=== PATIENT | female | born 1940 | race Caucasian/White ===

== ENCOUNTER → 2016-10-03 | Outpatient (CLI) | payer OTHER, MEDICARE ==
[~2016-10-03] MED LIST: CLX40 PO; COCO1CAP PO; CONJ0.453 PO; CYAN500T13 PO; LEVO100T PO; LPD600 PO; OMEG12006 PO; VITA400C15 PO
== END | disposition home or self-care (01) ==
LOC: C.LAB 12:56
PROVIDERS: ATTEND Internal Medicine
DX: E03.9 Hypothyroidism, unspecified (principal)

== ENCOUNTER → 2016-10-05 | Outpatient (CLI) | payer OTHER, MEDICARE ==
--- NOTE | 2016-10-05 12:37 | DIAGNOSTIC IMAGING REPORT ---
CHEST 2 VIEWS ROUTINE CLINICAL HISTORY: R05 [id number] Current [id number] dyspnea COMPARISON STUDY: 06/25/2015 FINDINGS: Mild chronic interstitial change throughout both hemithoraces. No focal infiltrate. Diaphragms smooth. IMPRESSION: Chronic change. No acute process. Electronically signed by: Dawson Dowell M.D. 10/05/2016 12:35 PM
== END | disposition home or self-care (01) ==
LOC: C.RADBC 12:16
PROVIDERS: ATTEND Internal Medicine
DX: F17.200 Nicotine dependence, unspecified, uncomplicated (principal); R05 Cough

== ENCOUNTER 2016-12-25 16:54 | Emergency (ER) | payer OTHER, MEDICARE ==
[~2016-12-25] VITALS: Ht 160 cm; Wt 66.1 kg
[2016-12-25 17:03] VITALS: BP 134/70; PULSE 75; TEMP 36.9; O2SAT 95; Ht 160 cm; Wt 66.1 kg
== END 2016-12-25 18:50 | disposition left against medical advice (07) ==
LOC: C.EDB 16:55
DX: R10.9 Unspecified abdominal pain (principal)

== ENCOUNTER → 2016-12-27 | Outpatient (CLI) | payer OTHER, MEDICARE ==
[~2016-12-27] MED LIST changes: +OPTIRAY 320 IV PRN
[2016-12-27 16:49] LABS: BASO % 0.8 %; BASO ABS # 0.06 K/uL (0-0.2); COMPLETE YES; EOS % 3.3 %; HEMATOCRIT 39.5 % (37-47); IG% 0.4 %; LYMPH % 28.4 %; LYMPH ABS # 2.25 K/uL (1.2-3.4); MEAN CORPUSCULAR HEMOGLOBIN 30.4 pg (25-34); MEAN CORPUSCULAR HGB CONC 34.2 g/dl (32-36); MEAN PLATELET VOLUME 9.2 fL (7.4-10.4); MONO % 9.2 %; NEUT % 57.9 %; PLATELET COUNT 295 K/uL (130-400); RED BLOOD COUNT 4.44 M/uL (4.2-5.4); WHITE BLOOD COUNT 7.91 K/uL (4.8-10.8)
[2016-12-27 17:08] LABS: BLOOD UREA NITROGEN 17 mg/dl (7-18); BUN/CREATININE RATIO 19.2 (10-20); CALCIUM 9.3 mg/dl (8.5-10.1); CARBON DIOXIDE 30 mmol/L (21-32); CHLORIDE 107 mmol/L (98-107); CREATININE 0.86 mg/dl (0.60-1.20); GLUCOSE 89 mg/dl (70-99); POTASSIUM 4.5 mmol/L (3.5-5.1); SODIUM 141 mmol/L (136-145)
--- NOTE | 2016-12-27 19:15 | DIAGNOSTIC IMAGING REPORT ---
ABDOMEN AND PELVIS CT WITH IV AND ORAL CONTRAST CT DOSE: HISTORY: Pain LAB FIRST, R10.9 Abdominal pain of multiple [id number] TECHNIQUE: Multiaxial CT images of the abdomen and pelvis were performed following the use of intravenous and oral contrast. COMPARISON STUDY: 10/24/2013 FINDINGS: Lung bases are clear. Liver spleen and pancreas are unremarkable. Stable enlargement of the left adrenal. Kidneys enhance uniformly. Small cortical cyst lower pole right kidney unchanged. Bowel pattern is nonobstructive. The appendix is normal. Chronic sigmoid diverticulosis. Increased fecal load within the descending and sigmoid colonic regions. Several small uterine fibroids. Bladder is midline. IMPRESSION: 1. Chronic sigmoid diverticulosis with no evidence for acute diverticulitis. 2. Increased fecal load within the sigmoid 3. Nonobstructive bowel pattern. 4. Stable left adrenal nodule. 5. Small gallstone Electronically signed by: Dawson Dowell M.D. 12/27/2016 7:14 PM Dictated Date/Time: 12/27/2016 7:10 PM
== END | disposition home or self-care (01) ==
LOC: C.CTS 16:07
PROVIDERS: ATTEND Physician Assistant
DX: K57.30 Diverticulosis of large intestine without perforation or abscess without bleeding (principal); E27.8 Other specified disorders of adrenal gland

== ENCOUNTER → 2017-04-17 | Outpatient (CLI) | payer OTHER, MEDICARE ==
[~2017-04-17] MED LIST changes: -OPTIRAY 320 IV PRN
[2017-04-17 09:39] LABS: BASO % 0.8 %; BASO ABS # 0.06 K/uL (0-0.2); COMPLETE YES; EOS % 3.6 %; HEMATOCRIT 42.8 % (37-47); IG% 0.3 %; LYMPH % 34.4 %; LYMPH ABS # 2.51 K/uL (1.2-3.4); MEAN CELL VOLUME 91.3 fL (80-100); MEAN CORPUSCULAR HEMOGLOBIN 29.6 pg (25-34); MEAN CORPUSCULAR HGB CONC 32.5 g/dl (32-36); MEAN PLATELET VOLUME 9.7 fL (7.4-10.4); MONO % 8.5 %; NEUT % 52.4 %; PLATELET COUNT 269 K/uL (130-400); RED BLOOD COUNT 4.69 M/uL (4.2-5.4); WHITE BLOOD COUNT 7.29 K/uL (4.8-10.8)
[2017-04-17 10:08] LABS: ALB/GLOB RATIO 0.9 (0.9-2); ALKALINE PHOSPHATASE 83 U/L (45-117); ALT/SGPT 15 U/L (12-78); AST/SGOT 15 U/L (15-37); BLOOD UREA NITROGEN 21 mg/dl (7-18); BUN/CREATININE RATIO 23.4 (10-20); CALCIUM 9.4 mg/dl (8.5-10.1); CARBON DIOXIDE 30 mmol/L (21-32); CHLORIDE 106 mmol/L (98-107); CHOLESTEROL 196 mg/dl (0-200); CHOLESTEROL/HDL RATIO 3.8; GLUCOSE 86 mg/dl (70-99); HDL CHOLESTEROL 52 mg/dl; POTASSIUM 4.3 mmol/L (3.5-5.1); SODIUM 139 mmol/L (136-145)
[2017-04-17 10:22] LABS: LDL CHOLESTEROL CALCULATED 125 mg/dl; TRIGLYCERIDES 94 mg/dl (0-150); VERY LOW DENSITY LIPOPROT CALC 19 mg/dl
--- NOTE | 2017-04-26 07:23 | CODING QUERY MEDICAL NECESSITY ---
CQSUPPORTING DIAGNOSIS NEEDED A supporting diagnosis is required for the test/procedure performed on this patient in order for us to be reimbursed by the patient's insurance. Please provide a supporting diagnosis for the following test/procedure listed below next to the test name along with your signature. *If there is no additional diagnosis for this patient that would support the following test/procedure please document that below next to the test/procedure. Test(s)/Procedure(s) that require a supporting diagnosis: DOS 04/17/17 VITAMIN D TEST THYROID TEST LIPID TEST Provider Signature: Date: Thank you Nida Amor Health Information Management Once completed, please kindly fax back to [phone] For questions please call [phone]
== END | disposition home or self-care (01) ==
LOC: C.LAB 07:46
PROVIDERS: ATTEND Internal Medicine
DX: K58.9 Irritable bowel syndrome, unspecified (principal); F17.200 Nicotine dependence, unspecified, uncomplicated; E78.1 Pure hyperglyceridemia; E03.9 Hypothyroidism, unspecified; Z13.21 Encounter for screening for nutritional disorder; D35.00 Benign neoplasm of unspecified adrenal gland

== ENCOUNTER → 2017-10-03 | Outpatient (CLI) | payer OTHER, MEDICARE ==
[~2017-10-03] MED LIST changes: +BENZ200C59 PO; +LEVO-366 PO; +MTR600X PO; +SYMIN160 INH; +TRAM-10 PO; +VITA400C28 PO
--- NOTE | 2017-10-03 11:47 | DIAGNOSTIC IMAGING REPORT ---
TWO VIEW CHEST CLINICAL HISTORY: Acute bronchospasm. Cough . FINDINGS: PA and lateral chest radiographs are compared to study dated 10/05/2016. The heart is top normal in size. There is atherosclerotic calcification of the thoracic aorta. Emphysema and chronic interstitial thickening are similar to previous. Patchy airspace consolidation is seen in the right midlung. No pleural effusion is identified. Scarring is noted in the lingula on the lateral projection. There is no pneumothorax. The skeletal structures are osteopenic. The bony thorax appears intact. Surgical clips are identified in the right neck. IMPRESSION: 1. There is patchy airspace consolidation in the right midlung, typical in appearance for pneumonia. Radiographic follow-up to resolution is recommended. 2. Emphysema. Electronically signed by: Jeffry Sotomayor M.D. 10/03/2017 11:46 AM Dictated Date/Time: 10/03/2017 11:41 AM
== END | disposition home or self-care (01) ==
LOC: C.RADBC 10:39
PROVIDERS: ATTEND Internal Medicine
DX: J98.01 Acute bronchospasm (principal); R91.8 Other nonspecific abnormal finding of lung field; J43.9 Emphysema, unspecified

== ENCOUNTER 2017-11-14 15:14 | Emergency (ER) | payer OTHER, MEDICARE ==
[~2017-11-14] VITALS: Ht 161.3 cm; Wt 60.2 kg
[~2017-11-14 15:14] MED LIST changes: -BENZ200C59 PO; -LEVO-366 PO; -MTR600X PO; -SYMIN160 INH; -TRAM-10 PO; -VITA400C28 PO
[2017-11-14 15:19] VITALS: TEMP 36.4; Ht 161.3 cm; Wt 60.2 kg
[2017-11-14] MEDS ORDERED: METHYLPREDNISOLONE 125 MG VIAL IV STA (15:33)
[2017-11-14] MEDS ORDERED: ALBUTEROL HFA 8 GM INHALER INH ONE (15:45)
--- NOTE | 2017-11-14 16:03 | DIAGNOSTIC IMAGING REPORT ---
CHEST ONE VIEW PORTABLE CLINICAL HISTORY: sob dyspnea COMPARISON STUDY: 10/03/2017 FINDINGS: Diffuse bilateral parenchymal fibrosis. Small parenchymal infiltrate medial aspect right base. Pulmonary apices are clear. IMPRESSION: 1. Emphysematous change with diffuse chronic parenchymal fibrotic fibrosis. 2. Small superimposed infiltrate medial right base. The above report was generated using voice recognition software. It may contain grammatical, syntax or spelling errors. Electronically signed by: Dawson Dowell M.D. 11/14/2017 4:02 PM Dictated Date/Time: 11/14/2017 4:01 PM
[2017-11-14 16:04] VITALS: O2SAT 92
[2017-11-14 16:11] LABS: BASO % 0.7 %; BASO ABS # 0.05 K/uL (0-0.2); EOS % 0.1 %; EOS ABS # 0.01 K/uL (0-0.5); HEMATOCRIT 40.7 % (37-47); HEMOGLOBIN 13.6 g/dL (12.0-16.0); LYMPH % 21.9 %; LYMPH ABS # 1.68 K/uL (1.2-3.4); MEAN CELL VOLUME 89.1 fL (80-100); MEAN CORPUSCULAR HEMOGLOBIN 29.8 pg (25-34); MEAN CORPUSCULAR HGB CONC 33.4 g/dl (32-36); MEAN PLATELET VOLUME 9.5 fL (7.4-10.4); MONO % 13.2 %; MONO ABS # 1.01 K/uL (0.11-0.59); NEUT % 64.1 %; NEUT ABS # 4.91 K/uL (1.4-6.5); PLATELET COUNT 177 K/uL (130-400); RED CELL DISTRIBUTION WIDTH CV 14.3 % (11.5-14.5); RED CELL DISTRIBUTION WIDTH SD 46.5 fL (36.4-46.3); WHITE BLOOD COUNT 7.66 K/uL (4.8-10.8)
[2017-11-14 16:26] LABS: ALBUMIN 3.5 gm/dl (3.4-5.0); ALT/SGPT 20 U/L (12-78); BLOOD UREA NITROGEN 15 mg/dl (7-18); CALCIUM 9.1 mg/dl (8.5-10.1); CARBON DIOXIDE 25 mmol/L (21-32); CREATININE 0.96 mg/dl (0.60-1.20); GLUCOSE 96 mg/dl (70-99); POTASSIUM 3.8 mmol/L (3.5-5.1); SODIUM 136 mmol/L (136-145)
[2017-11-14 16:28] LABS: PTT PATIENT 31.5 SECONDS (21.0-31.0)
[2017-11-14] MEDS ORDERED: VITA400C28 PO (16:28)
[2017-11-14 16:31] LABS: ALKALINE PHOSPHATASE 65 U/L (45-117); AST/SGOT 24 U/L (15-37); CKMB 1.3 ng/ml (0.5-3.6); TOTAL PROTEIN 8.1 gm/dl (6.4-8.2)
[2017-11-14] MEDS ORDERED: LEVOFLOXACIN 250 MG TAB PO STA (17:40)
[2017-11-14] MEDS ORDERED: LEVO-366 PO (17:44)
[2017-11-14 17:45] VITALS: BP 117/68; PULSE 83; O2SAT 90
--- NOTE | 2017-11-14 17:45 | EMERGENCY ROOM VISIT NOTE ---
History Report prepared by Rafita: Razia Eric Under the Supervision of: Dr. Dimitri Kamara D.O. First contact with patient: 15:27 Chief Complaint: ILLNESS Stated Complaint: TROUBLE BREATHING, VOMITING, SICK History of Present Illness The patient is a 77 year old female who presents to the Emergency Room with complaints of persistent illness starting several days ago. The patient reports body aches, fatigue, and cough. She had a breathing treatment at her PCP's office [employer] which made her vomit. She notes that her cough has been present since she had pneumonia 1 month ago. She was treated with doxycycline, but her cough persists. She is coughing up yellow sputum. Her temperature was 100 last night. She denies any leg pain or swelling. She does smoke. Source of History: patient Onset: several days ago Position: other (global) Quality: other (illness) Timing: other (persistent) Associated Symptoms: + cough, + fatigue Review of Systems See HPI for pertinent positives & negatives. A total of 10 systems reviewed and were otherwise negative. Past Medical & Surgical Medical Problems: (1) Pneumonia Family History No pertinent family history stated. Social History Smoking Status: Current Every Day Smoker Alcohol Use: none Marital Status: Occupation Status: retired Current/Historical Medications Scheduled Citalopram (Citalopram Hydrobromide), MG PO QAM Cyanocobalamin (Vitamin B12 500MCG), 1,000 MCG PO QAM Gemfibrozil (Gemfibrozil), 1 TAB PO BID Levothyroxine Sodium (Synthroid), 100 MCG PO QAM [place]-3 Fatty Acids ([place] 3), PO HS Vitamin E (Alph-E), 800 INTER.UNIT PO HS Allergies Coded Allergies: Clarithromycin (Verified Adverse Reaction, Mild, N/V, 11/14/17) Hydrocodone (Verified Adverse Reaction, Mild, N/V, 11/14/17) Venlafaxine (Verified Adverse Reaction, Mild, N/V, 11/14/17) Physical Exam Vital Signs Date Time Temp Pulse Resp B/P (MAP) Pulse Ox O2 Delivery O2 Flow Rate FiO2 11/14/17 16:44 75 16 122/63 95 Nasal Cannula 2.0 11/14/17 16:35 76 11/14/17 16:04 92 Nasal Cannula 2.0 11/14/17 15:54 88 Room Air 11/14/17 15:19 36.4 85 16 126/68 90 Room Air Physical Exam CONSTITUTIONAL/VITAL SIGNS: Reviewed / noted above. GENERAL: Non-toxic in appearance. INTEGUMENTARY: Warm, dry, and [place]. HEAD: Normocephalic. EYES: without scleral icterus or trauma. ENT/OROPHARYNX: clear and moist. LYMPHADENOPATHY/NECK: Is supple without lymphadenopathy or meningismus. RESPIRATORY: Diminished breath sounds bilaterally. Scattered wheezes. CARDIOVASCULAR: Regular rate and rhythm. GI/ABDOMEN: Soft and nontender. No organomegaly or pulsatile mass. No rebound or guarding. Normal bowel sounds. EXTREMITIES: Warm and well perfused. BACK: No CVA tenderness. NEUROLOGICAL: Intact without focal deficits. PSYCHIATRIC: normal affect. MUSCULOSKELETAL: Normally developed with good muscle tone. Medical Decision & Procedures ER Provider Diagnostic Interpretation: X ray results and stated below per my interpretation and radiology interpretation. CHEST ONE VIEW PORTABLE CLINICAL HISTORY: sob dyspnea COMPARISON STUDY: 10/03/2017 FINDINGS: Diffuse bilateral parenchymal fibrosis. Small parenchymal infiltrate medial aspect right base. Pulmonary apices are clear. IMPRESSION: 1. Emphysematous change with diffuse chronic parenchymal fibrotic fibrosis. 2. Small superimposed infiltrate medial right base. The above report was generated using voice recognition software. It may contain grammatical, syntax or spelling errors. Electronically signed by: Dawson Dowell M.D. 11/14/2017 4:02 PM Dictated Date/Time: 11/14/2017 4:01 PM Laboratory Results 11/14/17 15:56 Red Blood Count 4.57, Mean Corpuscular Volume 89.1, Mean Corpuscular Hemoglobin 29.8, Mean Corpuscular Hemoglobin Concent 33.4, Mean Platelet Volume 9.5, Neutrophils (%) (Auto) 64.1, Lymphocytes (%) (Auto) 21.9, Monocytes (%) (Auto) 13.2, Eosinophils (%) (Auto) 0.1, Basophils (%) (Auto) 0.7, Neutrophils # (Auto ) 4.91, Lymphocytes # (Auto) 1.68, Monocytes # (Auto) 1.01, Eosinophils # (Auto ) 0.01, Basophils # (Auto) 0.05 11/14/17 15:56 Test 11/14/17 15:56 White Blood Count 7.66 K/uL (4.8-10.8) Red Blood Count 4.57 M/uL (4.2-5.4) Hemoglobin 13.6 g/dL (12.0-16.0) Hematocrit 40.7 % (37-47) Mean Corpuscular Volume 89.1 fL (80-100) Mean Corpuscular Hemoglobin 29.8 pg (25-34) Mean Corpuscular Hemoglobin Concent 33.4 g/dl (32-36) Platelet Count 177 K/uL (130-400) Mean Platelet Volume 9.5 fL (7.4-10.4) Neutrophils (%) (Auto) 64.1 % Lymphocytes (%) (Auto) 21.9 % Monocytes (%) (Auto) 13.2 % Eosinophils (%) (Auto) 0.1 % Basophils (%) (Auto) 0.7 % Neutrophils # (Auto) 4.91 K/uL (1.4-6.5) Lymphocytes # (Auto) 1.68 K/uL (1.2-3.4) Monocytes # (Auto) 1.01 K/uL (0.11-0.59) Eosinophils # (Auto) 0.01 K/uL (0-0.5) Basophils # (Auto) 0.05 K/uL (0-0.2) RDW Standard Deviation 46.5 fL (36.4-46.3) RDW Coefficient of Variation 14.3 % (11.5-14.5) Immature Granulocyte % (Auto) 0.0 % Immature Granulocyte # (Auto) 0.00 K/uL (0.00-0.02) Prothrombin Time 10.7 SECONDS (9.0-12.0) Prothromb Time International Ratio 1.0 (0.9-1.1) Activated Partial Thromboplast Time 31.5 SECONDS (21.0-31.0) Partial Thromboplastin Ratio 1.2 Anion Gap 8.0 mmol/L (3-11) Est Creatinine Clear Calc Drug Dose 42.8 ml/min Estimated GFR () 67.1 Estimated GFR (Non- 57.9 BUN/Creatinine Ratio 15.8 (10-20) Calcium Level 9.1 mg/dl (8.5-10.1) Total Bilirubin 0.4 mg/dl (0.2-1) Aspartate Amino Transf (AST/SGOT) 24 U/L (15-37) Alanine Aminotransferase (ALT/SGPT) 20 U/L (12-78) Alkaline Phosphatase 65 U/L (45-117) Total Creatine Kinase 74 U/L (26-192) Creatine Kinase MB 1.3 ng/ml (0.5-3.6) Creatine Kinase MB Ratio 1.8 (0-3.0) Troponin I < 0.015 ng/ml (0-0.045) Total Protein 8.1 gm/dl (6.4-8.2) Albumin 3.5 gm/dl (3.4-5.0) Globulin 4.6 gm/dl (2.5-4.0) Albumin/Globulin Ratio 0.8 (0.9-2) Laboratory results as stated above per my review. Medications Administered Medications (Trade) Dose Ordered Sig/[place] Route Start Time Stop Time Status Last Admin Dose Admin Methylprednisolone Sodium Succinate (Solu-Medrol IV) 125 mg NOW STAT IV 11/14/17 15:33 11/14/17 15:36 DC 11/14/17 15:33 125 MG Albuterol (Ventolin Hfa Inhaler) 2 puffs NOW ONCE INH 11/14/17 15:45 11/14/17 15:46 DC 11/14/17 15:45 2 PUFFS ECG Per My Interpretation Indication: SOB/dyspnea Rate (beats per minute): 80 Rhythm: normal sinus Findings: no ectopy, other (no ST elevation, no ST depression) ED Course 1529: Previous medical records were reviewed. The patient was evaluated in room B7. A complete history and physical examination was performed. 1533: Solu-Medrol IV 125 mg IV. 1545: Albuterol 2 puffs INH. 1737: On reevaluation, the patient is resting comfortably. I discussed the results and findings with the patient. She verbalized agreement of the treatment plan. She was discharged home. Medical Decision the differential was considered includes acute myocardial infarction, acute coronary syndrome, myocarditis, pericarditis, pericardial effusions /tamponade, esophageal perforation, pulmonary embolism, pneumonia, pneumothorax, cardiomyopathy, congestive heart, anemia , COPD/asthma exacerbation. This is a 77-year-old female who presents to the ED with a chief complaint of a persistent cough, generalized soreness, tiredness and achiness. The patient states that her symptoms have become present over the past several days. She was treated for pneumonia back in mid October and had a chest x-ray at that time that revealed a right sided pneumonia. She had a fever earlier this week according to the patient's daughter. She did finish a course of doxycycline for her pneumonia. She reports a cough that is productive for yellow sputum that is essentially been present for month. Her physical exam revealed some diminished breath sounds bilaterally and scattered wheezes. She is a current smoker. She is in no respiratory distress. Oxygen saturations were 90% and the other vital signs were normal. The EKG reveals a normal sinus rhythm at a rate of 80. CBC is normal, complete metabolic panel was normal, troponin is negative, chest x-ray reveals a small infiltrate in the right base. The patient was told the results. She was given albuterol MDI with spacer here. She was given IV Solu-Medrol. She was given Levaquin p.o. She was discharged on Levaquin. She did not want prednisone. She is felt to be stable for discharge. Medication Reconcilliation Current Medication List: was personally reviewed by me Blood Pressure Screening Patient's blood pressure: Normal blood pressure Blood pressure disposition: Did not require urgent referral Impression Primary Impression: RLL pneumonia Scribe Attestation The scribe's documentation has been prepared under my direction and personally reviewed by me in its entirety. I confirm that the note above accurately reflects all work, treatment, procedures, and medical decision making performed by me. Departure Information Dispostion Home / Self-Care Prescriptions Levofloxacin (Levaquin) 500 Mg Tab 500 MG PO DAILY for 9 Days, #9 TAB Prov: Dimitri Kamara D.O. 11/14/17 Referrals Zion Bartholomew M.D. (PCP) Patient Instructions My [facility] Additional Instructions Levaquin as prescribed. Albuterol inhaler: 2 puffs every 2-4 hours as needed for shortness of breath or wheezing. Follow-up with your doctor for further care and evaluation in 3-5 days. Return to the emergency department for worsening or new symptoms or any concerns. You have been examined and treated today on an emergency basis only. This is not a substitute for, or an effort to provide, complete comprehensive medical care. It is impossible to recognize and treat all injuries or illnesses in a single emergency department visit. It is therefore important that you follow up closely with your doctor. Call as soon as possible for an appointment.
== END 2017-11-14 17:51 | disposition home or self-care (01) ==
LOC: C.EDB 15:15
DX: J18.9 Pneumonia, unspecified organism (principal); F17.210 Nicotine dependence, cigarettes, uncomplicated; Z79.899 Other long term (current) drug therapy; Z88.8 Allergy status to other drugs, medicaments and biological substances; Z88.1 Allergy status to other antibiotic agents; Z88.5 Allergy status to narcotic agent

== ENCOUNTER 2017-12-06 21:27 | Emergency (ER) | payer OTHER, MEDICARE ==
[~2017-12-06] VITALS: Ht 161.3 cm; Wt 60.0 kg
[~2017-12-06 21:27] MED LIST changes: -COCO1CAP PO; -CONJ0.453 PO; -VITA400C15 PO; +VITA400C28 PO
[2017-12-06 21:29] VITALS: Ht 161.3 cm; Wt 60.0 kg
--- NOTE | 2017-12-06 22:24 | DIAGNOSTIC IMAGING REPORT ---
HEAD WITHOUT CONTRAST (CT) CLINICAL HISTORY: 77 years-old Female with Fell, struck head, light headed, nausea. Acute head injury with nausea TECHNIQUE: Multiple axial CT images of the head were obtained without contrast. A dose lowering technique was utilized adhering to the principles of ALARA. CT DOSE: 871.00 mGy.cm COMPARISON: CT cervical spine of same day. FINDINGS: No acute intracranial hemorrhage, midline shift, intracranial mass, hydrocephalus, territorial ischemia or abnormal extra-axial collection. Moderate atrophy. Ill-defined areas of low-attenuation within the periventricular white matter suggest chronic microvascular ischemic changes. Cerebral vascular calcifications are seen at the level of the skull base. The calvarium is intact. The paranasal sinuses, mastoid air cells, and middle ear cavities are clear. IMPRESSION: No acute intracranial abnormality or calvarial fracture. The above report was generated using voice recognition software. It may contain grammatical, syntax or spelling errors. Electronically signed by: Thierno Brown M.D. 12/06/2017 10:23 PM Dictated Date/Time: 12/06/2017 10:21 PM
[2017-12-06] MEDS ORDERED: BENZ200C59 PO (22:39)
[2017-12-06] MEDS ORDERED: SYMIN160 INH (22:39)
--- NOTE | 2017-12-06 22:42 | DIAGNOSTIC IMAGING REPORT ---
L KNEE 3 VIEWS HISTORY: 77 years-old Female L knee pain acute left knee pain COMPARISON: None available TECHNIQUE: 3 views of the left knee FINDINGS: Bones appear mildly demineralized. At least moderate patellofemoral with mild medial and lateral compartment osteoarthritis. Moderate joint effusion with fat fluid level compatible with hemarthrosis. No acute fracture or subluxation is identified on these images. Mild soft tissue swelling about the knee. Peripheral vascular disease. IMPRESSION: 1. Moderate joint effusion with fat fluid level compatible with hemarthrosis. No acute fracture or dislocation is identified. These findings are compatible with a radiographically occult fracture. Further evaluation with cross-sectional imaging is advised. 2. 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 The above report was generated using voice recognition software. It may contain grammatical, syntax or spelling errors. Electronically signed by: Thierno Brown M.D. 12/06/2017 10:40 PM Dictated Date/Time: 12/06/2017 10:37 PM
--- NOTE | 2017-12-06 22:58 | DIAGNOSTIC IMAGING REPORT ---
CERVICAL SPINE W/O CLINICAL HISTORY: 77 years-old Female with Fell, struck head, light headed, nausea. Acute head injury with nausea COMPARISON: CT head of same day. TECHNIQUE: Multiple axial CT images of the cervical spine were obtained without contrast. A dose lowering technique was utilized adhering to the principles of ALARA. FINDINGS: No acute cervical spine fracture identified. The bones appear mildly demineralized. Moderate to severe intervertebral disc space narrowing with endplate spurring is noted at C5-C6 and C6-C7. 2 mm anterolisthesis C4 on C5 is likely degenerative in nature. Moderate multilevel facet arthropathy with moderate to severe facet arthrosis on the right at C3-C4 and C4-C5. No definite high-grade central canal narrowing. Evaluation of the central canal and neuroforamen is better assessed by MRI. Multilevel foraminal narrowing appears moderate bilaterally at C5-C6. No prevertebral soft tissue swelling. Soft tissues are unremarkable. Emphysematous changes of the lung apices. No pneumothorax. Posterior changes with surgical clips noted within the right neck. IMPRESSION: 1. No acute fracture or subluxation. 2. Multilevel discogenic degenerative changes and facet arthropathy as above. 2 mm anterolisthesis C4 on C5 is likely secondary to long-standing facet arthropathy. 3. Emphysema. The above report was generated using voice recognition software. It may contain grammatical, syntax or spelling errors. Electronically signed by: Thierno Brown M.D. 12/06/2017 10:56 PM Dictated Date/Time: 12/06/2017 10:52 PM
[2017-12-07] MEDS ORDERED: IBUPROFEN 600 MG TAB PO STA (00:08)
[2017-12-07 00:31] VITALS: TEMP 37.3
[2017-12-07] MEDS ORDERED: TRAMADOL HCL 50 MG HOME PACK PO STA (00:35)
[2017-12-07] MEDS ORDERED: TRAM-10 PO (00:41)
[2017-12-07] MEDS ORDERED: MTR600X PO (00:41)
--- NOTE | 2017-12-07 00:43 | EMERGENCY ROOM VISIT NOTE ---
History First contact with patient: 21:32 Chief Complaint: FALL Stated Complaint: FELL ON KNEE AFTER TRIPPING OVER A RUG History of Present Illness The patient is a 77 year old female who presents to the Emergency Room via private vehicle with complaints of "fell on knee after tripping over a rug". The patient states that earlier today, approximately 30 minutes prior to arrival she was at a grocery store, when there was a carpet that was rolled up and she turned, and fell striking her knee and then struck the back of her head. She denies loss of consciousness but notes nausea and lightheadedness. There are no changes in vision. She notes inability to bear weight on the left knee secondary to pain. She rates the pain as a 4/10 at rest, and 7/10 with moving. Review of Systems A complete 10-point Review of Systems was discussed with the patient, with pertinent positives and negatives listed in the History of Present Illness. All remaining Review of Systems questions can be considered negative unless otherwise specified. Past Medical/Surgical History Medical Problems: (1) Pneumonia Social History Smoking Status: Current Every Day Smoker Alcohol Use: none Marital Status: Occupation Status: retired Current/Historical Medications Scheduled Benzonatate (Tessalon Perles), 200 MG PO prn ud Budesonide/Formoterol Fumarate (Symbicort 160/4.5 Inhaler), 1 PUFF INH BID Citalopram (Citalopram Hydrobromide), MG PO QAM Cyanocobalamin (Vitamin B12 500MCG), 1,000 MCG PO QAM Gemfibrozil (Gemfibrozil), 1 TAB PO BID Ibuprofen (Ibuprofen), 1 TAB PO Q8 Levothyroxine Sodium (Synthroid), 100 MCG PO QAM Waco-3 Fatty Acids ([place] 3), PO HS Vitamin E (Alph-E), 800 INTER.UNIT PO HS Scheduled PRN Tramadol (Ultram), 1 TAB PO TID PRN for Pain Physical Exam Vital Signs Date Time Temp Pulse Resp B/P (MAP) Pulse Ox O2 Delivery O2 Flow Rate FiO2 12/07/17 00:57 68 20 136/74 99 12/07/17 00:31 37.3 102 20 129/79 99 Room Air 12/06/17 23:37 82 20 140/74 98 Room Air 12/06/17 21:29 36.6 82 18 138/68 95 Room Air Physical Exam VITAL SIGNS - Vital signs and nursing notes were reviewed. Stable. GENERAL -77-year-old female appearing her stated age who is in no acute distress. Communicates well with provider and answers questions appropriately. SKIN - Without rashes. No petechial rashes. There is a minimal amount of erythema overlying the left anterior patella. No breaks in the integument. HEAD - NC/AT. No donnelly signs or raccoon's eyes. EYES - PERRL with EOMI bilaterally. Sclera anicteric. EARS - No deformities of external structures noted on gross examination bilaterally. No blood from the ear canals. NOSE - Midline and without cyanosis. No epistaxis or purulent drainage noted. MOUTH/OROPHARYNX - Without perioral cyanosis. NECK - Neck with FROM. Supple to palpation. Minimal neck tenderness. LUNGS - Chest wall symmetric without accessory muscle use, intercostals retractions, or central cyanosis. Normal vesicular breath sounds CTA B/L. No wheezes, rales, or rhonchi appreciated. CARDIAC - RRR with S1/S2. No murmur, rubs, or gallops appreciated. EXTREMITIES - No clubbing or peripheral cyanosis. No pretibial edema present. Tenderness to palpation overlying left anterior knee joint. No laxity appreciated. No breaks in integument. Patient is neurovascularly intact in this region. NEUROVASCULAR: Alert and oriented. Cranial nerves grossly intact. Medical Decision & Procedures ER Provider Diagnostic Interpretation: HEAD WITHOUT CONTRAST (CT) CLINICAL HISTORY: 77 years-old Female with Fell, struck head, light headed, nausea. Acute head injury with nausea TECHNIQUE: Multiple axial CT images of the head were obtained without contrast. A dose lowering technique was utilized adhering to the principles of ALARA. CT DOSE: 871.00 mGy.cm COMPARISON: CT cervical spine of same day. FINDINGS: No acute intracranial hemorrhage, midline shift, intracranial mass, hydrocephalus, territorial ischemia or abnormal extra-axial collection. Moderate atrophy. Ill-defined areas of low-attenuation within the periventricular white matter suggest chronic microvascular ischemic changes. Cerebral vascular calcifications are seen at the level of the skull base. The calvarium is intact. The paranasal sinuses, mastoid air cells, and middle ear cavities are clear. IMPRESSION: No acute intracranial abnormality or calvarial fracture. The above report was generated using voice recognition software. It may contain grammatical, syntax or spelling errors. Electronically signed by: Thierno Brown M.D. 12/06/2017 10:23 PM Dictated Date/Time: 12/06/2017 10:21 PM CERVICAL SPINE W/O CLINICAL HISTORY: 77 years-old Female with Fell, struck head, light headed, nausea. Acute head injury with nausea COMPARISON: CT head of same day. TECHNIQUE: Multiple axial CT images of the cervical spine were obtained without contrast. A dose lowering technique was utilized adhering to the principles of ALARA. FINDINGS: No acute cervical spine fracture identified. The bones appear mildly demineralized. Moderate to severe intervertebral disc space narrowing with endplate spurring is noted at C5-C6 and C6-C7. 2 mm anterolisthesis C4 on C5 is likely degenerative in nature. Moderate multilevel facet arthropathy with moderate to severe facet arthrosis on the right at C3-C4 and C4-C5. No definite high-grade central canal narrowing. Evaluation of the central canal and neuroforamen is better assessed by MRI. Multilevel foraminal narrowing appears moderate bilaterally at C5-C6. No prevertebral soft tissue swelling. Soft tissues are unremarkable. Emphysematous changes of the lung apices. No pneumothorax. Posterior changes with surgical clips noted within the right neck. IMPRESSION: 1. No acute fracture or subluxation. 2. Multilevel discogenic degenerative changes and facet arthropathy as above. 2 mm anterolisthesis C4 on C5 is likely secondary to long-standing facet arthropathy. 3. Emphysema. The above report was generated using voice recognition software. It may contain grammatical, syntax or spelling errors. Electronically signed by: Thierno Brown M.D. 12/06/2017 10:56 PM Dictated Date/Time: 12/06/2017 10:[address] extremity left lower: Nondisplaced fracture in the left medial tibial plateau. Moderate left lipohemarthrosis. Prominent osteopenia. No dislocation. Degenerative changes most prominent in the patellofemoral compartment. Mild atherosclerotic changes of the vasculature. Nevaeh Roblero M.D. Medications Administered Medications (Trade) Dose Ordered Sig/[place] Route Start Time Stop Time Status Last Admin Dose Admin Ibuprofen (Motrin Tab) 600 mg NOW STAT PO 12/07/17 00:08 12/07/17 00:10 DC 12/07/17 00:08 600 MG Tramadol HCl (Ultram Home Pack) 1 homepack UD STAT PO 12/07/17 00:35 12/07/17 00:39 DC 12/07/17 00:[address] [facility] Medical Decision Patient was seen and evaluated as above. She presents to us today status post fall with head, neck and left knee pain. Because of the patient's mechanism of injury CT scan was obtained of the head and neck. These are negative for acute component. Knee x-ray reveals concern for occult fracture. CT was obtained. There is a nondisplaced medial tibial plateau fracture. She will be splinted in a knee immobilizer, and be nonweightbearing with crutches. She was given ibuprofen per her request here. She does request a prescription for ibuprofen. I did review her previous GFR in our system, and will provide her 600 mg every 8. I informed her that this is only to be taken as needed, and is to be taken with food. I informed her that this does carry the risk of potential gastric problems and kidney problems. I also provided her a prescription for tramadol. This was discussed with the patient and no red flags were identified in the [place] drug monitoring system. She is to follow with her established orthopedic surgeon, Dr. Adair. The patient was educated upon management, had questions answered prior to discharge, and was discharged home in good condition. Case was discussed with the attending physician I attest that I have personally reviewed the patient medication list. The patient's blood pressure was reviewed and was found to be Elevated likely secondary to situation In the evaluation and treatment of this patient, the following differential diagnoses were considered: Concussion, Contrecoup Injury, Brain Tumor, Depression, Encephalitis, Hypothyroidism, Meningitis, CVA, TIA, Migraine, Cluster Headache, Intracranial Abnormality, Intracranial Hemorrhage, Subdural Hematoma, Subarachnoid Hemorrhage, Hydrocephalus, Musculoskeletal Strain, Discitis, Cervical Spine Fracture, Cervical Spine Dislocation, Cervical Spine Subluxation, Cervical Spondylosis, Fibromyalgia, Osteoarthritis, Polymyalgia Rheumatica, Psychogenic Pain Disorder, Tumor of Soft Tissue or Spine, Patellar Fracture, Tibial Plateau Fracture, Distal Femur Fracture, ACL Injury, PCL Injury , Collateral Ligament Injury, Pes Anserine Bursitis, Maisonneuve Fracture. Impression Primary Impression: Fall Additional Impression: Left medial tibial plateau fracture Departure Information Dispostion Home / Self-Care Condition GOOD Prescriptions Tramadol (Ultram) 50 Mg Tab 1 TAB PO TID Y for Pain for 3 Days, #9 TAB for initial treatment Prov: Sathya Dobson PA-C 12/07/17 Ibuprofen (Ibuprofen) 600 Mg Tab 1 TAB PO Q8 for 5 Days, #15 TABS Prov: Sathya Dobson PA-C 12/07/17 Referrals Zion Bartholomew M.D. (PCP) Douglas Hollis M.D. Patient Instructions [facility] Additional Instructions You have been treated in the Emergency Department for Knee Pain. (tibial plateau fracture, medial) of left leg. You have been prescribed Tramadol to be used for pain control. This is a narcotic medication. You cannot drive or consume alcohol while on this medicine. This medicine should only be used for pain that cannot be controlled with [id number] pain medicines. Please do not take with Tylenol as it already contains this. Ibuprofen, 600 mg tablet every 8 hours. Do not take with other NSAIDs like ibuprofen, Motrin, naproxen, among others. Please take this with food. Please be careful as this can cause stomach issues, and can hurt the kidneys if taken for longer periods of time. If this is a recent injury (<24 hrs), ice can be applied to the area of pain for the first 3 days to help decrease pain and inflammation. Ice massages can be performed by freezing water in a paper cup, peeling back the cup to expose the ice and then massaging over the affected area. You have been provided the number for an Orthopaedic Surgeon. You should call this number as soon as possible to establish a follow-up visit from today's Emergency Department visit. Keep the knee brace in place until cleared by Orthopedics. Use the crutches you have been provided to keep ALL weight off of the knee until weight bearing is tolerable. Return to the Emergency Department if your current symptoms worsen despite treatment course outlined above. Problem Qualifiers
[2017-12-07 00:57] VITALS: BP 136/74; PULSE 68; O2SAT 99
--- NOTE | 2017-12-07 06:52 | DIAGNOSTIC IMAGING REPORT ---
L LOWER EXTREMITY WITHOUT CT DOSE: 231.08 mGy.cm HISTORY: Trauma L knee pain, occult fracture suspected TECHNIQUE: Multiaxial CT images of the left knee were performed and reformatted in the sagittal and coronal plane without the use of contrast. A dose lowering technique was utilized adhering to the principles of ALARA. COMPARISON: None. FINDINGS: Nondisplaced cortical fracture medial aspect medial tibial plateau. No evidence for depression. No significant distraction. Considerable degenerative change of all major joint compartments. Joint effusion with a fat fluid level. Severe degenerative change of the patellar articulating surface. Potential cortical fracture of the inferior patellar substance. Osteopenia. IMPRESSION: 1. Nondisplaced cortical fracture medial aspect medial tibial plateau. 2. Probable nondisplaced cortical hairline fracture inferior patella. 3. Significant degenerative change all major joint compartments. 4. Osteopenia. 5. Small joint effusion with fat fluid level. The above report was generated using voice recognition software. It may contain grammatical, syntax or spelling errors. Electronically signed by: Dawson Dowell M.D. 12/07/2017 6:51 AM Dictated Date/Time: 12/07/2017 6:48 AM
== END 2017-12-07 00:58 | disposition home or self-care (01) ==
LOC: C.EDB 21:28 → C.EDC 12-07 00:58
DX: S82.135A Nondisplaced fracture of medial condyle of left tibia, initial encounter for closed fracture (principal); W22.8XXA Striking against or struck by other objects, initial encounter; Z79.899 Other long term (current) drug therapy; F17.200 Nicotine dependence, unspecified, uncomplicated; Y92.512 Supermarket, store or market as the place of occurrence of the external cause

== ENCOUNTER → 2018-01-16 | Outpatient (CLI) | payer OTHER, MEDICARE ==
[~2018-01-16] MED LIST changes: +BENZ200C59 PO; +MTR600X PO; +SYMIN160 INH
--- NOTE | 2018-01-16 14:39 | DIAGNOSTIC IMAGING REPORT ---
CHEST 2 VIEWS ROUTINE HISTORY: 77 years-old Female R05 [id number] acute cough COMPARISON: Chest radiograph 11/14/2017 TECHNIQUE: PA and lateral views of the chest FINDINGS: Cardiomediastinal and hilar silhouettes are within normal limits. Atherosclerosis of the aorta. Lungs are hyperinflated with diaphragmatic flattening and increased lucency suggesting emphysema. Areas of chronic reticular opacities appear unchanged. No pneumothorax, pleural effusion, focal airspace consolidation or overt pulmonary edema. Unchanged 7 mm circumscribed lucent lesion of the proximal right humerus. Surgical clips project over the right neck. IMPRESSION: No acute process. The above report was generated using voice recognition software. It may contain grammatical, syntax or spelling errors. Electronically signed by: Thierno Brown M.D. 01/16/2018 2:37 PM Dictated Date/Time: 01/16/2018 2:36 PM
== END | disposition home or self-care (01) ==
LOC: C.RAD1850 14:19
PROVIDERS: ATTEND Physician Assistant
DX: R05 Cough (principal)

== ENCOUNTER 2019-06-30 12:09 | Inpatient (IN) ==
[2019-06-30] MEDS ORDERED: fentaNYL citrate 100 MCG/2 ML VIAL IV STA (12:57)
[2019-06-30] MEDS ORDERED: ACETAMINOPHEN 1,000 MG/100 ML VIAL IV STA (12:58)
[2019-06-30 13:54] LABS: Basophils # (auto) 0.04 K/uL (0-0.2); Basophils % (auto) 0.2 %; Eosinophils # (auto) 0.37 K/uL (0-0.5); Hematocrit (blood only) 39.1 % (37-47); Immature Granulocytes # (auto) 0.06 K/uL (0.00-0.02); Immature Granulocytes % (auto) 0.3 %; Lymphocytes # (auto) 1.19 K/uL (1.2-3.4); Lymphocytes % (auto) 6.3 %; Mean Corpuscular Hgb Conc 33.2 g/dL (32-36); Mean Corpuscular Volume 93.3 fL (80-100); Mean Platelet Volume 9.5 fL (7.4-10.4); Monocytes # (auto) 1.31 K/uL (0.11-0.59); Neutrophils # (auto) 15.84 K/uL (1.4-6.5); Neutrophils % (auto) 84.2 %; Platelet Count 212 K/uL (130-400); RDW Coefficient of Variation 13.5 % (11.5-14.5); RDW Standard Deviation 46.1 fL (36.4-46.3); Red Blood Count 4.19 M/uL (4.2-5.4); White Blood Count 18.81 K/uL (4.8-10.8)
[2019-06-30 14:02] LABS: Prothrombin Time 10.6 Seconds (9.0-12.0)
--- NOTE | 2019-06-30 14:06 | XRay Report ---
XR chest 1V portable HISTORY: Left hip pain. fall COMPARISON: Chest 11/14/2017. FINDINGS: No pneumothorax. No pleural effusions. No focal lung consolidations to suggest pneumonia. T he heart is stable in size. Mild diffuse interstitial thickening, unchanged. This is likely chronic. IMPRESSION: No significant change compared to the prior study. No acute process. Stable mild chronic interstitial thickening. Electronically signed by: Bao Alcala M.D. 06/30/2019 2:05 PM
[2019-06-30 14:09] LABS: BUN Creatinine Ratio 26.4 (10-20); Blood Urea Nitrogen 29 mg/dl (7-18); Calcium 10.2 mg/dl (8.5-10.1); Carbon Dioxide 29 mmol/L (21-32); Chloride 105 mmol/L (98-107); Creatinine Clr Calc Pharmacy 36.8 ml/min; Est GFR (African American) 56.5; Est GFR (Non-African American) 48.7; Glucose 111 mg/dl (70-99); Potassium 4.3 mmol/L (3.5-5.1); Sodium 138 mmol/L (136-145)
[2019-06-30 14:14] LABS: Troponin I < 0.015 ng/ml (0-0.045)
--- NOTE | 2019-06-30 14:20 | XRay Report ---
XR hip LT 2V w pelvis CLINICAL HISTORY: fall, pain, ?frx COMPARISON: CT of the abdomen and pelvis December 27, 2016. FINDINGS: The sacroiliac joints and symphysis pubis are intact. There is subtle cortical irregularit y and equivocal lucency projecting of the left femoral neck. IMPRESSION: Equivocal nondisplaced left femoral neck fracture. This is likely artifactual however a C T of the left hip is recommended. Electronically signed by: лАександр Garay M.D. 06/30/2019 2:18 PM
[2019-06-30] MEDS ORDERED: IOVERSOL 100ml IV PRN (14:37)
--- NOTE | 2019-06-30 14:42 | CT Scan Report ---
CT head/brain wo con CLINICAL HISTORY: Head pain status post trauma COMPARISON STUDY: 12/06/2017 TECHNIQUE: Axial CT of the brain is performed from the vertex to the skull base. IV contrast was not administered for this examination. A dose lowering technique was utilized adhering to the principles of ALARA. CT DOSE: 1472.53 mGy.cm FINDINGS: No intra or extra-axial mass lesions are visualized. There is no CT evidence of acute cortical infarc tion. There is no evidence of midline shift. There is no acute hemorrhage. No calvarial fractures ar e visualized. There are minor white matter hypodensities likely on a small vessel basis. There is no evidence of pathologic ventricular dilatation. The right maxilla sinus is somewhat hypoplastic. There is no evidence of acute sinusitis. IMPRESSION: No acute intracranial findings Electronically signed by: Patrick Shields M.D. 06/30/2019 2:41 PM
--- NOTE | 2019-06-30 14:55 | CT Scan Report ---
CT abd pelvis IV con only CLINICAL HISTORY: Left-sided pain status post trauma. COMPARISON STUDY: November 2016 TECHNIQUE: The patient was scanned in a dynamic helical fashion during intravenous administration of 94 cc of Optiray 320. A dose lowering technique was utilized adhering to the principles of ALARA. CT DOSE: FINDINGS: Lower chest: There is a new 9 mm right middle lobe pulmonary nodule abutting the diaphragmatic surfac e. Liver: The contrast-enhanced liver is normal in size, contour, and attenuation. There is no intrahepa tic biliary ductal dilatation. The hepatic veins and portal veins are patent. Gallbladder: Cholelithiasis Spleen: Normal in size and attenuation. Pancreas: Unremarkable. Adrenal glands: There is stable 22 mm left adrenal nodule Kidneys: There is a 16 mm lower pole right renal cyst. Additional subcentimeter hypodensities likely represent additional cysts Bowel: There is colonic diverticulosis. There is equivocal minimal diverticulitis at the descending s igmoid junction. The appendix appears normal. There are no transition zones indicate bowel obstructio n. Peritoneum: There is no intraperitoneal free air or abdominal ascites. Vasculature: The abdominal aorta is normal in course and caliber. Adenopathy: None. Pelvic viscera: There are calcified uterine fibroids. Skeletal structures: No destructive osseous lesions are seen. IMPRESSION: 1. Extensive colonic diverticulosis with suspected minimal diverticulitis at the descending sigmoid j unction 2. No evidence of bowel obstruction. No evidence of free air 3. Normal appendix 4. Cholelithiasis 5. New 9 mm right middle lobe pulmonary nodule. Further workup is indicated. Please refer to below summary of Fleischner criteria recommendations for follow-up of incidental CT n odules ([place] Ernst, Guidelines for management of small pulmonary nodules detected on CT scans: A sta tement from the Fleischner Society, Radiology 237: [phone].) SOLID NODULES Solitary nodule size: <6 mm * low risk patients: no follow-up needed * high risk patients: optional CT at 12 months Solitary nodule size: 6-8 mm * low risk patients: follow-up at 6-12 months, then consider further follow-up at 18-24 months * high risk patients: initial follow-up CT at 6-12 months and then at 18-24 months if no change Solitary nodule size: >8 mm * either low or high risk patients - consider follow-up CT at 3 months, and/or CT-PET, and/or biopsy Multiple nodules size: <6 mm * low risk patients: no routine follow-up * high risk patients: optional CT at 12 months Multiple nodules size: 6-8 mm * low risk patients: follow-up at 3-6 months, then consider further follow-up at 18-24 months * high risk patients: follow-up at 3-6 months, then at 18-24 months if no change Multiple nodules size: >8 mm * low risk patients: follow-up at 3-6 months, then consider further follow-up at 18-24 months * high risk patients: follow-up at 3-6 months, then at 18-24 months if no change Note: newly detected indeterminate nodule in persons 35 years of age or older. * low risk patients: minimal or absent history of smoking and/or other known risk factors * high risk patients: history of smoking or of other known risk factors (e.g. first degree relative with lung cancer, or exposure to asbestos, radon, uranium) * if a nodule up to 8 mm is partly solid or is ground glass further follow-up is required after 24 m onths to exclude possible slow growing adenocarcinoma (MARLO) SUBSOLID NODULES Solitary pure ground-glass nodule * nodule size <6 mm - no CT follow-up required * nodule size >=6 mm - follow-up CT at 6-12 months, then every 2 years until 5 years Solitary part-solid nodule * nodule size <6 mm - no CT follow-up required * nodule size >=6 mm - follow-up CT at 3-6 months. If unchanged, and solid component remains <6 mm, then annual follow-up for 5 years Multiple subsolid nodules * nodule size <6 mm - follow-up CT at 3-6 months, consider further follow-up at 2 and 4 years if sta ble * nodule size >=6 mm - follow-up CT at 3-6 months, subsequent management based on the most suspiciou s nodule(s) Electronically signed by: Patrick Shields M.D. 06/30/2019 2:53 PM
--- NOTE | 2019-06-30 15:03 | CT Scan Report ---
LEFT HIP CT CT DOSE: HISTORY: Left hip pain. fall, pain TECHNIQUE: Multiaxial CT images of the left hip were performed and reformatted in the sagittal and co marge plane without the use of contrast. A dose lowering technique was utilized adhering to the prin ciples of CHAVEZ. COMPARISON: Left hip 06/30/2019. FINDINGS: Nondisplaced left femoral neck fracture. Abnormal lucency within the femoral neck best seen on coronal image 48 of 99 which measures 2.9 x 2.8 cm. This results in abnormal thinning of the jesus ex. Therefore, these findings are suspicious for pathologic femoral neck fracture. There is also abno rmal lucency within the anterior iliac bone which may represent an additional lytic lesion. No disloc ation. Small left hip effusion. Colonic diverticulosis. IMPRESSION: 1. Nondisplaced left femoral neck fracture. 2. A 2.9 x 2.8 cm lytic lesion within the left femoral neck. There is also suggestion of an additiona l lytic lesion within the anterior left iliac bone. Therefore, this is concerning for a pathologic le ft femoral neck fracture. Electronically signed by: Bao Alcala M.D. 06/30/2019 3:02 PM
--- NOTE | 2019-06-30 15:09 | CT Scan Report ---
LUMBAR SPINE CT CT DOSE: HISTORY: Low back pain. fall TECHNIQUE: Multiaxial CT images of the lumbar spine were performed and reformatted in the sagittal an d coronal plane without the use of contrast. A dose lowering technique was utilized adhering to the principles of ALARA. COMPARISON: None. FINDINGS: The bones are osteopenic. No fracture or subluxation. Severe disc space narrowing at L5-S1. Mild disc space narrowing at L4-L5. Paraspinal soft tissues are unremarkable. The sacrum is intact. Paraspinal soft tissues are unremarkable. IMPRESSION: No fractures within the lumbar spine. Degenerative changes within the lower lumbar spine as described above. Electronically signed by: Bao Alcala M.D. 06/30/2019 3:08 PM
[2019-06-30] MEDS ORDERED: MoRPHine SULFATE 4 MG/ML 1 ML CARP\\VIAL IV STA (15:14)
[2019-06-30] MEDS ORDERED: AMPICILLIN/SULBACTAM SOD 3,000 MG in 0.9 % SODIUM CHLORIDE 100 ML IV STA (15:14)
--- NOTE | 2019-06-30 15:19 | Emergency Department Note ---
Entered by Clifford Hicks acting as a scribe for Buck Gudino M.D. History of Present Illness General Chief complaint: Fall Source: patient History of Present Illness Provider complaint: Hip pain Onset (ago): hour(s) (Just prior to arrival) Location: hip and left Pain Consistency: + constant Maximum Pain Intensity: 7 Current Pain Intensity: 7 Relieved By: + none Exacerbated By: + movement Associated symptoms: + nausea/vomiting (No vomiting); no headaches The patient is a 78 year old female who presents to the Emergency Room with complaints of constant left hip pain that started just prior to arrival following a fall she had. The patient states she was walking to her front door when she tripped and fell onto her left side. The patient rates the pain as a 7/10 and notes it is worse with movement of the left leg. The patient adds that she felt nauseous and had intermittent hot flashes after the fall before she received any pain medication. The patient denies hitting her head as well as being on any blood thinners. The patient states that she has been following up with her doctor as an outpatient for left hip pain. She just recently finished a course of steroids and had an x-ray done that showed degenerative changes. The patient was given Fentanyl en route and was put on oxygen which is not normal for her at baseline. Home Medications Home Medications Medication Instructions Recorded Confirmed Type biotin 10 mg tablet 10 mg PO QAM 04/11/19 06/30/19 History calcium carbonate 600 mg calcium 600 mg PO BID tab 04/11/19 06/30/19 History (1,500 mg) tablet citalopram 40 mg tablet 60 mg PO QAM #135 tab 04/11/19 06/30/19 History cyanocobalamin (vit B-12) 1,000 1,000 mcg PO QAM tab 04/11/19 06/30/19 History mcg tablet gemfibrozil 600 mg tablet 600 mg PO BID #180 tab 04/11/19 06/30/19 History levothyroxine 100 mcg tablet 100 mcg PO QAM #90 tab 04/11/19 06/30/19 History lorazepam 0.5 mg tablet 0.25 - 0.5 mg PO Q12H PRN #20 tab 04/11/19 06/30/19 History vitamin E 1,000 unit capsule 1,000 units PO QAM 04/11/19 06/30/19 History acetaminophen [Tylenol Extra 500 mg PO Q6H PRN 06/30/19 06/30/19 History Strength] aspirin 81 mg PO DAILY 06/30/19 06/30/19 History meloxicam 15 mg PO QAM 06/30/19 06/30/19 History omega-3 acid ethyl esters 1 cap PO QAM 06/30/19 06/30/19 History pantoprazole 40 mg PO QAM 06/30/19 06/30/19 History Allergies Allergy/AdvReac Type Severity Reaction Status Date / Time acetaminophen [From Vicodin] Allergy Verified 06/30/19 12:46 metronidazole [From Flagyl] Allergy Verified 06/30/19 12:46 clarithromycin AdvReac Mild N/V Verified 06/12/19 13:27 hydrocodone AdvReac Mild N/V Verified 06/12/19 13:27 venlafaxine AdvReac Mild N/V Verified 06/12/19 13:27 Past Med/Surg History Medical History Situational depression (Acute) Osteopenia (Acute) Irritable bowel syndrome (Acute) Hypothyroidism (Acute) History of pneumonia (Acute) Gastroesophageal reflux disease (Acute) Fatigue (Acute) Essential hypertriglyceridemia (Acute) Esophageal dyskinesia (Acute) Depression (Acute) Adrenal cortical adenoma (Acute) Abnormal electrocardiogram (Acute) Surgical History S/P section Social History Preferred Language: Serbian Communication Ability: Effective Visual Impairment: No Limitations Hearing Ability: Normal marital status: Current Living Situation: Spouse current occupational status: retired Feels Safe at Home: Yes Smoking Status: Current every day smoker packs per day: 0.5 ; Hx Alcohol Use: No Hx Substance Use: No caffeine: Yes Seatbelt Use: always Review of Systems See HPI for pertinent positives & negatives. and A total of 10 systems reviewed and were otherwise negative Physical Exam Vital Signs Vital Signs - 24 hr 06/30/19 12:10 06/30/19 13:11 06/30/19 14:57 Temperature 36.8 C Temperature Source Oral Sepsis Recent Fever Within 48 Hours No Sepsis New/Unexplained Change in Mental Status No Sepsis Action Taken by Nursing No Action Required Pulse Rate 70 Pulse Rate [Finger] 61 Pulse Rate [Left Apical] 64 Pulse Rhythm [Left Apical] Regular Pulse Strength [Left Apical] Normal Respiratory Rate 16 18 14 Respiratory Effort / Characteristics Non-Labored Non-Labored Spontaneous Respiratory Depth Normal Normal Respiratory Pattern Regular Blood Pressure 112/52 L Blood Pressure [Right Arm] 105/47 L 106/55 L Blood Pressure Mean 72 Blood Pressure Mean [Right Arm] 66 72 Blood Pressure Position [Right Arm] Lying Pulse Oximetry 87 L 94 97 Oxygen Delivery Method Room Air Nasal Cannula Room Air GENERAL: Awake, alert, laying on stretcher HENT: Normocephalic, atraumatic. EYES: Normal conjunctiva. Sclera non-icteric. PERRL. NECK: Supple. No nuchal rigidity. No midline tenderness. RESPIRATORY: Clear to auscultation. No wheezes. Normal respiratory effort. CARDIAC: Normal rate. Normal rhythm. Extremities warm and well perfused. GI: Soft, non-distended. Left inguinal tenderness to palpation. No rebound or guarding. No masses. RECTAL: Deferred. MUSCULOSKELETAL: Atraumatic. Chest examination reveals no tenderness. LOWER EXTREMITIES: Calves are equal size bilaterally and non-tender. No edema. Left hip pain on passive ROM. NVI LLE. NEURO: Normal sensorium. No sensory or motor deficits noted. No facial droop. No slurred speech. SKIN: Warm and dry. No rash or jaundice noted. Course 1251: Past medical records reviewed. The patient was evaluated in room C04, and a complete history and physical examination were performed. 1505: I reevaluated and updated the patient on all results obtained thus far. We also discussed the treatment plan and she fully understands and agrees with the plan. 1511: I spoke to Dr. Harpreet Garcia [facility] Hospitalist about the patient's case. She is going to accept the patient for further evaluation. 1525: I spoke to Dr. Roberto Garcia [facility] about the patient's case and work up done today in the ED. He is going to evaluate the patient while she is in the hospital. Consultations Consultation #1: I spoke to Dr. Harpreet Garcia [facility] Hospitalist about the patient's case. She is going to accept the patient for further evaluation. Time: 15:11 Consultation #2: I spoke to Dr. Roberto - Orthopedics about the patient's case and work up done today in the ED. He is going to evaluate the patient while she is in the hospital. Time: 15:23 Administered Medications Ioversol (Optiray 320 100ml) 94 ml IV ONCE PRN PRN Reason: Interaction Checking Stop: 07/04/19 14:36 Last Admin: 06/30/19 14:38 Dose: 94 ml Documented by: [id number] Discontinued Medications Fentanyl Citrate (Fentanyl Citrate) 25 mcg IV NOW STA Stop: 06/30/19 12:58 Last Admin: 06/30/19 13:12 Dose: 25 mcg Documented by: [id number] Acetaminophen (Ofirmev) 1,000 mg in 100 mls @ 400 mls/hr IV NOW STA Stop: 06/30/19 13:12 Last Infusion: 06/30/19 13:50 Dose: 0 mls/hr Documented by: [id number] Admin: 06/30/19 13:12 Dose: 400 mls/hr Documented by: [id number] Medical Decision Making Differential Diagnosis Differential diagnoses include major intracranial, cervical, spinal, thoracic, abdominal, pelvic and neurologic injury. Fracture, contusion, sprain, strain, laceration, abrasions included as well. Medical Records Attestation: I reviewed the patient's medical records. Home Medications Current Medication List: was personally reviewed by me Laboratory Data Attestation: I reviewed the patient's lab results. Result diagrams: 06/30/19 13:37 06/30/19 13:37 Lab Results 06/30/19 06/30/19 06/30/19 Range/Units 13:37 13:37 13:37 WBC 18.81 H (4.8-10.8) K/uL RBC 4.19 L (4.2-5.4) M/uL Hgb 13.0 (12.0-16.0) g/dL Hct 39.1 (37-47) % MCV 93.3 (80-100) fL MCH 31.0 (25-34) pg MCHC 33.2 (32-36) g/dL RDW Std Deviation 46.1 (36.4-46.3) fL RDW Coeff of Raymundo 13.5 (11.5-14.5) % Plt Count 212 (130-400) K/uL MPV 9.5 (7.4-10.4) fL Immature Gran % (Auto) 0.3 % Neut % (Auto) 84.2 % Lymph % (Auto) 6.3 % Cataño % (Auto) 7.0 % Eos % (Auto) 2.0 % Baso % (Auto) 0.2 % Immature Gran # (Auto) 0.06 H (0.00-0.02) K/uL Neut # (Auto) 15.84 H (1.4-6.5) K/uL Lymph # (Auto) 1.19 L (1.2-3.4) K/uL Cataño # (Auto) 1.31 H (0.11-0.59) K/uL Eos # (Auto) 0.37 (0-0.5) K/uL Baso # (Auto) 0.04 (0-0.2) K/uL PT 10.6 (9.0-12.0) Seconds INR 1.0 (0.9-1.1) Sodium 138 (136-145) mmol/L Potassium 4.3 (3.5-5.1) mmol/L Chloride 105 (98-107) mmol/L Carbon Dioxide 29 (21-32) mmol/L Anion Gap 5.0 (3-11) BUN 29 H (7-18) mg/dl Creatinine 1.10 (0.6-1.2) mg/dl Est Cr Clr Drug Dosing 36.8 ml/min Est GFR ( Amer) 56.5 Est GFR (Non-Af Amer) 48.7 BUN/Creatinine Ratio 26.4 H (10-20) Glucose 111 H (70-99) mg/dl Calcium 10.2 H (8.5-10.1) mg/dl Troponin I < 0.015 (0-0.045) ng/ml Imaging Data Radiologist's Impression: Radiology results as stated below per my review and the radiologist's interpretation: XR chest 1V portable HISTORY: Left hip pain. fall COMPARISON: Chest 11/14/2017. FINDINGS: No pneumothorax. No pleural effusions. No focal lung consolidations to suggest pneumonia. The heart is stable in size. Mild diffuse interstitial thickening, unchanged. This is likely chronic. IMPRESSION: No significant change compared to the prior study. No acute process. Stable mild chronic interstitial thickening. Electronically signed by: Bao Alcala M.D. 06/30/2019 2:05 PM XR hip LT 2V w pelvis CLINICAL HISTORY: fall, pain, ?frx COMPARISON: CT of the abdomen and pelvis December 27, 2016. FINDINGS: The sacroiliac joints and symphysis pubis are intact. There is subtle cortical irregularity and equivocal lucency projecting of the left femoral neck. IMPRESSION: Equivocal nondisplaced left femoral neck fracture. This is likely artifactual however a CT of the left hip is recommended. Electronically signed by: Александр Garay M.D. 06/30/2019 2:[address] head/brain wo con CLINICAL HISTORY: Head pain status post trauma COMPARISON STUDY: 12/06/2017 TECHNIQUE: Axial CT of the brain is performed from the vertex to the skull base. IV contrast was not administered for this examination. A dose lowering technique was utilized adhering to the principles of ALARA. CT DOSE: 1472.53 mGy.cm FINDINGS: No intra or extra-axial mass lesions are visualized. There is no CT evidence of acute cortical infarction. There is no evidence of midline shift. There is no acute hemorrhage. No calvarial fractures are visualized. There are minor white matter hypodensities likely on a small vessel basis. There is no evidence of pathologic ventricular dilatation. The right maxilla sinus is somewhat hypoplastic. There is no evidence of acute sinusitis. IMPRESSION: No acute intracranial findings Electronically signed by: Patrick Shields M.D. 06/30/2019 2:[address] abd pelvis IV con only CLINICAL HISTORY: Left-sided pain status post trauma. COMPARISON STUDY: November 2016 TECHNIQUE: The patient was scanned in a dynamic helical fashion during intravenous administration of 94 cc of Optiray 320. A dose lowering technique was utilized adhering to the principles of ALARA. CT DOSE: FINDINGS: Lower chest: There is a new 9 mm right middle lobe pulmonary nodule abutting the diaphragmatic surface. Liver: The contrast-enhanced liver is normal in size, contour, and attenuation. There is no intrahepatic biliary ductal dilatation. The hepatic veins and portal veins are patent. Gallbladder: Cholelithiasis Spleen: Normal in size and attenuation. Pancreas: Unremarkable. Adrenal glands: There is stable 22 mm left adrenal nodule Kidneys: There is a 16 mm lower pole right renal cyst. Additional subcentimeter hypodensities likely represent additional cysts Bowel: There is colonic diverticulosis. There is equivocal minimal diverticulitis at the descending sigmoid junction. The appendix appears normal. There are no transition zones indicate bowel obstruction. Peritoneum: There is no intraperitoneal free air or abdominal ascites. Vasculature: The abdominal aorta is normal in course and caliber. Adenopathy: None. Pelvic viscera: There are calcified uterine fibroids. Skeletal structures: No destructive osseous lesions are seen. IMPRESSION: 1. Extensive colonic diverticulosis with suspected minimal diverticulitis at the descending sigmoid junction 2. No evidence of bowel obstruction. No evidence of free air 3. Normal appendix 4. Cholelithiasis 5. New 9 mm right middle lobe pulmonary nodule. Further workup is indicated. Please refer to below summary of Fleischner criteria recommendations for follow- up of incidental CT nodules ([place] Ernst, Guidelines for management of small pulmonary nodules detected on CT scans: A statement from the Fleischner Society, Radiology 237: [phone].) SOLID NODULES Solitary nodule size: <6 mm * low risk patients: no follow-up needed * high risk patients: optional CT at 12 months Solitary nodule size: 6-8 mm * low risk patients: follow-up at 6-12 months, then consider further follow-up at 18-24 months * high risk patients: initial follow-up CT at 6-12 months and then at 18-24 months if no change Solitary nodule size: >8 mm * either low or high risk patients - consider follow-up CT at 3 months, and/or CT-PET, and/or biopsy Multiple nodules size: <6 mm * low risk patients: no routine follow-up * high risk patients: optional CT at 12 months Multiple nodules size: 6-8 mm * low risk patients: follow-up at 3-6 months, then consider further follow-up at 18-24 months * high risk patients: follow-up at 3-6 months, then at 18-24 months if no change Multiple nodules size: >8 mm * low risk patients: follow-up at 3-6 months, then consider further follow-up at 18-24 months * high risk patients: follow-up at 3-6 months, then at 18-24 months if no change Note: newly detected indeterminate nodule in persons 35 years of age or older. * low risk patients: minimal or absent history of smoking and/or other known risk factors * high risk patients: history of smoking or of other known risk factors (e.g. first degree relative with lung cancer, or exposure to asbestos, radon, uranium) * if a nodule up to 8 mm is partly solid or is ground glass further follow-up is required after 24 months to exclude possible slow growing adenocarcinoma (MARLO) SUBSOLID NODULES Solitary pure ground-glass nodule * nodule size <6 mm - no CT follow-up required * nodule size >=6 mm - follow-up CT at 6-12 months, then every 2 years until 5 years Solitary part-solid nodule * nodule size <6 mm - no CT follow-up required * nodule size >=6 mm - follow-up CT at 3-6 months. If unchanged, and solid component remains <6 mm, then annual follow-up for 5 years Multiple subsolid nodules * nodule size <6 mm - follow-up CT at 3-6 months, consider further follow-up at 2 and 4 years if stable * nodule size >=6 mm - follow-up CT at 3-6 months, subsequent management based on the most suspicious nodule(s) Electronically signed by: Patrick Shields M.D. 06/30/2019 2:[address] DOSE: HISTORY: Left hip pain. fall, pain TECHNIQUE: Multiaxial CT images of the left hip were performed and reformatted in the sagittal and coronal plane without the use of contrast. A dose lowering technique was utilized adhering to the principles of ALARA. COMPARISON: Left hip 06/30/2019. FINDINGS: Nondisplaced left femoral neck fracture. Abnormal lucency within the femoral neck best seen on coronal image 48 of 99 which measures 2.9 x 2.8 cm. This results in abnormal thinning of the cortex. Therefore, these findings are suspicious for pathologic femoral neck fracture. There is also abnormal lucency within the anterior iliac bone which may represent an additional lytic lesion. No dislocation. Small left hip effusion. Colonic diverticulosis. IMPRESSION: 1. Nondisplaced left femoral neck fracture. 2. A 2.9 x 2.8 cm lytic lesion within the left femoral neck. There is also suggestion of an additional lytic lesion within the anterior left iliac bone. Therefore, this is concerning for a pathologic left femoral neck fracture. Electronically signed by: Bao Alcala M.D. 06/30/2019 3:[address] DOSE: HISTORY: Low back pain. fall TECHNIQUE: Multiaxial CT images of the lumbar spine were performed and reformatted in the sagittal and coronal plane without the use of contrast. A dose lowering technique was utilized adhering to the principles of ALARA. COMPARISON: None. FINDINGS: The bones are osteopenic. No fracture or subluxation. Severe disc space narrowing at L5-S1. Mild disc space narrowing at L4-L5. Paraspinal soft tissues are unremarkable. The sacrum is intact. Paraspinal soft tissues are unremarkable. IMPRESSION: No fractures within the lumbar spine. Degenerative changes within the lower lumb ar spine as described above. Electronically signed by: Bao Alcala M.D. 06/30/2019 3:08 PM ECG Data Attestation: I personally reviewed and interpreted this ECG as follows: Indication: other (Trauma) Rate (beats per minute): 60 Rhythm: normal sinus Findings: no PVC, no ST depression and no ST elevation Blood Pressure Blood Pressure Findings: Low blood pressure Blood Pressure Disposition: further management by hospitalist Head Trauma GCS Score: 15 MDM Narrative Patient is a 78-year-old female history of COPD, hypothyroidism, GERD resenting today after a fall. Bumped into her left hip on the door frame and states she lost her balance. Fell to the ground. Denies any head or neck pain. Denies d ifficulty breathing. Slightly hypoxic after fentanyl; likely component of low sp02 2/2 tobacco use hx as well. A little bit shaky and nauseous after the fall. Exquisite tenderness R OM of the left hip. Neurovascular intact left lower extremity. No significant evidence of other trauma. Basic labs were obtained as well as CT of the head to exclude traumatic injury. EKG and left hip x-ray was obtained as well. Concern for left hip fracture. Given some more fentanyl and Tylenol here for pain control. CT abdomen pelvis and lumbar spine was complete as well as the hip. No obvious fracture of the left hip noted on x-ray. Laboratory studies do show significant leukocytosis of 18 of unclear origin. No significant anemia or signs of renal dysfunction. CT the head is unremarkable. CT the abdomen pelvis shows suspected minimal diverticulitis and new pulmonary nodule. Patient informed require follow-up regarding the nodule. Given leukocytosis and her pain here to give a dose of Unasyn. Patient also informed of left hip fracture and concern for pathological features and possible additional lytic lesions. Discussed with the orthopedic doctor on-call for her group. Given some morphine for further pain control. Will be admitted. Impression & Plan Closed fracture of neck of left femur, Diverticulitis, Fall, Pulmonary nodule Discharge Plan Visit Data Chief Complaint: Fall ED Provider: Buck Gudino Discharge Problem: Closed fracture of neck of left femur, Diverticulitis, Fall, Pulmonary nodule Patient Disposition: Being Evaluated by Hospitalist Forms Stand Alone Forms: My [facility] Prescriptions Prescriptions: No Action biotin 10 mg tablet 10 mg PO QAM RF: 0 calcium carbonate 600 mg calcium (1,500 mg) tablet 600 mg PO BID RF: 0 citalopram 40 mg tablet 60 mg PO QAM Qty: 135 RF: 0 gemfibrozil 600 mg tablet 600 mg PO BID Qty: 180 RF: 0 levothyroxine 100 mcg tablet 100 mcg PO QAM Qty: 90 RF: 0 lorazepam 0.5 mg tablet 0.25 - 0.5 mg PO Q12H PRN (Reason: Anxiety) Qty: 20 RF: 0 cyanocobalamin (vitamin B-12) 1,000 mcg tablet 1,000 mcg PO QAM RF: 0 vitamin E 1,000 unit capsule 1,000 units PO QAM RF: 0 aspirin 81 mg Tablet,Delayed Release (Dr/Ec) 81 mg PO DAILY RF: 0 acetaminophen [Tylenol Extra Strength] 500 mg Tablet 500 mg PO Q6H PRN (Reason: Pain) RF: 0 meloxicam 15 mg tablet 15 mg PO QAM RF: 0 pantoprazole 40 mg tablet,delayed release (DR/EC) 40 mg PO QAM RF: 0 omega-3 acid ethyl esters 1 gram capsule 1 cap PO QAM RF: 0 Referrals Referrals: Zion Bartholomew MD [Primary Care Provider] - Discharge Problem: Closed fracture of neck of left femur Qualifiers: Encounter type: initial encounter Qualified Code(s): S72.002A - Fracture of unspecified part of neck of left femur, initial encounter for closed fracture Fall Qualifiers: Encounter type: initial encounter Qualified Code(s): W19.XXXA - Unspecified fall, initial encounter The scribe's documentation has been prepared under my direction and personally reviewed by me in its entirety. I confirm that the note above accurately reflects all work, treatment, procedures, and medical decision making performed by me.
[2019-06-30 17:31] LABS: Thyroid Stimulating Hormone 1.59 uIu/ml (0.300-4.500)
[2019-06-30] MEDS ORDERED: POLYETHYLENE (MIRALAX) 17 GM PACK PO PRN (18:14)
[2019-06-30] MEDS ORDERED: ONDANSETRON INJ 2 MG/ML 2 ML VIAL IV PRN (18:14)
[2019-06-30] MEDS ORDERED: ACETAMINOPHEN 325 MG TAB PO PRN (18:14)
[2019-06-30] MEDS ORDERED: ZOLPIDEM TARTRATE 5 MG TAB PO PRN (18:14)
[2019-06-30] MEDS ORDERED: MAGNESIUM HYDROXIDE SUSP 30 ML UDC PO PRN (18:14)
[2019-06-30] MEDS ORDERED: ALUMINUM/MAGNESIUM SUSP 30 ML UDC PO PRN (18:14)
[2019-06-30] MEDS ORDERED: SODIUM CHLORIDE 0.9% 1000ML 1,000 ML IV SCH (18:14)
[2019-06-30] MEDS ORDERED: LORazepam 0.5 MG TAB PO PRN (18:14)
[2019-06-30] MEDS ORDERED: fentaNYL 25 MCG/HR TDSY TD ONE (18:36)
--- NOTE | 2019-06-30 18:50 | Orthopedic Consultation ---
Date of Consultation June 30, 2019 Assessment & Plan (1) Closed fracture of neck of left femur: It appears that she is developed a fracture of the femoral neck after several months of progressive left hip pain. There are some suggestions of lytic lesions in the proximal femur visible on available x-ray. She will likely require some surgical stabilization of his femoral neck fracture, but we must diagnose the lytic lesions in her proximal femur. She also is noted to have a pulmonary nodule in her chest CT today. Further work-up is required to determine diagnosis for the presumed lytic lesion in the proximal femur, prior to surgical stabilization of the femoral neck. Recommend: 1. full-length femur x-ray. 2. full body bone scan to evaluate for any other active bone lesions. 3. appropriate imaging and other work-up to define whether the lung or other source is a primary source of malignancy 4. If it is suspected be a primary bone lesion, then we should proceed with an MRI of the femur. 5. Until possible malignant diagnosis work-up is completed, she should be nonweightbearing to the left lower extremity. This should not preclude her from being out of bed with max assist. 6. She should be on appropriate DVT prophylaxis. Likely the best agent would be heparin sq they can be turned off when we decide that she can go to the operating room. Defer to the primary team for DVT prophylaxis 7. She need not be n.p.o. this evening from an orthopedic standpoint, it is unlikely the work-up will be completed in time for operating room time tomorrow. We can tentatively plan for hip surgery pending progress with the work-up. History of Present Illness Reason for Consultation: Left femoral neck fracture Attending Physician: Nav Mullins MD History of Present Illness 78-year-old female with medical history that includes COPD, depression, osteopenia and extensive smoking history admitted from the ED due to acute left hip pain and the diagnosis of diverticulitis. She sustained a fall today. She has had a history of several months of progressive left hip pain with weightbearing. She had a mechanical fall today resulting in a direct impact to the lateral aspect of her left hip. She had difficulty getting to her feet after this. She was brought to the emergency room. She reports this pain is been progressive for several months and is been treated by her primary care physician. She was recently on a prednisone course due to back and left hip pain. She had a presumed diagnosis of osteoarthritis. She reports the pain is now severe and preventing her ability to weight-bear. Eyes any numbness or tingling or gross deformity at the time of injury. We were consulted by the emergency room for the diagnosis of nondisplaced left femoral neck fracture. Allergies Allergy/AdvReac Type Severity Reaction Status Date / Time acetaminophen [From Vicodin] Allergy Verified 06/30/19 12:46 metronidazole [From Flagyl] Allergy Verified 06/30/19 12:46 clarithromycin AdvReac Mild N/V Verified 06/12/19 13:27 hydrocodone AdvReac Mild N/V Verified 06/12/19 13:27 venlafaxine AdvReac Mild N/V Verified 06/12/19 13:27 Home Medications Home Medications Medication Instructions Recorded Confirmed Type biotin 10 mg tablet 10 mg PO QAM 04/11/19 06/30/19 History calcium carbonate 600 mg calcium 600 mg PO BID tab 04/11/19 06/30/19 History (1,500 mg) tablet citalopram 40 mg tablet 60 mg PO QAM #135 tab 04/11/19 06/30/19 History cyanocobalamin (vit B-12) 1,000 1,000 mcg PO QAM tab 04/11/19 06/30/19 History mcg tablet gemfibrozil 600 mg tablet 600 mg PO BID #180 tab 04/11/19 06/30/19 History levothyroxine 100 mcg tablet 100 mcg PO QAM #90 tab 04/11/19 06/30/19 History lorazepam 0.5 mg tablet 0.25 - 0.5 mg PO Q12H PRN #20 tab 04/11/19 06/30/19 History vitamin E 1,000 unit capsule 1,000 units PO QAM 04/11/19 06/30/19 History acetaminophen [Tylenol Extra 500 mg PO Q6H PRN 06/30/19 06/30/19 History Strength] aspirin 81 mg PO DAILY 06/30/19 06/30/19 History meloxicam 15 mg PO QAM 06/30/19 06/30/19 History omega-3 acid ethyl esters 1 cap PO QAM 06/30/19 06/30/19 History pantoprazole 40 mg PO QAM 06/30/19 06/30/19 History Patient History Medical History Situational depression (Acute) Osteopenia (Acute) Irritable bowel syndrome (Acute) Hypothyroidism (Acute) History of pneumonia (Acute) Gastroesophageal reflux disease (Acute) Fatigue (Acute) Essential hypertriglyceridemia (Acute) Esophageal dyskinesia (Acute) Depression (Acute) Adrenal cortical adenoma (Acute) Abnormal electrocardiogram (Acute) Surgical History S/P section Social History Preferred Language: Malagasy Communication Ability: Effective Visual Impairment: No Limitations Hearing Ability: Normal 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: No Beliefs That Will Affect Care: None marital status: Current Living Situation: Spouse current occupational status: retired Other Information That Helps Us Care for You: No Feels Safe at Home: Yes Safety Concerns: Feels Safe At This Time Smoking Status: Current every day smoker Tobacco Type: cigarettes ; packs per day: 0.5 ; Cigarettes Per Day: 10 ; Do You Dip or Chew Tobacco: No ; Second Hand Exposure: No ; Tobacco Cessation Education Requested by Patient: No Hx Alcohol Use: No Hx Substance Use: No caffeine: Yes Seatbelt Use: always Review of Systems Review of Systems: All systems reviewed & are unremarkable except as noted in HPI & below Respiratory: no dyspnea and no pain on inspiration Cardiovascular: no chest pain Gastrointestinal: no nausea and no vomiting Musculoskeletal: no back pain and no neck pain Integumentary: no rash and no lesions Neurologic: no numbness and no paresthesia Physical Exam Physical Exam: Lying in hospital bed, in no acute distress but apparent discomfort from her left hip. She is pleasant and conversant despite this. She is accompanied by several family members that contribute to the history. Musculoskeletal: Pelvis: She is stable to AP compression. She is diffusely tender over the lateral aspect of her left flank pelvis and hip. Right lower extremity: She has full active range of motion of her ankle and knee. She has no pain with logroll. She is nontender about the greater trochanter and her hip area. Left lower extremity: She is guarding about her left hip. She cannot perform straight leg raise. Logrolling gently promote significant discomfort in the anterior hip. She is nontender palpation along her foot ankle tibia knee and distal femur. She is full active range of motion of her ankle. She is neurovascularly intact with 2+ DP and PT pulses and sensation intact light touch throughout. There is no skin disruption about the hip. Results & Data Vital Signs (Past 12 Hours) Vital Signs Temp Pulse Pulse Pulse Resp BP BP 06/30/19 18:13 36.7 C 62 16 144/76 H 06/30/19 17:31 60 20 110/57 L 06/30/19 17:30 60 18 06/30/19 17:15 67 18 06/30/19 17:01 61 18 06/30/19 17:00 62 14 126/59 L 06/30/19 16:45 58 L 18 06/30/19 16:31 60 17 06/30/19 16:30 57 L 20 114/59 L 06/30/19 14:57 64 14 106/55 L 06/30/19 13:11 61 18 105/47 L 06/30/19 12:10 36.8 C 70 16 112/52 L Pulse Ox 06/30/19 18:13 97 06/30/19 17:31 06/30/19 17:30 06/30/19 17:15 06/30/19 17:01 06/30/19 17:00 06/30/19 16:45 06/30/19 16:31 06/30/19 16:30 06/30/19 14:57 97 06/30/19 13:11 94 06/30/19 12:10 87 L Diagnostic Findings X-ray of the left hip: AP pelvis and lateral view of the left proximal femur demonstrate the suggestion of a cortical lucency in the compression side of the femoral neck. There is also some areas more distally in the base of the femoral neck. Is a better observed on the CT CT pelvis: The CT of the abdomen pelvis includes the proximal femurs for evaluation of the femoral neck. There is adequate cuts to demonstrate the suggestion of osteopenia and likely compression sided femoral neck fracture. Is also areas of lucency that are faint due to the osteopenia but concerning for lytic lesions. PG Care Time/CCT Total # of Minutes Spent Total Time Spent with Patient: Total time spent is greater than 50% in coordination of care (as documented) at patient's floor/unit and/or counseling patient: (1) Closed fracture of neck of left femur Encounter type: initial encounter Qualified Code(s): S72.002A - Fracture of unspecified part of neck of left femur, initial encounter for closed fracture
[2019-06-30] MEDS: MoRPHine SULFATE 2 MG/ML CARP IV PRN ×2 (19:21→22:32)
[2019-06-30] MEDS ORDERED: fentaNYL 25 MCG/HR TDSY TD SCH (20:30)
[2019-06-30] MEDS ORDERED: INFLUENZA ADMINISTRATION CHARGE ONE (20:45)
[2019-06-30] MEDS ORDERED: INFLUENZA VIRUS QUAD VACCINE 0.5 ML SYR IM ONE (20:45)
[2019-06-30] MEDS: GEMFIBROZIL 600 MG TAB PO SCH (20:58)
[2019-06-30] MEDS: CALCIUM 600MG + VIT D 400 IU TAB PO SCH (20:59)
--- NOTE | 2019-07-01 00:34 | History & Physical Report ---
Date of Service July 01, 2019 Assessment & Plan (1) Closed fracture of neck of left femur: Admit to medr on tele VS q4 hr appreciate Ortho recs Full length XR of the femur and skeletal survey are pending to determine if mre lytic lesions are there. DVT ppx Heparin 5000 units Q8 hr since surgery tentatively planned for . If it is suspected be a primary bone lesion, then we should proceed with an MRI of the femur. consult thoracic surgery further work up of the pulmonary nodule. Pain management Full code. Present on Admission?: Yes (2) Diverticulitis: elevated WBC to 18K. Possibly due to minimal diverticulosis seen on the CT abdomen and pelvis. Given Amp/Sulbac in the ER, continue cirrent treatment since pt allergic to Flagyl. UA still pending Present on Admission?: Yes (3) Pulmonary nodule: Consulted thoracic surgery Present on Admission?: Yes (4) Cigarette smoker: Pt advied to quit and offered nicotine patch.Pt has been smoking >50 years 1ppd. Present on Admission?: Yes (5) COPD (chronic obstructive pulmonary disease): not in acute exac, stable, continue home meds. Present on Admission?: Yes (6) Situational depression: (7) Hypothyroidism: Stable, cont levothyroxine 100 mcg daily. TSH normal. Present on Admission?: Yes History of Present Illness Chief Complaint: left hip fracture, pulmonary nodule Primary Care Provider: Zion Bartholomew MD Patient is a 78 y/o female with PMHx of nicotine dependance for more then 50 years, osteopenia, hypothyroidism, irritable bowel sy, COPD, GERD, essential hypertriglyceridemia, depression, adrenal cortical adenoma presents to the Emergency Room with complaints of constant left hip pain that started just prior to arrival following a fall she had. The patient states she was walking to her front door when she tripped and fell onto her left side. The patient rates the pain as a 7/10 and notes it is worse with movement of the left leg. The patient adds that she felt nauseous and had intermittent hot flashes after the fall before she received any pain medication. The patient denies hitting her head as well as being on any blood thinners. The patient states that she has been following up with her doctor as an outpatient for left hip pain. She just recently finished a course of steroids and had an x-ray done that showed degenerative changes. The patient was given Fentanyl IV in the ambulance and was put on oxygen which is not normal for her at baseline.Labs Reviewed:WBC: 18.81, Hgb 13, PT 10.6, Inr 1, TSH, 1.59, Cr 1.1, GFR 48.7, trop neg 0.015, ALT 12, APH 74, AST 12, Left hip Xrays:1. Nondisplaced left femoral neck fracture.2. A 2.9 x 2.8 cm lytic lesion within the left femoral neck. There is also suggestion of an additional lytic lesion within the anterior left iliac bone. Therefore, this is concerning for a pathologic left femoral neck fracture.Plan to admit to [facility] on tele pt for further work up of pulmonary nodule, left hip lytic lesion and hip fracture. Allergies Allergy/AdvReac Type Severity Reaction Status Date / Time acetaminophen [From Vicodin] Allergy Verified 06/30/19 12:46 metronidazole [From Flagyl] Allergy Verified 06/30/19 12:46 clarithromycin AdvReac Mild N/V Verified 06/12/19 13:27 hydrocodone AdvReac Mild N/V Verified 06/12/19 13:27 venlafaxine AdvReac Mild N/V Verified 06/12/19 13:27 Home Medications Home Medications Medication Instructions Recorded Confirmed Type biotin 10 mg tablet 10 mg PO QAM 04/11/19 06/30/19 History calcium carbonate 600 mg calcium 600 mg PO BID tab 04/11/19 06/30/19 History (1,500 mg) tablet citalopram 40 mg tablet 60 mg PO QAM #135 tab 04/11/19 06/30/19 History cyanocobalamin (vit B-12) 1,000 1,000 mcg PO QAM tab 04/11/19 06/30/19 History mcg tablet gemfibrozil 600 mg tablet 600 mg PO BID #180 tab 04/11/19 06/30/19 History levothyroxine 100 mcg tablet 100 mcg PO QAM #90 tab 04/11/19 06/30/19 History lorazepam 0.5 mg tablet 0.25 - 0.5 mg PO Q12H PRN #20 tab 04/11/19 06/30/19 History vitamin E 1,000 unit capsule 1,000 units PO QAM 04/11/19 06/30/19 History acetaminophen [Tylenol Extra 500 mg PO Q6H PRN 06/30/19 06/30/19 History Strength] aspirin 81 mg PO DAILY 06/30/19 06/30/19 History meloxicam 15 mg PO QAM 06/30/19 06/30/19 History omega-3 acid ethyl esters 1 cap PO QAM 06/30/19 06/30/19 History pantoprazole 40 mg PO QAM 06/30/19 06/30/19 History Past Med/Surg History Medical History Situational depression (Acute) Osteopenia (Acute) Irritable bowel syndrome (Acute) Hypothyroidism (Acute) History of pneumonia (Acute) Gastroesophageal reflux disease (Acute) Fatigue (Acute) Essential hypertriglyceridemia (Acute) Esophageal dyskinesia (Acute) Depression (Acute) Adrenal cortical adenoma (Acute) Abnormal electrocardiogram (Acute) Surgical History S/P section Social History Preferred Language: Bruneian Communication Ability: Effective Visual Impairment: No Limitations Hearing Ability: Normal Clinical Faculty Required: No Beliefs That Will Affect Care: None marital status: Current Living Situation: Spouse current occupational status: retired Other Information That Helps Us Care for You: No Feels Safe at Home: Yes Safety Concerns: Feels Safe At This Time Smoking Status: Current every day smoker Tobacco Type: cigarettes ; packs per day: 0.5 ; Cigarettes Per Day: 10 ; Do You Dip or Chew Tobacco: No ; Second Hand Exposure: No ; Tobacco Cessation Education Requested by Patient: No Hx Alcohol Use: No Hx Substance Use: No caffeine: Yes Seatbelt Use: always Review of Systems Review of Systems: All systems reviewed & are unremarkable except as noted in HPI & below Physical Exam Constitutional: WD/WN, vitals as above well developed and + ill appearing Eyes: PERRL, conjunctivae normal, anicteric sclerae ENMT: external ear and nose normal, oropharynx normal Neck: trachea midline, no thyromegaly Respiratory: + hyperresonance to percussion Auscultation: + wheezes Cardiovascular: RRR, no murmur, no edema Gastrointestinal (Abdomen): normal bowel sounds, soft, nontender, no hepatosplenomegaly Musculoskeletal: Extremities: + limited ROM of extremities (LLE nonweight bearing) Skin: no rashes, warm and dry Neurologic: patellar DTR's 2+ bilat, sensation intact Psychiatric: A+Ox3, euthymic affect Lymphatic: no cervical or axillary lymphadenopathy Results & Data Vital Signs (Past 12 Hours) Vital Signs Temp Pulse Pulse Pulse Resp BP BP 06/30/19 23:41 65 06/30/19 23:05 36.8 C 67 19 100/64 06/30/19 21:32 70 06/30/19 19:25 36.7 C 64 18 133/58 L 06/30/19 18:13 36.7 C 62 16 144/76 H 06/30/19 17:31 60 20 110/57 L 06/30/19 17:30 60 18 06/30/19 17:15 67 18 06/30/19 17:01 61 18 06/30/19 17:00 62 14 126/59 L 06/30/19 16:45 58 L 18 06/30/19 16:31 60 17 06/30/19 16:30 57 L 20 114/59 L 06/30/19 14:57 64 14 106/55 L 06/30/19 13:11 61 18 105/47 L Pulse Ox 06/30/19 23:41 06/30/19 23:05 93 06/30/19 21:32 06/30/19 19:25 95 06/30/19 18:13 97 06/30/19 17:31 06/30/19 17:30 06/30/19 17:15 06/30/19 17:01 06/30/19 17:00 06/30/19 16:45 06/30/19 16:31 06/30/19 16:30 06/30/19 14:57 97 06/30/19 13:11 94 Code Status & VTE Plan Code Status full code VTE Prophylaxis Plan VTE Prophylaxis will be ordered: No PG Care Time/CCT Total # of Minutes Spent Total Time Spent with Patient: Total time spent is greater than 50% in coordination of care (as documented) at patient's floor/unit and/or counseling patient: (1) Closed fracture of neck of left femur Encounter type: initial encounter Qualified Code(s): S72.002A - Fracture of unspecified part of neck of left femur, initial encounter for closed fracture
[2019-07-01] MEDS: CHECK FENTANYL PATCH PLACEMENT SCH ×3 (00:49→17:37)
[2019-07-01] MEDS: MoRPHine SULFATE 2 MG/ML CARP IV PRN ×3 (02:22→08:34)
[2019-07-01] MEDS: AMPICILLIN/SULBACTAM SOD 3,000 MG in 0.9 % SODIUM CHLORIDE 100 ML IV SCH ×4 (02:22→20:12)
[2019-07-01] MEDS: HEPARIN SOD 5,000 UNIT/0.5 ML VIAL SQ SCH ×4 (05:52→21:17)
[2019-07-01] MEDS: LEVOTHYROXINE SODIUM 100 MCG TABLET PO SCH (05:52)
[2019-07-01] MEDS: PANTOprazole 40 MG TAB PO SCH (07:42)
[2019-07-01] MEDS: ASPIRIN 81 MG ECTAB PO SCH (07:42)
[2019-07-01] MEDS: OMEGA-3 (PURIFIED FISH OIL) 1 GM CAP PO SCH (07:42)
[2019-07-01] MEDS: CYANOCOBALAMIN 500 MCG TABLET (VITAMIN B-12) PO SCH (07:42)
[2019-07-01] MEDS: TOCOPHERYL, DL-ALPHA 400 UNITS CAP PO SCH (07:42)
[2019-07-01] MEDS: TOCOPHERYL, DL-ALPHA 100 UNITS CAP PO SCH (07:42)
[2019-07-01] MEDS: GEMFIBROZIL 600 MG TAB PO SCH ×2 (07:43→20:17)
[2019-07-01] MEDS: CITALOPRAM 20 MG TAB PO SCH (07:43)
[2019-07-01] MEDS: CALCIUM 600MG + VIT D 400 IU TAB PO SCH ×2 (07:43→20:16)
[2019-07-01 08:22] LABS: Basophils # (auto) 0.01 K/uL (0-0.2); Basophils % (auto) 0.1 %; Eosinophils # (auto) 0.12 K/uL (0-0.5); Hematocrit (blood only) 36.2 % (37-47); Hemoglobin 11.7 g/dL (12.0-16.0); Immature Granulocytes # (auto) 0.03 K/uL (0.00-0.02); Immature Granulocytes % (auto) 0.2 %; Lymphocytes # (auto) 1.37 K/uL (1.2-3.4); Lymphocytes % (auto) 11.1 %; Mean Corpuscular Hemoglobin 30.3 pg (25-34); Mean Corpuscular Hgb Conc 32.3 g/dL (32-36); Mean Corpuscular Volume 93.8 fL (80-100); Mean Platelet Volume 9.8 fL (7.4-10.4); Monocytes # (auto) 0.93 K/uL (0.11-0.59); Monocytes % (auto) 7.5 %; Neutrophils # (auto) 9.89 K/uL (1.4-6.5); Neutrophils % (auto) 80.1 %; Platelet Count 213 K/uL (130-400); RDW Coefficient of Variation 13.6 % (11.5-14.5); RDW Standard Deviation 46.7 fL (36.4-46.3); Red Blood Count 3.86 M/uL (4.2-5.4); White Blood Count 12.35 K/uL (4.8-10.8)
[2019-07-01 08:56] LABS: BUN Creatinine Ratio 23.8 (10-20); Calcium 9.3 mg/dl (8.5-10.1); Creatinine Clr Calc Pharmacy 41.3 ml/min; Est GFR (African American) 64.9; Potassium 3.8 mmol/L (3.5-5.1)
[2019-07-01] MEDS ORDERED: NON-FORMULARY MEDICATION (Biotin 10 MG) PO SCH (09:00)
--- NOTE | 2019-07-01 09:15 | CT Scan Report ---
CT chest wo con CLINICAL HISTORY: lung nodule COMPARISON STUDY: CT scan of the abdomen and pelvis dated 06/30/2019 CT DOSE: 367.18 mGy.cm TECHNIQUE: CT of the thorax was performed from the thoracic inlet to the lung bases. Images are revi ewed in the axial, sagittal, and coronal planes. IV contrast was not administered for this examinatio n. A dose lowering technique was utilized adhering to the principles of ALARA. FINDINGS: Thyroid: Imaged portions of the thyroid gland are normal in appearance. Thoracic aorta: The thoracic aorta is normal in course and caliber, noting standard 3 vessel arch kaylan yanet. Heart: The heart is normal in size. There is minimal pericardial fluid. There are mild coronary arter y calcifications. Lungs and pleural spaces: There is pulmonary emphysema. There is a 21 mm right infrahilar mass/adenop athy. There is a right lower lobe atelectasis/consolidation. Left lower lobe atelectatic changes are also evident. There is an 8 mm subpleural left lower lobe pulmonary nodule as visualized image #164/[id number] 16. There is a 6 mm left lower lobe pulmonary nodule as visualized image #[id number]. There is an 8 mm r ight middle lobe nodule abutting the diaphragmatic surface as visualized image #[id number]. There is a 4 mm solid subpleural lingular nodule. Additional scattered pulmonary micronodules are visualized. The re are areas of lower lobe mucoid impaction. Mediastinum: There are enlarged mediastinal lymph nodes with an index subcarinal node measuring 17 mm Noy: Evaluation hilar structures is difficult even the noncontrast technique. As stated above, there is a suspected right infrahilar mass/adenopathy. Axilla: There is no evidence of pathologic axillary lymphadenopathy Upper abdomen: There is a small sliding hiatal hernia. There is a small amount of debris within the esophagus. There is a 2 cm left adrenal adenoma. Skeletal structures: There are no lytic or blastic osseous lesions. IMPRESSION: 1. Mediastinal lymphadenopathy including a 17 mm subcarinal lymph node 2. 21 mm right infrahilar mass/adenopathy 3. Right lower lobe atelectasis/consolidation. 4. Areas of lower lobe mucoid impaction 5. Scattered bilateral subcentimeter solid pulmonary nodules 6. Emphysema 7. Pulmonary consultation for consideration of bronchoscopic evaluation is recommended. Electronically signed by: Patrick Shields M.D. 07/01/2019 9:14 AM
--- NOTE | 2019-07-01 09:40 | Consultation Report ---
DATE OF CONSULTATION: 07/01/2019 SURGICAL CONSULTATION HISTORY OF PRESENT ILLNESS: Ms. Brown is a very pleasant 78-year-old female who I evaluated in the hospital today at the request of the hospitalist service. REASON FOR THE CONSULTATION: New nodule of the right middle lobe of her lung. The patient says that she was at home when she tripped over a dog johnson causing a fall where she landed on her left side. Prior to her fall, she did not have any syncope or blackout or lightheadedness. She also denies any chest pain or shortness of breath preceding her fall. She states she landed on her right side and to the best of her knowledge, she did not lose consciousness. She says that fortunately, her sister who is visiting found her and summoned EMS. The patient was brought to the Emergency Department where she had numerous imaging studies performed. A chest x-ray showed no evidence of pneumonia, pneumothorax or rib fractures. CT scan of the head showed no acute finding such as a skull fracture. A pelvic x-ray did show a left femoral neck fracture. She had a CT scan of her abdomen that showed some diverticulosis and some mild diverticulitis at the sigmoid colon. CT scan of her abdomen also demonstrated a 9 mm nodule of the right middle lobe of her lung. Because of her left femoral neck fracture, the patient also underwent a CT scan of her left hip that showed a left femoral neck fracture as noted on the x-ray, but a lytic lesion was noted in the left femoral neck along with a lytic lesion noted in the anterior left iliac spine concerning for pathologic fracture. She also had a lumbar spine CT scan that was negative for any fractures or subluxations. The patient did have labs where she had a white blood cell count that is noted to be 18.8, hemoglobin, hematocrit and platelet count are all noted to be within the normal range. Coagulation studies were noted to be within normal range and her chemistry profile showed sodium, potassium and creatinine were all normal. Her BUN was elevated at 29. Calcium was slightly elevated at 10.2. Cardiac enzymes were negative. ProBNP was in the normal range. The patient has been admitted to the hospital for the above fracture. I did question the patient on a litany of symptoms. She says that she recently completed a course of steroids as an outpatient secondary to ongoing left hip pain. She says that the course of prednisone was only a week or 2 at most. She denies any ongoing use of chronic steroids. She says prior to yesterday, she has not had any recent falls. She denies any head injuries or visual changes, no tinnitus, vertigo, sore throat, or neck pain is noted. She denies any fever, shakes, or chills. She denies any chest pain. She says that she is able to perform her activities of daily living without difficulty and she can negotiate steps and inclines without shortness of breath or chest pain. She says that she does not have chronic shortness of breath or cough. She denies any hemoptysis. The patient currently has some mild pain in the left lower quadrant of her abdomen that is worse with palpation. She denies any change in bowel habits, melena or hematochezia. She says that she denies any change in appetite or early satiety, but she does admit to a 20-pound weight loss over the past year, but she says this is because she is taking care of her who is ill and she just does not take the time to eat properly. She does have some chronic left hip pain for which she was taking steroids as noted above, but denies any myalgias. She has no history of DVT or PE. She does suffer from depression. At the time of my exam, she was resting comfortably in bed and was not having significant pain as long as she laid still. PAST MEDICAL HISTORY: 1. Osteopenia. 2. Hypothyroidism. 3. Irritable bowel syndrome. 4. COPD. 5. GERD. 6. Hypertriglyceridemia. 7. History of adrenal cortical adenoma. 8. Depression. PAST SURGICAL HISTORY: Includes . ALLERGIES: INCLUDE TYLENOL, FLAGYL, CLARITHROMYCIN, HYDROCODONE, AND EFFEXOR. OUTPATIENT MEDICATIONS: Include the followin. Tylenol 500 mg every 6 hours as needed. 2. Aspirin 81 mg daily. 3. Biotin 10 mg daily. 4. Calcium carbonate 600 mg twice daily. 5. Celexa 60 mg daily. 6. Vitamin B12 1000 mcg daily. 7. Gemfibrozil 600 mg twice daily. 8. Levothyroxine 100 mcg daily. 9. Lorazepam 0.25 to 5 mg every 12 hours as needed. 10. Mobic 15 mg daily. 11. Fish oil 1 capsule daily. 12. Protonix 40 mg daily. 13. Vitamin D 1000 units daily. 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 She denies any exposures to any chemicals, pesticides or asbestos. She does have a history of smoking 1 pack of cigarettes per day for 70 years and is a current smoker. FAMILY HISTORY: Negative for cancer. REVIEW OF SYSTEMS: As noted above. PHYSICAL EXAMINATION: VITAL SIGNS: Blood pressure is 101/62, pulse 67 and regular, respirations are 18 and unlabored. She is afebrile. Temperature 36.6, pulse ox is 90% on room air. GENERAL: She is alert. She is oriented x3, in no distress. HEENT: Head is atraumatic, normocephalic. Eyes: Pupils equal, round and reactive to light and accommodation. Extraocular motions are intact. Ears: Her auditory acuity is grossly intact. Nose: Nasal patency was intact. Sinuses are nontender. Mouth is moist without exudates. NECK: Supple. There is no tracheal shift or stridor. CARDIOVASCULAR: Regular rate and rhythm. No murmurs were noted. LUNGS: Revealed some decreased breath sounds at the bases but overall clear to auscultation without rales, rhonchi, wheezing or use of accessory muscles. ABDOMEN: Soft and nondistended. She did have minimal amount of pain with palpation in the left lower quadrant. EXTREMITIES: Revealed no cyanosis, clubbing, or edema. She had palpable DP and radial pulses bilaterally. She did have pain with palpation of her left hip. NEUROLOGIC: Revealed cranial nerves II-XII are grossly intact. She can move all 4 extremities and follow simple commands without noted focal deficits and she was alert and oriented x3. DIAGNOSTIC DATA: As noted above. IMPRESSION: A 78-year-old female with a left hip fracture and new right pulmonary nodule. PLAN: Orthopedics has seen the patient and their consultation is noted and they feel the patient may require surgical stabilization. They wished the patient to have a bone scan to see if she has any other lytic lesions. Due to her pulmonary nodule, we will get a formal CT scan of her chest to see if she has any additional pulmonary nodules or any pathologic mediastinal adenopathy. In addition, the patient is currently being treated for mild diverticulitis. She is on antibiotics in the form of Unasyn. The concern is due to the patient's lytic lesions noted on imaging that this could represent a malignancy and at this time, we are unclear what the primary source of her malignancy is. It is quite possible that if orthopedics does surgical stabilization, they will be able to biopsy those areas in question and obtain an appropriate diagnosis. We will again proceed by getting a CT scan of the chest and additional recommendations will be forthcoming once we obtain this study and also see how orthopedics plan to proceed. We will continue to follow along while she is in the hospital.
[2019-07-01] MEDS: HYDROmorphone INJ 0.5 MG/0.5 ML SYR IV PRN ×3 (09:52→20:10)
[2019-07-01] MEDS ORDERED: KETOROLAC TROMETHAMINE 15 MG/ML VIAL IV ONE (14:55)
[2019-07-01] MEDS ORDERED: HYDROmorphone INJ 1 MG/ML SYRINGE IV ONE (14:56)
--- NOTE | 2019-07-01 15:31 | Consultation Report ---
DATE OF CONSULTATION: 07/01/2019 Ms. Burgos was seen today. For full details of this consultation, please refer to Mr. Stephan Au's note. This is a 78-year-old female who had a small right middle lobe nodule has marked mediastinal adenopathy and has what appears to be pathologic fractures. This patient probably has widely metastatic disease. At this point, I am hopeful that the orthopedic surgeons can obtain a biopsy tomorrow when they perform their procedure. That would obviate the need for anything bronchoscopically however, she may need a therapeutic bronchoscopy to clear out her mucoid impactions that are noted in the lower lobe.
[2019-07-01] MEDS ORDERED: GADOBUTROL 65ML VIAL IV PRN (16:28)
--- NOTE | 2019-07-01 16:50 | Magnetic Resonance Report ---
MR femur LT wo/w con CLINICAL HISTORY: 78 years-old Female presenting with Tumor possible fracture on CT, left hip pain, f all yesterday. TECHNIQUE: Multisequence, multiplanar MR imaging of the left femur was performed before and after the administration of intravenous contrast. IV contrast: 6 mL of Gadavist. COMPARISON: CT from yesterday. FINDINGS: Localizer images: Distended urinary bladder. Well-defined T1 hypointense, mildly T2 hyperintense lesion within the subcapital and transcervical po rtion of the left femoral neck measuring 3.6 cm in diameter. It is at this site that there is a trans versely oriented fracture of the subcapital left femoral neck. There is impaction at the fracture sit e and mild varus angulation. The femoral neck remains congruent in the acetabulum. The underlying les ion demonstrates minimal enhancement on postcontrast imaging. Significant enhancement of surrounding edematous musculature of the quadriceps muscle complex and abductor muscle group. Joint effusion note d in the left hip. Additional lesion evident within the left ilium involving the superior acetabulum. This demonstrates slightly more avid enhancement on postcontrast imaging and surrounding T2 hyperint ensity of the overlying gluteus minimus and trace fluid along the cortex at the interface with the le ft iliacus muscle. There is a potential that the superior acetabular lesion and left femoral neck les ion may result from direct extension across the left hip joint. No additional lesion is evident in th e visualized portion of the left femur, right femur, or pelvis. Notably the pelvis is not completely included within the [id number]. IMPRESSION: Pathologic fracture of the left femoral neck with an underlying lesion. There is also a distinct lesi on of the left superior acetabulum. There is the possibility of direct extension of disease across th e left hip joint given the proximity of these 2 lesions, which can be seen in the setting of lymphoma . Other malignancies are less likely to result in direct extension across the joint. Correlate for kn own underlying malignancy or lymphoproliferative disease. The report will be called/faxed according to standard departmental protocol. Electronically signed by: Zion Harrington M.D. 07/01/2019 4:48 PM
--- NOTE | 2019-07-01 17:23 | XRay Report ---
XR femur LT 2V routine CLINICAL HISTORY: Left hip fracture. COMPARISON: Left hip radiographs June 30, 2019. FINDINGS: The left femoral neck fracture is better depicted on the AP radiograph was performed in th e concurrent skeletal survey. The left femoral neck lesion is better appreciated by MRI. No additiona l left femoral lesions are identified by radiography. IMPRESSION: 1. Pathologic left femoral neck fracture which is better depicted on the AP image located within the skeletal survey. 2. No additional left femoral lesions by radiography. Electronically signed by: Александр Garay M.D. 07/01/2019 5:22 PM
--- NOTE | 2019-07-01 17:37 | XRay Report ---
XR bone survey CLINICAL HISTORY: lytic bone lesion, hip fracture COMPARISON: CT of the head, abdomen and pelvis and lumbar spine June 30, 2019. Chest CT July 01, 2019. MRI of the left femur July 01, 2019. FINDINGS: No suspicious lytic calvarial lesions are noted. No suspicious lesions are identified with in the cervical spine. A disc space narrowing is noted at C5-C6 and C6-C7. No suspicious lesions with in the thoracic or lumbar spines are noted. A 9 mm lucent lesion with sclerotic margin within the rig ht humeral head is probably benign. This is unchanged from earlier exams. Mild interstitial thickenin g is noted. There is underlying emphysema. The suspicious right lower lobe lesion shown on chest CT p erformed earlier today is not well visualized on this exam due to technique. Note is again made of a left femoral neck fracture which is now slightly angulated. The known left femoral neck lesion is not well-visualized by radiography. The known left acetabular lesion shown on MRI is not well visualized on this examination. No right femoral lesions are noted. No pelvic lesion is identified. There is co ntrast within the bladder from recent contrast-enhanced CT. IMPRESSION: 1. Acute pathologic left femoral neck fracture which is now slightly angulated and distracted. Underl angy lesion within the left femoral neck not well visualized by radiography. Left acetabular lesion o n MRI not well visualized even technique. 2. No lytic lesions identified by radiography. 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 Electronically signed by: Александр Garay M.D. 07/01/2019 5:36 PM
--- NOTE | 2019-07-01 17:44 | Orthopedic Progress Note ---
Date of Service July 01, 2019 Assessment & Plan (1) Closed fracture of neck of left femur: After discussion with the primary care team, it appears that the best option appears to proceed with hip fracture surgery as soon as possible. This will help her mobilize. The primary diagnosis for this pathologic fracture remains unknown; however, CT surgery is involved in evaluating HSED. We can send tissue after hemiarthroplasty for diagnosis as well. It is unlikely that the primary bone lesion. We will have the MRI and radiographs reviewed with radiology. After discussion the risks and benefits of surgery, the patient is agreeable to proceed. Also discussed the surgery risk and benefits with her daughter Aydee. The risks we discussed include but not limited to infection, neurovascular injury, need for repeat or revision procedures, hip instability, leg length discrepancy, blood clots, and blood loss, and complications related to anesthesia. Melissa and Aydee both asked appropriate questions, demonstrated good understanding, and would like to proceed with surgery. Informed consent was documented tonight. Subjective Care was seen in her room today medially after returning from MRI and x-ray. She reports continued pain at the left hip. She is anxious and ready to undergo surgery for hip fracture. We had a long discussion today regarding a partial hip replacement for her femoral neck fracture through pathologic bone and she is interested proceeding with this. She is agreeable to be n.p.o. at night Physical Exam Physical Exam: She appears in no distress, she is pleasant, and conversant. Musculoskeletal: No changes to her bilateral lower extremity exam. She remains with hip pain located the anterior left hip. She is neurovascularly intact. There is no significant edema distally. Results & Data Vital Signs (Past 12 Hours) Vital Signs Temp Pulse Pulse Resp BP Pulse Ox 07/01/19 15:33 75 07/01/19 07:44 36.6 C 67 18 101/62 90 07/01/19 07:09 65 Radiographs reviewed and indeed there is a femoral neck fracture most evident on the compression side. There is lytic lesions. MRIs cursorily reviewed. There is a lesion throughout the femoral neck. PG Care Time/CCT Total # of Minutes Spent Total Time Spent with Patient: Total time spent is greater than 50% [facility] (as documented) at patient's floor/unit and/or counseling patient: (1) Closed fracture of neck of left femur Encounter type: initial encounter Qualified Code(s): S72.002A - Fracture of unspecified part of neck of left femur, initial encounter for closed fracture :
--- NOTE | 2019-07-01 21:56 | Hospitalist Progress Note ---
Date of Service July 01, 2019 Assessment & Plan (1) Closed fracture of neck of left femur: patient will need surgical correction, plan for cemented hemiarthroplasty tomorrow MRI femur 07/01 shows lesion in the left femoral neck with a pathological fracture as well as lesion in the left acetabulum, lesions could be connected given proximity pain management with Dilaudid IV, working well no significant heart history, no CAD, no arrhythmias, no valve disease Cr is stable no chronic lung disease has diverticulitis but no pain, blood cultures negative she would be medically optimized at this time (2) Diverticulitis: elevated WBC to 18K. extensive diverticulosis seen on the CT with minimal diverticulitis continue Zosyn, responding well, no pain, WBC down to 12k today, no fever blood cultures negative (3) Pulmonary nodule: 9mm nodule seen in right lung CT chest today with numerous subcentimeter nodules hilar, subcarinal adenopathy d/w Dr. Mcallister, no work up at this time, defer to getting tissue from hip on surgery tomorrow (4) Cigarette smoker: Pt advised to quit and offered nicotine patch.Pt has been smoking >50 years 1ppd. (5) COPD (chronic obstructive pulmonary disease): no wheezing, no distress on exam continue breathing treatments (6) Situational depression: (7) Hypothyroidism: Stable, cont levothyroxine 100 mcg daily. TSH normal. Subjective patient in pain today, left hip, morphine did not help, Dilaudid 0.5mg IV helped more, able to rest moving in bed aggravates the pain so patient trying to lay still she says that she has no abdominal pain, no fever or chills breathing is stable, no chest pain discussed the case with Dr. Mcallister, concern for pulmonary nodule reviewed CT of the chest done today, numerous sub centimeter nodules and lymphadenopathy but no definitive mass Dr. Mcallister recommends getting tissue sample from bone in hip during surgery discussed with Dr. Mejia, he recommended MRI of the femur to determine if it could be primary bone tumor reviewed results of the MRI, lytic lesion in acetabulum, possibly crossing joint, differential would be a lymphoma Dr. Mejia plans for cemented hemiarthroplasty tomorrow afternoon patient agrees with surgery updated patient's daughter on the phone reviewed labs, WBC down to 12k from 18k, Hb down slightly BMP with normal Cr and electrolytes Review of Systems Review of Systems: All systems reviewed & are unremarkable except as noted in HPI & below Constitutional: + fatigue and + weakness; no fever, no chills and no sweats Respiratory: no cough and no dyspnea Cardiovascular: no chest pain, no palpitations and no edema Gastrointestinal: + early satiety; no abdominal pain, no nausea, no vomiting, no constipation and no diarrhea/loose stools Musculoskeletal: + joint pain (left hip, severe) Physical Exam Constitutional: WD/WN, vitals as above + in distress (mild, due to pain) Eyes: PERRL, conjunctivae normal, anicteric sclerae ENMT: external ear and nose normal, oropharynx normal Neck: trachea midline, no thyromegaly Respiratory: normal respiratory effort, lungs clear to auscultation Cardiovascular: RRR, no murmur, no edema Gastrointestinal (Abdomen): normal bowel sounds, soft, nontender, no hepatosplenomegaly Musculoskeletal: Head/Neck/Chest: normocephalic and head atraumatic Extremities: + limited ROM of extremities (left hip due to pain) and + leg internally rotated (left, shortened); no cyanosis, no clubbing and no petechiae Skin: no rashes, warm and dry Neurologic: patellar DTR's 2+ bilat, sensation intact and PERRL, EOMI, accommodation nl, no face palsy, no dysarthria Psychiatric: A+Ox3, euthymic affect Lymphatic: no cervical or axillary lymphadenopathy Results & Data Vital Signs (Past 12 Hours) Vital Signs Temp Pulse Pulse Resp BP Pulse Ox 07/01/19 19:29 36.5 C 68 18 93/54 L 90 07/01/19 15:33 75 Laboratory Results Laboratory Results - last 24 hr 07/01/19 07/01/19 07/01/19 07:59 07:59 15:35 WBC 12.35 H RBC 3.86 L Hgb 11.7 L Hct 36.2 L MCV 93.8 MCH 30.3 MCHC 32.3 RDW Std Deviation 46.7 H RDW Coeff of Raymundo 13.6 Plt Count 213 MPV 9.8 Immature Gran % (Auto) 0.2 Neut % (Auto) 80.1 Lymph % (Auto) 11.1 [place] % (Auto) 7.5 Eos % (Auto) 1.0 Baso % (Auto) 0.1 Immature Gran # (Auto) 0.03 H Neut # (Auto) 9.89 H Lymph # (Auto) 1.37 [place] # (Auto) 0.93 H Eos # (Auto) 0.12 Baso # (Auto) 0.01 Sodium 139 Potassium 3.8 Chloride 105 Carbon Dioxide 28 Anion Gap 5.0 BUN 23 H Creatinine 0.98 Est Cr Clr Drug Dosing 41.3 Est GFR ( Amer) 64.9 Est GFR (Non-Af Amer) 56.0 BUN/Creatinine Ratio 23.8 H Glucose 102 H POC Glucose 118 H Calcium 9.[address] chest wo con IMPRESSION: 1. Mediastinal lymphadenopathy including a 17 mm subcarinal lymph node 2. 21 mm right infrahilar mass/adenopathy 3. Right lower lobe atelectasis/consolidation. 4. Areas of lower lobe mucoid impaction 5. Scattered bilateral subcentimeter solid pulmonary nodules 6. Emphysema 7. Pulmonary consultation for consideration of bronchoscopic evaluation is recommended. MRI Femur IMPRESSION: Pathologic fracture of the left femoral neck with an underlying lesion. There is also a distinct lesion of the left superior acetabulum. There is the possibility of direct extension of disease across the left hip joint given the proximity of these 2 lesions, which can be seen in the setting of lymphoma. Other malignancies are less likely to result in direct extension across the joint. Correlate for known underlying malignancy or lymphoproliferative disease. Medications Administered Current Inpatient Medications Acetaminophen (Tylenol) 650 mg PO Q4H PRN PRN Reason: Pain or Fever Stop: 07/30/19 18:13 Last Admin: 07/01/19 07:47 Dose: 650 mg Documented by: Al Hydrox/Mg Hydrox/Simethicone (Maalox) 15 ml PO Q4H PRN PRN Reason: Dyspepsia Stop: 07/30/19 18:13 Aspirin (Ecotrin Ectab) 81 mg PO DAILY [facility] Stop: 07/31/19 08:59 Last Admin: 07/01/19 07:42 Dose: 81 mg Documented by: Citalopram Hydrobromide (Celexa) 60 mg PO QAM [facility] Stop: 07/31/19 08:59 Last Admin: 07/01/19 07:43 Dose: 60 mg Documented by: Cyanocobalamin (Vitamin B-12) 1,000 mcg PO QAM [facility] Stop: 07/31/19 08:59 Last Admin: 07/01/19 07:42 Dose: 1,000 mcg Documented by: Fentanyl (Duragesic) 25 mcg TD Q3D@2030 [facility] Stop: 07/14/19 20:29 Last Admin: 06/30/19 20:33 Dose: Not Given Documented by: Fish Oil ([place]-3 (Purified Fish Oil)) 1 gm PO QAM [facility] Stop: 07/31/19 08:59 Last Admin: 07/01/19 07:42 Dose: 1 gm Documented by: Gadobutrol (Gadavist 65ml) 6 ml IV ONCE PRN PRN Reason: Interaction Checking Stop: 07/05/19 16:27 Last Admin: 07/01/19 16:28 Dose: 6 ml Documented by: Gemfibrozil (Lopid) 600 mg PO BID [facility] Stop: 07/30/19 20:59 Last Admin: 07/01/19 20:17 Dose: 600 mg Documented by: Heparin Sodium (Porcine) (Heparin Sodium (Porcine)) 5,000 units SQ Q8 [facility] Stop: 07/31/19 05:59 Last Admin: 07/01/19 21:17 Dose: 5,000 units Documented by: Hydromorphone HCl (Dilaudid) 0.5 mg IV Q4 PRN PRN Reason: Pain Stop: 07/15/19 09:34 Last Admin: 07/01/19 20:10 Dose: 0.5 mg Documented by: Ampicillin Sodium/Sulbactam Sodium 3,000 mg/ Sodium Chloride 108 mls @ 200 mls/hr IV Q6H [facility]; Protocol Stop: 07/11/19 01:59 Last Infusion: 07/01/19 20:56 Dose: Infused Documented by: Levothyroxine Sodium (Synthroid) 100 mcg PO DAILYBB [facility] Stop: 07/31/19 06:29 Last Admin: 07/01/19 05:52 Dose: 100 mcg Documented by: Lorazepam (Ativan) 0.25 - 0.5 mg PO Q12H PRN PRN Reason: Anxiety Stop: 07/30/19 18:13 Last Admin: 07/01/19 03:43 Dose: 0.5 mg Documented by: Magnesium Hydroxide (Milk Of Magnesia) 30 ml PO Q12H PRN PRN Reason: Constipation Stop: 07/30/19 18:13 Miscellaneous (Fentanyl Patch Check Placement) 1 ea N/A QS JOSE E Stop: 07/31/19 00:00 Last Admin: 07/01/19 17:37 Dose: 1 ea Documented by: Miscellaneous (Fentanyl Patch Remove & Waste) 1 ea N/A Q3D [facility] Stop: 08/02/19 20:28 Morphine Sulfate (Morphine Sulfate) 2 mg IV Q3H PRN PRN Reason: Pain Stop: 07/14/19 18:31 Last Admin: 07/01/19 08:34 Dose: 2 mg Documented by: Multivitamins/Minerals (Caltrate Plus) 1 tab PO BID [facility] Stop: 07/30/19 20:59 Last Admin: 07/01/19 20:16 Dose: 1 tab Documented by: Ondansetron HCl (Zofran) 4 mg IV Q6H PRN PRN Reason: Nausea Stop: 07/30/19 18:13 Pantoprazole Sodium (Protonix) 40 mg PO QAM [facility] Stop: 07/31/19 08:59 Last Admin: 07/01/19 07:42 Dose: 40 mg Documented by: Polyethylene Glycol (Miralax Powder Packet) 17 gm PO DAILY PRN PRN Reason: Constipation Stop: 07/30/19 18:13 Vitamin E (Vitamin E) 800 units PO QAM [facility] Stop: 07/31/19 08:59 Last Admin: 07/01/19 07:42 Dose: 800 units Documented by: Vitamin E (Vitamin E) 200 units PO QAM [facility] Stop: 07/31/19 08:59 Last Admin: 07/01/19 07:42 Dose: 200 units Documented by: Zolpidem Tartrate (Ambien) 5 mg PO HS PRN PRN Reason: Sleep Stop: 07/30/19 18:13 Last Admin: 06/30/19 20:58 Dose: 5 mg Documented by: PG Care Time/CCT Total # of Minutes Spent Total Time Spent with Patient: Total time spent is greater than 50% in coordination of care (as documented) at patient's floor/unit and/or counseling patient: (1) Closed fracture of neck of left femur Encounter type: initial encounter Qualified Code(s): S72.002A - Fracture of unspecified part of neck of left femur, initial encounter for closed fracture
[2019-07-02] MEDS: CHECK FENTANYL PATCH PLACEMENT SCH ×2 (01:07→08:14)
[2019-07-02] MEDS: AMPICILLIN/SULBACTAM SOD 3,000 MG in 0.9 % SODIUM CHLORIDE 100 ML IV SCH ×4 (01:07→21:08)
[2019-07-02] MEDS: MoRPHine SULFATE 2 MG/ML CARP IV PRN (01:08)
[2019-07-02] MEDS: LEVOTHYROXINE SODIUM 100 MCG TABLET PO SCH (05:49)
[2019-07-02 05:50] LABS: Basophils # (auto) 0.03 K/uL (0-0.2); Basophils % (auto) 0.3 %; Eosinophils # (auto) 0.18 K/uL (0-0.5); Eosinophils % (auto) 1.5 %; Hematocrit (blood only) 34.1 % (37-47); Hemoglobin 10.9 g/dL (12.0-16.0); Immature Granulocytes # (auto) 0.03 K/uL (0.00-0.02); Immature Granulocytes % (auto) 0.3 %; Lymphocytes # (auto) 1.11 K/uL (1.2-3.4); Lymphocytes % (auto) 9.3 %; Mean Corpuscular Hemoglobin 30.4 pg (25-34); Mean Corpuscular Volume 95.3 fL (80-100); Mean Platelet Volume 9.7 fL (7.4-10.4); Monocytes # (auto) 1.19 K/uL (0.11-0.59); Monocytes % (auto) 9.9 %; Neutrophils # (auto) 9.42 K/uL (1.4-6.5); Neutrophils % (auto) 78.7 %; Platelet Count 174 K/uL (130-400); RDW Coefficient of Variation 13.4 % (11.5-14.5); RDW Standard Deviation 47.1 fL (36.4-46.3); Red Blood Count 3.58 M/uL (4.2-5.4); White Blood Count 11.96 K/uL (4.8-10.8)
[2019-07-02 06:23] LABS: BUN Creatinine Ratio 31.1 (10-20); Calcium 9.1 mg/dl (8.5-10.1); Creatinine Clr Calc Pharmacy 41.7 ml/min; Est GFR (African American) 65.8; Est GFR (Non-African American) 56.7; Potassium 3.8 mmol/L (3.5-5.1)
[2019-07-02] MEDS: CYANOCOBALAMIN 500 MCG TABLET (VITAMIN B-12) PO SCH (07:31)
[2019-07-02] MEDS: TOCOPHERYL, DL-ALPHA 400 UNITS CAP PO SCH (07:31)
[2019-07-02] MEDS: CALCIUM 600MG + VIT D 400 IU TAB PO SCH (07:31)
[2019-07-02] MEDS: PANTOprazole 40 MG TAB PO SCH (07:31)
[2019-07-02] MEDS: ASPIRIN 81 MG ECTAB PO SCH ×2 (07:31→21:02)
[2019-07-02] MEDS: CITALOPRAM 20 MG TAB PO SCH (07:31)
[2019-07-02] MEDS: OMEGA-3 (PURIFIED FISH OIL) 1 GM CAP PO SCH (07:31)
[2019-07-02] MEDS: GEMFIBROZIL 600 MG TAB PO SCH ×2 (07:31→21:03)
[2019-07-02] MEDS: TOCOPHERYL, DL-ALPHA 100 UNITS CAP PO SCH (07:32)
[2019-07-02] MEDS: HYDROmorphone INJ 0.5 MG/0.5 ML SYR IV PRN (08:13)
--- NOTE | 2019-07-02 10:25 | Hospitalist Progress Note ---
Date of Service July 02, 2019 Assessment & Plan (1) Closed fracture of neck of left femur: patient will need surgical correction, plan for cemented hemiarthroplasty later today with Dr. Mejia MRI femur 07/01 shows lesion in the left femoral neck with a pathological fracture as well as lesion in the left acetabulum, lesions could be connected given proximity pain management with Dilaudid IV, working well no significant heart history, no CAD, no arrhythmias, no valve disease Cr is stable no chronic lung disease has diverticulitis but no pain, blood cultures negative she is medically optimized at this time (2) Diverticulitis: elevated WBC to 18K on admission. extensive diverticulosis seen on the CT with minimal diverticulitis continue Zosyn, responding well, no pain, WBC down to 11k today, no fever blood cultures negative (3) Pulmonary nodule: 9mm nodule seen in right lung CT chest 07/01 with numerous subcentimeter nodules hilar, subcarinal adenopathy d/w Dr. Mcallister, no work up at this time, defer to getting tissue from femur today (4) Cigarette smoker: Pt advised to quit and offered nicotine patch.Pt has been smoking >50 years 1ppd. (5) COPD (chronic obstructive pulmonary disease): no wheezing, no distress on exam continue breathing treatments (6) Situational depression: (7) Hypothyroidism: Stable, cont levothyroxine 100 mcg daily. TSH normal. Subjective patient feeling okay this AM still with left hip pain but no other issues no abdominal pain, no chest pain, no dyspnea, no cough, no fever/chills reviewed labs, WBC down to 11k, Hb 10.9, Cr is 0.97 and electrolytes stable plan for OR later today Review of Systems Review of Systems: All systems reviewed & are unremarkable except as noted in HPI & below Musculoskeletal: + joint pain (left hip, severe) Physical Exam Constitutional: WD/WN, vitals as above + in distress (mild, due to pain) Eyes: PERRL, conjunctivae normal, anicteric sclerae ENMT: external ear and nose normal, oropharynx normal Neck: trachea midline, no thyromegaly Respiratory: normal respiratory effort, lungs clear to auscultation Cardiovascular: RRR, no murmur, no edema Gastrointestinal (Abdomen): normal bowel sounds, soft, nontender, no hepatosplenomegaly Musculoskeletal: Head/Neck/Chest: normocephalic and head atraumatic Extremities: + limited ROM of extremities (left hip due to pain) and + leg internally rotated (left, shortened); no cyanosis, no clubbing and no petechiae Skin: no rashes, warm and dry Neurologic: patellar DTR's 2+ bilat, sensation intact and PERRL, EOMI, accommodation nl, no face palsy, no dysarthria Psychiatric: A+Ox3, euthymic affect Lymphatic: no cervical or axillary lymphadenopathy Results & Data Vital Signs (Past 12 Hours) Vital Signs Temp Pulse Pulse Pulse Resp BP Pulse Ox 07/02/19 07:44 36.8 C 84 18 102/62 95 07/02/19 04:50 37.1 C 73 20 103/63 92 07/01/19 23:16 36.9 C 67 16 103/65 90 07/01/19 23:00 67 Laboratory Results Laboratory Results - last 24 hr 07/01/19 07/02/19 07/02/19 15:35 05:33 05:33 WBC 11.96 H RBC 3.58 L Hgb 10.9 L Hct 34.1 L MCV 95.3 MCH 30.4 MCHC 32.0 RDW Std Deviation 47.1 H RDW Coeff of Raymundo 13.4 Plt Count 174 MPV 9.7 Immature Gran % (Auto) 0.3 Neut % (Auto) 78.7 Lymph % (Auto) 9.3 [place] % (Auto) 9.9 Eos % (Auto) 1.5 Baso % (Auto) 0.3 Immature Gran # (Auto) 0.03 H Neut # (Auto) 9.42 H Lymph # (Auto) 1.11 L [place] # (Auto) 1.19 H Eos # (Auto) 0.18 Baso # (Auto) 0.03 Sodium 140 Potassium 3.8 Chloride 105 Carbon Dioxide 29 Anion Gap 6.0 BUN 30 H Creatinine 0.97 Est Cr Clr Drug Dosing 41.7 Est GFR ( Amer) 65.8 Est GFR (Non-Af Amer) 56.7 BUN/Creatinine Ratio 31.1 H Glucose 92 POC Glucose 118 H Calcium 9.1 Medications Administered Current Inpatient Medications Acetaminophen (Tylenol) 650 mg PO Q4H PRN PRN Reason: Pain or Fever Stop: 07/30/19 18:13 Last Admin: 07/01/19 07:47 Dose: 650 mg Documented by: Al Hydrox/Mg Hydrox/Simethicone (Maalox) 15 ml PO Q4H PRN PRN Reason: Dyspepsia Stop: 07/30/19 18:13 Aspirin (Ecotrin Ectab) 81 mg PO DAILY [facility] Stop: 07/31/19 08:59 Last Admin: 07/02/19 07:31 Dose: Not Given Documented by: Citalopram Hydrobromide (Celexa) 60 mg PO QAM [facility] Stop: 07/31/19 08:59 Last Admin: 07/02/19 07:31 Dose: Not Given Documented by: Cyanocobalamin (Vitamin B-12) 1,000 mcg PO QAM [facility] Stop: 07/31/19 08:59 Last Admin: 07/02/19 07:31 Dose: Not Given Documented by: Fentanyl (Duragesic) 25 mcg TD Q3D@2030 [facility] Stop: 07/14/19 20:29 Last Admin: 06/30/19 20:33 Dose: Not Given Documented by: Fish Oil ([place]-3 (Purified Fish Oil)) 1 gm PO QAM [facility] Stop: 07/31/19 08:59 Last Admin: 07/02/19 07:31 Dose: Not Given Documented by: Gadobutrol (Gadavist 65ml) 6 ml IV ONCE PRN PRN Reason: Interaction Checking Stop: 07/05/19 16:27 Last Admin: 07/01/19 16:28 Dose: 6 ml Documented by: Gemfibrozil (Lopid) 600 mg PO BID [facility] Stop: 07/30/19 20:59 Last Admin: 07/02/19 07:31 Dose: Not Given Documented by: Hydromorphone HCl (Dilaudid) 0.5 mg IV Q4 PRN PRN Reason: Pain Stop: 07/15/19 09:34 Last Admin: 07/02/19 08:13 Dose: 0.5 mg Documented by: Ampicillin Sodium/Sulbactam Sodium 3,000 mg/ Sodium Chloride 108 mls @ 200 mls/hr IV Q6H [facility]; Protocol Stop: 07/11/19 01:59 Last Infusion: 07/02/19 08:47 Dose: Infused Documented by: Levothyroxine Sodium (Synthroid) 100 mcg PO DAILYBB [facility] Stop: 07/31/19 06:29 Last Admin: 07/02/19 05:49 Dose: Not Given Documented by: Lorazepam (Ativan) 0.25 - 0.5 mg PO Q12H PRN PRN Reason: Anxiety Stop: 07/30/19 18:13 Last Admin: 07/01/19 03:43 Dose: 0.5 mg Documented by: Magnesium Hydroxide (Milk Of Magnesia) 30 ml PO Q12H PRN PRN Reason: Constipation Stop: 07/30/19 18:13 Miscellaneous (Fentanyl Patch Check Placement) 1 ea N/A QS [facility] Stop: 07/31/19 00:00 Last Admin: 07/02/19 08:14 Dose: 1 ea Documented by: Miscellaneous (Fentanyl Patch Remove & Waste) 1 ea N/A Q3D [facility] Stop: 08/02/19 20:28 Morphine Sulfate (Morphine Sulfate) 2 mg IV Q3H PRN PRN Reason: Pain Stop: 07/14/19 18:31 Last Admin: 07/02/19 01:08 Dose: 2 mg Documented by: Multivitamins/Minerals (Caltrate Plus) 1 tab PO BID [facility] Stop: 07/30/19 20:59 Last Admin: 07/02/19 07:31 Dose: Not Given Documented by: Ondansetron HCl (Zofran) 4 mg IV Q6H PRN PRN Reason: Nausea Stop: 07/30/19 18:13 Pantoprazole Sodium (Protonix) 40 mg PO QAM [facility] Stop: 07/31/19 08:59 Last Admin: 07/02/19 07:31 Dose: Not Given Documented by: Polyethylene Glycol (Miralax Powder Packet) 17 gm PO DAILY PRN PRN Reason: Constipation Stop: 07/30/19 18:13 Vitamin E (Vitamin E) 800 units PO QAM [facility] Stop: 07/31/19 08:59 Last Admin: 07/02/19 07:31 Dose: Not Given Documented by: Vitamin E (Vitamin E) 200 units PO QAM [facility] Stop: 07/31/19 08:59 Last Admin: 07/02/19 07:32 Dose: Not Given Documented by: Zolpidem Tartrate (Ambien) 5 mg PO HS PRN PRN Reason: Sleep Stop: 07/30/19 18:13 Last Admin: 06/30/19 20:58 Dose: 5 mg Documented by: PG Care Time/CCT Total # of Minutes Spent Total Time Spent with Patient: Total time spent is greater than 50% in coordination of care (as documented) at patient's floor/unit and/or counseling patient: (1) Closed fracture of neck of left femur Encounter type: initial encounter Qualified Code(s): S72.002A - Fracture of unspecified part of neck of left femur, initial encounter for closed fracture
[2019-07-02] MEDS ORDERED: MIDAZOLAM HCL 1 MG/ML 2ML VIAL ONE (11:13)
[2019-07-02] MEDS ORDERED: fentaNYL citrate 100 MCG/2 ML VIAL ONE (11:13)
--- NOTE | 2019-07-02 12:14 | Anesthesiology Consultation ---
Date of Service July 02, 2019 Assessment & Plan (1) Encounter for pre-operative examination: Chart Review Chart Review: Acceptable Risk for Surgery History Surgery Operation Date: 07/02/19 12:30 Proposed Procedures p Left Hip Hemiarthroplasty - Dimitri Mejia Height/Weight Height: 5 ft 3.5 in Weight: 61.4 kg Allergies Allergy/AdvReac Type Severity Reaction Status Date / Time acetaminophen [From Vicodin] Allergy Verified 06/30/19 12:46 metronidazole [From Flagyl] Allergy Verified 06/30/19 12:46 clarithromycin AdvReac Mild N/V Verified 06/12/19 13:27 hydrocodone AdvReac Mild N/V Verified 06/12/19 13:27 venlafaxine AdvReac Mild N/V Verified 06/12/19 13:27 Medications Home Medications Medication Instructions Recorded Confirmed Last Taken biotin 10 mg tablet 10 mg PO QAM 04/11/19 06/30/19 06/30/19 calcium carbonate 600 mg calcium 600 mg PO BID tab 04/11/19 06/30/19 06/30/19 (1,500 mg) tablet citalopram 40 mg tablet 60 mg PO QAM #135 tab 04/11/19 06/30/19 06/30/19 cyanocobalamin (vit B-12) 1,000 1,000 mcg PO QAM tab 04/11/19 06/30/19 06/30/19 mcg tablet gemfibrozil 600 mg tablet 600 mg PO BID #180 tab 04/11/19 06/30/19 06/30/19 levothyroxine 100 mcg tablet 100 mcg PO QAM #90 tab 04/11/19 06/30/19 06/30/19 lorazepam 0.5 mg tablet 0.25 - 0.5 mg PO Q12H PRN #20 tab 04/11/19 06/30/19 Unknown vitamin E 1,000 unit capsule 1,000 units PO QAM 04/11/19 06/30/19 06/30/19 acetaminophen [Tylenol Extra 500 mg PO Q6H PRN 06/30/19 06/30/19 06/30/19 10:00 Strength] 1000mg aspirin 81 mg PO DAILY 06/30/19 06/30/19 06/30/19 meloxicam 15 mg PO QAM 06/30/19 06/30/19 06/30/19 omega-3 acid ethyl esters 1 cap PO QAM 06/30/19 06/30/19 06/30/19 pantoprazole 40 mg PO QAM 06/30/19 06/30/19 06/30/19 Active Medications Generic Name Dose Route Start Last Admin Trade Name Freq PRN Reason Stop Dose Admin Acetaminophen 650 mg 06/30/19 18:14 07/01/19 07:47 Tylenol PO 07/30/19 18:13 650 mg Q4H PRN Administration Pain or Fever Aspirin 81 mg 07/01/19 09:00 07/02/19 07:31 Ecotrin Ectab PO 07/31/19 08:59 Not Given DAILY [facility] Citalopram Hydrobromide 60 mg 07/01/19 09:00 07/02/19 07:31 Celexa PO 07/31/19 08:59 Not Given QAM [facility] Cyanocobalamin 1,000 mcg 07/01/19 09:00 07/02/19 07:31 Vitamin B-12 PO 07/31/19 08:59 Not Given QAM [facility] Fentanyl 25 mcg 06/30/19 20:30 06/30/19 20:33 Duragesic TD 07/14/19 20:29 Not Given Q3D@2030 [facility] Fish Oil 1 gm 07/01/19 09:00 07/02/19 07:31 [place]-3 (Purified Fish Oil) PO 07/31/19 08:59 Not Given QAM [facility] Gadobutrol 6 ml 07/01/19 16:28 07/01/19 16:28 Gadavist 65ml IV 07/05/19 16:27 6 ml ONCE PRN Administration Interaction Checking Gemfibrozil 600 mg 06/30/19 21:00 07/02/19 07:31 Lopid PO 07/30/19 20:59 Not Given BID [facility] Hydromorphone HCl 0.5 mg 07/01/19 09:35 07/02/19 08:13 Dilaudid IV 07/15/19 09:34 0.5 mg Q4 PRN Administration Pain Ampicillin Sodium/Sulbactam 108 mls @ 200 mls/hr 07/01/19 02:00 07/02/19 08:47 Sodium 3,000 mg/ Sodium IV 07/11/19 01:59 Infused Chloride Q6H JOSE E Infusion Protocol Levothyroxine Sodium 100 mcg 07/01/19 06:30 07/02/19 05:49 Synthroid PO 07/31/19 06:29 Not Given DAILYBB JOSE E Lorazepam 0.25 - 0.5 mg 06/30/19 18:14 07/01/19 03:43 Ativan PO 07/30/19 18:13 0.5 mg Q12H PRN Administration Anxiety Miscellaneous 1 ea 07/01/19 00:00 07/02/19 08:14 Fentanyl Patch Check Placement N/A 07/31/19 00:00 1 ea QS JOSE E Administration Morphine Sulfate 2 mg 06/30/19 18:32 07/02/19 01:08 Morphine Sulfate IV 07/14/19 18:31 2 mg Q3H PRN Administration Pain Multivitamins/Minerals 1 tab 06/30/19 21:00 07/02/19 07:31 Caltrate Plus PO 07/30/19 20:59 Not Given BID JOSE E Pantoprazole Sodium 40 mg 07/01/19 09:00 07/02/19 07:31 Protonix PO 07/31/19 08:59 Not Given QAM [facility] Vitamin E 800 units 07/01/19 09:00 07/02/19 07:31 Vitamin E PO 07/31/19 08:59 Not Given QAM [facility] Vitamin E 200 units 07/01/19 09:00 07/02/19 07:32 Vitamin E PO 07/31/19 08:59 Not Given QAM [facility] Zolpidem Tartrate 5 mg 06/30/19 18:14 06/30/19 20:58 Ambien PO 07/30/19 18:13 5 mg HS PRN Administration Sleep Past Medical History Medical History Situational depression (Acute) Osteopenia (Acute) Irritable bowel syndrome (Acute) Hypothyroidism (Acute) History of pneumonia (Acute) Gastroesophageal reflux disease (Acute) Fatigue (Acute) Essential hypertriglyceridemia (Acute) Esophageal dyskinesia (Acute) Depression (Acute) Adrenal cortical adenoma (Acute) Abnormal electrocardiogram (Acute) Past Surgical History Surgical History S/P section Social History Smoking Status: Current every day smoker tobacco type: cigarettes Smoking cigarettes per day: 10 Do You Dip or Chew Tobacco: No Hx Alcohol Use: No Hx Substance Use: No substance use type: does not use Physical Exam Vital Signs Last Vital Signs Temp 36.7 C 07/02/19 11:42 Pulse 75 07/02/19 11:42 Resp 18 07/02/19 11:42 BP 102/59 L 07/02/19 11:42 Pulse Ox 90 07/02/19 11:42 Testing Laboratory Results 07/02/19 05:33 07/02/19 05:33 PT 10.6 Seconds (9.0-12.0) 06/30/19 13:37 INR 1.0 (0.9-1.1) 06/30/19 13:37 Electrocardiogram Date: 06/30/19 Findings: + NSR @ (60) Chest X-Ray Date: 06/30/19 Findings: + NAD
[2019-07-02] MEDS ORDERED: PROPOFOL IV EMULSION 10 MG/ML 20 ML VIAL IV ONE ×2 (12:16→14:01)
[2019-07-02] MEDS ORDERED: CEFAZOLIN 1000MG 1,000 MG/7.5 ML SYR IV ONE (12:23)
[2019-07-02] MEDS ORDERED: CEFAZOLIN 1,000 MG/7.5 ML IV PUSH IV ONE (12:24)
[2019-07-02] MEDS ORDERED: HYDROmorphone INJ 1 MG/ML SYRINGE IV PRN (12:26)
[2019-07-02] MEDS ORDERED: PHENYLEPHRINE 100MCG/ML 5ML SYR IV PRN (12:26)
[2019-07-02] MEDS ORDERED: ATROPINE SULFATE 0.1 MG/ML 10ML SYR IV PRN (12:26)
[2019-07-02] MEDS ORDERED: ONDANSETRON INJ 2 MG/ML 2 ML VIAL IV PRN ×2 (12:26→15:59)
[2019-07-02] MEDS ORDERED: ePHEDrine sulfate 50 MG/ML AMP IV PRN (12:26)
--- NOTE | 2019-07-02 12:28 | History & Physical Bridge Note ---
Date of Service July 02, 2019 History & Physical Bridge Note I have examined the patient, reviewed the History & Physical and in the interval since the performance of the History & Physical I have noted the following changes of clinical significance: no changes noted. Discussed surgery once again with patient and her daughter, Aydee in the preop area. The MRI shows extensive involvement of the femoral neck and also the ilium and superior acetabulum. We reviewed options for teresa vs total hip arthroplasty, and I let them know that I've discussed the case with partners. The most optimal surgery right now is to treat the fracture with cemented hemiarthroplasty. We will send the femoral neck for tissue analysis, which may provide details on diagnosis. Informed consent reviewed and confirmed. Surgical site was identified by the patient and signed by me.
[2019-07-02] MEDS ORDERED: BACITRACIN INJ 50,000 UNIT VIAL ONE (12:29)
[2019-07-02] MEDS ORDERED: BUPIVACAINE/EPINEPHRINE 0.5% MPF 1:200,000 30 ML VIAL ONE (12:29)
[2019-07-02] MEDS ORDERED: LACTATED RINGER'S 1,000 ML IV SCH (13:00)
[2019-07-02] MEDS ORDERED: PHENYLEPHRINE HCL 10 MG/ML VIAL ONE (14:24)
[2019-07-02] MEDS ORDERED: LIDOCAINE HCL 2% 2 ML VIAL/AMP(20MG/ML) INFIL ONE (14:24)
--- NOTE | 2019-07-02 15:22 | Post Operative Brief Note ---
PG Immediate Post Op with CF Date of Surgery July 02, 2019 Pre & Post Diagnosis Operation Date: 07/02/19 12:30 Pre-Op Diagnosis: Non-Displaced Left Femoral Neck Fracture Post-Op Diagnosis: Non-Displaced Left Femoral Neck Fracture Procedure Operation Date: 07/02/19 12:30 Actual Procedures p Left Hip Hemiarthroplasty--Cemented(Left) - Dimitri Mejia Surgeon Dimitri Mejia Belt Loop Cutter prieto rodriguez Estimated Blood Loss 200 Findings See Below (Atypical femoral neck bonesent for fresh pathology) Specimens Specimen Description: A. Left Femoral Head--FRESH--sent to lab at 1356 Drains Montaño Catheter (A 16 Nigerien montaño catheter was inserted by Valarie Szymanski RN, without difficulty, clear yellow urine obtained, output to be monitored by Anesthesia.)
--- NOTE | 2019-07-02 15:38 | Operative Report ---
PG Post Operative Report Pre & Post Diagnosis Operation Date: 07/02/19 12:30 Pre-Op Diagnosis: Pathologic Left Femoral Neck Fracture Post-Op Diagnosis: Pathologic Left Femoral Neck Fracture Procedure Operation Date: 07/02/19 12:30 Actual Procedures p Left Hip Hemiarthroplasty--Cemented(Left) - Dimitri Mejia Surgeon Dimitri Mejia Precision Lens Grinder Apprentice prieto rodriguez Estimated Blood Loss 200 Findings See Below There was very poor bone quality in the femoral neck. During the femoral neck cut was crumbling of the surrounding femoral neck cortical bone. The femoral neck was taken out pieces, and the femoral head was extracted as one piece. It was clearly atypical bone as expected. Implants include a [employer] bipolar hip prosthesis equal to a stemLDfx cemented size 12 with an 11 distal centralizer. The bipolar shell was size 44 mm. The central head and neck was 28/+3.5 Fluids See anesthetic record Specimens Femoral neck and head pieces as well as synovium sent for tissue pathology Drains None Anesthesia Type Spinal MAC Complications none Disposition Accompanied Patient To Recovery: Yes Disposition: Recovery Room Indications Aydee is a 78-year-old female is had 3 months progressive left hip pain with ambulation who unfortunately sustained a fall at home resulting in admission to [facility] via the ED. Orthopedics was consulted due to hip pain and the suspicion of a nondisplaced femoral neck fracture. On further evaluation was noted that she had pathologic lesions which were lytic about the femoral neck. Subsequent work-up demonstrated lesions in both her femur and pelvis. Is also suspicious lesions within her thorax. We consulted with the primary team and noted this is unlikely to be a primary bone tumor. A MRI demonstrated involvement of the majority of the femoral neck as well as a lesion up into the superior acetabulum and ilium. We counseled the patient that s urgery that would best serve her would be a hemiarthroplasty to treat the femoral neck fracture. She will require further treatment for the bone lesion is evident on MRI which would be possible this hemiarthroplasty implant cemented in place. We discussed the risks and benefits of surgery in detail. We discussed risks include but are not limited to infection, neurovascular injury, leg length discrepancy, hip instability, need for repeat or revision surgeries, wound problems, blood clots, and complications related to anesthesia. She and her family members asked appropriate questions, demonstrated good understanding, and elected to proceed with surgical treatment of her femoral neck fracture with hemiarthroplasty. Description of Procedure On the day of surgery was agreed in the preoperative holding area with informed consent was reviewed and confirmed by the patient. The the operative extremity was identified by the patient and then signed by myself. She was then turned over anesthesia. Anesthesia performed a spinal anesthetic in the preoperative holding area. She was then taken to the operating room and placed upon the OR table where sedation was induced. She was then positioned for surgery in the lateral decubitus position of her left hip surgery. All bony prominences were well-padded. A Stulberg positioner was used to hold the pelvis firmly in the lateral decubitus position. The left lower extremity then prepped and draped in usual sterile fashion. Surgical timeout was called by the circulating nurse and verified by all present. Laterality was confirmed and equipment was available and functional. Surgery was initiated by creating a standard posterior approach to the hip with a sharp incision over the greater trochanter measuring at least 8 cm. Dissection was carried out using Bovie electrocautery for hemostasis. Skin rakes were used to assist with retracting the skin layers. The fascia was then identified and exposed using a Meyer. We marked the midpoint to plan for a accurate repair of the IT band. Then used a 10 blade to incise to the IT band and carried up into the muscular tissues of the gluteus debbie. We spread in line with the raphe and carried the opening of the fascia down distally to approximately the gluteal sling. The Charnley self-retaining retractor was then placed to hold open the fascial incision. We then internally rotated the hip and exposed the bursa which was taken down using the Bovie. We exposed the short external rotators and the piriformis tendon which was identified. We then tagged the piriformis and short external hip rotators with separate Ti-Cron sutures. We then used a Bovie to take down the piriformis and short external rotators with caution for the nearby sciatic nerve. We internally rotated the hip to expose the hip capsule we removed soft tissue by scraping with a lap sponge. Then performed a capsulotomy in a T-shaped fashion across the base of the neck and extending along the course of the neck. We tacked the corners with 0 Ethibond sutures. The femoral neck fracture was then exposed. The hematoma was evacuated. The neck cut was then plan using the template from [employer]. Bovie electrocautery was used to radha the planned neck cut approximately 1 fingerbreadth above the lesser trochanter. Sagittal saw was then used to complete this cut. The bone was noted to be abnormal. There was crumbling of the anterior femoral neck through the fracture and new osteotomy. We then used a rongeur to to remove excess bone on the lateral aspect of the femoral neck. Femoral neck bone was removed in pieces using a rondure. We then worked to remove the femoral head first using a corkscrew and next using the tenaculum. We did have to rotate this to put tension of the ligament teres and then resected using a Bovie. Evaluated the acetabulum. The cartilage was in good condition. There was hypertrophic synovium in the base of the acetabulum and inferior recess of the capsule which was excised using a rongeur and sent for pathology. We did remove some excess capsular tissue in the most inferior aspect to ensure we did not hav e tissue blocking our reduction. Adequate hemostasis was achieved. We then sized the acetabulum using the ball shaped sizers. We had a good suction fit and fill using a 44 template. We plan for the 44 which gave us more neck length options. The Charnley retractor was then removed. The femoral intertrochanteric area was then exposing the femoral retractors. The double foot retractor was placed under the femoral neck. Sharp Hohmann was placed behind the abductor sling. This exposed the entrance to the femoral canal well. We used a switchbox assembler to remove excess lateral femoral neck and access the intertrochanteric region. We then used a canal finder to access the canal. The lateralizing reamer was then placed into this canal and used to remove excess bone from the lateral aspect of the greater trochanter to ensure no induced varus. We then began our broach sequence. A size 8 broach was then used to initiate and find the canal. This was sunk easily. We then moved sequentially from a 9-10-11 to an 12 broach. This had adequate fill and fit. We used the size 13 broach to rasp the lateral aspect of our canal entrance. We then sunk the [address] for trialing. We put on a standard neck and 44 forehead. This appeared to be an adequate fit however there was not adequate stability through acceptable rotation.. For that reason we placed a +3.5 mm trial neck. This had adequate anabaptist of leg length and stability through 100 degrees of hip flexion and 45 degrees of internal rotation. I could externally rotate the foot in full extension approximately 30 degrees. There was excellent mid flexion stability. We then removed our trial implants and began our canal preparation. After thorough pulse lavage of the canal. We placed a tampon suction device to clear the canal. We then thoroughly irrigated the acetabulum. We then placed a moist sponge in the acetabulum to protect it from debris and cement. Then begin her cement preparation on the back table. To back to block of cement was prepared with suction. After 1-1/2 minutes of mixing it was ready for use. Then loaded the cement gun and begin a retrograde fill of the canal after removal of the tampon suction device. We filled the canal in its entirety until the gun was pushed back due to cement pressure once it filled the entire canal digital pressure was used to pressurize the cement in the canal. We then placed a small amount of cement near the centralizer on the stem. We then placed the stem down in the canal and use the positioner device to ensure appropriate rotation. We repositioned to air in slight anteversion if anything. We then ensure the implant was down to the collar set on the calcar. We then held firm pressure which was motionless until the cement cured. All extraneous cement debris was then scraped out with a curette and hemostat to ensure no loose debris. Once the cement had cured on the back table and the stem appeared to be well- seated and cured we began to thoroughly irrigate the surgical site with bacitracin impregnated pulse lavage. We then began our closing sequence. This involve repair of her capsule layers using side to side repair in f [id number] fashion of her longitudinal cut. We then tied the previous tagging sutures in the capsular corners together firmly. This repaired her back wall of the capsule well. A free needle passer tagging sutures from the piriformis and short external rotators back to the anatomic insertion by pushing through the bone and soft tissue with a free needle. The suture tails were then tied together to complete our repair. We irrigated once again thoroughly. We then positioned the hip in anatomic position and began closure of the IT band and fascial layer. For this we use #1 PDS suture in a running and interrupted fashion. Then thoroughly irrigated once again. We then closed the fatty layer using interrupted #1 Vicryl suture in the deep fascial layers followed by interrupted 3-0 Polysorb suture in the subcuticular layer. The final skin closure was performed with ney. The wound was then cleansed and dressed with sterile Xeroform, sterile gauze, and ABD. Foam tape was used to hold her dressing. The patient tolerated procedure well. She awoke from anesthesia without complication in the operating room. She was rolled supine and an abduction pillow was placed. She was transferred onto her hospital bed and then escorted to the PACU by anesthesia in stable condition. Disposition: She will be weightbearing as tolerated and begin physical therapy as soon as possible. We will use routine DVT prophylaxis consisting of aspirin or the preference of the primary team while inpatient, and and should continue with aspirin therapy or equivalent for DVT prophylaxis lasting at least 6 weeks. We will get postoperative x-ray in the PACU. Surgical findings and plan ahead will be reviewed with the family member I attest to the content of the Intraoperative Record and any orders documented therein. Any exceptions are noted below.
[2019-07-02] MEDS ORDERED: HYDROmorphone INJ 0.5 MG/0.5 ML SYR IV PRN (15:59)
[2019-07-02] MEDS ORDERED: NALOXONE HCL 0.4 MG/1 ML VIAL/CARP IV PRN (15:59)
[2019-07-02] MEDS ORDERED: bisacodyL 10 MG SUPP PR PRN (15:59)
[2019-07-02] MEDS ORDERED: METOCLOPRAMIDE HCL INJ 5 MG/ML 2 ML VIAL IV PRN (15:59)
[2019-07-02] MEDS ORDERED: MAGNESIUM HYDROXIDE SUSP 30 ML UDC PO PRN (15:59)
--- NOTE | 2019-07-02 16:05 | XRay Report ---
XR hip 1V LT w pelvis CLINICAL HISTORY: Postoperative examination. Fracture. COMPARISON: 06/30/2019 DISCUSSION: There are postsurgical changes of a bipolar left hip arthroplasty. There are overlying sk in ney. There is no dislocation. IMPRESSION: Postsurgical changes of a bipolar left hip arthroplasty. No complicating features identif ied Electronically signed by: Patrick Shields M.D. 07/02/2019 4:03 PM
[2019-07-02] MEDS: OXYCODONE HCL IR 5 MG TAB (IMMEDIATE RELEASE) PO PRN ×2 (17:27→21:11)
[2019-07-02] MEDS: SODIUM CHLORIDE 0.9% 1000ML 1,000 ML IV SCH (17:28)
--- NOTE | 2019-07-02 17:45 | Anesthesiology Progress Note ---
Date of Service July 02, 2019 Anesthesia Post Procedure Vital Signs Vital Signs: Temp Pulse Pulse Pulse Pulse Resp BP 07/02/19 17:28 36.9 C 93 H 18 101/62 07/02/19 16:29 36.5 C 88 18 106/60 07/02/19 15:45 101 H 20 117/56 L 07/02/19 15:35 35.4 C L 99 H 20 109/49 L 07/02/19 15:25 95 H 20 104/46 L 07/02/19 15:19 36.3 C L 98 H 13 113/60 07/02/19 12:26 37.2 C 79 20 109/51 L 07/02/19 11:42 36.7 C 75 18 102/59 L 07/02/19 07:44 36.8 C 84 18 102/62 07/02/19 04:50 37.1 C 73 20 103/63 07/01/19 23:16 36.9 C 67 16 103/65 07/01/19 23:00 67 07/01/19 19:29 36.5 C 68 18 93/54 L Pulse Ox 07/02/19 17:28 90 07/02/19 16:29 90 07/02/19 15:45 93 07/02/19 15:35 91 07/02/19 15:25 97 07/02/19 15:19 95 07/02/19 12:26 91 07/02/19 11:42 90 07/02/19 07:44 95 07/02/19 04:50 92 07/01/19 23:16 90 07/01/19 23:00 07/01/19 19:29 90 Pain Intensity Left Hip: Pain Intensity: 10 Transfer of Care Handoff Completed per policy Notes Mental Status: alert / awake / arousable Patient Amnestic to Procedure: Yes Nausea / Vomiting: adequately controlled Pain: adequately controlled Airway Patency, RR, SpO2: stable & adequate BP & HR: stable & adequate Hydration State: stable & adequate Neuraxial Anesthesia: was administered and sensory block is resolving Anesthetic Complications: no major complications apparent and Pt Satisfied with anesthetic care
--- NOTE | 2019-07-02 20:14 | Progress Note ---
DATE: 07/02/2019 The patient underwent a repair of her hip and bone was sent to pathology. It is abnormal bone according to the operative notes. Should this prove to be consistent with a nonsmall cell lung carcinoma or a small cell lung carcinoma, she will not need any further workup. She would be a stage IV and treated it as such. ERWIND
[2019-07-02] MEDS: SENNA 8.6 MG TAB PO SCH (21:02)
[2019-07-02] MEDS: DOCUSATE SODIUM 100 MG CAP PO SCH (21:02)
[2019-07-02] MEDS: CEFAZOLIN 2000MG 2,000 MG/15 ML SYR IV SCH (21:09)
[2019-07-02 22:31] LABS: Appearance Urine Clear (Clear); Bacteria Urine Automated Negative (Negative); Bilirubin Urine Negative (Negative); Blood Urine 2+ (Negative); Color Urine Yellow; Glucose Urine UA Negative (Negative); Ketones Urine Trace (Negative); Leukocyte Esterase Urine Negative (Negative); Nitrite Urine Negative (Negative); Protein Urine Negative (Negative); RBC Urine Automated 0-4 /hpf (0-4); Specific Gravity Urine 1.022 (1.000-1.030); Urobilinogen Urine Negative (Negative); pH Urine 5.5 (4.5-7.5)
[2019-07-03] MEDS: AMPICILLIN/SULBACTAM SOD 3,000 MG in 0.9 % SODIUM CHLORIDE 100 ML IV SCH ×3 (01:50→13:47)
[2019-07-03] MEDS: OXYCODONE HCL IR 5 MG TAB (IMMEDIATE RELEASE) PO PRN ×3 (03:23→21:06)
[2019-07-03] MEDS: SODIUM CHLORIDE 0.9% 1000ML 1,000 ML IV SCH (03:25)
[2019-07-03] MEDS: CEFAZOLIN 2000MG 2,000 MG/15 ML SYR IV SCH (03:53)
[2019-07-03] MEDS: LEVOTHYROXINE SODIUM 100 MCG TABLET PO SCH (05:55)
[2019-07-03 06:04] LABS: Basophils # (auto) 0.01 K/uL (0-0.2); Basophils % (auto) 0.1 %; Eosinophils # (auto) 0.17 K/uL (0-0.5); Eosinophils % (auto) 1.9 %; Hematocrit (blood only) 26.4 % (37-47); Hemoglobin 8.7 g/dL (12.0-16.0); Immature Granulocytes # (auto) 0.03 K/uL (0.00-0.02); Immature Granulocytes % (auto) 0.3 %; Lymphocytes # (auto) 1.07 K/uL (1.2-3.4); Lymphocytes % (auto) 11.8 %; Mean Corpuscular Hemoglobin 30.9 pg (25-34); Mean Corpuscular Volume 93.6 fL (80-100); Mean Platelet Volume 9.2 fL (7.4-10.4); Monocytes % (auto) 8.8 %; Neutrophils # (auto) 6.99 K/uL (1.4-6.5); Neutrophils % (auto) 77.1 %; Platelet Count 135 K/uL (130-400); RDW Coefficient of Variation 12.9 % (11.5-14.5); RDW Standard Deviation 44.3 fL (36.4-46.3); Red Blood Count 2.82 M/uL (4.2-5.4); White Blood Count 9.07 K/uL (4.8-10.8)
[2019-07-03 06:31] LABS: BUN Creatinine Ratio 22.9 (10-20); Creatinine Clr Calc Pharmacy 47.6 ml/min; Est GFR (African American) 77.1; Est GFR (Non-African American) 66.6; Potassium 3.7 mmol/L (3.5-5.1)
[2019-07-03] MEDS: CITALOPRAM 20 MG TAB PO SCH (07:52)
[2019-07-03] MEDS: DOCUSATE SODIUM 100 MG CAP PO SCH ×2 (07:53→21:03)
[2019-07-03] MEDS: GEMFIBROZIL 600 MG TAB PO SCH ×2 (07:53→21:03)
[2019-07-03] MEDS: PANTOprazole 40 MG TAB PO SCH (07:53)
[2019-07-03] MEDS: ASPIRIN 81 MG ECTAB PO SCH ×2 (07:54→21:03)
--- NOTE | 2019-07-03 08:58 | Progress Note ---
DATE: 07/03/2019 Ms. Burgos was seen today. She tolerated her hip surgery very well yesterday. She really does not have any complaints and is in good spirits. I have explained to her that we are waiting for the pathology to come back on this.
--- NOTE | 2019-07-03 09:00 | Anesthesiology Progress Note ---
Date of Service July 03, 2019 Anesthesia Post Procedure Vital Signs Vital Signs: Temp Pulse Pulse Pulse Pulse Resp BP 07/03/19 04:00 37.4 C 82 16 109/55 L 07/03/19 03:55 37.5 C 74 12 95/57 L 07/02/19 23:30 36.6 C 80 18 94/51 L 07/02/19 23:15 87 07/02/19 17:28 36.9 C 93 H 18 07/02/19 16:29 36.5 C 88 18 07/02/19 15:45 101 H 20 07/02/19 15:35 35.4 C L 99 H 20 07/02/19 15:25 95 H 20 07/02/19 15:19 36.3 C L 98 H 13 07/02/19 12:26 37.2 C 79 20 07/02/19 11:42 36.7 C 75 18 BP Pulse Ox 07/03/19 04:00 95 07/03/19 03:55 96 07/02/19 23:30 78/40 L 96 07/02/19 23:15 07/02/19 17:28 101/62 90 07/02/19 16:29 106/60 90 07/02/19 15:45 117/56 L 93 07/02/19 15:35 109/49 L 91 07/02/19 15:25 104/46 L 97 07/02/19 15:19 113/60 95 07/02/19 12:26 109/51 L 91 07/02/19 11:42 102/59 L 90 Pain Intensity Left Hip: Pain Intensity: 10 Notes Mental Status: alert / awake / arousable and participated in evaluation Patient Amnestic to Procedure: Yes Nausea / Vomiting: adequately controlled Pain: adequately controlled Airway Patency, RR, SpO2: stable & adequate BP & HR: stable & adequate Hydration State: stable & adequate Neuraxial Anesthesia: was administered and sensory block resolved Anesthetic Complications: no major complications apparent and Pt Satisfied with anesthetic care
--- NOTE | 2019-07-03 12:03 | Orthopedic Progress Note ---
Date of Service July 03, 2019 Assessment & Plan (1) Closed fracture of neck of left femur: Making uncomplicated progress to postop day 1. She is weightbearing as tolerated and can advance with PT/OT. She can be out of bed with assistance. DVT prophylaxis should continue at least 6 weeks. Prefer at least 81 mg of aspirin twice daily but defer to primary team for chemo prophylaxis choice. We should also be doing mechanical prophylaxis including TERRY hose and SCDs. 24 hours of antibiotics should be stopped today Pain control per primary team Plan for a 2-week follow-up visit in orthopedic clinic for repeat x-rays. We will continue to follow while inpatient period (2) Postoperative anemia: Expected drop postoperatively. We will evaluate for symptoms today when she is mobilizedShe started with a low hemoglobin and hematocrit. We will mon parrish Subjective Seen before 7:30 AM today. Patient reports that her pain is dramatically improved. She describes her discomfort now is "soreness". She feels well and encouraged to work with physical therapy today. She reports no issues overnight. Physical Exam Physical Exam: She is in no acute distress, lying comfortably supine with the head of the bed elevated. She is smiling and conversant. Left lower extremity: The hip dressing is clean dry and intact. She is motor intact to her ankle and digits. She is 2+ DP and PT pulses and sensation is intact throughout. Results & Data Vital Signs (Past 12 Hours) Vital Signs Laboratory Tests 07/03/19 05:52 Hgb 8.7 L Hct 26.4 L Temp Pulse Pulse Resp BP BP Pulse Ox 07/03/19 11:20 37.2 C 76 20 91/56 L 95 07/03/19 08:00 75 07/03/19 04:00 37.4 C 82 16 109/55 L 95 07/03/19 03:55 37.5 C 74 12 95/57 L 96 PG Care Time/CCT Total # of Minutes Spent Total Time Spent with Patient: Total time spent is greater than 50% in coordination of care (as documented) at patient's floor/unit and/or counseling patient: (1) Closed fracture of neck of left femur Encounter type: initial encounter Qualified Code(s): S72.002A - Fracture of unspecified part of neck of left femur, initial encounter for closed fracture
--- NOTE | 2019-07-03 14:10 | Hospitalist Progress Note ---
Date of Service July 03, 2019 Assessment & Plan (1) Closed fracture of neck of left femur: s/p cemented hemiarthroplasty of left hip on 07/02, no complications MRI femur 07/01 shows lesion in the left femoral neck with a pathological fracture as well as lesion in the left acetabulum, lesions could be connected given proximity suspicious for malignancy of femur, pelvis, possible lung involvement given adenopathy will await pathology results and involve oncology when appropriate pain management with Dilaudid IV, working well will use PO narcotics now that she is post op (2) Postoperative anemia: some expected blood loss Hb down to 8.7, BP stable will repeat tomorrow transfuse if < 7.5 or if she becomes hypotensive (3) Diverticulitis: elevated WBC to 18K on admission. extensive diverticulosis seen on the CT with minimal diverticulitis continue Zosyn, responding well, no pain, WBC down to normal today, no fever blood cultures negative change to Augmentin for 10 day course diet can be regular (4) Pulmonary nodule: 9mm nodule seen in right lung CT chest 07/01 with numerous subcentimeter nodules hilar, subcarinal adenopathy d/w Dr. Mcallister, no work up at this time, defer to getting tissue from femur if pathology shows lung primary then it would be stage IV, no role for thoracic surgery (5) Cigarette smoker: Pt advised to quit and offered nicotine patch.Pt has been smoking >50 years 1ppd. (6) COPD (chronic obstructive pulmonary disease): no wheezing, no distress on exam continue breathing treatments (7) Situational depression: (8) Hypothyroidism: Stable, cont levothyroxine 100 mcg daily. TSH normal. Subjective patient sitting up in chair today, actually smiling, says her pain is better she is motivated to get stronger, participating in therapy no pathology results at this time reviewed labs, Hb down to 8.7, WBC down to normal, Cr and electrolytes stable discussed with Dr. Mejia, appreciate his input appreciate note from Dr. Mcallister patient planning on going to [facility] d/w CM, can possibly go over the weekend Review of Systems Review of Systems: All systems reviewed & are unremarkable except as noted in HPI & below Musculoskeletal: + joint pain (left hip, better today) Physical Exam Constitutional: WD/WN, vitals as above Eyes: PERRL, conjunctivae normal, anicteric sclerae ENMT: external ear and nose normal, oropharynx normal Neck: trachea midline, no thyromegaly Respiratory: normal respiratory effort, lungs clear to auscultation Cardiovascular: RRR, no murmur, no edema Gastrointestinal (Abdomen): normal bowel sounds, soft, nontender, no hepa tosplenomegaly Musculoskeletal: Head/Neck/Chest: normocephalic and head atraumatic Extremities: + limited ROM of extremities (left hip due to pain); no cyanosis, no clubbing and no petechiae Skin: no rashes, warm and dry Neurologic: patellar DTR's 2+ bilat, sensation intact and PERRL, EOMI, accommodation nl, no face palsy, no dysarthria Psychiatric: A+Ox3, euthymic affect Lymphatic: no cervical or axillary lymphadenopathy Results & Data Vital Signs (Past 12 Hours) Vital Signs Temp Pulse Pulse Resp BP BP Pulse Ox 07/03/19 11:20 37.2 C 76 20 91/56 L 95 07/03/19 08:00 75 07/03/19 04:00 37.4 C 82 16 109/55 L 95 07/03/19 03:55 37.5 C 74 12 95/57 L 96 Laboratory Results Laboratory Results - last 24 hr 07/02/19 07/03/19 07/03/19 22:00 05:52 05:52 WBC 9.07 RBC 2.82 L Hgb 8.7 L Hct 26.4 L MCV 93.6 MCH 30.9 MCHC 33.0 RDW Std Deviation 44.3 RDW Coeff of Raymundo 12.9 Plt Count 135 MPV 9.2 Immature Gran % (Auto) 0.3 Neut % (Auto) 77.1 Lymph % (Auto) 11.8 [place] % (Auto) 8.8 Eos % (Auto) 1.9 Baso % (Auto) 0.1 Immature Gran # (Auto) 0.03 H Neut # (Auto) 6.99 H Lymph # (Auto) 1.07 L [place] # (Auto) 0.80 H Eos # (Auto) 0.17 Baso # (Auto) 0.01 Sodium 137 Potassium 3.7 Chloride 105 Carbon Dioxide 26 Anion Gap 6.0 BUN 20 H Creatinine 0.85 Est Cr Clr Drug Dosing 47.6 Est GFR ( Amer) 77.1 Est GFR (Non-Af Amer) 66.6 BUN/Creatinine Ratio 22.9 H Glucose 100 H Calcium 8.0 L Urine Color Yellow Urine Appearance Clear Urine pH 5.5 Ur Specific [place] 1.022 Urine Protein Negative Urine Glucose (UA) Negative Urine Ketones Trace H Urine Blood 2+ H Urine Nitrite Negative Urine Bilirubin Negative Urine Urobilinogen Negative Ur Leukocyte Esterase Negative Urine WBC (Auto) 1-5 Urine RBC (Auto) 0-4 U Hyaline Cast (Auto) 1-5 U Epithel Cells (Auto) 10-20 H Urine Bacteria (Auto) Negative Diagnostic Findings XR hip 1V LT w pelvis CLINICAL HISTORY: Postoperative examination. Fracture. COMPARISON: 06/30/2019 DISCUSSION: There are postsurgical changes of a bipolar left hip arthroplasty. There are overlying skin ney. There is no dislocation. IMPRESSION: Postsurgical changes of a bipolar left hip arthroplasty. No complicating features identified Medications Administered Current Inpatient Medications Aspirin (Ecotrin Ectab) 81 mg PO BID [facility] Stop: 08/01/19 20:59 Last Admin: 07/03/19 07:54 Dose: 81 mg Documented by: Bisacodyl (Dulcolax) 10 mg [place] DAILY PRN PRN Reason: Constipation Stop: 08/01/19 15:58 Citalopram Hydrobromide (Celexa) 60 mg PO QAM [facility] Stop: 07/31/19 08:59 Last Admin: 07/03/19 07:52 Dose: 60 mg Documented by: Docusate Sodium (Colace) 100 mg PO BID [facility] Stop: 08/01/19 20:59 Last Admin: 07/03/19 07:53 Dose: 100 mg Documented by: Gemfibrozil (Lopid) 600 mg PO BID [facility] Stop: 07/30/19 20:59 Last Admin: 07/03/19 07:53 Dose: 600 mg Documented by: Hydromorphone HCl (Dilaudid) 0.5 mg IV Q4H PRN PRN Reason: Pain Stop: 07/16/19 15:58 Ampicillin Sodium/Sulbactam Sodium 3,000 mg/ Sodium Chloride 108 mls @ 200 mls/hr IV Q6H [facility]; Protocol Stop: 07/11/19 01:59 Last Admin: 07/03/19 13:47 Dose: 200 mls/hr Documented by: Levothyroxine Sodium (Synthroid) 100 mcg PO DAILYBB [facility] Stop: 07/31/19 06:29 Last Admin: 07/03/19 05:55 Dose: 100 mcg Documented by: Magnesium Hydroxide (Milk Of Magnesia) 30 ml PO Q6H PRN PRN Reason: Constipation Stop: 08/01/19 15:58 Metoclopramide HCl (Reglan) 10 mg IV Q6H PRN PRN Reason: Nausea And Vomiting Stop: 08/01/19 15:58 Naloxone HCl (Narcan) 0.1 mg IV Q5M PRN PRN Reason: Oversedation/Resp Depression Stop: 08/01/19 15:58 Ondansetron HCl (Zofran) 4 mg IV Q6H PRN PRN Reason: Nausea And Vomiting Stop: 08/01/19 15:58 Oxycodone HCl (Roxicodone Immediate Rel) 5 - 10 mg PO Q4H PRN PRN Reason: Pain Stop: 07/16/19 15:58 Last Admin: 07/03/19 10:42 Dose: 10 mg Documented by: Pantoprazole Sodium (Protonix) 40 mg PO QAM [facility] Stop: 07/31/19 08:59 Last Admin: 07/03/19 07:53 Dose: 40 mg Documented by: Sennosides (Senokot) 17.2 mg PO HS [facility] Stop: 08/01/19 20:59 Last Admin: 07/02/19 21:02 Dose: 17.2 mg Documented by: PG Care Time/CCT Total # of Minutes Spent Total Time Spent with Patient: Total time spent is greater than 50% in coordination of care (as documented) at patient's floor/unit and/or counseling patient: (1) Closed fracture of neck of left femur Encounter type: initial encounter Qualified Code(s): S72.002A - Fracture of unspecified part of neck of left femur, initial encounter for closed fracture
[2019-07-03] MEDS: AMOXICILLIN/CLAVULANATE 875 MG TAB PO SCH (17:02)
[2019-07-03] MEDS: SENNA 8.6 MG TAB PO SCH (21:03)
[2019-07-03] MEDS: ACETAMINOPHEN 325 MG TAB PO PRN (23:46)
[2019-07-04] MEDS: OXYCODONE HCL IR 5 MG TAB (IMMEDIATE RELEASE) PO PRN ×3 (01:21→19:32)
[2019-07-04 06:09] LABS: Hematocrit (blood only) 27.1 % (37-47); Hemoglobin 8.7 g/dL (12.0-16.0); Mean Corpuscular Hemoglobin 29.8 pg (25-34); Mean Corpuscular Hgb Conc 32.1 g/dL (32-36); Mean Corpuscular Volume 92.8 fL (80-100); Mean Platelet Volume 9.1 fL (7.4-10.4); Platelet Count 145 K/uL (130-400); RDW Coefficient of Variation 12.8 % (11.5-14.5); RDW Standard Deviation 43.9 fL (36.4-46.3); Red Blood Count 2.92 M/uL (4.2-5.4); White Blood Count 9.17 K/uL (4.8-10.8)
[2019-07-04] MEDS: LEVOTHYROXINE SODIUM 100 MCG TABLET PO SCH (06:14)
[2019-07-04 06:46] LABS: BUN Creatinine Ratio 20.5 (10-20); Calcium 8.5 mg/dl (8.5-10.1); Creatinine Clr Calc Pharmacy 48.2 ml/min; Est GFR (African American) 78.2; Est GFR (Non-African American) 67.5; Potassium 3.8 mmol/L (3.5-5.1)
[2019-07-04] MEDS: GEMFIBROZIL 600 MG TAB PO SCH ×2 (07:34→20:39)
[2019-07-04] MEDS: AMOXICILLIN/CLAVULANATE 875 MG TAB PO SCH ×2 (07:34→17:26)
[2019-07-04] MEDS: DOCUSATE SODIUM 100 MG CAP PO SCH ×2 (07:34→20:39)
[2019-07-04] MEDS: PANTOprazole 40 MG TAB PO SCH (07:34)
[2019-07-04] MEDS: CITALOPRAM 20 MG TAB PO SCH (07:34)
[2019-07-04] MEDS: ASPIRIN 81 MG ECTAB PO SCH ×2 (07:34→20:37)
--- NOTE | 2019-07-04 09:34 | Hospitalist Progress Note ---
Date of Service July 04, 2019 Assessment & Plan (1) Closed fracture of neck of left femur: s/p cemented hemiarthroplasty of left hip on 07/02, no complications POD 2 MRI femur 07/01 shows lesion in the left femoral neck with a pathological fracture as well as lesion in the left acetabulum, lesions could be connected given proximity suspicious for malignancy of femur, pelvis, possible lung involvement given adenopathy will await pathology results and involve oncology when appropriate may not happen until after discharge pain management with oxycodone 5mg, working well continue PT/OT, plan for [facility] on discharge, likely medically stable tomorrow (2) Postoperative anemia: some expected blood loss Hb down to 8.7 yesterday, stable this morning at 8.7 will repeat tomorrow AM transfuse if < 7.5 or if she becomes hypotensive (3) Diverticulitis: elevated WBC to 18K on admission. extensive diverticulosis seen on the CT with minimal diverticulitis treated with Zosyn, responding well, no pain, WBC down to normal for two days, no fever blood cultures negative changed to Augmentin on 07/03 for 10 day course diet can be regular no abdominal pain today (4) Pulmonary nodule: 9mm nodule seen in right lung CT chest 07/01 with numerous subcentimeter nodules hilar, subcarinal adenopathy d/w Dr. Mcallister, no work up at this time, defer to getting tissue from femur if pathology shows lung primary then it would be stage IV, no role for thoracic surgery (5) Cigarette smoker: Pt advised to quit and offered nicotine patch.Pt has been smoking >50 years 1ppd. (6) COPD (chronic obstructive pulmonary disease): no wheezing, no distress on exam continue breathing treatments (7) Situational depression: (8) Hypothyroidism: Stable, cont levothyroxine 100 mcg daily. TSH normal. Subjective patient doing well, pain is controlled with oxycodone 5mg she was OOB in chair twice yesterday, took some steps with therapy she is motivated to get better reviewed labs, Hb stable at 8.7, WBC normal, Cr 0.8 and K is 3.8 checked pathology, no results yet this morning discussed going to rehab, feel like she will be ready tomorrow discussed importance of being OOB, taking deep breaths to titrate off of oxygen no chest pain, no cough, minimal dyspnea, no abdominal pain, no fever/chills, no nausea Review of Systems Review of Systems: All systems reviewed & are unremarkable except as noted in HPI & below Musculoskeletal: + joint pain (left hip, better) Physical Exam Constitutional: WD/WN, vitals as above Eyes: PERRL, conjunctivae normal, anicteric sclerae ENMT: external ear and nose normal, oropharynx normal Neck: trachea midline, no thyromegaly Respiratory: normal respiratory effort, lungs clear to auscultation Cardiovascular: RRR, no murmur, no edema Gastrointestinal (Abdomen): normal bowel sounds, soft, nontender, no hepatosplenomegaly Musculoskeletal: Head/Neck/Chest: normocephalic and head atraumatic Extremities: + limited ROM of extremities (left hip due to pain); no cyanosis, no clubbing and no petechiae Skin: no rashes, warm and dry Neurologic: patellar DTR's 2+ bilat, sensation intact and PERRL, EOMI, accommodation nl, no face palsy, no dysarthria Psychiatric: A+Ox3, euthymic affect Lymphatic: no cervical or axillary lymphadenopathy Results & Data Vital Signs (Past 12 Hours) Vital Signs Temp Pulse Pulse Pulse Resp BP BP 07/04/19 08:37 95/65 L 07/04/19 07:03 36.7 C 83 18 91/57 L 07/04/19 04:00 36.5 C 78 20 94/61 L 07/04/19 01:29 100 H 07/04/19 01:27 36.6 C 07/03/19 23:00 38 C H 98 H 18 101/58 L Pulse Ox 07/04/19 08:37 07/04/19 07:03 90 07/04/19 04:00 90 07/04/19 01:29 07/04/19 01:27 07/03/19 23:00 92 Laboratory Results Laboratory Results - last 24 hr 07/04/19 07/04/19 05:59 05:59 WBC 9.17 RBC 2.92 L Hgb 8.7 L Hct 27.1 L MCV 92.8 MCH 29.8 MCHC 32.1 RDW Std Deviation 43.9 RDW Coeff of Raym[place] 12.8 Plt Count 145 MPV 9.1 Sodium 136 Potassium 3.8 Chloride 104 Carbon Dioxide 27 Anion Gap 5.0 BUN 17 Creatinine 0.84 Est Cr Clr Drug Dosing 48.2 Est GFR ( Amer) 78.2 Est GFR (Non-Af Amer) 67.5 BUN/Creatinine Ratio 20.5 H Glucose 100 H Calcium 8.5 Medications Administered Current Inpatient Medications Acetaminophen (Tylenol) 650 mg PO Q4H PRN PRN Reason: Pain or Fever Stop: 08/02/19 23:38 Last Admin: 07/03/19 23:46 Dose: 650 mg Documented by: Amoxicillin/Clavulanate Potassium (Augmentin 875mg) 1 tab PO BIDM [facility] Stop: 07/13/19 16:59 Last Admin: 07/04/19 07:34 Dose: 1 tab Documented by: Aspirin (Ecotrin Ectab) 81 mg PO BID [facility] Stop: 08/01/19 20:59 Last Admin: 07/04/19 07:34 Dose: 81 mg Documented by: Bisacodyl (Dulcolax) 10 mg [place] DAILY PRN PRN Reason: Constipation Stop: 08/01/19 15:58 Citalopram Hydrobromide (Celexa) 60 mg PO QAM [facility] Stop: 07/31/19 08:59 Last Admin: 07/04/19 07:34 Dose: 60 mg Documented by: Docusate Sodium (Colace) 100 mg PO BID [facility] Stop: 08/01/19 20:59 Last Admin: 07/04/19 07:34 Dose: 100 mg Documented by: Gemfibrozil (Lopid) 600 mg PO BID [facility] Stop: 07/30/19 20:59 Last Admin: 07/04/19 07:34 Dose: 600 mg Documented by: Levothyroxine Sodium (Synthroid) 100 mcg PO DAILYBB [facility] Stop: 07/31/19 06:29 Last Admin: 07/04/19 06:14 Dose: 100 mcg Documented by: Magnesium Hydroxide (Milk Of Magnesia) 30 ml PO Q6H PRN PRN Reason: Constipation Stop: 08/01/19 15:58 Metoclopramide HCl (Reglan) 10 mg IV Q6H PRN PRN Reason: Nausea And Vomiting Stop: 08/01/19 15:58 Naloxone HCl (Narcan) 0.1 mg IV Q5M PRN PRN Reason: Oversedation/Resp Depression Stop: 08/01/19 15:58 Ondansetron HCl (Zofran) 4 mg IV Q6H PRN PRN Reason: Nausea And Vomiting Stop: 08/01/19 15:58 Oxycodone HCl (Roxicodone Immediate Rel) 5 - 10 mg PO Q4H PRN PRN Reason: Pain Stop: 07/16/19 15:58 Last Admin: 07/04/19 01:21 Dose: 10 mg Documented by: Pantoprazole Sodium (Protonix) 40 mg PO QAM [facility] Stop: 07/31/19 08:59 Last Admin: 07/04/19 07:34 Dose: 40 mg Documented by: Sennosides (Senokot) 17.2 mg PO HS [facility] Stop: 08/01/19 20:59 Last Admin: 07/03/19 21:03 Dose: 17.2 mg Documented by: PG Care Time/CCT Total # of Minutes Spent Total Time Spent with Patient: Total time spent is greater than 50% in coordination of care (as documented) at patient's floor/unit and/or counseling patient: (1) Closed fracture of neck of left femur Encounter type: initial encounter Qualified Code(s): S72.002A - Fracture of unspecified part of neck of left femur, initial encounter for closed fracture
--- NOTE | 2019-07-04 12:42 | Orthopedic Progress Note ---
Date of Service July 04, 2019 Assessment & Plan (1) Closed fracture of neck of left femur: Making uncomplicated progress to postop day 2. She is weightbearing as tolerated. Continue PT/OT. She can be out of bed with assistance. DVT prophylaxis should continue at least 6 weeks. Prefer at least 81 mg of aspirin twice daily but defer to primary team for chemo prophylaxis choice. Continue mechanical prophylaxis including TERRY hose and SCDs. Pain control per primary team Plan for a 2-week follow-up visit in orthopedic clinic for repeat x-rays and staple removal. We will continue to follow while inpatient period (2) Postoperative anemia: She is asymptomatic at this time. Defer to primary team management Subjective Aydee reports that she had an uncomplicated night. She also reports that she has been out of bed to the chair and walked "a few steps". She is encouraged by her progress. She agrees that she thinks that she might be able to transition to inpatient debilitation tomorrow. She has no other questions. We reviewed the plan to follow-up in clinic in 2 weeks for removal ney and repeat x- rays. Physical Exam Physical Exam: Lamination left lower extremity demonstrates intact dressing with. She has full active range of motion of her ankle and is neurovascularly intact. Results & Data Vital Signs (Past 12 Hours) Vital Signs Temp Pulse Pulse Pulse Resp BP BP 07/04/19 11:06 36.7 C 92 H 18 99/57 L 07/04/19 08:37 95/65 L 07/04/19 07:03 36.7 C 83 18 91/57 L 07/04/19 04:00 36.5 C 78 20 94/61 L 07/04/19 01:29 100 H 07/04/19 01:27 36.6 C Pulse Ox 07/04/19 11:06 90 07/04/19 08:37 07/04/19 07:03 90 07/04/19 04:00 90 07/04/19 01:29 07/04/19 01:27 PG Care Time/CCT Total # of Minutes Spent Total Time Spent with Patient: Total time spent is greater than 50% in coordination of care (as documented) at patient's floor/unit and/or counseling patient: (1) Closed fracture of neck of left femur Encounter type: initial encounter Qualified Code(s): S72.002A - Fracture of unspecified part of neck of left femur, initial encounter for closed fracture
[2019-07-04] MEDS: ACETAMINOPHEN 325 MG TAB PO PRN (17:26)
[2019-07-04] MEDS: SENNA 8.6 MG TAB PO SCH (20:37)
[2019-07-05] MEDS: LEVOTHYROXINE SODIUM 100 MCG TABLET PO SCH (06:03)
[2019-07-05] MEDS: OXYCODONE HCL IR 5 MG TAB (IMMEDIATE RELEASE) PO PRN ×2 (06:03→14:53)
[2019-07-05] MEDS: CITALOPRAM 20 MG TAB PO SCH (07:54)
[2019-07-05] MEDS: GEMFIBROZIL 600 MG TAB PO SCH (07:54)
[2019-07-05] MEDS: PANTOprazole 40 MG TAB PO SCH (07:54)
[2019-07-05] MEDS: DOCUSATE SODIUM 100 MG CAP PO SCH (07:55)
[2019-07-05] MEDS: ASPIRIN 81 MG ECTAB PO SCH (07:55)
[2019-07-05] MEDS: AMOXICILLIN/CLAVULANATE 875 MG TAB PO SCH (07:55)
[2019-07-05 09:45] LABS: Hematocrit (blood only) 26.6 % (37-47); Hemoglobin 8.5 g/dL (12.0-16.0); Mean Corpuscular Hemoglobin 29.6 pg (25-34); Mean Corpuscular Volume 92.7 fL (80-100); Mean Platelet Volume 9.3 fL (7.4-10.4); Platelet Count 185 K/uL (130-400); RDW Coefficient of Variation 12.9 % (11.5-14.5); Red Blood Count 2.87 M/uL (4.2-5.4); White Blood Count 7.43 K/uL (4.8-10.8)
[2019-07-05 10:03] LABS: BUN Creatinine Ratio 23.2 (10-20); Calcium 9.1 mg/dl (8.5-10.1); Creatinine Clr Calc Pharmacy 68.2 ml/min; Est GFR (Non-African American) 86.2
[2019-07-05 11:42] VITALS: TEMP 98.6; O2SAT 94
[2019-07-05 12:03] VITALS: BP 99/57; PULSE 78
--- NOTE | 2019-07-05 13:29 | Discharge Summary ---
Date of Service July 05, 2019 Admission HPI Per Admitting Provider Patient is a 78 y/o female with PMHx of nicotine dependance for more then 50 years, osteopenia, hypothyroidism, irritable bowel sy, COPD, GERD, essential hypertriglyceridemia, depression, adrenal cortical adenoma presents to the Emergency Room with complaints of constant left hip pain that started just prior to arrival following a fall she had. The patient states she was walking to her front door when she tripped and fell onto her left side. The patient rates the pain as a 7/10 and notes it is worse with movement of the left leg. The patient adds that she felt nauseous and had intermittent hot flashes after the fall before she received any pain medication. The patient denies hitting her head as well as being on any blood thinners. The patient states that she has been following up with her doctor as an outpatient for left hip pain. She just recently finished a course of steroids and had an x-ray done that showed degenerative changes. The patient was given Fentanyl IV in the ambulance and was put on oxygen which is not normal for her at baseline.Labs Reviewed:WBC: 18.81, Hgb 13, PT 10.6, Inr 1, TSH, 1.59, Cr 1.1, GFR 48.7, trop neg 0.015, ALT 12, APH 74, AST 12, Left hip Xrays:1. Nondisplaced left femoral neck fracture.2. A 2.9 x 2.8 cm lytic lesion within the left femoral neck. There is also suggestion of an additional lytic lesion within the anterior left iliac bone. Therefore, this is concerning for a pathologic left femoral neck fracture.[facility] tele pt for further work up of pulmonary nodule, left hip lytic lesion and hip fracture. Principal Diagnosis Pathological fracture of left femoral neck due to metastatic lung adenocarcinoma Discharge Exam Constitutional WD/WN, vitals as above Eyes PERRL, conjunctivae normal, anicteric sclerae ENMT external ear and nose normal, oropharynx normal Neck trachea midline, no thyromegaly Respiratory normal respiratory effort, lungs clear to auscultation Auscultation: + diminished lung sounds (bases) Cardiovascular RRR, no murmur, no edema Gastrointestinal (Abdomen) normal bowel sounds, soft, nontender, no hepatosplenomegaly Musculoskeletal Head/Neck/Chest: normocephalic and head atraumatic Extremities: + limited ROM of extremities (left hip due to pain); no cyanosis, no clubbing and no petechiae Skin no rashes, warm and dry Neurologic patellar DTR's 2+ bilat, sensation intact and PERRL, EOMI, accommodation nl, no face palsy, no dysarthria Psychiatric A+Ox3, euthymic affect Lymphatic no cervical or axillary lymphadenopathy Discharge Data Allergies Allergy/AdvReac Type Severity Reaction Status Date / Time clarithromycin AdvReac Mild N/V Verified 06/12/19 13:27 hydrocodone AdvReac Mild N/V Verified 06/12/19 13:27 venlafaxine AdvReac Mild N/V Verified 06/12/19 13:27 acetaminophen [From Vicodin] AdvReac Gastrointestinal Verified 07/03/19 23:41 Upset metronidazole [From Flagyl] AdvReac Gastrointestinal Verified 07/03/19 23:41 Upset Consultations 06/30/19 15:14 ED Decision to Admit Stat 06/30/19 18:14 Consult General Surgery Routine Consult Thoracic Surgery Routine 07/03/19 08:00 Consult Case Management - Discharge Planning Routine Procedures Performed Operation Date: 07/02/19 12:30 Actual Procedures p Left Hip Hemiarthroplasty--Cemented(Left) - Dimitri Mejia Ordered Studies 06/30/19 12:57 CT head/brain wo con Stat 06/30/19 14:11 CT abd pelvis IV con only Stat CT hip LT wo con Stat CT lumbar spine wo con Stat 07/01/19 08:11 CT chest wo con Urgent 07/01/19 14:53 MR femur LT wo/w con Urgent Hospital Course (1) Adenocarcinoma of lung, stage 4: pathology of the left femoral head and neck shows lung adenocarcinoma further testing on the specimen is pending discussed with Dr. Quintero, patient should be seen in the clinic, no need for inpatient consultation given the bone metastasis this would be stage 4 disease I discussed these results with patient and family (2) Closed fracture of neck of left femur: s/p cemented hemiarthroplasty of left hip on 07/02, no complications POD 3 MRI femur 07/01 shows lesion in the left femoral neck with a pathological fracture as well as lesion in the left acetabulum suspicious for malignancy of femur, pelvis, possible lung involvement given adenopathy PATHOLOGY: shows adenocarcinoma in the left femur, lung origin pain management with oxycodone 5mg, working well continue PT/OT, plan for [facility] on discharge today (3) Bone metastasis: primary is lung adenocarcinoma (4) Postoperative anemia: some expected blood loss Hb down to 8.5 today, was 8.7 for two days prior essentially stable for three days BP is always low normal (5) Diverticulitis: elevated WBC to 18K on admission. extensive diverticulosis seen on the CT with minimal diverticulitis treated with Unasyn, responding well, no pain, WBC down to normal for three days, no fever blood cultures negative changed to Augmentin on 07/03 for 10 day course diet can be regular no abdominal pain on day of discharge 7 more days of Augmentin (6) Pulmonary nodule: 9mm nodule seen in right lung CT chest 07/01 with numerous subcentimeter nodules hilar, subcarinal adenopathy these findings consistent with lung adenocarcinoma on bone biopsy (7) Cigarette smoker: Pt advised to quit and offered nicotine patch.Pt has been smoking >50 years 1ppd. (8) COPD (chronic obstructive pulmonary disease): no wheezing, no distress on exam continue breathing treatments due to intermediate smoking (9) Situational depression: (10) Hypothyroidism: Stable, cont levothyroxine 100 mcg daily. TSH normal. Total Time Total Time Spent Total Time Spent (In Minutes): 35 minutes Total Time Includes: Examination of the Patient, Discharge Planning, Medication Reconciliation, Communication With Other Providers and Other (family communication) Discharge Plan Discharge Items Patient Disposition: Transfer Inpatient Rehab Fac Reason For Visit: NON DISPLACED LEFT FEMORAL NECK FRACTURE Discharge Diagnosis: Left femoral neck fracture, s/p cemented left hemiarthroplasty Metastatic lung adenocarcinoma with mets to pelvis and hip Acute hypoxia, likely from COPD, smoking, atelectasis Condition on Discharge: Good Health Concerns: need to improve strength and mobility after hip fracture stay well nourished Goals: complete rehab to improve independence, return to baseline follow up with oncology for recommendations for treatment on metastatic lung ad enocarcinoma titrate off of oxygen Activity: Per Instructions section Lifting: None Bathing: Keep incision dry Exercise/Sports: Gradually increase as tolerated Driving/Machine Use: until after rehabilitation Weightbearing: Full weightbearing Non-emergency contact: Primary Care Provider, Surgeon and Oncologist Call non-emergency contact if: you have any medication questions, your symptoms worsen, your pain is not controlled and you have a fever Follow-up/Referrals: Zion Bartholomew MD [Primary Care Provider] - Diet: Regular Addtl Attending Provider Instructions: Medications: - AUGMENTIN: one tablet twice a day for 7 more days to complete treatment of mild diverticulitis, responded well to IV Unasyn at first, stable on Augmentin for two days - OXYCODONE: take as needed for left hip pain, improving since surgery - ASPIRIN: take 81mg TWICE a day for thirty days for DVT prophylaxis per ortho, can resume once a day dosing after 30 days - COLACE: continue stool softener for next 7 days Left hip fracture, pathological with evidence of lytic lesions in left femur neck/head and left acetabulum s/p cemented left hemiarthroplasty by Dr. Mejia, doing well, pain controlled, ambulating, needs rehab prior to going home should follow up with Dr. Dimitri Mejia in two weeks [phone] Metastatic lung adenocarcinoma pathology from left femoral head/neck shows adenocarcinoma of lung origin the patient had a CT chest that shows numerous pulmonary nodules and lymphadenopathy in hilar region evaluated by Dr. Mcallister, no role for thoracic surgery given disease is metastatic discussed case with Dr. Quintero, patient does not need to be seen in hospital, should schedule office appt in 7-10 days [facility] number is [phone] Diverticulitis: very minimal on CT on admission, no pain, no diarrhea, eating well treated with Unasyn initially, transitioned to Augmentin two days prior to admission complete 7 more days of Augmentin Hypoxia: likely combination of COPD, long smoking history, atelectasis after surgery promote patient being upright as much as possible, be up to chair most of the day use incentive spirometer should come off of oxygen in next week at rehab FOLLOW UP - physician at [facility] this week - Dr. Dimitri Mejia, [facility] ortho, in 2 weeks - Dr. Doug Quintero, [facility], in 7-10 days - PCP one week after discharge from rehab Pending Studies at Discharge: Yes Studies:: additional testing on pathology, but initial diagnosis is back Stand-Alone Forms: My [facility] Skilled Items Patient informed of condition?: Yes DNR: No Discharge Level of Care: Acute rehab Communicable Disease: No Discharge Prognosis: Stable Lines: None Urinary Catheter: No Medications and DC Order Prescriptions: New aspirin [Ecotrin Low Strength] 81 mg Tablet,Delayed Release (Dr/Ec) 81 mg PO BID 30 Days Qty: 60 RF: 0 docusate sodium 100 mg Capsule 100 mg PO BID 7 Days Qty: 14 RF: 0 amoxicillin-pot clavulanate 875-125 mg Tablet 1 tab PO BIDM 7 Days Qty: 14 RF: 0 oxycodone 5 mg Tablet 5 - 10 mg PO Q4H PRN (Reason: pain) 10 Days Qty: 20 RF: 0 Continued biotin 10 mg tablet 10 mg PO QAM RF: 0 calcium carbonate 600 mg calcium (1,500 mg) tablet 600 mg PO BID RF: 0 citalopram 40 mg tablet 60 mg PO QAM Qty: 135 RF: 0 gemfibrozil 600 mg tablet 600 mg PO BID Qty: 180 RF: 0 levothyroxine 100 mcg tablet 100 mcg PO QAM Qty: 90 RF: 0 lorazepam 0.5 mg tablet 0.25 - 0.5 mg PO Q12H PRN (Reason: Anxiety) Qty: 20 RF: 0 cyanocobalamin (vitamin B-12) 1,000 mcg tablet 1,000 mcg PO QAM RF: 0 vitamin E 1,000 unit capsule 1,000 units PO QAM RF: 0 acetaminophen [Tylenol Extra Strength] 500 mg Tablet 500 mg PO Q6H PRN (Reason: Pain) RF: 0 meloxicam 15 mg tablet 15 mg PO QAM RF: 0 pantoprazole 40 mg tablet,delayed release (DR/EC) 40 mg PO QAM RF: 0 omega-3 acid ethyl esters 1 gram capsule 1 cap PO QAM RF: 0 Discontinued aspirin 81 mg Tablet,Delayed Release (Dr/Ec) 81 mg PO DAILY RF: 0 Discharge Orders: Discharge Order (Routine); Ordered 07/05/19 Ordered By: Shawn Abad Admission Data Admit Date/Time: 06/30/19 17:16 Attending Provider: Shawn Abad Admit Provider: Nav Mullins Primary Care Provider: Zion Bartholomew [facility] ; Laureano Mcallister ; Nav Mullins ; Dimitri Mejia
== END 2019-07-05 15:20 | DRG 470 ==
LOC: ED 12:09 → 2N 17:16 → SUATTDRO 17:16 → 2N 17:45

== ENCOUNTER 2019-08-04 07:08 | Inpatient (IN) ==
[2019-08-04] MEDS ORDERED: SODIUM CHLORIDE 0.9% 1000ML 1,000 ML IV ONE (07:28)
[2019-08-04 07:46] LABS: Basophils # (auto) 0.03 K/uL (0-0.2); Basophils % (auto) 0.2 %; Eosinophils # (auto) 0.19 K/uL (0-0.5); Eosinophils % (auto) 1.3 %; Hematocrit (blood only) 30.4 % (37-47); Hemoglobin 9.9 g/dL (12.0-16.0); Immature Granulocytes # (auto) 0.09 K/uL (0.00-0.02); Immature Granulocytes % (auto) 0.6 %; Lymphocytes # (auto) 0.88 K/uL (1.2-3.4); Lymphocytes % (auto) 6.1 %; Mean Corpuscular Hemoglobin 28.8 pg (25-34); Mean Corpuscular Hgb Conc 32.6 g/dL (32-36); Mean Corpuscular Volume 88.4 fL (80-100); Mean Platelet Volume 8.5 fL (7.4-10.4); Monocytes # (auto) 1.12 K/uL (0.11-0.59); Monocytes % (auto) 7.7 %; Neutrophils # (auto) 12.18 K/uL (1.4-6.5); Neutrophils % (auto) 84.1 %; Platelet Count 430 K/uL (130-400); RDW Coefficient of Variation 14.6 % (11.5-14.5); RDW Standard Deviation 47.4 fL (36.4-46.3); Red Blood Count 3.44 M/uL (4.2-5.4); White Blood Count 14.49 K/uL (4.8-10.8)
[2019-08-04] MEDS ORDERED: HYDROmorphone INJ 0.5 MG/0.5 ML SYR IV STA (07:53)
[2019-08-04] MEDS ORDERED: ONDANSETRON INJ 2 MG/ML 2 ML VIAL IV STA (07:53)
[2019-08-04 08:07] LABS: Alanine Aminotransferase < 6 U/L (12-78); Albumin Level 2.7 gm/dl (3.4-5.0); Aspartate Aminotransferase 10 U/L (15-37); BUN Creatinine Ratio 14.8 (10-20); Blood Urea Nitrogen 13 mg/dl (7-18); Calcium 9.2 mg/dl (8.5-10.1); Carbon Dioxide 26 mmol/L (21-32); Chloride 108 mmol/L (98-107); Creatinine Clr Calc Pharmacy 46.9 ml/min; Est GFR (African American) 76.6; Est GFR (Non-African American) 66.1; Glucose 98 mg/dl (70-99); Lipase 55 U/L (73-393); Sodium 138 mmol/L (136-145)
[2019-08-04 08:10] LABS: Albumin Globulin Ratio 0.6 (0.9-2); Alkaline Phosphatase 76 U/L (45-117); Bilirubin,Total 0.2 mg/dl (0.2-1); Globulin 4.9 gm/dl (2.5-4.0); Total Protein 7.6 gm/dl (6.4-8.2)
--- NOTE | 2019-08-04 08:48 | Emergency Department Note ---
ED Visit Note I have seen and examined this patient with Abiodun Leach and generally agree with the treatment plan as discussed. .
[2019-08-04] MEDS ORDERED: IOVERSOL 100ml IV PRN (09:08)
[2019-08-04 09:28] LABS: INR 1.2 (0.9-1.1); Partial Thromboplastin Ratio 1.1; Partial Thromboplastin Time 29.6 Seconds (21.0-31.0); Prothrombin Time 12.1 Seconds (9.0-12.0)
--- NOTE | 2019-08-04 09:29 | XRay Report ---
XR chest 1V portable HISTORY: 79 years-old Female Chest Pain acute atypical chest pain COMPARISON: Chest CT 07/01/2019, chest radiograph 06/30/2019 TECHNIQUE: Portable AP view of the chest FINDINGS: Cardiomediastinal and hilar silhouettes are unchanged. Emphysema with chronic interstitial coarsening . Minimal bibasilar opacities suggest atelectasis. Calcified plaque of the thoracic aortic arch. Ther e is no pneumothorax, pleural effusion or overt pulmonary edema. Degenerative changes of the shoulder s and spine. Right shoulder rotator cuff calcific tendinosis. Surgical clips project over the right n ninoska. IMPRESSION: Emphysema without acute process. The above report was generated using voice recognition software. It may contain grammatical, syntax o r spelling errors. Electronically signed by: Thierno Brown M.D. 08/04/2019 9:28 AM
--- NOTE | 2019-08-04 09:34 | CT Scan Report ---
CT abd pelvis IV con only CLINICAL HISTORY: Abd pain - recent diverticulitis, lung CA w/ mets COMPARISON STUDY: 07/18/2019 TECHNIQUE: The patient was scanned in a dynamic helical fashion during intravenous administration of 94 cc of Optiray 320. A dose lowering technique was utilized adhering to the principles of ALARA. CT DOSE: 295.92 mGy.cm FINDINGS: Lower chest: There is a small pericardial effusion minimally larger than on the preceding study. Ther e are dependent airspace opacities, likely atelectatic. There is a 1 cm right lower lobe pulmonary no dule, 1 mm larger than on the preceding examination. Liver: The contrast-enhanced liver is normal in size, contour, and attenuation. There is no intrahepa tic biliary ductal dilatation. The hepatic veins and portal veins are patent. Gallbladder: Cholelithiasis. Mildly distended. No common bile duct dilatation. Spleen: Mildly enlarged measuring 12.7 cm Pancreas: Unremarkable. Adrenal glands: There are 2 left adrenal nodules the largest of which measures 18 mm. This remains un changed in size from the prior study Kidneys: There is a 17 mm right renal cyst. Additional tiny hypodensities likely represent additional cysts. There is no significant hydronephrosis. Bowel: There is sigmoid wall thickening and infiltration of the perisigmoid fat. The findings are ind icative of acute the findings represent either acute diverticulitis, or an infectious/inflammatory co litis. Peritoneum: There is no intraperitoneal free air or abdominal ascites. Vasculature: The abdominal aorta is normal in course and caliber. Adenopathy: None. Pelvic viscera: There are multiple uterine fibroids. There is a 33 mm adnexal cystic lesion. This was not present on the prior study, and is therefore of some concern. Skeletal structures: There are postsurgical changes of a total left hip arthroplasty. No destructive lesions are visualized. IMPRESSION: 1. Slight interval increase in the size of a small pericardial effusion 2. 1 mm increase in the size of a right middle lobe pulmonary nodule currently measuring 10 mm 3. Cholelithiasis and mild gallbladder distention 4. Rectosigmoid wall thickening with multiple diverticula and infiltration of peridiverticular fat. D iagnostic considerations include long segment diverticulitis versus infectious/inflammatory colitis. The findings have worsened when compared the preceding June 30 study 5. New 33 mm cystic right adnexal lesion 6. Stable 18 mm left adrenal nodule Electronically signed by: Patrick Shields M.D. 08/04/2019 9:32 AM
[2019-08-04] MEDS ORDERED: PIPERACILLIN/TAZOBACTAM 4.5 GM/120 ML BAG IV ONE (09:51)
[2019-08-04] MEDS ORDERED: PIPERACILL/TAZOBAC CONSULT ACTIVE PRN ×2 (09:51→12:43)
--- NOTE | 2019-08-04 10:10 | History & Physical Report ---
Date of Service August 04, 2019 Assessment & Plan (1) Sigmoid diverticulitis: Diagnosed with same issue during prior admission 1 month ago. Was in same location. Treated with IV unasyn, then transitioned to PO augmentin at discharge. Completed 10 days of IV/PO antibiotics then. Returns with nearly 1 week of LLQ abd pain, nausea, vomiting, inability to eat, etc. Given zosyn in ER; will continue such. NPO except ice chips. IVF. IV pain meds. Consider GI and/or gen surg consultations. To ensure no infectious colitis will send c.diff and stool culture. She is also c/o dysuria - will send u/a and urine cx. (2) Adenocarcinoma of lung, stage 4: Dx 1 month ago. Presented with pathological left hip fracture. s/p ORIF. Bone bx c/w adenocarcinoma of lung origin. CTs with right lung nodule which is likely primary site. Seen by Dr Quintero at [facility]. Was to begin chemotherapy TOMORROW. She is already s/p XRT x 5 (of 10) treatments to the left hip. Was to have port placed by Dr Parker today. I alerted Dr Hernández of pt's admission. hold off on XRT today; consider resuming next 48 hours depending on pt's status. (3) Pathological fracture of left hip: s/p ORIF about 1 month ago. Incision well-healed. Minimal pain at this time. See above re: discussion about XRT. (4) Cigarette nicotine dependence: She has been attempting to quit. Nicoderm 7mg patch in meantime. (5) Hypothyroidism: TSH 08/01/19 wnl. Cont synthroid. (6) Gastroesophageal reflux disease: IV H2 sammy in darlene of PPI. (7) Essential hypertriglyceridemia: Hold gemfibrozil for now. (8) Hypomagnesemia: 2 grams mag sulfate IV x 1. Repeat mag level am. (9) Anemia: Multifactorial - lung ca, blood loss from surgery for left hip, etc. Consider iron supplementation once able to take PO. CBC in am. H/H stable in comparison to 1 month ago. (10) Chronic kidney disease, stage 3a: Creatinine stable/at baseline. BMP am. (11) Severe protein-calorie malnutrition: Documented 6kg weight loss in 1 month. 2nd to stage 4 lung cancer. When allowed to eat again consider saw tailer consult, MVI, boost, etc. (12) Pericardial effusion: Concerning for malignant effusion. Consider echo to quantify size No signs of clinical tamponade although does have mild JVD on examination. (13) DVT prophylaxis: lovenox once daily daughter updated at bedside History of Present Illness Chief Complaint: abdominal pain Primary Care Provider: Zion Bartholomew MD 79yo female with recently diagnosed stage 4 lung adenocarcinoma with mets to the bones (had left hip pathological fracture) who presents with ongoing left- sided abdominal pain starting last week about Sunday/Sunday. She has been unable to eat as food consumption makes it worse. She has been able to tolerate small amounts of clears and soup only. Had fever of 100 degrees on Sunday. Had associated vomiting yesterday am and this am. Several times last week she was encouraged to go to the ER but she declined. The pain got much worse this weekend and was quite severe this morning. Has been using oxcodone prn pain with some relief. She has been having liquid stools about 3 times each day. No blood but has seen mucous. Records suggest she was treated for diverticulitis during her prior hospitalization and was sent home with oral antibiotics after that stay. Last normal bowel movement was about 5 days ago. With respect to lung cancer - has received 5 days of radiation to her left hip last week, was supposed to have port placement today, and chemo was to be initiated tomorrow. Has lost weight in the last month - about 5 pounds. Allergies Allergy/AdvReac Type Severity Reaction Status Date / Time clarithromycin AdvReac Mild N/V Verified 08/04/19 08:07 codeine AdvReac Mild UPSET Verified 08/04/19 08:07 STOMACH hydrocodone AdvReac Mild N/V Verified 08/04/19 08:07 metronidazole [From Flagyl] AdvReac Mild Gastrointestinal Verified 08/04/19 08:07 Upset venlafaxine AdvReac Mild N/V Verified 08/04/19 08:07 Home Medications Home Medications Medication Instructions Recorded Confirmed Type calcium carbonate 600 mg calcium 600 mg PO BID tab 04/11/19 08/04/19 History (1,500 mg) tablet citalopram 40 mg tablet 60 mg PO QAM #135 tab 04/11/19 08/04/19 History cyanocobalamin (vit B-12) 1,000 1,000 mcg PO QAM tab 04/11/19 08/04/19 History mcg tablet gemfibrozil 600 mg tablet 600 mg PO BID #180 tab 04/11/19 08/04/19 History levothyroxine 100 mcg tablet 100 mcg PO QAM #90 tab 04/11/19 08/04/19 History omega-3 acid ethyl esters 1 cap PO QAM 06/30/19 08/04/19 History pantoprazole 40 mg tablet,delayed 40 mg PO QAM #90 tab 07/17/19 08/04/19 Rx release oxycodone 5 mg tablet 5 mg PO Q8H PRN #90 tab 07/25/19 08/04/19 Rx acetaminophen [Acetaminophen Extra 1,000 mg PO Q8H PRN 07/30/19 08/04/19 History Strength] folic acid 1 mg PO QAM 08/04/19 08/04/19 History Past Med/Surg History Medical History Irritable bowel syndrome (Acute) Hypothyroidism (Acute) Gastroesophageal reflux disease (Acute) Depression (Acute) Adenocarcinoma, lung Arthritis History of bronchitis History of diverticulitis Hyperlipidemia Lung cancer NEW DX Osteoarthritis Surgical History History of cataract surgery RT/LEFT History of colonoscopy History of dilatation and curettage History of discectomy CERVICAL (GOOD ROM) History of repair of rotator cuff RT History of tooth extraction S/P hip replacement left. 07/02/2019. SAB with MAC. no issues. S/P section X 1 Family History Family/Other Family history of diabetes mellitus Brother Family hx of colon cancer Mother , age 66 Diabetes Cancer ovarian Coronary heart disease had acute MA which led to her Sister Cancer Family/Other Breast cancer Father , age 49 Suicide Alcoholism Social History Preferred Language: Swedish Communication Ability: Effective Visual Impairment: No Limitations Hearing Ability: Normal Post Graduate Internship Required: No Beliefs That Will Affect Care: None marital status: Current Living Situation: Alone current occupational status: retired current occupation: worked at [employer] Other Information That Helps Us Care for You: No other: 1 daughter Feels Safe at Home: Yes Safety Concerns: Feels Safe At This Time Smoking Status: Current every day smoker Tobacco Type: cigarettes ; Age Started Using Tobacco: 21 ; packs per day: 0.5 ; Cigarettes Per Day: 5 ; Do You Dip or Chew Tobacco: No ; Second Hand Exposure: No ; Hx Alcohol Use: No Hx Substance Use: No Childhood Exposure to Second-Hand Smoke: Yes (both parents) caffeine: Yes Dental Care, Regularly: No Seatbelt Use: always Review of Systems Constitutional: + fever, + chills, + fatigue, + anorexia and + weight loss Eyes: no worsening vision Ear, Nose, Mouth, Throat: + nasal congestion; no sore throat and no dysphagia Respiratory: no cough, no dyspnea and no dyspnea on exertion Cardiovascular: no chest pain Gastrointestinal: + abdominal pain, + nausea, + vomiting and + diarrhea/loose stools; no blood in stools Genitourinary: + dysuria; no difficulty urinating and no hematuria Musculoskeletal: + joint pain; no back pain Integumentary: no rash Neurologic: no localized weakness and no numbness Psychiatric: no depression Endocrine: no diabetes Hematologic / Lymphatic: no easy bleeding and no easy bruising Physical Exam Constitutional: + thin; no acute distress and no altered mental status Eyes: PERRL (lens implants b/l ) ENMT: Mouth: + dry oral mucous membranes; no oropharynx abnormality Neck: trachea midline, no thyromegaly Respiratory: normal respiratory effort; no respiratory distress Auscultati on: lungs clear to auscultation bilaterally; no crackles and no wheezes Cardiovascular: Rate/Rhythm: regular rate and regular rhythm Heart Sounds: normal S1 and normal S2; no murmur Vessels: + JVD, posterior tibial pulses present and dorsalis pedis pulses present Extremities: no edema Gastrointestinal (Abdomen): Inspection/Auscultation: normal bowel sounds; abdomen not distended Percussion/Palpation: + abdomen tender (LLQ) and abdomen soft; no hepatosplenomegaly no rebound or peritoneal signs; surgical scar in midline Musculoskeletal: Extremities: + clubbing (fingernails) left lateral hip -- incision/scar clean/dry; steri-strips in place Skin: no rashes, warm and dry + pallor; no lesions Neurologic: deep tendon reflexes 2+ bilaterally and moves all extremities; no focal motor deficits Psychiatric: A+Ox3, euthymic affect Lymphatic: no cervical lymphadenopathy Results & Data Vital Signs (Past 12 Hours) Vital Signs Temp Pulse Pulse Resp BP BP Pulse Ox 08/04/19 09:09 71 16 108/53 L 99 08/04/19 07:13 36.8 C 96 H 20 127/73 96 Laboratory Results Laboratory Results - last 24 hr 08/04/19 08/04/19 08/04/19 07:35 07:35 07:35 WBC 14.49 H RBC 3.44 L Hgb 9.9 L Hct 30.4 L MCV 88.4 MCH 28.8 MCHC 32.6 RDW Std Deviation 47.4 H RDW Coeff of Raymundo 14.6 H Plt Count 430 H MPV 8.5 Immature Gran % (Auto) 0.6 Neut % (Auto) 84.1 Lymph % (Auto) 6.1 Leon % (Auto) 7.7 Eos % (Auto) 1.3 Baso % (Auto) 0.2 Immature Gran # (Auto) 0.09 H Neut # (Auto) 12.18 H Lymph # (Auto) 0.88 L Leon # (Auto) 1.12 H Eos # (Auto) 0.19 Baso # (Auto) 0.03 PT INR APTT PTT Ratio Sodium 138 Potassium 4.0 Chloride 108 H Carbon Dioxide 26 Anion Gap 4.0 BUN 13 Creatinine 0.85 Est Cr Clr Drug Dosing 46.9 Est GFR ( Amer) 76.6 Est GFR (Non-Af Amer) 66.1 BUN/Creatinine Ratio 14.8 Glucose 98 Calcium 9.2 Magnesium Total Bilirubin 0.2 AST 10 L ALT < 6 L Alkaline Phosphatase 76 Troponin I < 0.015 C-Reactive Protein 9.20 H Total Protein 7.6 Albumin 2.7 L Globulin 4.9 H Albumin/Globulin Ratio 0.6 L Lipase 55 L 08/04/19 08/04/19 07:35 09:03 WBC RBC Hgb Hct MCV MCH MCHC RDW Std Deviation RDW Coeff of Raymundo Plt Count MPV Immature Gran % (Auto) Neut % (Auto) Lymph % (Auto) Leon % (Auto) Eos % (Auto) Baso % (Auto) Immature Gran # (Auto) Neut # (Auto) Lymph # (Auto) Leon # (Auto) Eos # (Auto) Baso # (Auto) PT 12.1 H INR 1.2 H APTT 29.6 PTT Ratio 1.1 Sodium Potassium Chloride Carbon Dioxide Anion Gap BUN Creatinine Est Cr Clr Drug Dosing Est GFR ( Amer) Est GFR (Non-Af Amer) BUN/Creatinine Ratio Glucose Calcium Magnesium 1.6 L Total Bilirubin AST ALT Alkaline Phosphatase Troponin I C-Reactive Protein Total Protein Albumin Globulin Albumin/Globulin Ratio Lipase Diagnostic Findings CT abd/pelvis: IMPRESSION: 1. Slight interval increase in the size of a small pericardial effusion 2. 1 mm increase in the size of a right middle lobe pulmonary nodule currently measuring 10 mm 3. Cholelithiasis and mild gallbladder distention 4. Rectosigmoid wall thickening with multiple diverticula and infiltration of pe ridiverticular fat. Diagnostic considerations include long segment diverticulitis versus infectious/inflammatory colitis. The findings have worsened when compared the preceding June 30 study 5. New 33 mm cystic right adnexal lesion 6. Stable 18 mm left adrenal nodule EKG - my reading - NSR, low voltage, NS ST changes I/AVl, V2 cxr - emphysema, no infiltrates Code Status & VTE Plan Code Status conditional code - chest compressions, shocks ok; NO intubation/mechanical ventilation this discussion was in presence of daughter VTE Prophylaxis Plan VTE Prophylaxis will be ordered: Yes PG Care Time/CCT Total # of Minutes Spent Total Time Spent with Patient: Total time spent is greater than 50% in coordination of care (as documented) at patient's floor/unit and/or counseling patient: (1) Adenocarcinoma of lung, stage 4 Laterality: unspecified laterality Qualified Code(s): C34.90 - Malignant neoplasm of unspecified part of unspecified bronchus or lung (2) Pathological fracture of left hip Pathology associated with fracture: neoplastic disease Encounter type: sequela Qualified Code(s): M84.552S - Pathological fracture in neoplastic disease, left femur, sequela (3) Cigarette nicotine dependence Substance use status: uncomplicated Qualified Code(s): F17.210 - Nicotine dependence, cigarettes, uncomplicated (4) Hypothyroidism Hypothyroidism type: acquired Qualified Code(s): E03.9 - Hypothyroidism, unspecified (5) Gastroesophageal reflux disease Esophagitis presence: esophagitis presence not specified Qualified Code(s): K21.9 - Gastro-esophageal reflux disease without esophagitis (6) Anemia Anemia type: other cause Other causes of anemia: other cause, not classified Qualified Code(s): D64.89 - Other specified anemias
--- NOTE | 2019-08-04 10:11 | Emergency Department Note ---
History of Present Illness General Chief complaint: GI Assessment Stated complaint: POSSIBLE INFECTION/DIVERTICULITIS Time Seen by Provider: 08/04/19 07:20 History of Present Illness Maximum Pain Intensity: 2 79-year-old female who presents to the emergency department for evaluation of le ft lower quadrant abdominal pain. The patient reports that she was admitted to the hospital 1 month ago for a left hip fracture. On that admission, she was also diagnosed with lung cancer with metastasis to the bones, as well as diverticulitis. The patient was treated with Augmentin antibiotics for her diverticulitis. She reports that her pain has persisted since her admission. The patient reports that she has had decreased appetite as well as nausea. The patient has not noticed any blood in her stools. The pain is worsened with movement. The patient currently rates her discomfort a 4 out of 10. The patient reports that she was scheduled for a port placement this morning at 7 AM, but anesthesiology thought that she should come to the emergency department for further evaluation. Home Medications Home Medications Medication Instructions Recorded Confirmed Type calcium carbonate 600 mg calcium 600 mg PO BID tab 04/11/19 08/04/19 History (1,500 mg) tablet citalopram 40 mg tablet 60 mg PO QAM #135 tab 04/11/19 08/04/19 History cyanocobalamin (vit B-12) 1,000 1,000 mcg PO QAM tab 04/11/19 08/04/19 History mcg tablet gemfibrozil 600 mg tablet 600 mg PO BID #180 tab 04/11/19 08/04/19 History levothyroxine 100 mcg tablet 100 mcg PO QAM #90 tab 04/11/19 08/04/19 History omega-3 acid ethyl esters 1 cap PO QAM 06/30/19 08/04/19 History pantoprazole 40 mg tablet,delayed 40 mg PO QAM #90 tab 07/17/19 08/04/19 Rx release oxycodone 5 mg tablet 5 mg PO Q8H PRN #90 tab 07/25/19 08/04/19 Rx acetaminophen [Acetaminophen Extra 1,000 mg PO Q8H PRN 07/30/19 08/04/19 History Strength] folic acid 1 mg PO QAM 08/04/19 08/04/19 History Allergies Allergy/AdvReac Type Severity Reaction Status Date / Time clarithromycin AdvReac Mild N/V Verified 08/04/19 08:07 codeine AdvReac Mild UPSET Verified 08/04/19 08:07 STOMACH hydrocodone AdvReac Mild N/V Verified 08/04/19 08:07 metronidazole [From Flagyl] AdvReac Mild Gastrointestinal Verified 08/04/19 08:07 Upset venlafaxine AdvReac Mild N/V Verified 08/04/19 08:07 Past Med/Surg History Medical History Irritable bowel syndrome (Acute) Hypothyroidism (Acute) Gastroesophageal reflux disease (Acute) Depression (Acute) Adenocarcinoma, lung Arthritis History of bronchitis History of diverticulitis Hyperlipidemia Lung cancer NEW DX Osteoarthritis Surgical History History of cataract surgery RT/LEFT History of colonoscopy History of dilatation and curettage History of discectomy CERVICAL (GOOD ROM) History of repair of rotator cuff RT History of tooth extraction S/P section X 1 S/P hip replacement left. 07/02/2019. SAB with MAC. no issues. Family History Family/Other Family history of diabetes mellitus Brother Family hx of colon cancer Mother , age 66 Diabetes Cancer ovarian Coronary heart disease had acute ME which led to her Sister Cancer Family/Other Breast cancer Father , age 49 Suicide Alcoholism Social History Preferred Language: Serbian Communication Ability: Effective Visual Impairment: No Limitations Hearing Ability: Normal Syrup Mixer Assistant Required: No Beliefs That Will Affect Care: None marital status: Current Living Situation: Alone current occupational status: retired current occupation: worked at [employer] Other Information That Helps Us Care for You: No other: 1 daughter Feels Safe at Home: Yes Safety Concerns: Feels Safe At This Time Smoking Status: Current every day smoker Tobacco Type: cigarettes ; Age Started Using Tobacco: 21 ; packs per day: 0.5 ; Cigarettes Per Day: 5 ; Do You Dip or Chew Tobacco: No ; Second Hand Exposure: No ; Hx Alcohol Use: No Hx Substance Use: No Childhood Exposure to Second-Hand Smoke: Yes (both parents) caffeine: Yes Dental Care, Regularly: No Seatbelt Use: always Review of Systems 10 system review was performed and was negative except for pertinent positives and negatives as indicated in history of present illness Physical Exam Vital Signs Vital Signs - 24 hr 08/04/19 07:13 08/04/19 08:33 08/04/19 09:09 Temperature 36.8 C Temperature Source Oral Sepsis Recent Fever Within 48 Hours No Sepsis Action Taken by Nursing No Action Required Pulse Rate 96 H Pulse Rate [Apical] 71 Pulse Rhythm Regular Pulse Rhythm [Apical] Regular Pulse Strength Normal Respiratory Rate 20 16 Respiratory Effort / Characteristics Non-Labored Spontaneous Non-Labored Spontaneous Respiratory Depth Normal Normal Respiratory Pattern Regular Regular Blood Pressure 127/73 Blood Pressure [Right Arm] 108/53 L Blood Pressure Mean 91 Blood Pressure Mean [Right Arm] 71 Pulse Oximetry 96 99 Oxygen Delivery Method Room Air Nasal Cannula Nasal Cannula Oxygen Flow Rate 2 2 CONSTITUTIONAL: Healthy and well nourished. Alert and oriented X 3. Patient appears in moderately severe discomfort. HEENT: Normocephalic, atraumatic. Pupils equal, round and reactive. No scleral icterus or conjunctival injection/pallor. NECK: Full active range of motion without discomfort. LYMPHATICS: No obvious adenopathy. RESPIRATORY: Clear to auscultation bilaterally with no wheezing, crackles, rhonchi or stridor. CARDIOVASCULAR: Regular rate and rhythm with no murmurs, rubs or gallops. GASTROINTESTINAL: Bowel sounds present in all quadrants. Patient has notable left lower quadrant tenderness to palpation with guarding. No rigidity or rebound tenderness. Negative CVA tenderness. MUSCULOSKELETAL: Pelvis is stable with rock. Left hip surgical incision has healed well without any surrounding erythema, edema or fluctuance. INTEGUMENTARY: No rash or other significant dermatologic conditions noted. HEMATOLOGIC: No ecchymosis or petechiae. PSYCHIATRIC: Positive affect. NEUROLOGIC: No focal neurologic deficits noted. Upper and lower extremities are sensory intact. Course Patient history and physical exam were performed. Nurse's notes were reviewed. Vital signs were reviewed and were normal. IV access was established, and labs were drawn. The patient was hydrated with a liter normal saline, and was initially administered Dilaudid 0.5 mg and Zofran 4 mg IVP. The patient did report significant relief of symptoms, but did have an episode of hypoxia with her O2 saturation dropping to the mid 70s. The patient was placed on O2 via nasal cannula at 4 L/min. Labs were reviewed to show a moderate leukocytosis. She also has thrombocytosis. Hemoglobin is 9.9. CMP did not show any significant abnormalities. CRP is elevated. Troponin and ECG were normal. A portable chest x-ray was also normal. CT of the abdomen and pelvis with IV contrast does show a worsening diverticulitis without obstruction, abscess formation or perforation. The patient was administered Zosyn 4.5 g IV infusion. On reevaluation, the patient was hemodynamically stable with oxygen saturation of 99% on oxygen via nasal cannula at 4 L/min. Findings were discussed with Dr. Srinivasan, ED attending physician, who also evaluated the patient and agrees with hospitalist consultation. The case was further discussed with Dr. Moon, [facility] group hospitalist. She does agree with admission. Please see the hospitalist service dictations for further treatment and final disposition. Administered Medications Potassium Chloride/Dextrose/Sod Cl (D5nss + 20meq Kcl) 20 meq in 1,000 mls @ 100 mls/hr IV .Q10H JOSE E Stop: 09/03/19 12:42 Last Admin: 08/04/19 13:09 Dose: 100 mls/hr Documented by: [id number] Folic Acid 1 mg/ Syringe 10 mls @ 5 mls/min IV QAM JOSE E Stop: 09/03/19 12:42 Last Admin: 08/04/19 13:08 Dose: 5 mls/min Documented by: [id number] Piperacillin Sod/Tazobactam (Sod 3.375 gm/ Dextrose) 115 mls @ 28.75 mls/hr IV Q8H JOSE E; Protocol Stop: 08/14/19 17:59 Last Admin: 08/04/19 18:19 Dose: 28.8 mls/hr Documented by: [id number] Ranitidine HCl 50 mg/ Dextrose 102 mls @ 200 mls/hr IV Q8H JOSE E Stop: 09/03/19 12:42 Last Infusion: 08/04/19 14:27 Dose: 0 mls/hr Documented by: [id number] Admin: 08/04/19 13:09 Dose: 200 mls/hr Documented by: [id number] Morphine Sulfate (Morphine Sulfate) 2 mg IV Q3H PRN PRN Reason: Pain Stop: 08/18/19 12:42 Last Admin: 08/04/19 14:16 Dose: 2 mg Documented by: [id number] Nicotine (Nicoderm Cq) 7 mg TD QAM JOSE E Stop: 09/03/19 13:29 Last Admin: 08/04/19 13:08 Dose: 7 mg Documented by: [id number] Discontinued Medications Hydromorphone HCl (Dilaudid) 0.5 mg IV NOW STA Stop: 08/04/19 07:54 Last Admin: 08/04/19 08:00 Dose: 0.5 mg Documented by: [id number] Sodium Chloride (Nss 1000ml) 1,000 mls @ 999 mls/hr IV .Q1H1M ONE Stop: 08/04/19 08:28 Last Infusion: 08/04/19 09:06 Dose: 0 mls/hr Documented by: [id number] Admin: 08/04/19 07:44 Dose: 999 mls/hr Documented by: [id number] Piperacillin Sod/Tazobactam Sod (Zosyn) 4.5 gm in 120 mls @ 240 mls/hr IV NOW ONE Stop: 08/04/19 10:20 Last Infusion: 08/04/19 12:00 Dose: 0 mls/hr Documented by: [id number] Admin: 08/04/19 11:16 Dose: 240 mls/hr Documented by: [id number] Magnesium Sulfate/Dextrose (Magnesium Sulfate / D5w) 1 gm in 100 mls @ 100 mls/hr IV Q1H JOSE E Stop: 08/04/19 13:44 Last Infusion: 08/04/19 14:38 Dose: 0 mls/hr Documented by: [id number] Admin: 08/04/19 13:08 Dose: 100 mls/hr Documented by: [id number] Infusion: 08/04/19 13:00 Dose: 100 mls/hr Documented by: [id number] Admin: 08/04/19 12:00 Dose: 100 mls/hr Documented by: [id number] Sodium Chloride (Nss 1000ml) 500 mls @ 999 mls/hr IV .Q31M ONE Stop: 08/04/19 17:52 Last Infusion: 08/04/19 18:23 Dose: 0 mls/hr Documented by: [id number] Admin: 08/04/19 17:39 Dose: 999 mls/hr Documented by: [id number] Ioversol (Optiray 320 100ml) 94 ml IV ONCE PRN PRN Reason: Interaction Checking Stop: 08/08/19 09:07 Last Admin: 08/04/19 09:08 Dose: 94 ml Documented by: [id number] Ondansetron HCl (Zofran) 4 mg IV NOW STA Stop: 08/04/19 07:54 Last Admin: 08/04/19 08:00 Dose: 4 mg Documented by: [id number] Medical Decision Making Medical Records Attestation: I reviewed the patient's medical records. Home Medications Current Medication List: was personally reviewed by me Laboratory Data Attestation: I reviewed the patient's lab results. Result diagrams: 08/04/19 07:35 08/04/19 07:35 Lab Results 08/04/19 08/04/19 08/04/19 Range/Units 07:35 07:35 07:35 WBC 14.49 H (4.8-10.8) K/uL RBC 3.44 L (4.2-5.4) M/uL Hgb 9.9 L (12.0-16.0) g/dL Hct 30.4 L (37-47) % MCV 88.4 (80-100) fL MCH 28.8 (25-34) pg MCHC 32.6 (32-36) g/dL RDW Std Deviation 47.4 H (36.4-46.3) fL RDW Coeff of Raymundo 14.6 H (11.5-14.5) % Plt Count 430 H (130-400) K/uL MPV 8.5 (7.4-10.4) fL Immature Gran % (Auto) 0.6 % Neut % (Auto) 84.1 % Lymph % (Auto) 6.1 % Dickenson % (Auto) 7.7 % Eos % (Auto) 1.3 % Baso % (Auto) 0.2 % Immature Gran # (Auto) 0.09 H (0.00-0.02) K/uL Neut # (Auto) 12.18 H (1.4-6.5) K/uL Lymph # (Auto) 0.88 L (1.2-3.4) K/uL Dickenson # (Auto) 1.12 H (0.11-0.59) K/uL Eos # (Auto) 0.19 (0-0.5) K/uL Baso # (Auto) 0.03 (0-0.2) K/uL PT (9.0-12.0) Seconds INR (0.9-1.1) APTT (21.0-31.0) Seconds PTT Ratio Sodium 138 (136-145) mmol/L Potassium 4.0 (3.5-5.1) mmol/L Chloride 108 H (98-107) mmol/L Carbon Dioxide 26 (21-32) mmol/L Anion Gap 4.0 (3-11) BUN 13 (7-18) mg/dl Creatinine 0.85 (0.6-1.2) mg/dl Est Cr Clr Drug Dosing 46.9 ml/min Est GFR ( Amer) 76.6 Est GFR (Non-Af Amer) 66.1 BUN/Creatinine Ratio 14.8 (10-20) Glucose 98 (70-99) mg/dl Calcium 9.2 (8.5-10.1) mg/dl Magnesium (1.8-2.4) mg/dl Total Bilirubin 0.2 (0.2-1) mg/dl AST 10 L (15-37) U/L ALT < 6 L (12-78) U/L Alkaline Phosphatase 76 (45-117) U/L Troponin I < 0.015 (0-0.045) ng/ml C-Reactive Protein 9.20 H (0-0.29) mg/dl Total Protein 7.6 (6.4-8.2) gm/dl Albumin 2.7 L (3.4-5.0) gm/dl Globulin 4.9 H (2.5-4.0) gm/dl Albumin/Globulin Ratio 0.6 L (0.9-2) Lipase 55 L (73-393) U/L 08/04/19 08/04/19 Range/Units 07:35 09:03 WBC (4.8-10.8) K/uL RBC (4.2-5.4) M/uL Hgb (12.0-16.0) g/dL Hct (37-47) % MCV (80-100) fL MCH (25-34) pg MCHC (32-36) g/dL RDW Std Deviation (36.4-46.3) fL RDW Coeff of Raymundo (11.5-14.5) % Plt Count (130-400) K/uL MPV (7.4-10.4) fL Immature Gran % (Auto) % Neut % (Auto) % Lymph % (Auto) % Dickenson % (Auto) % Eos % (Auto) % Baso % (Auto) % Immature Gran # (Auto) (0.00-0.02) K/uL Neut # (Auto) (1.4-6.5) K/uL Lymph # (Auto) (1.2-3.4) K/uL Dickenson # (Auto) (0.11-0.59) K/uL Eos # (Auto) (0-0.5) K/uL Baso # (Auto) (0-0.2) K/uL PT 12.1 H (9.0-12.0) Seconds INR 1.2 H (0.9-1.1) APTT 29.6 (21.0-31.0) Seconds PTT Ratio 1.1 Sodium (136-145) mmol/L Potassium (3.5-5.1) mmol/L Chloride (98-107) mmol/L Carbon Dioxide (21-32) mmol/L Anion Gap (3-11) BUN (7-18) mg/dl Creatinine (0.6-1.2) mg/dl Est Cr Clr Drug Dosing ml/min Est GFR ( Amer) Est GFR (Non-Af Amer) BUN/Creatinine Ratio (10-20) Glucose (70-99) mg/dl Calcium (8.5-10.1) mg/dl Magnesium 1.6 L (1.8-2.4) mg/dl Total Bilirubin (0.2-1) mg/dl AST (15-37) U/L ALT (12-78) U/L Alkaline Phosphatase (45-117) U/L Troponin I (0-0.045) ng/ml C-Reactive Protein (0-0.29) mg/dl Total Protein (6.4-8.2) gm/dl Albumin (3.4-5.0) gm/dl Globulin (2.5-4.0) gm/dl Albumin/Globulin Ratio (0.9-2) Lipase (73-393) U/L Imaging Data Attestation: I personally reviewed and interpreted this imaging study as follows: My Impression: My interpretation of a CT of the abdomen and pelvis with IV contrast shows evidence for worsening diverticulitis without perforation, abscess or other concerning findings. My interpretation of a portable chest x-ray did not show any consolidations, pneumothorax or other concerning findings. Radiologist reports were reviewed. Radiologist's Impression: CT abd pelvis IV con only CLINICAL HISTORY: Abd pain - recent diverticulitis, lung CA w/ mets COMPARISON STUDY: 07/18/2019 TECHNIQUE: The patient was scanned in a dynamic helical fashion during intravenous administration of 94 cc of Optiray 320. A dose lowering technique was utilized adhering to the principles of ALARA. CT DOSE: 295.92 mGy.cm FINDINGS: Lower chest: There is a small pericardial effusion minimally larger than on the preceding study. There are dependent airspace opacities, likely atelectatic. There is a 1 cm right lower lobe pulmonary nodule, 1 mm larger than on the preceding examination. Liver: The contrast-enhanced liver is normal in size, contour, and attenuation. There is no intrahepatic biliary ductal dilatation. The hepatic veins and portal veins are patent. Gallbladder: Cholelithiasis. Mildly distended. No common bile duct dilatation. Spleen: Mildly enlarged measuring 12.7 cm Pancreas: Unremarkable. Adrenal glands: There are 2 left adrenal nodules the largest of which measures 1 8 mm. This remains unchanged in size from the prior study Kidneys: There is a 17 mm right renal cyst. Additional tiny hypodensities likely represent additional cysts. There is no significant hydronephrosis. Bowel: There is sigmoid wall thickening and infiltration of the perisigmoid fat. The findings are indicative of acute the findings represent either acute diverticulitis, or an infectious/inflammatory colitis. Peritoneum: There is no intraperitoneal free air or abdominal ascites. Vasculature: The abdominal aorta is normal in course and caliber. Adenopathy: None. Pelvic viscera: There are multiple uterine fibroids. There is a 33 mm adnexal cystic lesion. This was not present on the prior study, and is therefore of some concern. Skeletal structures: There are postsurgical changes of a total left hip arthroplasty. No destructive lesions are visualized. IMPRESSION: 1. Slight interval increase in the size of a small pericardial effusion 2. 1 mm increase in the size of a right middle lobe pulmonary nodule currently measuring 10 mm 3. Cholelithiasis and mild gallbladder distention 4. Rectosigmoid wall thickening with multiple diverticula and infiltration of peridiverticular fat. Diagnostic considerations include long segment diverticulitis versus infectious/inflammatory colitis. The findings have worsened when compared the preceding June 30 study 5. New 33 mm cystic right adnexal lesion 6. Stable 18 mm left adrenal nodule XR chest 1V portable HISTORY: 79 years-old Female Chest Pain acute atypical chest pain COMPARISON: Chest CT 07/01/2019, chest radiograph 06/30/2019 TECHNIQUE: Portable AP view of the chest FINDINGS: Cardiomediastinal and hilar silhouettes are unchanged. Emphysema with chronic interstitial coarsening. Minimal bibasilar opacities suggest atelectasis. Calcified plaque of the thoracic aortic arch. There is no pneumothorax, pleural effusion or overt pulmonary edema. Degenerative changes of the shoulders and spine. Right shoulder rotator cuff calcific tendinosis. Surgical clips project over the right neck. IMPRESSION: Emphysema without acute process. ECG Data Attestation: I personally reviewed and interpreted this ECG as follows: Indication: abdominal pain Rate (beats per minute): 74 Rhythm: normal sinus Findings: + other (Low voltage QRS was no ST elevation, PVCs or other conduction abnormalities.) Comparison ECG Date: from (06/30/2019) Change: no significant change Blood Pressure Blood Pressure Findings: Low blood pressure Additional Comments: Initial blood pressure was normal, however the patient had become mildly hypertensive after IV analgesics. The patient was hydrated with normal saline. MDM Narrative Patient presents the emergency department with complaint of persistent and worsening left lower quadrant abdominal pain. The patient was admitted to our facility approximately 1 month ago for pathologic left hip fracture secondary to metastasis from a right lung cancer. He was also found to have diverticulitis on her admission. The patient was treated outpatient with Augmentin antibiotics. The patient does have an allergic reaction to metronidazole, however different choice of antibiotic was selected while in the emergency department. The patient may require infectious disease consult. Impression & Plan Diverticulitis, Hypoxia, Acute hypotension, Breast cancer metastasized to bone Discharge Plan Visit Data *Final* Discharge Date/Time: 08/04/19 12:06 Chief Complaint: GI Assessment Stated Complaint: POSSIBLE INFECTION/DIVERTICULITIS ED Provider: Dimitri Srinivasan ED Midlevel Provider: Abiodun Leach Discharge Problem: Diverticulitis, Hypoxia, Acute hypotension, Breast cancer metastasized to bone Patient Disposition: Admitted As Inpatient Discharge Instructions Interventions: ED Discharge Assessment Last Done: 08/04/19 12:06
[2019-08-04] MEDS: MAGNESIUM SULFATE / D5W 1 GM/100 ML BAG IV SCH ×2 (12:00→13:08)
[2019-08-04 12:16] LABS: Appearance Urine Clear (Clear); Bilirubin Urine Negative (Negative); Blood Urine Negative (Negative); Color Urine Yellow; Glucose Urine UA Negative (Negative); Ketones Urine Negative (Negative); Leukocyte Esterase Urine Negative (Negative); Nitrite Urine Negative (Negative); Protein Urine Negative (Negative); Specific Gravity Urine > 1.045 (1.000-1.030); Urobilinogen Urine Negative (Negative)
[2019-08-04] MEDS: NICOTINE 7 MG/24 HR TDSY TD SCH (13:08)
[2019-08-04] MEDS: FOLIC ACID 1 MG in SYRINGE 9.8 ML IV SCH (13:08)
[2019-08-04] MEDS: D5NSS + 20MEQ KCL 20 MEQ/1,000 ML BAG IV SCH (13:09)
[2019-08-04] MEDS: MoRPHine SULFATE 2 MG/ML CARP IV PRN (14:16)
[2019-08-04] MEDS ORDERED: SODIUM CHLORIDE 0.9% 1000ML 500 ML IV ONE (17:22)
[2019-08-04] MEDS: PIPERACILLIN/TAZOBACTAM 3.375 GM in DEXTROSE 5% 100 ML IV SCH (18:19)
[2019-08-04] MEDS: ENOXAPARIN INJ 40 MG/0.4 ML SYR SQ SCH (20:39)
[2019-08-05] MEDS: D5NSS + 20MEQ KCL 20 MEQ/1,000 ML BAG IV SCH ×3 (01:52→20:12)
[2019-08-05] MEDS: PIPERACILLIN/TAZOBACTAM 3.375 GM in DEXTROSE 5% 100 ML IV SCH ×3 (01:52→17:55)
[2019-08-05] MEDS: LEVOTHYROXINE SODIUM 100 MCG TABLET PO SCH (05:41)
[2019-08-05] MEDS: MoRPHine SULFATE 2 MG/ML CARP IV PRN ×2 (05:46→09:25)
[2019-08-05 07:14] LABS: Hemoglobin 8.3 g/dL (12.0-16.0); Mean Corpuscular Hemoglobin 28.7 pg (25-34); Mean Corpuscular Hgb Conc 31.9 g/dL (32-36); Mean Platelet Volume 8.2 fL (7.4-10.4); Platelet Count 309 K/uL (130-400); RDW Coefficient of Variation 14.7 % (11.5-14.5); RDW Standard Deviation 48.5 fL (36.4-46.3); Red Blood Count 2.89 M/uL (4.2-5.4); White Blood Count 10.76 K/uL (4.8-10.8)
[2019-08-05 07:48] LABS: BUN Creatinine Ratio 8.3 (10-20); Calcium 8.4 mg/dl (8.5-10.1); Creatinine Clr Calc Pharmacy 49.8 ml/min; Est GFR (African American) 82.4; Est GFR (Non-African American) 71.1; Magnesium 1.7 mg/dl (1.8-2.4); Potassium 3.8 mmol/L (3.5-5.1)
[2019-08-05] MEDS: FOLIC ACID 1 MG in SYRINGE 9.8 ML IV SCH (08:23)
[2019-08-05] MEDS: CITALOPRAM 40 MG TAB PO SCH (08:23)
[2019-08-05] MEDS: NICOTINE 7 MG/24 HR TDSY TD SCH (08:23)
--- NOTE | 2019-08-05 15:13 | Hospitalist Progress Note ---
Date of Service August 05, 2019 Assessment & Plan (1) Sigmoid diverticulitis: Continue sigmoid diverticulitis . Diagnosed with same issue during prior admission 1 month ago at the same location. Treated with IV unasyn, then transitioned to PO augmentin at discharge. Completed 10 days of IV/PO antibiotics then. Returns with nearly 1 week of LLQ abd pain, nausea, vomiting, inability to eat, etc. Continue Zosyn that was started in the ER. NPO except ice chips. IVF. IV pain meds. Consider GI and/or gen surg consultations. To ensure no infectious colitis will send c.diff and stool culture-pending results She is also c/o dysuria - will send u/a and urine cx. (2) Adenocarcinoma of lung, stage 4: Dx 1 month ago. Presented with pathological left hip fracture. s/p ORIF. Bone bx c/w adenocarcinoma of lung origin. CTs with right lung nodule which is likely primary site. Seen by Dr Quintero at [facility]. Was to begin chemotherapy TOMORROW. She is already s/p XRT x 5 (of 10) treatments to the left hip. Was to have port placed by Dr Parker today. I alerted Dr Hernández of pt's admission. hold off on XRT today; consider resuming next 48 hours depending on pt's status. (3) Pathological fracture of left hip: s/p ORIF about 1 month ago. Incision well-healed. Minimal pain at this time. See above re: discussion about XRT. (4) Cigarette nicotine dependence: She has been attempting to quit. Nicoderm 7mg patch in meantime. (5) Hypothyroidism: TSH 08/01/19 wnl. Cont synthroid. (6) Gastroesophageal reflux disease: IV H2 sammy in darlene of PPI. (7) Essential hypertriglyceridemia: Hold gemfibrozil for now. (8) Hypomagnesemia: Magnesium 1.7 after 2 g given in the ER. Will give another 1 g of Magnesium Present on Admission?: Yes (9) Anemia: Multifactorial - lung ca, blood loss from surgery for left hip, etc. Consider iron supplementation once able to take PO. CBC in am. H/H stable in comparison to 1 month ago. (10) Chronic kidney disease, stage 3a: Creatinine stable/at baseline. BMP am. (11) Severe protein-calorie malnutrition: Documented 6kg weight loss in 1 month. 2nd to stage 4 lung cancer. When allowed to eat again consider household chores consult, MVI, boost, etc. (12) Pericardial effusion: Concerning for malignant effusion. Consider echo to quantify size No signs of clinical tamponade although does have mild JVD on examination. (13) DVT prophylaxis: lovenox once daily daughter updated at bedside Results & Data Vital Signs (Past 12 Hours) Vital Signs Temp Pulse Resp BP Pulse Ox 08/05/19 11:42 36.8 C 67 13 103/62 95 08/05/19 07:38 37.2 C 72 12 101/59 L 95 08/05/19 04:00 37.0 C 74 18 122/69 93 PG Care Time/CCT Total # of Minutes Spent Total Time Spent with Patient: Total time spent is greater than 50% in coordination of care (as documented) at patient's floor/unit and/or counseling patient: (1) Adenocarcinoma of lung, stage 4 Laterality: unspecified laterality Qualified Code(s): C34.90 - Malignant neoplasm of unspecified part of unspecified bronchus or lung (2) Anemia Anemia type: other cause Other causes of anemia: other cause, not classified Qualified Code(s): D64.89 - Other specified anemias (3) Hypothyroidism Hypothyroidism type: acquired Qualified Code(s): E03.9 - Hypothyroidism, unspecified (4) Cigarette nicotine dependence Substance use status: uncomplicated Qualified Code(s): F17.210 - Nicotine dependence, cigarettes, uncomplicated (5) Pathological fracture of left hip Encounter type: sequela Pathology associated with fracture: neoplastic disease Qualified Code(s): M84.552S - Pathological fracture in neoplastic di sease, left femur, sequela (6) Gastroesophageal reflux disease Esophagitis presence: esophagitis presence not specified Qualified Code(s): K21.9 - Gastro-esophageal reflux disease without esophagitis
[2019-08-05] MEDS ORDERED: MAGNESIUM SULFATE / D5W 1 GM/100 ML BAG IV ONE (19:15)
[2019-08-05] MEDS: ENOXAPARIN INJ 40 MG/0.4 ML SYR SQ SCH (20:13)
[2019-08-06] MEDS: PIPERACILLIN/TAZOBACTAM 3.375 GM in DEXTROSE 5% 100 ML IV SCH ×3 (02:01→18:23)
[2019-08-06] MEDS: D5NSS + 20MEQ KCL 20 MEQ/1,000 ML BAG IV SCH ×2 (05:40→15:55)
[2019-08-06] MEDS: LEVOTHYROXINE SODIUM 100 MCG TABLET PO SCH (05:41)
[2019-08-06] MEDS: MoRPHine SULFATE 2 MG/ML CARP IV PRN (05:45)
[2019-08-06 06:37] LABS: Basophils # (auto) 0.02 K/uL (0-0.2); Basophils % (auto) 0.2 %; Eosinophils # (auto) 0.28 K/uL (0-0.5); Eosinophils % (auto) 3.1 %; Hematocrit (blood only) 26.4 % (37-47); Hemoglobin 8.4 g/dL (12.0-16.0); Immature Granulocytes # (auto) 0.05 K/uL (0.00-0.02); Immature Granulocytes % (auto) 0.6 %; Lymphocytes # (auto) 0.84 K/uL (1.2-3.4); Lymphocytes % (auto) 9.4 %; Mean Corpuscular Hemoglobin 28.6 pg (25-34); Mean Corpuscular Hgb Conc 31.8 g/dL (32-36); Mean Corpuscular Volume 89.8 fL (80-100); Mean Platelet Volume 8.7 fL (7.4-10.4); Monocytes # (auto) 0.97 K/uL (0.11-0.59); Monocytes % (auto) 10.9 %; Neutrophils # (auto) 6.78 K/uL (1.4-6.5); Neutrophils % (auto) 75.8 %; Platelet Count 293 K/uL (130-400); RDW Coefficient of Variation 14.7 % (11.5-14.5); RDW Standard Deviation 48.3 fL (36.4-46.3); Red Blood Count 2.94 M/uL (4.2-5.4); White Blood Count 8.94 K/uL (4.8-10.8)
[2019-08-06 07:17] LABS: Alanine Aminotransferase < 6 U/L (12-78); Albumin Level 2.2 gm/dl (3.4-5.0); Aspartate Aminotransferase 5 U/L (15-37); BUN Creatinine Ratio 5.8 (10-20); Blood Urea Nitrogen 4 mg/dl (7-18); Calcium 8.3 mg/dl (8.5-10.1); Carbon Dioxide 22 mmol/L (21-32); Chloride 111 mmol/L (98-107); Creatinine Clr Calc Pharmacy 57.7 ml/min; Est GFR (African American) 97.3; Glucose 117 mg/dl (70-99); Potassium 3.6 mmol/L (3.5-5.1); Sodium 139 mmol/L (136-145)
[2019-08-06 07:19] LABS: Albumin Globulin Ratio 0.5 (0.9-2); Alkaline Phosphatase 58 U/L (45-117); Bilirubin,Total 0.2 mg/dl (0.2-1); Globulin 4.2 gm/dl (2.5-4.0); Total Protein 6.4 gm/dl (6.4-8.2)
[2019-08-06] MEDS: CITALOPRAM 40 MG TAB PO SCH (08:30)
[2019-08-06] MEDS: NICOTINE 7 MG/24 HR TDSY TD SCH (08:30)
[2019-08-06] MEDS: FOLIC ACID 1 MG in SYRINGE 9.8 ML IV SCH (09:24)
[2019-08-06] MEDS: OXYCODONE/ACETAMINOPHEN 5mg/325mg TAB PO PRN ×2 (10:47→21:18)
[2019-08-06] MEDS: ONDANSETRON INJ 2 MG/ML 2 ML VIAL IV PRN (10:47)
--- NOTE | 2019-08-06 17:29 | Hospitalist Progress Note ---
Date of Service August 06, 2019 Assessment & Plan (1) Sigmoid diverticulitis: Continue IV fluid hydration for sigmoid diverticulitis. Diagnosed with same issue during prior admission 1 month ago at the same location. Treated with IV unasyn, then transitioned to PO augmentin at discharge. Completed 10 days of IV/PO antibiotics then. Returns with nearly 1 week of LLQ abd pain, nausea, vomiting, inability to eat, etc. Continue Zosyn that was started in the ER. Advance diet as tolerated. IVF. IV pain meds. Consider GI and/or gen surg consultations. Postpone radiation therapy. To ensure no infectious colitis will send c.diff and stool culture-pending results She is also c/o dysuria - will send u/a and urine cx. (2) Adenocarcinoma of lung, stage 4: Dx 1 month ago. Presented with pathological left hip fracture. s/p ORIF. Bone bx c/w adenocarcinoma of lung origin. CTs with right lung nodule which is likely primary site. Seen by Dr Quintero at [facility]. Was to begin chemotherapy TOMORROW. She is already s/p XRT x 5 (of 10) treatments to the left hip. Was to have port placed by Dr Parker today. This was postponed. We postpone radiation therapy for Sunday depending on patient's status (3) Pathological fracture of left hip: s/p ORIF about 1 month ago. Incision well-healed. Minimal pain at this time. See above re: discussion about XRT. (4) Cigarette nicotine dependence: She has been attempting to quit. Nicoderm 7mg patch in meantime. (5) Hypothyroidism: TSH 08/01/19 wnl. Cont synthroid. (6) Gastroesophageal reflux disease: IV H2 sammy in darlene of PPI. (7) Essential hypertriglyceridemia: Hold gemfibrozil for now. (8) Hypomagnesemia: Improved (9) Anemia: Multifactorial - lung ca, blood loss from surgery for left hip, etc. Consider iron supplementation once able to take PO. CBC in am. H/H stable in comparison to 1 month ago. (10) Chronic kidney disease, stage 3a: Creatinine stable/at baseline. BMP am. (11) Severe protein-calorie malnutrition: Documented 6kg weight loss in 1 month. 2nd to stage 4 lung cancer. When allowed to eat again consider hyperbaric technologist consult, MVI, boost, etc. (12) Pericardial effusion: Concerning for malignant effusion. Consider echo to quantify size No signs of clinical tamponade although does have mild JVD on examination. (13) DVT prophylaxis: lovenox once daily daughter updated at bedside Subjective Patient seen and examined at the bedside. No acute event overnight. She is afebrile. She says she feels hungry and she wanted to try popsicle. Patient denies fever, chills, chest pain, shortness of breath, abdominal pain, frequency, urgency. Discussed with Dr. Hernández radiation oncology and he agreed to postpone the treatment for Sunday. Review of Systems Review of Systems: All systems reviewed & are unremarkable except as noted in HPI & below Constitutional: + fever, + chills, + fatigue, + anorexia and + weight loss Ear, Nose, Mouth, Throat: + nasal congestion; no sore throat and no dysphagia Gastrointestinal: + abdominal pain, + nausea, + vomiting and + diarrhea/loose stools; no blood in stools Genitourinary: + dysuria; no difficulty urinating and no hematuria Musculoskeletal: + joint pain; no back pain Endocrine: no diabetes Physical Exam Constitutional: WD/WN, vitals as above well developed and + obese Eyes: PERRL, conjunctivae normal, anicteric sclerae ENMT: external ear and nose normal, oropharynx normal Neck: trachea midline, no thyromegaly Respiratory: normal respiratory effort, lungs clear to auscultation Cardiovascular: RRR, no murmur, no edema Gastrointestinal (Abdomen): Abdomen mildly distended, mildly tender on palpation no guarding. Musculoskeletal: no cyanosis or clubbing, extremities motor strength 5/5 Skin: no rashes, warm and dry Neurologic: patellar DTR's 2+ bilat, sensation intact Psychiatric: A+Ox3, euthymic affect Lymphatic: no cervical or axillary lymphadenopathy Results & Data Vital Signs (Past 12 Hours) Vital Signs Temp Pulse Resp BP Pulse Ox 08/06/19 15:00 36.8 C 81 18 102/57 L 93 08/06/19 08:00 36.9 C 65 18 113/68 95 08/06/19 06:00 75 20 134/66 95 PG Care Time/CCT Total # of Minutes Spent Total Time Spent with Patient: Total time spent is greater than 50% in coordination of care (as documented) at patient's floor/unit and/or counseling patient: (1) Adenocarcinoma of lung, stage 4 Laterality: unspecified laterality Qualified Code(s): C34.90 - Malignant neoplasm of unspecified part of unspecified bronchus or lung (2) Pathological fracture of left hip Pathology associated with fracture: neoplastic disease Encounter type: sequela Qualified Code(s): M84.552S - Pathological fracture in neoplastic disease, left femur, sequela (3) Cigarette nicotine dependence Substance use status: uncomplicated Qualified Code(s): F17.210 - Nicotine dependence, cigarettes, uncomplicated (4) Hypothyroidism Hypothyroidism type: acquired Qualified Code(s): E03.9 - Hypothyroidism, unspecified (5) Gastroesophageal reflux disease Esophagitis presence: esophagitis presence not specified Qualified Code(s): K21.9 - Gastro-esophageal reflux disease without esophagitis (6) Anemia Anemia type: other cause Other causes of anemia: other cause, not classified Qualified Code(s): D64.89 - Other specified anemias
[2019-08-06] MEDS: ENOXAPARIN INJ 40 MG/0.4 ML SYR SQ SCH (20:35)
[2019-08-07] MEDS: D5NSS + 20MEQ KCL 20 MEQ/1,000 ML BAG IV SCH ×2 (02:03→17:58)
[2019-08-07] MEDS: PIPERACILLIN/TAZOBACTAM 3.375 GM in DEXTROSE 5% 100 ML IV SCH ×3 (02:11→17:59)
[2019-08-07] MEDS: ONDANSETRON INJ 2 MG/ML 2 ML VIAL IV PRN (05:43)
[2019-08-07] MEDS: MoRPHine SULFATE 2 MG/ML CARP IV PRN (05:47)
[2019-08-07] MEDS: LEVOTHYROXINE SODIUM 100 MCG TABLET PO SCH (05:49)
[2019-08-07 06:01] LABS: Basophils # (auto) 0.02 K/uL (0-0.2); Basophils % (auto) 0.2 %; Eosinophils # (auto) 0.24 K/uL (0-0.5); Eosinophils % (auto) 2.2 %; Hematocrit (blood only) 25.6 % (37-47); Immature Granulocytes # (auto) 0.05 K/uL (0.00-0.02); Immature Granulocytes % (auto) 0.5 %; Lymphocytes # (auto) 0.96 K/uL (1.2-3.4); Lymphocytes % (auto) 8.8 %; Mean Corpuscular Hemoglobin 28.4 pg (25-34); Mean Corpuscular Hgb Conc 31.3 g/dL (32-36); Mean Corpuscular Volume 90.8 fL (80-100); Mean Platelet Volume 8.8 fL (7.4-10.4); Monocytes # (auto) 1.07 K/uL (0.11-0.59); Monocytes % (auto) 9.8 %; Neutrophils # (auto) 8.57 K/uL (1.4-6.5); Neutrophils % (auto) 78.5 %; Platelet Count 287 K/uL (130-400); RDW Coefficient of Variation 14.5 % (11.5-14.5); RDW Standard Deviation 48.9 fL (36.4-46.3); Red Blood Count 2.82 M/uL (4.2-5.4); White Blood Count 10.91 K/uL (4.8-10.8)
[2019-08-07 06:26] LABS: Alanine Aminotransferase < 6 U/L (12-78); Aspartate Aminotransferase 6 U/L (15-37); BUN Creatinine Ratio 5.9 (10-20); Blood Urea Nitrogen 4 mg/dl (7-18); Calcium 8.2 mg/dl (8.5-10.1); Carbon Dioxide 25 mmol/L (21-32); Chloride 111 mmol/L (98-107); Creatinine Clr Calc Pharmacy 58.6 ml/min; Est GFR (African American) 97.8; Est GFR (Non-African American) 84.4; Glucose 99 mg/dl (70-99); Sodium 139 mmol/L (136-145)
[2019-08-07 06:28] LABS: Albumin Globulin Ratio 0.5 (0.9-2); Alkaline Phosphatase 55 U/L (45-117); Bilirubin,Total 0.2 mg/dl (0.2-1); Globulin 4.2 gm/dl (2.5-4.0); Total Protein 6.2 gm/dl (6.4-8.2)
[2019-08-07] MEDS: NICOTINE 7 MG/24 HR TDSY TD SCH (07:47)
[2019-08-07] MEDS: CITALOPRAM 40 MG TAB PO SCH (07:47)
[2019-08-07] MEDS: OXYCODONE/ACETAMINOPHEN 5mg/325mg TAB PO PRN ×2 (07:50→16:19)
[2019-08-07] MEDS: FOLIC ACID 1 MG in SYRINGE 9.8 ML IV SCH (08:07)
[2019-08-07] MEDS ORDERED: SODIUM CHLORIDE 0.9% 1000ML 1,000 ML IV SCH (18:00)
--- NOTE | 2019-08-07 18:05 | Hospitalist Progress Note ---
Date of Service August 07, 2019 Assessment & Plan (1) Sigmoid diverticulitis: Continue IV fluid hydration for sigmoid diverticulitis. Continue supportive management. Continue Zosyn that was started in the ER. Advance diet as tolerated. Patient started to tolerate GI soft. Switch IV meds to p.o. Postpone radiation therapy. To ensure no infectious colitis will send c.diff and stool culture-pending results. Blood cultures negative in 48 hours. She is also c/o dysuria - will send u/a and urine cx-not collected yet. (2) Adenocarcinoma of lung, stage 4: Dx 1 month ago. Presented with pathological left hip fracture. s/p ORIF. Bone bx c/w adenocarcinoma of lung origin. CTs with right lung nodule which is likely primary site. Seen by Dr Quintero at [facility]. Was to begin chemotherapy TOMORROW. She is already s/p XRT x 5 (of 10) treatments to the left hip. Was to have port placed by Dr Parker today. This was postponed. We postpone radiation therapy for Sunday depending on patient's status (3) Pathological fracture of left hip: s/p ORIF about 1 month ago. Incision well-healed. Minimal pain at this time. See above re: discussion about XRT. (4) Cigarette nicotine dependence: She has been attempting to quit. Nicoderm 7mg patch in meantime. (5) Hypothyroidism: TSH 08/01/19 wnl. Cont synthroid. (6) Gastroesophageal reflux disease: IV H2 sammy in darlene of PPI. (7) Essential hypertriglyceridemia: Hold gemfibrozil for now. (8) Hypomagnesemia: Improved (9) Anemia: Multifactorial - lung ca, blood loss from surgery for left hip, etc. Consider iron supplementation once able to take PO. CBC in am. H/H stable in comparison to 1 month ago. (10) Chronic kidney disease, stage 3a: Creatinine stable/at baseline. BMP am. (11) Severe protein-calorie malnutrition: Documented 6kg weight loss in 1 month. 2nd to stage 4 lung cancer. When allowed to eat again consider escort service attendant consult, MVI, boost, etc. (12) Pericardial effusion: Concerning for malignant effusion. Consider echo to quantify size No signs of clinical tamponade although does have mild JVD on examination. (13) DVT prophylaxis: lovenox once daily daughter updated at bedside Subjective Patient seen and examined at the bedside. No acute event overnight. She is afebrile. Patient says she had beach with cream this morning and she tolerated well. Plan to advance diet as tolerated to GI soft. Patient continues to have vague left lower quadrant pain. Patient denies fever, chills, chest pain, shortness of breath, abdominal pain, frequency, urgency. Discussed with Dr. Hernández radiation oncology and he agreed to postpone the treatment for Sunday. Review of Systems Constitutional: + fever, + chills, + fatigue, + anorexia and + weight loss Ear, Nose, Mouth, Throat: + nasal congestion; no sore throat and no dysphagia Gastrointestinal: + abdominal pain, + nausea, + vomiting and + diarrhea/loose stools; no blood in stools Genitourinary: + dysuria; no difficulty urinating and no hematuria Musculoskeletal: + joint pain; no back pain Endocrine: no diabetes Physical Exam Constitutional: WD/WN, vitals as above well developed and + obese Eyes: PERRL, conjunctivae normal, anicteric sclerae ENMT: external ear and nose normal, oropharynx normal Neck: trachea midline, no thyromegaly Respiratory: normal respiratory effort, lungs clear to auscultation Cardiovascular: RRR, no murmur, no edema Musculoskeletal: no cyanosis or clubbing, extremities motor strength 5/5 Skin: no rashes, warm and dry Neurologic: patellar DTR's 2+ bilat, sensation intact Psychiatric: A+Ox3, euthymic affect Lymphatic: no cervical or axillary lymphadenopathy Results & Data Vital Signs (Past 12 Hours) Vital Signs Temp Pulse Pulse Resp BP Pulse Ox 08/07/19 15:23 37.6 C H 70 18 97/58 L 96 08/07/19 11:23 36.6 C 64 16 94/54 L 95 08/07/19 07:38 36.9 C 89 89 32 H 131/67 85 L PG Care Time/CCT Total # of Minutes Spent Total Time Spent with Patient: Total time spent is greater than 50% in coordination of care (as documented) at patient's floor/unit and/or counseling patient: (1) Adenocarcinoma of lung, stage 4 Laterality: unspecified laterality Qualified Code(s): C34.90 - Malignant neoplasm of unspecified part of unspecified bronchus or lung (2) Pathological fracture of left hip Pathology associated with fracture: neoplastic disease Encounter type: sequela Qualified Code(s): M84.552S - Pathological fracture in neoplastic disease, left femur, sequela (3) Cigarette nicotine dependence Substance use status: uncomplicated Qualified Code(s): F17.210 - Nicotine dependence, cigarettes, uncomplicated (4) Hypothyroidism Hypothyroidism type: acquired Qualified Code(s): E03.9 - Hypothyroidism, unspecified (5) Gastroesophageal reflux disease Esophagitis presence: esophagitis presence not specified Qualified Code(s): K21.9 - Gastro-esophageal reflux disease without esophagitis (6) Anemia Anemia type: other cause Other causes of anemia: other cause, not classified Qualified Code(s): D64.89 - Other specified anemias
[2019-08-07] MEDS: ENOXAPARIN INJ 40 MG/0.4 ML SYR SQ SCH (21:04)
[2019-08-08] MEDS: PIPERACILLIN/TAZOBACTAM 3.375 GM in DEXTROSE 5% 100 ML IV SCH ×3 (02:00→18:04)
[2019-08-08] MEDS: LEVOTHYROXINE SODIUM 100 MCG TABLET PO SCH (05:33)
[2019-08-08] MEDS: OXYCODONE/ACETAMINOPHEN 5mg/325mg TAB PO PRN (05:34)
[2019-08-08 07:08] LABS: Basophils # (auto) 0.02 K/uL (0-0.2); Basophils % (auto) 0.2 %; Eosinophils # (auto) 0.22 K/uL (0-0.5); Eosinophils % (auto) 2.4 %; Hemoglobin 7.9 g/dL (12.0-16.0); Immature Granulocytes % (auto) 0.3 %; Lymphocytes # (auto) 0.74 K/uL (1.2-3.4); Lymphocytes % (auto) 8.1 %; Mean Corpuscular Hemoglobin 28.3 pg (25-34); Mean Corpuscular Hgb Conc 31.6 g/dL (32-36); Mean Corpuscular Volume 89.6 fL (80-100); Mean Platelet Volume 8.5 fL (7.4-10.4); Monocytes % (auto) 9.9 %; Neutrophils # (auto) 7.19 K/uL (1.4-6.5); Neutrophils % (auto) 79.1 %; Platelet Count 246 K/uL (130-400); RDW Coefficient of Variation 14.5 % (11.5-14.5); RDW Standard Deviation 47.7 fL (36.4-46.3); Red Blood Count 2.79 M/uL (4.2-5.4)
[2019-08-08 07:09] LABS: Immature Granulocytes # (auto) 0.03 K/uL (0.00-0.02)
[2019-08-08 07:43] LABS: RBC Morphology Unremarkable
[2019-08-08 07:56] LABS: Alanine Aminotransferase < 6 U/L (12-78); Aspartate Aminotransferase 7 U/L (15-37); Blood Urea Nitrogen 6 mg/dl (7-18); Calcium 8.6 mg/dl (8.5-10.1); Carbon Dioxide 22 mmol/L (21-32); Chloride 110 mmol/L (98-107); Creatinine Clr Calc Pharmacy 57.7 ml/min; Est GFR (African American) 97.3; Glucose 97 mg/dl (70-99); Potassium 3.5 mmol/L (3.5-5.1); Sodium 138 mmol/L (136-145)
[2019-08-08 07:58] LABS: Albumin Globulin Ratio 0.5 (0.9-2); Alkaline Phosphatase 54 U/L (45-117); Bilirubin,Total 0.2 mg/dl (0.2-1); Globulin 4.1 gm/dl (2.5-4.0); Total Protein 6.1 gm/dl (6.4-8.2)
[2019-08-08] MEDS: CITALOPRAM 40 MG TAB PO SCH (08:46)
[2019-08-08] MEDS: FOLIC ACID 1 MG in SYRINGE 9.8 ML IV SCH (08:47)
[2019-08-08] MEDS: NICOTINE 7 MG/24 HR TDSY TD SCH (08:48)
[2019-08-08] MEDS: PANTOprazole 40 MG TAB PO SCH (08:48)
[2019-08-08] MEDS: LACTOBACILLUS ACIDOPHILUS (FLORANEX) TAB PO SCH ×3 (11:19→20:01)
[2019-08-08] MEDS: NYSTATIN SUSP 500,000 U/5 ML UDC PO SCH ×3 (14:00→20:03)
--- NOTE | 2019-08-08 16:45 | Hospitalist Progress Note ---
Date of Service August 08, 2019 Assessment & Plan (1) Sigmoid diverticulitis: Continue IV fluid hydration for sigmoid diverticulitis. Plan to do serial abdominal x-rays since patient developed low-grade fever to ensure there is no bowel perforation. Continue supportive management. Continue Zosyn that was started in the ER. Postpone radiation therapy. To ensure no infectious colitis will send c.diff and stool culture-pending results. Blood cultures negative in 48 hours. She is also c/o dysuria - will send u/a and urine cx-not collected yet. (2) Adenocarcinoma of lung, stage 4: Dx 1 month ago. Presented with pathological left hip fracture. s/p ORIF. Bone bx c/w adenocarcinoma of lung origin. CTs with right lung nodule which is likely primary site. Seen by Dr Quintero at [facility]. Was to begin chemotherapy TOMORROW. She is already s/p XRT x 5 (of 10) treatments to the left hip. Was to have port placed by Dr Parker today. This was postponed. We postpone radiation therapy for Sunday depending on patient's status (3) Pathological fracture of left hip: s/p ORIF about 1 month ago. Incision well-healed. Minimal pain at this time. See above re: discussion about XRT. (4) Cigarette nicotine dependence: She has been attempting to quit. Nicoderm 7mg patch in meantime. (5) Hypothyroidism: TSH 08/01/19 wnl. Cont synthroid. (6) Gastroesophageal reflux disease: IV H2 sammy in darlene of PPI. (7) Essential hypertriglyceridemia: Hold gemfibrozil for now. (8) Hypomagnesemia: Improved (9) Anemia: Multifactorial - lung ca, blood loss from surgery for left hip, etc. Consider iron supplementation once able to take PO. CBC in am. H/H stable in comparison to 1 month ago. (10) Chronic kidney disease, stage 3a: Creatinine stable/at baseline. BMP am. (11) Severe protein-calorie malnutrition: Documented 6kg weight loss in 1 month. 2nd to stage 4 lung cancer. When allowed to eat again consider mold stacker consult, MVI, boost, etc. (12) Pericardial effusion: Concerning for malignant effusion. Consider echo to quantify size No signs of clinical tamponade although does have mild JVD on examination. (13) DVT prophylaxis: lovenox once daily daughter updated at bedside Subjective Patient seen and examined at the bedside. No acute event overnight. Patient is febrile today of 100.2 Fahrenheit. Patient tolerates food GI soft better. She reports having pain but moves her bowel. Patient continues to have vague left lower quadrant pain. Patient denies fever, chills, chest pain, shortness of [place] ath, abdominal pain, frequency, urgency. Discussed with Dr. Hernández radiation oncology and he agreed to postpone the treatment for Sunday. Review of Systems Constitutional: + fever, + chills, + fatigue, + anorexia and + weight loss Ear, Nose, Mouth, Throat: + nasal congestion; no sore throat and no dysphagia Gastrointestinal: + abdominal pain, + nausea, + vomiting and + diarrhea/loose stools; no blood in stools Genitourinary: + dysuria; no difficulty urinating and no hematuria Musculoskeletal: + joint pain; no back pain Endocrine: no diabetes Physical Exam Constitutional: WD/WN, vitals as above well developed and + obese Eyes: PERRL, conjunctivae normal, anicteric sclerae ENMT: external ear and nose normal, oropharynx normal Neck: trachea midline, no thyromegaly Respiratory: normal respiratory effort, lungs clear to auscultation Cardiovascular: RRR, no murmur, no edema Musculoskeletal: no cyanosis or clubbing, extremities motor strength 5/5 Skin: no rashes, warm and dry Neurologic: patellar DTR's 2+ bilat, sensation intact Psychiatric: A+Ox3, euthymic affect Lymphatic: no cervical or axillary lymphadenopathy Results & Data Vital Signs (Past 12 Hours) Vital Signs Temp Pulse Resp BP Pulse Ox 08/08/19 15:28 37.9 C H 68 18 116/67 96 08/08/19 11:13 36.4 C L 101 H 18 196/62 H 95 08/08/19 07:14 37.3 C 65 18 102/58 L 91 08/08/19 05:36 36.9 C 83 20 125/61 90 PG Care Time/CCT Total # of Minutes Spent Total Time Spent with Patient: Total time spent is greater than 50% in coordination of care (as documented) at patient's floor/unit and/or counseling patient: (1) Adenocarcinoma of lung, stage 4 Laterality: unspecified laterality Qualified Code(s): C34.90 - Malignant neoplasm of unspecified part of unspecified bronchus or lung (2) Anemia Anemia type: other cause Other causes of anemia: other cause, not classified Qualified Code(s): D64.89 - Other specified anemias (3) Hypothyroidism Hypothyroidism type: acquired Qualified Code(s): E03.9 - Hypothyroidism, unspecified (4) Cigarette nicotine dependence Substance use status: uncomplicated Qualified Code(s): F17.210 - Nicotine dependence, cigarettes, uncomplicated (5) Pathological fracture of left hip Encounter type: sequela Pathology associated with fracture: neoplastic disease Qualified Code(s): M84.552S - Pathological fracture in neoplastic disease, left femur, sequela (6) Gastroesophageal reflux disease Esophagitis presence: esophagitis presence not specified Qualified Code(s): K21.9 - Gastro-esophageal reflux disease without esophagitis
[2019-08-08] MEDS: ACETAMINOPHEN 325 MG TAB PO PRN (16:59)
--- NOTE | 2019-08-08 16:59 | XRay Report ---
XR abdomen min 2V CLINICAL HISTORY: 79 years-old Female presenting with diverticulitis. TECHNIQUE: Upright and supine views of the abdomen were obtained. COMPARISON: CT from 08/04/2019. FINDINGS: Nonobstructive bowel gas pattern. No gross pneumoperitoneum. Allowing for bowel gas and stool, no calcifications to suggest nephrolithiasis. Atherosclerotic calci fications. Osteopenia may be present. Total left hip arthroplasty. Minimal basilar opacities. No pleural effusio n or pneumothorax. IMPRESSION: 1. No free intraperitoneal gas. No bowel obstruction. 2. The inflammatory changes in the pelvic large bowel are not well appreciated on the current exam. Electronically signed by: Zion Harrington M.D. 08/08/2019 4:58 PM
[2019-08-08] MEDS ORDERED: POTASSIUM CHLORIDE 20 MEQ TABCR PO STA (17:03)
[2019-08-08] MEDS: ENOXAPARIN INJ 40 MG/0.4 ML SYR SQ SCH (20:02)
[2019-08-09] MEDS: PIPERACILLIN/TAZOBACTAM 3.375 GM in DEXTROSE 5% 100 ML IV SCH ×3 (01:46→17:34)
[2019-08-09] MEDS: MoRPHine SULFATE 2 MG/ML CARP IV PRN ×2 (05:52→14:59)
[2019-08-09] MEDS: LEVOTHYROXINE SODIUM 100 MCG TABLET PO SCH (05:55)
[2019-08-09 05:57] LABS: Basophils # (auto) 0.02 K/uL (0-0.2); Basophils % (auto) 0.2 %; Eosinophils % (auto) 2.2 %; Hematocrit (blood only) 24.9 % (37-47); Hemoglobin 7.9 g/dL (12.0-16.0); Immature Granulocytes # (auto) 0.02 K/uL (0.00-0.02); Immature Granulocytes % (auto) 0.2 %; Lymphocytes # (auto) 0.74 K/uL (1.2-3.4); Lymphocytes % (auto) 8.2 %; Mean Corpuscular Hemoglobin 27.9 pg (25-34); Mean Corpuscular Hgb Conc 31.7 g/dL (32-36); Mean Platelet Volume 8.5 fL (7.4-10.4); Monocytes # (auto) 1.03 K/uL (0.11-0.59); Monocytes % (auto) 11.5 %; Neutrophils # (auto) 6.96 K/uL (1.4-6.5); Neutrophils % (auto) 77.7 %; Platelet Count 268 K/uL (130-400); RDW Coefficient of Variation 14.3 % (11.5-14.5); RDW Standard Deviation 46.2 fL (36.4-46.3); Red Blood Count 2.83 M/uL (4.2-5.4); White Blood Count 8.97 K/uL (4.8-10.8)
[2019-08-09 06:18] LABS: RBC Morphology Unremarkable
[2019-08-09 06:32] LABS: Alanine Aminotransferase < 6 U/L (12-78); Albumin Level 2.1 gm/dl (3.4-5.0); Aspartate Aminotransferase 5 U/L (15-37); BUN Creatinine Ratio 10.6 (10-20); Blood Urea Nitrogen 7 mg/dl (7-18); Calcium 8.7 mg/dl (8.5-10.1); Carbon Dioxide 26 mmol/L (21-32); Chloride 108 mmol/L (98-107); Creatinine Clr Calc Pharmacy 63.2 ml/min; Est GFR (African American) 100.3; Est GFR (Non-African American) 86.5; Glucose 97 mg/dl (70-99); Potassium 3.8 mmol/L (3.5-5.1); Sodium 138 mmol/L (136-145)
[2019-08-09 06:34] LABS: Albumin Globulin Ratio 0.5 (0.9-2); Alkaline Phosphatase 54 U/L (45-117); Bilirubin,Total 0.2 mg/dl (0.2-1); Globulin 4.4 gm/dl (2.5-4.0); Total Protein 6.5 gm/dl (6.4-8.2)
[2019-08-09] MEDS ORDERED: SODIUM CHLORIDE 0.9% 250 ML IV PRN (07:23)
[2019-08-09] MEDS: LACTOBACILLUS ACIDOPHILUS (FLORANEX) TAB PO SCH ×4 (08:18→21:12)
[2019-08-09] MEDS: FOLIC ACID 1 MG in SYRINGE 9.8 ML IV SCH (08:19)
[2019-08-09] MEDS: CITALOPRAM 40 MG TAB PO SCH (08:19)
[2019-08-09] MEDS: PANTOprazole 40 MG TAB PO SCH (08:21)
[2019-08-09] MEDS: NYSTATIN SUSP 500,000 U/5 ML UDC PO SCH ×4 (08:21→21:12)
[2019-08-09] MEDS: NICOTINE 7 MG/24 HR TDSY TD SCH (08:22)
[2019-08-09] MEDS ORDERED: LORazepam 1 MG TAB ONE (09:01)
--- NOTE | 2019-08-09 13:43 | Hospitalist Progress Note ---
Date of Service August 09, 2019 Assessment & Plan (1) Symptomatic anemia: Severe anemia likely due to low red blood cell production by bone marrow due to ongoing metastatic lung cancer and radiation therapy. H&H today 7.9/24.9. On August 04 H&H was 9.9/30.4. Patient noticed shortness of breath. Discussed blood product and risk of having blood transfusion and patient understand that in her particular situation benefit of having blood transfusion outweighs any possible risk of blood-borne infection. Patient signed a consent for blood transfusion. We are going to give her 1 unit of blood recheck her CBC and if still low we are going to give her another unit of blood. Keep H&H above 8. Patient will possibly need another blood transfusion. Continue with enoxaparin. Fecal occult blood pending. Present on Admission?: Yes (2) Sigmoid diverticulitis: Continue IV fluid hydration for sigmoid diverticulitis. Plan to do serial abdominal x-rays since patient developed low-grade fever to ensure there is no bowel perforation. Continue supportive management. Continue Zosyn that was started in the ER. Postpone radiation therapy. To ensure no infectious colitis will send c.diff and stool culture-pending results. Blood cultures negative in 48 hours. She is also c/o dysuria - will send u/a and urine cx-not collected yet. Present on Admission?: Yes (3) Adenocarcinoma of lung, stage 4: Dx 1 month ago. Presented with pathological left hip fracture. s/p ORIF. Bone bx c/w adenocarcinoma of lung origin. CTs with right lung nodule which is likely primary site. Seen by Dr Quintero at [facility]. Was to begin chemotherapy TOMORROW. She is already s/p XRT x 5 (of 10) treatments to the left hip. Was to have port placed by Dr Parker today. This was postponed. We postpone radiation therapy for Sunday depending on patient's status (4) Pathological fracture of left hip: s/p ORIF about 1 month ago. Incision well-healed. Minimal pain at this time. See above re: discussion about XRT. (5) Cigarette nicotine dependence: She has been attempting to quit. Nicoderm 7mg patch in meantime. (6) Hypothyroidism: TSH 08/01/19 wnl. Cont synthroid. (7) Gastroesophageal reflux disease: IV H2 sammy in darlene of PPI. (8) Essential hypertriglyceridemia: Hold gemfibrozil for now. (9) Hypomagnesemia: Improved (10) Anemia: Multifactorial - lung ca, blood loss from surgery for left hip, etc. Consider iron supplementation once able to take PO. CBC in am. H/H stable in comparison to 1 month ago. (11) Chronic kidney disease, stage 3a: Creatinine stable/at baseline. BMP am. (12) Severe protein-calorie malnutrition: Documented 6kg weight loss in 1 month. 2nd to stage 4 lung cancer. When allowed to eat again consider human resources training manager consult, MVI, boost, etc. (13) Pericardial effusion: Concerning for malignant effusion. Consider echo to quantify size No signs of clinical tamponade although does have mild JVD on examination. (14) DVT prophylaxis: Hold Lovenox for now since patient has severe anemia until fecal occult blood negative. daughter updated at bedside Subjective Patient seen and examined at the bedside. No acute event overnight. Patient is afebrile. KUB repeated last night and did not show free intraperitoneal gas. No bowel obstruction. Inflammatory changes in the pelvic large bowel are not well appreciated on on that exam. Patient tolerates food GI soft better. Patient was noted to be pale today. Her H&H is slowly decreasing and today 7.9 patient. Patient denies any melena or hematochezia. Appears to be related to her current metastatic cancer recent chemotherapy and poor production of red blood cells by the more marrow. Patient denies fever, chills, chest pain, shortness of breath, abdominal pain, frequency, urgency. For now further radiation therapy postponed by Dr. Hernández due to acute and ongoing patient illness. Review of Systems Review of Systems: All systems reviewed & are unremarkable except as noted in HPI & below Physical Exam Constitutional: WD/WN, vitals as above well developed and + obese Eyes: PERRL, conjunctivae normal, anicteric sclerae ENMT: external ear and nose normal, oropharynx normal Neck: trachea midline, no thyromegaly Respiratory: normal respiratory effort, lungs clear to auscultation Cardiovascular: RRR, no murmur, no edema Musculoskeletal: no cyanosis or clubbing, extremities motor strength 5/5 Skin: no rashes, warm and dry Neurologic: patellar DTR's 2+ bilat, sensation intact Psychiatric: A+Ox3, euthymic affect Lymphatic: no cervical or axillary lymphadenopathy Results & Data Vital Signs (Past 12 Hours) Vital Signs Temp Pulse Pulse Resp BP BP Pulse Ox 08/09/19 11:53 37.7 C H 66 20 126/65 95 08/09/19 10:30 37 C 66 20 123/65 95 08/09/19 10:00 37.3 C 68 20 114/61 95 08/09/19 09:30 37.2 C 70 20 104/56 L 93 08/09/19 09:15 37.2 C 64 18 118/62 93 08/09/19 09:02 37.0 C 64 18 117/67 93 08/09/19 07:27 36.9 C 63 18 121/65 93 08/09/19 03:41 37.1 C 72 18 124/66 94 PG Care Time/CCT Total # of Minutes Spent Total Time Spent with Patient: Total time spent is greater than 50% in coordinat ion of care (as documented) at patient's floor/unit and/or counseling patient: (1) Adenocarcinoma of lung, stage 4 Laterality: unspecified laterality Qualified Code(s): C34.90 - Malignant neoplasm of unspecified part of unspecified bronchus or lung (2) Anemia Anemia type: other cause Other causes of anemia: other cause, not classified Qualified Code(s): D64.89 - Other specified anemias (3) Hypothyroidism Hypothyroidism type: acquired Qualified Code(s): E03.9 - Hypothyroidism, unspecified (4) Cigarette nicotine dependence Substance use status: uncomplicated Qualified Code(s): F17.210 - Nicotine dependence, cigarettes, uncomplicated (5) Pathological fracture of left hip Encounter type: sequela Pathology associated with fracture: neoplastic disease Qualified Code(s): M84.552S - Pathological fracture in neoplastic disease, left femur, sequela (6) Gastroesophageal reflux disease Esophagitis presence: esophagitis presence not specified Qualified Code(s): K21.9 - Gastro-esophageal reflux disease without esophagitis
[2019-08-09 14:05] LABS: Basophils # (auto) 0.02 K/uL (0-0.2); Basophils % (auto) 0.2 %; Eosinophils # (auto) 0.17 K/uL (0-0.5); Eosinophils % (auto) 1.5 %; Hematocrit (blood only) 26.8 % (37-47); Hemoglobin 8.8 g/dL (12.0-16.0); Immature Granulocytes # (auto) 0.04 K/uL (0.00-0.02); Immature Granulocytes % (auto) 0.4 %; Lymphocytes # (auto) 0.67 K/uL (1.2-3.4); Lymphocytes % (auto) 5.9 %; Mean Corpuscular Hemoglobin 28.7 pg (25-34); Mean Corpuscular Volume 87.3 fL (80-100); Mean Platelet Volume 8.7 fL (7.4-10.4); Monocytes # (auto) 1.13 K/uL (0.11-0.59); Monocytes % (auto) 9.9 %; Neutrophils # (auto) 9.37 K/uL (1.4-6.5); Neutrophils % (auto) 82.1 %; Platelet Count 241 K/uL (130-400); RDW Coefficient of Variation 14.5 % (11.5-14.5); RDW Standard Deviation 46.4 fL (36.4-46.3); Red Blood Count 3.07 M/uL (4.2-5.4)
[2019-08-09 14:29] LABS: Mean Corpuscular Hgb Conc 32.8 g/dL (32-36)
[2019-08-09] MEDS: ONDANSETRON INJ 2 MG/ML 2 ML VIAL IV PRN (15:06)
[2019-08-09] MEDS: ACETAMINOPHEN 325 MG TAB PO PRN (19:32)
[2019-08-10] MEDS: PIPERACILLIN/TAZOBACTAM 3.375 GM in DEXTROSE 5% 100 ML IV SCH ×3 (01:50→18:26)
[2019-08-10] MEDS: LEVOTHYROXINE SODIUM 100 MCG TABLET PO SCH (05:55)
[2019-08-10 06:03] LABS: Basophils # (auto) 0.02 K/uL (0-0.2); Basophils % (auto) 0.2 %; Eosinophils # (auto) 0.17 K/uL (0-0.5); Eosinophils % (auto) 1.8 %; Hemoglobin 8.7 g/dL (12.0-16.0); Immature Granulocytes # (auto) 0.03 K/uL (0.00-0.02); Immature Granulocytes % (auto) 0.3 %; Lymphocytes # (auto) 0.92 K/uL (1.2-3.4); Lymphocytes % (auto) 9.8 %; Mean Corpuscular Hgb Conc 32.2 g/dL (32-36); Mean Corpuscular Volume 86.8 fL (80-100); Mean Platelet Volume 8.5 fL (7.4-10.4); Monocytes # (auto) 0.94 K/uL (0.11-0.59); Neutrophils # (auto) 7.35 K/uL (1.4-6.5); Neutrophils % (auto) 77.9 %; Platelet Count 267 K/uL (130-400); RDW Coefficient of Variation 14.5 % (11.5-14.5); RDW Standard Deviation 46.3 fL (36.4-46.3); Red Blood Count 3.11 M/uL (4.2-5.4); White Blood Count 9.43 K/uL (4.8-10.8)
[2019-08-10] MEDS: MoRPHine SULFATE 2 MG/ML CARP IV PRN ×2 (06:18→21:11)
[2019-08-10 06:29] LABS: BUN Creatinine Ratio 11.1 (10-20); Calcium 8.6 mg/dl (8.5-10.1); Creatinine Clr Calc Pharmacy 63.2 ml/min; Est GFR (African American) 100.3; Est GFR (Non-African American) 86.5; Potassium 3.4 mmol/L (3.5-5.1)
[2019-08-10 06:32] LABS: Albumin Globulin Ratio 0.5 (0.9-2); Bilirubin,Total 0.3 mg/dl (0.2-1); Globulin 4.4 gm/dl (2.5-4.0); Total Protein 6.4 gm/dl (6.4-8.2)
[2019-08-10] MEDS: LACTOBACILLUS ACIDOPHILUS (FLORANEX) TAB PO SCH ×4 (08:27→20:32)
[2019-08-10] MEDS: FOLIC ACID 1 MG in SYRINGE 9.8 ML IV SCH (08:27)
[2019-08-10] MEDS: CITALOPRAM 40 MG TAB PO SCH (08:27)
[2019-08-10] MEDS: NICOTINE 7 MG/24 HR TDSY TD SCH (08:28)
[2019-08-10] MEDS: NYSTATIN SUSP 500,000 U/5 ML UDC PO SCH ×4 (08:28→20:32)
[2019-08-10] MEDS: PANTOprazole 40 MG TAB PO SCH (08:28)
[2019-08-10] MEDS ORDERED: POTASSIUM CHLORIDE 20 MEQ TABCR PO STA (12:16)
[2019-08-10] MEDS: ACETAMINOPHEN 325 MG TAB PO PRN (15:58)
--- NOTE | 2019-08-10 19:43 | Hospitalist Progress Note ---
Date of Service August 10, 2019 Assessment & Plan (1) Symptomatic anemia: Severe anemia likely due to low red blood cell production by bone marrow due to ongoing metastatic lung cancer and radiation therapy. H&H improved after 1 unit of blood and now is close to patient baseline 8.04/26 . I offered another unit of blood to patient but she refused, stating that she feels better now. (2) Sigmoid diverticulitis: Slowly improving. Patient now tolerates GI soft. She complained of vague abdominal pain today which improved later on. Consider discharging patient in the morning if condition remains the same and stable. Continue supportive management. Continue Zosyn that was started in the ER. Postpone radiation therapy. To ensure no infectious colitis will send c.diff and stool culture-pending results. Blood cultures negative in 48 hours. Patient is a full code Disposition home, most likely tomorrow if patient is still doing well. (3) Adenocarcinoma of lung, stage 4: Dx 1 month ago. Presented with pathological left hip fracture. s/p ORIF. Bone bx c/w adenocarcinoma of lung origin. CTs with right lung nodule which is likely primary site. Seen by Dr Quintero at [facility]. Was to begin chemotherapy TOMORROW. She is already s/p XRT x 5 (of 10) treatments to the left hip. Was to have port placed by Dr Parker but needed to be postponed due to this hospitalization. We postpone radiation therapy depending on patient's status (4) Pathological fracture of left hip: s/p ORIF about 1 month ago. Incision well-healed. Minimal pain at this time. See above re: discussion about XRT. (5) Cigarette nicotine dependence: She has been attempting to quit. Nicoderm 7mg patch in meantime. (6) Hypothyroidism: TSH 08/01/19 wnl. Cont synthroid. (7) Gastroesophageal reflux disease: IV H2 sammy in darlene of PPI. (8) Essential hypertriglyceridemia: Hold gemfibrozil for now. (9) Hypomagnesemia: Resolved (10) Anemia: Multifactorial - lung ca, blood loss from surgery for left hip, etc. Consider iron supplementation once able to take PO. H/H stab (11) Chronic kidney disease, stage 3a: Creatinine stable/at baseline. Avoid nephrotoxic agents. Monitor CR/GFR (12) Severe protein-calorie malnutrition: Documented 6kg weight loss in 1 month. 2nd to stage 4 lung cancer. When allowed to eat again consider pediatric speech therapist consult, MVI, boost, etc. (13) Pericardial effusion: Concerning for malignant effusion. Consider echo to quantify size No signs of clinical tamponade although does have mild JVD on examination. (14) DVT prophylaxis: Lovenox 40 mg sc daily. Daughter updated at bedside. Subjective Patient seen and examined at the bedside. Patient is slowly improving. She continues to complain of low-grade abdominal pain. Overall she feels better since she received 1 unit of blood yesterday. No acute event overnight. Patient is afebrile. Patient denies any melena or hematochezia. Stool for fecal occult blood negative x2. Appears to be related to her current metastatic cancer recent chemotherapy and poor production of red blood cells by the more marrow. Patient denies fever, chills, chest pain, shortness of breath, abdominal pain, frequency, urgency. For now further radiation therapy postponed by Dr. Hernández due to acute and ongoing patient illness. Review of Systems Review of Systems: All systems reviewed & are unremarkable except as noted in HPI & below Physical Exam Constitutional: WD/WN, vitals as above well developed and + obese Eyes: PERRL, conjunctivae normal, anicteric sclerae ENMT: external ear and nose normal, oropharynx normal Neck: trachea midline, no thyromegaly Respiratory: normal respiratory effort, lungs clear to auscultation Cardiovascular: RRR, no murmur, no edema Musculoskeletal: no cyanosis or clubbing, extremities motor strength 5/5 Skin: no rashes, warm and dry Neurologic: patellar DTR's 2+ bilat, sensation intact Psychiatric: A+Ox3, euthymic affect Lymphatic: no cervical or axillary lymphadenopathy Results & Data Vital Signs (Past 12 Hours) Vital Signs Temp Pulse Resp BP Pulse Ox 08/10/19 19:21 36.8 C 62 19 112/67 94 08/10/19 18:26 37.0 C 08/10/19 15:41 38.1 C H 63 21 114/65 94 08/10/19 11:24 36.6 C 63 18 91/48 L 98 PG Care Time/CCT Total # of Minutes Spent Total Time Spent with Patient: Total time spent is greater than 50% in coordination of care (as documented) at patient's floor/unit and/or counseling patient: (1) Adenocarcinoma of lung, stage 4 Laterality: unspecified laterality Qualified Code(s): C34.90 - Malignant neoplasm of unspecified part of unspecified bronchus or lung (2) Pathological fracture of left hip Pathology associated with fracture: neoplastic disease Encounter type: sequela Qualified Code(s): M84.552S - Pathological fracture in neoplastic disease, left femur, sequela (3) Cigarette nicotine dependence Substance use status: uncomplicated Qualified Code(s): F17.210 - Nicotine dependence, cigarettes, uncomplicated (4) Hypothyroidism Hypothyroidism type: acquired Qualified Code(s): E03.9 - Hypothyroidism, unspecified (5) Gastroesophageal reflux disease Esophagitis presence: esophagitis presence not specified Qualified Code(s): K21.9 - Gastro-esophageal reflux disease without esophagitis (6) Anemia Anemia type: other cause Other causes of anemia: other cause, not classified Qualified Code(s): D64.89 - Other specified anemias
[2019-08-10] MEDS: ENOXAPARIN INJ 40 MG/0.4 ML SYR SQ SCH (20:54)
[2019-08-11] MEDS: PIPERACILLIN/TAZOBACTAM 3.375 GM in DEXTROSE 5% 100 ML IV SCH ×3 (01:35→17:55)
[2019-08-11 06:16] LABS: Basophils # (auto) 0.05 K/uL (0-0.2); Basophils % (auto) 0.7 %; Eosinophils # (auto) 0.21 K/uL (0-0.5); Eosinophils % (auto) 2.9 %; Hematocrit (blood only) 26.4 % (37-47); Hemoglobin 8.4 g/dL (12.0-16.0); Immature Granulocytes # (auto) 0.04 K/uL (0.00-0.02); Immature Granulocytes % (auto) 0.5 %; Mean Corpuscular Hgb Conc 31.8 g/dL (32-36); Mean Platelet Volume 8.5 fL (7.4-10.4); Monocytes # (auto) 0.85 K/uL (0.11-0.59); Monocytes % (auto) 11.7 %; Neutrophils # (auto) 5.33 K/uL (1.4-6.5); Neutrophils % (auto) 73.2 %; Platelet Count 258 K/uL (130-400); RDW Coefficient of Variation 14.5 % (11.5-14.5); RDW Standard Deviation 47.2 fL (36.4-46.3); White Blood Count 7.28 K/uL (4.8-10.8)
[2019-08-11] MEDS: LEVOTHYROXINE SODIUM 100 MCG TABLET PO SCH (06:16)
[2019-08-11 06:54] LABS: Alanine Aminotransferase < 6 U/L (12-78); Aspartate Aminotransferase 6 U/L (15-37); BUN Creatinine Ratio 12.8 (10-20); Blood Urea Nitrogen 8 mg/dl (7-18); Calcium 8.5 mg/dl (8.5-10.1); Carbon Dioxide 29 mmol/L (21-32); Chloride 105 mmol/L (98-107); Creatinine Clr Calc Pharmacy 59.4 ml/min; Est GFR (African American) 98.3; Est GFR (Non-African American) 84.8; Glucose 97 mg/dl (70-99); Potassium 3.6 mmol/L (3.5-5.1); Sodium 138 mmol/L (136-145)
[2019-08-11 06:56] LABS: Albumin Globulin Ratio 0.5 (0.9-2); Alkaline Phosphatase 56 U/L (45-117); Bilirubin,Total 0.2 mg/dl (0.2-1); Globulin 4.4 gm/dl (2.5-4.0); Total Protein 6.4 gm/dl (6.4-8.2)
[2019-08-11] MEDS: MoRPHine SULFATE 2 MG/ML CARP IV PRN ×2 (07:38→13:31)
[2019-08-11] MEDS: CITALOPRAM 40 MG TAB PO SCH (08:48)
[2019-08-11] MEDS: FOLIC ACID 1 MG in SYRINGE 9.8 ML IV SCH (08:48)
[2019-08-11] MEDS: LACTOBACILLUS ACIDOPHILUS (FLORANEX) TAB PO SCH ×4 (08:48→20:40)
[2019-08-11] MEDS: PANTOprazole 40 MG TAB PO SCH (08:49)
[2019-08-11] MEDS: NYSTATIN SUSP 500,000 U/5 ML UDC PO SCH ×4 (08:49→20:41)
[2019-08-11] MEDS: NICOTINE 7 MG/24 HR TDSY TD SCH (09:41)
[2019-08-11] MEDS ORDERED: OXYCODONE HCL IR 5 MG TAB (IMMEDIATE RELEASE) PO PRN (14:47)
--- NOTE | 2019-08-11 20:14 | Hospitalist Progress Note ---
Date of Service August 11, 2019 Assessment & Plan (1) Sigmoid diverticulitis: Worsening abdominal pain today after eating. Unable to take metronidazole and possible failure of augmentin outpatient treatment therefore not left with a good oral alternative. Will therefore continue on Zosyn while she remains here. Possible radiation induced colitis on top of prior infection given area affected, although I am unclear whether the doses she was getting and since it was non-pelvic whether this is a possibility. Will contact radiation/onc to postpone further treatment and seek further advice. Postpone radiation therapy. Stool and blood cultures negative (2) Symptomatic anemia: Symptomatic normocytic anemia due to low red blood cell production by bone marrow due to ongoing metastatic lung cancer and radiation therapy. Will continue to monitor CBC. Fecal occult blood negative. (3) Adenocarcinoma of lung, stage 4: Dx 1 month ago. Presented with pathological left hip fracture s/p ORIF. Bone bx c/w adenocarcinoma of lung origin. CTs with right lung nodule which is likely primary site. Under Dr Quintero She is already s/p XRT x 5 (of 10) treatments to the left hip. Was to have port placed by Dr Parker but needed to be postponed due to this hospitalization. (4) Pathological fracture of left hip: s/p ORIF about 1 month ago. Incision well-healed (5) Cigarette nicotine dependence: She has been attempting to quit. Continue Nicoderm 7mg patch (pt currently refusing) (6) Hypothyroidism: TSH 08/01/19 wnl. Cont synthroid. (7) Gastroesophageal reflux disease: Continue pantoprazole 40mg PO daily (8) Essential hypertriglyceridemia: Hold gemfibrozil (known side effect of dyspepsia) (9) Hypomagnesemia: Will repeat level in AM and replete as necessary. (10) Chronic kidney disease, stage 3a: Creatinine stable/at baseline. Avoid nephrotoxic agents. Monitor CR/GFR (11) Severe protein-calorie malnutrition: Documented 6kg weight loss in 1 month. 2nd to stage 4 lung cancer. Appreciate nutrition r/v on 08/07. (12) Pericardial effusion: Small - probably malignant effusion on echo (13) DVT prophylaxis: Lovenox 40 mg sc daily Subjective Patient felt she was slowly improving until eating a more substantial meal today and abdominal pain returned. She hasn't been out of bed much and feels this may make her feel better. She denies any nausea or vomiting. Passing lots of gas. BM today "in layers" but not watery. Review of Systems Review of Systems: All systems reviewed & are unremarkable except as noted in HPI & below Constitutional: + fatigue; no fever, no chills and no sweats Physical Exam Constitutional: well developed and + thin; no acute distress and no altered mental status Eyes: PERRL, conjunctivae normal, anicteric sclerae ENMT: external ear and nose normal, oropharynx normal Neck: trachea midline, no thyromegaly Respiratory: normal respiratory effort, lungs clear to auscultation Cardiovascular: RRR, no murmur, no edema Gastrointestinal (Abdomen): Inspection/Auscultation: normal bowel sounds; abdomen not distended Percussion/Palpation: + abdomen tender (Generalized, mostly lower abdominal) and abdomen soft; no guarding and abdomen not rigid Musculoskeletal: no cyanosis or clubbing, extremities motor strength 5/5 Extremities: + clubbing (fingernails) Skin: no rashes, warm and dry no lesions Neurologic: moves all extremities and awake; no focal motor deficits and not confused Psychiatric: A+Ox3, euthymic affect Results & Data Vital Signs (Past 12 Hours) Vital Signs Temp Pulse Resp BP Pulse Ox 08/11/19 19:19 98.8 F 70 18 121/71 91 08/11/19 15:00 99.1 F 68 20 106/59 L 92 08/11/19 11:25 98.4 F 66 18 111/55 L 91 PG Care Time/CCT Total # of Minutes Spent Total Time Spent with Patient: Total time spent is greater than 50% in coordination of care (as documented) at patient's floor/unit and/or counseling patient: (1) Adenocarcinoma of lung, stage 4 Laterality: unspecified laterality Qualified Code(s): C34.90 - Malignant neoplasm of unspecified part of unspecified bronchus or lung (2) Hypothyroidism Hypothyroidism type: acquired Qualified Code(s): E03.9 - Hypothyroidism, unspecified (3) Cigarette nicotine dependence Substance use status: uncomplicated Qualified Code(s): F17.210 - Nicotine d ependence, cigarettes, uncomplicated (4) Pathological fracture of left hip Encounter type: sequela Pathology associated with fracture: neoplastic disease Qualified Code(s): M84.552S - Pathological fracture in neoplastic dis ease, left femur, sequela (5) Gastroesophageal reflux disease Esophagitis presence: esophagitis presence not specified Qualified Code(s): K21.9 - Gastro-esophageal reflux disease without esophagitis
[2019-08-11] MEDS: ENOXAPARIN INJ 40 MG/0.4 ML SYR SQ SCH (20:41)
[2019-08-12] MEDS: PIPERACILLIN/TAZOBACTAM 3.375 GM in DEXTROSE 5% 100 ML IV SCH ×3 (01:36→18:09)
[2019-08-12] MEDS: LEVOTHYROXINE SODIUM 100 MCG TABLET PO SCH (05:55)
[2019-08-12 05:57] LABS: Hematocrit (blood only) 27.4 % (37-47); Hemoglobin 8.9 g/dL (12.0-16.0); Mean Corpuscular Hemoglobin 28.3 pg (25-34); Mean Corpuscular Hgb Conc 32.5 g/dL (32-36); Mean Platelet Volume 8.2 fL (7.4-10.4); Platelet Count 263 K/uL (130-400); RDW Coefficient of Variation 14.6 % (11.5-14.5); RDW Standard Deviation 46.5 fL (36.4-46.3); Red Blood Count 3.15 M/uL (4.2-5.4); White Blood Count 8.78 K/uL (4.8-10.8)
[2019-08-12 06:26] LABS: Alanine Aminotransferase < 6 U/L (12-78); Albumin Level 2.1 gm/dl (3.4-5.0); Aspartate Aminotransferase 7 U/L (15-37); BUN Creatinine Ratio 9.3 (10-20); Blood Urea Nitrogen 6 mg/dl (7-18); Calcium 8.9 mg/dl (8.5-10.1); Carbon Dioxide 29 mmol/L (21-32); Chloride 103 mmol/L (98-107); Creatinine Clr Calc Pharmacy 58.6 ml/min; Est GFR (African American) 97.8; Est GFR (Non-African American) 84.4; Glucose 102 mg/dl (70-99); Magnesium 1.5 mg/dl (1.8-2.4); Potassium 3.2 mmol/L (3.5-5.1); Sodium 138 mmol/L (136-145)
[2019-08-12 06:29] LABS: Albumin Globulin Ratio 0.5 (0.9-2); Alkaline Phosphatase 55 U/L (45-117); Bilirubin,Total 0.2 mg/dl (0.2-1); Globulin 4.5 gm/dl (2.5-4.0); Total Protein 6.6 gm/dl (6.4-8.2)
[2019-08-12] MEDS: NYSTATIN SUSP 500,000 U/5 ML UDC PO SCH ×4 (07:45→20:12)
[2019-08-12] MEDS: PANTOprazole 40 MG TAB PO SCH (07:47)
[2019-08-12] MEDS: CITALOPRAM 40 MG TAB PO SCH (07:48)
[2019-08-12] MEDS: NICOTINE 7 MG/24 HR TDSY TD SCH (07:48)
[2019-08-12] MEDS: LACTOBACILLUS ACIDOPHILUS (FLORANEX) TAB PO SCH ×4 (07:48→20:12)
[2019-08-12] MEDS: OXYCODONE HCL IR 5 MG TAB (IMMEDIATE RELEASE) PO PRN (08:40)
[2019-08-12] MEDS: MAGNESIUM OXIDE 400 MG TAB PO SCH ×2 (08:40→20:12)
[2019-08-12] MEDS: FOLIC ACID 1 MG in SYRINGE 9.8 ML IV SCH (10:00)
[2019-08-12] MEDS: MAGNESIUM SULFATE / D5W 1 GM/100 ML BAG IV SCH ×2 (10:00→11:03)
[2019-08-12] MEDS: POTASSIUM CHLORIDE / WTR 10 MEQ/100 ML PLCT IV SCH ×2 (10:00→11:04)
--- NOTE | 2019-08-12 11:24 | Hospitalist Progress Note ---
Date of Service August 12, 2019 Assessment & Plan (1) Sigmoid diverticulitis: Improving but very slowly. Discussed with Dr Hernández and radiation possible exacerbated underlying infection but thought not likely. Will consult gastroenterology to determine whether any further work-up is required and length of time recommended prior to restarting her radiation treatment. Failure of outpatient Augmentin and unable to take metronidazole therefore limited to IV antibiotics at this stage. Will continue on Zosyn while she remains inpatient, currently day 8. If felt she needs a 14 day course to complete she may be able to switch to ertapenem with a line placed to come back to the medical treatment unit. Stool and blood cultures negative (2) Symptomatic anemia: Now resolved. Symptomatic normocytic anemia due to low red blood cell production by bone marrow due to ongoing metastatic lung cancer and radiation therapy. Status post 1 unit packed red blood cell transfusion. Will continue to monitor CBC. Fecal occult blood negative. (3) Adenocarcinoma of lung, stage 4: Dx 1 month ago. Presented with pathological left hip fracture s/p ORIF. Bone bx c/w adenocarcinoma of lung origin. CTs with right lung nodule which is likely primary site. Under Dr Quintero She is already s/p XRT x 5 (of 10) treatments to the left hip. Was to have port placed by Dr Parker but needed to be postponed due to this hospitalization. (4) Pathological fracture of left hip: s/p ORIF about 1 month ago. Incision well-healed (5) Cigarette nicotine dependence: She has been attempting to quit. Continue Nicoderm 7mg patch (pt currently refusing) (6) Hypothyroidism: TSH 08/01/19 wnl. Cont synthroid. (7) Gastroesophageal reflux disease: Continue pantoprazole 40mg PO daily (8) Essential hypertriglyceridemia: Hold gemfibrozil (known side effect of dyspepsia) (9) Hypomagnesemia: Mg 1.5. Replete with IV and PO supplementation (10) Chronic kidney disease, stage 3a: Creatinine stable/at baseline. Avoid nephrotoxic agents. Monitor CR/GFR (11) Severe protein-calorie malnutrition: Documented 6kg weight loss in 1 month. 2nd to stage 4 lung cancer. Appreciate nutrition r/v on 08/07, will re-order Boost drinks (12) Pericardial effusion: Small - probably malignant effusion on echo (13) DVT prophylaxis: Continue Lovenox 40 mg sc daily Subjective Feels improved today compared to yesterday. Although she has really had very slow improvement in her symptoms. She is up and mobile at her baseline with physical therapy. Stool remains "in layers". She denies any nausea or vomiting. Abdominal pain still present but much improved from yesterday. Discussed over the phone with Dr Hernández regarding radiation treatment whether suspected to have a significant impact on inflammation or worsening of infection if given at the same time and since she only had 5 doses of radiation to the hip of no substantial doses given recommended potentially getting GI consult given recurrence and need for ongoing planned radiation in future. Review of Systems Review of Systems: All systems reviewed & are unremarkable except as noted in HPI & below Physical Exam Constitutional: well developed and + thin; no acute distress and no altered mental status Eyes: + anicteric sclerae; normal pupil size ENMT: external ear and nose normal, oropharynx normal Neck: normal visual inspection and trachea midline Respiratory: normal respiratory effort, lungs clear to auscultation Cardiovascular: RRR, no murmur, no edema Gastrointestinal (Abdomen): Inspection/Auscultation: normal bowel sounds; abdomen not distended Percussion/Palpation: + abdomen tender (Generalized, mostly lower abdominal, improved from previous days) and abdomen soft; no guarding and abdomen not rigid Musculoskeletal: no cyanosis or clubbing, extremities motor strength 5/5 Extremities: + clubbing (fingernails) Skin: no rashes, warm and dry Neurologic: moves all extremities and awake; no focal motor deficits and not confused Motor/Sensory: no sensory deficit Psychiatric: A+Ox3, euthymic affect Results & Data Vital Signs (Past 12 Hours) Vital Signs Temp Pulse Resp BP Pulse Ox 08/12/19 07:45 98.2 F 58 L 20 146/72 H 96 08/12/19 04:58 98.2 F 74 19 134/72 92 PG Care Time/CCT Total # of Minutes Spent Total Time Spent with Patient: Total time spent is greater than 50% in coordination of care (as documented) at patient's floor/unit and/or counseling patient: (1) Adenocarcinoma of lung, stage 4 Laterality: unspecified laterality Qualified Code(s): C34.90 - Malignant neoplasm of unspecified part of unspecified bronchus or lung (2) Hypothyroidism Hypothyroidism type: acquired Qualified Code(s): E03.9 - Hypothyroidism, unspecified (3) Cigarette nicotine dependence Substance use status: uncomplicated Qualified Code(s): F17.210 - Nicotine dependence, cigarettes, uncomplicated (4) Pathological fracture of left hip Encounter type: sequela Pathology associated with fracture: neoplastic disease Qualified Code(s): M84.552S - Pathological fracture in neoplastic disease, left femur, sequela (5) Gastroesophageal reflux disease Esophagitis presence: esophagitis presence not specified Qualified Code(s): K21.9 - Gastro-esophageal reflux disease without esophagitis
[2019-08-12] MEDS: ENOXAPARIN INJ 40 MG/0.4 ML SYR SQ SCH (20:12)
[2019-08-13] MEDS: PIPERACILLIN/TAZOBACTAM 3.375 GM in DEXTROSE 5% 100 ML IV SCH ×2 (01:53→09:02)
[2019-08-13] MEDS: ONDANSETRON INJ 2 MG/ML 2 ML VIAL IV PRN (05:01)
[2019-08-13 06:08] LABS: Hematocrit (blood only) 26.5 % (37-47); Hemoglobin 8.4 g/dL (12.0-16.0); Mean Corpuscular Hemoglobin 27.7 pg (25-34); Mean Corpuscular Hgb Conc 31.7 g/dL (32-36); Mean Corpuscular Volume 87.5 fL (80-100); Mean Platelet Volume 8.6 fL (7.4-10.4); Platelet Count 266 K/uL (130-400); RDW Coefficient of Variation 14.7 % (11.5-14.5); RDW Standard Deviation 46.8 fL (36.4-46.3); Red Blood Count 3.03 M/uL (4.2-5.4); White Blood Count 8.46 K/uL (4.8-10.8)
[2019-08-13] MEDS: LEVOTHYROXINE SODIUM 100 MCG TABLET PO SCH (06:11)
[2019-08-13 06:16] LABS: INR 1.2 (0.9-1.1); Prothrombin Time 12.1 Seconds (9.0-12.0)
[2019-08-13 06:24] LABS: Alanine Aminotransferase < 6 U/L (12-78); Albumin Level 2.1 gm/dl (3.4-5.0); Aspartate Aminotransferase 7 U/L (15-37); BUN Creatinine Ratio 11.6 (10-20); Blood Urea Nitrogen 8 mg/dl (7-18); Calcium 8.6 mg/dl (8.5-10.1); Carbon Dioxide 28 mmol/L (21-32); Chloride 104 mmol/L (98-107); Creatinine Clr Calc Pharmacy 61.3 ml/min; Est GFR (African American) 99.3; Est GFR (Non-African American) 85.6; Glucose 95 mg/dl (70-99); Potassium 3.4 mmol/L (3.5-5.1); Sodium 137 mmol/L (136-145)
[2019-08-13 06:27] LABS: Albumin Globulin Ratio 0.5 (0.9-2); Alkaline Phosphatase 58 U/L (45-117); Bilirubin,Total 0.2 mg/dl (0.2-1); Globulin 4.5 gm/dl (2.5-4.0); Phosphorus 3.3 mg/dl (2.5-4.9); Total Protein 6.6 gm/dl (6.4-8.2)
[2019-08-13] MEDS: MAGNESIUM OXIDE 400 MG TAB PO SCH ×2 (08:08→21:54)
[2019-08-13] MEDS: PANTOprazole 40 MG TAB PO SCH (08:08)
[2019-08-13] MEDS: CITALOPRAM 40 MG TAB PO SCH (08:08)
[2019-08-13] MEDS: NYSTATIN SUSP 500,000 U/5 ML UDC PO SCH ×4 (08:08→21:54)
[2019-08-13] MEDS: NICOTINE 7 MG/24 HR TDSY TD SCH (08:09)
[2019-08-13] MEDS: LACTOBACILLUS ACIDOPHILUS (FLORANEX) TAB PO SCH ×4 (08:09→21:53)
[2019-08-13] MEDS: FOLIC ACID 1 MG in SYRINGE 9.8 ML IV SCH (09:02)
--- NOTE | 2019-08-13 15:29 | Hospitalist Progress Note ---
Date of Service August 13, 2019 Assessment & Plan (1) Sigmoid diverticulitis: Improving but very slowly. Discussed with Dr Hernández and radiation possible exacerbated underlying infection but thought not likely. Will consult gastroenterology to determine whether any further work-up is required and length of time recommended prior to restarting her radiation treatment. Failure of outpatient Augmentin and unable to take metronidazole therefore limited to IV antibiotics at this stage. Will continue on Zosyn while she remains inpatient, currently day 8. If felt she needs a 14 day course to complete she may be able to switch to ertapenem with a line placed to come back to the medical treatment unit. Stool and blood cultures negative (2) Symptomatic anemia: Now resolved. Symptomatic normocytic anemia due to low red blood cell production by bone marrow due to ongoing metastatic lung cancer and radiation therapy. Status post 1 unit packed red blood cell transfusion. Will continue to monitor CBC. Fecal occult blood negative. (3) Adenocarcinoma of lung, stage 4: Dx 1 month ago. Presented with pathological left hip fracture s/p ORIF. Bone bx c/w adenocarcinoma of lung origin. CTs with right lung nodule which is likely primary site. Under Dr Quintero She is already s/p XRT x 5 (of 10) treatments to the left hip. Was to have port placed by Dr Parker but needed to be postponed due to this hospitalization. (4) Pathological fracture of left hip: s/p ORIF about 1 month ago. Incision well-healed (5) Cigarette nicotine dependence: She has been attempting to quit. Continue Nicoderm 7mg patch (pt currently refusing) (6) Hypothyroidism: TSH 08/01/19 wnl. Cont synthroid. (7) Gastroesophageal reflux disease: Continue pantoprazole 40mg PO daily (8) Essential hypertriglyceridemia: Hold gemfibrozil (known side effect of dyspepsia) (9) Hypomagnesemia: Mg 1.5. Replete with IV and PO supplementation (10) Chronic kidney disease, stage 3a: Creatinine stable/at baseline. Avoid nephrotoxic agents. Monitor CR/GFR (11) Severe protein-calorie malnutrition: Documented 6kg weight loss in 1 month. 2nd to stage 4 lung cancer. Appreciate nutrition r/v on 08/07, will re-order Boost drinks (12) Pericardial effusion: Small - probably malignant effusion on echo (13) DVT prophylaxis: Continue Lovenox 40 mg sc daily Results & Data Vital Signs (Past 12 Hours) Vital Signs Temp Pulse Resp BP Pulse Ox 08/13/19 15:17 97.9 F 63 18 95/55 L 94 08/13/19 10:59 98.2 F 63 18 106/61 93 08/13/19 07:31 98.1 F 61 18 107/57 L 91 08/13/19 03:56 98.2 F 64 18 128/66 93 PG Care Time/CCT Total # of Minutes Spent Total Time Spent with Patient: Total time spent is greater than 50% in coordination of care (as documented) at patient's floor/unit and/or counseling patient: (1) Adenocarcinoma of lung, stage 4 Laterality: unspecified laterality Qualified Code(s): C34.90 - Malignant neoplasm of unspecified part of unspecified bronchus or lung (2) Pathological fracture of left hip Pathology associated with fracture: neoplastic disease Encounter type: sequela Qualified Code(s): M84.552S - Pathological fracture in neoplastic disease, left femur, sequela (3) Cigarette nicotine dependence Substance use status: uncomplicated Qualified Code(s): F17.210 - Nicotine dependence, cigarettes, uncomplicated (4) Hypothyroidism Hypothyroidism type: acquired Qualified Code(s): E03.9 - Hypothyroidism, unspecified (5) Gastroesophageal reflux disease Esophagitis presence: esophagitis presence not specified Qualified Code(s): K21.9 - Gastro-esophageal reflux disease without esophagitis
--- NOTE | 2019-08-13 15:39 | Gastrointestinal Consultation ---
Date of Consultation August 13, 2019 Assessment & Plan (1) Sigmoid diverticulitis: Discussed plan of care with Dr. Kennedy and Dr. Madrid and plan is as follows: 1. Complete a 14 day course of IV antibiotics. 2. Continue low fiber diet. 3. Would wait at least 5 days after completion of antibiotic treatment prior to resuming radiation therapy. 4. Continue supportive care. Supervising Physician Co-Signing Physician Notes Agree with KAYY Ramirez Abd: Soft, NT, ND, +BS Continue current therapy Discussed plan with primary team History of Present Illness Reason for Consultation: Sigmoid diverticulitis Requesting Physician: Dr. Madrid Attending Physician: Jayy Madrid MD History of Present Illness Patient is a pleasant 79 year-old female with a history of acute diverticulitis x2 in the past recently diagnosed with acute sigmoid diverticulitis which was treated with oral Augmentin as an outpatient. Unfortunately, she reports that she did not clinically improve with this medication and states her pain worsened after receiving left hip radiation for her history of lung CA with bony mets. She has been admitted to the hospital for IV antibiotics. Per Dr. Madrid, she has completed 9 days of IV treatment and is currently on Zosyn. Patient has improved clinically and is in consideration for discharge with continuation of IV Ertapenem on an outpatient basis. GI has been consulted in regard to timing of resuming the radiation treatments by Dr. Hernández. Currently, she rates her abdominal pain as 0/10. No bloody, mucoid, loose or watery stools. Mild nausea earlier which she associates with a headache. No vomiting, fevers/chills or dietary intolerance. Allergies Allergy/AdvReac Type Severity Reaction Status Date / Time clarithromycin AdvReac Mild N/V Verified 08/04/19 08:07 codeine AdvReac Mild UPSET Verified 08/04/19 08:07 STOMACH hydrocodone AdvReac Mild N/V Verified 08/04/19 08:07 metronidazole [From Flagyl] AdvReac Mild Gastrointestinal Verified 08/04/19 08:07 Upset venlafaxine AdvReac Mild N/V Verified 08/04/19 08:07 Home Medications Home Medications Medication Instructions Recorded Confirmed Type calcium carbonate 600 mg calcium 600 mg PO BID tab 04/11/19 08/04/19 History (1,500 mg) tablet citalopram 40 mg tablet 60 mg PO QAM #135 tab 04/11/19 08/04/19 History cyanocobalamin (vitamin B-12) 1,000 mcg PO QAM tab 04/11/19 08/04/19 History 1,000 mcg tablet gemfibrozil 600 mg tablet 600 mg PO BID #180 tab 04/11/19 08/04/19 History levothyroxine 100 mcg tablet 100 mcg PO QAM #90 tab 04/11/19 08/04/19 History omega-3 acid ethyl esters 1 cap PO QAM 06/30/19 08/04/19 History pantoprazole 40 mg tablet,delayed 40 mg PO QAM #90 tab 07/17/19 08/04/19 Rx release oxycodone 5 mg tablet 5 mg PO Q8H PRN #90 tab 07/25/19 08/04/19 Rx acetaminophen [Acetaminophen Extra 1,000 mg PO Q8H PRN 07/30/19 08/04/19 History Strength] folic acid 1 mg PO QAM 08/04/19 08/04/19 History Patient History Medical History Adenocarcinoma, lung Arthritis Depression (Acute) Gastroesophageal reflux disease (Acute) History of bronchitis History of diverticulitis Hyperlipidemia Hypothyroidism (Acute) Irritable bowel syndrome (Acute) Lung cancer NEW DX Osteoarthritis Surgical History History of cataract surgery RT/LEFT History of colonoscopy History of dilatation and curettage History of discectomy CERVICAL (GOOD ROM) History of repair of rotator cuff RT History of tooth extraction S/P section X 1 S/P hip replacement left. 07/02/2019. SAB with MAC. no issues. Family History Family/Other Family history of diabetes mellitus Brother Family hx of colon cancer Mother , age 66 Diabetes Cancer ovarian Coronary heart disease had acute [place] which led to her Sister Cancer Family/Other Breast cancer Father , age 49 Suicide Alcoholism Social History Preferred Language: Bengali Communication Ability: Effective Visual Impairment: No Limitations Hearing Ability: Normal Short Order Fry Cook Required: No Beliefs That Will Affect Care: None marital status: Current Living Situation: Alone current occupational status: retired current occupation: worked at [employer]) other: 1 daughter Feels Safe at Home: Yes Smoking Status: Current every day smoker (MINIMUM 50 PACK YEAR HISTORY) Tobacco Type: cigarettes ; Age Started Using Tobacco: 21 ; packs per day: 0.5 ; Cigarettes Per Day: 5 ; Second Hand Exposure: No ; Hx Alcohol Use: No Hx Substance Use: No Childhood Exposure to Second-Hand Smoke: Yes (both parents) caffeine: Yes Dental Care, Regularly: No Seatbelt Use: always Review of Systems Constitutional: as per Subjective / HPI Eyes: no problem reported Ear, Nose, Mouth, Throat: no problem reported Respiratory: no cough and no dyspnea Cardiovascular: no chest pain and no palpitations Gastrointestinal: as per Subjective / HPI Genitourinary: no problem reported Musculoskeletal: + joint pain Integumentary: no problem reported Neurologic: no problem reported Psychiatric: no problem reported Physical Exam Constitutional: WD/WN, vitals as above Eyes: EOM intact bilaterally Neck: normal appearance Respiratory: normal respiratory effort, lungs clear to auscultation Cardiovascular: Rate/Rhythm: regular rate and regular rhythm Heart Sounds: no gallop and no murmur Gastrointestinal (Abdomen): normal bowel sounds, soft, nontender, no hepatosplenomegaly Inspection/Auscultation: abdomen not distended Musculoskeletal: Extremities: no cyanosis no lower extremity edema Skin: no rashes, warm and dry Neurologic: moves all extremities Psychiatric: A+Ox3, euthymic affect Results & Data Vital Signs (Past 12 Hours) Vital Signs Temp Pulse Resp BP Pulse Ox 08/13/19 15:17 36.6 C 63 18 95/55 L 94 08/13/19 10:59 36.8 C 63 18 106/61 93 08/13/19 07:31 36.7 C 61 18 107/57 L 91 08/13/19 03:56 36.8 C 64 18 128/66 93 Laboratory Results Abnormal lab results 08/13/19 08/13/19 08/13/19 Range/Units 05:37 05:37 05:37 RBC 3.03 L (4.2-5.4) M/uL Hgb 8.4 L (12.0-16.0) g/dL Hct 26.5 L (37-47) % MCHC 31.7 L (32-36) g/dL RDW Std Deviation 46.8 H (36.4-46.3) fL RDW Coeff of Raymundo 14.7 H (11.5-14.5) % PT 12.1 H (9.0-12.0) Seconds INR 1.2 H (0.9-1.1) Potassium 3.4 L (3.5-5.1) mmol/L AST 7 L (15-37) U/L ALT < 6 L (12-78) U/L Albumin 2.1 L (3.4-5.0) gm/dl Globulin 4.5 H (2.5-4.0) gm/dl Albumin/Globulin Ratio 0.5 L (0.9-2) PG Care Time/CCT Total # of Minutes Spent Total Time Spent with Patient: Total time spent is greater than 50% in coordination of care (as documented) at patient's floor/unit and/or counseling patient:
[2019-08-13] MEDS: LORazepam 1 MG TAB PO PRN (16:29)
[2019-08-13] MEDS ORDERED: ERTAPENEM SODIUM 1,000 MG in SODIUM CHLORIDE 0.9% 50 ML IV SCH (17:00)
[2019-08-13] MEDS: ENOXAPARIN INJ 40 MG/0.4 ML SYR SQ SCH (21:53)
[2019-08-14] MEDS: LEVOTHYROXINE SODIUM 100 MCG TABLET PO SCH (06:02)
[2019-08-14] MEDS: LACTOBACILLUS ACIDOPHILUS (FLORANEX) TAB PO SCH ×2 (08:16→12:36)
[2019-08-14] MEDS: CITALOPRAM 40 MG TAB PO SCH (08:17)
[2019-08-14] MEDS: FOLIC ACID 1 MG in SYRINGE 9.8 ML IV SCH (08:17)
[2019-08-14] MEDS: NICOTINE 7 MG/24 HR TDSY TD SCH (08:18)
[2019-08-14] MEDS: PANTOprazole 40 MG TAB PO SCH (08:18)
[2019-08-14] MEDS: MAGNESIUM OXIDE 400 MG TAB PO SCH (08:18)
[2019-08-14] MEDS: NYSTATIN SUSP 500,000 U/5 ML UDC PO SCH ×2 (08:18→12:36)
[2019-08-14] MEDS: LORazepam 1 MG TAB PO PRN (09:10)
[2019-08-14] MEDS: OXYCODONE HCL IR 5 MG TAB (IMMEDIATE RELEASE) PO PRN (09:10)
[2019-08-14] MEDS ORDERED: ERTAPENEM SODIUM 1,000 MG in SODIUM CHLORIDE 0.9% 50 ML IV SCH (17:00)
--- NOTE | 2019-08-14 17:02 | Discharge Summary ---
Date of Service August 14, 2019 Admission HPI Per Admitting Provider 79yo female with recently diagnosed stage 4 lung adenocarcinoma with mets to the bones (had left hip pathological fracture) who presents with ongoing left-sided abdominal pain starting last week about Sunday/Sunday. She has been unable to eat as food consumption makes it worse. She has been able to tolerate small amounts of clears and soup only. Had fever of 100 degrees on Sunday. Had associated vomiting yesterday am and this am. Several times last week she was encouraged to go to the ER but she declined. The pain got much worse this weekend and was quite severe this morning. Has been using oxcodone prn pain with some relief. She has been having liquid stools about 3 times each day. No blood but has seen mucous. Records suggest she was treated for diverticulitis during her prior hospitalization and was sent home with oral antibiotics after that stay. Last normal bowel movement was about 5 days ago. With respect to lung cancer - has received 5 days of radiation to her left hip last week, was supposed to have port placement today, and chemo was to be initiated tomorrow. Has lost weight in the last month - about 5 pounds. Discharge Data Allergies Allergy/AdvReac Type Severity Reaction Status Date / Time clarithromycin AdvReac Mild N/V Verified 08/04/19 08:07 codeine AdvReac Mild UPSET Verified 08/04/19 08:07 STOMACH hydrocodone AdvReac Mild N/V Verified 08/04/19 08:07 metronidazole [From Flagyl] AdvReac Mild Gastrointestinal Verified 08/04/19 08:07 Upset venlafaxine AdvReac Mild N/V Verified 08/04/19 08:07 Consultations 08/04/19 09:51 ED Decision to Admit Stat 08/12/19 17:28 Consult Gastroenterology Routine 08/14/19 16:43 Consult Health Information Management Routine Ordered Studies 08/04/19 07:28 CT abd pelvis IV con only Stat Hospital Course (1) Sigmoid diverticulitis: Improving but very slowly. Discussed with Dr Hernández and radiation possible exacerbated underlying infection but thought not likely. Will consult gastroenterology to determine whether any further work-up is required and length of time recommended prior to restarting her radiation treatment. Failure of outpatient Augmentin and unable to take metronidazole therefore limited to IV antibiotics at this stage. Will continue on Zosyn while she remains inpatient, currently day 8. If felt she needs a 14 day course to complete she may be able to switch to ertapenem with a line placed to come back to the medical treatment unit. Stool and blood cultures negative (2) Symptomatic anemia: Now resolved. Symptomatic normocytic anemia due to low red blood cell production by bone marrow due to ongoing metastatic lung cancer and radiation therapy. Status post 1 unit packed red blood cell transfusion. Will continue to monitor CBC. Fecal occult blood negative. (3) Adenocarcinoma of lung, stage 4: Dx 1 month ago. Presented with pathological left hip fracture s/p ORIF. Bone bx c/w adenocarcinoma of lung origin. CTs with right lung nodule which is likely primary site. Under Dr Quintero She is already s/p XRT x 5 (of 10) treatments to the left hip. Was to have port placed by Dr Parker but needed to be postponed due to this hospitalization. (4) Pathological fracture of left hip: s/p ORIF about 1 month ago. Incision well-healed (5) Cigarette nicotine dependence: She has been attempting to quit. Continue Nicoderm 7mg patch (pt currently refusing) (6) Hypothyroidism: TSH 08/01/19 wnl. Cont synthroid. (7) Gastroesophageal reflux disease: Continue pantoprazole 40mg PO daily (8) Essential hypertriglyceridemia: Hold gemfibrozil (known side effect of dyspepsia) (9) Hypomagnesemia: Mg 1.5. Replete with IV and PO supplementation (10) Chronic kidney disease, stage 3a: Creatinine stable/at baseline. Avoid nephrotoxic agents. Monitor CR/GFR (11) Severe protein-calorie malnutrition: Documented 6kg weight loss in 1 month. 2nd to stage 4 lung cancer. Appreciate nutrition r/v on 08/07, will re-order Boost drinks (12) Pericardial effusion: Small - probably malignant effusion on echo (13) DVT prophylaxis: Continue Lovenox 40 mg sc daily Discharge Plan Discharge Items Patient Disposition: Home - Self-Care Reason For Visit: SIGMOID DIVERTICULITIS Discharge Diagnosis: Recurrent sigmoid diverticultitis Condition on Discharge: Good Activity: Resume your previous activity Non-emergency contact: Primary Care Provider Call non-emergency contact if: you have any medication questions Follow-up/Referrals: Zion Bartholomew MD [Primary Care Provider] - 08/19/19 11:00 am (Please, follow up at Dr. Zion Bartholomew's office with his associate, Marivel Araiza PA-C, on SundayAugust 19 at 11:00 am. *If you need to change this appointment, call the office at [phone].) Alena Hernández MD [Physician] - 08/18/19 2:00 pm (Please, follow up with Dr. Alena Hernández for radiation treatments starting on SundayAugust 18 at 2:00 pm. *The office is located at the rear of this [facility] in [facility]. If you have any questions, call the office at [phone].) Doug Quintero [Physician] - 08/15/19 3:30 pm (Please, follow up with Dr. Doug Quintero TOMORROW, SundayAugust 15 at 3:30 pm - if possible. If you are unable to keep this appointment, due to short notice, call his office to reschedule at [phone]) Diet: Low Fiber Addtl Attending Provider Instructions: You were diagnosed with recurrent sigmoid diverticulitis. Recommend continuing total course of antibiotics for 14 days and you have been transitioned to Ertapenem to complete the full course at home. You were reviewed by gastroenterology and recommended waiting at least 5 days after completion of antibiotics prior to resuming further radiation. Please continue with the low fiber diet at home. Pending Studies at Discharge: No Stand-Alone Forms: My [facility] [employer], Smoking Cessation Medications and DC Order Prescriptions: New nystatin 100,000 unit/mL Suspension 10 ml PO QID 4 Days Qty: 160 RF: 0 ertapenem 1 gram recon soln 1 g IV DAILY 5 Days Qty: 5 RF: 0 nicotine 7 mg/24 hr Patch 24 Hour 7 mg transdermal QAM Qty: 1 RF: 0 Continued oxycodone 5 mg tablet 5 mg PO Q8H PRN (Reason: pain) Qty: 90 RF: 0 calcium carbonate 600 mg calcium (1,500 mg) tablet 600 mg PO BID RF: 0 citalopram 40 mg tablet 60 mg PO QAM Qty: 135 RF: 0 gemfibrozil 600 mg tablet 600 mg PO BID Qty: 180 RF: 0 levothyroxine 100 mcg tablet 100 mcg PO QAM Qty: 90 RF: 0 cyanocobalamin (vitamin B-12) 1,000 mcg tablet 1,000 mcg PO QAM RF: 0 pantoprazole 40 mg tablet,delayed release (DR/EC) 40 mg PO QAM Qty: 90 RF: 3 acetaminophen [Acetaminophen Extra Strength] 500 mg Tablet 1,000 mg PO Q8H PRN (Reason: Pain) RF: 0 folic acid 1 mg tablet 1 mg PO QAM RF: 0 omega-3 acid ethyl esters 1 gram capsule 1 cap PO QAM RF: 0 Discharge Orders: Discharge Order (Routine); Ordered 08/14/19 Ordered By: Jayy Ritter/Other Patient Handouts: Diverticulitis Dc Admission Data Admit Date/Time: 08/04/19 10:53 Attending Provider: Jayy Madrid Admit Provider: Jayy Ash Primary Care Provider: Zion Bartholomew Other Providers: Gabrielle Moon ; Jayy Ash ; [place] ; Balta Kennedy
== END 2019-08-14 17:20 | disposition home or self-care (01) | DRG 391 ==
LOC: ED 07:08 → SUATTDRO 10:53 → 4W 10:53

== ENCOUNTER 2019-09-20 11:44 | Inpatient (IN) ==
[2019-09-20] MEDS ORDERED: SODIUM CHLORIDE 0.9% 1000ML 1,000 ML IV ONE (12:01)
[2019-09-20] MEDS ORDERED: fentaNYL citrate 100 MCG/2 ML VIAL IV STA ×2 (12:01→14:25)
[2019-09-20] MEDS ORDERED: ONDANSETRON INJ 2 MG/ML 2 ML VIAL IV STA (12:01)
[2019-09-20 13:07] LABS: Hemoglobin 7.6 g/dL (12.0-16.0); Mean Corpuscular Hemoglobin 24.9 pg (25-34); Mean Corpuscular Hgb Conc 31.7 g/dL (32-36); Mean Corpuscular Volume 78.7 fL (80-100); Mean Platelet Volume 8.8 fL (7.4-10.4); Platelet Count 344 K/uL (130-400); RDW Coefficient of Variation 17.7 % (11.5-14.5); RDW Standard Deviation 50.4 fL (36.4-46.3); Red Blood Count 3.05 M/uL (4.2-5.4); White Blood Count 9.89 K/uL (4.8-10.8)
[2019-09-20 13:27] LABS: Alanine Aminotransferase < 6 U/L (12-78); Aspartate Aminotransferase 8 U/L (15-37); BUN Creatinine Ratio 20.9 (10-20); Bilirubin Direct < 0.1 mg/dl (0-0.2); Blood Urea Nitrogen 12 mg/dl (7-18); Calcium 7.9 mg/dl (8.5-10.1); Carbon Dioxide 27 mmol/L (21-32); Chloride 99 mmol/L (98-107); Creatinine Clr Calc Pharmacy 71.1 ml/min; Est GFR (African American) 104.2; Est GFR (Non-African American) 89.9; Glucose 81 mg/dl (70-99); Lipase 19 U/L (73-393); Potassium 2.6 mmol/L (3.5-5.1); Sodium 134 mmol/L (136-145)
[2019-09-20 13:30] LABS: Basophils # (auto) 0.02 K/uL (0-0.2); Basophils % (auto) 0.2 %; Eosinophils # (auto) 0.06 K/uL (0-0.5); Eosinophils % (auto) 0.6 %; Hypochromasia Present; Immature Granulocytes # (auto) 0.13 K/uL (0.00-0.02); Immature Granulocytes % (auto) 1.3 %; Lymphocytes # (auto) 1.04 K/uL (1.2-3.4); Lymphocytes % (auto) 10.5 %; Monocytes # (auto) 1.06 K/uL (0.11-0.59); Monocytes % (auto) 10.7 %; Neutrophils # (auto) 7.58 K/uL (1.4-6.5); Neutrophils % (auto) 76.7 %
[2019-09-20 13:32] LABS: Alkaline Phosphatase 69 U/L (45-117); Bilirubin,Total 0.4 mg/dl (0.2-1); Total Protein 5.9 gm/dl (6.4-8.2); Troponin I < 0.015 ng/ml (0-0.045)
[2019-09-20] MEDS ORDERED: HEPARIN 100 UNIT/ML 5ML FLUSH ONE (13:51)
[2019-09-20] MEDS ORDERED: IOVERSOL 100ml IV PRN (13:57)
--- NOTE | 2019-09-20 14:15 | CT Scan Report ---
CT abd pelvis IV con only CLINICAL HISTORY: 79 years-old Female presenting with diffuse abdominal pain, worse LLQ. TECHNIQUE: Multidetector CT of the abdomen and pelvis was performed after the administration of intra venous contrast. IV contrast: 93 mL of Optiray 320. One or more dose lowering techniques were used co nsistent with the principles of ALARA (as low as reasonably achievable), including automatic exposure control, mA or kV adjustment to individual patient size, and/or use of iterative reconstruction. COMPARISON: 08/30/2019. CT DOSE (mGy.cm): The estimated cumulative dose is 281.39 mGy.cm. FINDINGS: Resistance Brazer topogram: Orthopedic hardware. Lung bases: Normal heart size. Coronary artery calcification. Small to moderate pericardial effusion, stable from prior. Small right and trace left pleural effusions. Interlobular septal thickening and pulmonary vascular prominence at the lung bases suggesting congestive change. Liver: Normal morphology. Hypodensity along the fissure for the falciform ligament possibly perfusion al variation or focal fat. Patent hepatic vasculature. Biliary: No intrahepatic or extrahepatic biliary ductal dilatation. Gallbladder contains gallstones. The gallbladder is distended without evidence of tension. No gallbladder wall thickening or perichole cystic fluid or inflammatory change. Pancreas: Normal. Spleen: Normal. Adrenal glands: Thickening of the adrenal gland on the left as on prior exam. Suspected underlying no dule poorly demonstrated on this study. Right adrenal gland normal. Kidneys and ureters: Persistent mild pelvocaliectasis of the right kidney with distention of the righ t ureter to the level of the pelvic brim. At this site, the ureter is not well delineated and not ravi ssly dilated in the distal portion. Few cysts noted bilaterally. No left hydronephrosis. No nephrolit hiasis. Left ureter nondistended. Bladder: Incompletely evaluated secondary to underdistention. Pelvic organs: Degenerated fibroid may be present in the uterus. The right ovary is enlarged for the patient's postmenopausal status though unchanged since the most recent prior exam. Left ovary poorly delineated. Bowel: Interval development of severe wall thickening of the mid to lower rectum. There is also sever e wall thickening along the majority of the sigmoid colon, which has significantly progressed from pr ior. There is upstream fluid in the colon, which is not significantly distended. The appendix is not well delineated though may be mildly thick-walled (series 3 image 251). No bowel obstruction. Small s liding type hiatal hernia. Peritoneal cavity: No free fluid or intraperitoneal gas. Lymph nodes: No enlarged lymph nodes in the abdomen or pelvis. Vasculature: Atherosclerosis of the normal caliber abdominal aorta. IVC patent. Abdominal wall: Mild body wall edema. Musculoskeletal: Total left hip arthroplasty. Mild degenerative changes of the spine. IMPRESSION: 1. Interval development of severe wall thickening and inflammatory change of the mid to lower rectum and sigmoid colon. Given the rapidity of this occurrence, this is is evidence of an infectious or in flammatory colitis. An ischemic etiology is considered unlikely. 2. Up stream fluid in the large bowel suggests a diarrheal state. No bowel obstruction. 3. The appendix appears thick-walled, which may relate to the presence of the colitis. Correlate for right upper quadrant symptoms to exclude appendicitis, which is not favored. 4. Enlarged right ovary as on prior exam. Consider nonurgent outpatient follow-up pelvic ultrasound as this is unexpected for a postmenopausal female. 5. Persistent mild right pelvocaliectasis and distention of the right ureter to the level of the mid portion. No convincing evidence of an obstructing calculus or mass. Attention on follow-up. This may be secondary to the presence of an inflammatory process elsewhere in the pelvis versus a primary uret eral etiology. 6. Volume overload with congestive changes at the lung bases, persistent pericardial effusion, trace pleural effusions, and body wall edema. 7. Cholelithiasis. ACT 112: Negative or not required by law. Electronically signed by: Zion Harrington M.D. 09/20/2019 2:14 PM
[2019-09-20] MEDS ORDERED: POTASSIUM CHLORIDE / WTR 20 MEQ/100 ML PLCT IV ONE (14:26)
--- NOTE | 2019-09-20 15:26 | History & Physical Report ---
Date of Service September 20, 2019 Assessment & Plan (1) Diarrhea: Admit to [facility] on telemetry Vital signs every 4 hours Gentle IV fluid hydration with normal saline Transfuse 1 unit of PRBCs for symptomatic anemia Monitor CBC daily, CMP For now we will start ertapenem for possible infectious colitis, since patient responded well last admission when she had diverticulitis. Stool for C. difficile pending and other cultures. Will check for magnesium patient is usually low. If appropriate replenish. We will consult urology for distention of the right ureter of the midportion. Patient supposed to have IVP on Sunday as an outpatient, but now admitted. Will consult gastroenterology for severe's wall thickening and inflammatory changes of the mid to lower rectum and sigmoid colon possibly of infectious or inflammatory etiology-colitis. DVT prophylaxis SCDs and teds since patient already has decreased red blood cell count and hemoglobin of 7.4. Patient is a full code. Present on Admission?: Yes (2) Hypokalemia: Replenish potassium as needed to keep above 4. Present on Admission?: Yes (3) Colitis: Keep n.p.o. Continue normal saline with potassium. Replenish electrolytes. Consult gastroenterology. Present on Admission?: Yes (4) Acute dehydration: As discussed above. IV fluid hydration. Patient is n.p.o. due to colitis. Present on Admission?: Yes (5) Situational depression: Stable for now.: Continue home medicine citalopram 40 mg p.o. every morning. Monitor for anxiety. Present on Admission?: Yes (6) COPD (chronic obstructive pulmonary disease): DuoNebs every 4 hours as needed. Patient is right now on 2 L of oxygen for shortness of breath, which could be also related to her symptomatic anemia. Patient is not on oxygen at home Present on Admission?: Yes (7) Anemia: Anemia of chronic disease is likely due to metastatic lung cancer, for bone marrow production of red blood cells, continuous infection either GI or urinary, recent chemotherapy for length lung cancer and radiation therapy for the replaced left hip. Patient agreed and signed a consent for 1 PRBC. Continue monitoring H&H. Patient will most likely need PRBC transfusion from time to time which can be done also with her heme-onc . Looking at the future patient would most likely benefit from palliative consult but she does not appear ready for it nor her family. Present on Admission?: Yes (8) Adenocarcinoma of lung, stage 4: As discussed above. It is metastatic cancer to the bone. Patient is undergoing chemotherapy and appears to have side effects of recent chemotherapy. Present on Admission?: Yes (9) Bone metastasis: As discussed above. At this point consult hematology oncology if any concern. Present on Admission?: Yes (10) Cigarette smoker: Patient is not smoking anymore even though she smoked for years 1 to 2 packs/day. We offered her nicotine patch but she did not express wish to have the patch placed on. Present on Admission?: Yes (11) Hyperlipidemia: Patient has elevated triglycerides. She is on gemfibrozil 600 mg p.o. twi ce daily. She is also on folic acid 1 mg p.o. every morning. Present on Admission?: Yes (12) GERD (gastroesophageal reflux disease): Continue pantoprazole 40 mg p.o. every morning. Present on Admission?: Yes History of Present Illness Chief Complaint: Diarrhea and hypokalemia Primary Care Provider: Zion Bartholomew MD Patient is a 79 years old female with past medical history of of adenocarcinoma of the lung stage IV with bone metastases, pathological fracture of the left hip s/p replacement and radiation therapy. Mediport placement and status post chemotherapy 3 weeks ago, then status post diverticulitis for 9 days after she had left hip replacement and radiation, COPD, osteopenia who was brought to the emergency room by her daughters stating that patient is not feeling very well has persistent diarrhea, malaise and generalized weakness. She was also seen by urologist who recommended to have IVP done on Sunday because she had mild hydronephrosis on the CT scan done by the end of the August. His fever, chills, chest pain, dysuria and hematuria. Patient was treated as an outpatient with Macrobid. Labs are reviewed: WBCs 9.89, hemoglobin 7.6, hematocrit 24 platelets 344, sodium 134, potassium 2.6, chloride 99, BUN 12, creatinine 0.56, GFR 89.9, lactate 1.5, glucose 81, magnesium pending, troponin 0 0.015, lipase 19 Albumin 2. Urine was done September 17 and it was positive for leukocyte esterase and blood. Patient stool was negative C. difficile September 10. She tested one-time positive for C. difficile gene H but negative for toxin which was on August 30, 2019. No therapy was recommended with this that time for C. difficile. Patient's last urine culture grew E. coli and diphtheroids dating September 17, [address] was [address] abdomen and pelvis shows severe wall thickening and inflammatory changes of the mid to lower rectum and sigmoid colon. Given the rapidity of this all appearance this is evidence of infectious or inflammatory colitis. And ischemic etiologies considered unlikely. Upstream fluid in the large bowel suggest a diarrheal state. No bowel obstruction. The appendix appears thick-walled which may rule relate to the presence of the colitis. Correlate for the right upper quadrant symptoms to include appendicitis. Which is not favored. Enlarged right ovary as on prior exam. Consider nonemergent outpatient pelvic ultrasound. Persistent mild right pelvocalectasis and distention of the right ureter to the level of the midportion. No convincing evidence of an obstructing calculus or mass. Attention on follow-up. This may be secondary to the presence of an inflammatory process elsewhere in the pelvis versus a primary ureteral etiology. Decision is made to admit pt to [facility] on tele for evaluation and treatment of most likely infectious diarrhea, hypokalemia and severe anemia. Allergies Allergy/AdvReac Type Severity Reaction Status Date / Time nickel Allergy Intermediate Rash Verified 09/20/19 12:09 clarithromycin AdvReac Mild N/V Verified 09/20/19 12:09 codeine AdvReac Mild UPSET Verified 09/20/19 12:09 STOMACH hydrocodone AdvReac Mild N/V Verified 09/20/19 12:09 metronidazole [From Flagyl] AdvReac Mild Gastrointestinal Verified 09/20/19 12:09 Upset venlafaxine AdvReac Mild N/V Verified 09/20/19 12:09 Home Medications Home Medications Medication Instructions Recorded Confirmed Type citalopram 40 mg tablet 60 mg PO QAM #135 tab 04/11/19 09/20/19 History gemfibrozil 600 mg tablet 600 mg PO BID #180 tab 04/11/19 09/20/19 History acetaminophen [Acetaminophen Extra 1,000 mg PO Q8H PRN 07/30/19 09/20/19 History Strength] folic acid 1 mg PO QAM 08/04/19 09/20/19 History ondansetron HCl [Zofran] 4 mg PO TID PRN 08/30/19 09/20/19 History pantoprazole [Protonix] 40 mg PO QAM 08/30/19 09/20/19 History levothyroxine 100 mcg tablet 100 mcg PO QAM #90 tab 09/12/19 09/20/19 Rx oxycodone 5 mg tablet 5 mg PO Q6H PRN #40 tab 09/15/19 09/20/19 Rx nitrofurantoin 100 mg PO BID 5 Days #10 cap 09/19/19 09/20/19 Rx monohydrate/macrocrystals 100 mg capsule aspirin [Aspir-81] 81 mg PO QAM 09/20/19 09/20/19 History Past Med/Surg History Medical History Adenocarcinoma, lung Arthritis Depression (Acute) Gastroesophageal reflux disease (Acute) History of bronchitis History of diverticulitis (Resolved) Hyperlipidemia Hypothyroidism (Acute) Irritable bowel syndrome (Acute) Lung cancer NEW DX Metastatic bone cancer radiation treatments completed 08/25/19. Osteoarthritis Pneumonia hx Surgical History History of cataract surgery RT/LEFT History of colonoscopy History of dilatation and curettage History of discectomy CERVICAL (GOOD ROM) History of repair of rotator cuff RT History of tooth extraction S/P section X 1 S/P hip replacement left. 07/02/2019. SAB with MAC. no issues. Family History Family/Other Family history of diabetes mellitus Brother Family hx of colon cancer Mother , age 66 Diabetes Cancer ovarian Coronary heart disease had acute GA which led to her Sister Cancer Family/Other Breast cancer Father , age 49 Suicide Alcoholism Social History Preferred Language: Andorran Communication Ability: Effective Visual Impairment: No Limitations Hearing Ability: Normal Store Receiving Clerk Required: No Beliefs That Will Affect Care: None marital status: Current Living Situation: Alone current occupational status: retired current occupation: worked at [employer] Other Information That Helps Us Care for You: No other: 1 daughter Feels Safe at Home: Yes Safety Concerns: Feels Safe At This Time Smoking Status: Current every day smoker Tobacco Type: cigarettes ; Age Started Using Tobacco: 21 ; packs per day: 0.5 ; Cigarettes Per Day: 5 ; Second Hand Exposure: No ; Hx Alcohol Use: No Hx Substance Use: No Childhood Exposure to Second-Hand Smoke: Yes (both parents) caffeine: Yes Dental Care, Regularly: No Seatbelt Use: always Review of Systems Review of Systems: All systems reviewed & are unremarkable except as noted in HPI & below Physical Exam Constitutional: WD/WN, vitals as above well developed, + ill appearing and + cachectic ENMT: external ear and nose normal, oropharynx normal Neck: trachea midline, no thyromegaly Respiratory: Auscultation: + wheezes Cardiovascular: Heart Sounds: normal S1, normal S2 and + murmur Vessels: dorsalis pedis pulses present Gastrointestinal (Abdomen): Inspection/Auscultation: + abdomen distended and normal bowel sounds Percussion/Palpation: + abdomen tender, + guarding and abdomen soft Musculoskeletal: no cyanosis or clubbing, extremities motor strength 5/5 Skin: no rashes, warm and dry Neurologic: patellar DTR's 2+ bilat, sensation intact Psychiatric: A+Ox3, euthymic affect Lymphatic: no cervical or axillary lymphadenopathy Results & Data Vital Signs (Past 12 Hours) Vital Signs Temp Pulse Resp BP Pulse Ox 09/20/19 15:01 81 17 95 09/20/19 15:00 81 15 125/64 96 09/20/19 14:31 86 17 09/20/19 14:30 85 17 147/65 H 09/20/19 13:30 83 14 129/65 100 09/20/19 13:20 79 15 110/64 100 09/20/19 11:45 36.7 C 103 H 20 127/56 L 91 Code Status & VTE Plan Code Status Full code VTE Prophylaxis Plan VTE Prophylaxis will be ordered: Yes PG Care Time/CCT Total # of Minutes Spent Total Time Spent with Patient: Total time spent is greater than 50% in coordination of care (as documented) at patient's floor/unit and/or counseling patient: (1) Diarrhea Diarrhea type: unspecified type Qualified Code(s): R19.7 - Diarrhea, unspecified (2) Adenocarcinoma of lung, stage 4 Laterality: unspecified laterality Qualified Code(s): C34.90 - Malignant neoplasm of unspecified part of unspecified bronchus or lung
--- NOTE | 2019-09-20 15:54 | Emergency Department Note ---
Entered by Angelina Lau acting as a scribe for Mariusz Aburto MD ED Provider Note Name: DAVID RODRIGUEZ Age: 79 Arrives Via: Walk-In Informant: Patient CC: Diarrhea HPI: 79F arrives for evaluation of intermittent diarrhea that began yesterday. The patient reports experiencing nausea/vomiting all last night and notes that she was here last week for similar symptoms. The patient also reports experiencing sharp abdominal pains with loss of appetite and headaches. Notes associated abdominal distention. The patient denies any recent falls, fever/chills, hematochezia, shortness of breath, or chest pain. The patient notes that she takes oxycodone for pain and was hospitalized for diverticulitis about a month ago. No fevers, syncope. Movement makes worse. ROS: See above HPI for pertinent positives & negatives. A total of 10 systems reviewed and were otherwise negative. Past Medical History:See Below Past Surgical History:See Below Family History:See Below Social History:See Below Home Medications:See Below Allergies:Hydrocodone, Metronidazole, Venlafaxine Vitals:BP: 127/56 P: 103 R: 20 O2 Sat: 91 on RA Physical Exam: GENERAL: Patient is uncomfortable appearing and in minor distress. Dehydrated. EYES: No scleral icterus, unremarkable pupils. ENT: Mucous membranes dry, no nasal congestion. NECK: No masses appreciated, nomeningismus, trachea is midline. RESPIRATORY: No dyspnea. Mild wheezing bilaterally, no rhonchi. CARDIOVASCULAR: Mildly tachycardic rate and rhythm.No murmurs, rubs, gallops appreciated. GASTROINTESTINAL: Abdomen mildly distended with hyperactive bowel sounds, diffuse moderate tenderness to palpation worse over LLQ, no peritonitis.Bowel sounds positive.No masses appreciated. BACK: No midline tenderness, no CVA tenderness EXTREMITIES: Normal motion all extremities, no cyanosis, no edema. NEUROLOGIC: Alert and oriented, no acute motor or sensory deficits, no focal weakness, cranial nerves grossly intact. SKIN: No rash, no jaundice, no diaphoresis. Poor skin turgor. ED Course: Prior Medical Record, Triage/Nursing Notes, Medications, Allergies reviewed by Me Vital Signs: reviewed and patient is mildly tachycardic Labs:Reviewed and remarkable for no significant abnormalities Interventions: Saline lock, nSS bolus 1 L IV, Fentanyl 50mcg IV x 2, Zofran 4mg IV, Potassium 20meq IV Imaging: Radiology results as stated below per my review and the radiologist's interpretation: CT abd pelvis IV con only CLINICAL HISTORY: 79 years-old Female presenting with diffuse abdominal pain, worse LLQ. TECHNIQUE: Multidetector CT of the abdomen and pelvis was performed after the administration of intravenous contrast. IV contrast: 93 mL of Optiray 320. One or more dose lowering techniques were used consistent with the principles of ALARA (as low as reasonably achievable), including automatic exposure control, mA or kV adjustment to individual patient size, and/or use of iterative reconstruction. COMPARISON: 08/30/2019. CT DOSE (mGy.cm): The estimated cumulative dose is 281.39 mGy.cm. 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 Lung bases: Normal heart size. Coronary artery calcification. Small to moderate pericardial effusion, stable from prior. Small right and trace left pleural effusions. Interlobular septal thickening and pulmonary vascular prominence at the lung bases suggesting congestive change. Liver: Normal morphology. Hypodensity along the fissure for the falciform ligament possibly perfusional variation or focal fat. Patent hepatic vasculature. Biliary: No intrahepatic or extrahepatic biliary ductal dilatation. Gallbladder contains gallstones. The gallbladder is distended without evidence of tension. N o gallbladder wall thickening or pericholecystic fluid or inflammatory change. Pancreas: Normal. Spleen: Normal. Adrenal glands: Thickening of the adrenal gland on the left as on prior exam. Suspected underlying nodule poorly demonstrated on this study. Right adrenal gland normal. Kidneys and ureters: Persistent mild pelvocaliectasis of the right kidney with distention of the right ureter to the level of the pelvic brim. At this site, the ureter is not well delineated and not grossly dilated in the distal portion. Few cysts noted bilaterally. No left hydronephrosis. No nephrolithiasis. Left ureter nondistended. Bladder: Incompletely evaluated secondary to underdistention. Pelvic organs: Degenerated fibroid may be present in the uterus. The right ovary is enlarged for the patient's postmenopausal status though unchanged since the most recent prior exam. Left ovary poorly delineated. Bowel: Interval development of severe wall thickening of the mid to lower rectum. There is also severe wall thickening along the majority of the sigmoid colon, which has significantly progressed from prior. There is upstream fluid in the colon, which is not significantly distended. The appendix is not well delineated though may be mildly thick-walled (series 3 image 251). No bowel obstruction. Small sliding type hiatal hernia. Peritoneal cavity: No free fluid or intraperitoneal gas. Lymph nodes: No enlarged lymph nodes in the abdomen or pelvis. Vasculature: Atherosclerosis of the normal caliber abdominal aorta. IVC patent. Abdominal wall: Mild body wall edema. Musculoskeletal: Total left hip arthroplasty. Mild degenerative changes of the spine. IMPRESSION: 1. Interval development of severe wall thickening and inflammatory change of the mid to lower rectum and sigmoid colon. Given the rapidity of this occurrence, this is is evidence of an infectious or inflammatory colitis. An ischemic etiology is considered unlikely. 2. Up stream fluid in the large bowel suggests a diarrheal state. No bowel obstruction. 3. The appendix appears thick-walled, which may relate to the presence of the colitis. Correlate for right upper quadrant symptoms to exclude appendicitis, which is not favored. 4. Enlarged right ovary as on prior exam. Consider nonurgent outpatient follow- up pelvic ultrasound as this is unexpected for a postmenopausal female. 5. Persistent mild right pelvocaliectasis and distention of the right ureter to the level of the midportion. No convincing evidence of an obstructing calculus or mass. Attention on follow-up. This may be secondary to the presence of an inflammatory process elsewhere in the pelvis versus a primary ureteral etiology. 6. Volume overload with congestive changes at the lung bases, persistent pericardial effusion, trace pleural effusions, and body wall edema. 7. Cholelithiasis. ACT 112: Negative or not required by law. Electronically signed by: Zion Harrington M.D. 09/20/2019 2:14 PM Consults:1436: I spoke with Dr. Mullins- Rodri about the patient's case and she agrees with holding off on antibiotics until she can evaluate the patient further. Reassessments/Times: 1156: Past medical records reviewed. The patient was evaluated in room B02. A complete history and physical exam was performed. 1253: The patient was 72% on room air so I placed her on 3L of oxygen. This was directly after Fentanyl. 1352: Patient notes that abdominal pain is bearable and that she is about to have diarrhea. 1430: The patient had an episode of diarrhea. Nursing did not get a sample of it and the patient will get pain medication. 1450: I reevaluated the patient and she is feeling better. Blood pressure:Normal.No Referral necessary Disposition:Hospitalization Differentials: Differential diagnosis: Etiologies such as gastroenteritis, food borne illness, infections, appendicitis, diverticulitis, inflammatory bowel disease, obstruction, GI bleed, biliary pathology, cardiac process, intracranial process, as well as others were entertained. Medical Decision Makin yr old female with complex PMH including currently being treated lung cancer with chemo 3 weeks ago complicated with recent diverticulitis and on/off again diarrheal issues. Cdiff last week negative. N/v restarted last night. Dehydrated on arrival with improvement with IV fluids. Lactate OK. CT with severe colitis. No fevers nor wbc elevation. Feeling better with 2nd dose fentanyl. Abdo pain much improved. Awaiting repeat cdiff and stool culture. Reviewed with hospitalist who agrees with holding off abx for moment and she will evaluate patient. Impression: Colitis Dehydration Hypokalemia Diarrhea The scribe's documentation has been prepared under my direction and personally reviewed by me in its entirety. I confirm that the note above accurately refle cts all work, treatment, procedures, and medical decision making performed by me. Mariusz Aburto MD Impression & Plan Colitis, Diarrhea, Acute dehydration, Acute hypokalemia Past Med/Surg History Medical History Adenocarcinoma, lung Arthritis Depression (Acute) Gastroesophageal reflux disease (Acute) History of bronchitis History of diverticulitis (Resolved) Hyperlipidemia Hypothyroidism (Acute) Irritable bowel syndrome (Acute) Lung cancer NEW DX Metastatic bone cancer radiation treatments completed 08/25/19. Osteoarthritis Pneumonia hx Surgical History History of cataract surgery RT/LEFT History of colonoscopy History of dilatation and curettage History of discectomy CERVICAL (GOOD ROM) History of repair of rotator cuff RT History of tooth extraction S/P section X 1 S/P hip replacement left. 07/02/2019. SAB with MAC. no issues. Family History Family/Other Family history of diabetes mellitus Brother Family hx of colon cancer Mother , age 66 Diabetes Cancer ovarian Coronary heart disease had acute [place] which led to her Sister Cancer Family/Other Breast cancer Father , age 49 Suicide Alcoholism Social History Preferred Language: Faroese Communication Ability: Effective Visual Impairment: No Limitations Hearing Ability: Normal Roll Tube Setter Required: No Beliefs That Will Affect Care: None marital status: Current Living Situation: Alone current occupational status: retired current occupation: worked at [employer] ([place] Other Information That Helps Us Care for You: No other: 1 daughter Feels Safe at Home: Yes Safety Concerns: Feels Safe At This Time Smoking Status: Current every day smoker Tobacco Type: cigarettes ; Age Started Using Tobacco: 21 ; packs per day: 0.5 ; Cigarettes Per Day: 5 ; Second Hand Exposure: No ; Hx Alcohol Use: No Hx Substance Use: No Childhood Exposure to Second-Hand Smoke: Yes (both parents) caffeine: Yes Dental Care, Regularly: No Seatbelt Use: always Results & Data Vital Signs Vital Signs - 24 hr 09/20/19 11:45 09/20/19 13:20 09/20/19 13:30 Temperature 36.7 C Temperature Source Oral Pulse Rate 103 H 79 83 Pulse Rate [Right Finger] Pulse Rate from SpO2 Sensor 79 83 Pulse Rhythm Regular Pulse Strength Normal Respiratory Rate 20 15 14 Respiratory Effort / Characteristics Non-Labored Spontaneous Respiratory Depth Normal Respiratory Pattern Regular Blood Pressure 127/56 L 110/64 129/65 Blood Pressure [Right Arm] Blood Pressure Mean 79 79 94 Blood Pressure Mean [Right Arm] Blood Pressure Position Sitting Pulse Oximetry 91 100 100 Oxygen Delivery Method Room Air Oxygen Flow Rate Sepsis Recent Fever Within 48 Hours No Sepsis New/Unexplained Change in Mental Status No Sepsis Action Taken by Nursing No Action Required 09/20/19 14:30 09/20/19 14:31 09/20/19 15:00 Temperature Temperature Source Pulse Rate 85 86 81 Pulse Rate [Right Finger] Pulse Rate from SpO2 Sensor 81 Pulse Rhythm Pulse Strength Respiratory Rate 17 17 15 Respiratory Effort / Characteristics Respiratory Depth Respiratory Pattern Blood Pressure 147/65 H 125/64 Blood Pressure [Right Arm] Blood Pressure Mean 81 76 Blood Pressure Mean [Right Arm] Blood Pressure Position Pulse Oximetry 96 Oxygen Delivery Method Nasal Cannula Oxygen Flow Rate 2 Sepsis Recent Fever Within 48 Hours Sepsis New/Unexplained Change in Mental Status Sepsis Action Taken by Nursing 09/20/19 15:01 09/20/19 15:30 09/20/19 15:31 Temperature Temperature Source Pulse Rate 81 85 86 Pulse Rate [Right Finger] Pulse Rate from SpO2 Sensor 81 85 86 Pulse Rhythm Pulse Strength Respiratory Rate 17 17 17 Respiratory Effort / Characteristics Respiratory Depth Respiratory Pattern Blood Pressure 121/59 L Blood Pressure [Right Arm] Blood Pressure Mean 68 Blood Pressure Mean [Right Arm] Blood Pressure Position Pulse Oximetry 95 96 96 Oxygen Delivery Method Nasal Cannula Nasal Cannula Nasal Cannula Oxygen Flow Rate 2 2 2 Sepsis Recent Fever Within 48 Hours Sepsis New/Unexplained Change in Mental Status Sepsis Action Taken by Nursing 09/20/19 15:46 Temperature Temperature Source Pulse Rate Pulse Rate [Right Finger] 82 Pulse Rate from SpO2 Sensor Pulse Rhythm Pulse Strength Respiratory Rate 20 Respiratory Effort / Characteristics Non-Labored Respiratory Depth Normal Respiratory Pattern Blood Pressure Blood Pressure [Right Arm] 112/65 Blood Pressure Mean Blood Pressure Mean [Right Arm] 80 Blood Pressure Position Pulse Oximetry 96 Oxygen Delivery Method Room Air Oxygen Flow Rate Sepsis Recent Fever Within 48 Hours Sepsis New/Unexplained Change in Mental Status Sepsis Action Taken by Prison Medications Current Medication List: was personally reviewed by me Laboratory Data Attestation: I reviewed the patient's lab results. Result diagrams: 09/20/19 12:39 09/20/19 12:39 Lab Results 09/20/19 09/20/19 09/20/19 Range/Units 12:39 12:39 12:39 WBC 9.89 (4.8-10.8) K/uL RBC 3.05 L (4.2-5.4) M/uL Hgb 7.6 L (12.0-16.0) g/dL Hct 24.0 L (37-47) % MCV 78.7 L (80-100) fL MCH 24.9 L (25-34) pg MCHC 31.7 L (32-36) g/dL RDW Std Deviation 50.4 H (36.4-46.3) fL RDW Coeff of Raymundo 17.7 H (11.5-14.5) % Plt Count 344 (130-400) K/uL MPV 8.8 (7.4-10.4) fL Immature Gran % (Auto) 1.3 % Neut % (Auto) 76.7 % Lymph % (Auto) 10.5 % Wharton % (Auto) 10.7 % Eos % (Auto) 0.6 % Baso % (Auto) 0.2 % Immature Gran # (Auto) 0.13 H (0.00-0.02) K/uL Neut # (Auto) 7.58 H (1.4-6.5) K/uL Lymph # (Auto) 1.04 L (1.2-3.4) K/uL Wharton # (Auto) 1.06 H (0.11-0.59) K/uL Eos # (Auto) 0.06 (0-0.5) K/uL Baso # (Auto) 0.02 (0-0.2) K/uL Hypochromasia Present Sodium 134 L (136-145) mmol/L Potassium 2.6 L (3.5-5.1) mmol/L Chloride 99 (98-107) mmol/L Carbon Dioxide 27 (21-32) mmol/L Anion Gap 8.0 (3-11) BUN 12 (7-18) mg/dl Creatinine 0.56 L (0.6-1.2) mg/dl Est Cr Clr Drug Dosing 71.1 ml/min Est GFR ( Amer) 104.2 Est GFR (Non-Af Amer) 89.9 BUN/Creatinine Ratio 20.9 H (10-20) Glucose 81 (70-99) mg/dl Lactate 1.5 (0.4-2.0) mmol/L Calcium 7.9 L (8.5-10.1) mg/dl Total Bilirubin 0.4 (0.2-1) mg/dl Direct Bilirubin < 0.1 (0-0.2) mg/dl AST 8 L (15-37) U/L ALT < 6 L (12-78) U/L Alkaline Phosphatase 69 (45-117) U/L Troponin I < 0.015 (0-0.045) ng/ml Total Protein 5.9 L (6.4-8.2) gm/dl Albumin 2.0 L (3.4-5.0) gm/dl Lipase 19 L (73-393) U/L Administered Medications Potassium Chloride (K Jamie / Wtr) 20 meq in 100 mls @ 50 mls/hr IV ONE ONE Stop: 09/20/19 16:25 Last Admin: 09/20/19 15:11 Dose: 50 mls/hr Documented by: [id number] Ioversol (Optiray 320 100ml) 93 ml IV ONCE PRN PRN Reason: Interaction Checking Stop: 09/24/19 13:56 Last Admin: 09/20/19 13:57 Dose: 93 ml Documented by: [id number] Discontinued Medications Fentanyl Citrate (Fentanyl Citrate) 50 mcg IV NOW STA Stop: 09/20/19 12:02 Last Admin: 09/20/19 12:39 Dose: 50 mcg Documented by: [id number] Fentanyl Citrate (Fentanyl Citrate) 50 mcg IV NOW STA Stop: 09/20/19 14:26 Last Admin: 09/20/19 14:36 Dose: 50 mcg Documented by: [id number] Heparin Sodium (Porcine) (Heparin Sod 100 Unit/Ml Flush) Confirm Administered Dose 5 ml .ROUTE .STK-MED ONE Stop: 09/20/19 13:52 Last Admin: 09/20/19 13:55 Dose: 5 ml Documented by: [id number] Sodium Chloride (Nss 1000ml) 1,000 mls @ 999 mls/hr IV .Q1H1M ONE Stop: 09/20/19 13:01 Last Infusion: 09/20/19 13:40 Dose: 0 mls/hr Documented by: [id number] Admin: 09/20/19 12:34 Dose: 999 mls/hr Documented by: [id number] Ondansetron HCl (Zofran) 4 mg IV NOW STA Stop: 09/20/19 12:02 Last Admin: 09/20/19 12:38 Dose: 4 mg Documented by: [id number] Blood Pressure Blood Pressure Findings: Elevated blood pressure Blood Pressure Disposition: further management by hospitalist Discharge Plan Visit Data Chief Complaint: Dehydration Stated Complaint: DEHYDRATED ED Provider: Mariusz Aburto Discharge Problem: Colitis, Diarrhea, Acute dehydration, Acute hypokalemia Forms Stand Alone Forms: My [facility] [employer] Prescriptions Prescriptions: No Action levothyroxine [Synthroid] 100 mcg tablet 100 mcg PO QAM Qty: 90 RF: 3 oxycodone 5 mg tablet 5 mg PO Q6H PRN (Reason: pain) Qty: 40 RF: 0 nitrofurantoin monohyd/m-cryst [Macrobid] 100 mg capsule 100 mg PO BID 5 Days Qty: 10 RF: 0 citalopram [Celexa] 40 mg tablet 60 mg PO QAM Qty: 135 RF: 0 gemfibrozil [Lopid] 600 mg tablet 600 mg PO BID Qty: 180 RF: 0 acetaminophen [Acetaminophen Extra Strength] 500 mg Tablet 1,000 mg PO Q8H PRN (Reason: Pain) RF: 0 folic acid 1 mg tablet 1 mg PO QAM RF: 0 ondansetron HCl [Zofran] 4 mg tablet 4 mg PO TID PRN (Reason: nausea and vomiting) RF: 0 pantoprazole [Protonix] 40 mg tablet,delayed release (DR/EC) 40 mg PO QAM RF: 0 aspirin [Aspir-81] 81 mg Tablet,Delayed Release (Dr/Ec) 81 mg PO QAM RF: 0 Discharge Problem: Diarrhea Qualifiers: Diarrhea type: unspecified type Qualified Code(s): R19.7 - Diarrhea, unspecified The cristianibe's documentation has been prepared under my direction and personally reviewed by me in its entirety. I confirm that the note above accurately reflects all work, treatment, procedures, and medical decision making performed by me.
[2019-09-20 16:14] LABS: Appearance Urine Clear (Clear); Bacteria Urine Automated Negative (Negative); Bilirubin Urine Negative (Negative); Blood Urine Negative (Negative); Color Urine Dark Yellow; Epithelial Cell Urine Auto >30 /lpf (0-5); Glucose Urine UA Negative (Negative); Ketones Urine 1+ (Negative); Leukocyte Esterase Urine Trace (Negative); Nitrite Urine Negative (Negative); Protein Urine Negative (Negative); RBC Urine Automated 0-4 /hpf (0-4); Specific Gravity Urine > 1.045 (1.000-1.030); Urobilinogen Urine Negative (Negative); pH Urine 7.5 (4.5-7.5)
[2019-09-20] MEDS ORDERED: ALUMINUM/MAGNESIUM SUSP 30 ML UDC PO PRN (16:57)
[2019-09-20] MEDS ORDERED: ENOXAPARIN INJ 40 MG/0.4 ML SYR SQ SCH (16:57)
[2019-09-20] MEDS ORDERED: MAGNESIUM HYDROXIDE SUSP 30 ML UDC PO PRN (16:57)
[2019-09-20] MEDS ORDERED: ZOLPIDEM TARTRATE 5 MG TAB PO PRN (16:57)
[2019-09-20] MEDS ORDERED: POTASSIUM CHLORIDE 20 MEQ TABCR PO STA (16:57)
[2019-09-20] MEDS ORDERED: SODIUM CHLORIDE 0.9% 250 ML IV PRN (16:57)
[2019-09-20] MEDS: fentaNYL 25 MCG/HR TDSY TD SCH (17:21)
[2019-09-20] MEDS: ACETAMINOPHEN 325 MG TAB PO PRN (17:21)
[2019-09-20] MEDS ORDERED: OXYCODONE HCL IR 5 MG TAB (IMMEDIATE RELEASE) PO PRN (17:33)
[2019-09-20 17:39] LABS: Mean Corpuscular Hemoglobin 25.4 pg (25-34); Mean Corpuscular Volume 79.4 fL (80-100); Mean Platelet Volume 8.6 fL (7.4-10.4); Nucleated RBC # (auto) 0.02 K/uL (0-0); Nucleated RBC % (auto) 0.2 %; Platelet Count 329 K/uL (130-400); RDW Coefficient of Variation 17.8 % (11.5-14.5); RDW Standard Deviation 50.8 fL (36.4-46.3); Red Blood Count 3.15 M/uL (4.2-5.4); White Blood Count 10.08 K/uL (4.8-10.8)
[2019-09-20 18:00] LABS: Cdiff Antigen Negative; Cdiff Toxin A+B Negative Cdiff Toxin (Negative)
[2019-09-20] MEDS: OXYCODONE HCL IR 5 MG TAB (IMMEDIATE RELEASE) PO PRN (18:10)
[2019-09-20] MEDS: ERTAPENEM SODIUM 1,000 MG in SODIUM CHLORIDE 0.9% 50 ML IV SCH (18:11)
[2019-09-20] MEDS: NSS + 20MEQ KCL 20 MEQ/1,000 ML BAG IV SCH (18:11)
[2019-09-20] MEDS: PROMETHAZINE HCL 25 MG in SODIUM CHLORIDE 0.9% 50 ML IV PRN (18:11)
[2019-09-20 18:12] LABS: Alanine Aminotransferase < 6 U/L (12-78); Albumin Level 2.1 gm/dl (3.4-5.0); Aspartate Aminotransferase 8 U/L (15-37); BUN Creatinine Ratio 20.6 (10-20); Basophils # (auto) 0.01 K/uL (0-0.2); Basophils % (auto) 0.1 %; Blood Urea Nitrogen 11 mg/dl (7-18); Calcium 7.7 mg/dl (8.5-10.1); Carbon Dioxide 29 mmol/L (21-32); Chloride 101 mmol/L (98-107); Creatinine Clr Calc Pharmacy 78.1 ml/min; Eosinophils # (auto) 0.07 K/uL (0-0.5); Eosinophils % (auto) 0.7 %; Est GFR (African American) 107.5; Est GFR (Non-African American) 92.8; Glucose 85 mg/dl (70-99); Immature Granulocytes # (auto) 0.12 K/uL (0.00-0.02); Immature Granulocytes % (auto) 1.2 %; Lymphocytes # (auto) 1.13 K/uL (1.2-3.4); Lymphocytes % (auto) 11.2 %; Monocytes # (auto) 0.86 K/uL (0.11-0.59); Monocytes % (auto) 8.5 %; Neutrophils # (auto) 7.89 K/uL (1.4-6.5); Neutrophils % (auto) 78.3 %; Poikilocytosis Present; Potassium 2.9 mmol/L (3.5-5.1); Sodium 133 mmol/L (136-145)
[2019-09-20 18:15] LABS: Albumin Globulin Ratio 0.6 (0.9-2); Alkaline Phosphatase 68 U/L (45-117); Bilirubin,Total 0.3 mg/dl (0.2-1); Globulin 3.8 gm/dl (2.5-4.0); Total Protein 5.9 gm/dl (6.4-8.2)
[2019-09-20] MEDS: CHECK FENTANYL PATCH PLACEMENT SCH ×2 (18:17→23:59)
[2019-09-20] MEDS: CITALOPRAM 40 MG TAB PO SCH (18:17)
[2019-09-20] MEDS: NICOTINE 14 MG/24 HR PATCH TD SCH (18:18)
[2019-09-20] MEDS: PANTOprazole 40 MG TAB PO SCH (18:18)
[2019-09-20] MEDS: GEMFIBROZIL 600 MG TAB PO SCH (20:13)
[2019-09-21] MEDS: OXYCODONE HCL IR 5 MG TAB (IMMEDIATE RELEASE) PO PRN ×2 (02:17→09:49)
[2019-09-21] MEDS: PROMETHAZINE HCL 25 MG in SODIUM CHLORIDE 0.9% 50 ML IV PRN ×2 (02:22→13:50)
[2019-09-21] MEDS ORDERED: Nursing to Pharmacy Communication ONE (02:49)
[2019-09-21] MEDS ORDERED: MoRPHine SULFATE 2 MG/ML CARP ONE (05:37)
[2019-09-21] MEDS: LEVOTHYROXINE SODIUM 100 MCG TABLET PO SCH (05:39)
[2019-09-21 05:47] LABS: Hematocrit (blood only) 29.1 % (37-47); Mean Corpuscular Hemoglobin 25.4 pg (25-34); Mean Corpuscular Hgb Conc 30.9 g/dL (32-36); Mean Platelet Volume 8.7 fL (7.4-10.4); Platelet Count 371 K/uL (130-400); Red Blood Count 3.55 M/uL (4.2-5.4); White Blood Count 11.45 K/uL (4.8-10.8)
[2019-09-21 06:17] LABS: Basophils # (auto) 0.03 K/uL (0-0.2); Basophils % (auto) 0.3 %; Echinocytes 1+; Eosinophils # (auto) 0.15 K/uL (0-0.5); Eosinophils % (auto) 1.3 %; Immature Granulocytes % (auto) 1.7 %; Lymphocytes # (auto) 1.06 K/uL (1.2-3.4); Lymphocytes % (auto) 9.3 %; Monocytes % (auto) 8.7 %; Neutrophils # (auto) 9.01 K/uL (1.4-6.5); Neutrophils % (auto) 78.7 %
[2019-09-21 06:20] LABS: Alanine Aminotransferase < 6 U/L (12-78); Albumin Level 1.9 gm/dl (3.4-5.0); Aspartate Aminotransferase 8 U/L (15-37); BUN Creatinine Ratio 23.8 (10-20); Blood Urea Nitrogen 12 mg/dl (7-18); Calcium 8.2 mg/dl (8.5-10.1); Carbon Dioxide 26 mmol/L (21-32); Chloride 104 mmol/L (98-107); Creatinine Clr Calc Pharmacy 78.1 ml/min; Est GFR (African American) 107.5; Est GFR (Non-African American) 92.8; Glucose 79 mg/dl (70-99); Potassium 3.3 mmol/L (3.5-5.1); Sodium 138 mmol/L (136-145)
[2019-09-21 06:23] LABS: Albumin Globulin Ratio 0.5 (0.9-2); Alkaline Phosphatase 71 U/L (45-117); Bilirubin,Total 0.5 mg/dl (0.2-1); Globulin 3.9 gm/dl (2.5-4.0); Total Protein 5.8 gm/dl (6.4-8.2)
--- NOTE | 2019-09-21 09:15 | Hospitalist Progress Note ---
Date of Service September 21, 2019 Assessment & Plan (1) Diarrhea: Admit to [facility] on telemetry Vital signs every 4 hours. Patient BM have decrease in frequency. Will continue to monitor Gentle IV fluid hydration with normal saline Monitor CBC daily, CMP Will continue ertapenem for possible infectious colitis, since patient responded well last admission when she had diverticulitis. Stool for C. difficile pending and other cultures. Awaiting mag.. We will consult urology for distention of the right ureter of the midportion. Patient supposed to have IVP on Sunday as an outpatient, but now admitted. Awaiting input from gastroenterology for severe's wall thickening and inflammatory changes of the mid to lower rectum and sigmoid colon possibly of infectious or inflammatory etiology-colitis. DVT prophylaxis SCDs and teds since patient already has decreased red blood cell count and hemoglobin of 7.4. Patient is a full code. (2) Hypokalemia: Replenish potassium as needed to keep above 4. (3) Colitis: Keep n.p.o. Continue normal saline with potassium. Replenish electrolytes. Consult gastroenterology. (4) Acute dehydration: As discussed above. IV fluid hydration. will do a trial of clear liquid diet. (5) Situational depression: Stable for now.: Continue home medicine citalopram 40 mg p.o. every morning. Monitor for anxiety. (6) COPD (chronic obstructive pulmonary disease): DuoNebs every 4 hours as needed. Patient is right now on 2 L of oxygen for shortness of breath, which could be also related to her symptomatic anemia. Patient is not on oxygen at home (7) Anemia: Anemia of chronic disease is likely due to metastatic lung cancer, for bone marrow production of red blood cells, continuous infection either GI or urinary, recent chemotherapy for length lung cancer and radiation therapy for the replaced left hip. Patient agreed and signed a consent for 1 PRBC. Continue monitoring H&H. Hemoglobin improved to 9.0 will monitor in AM. (8) Adenocarcinoma of lung, stage 4: As discussed above. It is metastatic cancer to the bone. Patient is undergoing chemotherapy and appears to have side effects of recent chemotherapy. (9) Bone metastasis: As discussed above. At this point consult hematology oncology if any concern. (10) Cigarette smoker: Patient is not smoking anymore even though she smoked for years 1 to 2 packs/day. We offered her nicotine patch but she did not express wish to have the patch placed on. (11) Hyperlipidemia: Patient has elevated triglycerides. She is on gemfibrozil 600 mg p.o. twice daily. She is also on folic acid 1 mg p.o. every morning. (12) GERD (gastroesophageal reflux disease): Continue pantoprazole 40 mg p.o. every morning. Subjective Patient is 79 yo female reports feeling better. She states her pain has improved. She is also more hungry today. She would like to start a clear liquid diet. Patient denies any nausea, vomiting, diarrhea. Review of Systems Review of Systems: All systems reviewed & are unremarkable except as noted in HPI & below Physical Exam Physical Exam: Constitutional: WD/WN, vitals as above well developed, + ill appearing and + cachectic ENMT: external ear and nose normal, oropharynx normal Neck: trachea midline, no thyromegaly Respiratory: Auscultation: + wheezes Cardiovascular: Heart Sounds: normal S1, normal S2 and + murmur Vessels: dorsalis pedis pulses present Gastrointestinal (Abdomen): Inspection/Auscultation: + abdomen distended and normal bowel sounds Percussion/Palpation: soft, nontender Musculoskeletal: no cyanosis or clubbing, extremities motor strength 5/5 Skin: no rashes, warm and dry Neurologic: patellar DTR's 2+ bilat, sensation intact Psychiatric: A+Ox3, euthymic affect Lymphatic: no cervical or axillary lymphadenopathy Results & Data Vital Signs (Past 12 Hours) Vital Signs Temp Pulse Pulse Resp BP Pulse Ox 09/21/19 07:12 36.8 C 82 20 125/71 92 09/21/19 03:34 36.8 C 79 19 108/67 90 09/21/19 01:20 74 09/20/19 22:54 36.5 C 75 17 114/65 94 PG Care Time/CCT Total # of Minutes Spent Total Time Spent with Patient: Total time spent is greater than 50% in coordination of care (as documented) at patient's floor/unit and/or counseling patient: (1) Diarrhea Diarrhea type: unspecified type Qualified Code(s): R19.7 - Diarrhea, un specified (2) Adenocarcinoma of lung, stage 4 Laterality: unspecified laterality Qualified Code(s): C34.90 - Malignant neoplasm of unspecified part of unspecified bronchus or lung
[2019-09-21] MEDS: NSS + 20MEQ KCL 20 MEQ/1,000 ML BAG IV SCH (09:36)
[2019-09-21] MEDS: CHECK FENTANYL PATCH PLACEMENT SCH ×2 (09:36→17:02)
[2019-09-21] MEDS: GEMFIBROZIL 600 MG TAB PO SCH ×2 (09:37→20:59)
[2019-09-21] MEDS: ASPIRIN 81 MG ECTAB PO SCH (09:37)
[2019-09-21] MEDS: CITALOPRAM 40 MG TAB PO SCH (09:37)
[2019-09-21] MEDS: PANTOprazole 40 MG TAB PO SCH (09:37)
[2019-09-21] MEDS: NICOTINE 14 MG/24 HR PATCH TD SCH (09:38)
[2019-09-21] MEDS: FOLIC ACID 1 MG TAB PO SCH (09:38)
--- NOTE | 2019-09-21 10:12 | Gastrointestinal Consultation ---
Date of Consultation September 21, 2019 Assessment & Plan (1) Diarrhea: Diarrhea with left-sided evidence of inflammation on CT scan. Etiologies for diarrhea in this case would likely be infectious, certainly concerned of an infectious process either from a primary GI origin or systemically given the fact that she has a white count that is increasing as well as a left shift. Would recommend blood cultures as well as chest x-ray and urine culture if not performed. The C. difficile is difficult to interpret with the gene being positive, followed by a negative test, followed by again a positive, Toxin has been negative, although given the fact that she has metastatic lung adenocarcinoma and recent chemotherapy, may need to get infectious disease to comment on treatment or not. Other etiologies could be medication side effect from recent chemotherapy, ischemia would always be in the differential diagnosis, is likely not an acute onset of inflammatory diarrhea from something like inflammatory bowel disease. Diverticulitis is also common etiology. As well as with pain on the left side of her abdomen, it seems reasonable to continue antibiotics, currently on ertapenem. Would add p.o. vancomycin 125 mg 4 times daily as overlap until the C. difficile has been a bit clarified as well as giving her gene positivity in the setting of recent chemotherapy. Tolerating liquids fine. Continue symptomatic care, follow general stool cultures, replete electrolytes Dr. Kennedy will return tomorrow to assume care. History of Present Illness Attending Physician: Wily Leyva History of Present Illness Was asked to see this patient on behalf of Dr. Kennedy who we are covering for diarrhea and abnormal CT scan. 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 Post chemotherapy 3 weeks ago, then status post diverticulitis for 9 days after she had left hip replacement and radiation, COPD, osteopenia who was brought to the emergency room by her daughters stating that patient is not feeling very well has persistent diarrhea, malaise and generalized weakness, as well as continued abdominal pain. She states that ever since she started radiation therapy in July she has had loose stools that can occur to 3-5 times a day, does not contain her present with blood. She states the pain is the most important and/or reason that she did come to the ER as well as weakness. She feels better since presentation here, and is having less diarrhea. On presentation to the emergency room she was noted to have a CT scan that showed thickening and inflammatory changes of the rectum and sigmoid colon. As well as fluid in her bowel suggesting a diarrheal state. Patient stool was negative C. difficile September 10. She tested one-time positive for C. difficile gene H but negative for toxin which was on August 30, 2019, then tested negative for the C. difficile gene, and on this admission is positive for the gene but negative for the toxin. Upon presentation she was also hyponatremic, hypokalemic, and had low magnesium levels. She is also been following with urology, who recommended an IVP to be completed this week for hydronephrosis, and a recent UTI treated September 17 I believe this was treated as an outpatient with Macroramy. Labs are reviewed: WBCs 9.89, hemoglobin 7.6, hematocrit 24 platelets 344, sodium 134, potassium 2.6, chloride 99, BUN 12, creatinine 0.56, GFR 89.9, lactate 1.5, glucose 81, magnesium pending, troponin 0 0.015, lipase 19 Albumin 2. Urine was done September 17 and it was positive for leukocyte esterase and blood. Allergies Allergy/AdvReac Type Severity Reaction Status Date / Time nickel Allergy Intermediate Rash Verified 09/20/19 12:09 clarithromycin AdvReac Mild N/V Verified 09/20/19 12:09 codeine AdvReac Mild UPSET Verified 09/20/19 12:09 STOMACH hydrocodone AdvReac Mild N/V Verified 09/20/19 12:09 metronidazole [From Flagyl] AdvReac Mild Gastrointestinal Verified 09/20/19 12:09 Upset venlafaxine AdvReac Mild N/V Verified 09/20/19 12:09 Home Medications Home Medications Medication Instructions Recorded Confirmed Type citalopram 40 mg tablet 60 mg PO QAM #135 tab 04/11/19 09/20/19 History gemfibrozil 600 mg tablet 600 mg PO BID #180 tab 04/11/19 09/20/19 History acetaminophen [Acetaminophen Extra 1,000 mg PO Q8H PRN 07/30/19 09/20/19 History Strength] folic acid 1 mg PO QAM 08/04/19 09/20/19 History ondansetron HCl [Zofran] 4 mg PO TID PRN 08/30/19 09/20/19 History pantoprazole [Protonix] 40 mg PO QAM 08/30/19 09/20/19 History levothyroxine 100 mcg tablet 100 mcg PO QAM #90 tab 09/12/19 09/20/19 Rx oxycodone 5 mg tablet 5 mg PO Q6H PRN #40 tab 09/15/19 09/20/19 Rx nitrofurantoin 100 mg PO BID 5 Days #10 cap 09/19/19 09/20/19 Rx monohydrate/macrocrystals 100 mg capsule aspirin [Aspir-81] 81 mg PO QAM 09/20/19 09/20/19 History Patient History Medical History Adenocarcinoma, lung Arthritis Depression (Acute) Gastroesophageal reflux disease (Acute) History of bronchitis History of diverticulitis (Resolved) Hyperlipidemia Hypothyroidism (Acute) Irritable bowel syndrome (Acute) Lung cancer NEW DX Metastatic bone cancer radiation treatments completed 08/25/19. Osteoarthritis Pneumonia hx Surgical History History of cataract surgery RT/LEFT History of colonoscopy History of dilatation and curettage History of discectomy CERVICAL (GOOD ROM) History of repair of rotator cuff RT History of tooth extraction S/P section X 1 S/P hip replacement left. 07/02/2019. SAB with MAC. no issues. Family History Family/Other Family history of diabetes mellitus Brother Family hx of colon cancer Mother , age 66 Diabetes Cancer ovarian Coronary heart disease had acute [place] which led to her Sister Cancer Family/Other Breast cancer Father , age 49 Suicide Alcoholism Social History Preferred Language: Zambian Communication Ability: Effective Visual Impairment: No Limitations Hearing Ability: Normal Knot Cutter Required: No Beliefs That Will Affect Care: None marital status: Current Living Situation: Alone current occupational status: retired current occupation: worked at [employer] Other Information That Helps Us Care for You: No other: 1 daughter Feels Safe at Home: Yes Safety Concerns: Feels Safe At This Time Smoking Status: Current every day smoker Tobacco Type: cigarettes ; Age Started Using Tobacco: 21 ; packs per day: 0.5 ; Cigarettes Per Day: 5 ; Second Hand Exposure: No ; Hx Alcohol Use: No Hx Substance Use: No Childhood Exposure to Second-Hand Smoke: Yes (both parents) caffeine: Yes Dental Care, Regularly: No Seatbelt Use: always Review of Systems Review of Systems: All systems reviewed & are unremarkable except as noted in HPI & below Physical Exam Physical Exam: Normal active bowel sounds, soft, but mildly tender in left lower quadrant. No peripheral edema, appears chronically ill. Constitutional: WD/WN, vitals as above Cardiovascular: RRR, no murmur, no edema Results & Data Vital Signs (Past 12 Hours) Vital Signs Temp Pulse Pulse Resp BP Pulse Ox 09/21/19 07:12 36.8 C 82 20 125/71 92 09/21/19 03:34 36.8 C 79 19 108/67 90 09/21/19 01:20 74 09/20/19 22:54 36.5 C 75 17 114/65 94 (1) Diarrhea Diarrhea type: unspecified type Qualified Code(s): R19.7 - Diarrhea, unspecified
--- NOTE | 2019-09-21 10:30 | Urology Consultation ---
Date of Consultation September 21, 2019 Assessment & Plan (1) Hydronephrosis: Metastatic disease; acute rectal and colonic issues pertaining to treatment Stable, mild right hydronephrosis Lack of symptoms right now Plan for continued observation, no intervention History of Present Illness Attending Physician: Wily Leyva History of Present Illness 79-year-old female with an unfortunate medical history who was seen in our office earlier this week for her routine visit She subsequently was admitted with progressive lower abdominal and pelvic painlikely GI in origin Some improvement since admission Denies any dysuria or hematuria No CVA/flank pain Previously discussed mild right hydronephrosis with Dr. Street, they have elected to observe this CT upon arrival does not show any progression of that hydronephrosis Kidney function is stablecreatinine 0.5 Urine culture from the showing E. coli and diphtheroids Allergies Allergy/AdvReac Type Severity Reaction Status Date / Time nickel Allergy Intermediate Rash Verified 09/20/19 12:09 clarithromycin AdvReac Mild N/V Verified 09/20/19 12:09 codeine AdvReac Mild UPSET Verified 09/20/19 12:09 STOMACH hydrocodone AdvReac Mild N/V Verified 09/20/19 12:09 metronidazole [From Flagyl] AdvReac Mild Gastrointestinal Verified 09/20/19 12:09 Upset venlafaxine AdvReac Mild N/V Verified 09/20/19 12:09 Home Medications Home Medications Medication Instructions Recorded Confirmed Type citalopram 40 mg tablet 60 mg PO QAM #135 tab 04/11/19 09/20/19 History gemfibrozil 600 mg tablet 600 mg PO BID #180 tab 04/11/19 09/20/19 History acetaminophen [Acetaminophen Extra 1,000 mg PO Q8H PRN 07/30/19 09/20/19 History Strength] folic acid 1 mg PO QAM 08/04/19 09/20/19 History ondansetron HCl [Zofran] 4 mg PO TID PRN 08/30/19 09/20/19 History pantoprazole [Protonix] 40 mg PO QAM 08/30/19 09/20/19 History levothyroxine 100 mcg tablet 100 mcg PO QAM #90 tab 09/12/19 09/20/19 Rx oxycodone 5 mg tablet 5 mg PO Q6H PRN #40 tab 09/15/19 09/20/19 Rx nitrofurantoin 100 mg PO BID 5 Days #10 cap 09/19/19 09/20/19 Rx monohydrate/macrocrystals 100 mg capsule aspirin [Aspir-81] 81 mg PO QAM 09/20/19 09/20/19 History Patient History Medical History Adenocarcinoma, lung Arthritis Depression (Acute) Gastroesophageal reflux disease (Acute) History of bronchitis History of diverticulitis (Resolved) Hyperlipidemia Hypothyroidism (Acute) Irritable bowel syndrome (Acute) Lung cancer NEW DX Metastatic bone cancer radiation treatments completed 08/25/19. Osteoarthritis Pneumonia hx Surgical History History of cataract surgery RT/LEFT History of colonoscopy History of dilatation and curettage History of discectomy CERVICAL (GOOD ROM) History of repair of rotator cuff RT History of tooth extraction S/P section X 1 S/P hip replacement left. 07/02/2019. SAB with MAC. no issues. Family History Family/Other Family history of diabetes mellitus Brother Family hx of colon cancer Mother , age 66 Diabetes Cancer ovarian Coronary heart disease had acute [place] which led to her Sister Cancer Family/Other Breast cancer Father , age 49 Suicide Alcoholism Social History Preferred Language: Tajik Communication Ability: Effective Visual Impairment: No Limitations Hearing Ability: Normal Burnisher And Bumper Required: No Beliefs That Will Affect Care: None marital status: Current Living Situation: Alone current occupational status: retired current occupation: worked at [email or web address] Other Information That Helps Us Care for You: No other: 1 daughter Feels Safe at Home: Yes Safety Concerns: Feels Safe At This Time Smoking Status: Current every day smoker Tobacco Type: cigarettes ; Age Started Using Tobacco: 21 ; packs per day: 0.5 ; Cigarettes Per Day: 5 ; Second Hand Exposure: No ; Hx Alcohol Use: No Hx Substance Use: No Childhood Exposure to Second-Hand Smoke: Yes (both parents) caffeine: Yes Dental Care, Regularly: No Seatbelt Use: always Review of Systems Constitutional: no fever, no chills and no fatigue Eyes: no worsening vision Ear, Nose, Mouth, Throat: no facial pain and no pain with swallowing Respiratory: no cough and no dyspnea Cardiovascular: no chest pain and no palpitations Gastrointestinal: + abdominal pain and + constipation Genitourinary: no dysuria, no difficulty urinating, no urinary frequency and no hematuria Musculoskeletal: no back pain Integumentary: no rash and no urticaria Neurologic: no gait abnormality and no unsteadiness Psychiatric: no behavioral changes and no depression Endocrine: no fatigue Results & Data Vital Signs (Past 12 Hours) Vital Signs Temp Pulse Pulse Resp BP Pulse Ox 09/21/19 07:12 36.8 C 82 20 125/71 92 09/21/19 03:34 36.8 C 79 19 108/67 90 09/21/19 01:20 74 09/20/19 22:54 36.5 C 75 17 114/65 94 PG Care Time/CCT Total # of Minutes Spent Total Time Spent with Patient: Total time spent is greater than 50% in coordination of care (as documented) at patient's floor/unit and/or counseling patient: (1) Hydronephrosis Hydronephrosis type: unspecified Qualified Code(s): N13.30 - Unspecified hydronephrosis
[2019-09-21] MEDS: RASPBERRY SYRUP 5 ML UDP PO SCH ×2 (13:34→17:59)
[2019-09-21] MEDS: VANCOMYCIN HCL 125 MG/2.5ML SOLN PO SCH ×2 (13:34→17:58)
[2019-09-21] MEDS: MAGNESIUM OXIDE 400 MG TAB PO SCH ×2 (13:34→20:59)
[2019-09-21] MEDS: MoRPHine SULFATE 2 MG/ML CARP IV PRN (13:50)
--- NOTE | 2019-09-21 14:27 | Surgery Consultation ---
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 She had a bout of diverticulitis for 9 days after she had left hip replacement and radiation. She came into ED with not feeling very well has persistent diarrhea, malaise and generalized weakness, as well as continued abdominal pain. She states that ever since she started radiation therapy in July she has had loose stools that can occur to 3-5 times a day, does not contain her present with blood. A CT scan that showed thickening and inflammatory changes of the rectum and sigmoid colon and appears to have a contained perforation in the uterosacral region <6cm. She is also been following with urology, who recommended an IVP to be completed this week for hydronephrosis, and a recent UTI treated September 17 I believe this was treated as an outpatient with Macrobid. Allergies Allergy/AdvReac Type Severity Reaction Status Date / Time nickel Allergy Intermediate Rash Verified 09/20/19 12:09 clarithromycin AdvReac Mild N/V Verified 09/20/19 12:09 codeine AdvReac Mild UPSET Verified 09/20/19 12:09 STOMACH hydrocodone AdvReac Mild N/V Verified 09/20/19 12:09 metronidazole [From Flagyl] AdvReac Mild Gastrointestinal Verified 09/20/19 12:09 Upset venlafaxine AdvReac Mild N/V Verified 09/20/19 12:09 Home Medications Home Medications Medication Instructions Recorded Confirmed Type citalopram 40 mg tablet 60 mg PO QAM #135 tab 04/11/19 09/20/19 History gemfibrozil 600 mg tablet 600 mg PO BID #180 tab 04/11/19 09/20/19 History acetaminophen [Acetaminophen Extra 1,000 mg PO Q8H PRN 07/30/19 09/20/19 History Strength] folic acid 1 mg PO QAM 08/04/19 09/20/19 History ondansetron HCl [Zofran] 4 mg PO TID PRN 08/30/19 09/20/19 History pantoprazole [Protonix] 40 mg PO QAM 08/30/19 09/20/19 History levothyroxine 100 mcg tablet 100 mcg PO QAM #90 tab 09/12/19 09/20/19 Rx oxycodone 5 mg tablet 5 mg PO Q6H PRN #40 tab 09/15/19 09/20/19 Rx nitrofurantoin 100 mg PO BID 5 Days #10 cap 09/19/19 09/20/19 Rx monohydrate/macrocrystals 100 mg capsule aspirin [Aspir-81] 81 mg PO QAM 09/20/19 09/20/19 History Patient History Medical History Adenocarcinoma, lung Arthritis Depression (Acute) Gastroesophageal reflux disease (Acute) History of bronchitis History of diverticulitis (Resolved) Hyperlipidemia Hypothyroidism (Acute) Irritable bowel syndrome (Acute) Lung cancer NEW DX Metastatic bone cancer radiation treatments completed 08/25/19. Osteoarthritis Pneumonia hx Surgical History History of cataract surgery RT/LEFT History of colonoscopy History of dilatation and curettage History of discectomy CERVICAL (GOOD ROM) History of repair of rotator cuff RT History of tooth extraction S/P section X 1 S/P hip replacement left. 07/02/2019. SAB with MAC. no issues. 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 Beliefs That Will Affect Care: None marital status: Current Living Situation: Alone current occupational status: retired current occupation: worked at [employer] Other Information That Helps Us Care for You: No other: 1 daughter Feels Safe at Home: Yes Safety Concerns: Feels Safe At This Time Smoking Status: Current every day smoker Tobacco Type: cigarettes ; Age Started Using Tobacco: 21 ; packs per day: 0.5 ; Cigarettes Per Day: 5 ; Second Hand Exposure: No ; Hx Alcohol Use: No Hx Substance Use: No Childhood Exposure to Second-Hand Smoke: Yes (both parents) caffeine: Yes Dental Care, Regularly: No Seatbelt Use: always Review of Systems Constitutional: + body aches, + fatigue, + malaise and + weakness; no fever and no chills Respiratory: no cough, no chest congestion and no dyspnea Cardiovascular: no chest pain, no chest pain at rest and no chest pain with activity Gastrointestinal: + abdominal pain, + nausea, + change in bowel habits and + diarrhea/loose stools; no vomiting Genitourinary: no dysuria Musculoskeletal: no back pain, no neck pain and no joint pain Physical Exam Constitutional: + thin Neck: trachea midline Respiratory: normal respiratory effort, lungs clear to auscultation Cardiovascular: RRR, no murmur, no edema Gastrointestinal (Abdomen): Inspection/Auscultation: abdomen normal to inspection, + abdomen distended and normal bowel sounds Percussion/Palpation: + abdomen tender; no guarding and abdomen not rigid Musculoskeletal: Head/Neck/Chest: + head abnormal to inspection and normocephalic Skin: no rashes, warm and dry Psychiatric: Orientation: alert and oriented x 3 Results & Data Vital Signs (Past 12 Hours) Vital Signs Temp Pulse Pulse Resp BP Pulse Ox 09/21/19 11:18 37.3 C 80 20 116/65 92 09/21/19 08:00 77 09/21/19 07:12 36.8 C 82 20 125/71 92 09/21/19 03:34 36.8 C 79 19 108/67 90 Diagnostic Findings Addendum: A complex perirectal gas and fluid containing collection is extraluminal. This extends to the presacral space as well as the rectouterine space. This suggests a contained perforation. Findings discussed with Dr. Escalante at time of addendum. Electronically signed by: Александр Garay M.D. 09/21/2019 1:[address] abd pelvis IV con only CLINICAL HISTORY: 79 years-old Female presenting with diffuse abdominal pain, worse LLQ. TECHNIQUE: Multidetector CT of the abdomen and pelvis was performed after the administration of intravenous contrast. IV contrast: 93 mL of Optiray 320. One or more dose lowering techniques were used consistent with the principles of ALARA (as low as reasonably achievable), including automatic exposure control, mA or kV adjustment to individual patient size, and/or use of iterative reconstruction. COMPARISON: 08/30/2019. CT DOSE (mGy.cm): The estimated cumulative dose is 281.39 mGy.cm. FINDINGS: Direct Support Specialist topogram: Orthopedic hardware. Lung bases: Normal heart size. Coronary artery calcification. Small to moderate pericardial effusion, stable from prior. Small right and trace left pleural effusions. Interlobular septal thickening and pulmonary vascular prominence at the lung bases suggesting congestive change. Liver: Normal morphology. Hypodensity along the fissure for the falciform ligament possibly perfusional variation or focal fat. Patent hepatic vasculature. Biliary: No intrahepatic or extrahepatic biliary ductal dilatation. Gallbladder contains gallstones. The gallbladder is distended without evidence of tension. No gallbladder wall thickening or pericholecystic fluid or inflammatory change. Pancreas: Normal. Spleen: Normal. Adrenal glands: Thickening of the adrenal gland on the left as on prior exam. Suspected underlying nodule poorly demonstrated on this study. Right adrenal gland normal. Kidneys and ureters: Persistent mild pelvocaliectasis of the right kidney with distention of the right ureter to the level of the pelvic brim. At this site, the ureter is not well delineated and not grossly dilated in the distal portion. Few cysts noted bilaterally. No left hydronephrosis. No nephrolithiasis. Left ureter nondistended. Bladder: Incompletely evaluated secondary to underdistention. Pelvic organs: Degenerated fibroid may be present in the uterus. The right ovary is enlarged for the patient's postmenopausal status though unchanged since the most recent prior exam. Left ovary poorly delineated. Bowel: Interval development of severe wall thickening of the mid to lower rectum. There is also severe wall thickening along the majority of the sigmoid colon, which has significantly progressed from prior. There is upstream fluid in the colon, which is not significantly distended. The appendix is not well delineated though may be mildly thick-walled (series 3 image 251). No bowel obstruction. Small sliding type hiatal hernia. Peritoneal cavity: No free fluid or intraperitoneal gas. Lymph nodes: No enlarged lymph nodes in the abdomen or pelvis. Vasculature: Atherosclerosis of the normal caliber abdominal aorta. IVC patent. Abdominal wall: Mild body wall edema. Musculoskeletal: Total left hip arthroplasty. Mild degenerative changes of the spine. IMPRESSION: 1. Interval development of severe wall thickening and inflammatory change of th e mid to lower rectum and sigmoid colon. Given the rapidity of this occurrence, this is is evidence of an infectious or inflammatory colitis. An ischemic etiology is considered unlikely. 2. Up stream fluid in the large bowel suggests a diarrheal state. No bowel obstruction. 3. The appendix appears thick-walled, which may relate to the presence of the colitis. Correlate for right upper quadrant symptoms to exclude appendicitis, which is not favored. 4. Enlarged right ovary as on prior exam. Consider nonurgent outpatient follow- up pelvic ultrasound as this is unexpected for a postmenopausal female. 5. Persistent mild right pelvocaliectasis and distention of the right ureter to the level of the midportion. No convincing evidence of an obstructing calculus or mass. Attention on follow-up. This may be secondary to the presence of an inflammatory process elsewhere in the pelvis versus a primary ureteral etiology. 6. Volume overload with congestive changes at the lung bases, persistent pericardial effusion, trace pleural effusions, and body wall edema. 7. Cholelithiasis.
[2019-09-21] MEDS: ERTAPENEM SODIUM 1,000 MG in SODIUM CHLORIDE 0.9% 50 ML IV SCH (17:58)
[2019-09-22] MEDS: MoRPHine SULFATE 2 MG/ML CARP IV PRN (00:32)
[2019-09-22] MEDS: CHECK FENTANYL PATCH PLACEMENT SCH ×3 (00:49→16:30)
[2019-09-22] MEDS: RASPBERRY SYRUP 5 ML UDP PO SCH ×3 (00:49→12:49)
[2019-09-22] MEDS: VANCOMYCIN HCL 125 MG/2.5ML SOLN PO SCH ×3 (00:50→12:49)
[2019-09-22] MEDS: HEPARIN 100 UNIT/ML 5ML FLUSH FLUSH PRN ×3 (00:51→18:34)
[2019-09-22 06:05] LABS: Hematocrit (blood only) 28.5 % (37-47); Hemoglobin 8.9 g/dL (12.0-16.0); Mean Corpuscular Hemoglobin 25.7 pg (25-34); Mean Corpuscular Hgb Conc 31.2 g/dL (32-36); Mean Corpuscular Volume 82.4 fL (80-100); Mean Platelet Volume 8.6 fL (7.4-10.4); Platelet Count 432 K/uL (130-400); RDW Coefficient of Variation 17.4 % (11.5-14.5); RDW Standard Deviation 52.2 fL (36.4-46.3); Red Blood Count 3.46 M/uL (4.2-5.4); White Blood Count 11.49 K/uL (4.8-10.8)
[2019-09-22] MEDS: LEVOTHYROXINE SODIUM 100 MCG TABLET PO SCH (06:05)
[2019-09-22 06:25] LABS: Basophils # (auto) 0.03 K/uL (0-0.2); Basophils % (auto) 0.3 %; Echinocytes 1+; Eosinophils % (auto) 2.6 %; Immature Granulocytes # (auto) 0.72 K/uL (0.00-0.02); Immature Granulocytes % (auto) 6.3 %; Lymphocytes # (auto) 0.92 K/uL (1.2-3.4); Monocytes # (auto) 1.31 K/uL (0.11-0.59); Monocytes % (auto) 11.4 %; Neutrophils # (auto) 8.21 K/uL (1.4-6.5); Neutrophils % (auto) 71.4 %; Toxic Vacuolation Occasional
[2019-09-22 06:42] LABS: Albumin Level 1.9 gm/dl (3.4-5.0); BUN Creatinine Ratio 20.8 (10-20); Calcium 7.9 mg/dl (8.5-10.1); Creatinine Clr Calc Pharmacy 73.8 ml/min; Est GFR (African American) 105.5; Potassium 3.4 mmol/L (3.5-5.1)
[2019-09-22 06:45] LABS: Albumin Globulin Ratio 0.5 (0.9-2); Bilirubin,Total 0.3 mg/dl (0.2-1); Globulin 3.7 gm/dl (2.5-4.0); Total Protein 5.6 gm/dl (6.4-8.2)
[2019-09-22] MEDS: GEMFIBROZIL 600 MG TAB PO SCH (08:22)
[2019-09-22] MEDS: MAGNESIUM OXIDE 400 MG TAB PO SCH ×2 (08:22→20:45)
[2019-09-22] MEDS: OXYCODONE HCL IR 5 MG TAB (IMMEDIATE RELEASE) PO PRN ×2 (08:22→18:34)
[2019-09-22] MEDS: ASPIRIN 81 MG ECTAB PO SCH (08:22)
[2019-09-22] MEDS: CITALOPRAM 40 MG TAB PO SCH (08:22)
[2019-09-22] MEDS: PANTOprazole 40 MG TAB PO SCH (08:22)
[2019-09-22] MEDS: NICOTINE 14 MG/24 HR PATCH TD SCH (08:23)
[2019-09-22] MEDS: FOLIC ACID 1 MG TAB PO SCH (08:23)
--- NOTE | 2019-09-22 09:32 | Infectious Disease Consult ---
Date of Consultation September 22, 2019 Assessment & Plan (1) Diverticular disease of intestine with perforation and abscess: would continue Ertapnem, if toleratng po could change to augmentin, no blood cultures done. would give 21 days abx. c diff is negative, can stop vanco. If clinically worsening plan is for transfer. History of Present Illness Attending Physician: Jayy Madrid MD pt admitted with abd pain and diarrhea, was found to have diverticulitis and abscess on ct. on ertapenem. surgery and GI following, no plans for OR eating clears today, tolerating. stool culture negative. c diff gene +, toxin negative, however is on po vanco. wbc 11, creat 0.3, UA negative. afebrile since admission, feeling better overall. no abd pain currenlty, no n/v. still with loose stool but improving, no cp, sob, cough. Allergies Allergy/AdvReac Type Severity Reaction Status Date / Time nickel Allergy Intermediate Rash Verified 09/20/19 12:09 clarithromycin AdvReac Mild N/V Verified 09/20/19 12:09 codeine AdvReac Mild UPSET Verified 09/20/19 12:09 STOMACH hydrocodone AdvReac Mild N/V Verified 09/20/19 12:09 metronidazole [From Flagyl] AdvReac Mild Gastrointestinal Verified 09/20/19 12:09 Upset venlafaxine AdvReac Mild N/V Verified 09/20/19 12:09 Home Medications Home Medications Medication Instructions Recorded Confirmed Type citalopram 40 mg tablet 60 mg PO QAM #135 tab 04/11/19 09/20/19 History gemfibrozil 600 mg tablet 600 mg PO BID #180 tab 04/11/19 09/20/19 History acetaminophen [Acetaminophen Extra 1,000 mg PO Q8H PRN 07/30/19 09/20/19 History Strength] folic acid 1 mg PO QAM 08/04/19 09/20/19 History ondansetron HCl [Zofran] 4 mg PO TID PRN 08/30/19 09/20/19 History pantoprazole [Protonix] 40 mg PO QAM 08/30/19 09/20/19 History levothyroxine 100 mcg tablet 100 mcg PO QAM #90 tab 12/13/19 12/21/19 Rx oxycodone 5 mg tablet 5 mg PO Q6H PRN #40 tab 09/15/19 09/20/19 Rx nitrofurantoin 100 mg PO BID 5 Days #10 cap 09/19/19 09/20/19 Rx monohydrate/macrocrystals 100 mg capsule aspirin [Aspir-81] 81 mg PO QAM 09/20/19 09/20/19 History Patient History Medical History Adenocarcinoma, lung Arthritis Depression (Acute) Gastroesophageal reflux disease (Acute) History of bronchitis History of diverticulitis (Resolved) Hyperlipidemia Hypothyroidism (Acute) Irritable bowel syndrome (Acute) Lung cancer NEW DX Metastatic bone cancer radiation treatments completed 08/25/19. Osteoarthritis Pneumonia hx Surgical History History of cataract surgery RT/LEFT History of colonoscopy History of dilatation and curettage History of discectomy CERVICAL (GOOD ROM) History of repair of rotator cuff RT History of tooth extraction S/P section X 1 S/P hip replacement left. 07/02/2019. SAB with MAC. no issues. 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 Beliefs That Will Affect Care: None marital status: Current Living Situation: Alone current occupational status: retired current occupation: worked at [employer] Other Information That Helps Us Care for You: No other: 1 daughter Feels Safe at Home: Yes Safety Concerns: Feels Safe At This Time Smoking Status: Current every day smoker Tobacco Type: cigarettes ; Age Started Using Tobacco: 21 ; packs per day: 0.5 ; Cigarettes Per Day: 5 ; Second Hand Exposure: No ; Hx Alcohol Use: No Hx Substance Use: No Childhood Exposure to Second-Hand Smoke: Yes (both parents) caffeine: Yes Dental Care, Regularly: No Seatbelt Use: always Review of Systems Review of Systems: All systems reviewed & are unremarkable except as noted in HPI & below Physical Exam Constitutional: WD/WN, vitals as above Eyes: PERRL, conjunctivae normal, anicteric sclerae ENMT: external ear and nose normal, oropharynx normal Neck: normal visual inspection Respiratory: normal respiratory effort, lungs clear to auscultation Cardiovascular: RRR, no murmur, no edema Gastrointestinal (Abdomen): Inspection/Auscultation: abdomen normal to inspection and + abdomen distended Percussion/Palpation: abdomen soft; abdomen nontender, no guarding and abdomen not rigid Musculoskeletal: no cyanosis or clubbing, extremities motor strength 5/5 Skin: no rashes, warm and dry Psychiatric: A+Ox3, euthymic affect Results & Data Vital Signs (Past 12 Hours) Vital Signs Temp Pulse Pulse Resp BP BP Pulse Ox 09/22/19 06:43 36.5 C 83 18 143/75 H 95 09/22/19 04:15 93 09/22/19 04:09 36.6 C 83 18 113/66 89 L 09/21/19 22:39 36.7 C 84 19 128/73 90 09/21/19 22:22 81 Laboratory Results Microbiology 09/20/19 Unknown Stool Escherichia coli Shiga Toxins Test - Preliminary 09/20/19 Unknown Stool Stool Culture - Preliminary No Salmonella isolated to date, No Shigella isolated to date, No Campylobacter jejuni isolated to date. PG Care Time/CCT Total # of Minutes Spent Total Time Spent with Patient: Total time spent is greater than 50% in coordination of care (as documented) at patient's floor/unit and/or counseling patient:
--- NOTE | 2019-09-22 09:37 | Gastroenterology Progress Note ---
Date of Service September 22, 2019 Assessment & Plan (1) Diverticular disease of intestine with perforation and abscess: 1. Continue antibiotics per ID recommendations. 2. Continue clear liquid diet. 3. Continue supportive care. Supervising Physician Co-Signing Physician Notes I personally evaluated the patient and agree with the findings as documented by KAYY Ramirez Exam: abd: soft, nt, nd Subjective Patient reports improved abdominal pain. No fevers, or n/v. Patient has been seen by ID. Vancomycin has been discontinued but Ertapenem has been continued. Mild leukocytosis. General surgery is following patient as well. Review of Systems Constitutional: as per Subjective / HPI Respiratory: no problem reported Cardiovascular: no problem reported Gastrointestinal: as per Subjective / HPI Physical Exam Constitutional: WD/WN, vitals as above Gastrointestinal (Abdomen): Inspection/Auscultation: + abdomen distended and + hyperactive bowel sounds Percussion/Palpation: + abdomen tender and abdomen soft Psychiatric: A+Ox3, euthymic affect Results & Data Vital Signs (Past 12 Hours) Vital Signs Temp Pulse Pulse Resp BP BP Pulse Ox 09/22/19 06:43 36.5 C 83 18 143/75 H 95 09/22/19 04:15 93 09/22/19 04:09 36.6 C 83 18 113/66 89 L 09/21/19 22:39 36.7 C 84 19 128/73 90 09/21/19 22:22 81 Laboratory Results Abnormal lab results 09/22/19 09/22/19 Range/Units 05:55 05:55 WBC 11.49 H (4.8-10.8) K/uL RBC 3.46 L (4.2-5.4) M/uL Hgb 8.9 L (12.0-16.0) g/dL Hct 28.5 L (37-47) % MCHC 31.2 L (32-36) g/dL RDW Std Deviation 52.2 H (36.4-46.3) fL RDW Coeff of Raymundo 17.4 H (11.5-14.5) % Plt Count 432 H (130-400) K/uL Immature Gran # (Auto) 0.72 H (0.00-0.02) K/uL Neut # (Auto) 8.21 H (1.4-6.5) K/uL Lymph # (Auto) 0.92 L (1.2-3.4) K/uL Clark # (Auto) 1.31 H (0.11-0.59) K/uL Potassium 3.4 L (3.5-5.1) mmol/L Creatinine 0.54 L (0.6-1.2) mg/dl BUN/Creatinine Ratio 20.8 H (10-20) Calcium 7.9 L (8.5-10.1) mg/dl AST 10 L (15-37) U/L ALT 6 L (12-78) U/L Total Protein 5.6 L (6.4-8.2) gm/dl Albumin 1.9 L (3.4-5.0) gm/dl Albumin/Globulin Ratio 0.5 L (0.9-2) PG Care Time/CCT Total # of Minutes Spent Total Time Spent with Patient: Total time spent is greater than 50% in coordination of care (as documented) at patient's floor/unit and/or counseling patient:
--- NOTE | 2019-09-22 10:00 | Urology Progress Note ---
Date of Service September 22, 2019 Assessment & Plan (1) Hydronephrosis: 79yo F with Metastatic disease; acute rectal and colonic issues pertaining to treatment Stable, mild right hydronephrosis Continues to be asymptomatic from perspective. Cr stable, voiding spontaneously Please contact our service urgently if patient develops fever >101F, intractable pain or nausea, as this may necessitate urgent surgical intervention. Thank you for allowing us to participate in the acute care of Mrs. Burgos. Please reconsult us with additional questions, concerns or changes in patient status. We will arrange for outpatient followup. Subjective Pt sleeping in bed, easily arousable to verbal stimulation this AM. Denies any pain, n/v/f/c. VSS, afebrile. Voiding without difficulty denies dysuria, hematuria. Review of Systems Review of Systems: All systems reviewed & are unremarkable except as noted in HPI & below Physical Exam Constitutional: + thin and + frail appearing; no acute distress, not ill appearing and not in distress Eyes: no nystagmus ENMT: Ears: no hearing impairment Neck: trachea midline Respiratory: no respiratory distress and no cough Cardiovascular: Vessels: no JVD Chest (Breasts): Chest: normal inspection of chest Gastrointestinal (Abdomen): Inspection/Auscultation: abdomen not distended and no abdominal edema Percussion/Palpation: abdomen soft; abdomen nontender Musculoskeletal: Head/Neck/Chest: normocephalic and head atraumatic Skin: no rashes, warm and dry Neurologic: awake; not confused and not obtunded Psychiatric: Orientation: alert and oriented x 3 Eye Contact: good eye contact Affect: no depressed affect Lymphatic: no lymphadenopathy and no lymphedema Results & Data Vital Signs (Past 12 Hours) Vital Signs Temp Pulse Pulse Resp BP BP Pulse Ox 09/22/19 06:43 36.5 C 83 18 143/75 H 95 09/22/19 04:15 93 09/22/19 04:09 36.6 C 83 18 113/66 89 L 09/21/19 22:39 36.7 C 84 19 128/73 90 09/21/19 22:22 81 PG Care Time/CCT Total # of Minutes Spent Total Time Spent with Patient: Total time spent is greater than 50% in coordination of care (as documented) at patient's floor/unit and/or counseling patient: (1) Hydronephrosis Hydronephrosis type: unspecified Qualified Code(s): N13.30 - Unspecified hydronephrosis
[2019-09-22] MEDS: ERTAPENEM SODIUM 1,000 MG in SODIUM CHLORIDE 0.9% 50 ML IV SCH (17:54)
--- NOTE | 2019-09-22 18:50 | Surgery Progress Note ---
Date of Service September 22, 2019 Assessment & Plan (1) Diverticular disease of intestine with perforation and abscess: afebrile no abdominal pain, n/v abdomen benign, soft, nontender Plan: Continue IV abx and IVF advance diet as tolerated if worsens will need transfer for possible IR drainage Dr. hernandez has seen patient, agrees with above. Subjective feeling better today having no abdominal pain no nausea or vomiting tolerated clear liquids today without any pain, n/v Physical Exam Constitutional: WD/WN, vitals as above no acute distress Gastrointestinal (Abdomen): Inspection/Auscultation: abdomen normal to inspection; abdomen not distended Percussion/Palpation: abdomen soft; abdomen nontender, no guarding and abdomen not rigid Skin: no rashes, warm and dry Psychiatric: A+Ox3, euthymic affect Results & Data Vital Signs (Past 12 Hours) Vital Signs Temp Pulse Pulse Resp BP Pulse Ox 09/22/19 15:30 78 09/22/19 14:57 36.6 C 78 20 120/73 96 09/22/19 11:03 36.7 C 82 20 120/77 96 09/22/19 09:00 78 Laboratory Results 09/22/19 09/22/19 Range/Units 05:55 05:55 WBC 11.49 H (4.8-10.8) K/uL RBC 3.46 L (4.2-5.4) M/uL Hgb 8.9 L (12.0-16.0) g/dL Hct 28.5 L (37-47) % MCV 82.4 (80-100) fL MCH 25.7 (25-34) pg MCHC 31.2 L (32-36) g/dL RDW Std Deviation 52.2 H (36.4-46.3) fL RDW Coeff of Raymundo 17.4 H (11.5-14.5) % Plt Count 432 H (130-400) K/uL MPV 8.6 (7.4-10.4) fL Immature Gran % (Auto) 6.3 % Neut % (Auto) 71.4 % Lymph % (Auto) 8.0 % [place] % (Auto) 11.4 % Eos % (Auto) 2.6 % Baso % (Auto) 0.3 % Immature Gran # (Auto) 0.72 H (0.00-0.02) K/uL Neut # (Auto) 8.21 H (1.4-6.5) K/uL Lymph # (Auto) 0.92 L (1.2-3.4) K/uL [place] # (Auto) 1.31 H (0.11-0.59) K/uL Eos # (Auto) 0.30 (0-0.5) K/uL Baso # (Auto) 0.03 (0-0.2) K/uL Toxic Vacuolation Occasional Echinocytes 1+ Sodium 138 (136-145) mmol/L Potassium 3.4 L (3.5-5.1) mmol/L Chloride 105 (98-107) mmol/L Carbon Dioxide 27 (21-32) mmol/L Anion Gap 6.0 (3-11) BUN 11 (7-18) mg/dl Creatinine 0.54 L (0.6-1.2) mg/dl Est Cr Clr Drug Dosing 73.8 ml/min Est GFR ( Amer) 105.5 Est GFR (Non-Af Amer) 91.0 BUN/Creatinine Ratio 20.8 H (10-20) Glucose 81 (70-99) mg/dl Calcium 7.9 L (8.5-10.1) mg/dl Total Bilirubin 0.3 (0.2-1) mg/dl AST 10 L (15-37) U/L ALT 6 L (12-78) U/L Alkaline Phosphatase 75 (45-117) U/L Total Protein 5.6 L (6.4-8.2) gm/dl Albumin 1.9 L (3.4-5.0) gm/dl Globulin 3.7 (2.5-4.0) gm/dl Albumin/Globulin Ratio 0.5 L (0.9-2)
--- NOTE | 2019-09-22 19:41 | Hospitalist Progress Note ---
Date of Service September 22, 2019 Assessment & Plan (1) Diverticulitis of colon with perforation: Continue IV ertapenem. Given continuing reoccurrence, need for ongoing chemotherapy and quick reoccurrence after Augmentin given with first episode (on hip fracture admission) will continue to treat with ertapenem. 21 day course recommended by ID, applied for insurance authorization today (patient previously had this at home). She reports much quicker resolution of her symptoms this time around compared to her last admission however will advance diet slowly as on this occasion she also has a perforation. Will d/c morphine in anticipation of discharge. Diet advanced to full liquids. Appreciate GI and surgery recommendations - if all in agreement and patient tolerating full liquid diet will aim to discharge tomorrow. D/c treatment for c. diff as per ID recommendations. Although having ongoing watery stool she had this with her last admission in addition and resolved fully with ertapenem (up until chemotherapy given). Will update her oncologist prior to d/c to plan further chemotherapy as likely this would have to be delayed. (2) Diarrhea: as above. (3) Acute dehydration: Tolerating liquids. D/c IV fluids. No KIYA (4) Situational depression: Stable for now: Continue home medicine citalopram 40 mg p.o. every morning. Monitor for anxiety. (5) COPD (chronic obstructive pulmonary disease): Emphysema noted on CT chest in July. On no maintenance inhalers. No PFTs in [facility]. No wheezing on exam. (6) Anemia: Anemia of chronic disease, bone marrow suppression, post op left hip ORIF (07/2019). s/p 1 unit PRBCs 09/20 due to concern symptomatic from Hgb 7.6. Sta ble since. (7) Adenocarcinoma of lung, stage 4: As discussed above. It is metastatic cancer to the bone. Patient is undergoing chemotherapy and appears to have side effects of recent chemotherapy. (8) Bone metastasis: As discussed above. At this point consult hematology oncology if any concern. (9) Cigarette smoker: Patient is not smoking anymore even though she smoked for years 1 to 2 packs/day. We offered her nicotine patch but she did not express wish to have the patch placed on. (10) Hyperlipidemia: Last triglycerides in 2017 72, repeat in AM to make sure not very elevated. Will d/c gemfibrozil as unlikely having significant benefit and possible harm with muscle toxicity. (11) GERD (gastroesophageal reflux disease): Continue pantoprazole 40 mg p.o. every morning. (12) Severe protein-calorie malnutrition: MVI added as per nutrition recommendations. Pt previously intolerant to Boost supplementation. If tolerating full liquid diet today can advance to pureed, low fiber diet for breakfast. (13) Pericardial effusion: Stable from prior, suspected secondary to metastatic disease and IV fluids given while NPO. (14) DVT prophylaxis: Unclear why not on chemoprophylaxis from prior notes. High risk due to metastatic lung adenocarcinoma. Will add lovenox 40mg SQ daily. Continue SCDs. (15) Discharge planning issues: Lives with grandson at home. Previously sent home physical therapist away as she felt too weak. Recent pathological hip fracture. Does not wish to go for inpatient rehabilitation. Tried to reiterate physical therapy is required for her to get stronger which she demonstrated understanding. Will update PT/OT evals while here in anticipation of potential discharge tomorrow. Results & Data Vital Signs (Past 12 Hours) Vital Signs Temp Pulse Pulse Resp BP Pulse Ox 09/22/19 18:58 36.6 C 72 19 111/65 90 09/22/19 15:30 78 09/22/19 14:57 36.6 C 78 20 120/73 96 09/22/19 11:03 36.7 C 82 20 120/77 96 09/22/19 09:00 78 PG Care Time/CCT Total # of Minutes Spent Total Time Spent with Patient: Total time spent is greater than 50% in coordination of care (as documented) at patient's floor/unit and/or counseling patient: (1) Diarrhea Diarrhea type: unspecified type Qualified Code(s): R19.7 - Diarrhea, unspecified (2) COPD (chronic obstructive pulmonary disease) COPD type: unspecified COPD Qualified Code(s): J44.9 - Chronic obstructive pulmonary disease, unspecified (3) Anemia Anemia type: other cause Other causes of anemia: chronic disease, neoplastic Qualified Code(s): D63.0 - Anemia in neoplastic disease (4) Adenocarcinoma of lung, stage 4 Laterality: unspecified laterality Qualified Code(s): C34.90 - Malignant neoplasm of unspecified part of unspecified bronchus or lung (5) Hyperlipidemia Hyperlipidemia type: pure hypertriglyceridemia Qualified Code(s): E78.1 - Pure hyperglyceridemia (6) GERD (gastroesophageal reflux disease) Esophagitis presence: without esophagitis Qualified Code(s): K21.9 - Gastro- esophageal reflux disease without esophagitis (7) Diverticulitis of colon with perforation Diverticulitis bleeding: without bleeding Qualified Code(s): K57.20 - Diverticulitis of large intestine with perforation and abscess without bleeding
[2019-09-22] MEDS ORDERED: POTASSIUM CHLORIDE 20 MEQ/15 ML UDC PO STA (19:54)
[2019-09-22] MEDS: ENOXAPARIN INJ 40 MG/0.4 ML SYR SQ SCH (20:52)
[2019-09-22] MEDS: ACETAMINOPHEN 325 MG TAB PO PRN (22:15)
[2019-09-23] MEDS: CHECK FENTANYL PATCH PLACEMENT SCH ×4 (00:13→23:06)
[2019-09-23] MEDS: PROMETHAZINE HCL 25 MG in SODIUM CHLORIDE 0.9% 50 ML IV PRN (03:17)
[2019-09-23] MEDS: HEPARIN 100 UNIT/ML 5ML FLUSH FLUSH PRN (03:56)
[2019-09-23 06:07] LABS: Hematocrit (blood only) 28.7 % (37-47); Mean Corpuscular Hemoglobin 25.8 pg (25-34); Mean Corpuscular Hgb Conc 31.4 g/dL (32-36); Mean Corpuscular Volume 82.2 fL (80-100); Mean Platelet Volume 8.9 fL (7.4-10.4); Platelet Count 435 K/uL (130-400); RDW Coefficient of Variation 17.9 % (11.5-14.5); RDW Standard Deviation 53.3 fL (36.4-46.3); Red Blood Count 3.49 M/uL (4.2-5.4); White Blood Count 9.29 K/uL (4.8-10.8)
[2019-09-23] MEDS: LEVOTHYROXINE SODIUM 100 MCG TABLET PO SCH (06:11)
[2019-09-23 06:35] LABS: Basophils # (auto) 0.03 K/uL (0-0.2); Basophils % (auto) 0.3 %; Eosinophils # (auto) 0.26 K/uL (0-0.5); Eosinophils % (auto) 2.8 %; Immature Granulocytes # (auto) 0.65 K/uL (0.00-0.02); Lymphocytes # (auto) 0.75 K/uL (1.2-3.4); Lymphocytes % (auto) 8.1 %; Monocytes # (auto) 1.33 K/uL (0.11-0.59); Monocytes % (auto) 14.3 %; Neutrophils # (auto) 6.27 K/uL (1.4-6.5); Neutrophils % (auto) 67.5 %; RBC Morphology Unremarkable
[2019-09-23 06:45] LABS: Alanine Aminotransferase < 6 U/L (12-78); Aspartate Aminotransferase 12 U/L (15-37); BUN Creatinine Ratio 15.5 (10-20); Blood Urea Nitrogen 9 mg/dl (7-18); Calcium 7.9 mg/dl (8.5-10.1); Carbon Dioxide 27 mmol/L (21-32); Chloride 105 mmol/L (98-107); Creatinine Clr Calc Pharmacy 68.7 ml/min; Est GFR (Non-African American) 88.9; Glucose 82 mg/dl (70-99); Potassium 3.3 mmol/L (3.5-5.1); Sodium 138 mmol/L (136-145)
[2019-09-23 06:48] LABS: Albumin Globulin Ratio 0.6 (0.9-2); Alkaline Phosphatase 78 U/L (45-117); Bilirubin,Total 0.2 mg/dl (0.2-1); Globulin 3.6 gm/dl (2.5-4.0); Total Protein 5.6 gm/dl (6.4-8.2)
[2019-09-23] MEDS: CEROVITE ADV FORMULA TAB PO SCH (08:13)
[2019-09-23] MEDS: POTASSIUM CHLORIDE 20 MEQ/15 ML UDC PO SCH (08:13)
[2019-09-23] MEDS: MAGNESIUM OXIDE 400 MG TAB PO SCH ×2 (08:14→20:40)
[2019-09-23] MEDS: PANTOprazole 40 MG TAB PO SCH (08:14)
[2019-09-23] MEDS: CITALOPRAM 40 MG TAB PO SCH (08:14)
[2019-09-23] MEDS: ASPIRIN 81 MG ECTAB PO SCH (08:14)
[2019-09-23] MEDS: NICOTINE 14 MG/24 HR PATCH TD SCH (08:16)
[2019-09-23] MEDS: FOLIC ACID 1 MG TAB PO SCH (08:17)
--- NOTE | 2019-09-23 10:02 | Surgery Progress Note ---
Date of Service September 23, 2019 Assessment & Plan (1) Diverticular disease of intestine with perforation and abscess: afebrile LLQ abdominal pain today no n/v Plan: Continue conservative treatment with IV abx would continue clear liquids today given LLQ abdominal pain if worsens will need transfer for possible IR drainage Dr. Belcher has seen and examined pt, agrees with above. Subjective feeling better than when I came in having some abdominal pain today tolerating clear liquids loose stool this morning no n/v Physical Exam Constitutional: + thin; no acute distress Respiratory: no respiratory distress Gastrointestinal (Abdomen): Inspection/Auscultation: abdomen normal to inspection; abdomen not distended Percussion/Palpation: + abdomen tender (LLQ) and abdomen soft; no guarding and abdomen not rigid Skin: no rashes, warm and dry Psychiatric: Orientation: alert and oriented x 3 Results & Data Vital Signs (Past 12 Hours) Vital Signs Temp Pulse Pulse Resp BP Pulse Ox 09/23/19 07:37 36.3 C L 78 18 129/73 92 09/23/19 06:55 69 09/23/19 03:17 36.4 C L 66 16 131/71 94 09/23/19 01:27 77 09/22/19 22:11 36.6 C 74 20 121/69 96 Laboratory Results 09/23/19 09/23/19 Range/Units 05:30 05:30 WBC 9.29 (4.8-10.8) K/uL RBC 3.49 L (4.2-5.4) M/uL Hgb 9.0 L (12.0-16.0) g/dL Hct 28.7 L (37-47) % MCV 82.2 (80-100) fL MCH 25.8 (25-34) pg MCHC 31.4 L (32-36) g/dL RDW Std Deviation 53.3 H (36.4-46.3) fL RDW Coeff of Raymundo 17.9 H (11.5-14.5) % Plt Count 435 H (130-400) K/uL MPV 8.9 (7.4-10.4) fL Immature Gran % (Auto) 7.0 % Neut % (Auto) 67.5 % Lymph % (Auto) 8.1 % [place] % (Auto) 14.3 % Eos % (Auto) 2.8 % Baso % (Auto) 0.3 % Immature Gran # (Auto) 0.65 H (0.00-0.02) K/uL Neut # (Auto) 6.27 (1.4-6.5) K/uL Lymph # (Auto) 0.75 L (1.2-3.4) K/uL [place] # (Auto) 1.33 H (0.11-0.59) K/uL Eos # (Auto) 0.26 (0-0.5) K/uL Baso # (Auto) 0.03 (0-0.2) K/uL RBC Morphology Unremarkable Sodium 138 (136-145) mmol/L Potassium 3.3 L (3.5-5.1) mmol/L Chloride 105 (98-107) mmol/L Carbon Dioxide 27 (21-32) mmol/L Anion Gap 5.0 (3-11) BUN 9 (7-18) mg/dl Creatinine 0.58 L (0.6-1.2) mg/dl Est Cr Clr Drug Dosing 68.7 ml/min Est GFR ( Amer) 103.0 Est GFR (Non-Af Amer) 88.9 BUN/Creatinine Ratio 15.5 (10-20) Glucose 82 (70-99) mg/dl Calcium 7.9 L (8.5-10.1) mg/dl Total Bilirubin 0.2 (0.2-1) mg/dl AST 12 L (15-37) U/L ALT < 6 L (12-78) U/L Alkaline Phosphatase 78 (45-117) U/L Total Protein 5.6 L (6.4-8.2) gm/dl Albumin 2.0 L (3.4-5.0) gm/dl Globulin 3.6 (2.5-4.0) gm/dl Albumin/Globulin Ratio 0.6 L (0.9-2)
[2019-09-23] MEDS ORDERED: IOVERSOL 100ml IV PRN (13:52)
--- NOTE | 2019-09-23 14:09 | CT Scan Report ---
CT abd pelvis oral and IV con CLINICAL HISTORY: Abnormal CT scan. Follow-up examination. Extraluminal presacral fluid collection. COMPARISON STUDY: 09/20/2019 FINDINGS: The patient was scanned in a dynamic helical fashion during intravenous administration of 9 4 cc of Optiray 320. A dose modification protocol was utilized according to the principles of ALARA. The visualized portions of lung bases reveal a persistent pericardial effusion. There are small bilat eral pleural effusions. There are dependent lower lobe opacities, consistent with atelectasis. No space-occupying hepatic masses are visualized. The hepatic veins and portal veins appear patent. There is cholelithiasis. There is no gallbladder wall thickening. The spleen is mildly enlarged measuring 12.2 cm. No pancreatic masses are visualized. There is a stable 18 mm left adrenal gland nodule. There are no transition zones indicate bowel obstruction. There is persistent bowel wall thickening i nvolving the distal descending colon, sigmoid and rectum, consistent with a nonspecific colitis. Ther e is slight interval decrease in the size of the bilateral fluid and gas collections within the pelvi s. The findings are consistent with pelvic abscesses which appear smaller. There is no free pelvic fluid. There is no free intraperitoneal air. There is no evidence of abdominal aortic aneurysm. Atheromatous changes are present with aortic and i liac vessels. There is 16mm right renal cyst. There is persistent mild right-sided hydronephrosis. This remains unc hanged. There is a stable 31 mm right cystic lesion There is no evidence of pathologic adenopathy. IMPRESSION: 1. No evidence of bowel obstruction. 2. Persistent fluid-filled colonic wall loops. Correlate clinically in regards to a diarrheal state. 3. Persistent bowel wall thickening involving the distal descending colon, sigmoid, and rectum. The f indings are consistent with a colitis 4. Slight interval decrease in the size of the bilateral fluid and gas collections within the pelvis consistent with pelvic abscesses 5. Cholelithiasis 6. Persistent mild right-sided hydronephrosis 7. Mild splenomegaly 8. Persistent 31 mm right ovarian cystic lesion 9. Persistent pericardial effusion, bilateral pleural effusions, and basilar atelectasis. ACT 112: Negative or not required by law. Electronically signed by: Patrick Shields M.D. 09/23/2019 2:08 PM
[2019-09-23] MEDS ORDERED: Nursing to Pharmacy Communication ONE (16:42)
[2019-09-23] MEDS: fentaNYL 25 MCG/HR TDSY TD SCH (16:51)
[2019-09-23] MEDS: ERTAPENEM SODIUM 1,000 MG in SODIUM CHLORIDE 0.9% 50 ML IV SCH (16:53)
[2019-09-23] MEDS: OXYCODONE HCL IR 5 MG TAB (IMMEDIATE RELEASE) PO PRN (17:35)
[2019-09-23] MEDS: ENOXAPARIN INJ 40 MG/0.4 ML SYR SQ SCH (20:40)
--- NOTE | 2019-09-23 23:52 | Hospitalist Progress Note ---
Date of Service September 23, 2019 Assessment & Plan (1) Diverticulitis of colon with perforation: Continue IV ertapenem. Given continuing reoccurrence, need for ongoing chemotherapy and quick reoccurrence after Augmentin given with first episode (on hip fracture admission) will continue to treat with ertapenem. 21 day course recommended by ID, patient elected for expense to take this at home. Discussed with Dr Belcher due to concern abdominal pain getting worse however on my exam she appears to be improving. CT A/P ordered to see if collection resolving. Re- discussed with Dr Belcher in late afternoon and ok with discharge tomorrow if stays stable. Discussed with case management and I understand this won't be a problem setting up O/P antibiotics on as long as she gets her dose in hospital tomorrow prior to discharge. Will set up close oncology O/P follow up to determine ongoing chemotherapy treatment. (2) Diarrhea: as above. (3) Acute dehydration: Tolerating liquids, will advance to regular low fiber diet. D/c IV fluids. No KIYA (4) Situational depression: Stable for now: Continue home medicine citalopram 40 mg p.o. every mornin g. Monitor for anxiety. (5) COPD (chronic obstructive pulmonary disease): Emphysema noted on CT chest in July. On no maintenance inhalers. No PFTs in [facility]. No wheezing on exam. (6) Anemia: Anemia of chronic disease, bone marrow suppression, post op left hip ORIF (07/2019). s/p 1 unit PRBCs 09/20 due to concern symptomatic from Hgb 7.6. Stable since. (7) Adenocarcinoma of lung, stage 4: As discussed above. It is metastatic cancer to the bone. Patient is unde rgoing chemotherapy and appears to have side effects of recent chemotherapy. (8) Bone metastasis: Noted. (9) Cigarette smoker: Patient is not smoking anymore even though she smoked for years 1 to 2 packs/day. Declined nicotine patch (10) Hyperlipidemia: Last triglycerides in 2018 72, repeat in AM to make sure not very elevated. Will d/c gemfibrozil as unlikely having significant benefit and possible harm with muscle toxicity. (11) GERD (gastroesophageal reflux disease): Continue pantoprazole 40 mg p.o. every morning. (12) Severe protein-calorie malnutrition: MVI added as per nutrition recommendations. Pt previously intolerant to Boost supplementation. If tolerating full liquid diet today can advance to pureed, low fiber diet for breakfast. (13) Pericardial effusion: Stable from prior, suspected secondary to metastatic disease and IV fluids given while NPO. (14) DVT prophylaxis: Continue lovenox 40mg SQ daily (15) Discharge planning issues: OT - home when medically stable PT - home when medically stable Subjective Patient reports no abdominal pain, nausea, vomiting. Ongoing diarrhea. Distressed about not going home today as she feels she has been improving. Tolerating liquid diet without issues. Review of Systems Review of Systems: All systems reviewed & are unremarkable except as noted in HPI & below Physical Exam Constitutional: well developed, + thin and + frail appearing; no acute distress and not in distress Eyes: + anicteric sclerae; normal pupil size ENMT: external ear and nose normal, oropharynx normal Neck: normal visual inspection and trachea midline Respiratory: normal respiratory effort, lungs clear to auscultation no respiratory distress and no cough Auscultation: lungs clear to auscultation bilaterally; no wheezes Cardiovascular: RRR, no murmur, no edema Heart Sounds: normal S1 and normal S2 Vessels: no JVD Chest (Breasts): Chest: normal inspection of chest Gastrointestinal (Abdomen): Inspection/Auscultation: abdomen normal to inspection and normal bowel sounds; abdomen not distended Percussion/Palpation: abdomen soft; abdomen nontender, no guarding and abdomen not rigid Musculoskeletal: no cyanosis or clubbing, extremities motor strength 5/5 Head/Neck/Chest: normocephalic and head atraumatic Skin: no rashes, warm and dry Neurologic: moves all extremities and awake; not confused and not obtunded Psychiatric: A+Ox3, euthymic affect Orientation: alert and oriented x 3 Results & Data Vital Signs (Past 12 Hours) Vital Signs Temp Pulse Pulse Resp BP BP Pulse Ox 09/23/19 22:39 36.8 C 77 19 136/65 93 09/23/19 18:41 36.7 C 77 20 128/65 94 09/23/19 15:02 68 09/23/19 14:59 36.7 C 75 19 148/77 H 91 PG Care Time/CCT Total # of Minutes Spent Total Time Spent with Patient: Total time spent is greater than 50% in coordination of care (as documented) at patient's floor/unit and/or counseling patient: (1) Diverticulitis of colon with perforation Diverticulitis bleeding: without bleeding Qualified Code(s): K57.20 - Diverticulitis of large intestine with perforation and abscess without bleeding (2) Diarrhea Diarrhea type: unspecified type Qualified Code(s): R19.7 - Diarrhea, unspecified (3) COPD (chronic obstructive pulmonary disease) COPD type: unspecified COPD Qualified Code(s): J44.9 - Chronic obstructive pulmonary disease, unspecified (4) Anemia Anemia type: other cause Other causes of anemia: chronic disease, neoplastic Qualified Code(s): D63.0 - Anemia in neoplastic disease (5) Adenocarcinoma of lung, stage 4 Laterality: unspecified laterality Qualified Code(s): C34.90 - Malignant neoplasm of unspecified part of unspecified bronchus or lung (6) Hyperlipidemia Hyperlipidemia type: pure hypertriglyceridemia Qualified Code(s): E78.1 - Pure hyperglyceridemia (7) GERD (gastroesophageal reflux disease) Esophagitis presence: without esophagitis Qualified Code(s): K21.9 - Gastro- esophageal reflux disease without esophagitis
[2019-09-24] MEDS: LEVOTHYROXINE SODIUM 100 MCG TABLET PO SCH (05:23)
[2019-09-24 06:25] LABS: Albumin Level 2.1 gm/dl (3.4-5.0); BUN Creatinine Ratio 10.9 (10-20); Calcium 8.3 mg/dl (8.5-10.1); Creatinine Clr Calc Pharmacy 69.9 ml/min; Est GFR (African American) 103.6; Est GFR (Non-African American) 89.4; Potassium 3.2 mmol/L (3.5-5.1)
[2019-09-24] MEDS: OXYCODONE HCL IR 5 MG TAB (IMMEDIATE RELEASE) PO PRN (06:26)
[2019-09-24 06:27] LABS: Albumin Globulin Ratio 0.5 (0.9-2); Bilirubin,Total 0.3 mg/dl (0.2-1); Globulin 4.2 gm/dl (2.5-4.0); Total Protein 6.3 gm/dl (6.4-8.2)
[2019-09-24] MEDS ORDERED: LACTOBACILLUS ACIDOPHILUS (FLORANEX) TAB PO SCH (08:00)
[2019-09-24] MEDS: CITALOPRAM 40 MG TAB PO SCH (08:14)
[2019-09-24] MEDS: CEROVITE ADV FORMULA TAB PO SCH (08:15)
[2019-09-24] MEDS: CHECK FENTANYL PATCH PLACEMENT SCH (08:15)
[2019-09-24] MEDS: MAGNESIUM OXIDE 400 MG TAB PO SCH (08:15)
[2019-09-24] MEDS: ASPIRIN 81 MG ECTAB PO SCH (08:16)
[2019-09-24] MEDS: FOLIC ACID 1 MG TAB PO SCH (08:16)
[2019-09-24] MEDS: PANTOprazole 40 MG TAB PO SCH (08:16)
[2019-09-24] MEDS: NICOTINE 14 MG/24 HR PATCH TD SCH (08:17)
[2019-09-24] MEDS: POTASSIUM CHLORIDE 20 MEQ/15 ML UDC PO SCH (08:19)
[2019-09-24 08:22] LABS: Magnesium 1.3 mg/dl (1.8-2.4); Phosphorus 1.9 mg/dl (2.5-4.9)
[2019-09-24] MEDS ORDERED: POTASSIUM CHLORIDE 20 MEQ TABCR PO SCH (09:00)
[2019-09-24] MEDS: HEPARIN 100 UNIT/ML 5ML FLUSH FLUSH PRN (10:53)
[2019-09-24] MEDS ORDERED: MAGNESIUM SULFATE / D5W 1 GM/100 ML BAG IV SCH (11:00)
[2019-09-24] MEDS ORDERED: ERTAPENEM SODIUM 1,000 MG in SODIUM CHLORIDE 0.9% 50 ML IV SCH (12:00)
--- NOTE | 2019-09-24 12:21 | Discharge Summary ---
Date of Service September 24, 2019 Admission HPI Per Admitting Provider Patient is a 79 years old female with past medical history of of adenocarcinoma of the lung stage IV with bone metastases, pathological fracture of the left hip s/p replacement and radiation therapy. Mediport placement and status post chemotherapy 3 weeks ago, then status post diverticulitis for 9 days after she had left hip replacement and radiation, COPD, osteopenia who was brought to the emergency room by her daughters stating that patient is not feeling very well has persistent diarrhea, malaise and generalized weakness. She was also seen by urologist who recommended to have IVP done on Sunday because she had mild hydronephrosis on the CT scan done by the end of the August. His fever, chills, chest pain, dysuria and hematuria. Patient was treated as an outpatient with Macrobid. Labs are reviewed: WBCs 9.89, hemoglobin 7.6, hematocrit 24 platelets 344, sodium 134, potassium 2.6, chloride 99, BUN 12, creatinine 0.56, GFR 89.9, lactate 1.5, glucose 81, magnesium pending, troponin 0 0.015, lipase 19 Albumin 2. Urine was done September 17 and it was positive for leukocyte esterase and blood. Patient stool was negative C. difficile September 10. She tested one-time positive for C. difficile gene H but negative for toxin which was on August 30, 2019. No therapy was recommended with this that time for C. difficile. Patient's last urine culture grew E. coli and diphtheroids dating September 17, [address] and it was pansensitive. CT abdomen and pelvis shows severe wall thickening and inflammatory changes of the mid to lower rectum and sigmoid colon. Given the rapidity of this all appearance this is evidence of infectious or inflammatory colitis. And ischemic etiologies considered unlikely. Upstream fluid in the large bowel suggest a diarrheal state. No bowel obstruction. The appendix appears thick-walled which may rule relate to the presence of the colitis. Correlate for the right upper quadrant symptoms to include appendicitis. Which is not favored. Enlarged right ovary as on prior exam. Consider nonemergent outpatient pelvic ultrasound. Persistent mild right pelvocalectasis and distention of the right ureter to the level of the midportion. No convincing evidence of an obstructing calculus or mass. Attention on follow-up. This may be secondary to the presence of an inflammatory process elsewhere in the pelvis versus a primary ureteral etiology. Decision is made to admit pt to same day surgery center on tele for evaluation and treatment of most likely infectious diarrhea, hypokalemia and severe anemia. Discharge Data Allergies Allergy/AdvReac Type Severity Reaction Status Date / Time nickel Allergy Intermediate Rash Verified 09/20/19 12:09 clarithromycin AdvReac Mild N/V Verified 09/20/19 12:09 codeine AdvReac Mild UPSET Verified 09/20/19 12:09 STOMACH hydrocodone AdvReac Mild N/V Verified 09/20/19 12:09 metronidazole [From Flagyl] AdvReac Mild Gastrointestinal Verified 09/20/19 12:09 Upset venlafaxine AdvReac Mild N/V Verified 09/20/19 12:09 Consultations 09/20/19 14:32 ED Decision to Admit Stat 09/20/19 16:46 Consult Gastroenterology Routine Consult Urology Routine 09/21/19 12:59 Consult General Surgery Routine 09/22/19 08:38 Consult Infectious Diseases Routine Ordered Studies 09/20/19 12:01 CT abd pelvis IV con only Stat 09/23/19 10:36 CT abd pelvis oral and IV con Routine Hospital Course (1) Diverticulitis of colon with perforation: Continue IV ertapenem. Given continuing reoccurrence, need for ongoing chemotherapy and quick reoccurrence after Augmentin given with first episode (on hip fracture admission) will continue to treat with ertapenem. 21 day course recommended by ID, patient elected for expense to take this at home. Discussed with Dr Belcher due to concern abdominal pain getting worse however on my exam she appears to be improving. CT A/P ordered to see if collection resolving. Re- discussed with Dr Belcher in late afternoon and ok with discharge tomorrow if stays stable. Discussed with case management and I understand this won't be a problem setting up O/P antibiotics on as long as she gets her dose in hospital tomorrow prior to discharge. Will set up close oncology O/P follow up to determine ongoing chemotherapy treatment. (2) Diarrhea: as above. (3) Acute dehydration: Tolerating liquids, will advance to regular low fiber diet. D/c IV fluids. No KIYA (4) Situational depression: Stable for now: Continue home medicine citalopram 40 mg p.o. every morning. Monitor for anxiety. (5) COPD (chronic obstructive pulmonary disease): Emphysema noted on CT chest in July. On no maintenance inhalers. No PFTs in [facility]. No wheezing on exam. (6) Anemia: Anemia of chronic disease, bone marrow suppression, post op left hip ORIF (07/2019). s/p 1 unit PRBCs 09/20 due to concern symptomatic from Hgb 7.6. Stable since. (7) Adenocarcinoma of lung, stage 4: As discussed above. It is metastatic cancer to the bone. Patient is undergoing chemotherapy and appears to have side effects of recent chemotherapy. (8) Bone metastasis: Noted. (9) Cigarette smoker: Patient is not smoking anymore even though she smoked for years 1 to 2 packs/day. Declined nicotine patch (10) Hyperlipidemia: Last triglycerides in 2017 72, repeat in AM to make sure not very elevated. Will d/c gemfibrozil as unlikely having significant benefit and possible harm with muscle toxicity. (11) GERD (gastroesophageal reflux disease): Continue pantoprazole 40 mg p.o. every morning. (12) Severe protein-calorie malnutrition: MVI added as per nutrition recommendations. Pt previously intolerant to Boost supplementation. If tolerating full liquid diet today can advance to pureed, low fiber diet for breakfast. (13) Pericardial effusion: Stable from prior, suspected secondary to metastatic disease and IV fluids given while NPO. (14) DVT prophylaxis: Continue lovenox 40mg SQ daily (15) Discharge planning issues: OT - home when medically stable PT - home when medically stable Discharge Plan Discharge Items Patient Disposition: Home - Home Health Services Reason For Visit: DIARRHEA, METASTATIC LUNG CANCER Discharge Diagnosis: Recurrent Diverticulitis with contained perforation Activity: Resume your previous activity Non-emergency contact: Primary Care Provider Call non-emergency contact if: you have any medication questions and your symptoms worsen Follow-up/Referrals: Zion Bartholomew MD [Primary Care Provider] - 09/26/19 10:00 am (Please, follow up at Dr. Zion Bartholomew's office with his associate, Dr. Elliott, on SundaySeptember 26 at 10:00. *If you need to change this appointment, call the office at [phone].) Johnny Street MD [Physician] - 09/29/19 11:40 am (Please, follow up at [facility]rology Office with Dr. Street on SundaySeptember 29 at 11:40 am. *The office is located at [address] in [place]. If you need to change this appointment, call the office at [phone].) Doug Quintero [Physician] - (within 1 week of discharge) Diet: Regular Ambulatory Orders: Basic Metabolic Panel (Routine) Timeframe: 1 Week Location: Determined by Patient Ordered By: Jayy Madrid Magnesium (Routine) Timeframe: 1 Week Location: Determined by Patient Ordered By: Jayy Madrid Phosphorus (Routine) Timeframe: 1 Week Location: Determined by Patient Ordered By: Jayy Dailye Attending Provider Instructions: You were admitted to [facility] from to 24 September 2019 due to diarrhea, nausea, vomiting and abdominal pain. You were diagnosed with recurrent diverticulitis with a contained perforation/abscess. This was reviewed by surgery and recommended conservative management with antibiotics. Re-scan 3 days later showed this collection to have slightly decreased in size and given improvement in symptoms you are now medically stable for discharge to continue with IV antibiotics at home for full 21 day course. Due to your persistent diarrhea you had a mildly low phosphorus, magnesium and potassium. Please continue supplementations as prescribed (ok to pick up attendant and start prescription tomorrow). Repeat lab work with results to your primary care provider have been ordered for approximately 1 week to determine further dosing of this. Please follow up with Dr Quintero, call number above when office next open in the next 1-2 weeks to determine ongoing chemotherapy schedule. Other follow up appointments as above. Dr Jayy Pickard Pending Studies at Discharge: No Stand-Alone Forms: [facility], Smoking Cessation Medications and DC Order Prescriptions: New ertapenem 1 gram recon soln 1 gm IV DAILY 16 Days Qty: 16 RF: 0 potassium chloride [Klor-Con M20] 20 mEq Tablet,Er Particles/Crystals 40 meq PO BID 14 Days Qty: 56 RF: 0 Phospha 250 Neutral 250 mg Tablet 1 tab PO QID 14 Days Qty: 56 RF: 0 magnesium chloride [Mag 64] 64 mg Tablet,Delayed Release (Dr/Ec) 256 mg PO BID 30 Days Qty: 240 RF: 0 Certavite-Antioxidant 18-400 mg-mcg Tablet 1 tab PO QAM Qty: 30 RF: 0 Continued levothyroxine [Synthroid] 100 mcg tablet 100 mcg PO QAM Qty: 90 RF: 3 oxycodone 5 mg tablet 5 mg PO Q6H PRN (Reason: pain) Qty: 40 RF: 0 citalopram [Celexa] 40 mg tablet 60 mg PO QAM Qty: 135 RF: 0 acetaminophen [Acetaminophen Extra Strength] 500 mg Tablet 1,000 mg PO Q8H PRN (Reason: Pain) RF: 0 folic acid 1 mg tablet 1 mg PO QAM RF: 0 ondansetron HCl [Zofran] 4 mg tablet 4 mg PO TID PRN (Reason: nausea and vomiting) RF: 0 pantoprazole [Protonix] 40 mg tablet,delayed release (DR/EC) 40 mg PO QAM RF: 0 aspirin [Aspir-81] 81 mg Tablet,Delayed Release (Dr/Ec) 81 mg PO QAM RF: 0 Discontinued nitrofurantoin monohyd/m-cryst [Macrobid] 100 mg capsule 100 mg PO BID 5 Days Qty: 10 RF: 0 gemfibrozil [Lopid] 600 mg tablet 600 mg PO BID Qty: 180 RF: 0 Discharge Orders: Discharge Order (Routine); Ordered 09/24/19 Ordered By: Jayy Madrid Admission Data Admit Date/Time: 09/20/19 15:26 Attending Provider: Jayy Madrid Admit Provider: Nav Mullins Primary Care Provider: Zion Bartholomew Other Providers: Nav Mullins ; Balta Kennedy ; Trey Thomas ; Tim Solorzano ; Penny Eden ; [facility]
--- NOTE | 2019-09-24 12:36 | Surgery Progress Note ---
Date of Service doing better, no abdominal pain, tolerated diet, September 24, 2019 Assessment & Plan (1) Diverticular disease of intestine with perforation and abscess: afebrile LLQ abdominal pain today no n/v Plan: Continue conservative treatment with IV abx would continue clear liquids today given LLQ abdominal pain if worsens will need transfer for possible IR drainage Dr. Belcher has seen and examined pt, agrees with above. 09/24/2019 12:34PM doing fine, CT scan - abscess is smaller pt can be discharged with po antibiotic, F/U 2 weeks, Supervising Physician Co-Signing Physician Notes I personally evaluated the patient and agree with the findings as documented by KAYY Ramirez Exam: abd: soft, nt, nd Subjective Patient reports no abdominal pain, nausea, vomiting. Ongoing diarrhea. Distressed about not going home today as she feels she has been improving. Tolerating liquid diet without issues. Physical Exam Constitutional: WD/WN, vitals as above well developed and well nourished Neck: trachea midline, no thyromegaly Respiratory: normal respiratory effort, lungs clear to auscultation Cardiovascular: RRR, no murmur, no edema Gastrointestinal (Abdomen): soft, NT, ND Neurologic: awake Psychiatric: Orientation: alert and oriented x 3 Results & Data Vital Signs (Past 12 Hours) Vital Signs Temp Pulse Pulse Resp BP BP Pulse Ox 09/24/19 11:00 36.7 C 61 18 127/80 95 09/24/19 07:17 77 09/24/19 07:00 36.6 C 75 18 146/76 H 94 09/24/19 03:29 36.7 C 73 16 147/75 H 95 Laboratory Results Abnormal lab results 09/24/19 09/24/19 Range/Units 05:23 05:23 Sodium 134 L (136-145) mmol/L Potassium 3.2 L (3.5-5.1) mmol/L Anion Gap 1.0 L (3-11) BUN 6 L (7-18) mg/dl Creatinine 0.57 L (0.6-1.2) mg/dl Calcium 8.3 L (8.5-10.1) mg/dl Phosphorus 1.9 L (2.5-4.9) mg/dl Magnesium 1.3 L (1.8-2.4) mg/dl AST 14 L (15-37) U/L ALT 6 L (12-78) U/L Total Protein 6.3 L (6.4-8.2) gm/dl Albumin 2.1 L (3.4-5.0) gm/dl Globulin 4.2 H (2.5-4.0) gm/dl Albumin/Globulin Ratio 0.5 L (0.9-2)
[2019-09-24] MEDS ORDERED: POT PHOSPHATE MONOBASIC W/ SOD TAB PO SCH (13:00)
[2019-09-24] MEDS ORDERED: MAGNESIUM CHLORIDE 64MG DELAYED REL TAB PO SCH (21:00)
== END 2019-09-24 12:57 | disposition home health service (06) | DRG 391 ==
LOC: ED 11:44 → 2N 15:26 → SUATTDRO 15:26 → 2N 16:28

== ENCOUNTER 2020-02-20 13:07 | Inpatient (IN) ==
[2020-02-20] MEDS ORDERED: SODIUM CHLORIDE 0.9% 1000ML 1,000 ML IV ONE (13:22)
--- NOTE | 2020-02-20 13:33 | Emergency Department Note ---
History of Present Illness General Chief complaint: Abdominal Pain Stated complaint: ABD PAIN, VOMITING, FEVER Time Seen by Provider: 02/20/20 13:17 History of Present Illness Provider complaint: Abdominal pain Onset (ago): day(s) 1 Location: abdomen Maximum Pain Intensity: 7 Current Pain Intensity: 7 Quality: + stabbing and + sharp 79-year-old female presents emergency department with abdominal pain. Patient reports abdominal pain began yesterday. She states her colostomy bag has been burning excessively. She also reports pain with urination. She reports it is a burning pain. She reports a T-max of 100 yesterday. She reports vomiting once yesterday. No hematemesis or coffee-ground emesis. No blood in her ostomy bag. She does report mild discoloration and foul smell to her urine. Patient is currently on chemotherapy with Dr. Quintero. Home Medications Home Medications Medication Instructions Recorded Confirmed Type folic acid 1 mg PO DIRECTED 08/04/19 02/20/20 History ondansetron HCl [Zofran] 4 mg PO TID PRN 08/30/19 02/20/20 History pantoprazole [Protonix] 40 mg PO QAM 08/30/19 02/20/20 History levothyroxine 100 mcg tablet 100 mcg PO QAM #90 tab 09/12/19 02/20/20 Rx oxycodone 5 mg tablet 5 mg PO Q6H PRN #40 tab 09/15/19 02/20/20 Rx aspirin [Aspir-81] 81 mg PO QAM 09/20/19 02/20/20 History omega-3 fatty acids 1,000 mg 1,000 mg PO DAILY #30 cap 10/21/19 02/20/20 Rx capsule vitamin E (dl, acetate) 100 unit 100 units PO DAILY #30 cap 10/21/19 02/20/20 Rx capsule citalopram 40 mg tablet 40 mg PO QAM #90 tab 01/09/20 02/20/20 Rx lorazepam 0.5 mg tablet 0.5 mg PO DAILY PRN #30 tab 01/14/20 02/20/20 Rx Allergies Allergy/AdvReac Type Severity Reaction Status Date / Time nickel Allergy Intermediate Rash Verified 02/20/20 15:08 venlafaxine AdvReac Intermediate HTN Verified 02/20/20 15:08 clarithromycin AdvReac Mild N/V Verified 02/20/20 15:08 codeine AdvReac Mild UPSET Verified 02/20/20 15:08 STOMACH hydrocodone AdvReac Mild N/V Verified 02/20/20 15:08 metronidazole [From Flagyl] AdvReac Mild Gastrointestinal Verified 02/20/20 15:08 Upset Past Med/Surg History Medical History Adenocarcinoma, lung Adrenal cortical adenoma (Acute) Anxiety Arthritis Biceps tendonitis Cataract Depression (Acute) Esophageal dyskinesia Essential hypertriglyceridemia (Acute) Fatigue Gastritis Gastroesophageal reflux disease (Acute) History of bronchitis History of diverticulitis (Resolved) Hyperlipidemia Hypothyroidism (Acute) Intermittent hydrarthrosis of elbow Irritable bowel syndrome (Acute) Lung cancer NEW DX Metastatic bone cancer radiation treatments completed 08/25/19. Olecranon bursitis Osteoarthritis Osteopenia (Acute) Pneumonia hx Sialoadenitis Surgical History History of cataract surgery RT/LEFT History of colonoscopy Dr. Veronica 12/2011 History of dilatation and curettage History of discectomy CERVICAL (GOOD ROM) History of repair of rotator cuff RT History of tooth extraction S/P section X 1 S/P hip replacement left. 07/02/2019. SAB with MAC. no issues. Family History Family/Other Family history of diabetes mellitus Brother Family hx of colon cancer Mother , age 66 Diabetes Cancer ovarian Coronary heart disease had acute DC which led to her Sister Cancer Family/Other Breast cancer Father , age 49 Suicide Alcoholism Social History Preferred Language: Russian Communication Ability: Effective Visual Impairment: No Limitations Hearing Ability: Normal Middle Stitcher Required: No Beliefs That Will Affect Care: None marital status: Unknown Current Living Situation: Alone and Family current occupational status: retired current occupation: worked at [employer]) other: 1 daughter Feels Safe at Home: Yes Smoking Status: Current every day smoker Tobacco Type: cigarettes ; Age Started Using Tobacco: 21 ; packs per day: 0.5 ; Cigarettes Per Day: 10 ; Second Hand Exposure: No ; Hx Alcohol Use: No Hx Substance Use: No Childhood Exposure to Second-Hand Smoke: Yes (both parents) caffeine: Yes Dental Care, Regularly: No Seatbelt Use: always Review of Systems A total of 10 systems reviewed and were otherwise negative Physical Exam Vital Signs Vital Signs - 24 hr 02/20/20 13:10 02/20/20 14:18 02/20/20 14:38 Temperature 36.9 C Temperature Source Oral Pulse Rate 94 H 84 Pulse Rate [Right Finger] 79 Pulse Rate from SpO2 Sensor Pulse Rhythm [Right Finger] Regular Pulse Strength [Right Finger] Normal Respiratory Rate 16 16 13 Respiratory Effort / Characteristics Non-Labored Non-Labored Spontaneous Respiratory Depth Normal Normal Respiratory Pattern Regular Blood Pressure 106/59 L Blood Pressure [Right Arm] 105/58 L Blood Pressure Mean 74 Blood Pressure Mean [Right Arm] 73 Blood Pressure Position [Right Arm] Sitting Pulse Oximetry 99 97 Oxygen Delivery Method Room Air Sepsis Recent Fever Within 48 Hours No Sepsis New/Unexplained Change in Mental Status No Sepsis Action Taken by Nursing No Action Required 02/20/20 14:40 02/20/20 14:45 02/20/20 14:49 Temperature Temperature Source Pulse Rate 85 86 Pulse Rate [Right Finger] 82 Pulse Rate from SpO2 Sensor 86 Pulse Rhythm [Right Finger] Pulse Strength [Right Finger] Respiratory Rate 22 14 16 Respiratory Effort / Characteristics Non-Labored Spontaneous Respiratory Depth Normal Respiratory Pattern Regular Blood Pressure 119/55 L Blood Pressure [Right Arm] 119/55 L Blood Pressure Mean 71 Blood Pressure Mean [Right Arm] 76 Blood Pressure Position [Right Arm] Lying Pulse Oximetry 95 97 Oxygen Delivery Method Room Air Sepsis Recent Fever Within 48 Hours Sepsis New/Unexplained Change in Mental Status Sepsis Action Taken by Nursing 02/20/20 14:50 02/20/20 15:00 02/20/20 15:01 Temperature Temperature Source Pulse Rate 82 81 82 Pulse Rate [Right Finger] Pulse Rate from SpO2 Sensor 82 81 82 Pulse Rhythm [Right Finger] Pulse Strength [Right Finger] Respiratory Rate 12 10 L 10 L Respiratory Effort / Characteristics Respiratory Depth Respiratory Pattern Blood Pressure 126/61 Blood Pressure [Right Arm] Blood Pressure Mean 91 Blood Pressure Mean [Right Arm] Blood Pressure Position [Right Arm] Pulse Oximetry 97 97 96 Oxygen Delivery Method Sepsis Recent Fever Within 48 Hours Sepsis New/Unexplained Change in Mental Status Sepsis Action Taken by Nursing 02/20/20 15:10 02/20/20 15:20 02/20/20 15:30 Temperature Temperature Source Pulse Rate 85 84 84 Pulse Rate [Right Finger] Pulse Rate from SpO2 Sensor 85 83 85 Pulse Rhythm [Right Finger] Pulse Strength [Right Finger] Respiratory Rate 14 18 13 Respiratory Effort / Characteristics Respiratory Depth Respiratory Pattern Blood Pressure 117/62 Blood Pressure [Right Arm] Blood Pressure Mean 74 Blood Pressure Mean [Right Arm] Blood Pressure Position [Right Arm] Pulse Oximetry 98 92 95 Oxygen Delivery Method Sepsis Recent Fever Within 48 Hours Sepsis New/Unexplained Change in Mental Status Sepsis Action Taken by Nursing 02/20/20 15:31 Temperature Temperature Source Pulse Rate 85 Pulse Rate [Right Finger] Pulse Rate from SpO2 Sensor 86 Pulse Rhythm [Right Finger] Pulse Strength [Right Finger] Respiratory Rate 15 Respiratory Effort / Characteristics Respiratory Depth Respiratory Pattern Blood Pressure Blood Pressure [Right Arm] Blood Pressure Mean Blood Pressure Mean [Right Arm] Blood Pressure Position [Right Arm] Pulse Oximetry 96 Oxygen Delivery Method Sepsis Recent Fever Within 48 Hours Sepsis New/Unexplained Change in Mental Status Sepsis Action Taken by Nursing Physical Exam GENERAL: She is oriented to person, place, and time. She appears well-developed and well-nourished. She does not appear distressed. HENT: Exam performed. -Head: Normocephalic and atraumatic. -Right Ear: External ear normal. No mastoid tenderness. -Left Ear: External ear normal. No mastoid tenderness. -Mouth/Throat: The oropharynx is clear and moist. No trismus in the jaw. No dental abscesses or uvula swelling. No oropharyngeal exudate or tonsillar abscesses. EYES: Conjunctivae and EOM are normal. Pupils are equal, round, and reactive to light. Right eye exhibits no discharge. Left eye exhibits no discharge. No scleral icterus. NECK: Normal range of motion. Neck supple. No JVD present. No spinous process tenderness present. No carotid bruit present. No rigidity. No tracheal deviation and normal range of motion present. No Brudzinski's sign and no Kernig's sign noted. CV: Normal rate, regular rhythm, normal heart sounds and intact distal pulses. There is no peripheral edema. Palpable radial pulses bue. PULM/CHEST: Effort normal and breath sounds normal. No respiratory distress. No stridor. She has no wheezes. She has no rales. -Chest Wall: She exhibits no tenderness. ABD: Ostomy bag present. Diffuse pain on palpation of the abdomen. MUSC/SKEL: Normal range of motion. There is no peripheral edema, tenderness or deformity. LYMPH: No cervical adenopathy. NEURO: She is alert and oriented to person, place, and time. She has normal strength. No cranial nerve deficit or sensory deficit. Coordination and gait normal. GCS eye subscore is 4. GCS verbal subscore is 5. GCS motor subscore is 6. Cerebellar tests wnl. SKIN: Skin is warm and dry. She is not diaphoretic. PSYCH: She has a normal mood and affect. Behavior is normal. Judgment and thought content normal. Course Course 1320: The patient was evaluated in room B4. A complete history and physical exam was performed. 1520: Vital signs stable. On reassessment the patient is continuing to have pain. Increase analgesia given to the patient. Labs show leukocytosis 17.6. CT of the abdomen shows a small bowel obstruction located within the deep pelvis. There are multifocal abscesses as well as a new small abscess abutting the ascending colon. EMR reviewed. According to the note by Dr. Quintero on January 30, 2020 the patient did have a CT scan done which showed a large pelvic abscess at the time of the ruptured diverticulitis. According Dr. Quintero's note he was supposed to discuss these findings with her surgeon down at [facility]. There is no further report from Dr. Quintero in regards to this matter. The patient reports she was scheduled to have an appointment with colorectal surgery in [place] however got canceled given the current pandemic COVID-19. Patient does states she has an appointment at the end of next month. I did discuss the case with Dr. Cai, colorectal surgery at [facility]. I did read him the scans of the CT about the pelvic abscesses in the small bowel obstruction. He stated that the abscesses were small and would not need any surgical or interventional radiological drainage and that he would plan to treat them with IV antibiotics. Nolan ordered for the patient. He stated at this time there is no emergent need to transfer the patient to [facility] however if general surgery medicine are not comfortable managing the patient at this facility he would happily accept the patient to [place]. 1547: Vital signs stable. Discussed with Dr. Lin general surgery on-call agreed to be on consult for the patient. Discussed with Antonette BARON who stated to admit the patient to Dr. Moon service Administered Medications Magnesium Sulfate/Dextrose (Magnesium Sulfate / D5w) 1 gm in 100 mls @ 100 mls/hr IV Q1H JOSE E Stop: 02/20/20 16:46 Last Admin: 02/20/20 15:32 Dose: 100 mls/hr Documented by: [id number] Piperacillin Sod/Tazobactam Sod (Zosyn) 4.5 gm in 120 mls @ 30 mls/hr IV NOW ONE Stop: 02/20/20 19:20 Last Admin: 02/20/20 15:49 Dose: 30 mls/hr Documented by: [email or web address] (Optiray 320 100ml) 93 ml IV ONCE PRN PRN Reason: Interaction Checking Stop: 02/24/20 14:28 Last Admin: 02/20/20 14:29 Dose: 93 ml Documented by: [id number] Discontinued Medications Sodium Chloride (Nss 1000ml) 1,000 mls @ 999 mls/hr IV .Q1H1M ONE Stop: 02/20/20 14:22 Last Admin: 02/20/20 13:50 Dose: 999 mls/hr Documented by: [id number] Morphine Sulfate (Morphine Sulfate) 4 mg IV NOW STA Stop: 02/20/20 15:11 Last Admin: 02/20/20 15:25 Dose: 4 mg Documented by: [id number] Ondansetron HCl (Zofran) 4 mg IV NOW STA Stop: 02/20/20 15:11 Last Admin: 02/20/20 15:25 Dose: 4 mg Documented by: [id number] Medical Decision Making Laboratory Data Result diagrams: 02/20/20 13:44 02/20/20 13:44 Lab Results 02/20/20 02/20/20 02/20/20 Range/Units 13:44 13:44 13:44 WBC 17.60 H (4.8-10.8) K/uL RBC 3.37 L (4.2-5.4) M/uL Hgb 8.4 L (12.0-16.0) g/dL POC Hgb (12.0-16.0) g/dl Hct 27.6 L (37-47) % POC Hct (37-47) % MCV 81.9 (80-100) fL MCH 24.9 L (25-34) pg MCHC 30.4 L (32-36) g/dL RDW Std Deviation 62.7 H (36.4-46.3) fL RDW Coeff of Raymundo 21.1 H (11.5-14.5) % Plt Count 313 (130-400) K/uL MPV 8.7 (7.4-10.4) fL Immature Gran % (Auto) 0.3 % Neut % (Auto) 88.7 % Lymph % (Auto) 3.1 % [place] % (Auto) 7.5 % Eos % (Auto) 0.3 % Baso % (Auto) 0.1 % Immature Gran # (Auto) 0.06 H (0.00-0.02) K/uL Neut # (Auto) 15.60 H (1.4-6.5) K/uL Lymph # (Auto) 0.55 L (1.2-3.4) K/uL [place] # (Auto) 1.32 H (0.11-0.59) K/uL Eos # (Auto) 0.06 (0-0.5) K/uL Baso # (Auto) 0.01 (0-0.2) K/uL Anisocytosis Present PT 11.9 (9.0-12.0) Seconds INR 1.1 (0.9-1.1) APTT 29.4 (21.0-31.0) Seconds PTT Ratio 1.1 POC Sodium (135-144) mmol/L Sodium (136-145) mmol/L POC Potassium (3.3-5.0) mmol/L Potassium (3.5-5.1) mmol/L POC Chloride (101-112) mmol/L Chloride (98-107) mmol/L Carbon Dioxide (21-32) mmol/L POC Total CO2 (24-31) mmol/L Anion Gap (3-11) POC Anion Gap (16-25) mmol/L POC BUN (7-18) mg/dl BUN (7-18) mg/dl Creatinine (0.6-1.2) mg/dl POC Creatinine (0.6-1.3) mg/dl Est Cr Clr Drug Dosing Est GFR ( Amer) Est GFR (Non-Af Amer) BUN/Creatinine Ratio (10-20) Glucose (70-99) mg/dl POC Glucose (other) (70-99) mg/dl Lactate (0.4-2.0) mmol/L Calcium (8.5-10.1) mg/dl POC Ioniz Calcium Turner (1.12-1.32) mmol/l Magnesium (1.8-2.4) mg/dl Total Bilirubin (0.2-1) mg/dl AST (15-37) U/L ALT (12-78) U/L Alkaline Phosphatase (45-117) U/L Troponin I (0-0.045) ng/ml Total Protein (6.4-8.2) gm/dl Albumin (3.4-5.0) gm/dl Globulin (2.5-4.0) gm/dl Albumin/Globulin Ratio (0.9-2) Procalcitonin 0.11 (0-0.5) ng/ml Urine Color Urine Appearance (Clear) Urine pH (4.5-7.5) Ur Specific [place] (1.000-1.030) Urine Protein (Negative) Urine Glucose (UA) (Negative) Urine Ketones (Negative) Urine Blood (Negative) Urine Nitrite (Negative) Urine Bilirubin (Negative) Urine Urobilinogen (Negative) Ur Leukocyte Esterase (Negative) Influenza Type A (PCR) (Neg) Influenza Type B (PCR) (Neg) 02/20/20 02/20/20 02/20/20 Range/Units 13:44 13:44 13:46 WBC (4.8-10.8) K/uL RBC (4.2-5.4) M/uL Hgb (12.0-16.0) g/dL POC Hgb 8.8 L (12.0-16.0) g/dl Hct (37-47) % POC Hct 26 L (37-47) % MCV (80-100) fL MCH (25-34) pg MCHC (32-36) g/dL RDW Std Deviation (36.4-46.3) fL RDW Coeff of Raymundo (11.5-14.5) % Plt Count (130-400) K/uL MPV (7.4-10.4) fL Immature Gran % (Auto) % Neut % (Auto) % Lymph % (Auto) % [place] % (Auto) % Eos % (Auto) % Baso % (Auto) % Immature Gran # (Auto) (0.00-0.02) K/uL Neut # (Auto) (1.4-6.5) K/uL Lymph # (Auto) (1.2-3.4) K/uL [place] # (Auto) (0.11-0.59) K/uL Eos # (Auto) (0-0.5) K/uL Baso # (Auto) (0-0.2) K/uL Anisocytosis PT (9.0-12.0) Seconds INR (0.9-1.1) APTT (21.0-31.0) Seconds PTT Ratio POC Sodium 136 (135-144) mmol/L Sodium 138 (136-145) mmol/L POC Potassium 3.2 L (3.3-5.0) mmol/L Potassium 3.2 L (3.5-5.1) mmol/L POC Chloride 100 L (101-112) mmol/L Chloride 103 (98-107) mmol/L Carbon Dioxide 25 (21-32) mmol/L POC Total CO2 24 (24-31) mmol/L Anion Gap 10.0 (3-11) POC Anion Gap 16.0 (16-25) mmol/L POC BUN 12 (7-18) mg/dl BUN 13 (7-18) mg/dl Creatinine 0.53 L (0.6-1.2) mg/dl POC Creatinine 0.6 (0.6-1.3) mg/dl Est Cr Clr Drug Dosing Not Reportable Est GFR ( Amer) 106.1 Est GFR (Non-Af Amer) 91.6 BUN/Creatinine Ratio 23.7 H (10-20) Glucose 97 (70-99) mg/dl POC Glucose (other) 96 (70-99) mg/dl Lactate 0.9 (0.4-2.0) mmol/L Calcium 8.7 (8.5-10.1) mg/dl POC Ioniz Calcium Turner 1.20 (1.12-1.32) mmol/l Magnesium 1.5 L (1.8-2.4) mg/dl Total Bilirubin 0.3 (0.2-1) mg/dl AST 11 L (15-37) U/L ALT < 6 L (12-78) U/L Alkaline Phosphatase 72 (45-117) U/L Troponin I < 0.015 (0-0.045) ng/ml Total Protein 6.5 (6.4-8.2) gm/dl Albumin 2.1 L (3.4-5.0) gm/dl Globulin 4.4 H (2.5-4.0) gm/dl Albumin/Globulin Ratio 0.5 L (0.9-2) Procalcitonin (0-0.5) ng/ml Urine Color Urine Appearance (Clear) Urine pH (4.5-7.5) Ur Specific [place] (1.000-1.030) Urine Protein (Negative) Urine Glucose (UA) (Negative) Urine Ketones (Negative) Urine Blood (Negative) Urine Nitrite (Negative) Urine Bilirubin (Negative) Urine Urobilinogen (Negative) Ur Leukocyte Esterase (Negative) Influenza Type A (PCR) (Neg) Influenza Type B (PCR) (Neg) 02/20/20 02/20/20 Range/Units 13:49 14:45 WBC (4.8-10.8) K/uL RBC (4.2-5.4) M/uL Hgb (12.0-16.0) g/dL POC Hgb (12.0-16.0) g/dl Hct (37-47) % POC Hct (37-47) % MCV (80-100) fL MCH (25-34) pg MCHC (32-36) g/dL RDW Std Deviation (36.4-46.3) fL RDW Coeff of Raymundo (11.5-14.5) % Plt Count (130-400) K/uL MPV (7.4-10.4) fL Immature Gran % (Auto) % Neut % (Auto) % Lymph % (Auto) % [place] % (Auto) % Eos % (Auto) % Baso % (Auto) % Immature Gran # (Auto) (0.00-0.02) K/uL Neut # (Auto) (1.4-6.5) K/uL Lymph # (Auto) (1.2-3.4) K/uL [place] # (Auto) (0.11-0.59) K/uL Eos # (Auto) (0-0.5) K/uL Baso # (Auto) (0-0.2) K/uL Anisocytosis PT (9.0-12.0) Seconds INR (0.9-1.1) APTT (21.0-31.0) Seconds PTT Ratio POC Sodium (135-144) mmol/L Sodium (136-145) mmol/L POC Potassium (3.3-5.0) mmol/L Potassium (3.5-5.1) mmol/L POC Chloride (101-112) mmol/L Chloride (98-107) mmol/L Carbon Dioxide (21-32) mmol/L POC Total CO2 (24-31) mmol/L Anion Gap (3-11) POC Anion Gap (16-25) mmol/L POC BUN (7-18) mg/dl BUN (7-18) mg/dl Creatinine (0.6-1.2) mg/dl POC Creatinine (0.6-1.3) mg/dl Est Cr Clr Drug Dosing Est GFR ( Amer) Est GFR (Non-Af Amer) BUN/Creatinine Ratio (10-20) Glucose (70-99) mg/dl POC Glucose (other) (70-99) mg/dl Lactate (0.4-2.0) mmol/L Calcium (8.5-10.1) mg/dl POC Ioniz Calcium Turner (1.12-1.32) mmol/l Magnesium (1.8-2.4) mg/dl Total Bilirubin (0.2-1) mg/dl AST (15-37) U/L ALT (12-78) U/L Alkaline Phosphatase (45-117) U/L Troponin I (0-0.045) ng/ml Total Protein (6.4-8.2) gm/dl Albumin (3.4-5.0) gm/dl Globulin (2.5-4.0) gm/dl Albumin/Globulin Ratio (0.9-2) Procalcitonin (0-0.5) ng/ml Urine Color Dark Yellow Urine Appearance Clear (Clear) Urine pH 5.5 (4.5-7.5) Ur Specific [place] 1.018 (1.000-1.030) Urine Protein Negative (Negative) Urine Glucose (UA) Negative (Negative) Urine Ketones Negative (Negative) Urine Blood Negative (Negative) Urine Nitrite Negative (Negative) Urine Bilirubin Negative (Negative) Urine Urobilinogen Negative (Negative) Ur Leukocyte Esterase Negative (Negative) Influenza Type A (PCR) Neg for Influ A (Neg) Influenza Type B (PCR) Neg for Influ B (Neg) Imaging Data Radiologist's Impression: ABDOMEN AND PELVIS CT WITH IV CONTRAST CT DOSE: 241.22 mGy.cm HISTORY: Generalized abdominal pain fever dysuira TECHNIQUE: Multiaxial CT images of the abdomen and pelvis were performed following the use of intravenous contrast. A dose lowering technique was utilized adhering to the principles of ALARA. COMPARISON STUDY: Abdomen and pelvis CT 01/30/2020. FINDINGS: Mild interlobular septal thickening within the lung bases, unchanged. 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 Nondisplaced pathologic fracture within the left superior acetabulum is again no margaret. The left hip prosthesis remains unchanged. There is a small pericardial effusion, unchanged. No hepatic or splenic masses. The spleen remains enlarged. A 1.3 cm left adrenal gland nodule. Normal right adrenal gland. The pancreas is unremarkable. Bilateral renal hypodense lesions are again noted. There is mild to moderate bilateral hydroureteronephrosis to the level of the pelvis. This is new compared the prior study. No retroperitoneal lymphadenopathy. Interval development of a small amount of ascites. Postoperative changes consistent with a prior left lower quadrant colostomy. Colonic diverticulosis. Moderate stool within the transverse colon. A punctate gallstone. No gallbladder wall thickening. There is thickening of the gastric antrum, unchanged. Multiple mildly dilated fluid-filled loops of small bowel seen within the abdomen. The distal small bowel loops are decompressed. Probable transition point seen within the left deep pelvis. Therefore, this is consistent with interval with a small bowel obstruction. There is mild thickening of the sigmoid colon and distal descending colon. There are multiple small peripheral enhancing fluid collections seen surrounding the sigmoid: Within the left side of the pelvis. Some of these contain gas and are consistent with multifocal abscesses. Overall, these have slightly improved compared to the prior study. The bladder is decompressed. The uterus and bilateral adnexa are not well visualized due to metallic artifact from the left hip prosthesis in the multifocal abscesses. There is a 3.3 cm gas and fluid collection within the right side the abdomen best in image 203. This appears to abut the ascending colon and likely represen ts an additional abscess. Moderate body wall edema. IMPRESSION: 1. Interval almost small bowel obstruction with a transition point likely located within the left deep pelvis. 2. Multifocal abscesses within the pelvis have slightly improved. There appears to be a new small abscess abutting the ascending colon. These abscesses could be due to postoperative change, anastomotic leak, or acute diverticulitis. Clinical correlation recommended. 3. Interval development of moderate bilateral hydroureteronephrosis to the level of the deep pelvis. The obstruction is likely secondary to the multiple pelvic abscesses. 4. Thickening of the sigmoid colon and distal descending colon may be reactive to the abscesses. 5. Small amount of ascites has developed in the interval. 6. Small pericardial effusion, unchanged. 7. Splenomegaly, unchanged. 8. 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 No change in the nondisplaced pathologic fracture of the left emperatriz tabulum. 9. Additional findings as described above. ACT 112: Negative or not required by law. Electronically signed by: Bao Alcala M.D. 02/20/2020 2:52 PM Dictated: 02/20/20 1436 Transcribed: 02/20/20 1436 ECG Data Indication: + abdominal pain Rate (beats per minute): 84 Rhythm: + normal sinus ECG Intervals/blocks: + Normal QRS, + Normal MA and + Normal QT-c ECG ST segments: + Normal ST segments MDM Narrative 1320: The patient was evaluated in room B4. A complete history and physical exam was performed. 1520: Vital signs stable. On reassessment the patient is continuing to have pain. Increase analgesia given to the patient. Labs show leukocytosis 17.6. CT of the abdomen shows a small bowel obstruction located within the deep pelvis. There are multifocal abscesses as well as a new small abscess abutting the ascending colon. EMR reviewed. According to the note by Dr. Quintero on January 30, 2020 the patient did have a CT scan done which showed a large pelvic abscess at the time of the ruptured diverticulitis. According Dr. Quintero's note he was supposed to discuss these findings with her surgeon down at [facility]. There is no further report from Dr. Quintero in regards to this matter. The patient reports she was scheduled to have an appointment with colorectal surgery in [place] however got canceled given the current pandemic COVID-19. Patient does states she has an appointment at the end of next month. I did discuss the case with Dr. Cai, colorectal surgery at [facility]. I did read him the scans of the CT about the pelvic abscesses in the small bowel obstruction. He stated that the abscesses were small and would not need any surgical or interventional radiological drainage and that he would plan to treat them with IV antibiotics. Nolan ordered for the patient. He stated at this time there is no emergent need to transfer the patient to [facility] however if general surgery medicine are not comfortable managing the patient at this facility he would happily accept the patient to [place]. 1547: Vital signs stable. Discussed with Dr. Lin general surgery on-call agreed to be on consult for the patient. Discussed with Antonette BARON who stated to admit the patient to Dr. Moon service Impression & Plan SBO (small bowel obstruction), Adenocarcinoma of lung, stage 4, Pelvic abscess Discharge Plan Visit Data Chief Complaint: Abdominal Pain Stated Complaint: ABD PAIN, VOMITING, FEVER ED Provider: Bam Reagan Discharge Problem: SBO (small bowel obstruction), Adenocarcinoma of lung, stage 4, Pelvic abscess Patient Disposition: Admitted As Inpatient Forms Stand Alone Forms: [facility] Prescriptions Prescriptions: No Action levothyroxine [Synthroid] 100 mcg tablet 100 mcg PO QAM Qty: 90 RF: 3 oxycodone 5 mg tablet 5 mg PO Q6H PRN (Reason: pain) Qty: 40 RF: 0 omega-3 fatty acids 1,000 mg capsule 1,000 mg PO DAILY Qty: 30 RF: 2 vitamin E (dl, acetate) 100 unit capsule 100 units PO DAILY Qty: 30 RF: 2 citalopram [Celexa] 40 mg tablet 40 mg PO QAM Qty: 90 RF: 3 lorazepam 0.5 mg tablet 0.5 mg PO DAILY PRN (Reason: anxiety) Qty: 30 RF: 1 folic acid 1 mg tablet 1 mg PO DIRECTED RF: 0 ondansetron HCl [Zofran] 4 mg tablet 4 mg PO TID PRN (Reason: nausea and vomiting) RF: 0 pantoprazole [Protonix] 40 mg tablet,delayed release (DR/EC) 40 mg PO QAM RF: 0 aspirin [Aspir-81] 81 mg Tablet,Delayed Release (Dr/Ec) 81 mg PO QAM RF: 0 Referrals Referrals: Zion Bartholomew MD [Primary Care Provider] - Discharge Problem: Adenocarcinoma of lung, stage 4 Qualifiers: Laterality: unspecified laterality Qualified Code(s): C34.90 - Malignant neoplasm of unspecified part of unspecified bronchus or lung
--- NOTE | 2020-02-20 13:43 | XRay Report ---
XR chest 1V portable HISTORY: SEPSIS COMPARISON: Chest 09/01/2019. FINDINGS: Left subclavian Port-A-Cath terminates in the SVC. The heart is normal in size. No pleural effusions. No pneumothorax. The lungs are mildly hyperexpanded with apical predominant emphysematous changes. A few small linear densities at the lung bases favor subsegmental atelectasis or scarring. O therwise, lungs are clear. No new focal lung consolidations to suggest pneumonia. No evidence for pul monary edema. There are surgical clips within the right neck. IMPRESSION: No acute process. ACT 112: Negative or not required by law. Electronically signed by: Bao Alcala M.D. 02/20/2020 1:41 PM
[2020-02-20 13:58] LABS: iSTAT Creatinine 0.6 mg/dl (0.6-1.3); iSTAT Hemoglobin 8.8 g/dl (12.0-16.0); iSTAT Ionized Calcium 1.2 mmol/l (1.12-1.32); iSTAT Potassium 3.2 mmol/L (3.3-5.0)
[2020-02-20 14:02] LABS: Basophils # (auto) 0.01 K/uL (0-0.2); Basophils % (auto) 0.1 %; Eosinophils # (auto) 0.06 K/uL (0-0.5); Eosinophils % (auto) 0.3 %; Hematocrit (blood only) 27.6 % (37-47); Hemoglobin 8.4 g/dL (12.0-16.0); Immature Granulocytes # (auto) 0.06 K/uL (0.00-0.02); Immature Granulocytes % (auto) 0.3 %; Lymphocytes # (auto) 0.55 K/uL (1.2-3.4); Lymphocytes % (auto) 3.1 %; Mean Corpuscular Hemoglobin 24.9 pg (25-34); Mean Corpuscular Hgb Conc 30.4 g/dL (32-36); Mean Corpuscular Volume 81.9 fL (80-100); Mean Platelet Volume 8.7 fL (7.4-10.4); Monocytes # (auto) 1.32 K/uL (0.11-0.59); Monocytes % (auto) 7.5 %; Neutrophils % (auto) 88.7 %; Platelet Count 313 K/uL (130-400); RDW Coefficient of Variation 21.1 % (11.5-14.5); RDW Standard Deviation 62.7 fL (36.4-46.3); Red Blood Count 3.37 M/uL (4.2-5.4)
[2020-02-20 14:14] LABS: INR 1.1 (0.9-1.1); Partial Thromboplastin Ratio 1.1; Partial Thromboplastin Time 29.4 Seconds (21.0-31.0); Prothrombin Time 11.9 Seconds (9.0-12.0)
[2020-02-20 14:16] LABS: Alanine Aminotransferase < 6 U/L (12-78); Albumin Level 2.1 gm/dl (3.4-5.0); Aspartate Aminotransferase 11 U/L (15-37); BUN Creatinine Ratio 23.7 (10-20); Blood Urea Nitrogen 13 mg/dl (7-18); Calcium 8.7 mg/dl (8.5-10.1); Carbon Dioxide 25 mmol/L (21-32); Chloride 103 mmol/L (98-107); Est GFR (African American) 106.1; Est GFR (Non-African American) 91.6; Glucose 97 mg/dl (70-99); Magnesium 1.5 mg/dl (1.8-2.4); Potassium 3.2 mmol/L (3.5-5.1); Sodium 138 mmol/L (136-145)
[2020-02-20 14:21] LABS: Albumin Globulin Ratio 0.5 (0.9-2); Alkaline Phosphatase 72 U/L (45-117); Bilirubin,Total 0.3 mg/dl (0.2-1); Globulin 4.4 gm/dl (2.5-4.0); Total Protein 6.5 gm/dl (6.4-8.2); Troponin I < 0.015 ng/ml (0-0.045)
[2020-02-20] MEDS ORDERED: IOVERSOL 100ml IV PRN (14:29)
[2020-02-20 14:30] LABS: Anisocytosis Present
--- NOTE | 2020-02-20 14:53 | CT Scan Report ---
ABDOMEN AND PELVIS CT WITH IV CONTRAST CT DOSE: 241.22 mGy.cm HISTORY: Generalized abdominal pain fever dysuira TECHNIQUE: Multiaxial CT images of the abdomen and pelvis were performed following the use of intrave nous contrast. A dose lowering technique was utilized adhering to the principles of ALARA. COMPARISON STUDY: Abdomen and pelvis CT 01/30/2020. FINDINGS: Mild interlobular septal thickening within the lung bases, unchanged. 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 Nondisplaced pathologic fracture within t he left superior acetabulum is again noted. The left hip prosthesis remains unchanged. There is a sma ll pericardial effusion, unchanged. No hepatic or splenic masses. The spleen remains enlarged. A 1.3 cm left adrenal gland nodule. Normal right adrenal gland. The pancreas is unremarkable. Bilateral tami al hypodense lesions are again noted. There is mild to moderate bilateral hydroureteronephrosis to th e level of the pelvis. This is new compared the prior study. No retroperitoneal lymphadenopathy. Inte rval development of a small amount of ascites. Postoperative changes consistent with a prior left low er quadrant colostomy. Colonic diverticulosis. Moderate stool within the transverse colon. A punctate gallstone. No gallbladder wall thickening. There is thickening of the gastric antrum, unchanged. Mul tiple mildly dilated fluid-filled loops of small bowel seen within the abdomen. The distal small alex l loops are decompressed. Probable transition point seen within the left deep pelvis. Therefore, this is consistent with interval with a small bowel obstruction. There is mild thickening of the sigmoid colon and distal descending colon. There are multiple small peripheral enhancing fluid collections se en surrounding the sigmoid: Within the left side of the pelvis. Some of these contain gas and are con sistent with multifocal abscesses. Overall, these have slightly improved compared to the prior study. The bladder is decompressed. The uterus and bilateral adnexa are not well visualized due to metallic artifact from the left hip prosthesis in the multifocal abscesses. There is a 3.3 cm gas and fluid c ollection within the right side the abdomen best in image 203. This appears to abut the ascending col on and likely represents an additional abscess. Moderate body wall edema. IMPRESSION: 1. Interval almost small bowel obstruction with a transition point likely located within the left juan antonio p pelvis. 2. Multifocal abscesses within the pelvis have slightly improved. There appears to be a new small abs cess abutting the ascending colon. These abscesses could be due to postoperative change, anastomotic leak, or acute diverticulitis. Clinical correlation recommended. 3. Interval development of moderate bilateral hydroureteronephrosis to the level of the deep pelvis. The obstruction is likely secondary to the multiple pelvic abscesses. 4. Thickening of the sigmoid colon and distal descending colon may be reactive to the abscesses. 5. Small amount of ascites has developed in the interval. 6. Small pericardial effusion, unchanged. 7. Splenomegaly, unchanged. 8. 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 No zapien e in the nondisplaced pathologic fracture of the left acetabulum. 9. Additional findings as described above. ACT 112: Negative or not required by law. Electronically signed by: Bao Alcala M.D. 02/20/2020 2:52 PM
[2020-02-20 15:02] LABS: Influenza A virus by PCR Neg for Influ A (Neg); Influenza B virus by PCR Neg for Influ B (Neg)
[2020-02-20 15:10] LABS: Appearance Urine Clear (Clear); Bilirubin Urine Negative (Negative); Blood Urine Negative (Negative); Color Urine Dark Yellow; Glucose Urine UA Negative (Negative); Ketones Urine Negative (Negative); Leukocyte Esterase Urine Negative (Negative); Nitrite Urine Negative (Negative); Protein Urine Negative (Negative); Specific Gravity Urine 1.018 (1.000-1.030); Urobilinogen Urine Negative (Negative); pH Urine 5.5 (4.5-7.5)
[2020-02-20] MEDS ORDERED: MoRPHine SULFATE 4 MG/ML 1 ML CARP\\VIAL IV STA (15:10)
[2020-02-20] MEDS ORDERED: ONDANSETRON INJ 2 MG/ML 2 ML VIAL IV STA (15:10)
[2020-02-20] MEDS ORDERED: PIPERACILL/TAZOBAC CONSULT ACTIVE PRN ×2 (15:21→19:43)
[2020-02-20] MEDS ORDERED: PIPERACILLIN/TAZOBACTAM 4.5 GM/120 ML BAG IV ONE (15:21)
[2020-02-20] MEDS: MAGNESIUM SULFATE / D5W 1 GM/100 ML BAG IV SCH ×2 (15:32→17:29)
--- NOTE | 2020-02-20 17:36 | History & Physical Report ---
Date of Service February 20, 2020 Assessment & Plan (1) Abdominal pain: 79-year-old female was admitted on 20 Feb 2020 after c/o abdominal pain. Abdominal pain, small bowel obstruction, abdominal abscesses: Acutely worsening pain x 24 hours. Minimal p.o. intake x 48 hours. Non-bloody emesis this morning. Borderline febrile at home. - PSH SBO and pelvic abscess (related to diverticulitis) in Oct 2019 via [facility]. Underwent end sigmoid colosotomy and appendectomy. Of note, 08Apr abdomen wound grew resistant pseudomonas. - In ED, afebrile, not tachycardic or tachypneic, normotensive, normal room SpO2. WBC 17. LFTs normal. EKG NSR. TnI, lactate, influenza, and procal negative. Blood cultures sent. pCXR non-acute. Please see full CT a/p report. Notes SBO, multifocal abscesses, ascites. - In ED, gave NS IVF, morphine, Zofran, and Zosyn. Much improved pain and nausea. - Per ED note, the discussed case with colorectal surgery at [facility]. Please see their note for details. - Will start vancomycin and Zosyn on admission. Continue morphine and Zofran as needed for symptom control. Consult general surgery. Urinary pressure: Patient feels relatively acute pressure with urination but no pain. CT a/p noted moderate bilateral hydroureteronephrosis likely secondary to pelvic abscesses. UA was negative. - Will watch patient's urinary output. Bladder scan each shift and straight cath if PVR > 350. Hold off on urology consult for now. Anemia: Hx of transfusion after Oct 2019 surgery. Admit Hb 8.4, MCV 82. Recent comparisons around 10. - Ordered iron studies, B12 and folate levels. Hypokalemia, hypomagnesemia: Admit K 3.2, Mg 1.5. ED replaced mag. Will order KCl on admit and monitor both. RLL metastatic lung adenocarcinoma (dx Jun 2019): Mets to bone and previous left hip replacement. Hx chemo and radiation. Previously followed by Dr. Quintero of heme-onc. Pending appointment with Dr. Judd. Ongoing medical issues: - HTN, HLD: Patient says she is not on medication for this. Does take aspirin "for her heart", which will be held for now. - COPD: Life-long current smoker. Denies ever needing any respiratory inhalers. --- Was noted to have a SpO2 drop to 88% after getting morphine. Will monitor and provide supplemental NC oxygen prn goal > 92%. - Hypothyroidism: 08May TSH 3.8. Held home synthroid. - GERD: Converted home pantoprazole to IV. - Depression/anxiety: Held home celexa. Says her in December. We will keep as needed lorazepam. - PMH thrush: Says she is prone to thrush after antibiotics, but not at present. Monitor. Code status: DNR/DNI (confirmed with patient on admit). Diet: NPO. LR at 100 mL/ hr. DVT prophy: SCDs. Holding chemical prophy in case of acute surgery / intervention. PT/OT: Deferred on admission. Disbo: Admit to MedSurg. Patient lives at home. Presently grandson lives with her. (2) SBO (small bowel obstruction): (3) Pelvic abscess: (4) Hydroureteronephrosis: (5) Anemia: (6) Hypokalemia: (7) Hypomagnesemia: (8) Adenocarcinoma of lung, stage 4: (9) Hypertension: (10) Hyperlipidemia: (11) COPD (chronic obstructive pulmonary disease): (12) Hypothyroidism: (13) GERD (gastroesophageal reflux disease): (14) Depression: History of Present Illness Primary Care Provider: Zion Bartholomew MD 79-year-old female states that she has been having worsening abdominal pain over the past 24 hours. She has a notable history of complicated diverticulitis leading to a sigmoid colostomy back in October 2019. She also was treated for intra-abdominal abscesses at that time. 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 Most recently, along with her abdominal pain she had multiple episodes of non-bloody emesis this morning. Says her ostomy output has been normal. Decreased p.o. intake for past couple of days. Says her temperature at home was 99.9. Denies any chest pain, shortness of breath, or extremity pains. No other acute concerns raised. However, on review of systems, she says it feels like pressure when she has to urinate. Denies dysuria. - Past medical history includes metastatic lung adenocarcinoma, anxiety, arthritis, cataracts, depression, esophageal dyskinesia, fatigue, gastritis, triglyceridemia, GERD, diverticulitis, hyperlipidemia, hypothyroidism, IBS, oste oarthritis and osteopenia, sialoadenitis, thrush, COPD - Surgical history includes cataracts, D&C, cervical vasectomy, rotator cuff, C- section, left hip replacement - Social history includes current smoker since age 21. Denies alcohol use. Some THC use. Lives at home alone. Allergies Allergy/AdvReac Type Severity Reaction Status Date / Time nickel Allergy Intermediate Rash Verified 02/20/20 15:08 venlafaxine AdvReac Intermediate HTN Verified 02/20/20 15:08 clarithromycin AdvReac Mild N/V Verified 02/20/20 15:08 codeine AdvReac Mild UPSET Verified 02/20/20 15:08 STOMACH hydrocodone AdvReac Mild N/V Verified 02/20/20 15:08 metronidazole [From Flagyl] AdvReac Mild Gastrointestinal Verified 02/20/20 15:08 Upset Home Medications Home Medications Medication Instructions Recorded Confirmed Type folic acid 1 mg PO DIRECTED 08/04/19 02/20/20 History ondansetron HCl [Zofran] 4 mg PO TID PRN 08/30/19 02/20/20 History pantoprazole [Protonix] 40 mg PO QAM 08/30/19 02/20/20 History levothyroxine 100 mcg tablet 100 mcg PO QAM #90 tab 09/12/19 02/20/20 Rx oxycodone 5 mg tablet 5 mg PO Q6H PRN #40 tab 09/15/19 02/20/20 Rx aspirin [Aspir-81] 81 mg PO QAM 09/20/19 02/20/20 History omega-3 fatty acids 1,000 mg 1,000 mg PO DAILY #30 cap 10/21/19 02/20/20 Rx capsule vitamin E (dl, acetate) 100 unit 100 units PO DAILY #30 cap 10/21/19 02/20/20 Rx capsule citalopram 40 mg tablet 40 mg PO QAM #90 tab 01/09/20 02/20/20 Rx lorazepam 0.5 mg tablet 0.5 mg PO DAILY PRN #30 tab 01/14/20 02/20/20 Rx Past Med/Surg History Medical History Adenocarcinoma, lung Adrenal cortical adenoma (Acute) Anxiety Arthritis Biceps tendonitis Cataract Depression (Acute) Esophageal dyskinesia Essential hypertriglyceridemia (Acute) Fatigue Gastritis Gastroesophageal reflux disease (Acute) History of bronchitis History of diverticulitis (Resolved) Hyperlipidemia Hypothyroidism (Acute) Intermittent hydrarthrosis of elbow Irritable bowel syndrome (Acute) Lung cancer NEW DX Metastatic bone cancer radiation treatments completed 08/25/19. Olecranon bursitis Osteoarthritis Osteopenia (Acute) Pneumonia hx Sialoadenitis Surgical History History of cataract surgery RT/LEFT History of colonoscopy Dr. Veronica 12/2011 History of dilatation and curettage History of discectomy CERVICAL (GOOD ROM) History of repair of rotator cuff RT History of tooth extraction S/P section X 1 S/P hip replacement left. 07/02/2019. SAB with MAC. no issues. Family History Family/Other Family history of diabetes mellitus Brother Family hx of colon cancer Mother , age 66 Diabetes Cancer ovarian Coronary heart disease had acute MA which led to her Sister Cancer Family/Other Breast cancer Father , age 49 Suicide Alcoholism Social History Preferred Language: Tongan Communication Ability: Effective Visual Impairment: No Limitations Hearing Ability: Normal Sports Therapist Required: No Beliefs That Will Affect Care: None marital status: Unknown Current Living Situation: Family Current Living Situation Comment: lives with grandson current occupational status: retired current occupation: worked at [employer] Other Information That Helps Us Care for You: No other: 1 daughter Feels Safe at Home: Yes Safety Concerns: Feels Safe At This Time Smoking Status: Current every day smoker Tobacco Type: cigarettes ; Age Started Using Tobacco: 21 ; packs per day: 0.5 ; Cigarettes Per Day: 6 ; Second Hand Exposure: No ; Tobacco Cessation Education Requested by Patient: No Hx Alcohol Use: No Hx Substance Use: No Childhood Exposure to Second-Hand Smoke: Yes (both parents) caffeine: Yes Dental Care, Regularly: No Seatbelt Use: always Review of Systems Review of Systems: Constitutional: Positive borderline fever. Denies focal weakness. Eyes: Denies any visual loss or diplopia ENT: Denies any ear/nose/throat pain or difficulty speaking or swallowing Respiratory: Denies any dyspnea, cough, hemoptysis Cardiovascular: Denies any chest pain or feeling of edema Gastrointestinal: Positive abdominal pain, nausea, and vomiting. Denies diarrhea. Musculoskeletal: Denies any acute extremity pains, myalgias, or focal weakness Skin: Denies any known acute rashes or lesions Neuro: Denies any headache, acute focal weakness or numbness, or difficulties with speech or swallow. Physical Exam Physical Exam: GENERAL: Awake, alert, cachectic, appears attached fatigued, but does not appear in immediate distress. HENT: Normocephalic, atraumatic. Orophar EYES: Normal conjunctiva. Sclera non-icteric. NECK: Inspection normal. Supple and full ROM. No nuchal rigidity. CARDIAC: +S1S2 RRR, no murmurs. Left upper chest Mediport accessed. RESPIRATORY: Clear to auscultation. No wheezes or rales. Normal respiratory effort. GI: +BS, soft, non-distended. Positive generalized tenderness to palpation with mild guarding. Left-sided ostomy in place with stool in the bag. EXTREMITIES: No pedal edema or calf tenderness. Moving all extremities naturally and easily. NEURO: No gross neuro deficits. Normal, relatively upbeat mood. Results & Data Results & Data ([facility]) Vital Signs (Past 12 Hours) Vital Signs Temp Pulse Pulse Resp BP BP Pulse Ox 02/20/20 16:33 88 L 02/20/20 15:31 85 15 96 02/20/20 15:30 84 13 117/62 95 02/20/20 15:20 84 18 92 02/20/20 15:10 85 14 98 02/20/20 15:01 82 10 L 96 02/20/20 15:00 81 10 L 126/61 97 02/20/20 14:50 82 12 97 02/20/20 14:49 82 16 119/55 L 97 02/20/20 14:45 86 14 119/55 L 95 02/20/20 14:40 85 22 02/20/20 14:38 84 13 02/20/20 14:18 79 16 105/58 L 97 02/20/20 13:10 36.9 C 94 H 16 106/59 L 99 Laboratory Results 02/20/20 02/20/2002/19/20 Range/Units 14:45 13:49 13:46 WBC (4.8-10.8) K/uL RBC (4.2-5.4) M/uL Hgb (12.0-16.0) g/dL POC Hgb 8.8 L (12.0-16.0) g/dl Hct (37-47) % POC Hct 26 L (37-47) % MCV (80-100) fL MCH (25-34) pg MCHC (32-36) g/dL RDW Std Deviation (36.4-46.3) fL RDW Coeff of Raymunod (11.5-14.5) % Plt Count (130-400) K/uL MPV (7.4-10.4) fL Immature Gran % (Auto) % Neut % (Auto) % Lymph % (Auto) % Granite % (Auto) % Eos % (Auto) % Baso % (Auto) % Immature Gran # (Auto) (0.00-0.02) K/uL Neut # (Auto) (1.4-6.5) K/uL Lymph # (Auto) (1.2-3.4) K/uL Granite # (Auto) (0.11-0.59) K/uL Eos # (Auto) (0-0.5) K/uL Baso # (Auto) (0-0.2) K/uL Anisocytosis PT (9.0-12.0) Seconds INR (0.9-1.1) APTT (21.0-31.0) Seconds PTT Ratio POC Sodium 136 (135-144) mmol/L Sodium (136-145) mmol/L POC Potassium 3.2 L (3.3-5.0) mmol/L Potassium (3.5-5.1) mmol/L POC Chloride 100 L (101-112) mmol/L Chloride (98-107) mmol/L Carbon Dioxide (21-32) mmol/L POC Total CO2 24 (24-31) mmol/L Anion Gap (3-11) POC Anion Gap 16.0 (16-25) mmol/L POC BUN 12 (7-18) mg/dl BUN (7-18) mg/dl Creatinine (0.6-1.2) mg/dl POC Creatinine 0.6 (0.6-1.3) mg/dl Est Cr Clr Drug Dosing Est GFR ( Amer) Est GFR (Non-Af Amer) BUN/Creatinine Ratio (10-20) Glucose (70-99) mg/dl POC Glucose (other) 96 (70-99) mg/dl Lactate (0.4-2.0) mmol/L Calcium (8.5-10.1) mg/dl POC Ioniz Calcium Turner 1.20 (1.12-1.32) mmol/l Magnesium (1.8-2.4) mg/dl Total Bilirubin (0.2-1) mg/dl AST (15-37) U/L ALT (12-78) U/L Alkaline Phosphatase (45-117) U/L Troponin I (0-0.045) ng/ml Total Protein (6.4-8.2) gm/dl Albumin (3.4-5.0) gm/dl Globulin (2.5-4.0) gm/dl Albumin/Globulin Ratio (0.9-2) Procalcitonin (0-0.5) ng/ml Urine Color Dark Yellow Urine Appearance Clear (Clear) Urine pH 5.5 (4.5-7.5) Ur Specific [place] 1.018 (1.000-1.030) Urine Protein Negative (Negative) Urine Glucose (UA) Negative (Negative) Urine Ketones Negative (Negative) Urine Blood Negative (Negative) Urine Nitrite Negative (Negative) Urine Bilirubin Negative (Negative) Urine Urobilinogen Negative (Negative) Ur Leukocyte Esterase Negative (Negative) Influenza Type A (PCR) Neg for Influ A (Neg) Influenza Type B (PCR) Neg for Influ B (Neg) 02/20/20 02/20/20 02/20/20 Range/Units 13:44 13:44 13:44 WBC (4.8-10.8) K/uL RBC (4.2-5.4) M/uL Hgb (12.0-16.0) g/dL POC Hgb (12.0-16.0) g/dl Hct (37-47) % POC Hct (37-47) % MCV (80-100) fL MCH (25-34) pg MCHC (32-36) g/dL RDW Std Deviation (36.4-46.3) fL RDW Coeff of Raymundo (11.5-14.5) % Plt Count (130-400) K/uL MPV (7.4-10.4) fL Immature Gran % (Auto) % Neut % (Auto) % Lymph % (Auto) % Granite % (Auto) % Eos % (Auto) % Baso % (Auto) % Immature Gran # (Auto) (0.00-0.02) K/uL Neut # (Auto) (1.4-6.5) K/uL Lymph # (Auto) (1.2-3.4) K/uL Granite # (Auto) (0.11-0.59) K/uL Eos # (Auto) (0-0.5) K/uL Baso # (Auto) (0-0.2) K/uL Anisocytosis PT 11.9 (9.0-12.0) Seconds INR 1.1 (0.9-1.1) APTT 29.4 (21.0-31.0) Seconds PTT Ratio 1.1 POC Sodium (135-144) mmol/L Sodium 138 (136-145) mmol/L POC Potassium (3.3-5.0) mmol/L Potassium 3.2 L (3.5-5.1) mmol/L POC Chloride (101-112) mmol/L Chloride 103 (98-107) mmol/L Carbon Dioxide 25 (21-32) mmol/L POC Total CO2 (24-31) mmol/L Anion Gap 10.0 (3-11) POC Anion Gap (16-25) mmol/L POC BUN (7-18) mg/dl BUN 13 (7-18) mg/dl Creatinine 0.53 L (0.6-1.2) mg/dl POC Creatinine (0.6-1.3) mg/dl Est Cr Clr Drug Dosing Not Reportable Est GFR ( Amer) 106.1 Est GFR (Non-Af Amer) 91.6 BUN/Creatinine Ratio 23.7 H (10-20) Glucose 97 (70-99) mg/dl POC Glucose (other) (70-99) mg/dl Lactate 0.9 (0.4-2.0) mmol/L Calcium 8.7 (8.5-10.1) mg/dl POC Ioniz Calcium Turner (1.12-1.32) mmol/l Magnesium 1.5 L (1.8-2.4) mg/dl Total Bilirubin 0.3 (0.2-1) mg/dl AST 11 L (15-37) U/L ALT < 6 L (12-78) U/L Alkaline Phosphatase 72 (45-117) U/L Troponin I < 0.015 (0-0.045) ng/ml Total Protein 6.5 (6.4-8.2) gm/dl Albumin 2.1 L (3.4-5.0) gm/dl Globulin 4.4 H (2.5-4.0) gm/dl Albumin/Globulin Ratio 0.5 L (0.9-2) Procalcitonin (0-0.5) ng/ml Urine Color Urine Appearance (Clear) Urine pH (4.5-7.5) Ur Specific [place] (1.000-1.030) Urine Protein (Negative) Urine Glucose (UA) (Negative) Urine Ketones (Negative) Urine Blood (Negative) Urine Nitrite (Negative) Urine Bilirubin (Negative) Urine Urobilinogen (Negative) Ur Leukocyte Esterase (Negative) Influenza Type A (PCR) (Neg) Influenza Type B (PCR) (Neg) 02/20/20 02/20/20 Range/Units 13:44 13:44 WBC 17.60 H (4.8-10.8) K/uL RBC 3.37 L (4.2-5.4) M/uL Hgb 8.4 L (12.0-16.0) g/dL POC Hgb (12.0-16.0) g/dl Hct 27.6 L (37-47) % POC Hct (37-47) % MCV 81.9 (80-100) fL MCH 24.9 L (25-34) pg MCHC 30.4 L (32-36) g/dL RDW Std Deviation 62.7 H (36.4-46.3) fL RDW Coeff of Raymundo 21.1 H (11.5-14.5) % Plt Count 313 (130-400) K/uL MPV 8.7 (7.4-10.4) fL Immature Gran % (Auto) 0.3 % Neut % (Auto) 88.7 % Lymph % (Auto) 3.1 % Granite % (Auto) 7.5 % Eos % (Auto) 0.3 % Baso % (Auto) 0.1 % Immature Gran # (Auto) 0.06 H (0.00-0.02) K/uL Neut # (Auto) 15.60 H (1.4-6.5) K/uL Lymph # (Auto) 0.55 L (1.2-3.4) K/uL Granite # (Auto) 1.32 H (0.11-0.59) K/uL Eos # (Auto) 0.06 (0-0.5) K/uL Baso # (Auto) 0.01 (0-0.2) K/uL Anisocytosis Present PT (9.0-12.0) Seconds INR (0.9-1.1) APTT (21.0-31.0) Seconds PTT Ratio POC Sodium (135-144) mmol/L Sodium (136-145) mmol/L POC Potassium (3.3-5.0) mmol/L Potassium (3.5-5.1) mmol/L POC Chloride (101-112) mmol/L Chloride (98-107) mmol/L Carbon Dioxide (21-32) mmol/L POC Total CO2 (24-31) mmol/L Anion Gap (3-11) POC Anion Gap (16-25) mmol/L POC BUN (7-18) mg/dl BUN (7-18) mg/dl Creatinine (0.6-1.2) mg/dl POC Creatinine (0.6-1.3) mg/dl Est Cr Clr Drug Dosing Est GFR ( Amer) Est GFR (Non-Af Amer) BUN/Creatinine Ratio (10-20) Glucose (70-99) mg/dl POC Glucose (other) (70-99) mg/dl Lactate (0.4-2.0) mmol/L Calcium (8.5-10.1) mg/dl POC Ioniz Calcium Turner (1.12-1.32) mmol/l Magnesium (1.8-2.4) mg/dl Total Bilirubin (0.2-1) mg/dl AST (15-37) U/L ALT (12-78) U/L Alkaline Phosphatase (45-117) U/L Troponin I (0-0.045) ng/ml Total Protein (6.4-8.2) gm/dl Albumin (3.4-5.0) gm/dl Globulin (2.5-4.0) gm/dl Albumin/Globulin Ratio (0.9-2) Procalcitonin 0.11 (0-0.5) ng/ml Urine Color Urine Appearance (Clear) Urine pH (4.5-7.5) Ur Specific [place] (1.000-1.030) Urine Protein (Negative) Urine Glucose (UA) (Negative) Urine Ketones (Negative) Urine Blood (Negative) Urine Nitrite (Negative) Urine Bilirubin (Negative) Urine Urobilinogen (Negative) Ur Leukocyte Esterase (Negative) Influenza Type A (PCR) (Neg) Influenza Type B (PCR) (Neg) Medications Administered Piperacillin Sod/Tazobactam Sod (Zosyn) 4.5 gm in 120 mls @ 30 mls/hr IV NOW ONE Stop: 02/20/20 19:20 Last Admin: 02/20/20 15:49 Dose: 30 mls/hr Documented by: [id number] Ioversol (Optiray 320 100ml) 93 ml IV ONCE PRN PRN Reason: Interaction Checking Stop: 02/24/20 14:28 Last Admin: 02/20/20 14:29 Dose: 93 ml Documented by: [id number] Discontinued Medications Sodium Chloride (Nss 1000ml) 1,000 mls @ 999 mls/hr IV .Q1H1M ONE Stop: 02/20/20 14:22 Last Admin: 02/20/20 13:50 Dose: 999 mls/hr Documented by: [id number] Magnesium Sulfate/Dextrose (Magnesium Sulfate / D5w) 1 gm in 100 mls @ 100 mls/hr IV Q1H JOSE E Stop: 02/20/20 16:46 Last Admin: 02/20/20 17:29 Dose: 100 mls/hr Documented by: [id number] Infusion: 02/20/20 16:32 Dose: 100 mls/hr Documented by: [id number] Admin: 02/20/20 15:32 Dose: 100 mls/hr Documented by: [id number] Morphine Sulfate (Morphine Sulfate) 4 mg IV NOW STA Stop: 02/20/20 15:11 Last Admin: 02/20/20 15:25 Dose: 4 mg Documented by: [id number] Ondansetron HCl (Zofran) 4 mg IV NOW STA Stop: 02/20/20 15:11 Last Admin: 02/20/20 15:25 Dose: 4 mg Documented by: [id number] Code Status & VTE Plan Code Status Full code VTE Prophylaxis Plan VTE Prophylaxis will be ordered: Yes Supervising Physician Co-Signing Physician Notes I personally examined the patient and verified all thorpe points of history and exam, discussed case, and agree with decision making with Dr. Brody with the following additions/exceptions: Patient is a 79-year-old female with a history of stage IV adenocarcinoma the lung and recent complicated history of diverticulitis with perforation and multiple intra-abdominal abscesses status post sigmoidectomy and multiple hospitalizations. She presents with nausea vomiting x1 day, abdominal pain and decreased appetite with a low-grade fever. She was found to have a small bowel obstruction and multiple pelvic abscesses on imaging as well as bilateral hydronephrosis. She was not septic on arrival but did have an elevated white blood cell count of 17, with a negative lactate and negative procalcitonin. History and ROS reviewed as above Vitals reviewed Gen: AAOx3, NAD, thin HEENT: Anicteric sclerae, EOMI, oropharynx mildly dry CV: RRR no mgr nl S1S2 Pulm: Mild crackles at the bases, otherwise clear Abd: +BS soft diffuse mild tenderness more so in the lower quadrants without guarding or rebound tenderness, ostomy in place with stool and gas, ND no masses or hernias Ext: No edema, 2+ DP pulses Skin: No rashes, warm/dry Neuro: Full strength throughout Labs and imaging all personally reviewed by me 79-year-old female with stage IV lung adenocarcinoma and a recent history of intra-abdominal abscesses status post perforated bowel with colostomy here with recurrent abdominal pain, small bowel obstruction, and multiple pelvic abscesses, some are improved from previous but one is a new one. Given low-grade temperatures, worsening leukocytosis, will treat with IV antibiotics with Zosyn and vancomycin Surgical consult is appreciated Follow cultures -Continue IV fluids and replace electrolytes as needed, pain control as needed Apparently, the ER spoke with specialist at [facility] in [place] who said that her abscesses are too small for interventional radiology to aspirate Resident Activity Tracking Resident Involvement: Resident Care Provided Care Provided: Adult Hospital Medicine (1) Adenocarcinoma of lung, stage 4 Laterality: unspecified laterality Qualified Code(s): C34.90 - Malignant neoplasm of unspecified part of unspecified bronchus or lung (2) Anemia Anemia type: other cause Other causes of anemia: other cause, not classified Qualified Code(s): D64.89 - Other specified anemias (3) Hyperlipidemia Hyperlipidemia type: pure hypertriglyceridemia Qualified Code(s): E78.1 - Pure hyperglyceridemia (4) Hypothyroidism Hypothyroidism type: acquired Qualified Code(s): E03.9 - Hypothyroidism, unspecified (5) COPD (chronic obstructive pulmonary disease) COPD type: unspecified COPD Qualified Code(s): J44.9 - Chronic obstructive pulmonary disease, unspecified (6) GERD (gastroesophageal reflux disease) Esophagitis presence: without esophagitis Qualified Code(s): K21.9 - Gastro- esophageal reflux disease without esophagitis
[2020-02-20] MEDS ORDERED: LORazepam 0.25 MG/0.5 ML VIAL IV PRN (19:43)
[2020-02-20] MEDS ORDERED: PIPERACILLIN/TAZOBACTAM 3.375 GM in DEXTROSE 5% 100 ML IV SCH (19:43)
[2020-02-20] MEDS ORDERED: VANCOMYCIN CONSULT ACTIVE PRN (19:43)
[2020-02-20] MEDS ORDERED: VANCOMYCIN HCL 1,000 MG in SODIUM CHLORIDE 0.9% 500 ML IV ONE (19:43)
--- NOTE | 2020-02-20 19:49 | Electrocardiogram Report ---
Test Reason : Blood Pressure : / mmHG Vent. Rate : 084 BPM Atrial Rate : 084 BPM P-R Int : 128 ms QRS Dur : 084 ms QT Int : 386 ms P-R-T Axes : 078 034 074 degrees QTc Int : 456 ms Normal sinus rhythm Low voltage QRS Abnormal ECG Confirmed by Jono Huerta ([id number]) on 02/20/2020 7:49:04 PM Referred By: SELF Confirmed By:Omari Huerta
[2020-02-20] MEDS ORDERED: VANCOMYCIN HCL 1,000 MG in SODIUM CHLORIDE 0.9% 250 ML IV SCH (20:30)
[2020-02-20] MEDS: LACTATED RINGER'S 1,000 ML IV SCH (20:36)
[2020-02-20] MEDS: POTASSIUM CHLORIDE / WTR 10 MEQ/100 ML PLCT IV SCH ×4 (20:36→23:52)
--- NOTE | 2020-02-20 20:58 | Pharmacy Report ---
Pharmacy Abx Initial Consult - Date of Service February 20, 2020 - Pharmacy Dosing Scope Date of Consult: 02/20/20 Consultation requested by: Dr. Brody Pharmacy is consulted to initiate Vancomycin and Zosyn IV dosing therapy, order appropriate labs and adjust drug dose/frequency. - Subjective The patient is a 79 year old F admitted on 02/20/20 17:18. - Objective Height: 5 ft 3 in Weight: 47.6 kg Vital Signs (Past 12hrs): Vital Signs Temp Pulse Pulse Resp BP BP Pulse Ox 02/20/20 19:22 36.7 C 80 18 107/63 90 02/20/20 18:42 71 18 114/55 L 95 02/20/20 18:01 77 19 98 02/20/20 18:00 79 16 104/56 L 99 02/20/20 17:50 77 18 99 02/20/20 17:40 79 19 98 02/20/20 17:31 87 15 98 02/20/20 17:30 84 16 114/55 L 99 02/20/20 17:20 83 17 99 02/20/20 17:10 84 16 99 02/20/20 17:01 83 13 99 02/20/20 17:00 82 12 100/59 L 99 02/20/20 16:50 87 12 99 02/20/20 16:40 91 H 13 98 02/20/20 16:33 88 L 02/20/20 16:31 83 13 98 02/20/20 16:30 87 15 101/59 L 95 02/20/20 16:20 88 23 88 L 02/20/20 16:10 86 15 90 02/20/20 16:01 84 12 93 02/20/20 16:00 85 14 108/57 L 92 02/20/20 15:50 83 15 94 02/20/20 15:40 83 14 92 02/20/20 15:31 85 15 96 02/20/20 15:30 84 13 117/62 95 02/20/20 15:20 84 18 92 02/20/20 15:10 85 14 98 02/20/20 15:01 82 10 L 96 02/20/20 15:00 81 10 L 126/61 97 02/20/20 14:50 82 12 97 02/20/20 14:49 82 16 119/55 L 97 02/20/20 14:45 86 14 119/55 L 95 02/20/20 14:40 85 22 02/20/20 14:38 84 13 02/20/20 14:18 79 16 105/58 L 97 02/20/20 13:10 36.9 C 94 H 16 106/59 L 99 Lab Results (24hrs): Laboratory Tests (24 Hours) 02/20/20 02/20/20 02/20/20 13:44 13:44 13:44 WBC 17.60 H Neut # (Auto) 15.60 H Creatinine 0.53 L Est Cr Clr Drug Dosing Not Reportable Procalcitonin 0.11 Micro Results: 02/20/20 14:03 Aerobic Blood Culture - Pending Blood Anaerobic Blood Culture - Pending 02/20/20 13:44 Aerobic Blood Culture - Pending Blood Anaerobic Blood Culture - Pending - Risk Factors for Resistance * Hospitalization for 48 hours or more within the past 90 days * Immunocompromised (chronic steroid therapy, chemotherapy, immunomodulators) * History of infection with a multidrug-resistant organism: 08Apr abdomen wound grew resistant pseudomonas - Assessment & Plan Assessment * 79 year old F admitted to [facility] on 02/20/20 with abdominal pain * PMH includes complicated diverticulitis and right lower lobe metastatic lung adenocarcinoma * S/p sigmoid colostomy in October 2019. Of note, patient was also treated for intra-abdominal abscesses at that time * CT abdomen/pelvis from today shows new, small abscess of colon * Vancomycin and Zosyn started empirically * Blood cultures obtained and pending Plan Vancomycin IV * Estimated PK Parameters: Vd 0.7 L/kg, Momo 0.048 hr-1, t1/2 14.4 hr * Loading dose: 1000 mg (21 mg/kg) * Maintenance dose: 750 mg IV (16 mg/kg) every 18 hours * Goal trough level: 15 to 20 mcg/mL Piperacillin/tazobactam * 4.5 g bolus administered over 30 minutes, then 3.375 g IV extended infusion every 8 hours for CrCl greater than 20 mL/min Pharmacy will continue to follow and will adjust dose/frequency as necessary. Thank you.
[2020-02-20] MEDS: PIPERACILLIN/TAZOBACTAM 3.375 GM in DEXTROSE 5% 100 ML IV SCH (21:20)
[2020-02-20] MEDS: MoRPHine SULFATE 4 MG/ML 1 ML CARP\\VIAL IV PRN (22:38)
[2020-02-21] MEDS: ONDANSETRON INJ 2 MG/ML 2 ML VIAL IV PRN ×2 (01:14→21:09)
[2020-02-21] MEDS: PIPERACILLIN/TAZOBACTAM 3.375 GM in DEXTROSE 5% 100 ML IV SCH ×3 (04:23→19:54)
[2020-02-21] MEDS: LACTATED RINGER'S 1,000 ML IV SCH ×2 (06:46→15:51)
--- NOTE | 2020-02-21 07:49 | Billing Data ---
Date of Service February 20, 2020 Coding Level of Care Code 52282 Initial Inpt Care Lvl 3
[2020-02-21 08:20] LABS: Basophils # (auto) 0.02 K/uL (0-0.2); Basophils % (auto) 0.2 %; Eosinophils # (auto) 0.15 K/uL (0-0.5); Eosinophils % (auto) 1.5 %; Hematocrit (blood only) 23.1 % (37-47); Hemoglobin 7.1 g/dL (12.0-16.0); Immature Granulocytes # (auto) 0.04 K/uL (0.00-0.02); Immature Granulocytes % (auto) 0.4 %; Lymphocytes # (auto) 0.58 K/uL (1.2-3.4); Lymphocytes % (auto) 5.7 %; Mean Corpuscular Hemoglobin 25.4 pg (25-34); Mean Corpuscular Hgb Conc 30.7 g/dL (32-36); Mean Corpuscular Volume 82.8 fL (80-100); Mean Platelet Volume 8.5 fL (7.4-10.4); Monocytes # (auto) 1.05 K/uL (0.11-0.59); Monocytes % (auto) 10.3 %; Neutrophils # (auto) 8.33 K/uL (1.4-6.5); Neutrophils % (auto) 81.9 %; Platelet Count 285 K/uL (130-400); RDW Standard Deviation 62.8 fL (36.4-46.3); Red Blood Count 2.79 M/uL (4.2-5.4); White Blood Count 10.17 K/uL (4.8-10.8)
[2020-02-21 08:45] LABS: BUN Creatinine Ratio 24.7 (10-20); Creatinine Clr Calc Pharmacy 72.3 ml/min; Est GFR (African American) 108.9; Magnesium 1.8 mg/dl (1.8-2.4); Potassium 3.5 mmol/L (3.5-5.1)
[2020-02-21 08:49] LABS: Anisocytosis Present
[2020-02-21 08:51] LABS: Ferritin 453.3 ng/ml (8-388)
[2020-02-21 08:59] LABS: Folate (Folic Acid) 15.42 ng/ml (>5.38)
[2020-02-21] MEDS: MoRPHine SULFATE 4 MG/ML 1 ML CARP\\VIAL IV PRN ×2 (09:27→23:42)
--- NOTE | 2020-02-21 10:32 | Surgery Consultation ---
Date of Consultation February 21, 2020 Assessment & Plan (1) Small bowel obstruction: Likely secondary to adhesions, inflammation from intra-abdominal abscesses. Will trial nonoperative management with bowel rest, IVF resuscitation, NG decompression if worsens or continued vomiting. Present on Admission?: Yes (2) Abdominal pain: secondary to abscesses/ SBO. Present on Admission?: Yes (3) Lung cancer: Stage 4 with bone mets on chemotherapy Present on Admission?: Yes (4) Pelvic abscess: Multiple small abscesses not felt to be amenable to CT drainage. Continue IV antibiotics as they are small enough that they may resolve without requiring drainage. 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 She has been undergoing chemotherapy under the care of Dr. Quintero. This has been complicated/ delayed due to intra-abdominal abscesses/ infections which were being managed conservatively. She has been able to receive 3 rounds of chemo and appeared to be responding. In the last day or two, she has developed worsening abdominal pain - crampy, sharp/ intense, up to 10/10 intensity, comes in waves. Vomited last night. Ostomy is still functioning with loose, liquid stool. Came to ER and CT scan again showed abscesses, some newer, evidence of small bowel obstruction. This was discussed with Dr. Cai (colorectal surgery) in [place] by ER and he recommended trial of IV antibiotics. Still having pain this am, just took some pain meds. No further nausea. Allergies Allergy/AdvReac Type Severity Reaction Status Date / Time nickel Allergy Intermediate Rash Verified 02/20/20 15:08 venlafaxine AdvReac Intermediate HTN Verified 02/20/20 15:08 clarithromycin AdvReac Mild N/V Verified 02/20/20 15:08 codeine AdvReac Mild UPSET Verified 02/20/20 15:08 STOMACH hydrocodone AdvReac Mild N/V Verified 02/20/20 15:08 metronidazole [From Flagyl] AdvReac Mild Gastrointestinal Verified 02/20/20 15:08 Upset Home Medications Home Medications Medication Instructions Recorded Confirmed Type folic acid 1 mg PO DIRECTED 08/04/19 02/20/20 History ondansetron HCl [Zofran] 4 mg PO TID PRN 08/30/19 02/20/20 History pantoprazole [Protonix] 40 mg PO QAM 08/30/19 02/20/20 History levothyroxine 100 mcg tablet 100 mcg PO QAM #90 tab 09/12/19 02/20/20 Rx oxycodone 5 mg tablet 5 mg PO Q6H PRN #40 tab 09/15/19 02/20/20 Rx aspirin [Aspir-81] 81 mg PO QAM 09/20/19 02/20/20 History omega-3 fatty acids 1,000 mg 1,000 mg PO DAILY #30 cap 10/21/19 02/20/20 Rx capsule vitamin E (dl, acetate) 100 unit 100 units PO DAILY #30 cap 10/21/19 02/20/20 Rx capsule citalopram 40 mg tablet 40 mg PO QAM #90 tab 01/09/20 02/20/20 Rx lorazepam 0.5 mg tablet 0.5 mg PO DAILY PRN #30 tab 01/14/20 02/20/20 Rx Patient History Medical History Adenocarcinoma, lung Adrenal cortical adenoma (Acute) Anxiety Arthritis Biceps tendonitis Cataract Depression (Acute) Esophageal dyskinesia Essential hypertriglyceridemia (Acute) Fatigue Gastritis Gastroesophageal reflux disease (Acute) History of bronchitis History of diverticulitis (Resolved) Hyperlipidemia Hypothyroidism (Acute) Intermittent hydrarthrosis of elbow Irritable bowel syndrome (Acute) Lung cancer NEW DX Metastatic bone cancer radiation treatments completed 08/25/19. Olecranon bursitis Osteoarthritis Osteopenia (Acute) Pneumonia hx Sialoadenitis Surgical History History of cataract surgery RT/LEFT History of colonoscopy Dr. Veronica 12/2011 History of dilatation and curettage History of discectomy CERVICAL (GOOD ROM) History of repair of rotator cuff RT History of tooth extraction S/P section X 1 S/P hip replacement left. 07/02/2019. SAB with MAC. no issues. Family History Family/Other Family history of diabetes mellitus Brother Family hx of colon cancer Mother , age 66 Diabetes Cancer ovarian Coronary heart disease had acute VA which led to her Sister Cancer Family/Other Breast cancer Father , age 49 Suicide Alcoholism Social History Preferred Language: Salvadorean Communication Ability: Effective Visual Impairment: No Limitations Hearing Ability: Normal Manager [employer] Required: No Beliefs That Will Affect Care: None marital status: Unknown Current Living Situation: Family Current Living Situation Comment: lives with grandson current occupational status: retired current occupation: worked at [employer] Other Information That Helps Us Care for You: No other: 1 daughter Feels Safe at Home: Yes Safety Concerns: Feels Safe At This Time Smoking Status: Current every day smoker Tobacco Type: cigarettes ; Age Started Using Tobacco: 21 ; packs per day: 0.5 ; Cigarettes Per Day: 6 ; Second Hand Exposure: No ; Tobacco Cessation Education Requested by Patient: No Hx Alcohol Use: No Hx Substance Use: No Childhood Exposure to Second-Hand Smoke: Yes (both parents) caffeine: Yes Dental Care, Regularly: No Seatbelt Use: always Review of Systems Review of Systems: All systems reviewed & are unremarkable except as noted in HPI & below Physical Exam Constitutional: + thin; no acute distress Eyes: PERRL, conjunctivae normal, anicteric sclerae Respiratory: normal respiratory effort, lungs clear to auscultation Cardiovascular: RRR, no murmur, no edema Gastrointestinal (Abdomen): Inspection/Auscultation: abdomen normal to inspection; abdomen not distended and + abnormal bowel sounds Percussion/Palpation: + abdomen tender (very mild) and abdomen soft; no guarding ostomy functioning with liquid brown stool Neurologic: moves all extremities; no focal motor deficits Psychiatric: Orientation: alert and oriented x 3 Results & Data Vital Signs (Past 12 Hours) Vital Signs Temp Pulse Resp BP Pulse Ox Pulse Ox 02/21/20 07:51 36.7 C 88 18 92/53 L 90 02/20/20 23:30 93 02/20/20 22:52 36.6 C 71 18 104/60 93 Laboratory Results Abnormal lab results 02/20/20 02/20/20 02/20/20 Range/Units 13:44 13:44 13:46 WBC 17.60 H (4.8-10.8) K/uL RBC 3.37 L (4.2-5.4) M/uL Hgb 8.4 L (12.0-16.0) g/dL POC Hgb 8.8 L (12.0-16.0) g/dl Hct 27.6 L (37-47) % POC Hct 26 L (37-47) % MCH 24.9 L (25-34) pg MCHC 30.4 L (32-36) g/dL RDW Std Deviation 62.7 H (36.4-46.3) fL RDW Coeff of Raymundo 21.1 H (11.5-14.5) % Immature Gran # (Auto) 0.06 H (0.00-0.02) K/uL Neut # (Auto) 15.60 H (1.4-6.5) K/uL Lymph # (Auto) 0.55 L (1.2-3.4) K/uL [place] # (Auto) 1.32 H (0.11-0.59) K/uL POC Potassium 3.2 L (3.3-5.0) mmol/L Potassium 3.2 L (3.5-5.1) mmol/L POC Chloride 100 L (101-112) mmol/L Creatinine 0.53 L (0.6-1.2) mg/dl BUN/Creatinine Ratio 23.7 H (10-20) Calcium (8.5-10.1) mg/dl Magnesium 1.5 L (1.8-2.4) mg/dl Iron (35-150) mcg/dl TIBC (250-450) mcg/dl Transferrin (200-360) mg/dl Transferrin % Sat (15-50) % Ferritin (8-388) ng/ml AST 11 L (15-37) U/L ALT < 6 L (12-78) U/L Albumin 2.1 L (3.4-5.0) gm/dl Globulin 4.4 H (2.5-4.0) gm/dl Albumin/Globulin Ratio 0.5 L (0.9-2) Vitamin B12 (211-911) pg/ml 02/21/20 02/21/20 02/21/20 Range/Units 07:59 07:59 07:59 WBC (4.8-10.8) K/uL RBC 2.79 L (4.2-5.4) M/uL Hgb 7.1 L (12.0-16.0) g/dL POC Hgb (12.0-16.0) g/dl Hct 23.1 L (37-47) % POC Hct (37-47) % MCH (25-34) pg MCHC 30.7 L (32-36) g/dL RDW Std Deviation 62.8 H (36.4-46.3) fL RDW Coeff of Raymundo 21.0 H (11.5-14.5) % Immature Gran # (Auto) 0.04 H (0.00-0.02) K/uL Neut # (Auto) 8.33 H (1.4-6.5) K/uL Lymph # (Auto) 0.58 L (1.2-3.4) K/uL [place] # (Auto) 1.05 H (0.11-0.59) K/uL POC Potassium (3.3-5.0) mmol/L Potassium (3.5-5.1) mmol/L POC Chloride (101-112) mmol/L Creatinine 0.49 L (0.6-1.2) mg/dl BUN/Creatinine Ratio 24.7 H (10-20) Calcium 8.0 L (8.5-10.1) mg/dl Magnesium (1.8-2.4) mg/dl Iron 13 L (35-150) mcg/dl TIBC 132 L (250-450) mcg/dl Transferrin 103 L (200-360) mg/dl Transferrin % Sat 9 L (15-50) % Ferritin 453.3 H (8-388) ng/ml AST (15-37) U/L ALT (12-78) U/L Albumin (3.4-5.0) gm/dl Globulin (2.5-4.0) gm/dl Albumin/Globulin Ratio (0.9-2) Vitamin B12 1193 H (211-911) pg/ml Diagnostic Findings CT scan abd/ pelvis: FINDINGS: Mild interlobular septal thickening within the lung bases, unchanged. 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 Nondisplaced pathologic fracture within the left superior acetabulum is again noted. The left hip prosthesis remains unchanged. There is a small pericardial effusion, unchanged. No hepatic or splenic masses. The spleen remains enlarged. A 1.3 cm left adrenal gland nodule. Normal right adrenal gland. The pancreas is unremarkable. Bilateral renal hypodense lesions are again noted. There is mild to moderate bilateral hydroureteronephrosis to the level of the pelvis. This is new compared the prior study. No retroperitoneal lymphadenopathy. Interval development of a small amount of ascites. Postoperative changes consistent with a prior left lower quadrant colostomy. Colonic diverticulosis. Moderate stool within the transverse colon. A punctate gallstone. No gallbladder wall thickening. There is thickening of the gastric antrum, unchanged. Multiple mildly dilated fluid-filled loops of small bowel seen within the abdomen. The distal small bowel loops are decompressed. Probable transition point seen within the left deep pelvis. Therefore, this is consistent with interval with a small bowel obstruction. There is mild thickening of the sigmoid colon and distal descending colon. There are multiple small peripheral enhancing fluid collections seen surrounding the sigmoid: Within the left side of the pelvis. Some of these contain gas and are consistent with multifocal abscesses. Overall, these have slightly improved compared to the prior study. The bladder is decompressed. The uterus and bilateral adnexa are not well visualized due to metallic artifact from the left hip prosthesis in the multifocal abscesses. There is a 3.3 cm gas and fluid collection within the right side the abdomen best in image 203. This appears to abut the ascending colon and likely represents an additional abscess. Moderate body wall edema. IMPRESSION: 1. Interval almost small bowel obstruction with a transition point likely located within the left deep pelvis. 2. Multifocal abscesses within the pelvis have slightly improved. There appears to be a new small abscess abutting the ascending colon. These abscesses could be due to postoperative change, anastomotic leak, or acute diverticulitis. Clinical correlation recommended. 3. Interval development of moderate bilateral hydroureteronephrosis to the level of the deep pelvis. The obstruction is likely secondary to the multiple pelvic abscesses. 4. Thickening of the sigmoid colon and distal descending colon may be reactive to the abscesses. 5. Small amount of ascites has developed in the interval. 6. Small pericardial effusion, unchanged. 7. Splenomegaly, unchanged. 8. 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 No change in the nondisplaced pathologic fracture of the left acetabulum. 9. Additional findings as described above.
[2020-02-21] MEDS: PANTOprazole 40 MG in SYRINGE 0 ML IV SCH (10:58)
[2020-02-21] MEDS: FLUCONAZOLE 100 MG TAB PO SCH (12:07)
[2020-02-21] MEDS: VANCOMYCIN HCL 750 MG in SODIUM CHLORIDE 0.9% 250 ML IV SCH (13:31)
[2020-02-21 14:29] LABS: Hematocrit (blood only) 23.2 % (37-47)
--- NOTE | 2020-02-21 15:17 | Family Medicine Progress Note ---
Date of Service February 21, 2020 Assessment & Plan (1) Abdominal pain: 79-year-old female was admitted on 20 Feb 2020 after c/o abdominal pain. Abdominal pain, small bowel obstruction, abdominal abscesses: Notable history of prior SBO, diverticulitis, pelvic abscesses and s/p sigmoid colostomy in Oct 2019. 08Apr abdomen wound grew resistant pseudomonas. Most recently, patient had acutely worsening pain x 24 hours prior to admit. Blood cultures pending. CT a/p notes SBO, multifocal abscesses, ascites (though see full report). 22May started vancomycin and Zosyn. NPO. On morphine and Zofran for symptom control. - See general surgery note. Will start with non-operative management. Recommended NGT if worsens or continued vomiting. Multiple small abscesses not thought to be amenable to CT drainage. Continue antibiotics. Urinary pressure: Patient feels relatively acute pressure with urination but no pain. CT a/p noted moderate bilateral hydroureteronephrosis likely secondary to pelvic abscesses. UA was negative. - Discussed the case with on-call urology (Dr. Tamez). He stated given that she is still voiding and has a normal creatinine there is no role for any intervention at this time. - Watching patient's urinary output. Bladder scan each shift and straight cath if PVR > 350. Anemia: Hx of transfusion after Oct 2019 surgery. Admit Hb 8.4, MCV 82. Recent comparisons around 10. On recheck, Hb down to 7.1. Ordered type and screen, got written transfusion consent. Iron studies suggestive of iron deficiency vs anemia of chronic inflammation. Normal Vitamin B12 and folate levels. - Monitoring closely in case of need for transfusion. Afternoon recheck was Hb 7.0. Ordered iron sucrose 300 mg IV daily x 3 doses. Hypokalemia, hypomagnesemia: Admit K 3.2, Mg 1.5. Replaced both, improved. Monitoring. RLL metastatic lung adenocarcinoma (dx Jun 2019): Mets to bone and previous left hip replacement. PMH chemo and radiation. Previously followed by Dr. Quintero of heme-onc. Pending outpatient appointment with Dr. Judd. Ongoing medical issues: - HTN, HLD: Patient says she is not on medication for this. Does take aspirin "for her heart", which will be held for now. - COPD: Life-long current smoker. Denies ever needing any respiratory inhalers. --- Was noted to have a SpO2 drop to 88% after getting morphine. Will monitor and provide supplemental NC oxygen prn goal > 92%. - Hypothyroidism: 08May TSH 3.8. Held home synthroid. - GERD: Converted home pantoprazole to IV. - Depression/anxiety: Held home celexa. Says her in December. Will keep as needed lorazepam. - PMH thrush: Says she is prone to thrush after antibiotics, but not at present. Started on prophylactic diflucan daily, but will monitor. Code status: DNR/DNI (confirmed with patient on admit). Diet: NPO. LR at 100 mL/ hr. DVT prophy: SCDs. Heparin BID. PT/OT: Deferred on admission. Disbo: Admit to [facility]. Patient lives at home. Presently grandson lives with her. (2) SBO (small bowel obstruction): (3) Pelvic abscess: (4) Hydroureteronephrosis: (5) Anemia: (6) Hypokalemia: (7) Hypomagnesemia: (8) Adenocarcinoma of lung, stage 4: (9) Hypertension: (10) Hyperlipidemia: (11) COPD (chronic obstructive pulmonary disease): (12) Hypothyroidism: (13) GERD (gastroesophageal reflux disease): (14) Depression: Admission and Anticipated Discharge Date Admission Date: February 20, 2020 Supervising Physician Co-Signing Physician Notes I personally examined the patient and verified all thorpe points of history and exam, discussed case, and agree with decision making with Dr. Brody with the following additions/exceptions: Patient is a 79-year-old female with a history of stage IV adenocarcinoma the lung and recent complicated history of diverticulitis with perforation and multiple intra-abdominal abscesses status post sigmoidectomy and multiple hospitalizations. She presents with nausea vomiting x1 day, abdominal pain and decreased appetite with a low-grade fever. She was found to have a small bowel obstruction and multiple pelvic abscesses on imaging as well as bilateral hydronephrosis. She was not septic on arrival but did have an elevated white blood cell count of 17, with a negative lactate and negative procalcitonin. Today, patient reports her abdominal pain is somewhat improved, no further nausea today but did have 2 episodes of emesis overnight. She is continuing to put looser stool into the ostomy. Remains afebrile. Vitals reviewed Gen: AAOx3, NAD, thin HEENT: Anicteric sclerae CV: RRR no mgr nl S1S2 Pulm: Mild crackles at the bases, otherwise clear Abd: +BS soft diffuse mild tenderness more so in the lower quadrants without guarding or rebound tenderness and is improved from previous, ostomy in place with stool and gas, ND no masses or hernias Ext: No edema, 2+ DP pulses Skin: No rashes, warm/dry Neuro: Full strength throughout Today's labs reviewed 79-year-old female with stage IV lung adenocarcinoma and a recent history of intra-abdominal abscesses status post perforated bowel with colostomy after diverticulitis in 10/2019 here with recurrent abdominal pain, small bowel obstruction, and multiple pelvic abscesses, some are improved from previous but one is a new one. Also with bilateral hydronephrosis Slightly improved today, leukocytosis is resolved, now remains afebrile -Continue to treat with IV antibiotics with Zosyn and vancomycin Surgical consult is appreciated-continue conservative management, place NG tube if has persistent nausea/vomiting -Continue to follow cultures -Continue IV fluids and replace electrolytes as needed, pain control as needed Apparently, the ER spoke with specialist at [facility] in [place] who said that her abscesses are too small for interventional radiology to aspirate-recommended treating with IV antibiotics -Appreciate urology input regarding her bilateral hydronephrosis Subjective Spoke with patient earlier this morning. Overall she says that she feels okay. Says her pain is controlled. Did have two separate episodes of mild emesis overnight. Continues to have good stool ostomy output. No urinary concerns, CP, SOB. Overall, denies any acute concerns. We did discuss that her hemoglobin level dropped overnight. She provided verbal and written consent for transfusion if needed. Review of Systems Review of Systems: Per HPI as above. Physical Exam Physical Exam: GENERAL: Awake, alert, cachectic, resting comfortably, does not appear in acute distress. CARDIAC: +S1S2 RRR, no murmurs. Left upper chest Mediport accessed. RESPIRATORY: Clear to auscultation. No wheezes or rales. Normal respiratory effort. GI: +BS, soft, non-distended. Positive generalized tenderness to palpation with mild guarding (about unchanged from yesterdays exam). Left-sided ostomy in place with stool in the bag. EXTREMITIES: No pedal edema or calf tenderness. Moving all extremities naturally and easily. NEURO: No gross neuro deficits. Normal, relatively upbeat mood. Results & Data ([facility]) Vital Signs (Past 12 Hours) Vital Signs Temp Pulse Resp BP Pulse Ox 02/21/20 07:51 36.7 C 88 18 92/53 L 90 Laboratory Results 02/21/20 02/21/20 02/21/20 Range/Units 14:01 08:52 07:59 WBC (4.8-10.8) K/uL RBC (4.2-5.4) M/uL Hgb 7.0 L (12.0-16.0) g/dL Hct 23.2 L (37-47) % MCV (80-100) fL MCH (25-34) pg MCHC (32-36) g/dL RDW Std Deviation (36.4-46.3) fL RDW Coeff of Raymundo (11.5-14.5) % Plt Count (130-400) K/uL MPV (7.4-10.4) fL Immature Gran % (Auto) % Neut % (Auto) % Lymph % (Auto) % [place] % (Auto) % Eos % (Auto) % Baso % (Auto) % Immature Gran # (Auto) (0.00-0.02) K/uL Neut # (Auto) (1.4-6.5) K/uL Lymph # (Auto) (1.2-3.4) K/uL [place] # (Auto) (0.11-0.59) K/uL Eos # (Auto) (0-0.5) K/uL Baso # (Auto) (0-0.2) K/uL Anisocytosis Sodium (136-145) mmol/L Potassium (3.5-5.1) mmol/L Chloride (98-107) mmol/L Carbon Dioxide (21-32) mmol/L Anion Gap (3-11) BUN (7-18) mg/dl Creatinine (0.6-1.2) mg/dl Est Cr Clr Drug Dosing ml/min Est GFR ( Amer) Est GFR (Non-Af Amer) BUN/Creatinine Ratio (10-20) Glucose (70-99) mg/dl Calcium (8.5-10.1) mg/dl Magnesium (1.8-2.4) mg/dl Iron (35-150) mcg/dl TIBC (250-450) mcg/dl Transferrin (200-360) mg/dl Transferrin % Sat (15-50) % Ferritin (8-388) ng/ml Vitamin B12 1193 H (211-911) pg/ml Folate 15.42 (>5.38) ng/ml Blood Type O Positive Antibody Screen NEGATIVE 02/21/20 02/21/20 Range/Units 07:59 07:59 WBC 10.17 (4.8-10.8) K/uL RBC 2.79 L (4.2-5.4) M/uL Hgb 7.1 L (12.0-16.0) g/dL Hct 23.1 L (37-47) % MCV 82.8 (80-100) fL MCH 25.4 (25-34) pg MCHC 30.7 L (32-36) g/dL RDW Std Deviation 62.8 H (36.4-46.3) fL RDW Coeff of Raymundo 21.0 H (11.5-14.5) % Plt Count 285 (130-400) K/uL MPV 8.5 (7.4-10.4) fL Immature Gran % (Auto) 0.4 % Neut % (Auto) 81.9 % Lymph % (Auto) 5.7 % [place] % (Auto) 10.3 % Eos % (Auto) 1.5 % Baso % (Auto) 0.2 % Immature Gran # (Auto) 0.04 H (0.00-0.02) K/uL Neut # (Auto) 8.33 H (1.4-6.5) K/uL Lymph # (Auto) 0.58 L (1.2-3.4) K/uL [place] # (Auto) 1.05 H (0.11-0.59) K/uL Eos # (Auto) 0.15 (0-0.5) K/uL Baso # (Auto) 0.02 (0-0.2) K/uL Anisocytosis Present Sodium 138 (136-145) mmol/L Potassium 3.5 (3.5-5.1) mmol/L Chloride 105 (98-107) mmol/L Carbon Dioxide 25 (21-32) mmol/L Anion Gap 8.0 (3-11) BUN 12 (7-18) mg/dl Creatinine 0.49 L (0.6-1.2) mg/dl Est Cr Clr Drug Dosing 72.3 ml/min Est GFR ( Amer) 108.9 Est GFR (Non-Af Amer) 94.0 BUN/Creatinine Ratio 24.7 H (10-20) Glucose 90 (70-99) mg/dl Calcium 8.0 L (8.5-10.1) mg/dl Magnesium 1.8 (1.8-2.4) mg/dl Iron 13 L (35-150) mcg/dl TIBC 132 L (250-450) mcg/dl Transferrin 103 L (200-360) mg/dl Transferrin % Sat 9 L (15-50) % Ferritin 453.3 H (8-388) ng/ml Vitamin B12 (211-911) pg/ml Folate (>5.38) ng/ml Blood Type Antibody Screen Medications Administered Current Inpatient Medications Fluconazole (Diflucan) 100 mg PO QAM [facility] Stop: 02/23/20 11:29 Last Admin: 02/21/20 12:07 Dose: 100 mg Documented by: Heparin Sodium (Porcine) (Heparin Sod 100 Unit/Ml Flush) 5 ml FLUSH PRN PRN PRN Reason: Flush Stop: 03/22/20 01:44 Heparin Sodium (Porcine) (Heparin Sodium (Porcine)) 5,000 units SC Q12H [facility] Stop: 03/23/20 08:59 Lactated Ringer's (Lr) 1,000 mls @ 100 mls/hr IV .Q10H [facility] Stop: 03/21/20 19:42 Last Infusion: 02/21/20 06:46 Dose: 100 mls/hr Documented by: Lorazepam (Ativan) 0.25 mg in 0.5 mls @ 0.5 mls/min IV DAILY PRN PRN Reason: Anxiety Stop: 03/21/20 19:42 Pantoprazole Sodium 40 mg/ (Syringe) 10 mls @ 5 mls/min IV DAILY@1100 [facility] Stop: 03/22/20 10:59 Last Admin: 02/21/20 10:58 Dose: 5 mls/min Documented by: Piperacillin Sod/Tazobactam (Sod 3.375 gm/ Dextrose) 115 mls @ 28.75 mls/hr IV Q8H JOSE E; Protocol Stop: 03/01/20 19:59 Last Infusion: 02/21/20 14:28 Dose: Infused Documented by: Vancomycin HCl 750 mg/ Sodium (Chloride) 265 mls @ 125 mls/hr IV Q18H JOSE E; Protocol Stop: 03/02/20 13:59 Last Admin: 02/21/20 13:31 Dose: 125 mls/hr Documented by: Iron Sucrose 300 mg/ Sodium (Chloride) 265 mls @ 176.667 mls/hr IV DAILY JOSE E Stop: 02/23/20 10:29 Ioversol (Optiray 320 100ml) 93 ml IV ONCE PRN PRN Reason: Interaction Checking Stop: 02/24/20 14:28 Last Admin: 02/20/20 14:29 Dose: 93 ml Documented by: Miscellaneous Information (Consult) 1 ea N/A UD PRN PRN Reason: Consult Stop: 03/21/20 15:20 Miscellaneous Information (Consult) 1 ea N/A UD PRN PRN Reason: Consult Stop: 03/21/20 19:42 Morphine Sulfate (Morphine Sulfate) 4 mg IV Q4H PRN PRN Reason: Pain Stop: 03/05/20 19:42 Last Admin: 02/21/20 09:27 Dose: 4 mg Documented by: Ondansetron HCl (Zofran) 4 mg IV Q4H PRN PRN Reason: Nausea Stop: 03/21/20 19:42 Last Admin: 02/21/20 01:14 Dose: 4 mg Documented by: Resident Activity Tracking Resident Involvement: Resident Care Provided Care Provided: Adult Hospital Medicine (1) Adenocarcinoma of lung, stage 4 Laterality: unspecified laterality Qualified Code(s): C34.90 - Malignant neoplasm of unspecified part of unspecified bronchus or lung (2) Anemia Anemia type: other cause Other causes of anemia: other cause, not classified Qualified Code(s): D64.89 - Other specified anemias (3) Hyperlipidemia Hyperlipidemia type: pure hypertriglyceridemia Qualified Code(s): E78.1 - Pure hyperglyceridemia (4) Hypothyroidism Hypothyroidism type: acquired Qualified Code(s): E03.9 - Hypothyroidism, unspecified (5) COPD (chronic obstructive pulmonary disease) COPD type: unspecified COPD Qualified Code(s): J44.9 - Chronic obstructive pulmonary disease, unspecified (6) GERD (gastroesophageal reflux disease) Esophagitis presence: without esophagitis Qualified Code(s): K21.9 - Gastro-esophageal reflux disease without esophagitis
[2020-02-21] MEDS: IRON SUCROSE 300 MG in SODIUM CHLORIDE 0.9% 250 ML IV SCH (16:36)
--- NOTE | 2020-02-21 18:44 | Billing Data ---
Date of Service February 21, 2020 Coding Level of Care Code 76832 Initial Inpt Care Lvl 3
[2020-02-22] MEDS: LACTATED RINGER'S 1,000 ML IV SCH (01:55)
[2020-02-22] MEDS: PIPERACILLIN/TAZOBACTAM 3.375 GM in DEXTROSE 5% 100 ML IV SCH ×3 (03:30→19:42)
[2020-02-22 05:52] LABS: Hematocrit (blood only) 22.5 % (37-47); Hemoglobin 6.8 g/dL (12.0-16.0); Mean Corpuscular Hemoglobin 25.2 pg (25-34); Mean Corpuscular Hgb Conc 30.2 g/dL (32-36); Mean Corpuscular Volume 83.3 fL (80-100); Mean Platelet Volume 8.2 fL (7.4-10.4); Platelet Count 265 K/uL (130-400); RDW Coefficient of Variation 21.1 % (11.5-14.5); RDW Standard Deviation 63.1 fL (36.4-46.3)
[2020-02-22 05:59] LABS: Anisocytosis Present; Basophils # (auto) 0.02 K/uL (0-0.2); Basophils % (auto) 0.2 %; Eosinophils # (auto) 0.31 K/uL (0-0.5); Eosinophils % (auto) 3.4 %; Hypochromasia Present; Immature Granulocytes # (auto) 0.05 K/uL (0.00-0.02); Immature Granulocytes % (auto) 0.5 %; Lymphocytes # (auto) 0.72 K/uL (1.2-3.4); Lymphocytes % (auto) 7.9 %; Monocytes # (auto) 0.91 K/uL (0.11-0.59); Neutrophils # (auto) 7.09 K/uL (1.4-6.5); Ovalocytes 1+; Tear Drop Cells 1+
[2020-02-22 06:12] LABS: Calcium 7.6 mg/dl (8.5-10.1); Creatinine Clr Calc Pharmacy 75.3 ml/min; Est GFR (African American) 110.4; Est GFR (Non-African American) 95.3; Magnesium 1.6 mg/dl (1.8-2.4); Potassium 3.1 mmol/L (3.5-5.1)
[2020-02-22] MEDS ORDERED: SODIUM CHLORIDE 0.9% 250 ML IV PRN (06:13)
[2020-02-22] MEDS: VANCOMYCIN HCL 750 MG in SODIUM CHLORIDE 0.9% 250 ML IV SCH (07:07)
[2020-02-22] MEDS: D5W AND 1/2NSS + 20MEQ KCL 20 MEQ/1,000 ML BAG IV SCH ×2 (07:56→17:24)
[2020-02-22] MEDS: MAGNESIUM SULFATE / D5W 1 GM/100 ML BAG IV SCH ×2 (07:56→09:47)
[2020-02-22] MEDS: POTASSIUM CHLORIDE / WTR 10 MEQ/100 ML PLCT IV SCH ×4 (07:56→10:50)
[2020-02-22] MEDS: FLUCONAZOLE 100 MG TAB PO SCH (08:34)
[2020-02-22] MEDS: HEPARIN SOD 5,000 UNIT/0.5 ML VIAL SC SCH ×2 (08:34→21:44)
[2020-02-22] MEDS ORDERED: ENOXAPARIN INJ 40 MG/0.4 ML SYR SQ SCH (09:00)
[2020-02-22] MEDS: IRON SUCROSE 300 MG in SODIUM CHLORIDE 0.9% 250 ML IV SCH (09:15)
--- NOTE | 2020-02-22 10:07 | Surgery Progress Note ---
Date of Service February 22, 2020 Assessment & Plan (1) Small bowel obstruction: Likely secondary to adhesions, inflammation from intra-abdominal abscesses. Improving with nonoperative management. OK to start clears today. (2) Abdominal pain: secondary to abscesses/ SBO. Improved. 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 Continue IV antibiotics as they are small enough that they may resolve without requiring drainage. (5) Anemia: H/H continues to drift lower. No active sign of bleeding. Transfusion as per medicine team. Subjective Feels better today. No further waves of intense pain since yesterday morning. Ostomy continues to function. No nausea/ vomiting. Feeling hungry. Review of Systems Review of Systems: All systems reviewed & are unremarkable except as noted in HPI & below Physical Exam Constitutional: + thin; no acute distress Eyes: PERRL, conjunctivae normal, anicteric sclerae Respiratory: normal respiratory effort, lungs clear to auscultation Cardiovascular: RRR, no murmur, no edema Gastrointestinal (Abdomen): Inspection/Auscultation: abdomen normal to inspection and normal bowel sounds; abdomen not distended Percussion/Palpation: abdomen soft; abdomen nontender (very mild) and no guarding ostomy with liquid brown stool in bag Neurologic: moves all extremities; no focal motor deficits Psychiatric: Orientation: alert and oriented x 3 Results & Data Vital Signs (Past 12 Hours) Vital Signs Temp Pulse Resp BP Pulse Ox Pulse Ox 02/22/20 07:51 36.6 C 77 18 101/57 L 95 02/21/20 23:30 96 02/21/20 22:46 36.6 C 70 16 90/46 L 96 Laboratory Results 02/22/20 02/22/20 02/21/20 Range/Units 05:24 05:24 14:01 WBC 9.10 (4.8-10.8) K/uL RBC 2.70 L (4.2-5.4) M/uL Hgb 6.8 L* 7.0 L (12.0-16.0) g/dL Hct 22.5 L 23.2 L (37-47) % MCV 83.3 (80-100) fL MCH 25.2 (25-34) pg MCHC 30.2 L (32-36) g/dL RDW Std Deviation 63.1 H (36.4-46.3) fL RDW Coeff of Raymundo 21.1 H (11.5-14.5) % Plt Count 265 (130-400) K/uL MPV 8.2 (7.4-10.4) fL Immature Gran % (Auto) 0.5 % Neut % (Auto) 78.0 % Lymph % (Auto) 7.9 % [place] % (Auto) 10.0 % Eos % (Auto) 3.4 % Baso % (Auto) 0.2 % Immature Gran # (Auto) 0.05 H (0.00-0.02) K/uL Neut # (Auto) 7.09 H (1.4-6.5) K/uL Lymph # (Auto) 0.72 L (1.2-3.4) K/uL [place] # (Auto) 0.91 H (0.11-0.59) K/uL Eos # (Auto) 0.31 (0-0.5) K/uL Baso # (Auto) 0.02 (0-0.2) K/uL Hypochromasia Present Anisocytosis Present Tear Drop Cells 1+ Ovalocytes 1+ Sodium 140 (136-145) mmol/L Potassium 3.1 L (3.5-5.1) mmol/L Chloride 107 (98-107) mmol/L Carbon Dioxide 25 (21-32) mmol/L Anion Gap 8.0 (3-11) BUN 9 (7-18) mg/dl Creatinine 0.47 L (0.6-1.2) mg/dl Est Cr Clr Drug Dosing 75.3 ml/min Est GFR ( Amer) 110.4 Est GFR (Non-Af Amer) 95.3 BUN/Creatinine Ratio 19.0 (10-20) Glucose 70 (70-99) mg/dl Calcium 7.6 L (8.5-10.1) mg/dl Magnesium 1.6 L (1.8-2.4) mg/dl (1) Anemia Anemia type: other cause Other causes of anemia: chronic disease, neoplastic Qualified Code(s): D63.0 - Anemia in neoplastic disease
[2020-02-22] MEDS: PANTOprazole 40 MG in SYRINGE 0 ML IV SCH (10:50)
[2020-02-22 14:31] LABS: Hematocrit (blood only) 23.6 % (37-47); Hemoglobin 7.2 g/dL (12.0-16.0)
[2020-02-22] MEDS: FOLIC ACID 1 MG TAB PO SCH (15:54)
--- NOTE | 2020-02-22 18:16 | Family Medicine Progress Note ---
Date of Service February 22, 2020 Assessment & Plan (1) Abdominal pain: 79-year-old female was admitted on 20 Feb 2020 after c/o abdominal pain. Abdominal pain, small bowel obstruction, abdominal abscesses: Notable history of prior SBO, diverticulitis, pelvic abscesses and s/p sigmoid colostomy in Oct 2019. 08Apr abdomen wound grew resistant pseudomonas. For this admit, CT a/p notes SBO, multifocal abscesses, ascites (though see full report). 22May started vancomycin and Zosyn. Blood cultures NGTD. On morphine and Zofran for symptom control. - See general surgery notes. Planned non-operative management. Recommended NGT if worsens or continued vomiting. Multiple small abscesses not thought to be amenable to CT drainage. Continue antibiotics. Working to advance diet. Urinary pressure: Patient feels relatively acute pressure with urination but no pain. CT a/p noted moderate bilateral hydroureteronephrosis likely secondary to pelvic abscesses. UA was clear. Discussed case with urology who recommended watching Cr and voiding metrics. Bladder scan each shift and straight cath if PVR > 350 mL. Anemia: History of transfusion after Oct 2019 surgery. Admit Hb 8.4, MCV 82. Recent comparisons around Hb 10. On serial rechecks, stable around Hb 7.0. No present evidence of active bleeding. Iron studies suggestive of iron deficiency and/or anemia of chronic inflammation. Presently on iron sucrose 300 mg IV daily x 3 doses. Monitoring closely in case of need for transfusion. Hypokalemia, hypomagnesemia: K as low as 3.1. Mg as low as 1.5. Replaced both prn, monitoring. RLL metastatic lung adenocarcinoma (dx Jun 2019): Mets to bone and previous left hip replacement. Prior chemo and radiation. Previously followed by Dr. Quintero of heme-onc. Pending outpatient appointment with Dr. Judd. Ongoing medical issues: - HTN, HLD: Patient says she is not on medication for this. On home aspirin. - COPD: Life-long current smoker. Denies ever needing any respiratory inhalers. --- Was noted to have a SpO2 drop to 88% after getting morphine. Will monitor and provide supplemental NC oxygen prn goal > 92%. - Hypothyroidism: 08May TSH 3.8. On home synthroid. - GERD: On home pantoprazole. - Depression/anxiety: On home celexa. Says her in December. Will keep as needed lorazepam. - PMH thrush: Says she is prone to thrush after antibiotics, but not at present. Started on prophylactic diflucan daily and will monitor. Code status: DNR/DNI (confirmed with patient on admit). Diet: Advanced to clears. D5 1/2 NS + 20 KCl at 100 mL/hr until tolerating caloric diet. DVT prophy: SCDs. Heparin BID. PT/OT: Deferred on admission. [facility]bo: [facility] Patient lives at home. Presently grandson lives with her. (2) SBO (small bowel obstruction): (3) Pelvic abscess: (4) Hydroureteronephrosis: (5) Anemia: (6) Hypokalemia: (7) Hypomagnesemia: (8) Adenocarcinoma of lung, stage 4: (9) Hypertension: (10) Hyperlipidemia: (11) COPD (chronic obstructive pulmonary disease): (12) Hypothyroidism: (13) GERD (gastroesophageal reflux disease): (14) Depression: Admission and Anticipated Discharge Date Admission Date: February 20, 2020 Supervising Physician Co-Signing Physician Notes I personally examined the patient and verified all thorpe points of history and exam, discussed case, and agree with decision making with Dr. Brody with the following additions/exceptions: Patient is a 79-year-old female with a history of stage IV adenocarcinoma the lung and recent complicated history of diverticulitis with perforation and multiple intra-abdominal abscesses status post sigmoidectomy and multiple hospitalizations. She presents with nausea vomiting x1 day, abdominal pain and decreased appetite with a low-grade fever. She was found to have a small bowel obstruction and multiple pelvic abscesses on imaging as well as bilateral hydronephrosis. She was not septic on arrival but did have an elevated white blood cell count of 17, with a negative lactate and negative procalcitonin. Today, patient reports she feels much improved. She has only some minimal left lower quadrant abdominal pain and some irritation at the ostomy site, but no further nausea or vomiting. She is tolerated clear liquid diet today and is passing plenty of liquid stool into the ostomy bag. Denies any other concerns. Vitals reviewed Gen: AAOx3, NAD, thin HEENT: Anicteric sclerae CV: RRR no mgr nl S1S2 Pulm: Clear to auscultation bilaterally Abd: +BS soft, no tenderness to palpation, ostomy in place with stool and gas, ND no masses or hernias Ext: No edema Skin: No rashes, warm/dry Neuro: Full strength throughout Today's labs reviewed 79-year-old female with stage IV lung adenocarcinoma and a recent history of intra-abdominal abscesses status post perforated bowel with end colostomy after diverticulitis in 10/2019 here with recurrent abdominal pain, small bowel obstruction, and multiple pelvic abscesses, some are improved from previous but also with a new one. Also with bilateral hydronephrosis Much improved today, leukocytosis is resolved, continues to remain afebrile -Continue to treat with IV antibiotics with Zosyn and vancomycin for now-need to consider long-term IV antibiotics-we will discuss with general surgery about whether she should have long-term IV antibiotics and a once daily ertapenem would likely be feasible, versus oral antibiotics on discharge It is difficult as we do not have any cultures to follow Surgical consult is appreciated for the small bowel obstruction-continue conservative management, improving and no need for NG tube at this time -Continue to follow cultures in the blood-no growth to date -Continue IV fluids but can likely discontinue these in the morning if she is taking adequate p.o. -Continue to replace electrolytes as needed Apparently, the ER spoke with specialist at [facility] in [place] who said that her abscesses are too small for interventional radiology to aspirate-recommended treating with IV antibiotics -Appreciate urology input regarding her bilateral hydronephrosis-no treatment as long as creatinine remains stable and her post void residuals are minimal Continued stay, but is significantly improved and may be able to be discharged to home if IV antibiotics can be arranged hopeful for Sunday-she has a port in place which could be used for this purpose Subjective Spoke with patient earlier this morning. She continues to say that she feels okay, that her pain is controlled, and most recently she has not been nauseous or had any emesis. She continues to have good liquid stool ostomy output. Still no chest pain, shortness of breath, dizziness, urinary concerns, or other expressed focal concerns. Review of Systems Review of Systems: Per HPI as above. Physical Exam Physical Exam: GENERAL: Awake, alert, cachectic, resting comfortably, does not appear in acute distress. CARDIAC: +S1S2 RRR, no murmurs. Left upper chest Mediport accessed. RESPIRATORY: Clear to auscultation. No wheezes or rales. Normal respiratory effort. GI: +BS, soft, non-distended. Positive generalized tenderness to palpation with mild guarding (improved from yesterdays exam). Left-sided ostomy in place with liquid stool in the bag. EXTREMITIES: No pedal edema or calf tenderness. Moving all extremities naturally and easily. NEURO: No gross neuro deficits. Normal, relatively upbeat mood. Results & Data ([facility]) Vital Signs (Past 12 Hours) Vital Signs Temp Pulse Resp BP Pulse Ox 02/22/20 15:22 36.6 C 63 16 102/57 L 92 02/22/20 07:51 36.6 C 77 18 101/57 L 95 Laboratory Results 02/22/20 02/22/20 02/22/20 Range/Units 14:23 05:24 05:24 WBC 9.10 (4.8-10.8) K/uL RBC 2.70 L (4.2-5.4) M/uL Hgb 7.2 L 6.8 L* (12.0-16.0) g/dL Hct 23.6 L 22.5 L (37-47) % MCV 83.3 (80-100) fL MCH 25.2 (25-34) pg MCHC 30.2 L (32-36) g/dL RDW Std Deviation 63.1 H (36.4-46.3) fL RDW Coeff of Raymundo 21.1 H (11.5-14.5) % Plt Count 265 (130-400) K/uL MPV 8.2 (7.4-10.4) fL Immature Gran % (Auto) 0.5 % Neut % (Auto) 78.0 % Lymph % (Auto) 7.9 % [place] % (Auto) 10.0 % Eos % (Auto) 3.4 % Baso % (Auto) 0.2 % Immature Gran # (Auto) 0.05 H (0.00-0.02) K/uL Neut # (Auto) 7.09 H (1.4-6.5) K/uL Lymph # (Auto) 0.72 L (1.2-3.4) K/uL [place] # (Auto) 0.91 H (0.11-0.59) K/uL Eos # (Auto) 0.31 (0-0.5) K/uL Baso # (Auto) 0.02 (0-0.2) K/uL Hypochromasia Present Anisocytosis Present Tear Drop Cells 1+ Ovalocytes 1+ Sodium 140 (136-145) mmol/L Potassium 3.1 L (3.5-5.1) mmol/L Chloride 107 (98-107) mmol/L Carbon Dioxide 25 (21-32) mmol/L Anion Gap 8.0 (3-11) BUN 9 (7-18) mg/dl Creatinine 0.47 L (0.6-1.2) mg/dl Est Cr Clr Drug Dosing 75.3 ml/min Est GFR ( Amer) 110.4 Est GFR (Non-Af Amer) 95.3 BUN/Creatinine Ratio 19.0 (10-20) Glucose 70 (70-99) mg/dl Calcium 7.6 L (8.5-10.1) mg/dl Magnesium 1.6 L (1.8-2.4) mg/dl Medications Administered Current Inpatient Medications Aspirin (Ecotrin Ectab) 81 mg PO QAM [facility] Stop: 03/24/20 08:59 Citalopram Hydrobromide (Celexa) 40 mg PO QAM [facility] Stop: 03/24/20 08:59 Fluconazole (Diflucan) 100 mg PO QAM [facility] Stop: 02/23/20 11:29 Last Admin: 02/22/20 08:34 Dose: 100 mg Documented by: Folic Acid (Folvite) 1 mg PO DAILY [facility] Stop: 03/23/20 14:59 Last Admin: 02/22/20 15:54 Dose: 1 mg Documented by: Heparin Sodium (Porcine) (Heparin Sod 100 Unit/Ml Flush) 5 ml FLUSH PRN PRN PRN Reason: Flush Stop: 03/22/20 01:44 Heparin Sodium (Porcine) (Heparin Sodium (Porcine)) 5,000 units SC Q12H [facility] Stop: 03/23/20 08:59 Last Admin: 02/22/20 08:34 Dose: 5,000 units Documented by: Piperacillin Sod/Tazobactam (Sod 3.375 gm/ Dextrose) 115 mls @ 28.75 mls/hr IV Q8H [facility]; Protocol Stop: 03/01/20 19:59 Last Infusion: 02/22/20 15:49 Dose: Infused Documented by: Iron Sucrose 300 mg/ Sodium (Chloride) 265 mls @ 176.667 mls/hr IV DAILY [facility] Stop: 02/23/20 10:29 Last Infusion: 02/22/20 10:43 Dose: Infused Documented by: Potassium Chloride/Dextrose/Sod Cl (D5w And 1/2nss + 20meq Kcl) 20 meq in 1,000 mls @ 100 mls/hr IV .Q10H [facility] Stop: 03/23/20 07:59 Last Admin: 02/22/20 17:24 Dose: 100 mls/hr Documented by: Vancomycin HCl 750 mg/ Sodium (Chloride) 265 mls @ 125 mls/hr IV Q16H [facility]; Protocol Stop: 03/04/20 00:00 Ioversol (Optiray 320 100ml) 93 ml IV ONCE PRN PRN Reason: Interaction Checking Stop: 02/24/20 14:28 Last Admin: 02/20/20 14:29 Dose: 93 ml Documented by: Levothyroxine Sodium (Synthroid) 100 mcg PO DAILYBB [facility] Stop: 03/24/20 06:29 Lorazepam (Ativan) 0.5 mg PO DAILY PRN PRN Reason: anxiety Stop: 03/23/20 14:22 Miscellaneous Information (Consult) 1 ea N/A UD PRN PRN Reason: Consult Stop: 03/21/20 15:20 Miscellaneous Information (Consult) 1 ea N/A UD PRN PRN Reason: Consult Stop: 03/21/20 19:42 Morphine Sulfate (Morphine Sulfate) 4 mg IV Q4H PRN PRN Reason: Pain Stop: 03/05/20 19:42 Last Admin: 02/21/20 23:42 Dose: 4 mg Documented by: Ondansetron HCl (Zofran) 4 mg IV Q4H PRN PRN Reason: Nausea Stop: 03/21/20 19:42 Last Admin: 02/21/20 21:09 Dose: 4 mg Documented by: Pantoprazole Sodium (Protonix) 40 mg PO QAM [facility] Stop: 03/24/20 08:59 Resident Activity Tracking Resident Involvement: Resident Care Provided Care Provided: Adult Hospital Medicine (1) Adenocarcinoma of lung, stage 4 Laterality: unspecified laterality Qualified Code(s): C34.90 - Malignant neoplasm of unspecified part of unspecified bronchus or lung (2) Anemia Anemia type: other cause Other causes of anemia: other cause, not classified Qualified Code(s): D64.89 - Other specified anemias (3) Hyperlipidemia Hyperlipidemia type: pure hypertriglyceridemia Qualified Code(s): E78.1 - Pure hyperglyceridemia (4) Hypothyroidism Hypothyroidism type: acquired Qualified Code(s): E03.9 - Hypothyroidism, unspecified (5) COPD (chronic obstructive pulmonary disease) COPD type: unspecified COPD Qualified Code(s): J44.9 - Chronic obstructive pulmonary disease, unspecified (6) GERD (gastroesophageal reflux disease) Esophagitis presence: without esophagitis Qualified Code(s): K21.9 - Gastro- esophageal reflux disease without esophagitis
--- NOTE | 2020-02-22 18:51 | Billing Data ---
Date of Service February 22, 2020 Coding Level of Care Code 31382 Initial Inpt Care Lvl 3
[2020-02-22] MEDS: LORazepam 0.5 MG TAB PO PRN (21:44)
[2020-02-22] MEDS: ONDANSETRON INJ 2 MG/ML 2 ML VIAL IV PRN (21:44)
[2020-02-22] MEDS: MoRPHine SULFATE 4 MG/ML 1 ML CARP\\VIAL IV PRN (23:47)
[2020-02-23] MEDS ORDERED: VANCOMYCIN HCL 750 MG in SODIUM CHLORIDE 0.9% 250 ML IV SCH
[2020-02-23] MEDS: PIPERACILLIN/TAZOBACTAM 3.375 GM in DEXTROSE 5% 100 ML IV SCH ×3 (05:21→21:08)
[2020-02-23] MEDS: LEVOTHYROXINE SODIUM 100 MCG TABLET PO SCH (05:21)
[2020-02-23] MEDS: D5W AND 1/2NSS + 20MEQ KCL 20 MEQ/1,000 ML BAG IV SCH ×3 (05:21→23:51)
[2020-02-23 06:21] LABS: Hematocrit (blood only) 21.7 % (37-47); Hemoglobin 6.7 g/dL (12.0-16.0); Mean Corpuscular Hemoglobin 25.7 pg (25-34); Mean Corpuscular Hgb Conc 30.9 g/dL (32-36); Mean Corpuscular Volume 83.1 fL (80-100); Mean Platelet Volume 8.8 fL (7.4-10.4); Platelet Count 284 K/uL (130-400); RDW Coefficient of Variation 21.2 % (11.5-14.5); RDW Standard Deviation 62.9 fL (36.4-46.3); Red Blood Count 2.61 M/uL (4.2-5.4); White Blood Count 8.67 K/uL (4.8-10.8)
[2020-02-23 06:25] LABS: BUN Creatinine Ratio 9.4 (10-20); Calcium 7.6 mg/dl (8.5-10.1); Creatinine Clr Calc Pharmacy 65.6 ml/min; Est GFR (African American) 105.5; Magnesium 1.6 mg/dl (1.8-2.4); Potassium 3.4 mmol/L (3.5-5.1)
[2020-02-23] MEDS ORDERED: SODIUM CHLORIDE 0.9% 250 ML IV PRN (06:41)
--- NOTE | 2020-02-23 07:08 | Hospitalist Progress Note ---
Date of Service February 23, 2020 Assessment & Plan (1) Abdominal pain: 79-year-old female was admitted on 20 Feb 2020 after c/o abdominal pain. Abdominal pain, small bowel obstruction, abdominal abscesses: Notable history of prior SBO, diverticulitis, pelvic abscesses and s/p sigmoid colostomy in Oct 2019. 08Apr abdomen wound grew resistant pseudomonas. For this admit, CT a/p notes SBO, multifocal abscesses, ascites (though see full report). 22May started vancomycin and Zosyn. Blood cultures NGTD. On morphine and Zofran for symptom control. - See general surgery notes. Planned non-operative management. Recommended NGT if worsens or continued vomiting. Multiple small abscesses not thought to be amenable to CT drainage. Continue antibiotics. Working to advance diet. Urinary pressure: Patient feels relatively acute pressure with urination but no pain. CT a/p noted moderate bilateral hydroureteronephrosis likely secondary to pelvic abscesses. UA was clear. Discussed case with urology who recommended watching Cr and voiding metrics. Bladder scan each shift and straight cath if PVR > 350 mL. Anemia: History of transfusion after Oct 2019 surgery. Admit Hb 8.4, MCV 82. Recent comparisons around Hb 10. On serial rechecks, stable around Hb 7.0. No present evidence of active bleeding. Iron studies suggestive of iron deficiency and/or anemia of chronic inflammation. Presently on iron sucrose 300 mg IV daily x 3 doses. Monitoring closely in case of need for transfusion. Hypokalemia, hypomagnesemia: K as low as 3.1. Mg as low as 1.5. Replaced both prn, monitoring. RLL metastatic lung adenocarcinoma (dx Jun 2019): Mets to bone and previous left hip replacement. Prior chemo and radiation. Previously followed by Dr. Quintero of heme-onc. Pending outpatient appointment with Dr. Judd. Ongoing medical issues: - HTN, HLD: Patient says she is not on medication for this. On home aspirin. - COPD: Life-long current smoker. Denies ever needing any respiratory inhalers. --- Was noted to have a SpO2 drop to 88% after getting morphine. Will monitor and provide supplemental NC oxygen prn goal > 92%. - Hypothyroidism: 08May TSH 3.8. On home synthroid. - GERD: On home pantoprazole. - Depression/anxiety: On home celexa. Says her in December. Will keep as needed lorazepam. - PMH thrush: Says she is prone to thrush after antibiotics, but not at present. Started on prophylactic diflucan daily and will monitor. Code status: DNR/DNI (confirmed with patient on admit). Diet: Advanced to clears. D5 1/2 NS + 20 KCl at 100 mL/hr until tolerating caloric diet. DVT prophy: SCDs. Heparin BID. PT/OT: Deferred on admission. Disbo: Admit to [facility]. Patient lives at home. Presently grandson lives with her. (2) SBO (small bowel obstruction): (3) Pelvic abscess: (4) Hydroureteronephrosis: (5) Anemia: (6) Hypokalemia: (7) Hypomagnesemia: (8) Adenocarcinoma of lung, stage 4: (9) Hypertension: (10) Hyperlipidemia: (11) COPD (chronic obstructive pulmonary disease): (12) Hypothyroidism: (13) GERD (gastroesophageal reflux disease): (14) Depression: Admission and Anticipated Discharge Date Admission Date: February 20, 2020 Results & Data Results & Data ([facility]) Vital Signs (Past 12 Hours) Vital Signs Temp Pulse Resp BP Pulse Ox 02/22/20 23:33 36.7 C 69 14 94/56 L 95 (1) Anemia Anemia type: other cause Other causes of anemia: other cause, not classified Qualified Code(s): D64.89 - Other specified anemias (2) Adenocarcinoma of lung, stage 4 Laterality: unspecified laterality Qualified Code(s): C34.90 - Malignant neoplasm of unspecified part of unspecified bronchus or lung (3) Hyperlipidemia Hyperlipidemia type: pure hypertriglyceridemia Qualified Code(s): E78.1 - Pure hyperglyceridemia (4) COPD (chronic obstructive pulmonary disease) COPD type: unspecified COPD Qualified Code(s): J44.9 - Chronic obstructive pulmonary disease, unspecified (5) Hypothyroidism Hypothyroidism type: acquired Qualified Code(s): E03.9 - Hypothyroidism, unspecified (6) GERD (gastroesophageal reflux disease) Esophagitis presence: without esophagitis Qualified Code(s): K21.9 - Gastro- esophageal reflux disease without esophagitis
[2020-02-23] MEDS: MAGNESIUM SULFATE / D5W 1 GM/100 ML BAG IV SCH ×4 (08:13→14:47)
[2020-02-23] MEDS: FOLIC ACID 1 MG TAB PO SCH (10:00)
[2020-02-23] MEDS: FLUCONAZOLE 100 MG TAB PO SCH (10:01)
[2020-02-23] MEDS: IRON SUCROSE 300 MG in SODIUM CHLORIDE 0.9% 250 ML IV SCH (10:01)
[2020-02-23] MEDS: CITALOPRAM 40 MG TAB PO SCH (10:01)
[2020-02-23] MEDS: ASPIRIN 81 MG ECTAB PO SCH (10:01)
[2020-02-23] MEDS: PANTOprazole 40 MG TAB PO SCH (10:01)
[2020-02-23] MEDS: HEPARIN SOD 5,000 UNIT/0.5 ML VIAL SC SCH ×2 (10:02→21:19)
--- NOTE | 2020-02-23 13:05 | Hospitalist Progress Note ---
Date of Service February 23, 2020 Assessment & Plan (1) Abdominal pain: 79-year-old female was admitted on 20 Feb 2020 after c/o abdominal pain likely secondary to SBO and related abdominal abscesses. Abdominal pain, small bowel obstruction, abdominal abscesses: -Notable history of prior SBO, diverticulitis, pelvic abscesses and s/p sigmoid colostomy in Oct 2019. -08Apr abdomen wound grew resistant pseudomonas. -For this admit, CT a/p notes SBO, multifocal abscesses, ascites. -22May started vancomycin and Zosyn. Vancomycin discontinued 02/23/2020. -Blood cultures NGTD. -On morphine and Zofran for symptom control. -Appreciate Gen Surgery consult: -Planned non-operative management. -Recommended NGT if worsens or continued vomiting. -Multiple small abscesses not thought to be amenable to CT drainage. -Continue antibiotics. -Advance diet as tolerated Urinary pressure: -Patient feels relatively acute pressure with urination but no pain. -UA unremarkable -CT a/p noted moderate bilateral hydroureteronephrosis likely secondary to pelvic abscesses. -Discussed case with urology who recommended watching Cr and voiding metrics. Bladder scan each shift and straight cath if PVR > 350 mL. -Currently improving Anemia: -Admit Hb 8.4, MCV 82. -History of transfusion after Oct 2019 surgery. Recent comparisons around Hb 10. -Received 1U irradiated leukoreduced pRBCs transfusion on 02/23/2020 for Hgb of 6.7 -No present evidence of active bleeding. -Iron studies suggestive of iron deficiency and/or anemia of chronic inflammation. -Presently on iron sucrose 300 mg IV daily x 3 doses. Hypokalemia, hypomagnesemia: -replete as needed RLL metastatic lung adenocarcinoma (dx Jun 2019): -Mets to bone and previous left hip replacement. -Prior chemo and radiation. -Previously followed by Dr. Quintero of heme-onc. -Pending outpatient appointment with Dr. Judd. HTN, HLD: -Patient says she is not on medication for this. -On home aspirin. COPD: -Life-long current smoker. -Denies ever needing any respiratory inhalers. -Was noted to have a SpO2 drop to 88% after getting morphine. -Will monitor and provide supplemental NC oxygen prn goal > 92%. Hypothyroidism: -08May TSH 3.8. -On home synthroid. GERD: -On home pantoprazole. Depression/anxiety: -On home celexa. -Says her in December. -Will keep as needed lorazepam. PMH thrush: -Says she is prone to thrush after antibiotics, but not at present. -Started on prophylactic diflucan daily and will monitor. Code status: DNR/DNI (confirmed with patient on admit). Diet: Advanced to clears. D5 1/2 NS + 20 KCl at 100 mL/hr until tolerating caloric diet. DVT prophy: SCDs. Heparin BID. PT/OT: Deferred on admission. Dispo: Admit to [facility]. Patient lives at home. Presently grandson lives with her. (2) SBO (small bowel obstruction): (3) Pelvic abscess: (4) Hydroureteronephrosis: (5) Anemia: (6) Hypokalemia: (7) Hypomagnesemia: (8) Adenocarcinoma of lung, stage 4: (9) Hypertension: (10) Hyperlipidemia: (11) COPD (chronic obstructive pulmonary disease): (12) Hypothyroidism: (13) GERD (gastroesophageal reflux disease): (14) Depression: Admission and Anticipated Discharge Date Admission Date: February 20, 2020 Supervising Physician Co-Signing Physician Notes Patient seen and examined with Dr. Paul. I agree with her exam findings, re view of systems, assessment and plan. I have personally reviewed the lab work and imaging from today. patient feeling better overall since admission, had some nausea this evening discussed the CT findings from 01/29 when she had incidental finding of abscesses, did not take antibiotics at that time she did admit that she had some IV antibiotics via her port in the past, had them at home certainly no role for surgical drainage she is having ostomy output, oral intake improving slowly, less pain Exam: thin female, NAD lungs CTA bilaterally, normal effort heart regular S1/S2, no murmurs abdomen soft, mild TTP, ostomy intact with stool, non-distended no neurological deficits - Abdominal pain due to abscesses no role for drainage, continue IV Zosyn, stop Vanco today as unlikely a gram positive infection reviewed of the record shows that she had a CT on 01/29 that showed fluid collections, could this all be residual from surgery in October? would suspect she would have presented clinically earlier than this feels better on IV Zosyn, ask CM to look into home IV antibiotics, she has a port discuss with general surgery time frame of antibiotics treat nausea with Patricia Subjective Pt seen this AM. States that she had an episode of nausea overnight that quickly resolved. Has been having loose BMs. Suprapubic pressure when she voids is less. Has been able to eat. ROS as below. Review of Systems Constitutional: + fatigue; no fever and no chills Eyes: + problem reported (states she had some discharge overnight) Ear, Nose, Mouth, Throat: no nasal congestion and no sore throat Respiratory: no cough and no dyspnea Cardiovascular: no chest pain, no palpitations, no lightheadedness and no edema Gastrointestinal: + abdominal pain, + nausea (brief episode overnight) and + diarrhea/loose stools; no vomiting and no constipation Genitourinary: + pelvic pain Neurologic: no tingling, no numbness and no headache(s) Psychiatric: no confusion Physical Exam Physical Exam: General: Alert, oriented. No acute distress laying in bed, somber Skin: No noted rashes or bruises Psych: Appropriate mood and affect Neuro: No gross deficits HEENT: NC/AT Chest: Nontender to palpation. CV: RRR, Normal s1, s2. No murmurs appreciated Resp: Breath sounds clear bilaterally, no increased effort of breathing Abdomen: BS+. Soft, tender shannon in RUQ, No guarding. Ostomy bag noted with liquid stools. Extremities: SCDs on lower extremities bilaterally. Results & Data Results & Data ([facility]) Vital Signs (Past 12 Hours) Vital Signs Temp Pulse Pulse Resp BP BP Pulse Ox 02/23/20 12:08 36.6 C 65 16 105/62 94 02/23/20 11:54 36.6 C 65 16 105/62 94 02/23/20 10:55 36.7 C 64 18 104/59 L 96 02/23/20 09:55 37.0 C 71 18 101/59 L 96 02/23/20 09:25 37.0 C 69 16 95/56 L 94 02/23/20 09:10 37.0 C 69 16 92/54 L 93 02/23/20 08:52 36.9 C 68 18 94/57 L 92 02/23/20 07:15 36.7 C 75 16 99/60 L 94 Resident Activity Tracking Resident Involvement: Resident Care Provided Care Provided: Adult Hospital Medicine (1) Adenocarcinoma of lung, stage 4 Laterality: unspecified laterality Qualified Code(s): C34.90 - Malignant neoplasm of unspecified part of unspecified bronchus or lung (2) Anemia Anemia type: other cause Other causes of anemia: other cause, not classified Qualified Code(s): D64.89 - Other specified anemias (3) Hyperlipidemia Hyperlipidemia type: pure hypertriglyceridemia Qualified Code(s): E78.1 - Pure hyperglyceridemia (4) Hypothyroidism Hypothyroidism type: acquired Qualified Code(s): E03.9 - Hypothyroidism, unspecified (5) COPD (chronic obstructive pulmonary disease) COPD type: unspecified COPD Qualified Code(s): J44.9 - Chronic obstructive pulmonary disease, unspecified (6) GERD (gastroesophageal reflux disease) Esophagitis presence: without esophagitis Qualified Code(s): K21.9 - Gastro- esophageal reflux disease without esophagitis
--- NOTE | 2020-02-23 13:14 | Surgery Progress Note ---
Date of Service doing better, no abdominal pain, no nausea, no vomiting, passed BM, stool in bag, February 23, 2020 Assessment & Plan (1) Small bowel obstruction: Likely secondary to adhesions, inflammation from intra-abdominal abscesses. Improving with nonoperative management. OK to start clears today. 02/23/2020 1:13PM doing better, soft diet will F/U (2) Abdominal pain: secondary to abscesses/ SBO. Improved. 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 Continue IV antibiotics as they are small enough that they may resolve without requiring drainage. (5) Anemia: H/H continues to drift lower. No active sign of bleeding. Transfusion as per medicine team. Subjective Pt seen this AM. States that she had an episode of nausea overnight that quickly resolved. Has been having loose BMs. Suprapubic pressure when she voids is less. Has been able to eat. ROS as below. Physical Exam Constitutional: WD/WN, vitals as above well developed and well nourished Eyes: PERRL, conjunctivae normal, anicteric sclerae ENMT: external ear and nose normal, oropharynx normal Respiratory: normal respiratory effort, lungs clear to auscultation Cardiovascular: RRR, no murmur, no edema Gastrointestinal (Abdomen): normal bowel sounds, soft, nontender, no hepatosplenomegaly Percussion/Palpation: abdomen soft NT, ND, colostomy working, stool in bag, BS + Skin: no rashes, warm and dry Neurologic: awake Psychiatric: Orientation: alert and oriented x 3 Results & Data Vital Signs (Past 12 Hours) Vital Signs Temp Pulse Pulse Resp BP BP Pulse Ox 02/23/20 12:08 36.6 C 65 16 105/62 94 02/23/20 11:54 36.6 C 65 16 105/62 94 02/23/20 10:55 36.7 C 64 18 104/59 L 96 02/23/20 09:55 37.0 C 71 18 101/59 L 96 02/23/20 09:25 37.0 C 69 16 95/56 L 94 02/23/20 09:10 37.0 C 69 16 92/54 L 93 02/23/20 08:52 36.9 C 68 18 94/57 L 92 02/23/20 07:15 36.7 C 75 16 99/60 L 94 Laboratory Results Abnormal lab results 02/21/20 02/22/20 02/23/20 Range/Units 08:52 14:23 05:07 RBC 2.61 L (4.2-5.4) M/uL Hgb 7.2 L 6.7 L* (12.0-16.0) g/dL Hct 23.6 L 21.7 L (37-47) % MCHC 30.9 L (32-36) g/dL RDW Std Deviation 62.9 H (36.4-46.3) fL RDW Coeff of Raymundo 21.2 H (11.5-14.5) % Potassium (3.5-5.1) mmol/L BUN (7-18) mg/dl Creatinine (0.6-1.2) mg/dl BUN/Creatinine Ratio (10-20) Glucose (70-99) mg/dl Calcium (8.5-10.1) mg/dl Magnesium (1.8-2.4) mg/dl Crossmatch See Detail 02/23/20 Range/Units 05:07 RBC (4.2-5.4) M/uL Hgb (12.0-16.0) g/dL Hct (37-47) % MCHC (32-36) g/dL RDW Std Deviation (36.4-46.3) fL RDW Coeff of Raymundo (11.5-14.5) % Potassium 3.4 L (3.5-5.1) mmol/L BUN 5 L (7-18) mg/dl Creatinine 0.54 L (0.6-1.2) mg/dl BUN/Creatinine Ratio 9.4 L (10-20) Glucose 104 H (70-99) mg/dl Calcium 7.6 L (8.5-10.1) mg/dl Magnesium 1.6 L (1.8-2.4) mg/dl Crossmatch (1) Anemia Anemia type: other cause Other causes of anemia: chronic disease, neoplastic Qualified Code(s): D63.0 - Anemia in neoplastic disease
[2020-02-23] MEDS: MoRPHine SULFATE 4 MG/ML 1 ML CARP\\VIAL IV PRN ×2 (13:56→21:08)
[2020-02-23] MEDS: ONDANSETRON INJ 2 MG/ML 2 ML VIAL IV PRN (14:01)
[2020-02-23 14:15] LABS: Hematocrit (blood only) 28.7 % (37-47); Hemoglobin 9.3 g/dL (12.0-16.0)
[2020-02-23] MEDS ORDERED: VANCOMYCIN TROUGH ONE (15:30)
[2020-02-23] MEDS ORDERED: PIPERACILL/TAZOBAC CONSULT ACTIVE PRN (16:59)
[2020-02-23] MEDS ORDERED: ONDANSETRON INJ 2 MG/ML 2 ML VIAL IV ONE (18:24)
--- NOTE | 2020-02-23 22:06 | Billing Data ---
Date of Service February 23, 2020 Coding Level of Care Code 77487 Initial Inpt Care Lvl 2
[2020-02-24] MEDS: MoRPHine SULFATE 4 MG/ML 1 ML CARP\\VIAL IV PRN ×3 (01:13→19:47)
[2020-02-24] MEDS: PIPERACILLIN/TAZOBACTAM 3.375 GM in DEXTROSE 5% 100 ML IV SCH ×3 (04:13→19:45)
[2020-02-24] MEDS: LEVOTHYROXINE SODIUM 100 MCG TABLET PO SCH (05:33)
[2020-02-24 06:07] LABS: Basophils # (auto) 0.01 K/uL (0-0.2); Basophils % (auto) 0.1 %; Eosinophils # (auto) 0.26 K/uL (0-0.5); Eosinophils % (auto) 2.7 %; Hematocrit (blood only) 26.5 % (37-47); Hemoglobin 8.3 g/dL (12.0-16.0); Immature Granulocytes # (auto) 0.03 K/uL (0.00-0.02); Immature Granulocytes % (auto) 0.3 %; Lymphocytes # (auto) 0.52 K/uL (1.2-3.4); Lymphocytes % (auto) 5.4 %; Mean Corpuscular Hemoglobin 25.9 pg (25-34); Mean Corpuscular Hgb Conc 31.3 g/dL (32-36); Mean Corpuscular Volume 82.8 fL (80-100); Mean Platelet Volume 8.8 fL (7.4-10.4); Monocytes # (auto) 1.07 K/uL (0.11-0.59); Monocytes % (auto) 11.2 %; Neutrophils # (auto) 7.69 K/uL (1.4-6.5); Neutrophils % (auto) 80.3 %; Platelet Count 313 K/uL (130-400); RDW Standard Deviation 59.3 fL (36.4-46.3); White Blood Count 9.58 K/uL (4.8-10.8)
[2020-02-24 06:35] LABS: Echinocytes 1+; Tear Drop Cells 1+
[2020-02-24 06:41] LABS: BUN Creatinine Ratio 5.4 (10-20); Calcium 7.9 mg/dl (8.5-10.1); Creatinine Clr Calc Pharmacy 68.1 ml/min; Est GFR (African American) 106.8; Est GFR (Non-African American) 92.2; Potassium 3.3 mmol/L (3.5-5.1)
[2020-02-24] MEDS: ONDANSETRON INJ 2 MG/ML 2 ML VIAL IV PRN (07:32)
--- NOTE | 2020-02-24 08:02 | XRay Report ---
XR KUB/Abdomen 1 view CLINICAL HISTORY: Upper abdominal pain/mets pain COMPARISON STUDY: 09/29/2019 FINDINGS: Mild nonobstructive small bowel ileus. Left lower quadrant ostomy site. No secondary signs of free air. Mild bibasilar atelectatic change. Prior left hip arthroplasty. IMPRESSION: Bibasilar atelectatic change. 2. Mild nonobstructive ileus. 3. Postoperative changes as described. ACT 112: Negative or not required by law. The above report was generated using voice recognition software. It may contain grammatical, syntax or spelling errors. Electronically signed by: Dawson Dowell M.D. 02/24/2020 8:00 AM
[2020-02-24 08:40] LABS: Phosphorus 2.4 mg/dl (2.5-4.9)
[2020-02-24] MEDS: CITALOPRAM 40 MG TAB PO SCH (08:51)
[2020-02-24] MEDS: POTASSIUM CHLORIDE 40 MEQ in D5W AND 1/2NSS 1,000 ML/1,000 ML BAG IV SCH ×2 (08:51→17:51)
[2020-02-24] MEDS: FOLIC ACID 1 MG TAB PO SCH (08:51)
[2020-02-24] MEDS: ASPIRIN 81 MG ECTAB PO SCH (08:51)
[2020-02-24] MEDS: HEPARIN SOD 5,000 UNIT/0.5 ML VIAL SC SCH ×2 (08:52→21:33)
[2020-02-24] MEDS: PANTOprazole 40 MG TAB PO SCH (08:52)
[2020-02-24] MEDS: PROCHLORPERAZINE 5 MG in SYRINGE 4 ML IV PRN ×2 (10:36→17:48)
--- NOTE | 2020-02-24 12:46 | Hospitalist Progress Note ---
Date of Service February 24, 2020 Assessment & Plan (1) Abdominal pain: 79-year-old female was admitted on 20 Feb 2020 after c/o abdominal pain likely secondary to SBO and related abdominal abscesses. Abdominal pain, small bowel obstruction, abdominal abscesses: -Notable history of prior SBO, diverticulitis, pelvic abscesses and s/p sigmoid colostomy in Oct 2019. -08Apr abdomen wound grew resistant pseudomonas. -For this admit, CT a/p notes SBO, multifocal abscesses, ascites. -22May started vancomycin and Zosyn. Vancomycin discontinued 02/23/2020. -02/23 KUB overnight noted ileus -Blood cultures NGTD. -On morphine for pain control -Switched to compazine for nausea control. -Currently NPO -Appreciate Gen Surgery consult: -Planned non-operative management. -Recommended NGT if worsens or continued vomiting. -Multiple small abscesses not thought to be amenable to CT drainage. -Continue antibiotics. -Advance diet as tolerated -Appreciate nutrition and wound care consult Urinary pressure: -Patient feels relatively acute pressure with urination but no pain. -UA unremarkable -CT a/p noted moderate bilateral hydroureteronephrosis likely secondary to pelvic abscesses. -Discussed case with urology who recommended watching Cr and voiding metrics. Bladder scan each shift and straight cath if PVR > 350 mL. -Currently improving Anemia: -Admit Hb 8.4, MCV 82. -History of transfusion after Oct 2019 surgery. Recent comparisons around Hb 10. -Received 1U irradiated leukoreduced pRBCs transfusion on 02/23/2020 for Hgb of 6.7 -No present evidence of active bleeding. -Iron studies suggestive of iron deficiency and/or anemia of chronic inflammation. -Presently on iron sucrose 300 mg IV daily x 3 doses. Hypokalemia, hypomagnesemia, hypophosphatemia: -replete as needed RLL metastatic lung adenocarcinoma (dx Jun 2019): -Mets to bone and previous left hip replacement. -Prior chemo and radiation. -Previously followed by Dr. Quintero of heme-onc. -Pending outpatient appointment with Dr. Judd. HTN, HLD: -Patient says she is not on medication for this. -On home aspirin. COPD: -Life-long current smoker. -Denies ever needing any respiratory inhalers. -Was noted to have a SpO2 drop to 88% after getting morphine. -Will monitor and provide supplemental NC oxygen prn goal > 92%. Hypothyroidism: -08May TSH 3.8. -On home synthroid. GERD: -On home pantoprazole. Depression/anxiety: -On home celexa. -Says her in December. -Will keep as needed lorazepam. PMH thrush: -Says she is prone to thrush after antibiotics, but not at present. -Started on prophylactic diflucan daily and will monitor. Code status: DNR/DNI (confirmed with patient on admit). Diet: Advanced to clears. D5 1/2 NS + 20 KCl at 100 mL/hr until tolerating caloric diet. DVT prophy: SCDs. Heparin BID. PT/OT: Deferred on admission. Dispo: Admit to [facility]. Patient lives at home. Presently grandson lives with her. (2) SBO (small bowel obstruction): (3) Pelvic abscess: (4) Hydroureteronephrosis: (5) Anemia: (6) Hypokalemia: (7) Hypomagnesemia: (8) Adenocarcinoma of lung, stage 4: (9) Hypertension: (10) Hyperlipidemia: (11) COPD (chronic obstructive pulmonary disease): (12) Hypothyroidism: (13) GERD (gastroesophageal reflux disease): (14) Depression: Admission and Anticipated Discharge Date Admission Date: February 20, 2020 Supervising Physician Co-Signing Physician Notes I personally examined the patient and verified all thorpe points of history and exam, discussed case, and agree with decision making with Dr Paul. nausea when she first wakes up. otherwise doing a little better this afternoon than this morning. discussed concern on nutrition, discussed case w staff toxicologist as well. she notes that at last assessment she believes her oncologist thought her chemo was going well. vitals noted nad heent nc at mmm breathing unlabored no accessory muscles. abd soft but diffusely tender no rigidity - Abdominal pain due to abscesses no role for drainage, continue IV Zosyn, unfortuantely with nausea diet had to be regressed to NPO - may need to consider TPN if this doesn't improve in the next day or two ongoing supportive care and med management otherwise Subjective Pt seen this AM. Was nauseous overnight with abd pain. Still nauseous this AM, states that Zofran not helping. Also has 5/10 abdominal pain. Review of Systems Review of Systems: All systems reviewed & are unremarkable except as noted in HPI & below Physical Exam Physical Exam: General: Alert, oriented. laying in bed with emesis bag Skin: No noted rashes or bruises Psych: Appropriate mood and affect Neuro: No gross deficits HEENT: NC/AT Chest: Nontender to palpation. CV: RRR, Normal s1, s2. No murmurs appreciated Resp: Breath sounds clear bilaterally, no increased effort of breathing Abdomen: BS+. Soft, tender diffusely, No guarding. Extremities: SCDs on lower extremities bilaterally. Results & Data Results & Data ([facility]) Vital Signs (Past 12 Hours) Vital Signs Temp Pulse Resp BP Pulse Ox 02/24/20 06:57 36.7 C 89 16 118/68 92 Resident Activity Tracking Resident Involvement: Resident Care Provided Care Provided: Adult Hospital Medicine (1) Adenocarcinoma of lung, stage 4 Laterality: unspecified laterality Qualified Code(s): C34.90 - Malignant neoplasm of unspecified part of unspecified bronchus or lung (2) Anemia Anemia type: other cause Other causes of anemia: other cause, not classified Qualified Code(s): D64.89 - Other specified anemias (3) Hyperlipidemia Hyperlipidemia type: pure hypertriglyceridemia Qualified Code(s): E78.1 - Pure hyperglyceridemia (4) Hypothyroidism Hypothyroidism type: acquired Qualified Code(s): E03.9 - Hypothyroidism, unspecified (5) COPD (chronic obstructive pulmonary disease) COPD type: unspecified COPD Qualified Code(s): J44.9 - Chronic obstructive pulmonary disease, unspecified (6) GERD (gastroesophageal reflux disease) Esophagitis presence: without esophagitis Qualified Code(s): K21.9 - Gastro- esophageal reflux disease without esophagitis
--- NOTE | 2020-02-24 14:54 | Surgery Progress Note ---
Date of Service February 24, 2020 Assessment & Plan (1) Small bowel obstruction: Likely secondary to adhesions, inflammation from intra-abdominal abscesses. Ostomy is functioning and tolerated advancement of diet until last evening with nausea throughout the night. KUB today 02/24/20 showing nonobstructive ileus Plan: strict NPO Recommend NGT if persistent vomiting increase activity/ambulation if possible continue pain management as needed, try to limit narcotics to increase GI motility continue IV Abx for intra-abdominal abscesses Nutrition consulted per daughters request, will need to evaluate once able to take PO Wound care consulted for ostomy appliance/barrier change will follow (2) Abdominal pain: secondary to abscesses/ SBO/and now likely ileus plan as above (3) Lung cancer: Stage 4 with bone mets on chemotherapy (4) Pelvic abscess: Multiple small abscesses not felt to be amenable to CT drainage. Continue IV antibiotics as they are small enough that they may resolve without requiring drainage. (5) Anemia: H/H continues to drift lower. No active sign of bleeding. s/p 1 unit of PRBCs. H&H 8.12/24. today Dr. Conrad was present during my examination and agrees with above. Subjective patient sitting at edge of bed , vomiting with emesis bag about 100 cc of gr een/brown output abdominal pain controlled with medication ostomy still functioning but not as much as before feels better now after vomiting Physical Exam Constitutional: WD/WN, vitals as above no acute distress Respiratory: + abnormal respiratory effort Gastrointestinal (Abdomen): Inspection/Auscultation: + abdomen distended Percussion/Palpation: + abdomen tender (epigastrium/mid abdomen) and abdomen soft; no guarding and abdomen not rigid ostomy with small amount of dark stool output Skin: no rashes, warm and dry Psychiatric: Orientation: alert and oriented x 3 Results & Data Vital Signs (Past 12 Hours) Vital Signs Temp Pulse Resp BP Pulse Ox 02/24/20 06:57 36.7 C 89 16 118/68 92 Laboratory Results 02/24/20 02/24/20 02/24/20 Range/Units 05:08 05:08 05:08 WBC 9.58 (4.8-10.8) K/uL RBC 3.20 L (4.2-5.4) M/uL Hgb 8.3 L (12.0-16.0) g/dL Hct 26.5 L (37-47) % MCV 82.8 (80-100) fL MCH 25.9 (25-34) pg MCHC 31.3 L (32-36) g/dL RDW Std Deviation 59.3 H (36.4-46.3) fL RDW Coeff of Raymundo 20.0 H (11.5-14.5) % Plt Count 313 (130-400) K/uL MPV 8.8 (7.4-10.4) fL Immature Gran % (Auto) 0.3 % Neut % (Auto) 80.3 % Lymph % (Auto) 5.4 % [place] % (Auto) 11.2 % Eos % (Auto) 2.7 % Baso % (Auto) 0.1 % Immature Gran # (Auto) 0.03 H (0.00-0.02) K/uL Neut # (Auto) 7.69 H (1.4-6.5) K/uL Lymph # (Auto) 0.52 L (1.2-3.4) K/uL [place] # (Auto) 1.07 H (0.11-0.59) K/uL Eos # (Auto) 0.26 (0-0.5) K/uL Baso # (Auto) 0.01 (0-0.2) K/uL Tear Drop Cells 1+ Echinocytes 1+ Sodium 136 (136-145) mmol/L Potassium 3.3 L (3.5-5.1) mmol/L Chloride 107 (98-107) mmol/L Carbon Dioxide 26 (21-32) mmol/L Anion Gap 3.0 (3-11) BUN 3 L (7-18) mg/dl Creatinine 0.52 L (0.6-1.2) mg/dl Est Cr Clr Drug Dosing 68.1 ml/min Est GFR ( Amer) 106.8 Est GFR (Non-Af Amer) 92.2 BUN/Creatinine Ratio 5.4 L (10-20) Glucose 117 H (70-99) mg/dl Calcium 7.9 L (8.5-10.1) mg/dl Phosphorus 2.4 L (2.5-4.9) mg/dl Magnesium 2.0 (1.8-2.4) mg/dl Diagnostic Findings XR KUB/Abdomen 1 view CLINICAL HISTORY: Upper abdominal pain/mets pain COMPARISON STUDY: 09/29/2019 FINDINGS: Mild nonobstructive small bowel ileus. Left lower quadrant ostomy site. No secondary signs of free air. Mild bibasilar atelectatic change. Prior left hip arthroplasty. IMPRESSION: Bibasilar atelectatic change. 2. Mild nonobstructive ileus. 3. Postoperative changes as described. (1) Anemia Anemia type: other cause Other causes of anemia: chronic disease, neoplastic Qualified Code(s): D63.0 - Anemia in neoplastic disease
--- NOTE | 2020-02-24 18:29 | Billing Data ---
Date of Service February 24, 2020 Coding Level of Care Code 37042 Subseq Hosp Care Lvl 3
[2020-02-24] MEDS ORDERED: ONDANSETRON INJ 2 MG/ML 2 ML VIAL IV ONE (19:59)
[2020-02-25] MEDS: PIPERACILLIN/TAZOBACTAM 3.375 GM in DEXTROSE 5% 100 ML IV SCH ×3 (04:07→19:32)
[2020-02-25] MEDS: POTASSIUM CHLORIDE 40 MEQ in D5W AND 1/2NSS 1,000 ML/1,000 ML BAG IV SCH (04:07)
[2020-02-25] MEDS: LEVOTHYROXINE SODIUM 100 MCG TABLET PO SCH (04:22)
[2020-02-25 05:38] LABS: Basophils # (auto) 0.02 K/uL (0-0.2); Basophils % (auto) 0.2 %; Eosinophils # (auto) 0.26 K/uL (0-0.5); Eosinophils % (auto) 2.6 %; Hematocrit (blood only) 27.8 % (37-47); Hemoglobin 8.8 g/dL (12.0-16.0); Immature Granulocytes # (auto) 0.04 K/uL (0.00-0.02); Immature Granulocytes % (auto) 0.4 %; Lymphocytes # (auto) 0.62 K/uL (1.2-3.4); Lymphocytes % (auto) 6.3 %; Mean Corpuscular Hemoglobin 26.4 pg (25-34); Mean Corpuscular Hgb Conc 31.7 g/dL (32-36); Mean Corpuscular Volume 83.5 fL (80-100); Mean Platelet Volume 8.3 fL (7.4-10.4); Monocytes # (auto) 1.15 K/uL (0.11-0.59); Monocytes % (auto) 11.6 %; Neutrophils % (auto) 78.9 %; Platelet Count 294 K/uL (130-400); RDW Coefficient of Variation 20.4 % (11.5-14.5); RDW Standard Deviation 60.5 fL (36.4-46.3); Red Blood Count 3.33 M/uL (4.2-5.4); White Blood Count 9.89 K/uL (4.8-10.8)
[2020-02-25 06:07] LABS: BUN Creatinine Ratio 3.4 (10-20); Calcium 7.6 mg/dl (8.5-10.1); Creatinine Clr Calc Pharmacy 69.4 ml/min; Est GFR (African American) 107.5; Est GFR (Non-African American) 92.8; Magnesium 1.5 mg/dl (1.8-2.4); Phosphorus 1.6 mg/dl (2.5-4.9)
[2020-02-25 06:42] LABS: Anisocytosis Present; Echinocytes 1+; Hypochromasia Present; Tear Drop Cells 1+
[2020-02-25] MEDS: PANTOprazole 40 MG TAB PO SCH (08:13)
[2020-02-25] MEDS: CITALOPRAM 40 MG TAB PO SCH (08:13)
[2020-02-25] MEDS: FOLIC ACID 1 MG TAB PO SCH (08:13)
[2020-02-25] MEDS: ASPIRIN 81 MG ECTAB PO SCH (08:13)
[2020-02-25] MEDS ORDERED: POTASSIUM PHOS 3 MMOL/1 ML INFUSION IV STA (08:44)
[2020-02-25] MEDS ORDERED: POTASSIUM PHOSPHATE 21 MMOL in SODIUM CHLORIDE 0.9% 500 ML IV ONE (09:15)
[2020-02-25] MEDS: HEPARIN SOD 5,000 UNIT/0.5 ML VIAL SC SCH ×2 (09:56→21:59)
[2020-02-25] MEDS: MAGNESIUM SULFATE / D5W 1 GM/100 ML BAG IV SCH ×2 (09:58→12:10)
[2020-02-25] MEDS: LORazepam 0.5 MG TAB PO PRN (12:13)
--- NOTE | 2020-02-25 14:07 | Hospitalist Progress Note ---
Date of Service February 25, 2020 Assessment & Plan (1) Abdominal pain: 79-year-old female was admitted on 20 Feb 2020 after c/o abdominal pain likely secondary to SBO and related abdominal abscesses. Abdominal pain, small bowel obstruction, abdominal abscesses: -Notable history of prior SBO, diverticulitis, pelvic abscesses and s/p sigmoid colostomy in Oct 2019. -08Apr abdomen wound grew resistant pseudomonas. -For this admit, CT a/p notes SBO, multifocal abscesses, ascites. -22May started vancomycin and Zosyn. Vancomycin discontinued 02/23/2020. -02/23 KUB overnight noted ileus -Blood cultures NGTD. -On morphine for pain control -Switched to compazine for nausea control. -Advancing diet to clears once more 02/24 -Appreciate Gen Surgery consult: -Planned non-operative management. -Recommended NGT if worsens or continued vomiting. -Multiple small abscesses not thought to be amenable to CT drainage. -Continue antibiotics. -Advance diet as tolerated -Appreciate nutrition and wound care consult Urinary pressure: -Patient feels relatively acute pressure with urination but no pain. -UA unremarkable -CT a/p noted moderate bilateral hydroureteronephrosis likely secondary to pelvic abscesses. -Discussed case with urology who recommended watching Cr and voiding metrics. Bladder scan each shift and straight cath if PVR > 350 mL. -Currently improving Anemia: -Admit Hb 8.4, MCV 82. -History of transfusion after Oct 2019 surgery. Recent comparisons around Hb 10. -Received 1U irradiated leukoreduced pRBCs transfusion on 02/23/2020 for Hgb of 6.7 -No present evidence of active bleeding. -Iron studies suggestive of iron deficiency and/or anemia of chronic inflammation. -Presently on iron sucrose 300 mg IV daily x 3 doses. Hypokalemia, hypomagnesemia, hypophosphatemia: -replete as needed RLL metastatic lung adenocarcinoma (dx Jun 2019): -Mets to bone and previous left hip replacement. -Prior chemo and radiation. -Previously followed by Dr. Quintero of heme-onc. -Pending outpatient appointment with Dr. Judd. HTN, HLD: -Patient says she is not on medication for this. -On home aspirin. COPD: -Life-long current smoker. -Denies ever needing any respiratory inhalers. -Was noted to have a SpO2 drop to 88% after getting morphine. -Will monitor and provide supplemental NC oxygen prn goal > 92%. Hypothyroidism: -08May TSH 3.8. -On home synthroid. GERD: -On home pantoprazole. Depression/anxiety: -On home celexa. -Says her in December. -Will keep as needed lorazepam. PMH thrush: -Says she is prone to thrush after antibiotics, but not at present. -Started on prophylactic diflucan daily and will monitor. Code status: DNR/DNI (confirmed with patient on admit). Diet: Advanced to clears. DVT prophy: SCDs. Heparin BID. PT/OT: Ordered. Dispo: Admit to [facility]. Patient lives at home. Presently grandson lives with her. (2) SBO (small bowel obstruction): (3) Pelvic abscess: (4) Hydroureteronephrosis: (5) Anemia: (6) Hypokalemia: (7) Hypomagnesemia: (8) Adenocarcinoma of lung, stage 4: (9) Hypertension: (10) Hyperlipidemia: (11) COPD (chronic obstructive pulmonary disease): (12) Hypothyroidism: (13) GERD (gastroesophageal reflux disease): (14) Depression: Admission and Anticipated Discharge Date Admission Date: February 20, 2020 Supervising Physician Co-Signing Physician Notes I personally examined the patient and verified all thorpe points of history and exam, discussed case, and agree with decision making with Dr Paul. smiling! pain better and nausea better. ate broth. did well. vitals noted nad heent nc at mmm breathing unlabored no accessory muscles. abd soft but diffusely tender - somewhat less than yesterday and no guarding/rigidity - Abdominal pain due to abscesses no role for drainage, continue IV Zosyn, does appear to be back on track of improvement -- clear liquid diet for now, hopefully can continue to advance. likely to need fairly long course of abx. ongoing supportive care and med management otherwise/otherwise as above Subjective Pt seen this AM. Had some nausea overnight that required an additional dose of ZOfran with the compazine. However, this AM states she feels much better and is willing to try clears once more. Still having some mild abdominal pain. Review of Systems Review of Systems: All systems reviewed & are unremarkable except as noted in Subjective Physical Exam Physical Exam: General: Alert, oriented, laying in bed. Skin: No noted rashes or bruises Psych: Appropriate mood and affect Neuro: No gross deficits HEENT: NC/AT Chest: Nontender to palpation. CV: RRR, Normal s1, s2. No murmurs appreciated Resp: Breath sounds clear bilaterally, no increased effort of breathing Abdomen: Soft, tender diffusely, No guarding. Extremities: Trace edema lower extremities bilaterally. Results & Data Results & Data ([facility]) Vital Signs (Past 12 Hours) Vital Signs Temp Pulse Resp BP Pulse Ox 02/25/20 07:40 36.5 C 70 16 124/66 94 Resident Activity Tracking Resident Involvement: Resident Care Provided Care Provided: Adult Hospital Medicine (1) Adenocarcinoma of lung, stage 4 Laterality: unspecified laterality Qualified Code(s): C34.90 - Malignant neoplasm of unspecified part of unspecified bronchus or lung (2) Anemia Anemia type: other cause Other causes of anemia: other cause, not classified Qualified Code(s): D64.89 - Other specified anemias (3) Hyperlipidemia Hyperlipidemia type: pure hypertriglyceridemia Qualified Code(s): E78.1 - Pure hyperglyceridemia (4) Hypothyroidism Hypothyroidism type: acquired Qualified Code(s): E03.9 - Hypothyroidism, unspecified (5) COPD (chronic obstructive pulmonary disease) COPD type: unspecified COPD Qualified Code(s): J44.9 - Chronic obstructive pulmonary disease, unspecified (6) GERD (gastroesophageal reflux disease) Esophagitis presence: without esophagitis Qualified Code(s): K21.9 - Gastro- esophageal reflux disease without esophagitis
--- NOTE | 2020-02-25 14:16 | Surgery Progress Note ---
Date of Service February 25, 2020 Assessment & Plan (1) Small bowel obstruction: Likely secondary to adhesions, inflammation from intra-abdominal abscesses. Ostomy is functioning and tolerated advancement of diet until evening of 02/23/20 with nausea throughout the night, KUB 02/24/20 showing ileus 02/25/20: -feeling better today, less pain, less bloating, + ostomy output, no vomiting today so far Plan: okay for clear liquids, advised pt to take very slowly and stop if any nausea, pain or bloating. increase activity/ambulation if possible continue pain management as needed, try to limit narcotics to increase GI motility continue IV Abx for intra-abdominal abscesses Nutrition consulted per daughters request Wound care consulted for ostomy appliance/barrier change will follow (2) Abdominal pain: secondary to abscesses/ SBO/and now likely ileus improving today plan as above (3) Lung cancer: Stage 4 with bone mets on chemotherapy (4) Pelvic abscess: Multiple small abscesses not felt to be amenable to CT drainage. Continue IV antibiotics as they are small enough that they may resolve without requiring drainage. (5) Anemia: H/H continues to drift lower. No active sign of bleeding. s/p 1 unit of PRBCs. H&H stable at 8.8/27.8 Dr. Conrad has seen patient and agrees with above. Subjective feeling better today no nausea or vomiting today, had vomiting last night "a decent amount" not much abdominal pain today, feels less bloated ostomy is functioning Physical Exam Constitutional: WD/WN, vitals as above no acute distress Gastrointestinal (Abdomen): Percussion/Palpation: abdomen soft; abdomen nontender, no guarding and abdomen not rigid ostomy in left lower quadrant with liquid,soft dark stool present Skin: no rashes, warm and dry Psychiatric: Orientation: alert and oriented x 3 Results & Data Vital Signs (Past 12 Hours) Vital Signs Temp Pulse Resp BP Pulse Ox 02/25/20 07:40 36.5 C 70 16 124/66 94 Laboratory Results 02/25/20 02/25/20 02/25/20 Range/Units 05:27 05: 05: WBC 9.89 (4.8-10.8) K/uL RBC 3.33 L (4.2-5.4) M/uL Hgb 8.8 L (12.0-16.0) g/dL Hct 27.8 L (37-47) % MCV 83.5 (80-100) fL MCH 26.4 (25-34) pg MCHC 31.7 L (32-36) g/dL RDW Std Deviation 60.5 H (36.4-46.3) fL RDW Coeff of [place] 20.4 H (11.5-14.5) % Plt Count 294 (130-400) K/uL MPV 8.3 (7.4-10.4) fL Immature Gran % (Auto) 0.4 % Neut % (Auto) 78.9 % Lymph % (Auto) 6.3 % [place] % (Auto) 11.6 % Eos % (Auto) 2.6 % Baso % (Auto) 0.2 % Immature Gran # (Auto) 0.04 H (0.00-0.02) K/uL Neut # (Auto) 7.80 H (1.4-6.5) K/uL Lymph # (Auto) 0.62 L (1.2-3.4) K/uL [place] # (Auto) 1.15 H (0.11-0.59) K/uL Eos # (Auto) 0.26 (0-0.5) K/uL Baso # (Auto) 0.02 (0-0.2) K/uL Hypochromasia Present Anisocytosis Present Tear Drop Cells 1+ Echinocytes 1+ Sodium 138 (136-145) mmol/L Potassium 4.0 D (3.5-5.1) mmol/L Chloride 110 H (98-107) mmol/L Carbon Dioxide 26 (21-32) mmol/L Anion Gap 2.0 L (3-11) BUN 2 L (7-18) mg/dl Creatinine 0.51 L (0.6-1.2) mg/dl Est Cr Clr Drug Dosing 69.4 ml/min Est GFR ( Amer) 107.5 Est GFR (Non-Af Amer) 92.8 BUN/Creatinine Ratio 3.4 L (10-20) Glucose 105 H (70-99) mg/dl Calcium 7.6 L (8.5-10.1) mg/dl Ionized Calcium 1.21 (1.12-1.32) mmol/L Phosphorus 1.6 L (2.5-4.9) mg/dl Magnesium 1.5 L (1.8-2.4) mg/dl (1) Anemia Anemia type: other cause Other causes of anemia: chronic disease, neoplastic Qualified Code(s): D63.0 - Anemia in neoplastic disease
[2020-02-25] MEDS: HEPARIN 100 UNIT/ML 5ML FLUSH FLUSH PRN ×2 (17:23→23:32)
--- NOTE | 2020-02-25 18:49 | Billing Data ---
Date of Service February 25, 2020 Coding Level of Care Code 82963 Subseq Hosp Care Lvl 3
[2020-02-25] MEDS ORDERED: LORazepam 1 MG TAB PO STA (19:16)
[2020-02-25] MEDS ORDERED: LORazepam 1 MG TAB ONE (22:05)
[2020-02-25] MEDS: PROCHLORPERAZINE 5 MG in SYRINGE 4 ML IV PRN (22:58)
[2020-02-26] MEDS: LEVOTHYROXINE SODIUM 100 MCG TABLET PO SCH (03:57)
[2020-02-26] MEDS: PIPERACILLIN/TAZOBACTAM 3.375 GM in DEXTROSE 5% 100 ML IV SCH ×3 (03:57→19:31)
[2020-02-26 06:29] LABS: Basophils # (auto) 0.01 K/uL (0-0.2); Basophils % (auto) 0.1 %; Eosinophils # (auto) 0.11 K/uL (0-0.5); Eosinophils % (auto) 0.9 %; Hematocrit (blood only) 27.9 % (37-47); Hemoglobin 8.6 g/dL (12.0-16.0); Immature Granulocytes # (auto) 0.04 K/uL (0.00-0.02); Immature Granulocytes % (auto) 0.3 %; Lymphocytes # (auto) 0.63 K/uL (1.2-3.4); Mean Corpuscular Hemoglobin 25.7 pg (25-34); Mean Corpuscular Hgb Conc 30.8 g/dL (32-36); Mean Corpuscular Volume 83.5 fL (80-100); Mean Platelet Volume 8.5 fL (7.4-10.4); Monocytes # (auto) 1.16 K/uL (0.11-0.59); Monocytes % (auto) 9.3 %; Neutrophils # (auto) 10.57 K/uL (1.4-6.5); Neutrophils % (auto) 84.4 %; Platelet Count 326 K/uL (130-400); RDW Coefficient of Variation 20.8 % (11.5-14.5); RDW Standard Deviation 60.8 fL (36.4-46.3); Red Blood Count 3.34 M/uL (4.2-5.4); White Blood Count 12.52 K/uL (4.8-10.8)
[2020-02-26 07:03] LABS: BUN Creatinine Ratio 4.1 (10-20); Calcium 7.8 mg/dl (8.5-10.1); Creatinine Clr Calc Pharmacy 73.8 ml/min; Est GFR (African American) 109.7; Est GFR (Non-African American) 94.6; Magnesium 1.6 mg/dl (1.8-2.4); Phosphorus 1.8 mg/dl (2.5-4.9); Potassium 3.3 mmol/L (3.5-5.1)
[2020-02-26 07:22] LABS: Anisocytosis Present; Hypochromasia Present
[2020-02-26] MEDS: HEPARIN 100 UNIT/ML 5ML FLUSH FLUSH PRN ×3 (07:40→23:00)
[2020-02-26] MEDS ORDERED: POTASSIUM PHOS 3 MMOL/1 ML INFUSION IV STA (08:39)
[2020-02-26] MEDS: CITALOPRAM 40 MG TAB PO SCH (08:41)
[2020-02-26] MEDS: FOLIC ACID 1 MG TAB PO SCH (08:42)
[2020-02-26] MEDS: HEPARIN SOD 5,000 UNIT/0.5 ML VIAL SC SCH ×2 (08:42→21:21)
[2020-02-26] MEDS: PANTOprazole 40 MG TAB PO SCH (08:42)
[2020-02-26] MEDS: ASPIRIN 81 MG ECTAB PO SCH (08:42)
[2020-02-26] MEDS ORDERED: POTASSIUM PHOSPHATE 21 MMOL in SODIUM CHLORIDE 0.9% 500 ML IV ONE (09:00)
[2020-02-26] MEDS: MAGNESIUM SULFATE / D5W 1 GM/100 ML BAG IV SCH ×4 (10:07→16:40)
--- NOTE | 2020-02-26 11:05 | Surgery Progress Note ---
Date of Service February 26, 2020 Assessment & Plan (1) Small bowel obstruction: Likely secondary to adhesions, inflammation from intra-abdominal abscesses. Ostomy is functioning and tolerated advancement of diet until evening of 02/23/20 with nausea throughout the night, KUB 02/24/20 showing ileus 02/26/20 Still having intermittent nausea and emesis however colostomy functioning and abdomen is nondistended, soft Leukocytosis at 12.52K Plan: continue clear liquids, advised pt to take very slowly and stop if any nausea, pain or bloating. increase activity/ambulation if possible continue pain management as needed, try to limit narcotics to increase GI motility continue IV Abx for intra-abdominal abscesses May need to consider repeat CT scan of abd/pelvis if wbc increases again tomorrow. Repeat am labs. Nutrition consulted per daughters request Wound care consulted for ostomy appliance/barrier change will follow (2) Abdominal pain: secondary to abscesses/ SBO/and now likely ileus more so in lower mid abdomen/pelvis today plan as above (3) Lung cancer: Stage 4 with bone mets on chemotherapy (4) Pelvic abscess: Multiple small abscesses not felt to be amenable to CT drainage. Continue IV antibiotics as they are small enough that they may resolve without requiring drainage. Leukocytosis today May need to repeat CT scan of abd/pelvis if wbc increases tomorrow repeat am labs (5) Anemia: No active sign of bleeding. s/p 1 unit of PRBCs. H&H stable at 8.6/27.9 Dr. Conrad has seen patient and agrees with above. Subjective had nausea and emesis yesterday with clear liquids, happened 3 times no nausea or vomiting throughout night or today so far, has not had breakfast yet ostomy functioning not much pain did not sleep well last night , main concern is being tired Physical Exam Constitutional: WD/WN, vitals as above no acute distress Respiratory: normal respiratory effort Gastrointestinal (Abdomen): Inspection/Auscultation: abdomen normal to inspection and normal bowel sounds; abdomen not distended Percussion/Palpation: + abdomen tender (mid lower abdomen) and abdomen soft; no guarding and abdomen not rigid ostomy in LLQ with liquid dark stool Skin: no rashes, warm and dry Psychiatric: Orientation: alert and oriented x 3 Results & Data Vital Signs (Past 12 Hours) Vital Signs Temp Pulse Resp BP BP Pulse Ox 02/26/20 07:30 36.8 C 81 16 147/71 H 92 02/25/20 23:12 36.7 C 72 16 115/61 95 Laboratory Results 02/26/20 02/26/20 Range/Units 05:49 05:49 WBC 12.52 H (4.8-10.8) K/uL RBC 3.34 L (4.2-5.4) M/uL Hgb 8.6 L (12.0-16.0) g/dL Hct 27.9 L (37-47) % MCV 83.5 (80-100) fL MCH 25.7 (25-34) pg MCHC 30.8 L (32-36) g/dL RDW Std Deviation 60.8 H (36.4-46.3) fL RDW Coeff of Raym[place] 20.8 H (11.5-14.5) % Plt Count 326 (130-400) K/uL MPV 8.5 (7.4-10.4) fL Immature Gran % (Auto) 0.3 % Neut % (Auto) 84.4 % Lymph % (Auto) 5.0 % [place] % (Auto) 9.3 % Eos % (Auto) 0.9 % Baso % (Auto) 0.1 % Immature Gran # (Auto) 0.04 H (0.00-0.02) K/uL Neut # (Auto) 10.57 H (1.4-6.5) K/uL Lymph # (Auto) 0.63 L (1.2-3.4) K/uL [place] # (Auto) 1.16 H (0.11-0.59) K/uL Eos # (Auto) 0.11 (0-0.5) K/uL Baso # (Auto) 0.01 (0-0.2) K/uL Hypochromasia Present Anisocytosis Present Sodium 136 (136-145) mmol/L Potassium 3.3 L D (3.5-5.1) mmol/L Chloride 105 (98-107) mmol/L Carbon Dioxide 27 (21-32) mmol/L Anion Gap 4.0 (3-11) BUN 2 L (7-18) mg/dl Creatinine 0.48 L (0.6-1.2) mg/dl Est Cr Clr Drug Dosing 73.8 ml/min Est GFR ( Amer) 109.7 Est GFR (Non-Af Amer) 94.6 BUN/Creatinine Ratio 4.1 L (10-20) Glucose 86 (70-99) mg/dl Calcium 7.8 L (8.5-10.1) mg/dl Phosphorus 1.8 L (2.5-4.9) mg/dl Magnesium 1.6 L (1.8-2.4) mg/dl (1) Anemia Anemia type: other cause Other causes of anemia: chronic disease, neoplastic Qualified Code(s): D63.0 - Anemia in neoplastic disease
--- NOTE | 2020-02-26 15:17 | Hospitalist Progress Note ---
Date of Service February 26, 2020 Assessment & Plan (1) Abdominal pain: 79-year-old female was admitted on 20 Feb 2020 after c/o abdominal pain likely secondary to SBO and related abdominal abscesses. Abdominal pain, small bowel obstruction, abdominal abscesses: -Notable history of prior SBO, diverticulitis, pelvic abscesses and s/p sigmoid colostomy in Oct 2019. -08Apr abdomen wound grew resistant pseudomonas. -For this admit, CT a/p notes SBO, multifocal abscesses, ascites. -22May started vancomycin and Zosyn. Vancomycin discontinued 02/23/2020. -02/23 KUB overnight noted ileus -02/25- noted increase in WBC, will continue to monitor -Blood cultures NGTD. -On morphine for pain control -Switched to compazine for nausea control. -Advancing diet, tolerating well -Appreciate Gen Surgery consult: -Planned non-operative management. -Recommended NGT if worsens or continued vomiting. -Multiple small abscesses not thought to be amenable to CT drainage. -Continue antibiotics. -Advance diet as tolerated -Appreciate nutrition and wound care consult Urinary pressure: -Patient feels relatively acute pressure with urination but no pain. -UA unremarkable -CT a/p noted moderate bilateral hydroureteronephrosis likely secondary to pelvic abscesses. -Discussed case with urology who recommended watching Cr and voiding metrics. Bladder scan each shift and straight cath if PVR > 350 mL. -Currently improving Anemia: -Admit Hb 8.4, MCV 82. -History of transfusion after Oct 2019 surgery. Recent comparisons around Hb 10. -Received 1U irradiated leukoreduced pRBCs transfusion on 02/23/2020 for Hgb of 6.7 -No present evidence of active bleeding. -Iron studies suggestive of iron deficiency and/or anemia of chronic inflammation. -Presently on iron sucrose 300 mg IV daily x 3 doses. Hypokalemia, hypomagnesemia, hypophosphatemia: -replete as needed RLL metastatic lung adenocarcinoma (dx Jun 2019): -Mets to bone and previous left hip replacement. -Prior chemo and radiation. -Previously followed by Dr. Quintero of heme-onc. -Pending outpatient appointment with Dr. Judd. HTN, HLD: -Patient says she is not on medication for this. -On home aspirin. COPD: -Life-long current smoker. -Denies ever needing any respiratory inhalers. -Was noted to have a SpO2 drop to 88% after getting morphine. -Will monitor and provide supplemental NC oxygen prn goal > 92%. Hypothyroidism: -08May TSH 3.8. -On home synthroid. GERD: -On home pantoprazole. Depression/anxiety: -On home celexa. -Says her in December. -Will keep as needed lorazepam. PMH thrush: -Says she is prone to thrush after antibiotics, but not at present. -Started on prophylactic diflucan daily and will monitor. Code status: DNR/DNI (confirmed with patient on admit). Diet: Advancing DVT prophy: SCDs. Heparin BID. PT/OT: Ordered. Dispo: Admit to [facility]. Patient lives at home. Presently grandson lives with her. (2) SBO (small bowel obstruction): (3) Pelvic abscess: (4) Hydroureteronephrosis: (5) Anemia: (6) Hypokalemia: (7) Hypomagnesemia: (8) Adenocarcinoma of lung, stage 4: (9) Hypertension: (10) Hyperlipidemia: (11) COPD (chronic obstructive pulmonary disease): (12) Hypothyroidism: (13) GERD (gastroesophageal reflux disease): (14) Depression: Admission and Anticipated Discharge Date Admission Date: February 20, 2020 Supervising Physician Co-Signing Physician Notes I personally examined the patient and verified all thorpe points of history and exam, discussed case, and agree with decision making with Dr Paul. continues to do well w liquid diet - would like to try real food - like noodles or something. pain ipmroving vitals noted nad heent nc at mmm breathing unlabored no accessory muscles. abd soft and nearly nontender - Abdominal pain due to abscesses no role for drainage, continue IV Zosyn, does appear to be back on track of improvement -- advance diet. likely to need fairly long course of abx. ongoing supportive care and med management otherwise/otherwise as above Subjective Pt seen this AM. States her colostomy bag broke. Tolerated food overnight. Review of Systems Review of Systems: All systems reviewed & are unremarkable except as noted in Subjective Physical Exam Physical Exam: General: Alert, oriented, sitting on bed, thin Skin: No noted rashes or bruises Psych: Appropriate mood and affect Neuro: No gross deficits HEENT: NC/AT Chest: Nontender to palpation. CV: RRR, Normal s1, s2. No murmurs appreciated Resp: Breath sounds clear bilaterally, no increased effort of breathing Abdomen: Soft, tender diffusely, No guarding. Extremities: Trace edema lower extremities bilaterally. Results & Data Results & Data ([facility] [place]) Vital Signs (Past 12 Hours) Vital Signs Temp Pulse Resp BP Pulse Ox 02/26/20 07:30 36.8 C 81 16 147/71 H 92 Resident Activity Tracking Resident Involvement: Resident Care Provided Care Provided: Adult Hospital Medicine (1) Adenocarcinoma of lung, stage 4 Laterality: unspecified laterality Qualified Code(s): C34.90 - Malignant neoplasm of unspecified part of unspecified bronchus or lung (2) Anemia Anemia type: other cause Other causes of anemia: other cause, not classified Qualified Code(s): D64.89 - Other specified anemias (3) Hyperlipidemia Hyperlipidemia type: pure hypertriglyceridemia Qualified Code(s): E78.1 - Pure hyperglyceridemia (4) Hypothyroidism Hypothyroidism type: acquired Qualified Code(s): E03.9 - Hypothyroidism, unspecified (5) COPD (chronic obstructive pulmonary disease) COPD type: unspecified COPD Qualified Code(s): J44.9 - Chronic obstructive pulmonary disease, unspecified (6) GERD (gastroesophageal reflux disease) Esophagitis presence: without esophagitis Qualified Code(s): K21.9 - Gastro- esophageal reflux disease without esophagitis
--- NOTE | 2020-02-26 19:43 | Billing Data ---
Date of Service February 26, 2020 Coding Level of Care Code 35870 Subseq Hosp Care Lvl 3
[2020-02-26] MEDS: LORazepam 0.5 MG TAB PO PRN (23:16)
[2020-02-27] MEDS: PIPERACILLIN/TAZOBACTAM 3.375 GM in DEXTROSE 5% 100 ML IV SCH ×3 (04:39→20:05)
[2020-02-27] MEDS: LEVOTHYROXINE SODIUM 100 MCG TABLET PO SCH (04:40)
[2020-02-27 06:08] LABS: Basophils # (auto) 0.02 K/uL (0-0.2); Basophils % (auto) 0.2 %; Eosinophils # (auto) 0.11 K/uL (0-0.5); Eosinophils % (auto) 0.9 %; Hematocrit (blood only) 29.3 % (37-47); Hemoglobin 9.4 g/dL (12.0-16.0); Immature Granulocytes # (auto) 0.05 K/uL (0.00-0.02); Immature Granulocytes % (auto) 0.4 %; Lymphocytes # (auto) 0.86 K/uL (1.2-3.4); Lymphocytes % (auto) 7.1 %; Mean Corpuscular Hemoglobin 26.6 pg (25-34); Mean Corpuscular Hgb Conc 32.1 g/dL (32-36); Mean Corpuscular Volume 82.8 fL (80-100); Mean Platelet Volume 8.4 fL (7.4-10.4); Monocytes % (auto) 9.9 %; Neutrophils # (auto) 9.92 K/uL (1.4-6.5); Neutrophils % (auto) 81.5 %; Platelet Count 331 K/uL (130-400); RDW Standard Deviation 62.3 fL (36.4-46.3); Red Blood Count 3.54 M/uL (4.2-5.4); White Blood Count 12.16 K/uL (4.8-10.8)
[2020-02-27 06:30] LABS: Anisocytosis Present; Ovalocytes 1+; Tear Drop Cells 1+
[2020-02-27 06:43] LABS: BUN Creatinine Ratio 5.1 (10-20); Calcium 7.7 mg/dl (8.5-10.1); Creatinine Clr Calc Pharmacy 57.1 ml/min; Est GFR (African American) 100.8; Magnesium 1.9 mg/dl (1.8-2.4); Phosphorus 1.7 mg/dl (2.5-4.9); Potassium 3.2 mmol/L (3.5-5.1)
[2020-02-27] MEDS ORDERED: POTASSIUM PHOS 3 MMOL/1 ML INFUSION IV STA (07:54)
[2020-02-27] MEDS ORDERED: POTASSIUM PHOSPHATE 21 MMOL in SODIUM CHLORIDE 0.9% 500 ML IV ONE (08:00)
[2020-02-27] MEDS: POTASSIUM CHLORIDE 40 MEQ in D5W AND 1/2NSS 1,000 ML/1,000 ML BAG IV SCH ×2 (08:51→21:33)
[2020-02-27] MEDS: ASPIRIN 81 MG ECTAB PO SCH (08:58)
[2020-02-27] MEDS: FOLIC ACID 1 MG TAB PO SCH (08:58)
[2020-02-27] MEDS: CITALOPRAM 40 MG TAB PO SCH (08:58)
[2020-02-27] MEDS: HEPARIN SOD 5,000 UNIT/0.5 ML VIAL SC SCH ×2 (08:59→20:10)
[2020-02-27] MEDS: PANTOprazole 40 MG TAB PO SCH (08:59)
--- NOTE | 2020-02-27 12:20 | Hospitalist Progress Note ---
Date of Service February 27, 2020 Assessment & Plan (1) Abdominal pain: 79-year-old female was admitted on 20 Feb 2020 after c/o abdominal pain likely secondary to SBO and related abdominal abscesses. Abdominal pain, small bowel obstruction, abdominal abscesses: -Notable history of prior SBO, diverticulitis, pelvic abscesses and s/p sigmoid colostomy in Oct 2019. -08Apr abdomen wound grew resistant pseudomonas. -For this admit, CT a/p notes SBO, multifocal abscesses, ascites. -22May started vancomycin and Zosyn. Vancomycin discontinued 02/23/2020. -02/23 KUB overnight noted ileus -02/25- noted increase in WBC, will continue to monitor -Blood cultures NGTD. -On morphine for pain control -Switched to compazine for nausea control. -Advancing diet, tolerating well -Appreciate Gen Surgery consult: -Planned non-operative management. -Recommended NGT if worsens or continued vomiting. -Multiple small abscesses not thought to be amenable to CT drainage. -Continue antibiotics. -Advance diet as tolerated -Appreciate nutrition and wound care consult Urinary pressure: -Patient feels relatively acute pressure with urination but no pain. -UA unremarkable -CT a/p noted moderate bilateral hydroureteronephrosis likely secondary to pelvic abscesses. -Discussed case with urology who recommended watching Cr and voiding metrics. Bladder scan each shift and straight cath if PVR > 350 mL. -Currently improving Anemia: -Admit Hb 8.4, MCV 82. -History of transfusion after Oct 2019 surgery. Recent comparisons around Hb 10. -Received 1U irradiated leukoreduced pRBCs transfusion on 02/23/2020 for Hgb of 6.7 -No present evidence of active bleeding. -Iron studies suggestive of iron deficiency and/or anemia of chronic inflammation. -Presently on iron sucrose 300 mg IV daily x 3 doses. Hypokalemia, hypomagnesemia, hypophosphatemia: -replete as needed RLL metastatic lung adenocarcinoma (dx Jun 2019): -Mets to bone and previous left hip replacement. -Prior chemo and radiation. -Previously followed by Dr. Quintero of heme-onc. -Pending outpatient appointment with Dr. Judd. HTN, HLD: -Patient says she is not on medication for this. -On home aspirin. COPD: -Life-long current smoker. -Denies ever needing any respiratory inhalers. -Was noted to have a SpO2 drop to 88% after getting morphine. -Will monitor and provide supplemental NC oxygen prn goal > 92%. Hypothyroidism: -08May TSH 3.8. -On home synthroid. GERD: -On home pantoprazole. Depression/anxiety: -On home celexa. -Says her in December. -Will keep as needed lorazepam. PMH thrush: -Says she is prone to thrush after antibiotics, but not at present. -Started on prophylactic diflucan daily and will monitor. Code status: DNR/DNI (confirmed with patient on admit). Diet: Advancing DVT prophy: SCDs. Heparin BID. PT/OT: Ordered. Dispo: Admit to [facility]. Patient lives at home. Presently grandson lives with her. (2) SBO (small bowel obstruction): (3) Pelvic abscess: (4) Hydroureteronephrosis: (5) Anemia: (6) Hypokalemia: (7) Hypomagnesemia: (8) Adenocarcinoma of lung, stage 4: (9) Hypertension: (10) Hyperlipidemia: (11) COPD (chronic obstructive pulmonary disease): (12) Hypothyroidism: (13) GERD (gastroesophageal reflux disease): (14) Depression: Admission and Anticipated Discharge Date Admission Date: February 20, 2020 Subjective Pt Physical Exam Physical Exam: General: Alert, oriented, sitting on bed, thin Skin: No noted rashes or bruises Psych: Appropriate mood and affect Neuro: No gross deficits HEENT: NC/AT Chest: Nontender to palpation. CV: RRR, Normal s1, s2. No murmurs appreciated Resp: Breath sounds clear bilaterally, no increased effort of breathing Abdomen: Soft, tender diffusely, No guarding. Extremities: Trace edema lower extremities bilaterally. Results & Data Results & Data ([facility]) Vital Signs (Past 12 Hours) Vital Signs Temp Pulse Resp BP Pulse Ox 02/27/20 07:18 36.7 C 65 16 136/63 96 (1) Anemia Anemia type: other cause Other causes of anemia: other cause, not classified Qualified Code(s): D64.89 - Other specified anemias (2) Adenocarcinoma of lung, stage 4 Laterality: unspecified laterality Qualified Code(s): C34.90 - Malignant neoplasm of unspecified part of unspecified bronchus or lung (3) Hyperlipidemia Hyperlipidemia type: pure hypertriglyceridemia Qualified Code(s): E78.1 - Pure hyperglyceridemia (4) COPD (chronic obstructive pulmonary disease) COPD type: unspecified COPD Qualified Code(s): J44.9 - Chronic obstructive pulmonary disease, unspecified (5) Hypothyroidism Hypothyroidism type: acquired Qualified Code(s): E03.9 - Hypothyroidism, unspecified (6) GERD (gastroesophageal reflux disease) Esophagitis presence: without esophagitis Qualified Code(s): K21.9 - Gastro- esophageal reflux disease without esophagitis
--- NOTE | 2020-02-27 14:04 | Hospitalist Progress Note ---
Date of Service February 27, 2020 Assessment & Plan (1) Abdominal pain: related to SBO and abscesses - improving (2) SBO (small bowel obstruction): seems to have essentially resolved (3) Pelvic abscess: ongoing, concerning issue that this has been present for so long and/or recurred so many times -- continue zosyn for now, improving clinically. will want to coordinate with surgery - in regards to ?ongoing IV vs transition to PO such as cipro/flagyl. appears she will need a prolonged course and likely f/u imaging as outpt. (4) Hydroureteronephrosis: likely secondary to pelvic abscesses. creat stable though. follow (5) Anemia: overall has been stable. continue to follow periodically (6) Malnutrition: related to cancer, abscesses, overall frailty. encouraging that at least her intake is improving health information coder on consult (7) Hypokalemia: (8) Hypomagnesemia: (9) Adenocarcinoma of lung, stage 4: d/w dr sherwood - he will be seeing her in f/u (10) Hypertension: (11) Hyperlipidemia: (12) COPD (chronic obstructive pulmonary disease): no sob, breathing RA (13) Hypothyroidism: (14) GERD (gastroesophageal reflux disease): (15) Depression: (16) DVT prophylaxis: heparin SQ (17) Discharge planning issues: coordinate with surgery regarding abx and f/u. depending on comanagement thought processes and plan - ?possibly home in ~24-48 with very close f/u and multispecialty f/u appts (surgery, PCP, repeat CTs, oncology) Admission and Anticipated Discharge Date Admission Date: February 20, 2020 Subjective feeling better eating better - eating chicken and rice when i see her and while she hasn't eaten a lot, she's been able to eat and it seems to be sitting well Review of Systems Review of Systems: All systems reviewed & are unremarkable except as noted in HPI & below Physical Exam Physical Exam: gen aao pleasant nad heent nc at mmm breathing unlabored no accessory muscles good effort skin no rashes no pallor or icterus neuro no focal deficits Results & Data Results & Data ([facility]) Vital Signs (Past 12 Hours) Vital Signs Temp Pulse Resp BP Pulse Ox 02/27/20 07:18 98.1 F 65 16 136/63 96 PG Care Time/CCT Total # of Minutes Spent Total Time Spent with Patient: Total time spent is greater than 50% in coordination of care (as documented) at patient's floor/unit and/or counseling patient: Coding Level of Care Code 24174 Subseq Hosp Care Lvl 3 Diagnoses Abdominal pain R10.9 SBO (small bowel obstruction) K56.609 Pelvic abscess Hydroureteronephrosis N13.30 Anemia D64.89 Anemia type: other cause Other causes of anemia: other cause, not classified Malnutrition E46 Hypokalemia E87.6 Hypomagnesemia E83.42 Adenocarcinoma of lung, stage 4 C34.90 Laterality: unspecified laterality Hypertension I10 Hyperlipidemia E78.1 Hyperlipidemia type: pure hypertriglyceridemia COPD (chronic obstructive pulmonary disease) J44.9 COPD type: unspecified COPD Hypothyroidism E03.9 Hypothyroidism type: acquired GERD (gastroesophageal reflux disease) K21.9 Esophagitis presence: without esophagitis Depression F32.9 DVT prophylaxis Z29.9 Discharge planning issues Z02.9 (1) Anemia Anemia type: other cause Other causes of anemia: other cause, not classified Qualified Code(s): D64.89 - Other specified anemias (2) Adenocarcinoma of lung, stage 4 Laterality: unspecified laterality Qualified Code(s): C34.90 - Malignant neoplasm of unspecified part of unspecified bronchus or lung (3) Hyperlipidemia Hyperlipidemia type: pure hypertriglyceridemia Qualified Code(s): E78.1 - Pure hyperglyceridemia (4) COPD (chronic obstructive pulmonary disease) COPD type: unspecified COPD Qualified Code(s): J44.9 - Chronic obstructive pulmonary disease, unspecified (5) Hypothyroidism Hypothyroidism type: acquired Qualified Code(s): E03.9 - Hypothyroidism, unspecified (6) GERD (gastroesophageal reflux disease) Esophagitis presence: without esophagitis Qualified Code(s): K21.9 - Gastro- esophageal reflux disease without esophagitis
--- NOTE | 2020-02-27 14:54 | Surgery Progress Note ---
Date of Service February 27, 2020 Assessment & Plan (1) Small bowel obstruction: Likely secondary to adhesions, inflammation from intra-abdominal abscesses. Ostomy is functioning and tolerated advancement of diet until evening of 02/23/20 with nausea throughout the night, KUB 02/24/20 showing ileus 02/26/20 Still having intermittent nausea and emesis however colostomy functioning and abdomen is nondistended, soft Leukocytosis at 12.52K 02/27/20 Feeling good today, no further nausea or abdominal pain leukocytosis stable at 12.16K, afebrile colostomy functioning tolerated low fiber diet Plan: NO surgical issues at this time. Our services signing off. Recommend: Continue low fiber diet recommend boost/ensure supplementation BID in between meals now and at discharge to increase protein intake and nutritional status Will need f/u with colorectal surgeon Dr. Cai as well as her oncologist to determine length of ABX treatment (2) Abdominal pain: secondary to abscesses/ SBO pain resolved plan as above (3) Lung cancer: Stage 4 with bone mets on chemotherapy (4) Pelvic abscess: Multiple small abscesses not felt to be amenable to CT drainage. Continue IV antibiotics as they are small enough that they may resolve without requiring drainage. Leukocytosis stable Dr. Conrad has seen patient and agrees with above. Subjective feeling good today had regular food and ate most of her breakfast no further nausea no vomiting no abdominal pain today ostomy is functioning Physical Exam Constitutional: WD/WN, vitals as above no acute distress Respiratory: normal respiratory effort Gastrointestinal (Abdomen): Inspection/Auscultation: abdomen normal to inspection and normal bowel sounds; abdomen not distended Percussion/Palpation: abdomen soft; abdomen nontender, no guarding and abdomen not rigid LLQ ostomy with liquid dark stool present Skin: no rashes, warm and dry Results & Data Vital Signs (Past 12 Hours) Vital Signs Temp Pulse Resp BP Pulse Ox 02/27/20 07:18 36.7 C 65 16 136/63 96 Laboratory Results 02/27/20 02/27/20 Range/Units 05:09 05:09 WBC 12.16 H (4.8-10.8) K/uL RBC 3.54 L (4.2-5.4) M/uL Hgb 9.4 L (12.0-16.0) g/dL Hct 29.3 L (37-47) % MCV 82.8 (80-100) fL MCH 26.6 (25-34) pg MCHC 32.1 (32-36) g/dL RDW Std Deviation 62.3 H (36.4-46.3) fL RDW Coeff of Raymundo 21.0 H (11.5-14.5) % Plt Count 331 (130-400) K/uL MPV 8.4 (7.4-10.4) fL Immature Gran % (Auto) 0.4 % Neut % (Auto) 81.5 % Lymph % (Auto) 7.1 % Day % (Auto) 9.9 % Eos % (Auto) 0.9 % Baso % (Auto) 0.2 % Immature Gran # (Auto) 0.05 H (0.00-0.02) K/uL Neut # (Auto) 9.92 H (1.4-6.5) K/uL Lymph # (Auto) 0.86 L (1.2-3.4) K/uL Day # (Auto) 1.20 H (0.11-0.59) K/uL Eos # (Auto) 0.11 (0-0.5) K/uL Baso # (Auto) 0.02 (0-0.2) K/uL Anisocytosis Present Tear Drop Cells 1+ Ovalocytes 1+ Sodium 136 (136-145) mmol/L Potassium 3.2 L (3.5-5.1) mmol/L Chloride 104 (98-107) mmol/L Carbon Dioxide 27 (21-32) mmol/L Anion Gap 5.0 (3-11) BUN 3 L (7-18) mg/dl Creatinine 0.62 (0.6-1.2) mg/dl Est Cr Clr Drug Dosing 57.1 ml/min Est GFR ( Amer) 100.8 Est GFR (Non-Af Amer) 87.0 BUN/Creatinine Ratio 5.1 L (10-20) Glucose 81 (70-99) mg/dl Calcium 7.7 L (8.5-10.1) mg/dl Phosphorus 1.7 L (2.5-4.9) mg/dl Magnesium 1.9 (1.8-2.4) mg/dl
[2020-02-27] MEDS: MoRPHine SULFATE 4 MG/ML 1 ML CARP\\VIAL IV PRN (20:05)
[2020-02-27] MEDS: PROCHLORPERAZINE 5 MG in SYRINGE 4 ML IV PRN (20:16)
[2020-02-28] MEDS ORDERED: KETOROLAC TROMETHAMINE 15 MG/ML VIAL IV ONE (00:23)
[2020-02-28] MEDS ORDERED: ondansetron HCL 8 MG in DEXTROSE 5% 50 ML IV ONE (00:23)
[2020-02-28] MEDS ORDERED: ACETAMINOPHEN 65 ML IV PRN (00:30)
[2020-02-28] MEDS: PIPERACILLIN/TAZOBACTAM 3.375 GM in DEXTROSE 5% 100 ML IV SCH (04:12)
[2020-02-28] MEDS: LEVOTHYROXINE SODIUM 100 MCG TABLET PO SCH (05:26)
[2020-02-28 06:28] LABS: Basophils # (auto) 0.01 K/uL (0-0.2); Basophils % (auto) 0.1 %; Hematocrit (blood only) 28.1 % (37-47); Hemoglobin 8.8 g/dL (12.0-16.0); Immature Granulocytes # (auto) 0.03 K/uL (0.00-0.02); Immature Granulocytes % (auto) 0.3 %; Lymphocytes # (auto) 0.69 K/uL (1.2-3.4); Mean Corpuscular Hemoglobin 26.3 pg (25-34); Mean Corpuscular Hgb Conc 31.3 g/dL (32-36); Mean Corpuscular Volume 84.1 fL (80-100); Mean Platelet Volume 8.6 fL (7.4-10.4); Monocytes # (auto) 0.89 K/uL (0.11-0.59); Neutrophils % (auto) 82.6 %; Platelet Count 277 K/uL (130-400); RDW Coefficient of Variation 21.3 % (11.5-14.5); RDW Standard Deviation 65.6 fL (36.4-46.3); Red Blood Count 3.34 M/uL (4.2-5.4); White Blood Count 9.92 K/uL (4.8-10.8)
[2020-02-28 07:01] LABS: Alanine Aminotransferase < 6 U/L (12-78); Albumin Level 1.7 gm/dl (3.4-5.0); Aspartate Aminotransferase 12 U/L (15-37); BUN Creatinine Ratio 7.5 (10-20); Blood Urea Nitrogen 4 mg/dl (7-18); Calcium 7.6 mg/dl (8.5-10.1); Carbon Dioxide 26 mmol/L (21-32); Chloride 105 mmol/L (98-107); Creatinine Clr Calc Pharmacy 64.4 ml/min; Est GFR (African American) 104.9; Est GFR (Non-African American) 90.5; Glucose 113 mg/dl (70-99); Magnesium 1.6 mg/dl (1.8-2.4); Potassium 3.1 mmol/L (3.5-5.1); Sodium 137 mmol/L (136-145)
[2020-02-28 07:04] LABS: Albumin Globulin Ratio 0.4 (0.9-2); Alkaline Phosphatase 68 U/L (45-117); Bilirubin,Total 0.3 mg/dl (0.2-1); Phosphorus 1.9 mg/dl (2.5-4.9); Total Protein 5.7 gm/dl (6.4-8.2)
[2020-02-28 07:11] LABS: Anisocytosis Present
[2020-02-28] MEDS: PROCHLORPERAZINE 5 MG in SYRINGE 4 ML IV PRN ×2 (07:48→18:34)
[2020-02-28] MEDS: POTASSIUM CHLORIDE 40 MEQ in D5W AND 1/2NSS 1,000 ML/1,000 ML BAG IV SCH ×2 (09:08→20:28)
[2020-02-28] MEDS: CITALOPRAM 40 MG TAB PO SCH (09:48)
[2020-02-28] MEDS: FOLIC ACID 1 MG TAB PO SCH (09:48)
[2020-02-28] MEDS: PANTOprazole 40 MG TAB PO SCH (09:49)
[2020-02-28] MEDS: ASPIRIN 81 MG ECTAB PO SCH (09:49)
[2020-02-28] MEDS: HEPARIN SOD 5,000 UNIT/0.5 ML VIAL SC SCH ×2 (09:49→20:21)
--- NOTE | 2020-02-28 10:27 | Hospitalist Progress Note ---
Date of Service February 28, 2020 Assessment & Plan (1) Abdominal pain: 79-year-old female was admitted on 20 Feb 2020 after c/o abdominal pain likely secondary to SBO and related abdominal abscesses. Abdominal pain, small bowel obstruction, abdominal abscesses: -Notable history of prior SBO, diverticulitis, pelvic abscesses and s/p sigmoid colostomy in Oct 2019. -08Apr abdomen wound grew resistant pseudomonas. -For this admit, CT a/p notes SBO, multifocal abscesses, ascites. -22May started vancomycin and Zosyn. Vancomycin discontinued 02/23/2020. Zosyn discontinued 02/28/2020. Switched to PO cipro and Flagyl. Duration to be determined by oncologist and colorectal surgery. -02/23 KUB overnight noted ileus -02/25- noted increase in WBC, currently WNL -Blood cultures NGTD. -On morphine PRN for pain control, also has PRN tylenol and Toradol ordered -Switched to compazine for nausea control. -Advancing diet, tolerating well -Appreciate Gen Surgery consult: -Planned non-operative management. -Multiple small abscesses not thought to be amenable to CT drainage. -Continue antibiotics. -Advance diet as tolerated -SBO appears currently resolved -F/U with oncologist and colorectal surgeon to determine antibiotic course -Appreciate nutrition and wound care consult Urinary pressure: -Patient feels relatively acute pressure with urination but no pain. -UA unremarkable -CT a/p noted moderate bilateral hydroureteronephrosis likely secondary to pelvic abscesses. -Discussed case with urology who recommended watching Cr and voiding metrics. Bladder scan each shift and straight cath if PVR > 350 mL. -Currently improving Anemia: -Admit Hb 8.4, MCV 82. -History of transfusion after Oct 2019 surgery. Recent comparisons around Hb 10. -Received 1U irradiated leukoreduced pRBCs transfusion on 02/23/2020 for Hgb of 6.7 -No present evidence of active bleeding. -Iron studies suggestive of iron deficiency and/or anemia of chronic inflammation. -Presently on iron sucrose 300 mg IV daily x 3 doses. Hypokalemia, hypomagnesemia, hypophosphatemia: -replete as needed RLL metastatic lung adenocarcinoma (dx Jun 2019): -Mets to bone and previous left hip replacement. -Prior chemo and radiation. -Previously followed by Dr. Quintero of heme-onc. -Pending outpatient appointment with Dr. Judd. HTN, HLD: -Patient says she is not on medication for this. -On home aspirin. COPD: -Life-long current smoker. -Denies ever needing any respiratory inhalers. -Was noted to have a SpO2 drop to 88% after getting morphine. -Will monitor and provide supplemental NC oxygen prn goal > 92%. Hypothyroidism: -08May TSH 3.8. -On home synthroid. GERD: -On home pantoprazole. Depression/anxiety: -On home celexa. -Says her in December. -Will keep as needed lorazepam. PMH thrush: -Says she is prone to thrush after antibiotics, but not at present. -Started on prophylactic diflucan daily and will monitor. Code status: DNR/DNI (confirmed with patient on admit). Diet: Advancing DVT prophy: SCDs. Heparin BID. PT/OT: Ordered. Dispo: Admit to [facility]. Patient lives at home. Presently grandson lives with her. (2) SBO (small bowel obstruction): (3) Pelvic abscess: (4) Hydroureteronephrosis: (5) Anemia: (6) Hypokalemia: (7) Hypomagnesemia: (8) Adenocarcinoma of lung, stage 4: (9) Hypertension: (10) Hyperlipidemia: (11) COPD (chronic obstructive pulmonary disease): (12) Hypothyroidism: (13) GERD (gastroesophageal reflux disease): (14) Depression: Admission and Anticipated Discharge Date Admission Date: February 20, 2020 Supervising Physician Co-Signing Physician Notes I personally examined the patient and verified all thorpe points of history and exam, discussed case, and agree with decision making with Dr Paul. feeling well tolerating diet tolerating PO abx - feels like she is getting thrush - notes shes' struggled with that off and on most of the year w abx. mucousy discharge from rectum - but after discussion w surgery this is a fairly frequent occurrence distal to ostomies vitals noted nad heent nc at generally moist, sides of tongue somewhat bruised appearing (?biting) no overt plaques. breathing unlabored no accessory muscles. abd soft and nearly nontender - Abdominal pain due to abscesses no role for drainage, tolerating advanced diet, tolerating PO abx - concern on thrush - not visible, but given that it feels quite like what she's felt before, she's worried how it will get in the way of nutrition, and treatment fairly low risk - will treat empirically - severe protein calorie malnutrition - fortunately PO intake good now. would rec protein shakes at home as well. see above - anything that could adversely impact nutritional status is of huge concern. nutritional status relates back to cancer and essentially chronic (?recurrent vs chronic but functionally chronic) abdominal infection ongoing supportive care and med management otherwise/otherwise as above Subjective Pt seen this AM. States she had some pain overnight and feels like the Tordal and Tylenol helped. Does not want morphine anymore. Also notes that overnight she passed through rectum some thick, white, foul smelling discharge. Leonardo any nausea or vomiting, or abdominal pain. Agreed to try Flagyl once more. Review of Systems Review of Systems: All systems reviewed & are unremarkable except as noted in Subjective Physical Exam Physical Exam: General: Alert, oriented, laying in bed, thin Skin: No noted rashes or bruises Psych: Appropriate mood and affect Neuro: No gross deficits HEENT: NC/AT Chest: Nontender to palpation. CV: RRR, Normal s1, s2. No murmurs appreciated Resp: Breath sounds clear bilaterally, no increased effort of breathing Abdomen: Soft, tender in RUQ, No guarding. Colostomy bag present. Rectal Exam: No noted discharge, bruising or redness Extremities: Trace edema lower extremities bilaterally Results & Data Results & Data ([facility]) Vital Signs (Past 12 Hours) Vital Signs Temp Pulse Resp BP BP Pulse Ox 02/28/20 07:06 36.5 C 59 L 16 138/67 97 02/27/20 23:34 36.7 C 72 14 151/73 H 95 Resident Activity Tracking Resident Involvement: Resident Care Provided Care Provided: Adult Hospital Medicine (1) Adenocarcinoma of lung, stage 4 Laterality: unspecified laterality Qualified Code(s): C34.90 - Malignant neoplasm of unspecified part of unspecified bronchus or lung (2) Anemia Anemia type: other cause Other causes of anemia: other cause, not classified Qualified Code(s): D64.89 - Other specified anemias (3) Hyperlipidemia Hyperlipidemia type: pure hypertriglyceridemia Qualified Code(s): E78.1 - Pure hyperglyceridemia (4) Hypothyroidism Hypothyroidism type: acquired Qualified Code(s): E03.9 - Hypothyroidism, unspecified (5) COPD (chronic obstructive pulmonary disease) COPD type: unspecified COPD Qualified Code(s): J44.9 - Chronic obstructive pulmonary disease, unspecified (6) GERD (gastroesophageal reflux disease) Esophagitis presence: without esophagitis Qualified Code(s): K21.9 - Gastro- esophageal reflux disease without esophagitis
[2020-02-28] MEDS: CIPROFLOXACIN 250 MG TAB PO SCH ×2 (10:48→20:04)
[2020-02-28] MEDS ORDERED: POTASSIUM PHOS 3 MMOL/1 ML INFUSION IV STA (10:59)
[2020-02-28] MEDS ORDERED: POTASSIUM PHOSPHATE 21 MMOL in SODIUM CHLORIDE 0.9% 500 ML IV ONE (11:30)
[2020-02-28] MEDS: MAGNESIUM OXIDE 400 MG TAB PO SCH ×2 (12:49→20:06)
[2020-02-28] MEDS ORDERED: KETOROLAC TROMETHAMINE 15 MG/ML VIAL IV PRN (12:52)
[2020-02-28] MEDS: metroNIDAZOLE 500 MG TAB PO SCH ×2 (13:49→20:04)
[2020-02-28] MEDS ORDERED: NYSTATIN 30 ML, DEXAMETHASONE CONC 3.75 MG, DiphenhydrAMINE Syrup 300 MG, ORA-SWEET SYR... PO PRN (13:52)
--- NOTE | 2020-02-28 16:55 | Billing Data ---
Date of Service February 28, 2020 Coding Level of Care Code 47230 Subseq Hosp Care Lvl 3
[2020-02-28] MEDS ORDERED: FLUCONAZOLE 100 MG TAB PO ONE (17:40)
[2020-02-28] MEDS: NYSTATIN SUSP 500,000 U/5 ML UDC PO SCH ×3 (18:34→20:20)
[2020-02-28] MEDS: LORazepam 0.5 MG TAB PO PRN (23:33)
[2020-02-29] MEDS: LEVOTHYROXINE SODIUM 100 MCG TABLET PO SCH (05:52)
[2020-02-29 06:08] LABS: Basophils # (auto) 0.02 K/uL (0-0.2); Basophils % (auto) 0.2 %; Eosinophils # (auto) 0.18 K/uL (0-0.5); Eosinophils % (auto) 2.1 %; Hematocrit (blood only) 26.9 % (37-47); Hemoglobin 8.3 g/dL (12.0-16.0); Immature Granulocytes # (auto) 0.03 K/uL (0.00-0.02); Immature Granulocytes % (auto) 0.4 %; Lymphocytes # (auto) 0.77 K/uL (1.2-3.4); Mean Corpuscular Hemoglobin 26.2 pg (25-34); Mean Corpuscular Hgb Conc 30.9 g/dL (32-36); Mean Corpuscular Volume 84.9 fL (80-100); Mean Platelet Volume 8.4 fL (7.4-10.4); Monocytes # (auto) 0.88 K/uL (0.11-0.59); Monocytes % (auto) 10.3 %; Neutrophils # (auto) 6.64 K/uL (1.4-6.5); Platelet Count 233 K/uL (130-400); RDW Coefficient of Variation 21.4 % (11.5-14.5); RDW Standard Deviation 66.4 fL (36.4-46.3); Red Blood Count 3.17 M/uL (4.2-5.4); White Blood Count 8.52 K/uL (4.8-10.8)
[2020-02-29 06:37] LABS: Anisocytosis Present; Hypochromasia Present
[2020-02-29 06:40] LABS: Alanine Aminotransferase < 6 U/L (12-78); Albumin Level 1.7 gm/dl (3.4-5.0); Aspartate Aminotransferase 10 U/L (15-37); Blood Urea Nitrogen 4 mg/dl (7-18); Calcium 7.6 mg/dl (8.5-10.1); Carbon Dioxide 26 mmol/L (21-32); Chloride 109 mmol/L (98-107); Creatinine Clr Calc Pharmacy 70.8 ml/min; Est GFR (African American) 108.2; Est GFR (Non-African American) 93.4; Glucose 93 mg/dl (70-99); Magnesium 1.4 mg/dl (1.8-2.4); Potassium 3.4 mmol/L (3.5-5.1); Sodium 139 mmol/L (136-145)
[2020-02-29 07:05] LABS: Albumin Globulin Ratio 0.5 (0.9-2); Alkaline Phosphatase 63 U/L (45-117); Bilirubin,Total 0.3 mg/dl (0.2-1); Globulin 3.6 gm/dl (2.5-4.0); Phosphorus 1.5 mg/dl (2.5-4.9); Total Protein 5.3 gm/dl (6.4-8.2)
[2020-02-29] MEDS ORDERED: POTASSIUM PHOS 3 MMOL/1 ML INFUSION IV STA (07:28)
[2020-02-29] MEDS ORDERED: MAGNESIUM SULFATE / WTR 40 GM/1,000 ML BAG IV SCH (07:30)
--- NOTE | 2020-02-29 07:38 | Electrocardiogram Report ---
Test Reason : Blood Pressure : / mmHG Vent. Rate : 069 BPM Atrial Rate : 069 BPM P-R Int : 134 ms QRS Dur : 080 ms QT Int : 406 ms P-R-T Axes : 048 011 063 degrees QTc Int : 435 ms Normal sinus rhythm Low voltage QRS Septal infarct (cited on or before 28-FEB-2020) Abnormal ECG When compared with ECG of 20-FEB-2020 13:28, No significant change was found Confirmed by Johnny Alejandro ([id number]) on 02/29/2020 7:38:17 AM Referred By: REFERRED SELF Confirmed By:Johnny Alejandro
[2020-02-29] MEDS ORDERED: POTASSIUM PHOSPHATE 30 MMOL in SODIUM CHLORIDE 0.9% 500 ML IV ONE (08:00)
[2020-02-29] MEDS: MAGNESIUM SULFATE / D5W 1 GM/100 ML BAG IV SCH ×4 (08:03→11:09)
[2020-02-29] MEDS: MAGNESIUM OXIDE 400 MG TAB PO SCH (08:15)
[2020-02-29] MEDS: CITALOPRAM 40 MG TAB PO SCH (08:15)
[2020-02-29] MEDS: ASPIRIN 81 MG ECTAB PO SCH (08:15)
[2020-02-29] MEDS: metroNIDAZOLE 500 MG TAB PO SCH ×2 (08:15→14:04)
[2020-02-29] MEDS: CIPROFLOXACIN 250 MG TAB PO SCH (08:15)
[2020-02-29] MEDS: PANTOprazole 40 MG TAB PO SCH (08:15)
[2020-02-29] MEDS: FOLIC ACID 1 MG TAB PO SCH (08:15)
[2020-02-29] MEDS: HEPARIN SOD 5,000 UNIT/0.5 ML VIAL SC SCH (08:16)
[2020-02-29] MEDS ORDERED: FLUCONAZOLE 100 MG TAB PO SCH (09:00)
[2020-02-29] MEDS: NYSTATIN SUSP 500,000 U/5 ML UDC PO SCH ×2 (09:04→13:19)
[2020-02-29] MEDS: HEPARIN 100 UNIT/ML 5ML FLUSH FLUSH PRN (13:17)
--- NOTE | 2020-02-29 13:41 | Discharge Summary ---
Date of Service February 29, 2020 Admission HPI Per Admitting Provider 79-year-old female states that she has been having worsening abdominal pain over the past 24 hours. She has a notable history of complicated diverticulitis leading to a sigmoid colostomy back in October 2019. She also was treated for intra-abdominal abscesses at that time. 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 Most recently, along with her abdominal pain she had multiple episodes of non-bloody emesis this morning. Says her ostomy output has been normal. Decreased p.o. intake for past couple of days. Says her temperature at home was 99.9. Denies any chest pain, shortness of breath, or extremity pains. No other acute concerns raised. However, on review of systems, she says it feels like pressure when she has to urinate. Denies dysuria. - Past medical history includes metastatic lung adenocarcinoma, anxiety, arthritis, cataracts, depression, esophageal dyskinesia, fatigue, gastritis, triglyceridemia, GERD, diverticulitis, hyperlipidemia, hypothyroidism, IBS, osteoarthritis and osteopenia, sialoadenitis, thrush, COPD - Surgical history includes cataracts, D&C, cervical vasectomy, rotator cuff, C- section, left hip replacement - Social history includes current smoker since age 21. Denies alcohol use. Some THC use. Lives at home alone. Admission Exam Per Admitting Provider GENERAL: Awake, alert, cachectic, appears attached fatigued, but does not appear in immediate distress. HENT: Normocephalic, atraumatic. Orophar EYES: Normal conjunctiva. Sclera non-icteric. NECK: Inspection normal. Supple and full ROM. No nuchal rigidity. CARDIAC: +S1S2 RRR, no murmurs. Left upper chest Mediport accessed. RESPIRATORY: Clear to auscultation. No wheezes or rales. Normal respiratory effort. GI: +BS, soft, non-distended. Positive generalized tenderness to palpation with mild guarding. Left-sided ostomy in place with stool in the bag. EXTREMITIES: No pedal edema or calf tenderness. Moving all extremities naturally and easily. NEURO: No gross neuro deficits. Normal, relatively upbeat mood. Principal Diagnosis intraabdominal abscesses Discharge Exam General: Alert, oriented, laying in bed, thin Skin: No noted rashes or bruises Psych: Appropriate mood and affect Neuro: No gross deficits HEENT: NC/AT Chest: Nontender to palpation. CV: RRR, Normal s1, s2. No murmurs appreciated Resp: Breath sounds clear bilaterally, no increased effort of breathing Abdomen: Soft, tender in RUQ, No guarding. Colostomy bag present. Rectal Exam: No noted discharge, bruising or redness Extremities: Trace edema lower extremities bilaterally Discharge Data Allergies Allergy/AdvReac Type Severity Reaction Status Date / Time nickel Allergy Intermediate Rash Verified 02/20/20 15:08 venlafaxine AdvReac Intermediate HTN Verified 02/20/20 15:08 clarithromycin AdvReac Mild N/V Verified 02/20/20 15:08 codeine AdvReac Mild UPSET Verified 02/20/20 15:08 STOMACH hydrocodone AdvReac Mild N/V Verified 02/20/20 15:08 metronidazole [From Flagyl] AdvReac Mild Gastrointestinal Verified 02/20/20 15:08 Upset Consultations 02/20/20 15:32 ED Decision to Admit Stat 02/20/20 17:18 Consult General Surgery Routine Ordered Studies 02/20/20 13:44 CT abd pelvis IV con only Stat Hospital Course (1) Abdominal pain: 79-year-old female was admitted on 20 Feb 2020 after c/o abdominal pain secondary to SBO and related abdominal abscesses. Abdominal pain, small bowel obstruction, abdominal abscesses: -Notable history of prior SBO, diverticulitis, pelvic abscesses and s/p sigmoid colostomy in Oct 2019. -08Apr abdomen wound grew resistant pseudomonas. -For this admit, CT a/p notes SBO, multifocal abscesses, ascites. -22May started vancomycin and Zosyn. Vancomycin discontinued 02/23/2020. Zosyn discontinued 02/28/2020. Switched to PO cipro and Flagyl. Discharged with such for 14 days. Duration to be determined by oncologist and colorectal surgery. -02/23 KUB overnight noted ileus -02/25- noted increase in WBC, currently WNL -Blood cultures NGTD. -On morphine PRN for pain control, also has PRN tylenol and Toradol ordered. Discharged with oxycodone and toradol. -Switched to compazine for nausea control. Discharged with compazine. -Advancing diet, tolerating well -Appreciate Gen Surgery consult: -Planned non-operative management. -Multiple small abscesses not thought to be amenable to CT drainage. -Continue antibiotics. -Advance diet as tolerated -SBO appears currently resolved on discharge. -F/U with oncologist and colorectal surgeon to determine antibiotic course -Appreciate nutrition (1700 Calories daily) and wound care consult Urinary pressure: -Patient feels relatively acute pressure with urination but no pain. -UA unremarkable -CT a/p noted moderate bilateral hydroureteronephrosis likely secondary to pelvic abscesses. -Discussed case with urology who recommended watching Cr and voiding metrics. Bladder scan each shift and straight cath if PVR > 350 mL. -Improved on discharge. Anemia: -Admit Hb 8.4, MCV 82. -History of transfusion after Oct 2019 surgery. Recent comparisons around Hb 10. -Received 1U irradiated leukoreduced pRBCs transfusion on 02/23/2020 for Hgb of 6.7 -No present evidence of active bleeding. -Iron studies suggestive of iron deficiency and/or anemia of chronic inflammation. -Received iron sucrose 300 mg IV daily x 3 doses. Hypokalemia, hypomagnesemia, hypophosphatemia: -repleted as needed. Discharged with magnesium oxide, phosphate and KCl PO supplements. RLL metastatic lung adenocarcinoma (dx Jun 2019): -Mets to bone and previous left hip replacement. -Prior chemo and radiation. -Previously followed by Dr. Quintero of heme-onc. -Pending outpatient appointment with Dr. Judd. HTN, HLD: -Patient says she is not on medication for this. -On home aspirin. COPD: -Life-long current smoker. -Denies ever needing any respiratory inhalers. -Was noted to have a SpO2 drop to 88% after getting morphine. -stable on discharge Hypothyroidism: -08May TSH 3.8. -On home synthroid. GERD: -On home pantoprazole. Depression/anxiety: -On home celexa and lorazepam -Says her in December. PMH thrush: -Says she is prone to thrush after antibiotics, but not at present. -Started on prophylactic diflucan daily and will monitor. -discharged with 4 more days (2) SBO (small bowel obstruction): (3) Pelvic abscess: (4) Hydroureteronephrosis: (5) Anemia: (6) Hypokalemia: (7) Hypomagnesemia: (8) Adenocarcinoma of lung, stage 4: (9) Hypertension: (10) Hyperlipidemia: (11) COPD (chronic obstructive pulmonary disease): (12) Hypothyroidism: (13) GERD (gastroesophageal reflux disease): (14) Depression: Total Time Total Time Spent Total Time Spent (In Minutes): >30 Discharge Plan Discharge Items Patient Disposition: Home - Self-Care Reason For Visit: SMALL BOWEL OBSTRUCTION,ABDOMINAL ABSCESSES Discharge Diagnosis: Small bowel obstruction, abdominal abscesses Activity: Per Instructions section Non-emergency contact: Primary Care Provider, Surgeon and Oncologist Call non-emergency contact if: your symptoms worsen and you have a fever Follow-up/Referrals: Zion Bartholomew MD [Primary Care Provider] - Diet: Regular Addtl Attending Provider Instructions: Ms. Burgos, you are being discharged home. Please continue to take the antibiotics metronidazole three times a day and ciprofloxacin two times a day. You will likely need to be on them for a very long time (possibly indefinitely). You are being discharged with enough for 14 days but it is VERY IMPORTANT that you follow up with your colorectal surgeon and oncologist so you can be prescribed more. They also need to follow up with you as you will need a CT scan in a few days to determine progress. For pain control, continue taking the oxycodone and the toradol that seemed to help you while in the hospital. Again, follow up with your primary care provider for more prescriptions. Also, to help with nutrition, continue taking the magnesium oxide, potassium and phosphorus you are being discharged with. Continue to try to get as many calories in as discussed with Dr. Domínguez and nutrition, 1700 a day. Use the compazine you are being discharged with as needed for any nausea. Follow up with your primary care doctor, your oncologist and your surgeon as soon as possible after discharge. If your symptoms return, please do not hesitate to come to the emergency room. It was a pleasure taking care of you during your stay here! Pending Studies at Discharge: No Stand-Alone Forms: [employer], Smoking Cessation Medications and DC Order Prescriptions: New fluconazole 100 mg Tablet 100 mg PO QAM 14 Days Qty: 14 RF: 0 metronidazole 500 mg Tablet 500 mg PO TID 14 Days Qty: 42 RF: 0 ciprofloxacin HCl 250 mg Tablet 750 mg PO Q12 14 Days Qty: 84 RF: 0 magnesium oxide 400 mg (241.3 mg magnesium) Tablet 400 mg PO BID 14 Days Qty: 28 RF: 0 potassium chloride 20 mEq tablet extended release 20 meq PO BID 14 Days Qty: 28 RF: 0 Phosphorous 250 mg tablet 1 tab PO BID 14 Days Qty: 28 RF: 0 ketorolac 10 mg tablet 10 mg PO Q8H PRN (Reason: pain) 7 Days Qty: 21 RF: 0 prochlorperazine maleate [Compazine] 5 mg tablet 5 mg PO QID PRN (Reason: anxiety) 14 Days Qty: 56 RF: 0 Continued levothyroxine [Synthroid] 100 mcg tablet 100 mcg PO QAM Qty: 90 RF: 3 oxycodone 5 mg tablet 5 mg PO Q6H PRN (Reason: pain) Qty: 40 RF: 0 omega-3 fatty acids 1,000 mg capsule 1,000 mg PO DAILY Qty: 30 RF: 2 vitamin E (dl, acetate) 100 unit capsule 100 units PO DAILY Qty: 30 RF: 2 citalopram [Celexa] 40 mg tablet 40 mg PO QAM Qty: 90 RF: 3 lorazepam 0.5 mg tablet 0.5 mg PO DAILY PRN (Reason: anxiety) Qty: 30 RF: 1 folic acid 1 mg tablet 1 mg PO DIRECTED RF: 0 pantoprazole [Protonix] 40 mg tablet,delayed release (DR/EC) 40 mg PO QAM RF: 0 aspirin [Aspir-81] 81 mg Tablet,Delayed Release (Dr/Ec) 81 mg PO QAM RF: 0 Discontinued ondansetron HCl [Zofran] 4 mg tablet 4 mg PO TID PRN (Reason: nausea and vomiting) RF: 0 Discharge Orders: Discharge Order (Routine); Ordered 02/29/20 Ordered By: Elicia Paul Admission Data Admit Date/Time: 02/20/20 17:18 Attending Provider: Armani Domínguez Admit Provider: Thierno Brody Primary Care Provider: Zion Bartholomew Other Providers: Talita Lin ; Gabrielle Moon ; Shawn Abad Other Interventions: Discharge Summary Assessment (RN) Last Done: 02/29/20 13:20 Supervising Physician Co-Signing Physician Notes I personally examined the patient and verified all thorpe points of history and e xam, discussed case, and agree with decision making with Dr Paul. feels up to going home. standing in room eating applesauce when i come in! discussed open-ended course of abx and high probability of needing repeat CT to dictate total course, discussed nutrition in detail explaining calorie goals, critical importance of meeting said goals, and tools such as logging calories or apps that can help logging calories be easier to do. vitals noted nad heent nc at mmm braething unlabored no accessory muscles good effort skin no rashes no pallor or icterus neuro no focal deficits. thin and frail. - Abdominal pain due to abscesses no role for drainage, tolerating diet, tolerating PO abx -- stable for home - for now Rx'd for 2wks of abx, but explained to pt that with this having been a recurrent (?chronic and ongoing) problem, that truly course of abx will have to be open ended and would anticipate a repeat CT in ~10 days or so to determine improvement (unless clinical eval leaves no doubts or concerns obviating the need for f/u imaging, but this is unlikely) - concern on thrush - not visible, but given that it feels quite like what she's felt before, she's worried how it will get in the way of nutrition, and treatment fairly low risk - will treat empirically - severe protein calorie malnutrition - fortunately PO intake good now. see above -discussed critical importance of nutrition in her care, and that meeting daily calorie goals is of paramount concern (and that while meeting goals with "perfect foods" would be preferred, it is far more important to meet goals even with "bad for you foods" than to come up far short on goals only eating "good" foods. gave tips on meeting goals (protein shakes or making her own high calorie smoothies, ice cream, apps such as "lose it" that can help track calories very easily - emphasized that "lose it" being a weight loss gwen will chastize her for things that are calorie dense - but that those are actually in line with her goals) stable for home Resident Activity Tracking Resident Involvement: Resident Care Provided Care Provided: Adult Hospital Medicine
--- NOTE | 2020-02-29 13:51 | Billing Data ---
Date of Service February 29, 2020 Coding Level of Care Code D/C Day Management >30 mins
== END 2020-02-29 14:45 | disposition home or self-care (01) | DRG 388 ==
LOC: ED 13:07 → SUATTDRO 17:18 → 3N 17:18 → 3E 02-22 17:41

== ENCOUNTER 2020-03-06 16:04 | Inpatient (IN) ==
[2020-03-06] MEDS ORDERED: SODIUM CHLORIDE 0.9% 1000ML 1,000 ML IV ONE (16:54)
[2020-03-06] MEDS ORDERED: MoRPHine SULFATE 4 MG/ML 1 ML CARP\\VIAL IV STA (16:54)
--- NOTE | 2020-03-06 17:01 | Emergency Department Note ---
Impression & Plan Abdominal pain, Abdominal abscess, Vomiting, Hypomagnesemia, Acute hypokalemia ED Provider Note NAME: DAVID RODRIGUEZ AGE: 79 SEX: F : 1940 ARRIVES VIA: Walk-In INFORMANT: Patient ED PROVIDER(S): Armani Hough DO CHIEF COMPLAINT: Lower abdominal pain HPI: Patient is a 79-year-old female with a past medical history of metastatic cancer with a colostomy who presents to the ER for lower abdominal pain. She notes she started with nausea yesterday. She tried to eat this morning and vomited. Since then she has been having pain about a 4 out of 10 waxing and waning in intensity up to a 10 out of 10. She notes nearly no output of stool in her ostomy bag. She has vomited twice. Unable to keep anything down. No dysuria urgency or frequency. Previous appendectomy. Does have previous bowel obstructions. Denies any cough fevers shortness of breath or chest pain. Notes she still is receiving chemotherapy with her last dose this week about 2 days ago. ROS: See above HPI for pertinent positives & negatives. A total of 10 systems reviewed and were otherwise negative. PAST MEDICAL HISTORY:See Below PAST SURGICAL HISTORY:See Below FAMILY HISTORY:See Below SOCIAL HISTORY:See Below HOME MEDICATIONS:See Below ALLERGIES:See Below VITALS:See Below PHYSICAL EXAMINATION: GENERAL: Sitting up in bed, chronically ill-appearing, disheveled, cachectic EYE EXAM: normal conjunctiva. OROPHARYNX: tongue normal and mucous membranes are dry NECK: supple, no nuchal rigidity, no adenopathy, non-tender CHEST: Port in left mid chest LUNGS: Clear to auscultation. Normal chest wall mechanics HEART: no murmurs, S1 normal and S2 normal ABDOMEN: Old incisions midline infraumbilically with an ostomy in left lower quadrant with diffuse tenderness throughout lower abdomen BACK: Back is symmetrical on inspection and there is no deformity, no midline tenderness, no CVA tenderness. SKIN: no rashes and no bruising UPPER EXTREMITIES: upper extremities are grossly normal. LOWER EXTREMITIES: No pitting edema. NEURO EXAM: Normal sensorium, cranial nerves II-XII grossly intact, normal speech, no gross weakness of arms, no gross weakness of legs. MEDICAL DECISION MAKING: Patient is a 79-year-old female who presents the ER for weakness and lower abdominal pain associate with nausea vomiting. IV was established blood work was obtained. She is acutely tender in the lower belly. Labs show a mild leukocytosis 10.9 thousand. Mild anemia 9.4. BMP with a hypokalemia. This was repleted with IV potassium. Magnesium was low at 1.4. LFTs bilirubin was unremarkable. Lipase was normal. CT abdomen pelvis shows multiple presacral and pelvic abdominal abscesses in combination with large amount of constipation. Patient was updated in regards to his findings. She did continue to vomit in the ER. Given multiple doses Zofran fluids and she was given IV antibiotics. She was updated bedside. Discussed with hospitalist for further evaluation. Triage Nursing notes reviewed. Prior medical records reviewed Vital Signs: reviewed and remarkable for no significant abnormalities Differential diagnosis: Differential diagnoses includes but is not limited to gastritis, peptic ulcer disease, GERD, gallbladder disease, pancreatitis, small bowel obstruction, acute coronary syndrome, pericarditis, ischemic bowel, irritable bowel disease, irritable bowel syndrome, appendicitis, diverticulitis, malignancy, hernia, urinary tract infection, torsion, perforation, trauma, infectious. ER treatment provided: See below Diagnostics interpreted by me: ECG: none Cardiac Monitoring: An order was placed for continuous cardiac monitoring. The monitor shows a rate of 82 with sinus rhythm. Laboratory studies: As stated above and show below. Imaging studies: CT abdomen pelvis shows large amount of stool burden in combination with no high-grade obstruction and presacral and pelvic abscesses unchanged from previous. Consultation(s): Discussed with Dr. Hollis from the hospitalist ED COURSE: Procedures: none Critical Care: None Past Med/Surg History Social History Preferred Language: Guyanese Communication Ability: Effective Visual Impairment: No Limitations Hearing Ability: Normal Mid Teacher Required: No Beliefs That Will Affect Care: None marital status: Unknown Current Living Situation: Family Current Living Situation Comment: lives with grandson current occupational status: retired current occupation: worked at [employer]) other: 1 daughter Feels Safe at Home: Yes Safety Concerns: Feels Safe At This Time Smoking Status: Current every day smoker Tobacco Type: cigarettes ; Age Started Using Tobacco: 21 ; packs per day: 0.5 ; Cigarettes Per Day: 6 ; Second Hand Exposure: No ; Hx Alcohol Use: No Hx Substance Use: No Childhood Exposure to Second-Hand Smoke: Yes (both parents) caffeine: Yes Dental Care, Regularly: No Seatbelt Use: always Allergies Allergies Allergy/AdvReac Type Severity Reaction Status Date / Time nickel Allergy Intermediate Rash Verified 03/06/20 16:49 venlafaxine AdvReac Intermediate HTN Verified 03/06/20 16:49 clarithromycin AdvReac Mild N/V Verified 03/06/20 16:49 codeine AdvReac Mild UPSET Verified 03/06/20 16:49 STOMACH hydrocodone AdvReac Mild N/V Verified 03/06/20 16:49 metronidazole [From Flagyl] AdvReac Mild Gastrointestinal Verified 03/06/20 16:49 Upset Home Meds Home Medications Medication Instructions Recorded Confirmed folic acid 1 mg PO DIRECTED 08/04/19 03/06/20 pantoprazole [Protonix] 40 mg PO QAM 08/30/19 03/06/20 aspirin [Aspir-81] 81 mg PO QAM 09/20/19 03/06/20 torsemide 10 mg PO Q OTHER DAY PRN 03/06/20 03/06/20 Previous Rx's Medication Instructions Recorded levothyroxine 100 mcg tablet 100 mcg PO QAM #90 tab 09/12/19 omega-3 fatty acids 1,000 mg 1,000 mg PO DAILY #30 cap 10/21/19 capsule vitamin E (dl, acetate) 100 unit 100 units PO DAILY #30 cap 10/21/19 capsule citalopram 40 mg tablet 40 mg PO QAM #90 tab 01/09/20 lorazepam 0.5 mg tablet 0.5 mg PO DAILY PRN #30 tab 01/14/20 ciprofloxacin HCl 500 mg PO BID #28 tab 02/29/20 magnesium oxide 400 mg PO BID #20 tab 02/29/20 metronidazole [Flagyl] 500 mg PO TID #42 tab 02/29/20 oxycodone 5 mg PO Q6H PRN #14 tab 02/29/20 prochlorperazine maleate 5 mg PO TID PRN #20 tab 02/29/20 [Compazine] sod phos di, mono-K phos mono 1 tab PO DAILY #3 tab 02/29/20 [Phosphorous] fluconazole 100 mg tablet 100 mg PO Q3D #20 tab 03/02/20 Results & Data (ED) Vital Signs Vital Signs - 24 hr 03/06/20 16:08 03/06/20 16:50 03/06/20 16:55 Temperature 37.2 C Temperature Source Oral Pulse Rate 95 H 81 84 Pulse Rate [Apical] 79 Pulse Rate from SpO2 Sensor 80 84 Pulse Rhythm Regular Pulse Rhythm [Apical] Regular Pulse Strength [Apical] Normal Respiratory Rate 20 14 21 Respiratory Effort / Characteristics Non-Labored Spontaneous Respiratory Depth Normal Respiratory Pattern Regular Blood Pressure 130/60 128/69 Blood Pressure [Right Arm] 142/71 H Blood Pressure Mean 83 81 Blood Pressure Mean [Right Arm] 94 Blood Pressure Position Sitting Blood Pressure Position [Right Arm] Sitting Pulse Oximetry 94 95 97 Oxygen Delivery Method Room Air Sepsis Recent Fever Within 48 Hours No Sepsis New/Unexplained Change in Mental Status No Sepsis Action Taken by Nursing No Action Required 03/06/20 17:00 03/06/20 17:01 03/06/20 17:30 Temperature Temperature Source Pulse Rate 81 89 Pulse Rate [Apical] Pulse Rate from SpO2 Sensor 81 89 Pulse Rhythm Pulse Rhythm [Apical] Pulse Strength [Apical] Respiratory Rate 20 14 20 Respiratory Effort / Characteristics Respiratory Depth Respiratory Pattern Blood Pressure 142/71 H 163/75 H Blood Pressure [Right Arm] Blood Pressure Mean 101 99 Blood Pressure Mean [Right Arm] Blood Pressure Position Blood Pressure Position [Right Arm] Pulse Oximetry 98 94 Oxygen Delivery Method Sepsis Recent Fever Within 48 Hours Sepsis New/Unexplained Change in Mental Status Sepsis Action Taken by Nursing 03/06/20 17:31 03/06/20 17:51 03/06/20 18:00 Temperature Temperature Source Pulse Rate 88 79 81 Pulse Rate [Apical] Pulse Rate from SpO2 Sensor 88 79 81 Pulse Rhythm Pulse Rhythm [Apical] Pulse Strength [Apical] Respiratory Rate 15 17 Respiratory Effort / Characteristics Respiratory Depth Respiratory Pattern Blood Pressure 131/65 137/64 Blood Pressure [Right Arm] Blood Pressure Mean 73 88 Blood Pressure Mean [Right Arm] Blood Pressure Position Blood Pressure Position [Right Arm] Pulse Oximetry 92 97 94 Oxygen Delivery Method Sepsis Recent Fever Within 48 Hours Sepsis New/Unexplained Change in Mental Status Sepsis Action Taken by Nursing 03/06/20 18:01 03/06/20 18:30 03/06/20 18:31 Temperature Temperature Source Pulse Rate 82 86 83 Pulse Rate [Apical] Pulse Rate from SpO2 Sensor 82 86 83 Pulse Rhythm Pulse Rhythm [Apical] Pulse Strength [Apical] Respiratory Rate 14 17 Respiratory Effort / Characteristics Respiratory Depth Respiratory Pattern Blood Pressure 131/68 Blood Pressure [Right Arm] Blood Pressure Mean 89 Blood Pressure Mean [Right Arm] Blood Pressure Position Blood Pressure Position [Right Arm] Pulse Oximetry 92 91 91 Oxygen Delivery Method Sepsis Recent Fever Within 48 Hours Sepsis New/Unexplained Change in Mental Status Sepsis Action Taken by Nursing 03/06/20 18:51 03/06/20 19:00 03/06/20 19:01 Temperature Temperature Source Pulse Rate 83 82 Pulse Rate [Apical] 81 Pulse Rate from SpO2 Sensor 84 83 Pulse Rhythm Pulse Rhythm [Apical] Regular Pulse Strength [Apical] Normal Respiratory Rate 18 15 17 Respiratory Effort / Characteristics Non-Labored Spontaneous Respiratory Depth Normal Respiratory Pattern Regular Blood Pressure 129/66 Blood Pressure [Right Arm] 131/68 Blood Pressure Mean 83 Blood Pressure Mean [Right Arm] 89 Blood Pressure Position Blood Pressure Position [Right Arm] Lying Pulse Oximetry 94 93 92 Oxygen Delivery Method Room Air Sepsis Recent Fever Within 48 Hours Sepsis New/Unexplained Change in Mental Status Sepsis Action Taken by Nursing 03/06/20 19:30 03/06/20 19:31 03/06/20 19:45 Temperature Temperature Source Pulse Rate 87 85 89 Pulse Rate [Apical] Pulse Rate from SpO2 Sensor 87 89 89 Pulse Rhythm Pulse Rhythm [Apical] Pulse Strength [Apical] Respiratory Rate 14 15 16 Respiratory Effort / Characteristics Respiratory Depth Respiratory Pattern Blood Pressure 135/70 172/89 H Blood Pressure [Right Arm] Blood Pressure Mean 95 118 Blood Pressure Mean [Right Arm] Blood Pressure Position Blood Pressure Position [Right Arm] Pulse Oximetry 92 94 95 Oxygen Delivery Method Sepsis Recent Fever Within 48 Hours Sepsis New/Unexplained Change in Mental Status Sepsis Action Taken by Nursing 03/06/20 20:00 03/06/20 20:01 03/06/20 20:30 Temperature Temperature Source Pulse Rate 90 87 89 Pulse Rate [Apical] Pulse Rate from SpO2 Sensor 90 86 90 Pulse Rhythm Pulse Rhythm [Apical] Pulse Strength [Apical] Respiratory Rate 13 16 17 Respiratory Effort / Characteristics Respiratory Depth Respiratory Pattern Blood Pressure 151/84 H 153/84 H Blood Pressure [Right Arm] Blood Pressure Mean 99 98 Blood Pressure Mean [Right Arm] Blood Pressure Position Blood Pressure Position [Right Arm] Pulse Oximetry 93 93 93 Oxygen Delivery Method Sepsis Recent Fever Within 48 Hours Sepsis New/Unexplained Change in Mental Status Sepsis Action Taken by Nursing 03/06/20 20:31 Temperature Temperature Source Pulse Rate 89 Pulse Rate [Apical] Pulse Rate from SpO2 Sensor 89 Pulse Rhythm Pulse Rhythm [Apical] Pulse Strength [Apical] Respiratory Rate 18 Respiratory Effort / Characteristics Respiratory Depth Respiratory Pattern Blood Pressure Blood Pressure [Right Arm] Blood Pressure Mean Blood Pressure Mean [Right Arm] Blood Pressure Position Blood Pressure Position [Right Arm] Pulse Oximetry 93 Oxygen Delivery Method Sepsis Recent Fever Within 48 Hours Sepsis New/Unexplained Change in Mental Status Sepsis Action Taken by Nursing Laboratory Data Result diagrams: 03/06/20 16:50 03/06/20 16:50 Lab Results 03/06/20 03/06/20 Range/Units 16:50 16:50 WBC 10.88 H (4.8-10.8) K/uL RBC 3.59 L (4.2-5.4) M/uL Hgb 9.4 L (12.0-16.0) g/dL Hct 31.2 L (37-47) % MCV 86.9 (80-100) fL MCH 26.2 (25-34) pg MCHC 30.1 L (32-36) g/dL RDW Std Deviation 74.9 H (36.4-46.3) fL RDW Coeff of Raymundo 23.5 H (11.5-14.5) % Plt Count 255 (130-400) K/uL MPV 8.4 (7.4-10.4) fL Immature Gran % (Auto) 0.4 % Neut % (Auto) 89.0 % Lymph % (Auto) 5.3 % Boyd % (Auto) 4.2 % Eos % (Auto) 0.8 % Baso % (Auto) 0.3 % Immature Gran # (Auto) 0.04 H (0.00-0.02) K/uL Neut # (Auto) 9.68 H (1.4-6.5) K/uL Lymph # (Auto) 0.58 L (1.2-3.4) K/uL Boyd # (Auto) 0.46 (0.11-0.59) K/uL Eos # (Auto) 0.09 (0-0.5) K/uL Baso # (Auto) 0.03 (0-0.2) K/uL Anisocytosis Present Ovalocytes 1+ Sodium 135 L (136-145) mmol/L Potassium 3.0 L (3.5-5.1) mmol/L Chloride 102 (98-107) mmol/L Carbon Dioxide 28 (21-32) mmol/L Anion Gap 5.0 (3-11) BUN 14 (7-18) mg/dl Creatinine 0.54 L (0.6-1.2) mg/dl Est Cr Clr Drug Dosing Not Reportable Est GFR ( Amer) 105.5 Est GFR (Non-Af Amer) 91.0 BUN/Creatinine Ratio 25.2 H (10-20) Glucose 98 (70-99) mg/dl Calcium 8.7 (8.5-10.1) mg/dl Magnesium 1.4 L (1.8-2.4) mg/dl Total Bilirubin 0.3 (0.2-1) mg/dl AST 17 (15-37) U/L ALT 10 L (12-78) U/L Alkaline Phosphatase 62 (45-117) U/L Total Protein 6.7 (6.4-8.2) gm/dl Albumin 2.3 L (3.4-5.0) gm/dl Globulin 4.4 H (2.5-4.0) gm/dl Albumin/Globulin Ratio 0.5 L (0.9-2) Lipase 109 (73-393) U/L Administered Medications Ioversol (Optiray 320 100ml) 92 ml IV ONCE PRN PRN Reason: Interaction Checking Stop: 03/10/20 17:44 Last Admin: 03/06/20 17:46 Dose: 92 ml Documented by: [id number] Discontinued Medications Sodium Chloride (Nss 1000ml) 1,000 mls @ 999 mls/hr IV .Q1H1M ONE Stop: 03/06/20 17:54 Last Infusion: 03/06/20 19:32 Dose: 0 mls/hr Documented by: [id number] Admin: 03/06/20 17:22 Dose: 999 mls/hr Documented by: [id number] Potassium Chloride (K Jamie / Wtr) 10 meq in 100 mls @ 100 mls/hr IV ONE ONE Stop: 03/06/20 18:39 Last Infusion: 03/06/20 20:52 Dose: 0 mls/hr Documented by: [id number] Admin: 03/06/20 18:49 Dose: 100 mls/hr Documented by: [id number] Piperacillin Sod/Tazobactam Sod (Zosyn) 4.5 gm in 120 mls @ 240 mls/hr IV NOW ONE Stop: 03/06/20 19:57 Last Infusion: 03/06/20 21:22 Dose: 0 mls/hr Documented by: [id number] Admin: 03/06/20 20:30 Dose: 240 mls/hr Documented by: [id number] Promethazine HCl (Phenergan) 12.5 mg in 50.5 mls @ 202 mls/hr IV NOW STA Stop: 03/06/20 20:37 Last Admin: 03/06/20 21:11 Dose: 202 mls/hr Documented by: [id number] Morphine Sulfate (Morphine Sulfate) 4 mg IV NOW STA Stop: 03/06/20 16:55 Last Admin: 03/06/20 17:22 Dose: 4 mg Documented by: [id number] Morphine Sulfate (Morphine Sulfate) 2 mg IV NOW STA Stop: 03/06/20 20:23 Last Admin: 03/06/20 20:46 Dose: 2 mg Documented by: [id number] Ondansetron HCl (Zofran) Confirm Administered Dose 4 mg .ROUTE .[facility] ONE Stop: 03/06/20 17:29 Last Admin: 03/06/20 17:34 Dose: 4 mg Documented by: [id number] Ondansetron HCl (Zofran) 4 mg IV NOW STA Stop: 03/06/20 17:29 Last Admin: 03/06/20 17:34 Dose: Not Given Documented by: [id number] Ondansetron HCl (Zofran) 4 mg IV NOW STA Stop: 03/06/20 18:58 Last Admin: 03/06/20 19:20 Dose: 4 mg Documented by: [id number] Discharge Plan Visit Data Chief Complaint: Abdominal Pain Stated Complaint: ABD PAIN, VOMITING ED Provider: Armani Hough Discharge Problem: Abdominal pain, Abdominal abscess, Vomiting, Hypomagnesemia, Acute hypokalemia Discharge Instructions Interventions: ED Discharge Assessment Last Done: 03/06/20 20:58 Forms Stand Alone Forms: [employer] [place] Prescriptions Prescriptions: No Action levothyroxine [Synthroid] 100 mcg tablet 100 mcg PO QAM Qty: 90 RF: 3 omega-3 fatty acids 1,000 mg capsule 1,000 mg PO DAILY Qty: 30 RF: 2 vitamin E (dl, acetate) 100 unit capsule 100 units PO DAILY Qty: 30 RF: 2 citalopram [Celexa] 40 mg tablet 40 mg PO QAM Qty: 90 RF: 3 lorazepam 0.5 mg tablet 0.5 mg PO DAILY PRN (Reason: anxiety) Qty: 30 RF: 1 fluconazole 100 mg tablet 100 mg PO Q3D Qty: 20 RF: 0 folic acid 1 mg tablet 1 mg PO DIRECTED RF: 0 pantoprazole [Protonix] 40 mg tablet,delayed release (DR/EC) 40 mg PO QAM RF: 0 aspirin [Aspir-81] 81 mg Tablet,Delayed Release (Dr/Ec) 81 mg PO QAM RF: 0 ciprofloxacin HCl 500 mg tablet 500 mg PO BID Qty: 28 RF: 0 metronidazole [Flagyl] 500 mg tablet 500 mg PO TID Qty: 42 RF: 0 magnesium oxide 400 mg (241.3 mg magnesium) tablet 400 mg PO BID Qty: 20 RF: 0 Phosphorous 250 mg tablet 1 tab PO DAILY Qty: 3 RF: 0 prochlorperazine maleate [Compazine] 5 mg tablet 5 mg PO TID PRN (Reason: nausea and vomiting) Qty: 20 RF: 0 oxycodone 5 mg tablet 5 mg PO Q6H PRN (Reason: pain) Qty: 14 RF: 0 torsemide 10 mg tablet 10 mg PO Q OTHER DAY PRN (Reason: swelling) RF: 0 Referrals Referrals: Zion Bartholomew MD [Primary Care Provider] - Discharge Problem: Abdominal pain Qualifiers: Abdominal location: unspecified location Qualified Code(s): R10.9 - Unspecified abdominal pain Vomiting Qualifiers: Vomiting type: unspecified Vomiting Intractability: unspecified Nausea presence: with nausea Qualified Code(s): R11.2 - Nausea with vomiting, unspecified
[2020-03-06 17:17] LABS: Basophils # (auto) 0.03 K/uL (0-0.2); Basophils % (auto) 0.3 %; Eosinophils # (auto) 0.09 K/uL (0-0.5); Eosinophils % (auto) 0.8 %; Hematocrit (blood only) 31.2 % (37-47); Hemoglobin 9.4 g/dL (12.0-16.0); Immature Granulocytes # (auto) 0.04 K/uL (0.00-0.02); Immature Granulocytes % (auto) 0.4 %; Lymphocytes # (auto) 0.58 K/uL (1.2-3.4); Lymphocytes % (auto) 5.3 %; Mean Corpuscular Hemoglobin 26.2 pg (25-34); Mean Corpuscular Hgb Conc 30.1 g/dL (32-36); Mean Corpuscular Volume 86.9 fL (80-100); Mean Platelet Volume 8.4 fL (7.4-10.4); Monocytes # (auto) 0.46 K/uL (0.11-0.59); Monocytes % (auto) 4.2 %; Neutrophils # (auto) 9.68 K/uL (1.4-6.5); Platelet Count 255 K/uL (130-400); RDW Coefficient of Variation 23.5 % (11.5-14.5); RDW Standard Deviation 74.9 fL (36.4-46.3); Red Blood Count 3.59 M/uL (4.2-5.4); White Blood Count 10.88 K/uL (4.8-10.8)
[2020-03-06] MEDS ORDERED: ONDANSETRON INJ 2 MG/ML 2 ML VIAL IV STA ×2 (17:28→18:57)
[2020-03-06] MEDS ORDERED: ONDANSETRON INJ 2 MG/ML 2 ML VIAL ONE (17:28)
[2020-03-06 17:30] LABS: Alanine Aminotransferase 10 U/L (12-78); Albumin Level 2.3 gm/dl (3.4-5.0); Aspartate Aminotransferase 17 U/L (15-37); BUN Creatinine Ratio 25.2 (10-20); Blood Urea Nitrogen 14 mg/dl (7-18); Calcium 8.7 mg/dl (8.5-10.1); Carbon Dioxide 28 mmol/L (21-32); Chloride 102 mmol/L (98-107); Est GFR (African American) 105.5; Glucose 98 mg/dl (70-99); Lipase 109 U/L (73-393); Sodium 135 mmol/L (136-145)
[2020-03-06 17:33] LABS: Albumin Globulin Ratio 0.5 (0.9-2); Alkaline Phosphatase 62 U/L (45-117); Bilirubin,Total 0.3 mg/dl (0.2-1); Globulin 4.4 gm/dl (2.5-4.0); Total Protein 6.7 gm/dl (6.4-8.2)
[2020-03-06] MEDS ORDERED: POTASSIUM CHLORIDE / WTR 10 MEQ/100 ML PLCT IV ONE (17:40)
[2020-03-06] MEDS ORDERED: IOVERSOL 100ml IV PRN (17:45)
[2020-03-06 17:48] LABS: Anisocytosis Present; Ovalocytes 1+
[2020-03-06 17:59] LABS: Magnesium 1.4 mg/dl (1.8-2.4)
--- NOTE | 2020-03-06 18:23 | CT Scan Report ---
CT SCAN OF THE ABDOMEN AND PELVIS WITH IV CONTRAST CLINICAL HISTORY: Lower abdominal pain. Nausea and vomiting. Metastatic lung cancer. COMPARISON STUDY: Abdominal CT dated 02/20/2020. TECHNIQUE: Following the IV administration of 92 cc of Optiray 320, CT scan of the abdomen and pelvi s is performed from the lung bases to the proximal femora. Images are reviewed in the axial, sagittal , and coronal planes. IV contrast was administered without complication. A dose lowering technique wa s utilized adhering to the principles of ALARA. CT DOSE: 244.77 mGy.cm FINDINGS: Lung bases: The heart is mildly enlarged and there is a moderate pericardial effusion. The coronary a rteries are densely calcified. A small hiatal hernia is noted. There are trace pleural effusions. Sca rring/atelectasis is noted at the lung bases. There is no airspace consolidation typical for pneumoni a. Liver: The contrast-enhanced liver is normal in size, contour, and attenuation. There is no intrahepa tic biliary ductal dilatation. The hepatic veins and portal veins are patent. Gallbladder: Unremarkable. Spleen: Normal in size and attenuation. Pancreas: Unremarkable. Adrenal glands: A 2.1 cm left adrenal nodule is unchanged. The right adrenal gland is normal in appea abbey. Kidneys: The contrast enhanced kidneys demonstrate mild cortical atrophy. There is moderate left hydr oureteronephrosis. No hydronephrosis is seen on the right. The kidneys enhance symmetrically. A 1.8 c m cyst arises from the lower pole the right kidney. Additional scattered subcentimeter cortical hypod ensities also likely represent cysts but are too small for definitive characterization. Abdominal vasculature: The abdominal aorta is normal in course and caliber noting advanced atheroscle rotic calcification. Bowel: There is postoperative change from a left lower quadrant colostomy. Severe constipation is not ed in the right colon. There is wall thickening and hyperemia of the transverse and descending colon with surrounding inflammation. The small bowel loops are normal in caliber. The appendix is not iden tified and reported surgically absent. Question a 2.6 cm abnormal soft tissue lesion versus intralumi nal debris in the proximal duodenum seen on image #128. Peritoneum: No intraperitoneal free air is seen. Trace pelvic ascites is again noted. Extensive abnor mal soft tissue thickening is again seen throughout the presacral region. Multiloculated fluid collec tions are again seen in the right presacral region extending to the sacral promontory. This is likely unchanged as compared to 02/20/2020. Fluid collections are also seen within the left anterior and lat eral pelvis. A fluid collection the left ventral pelvis on image #280 measures approximate 4 x 2 cm. Lymphadenopathy: None. Pelvic viscera: Evaluation of the pelvis is degraded by streak artifact from a left hip arthroplasty. The bladder is grossly unremarkable but not well evaluated. The uterus and adnexa are not well asses sed due to significant streak artifact from a left hip arthroplasty. Calcified fibroids are noted. Skeletal structures: The skeletal structures are osteopenic. There is mild lumbosacral spondylosis. O steoblastic metastatic disease involving the left iliac wing is similar to previous. No definite lyti c or blastic lesion is seen. A left hip arthroplasty is in place. Nondisplaced left acetabular fractu re is again noted. IMPRESSION: 1. Again seen is postoperative change from a diverting left lower quadrant colostomy. 2. There is severe constipation and distention of the colon. There is wall thickening and mucosal hyp eremia of the colon with surrounding inflammation. The appearance is typical for colitis, likely ster coral colitis. 3. The small bowel loops are normal in caliber. No high-grade bowel obstruction is identified. 4. Extensive presacral abnormality with multiloculated presacral and pelvic collections/abscesses aga in noted. This is likely similar to the 02/20/2020 examination. 5. Moderate left-sided hydronephrosis persists. Right-sided hydronephrosis has resolved. 6. Nondisplaced left acetabular fracture is again noted. 7. Osseous metastatic disease is similar to previous. 8. Trace pleural effusions. 9. Additional findings as above. ACT 112: Negative or not required by law. Electronically signed by: Jeffry Sotomayor M.D. 03/06/2020 6:22 PM
[2020-03-06] MEDS ORDERED: PIPERACILL/TAZOBAC CONSULT ACTIVE PRN (19:28)
[2020-03-06] MEDS ORDERED: PIPERACILLIN/TAZOBACTAM 4.5 GM/120 ML BAG IV ONE (19:28)
--- NOTE | 2020-03-06 20:18 | History & Physical Report ---
Date of Service March 06, 2020 Assessment & Plan (1) Abdominal pain: 79yo C female with Stage IV adenocarcinoma of lung presenting with abdominal pain x 1 day associated with nausea/vomiting/decreased colostomy output. CT reveals severe constipation and distention of the colon as well as wall thickening and mucosal hyperemia of the colon with surrounding inflammation typical for stercoral colitis. Patient is afebrile, hemodynamically stable, significant abdominal pain. No obstruction noted on CT. Patient with normoactive bowel sounds. -Observation to medical floor -NPO except meds, chips/sips -IVF with NSS at 100mL/hr x 2 L -Electrolyte repletion with PO and IV potassium and IV magnesium -Check PO4 and replete as needed -Pain control with Tylenol, Oxycodone and Morphine as needed. Try to minimize narcotic use as it may be contributing to underlying constipation -Zofran PRN nausea -Colace PRN Present on Admission?: Yes (2) Pelvic abscess: Extensive presacral abnormality with multiloculated presacral and pelvic collections/abscesses again noted. Similar to 02/20/20 imaging. Patient is afebrile. Surgery has evaluated these abscesses before and found that they are not amenable to surgical intervention at this time. -Continue PO Cipro and Flagyl -Continue PO Fluconazole for thrush prevention -Check EKG Present on Admission?: Yes (3) History of colostomy: Minimal output in setting of presumed acute constipation. Stoma appears healthy -Routine care q shift -Monitor output Present on Admission?: Yes (4) GERD (gastroesophageal reflux disease): Chronic. Stable -Continue Protonix daily Present on Admission?: Yes (5) Hypertension: Blood pressure mildly elevated in setting of acute pain -Continue to monitor -Patient not on home medications for HTN Present on Admission?: Yes (6) Lung cancer: Patient on maintenance chemotherapy. Follows with Oncology -Routine followup on discharge Present on Admission?: Yes (7) Depression: Chronic. Well controlled -Ativan 0.5mg po daily PRN -Continue Celexa 40mg po daily Present on Admission?: Yes (8) Hypothyroidism: Chronic -Check TSH with AM labs -Continue Synthroid F/E/N - NSS at 100mL/hr x 2 liters with 20mEq KCl, KCl 40mEq PO x 1 dose, IV Mag sulfate x 2 grams, check PO4 and replete as needed, repeat labs in AM, NPO for now Ppx - Lovenox 40mg sq daily Code - Full per discussion with patient Dispo - Observation to medical floor Present on Admission?: Yes Admission and Anticipated Discharge Date Admission Date: 03/06/20 Anticipated date of discharge: 03/08/20 History of Present Illness Chief Complaint: abdominal pain Primary Care Provider: Zion Bartholomew MD Aydee Burgos is a 79yo C female metastatic adenocarcinoma of the lung s/p treatment with carboplatin/pemetrexed and pembrolizumab currently on maintenance therapy with pembrolizimab and pemetrexed. She follows with Dr. Brooks, last seen on 03/04/20. She presents today with severe lower abdominal pain which started yesterday. She states pain is constant and comes in waves with associated diaphoresis, nausea and vomiting/dry heaving. She has a colostomy in place and reports minimal output since yesterday. She denies fevers but has had some chills. Denies JAEGER/CP/SOB/palpitations. Denies dysuria/hematuria and states that she is able to void without difficulty. Poor appetite and PO intake of late as well as some weakness. Otherwise, no new complaints. She has diverticular disease complicated by microperforation with abscess formation and SBO in the past. She had a sigmoid colostomy placed in October 2019. She also has intra-abdominal abscesses which are not amenable to surgical intervention - she is on PO antibiotic now with Cipro/Flagyl. ER Course: Zofran 4mg IV x 2, KCL 10mEq, Morphine 4mg IV, NSS x 1L Allergies Allergy/AdvReac Type Severity Reaction Status Date / Time nickel Allergy Intermediate Rash Verified 03/06/20 16:49 venlafaxine AdvReac Intermediate HTN Verified 03/06/20 16:49 clarithromycin AdvReac Mild N/V Verified 03/06/20 16:49 codeine AdvReac Mild UPSET Verified 03/06/20 16:49 STOMACH hydrocodone AdvReac Mild N/V Verified 03/06/20 16:49 metronidazole [From Flagyl] AdvReac Mild Gastrointestinal Verified 03/06/20 16:49 Upset Home Medications Home Medications Medication Instructions Recorded Confirmed Type folic acid 1 mg PO DIRECTED 08/04/19 03/06/20 History pantoprazole [Protonix] 40 mg PO QAM 08/30/19 03/06/20 History levothyroxine 100 mcg tablet 100 mcg PO QAM #90 tab 09/12/19 03/06/20 Rx aspirin [Aspir-81] 81 mg PO QAM 09/20/19 03/06/20 History omega-3 fatty acids 1,000 mg 1,000 mg PO DAILY #30 cap 10/21/19 03/06/20 Rx capsule vitamin E (dl, acetate) 100 unit 100 units PO DAILY #30 cap 10/21/19 03/06/20 Rx capsule citalopram 40 mg tablet 40 mg PO QAM #90 tab 01/09/20 03/06/20 Rx lorazepam 0.5 mg tablet 0.5 mg PO DAILY PRN #30 tab 01/14/20 03/06/20 Rx ciprofloxacin HCl 500 mg PO BID #28 tab 02/29/20 03/06/20 Rx magnesium oxide 400 mg PO BID #20 tab 02/29/20 03/06/20 Rx metronidazole [Flagyl] 500 mg PO TID #42 tab 02/29/20 03/06/20 Rx oxycodone 5 mg PO Q6H PRN #14 tab 02/29/20 03/06/20 Rx prochlorperazine maleate 5 mg PO TID PRN #20 tab 02/29/20 03/06/20 Rx [Compazine] sod phos di, mono-K phos mono 1 tab PO DAILY #3 tab 02/29/20 03/06/20 Rx [Phosphorous] fluconazole 100 mg tablet 100 mg PO Q3D #20 tab 03/02/20 03/06/20 Rx torsemide 10 mg PO Q OTHER DAY PRN 03/06/20 03/06/20 History Past Med/Surg History Social History Preferred Language: Vietnamese Communication Ability: Effective Visual Impairment: No Limitations Hearing Ability: Normal Housecalls Nurse Required: No Beliefs That Will Affect Care: None marital status: Unknown Current Living Situation: Family Current Living Situation Comment: lives with grandson current occupational status: retired current occupation: worked at [employer] ([employer]) other: 1 daughter Feels Safe at Home: Yes Safety Concerns: Feels Safe At This Time Smoking Status: Current every day smoker Tobacco Type: cigarettes ; Age Started Using Tobacco: 21 ; packs per day: 0.5 ; Cigarettes Per Day: 6 ; Second Hand Exposure: No ; Hx Alcohol Use: No Hx Substance Use: No Childhood Exposure to Second-Hand Smoke: Yes (both parents) caffeine: Yes Dental Care, Regularly: No Seatbelt Use: always Review of Systems Review of Systems: All systems reviewed & are unremarkable except as noted in HPI & below Physical Exam Physical Exam: General: patient chronically ill in appearance, cachectic, NAD, AA&O, answers questions appropriately and follows commands Skin: dry and flaking, no rash/lesions HEENT: NC/AT, PERRL, EOMI, anicteric sclera, conjunctiva without injection, external ear normal to inspection and nontender, nares patent, dry mucus membranes, no oropharyngeal lesions, neck supple, trachea midline, no LAD, no thyromegaly, no JVD Heart: +S1/S2, regular, no m/r/g, port in place left chest wall, nontender to palpation Lungs: equal air entry bilaterally, no rales/rhonchi/wheezes Abd: +BS, soft, ND, tender in lower abdomen with voluntary guarding, no rebound/peritoneal signs, colostomy in place with healthy appearing stoma, minimal amount of non-bloody/non-mucoid stool in bag which patient states is from yesterday Ext: warm, 2+ pulses in UE/LE bilaterally, +clubbing of fingers, +2+ pitting edema of bilateral LE Neuro: nonfocal, patient AA&O x 4, speech intact, no facial droop, moving all extremities on command with equal strength 5/5 Results & Data Results & Data ([facility]) Vital Signs (Past 12 Hours) Vital Signs Temp Pulse Pulse Resp BP BP Pulse Ox 03/06/20 19:45 89 16 172/89 H 95 03/06/20 19:31 85 15 94 03/06/20 19:30 87 14 135/70 92 03/06/20 19:01 82 17 92 03/06/20 19:00 83 15 129/66 93 03/06/20 18:51 81 18 131/68 94 03/06/20 18:31 83 17 91 03/06/20 18:30 86 14 131/68 91 06/06/20 18:01 82 92 03/06/20 18:00 81 137/64 94 03/06/20 17:51 79 17 131/65 97 03/06/20 17:31 88 15 92 03/06/20 17:30 89 20 163/75 H 94 03/06/20 17:01 81 14 142/71 H 98 03/06/20 17:00 20 03/06/20 16:55 84 21 97 03/06/20 16:50 81 79 14 128/69 142/71 H 95 03/06/20 16:08 37.2 C 95 H 20 130/60 94 Laboratory Results Lab Results 03/06/20 03/06/20 Range/Units 16:50 16:50 WBC 10.88 H (4.8-10.8) K/uL RBC 3.59 L (4.2-5.4) M/uL Hgb 9.4 L (12.0-16.0) g/dL Hct 31.2 L (37-47) % MCV 86.9 (80-100) fL MCH 26.2 (25-34) pg MCHC 30.1 L (32-36) g/dL RDW Std Deviation 74.9 H (36.4-46.3) fL RDW Coeff of Raymundo 23.5 H (11.5-14.5) % Plt Count 255 (130-400) K/uL MPV 8.4 (7.4-10.4) fL Immature Gran % (Auto) 0.4 % Neut % (Auto) 89.0 % Lymph % (Auto) 5.3 % Porter % (Auto) 4.2 % Eos % (Auto) 0.8 % Baso % (Auto) 0.3 % Immature Gran # (Auto) 0.04 H (0.00-0.02) K/uL Neut # (Auto) 9.68 H (1.4-6.5) K/uL Lymph # (Auto) 0.58 L (1.2-3.4) K/uL Porter # (Auto) 0.46 (0.11-0.59) K/uL Eos # (Auto) 0.09 (0-0.5) K/uL Baso # (Auto) 0.03 (0-0.2) K/uL Anisocytosis Present Ovalocytes 1+ Sodium 135 L (136-145) mmol/L Potassium 3.0 L (3.5-5.1) mmol/L Chloride 102 (98-107) mmol/L Carbon Dioxide 28 (21-32) mmol/L Anion Gap 5.0 (3-11) BUN 14 (7-18) mg/dl Creatinine 0.54 L (0.6-1.2) mg/dl Est Cr Clr Drug Dosing Not Reportable Est GFR ( Amer) 105.5 Est GFR (Non-Af Amer) 91.0 BUN/Creatinine Ratio 25.2 H (10-20) Glucose 98 (70-99) mg/dl Calcium 8.7 (8.5-10.1) mg/dl Magnesium 1.4 L (1.8-2.4) mg/dl Total Bilirubin 0.3 (0.2-1) mg/dl AST 17 (15-37) U/L ALT 10 L (12-78) U/L Alkaline Phosphatase 62 (45-117) U/L Total Protein 6.7 (6.4-8.2) gm/dl Albumin 2.3 L (3.4-5.0) gm/dl Globulin 4.4 H (2.5-4.0) gm/dl Albumin/Globulin Ratio 0.5 L (0.9-2) Lipase 109 (73-393) U/L Diagnostic Findings CT SCAN OF THE ABDOMEN AND PELVIS WITH IV CONTRAST CLINICAL HISTORY: Lower abdominal pain. Nausea and vomiting. Metastatic lung cancer. COMPARISON STUDY: Abdominal CT dated 02/20/2020. TECHNIQUE: Following the IV administration of 92 cc of Optiray 320, CT scan of the abdomen and pelvis is performed from the lung bases to the proximal femora. Images are reviewed in the axial, sagittal, and coronal planes. IV contrast was administered without complication. A dose lowering technique was utilized adhering to the principles of ALARA. CT DOSE: 244.77 mGy.cm FINDINGS: Lung bases: The heart is mildly enlarged and there is a moderate pericardial effusion. The coronary arteries are densely calcified. A small hiatal hernia is noted. There are trace pleural effusions. Scarring/atelectasis is noted at the lung bases. There is no airspace consolidation typical for pneumonia. Liver: The contrast-enhanced liver is normal in size, contour, and attenuation. There is no intrahepatic biliary ductal dilatation. The hepatic veins and portal veins are patent. Gallbladder: Unremarkable. Spleen: Normal in size and attenuation. Pancreas: Unremarkable. Adrenal glands: A 2.1 cm left adrenal nodule is unchanged. The right adrenal gland is normal in appearance. Kidneys: The contrast enhanced kidneys demonstrate mild cortical atrophy. There is moderate left hydroureteronephrosis. No hydronephrosis is seen on the right. The kidneys enhance symmetrically. A 1.8 cm cyst arises from the lower pole the right kidney. Additional scattered subcentimeter cortical hypodensities also likely represent cysts but are too small for definitive characterization. Abdominal vasculature: The abdominal aorta is normal in course and caliber noting advanced atherosclerotic calcification. Bowel: There is postoperative change from a left lower quadrant colostomy. Severe constipation is noted in the right colon. There is wall thickening and hyperemia of the transverse and descending colon with surrounding inflammation. The small bowel loops are normal in caliber. The appendix is not identified and reported surgically absent. Question a 2.6 cm abnormal soft tissue lesion versus intraluminal debris in the proximal duodenum seen on image #128. Peritoneum: No intraperitoneal free air is seen. Trace pelvic ascites is again noted. Extensive abnormal soft tissue thickening is again seen throughout the presacral region. Multiloculated fluid collections are again seen in the right presacral region extending to the sacral promontory. This is likely unchanged as compared to 02/20/2020. Fluid collections are also seen within the left anterior and lateral pelvis. A fluid collection the left ventral pelvis on image #280 measures approximate 4 x 2 cm. Lymphadenopathy: None. Pelvic viscera: Evaluation of the pelvis is degraded by streak artifact from a left hip arthroplasty. The bladder is grossly unremarkable but not well evaluated. The uterus and adnexa are not well assessed due to significant streak artifact from a left hip arthroplasty. Calcified fibroids are noted. Skeletal structures: The skeletal structures are osteopenic. There is mild lumbosacral spondylosis. 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 No definite lytic or blastic lesion is seen. A left hip arthroplasty is in place. Nondisplaced left acetabular fracture is again noted. IMPRESSION: 1. Again seen is postoperative change from a diverting left lower quadrant colostomy. 2. There is severe constipation and distention of the colon. There is wall thickening and mucosal hyperemia of the colon with surrounding inflammation. The appearance is typical for colitis, likely stercoral colitis. 3. The small bowel loops are normal in caliber. No high-grade bowel obstruction is identified. 4. Extensive presacral abnormality with multiloculated presacral and pelvic collections/abscesses again noted. This is likely similar to the 02/20/2020 examination. 5. Moderate left-sided hydronephrosis persists. Right-sided hydronephrosis has resolved. 6. Nondisplaced left acetabular fracture is again noted. 7. Osseous metastatic disease is similar to previous. 8. Trace pleural effusions. 9. Additional findings as above. ACT 112: Negative or not required by law. Electronically signed by: Jeffry Sotomayor M.D. 03/06/2020 6:22 PM Dictated: 03/06/20 1750 Transcribed: 03/06/20 1805 Code Status & VTE Plan Code Status FULL VTE Prophylaxis Plan VTE Prophylaxis will be ordered: Yes PG Care Time/CCT Total # of Minutes Spent Total Time Spent with Patient: Total time spent is greater than 50% in coordination of care (as documented) at patient's floor/unit and/or counseling patient: Coding Level of Care Code 58608 OBS Care - Level 3 Diagnoses Abdominal pain R10.30 Abdominal location: lower abdomen, unspecified Pelvic abscess History of colostomy GERD (gastroesophageal reflux disease) K21.9 Esophagitis presence: without esophagitis Hypertension I10 Hypertension type: essential hypertension Lung cancer C34.01 Laterality: right Lung location: hilum of lung Depression F32.9 Depression Type: major depressive disorder Major depression recurrence: unspecified whether recurrent Active/Remission status: remission status unspecified Hypothyroidism E03.9 Hypothyroidism type: acquired (1) Abdominal pain Abdominal location: lower abdomen, unspecified Qualified Code(s): R10.30 - Lower abdominal pain, unspecified (2) GERD (gastroesophageal reflux disease) Esophagitis presence: without esophagitis Qualified Code(s): K21.9 - Gastro- esophageal reflux disease without esophagitis (3) Hypertension Hypertension type: essential hypertension Qualified Code(s): I10 - Essential (primary) hypertension (4) Lung cancer Laterality: right Lung location: hilum of lung Qualified Code(s): C34.01 - Malignant neoplasm of right main bronchus (5) Hypothyroidism Hypothyroidism type: acquired Qualified Code(s): E03.9 - Hypothyroidism, unspecified (6) Depression Depression Type: major depressive disorder Major depression recurrence: unspecified whether recurrent Active/Remission status: remission status unsp ecified Qualified Code(s): F32.9 - Major depressive disorder, single episode, unspecified
[2020-03-06] MEDS ORDERED: MoRPHine SULFATE 2 MG/ML CARP IV STA (20:22)
[2020-03-06] MEDS ORDERED: PROMETHAZINE 12.5 MG/50.5 ML BAG IV STA (20:23)
[2020-03-06] MEDS ORDERED: POTASSIUM CHLORIDE 20 MEQ TABCR PO STA (22:25)
[2020-03-06] MEDS ORDERED: DOCUSATE SODIUM 100 MG CAP PO PRN (22:25)
[2020-03-06] MEDS ORDERED: ENOXAPARIN INJ 40 MG/0.4 ML SYR SQ SCH (23:00)
[2020-03-06] MEDS: MAGNESIUM SULFATE / D5W 1 GM/100 ML BAG IV SCH (23:39)
[2020-03-06] MEDS: NSS + 20MEQ KCL 20 MEQ/1,000 ML BAG IV SCH (23:39)
[2020-03-06] MEDS: MAGNESIUM OXIDE 400 MG TAB PO SCH (23:40)
[2020-03-06] MEDS: CIPROFLOXACIN 500 MG TAB PO SCH (23:40)
[2020-03-06] MEDS: metroNIDAZOLE 500 MG TAB PO SCH (23:40)
[2020-03-06] MEDS: ONDANSETRON INJ 2 MG/ML 2 ML VIAL IV PRN (23:51)
[2020-03-06] MEDS: MoRPHine SULFATE 2 MG/ML CARP IV PRN (23:51)
[2020-03-07] MEDS ORDERED: PROMETHAZINE HCL 12.5 MG in SODIUM CHLORIDE 0.9% 50 ML IV ONE (01:30)
[2020-03-07] MEDS ORDERED: LORazepam 0.5 MG/1 ML VIAL IV ONE (01:30)
[2020-03-07] MEDS: MAGNESIUM SULFATE / D5W 1 GM/100 ML BAG IV SCH (01:32)
[2020-03-07] MEDS: LEVOTHYROXINE SODIUM 100 MCG TABLET PO SCH (05:17)
[2020-03-07 06:19] LABS: Appearance Urine Clear (Clear); Bilirubin Urine Negative (Negative); Blood Urine Negative (Negative); Color Urine Dark Yellow; Glucose Urine UA Negative (Negative); Ketones Urine Negative (Negative); Leukocyte Esterase Urine Negative (Negative); Nitrite Urine Negative (Negative); Protein Urine Negative (Negative); Specific Gravity Urine > 1.045 (1.000-1.030); Urobilinogen Urine Negative (Negative)
[2020-03-07 06:33] LABS: INR 1.1 (0.9-1.1); Prothrombin Time 11.8 Seconds (9.0-12.0)
[2020-03-07 06:37] LABS: Basophils # (auto) 0.02 K/uL (0-0.2); Basophils % (auto) 0.1 %; Hematocrit (blood only) 32.5 % (37-47); Hemoglobin 10.1 g/dL (12.0-16.0); Immature Granulocytes # (auto) 0.07 K/uL (0.00-0.02); Immature Granulocytes % (auto) 0.4 %; Lymphocytes # (auto) 0.27 K/uL (1.2-3.4); Lymphocytes % (auto) 1.7 %; Mean Corpuscular Hemoglobin 27.5 pg (25-34); Mean Corpuscular Hgb Conc 31.1 g/dL (32-36); Mean Corpuscular Volume 88.6 fL (80-100); Mean Platelet Volume 8.6 fL (7.4-10.4); Monocytes # (auto) 0.08 K/uL (0.11-0.59); Monocytes % (auto) 0.5 %; Neutrophils # (auto) 15.74 K/uL (1.4-6.5); Neutrophils % (auto) 97.3 %; Platelet Count 276 K/uL (130-400); RDW Coefficient of Variation 23.4 % (11.5-14.5); RDW Standard Deviation 76.1 fL (36.4-46.3); Red Blood Count 3.67 M/uL (4.2-5.4); White Blood Count 16.18 K/uL (4.8-10.8)
[2020-03-07 06:54] LABS: BUN Creatinine Ratio 27.8 (10-20); Creatinine Clr Calc Pharmacy 71.8 ml/min; Est GFR (African American) 110.4; Est GFR (Non-African American) 95.3; Potassium 3.1 mmol/L (3.5-5.1)
[2020-03-07 07:05] LABS: Phosphorus 2.8 mg/dl (2.5-4.9); Thyroid Stimulating Hormone 3.51 uIu/ml (0.300-4.500)
[2020-03-07] MEDS: ONDANSETRON INJ 2 MG/ML 2 ML VIAL IV PRN (07:32)
[2020-03-07 08:12] LABS: Anisocytosis Present; Echinocytes 1+
[2020-03-07] MEDS: POT PHOSPHATE MONOBASIC W/ SOD TAB PO SCH ×2 (08:23→08:33)
[2020-03-07] MEDS: PANTOprazole 40 MG TAB PO SCH ×2 (08:23→08:33)
[2020-03-07] MEDS: ASPIRIN 81 MG ECTAB PO SCH ×2 (08:24→08:33)
[2020-03-07] MEDS: TOCOPHERYL, DL-ALPHA 100 UNITS CAP PO SCH ×2 (08:24→08:33)
[2020-03-07] MEDS: metroNIDAZOLE 500 MG TAB PO SCH ×4 (08:24→20:53)
[2020-03-07] MEDS: CIPROFLOXACIN 500 MG TAB PO SCH ×3 (08:24→20:53)
[2020-03-07] MEDS: CITALOPRAM 40 MG TAB PO SCH ×2 (08:24→08:33)
[2020-03-07] MEDS: MAGNESIUM OXIDE 400 MG TAB PO SCH ×3 (08:24→20:53)
[2020-03-07] MEDS: NSS + 20MEQ KCL 20 MEQ/1,000 ML BAG IV SCH (09:47)
[2020-03-07] MEDS: MoRPHine SULFATE 2 MG/ML CARP IV PRN ×3 (09:49→23:43)
[2020-03-07] MEDS: POLYETHYLENE (MIRALAX) 17 GM PACK PO SCH (11:24)
[2020-03-07] MEDS: PROCHLORPERAZINE 5 MG in SYRINGE 4 ML IV PRN ×2 (13:01→20:47)
--- NOTE | 2020-03-07 13:23 | Hospitalist Progress Note ---
Date of Service March 07, 2020 Assessment & Plan (1) Abdominal pain: 79-year-old female with stage IV metastatic bronchogenic carcinoma and pelvic abscesses presenting with abdominal pain and constipation in the setting of a LLQ colostomy. Abdominal pain, severe constipation, colitis: -Notable history of prior SBO, diverticulitis, pelvic abscesses and s/p sigmoid colostomy in Oct 2019. -On january 07 2020, her abdomen wound grew resistant pseudomonas. -For this admit, CT abdomen/pelvis 03/07/2020 notes severe right sided constipation, colitis, persistent multifocal pelvic abscesses, ascites. -It also notes no high-grade bowel obstruction, there is persistent moderate left-sided hydronephrosis, a nondisplaced left acetabular fracture (stable) and unchanged osseous metastatic disease -continue PRN IV toradol 15mg q6h for pain as pt wanted to avoid opioids last visit and stated this helped her pain -also has PRN morphine 2mg q4h PRN, and PO oxycodone 5mg q6h ordered for pain control -continue compazine 5mg q6h for nausea control. Pt states zofran does NOT help her nausea. -started on miralax 17g daily scheduled for her severe constipation. Continue with the PRN Colace ordered. -will continue to monitor output into the colostomy bag -continue NPO status -continue NSS ordered -consider repeat nutrition consult this visit Pelvic Abscesses -seen on abdomen/pelvis CT as above -Per general surgery, not amenable to surgical drainage -continue medical management with PO cipro 500mg BID and PO Flagyl 500mg TID -will likely be on abx indefinitely, deferred last admission to colorectal surgeon and oncologist for duration of therapy. -continue with prophylactic fluconazole q3d for oral thrush pt states she gets with abx -qtc currently 459, continue to monitor with periodic EKGs as fluconazole with celexa (see below) can prolong the qtc Anemia: -stable Hypokalemia, hypomagnesemia, hypophosphatemia: -replete as needed RLL metastatic lung adenocarcinoma (dx Jun 2019): -Mets to bone and previous left hip replacement. -Prior chemo and radiation. -Previously followed by Dr. Quintero of heme-onc. -Recent outpatient oncology visit noted in chart- bronchogenic carcinoma responding to therapy. HTN, HLD: -Patient says she is not on medication for this. -On home aspirin. COPD: -Life-long current smoker. -Denies ever needing any respiratory inhalers. Hypothyroidism: -continue home synthroid. GERD: -On home pantoprazole. Depression/anxiety: -On home celexa. -Says her in December. -Will keep as needed lorazepam. Code status: Full code Diet: currently NPO DVT prophy: Lovenox SQ Dispo: Home once constipation resolves. Patient lives at home. Presently grandson lives with her. Admission and Anticipated Discharge Date Admission Date: March 06, 2020 Anticipated date of discharge: 03/08/20 Supervising Physician Co-Signing Physician Notes Resident Physician Supervision Note: I independently interviewed and examined the patient and verified the thorpe history and physical, reviewed labs and image studies, discussed the case with the resident Dr. Paul and agree with the findings and care plan. Subjective Pt seen this AM. States she is having abdominal pain and nausea. Has not had any bowel movements, colostomy bag. Review of Systems Review of Systems: All systems reviewed & are unremarkable except as noted in Subjective Physical Exam Physical Exam: General: Alert, oriented. No acute distress Skin: No noted rashes or bruises Psych: Appropriate mood and affect Neuro: No gross deficits HEENT: NC/AT Chest: Nontender to palpation. CV: RRR, Normal s1, s2. No murmurs appreciated Resp: Breath sounds clear bilaterally Abdomen: BS+. Soft, tender especially in right quadrants. colostomy bag present Extremities: No edema in lower extremities bilaterally. Results & Data Results & Data ([facility]) Vital Signs (Past 12 Hours) Vital Signs Temp Pulse Resp BP Pulse Ox 03/07/20 07:26 36.3 C L 84 18 154/73 H 93 03/07/20 03:28 126/73 Resident Activity Tracking Resident Involvement: Resident Care Provided Care Provided: Adult Hospital Medicine (1) Abdominal pain Abdominal location: unspecified location Qualified Code(s): R10.9 - Unspecified abdominal pain
[2020-03-07] MEDS: KETOROLAC TROMETHAMINE 15 MG/ML VIAL IV PRN (15:23)
[2020-03-07] MEDS: ENOXAPARIN INJ 30 MG/0.3 ML SYR SQ SCH (20:53)
[2020-03-07] MEDS: HEPARIN 100 UNIT/ML 5ML FLUSH IV PRN ×2 (21:09→23:46)
[2020-03-07] MEDS: POTASSIUM CHLORIDE 10 MEQ in SODIUM CHLORIDE 0.9% 1000ML 1,000 ML IV SCH ×2 (22:10→22:39)
[2020-03-08] MEDS: OXYCODONE HCL IR 5 MG TAB (IMMEDIATE RELEASE) PO PRN (03:01)
[2020-03-08] MEDS: PROCHLORPERAZINE 5 MG in SYRINGE 4 ML IV PRN ×2 (03:15→12:15)
[2020-03-08] MEDS: LEVOTHYROXINE SODIUM 100 MCG TABLET PO SCH (05:36)
[2020-03-08] MEDS: KETOROLAC TROMETHAMINE 15 MG/ML VIAL IV PRN ×2 (05:36→13:18)
--- NOTE | 2020-03-08 05:39 | Electrocardiogram Report ---
Test Reason : Blood Pressure : / mmHG Vent. Rate : 086 BPM Atrial Rate : 086 BPM P-R Int : 138 ms QRS Dur : 084 ms QT Int : 384 ms P-R-T Axes : 081 017 073 degrees QTc Int : 459 ms Normal sinus rhythm Low voltage QRS Cannot rule out Anterior infarct (cited on or before 28-FEB-2020) Nonspecific T wave abnormality Abnormal ECG When compared with ECG of 28-FEB-2020 10:36, Questionable change in initial forces of Anterior leads Confirmed by Jarrod Sheldon ([id number]) on 03/08/2020 5:38:40 AM Referred By: REFERRED SELF Confirmed By:Jarrod Sheldon
[2020-03-08 05:59] LABS: Basophils # (auto) 0.01 K/uL (0-0.2); Basophils % (auto) 0.1 %; Hematocrit (blood only) 31.4 % (37-47); Hemoglobin 9.8 g/dL (12.0-16.0); Immature Granulocytes # (auto) 0.05 K/uL (0.00-0.02); Immature Granulocytes % (auto) 0.3 %; Lymphocytes # (auto) 0.37 K/uL (1.2-3.4); Lymphocytes % (auto) 1.9 %; Mean Corpuscular Hemoglobin 27.4 pg (25-34); Mean Corpuscular Hgb Conc 31.2 g/dL (32-36); Mean Corpuscular Volume 87.7 fL (80-100); Mean Platelet Volume 8.6 fL (7.4-10.4); Monocytes # (auto) 0.13 K/uL (0.11-0.59); Monocytes % (auto) 0.7 %; Neutrophils # (auto) 18.76 K/uL (1.4-6.5); Platelet Count 292 K/uL (130-400); RDW Coefficient of Variation 23.5 % (11.5-14.5); RDW Standard Deviation 74.9 fL (36.4-46.3); Red Blood Count 3.58 M/uL (4.2-5.4); White Blood Count 19.32 K/uL (4.8-10.8)
[2020-03-08] MEDS ORDERED: PROMETHAZINE HCL 12.5 MG in SODIUM CHLORIDE 0.9% 50 ML IV STA (06:25)
[2020-03-08 06:31] LABS: Anisocytosis Present
[2020-03-08 06:58] LABS: Albumin Globulin Ratio 0.5 (0.9-2); BUN Creatinine Ratio 43.1 (10-20); Bilirubin,Total 0.3 mg/dl (0.2-1); Calcium 8.2 mg/dl (8.5-10.1); Creatinine Clr Calc Pharmacy 67.5 ml/min; Est GFR (African American) 108.2; Est GFR (Non-African American) 93.4; Phosphorus 2.3 mg/dl (2.5-4.9); Potassium 3.6 mmol/L (3.5-5.1)
[2020-03-08] MEDS ORDERED: POTASSIUM PHOS 3 MMOL/1 ML INFUSION IV STA (07:16)
[2020-03-08] MEDS ORDERED: POTASSIUM PHOSPHATE 15 MMOL in SODIUM CHLORIDE 0.9% 250 ML IV ONE (07:45)
[2020-03-08] MEDS: POTASSIUM CHLORIDE 10 MEQ in SODIUM CHLORIDE 0.9% 1000ML 1,000 ML IV SCH ×2 (07:54→17:53)
--- NOTE | 2020-03-08 07:57 | Hospitalist Progress Note ---
Date of Service March 08, 2020 Assessment & Plan (1) Abdominal pain: 79-year-old female with stage IV metastatic bronchogenic carcinoma and pelvic abscesses presenting with abdominal pain and constipation in the setting of a LLQ colostomy. Abdominal pain, severe constipation, colitis: -Notable history of prior SBO, diverticulitis, pelvic abscesses and s/p sigmoid colostomy in Oct 2019. -On january 07 2020, her abdomen wound grew resistant pseudomonas. - On admission 03/07/20: notes severe right sided constipation, colitis, persistent multifocal pelvic abscesses, ascites, high-grade bowel obstruction, there is persistent moderate left-sided hydronephrosis, a nondisplaced left acetabular fracture (stable) and unchanged osseous metastatic disease -started on miralax 17g daily scheduled for her severe constipation. Continue with the PRN Colace ordered. - surgery consult after concern for blocked ostomy: improved fecal flow after manual dilation of ostomy with pinky finger, may need daily dilation going forward. Pain and Nausea control -continue PRN IV toradol 15mg q6h for pain as pt wanted to avoid opioids last visit and stated this helped her pain -also has PRN morphine 2mg q4h PRN, and PO oxycodone 5mg q6h ordered for pain control -continue compazine 5mg q6h for nausea control. Pt states zofran does NOT help her nausea. Pelvic Abscesses -seen on abdomen/pelvis CT as above -Per general surgery, not amenable to surgical drainage -continue medical management with PO cipro 500mg BID and PO Flagyl 500mg TID -will likely be on abx indefinitely, deferred last admission to colorectal surgeon and oncologist for duration of therapy. -continue with prophylactic fluconazole q3d for oral thrush pt states she gets with abx -qtc currently 459, continue to monitor with periodic EKGs as fluconazole with celexa (see below) can prolong the qtc Anemia: -stable Hypokalemia, hypomagnesemia, hypophosphatemia: -replete as needed RLL metastatic lung adenocarcinoma (dx Jun 2019): -Mets to bone and previous left hip replacement. -Prior chemo and radiation. -Previously followed by Dr. Quintero of [facility]-onc. -Recent outpatient oncology visit noted in chart- bronchogenic carcinoma responding to therapy. - continuing chemo therapy going forward; changed code status from DNR/DNI to full code HTN, HLD: -Patient says she is not on medication for this. -On home aspirin. COPD: -Life-long current smoker. -Denies ever needing any respiratory inhalers. Hypothyroidism: -continue home synthroid. GERD: -On home pantoprazole. Depression/anxiety: -On home celexa. -Says her in December. -Will keep as needed lorazepam. Code status: Full code Diet: currently NPO DVT prophy: Lovenox SQ Dispo: Home once constipation resolves. Patient lives at home. Presently grandson lives with her. Admission and Anticipated Discharge Date Admission Date: March 06, 2020 Anticipated date of discharge: 03/08/20 Supervising Physician Co-Signing Physician Notes I personally examined the patient and verified all thorpe points of history and exam, discussed case, and agree with decision making with Dr Graham. was doing better w eating and drinking prior to getting worse mid week. came in w SBO sx. surgery did digital dilation - felt immediate improvement. vitals noted nad heent nc at mmm breathing unlabored no accessory muscles good effort skin no rashes no pallor or icterus bowel obstruction - stomal stenosis - improved s/p digital dilation. further management per surgery. advance diet, follow. otherwise as above Subjective Feeling tired and unwell this AM. Pain comes and goes suddenly, consistently nauseous. Review of Systems Constitutional: + weakness; no increased appetite Respiratory: no cough and no pain on inspiration Cardiovascular: no chest pain and no palpitations Gastrointestinal: + abdominal pain, + nausea and + cramping Physical Exam Constitutional: + acute distress and + thin; + not appropriately hydrated Respiratory: normal respiratory effort, lungs clear to auscultation Cardiovascular: RRR, no murmur, no edema Gastrointestinal (Abdomen): soft, tender to palpation in epigastric, right lower quadrant, left lower quadrant, colostomy bag in place and functioning, no erythema surrounding ostomy Results & Data Results & Data ([facility]) Vital Signs (Past 12 Hours) Vital Signs Temp Pulse Resp BP Pulse Ox 03/08/20 00:24 36.9 C 82 14 124/67 92 Laboratory Results WBC 19.32 K/uL (4.8-10.8) H 03/08/20 05:37 RBC 3.58 M/uL (4.2-5.4) L 03/08/20 05:37 Hgb 9.8 g/dL (12.0-16.0) L 03/08/20 05:37 Hct 31.4 % (37-47) L 03/08/20 05:37 MCV 87.7 fL (80-100) 03/08/20 05:37 MCH 27.4 pg (25-34) 03/08/20 05:37 MCHC 31.2 g/dL (32-36) L 03/08/20 05:37 RDW Std Deviation 74.9 fL (36.4-46.3) H 03/08/20 05:37 RDW Coeff of Raymundo 23.5 % (11.5-14.5) H 03/08/20 05:37 Plt Count 292 K/uL (130-400) 03/08/20 05:37 MPV 8.6 fL (7.4-10.4) 03/08/20 05:37 Immature Gran % (Auto) 0.3 % 03/08/20 05:37 Neut % (Auto) 97.0 % 03/08/20 05:37 Lymph % (Auto) 1.9 % 03/08/20 05:37 Stokes % (Auto) 0.7 % 03/08/20 05:37 Eos % (Auto) 0.0 % 03/08/20 05:37 Baso % (Auto) 0.1 % 03/08/20 05:37 Immature Gran # (Auto) 0.05 K/uL (0.00-0.02) H 03/08/20 05:37 Neut # (Auto) 18.76 K/uL (1.4-6.5) H 03/08/20 05:37 Lymph # (Auto) 0.37 K/uL (1.2-3.4) L 03/08/20 05:37 Stokes # (Auto) 0.13 K/uL (0.11-0.59) 03/08/20 05:37 Eos # (Auto) 0.00 K/uL (0-0.5) 03/08/20 05:37 Baso # (Auto) 0.01 K/uL (0-0.2) 03/08/20 05:37 Anisocytosis Present 03/08/20 05:37 Ovalocytes 1+ 03/06/20 16:50 Echinocytes 1+ 03/07/20 06:12 PT 11.8 Seconds (9.0-12.0) 03/07/20 06:12 INR 1.1 (0.9-1.1) 03/07/20 06:12 Sodium 140 mmol/L (136-145) 03/08/20 05:37 Potassium 3.6 mmol/L (3.5-5.1) D 03/08/20 05:37 Chloride 109 mmol/L (98-107) H 03/08/20 05:37 Carbon Dioxide 27 mmol/L (21-32) 03/08/20 05:37 Anion Gap 4.0 (3-11) 03/08/20 05:37 BUN 21 mg/dl (7-18) H D 03/08/20 05:37 Creatinine 0.50 mg/dl (0.6-1.2) L 03/08/20 05:37 Est Cr Clr Drug Dosing 67.5 ml/min 03/08/20 05:37 Est GFR ( Amer) 108.2 03/08/20 05:37 Est GFR (Non-Af Amer) 93.4 03/08/20 05:37 BUN/Creatinine Ratio 43.1 (10-20) H 03/08/20 05:37 Glucose 114 mg/dl (70-99) H 03/08/20 05:37 Calcium 8.2 mg/dl (8.5-10.1) L 03/08/20 05:37 Phosphorus 2.3 mg/dl (2.5-4.9) L 03/08/20 05:37 Magnesium 2.0 mg/dl (1.8-2.4) 03/08/20 05:37 Total Bilirubin 0.3 mg/dl (0.2-1) 03/08/20 05:37 AST 16 U/L (15-37) 03/08/20 05:37 ALT 10 U/L (12-78) L 03/08/20 05:37 Alkaline Phosphatase 61 U/L (45-117) 03/08/20 05:37 Total Protein 6.0 gm/dl (6.4-8.2) L 03/08/20 05:37 Albumin 2.0 gm/dl (3.4-5.0) L 03/08/20 05:37 Globulin 4.0 gm/dl (2.5-4.0) 03/08/20 05:37 Albumin/Globulin Ratio 0.5 (0.9-2) L 03/08/20 05:37 Lipase 109 U/L (73-393) 03/06/20 16:50 TSH 3.510 uIu/ml (0.300-4.500) 03/07/20 06:12 Urine Color Dark Yellow 03/07/20 05:15 Urine Appearance Clear (Clear) 03/07/20 05:15 Urine pH 5.0 (4.5-7.5) 03/07/20 05:15 Ur Specific [place] > 1.045 (1.000-1.030) H 03/07/20 05:15 Urine Protein Negative (Negative) 03/07/20 05:15 Urine Glucose (UA) Negative (Negative) 03/07/20 05:15 Urine Ketones Negative (Negative) 03/07/20 05:15 Urine Blood Negative (Negative) 03/07/20 05:15 Urine Nitrite Negative (Negative) 03/07/20 05:15 Urine Bilirubin Negative (Negative) 03/07/20 05:15 Urine Urobilinogen Negative (Negative) 03/07/20 05:15 Ur Leukocyte Esterase Negative (Negative) 03/07/20 05:15 Resident Activity Tracking Resident Involvement: Resident Care Provided Care Provided: Adult Hospital Medicine (1) Abdominal pain Abdominal location: unspecified location Qualified Code(s): R10.9 - Unspecified abdominal pain
[2020-03-08] MEDS: CIPROFLOXACIN 500 MG TAB PO SCH ×2 (09:07→21:28)
[2020-03-08] MEDS: FLUCONAZOLE 100 MG TAB PO SCH ×2 (09:07→22:09)
[2020-03-08] MEDS: CITALOPRAM 40 MG TAB PO SCH (09:07)
[2020-03-08] MEDS: POT PHOSPHATE MONOBASIC W/ SOD TAB PO SCH (09:08)
[2020-03-08] MEDS: MAGNESIUM OXIDE 400 MG TAB PO SCH ×2 (09:08→21:28)
[2020-03-08] MEDS: ASPIRIN 81 MG ECTAB PO SCH (09:08)
[2020-03-08] MEDS: POLYETHYLENE (MIRALAX) 17 GM PACK PO SCH (09:08)
[2020-03-08] MEDS: TOCOPHERYL, DL-ALPHA 100 UNITS CAP PO SCH (09:08)
[2020-03-08] MEDS: PANTOprazole 40 MG TAB PO SCH (09:08)
[2020-03-08] MEDS: metroNIDAZOLE 500 MG TAB PO SCH ×3 (09:08→21:28)
[2020-03-08] MEDS: MoRPHine SULFATE 2 MG/ML CARP IV PRN (10:23)
--- NOTE | 2020-03-08 14:43 | Surgery Consultation ---
Date of Consultation March 08, 2020 Assessment & Plan (1) Stenosis of stoma: 79 year-old female with metastatic lung cancer with recent perforated diverticulitis with LLQ ostomy formation in October of 2019 with intra-abdominal pelvic abscesses on exterminator termite antibiotics presented to ED with abdominal pain and decreased to no ostomy output for [address] scan showing severe fecal retention of the right colon with associated colitis, likely sterocoral colitis as well as stable intra-abdominal abscesses. Wound care nurse noticed significant stenosis of the stoma likely causing fecal retention and colitis. Leukocytosis of 19k today (16K) yesterday. Plan: Digital dilatation of stoma successful today at bedside with pinky finger. Unable to dilate more than that however given patients pain. Immediate liquid stool output in large quantity and improvement of patients pain. Will need new colostomy appliance and bag, wound care nurse to change again May have increase output of colostomy due to dilatation. Will likely require serial bedside digital dilatation, can give pain medication prior Continue current medical management Encourage ambulation Can have liquids, take slowly (2) Abdominal pain: likely secondary to fecal retention, colitis improving now after digital dilatation of stoma and large amount of liquid stool output plan as above (3) Pelvic abscess: stable per CT scan. Continue custodial antibiotics repeat am labs to check wbc given increase to 19 K today afebrile since admission. Plan as above Dr. Ye arias seen and examined patient, performed stoma dilatation, please see addendum for further recommendations/plan. Supervising Physician Co-Signing Physician Notes I interviewed and examined this patient I agree with the above note. She has a history of metastatic lung cancer. She then developed perforated diverticulitis and underwent a Patricio procedure back in October. She has had decreased output over the last few days. CT is reviewed. I manually dilated the ostomy digitally with my fifth digit that was the only one that would fit. After dilatation there was expression of a significant amount of soft and liquid stool. Her abdominal pain resolved after that. The small amount of distention resolved as well. Will return tomorrow for additional dilatation. History of Present Illness Reason for Consultation: Stenosis of LLQ stoma Requesting Physician: Armani Domínguez DO Attending Physician: Armani Domínguez DO History of Present Illness Aydee is a 79 year-old female with metastatic lung cancer who was recently admitted at [facility] for SBO and intra-abdominal pelvic abscess who presented to emergency department with abdominal pain and no ostomy output for 2 days. States she thought there was no significant opening at the stoma sight. Has been on custodial antibiotics for the intra-abdominal pelvic abscesses unamenable to drainage due to small size. Her ostomy was created in October 2019 at [facility] for perforated diverticulitis. Wound care saw patient today for ostomy care and noticed significant stenosis of the stoma. CT scan of abdomen and pelvis showing colitis of the transverse and descending colon with significant stool burden in the right colon likely sterocoral colitis. Pelvic abscesses stable. No small bowel obstruction. Allergies Allergy/AdvReac Type Severity Reaction Status Date / Time nickel Allergy Intermediate Rash Verified 03/06/20 16:49 venlafaxine AdvReac Intermediate HTN Verified 03/06/20 16:49 clarithromycin AdvReac Mild N/V Verified 03/06/20 16:49 codeine AdvReac Mild UPSET Verified 03/06/20 16:49 STOMACH hydrocodone AdvReac Mild N/V Verified 03/06/20 16:49 metronidazole [From Flagyl] AdvReac Mild Gastrointestinal Verified 03/06/20 16:49 Upset Home Medications Home Medications Medication Instructions Recorded Confirmed Type folic acid 1 mg PO DIRECTED 08/04/19 03/06/20 History pantoprazole [Protonix] 40 mg PO QAM 08/30/19 03/06/20 History levothyroxine 100 mcg tablet 100 mcg PO QAM #90 tab 09/12/19 03/06/20 Rx aspirin [Aspir-81] 81 mg PO QAM 09/20/19 03/06/20 History omega-3 fatty acids 1,000 mg 1,000 mg PO DAILY #30 cap 10/21/19 03/06/20 Rx capsule vitamin E (dl, acetate) 100 unit 100 units PO DAILY #30 cap 10/21/19 03/06/20 Rx capsule citalopram 40 mg tablet 40 mg PO QAM #90 tab 01/09/20 03/06/20 Rx lorazepam 0.5 mg tablet 0.5 mg PO DAILY PRN #30 tab 01/14/20 03/06/20 Rx ciprofloxacin HCl 500 mg PO BID #28 tab 02/29/20 03/06/20 Rx magnesium oxide 400 mg PO BID #20 tab 02/29/20 03/06/20 Rx metronidazole [Flagyl] 500 mg PO TID #42 tab 02/29/20 03/06/20 Rx oxycodone 5 mg PO Q6H PRN #14 tab 02/29/20 03/06/20 Rx prochlorperazine maleate 5 mg PO TID PRN #20 tab 02/29/20 03/06/20 Rx [Compazine] sod phos di, mono-K phos mono 1 tab PO DAILY #3 tab 02/29/20 03/06/20 Rx [Phosphorous] fluconazole 100 mg tablet 100 mg PO Q3D #20 tab 03/02/20 03/06/20 Rx torsemide 10 mg PO Q OTHER DAY PRN 03/06/20 03/06/20 History Patient History Social History Preferred Language: Eritrean Communication Ability: Effective Visual Impairment: No Limitations Hearing Ability: Normal [employer] Required: No Beliefs That Will Affect Care: None marital status: Unknown Current Living Situation: Family Current Living Situation Comment: lives with grandson current occupational status: retired current occupation: worked at [employer]) other: 1 daughter Feels Safe at Home: Yes Safety Concerns: Feels Safe At This Time Smoking Status: Current every day smoker Tobacco Type: cigarettes ; Age Started Using Tobacco: 21 ; packs per day: 0.5 ; Cigarettes Per Day: 6 ; Second Hand Exposure: No ; Hx Alcohol Use: No Hx Substance Use: No Childhood Exposure to Second-Hand Smoke: Yes (both parents) caffeine: Yes Dental Care, Regularly: No Seatbelt Use: always Review of Systems Review of Systems: All systems reviewed & are unremarkable except as noted in HPI & below Physical Exam Constitutional: WD/WN, vitals as above no acute distress Respiratory: normal respiratory effort; no respiratory distress Gastrointestinal (Abdomen): Inspection/Auscultation: + abdomen distended (mild) Percussion/Palpation: + abdomen tender and abdomen soft; no guarding and abdomen not rigid LLQ osotomy with minimal liquid output. Bag removed, stenosis of the stoma present. Digital dilatation with pinky finger was only provided given stenosis and immediate return of liquid stool , large amount. Skin: no rashes, warm and dry Psychiatric: A+Ox3, euthymic affect Results & Data Vital Signs (Past 12 Hours) Vital Signs Temp Pulse Resp BP Pulse Ox 03/08/20 08:41 36.7 C 86 18 130/73 92 Laboratory Results 03/08/20 03/08/20 Range/Units 05:37 05:37 WBC 19.32 H (4.8-10.8) K/uL RBC 3.58 L (4.2-5.4) M/uL Hgb 9.8 L (12.0-16.0) g/dL Hct 31.4 L (37-47) % MCV 87.7 (80-100) fL MCH 27.4 (25-34) pg MCHC 31.2 L (32-36) g/dL RDW Std Deviation 74.9 H (36.4-46.3) fL RDW Coeff of Raymundo 23.5 H (11.5-14.5) % Plt Count 292 (130-400) K/uL MPV 8.6 (7.4-10.4) fL Immature Gran % (Auto) 0.3 % Neut % (Auto) 97.0 % Lymph % (Auto) 1.9 % Trigg % (Auto) 0.7 % Eos % (Auto) 0.0 % Baso % (Auto) 0.1 % Immature Gran # (Auto) 0.05 H (0.00-0.02) K/uL Neut # (Auto) 18.76 H (1.4-6.5) K/uL Lymph # (Auto) 0.37 L (1.2-3.4) K/uL Trigg # (Auto) 0.13 (0.11-0.59) K/uL Eos # (Auto) 0.00 (0-0.5) K/uL Baso # (Auto) 0.01 (0-0.2) K/uL Anisocytosis Present Sodium 140 (136-145) mmol/L Potassium 3.6 D (3.5-5.1) mmol/L Chloride 109 H (98-107) mmol/L Carbon Dioxide 27 (21-32) mmol/L Anion Gap 4.0 (3-11) BUN 21 H D (7-18) mg/dl Creatinine 0.50 L (0.6-1.2) mg/dl Est Cr Clr Drug Dosing 67.5 ml/min Est GFR ( Amer) 108.2 Est GFR (Non-Af Amer) 93.4 BUN/Creatinine Ratio 43.1 H (10-20) Glucose 114 H (70-99) mg/dl Calcium 8.2 L (8.5-10.1) mg/dl Phosphorus 2.3 L (2.5-4.9) mg/dl Magnesium 2.0 (1.8-2.4) mg/dl Total Bilirubin 0.3 (0.2-1) mg/dl AST 16 (15-37) U/L ALT 10 L (12-78) U/L Alkaline Phosphatase 61 (45-117) U/L Total Protein 6.0 L (6.4-8.2) gm/dl Albumin 2.0 L (3.4-5.0) gm/dl Globulin 4.0 (2.5-4.0) gm/dl Albumin/Globulin Ratio 0.5 L (0.9-2) Diagnostic Findings CT SCAN OF THE ABDOMEN AND PELVIS WITH IV CONTRAST CLINICAL HISTORY: Lower abdominal pain. Nausea and vomiting. Metastatic lung cancer. COMPARISON STUDY: Abdominal CT dated 02/20/2020. TECHNIQUE: Following the IV administration of 92 cc of Optiray 320, CT scan of the abdomen and pelvis is performed from the lung bases to the proximal femora. Images are reviewed in the axial, sagittal, and coronal planes. IV contrast was administered without complication. A dose lowering technique was utilized adhering to the principles of ALARA. CT DOSE: 244.77 mGy.cm FINDINGS: Lung bases: The heart is mildly enlarged and there is a moderate pericardial effusion. The coronary arteries are densely calcified. A small hiatal hernia is noted. There are trace pleural effusions. Scarring/atelectasis is noted at the lung bases. There is no airspace consolidation typical for pneumonia. Liver: The contrast-enhanced liver is normal in size, contour, and attenuation. There is no intrahepatic biliary ductal dilatation. The hepatic veins and portal veins are patent. Gallbladder: Unremarkable. Spleen: Normal in size and attenuation. Pancreas: Unremarkable. Adrenal glands: A 2.1 cm left adrenal nodule is unchanged. The right adrenal gland is normal in appearance. Kidneys: The contrast enhanced kidneys demonstrate mild cortical atrophy. There is moderate left hydroureteronephrosis. No hydronephrosis is seen on the right. The kidneys enhance symmetrically. A 1.8 cm cyst arises from the lower pole the right kidney. Additional scattered subcentimeter cortical hypodensities also likely represent cysts but are too small for definitive characterization. Abdominal vasculature: The abdominal aorta is normal in course and caliber noting advanced atherosclerotic calcification. Bowel: There is postoperative change from a left lower quadrant colostomy. Severe constipation is noted in the right colon. There is wall thickening and hyperemia of the transverse and descending colon with surrounding inflammation. The small bowel loops are normal in caliber. The appendix is not identified and reported surgically absent. Question a 2.6 cm abnormal soft tissue lesion versus intraluminal debris in the proximal duodenum seen on image #128. Peritoneum: No intraperitoneal free air is seen. Trace pelvic ascites is again noted. Extensive abnormal soft tissue thickening is again seen throughout the presacral region. Multiloculated fluid collections are again seen in the right presacral region extending to the sacral promontory. This is likely unchanged as compared to 02/20/2020. Fluid collections are also seen within the left anterior and lateral pelvis. A fluid collection the left ventral pelvis on image #280 measures approximate 4 x 2 cm. Lymphadenopathy: None. Pelvic viscera: Evaluation of the pelvis is degraded by streak artifact from a left hip arthroplasty. The bladder is grossly unremarkable but not well evaluated. The uterus and adnexa are not well assessed due to significant streak artifact from a left hip arthroplasty. Calcified fibroids are noted. Skeletal structures: The skeletal structures are osteopenic. There is mild lumbosacral spondylosis. 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 No definite lytic or blastic lesion is seen. A left hip arthroplasty is in place. Nondisplaced left acetabular fracture is again noted. IMPRESSION: 1. Again seen is postoperative change from a diverting left lower quadrant colostomy. 2. There is severe constipation and distention of the colon. There is wall thickening and mucosal hyperemia of the colon with surrounding inflammation. The appearance is typical for colitis, likely stercoral colitis. 3. The small bowel loops are normal in caliber. No high-grade bowel obstruction is identified. 4. Extensive presacral abnormality with multiloculated presacral and pelvic collections/abscesses again noted. This is likely similar to the 02/20/2020 examination. 5. Moderate left-sided hydronephrosis persists. Right-sided hydronephrosis has resolved. 6. Nondisplaced left acetabular fracture is again noted. 7. Osseous metastatic disease is similar to previous. 8. Trace pleural effusions. 9. Additional findings as above. (1) Abdominal pain Abdominal location: unspecified location Qualified Code(s): R10.9 - Unspecified abdominal pain
--- NOTE | 2020-03-08 17:22 | Billing Data ---
Date of Service March 08, 2020 Coding Level of Care Code 50496 Subseq Hosp Care Lvl 3
[2020-03-08] MEDS: LORazepam 0.5 MG TAB PO PRN (21:28)
[2020-03-08] MEDS: ENOXAPARIN INJ 30 MG/0.3 ML SYR SQ SCH (21:28)
[2020-03-09] MEDS: POTASSIUM CHLORIDE 10 MEQ in SODIUM CHLORIDE 0.9% 1000ML 1,000 ML IV SCH ×2 (03:54→13:51)
[2020-03-09 05:52] LABS: Hemoglobin 7.8 g/dL (12.0-16.0); Mean Corpuscular Hemoglobin 27.9 pg (25-34); Mean Corpuscular Hgb Conc 31.2 g/dL (32-36); Mean Corpuscular Volume 89.3 fL (80-100); Mean Platelet Volume 8.2 fL (7.4-10.4); Platelet Count 191 K/uL (130-400); RDW Coefficient of Variation 23.3 % (11.5-14.5); RDW Standard Deviation 75.6 fL (36.4-46.3); White Blood Count 5.13 K/uL (4.8-10.8)
[2020-03-09 06:10] LABS: Anisocytosis Present; Basophils # (auto) 0.01 K/uL (0-0.2); Basophils % (auto) 0.2 %; Eosinophils # (auto) 0.03 K/uL (0-0.5); Eosinophils % (auto) 0.6 %; Hypochromasia Present; Immature Granulocytes # (auto) 0.01 K/uL (0.00-0.02); Immature Granulocytes % (auto) 0.2 %; Lymphocytes # (auto) 0.29 K/uL (1.2-3.4); Lymphocytes % (auto) 5.7 %; Monocytes # (auto) 0.09 K/uL (0.11-0.59); Monocytes % (auto) 1.8 %; Neutrophils % (auto) 91.5 %
[2020-03-09 06:24] LABS: Albumin Level 1.6 gm/dl (3.4-5.0); BUN Creatinine Ratio 47.4 (10-20); Calcium 7.6 mg/dl (8.5-10.1); Creatinine Clr Calc Pharmacy 91.2 ml/min; Est GFR (African American) 119.5; Est GFR (Non-African American) 103.1; Magnesium 1.6 mg/dl (1.8-2.4); Potassium 3.1 mmol/L (3.5-5.1)
[2020-03-09] MEDS: LEVOTHYROXINE SODIUM 100 MCG TABLET PO SCH (06:29)
[2020-03-09 06:33] LABS: Albumin Globulin Ratio 0.5 (0.9-2); Bilirubin,Total 0.3 mg/dl (0.2-1); Globulin 3.3 gm/dl (2.5-4.0); Phosphorus 1.7 mg/dl (2.5-4.9); Total Protein 4.9 gm/dl (6.4-8.2)
[2020-03-09] MEDS ORDERED: POTASSIUM PHOS 3 MMOL/1 ML INFUSION IV STA (07:31)
[2020-03-09] MEDS ORDERED: POTASSIUM PHOSPHATE 21 MMOL in SODIUM CHLORIDE 0.9% 500 ML IV ONE (07:45)
[2020-03-09] MEDS: ACETAMINOPHEN 325 MG TAB PO PRN (08:20)
[2020-03-09] MEDS: PROCHLORPERAZINE 5 MG in SYRINGE 4 ML IV PRN (08:24)
[2020-03-09] MEDS: MAGNESIUM SULFATE / D5W 1 GM/100 ML BAG IV SCH ×2 (08:31→10:29)
[2020-03-09] MEDS: ASPIRIN 81 MG ECTAB PO SCH (09:01)
[2020-03-09] MEDS: metroNIDAZOLE 500 MG TAB PO SCH ×3 (09:01→21:37)
[2020-03-09] MEDS: MAGNESIUM OXIDE 400 MG TAB PO SCH ×2 (09:01→21:37)
[2020-03-09] MEDS: CIPROFLOXACIN 500 MG TAB PO SCH ×2 (09:02→21:37)
[2020-03-09] MEDS: PANTOprazole 40 MG TAB PO SCH (09:02)
[2020-03-09] MEDS: CITALOPRAM 40 MG TAB PO SCH (09:02)
[2020-03-09] MEDS: TOCOPHERYL, DL-ALPHA 100 UNITS CAP PO SCH (09:03)
[2020-03-09] MEDS: POLYETHYLENE (MIRALAX) 17 GM PACK PO SCH (09:03)
[2020-03-09] MEDS: POT PHOSPHATE MONOBASIC W/ SOD TAB PO SCH (09:03)
--- NOTE | 2020-03-09 10:29 | Surgery Progress Note ---
Date of Service March 09, 2020 Assessment & Plan (1) Stenosis of stoma: colostomy now functioning s/p dilatation of stoma yesterday leukocytosis resolved abdominal pain significantly improved able to tolerate soft diet this am Plan: Will monitor ostomy output throughout today will hold off on dilatation of stoma today, may require repeat dilatation tomorrow continue medical management (2) Abdominal pain: secondary to above resolving, minimal today (3) Pelvic abscess: history of intra-abdominal pelvic abscesses stable per CT continue long-term abx Dr. Belcher has seen and examined pt, agrees with above. Subjective feeling better today some abdominal soreness ostomy working well, filling up quickly tolerated soft diet this morning, tray completely empty at bedside Physical Exam Constitutional: WD/WN, vitals as above no acute distress Respiratory: normal respiratory effort Gastrointestinal (Abdomen): Inspection/Auscultation: + abdominal surgical scar (midline laparotomy scar); abdomen not distended Percussion/Palpation: + abdomen tender (mild RLQ) and abdomen soft; no guarding and abdomen not rigid LLQ colostomy with liquid brown stool present Skin: no rashes, warm and dry Psychiatric: Orientation: alert and oriented x 3 Results & Data Vital Signs (Past 12 Hours) Vital Signs Temp Pulse Resp BP Pulse Ox 03/09/20 08:14 37.1 C 87 18 111/61 95 03/08/20 23:00 37.1 C 89 18 115/62 92 Laboratory Results 03/09/20 03/09/20 Range/Units 05:24 05:24 WBC 5.13 D (4.8-10.8) K/uL RBC 2.80 L (4.2-5.4) M/uL Hgb 7.8 L (12.0-16.0) g/dL Hct 25.0 L (37-47) % MCV 89.3 (80-100) fL MCH 27.9 (25-34) pg MCHC 31.2 L (32-36) g/dL RDW Std Deviation 75.6 H (36.4-46.3) fL RDW Coeff of Raymundo 23.3 H (11.5-14.5) % Plt Count 191 (130-400) K/uL MPV 8.2 (7.4-10.4) fL Immature Gran % (Auto) 0.2 % Neut % (Auto) 91.5 % Lymph % (Auto) 5.7 % [place] % (Auto) 1.8 % Eos % (Auto) 0.6 % Baso % (Auto) 0.2 % Immature Gran # (Auto) 0.01 (0.00-0.02) K/uL Neut # (Auto) 4.70 (1.4-6.5) K/uL Lymph # (Auto) 0.29 L (1.2-3.4) K/uL [place] # (Auto) 0.09 L (0.11-0.59) K/uL Eos # (Auto) 0.03 (0-0.5) K/uL Baso # (Auto) 0.01 (0-0.2) K/uL Hypochromasia Present Anisocytosis Present Sodium 140 (136-145) mmol/L Potassium 3.1 L (3.5-5.1) mmol/L Chloride 111 H (98-107) mmol/L Carbon Dioxide 27 (21-32) mmol/L Anion Gap 3.0 (3-11) BUN 17 (7-18) mg/dl Creatinine 0.37 L (0.6-1.2) mg/dl Est Cr Clr Drug Dosing 91.2 ml/min Est GFR ( Amer) 119.5 Est GFR (Non-Af Amer) 103.1 BUN/Creatinine Ratio 47.4 H (10-20) Glucose 84 (70-99) mg/dl Calcium 7.6 L (8.5-10.1) mg/dl Phosphorus 1.7 L (2.5-4.9) mg/dl Magnesium 1.6 L (1.8-2.4) mg/dl Total Bilirubin 0.3 (0.2-1) mg/dl AST 11 L (15-37) U/L ALT 8 L (12-78) U/L Alkaline Phosphatase 40 L (45-117) U/L Total Protein 4.9 L D (6.4-8.2) gm/dl Albumin 1.6 L (3.4-5.0) gm/dl Globulin 3.3 (2.5-4.0) gm/dl Albumin/Globulin Ratio 0.5 L (0.9-2) (1) Abdominal pain Abdominal location: unspecified location Qualified Code(s): R10.9 - Unspecified abdominal pain
--- NOTE | 2020-03-09 11:17 | Hospitalist Progress Note ---
Date of Service March 09, 2020 Assessment & Plan (1) Abdominal pain: 79-year-old female with stage IV metastatic bronchogenic carcinoma and pelvic abscesses presenting with abdominal pain and constipation in the setting of a LLQ colostomy. 1) Colitis and Pelvic Abscesses -Notable history of prior SBO, diverticulitis, pelvic abscesses and s/p sigmoid colostomy in Oct 2019. - On admission CT 03/07/20: notes severe right sided constipation, colitis, persistent multifocal pelvic abscesses, ascites, high-grade bowel obstruction, there is persistent moderate left-sided hydronephrosis, a nondisplaced left acetabular fracture (stable) and unchanged osseous metastatic disease - ciprofloxacin and metronidazole for treatment of abscesses; no drainage per surgery. - prophylactic fluconazole Q3D for oral thrush with other abx onboard 2) Constipation -started on miralax 17g daily scheduled for her severe constipation. Continue with the PRN Colace ordered. - surgery consult after concern for blocked ostomy: improved fecal flow after manual dilation of ostomy with pinky finger, may need daily dilation going forward. 3) Pain and Nausea control -continue PRN IV toradol 15mg q6h for pain as pt wanted to avoid opioids last visit and stated this helped her pain -also has PRN morphine 2mg q4h PRN, and PO oxycodone 5mg q6h ordered for pain control -continue compazine 5mg q6h for nausea control. Pt states zofran does NOT help her nausea. 4) Anemia: - Hg dropped from baseline 9.8 to 7.8, to 7.3 5) Hypokalemia, hypomagnesemia, hypophosphatemia likely 2/2 malnutrition -replete as needed 6) RLL metastatic lung adenocarcinoma (dx Jun 2019): -Mets to bone and previous left hip replacement. -Prior chemo and radiation. -Previously followed by Dr. Quintero of [facility]-onc. -Recent outpatient oncology visit noted in chart- bronchogenic carcinoma responding to therapy. - continuing chemo therapy going forward; changed code status from DNR/DNI to full code 7) HTN, HLD: -On home aspirin. 8) COPD: -Life-long current smoker. -Denies ever needing any respiratory inhalers. 9) Hypothyroidism: -continue home synthroid. 10) GERD: -On home pantoprazole. 11) Depression/anxiety: -On home celexa. -Says her in December. -Will keep as needed lorazepam. Code status: Full code Diet: currently NPO DVT prophy: Lovenox SQ Dispo: Home possibly 03/10 if constipation and abd pain improved Admission and Anticipated Discharge Date Admission Date: March 08, 2020 Anticipated date of discharge: 03/08/20 Supervising Physician Co-Signing Physician Notes I personally examined the patient and verified all thorpe points of history and exam, discussed case, and agree with decision making with Dr Graham. dw dr graham, surgery input appreciated. went to see pt twice - but was asleep both times vitals noted nad heent nc at mmm breathing unlabored no accessory muscles good effort spontaneously at rest skin no rashes no pallor or icterus bowel obstruction - stomal stenosis - improved s/p digital dilation. has not needed further dilation today, follow intake anemia - likely multifactorial. continue to follow. does have heme (+) stool but multiple factors could cause this. no signs of active hemorrhage. otherwise as above Subjective Feeling much better this morning. Was able to get up and walk around the room and to bathroom. Abdominal pain improved, now 01/08 instead of 8. Review of Systems Constitutional: no fever, no chills, no body aches and no fatigue Respiratory: no cough and no dyspnea Cardiovascular: no chest pain, no dyspnea and no edema Gastrointestinal: + abdominal pain; no nausea and no vomiting Genitourinary: no dysuria Physical Exam Constitutional: + well hydrated and + thin; no acute distress Respiratory: normal respiratory effort, lungs clear to auscultation Cardiovascular: RRR, no murmur, no edema Gastrointestinal (Abdomen): Rectal Exam: + heme positive stool soft, mildly tender to palpation, colostomy bag in place with melanotic "coffee ground appearing" stool in bag, no erythema around colostomy site Results & Data Results & Data ([facility]) Vital Signs (Past 12 Hours) Vital Signs Temp Pulse Resp BP Pulse Ox 03/09/20 08:14 37.1 C 87 18 111/61 95 Laboratory Results WBC 4.02 K/uL (4.8-10.8) L 03/09/20 12:53 RBC 2.61 M/uL (4.2-5.4) L 03/09/20 12:53 Hgb 7.3 g/dL (12.0-16.0) L 03/09/20 12:53 Hct 23.0 % (37-47) L 03/09/20 12:53 MCV 88.1 fL (80-100) 03/09/20 12:53 MCH 28.0 pg (25-34) 03/09/20 12:53 MCHC 31.7 g/dL (32-36) L 03/09/20 12:53 RDW Std Deviation 75.2 fL (36.4-46.3) H 03/09/20 12:53 RDW Coeff of Raymundo 23.5 % (11.5-14.5) H 03/09/20 12:53 Plt Count 143 K/uL (130-400) 03/09/20 12:53 MPV 7.7 fL (7.4-10.4) 03/09/20 12:53 Immature Gran % (Auto) 0.2 % 03/09/20 12:53 Neut % (Auto) 86.9 % 03/09/20 12:53 Lymph % (Auto) 9.5 % 03/09/20 12:53 [place] % (Auto) 2.5 % 03/09/20 12:53 Eos % (Auto) 0.7 % 03/09/20 12:53 Baso % (Auto) 0.2 % 03/09/20 12:53 Immature Gran # (Auto) 0.01 K/uL (0.00-0.02) 03/09/20 12:53 Neut # (Auto) 3.49 K/uL (1.4-6.5) 03/09/20 12:53 Lymph # (Auto) 0.38 K/uL (1.2-3.4) L 03/09/20 12:53 [place] # (Auto) 0.10 K/uL (0.11-0.59) L 03/09/20 12:53 Eos # (Auto) 0.03 K/uL (0-0.5) 03/09/20 12:53 Baso # (Auto) 0.01 K/uL (0-0.2) 03/09/20 12:53 Hypochromasia Present 03/09/20 12:53 Anisocytosis Present 03/09/20 12:53 Ovalocytes 1+ 06/06/20 16:50 Echinocytes 1+ 03/07/20 06:12 PT 11.8 Seconds (9.0-12.0) 03/07/20 06:12 INR 1.1 (0.9-1.1) 03/07/20 06:12 Sodium 140 mmol/L (136-145) 03/09/20 05:24 Potassium 3.1 mmol/L (3.5-5.1) L 03/09/20 05:24 Chloride 111 mmol/L (98-107) H 03/09/20 05:24 Carbon Dioxide 27 mmol/L (21-32) 03/09/20 05:24 Anion Gap 3.0 (3-11) 03/09/20 05:24 BUN 17 mg/dl (7-18) 03/09/20 05:24 Creatinine 0.37 mg/dl (0.6-1.2) L 03/09/20 05:24 Est Cr Clr Drug Dosing 91.2 ml/min 03/09/20 05:24 Est GFR ( Amer) 119.5 03/09/20 05:24 Est GFR (Non-Af Amer) 103.1 03/09/20 05:24 BUN/Creatinine Ratio 47.4 (10-20) H 03/09/20 05:24 Glucose 84 mg/dl (70-99) 03/09/20 05:24 Calcium 7.6 mg/dl (8.5-10.1) L 03/09/20 05:24 Phosphorus 3.1 mg/dl (2.5-4.9) D 03/09/20 12:53 Magnesium 1.6 mg/dl (1.8-2.4) L 03/09/20 05:24 Total Bilirubin 0.3 mg/dl (0.2-1) 03/09/20 05:24 AST 11 U/L (15-37) L 03/09/20 05:24 ALT 8 U/L (12-78) L 03/09/20 05:24 Alkaline Phosphatase 40 U/L (45-117) L 03/09/20 05:24 Total Protein 4.9 gm/dl (6.4-8.2) L D 03/09/20 05:24 Albumin 1.6 gm/dl (3.4-5.0) L 03/09/20 05:24 Globulin 3.3 gm/dl (2.5-4.0) 03/09/20 05:24 Albumin/Globulin Ratio 0.5 (0.9-2) L 03/09/20 05:24 Lipase 109 U/L (73-393) 03/06/20 16:50 TSH 3.510 uIu/ml (0.300-4.500) 03/07/20 06:12 Urine Color Dark Yellow 03/07/20 05:15 Urine Appearance Clear (Clear) 03/07/20 05:15 Urine pH 5.0 (4.5-7.5) 03/07/20 05:15 Ur Specific [place] > 1.045 (1.000-1.030) H 03/07/20 05:15 Urine Protein Negative (Negative) 03/07/20 05:15 Urine Glucose (UA) Negative (Negative) 03/07/20 05:15 Urine Ketones Negative (Negative) 03/07/20 05:15 Urine Blood Negative (Negative) 03/07/20 05:15 Urine Nitrite Negative (Negative) 03/07/20 05:15 Urine Bilirubin Negative (Negative) 03/07/20 05:15 Urine Urobilinogen Negative (Negative) 03/07/20 05:15 Ur Leukocyte Esterase Negative (Negative) 03/07/20 05:15 Stool Occult Bld Scrn Positive (Negative) A 03/09/20 10:24 Resident Activity Tracking Resident Involvement: Resident Care Provided Care Provided: Adult [place] [facility] (1) Abdominal pain Abdominal location: unspecified location Qualified Code(s): R10.9 - Unspecified abdominal pain
[2020-03-09 13:03] LABS: Basophils # (auto) 0.01 K/uL (0-0.2); Basophils % (auto) 0.2 %; Eosinophils # (auto) 0.03 K/uL (0-0.5); Eosinophils % (auto) 0.7 %; Hemoglobin 7.3 g/dL (12.0-16.0); Immature Granulocytes # (auto) 0.01 K/uL (0.00-0.02); Immature Granulocytes % (auto) 0.2 %; Lymphocytes # (auto) 0.38 K/uL (1.2-3.4); Lymphocytes % (auto) 9.5 %; Mean Corpuscular Hgb Conc 31.7 g/dL (32-36); Mean Corpuscular Volume 88.1 fL (80-100); Mean Platelet Volume 7.7 fL (7.4-10.4); Monocytes % (auto) 2.5 %; Neutrophils # (auto) 3.49 K/uL (1.4-6.5); Neutrophils % (auto) 86.9 %; Platelet Count 143 K/uL (130-400); RDW Coefficient of Variation 23.5 % (11.5-14.5); RDW Standard Deviation 75.2 fL (36.4-46.3); Red Blood Count 2.61 M/uL (4.2-5.4); White Blood Count 4.02 K/uL (4.8-10.8)
[2020-03-09 13:35] LABS: Anisocytosis Present; Hypochromasia Present
[2020-03-09] MEDS ORDERED: IRON SUCROSE 200 MG in 0.9 % SODIUM CHLORIDE 100 ML IV ONE (14:13)
[2020-03-09] MEDS: HEPARIN 100 UNIT/ML 5ML FLUSH IV PRN ×2 (17:53→18:27)
[2020-03-09] MEDS: PROMETHAZINE HCL 12.5 MG in SODIUM CHLORIDE 0.9% 50 ML IV PRN (18:05)
--- NOTE | 2020-03-09 18:11 | Billing Data ---
Date of Service March 09, 2020 Coding Level of Care Code 60870 Subseq Hosp Care Lvl 2
[2020-03-09] MEDS: MoRPHine SULFATE 2 MG/ML CARP IV PRN (21:31)
[2020-03-09] MEDS: ENOXAPARIN INJ 30 MG/0.3 ML SYR SQ SCH (21:37)
[2020-03-09] MEDS: OXYCODONE HCL IR 5 MG TAB (IMMEDIATE RELEASE) PO PRN (23:32)
[2020-03-10 06:15] LABS: Hematocrit (blood only) 24.5 % (37-47); Hemoglobin 7.6 g/dL (12.0-16.0); Mean Corpuscular Hemoglobin 27.3 pg (25-34); Mean Corpuscular Volume 88.1 fL (80-100); Mean Platelet Volume 8.6 fL (7.4-10.4); Platelet Count 151 K/uL (130-400); RDW Coefficient of Variation 22.9 % (11.5-14.5); RDW Standard Deviation 73.2 fL (36.4-46.3); Red Blood Count 2.78 M/uL (4.2-5.4); White Blood Count 2.61 K/uL (4.8-10.8)
[2020-03-10] MEDS: LEVOTHYROXINE SODIUM 100 MCG TABLET PO SCH (06:30)
[2020-03-10 06:40] LABS: Anisocytosis Present; Eosinophils # (auto) 0.02 K/uL (0-0.5); Eosinophils % (auto) 0.8 %; Immature Granulocytes # (auto) 0.11 K/uL (0.00-0.02); Immature Granulocytes % (auto) 4.2 %; Lymphocytes # (auto) 0.23 K/uL (1.2-3.4); Lymphocytes % (auto) 8.8 %; Monocytes # (auto) 0.07 K/uL (0.11-0.59); Monocytes % (auto) 2.7 %; Neutrophils # (auto) 2.18 K/uL (1.4-6.5); Neutrophils % (auto) 83.5 %
[2020-03-10 06:57] LABS: Albumin Globulin Ratio 0.5 (0.9-2); Albumin Level 1.7 gm/dl (3.4-5.0); Bilirubin,Total 0.6 mg/dl (0.2-1); Calcium 7.2 mg/dl (8.5-10.1); Creatinine Clr Calc Pharmacy 93.7 ml/min; Est GFR (African American) 120.6; Globulin 3.5 gm/dl (2.5-4.0); Magnesium 1.5 mg/dl (1.8-2.4); Phosphorus 1.7 mg/dl (2.5-4.9); Potassium 2.8 mmol/L (3.5-5.1); Total Protein 5.2 gm/dl (6.4-8.2)
[2020-03-10] MEDS: ACETAMINOPHEN 325 MG TAB PO PRN (07:51)
[2020-03-10] MEDS: PROMETHAZINE HCL 12.5 MG in SODIUM CHLORIDE 0.9% 50 ML IV PRN ×2 (08:05→16:01)
[2020-03-10] MEDS: CITALOPRAM 40 MG TAB PO SCH (08:09)
[2020-03-10] MEDS: metroNIDAZOLE 500 MG TAB PO SCH ×3 (08:10→21:47)
[2020-03-10] MEDS: ASPIRIN 81 MG ECTAB PO SCH (08:10)
[2020-03-10] MEDS: POLYETHYLENE (MIRALAX) 17 GM PACK PO SCH (08:10)
[2020-03-10] MEDS: TOCOPHERYL, DL-ALPHA 100 UNITS CAP PO SCH (08:11)
[2020-03-10] MEDS: POT PHOSPHATE MONOBASIC W/ SOD TAB PO SCH (08:11)
[2020-03-10] MEDS: PANTOprazole 40 MG TAB PO SCH (08:11)
[2020-03-10] MEDS: CIPROFLOXACIN 500 MG TAB PO SCH ×2 (08:12→21:48)
[2020-03-10] MEDS: MAGNESIUM OXIDE 400 MG TAB PO SCH ×2 (08:12→20:47)
[2020-03-10] MEDS ORDERED: POTASSIUM PHOS 3 MMOL/1 ML INFUSION IV STA (08:26)
[2020-03-10] MEDS: HEPARIN 100 UNIT/ML 5ML FLUSH IV PRN ×4 (08:30→18:43)
[2020-03-10] MEDS ORDERED: POTASSIUM PHOSPHATE 21 MMOL in SODIUM CHLORIDE 0.9% 500 ML IV ONE (09:00)
[2020-03-10] MEDS ORDERED: ERGOCALCIFEROL 50,000 UNITS CAP PO SCH (09:30)
--- NOTE | 2020-03-10 09:35 | Hospitalist Progress Note ---
Date of Service March 10, 2020 Assessment & Plan (1) Abdominal pain: 79-year-old female with stage IV metastatic bronchogenic carcinoma and pelvic abscesses presenting with abdominal pain and constipation in the setting of a LLQ colostomy. 1) Vital sign changes - mildly tachycardic with 1 temp of 38C overnight. CXR showed pulmonary edema, low concern for pneumonia. likely atelectasis causing fever in context of no resp symptoms. - differential includes pseudomonas pneumonia, MRSA pneumonia 1) Colitis and Pelvic Abscesses-Notable history of prior SBO, diverticulitis, pelvic abscesses and s/p sigmoid colostomy in Oct 2019. - On admission CT 03/07/20: notes severe right sided constipation, colitis, persistent multifocal pelvic abscesses, ascites, high-grade bowel obstruction, there is persistent moderate left-sided hydronephrosis, a nondisplaced left acetabular fracture (stable) and unchanged osseous metastatic disease - ciprofloxacin and metronidazole for treatment of abscesses; no drainage per surgery. - prophylactic fluconazole Q3D for oral thrush with other abx onboard 2) Constipation -started on miralax 17g daily scheduled for her severe constipation. Continue with the PRN Colace ordered. - surgery consult after concern for blocked ostomy: improved fecal flow after manual dilation of ostomy with pinky finger, may need daily dilation going forward. 3) Pain and Nausea control -continue PRN IV toradol 15mg q6h for pain as pt wanted to avoid opioids last visit and stated this helped her pain -also has PRN morphine 2mg q4h PRN, and PO oxycodone 5mg q6h ordered for pain control -continue compazine 5mg q6h for nausea control. Pt states zofran does NOT help her nausea. 4) Anemia: - Hg dropped from baseline 9.8 to 7.8, to 7.3 5) Hypokalemia, hypomagnesemia, hypophosphatemia likely 2/2 malnutrition -replete as needed 6) RLL metastatic lung adenocarcinoma (dx Jun 2019): -Mets to bone and previous left hip replacement. -Prior chemo and radiation. -Previously [facility] by [facility]o [facility]. -Recent outpatient oncology visit noted in chart- bronchogenic carcinoma respon ding to therapy. - continuing chemo therapy going forward; changed code status from DNR/DNI to full code 7) HTN, HLD: -On home aspirin. 8) COPD: -Life-long current smoker. -Denies ever needing any respiratory inhalers. 9) Hypothyroidism: -continue home synthroid. 10) GERD: -On home pantoprazole. 11) Depression/anxiety: -On home celexa. -Says her in December. -Will keep as needed lorazepam. Code status: Full code Diet: currently NPO DVT prophy: Lovenox SQ Dispo: Home possibly 03/10 if constipation and abd pain improved Admission and Anticipated Discharge Date Admission Date: March 08, 2020 Anticipated date of discharge: 03/08/20 Supervising Physician Co-Signing Physician Notes I personally examined the patient and verified all thorpe points of history and exam, discussed case, and agree with decision making with Dr Graham. fever overnight but she didn't feel it. no sob. belly getting better. no new sx. vitals noted nad heent nc at mmm breathing unlabored no accessory muscles good effort quiet bibasilar but no r/r/w skin no rashes no pallor or icterus abd soft mild diffuse tenderness bowel obstruction - stomal stenosis - improved s/p digital dilation. appreciate surgery input severe protein calorie malntutrition - once able to take PO better will continue to encourage anemia - likely multifactorial. no signs of bleed fever - most c/w atelectasis otherwise as above Subjective feeling tired this morning. otherwise negative ROS. Review of Systems Constitutional: no fever, no chills, no body aches and no fatigue Respiratory: no cough and no dyspnea Cardiovascular: no chest pain, no dyspnea and no edema Gastrointestinal: no abdominal pain, no nausea, no vomiting, no constipation and no diarrhea/loose stools Genitourinary: no dysuria Physical Exam Constitutional: cooperative; no acute distress and not ill appearing Neck: normal visual inspection Respiratory: normal respiratory effort and able to speak in complete sentences; no respiratory distress, no labored breathing, no retractions, no co ugh and no audible wheezes Auscultation: lungs clear to auscultation bilaterally; no crackles, no rales, no rhonchi and no wheezes Cardiovascular: Rate/Rhythm: regular rate and regular rhythm Heart Sounds: normal S1 and normal S2; no gallop, no murmur and no cardiac rub Vessels: posterior tibial pulses present Extremities: no pedal edema and no edema Gastrointestinal (Abdomen): Inspection/Auscultation: abdomen normal to inspection and normal bowel sounds; abdomen not distended Percussion/Palpation: abdomen soft; abdomen nontender, no guarding, abdomen not rigid and no abdominal mass Results & Data Results & Data ([facility]) Vital Signs (Past 12 Hours) Vital Signs Temp Pulse Pulse Resp BP BP Pulse Ox 03/10/20 08:29 37.5 C 03/10/20 07:40 38 C H 105 H 20 117/61 93 03/09/20 23:40 88 03/09/20 23:21 36.9 C 118 H 18 143/67 H 92 Laboratory Results WBC 2.61 K/uL (4.8-10.8) L 03/10/20 05:40 RBC 2.78 M/uL (4.2-5.4) L 03/10/20 05:40 Hgb 7.6 g/dL (12.0-16.0) L 03/10/20 05:40 Hct 24.5 % (37-47) L 03/10/20 05:40 MCV 88.1 fL (80-100) 03/10/20 05:40 MCH 27.3 pg (25-34) 03/10/20 05:40 MCHC 31.0 g/dL (32-36) L 03/10/20 05:40 RDW Std Deviation 73.2 fL (36.4-46.3) H 03/10/20 05:40 RDW Coeff of Raymundo 22.9 % (11.5-14.5) H 03/10/20 05:40 Plt Count 151 K/uL (130-400) 03/10/20 05:40 MPV 8.6 fL (7.4-10.4) 03/10/20 05:40 Immature Gran % (Auto) 4.2 % 03/10/20 05:40 Neut % (Auto) 83.5 % 03/10/20 05:40 Lymph % (Auto) 8.8 % 03/10/20 05:40 [place] % (Auto) 2.7 % 03/10/20 05:40 Eos % (Auto) 0.8 % 03/10/20 05:40 Baso % (Auto) 0.0 % 03/10/20 05:40 Immature Gran # (Auto) 0.11 K/uL (0.00-0.02) H 03/10/20 05:40 Neut # (Auto) 2.18 K/uL (1.4-6.5) 03/10/20 05:40 Lymph # (Auto) 0.23 K/uL (1.2-3.4) L 03/10/20 05:40 [place] # (Auto) 0.07 K/uL (0.11-0.59) L 03/10/20 05:40 Eos # (Auto) 0.02 K/uL (0-0.5) 03/10/20 05:40 Baso # (Auto) 0.00 K/uL (0-0.2) 03/10/20 05:40 Hypochromasia Present 03/09/20 12:53 Anisocytosis Present 03/10/20 05:40 Ovalocytes 1+ 03/06/20 16:50 Echinocytes 1+ 03/07/20 06:12 PT 11.8 Seconds (9.0-12.0) 03/07/20 06:12 INR 1.1 (0.9-1.1) 03/07/20 06:12 Sodium 136 mmol/L (136-145) 03/10/20 05:40 Potassium 2.8 mmol/L (3.5-5.1) L 03/10/20 05:40 Chloride 104 mmol/L (98-107) 03/10/20 05:40 Carbon Dioxide 26 mmol/L (21-32) 03/10/20 05:40 Anion Gap 6.0 (3-11) 03/10/20 05:40 BUN 8 mg/dl (7-18) D 03/10/20 05:40 Creatinine 0.36 mg/dl (0.6-1.2) L 03/10/20 05:40 Est Cr Clr Drug Dosing 93.7 ml/min 03/10/20 05:40 Est GFR ( Amer) 120.6 03/10/20 05:40 Est GFR (Non-Af Amer) 104.0 03/10/20 05:40 BUN/Creatinine Ratio 23.0 (10-20) H 03/10/20 05:40 Glucose 81 mg/dl (70-99) 03/10/20 05:40 Calcium 7.2 mg/dl (8.5-10.1) L 03/10/20 05:40 Phosphorus 1.7 mg/dl (2.5-4.9) L D 03/10/20 05:40 Magnesium 1.5 mg/dl (1.8-2.4) L 03/10/20 05:40 Total Bilirubin 0.6 mg/dl (0.2-1) 03/10/20 05:40 AST 16 U/L (15-37) 03/10/20 05:40 ALT 8 U/L (12-78) L 03/10/20 05:40 Alkaline Phosphatase 39 U/L (45-117) L 03/10/20 05:40 Total Protein 5.2 gm/dl (6.4-8.2) L 03/10/20 05:40 Albumin 1.7 gm/dl (3.4-5.0) L 03/10/20 05:40 Globulin 3.5 gm/dl (2.5-4.0) 03/10/20 05:40 Albumin/Globulin Ratio 0.5 (0.9-2) L 03/10/20 05:40 Lipase 109 U/L (73-393) 03/06/20 16:50 TSH 3.510 uIu/ml (0.300-4.500) 03/07/20 06:12 Urine Color Dark Yellow 03/07/20 05:15 Urine Appearance Clear (Clear) 03/07/20 05:15 Urine pH 5.0 (4.5-7.5) 03/07/20 05:15 Ur Specific [place] > 1.045 (1.000-1.030) H 03/07/20 05:15 Urine Protein Negative (Negative) 03/07/20 05:15 Urine Glucose (UA) Negative (Negative) 03/07/20 05:15 Urine Ketones Negative (Negative) 03/07/20 05:15 Urine Blood Negative (Negative) 03/07/20 05:15 Urine Nitrite Negative (Negative) 03/07/20 05:15 Urine Bilirubin Negative (Negative) 03/07/20 05:15 Urine Urobilinogen Negative (Negative) 03/07/20 05:15 Ur Leukocyte Esterase Negative (Negative) 03/07/20 05:15 Stool Occult Bld Scrn Positive (Negative) A 03/09/20 10:24 Resident Activity Tracking Resident Involvement: Resident Care Provided Care Provided: Adult Hospital Medicine (1) Abdominal pain Abdominal location: unspecified location Qualified Code(s): R10.9 - Unspecified abdominal pain
[2020-03-10] MEDS: MoRPHine SULFATE 2 MG/ML CARP IV PRN (09:38)
[2020-03-10] MEDS: MAGNESIUM SULFATE / D5W 1 GM/100 ML BAG IV SCH ×2 (10:17→12:19)
--- NOTE | 2020-03-10 10:45 | Surgery Progress Note ---
Date of Service March 10, 2020 Assessment & Plan (1) Stenosis of stoma: colostomy functioning s/p dilatation on 03/08/20 however the stoma is clearly stenosis at skin level and fascia level. Unable to dilate at bedside due to patient discomfort. leukocytosis resolved abdominal pain resolved able to tolerate soft diet this am Plan: Dr. Belcher to reach out to her colorectal surgeon Dr. Pena at [facility] to determine options of stoma dilatation. Continue ostomy care continue medical management (2) Abdominal pain: secondary to above resolved (3) Pelvic abscess: history of intra-abdominal pelvic abscesses stable per CT continue termination clerk abx Dr. Belcher has seen and examined pt, agrees with above. Supervising Physician Co-Signing Physician Notes I interviewed and examined this patient I agree with the above note. We did dilatation again today. I discussed her case with colorectal surgery in [place]. The options are to try to keep this open with daily dilatation versus surgical revision. The patient has not decided which of though she would like to pursue. She is going to think about it we will further discuss it tomorrow. Subjective feeling better no abdominal pain colostomy continues to function per wound nurse who removed ostomy appliance prior to our exam there was mostly liquid in the ostomy bag with flecks of stool. Physical Exam Constitutional: WD/WN, vitals as above no acute distress Respiratory: normal respiratory effort Gastrointestinal (Abdomen): Inspection/Auscultation: abdomen normal to inspection; abdomen not distended Percussion/Palpation: abdomen soft; abdomen nontender, no guarding and abdomen not rigid LLQ ostomy with narrowing present at skin. Unable to completely dilatate due to patient discomfort and stenosis. Pinky finger used to try to dilate. Skin: no rashes, warm and dry Psychiatric: Orientation: alert and oriented x 3 Results & Data Vital Signs (Past 12 Hours) Vital Signs Temp Pulse Pulse Resp BP BP Pulse Ox 03/10/20 08:29 37.5 C 03/10/20 07:40 38 C H 105 H 20 117/61 93 03/09/20 23:40 88 03/09/20 23:21 36.9 C 118 H 18 143/67 H 92 (1) Abdominal pain Abdominal location: unspecified location Qualified Code(s): R10.9 - Unspecified abdominal pain
--- NOTE | 2020-03-10 11:18 | XRay Report ---
XR chest 2V PA/lateral CLINICAL HISTORY: fever, crackles on exam COMPARISON STUDY: Chest CT January 30, 2020. Chest radiograph February 20, 2020. FINDINGS: Left subclavian [id number] is in place. There has been interval development of small lef t and trace right pleural effusions. Left lower lobe airspace opacity is noted. There is no pneumotho rax. Right neck surgical clips are incidentally noted. There is pulmonary vascular congestion. IMPRESSION: 1. Interval development of small left and trace right pleural effusions. Left lower lobe airspace [place]a [place] which may reflect atelectasis or pneumonia. Radiographic follow up is recommended. 2. Pulmonary vascular congestion without overt pulmonary edema. ACT 112: Negative or not required by law. Electronically signed by: Александр Garay M.D. 03/10/2020 11:17 AM
[2020-03-10] MEDS: PROCHLORPERAZINE 5 MG in SYRINGE 4 ML IV PRN (18:42)
--- NOTE | 2020-03-10 20:12 | Billing Data ---
Date of Service March 10, 2020 Coding Level of Care Code 02398 Subseq Hosp Care Lvl 3
[2020-03-10] MEDS: OXYCODONE HCL IR 5 MG TAB (IMMEDIATE RELEASE) PO PRN (20:45)
[2020-03-10] MEDS: ENOXAPARIN INJ 30 MG/0.3 ML SYR SQ SCH (20:47)
[2020-03-10] MEDS: LORazepam 0.5 MG TAB PO PRN (22:19)
[2020-03-11] MEDS: LEVOTHYROXINE SODIUM 100 MCG TABLET PO SCH (05:34)
--- NOTE | 2020-03-11 07:48 | Hospitalist Progress Note ---
Date of Service March 11, 2020 Assessment & Plan (1) Abdominal pain: 79-year-old female with stage IV metastatic bronchogenic carcinoma and pelvic abscesses presenting with abdominal pain and constipation in the setting of a LLQ colostomy. 1) Vital sign changes - mildly tachycardic with 1 temp of 38C overnight. CXR showed pulmonary edema, low concern for pneumonia. likely atelectasis causing fever in context of no resp symptoms. - differential includes pseudomonas pneumonia, MRSA pneumonia 1) Colitis and Pelvic Abscesses-Notable history of prior SBO, diverticulitis, pelvic abscesses and s/p sigmoid colostomy in Oct 2019. - On admission CT 03/07/20: notes severe right sided constipation, colitis, persistent multifocal pelvic abscesses, ascites, high-grade bowel obstruction, there is persistent moderate left-sided hydronephrosis, a nondisplaced left acetabular fracture (stable) and unchanged osseous metastatic disease - ciprofloxacin and metronidazole for treatment of abscesses; no drainage per surgery. - prophylactic fluconazole Q3D for oral thrush with other abx onboard 2) Constipation -started on miralax 17g daily scheduled for her severe constipation. Continue with the PRN Colace ordered. - surgery consult after concern for blocked ostomy: improved fecal flow after manual dilation of ostomy with pinky finger, may need daily dilation going forward. 3) Pain and Nausea control -continue PRN IV toradol 15mg q6h for pain as pt wanted to avoid opioids last visit and stated this helped her pain -also has PRN morphine 2mg q4h PRN, and PO oxycodone 5mg q6h ordered for pain control -continue compazine 5mg q6h for nausea control. Pt states zofran does NOT help her nausea. 4) Anemia: - Hg dropped from baseline 9.8 to 7.8, to 7.3 5) Hypokalemia, hypomagnesemia, hypophosphatemia likely 2/2 malnutrition -replete as needed 6) RLL metastatic lung adenocarcinoma (dx Jun 2019): -Mets to bone and previous left hip replacement. -Prior chemo and radiation. -Previously followed by Dr. Quintero of [facility]. -Recent outpatient oncology visit noted in chart- bronchogenic carcinoma respon ding to therapy. - continuing chemo therapy going forward; changed code status from DNR/DNI to full code 7) HTN, HLD: -On home aspirin. 8) COPD: -Life-long current smoker. -Denies ever needing any respiratory inhalers. 9) Hypothyroidism: -continue home synthroid. 10) GERD: -On home pantoprazole. 11) Depression/anxiety: -On home celexa. -Says her in December. -Will keep as needed lorazepam. Code status: Full code Diet: currently NPO DVT prophy: Lovenox SQ Dispo: Home possibly 03/10 if constipation and abd pain improved Admission and Anticipated Discharge Date Admission Date: March 08, 2020 Anticipated date of discharge: 03/08/20 Results & Data Results & Data ([facility]) Vital Signs (Past 12 Hours) Vital Signs Temp Pulse Resp BP Pulse Ox 03/11/20 07:18 37.2 C 104 H 18 125/70 92 03/10/20 23:17 37.2 C 105 H 17 114/62 91 (1) Abdominal pain Abdominal location: unspecified location Qualified Code(s): R10.9 - Unspecified abdominal pain
[2020-03-11 08:59] LABS: Albumin Level 1.5 gm/dl (3.4-5.0); Calcium 7.7 mg/dl (8.5-10.1); Creatinine Clr Calc Pharmacy 120.5 ml/min; Est GFR (African American) 130.9; Magnesium 1.7 mg/dl (1.8-2.4); Potassium 2.7 mmol/L (3.5-5.1)
[2020-03-11] MEDS: PANTOprazole 40 MG TAB PO SCH (08:59)
[2020-03-11] MEDS: POLYETHYLENE (MIRALAX) 17 GM PACK PO SCH (08:59)
[2020-03-11] MEDS: CITALOPRAM 40 MG TAB PO SCH (08:59)
[2020-03-11] MEDS: metroNIDAZOLE 500 MG TAB PO SCH ×2 (08:59→13:22)
[2020-03-11] MEDS: FLUCONAZOLE 100 MG TAB PO SCH (09:00)
[2020-03-11] MEDS: CIPROFLOXACIN 500 MG TAB PO SCH (09:00)
[2020-03-11] MEDS: TOCOPHERYL, DL-ALPHA 100 UNITS CAP PO SCH (09:00)
[2020-03-11] MEDS: ASPIRIN 81 MG ECTAB PO SCH (09:00)
[2020-03-11] MEDS: POT PHOSPHATE MONOBASIC W/ SOD TAB PO SCH (09:01)
[2020-03-11 09:02] LABS: Albumin Globulin Ratio 0.4 (0.9-2); Bilirubin,Total 0.6 mg/dl (0.2-1); Globulin 3.6 gm/dl (2.5-4.0); Phosphorus 1.8 mg/dl (2.5-4.9); Total Protein 5.1 gm/dl (6.4-8.2)
[2020-03-11] MEDS: MAGNESIUM OXIDE 400 MG TAB PO SCH (09:05)
[2020-03-11] MEDS ORDERED: POTASSIUM PHOS 3 MMOL/1 ML INFUSION IV STA (11:07)
--- NOTE | 2020-03-11 11:07 | Discharge Summary ---
Date of Service March 11, 2020 Admission HPI Per Admitting Provider Aydee Burgos is a 79yo C female metastatic adenocarcinoma of the lung s/p treatment with carboplatin/pemetrexed and pembrolizumab currently on maintenance therapy with pembrolizimab and pemetrexed. She follows with Dr. Brooks, last seen on 03/04/20. She presents today with severe lower abdominal pain which started yesterday. She states pain is constant and comes in waves with associated diaphoresis, nausea and vomiting/dry heaving. She has a colostomy in place and reports minimal output since yesterday. She denies fevers but has had some chills. Denies JAEGER/CP/SOB/palpitations. Denies dysuria/hematuria and states that she is able to void without difficulty. Poor appetite and PO intake of late as well as some weakness. Otherwise, no new complaints. She has diverticular disease complicated by microperforation with abscess formation and SBO in the past. She had a sigmoid colostomy placed in October 2019. She also has intra-abdominal abscesses which are not amenable to surgical intervention - she is on PO antibiotic now with Cipro/Flagyl. ER Course: Zofran 4mg IV x 2, KCL 10mEq, Morphine 4mg IV, NSS x 1L Admission Exam Per Admitting Provider General: patient chronically ill in appearance, cachectic, NAD, AA&O, answers questions appropriately and follows commands Skin: dry and flaking, no rash/lesions HEENT: NC/AT, PERRL, EOMI, anicteric sclera, conjunctiva without injection, external ear normal to inspection and nontender, nares patent, dry mucus membranes, no oropharyngeal lesions, neck supple, trachea midline, no LAD, no thyromegaly, no JVD Heart: +S1/S2, regular, no m/r/g, port in place left chest wall, nontender to palpation Lungs: equal air entry bilaterally, no rales/rhonchi/wheezes Abd: +BS, soft, ND, tender in lower abdomen with voluntary guarding, no rebound/peritoneal signs, colostomy in place with healthy appearing stoma, minimal amount of non-bloody/non-mucoid stool in bag which patient states is from yesterday Ext: warm, 2+ pulses in UE/LE bilaterally, +clubbing of fingers, +2+ pitting edema of bilateral LE Neuro: nonfocal, patient AA&O x 4, speech intact, no facial droop, moving all extremities on command with equal strength 5/5 Principal Diagnosis stenosis of stoma, abdominal pain Discharge Exam Constitutional + well hydrated and + thin; + not well developed, + not well nourished, no acute distress and no altered mental status Neck trachea midline, no thyromegaly Respiratory normal respiratory effort, lungs clear to auscultation no labored breathing Auscultation: lungs clear to auscultation bilaterally; no crackles, no rhonchi and no wheezes Cardiovascular RRR, no murmur, no edema Heart Sounds: normal S1 and normal S2; no gallop, no murmur and no cardiac rub Extremities: no calf tenderness and no edema Gastrointestinal (Abdomen) Inspection/Auscultation: abdomen normal to inspection and normal bowel sounds; abdomen not distended Percussion/Palpation: + abdomen tender and abdomen soft; no guarding and abdomen not rigid Colostomy present in LLQ, without overlying erythema or irritation Skin no rashes, warm and dry + turgor decreased Discharge Data Allergies Allergy/AdvReac Type Severity Reaction Status Date / Time nickel Allergy Intermediate Rash Verified 03/06/20 16:49 venlafaxine AdvReac Intermediate HTN Verified 03/06/20 16:49 clarithromycin AdvReac Mild N/V Verified 03/06/20 16:49 codeine AdvReac Mild UPSET Verified 03/06/20 16:49 STOMACH hydrocodone AdvReac Mild N/V Verified 03/06/20 16:49 metronidazole [From Flagyl] AdvReac Mild Gastrointestinal Verified 03/06/20 16: 49 Upset Consultations 03/06/20 18:58 ED Decision to Admit Stat 03/06/20 19:28 ED Decision to Admit Stat 03/08/20 13:22 Consult General Surgery Routine Ordered Studies 03/06/20 16:54 CT abd pelvis IV con only Stat Hospital Course (1) Abdominal pain: 79-year-old female with stage IV metastatic bronchogenic carcinoma and pelvic abscesses presenting with abdominal pain and constipation in the setting of a LLQ colostomy. 1) Abdominal pain and colostomy - pain and bowel movements greatly improved after manual dilation of stoma by general surgery. Given option of continuing manual dilation or surgical revision, patient opted for surgical revision, which will need to be done by Dr. Pena's team in [facility]. 2) Pelvic Abscesses - continued on ciprofloxacin and metronidazole for abscess treatment throughout hospital stay. IR unable to percutaneously drain. Given previous failed treatments outpatient, agreed to continue antibiotics for 2 more weeks before discussing taper or stopping with PCP on followup. 3) Malnutrition - she required repletion of potassium, magnesium, and phosphorous on a daily basis while in the hospital most likely secondary to malnutrition and low reserve. She would likely benefit from diet supplementation with a liquid Boost or other vitamin supplementation until she can build up a caloric and energy reserve. All other medical problems managed per home regimens. Total Time Total Time Spent Total Time Spent (In Minutes): <30 Discharge Plan Discharge Items Patient Disposition: Home - Self-Care Reason For Visit: ABDOMINAL PAIN Discharge Diagnosis: Pelvic Abscess, Stenosis of Stoma, Malnutrition Activity: Resume your previous activity Non-emergency contact: Primary Care Provider and Surgeon Call non-emergency contact if: you have any medication questions, your symptoms worsen and your temperature is above 101 Follow-up/Referrals: Zion Bartholomew MD [Primary Care Provider] - 03/16/20 3:30 pm (Please, follow up with Dr. Bartholomew on SundayMarch 16 at 3:30 pm. *If you need to change this appointment, call the office at [phone].) Diet: Regular Addtl Attending Provider Instructions: You were evaluated in the hospital for worsening abdominal pain and decreased colostomy output that was found to be secondary to inflammation and stenosis/"blockage" of the ostomy. This improved after being on a liquid diet and a manual dilation of the ostomy to release the pressure in your colon and abdomen. General surgery spoke to your Colorectal Surgeon Dr. Pena with [facility], and they are able to surgically expand the stoma so this problem does not continue in the future. You should expect a call from their office in the next few days, if you do not receive a call, call them within the next week. On your last admission, you were placed on ciprofloxacin and metronidazole to treat the pelvic abscesses. Given their repeated growth and issues controlling them with shorter courses of antibiotic treatments, we will continue these for another 2 weeks. Maintain close follow up with your primary care provider. After the 2 weeks of antibiotics are over, you and your PCP can decide how and if tapering the antibiotics is an option for you. If you have decreased ostomy output, experience recurrent fevers > 38C/100.4F, worsening abdominal pain, call your PCP or surgeon and seek care. Pending Studies at Discharge: No Stand-Alone Forms: [facility], Smoking Cessation Medications and DC Order Prescriptions: Continued levothyroxine [Synthroid] 100 mcg tablet 100 mcg PO QAM Qty: 90 RF: 3 omega-3 fatty acids 1,000 mg capsule 1,000 mg PO DAILY Qty: 30 RF: 2 vitamin E (dl, acetate) 100 unit capsule 100 units PO DAILY Qty: 30 RF: 2 citalopram [Celexa] 40 mg tablet 40 mg PO QAM Qty: 90 RF: 3 folic acid 1 mg tablet 1 mg PO DIRECTED RF: 0 pantoprazole [Protonix] 40 mg tablet,delayed release (DR/EC) 40 mg PO QAM RF: 0 aspirin [Aspir-81] 81 mg Tablet,Delayed Release (Dr/Ec) 81 mg PO QAM RF: 0 magnesium oxide 400 mg (241.3 mg magnesium) tablet 400 mg PO BID Qty: 20 RF: 0 Phosphorous 250 mg tablet 1 tab PO DAILY Qty: 3 RF: 0 prochlorperazine maleate [Compazine] 5 mg tablet 5 mg PO TID PRN (Reason: nausea and vomiting) Qty: 20 RF: 0 torsemide 10 mg tablet 10 mg PO Q OTHER DAY PRN (Reason: swelling) RF: 0 fluconazole 100 mg tablet 100 mg PO Q3D 30 Days Qty: 20 RF: 0 metronidazole [Flagyl] 500 mg tablet 500 mg PO TID 14 Days Qty: 42 RF: 0 ciprofloxacin HCl 500 mg tablet 500 mg PO BID 14 Days Qty: 28 RF: 0 Discontinued lorazepam 0.5 mg tablet 0.5 mg PO DAILY PRN (Reason: anxiety) Qty: 30 RF: 1 oxycodone 5 mg tablet 5 mg PO Q6H PRN (Reason: pain) Qty: 14 RF: 0 Discharge Orders: Discharge Order (Routine); Ordered 03/11/20 Ordered By: Maria Antonia Ritter/Other Patient Handouts: Ostomy Emptying Pouch Admission Data Admit Date/Time: 03/08/20 13:48 Attending Provider: Armani Domínguez Admit Provider: Emily Hollis Primary Care Provider: Zion Bartholomew Other Providers: Emily Hollis ; Maria Antonia Graham ; Dawson Belcher Other Interventions: Discharge Summary Assessment (RN) Last Done: 03/11/20 13:59 DC Date/Time DO NOT enter until pt leaves facility: 03/11/20 16:12 Supervising Physician Co-Signing Physician Notes I personally examined the patient and verified all thorpe points of history and exam, discussed case, and agree with decision making with Dr Graham. feeling well overall and would very much like to go home. surgery input appreciated - she will be following up at [facility] for ostomy stenosis vitals noted nad heent nc at mmm breathing unlabored no accessory muscles good effort skin no rashes no pallor or icterus abd soft mild diffuse tenderness bowel obstruction - stomal stenosis - improved s/p digital dilation. appreciate surgery input - stable for home but outpt f/u surgery [facility] to more permanently remedy problem severe protein calorie malntutrition - continue to encourage PO intake - see last discharge note anemia - likely multifactorial. no signs of bleed. outpt f/u fever - most c/w atelectasis, stable for home pelvic abscesses - ongoing plan from last discharge - prolonged abx, serial surgical eval, serial CT if needed. otherwise as above Resident Activity Tracking Resident Involvement: Resident Care Provided Care Provided: Adult Hospital Medicine
[2020-03-11] MEDS: PROMETHAZINE HCL 12.5 MG in SODIUM CHLORIDE 0.9% 50 ML IV PRN (11:17)
--- NOTE | 2020-03-11 11:26 | Surgery Progress Note ---
Date of Service March 11, 2020 Assessment & Plan (1) Stenosis of stoma: colostomy functioning s/p dilatation on 03/08/20 however the stoma is clearly stenosed at skin level and fascia level. Unable to dilate completely at bedside due to patient discomfort. leukocytosis resolved abdominal pain resolved able to tolerate regular diet this am Plan: Okay from surgical standpoint for discharge will need to follow-up with Dr. Pena with [facility] for possible revision of ostomy given stenosis. Dr. Pena contacted by Dr. Belcher yesterday, their office will contact patient for follow-up. Would advise good bowel regimen to avoid constipation on discharge as she presented with stercoral colitis (2) Abdominal pain: secondary to above resolved (3) Pelvic abscess: history of intra-abdominal pelvic abscesses stable per CT continue intermediate card tender abx Dr. Belcher has seen and examined pt, agrees with above. Supervising Physician Co-Signing Physician Notes I interviewed and examined this patient and agree with the above note. The colostomy continues to function although the opening is still fairly tight. She is interested in being evaluated for revision. I contacted Dr. Pena in [place] and their office will contact the patient to make an appointment for that evaluation. She is tolerating a diet and can be discharged today from our standpoint. Subjective feeling good some lower abdominal tenderness no vomiting tolerated regular diet ostomy working ready to go home Physical Exam Constitutional: WD/WN, vitals as above no acute distress Skin: no rashes, warm and dry Psychiatric: A+Ox3, euthymic affect Results & Data Vital Signs (Past 12 Hours) Vital Signs Temp Pulse Resp BP Pulse Ox 03/11/20 07:18 37.2 C 104 H 18 125/70 92 Laboratory Results 03/11/20 Range/Units 08:18 Sodium 133 L (136-145) mmol/L Potassium 2.7 L (3.5-5.1) mmol/L Chloride 101 (98-107) mmol/L Carbon Dioxide 25 (21-32) mmol/L Anion Gap 7.0 (3-11) BUN 8 (7-18) mg/dl Creatinine 0.28 L (0.6-1.2) mg/dl Est Cr Clr Drug Dosing 120.5 ml/min Est GFR ( Amer) 130.9 Est GFR (Non-Af Amer) 113.0 BUN/Creatinine Ratio 29.0 H (10-20) Glucose 75 (70-99) mg/dl Calcium 7.7 L (8.5-10.1) mg/dl Phosphorus 1.8 L (2.5-4.9) mg/dl Magnesium 1.7 L (1.8-2.4) mg/dl Total Bilirubin 0.6 (0.2-1) mg/dl AST 15 (15-37) U/L ALT 7 L (12-78) U/L Alkaline Phosphatase 37 L (45-117) U/L Total Protein 5.1 L (6.4-8.2) gm/dl Albumin 1.5 L (3.4-5.0) gm/dl Globulin 3.6 (2.5-4.0) gm/dl Albumin/Globulin Ratio 0.4 L (0.9-2) (1) Abdominal pain Abdominal location: unspecified location Qualified Code(s): R10.9 - Unspecified abdominal pain
[2020-03-11] MEDS: MAGNESIUM SULFATE / D5W 1 GM/100 ML BAG IV SCH ×2 (11:45→13:48)
[2020-03-11] MEDS ORDERED: POTASSIUM PHOSPHATE 24 MMOL in SODIUM CHLORIDE 0.9% 500 ML IV ONE (12:00)
[2020-03-11] MEDS: OXYCODONE HCL IR 5 MG TAB (IMMEDIATE RELEASE) PO PRN (13:53)
[2020-03-11] MEDS: HEPARIN 100 UNIT/ML 5ML FLUSH IV PRN ×2 (15:25→16:02)
--- NOTE | 2020-03-11 19:43 | Billing Data ---
Date of Service March 11, 2020 Coding Level of Care Code D/C Day Management <30 mins
== END 2020-03-11 16:12 | disposition home or self-care (01) | DRG 393 ==
LOC: ED 16:04 → 3N 16:04 → SUATTDRO 20:08 → 3N 20:58

== ENCOUNTER 2020-03-12 18:15 | Inpatient (IN) ==
[2020-03-12] MEDS ORDERED: SODIUM CHLORIDE 0.9% 1000ML 1,000 ML IV ONE (19:19)
--- NOTE | 2020-03-12 19:37 | XRay Report ---
XR chest 1V portable HISTORY: 79 years-old Female SEPSIS acute sepsis COMPARISON: Chest radiograph 03/10/2020 TECHNIQUE: Portable AP view of the chest FINDINGS: Cardiac silhouette is unchanged in size. Calcified plaque of the thoracic aortic arch. Mild pulmonary vascular congestion is suggested. Left subclavian [id number]-t-[id number] catheter. No pneumothorax. Small lef t and trace right pleural effusions with mild bibasilar densities suggestive of atelectasis. Degenera tive changes of the shoulders and spine. Left shoulder rotator cuff calcific tendinosis. IMPRESSION: 1. Mild pulmonary vascular congestion. 2. Small left and trace right pleural effusions redemonstrated with minimal bibasilar densities sugge stive of atelectasis. ACT 112: Negative or not required by law. The above report was generated using voice recognition software. It may contain grammatical, syntax o r spelling errors. Electronically signed by: Thierno Brown M.D. 03/12/2020 7:35 PM
[2020-03-12 20:04] LABS: Partial Thromboplastin Ratio 1.2; Partial Thromboplastin Time 33.9 Seconds (21.0-31.0); Prothrombin Time 10.9 Seconds (9.0-12.0)
[2020-03-12 20:14] LABS: Alanine Aminotransferase 6 U/L (12-78); Albumin Level 1.6 gm/dl (3.4-5.0); BUN Creatinine Ratio 25.8 (10-20); Blood Urea Nitrogen 11 mg/dl (7-18); Calcium 7.7 mg/dl (8.5-10.1); Carbon Dioxide 29 mmol/L (21-32); Chloride 100 mmol/L (98-107); Est GFR (African American) 113.7; Est GFR (Non-African American) 98.1; Glucose 99 mg/dl (70-99); Magnesium 1.5 mg/dl (1.8-2.4); Potassium 2.7 mmol/L (3.5-5.1); Sodium 134 mmol/L (136-145)
[2020-03-12 20:21] LABS: Albumin Globulin Ratio 0.4 (0.9-2); Alkaline Phosphatase 40 U/L (45-117); Aspartate Aminotransferase 16 U/L (15-37); Bilirubin,Total 0.4 mg/dl (0.2-1); Globulin 3.8 gm/dl (2.5-4.0); Total Protein 5.4 gm/dl (6.4-8.2); Troponin I < 0.015 ng/ml (0-0.045)
[2020-03-12 20:26] LABS: Mean Corpuscular Hgb Conc 32.3 g/dL (32-36)
[2020-03-12] MEDS ORDERED: OPTIRAY 320 125ml IV PRN (20:45)
[2020-03-12 20:53] LABS: Hematocrit (blood only) 22.3 % (37-47); Hemoglobin 7.2 g/dL (12.0-16.0); Mean Corpuscular Hemoglobin 28.3 pg (25-34); Mean Corpuscular Volume 87.8 fL (80-100); RDW Coefficient of Variation 21.9 % (11.5-14.5); RDW Standard Deviation 69.7 fL (36.4-46.3); Red Blood Count 2.54 M/uL (4.2-5.4); White Blood Count 0.58 K/uL (4.8-10.8)
[2020-03-12 20:56] LABS: Mean Platelet Volume 8.4 fL (7.4-10.4); Platelet Count 53 K/uL (130-400)
[2020-03-12 20:57] LABS: ALC (manual) 0.21 K/uL (1.2-3.4); ANC (manual) 0.27 K/uL (1.4-6.5); Anisocytosis Present; Eosinophils # (manual) 0.05 K/uL (0-0.5); Lymphocytes # (manual) 0.21 K/uL (1.2-3.4); Monocytes # (manual) 0.05 K/uL (0.11-0.59); Neutrophils # (manual) 0.27 K/uL (1.4-6.5); Platelet Estimate Decreased (Normal)
[2020-03-12] MEDS: MAGNESIUM SULFATE / D5W 1 GM/100 ML BAG IV SCH ×2 (21:00→22:13)
--- NOTE | 2020-03-12 21:05 | CT Scan Report ---
CT head/brain wo con CLINICAL HISTORY: 79 years-old Female with ams. Acutely altered mental status TECHNIQUE: Multiple axial CT images of the head were obtained without contrast. A dose lowering tech nique was utilized adhering to the principles of ALARA. CT DOSE: 638.56 mGycm COMPARISON: Head CT 06/30/2019 FINDINGS: No acute intracranial hemorrhage, midline shift, intracranial mass, hydrocephalus, territorial ischem ia or abnormal extra-axial collection. Mild age-related involutional changes. Patchy white matter hyp odensities suggest chronic microvascular ischemic disease. The calvarium is intact. Prior bilateral lens replacement. The paranasal sinuses, mastoid air cells, and middle ear cavities are clear. IMPRESSION: No acute intracranial abnormality or calvarial fracture. ACT 112: Negative or not required by law. The above report was generated using voice recognition software. It may contain grammatical, syntax o r spelling errors. Electronically signed by: Thierno Brown M.D. 03/12/2020 9:04 PM
[2020-03-12 21:09] LABS: Appearance Urine Turbid (Clear); Bacteria Urine Automated 1+ (Negative); Bilirubin Urine Negative (Negative); Blood Urine 2+ (Negative); Color Urine Dark Yellow; Glucose Urine UA Negative (Negative); Ketones Urine Negative (Negative); Leukocyte Esterase Urine 3+ (Negative); Nitrite Urine Negative (Negative); Protein Urine 1+ (Negative); Specific Gravity Urine 1.019 (1.000-1.030); Urobilinogen Urine Negative (Negative); WBC Urine Automated >30 /hpf (0-5); pH Urine 5.5 (4.5-7.5)
[2020-03-12 21:20] LABS: RBC Urine Automated >30 /hpf (0-4)
--- NOTE | 2020-03-12 21:20 | CT Scan Report ---
CT angio chest PE protocol CT DOSE: 959.52 mGycm HISTORY: 79 years-old Female with cp back pain cancer patient. Acute chest and back pain in a patie nt with history of lung cancer. TECHNIQUE: Multiple CTA images of the chest were obtained after the intravenous administration of 120 ml Optiray 320. Coronal and sagittal MIPS were obtained from the axial data set and were submitted for review. All measurements were obtained according to NASCET criteria. A dose lowering technique w as utilized adhering to the principles of ALARA. COMPARISON: CT abdomen and pelvis of same day, chest CT 01/30/2020 FINDINGS: CTA: The heart is mildly enlarged. Pericardial effusion measuring up to 10 mm anteriorly as increased in s ize, previously measuring 3.5 mm. Coronary artery calcifications. No thoracic aortic aneurysm or diss ection. Severe mixed plaque of the thoracic aortic arch results in approximately 50% luminal narrowin g of the proximal left subclavian artery. The pulmonary arterial tree is opacified to level the subse gmental branches and demonstrates no filling defects to suggest pulmonary thromboembolic disease. CT CHEST: Unremarkable thyroid. No new adenopathy. 9 mm subcarinal lymph node previously measured 8 mm. Trace r ight and small left pleural effusions as well as mild generalized body wall edema are new from compar mari. Moderate emphysema. No pneumothorax. Bronchial wall thickening suggestive of bronchitis versus reactive airway disease. Spiculated masslike opacity of the right perihilar distribution is redemonst rated, previously measured at approximately 2.2 x 1.3 cm, now measuring 2.3 x 1.3 cm, generally uncha nged. Dependent consolidation of the left lower lobe suggest compressive atelectasis. Unchanged 5 mm solid nodule the basal left lower lobe, image 105 series 4. Unchanged 4 mm solid nodule of the inferi or segment lingula. Subpleural nodule of the right middle lobe is also unchanged. Linear scarlike opa city of the right lung base on image 121 is unchanged. No new or enlarging nodules are identified. Ce ntral airways appear patent. Small volume of abdominal ascites. Small hiatal hernia. Scattered sclerotic skeletal lesions are rede monstrated, specifically involving the left glenoid, and posterior left seventh rib. No acute patholo gic fracture identified. IMPRESSION: 1. Fluid overload manifested by new trace right and small left pleural effusions with generalized bod y wall edema, small volume of abdominal ascites and moderate pericardial effusion. 2. Stable metastatic disease within the chest as detailed above. 3. No evidence of pulmonary thromboembolic disease. 4. Additional findings as above. ACT 112: Negative or not required by law. The above report was generated using voice recognition software. It may contain grammatical, syntax o r spelling errors. Electronically signed by: Thierno Brown M.D. 03/12/2020 9:19 PM
--- NOTE | 2020-03-12 21:29 | Emergency Department Note ---
History of Present Illness General Chief complaint: Back Injury/Pain Stated complaint: INFECTION IN COLOSTOMY BAG Time Seen by Provider: 03/12/20 19:09 History of Present Illness Provider complaint: Abdominal and back pain Onset (ago): day(s) 2 Location: back and abdomen Severity: severe Maximum Pain Intensity: 9 Current Pain Intensity: 9 Quality: + sharp 79-year-old female with stage IV lung cancer presents with abdominal and back pain. She states her pain is 10 out of 10. No radiation. No nausea or vomiting. Home Medications Home Medications Medication Instructions Recorded Confirmed Type folic acid 1 mg PO DAILY 08/04/19 03/12/20 History pantoprazole [Protonix] 40 mg PO QAM 08/30/19 03/12/20 History levothyroxine 100 mcg tablet 100 mcg PO QAM #90 tab 09/12/19 03/12/20 Rx aspirin [Aspir-81] 81 mg PO QAM 09/20/19 03/12/20 History citalopram 40 mg tablet 40 mg PO QAM #90 tab 01/09/20 03/12/20 Rx magnesium oxide 400 mg PO BID #20 tab 02/29/20 03/12/20 Rx torsemide 10 mg PO Q2D PRN 03/06/20 03/12/20 History ciprofloxacin HCl 500 mg PO BID 14 Days #28 tab 03/11/20 03/12/20 Rx fluconazole 100 mg PO Q3D 30 Days #20 tab 03/11/20 03/12/20 Rx oxycodone 5 mg PO Q6H PRN 03/12/20 03/12/20 History potassium chloride 10 meq PO QAM 03/12/20 03/12/20 History prochlorperazine maleate 5 mg PO TID PRN 03/12/20 03/12/20 History [Compazine] sod phos di, mono-K phos mono 1 tab PO DAILY 03/12/20 03/12/20 History [Virt-Phos 250 Neutral] Allergies Allergy/AdvReac Type Severity Reaction Status Date / Time nickel Allergy Intermediate Rash Verified 03/12/20 21:12 venlafaxine AdvReac Intermediate Hypertensio Verified 03/12/20 21:12 n,Headache clarithromycin AdvReac Mild Nausea/Vomi Verified 03/12/20 21:12 ting codeine AdvReac Mild UPSET Verified 03/12/20 21:12 STOMACH hydrocodone AdvReac Mild Nausea/Vomi Verified 03/12/20 21:12 ting metronidazole [From Flagyl] AdvReac Mild Gastrointestinal Verified 03/12/20 21:12 Upset Past Med/Surg History Medical History Adenocarcinoma, lung Adrenal cortical adenoma (Acute) Anxiety Arthritis Biceps tendonitis Cataract Depression (Acute) Esophageal dyskinesia Essential hypertriglyceridemia (Acute) Fatigue Gastritis Gastroesophageal reflux disease (Acute) History of bronchitis History of diverticulitis (Resolved) Hyperlipidemia Hypothyroidism (Acute) Intermittent hydrarthrosis of elbow Irritable bowel syndrome (Acute) Lung cancer NEW DX Metastatic bone cancer radiation treatments completed 08/25/19. Olecranon bursitis Osteoarthritis Osteopenia (Acute) Pneumonia hx Sialoadenitis Surgical History History of cataract surgery RT/LEFT History of colonoscopy Dr. Veronica 12/2011 History of dilatation and curettage History of discectomy CERVICAL (GOOD ROM) History of repair of rotator cuff RT History of tooth extraction S/P section X 1 S/P hip replacement left. 07/02/2019. SAB with MAC. no issues. Family History Family/Other Family history of diabetes mellitus Brother Family hx of colon cancer Mother , age 66 Diabetes Cancer ovarian Coronary heart disease had acute AK which led to her Sister Cancer Family/Other Breast cancer Father , age 49 Suicide Alcoholism Social History Preferred Language: Georgian Communication Ability: Effective Visual Impairment: No Limitations Hearing Ability: Normal Highway Traffic Control Technician Required: No Beliefs That Will Affect Care: None marital status: Unknown Current Living Situation: Family Current Living Situation Comment: lives with grandson current occupational status: retired current occupation: worked at [employer] ([employer]) other: 1 daughter Feels Safe at Home: Yes Smoking Status: Former smoker Tobacco Type: cigarettes ; Age Started Using Tobacco: 21 ; packs per day: 0.5 ; Cigarettes Per Day: 6 ; Second Hand Exposure: No ; Hx Alcohol Use: No Hx Substance Use: No Childhood Exposure to Second-Hand Smoke: Yes (both parents) caffeine: Yes Dental Care, Regularly: No Seatbelt Use: always Review of Systems Other (Patient appears very tired and is not answering all questions.) Physical Exam Vital Signs Vital Signs - 24 hr 03/12/20 18:21 03/12/20 19:48 03/12/20 19:55 Temperature 37.1 C Temperature Source Oral Pulse Rate 111 H Pulse Rate [Apical] 95 H Pulse Rhythm Regular Pulse Strength Normal Respiratory Rate 20 14 Respiratory Effort / Characteristics Non-Labored Non-Labored Respiratory Depth Normal Normal Respiratory Pattern Regular Blood Pressure 104/67 Blood Pressure [Right Arm] 106/49 L Blood Pressure Mean 79 Blood Pressure Mean [Right Arm] 68 Blood Pressure Position Sitting Blood Pressure Position [Right Arm] Pulse Oximetry 94 95 95 Oxygen Delivery Method Room Air Room Air Room Air Sepsis Recent Fever Within 48 Hours No Sepsis Action Taken by Nursing No Action Required 03/12/20 21:01 Temperature Temperature Source Pulse Rate Pulse Rate [Apical] 93 H Pulse Rhythm Pulse Strength Respiratory Rate 16 Respiratory Effort / Characteristics Non-Labored Respiratory Depth Normal Respiratory Pattern Blood Pressure Blood Pressure [Right Arm] 107/53 L Blood Pressure Mean Blood Pressure Mean [Right Arm] 71 Blood Pressure Position Blood Pressure Position [Right Arm] Lying Pulse Oximetry 97 Oxygen Delivery Method Room Air Sepsis Recent Fever Within 48 Hours Sepsis Action Taken by Nursing Physical Exam GENERAL: Patient appears extremely tired not answering all questions however she is alert and oriented x3 and will answer if talk to loudly. NECK: Supple CV: Normal rate, regular rhythm, normal heart sounds and intact distal pulses. There is no peripheral edema. Palpable radial pulses bue. PULM/CHEST: Effort normal and breath sounds normal. No respiratory distress. No stridor. She has no wheezes. She has no rales. -Chest Wall: She exhibits no tenderness. ABD: The abdomen is soft. Ostomy bag present. NEURO: She is alert and appears lethargic. Motor and sensation grossly intact. Course Course 191: The patient was evaluated in room C10. A complete history and physical exam was performed. Cardiac monitoring: An order was placed for continuous cardiac monitoring. The monitor shows a rate of 90 with sinus rhythm I was informed by the nursing staff that the patient's daughter is adventure education teacher here name Aydee and she would like me to call her. I called her using the hospital phone by daily extension 0. Only told me that the patient has been feeling weak since being discharged from the hospital. She still reports that she is not been eating and appeared more confused. She denies that the patient took an increase in her pain medication. She states that the patient has a long history of intra-abdominal abscesses and recently had a dilatation of her colostomy done by Dr. Belcher, she is waiting to be evaluated at [facility] for reversal of her colostomy. 2148: Vital signs stable. Labs show severely low potassium and magnesium levels. This is thought to be why the patient is feeling so weak. White blood cell count is low at 0.58, this is thought to be due to the patient's chemotherapy. Hemoglobin is 7.2. Patient is not febrile. Her imaging shows no acute process except for fluid overloaded. Patient will be admitted to the hospitalist service. [facility] hospitalist Dr. Collado notified. 2207: Vital signs stable. Urinalysis does appear possibly infected. Given the patient neutropenia, she will be treated with cefepime [address] Collado is aware and agrees. Administered Medications Magnesium Sulfate/Dextrose (Magnesium Sulfate / D5w) 1 gm in 100 mls @ 100 mls/hr IV Q1H JOSE E Stop: 03/12/20 22:21 Last Admin: 03/12/20 21:00 Dose: 100 mls/hr Documented by: [id number] Ioversol (Optiray 320 125ml) 120 ml IV ONCE PRN PRN Reason: Interaction Checking Stop: 03/16/20 20:44 Last Admin: 03/12/20 20:46 Dose: 120 ml Documented by: [id number] Discontinued Medications Sodium Chloride (Nss 1000ml) 1,000 mls @ 999 mls/hr IV .Q1H1M ONE Stop: 03/12/20 20:19 Last Infusion: 03/12/20 20:50 Dose: 0 mls/hr Documented by: [id number] Admin: 03/12/20 19:48 Dose: 999 mls/hr Documented by: [id number] Medical Decision Making Laboratory Data Result diagrams: 03/12/20 19:37 03/12/20 19:37 Lab Results 03/12/20 03/12/20 03/12/20 Range/Units 19:37 19:37 19:37 WBC 0.58 L* (4.8-10.8) K/uL RBC 2.54 L (4.2-5.4) M/uL Hgb 7.2 L (12.0-16.0) g/dL Hct 22.3 L (37-47) % MCV 87.8 (80-100) fL MCH 28.3 (25-34) pg MCHC 32.3 (32-36) g/dL RDW Std Deviation 69.7 H (36.4-46.3) fL RDW Coeff of Raymundo 21.9 H (11.5-14.5) % Plt Count 53 L (130-400) K/uL MPV 8.4 (7.4-10.4) fL Neutrophils % (Manual) 47.0 % Band Neutrophils % 0.0 % Lymphocytes % (Manual) 36.0 % Prolymphocyte % 0.0 % Reactive Lymphs % (Man) 0.0 % Monocytes % (Manual) 8.0 % Eosinophils % (Manual) 9.0 % Plasma Cell % (Manual) 0.0 % Neutrophils # (Manual) 0.27 L (1.4-6.5) K/uL Total Absolute Neuts 0.27 L* (1.4-6.5) K/uL Lymphocytes # (Manual) 0.21 L (1.2-3.4) K/uL Total Abs Lymphocytes 0.21 L (1.2-3.4) K/uL Monocytes # (Manual) 0.05 L (0.11-0.59) K/uL Eosinophils # (Manual) 0.05 (0-0.5) K/uL Large Granular Lymphs 0.0 % Platelet Estimate Decreased L (Normal) Anisocytosis Present PT 10.9 (9.0-12.0) Seconds INR 1.0 (0.9-1.1) APTT 33.9 H (21.0-31.0) Seconds PTT Ratio 1.2 Sodium (136-145) mmol/L Potassium (3.5-5.1) mmol/L Chloride (98-107) mmol/L Carbon Dioxide (21-32) mmol/L Anion Gap (3-11) BUN (7-18) mg/dl Creatinine (0.6-1.2) mg/dl Est Cr Clr Drug Dosing Est GFR ( Amer) Est GFR (Non-Af Amer) BUN/Creatinine Ratio (10-20) Glucose (70-99) mg/dl Lactate (0.4-2.0) mmol/L Calcium (8.5-10.1) mg/dl Magnesium (1.8-2.4) mg/dl Total Bilirubin (0.2-1) mg/dl AST (15-37) U/L ALT (12-78) U/L Alkaline Phosphatase (45-117) U/L Troponin I (0-0.045) ng/ml Total Protein (6.4-8.2) gm/dl Albumin (3.4-5.0) gm/dl Globulin (2.5-4.0) gm/dl Albumin/Globulin Ratio (0.9-2) Procalcitonin 0.54 H (0-0.5) ng/ml Urine Color Urine Appearance (Clear) Urine pH (4.5-7.5) Ur Specific [place] (1.000-1.030) Urine Protein (Negative) Urine Glucose (UA) (Negative) Urine Ketones (Negative) Urine Blood (Negative) Urine Nitrite (Negative) Urine Bilirubin (Negative) Urine Urobilinogen (Negative) Ur Leukocyte Esterase (Negative) Urine WBC (Auto) (0-5) /hpf Urine RBC (Auto) (0-4) /hpf U Hyaline Cast (Auto) (0-5) /lpf U Epithel Cells (Auto) (0-5) /lpf Urine Bacteria (Auto) (Negative) Urine Yeast (None Prsent) 03/12/20 03/12/20 03/12/20 Range/Units 19:37 19:37 20:35 WBC (4.8-10.8) K/uL RBC (4.2-5.4) M/uL Hgb (12.0-16.0) g/dL Hct (37-47) % MCV (80-100) fL MCH (25-34) pg MCHC (32-36) g/dL RDW Std Deviation (36.4-46.3) fL RDW Coeff of Raymundo (11.5-14.5) % Plt Count (130-400) K/uL MPV (7.4-10.4) fL Neutrophils % (Manual) % Band Neutrophils % % Lymphocytes % (Manual) % Prolymphocyte % % Reactive Lymphs % (Man) % Monocytes % (Manual) % Eosinophils % (Manual) % Plasma Cell % (Manual) % Neutrophils # (Manual) (1.4-6.5) K/uL Total Absolute Neuts (1.4-6.5) K/uL Lymphocytes # (Manual) (1.2-3.4) K/uL Total Abs Lymphocytes (1.2-3.4) K/uL Monocytes # (Manual) (0.11-0.59) K/uL Eosinophils # (Manual) (0-0.5) K/uL Large Granular Lymphs % Platelet Estimate (Normal) Anisocytosis PT (9.0-12.0) Seconds INR (0.9-1.1) APTT (21.0-31.0) Seconds PTT Ratio Sodium 134 L (136-145) mmol/L Potassium 2.7 L (3.5-5.1) mmol/L Chloride 100 (98-107) mmol/L Carbon Dioxide 29 (21-32) mmol/L Anion Gap 5.0 (3-11) BUN 11 (7-18) mg/dl Creatinine 0.43 L (0.6-1.2) mg/dl Est Cr Clr Drug Dosing Not Reportable Est GFR ( Amer) 113.7 Est GFR (Non-Af Amer) 98.1 BUN/Creatinine Ratio 25.8 H (10-20) Glucose 99 (70-99) mg/dl Lactate 0.8 (0.4-2.0) mmol/L Calcium 7.7 L (8.5-10.1) mg/dl Magnesium 1.5 L (1.8-2.4) mg/dl Total Bilirubin 0.4 (0.2-1) mg/dl AST 16 (15-37) U/L ALT 6 L (12-78) U/L Alkaline Phosphatase 40 L (45-117) U/L Troponin I < 0.015 (0-0.045) ng/ml Total Protein 5.4 L (6.4-8.2) gm/dl Albumin 1.6 L (3.4-5.0) gm/dl Globulin 3.8 (2.5-4.0) gm/dl Albumin/Globulin Ratio 0.4 L (0.9-2) Procalcitonin (0-0.5) ng/ml Urine Color Dark Yellow Urine Appearance Turbid A (Clear) Urine pH 5.5 (4.5-7.5) Ur Specific [place] 1.019 (1.000-1.030) Urine Protein 1+ H (Negative) Urine Glucose (UA) Negative (Negative) Urine Ketones Negative (Negative) Urine Blood 2+ H (Negative) Urine Nitrite Negative (Negative) Urine Bilirubin Negative (Negative) Urine Urobilinogen Negative (Negative) Ur Leukocyte Esterase 3+ H (Negative) Urine WBC (Auto) >30 H (0-5) /hpf Urine RBC (Auto) >30 H (0-4) /hpf U Hyaline Cast (Auto) 1-5 (0-5) /lpf U Epithel Cells (Auto) 10-20 H (0-5) /lpf Urine Bacteria (Auto) 1+ H (Negative) Urine Yeast Present A (None Prsent) Imaging Data Radiologist's Impression: CT head/brain wo con CLINICAL HISTORY: 79 years-old Female with ams. Acutely altered mental status TECHNIQUE: Multiple axial CT images of the head were obtained without contrast. A dose lowering technique was utilized adhering to the principles of ALARA. CT DOSE: 638.56 mGycm COMPARISON: Head CT 06/30/2019 FINDINGS: No acute intracranial hemorrhage, midline shift, intracranial mass, hydrocephalus, territorial ischemia or abnormal extra-axial collection. Mild age-related involutional changes. Patchy white matter hypodensities suggest chronic microvascular ischemic disease. The calvarium is intact. Prior bilateral lens replacement. The paranasal sinuses, mastoid air cells, and middle ear cavities are clear. IMPRESSION: No acute intracranial abnormality or calvarial fracture. ACT 112: Negative or not required by law. The above report was generated using voice recognition software. It may contain grammatical, syntax or spelling errors. Electronically signed by: Thierno Brown M.D. 03/12/2020 9:04 PM Dictated: 03/12/202100 Transcribed: 03/12/202100 CT angio chest PE protocol CT DOSE: 959.52 mGycm HISTORY: 79 years-old Female with cp back pain cancer patient. Acute chest and back pain in a patient with history of lung cancer. TECHNIQUE: Multiple CTA images of the chest were obtained after the intravenous administration of 120 ml Optiray 320. Coronal and sagittal MIPS were obtained from the axial data set and were submitted for review. All measurements were obtained according to NASCET criteria. A dose lowering technique was utilized adhering to the principles of ALARA. COMPARISON: CT abdomen and pelvis of same day, chest CT 01/30/2020 FINDINGS: CTA: The heart is mildly enlarged. Pericardial effusion measuring up to 10 mm anteriorly as increased in size, previously measuring 3.5 mm. Coronary artery calcifications. No thoracic aortic aneurysm or dissection. Severe mixed plaque of the thoracic aortic arch results in approximately 50% luminal narrowing of the proximal left subclavian artery. The pulmonary arterial tree is opacified to level the subsegmental branches and demonstrates no filling defects to suggest pulmonary thromboembolic disease. CT CHEST: Unremarkable thyroid. No new adenopathy. 9 mm subcarinal lymph node previously measured 8 mm. Trace right and small left pleural effusions as well as mild generalized body wall edema are new from comparison. Moderate emphysema. No pneumothorax. Bronchial wall thickening suggestive of bronchitis versus reactive airway disease. Spiculated masslike opacity of the right perihilar distribution is redemonstrated, previously measured at approximately 2.2 x 1.3 cm, now measuring 2.3 x 1.3 cm, generally unchanged. Dependent consolidation of the left lower lobe suggest compressive atelectasis. Unchanged 5 mm solid nodule the basal left lower lobe, image 105 series 4. Unchanged 4 mm solid nodule of the inferior segment lingula. Subpleural nodule of the right middle lobe is also unchanged. Linear scarlike opacity of the right lung base on image 121 is unchanged. No new or enlarging nodules are identified. Central airways appear patent. Small volume of abdominal ascites. Small hiatal hernia. Scattered sclerotic skeletal lesions are redemonstrated, specifically involving the left glenoid, and posterior left seventh rib. No acute pathologic fracture identified. IMPRESSION: 1. Fluid overload manifested by new trace right and small left pleural effusions with generalized body wall edema, small volume of abdominal ascites and moderate pericardial effusion. 2. Stable metastatic disease within the chest as detailed above. 3. No evidence of pulmonary thromboembolic disease. 4. Additional findings as above. ACT 112: Negative or not required by law. The above report was generated using voice recognition software. It may contain grammatical, syntax or spelling errors. Electronically signed by: Thierno Brown M.D. 03/12/2020 9:19 PM Dictated: 03/12/202106 Transcribed: 03/12/202106 ABDOMEN AND PELVIS CT WITH IV CONTRAST HISTORY: Acute right lower quadrant abdominal pain. History of lung cancer and diverting left lower quadrant colostomy. abd pain TECHNIQUE: Multiaxial CT images of the abdomen and pelvis were performed following the IV administration of 120 cc of Optiray 320, A dose lowering technique was utilized adhering to the principles of ALARA. COMPARISON STUDY: CT abdomen and pelvis 03/06/2020 FINDINGS: Small left and trace right pleural effusions with dependent left basilar consolidation suggestive of compressive atelectasis. No pneumatosis or pneumoperitoneum identified. Moderate pericardial effusion. Spleen is prominent in size. Unremarkable pancreas. Unchanged 2.1 cm left adrenal gland lesion. Mild wall thickening of the gallbladder. No hepatic mass lesions identified. Patency of the hepatic and portal veins. There are a few scattered hypodensities of the kidneys redemonstrated, largest of which measures 1.8 cm on the right. Most of these are too small to characterize however suggestive of probable cysts. Mild nonspecific urothelial thickening of the proximal ureters. Pelvic structures including the urinary bladder suboptimally visualized secondary to streak artifact from left hip arthroplasty. Multiple uterine lesion suggestive of fibroids. Extensive calcified plaque the abdominal aorta. Multiple presacral and pelvic multiloculated fluid collections and inflammatory stranding are redemonstrated measuring up to approximately 4.4 cm, unchanged from comparison. Multiple air and fluid-filled loops of large and small bowel are noted. Bowel gas pattern is nonobstructive. There is diffuse colonic wall thickening which has progressively worsened from comparison. Left lower quadrant diverting colostomy. Small volume of abdominal pelvic ascites with mesenteric and diffuse body wall edema. Sclerosis of the left acetabulum with nondisplaced acetabular fracture redemonstrated. Scattered sclerotic metastasis appear unchanged. No new pathologic fracture identified. IMPRESSION: 1. Fluid overload manifested by small left and trace right pleural effusions, moderate pericardial effusion with body wall edema and small volume of abdominal pelvic ascites. 2. Moderate wall thickening throughout the colon is compatible with a nonspecific pancolitis. Air-fluid levels throughout nondilated large and small bowel suggests enteritis/diarrheal illness. 3. Nonobstructive bowel gas pattern. No pneumatosis. 4. Left lower quadrant diverting colostomy. 5. Chronic inflammation with multiloculated fluid collections of the pelvis compatible with abscesses appear unchanged dating back to 02/20/2020. 6. 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 7. Additional findings as above. ACT 112: Negative or not required by law. The above report was generated using voice recognition software. It may contain grammatical, syntax or spelling errors. Electronically signed by: Thierno Brown M.D. 03/12/2020 9:35 PM Dictated: 03/12/202125 Transcribed: 03/12/202125 XR chest 1V portable HISTORY: 79 years-old Female SEPSIS acute sepsis COMPARISON: Chest radiograph 03/10/2020 TECHNIQUE: Portable AP view of the chest FINDINGS: Cardiac silhouette is unchanged in size. Calcified plaque of the thoracic aortic arch. Mild pulmonary vascular congestion is suggested. Left subclavian [id number] catheter. No pneumothorax. Small left and trace right pleural effusions with mild bibasilar densities suggestive of atelectasis. Degenerative changes of the shoulders and spine. Left shoulder rotator cuff calcific tendinosis. IMPRESSION: 1. Mild pulmonary vascular congestion. 2. Small left and trace right pleural effusions redemonstrated with minimal bibasilar densities suggestive of atelectasis. ACT 112: Negative or not required by law. The above report was generated using voice recognition software. It may contain grammatical, syntax or spelling errors. Electronically signed by: Thierno Brown M.D. 03/12/2020 7:35 PM Dictated: 03/12/201933 Transcribed: 03/12/201933 ECG Data Rate (beats per minute): 95 Rhythm: + normal sinus ECG Intervals/blocks: + Normal QRS (Low voltage), + Normal AK and + Normal QT-c ECG ST segments: + Normal ST segments MDM Narrative 1914: The patient was evaluated in room C10. A complete history and physical exam was performed. Cardiac monitoring: An order was placed for continuous cardiac monitoring. The monitor shows a rate of 90 with sinus rhythm I was informed by the nursing staff that the patient's daughter is adventure education teacher here name Aydee and she would like me to call her. I called her using the hospital phone by daily extension 0. Only told me that the patient has been feeling weak since being discharged from the hospital. She still reports that s he is not been eating and appeared more confused. She denies that the patient took an increase in her pain medication. She states that the patient has a long history of intra-abdominal abscesses and recently had a dilatation of her colostomy done by Dr. Belcher, she is waiting to be evaluated at [facility] for reversal of her colostomy. 2148: Vital signs stable. Labs show severely low potassium and magnesium levels. This is thought to be why the patient is feeling so weak. White blood cell count is low at 0.58, this is thought to be due to the patient's chemotherapy. Hemoglobin is 7.2. Patient is not febrile. Her imaging shows no acute process except for fluid overloaded. Patient will be admitted to the hospitalist service. [facility] hospitalist Dr. Collado notified. 2207: Vital signs stable. Urinalysis does appear possibly infected. Given the patient neutropenia, she will be treated with cefepime [address] Collado is aware and agrees. Impression & Plan Acute hypokalemia, Hypomagnesemia, Pericardial effusion, Lung cancer, Acute UTI Discharge Plan Visit Data Chief Complaint: Back Injury/Pain Stated Complaint: INFECTION IN COLOSTOMY BAG ED Provider: Bam Reagan Discharge Problem: Acute hypokalemia, Hypomagnesemia, Pericardial effusion, Lung cancer, Acute UTI Patient Disposition: Admitted As Inpatient Forms Stand Alone Forms: [facility] [employer] Prescriptions Prescriptions: No Action levothyroxine [Synthroid] 100 mcg tablet 100 mcg PO QAM Qty: 90 RF: 3 citalopram [Celexa] 40 mg tablet 40 mg PO QAM Qty: 90 RF: 3 folic acid 1 mg tablet 1 mg PO DAILY RF: 0 pantoprazole [Protonix] 40 mg tablet,delayed release (DR/EC) 40 mg PO QAM RF: 0 aspirin [Aspir-81] 81 mg Tablet,Delayed Release (Dr/Ec) 81 mg PO QAM RF: 0 magnesium oxide 400 mg (241.3 mg magnesium) tablet 400 mg PO BID Qty: 20 RF: 0 torsemide 10 mg tablet 10 mg PO Q2D PRN (Reason: Swelling) RF: 0 fluconazole 100 mg tablet 100 mg PO Q3D 30 Days Qty: 20 RF: 0 ciprofloxacin HCl 500 mg tablet 500 mg PO BID 14 Days Qty: 28 RF: 0 potassium chloride 10 mEq tablet extended release 10 meq PO QAM RF: 0 oxycodone 5 mg tablet 5 mg PO Q6H PRN (Reason: Pain) RF: 0 prochlorperazine maleate [Compazine] 5 mg tablet 5 mg PO TID PRN (Reason: Nausea And Vomiting) RF: 0 Virt-Phos 250 Neutral 250 mg tablet 1 tab PO DAILY RF: 0 Referrals Referrals: Zion Bartholomew MD [Primary Care Provider] -
--- NOTE | 2020-03-12 21:36 | CT Scan Report ---
ABDOMEN AND PELVIS CT WITH IV CONTRAST HISTORY: Acute right lower quadrant abdominal pain. History of lung cancer and diverting left lower q uadrant colostomy. abd pain TECHNIQUE: Multiaxial CT images of the abdomen and pelvis were performed following the IV administrat ion of 120 cc of Optiray 320, A dose lowering technique was utilized adhering to the principles of A NIKOLAI. COMPARISON STUDY: CT abdomen and pelvis 03/06/2020 FINDINGS: Small left and trace right pleural effusions with dependent left basilar consolidation sugg estive of compressive atelectasis. No pneumatosis or pneumoperitoneum identified. Moderate pericardia l effusion. Spleen is prominent in size. Unremarkable pancreas. Unchanged 2.1 cm left adrenal gland l esion. Mild wall thickening of the gallbladder. No hepatic mass lesions identified. Patency of the he patic and portal veins. There are a few scattered hypodensities of the kidneys redemonstrated, largest of which measures 1.8 cm on the right. Most of these are too small to characterize however suggestive of probable cysts. Mi ld nonspecific urothelial thickening of the proximal ureters. Pelvic structures including the urinary bladder suboptimally visualized secondary to streak artifact from left hip arthroplasty. Multiple ut erine lesion suggestive of fibroids. Extensive calcified plaque the abdominal aorta. Multiple presacr al and pelvic multiloculated fluid collections and inflammatory stranding are redemonstrated measurin g up to approximately 4.4 cm, unchanged from comparison. Multiple air and fluid-filled loops of large and small bowel are noted. Bowel gas pattern is nonobstr uctive. There is diffuse colonic wall thickening which has progressively worsened from comparison. Le ft lower quadrant diverting colostomy. Small volume of abdominal pelvic ascites with mesenteric and d iffuse body wall edema. Sclerosis of the left acetabulum with nondisplaced acetabular fracture redemo nstrated. Scattered sclerotic metastasis appear unchanged. No new pathologic fracture identified. IMPRESSION: 1. Fluid overload manifested by small left and trace right pleural effusions, moderate pericardial ef fusion with body wall edema and small volume of abdominal pelvic ascites. 2. Moderate wall thickening throughout the colon is compatible with a nonspecific pancolitis. Air-flu id levels throughout nondilated large and small bowel suggests enteritis/diarrheal illness. 3. Nonobstructive bowel gas pattern. No pneumatosis. 4. Left lower quadrant diverting colostomy. 5. Chronic inflammation with multiloculated fluid collections of the pelvis compatible with abscesses appear unchanged dating back to 02/20/2020. 6. 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 7. Additional findings as above. ACT 112: Negative or not required by law. The above report was generated using voice recognition software. It may contain grammatical, syntax o r spelling errors. Electronically signed by: Thierno Brown M.D. 03/12/2020 9:35 PM
[2020-03-12] MEDS ORDERED: CEFEPIME 2,000 MG/20 ML VIAL IV STA (22:08)
[2020-03-12] MEDS: POTASSIUM CHLORIDE / WTR 10 MEQ/100 ML PLCT IV SCH (23:08)
--- NOTE | 2020-03-12 23:28 | History & Physical Report ---
Date of Service March 12, 2020 Assessment & Plan (1) Neutropenia: Neutropenia/pancytopenia- Placed on neutropenic precautions. Neupogen 300 mcg subcu x1 tonight Follow serial laboratories. Platelets have decreased from 151 down to 53. Assess for DIC. Sources of infection include pelvic abscesses and acute UTI Placed on vancomycin IV and Zosyn IV Present on Admission?: Yes (2) Pancytopenia: See above Present on Admission?: Yes (3) Acute UTI: Follow urine culture and sensitivity. Antibiotics as above Present on Admission?: Yes (4) Hypomagnesemia: Replace with IV magnesium sulfate. Repeat laboratories in a.m. Present on Admission?: Yes (5) Acute hypokalemia: Replacing with IV potassium and IV fluids. Repeat laboratories in a.m. Present on Admission?: Yes (6) Pelvic abscess: Antibiotics as noted above Present on Admission?: Yes (7) History of colostomy: Patient reports her colostomy is functioning significantly better since dilatation during last admission.. Present on Admission?: Yes (8) Anasarca: Secondary to hypoalbuminemia of 1.6. For now, trial of IV albumin. Present on Admission?: Yes History of Present Illness Chief Complaint: The patient presents to the emergency department with complaints of epigastric area pain into her back. Primary Care Provider: Zion Bartholomew MD The patient is a 79-year-old female with a past medical history including small bowel obstruction, pelvic abscesses, osteopenia, hypertriglyceridemia, adrenal cortical adenoma, esophageal dyskinesia, colostomy, wound dehiscence, ascites, diverticulitis of colon with perforation, GERD, hyperlipidemia, hypertension, anemia, presence of Port-A-Cath, lung cancer, COPD, continued cigarette smoking, severe protein calorie malnutrition, pericardial effusion, breast cancer metastasized to bone, hypothyroidism, GERD and depression. The patient most recently was admitted to [facility] from 02/19-02/28, and then 03/06-03/11. During her most recent admission, she had problems with stoma functioning that was alleviated by dilatation by surgery, and she continues to report that the ostomy is functioning at this time. Her main complaint is a newer type of pain in the epigastric toward back area, that seem somewhat positional. She reports that she has not been able to eat since she was discharged from hospital 1 day ago. In the ED, laboratory work-up revealed a potassium of 2.7, magnesium 1.5, platelets decreased from 151-53, hemoglobin 7.2, and WBC decreased to 0.58 with an ANC of 270. CTA of chest showed anasarca, ascites, a moderate pericardial effusion and stable metastatic disease. CT of abdomen pelvis showed a left lower quadrant colostomy with persistence of pelvic abscesses and unchanged left acetabular fracture. Allergies Allergy/AdvReac Type Severity Reaction Status Date / Time nickel Allergy Intermediate Rash Verified 03/12/20 21:12 venlafaxine AdvReac Intermediate Hypertensio Verified 03/12/20 21:12 n,Headache clarithromycin AdvReac Mild Nausea/Vomi Verified 03/12/20 21:12 ting codeine AdvReac Mild UPSET Verified 03/12/20 21:12 STOMACH hydrocodone AdvReac Mild Nausea/Vomi Verified 03/12/20 21:12 ting metronidazole [From Flagyl] AdvReac Mild Gastrointestinal Verified 03/12/20 21: 12 Upset Home Medications Home Medications Medication Instructions Recorded Confirmed Type folic acid 1 mg PO DAILY 08/04/19 03/12/20 History pantoprazole [Protonix] 40 mg PO QAM 08/30/19 03/12/20 History levothyroxine 100 mcg tablet 100 mcg PO QAM #90 tab 09/12/19 03/12/20 Rx aspirin [Aspir-81] 81 mg PO QAM 09/20/19 03/12/20 History citalopram 40 mg tablet 40 mg PO QAM #90 tab 01/09/20 03/12/20 Rx magnesium oxide 400 mg PO BID #20 tab 02/29/20 03/12/20 Rx torsemide 10 mg PO Q2D PRN 03/06/20 03/12/20 History ciprofloxacin HCl 500 mg PO BID 14 Days #28 tab 03/11/20 03/12/20 Rx fluconazole 100 mg PO Q3D 30 Days #20 tab 03/11/20 03/12/20 Rx oxycodone 5 mg PO Q6H PRN 03/12/20 03/12/20 History potassium chloride 10 meq PO QAM 03/12/20 03/12/20 History prochlorperazine maleate 5 mg PO TID PRN 03/12/20 03/12/20 History [Compazine] sod phos di, mono-K phos mono 1 tab PO DAILY 03/12/20 03/12/20 History [Virt-Phos 250 Neutral] Past Med/Surg History Medical History Adenocarcinoma, lung Adrenal cortical adenoma (Acute) Anxiety Arthritis Biceps tendonitis Cataract Depression (Acute) Esophageal dyskinesia Essential hypertriglyceridemia (Acute) Fatigue Gastritis Gastroesophageal reflux disease (Acute) History of bronchitis History of diverticulitis (Resolved) Hyperlipidemia Hypothyroidism (Acute) Intermittent hydrarthrosis of elbow Irritable bowel syndrome (Acute) Lung cancer NEW DX Metastatic bone cancer radiation treatments completed 08/25/19. Olecranon bursitis Osteoarthritis Osteopenia (Acute) Pneumonia hx Sialoadenitis Surgical History History of cataract surgery RT/LEFT History of colonoscopy Dr. Veronica 12/2011 History of dilatation and curettage History of discectomy CERVICAL (GOOD ROM) History of repair of rotator cuff RT History of tooth extraction S/P section X 1 S/P hip replacement left. 07/02/2019. SAB with MAC. no issues. Family History Family/Other Family history of diabetes mellitus Brother Family hx of colon cancer Mother , age 66 Diabetes Cancer ovarian Coronary heart disease had acute ME which led to her Sister Cancer Family/Other Breast cancer Father , age 49 Suicide Alcoholism Social History Preferred Language: Singaporean Communication Ability: Effective Visual Impairment: No Limitations Hearing Ability: Normal Hospital Pharmacy Director Required: No Beliefs That Will Affect Care: None marital status: Unknown Current Living Situation: Family Current Living Situation Comment: Lives with grandson current occupational status: retired current occupation: worked at [employer] other: 1 daughter Feels Safe at Home: Yes Smoking Status: Current every day smoker Tobacco Type: cigarettes ; Age Started Using Tobacco: 21 ; packs per day: 0.5 ; Cigarettes Per Day: 6 ; Second Hand Exposure: No ; Hx Alcohol Use: No Hx Substance Use: No Childhood Exposure to Second-Hand Smoke: Yes (both parents) caffeine: Yes Dental Care, Regularly: No Seatbelt Use: always Review of Systems Review of Systems: The patient denies palpitations, cough, sore throat, fevers, chills, sweats, vomiting, diarrhea , constipation, blood in urine or stool, dysuria, urinary frequency or urgency, headache, memory loss, loss of consciousness, rash, abnormal bruising or bleeding, focal weakness, numbness or tingling in arms or legs. The review of systems is otherwise negative other than for that already noted above, and at least 10 systems have been reviewed. Physical Exam Physical Exam: The patient is awake, alert and oriented 3, looks emaciated, normocephalic and atraumatic, lying in bed and in no acute distress. HEENT--PERRL, EOMI, mucous membranes and oropharynx dry. Neck--supple. No JVD. No bruits. Thyroid normal, trachea midline, no adenopathy. Heart--normal S1 and S2. No murmurs, rubs or gallops. Lungs--clear bilaterally, no respiratory distress, no accessory muscle use. Abdomen--normal bowel sounds and soft. Nontender. Nondistended. Extremities--no cyanosis or clubbing. Anasarca noted Dermatologic--normal skin turgor, normal color, no abnormal lymph nodes, no rash. Neurologic--cranial nerves II through XII grossly intact. Rheumatologic--normal range of motion. Psychiatric--normal affect. Results & Data Results & Data ([facility]) Vital Signs (Past 12 Hours) Vital Signs Temp Pulse Pulse Resp BP BP Pulse Ox 03/12/20 22:52 93 H 16 106/54 L 95 03/12/20 21:01 93 H 16 107/53 L 97 03/12/20 19:55 95 H 14 106/49 L 95 03/12/20 19:48 95 03/12/20 18:21 98.8 F 111 H 20 104/67 94 Laboratory Results Laboratory Results WBC 0.58 K/uL (4.8-10.8) L* 03/12/20 19:37 RBC 2.54 M/uL (4.2-5.4) L 03/12/20 19:37 Hgb 7.2 g/dL (12.0-16.0) L 03/12/20 19:37 Hct 22.3 % (37-47) L 03/12/20 19:37 MCV 87.8 fL (80-100) 03/12/20 19:37 MCH 28.3 pg (25-34) 03/12/20 19:37 MCHC 32.3 g/dL (32-36) 03/12/20 19:37 RDW Std Deviation 69.7 fL (36.4-46.3) H 03/12/20 19:37 RDW Coeff of Raymundo 21.9 % (11.5-14.5) H 03/12/20 19:37 Plt Count 53 K/uL (130-400) L 03/12/20 19:37 MPV 8.4 fL (7.4-10.4) 03/12/20 19:37 Neutrophils % (Manual) 47.0 % 03/12/20 19:37 Band Neutrophils % 0.0 % 03/12/20 19:37 Lymphocytes % (Manual) 36.0 % 03/12/20 19:37 Prolymphocyte % 0.0 % 03/12/20 19:37 Reactive Lymphs % (Man) 0.0 % 03/12/20 19:37 Monocytes % (Manual) 8.0 % 03/12/20 19:37 Eosinophils % (Manual) 9.0 % 03/12/20 19:37 Plasma Cell % (Manual) 0.0 % 03/12/20 19:37 Neutrophils # (Manual) 0.27 K/uL (1.4-6.5) L 03/12/20 19:37 Total Absolute Neuts 0.27 K/uL (1.4-6.5) L* 03/12/20 19:37 Lymphocytes # (Manual) 0.21 K/uL (1.2-3.4) L 03/12/20 19:37 Total Abs Lymphocytes 0.21 K/uL (1.2-3.4) L 03/12/20 19:37 Monocytes # (Manual) 0.05 K/uL (0.11-0.59) L 03/12/20 19:37 Eosinophils # (Manual) 0.05 K/uL (0-0.5) 03/12/20 19:37 Large Granular Lymphs 0.0 % 03/12/20 19:37 Platelet Estimate Decreased (Normal) L 03/12/20 19:37 Anisocytosis Present 03/12/20 19:37 PT 10.9 Seconds (9.0-12.0) 03/12/20 19:37 INR 1.0 (0.9-1.1) 03/12/20 19:37 APTT 33.9 Seconds (21.0-31.0) H 03/12/20 19:37 PTT Ratio 1.2 03/12/20 19:37 Fibrinogen 422 mg/dl (184-400) H 03/12/20 23:53 D-Dimer 79539 ug/L FEU (0-500) H* 03/12/20 23:53 Sodium 134 mmol/L (136-145) L 03/12/20 19:37 Potassium 2.7 mmol/L (3.5-5.1) L 03/12/20 19:37 Chloride 100 mmol/L (98-107) 03/12/20 19:37 Carbon Dioxide 29 mmol/L (21-32) 03/12/20 19:37 Anion Gap 5.0 (3-11) 03/12/20 19:37 BUN 11 mg/dl (7-18) 03/12/20 19:37 Creatinine 0.43 mg/dl (0.6-1.2) L 03/12/20 19:37 Est Cr Clr Drug Dosing Not Reportable 03/12/20 19:37 Est GFR ( Amer) 113.7 03/12/20 19:37 Est GFR (Non-Af Amer) 98.1 03/12/20 19:37 BUN/Creatinine Ratio 25.8 (10-20) H 03/12/20 19:37 Glucose 99 mg/dl (70-99) 03/12/20 19:37 Lactate 0.8 mmol/L (0.4-2.0) 03/12/20 19:37 Calcium 7.7 mg/dl (8.5-10.1) L 03/12/20 19:37 Magnesium 1.5 mg/dl (1.8-2.4) L 03/12/20 19:37 Total Bilirubin 0.4 mg/dl (0.2-1) 03/12/20 19:37 AST 16 U/L (15-37) 03/12/20 19:37 ALT 6 U/L (12-78) L 03/12/20 19:37 Alkaline Phosphatase 40 U/L (45-117) L 03/12/20 19:37 Troponin I < 0.015 ng/ml (0-0.045) 03/12/20 19:37 Total Protein 5.4 gm/dl (6.4-8.2) L 03/12/20 19:37 Albumin 1.6 gm/dl (3.4-5.0) L 03/12/20 19:37 Globulin 3.8 gm/dl (2.5-4.0) 03/12/20 19:37 Albumin/Globulin Ratio 0.4 (0.9-2) L 03/12/20 19:37 Procalcitonin 0.54 ng/ml (0-0.5) H 03/12/20 19:37 Urine Color Dark Yellow 03/12/20 20:35 Urine Appearance Turbid (Clear) A 03/12/20 20:35 Urine pH 5.5 (4.5-7.5) 03/12/20 20:35 Ur Specific [place] 1.019 (1.000-1.030) 03/12/20 20:35 Urine Protein 1+ (Negative) H 03/12/20 20:35 Urine Glucose (UA) Negative (Negative) 03/12/20 20:35 Urine Ketones Negative (Negative) 03/12/20 20:35 Urine Blood 2+ (Negative) H 03/12/20 20:35 Urine Nitrite Negative (Negative) 03/12/20 20:35 Urine Bilirubin Negative (Negative) 03/12/20 20:35 Urine Urobilinogen Negative (Negative) 03/12/20 20:35 Ur Leukocyte Esterase 3+ (Negative) H 03/12/20 20:35 Urine WBC (Auto) >30 /hpf (0-5) H 03/12/20 20:35 Urine RBC (Auto) >30 /hpf (0-4) H 03/12/20 20:35 U Hyaline Cast (Auto) 1-5 /lpf (0-5) 03/12/20 20:35 U Epithel Cells (Auto) 10-20 /lpf (0-5) H 03/12/20 20:35 Urine Bacteria (Auto) 1+ (Negative) H 03/12/20 20:35 Urine Yeast Present (None Prsent) A 03/12/20 20:35 Blood Type O Positive 03/12/20 23:42 Antibody Screen NEGATIVE 03/12/20 23:42 Diagnostic Findings [facility], [place] [phone] XRay Report Patient: DAVID RODRIGUEZ Date: 03/12/20 MR#: [id number]: [address] Acct ID:[id number]: Date: [address] [place] [address] Zip: [place] [address] Age: 79Location: ED Sex: F Room/Bed: Att Phy:Diagnosis: INFECTION IN COLOSTOMY BAG Sari Phy: Zion Bartholomew MDService Date: 03/12/20 Fam Phy:Interpreting Phy: Chandler Brown Admit Phy: Ordering Phy: Bam Reagan MD cc: ~ XR chest 1V portable HISTORY: 79 years-old Female SEPSIS acute sepsis COMPARISON: Chest radiograph 03/10/2020 TECHNIQUE: Portable AP view of the chest FINDINGS: Cardiac silhouette is unchanged in size. Calcified plaque of the thoracic aortic arch. Mild pulmonary vascular congestion is suggested. Left subclavian Lovljc-o-Hkxj catheter. No pneumothorax. Small left and trace right pleural effusions with mild bibasilar densities suggestive of atelectasis. Degenerative changes of the shoulders and spine. Left shoulder rotator cuff calcific tendinosis. IMPRESSION: 1. Mild pulmonary vascular congestion. 2. Small left and trace right pleural effusions redemonstrated with minimal bibasilar densities suggestive of atelectasis. ACT 112: Negative or not required by law. The above report was generated using voice recognition software. It may contain grammatical, syntax or spelling errors. Electronically signed by: Thierno Brown M.D. 03/12/2020 7:35 PM Dictated: 03/12/201933 Transcribed: 03/12/201933 [facility], [place] [phone] CT Scan Report Patient: DAVID RODRIGUEZ Date: 03/12/20 MR#: [id number]: [address] Acct ID:[id number]: Date: 1940[facility] [address] Age: 79Location: ED Sex: F Room/Bed: Att Phy:Diagnosis: INFECTION IN COLOSTOMY BAG Sari Phy: Zion Bartholomew MDService Date: 03/12/20 Fam Phy:Interpreting Phy: Chandler Brown Admit Phy: Ordering Phy: Bam Reagan MD cc: ~ ABDOMEN AND PELVIS CT WITH IV CONTRAST HISTORY: Acute right lower quadrant abdominal pain. History of lung cancer and diverting left lower quadrant colostomy. abd pain TECHNIQUE: Multiaxial CT images of the abdomen and pelvis were performed following the IV administration of 120 cc of Optiray 320, A dose lowering technique was utilized adhering to the principles of ALARA. COMPARISON STUDY: CT abdomen and pelvis 03/06/2020 FINDINGS: Small left and trace right pleural effusions with dependent left basilar consolidation suggestive of compressive atelectasis. No pneumatosis or pneumoperitoneum identified. Moderate pericardial effusion. Spleen is prominent in size. Unremarkable pancreas. Unchanged 2.1 cm left adrenal gland lesion. Mild wall thickening of the gallbladder. No hepatic mass lesions identified. Patency of the hepatic and portal veins. There are a few scattered hypodensities of the kidneys redemonstrated, largest of which measures 1.8 cm on the right. Most of these are too small to characterize however suggestive of probable cysts. Mild nonspecific urothelial thickening of the proximal ureters. Pelvic structures including the urinary bladder suboptimally visualized secondary to streak artifact from left hip arthroplasty. Multiple uterine lesion suggestive of fibroids. Extensive calcified plaque the abdominal aorta. Multiple presacral and pelvic multiloculated fluid collections and inflammatory stranding are redemonstrated measuring up to approximately 4.4 cm, unchanged from comparison. Multiple air and fluid-filled loops of large and small bowel are noted. Bowel gas pattern is nonobstructive. There is diffuse colonic wall thickening which has progressively worsened from comparison. Left lower quadrant diverting colostomy. Small volume of abdominal pelvic ascites with mesenteric and diffuse body wall edema. Sclerosis of the left acetabulum with nondisplaced acetabular fracture redemonstrated. Scattered sclerotic metastasis appear unchanged. No new pathologic fracture identified. IMPRESSION: 1. Fluid overload manifested by small left and trace right pleural effusions, moderate pericardial effusion with body wall edema and small volume of abdominal pelvic ascites. 2. Moderate wall thickening throughout the colon is compatible with a nonspecific pancolitis. Air-fluid levels throughout nondilated large and small bowel suggests enteritis/diarrheal illness. 3. Nonobstructive bowel gas pattern. No pneumatosis. 4. Left lower quadrant diverting colostomy. 5. Chronic inflammation with multiloculated fluid collections of the pelvis compatible with abscesses appear unchanged dating back to 02/20/2020. 6. 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 7. Additional findings as above. ACT 112: Negative or not required by law. The above report was generated using voice recognition software. It may contain grammatical, syntax or spelling errors. Electronically signed by: Thierno Brown M.D. 03/12/2020 9:35 PM Dictated: 03/12/202125 Transcribed: 03/12/202125 [place], [place] [phone] CT Scan Report Patient: DAVID RODRIGUEZ EAdmit Date: 03/12/20 MR#: [id number]: [address] Acct ID:[id number]: Date: [address] [place] [address] Zip: [place] [address] Age: 79Location: ED Sex: F Room/Bed: Att Phy:Diagnosis: INFECTION IN COLOSTOMY BAG Sari Phy: Zion Bartholomew MDService Date: 03/12/20 Fam Phy:Interpreting Phy: Chandler Brown Admit Phy: Ordering Phy: Bam Reagan MD cc: ~ CT angio chest PE protocol CT DOSE: 959.52 mGycm HISTORY: 79 years-old Female with cp back pain cancer patient. Acute chest and back pain in a patient with history of lung cancer. TECHNIQUE: Multiple CTA images of the chest were obtained after the intravenous administration of 120 ml Optiray 320. Coronal and sagittal MIPS were obtained from the axial data set and were submitted for review. All measurements were obtained according to NASCET criteria. A dose lowering technique was utilized adhering to the principles of ALARA. COMPARISON: CT abdomen and pelvis of same day, chest CT 01/30/2020 FINDINGS: CTA: The heart is mildly enlarged. Pericardial effusion measuring up to 10 mm anteriorly as increased in size, previously measuring 3.5 mm. Coronary artery calcifications. No thoracic aortic aneurysm or dissection. Severe mixed plaque of the thoracic aortic arch results in approximately 50% luminal narrowing of the proximal left subclavian artery. The pulmonary arterial tree is opacified to level the subsegmental branches and demonstrates no filling defects to suggest pulmonary thromboembolic disease. CT CHEST: Unremarkable thyroid. No new adenopathy. 9 mm subcarinal lymph node previously measured 8 mm. Trace right and small left pleural effusions as well as mild generalized body wall edema are new from comparison. Moderate emphysema. No pneumothorax. Bronchial wall thickening suggestive of bronchitis versus reactive airway disease. Spiculated masslike opacity of the right perihilar distribution is redemonstrated, previously measured at approximately 2.2 x 1.3 cm, now measuring 2.3 x 1.3 cm, generally unchanged. Dependent consolidation of the left lower lobe suggest compressive atelectasis. Unchanged 5 mm solid nodule the basal left lower lobe, image 105 series 4. Unchanged 4 mm solid nodule of the inferior segment lingula. Subpleural nodule of the right middle lobe is also unchanged. Linear scarlike opacity of the right lung base on image 121 is unchanged. No new or enlarging nodules are identified. Central airways appear patent. Small volume of abdominal ascites. Small hiatal hernia. Scattered sclerotic skeletal lesions are redemonstrated, specifically involving the left glenoid, and posterior left seventh rib. No acute pathologic fracture identified. IMPRESSION: 1. Fluid overload manifested by new trace right and small left pleural effusions with generalized body wall edema, small volume of abdominal ascites and moderate pericardial effusion. 2. Stable metastatic disease within the chest as detailed above. 3. No evidence of pulmonary thromboembolic disease. 4. Additional findings as above. ACT 112: Negative or not required by law. The above report was generated using voice recognition software. It may contain grammatical, syntax or spelling errors. Electronically signed by: Thierno Brown M.D. 03/12/2020 9:19 PM Dictated: 03/12/202106 Transcribed: 03/12/202106 [place], [place] [phone] CT Scan Report Patient: DAVID RODRIGUEZ EAdmit Date: 03/12/20 MR#: [id number]: [address] Acct ID:[id number]: Date: 1940[facility] Zip: [place] [address] Age: 79Location: ED Sex: F Room/Bed: Att Phy:Diagnosis: INFECTION IN COLOSTOMY BAG Sari Phy: Zion Bartholomew MDService Date: 03/12/20 Shubham Phy:Interpreting Phy: Chandler Brown Admit Phy: Ordering Phy: Bam Reagan MD cc: ~ CT head/brain wo con CLINICAL HISTORY: 79 years-old Female with ams. Acutely altered mental status TECHNIQUE: Multiple axial CT images of the head were obtained without contrast. A dose lowering technique was utilized adhering to the principles of ALARA. CT DOSE: 638.56 mGycm COMPARISON: Head CT 06/30/2019 FINDINGS: No acute intracranial hemorrhage, midline shift, intracranial mass, hydrocephalus, territorial ischemia or abnormal extra-axial collection. Mild age-related involutional changes. Patchy white matter hypodensities suggest chronic microvascular ischemic disease. The calvarium is intact. Prior bilateral lens replacement. The paranasal sinuses, mastoid air cells, and middle ear cavities are clear. IMPRESSION: No acute intracranial abnormality or calvarial fracture. ACT 112: Negative or not required by law. The above report was generated using voice recognition software. It may contain grammatical, syntax or spelling errors. Electronically signed by: Thierno Brown M.D. 03/12/2020 9:04 PM Dictated: 03/12/202100 Transcribed: 03/12/202100 Code Status & VTE Plan Code Status Full code VTE Prophylaxis Plan VTE Prophylaxis will be ordered: Yes PG Care Time/CCT Total # of Minutes Spent Total Time Spent with Patient: Total time spent is greater than 50% in coordination of care (as documented) at patient's floor/unit and/or counseling patient: Coding Level of Care Code 32763 Initial Inpt Care Lvl 3 Diagnoses Neutropenia D70.9 Pancytopenia D61.818 Acute UTI N39.0 Hypomagnesemia E83.42 Acute hypokalemia E87.6 Pelvic abscess History of colostomy Anasarca R60.1
[2020-03-12] MEDS ORDERED: VANCOMYCIN CONSULT ACTIVE PRN (23:29)
[2020-03-12] MEDS ORDERED: PIPERACILL/TAZOBAC CONSULT ACTIVE PRN (23:31)
[2020-03-13] MEDS ORDERED: ALUMINUM/MAGNESIUM SUSP 30 ML UDC PO PRN (00:28)
[2020-03-13] MEDS ORDERED: ACETAMINOPHEN 325 MG TAB PO PRN (00:28)
[2020-03-13] MEDS ORDERED: MAGNESIUM HYDROXIDE SUSP 30 ML UDC PO PRN (00:28)
[2020-03-13] MEDS ORDERED: PROCHLORPERAZINE MALEATE 5 MG TAB PO PRN (00:28)
[2020-03-13] MEDS ORDERED: OXYCODONE HCL IR 5 MG TAB (IMMEDIATE RELEASE) PO PRN (00:33)
[2020-03-13] MEDS: POTASSIUM CHLORIDE / WTR 10 MEQ/100 ML PLCT IV SCH (00:38)
[2020-03-13 00:52] LABS: Fibrinogen 422 mg/dl (184-400)
[2020-03-13 00:58] LABS: D Dimer 13680 ug/L FEU (0-500)
[2020-03-13] MEDS ORDERED: VANCOMYCIN HCL 1,000 MG in SODIUM CHLORIDE 0.9% 250 ML IV SCH (01:00)
[2020-03-13] MEDS ORDERED: FILGRASTIM 300 MCG/ML VIAL SQ ONE (01:00)
[2020-03-13] MEDS ORDERED: PIPERACILLIN/TAZOBACTAM 3.375 GM in DEXTROSE 5% 100 ML IV SCH (01:00)
[2020-03-13] MEDS: NSS + 20MEQ KCL 20 MEQ/1,000 ML BAG IV SCH ×3 (01:19→20:46)
[2020-03-13] MEDS ORDERED: LORazepam 0.5 MG TAB PO STA (02:15)
[2020-03-13] MEDS: ALBUMIN 25% 50 ML IV SCH ×3 (03:25→14:10)
[2020-03-13] MEDS: PIPERACILLIN/TAZOBACTAM 3.375 GM in DEXTROSE 5% 100 ML IV SCH ×3 (05:47→21:24)
[2020-03-13] MEDS: LEVOTHYROXINE SODIUM 100 MCG TABLET PO SCH (06:23)
--- NOTE | 2020-03-13 07:01 | Electrocardiogram Report ---
Test Reason : Blood Pressure : / mmHG Vent. Rate : 095 BPM Atrial Rate : 095 BPM P-R Int : 126 ms QRS Dur : 084 ms QT Int : 378 ms P-R-T Axes : 079 043 089 degrees QTc Int : 475 ms Normal sinus rhythm Low voltage QRS Septal infarct (cited on or before 28-FEB-2020) T wave abnormality, consider anterior ischemia Abnormal ECG When compared with ECG of 06-MAR-2020 22:40, T wave inversion more evident in Anterior leads Confirmed by Jarrod Sheldon ([id number]) on 03/13/2020 7:00:32 AM Referred By: REFERRED SELF Confirmed By:Jarrod Sheldon
[2020-03-13] MEDS: CITALOPRAM 40 MG TAB PO SCH (09:15)
[2020-03-13] MEDS: POT PHOSPHATE MONOBASIC W/ SOD TAB PO SCH (09:15)
[2020-03-13] MEDS: POTASSIUM CHLORIDE 10 MEQ TABCR PO SCH (09:15)
[2020-03-13] MEDS: MAGNESIUM OXIDE 400 MG TAB PO SCH ×2 (09:15→21:22)
[2020-03-13] MEDS: ASPIRIN 81 MG ECTAB PO SCH (09:15)
[2020-03-13] MEDS: PANTOprazole 40 MG TAB PO SCH (09:15)
[2020-03-13] MEDS: FOLIC ACID 1 MG TAB PO SCH (09:16)
[2020-03-13 10:29] LABS: BUN Creatinine Ratio 21.7 (10-20); Calcium 7.1 mg/dl (8.5-10.1); Est GFR (African American) 121.7; Hematocrit (blood only) 18.3 % (37-47); Hemoglobin 5.7 g/dL (12.0-16.0); Mean Corpuscular Hemoglobin 27.5 pg (25-34); Mean Corpuscular Hgb Conc 31.1 g/dL (32-36); Mean Corpuscular Volume 88.4 fL (80-100); Mean Platelet Volume 8.6 fL (7.4-10.4); Platelet Count 38 K/uL (130-400); Potassium 2.8 mmol/L (3.5-5.1); RDW Coefficient of Variation 21.4 % (11.5-14.5); RDW Standard Deviation 68.8 fL (36.4-46.3); Red Blood Count 2.07 M/uL (4.2-5.4); White Blood Count 1.16 K/uL (4.8-10.8)
[2020-03-13 10:54] LABS: Eosinophils # (auto) 0.04 K/uL (0-0.5); Eosinophils % (auto) 3.4 %; Immature Granulocytes # (auto) 0.06 K/uL (0.00-0.02); Immature Granulocytes % (auto) 5.2 %; Lymphocytes # (auto) 0.15 K/uL (1.2-3.4); Lymphocytes % (auto) 12.9 %; Monocytes # (auto) 0.07 K/uL (0.11-0.59); Neutrophils # (auto) 0.84 K/uL (1.4-6.5); Neutrophils % (auto) 72.5 %
[2020-03-13 10:55] LABS: Macrocytosis Present; Platelet Estimate Decreased (Normal); Tear Drop Cells 1+
[2020-03-13] MEDS ORDERED: SODIUM CHLORIDE 0.9% 250 ML IV PRN (10:57)
--- NOTE | 2020-03-13 15:50 | Pharmacy Report ---
Pharmacy Abx Initial Consult - Date of Service March 13, 2020 - Pharmacy Dosing Scope Date of Consult: 03/13/20 Consultation requested by: Dr. Jennings Pharmacy is consulted to initiate Vancomycin and Zosyn IV dosing therapy, order appropriate labs and adjust drug dose/frequency. - Subjective The patient is a 79 year old F admitted on 03/12/20 23:07. - Objective Height: 5 ft 3 in Weight: 48.94 kg Vital Signs (Past 12hrs): Vital Signs Temp Pulse Pulse Resp BP BP Pulse Ox 03/13/20 15:10 36.9 C 87 16 110/57 L 03/13/20 14:39 36.7 C 92 H 18 104/52 L 94 03/13/20 13:30 36.6 C 85 16 113/64 97 03/13/20 13:28 36.8 C 87 18 113/56 L 92 03/13/20 12:30 36.6 C 85 18 100/52 L 97 03/13/20 12:00 36.9 C 86 20 104/56 L 93 03/13/20 11:43 36.9 C 86 16 92/51 L 93 03/13/20 11:26 36.8 C 87 17 95/62 L 95 03/13/20 11:25 36.8 C 87 18 91/44 L 95 03/13/20 08:17 36.7 C 92 H 17 105/57 L 94 03/13/20 03:42 36.9 C 86 18 104/57 L 94 Lab Results (24hrs): Laboratory Tests (24 Hours) 03/13/20 03/13/20 03/12/20 10:02 10:02 19:37 WBC 1.16 L Neut # (Auto) 0.84 L* Creatinine 0.35 L 0.43 L Est Cr Clr Drug Dosing 104.0 Not Reportable Procalcitonin 03/12/20 03/12/20 19:37 19:37 WBC 0.58 L* Neut # (Auto) Creatinine Est Cr Clr Drug Dosing Procalcitonin 0.54 H Micro Results: 03/12/20 19:52 Aerobic Blood Culture - Pending Blood Anaerobic Blood Culture - Pending 03/12/20 19:37 Aerobic Blood Culture - Pending Blood Anaerobic Blood Culture - Pending - Risk Factors for Resistance * Hospitalization for 48 hours or more within the past 90 days * Antimicrobial use within the last 90 days: Cipro - Assessment & Plan Assessment 79 year old F presenting to ED with epigastric pain and into her back. Patient was admitted from 02/19-02/28 and 03/06-03/11 and has not been able to eat since her discharge [address] of abdomen shows pelvic abscesses. Patient also has pancytopenia and placed on neutropenic precautions. UA positive. Urine culture growing GNB. Blood culturesx2 pending. Plan Vancomycin and Zosyn for Empiric treatment (pelvic abscess and UTI) Vancomycin IV * Estimated PK Parameters: Vd 0.7 L/kg, Momo 0.054 hr-1, t1/2 13 hr * Loading dose: 1000 mg (22.5 mg/kg) * Maintenance dose: 750 mg IV (15mg/kg) every 12 hours * Trough level will be ordered if Vancomycin continues beyond 48 hours Piperacillin/tazobactam * 3.375 g bolus administered over 30 minutes, then 3.375 g IV extended infusion every 8 hours for CrCl greater than 20 mL/min. Pharmacy will continue to follow and will adjust dose/frequency as necessary. Thank you.
[2020-03-13] MEDS: VANCOMYCIN HCL 750 MG in SODIUM CHLORIDE 0.9% 250 ML IV SCH (18:19)
[2020-03-13] MEDS: ONDANSETRON INJ 2 MG/ML 2 ML VIAL IV PRN (18:19)
--- NOTE | 2020-03-13 18:24 | Hospitalist Progress Note ---
Date of Service March 13, 2020 Assessment & Plan (1) Pancolitis: symptomatically this fits best with the culprit for her current symptom complex. did improve on zosyn - continue for now. GI input regarding ?etiology and assist in management (2) Acute UTI: questionable - will follow and revisit ?sx. for now empiric abx will cover. this may be the culprit for neutropenic fever, but symptomatically enteritis seems more likely. (3) Neutropenia: neutropenic fever -very concerning for her overall prognosis, given that she's been ill repeatedly and now with neutropenic fever -ddx seems to be the pancolitis picture on CT (which would fit with her sx last night) or UTI (which - will need to revisit sx - but seems less clear-cut to be the cause without overt urinary sx) -fortunately does feel better and WBC did come up - continue empiric vanc and zosyn (aware of slightly increased renal risk with this compared to vanc and cefepime, but she is quite ill and enteritis is certainly high on the ddx - w ould prefer to keep the anaerobic coverage from the zosyn; kidney function is good) -follow closely (4) Pancytopenia: See above - worrisome that she's not only neutropenic but pancytopenic (and hasn't had chemo in quite a while given run of acute illnesses) -WBC did improve; but Hgb and plt dropped further -transfuse for low Hgb, did have heme positive stools earlier in the week but no overt GI bleeding (5) Hypomagnesemia: related to malnutrition (6) Acute hypokalemia: continue to replace (7) Pelvic abscess: contniue antibiotics open-ended (8) History of colostomy: fortunately functioning (9) Anasarca: related to severe protein calorie malnutrition hopefully can get back to PO intake (10) Malnutrition: severe protein calorie - see above (11) DVT prophylaxis: anemia, thrombocytopenia preclude pharmacology proph; mechanical of dubious benefit and possible harm (skin breakdown, falls) -activity as best as possible Admission and Anticipated Discharge Date Admission Date: March 12, 2020 Subjective actually feels much better than she did last night. fever, abdominal pain, inability to eat. fortunately ostomy was still working/no dropoff in throughput. does not complain of urinary sx. no cp no sob no cough no dyspnea later noted to be resting comfortably Review of Systems Review of Systems: All systems reviewed & are unremarkable except as noted in HPI & below Physical Exam Physical Exam: gen aaox3 pleasant, fatigued, nad. heent nc at mmm lungs quiet but cta b/l no rrw good effort no accessory muscles good effort abdomen soft nd surprsingly minimally tender at worst - far better than actually even earlier this week, no guarding no rebound no rigidity. ext no cyanosis. skin overall stable ashen appearance no icterus. no focal neuro deficits. Results & Data Results & Data ([facility]) Vital Signs (Past 12 Hours) Vital Signs Temp Pulse Pulse Resp BP BP Pulse Ox 03/13/20 17:41 98.6 F 86 16 124/58 L 100 03/13/20 16:41 97.7 F 90 16 118/58 L 94 03/13/20 15:55 87 03/13/20 15:41 98.8 F 87 16 110/57 L 93 03/13/20 15:40 98.8 F 87 16 110/57 L 93 03/13/20 15:10 98.4 F 87 16 110/57 L 03/13/20 14:56 98.4 F 87 16 110/57 L 94 03/13/20 14:39 98.1 F 92 H 18 104/52 L 94 03/13/20 13:30 97.9 F 85 16 113/64 97 03/13/20 13:28 98.2 F 87 18 113/56 L 92 03/13/20 12:30 97.9 F 85 18 100/52 L 97 03/13/20 12:00 98.4 F 86 20 104/56 L 93 03/13/20 11:43 98.4 F 86 16 92/51 L 93 03/13/20 11:26 98.2 F 87 17 95/62 L 95 03/13/20 11:25 98.2 F 87 18 91/44 L 95 03/13/20 08:17 98.1 F 92 H 17 105/57 L 94 PG Care Time/CCT Total # of Minutes Spent Total Time Spent with Patient: Total time spent is greater than 50% in coordination of care (as documented) at patient's floor/unit and/or counseling patient: Coding Level of Care Code 02758 Subseq Hosp Care Lvl 3 Diagnoses Pancolitis K51.00 Acute UTI N39.0 Neutropenia D70.9 Pancytopenia D61.818 Hypomagnesemia E83.42 Acute hypokalemia E87.6 Pelvic abscess History of colostomy Anasarca R60.1 Malnutrition E46 DVT prophylaxis Z29.9
[2020-03-14] MEDS ORDERED: Nursing to Pharmacy Communication SCH ×2 (01:30→22:00)
[2020-03-14] MEDS ORDERED: HEPARIN 100 UNIT/ML 5ML FLUSH FLUSH PRN (01:44)
[2020-03-14] MEDS: PIPERACILLIN/TAZOBACTAM 3.375 GM in DEXTROSE 5% 100 ML IV SCH ×3 (05:54→21:45)
[2020-03-14] MEDS: VANCOMYCIN HCL 750 MG in SODIUM CHLORIDE 0.9% 250 ML IV SCH (05:57)
[2020-03-14 06:02] LABS: Hematocrit (blood only) 23.5 % (37-47); Hemoglobin 7.6 g/dL (12.0-16.0); Mean Corpuscular Hemoglobin 28.9 pg (25-34); Mean Corpuscular Hgb Conc 32.3 g/dL (32-36); Mean Corpuscular Volume 89.4 fL (80-100); RDW Coefficient of Variation 19.3 % (11.5-14.5); RDW Standard Deviation 63.2 fL (36.4-46.3); Red Blood Count 2.63 M/uL (4.2-5.4); White Blood Count 3.22 K/uL (4.8-10.8)
[2020-03-14] MEDS: LEVOTHYROXINE SODIUM 100 MCG TABLET PO SCH (06:07)
[2020-03-14 06:14] LABS: Mean Platelet Volume 9.5 fL (7.4-10.4); Platelet Count 30 K/uL (130-400)
[2020-03-14 06:35] LABS: Eosinophils # (auto) 0.05 K/uL (0-0.5); Eosinophils % (auto) 1.6 %; Immature Granulocytes # (auto) 0.05 K/uL (0.00-0.02); Immature Granulocytes % (auto) 1.6 %; Lymphocytes # (auto) 0.28 K/uL (1.2-3.4); Lymphocytes % (auto) 8.7 %; Monocytes # (auto) 0.08 K/uL (0.11-0.59); Monocytes % (auto) 2.5 %; Neutrophils # (auto) 2.76 K/uL (1.4-6.5); Neutrophils % (auto) 85.6 %; Ovalocytes 1+; Tear Drop Cells 1+
[2020-03-14 06:42] LABS: Albumin Level 1.6 gm/dl (3.4-5.0); BUN Creatinine Ratio 21.3 (10-20); Calcium 7.4 mg/dl (8.5-10.1); Est GFR (African American) 122.8; Magnesium 1.5 mg/dl (1.8-2.4); Potassium 2.7 mmol/L (3.5-5.1)
[2020-03-14 06:44] LABS: Albumin Globulin Ratio 0.5 (0.9-2); Bilirubin,Total 0.7 mg/dl (0.2-1); Globulin 3.4 gm/dl (2.5-4.0); Phosphorus 2.1 mg/dl (2.5-4.9)
[2020-03-14] MEDS ORDERED: POTASSIUM PHOS 3 MMOL/1 ML INFUSION IV STA (07:28)
[2020-03-14] MEDS ORDERED: POTASSIUM PHOSPHATE 15 MMOL in SODIUM CHLORIDE 0.9% 250 ML IV ONE (07:45)
[2020-03-14] MEDS: ASPIRIN 81 MG ECTAB PO SCH (07:56)
[2020-03-14] MEDS: POTASSIUM CHLORIDE 10 MEQ TABCR PO SCH (07:56)
[2020-03-14] MEDS: FOLIC ACID 1 MG TAB PO SCH (07:57)
[2020-03-14] MEDS: PANTOprazole 40 MG TAB PO SCH (07:57)
[2020-03-14] MEDS: POT PHOSPHATE MONOBASIC W/ SOD TAB PO SCH (07:57)
[2020-03-14] MEDS: MAGNESIUM OXIDE 400 MG TAB PO SCH ×4 (07:57→21:52)
[2020-03-14] MEDS: CITALOPRAM 40 MG TAB PO SCH (07:57)
[2020-03-14] MEDS: MAGNESIUM SULFATE / D5W 1 GM/100 ML BAG IV SCH ×2 (08:10→10:15)
[2020-03-14] MEDS ORDERED: POTASSIUM CHLORIDE 20 MEQ TABCR PO ONE (08:15)
--- NOTE | 2020-03-14 09:19 | History & Physical Report ---
Date of Service March 14, 2020 History of Present Illness Chief Complaint: Abnormal ct - neutropenic colitis Primary Care Provider: Zion Bartholomew MD 79 yo fm with stage iv lung cancer, copd, chf sigmoid ostomy, admitted thru the ER on 03/12/20 with abdominal pain. Imaging showing colitis in the colon, found to be neutropenic. Given neupogen yesterday. Diarrhea still present- mostly non bloody. No other complaints. Allergies Allergy/AdvReac Type Severity Reaction Status Date / Time nickel Allergy Intermediate Rash Verified 03/12/20 21:12 venlafaxine AdvReac Intermediate Hypertensio Verified 03/12/20 21:12 n,Headache clarithromycin AdvReac Mild Nausea/Vomi Verified 03/12/20 21:12 ting codeine AdvReac Mild UPSET Verified 03/12/20 21:12 STOMACH hydrocodone AdvReac Mild Nausea/Vomi Verified 03/12/20 21:12 ting metronidazole [From Flagyl] AdvReac Mild Gastrointestinal Verified 03/12/20 21:12 Upset Home Medications Home Medications Medication Instructions Recorded Confirmed Type folic acid 1 mg PO DAILY 08/04/19 03/12/20 History pantoprazole [Protonix] 40 mg PO QAM 08/30/19 03/12/20 History levothyroxine 100 mcg tablet 100 mcg PO QAM #90 tab 09/12/19 03/12/20 Rx aspirin [Aspir-81] 81 mg PO QAM 09/20/19 03/12/20 History citalopram 40 mg tablet 40 mg PO QAM #90 tab 01/09/20 03/12/20 Rx magnesium oxide 400 mg PO BID #20 tab 02/29/20 03/12/20 Rx torsemide 10 mg PO Q2D PRN 03/06/20 03/12/20 History ciprofloxacin HCl 500 mg PO BID 14 Days #28 tab 03/11/20 03/12/20 Rx fluconazole 100 mg PO Q3D 30 Days #20 tab 03/11/20 03/12/20 Rx oxycodone 5 mg PO Q6H PRN 03/12/20 03/12/20 History potassium chloride 10 meq PO QAM 03/12/20 03/12/20 History prochlorperazine maleate 5 mg PO TID PRN 03/12/20 03/12/20 History [Compazine] sod phos di, mono-K phos mono 1 tab PO DAILY 03/12/20 03/12/20 History [Virt-Phos 250 Neutral] Past Med/Surg History Medical History (Updated 03/13/20 @ 18:22 by Armani Domínguez DO) Adenocarcinoma, lung Adrenal cortical adenoma (Acute) Anasarca Anxiety Arthritis Biceps tendonitis Cataract Depression (Acute) Esophageal dyskinesia Essential hypertriglyceridemia (Acute) Fatigue Gastritis Gastroesophageal reflux disease (Acute) History of bronchitis History of diverticulitis (Resolved) Hyperlipidemia Hypothyroidism (Acute) Intermittent hydrarthrosis of elbow Irritable bowel syndrome (Acute) Lung cancer NEW DX Metastatic bone cancer radiation treatments completed 08/25/19. Olecranon bursitis Osteoarthritis Osteopenia (Acute) Pneumonia hx Sialoadenitis Surgical History History of cataract surgery RT/LEFT History of colonoscopy Dr. Veronica 12/2011 History of dilatation and curettage History of discectomy CERVICAL (GOOD ROM) History of repair of rotator cuff RT History of tooth extraction S/P section X 1 S/P hip replacement left. 07/02/2019. SAB with MAC. no issues. Family History Family/Other Family history of diabetes mellitus Brother Family hx of colon cancer Mother , age 66 Diabetes Cancer ovarian Coronary heart disease had acute [place] which led to her Sister Cancer Family/Other Breast cancer Father , age 49 Suicide Alcoholism Social History Preferred Language: Tunisian Communication Ability: Effective Visual Impairment: No Limitations Hearing Ability: Normal Pocket Assembler Required: No Beliefs That Will Affect Care: None marital status: / Current Living Situation: Family Current Living Situation Comment: Lives with grandson current occupational status: retired current occupation: worked at [employer] ([employer]) other: 1 daughter Feels Safe at Home: Yes Smoking Status: Current every day smoker Tobacco Type: cigarettes ; Age Started Using Tobacco: 21 ; packs per day: 0.5 ; Cigarettes Per Day: 6 ; Second Hand Exposure: No ; Hx Alcohol Use: No Hx Substance Use: No Childhood Exposure to Second-Hand Smoke: Yes (both parents) caffeine: Yes Dental Care, Regularly: No Seatbelt Use: always Review of Systems All systems reviewed & are unremarkable except as noted in HPI & below Physical Exam Physical Exam: Thin female in nad Eyes: PERRL, conjunctivae normal, anicteric sclerae Respiratory: no respiratory distress, no labored breathing and no retractions Gastrointestinal (Abdomen): normal bowel sounds, soft, nontender, no hepatosplenomegaly Neurologic: PERRL, EOMI, accommodation nl, no face palsy, no dysarthria Results & Data Vital Signs (Past 12 Hours) Vital Signs Temp Pulse Pulse Resp BP Pulse Ox Pulse Ox 03/14/20 07:29 36.7 C 78 18 117/61 96 03/14/20 03:47 36.7 C 85 18 116/60 92 03/14/20 00:28 96 03/13/20 23:15 36.6 C 84 18 107/61 96 03/13/20 22:26 80 wbc count has improved, platelet 30, hgb 7.6, hct 23.5 stable bun /cr low k lf'ts normal Ucx 03/12 + e coli Code Status & VTE Plan VTE Prophylaxis Plan VTE Prophylaxis will be ordered: Yes Supervising Physician Co-Signing Physician Notes Neutropenic colitis- does not appear to be right sided, this can occur with neutropenia. Neutropenic precautions, treat as infectious colitis for now with abx. would check stool studies if not done already.
[2020-03-14] MEDS: POTASSIUM CHLORIDE 20 MEQ TABCR PO SCH ×2 (12:35→21:46)
[2020-03-14] MEDS: NSS + 20MEQ KCL 20 MEQ/1,000 ML BAG IV SCH (13:44)
--- NOTE | 2020-03-14 18:05 | Hospitalist Progress Note ---
Date of Service March 14, 2020 Assessment & Plan (1) Pancolitis: symptomatically this fits best with the culprit for her current symptom complex. did improve on zosyn - continue for now. GI input regarding neutropenic enteritis appreciated. (2) Acute UTI: questionable - but after further review did have some vague urinary sx. zosyn covering. (3) Neutropenia: neutropenic fever -very concerning for her overall prognosis, given that she's been ill repeatedly and now with neutropenic fever -ddx seems to be the pancolitis picture on CT (which would fit with her sx last night) or UTI (which - will need to revisit sx - but seems less clear-cut to be the cause without overt urinary sx) -fortunately clinically improving and WBC improving. continue zosyn (since either enteritis, gram negative UTI, or both, are culprit and no clinical suspicion of a MRSA infection - can stop vanco) -follow closely (4) Pancytopenia: See above - worrisome that she's not only neutropenic but pancytopenic (and hasn't had chemo in quite a while given run of acute illnesses) -WBC did improve, anemia improved after 2 units PRBC, plt worse. -continue to follow - hopefully will rebound as infectious stress lets up (5) Hypomagnesemia: related to malnutrition replace (6) Acute hypokalemia: continue to replace related to malnutrition (7) Pelvic abscess: contniue antibiotics open-ended (difficulty will be that she developed this enteritis while on cipro/flagyl - so once she's doing well enough, may need to transition to ?augmentin) (8) History of colostomy: fortunately functioning has had stenosis - required manual dilation last week - was for f/u in [place] for surgical revision - so if bowel obstruction occurs would first assume ostomy stenosis and consult surgery, if doesn't occur, then outpt f/u (9) Anasarca: related to severe protein calorie malnutrition encourage PO intake (10) Malnutrition: severe protein calorie - see above, consider appetite stimulant, but concerning thing has been that she's been ill so much / so often that her [id number] courses of illness precludes eating and utilizes metabolic resources - so not sure increasing appetite would really remedy the problem. d/w pt my high level of concern in regards to this (11) DVT prophylaxis: anemia, thrombocytopenia preclude pharmacology proph; mechanical of dubious benefit and possible harm (skin breakdown, falls) -activity as best as possible (12) Discharge planning issues: came from home, anticipate that once she is medically stable enough she will go home have tried to gently broach into overall severity of illness at times to try to determine her goals of care. thus far she seems to be favoring an aggressive approach, although thus far it's not clear that she entirely grasps the severity of her illness. due to all she has been through, i have been approaching this gently rather than bluntly, but would want to continue to gently try to make her aware of her severity so that if she's continuing to choose aggressive treatment she has a full awareness of context, and if context would have her change her approach then we would be able to give her the opportunity to do so. Admission and Anticipated Discharge Date Admission Date: March 12, 2020 Subjective feeling better. belly pain better. did have some urinary sx but somewhat vague and better. GI input appreciated. Review of Systems Review of Systems: All systems reviewed & are unremarkable except as noted in HPI & below Physical Exam Physical Exam: gen aao pleasant but thin and frail nad heent nc at mmm breathing unlabored no accessory use good effort skin no rashes no pallor or icterus Results & Data Results & Data ([facility]) Vital Signs (Past 12 Hours) Vital Signs Temp Pulse Pulse Resp BP Pulse Ox 03/14/20 16:00 73 03/14/20 15:54 98.1 F 74 18 109/63 95 03/14/20 12:25 97.5 F L 73 20 112/58 L 95 03/14/20 11:24 81 03/14/20 07:29 98.1 F 78 18 117/61 96 PG Care Time/CCT Total # of Minutes Spent Total Time Spent with Patient: Total time spent is greater than 50% in coordination of care (as documented) at patient's floor/unit and/or counseling patient: Coding Level of Care Code 31910 Subseq Hosp Care Lvl 3 Diagnoses Pancolitis K51.00 Acute UTI N39.0 Neutropenia D70.9 Pancytopenia D61.818 Hypomagnesemia E83.42 Acute hypokalemia E87.6 Pelvic abscess History of colostomy Anasarca R60.1 Malnutrition E46 DVT prophylaxis Z29.9 Discharge planning issues Z02.9
[2020-03-14] MEDS ORDERED: MELATONIN 3 MG TAB PO PRN (20:42)
[2020-03-15] MEDS: NSS + 20MEQ KCL 20 MEQ/1,000 ML BAG IV SCH ×2 (02:10→14:49)
[2020-03-15] MEDS: ONDANSETRON INJ 2 MG/ML 2 ML VIAL IV PRN (03:23)
[2020-03-15] MEDS: PIPERACILLIN/TAZOBACTAM 3.375 GM in DEXTROSE 5% 100 ML IV SCH ×3 (06:04→21:09)
[2020-03-15] MEDS: LEVOTHYROXINE SODIUM 100 MCG TABLET PO SCH (06:12)
[2020-03-15 06:51] LABS: Hematocrit (blood only) 23.9 % (37-47); Mean Corpuscular Hemoglobin 29.3 pg (25-34); Mean Corpuscular Hgb Conc 33.5 g/dL (32-36); Mean Corpuscular Volume 87.5 fL (80-100); Mean Platelet Volume 10.3 fL (7.4-10.4); Platelet Count 25 K/uL (130-400); RDW Coefficient of Variation 19.3 % (11.5-14.5); RDW Standard Deviation 62.1 fL (36.4-46.3); Red Blood Count 2.73 M/uL (4.2-5.4); White Blood Count 4.84 K/uL (4.8-10.8)
[2020-03-15 06:52] LABS: Dohle Bodies 1+; Eosinophils # (auto) 0.07 K/uL (0-0.5); Eosinophils % (auto) 1.4 %; Immature Granulocytes # (auto) 0.04 K/uL (0.00-0.02); Immature Granulocytes % (auto) 0.8 %; Lymphocytes # (auto) 0.32 K/uL (1.2-3.4); Lymphocytes % (auto) 6.6 %; Monocytes # (auto) 0.33 K/uL (0.11-0.59); Monocytes % (auto) 6.8 %; Neutrophils # (auto) 4.08 K/uL (1.4-6.5); Neutrophils % (auto) 84.4 %; Platelet Estimate SIGNIFIC DECREASED (Normal)
[2020-03-15 06:55] LABS: Alanine Aminotransferase < 6 U/L (12-78); Albumin Globulin Ratio 0.4 (0.9-2); Albumin Level 1.6 gm/dl (3.4-5.0); Aspartate Aminotransferase 14 U/L (15-37); BUN Creatinine Ratio 16.5 (10-20); Blood Urea Nitrogen 5 mg/dl (7-18); Calcium 7.7 mg/dl (8.5-10.1); Carbon Dioxide 25 mmol/L (21-32); Chloride 108 mmol/L (98-107); Creatinine Clr Calc Pharmacy 130.5 ml/min; Est GFR (African American) 129.4; Est GFR (Non-African American) 111.7; Globulin 3.6 gm/dl (2.5-4.0); Glucose 90 mg/dl (70-99); Magnesium 1.6 mg/dl (1.8-2.4); Phosphorus 2.4 mg/dl (2.5-4.9); Potassium 2.8 mmol/L (3.5-5.1); Sodium 137 mmol/L (136-145); Total Protein 5.2 gm/dl (6.4-8.2)
[2020-03-15 06:57] LABS: Alkaline Phosphatase 59 U/L (45-117); Bilirubin,Total 0.3 mg/dl (0.2-1)
[2020-03-15] MEDS: FOLIC ACID 1 MG TAB PO SCH (08:00)
[2020-03-15] MEDS: ASPIRIN 81 MG ECTAB PO SCH (08:00)
[2020-03-15] MEDS: CITALOPRAM 40 MG TAB PO SCH (08:00)
[2020-03-15] MEDS: PANTOprazole 40 MG TAB PO SCH (08:00)
[2020-03-15] MEDS: MAGNESIUM OXIDE 400 MG TAB PO SCH ×2 (08:00→21:11)
[2020-03-15] MEDS: POT PHOSPHATE MONOBASIC W/ SOD TAB PO SCH (08:00)
[2020-03-15] MEDS: POTASSIUM CHLORIDE PWD 20 MEQ PACK PO SCH ×2 (08:00→21:10)
[2020-03-15] MEDS ORDERED: POTASSIUM PHOS 3 MMOL/1 ML INFUSION IV STA (08:48)
[2020-03-15] MEDS ORDERED: POTASSIUM PHOSPHATE 24 MMOL in SODIUM CHLORIDE 0.9% 500 ML IV ONE (09:00)
[2020-03-15] MEDS: MAGNESIUM SULFATE / D5W 1 GM/100 ML BAG IV SCH ×3 (09:28→13:27)
--- NOTE | 2020-03-15 10:21 | Hospitalist Progress Note ---
Date of Service March 15, 2020 Assessment & Plan (1) Pancolitis: 79-year-old female with stage IV metastatic bronchogenic carcinoma and pelvic abscesses admitted for neutropenic fever after recent discharge from hospital on 03/10. (1) Pancolitis: - symptomatically this fits best with the culprit for her current symptom complex. - did improve on zosyn - continue for now. - GI input regarding neutropenic enteritis appreciated. - CT abd/pelv showing "Moderate wall thickening throughout the colon is compatible with a nonspecific pancolitis. Air-fluid levels throughout nondilated large and small bowel suggests enteritis/diarrheal illness." (2) Acute UTI: - Urine culture growing E coli sensitive to ceftriaxone. Pt has questionable UTI sx; covered with Zosyn. Of note, E Coli resistant to Ciprofloxacin, levofloxacin, amp/sulbactam (3) Neutropenia: - neutropenic fever - concerning for her overall prognosis, given that she's been ill repeatedly and now with neutropenic fever - ddx seems to be the pancolitis picture on CT (which would fit with her sx last night) or UTI - fortunately clinically improving and WBC improving. continue zosyn (since either enteritis, gram negative UTI, or both, are culprit and no clinical suspicion of a MRSA infection - stopped vanco) - follow closely (4) Pancytopenia: - See above - worrisome that she's not only neutropenic but pancytopenic (and hasn't had chemo in quite a while given run of acute illnesses) - received one dose of Neupogen on admission - WBC did improve, anemia improved after 2 units PRBC, plt worse. - Heme/Onc input regarding management and likely etiology (chemo vs. recent infectious stress vs. worsening pathology) and additional supportive care measures with regard to Neupogen appreciated - continue to follow - hopefully will rebound as infectious stress lets up (5) Hypomagnesemia: related to malnutrition; repleted as needed (6) Acute hypokalemia: secondary to malnutrition; continue to replace as needed (7) Pelvic abscess: - previously managed on cipro and flagyl. - given neutropenic fever while on these; concern for resistance and may need to switch to other antibiotic (see above for resistance patterns of UTI. Prev. grew pseudomonas in culture of pelvic abscess) - she has repeatedly done well on IV Zosyn but appears to decompensate/become symptomatic on oral regimens. - transition to PO vs. continue outpatient IV Zosyn with port site? (8) History of colostomy: - functioning well. required manual dilation last week for stenosis; was for f/u in [place] for surgical revision - so if bowel obstruction occurs would first assume ostomy stenosis and consult surgery, if doesn't occur, then outpt f/u (9) Anasarca: - related to severe protein calorie malnutrition. encourage PO intake (10) Malnutrition: - severe protein calorie - see above, consider appetite stimulant, but concerning thing has been that she's been ill so much / so often that her [id number] courses of illness precludes eating and utilizes metabolic resources - so not sure increasing appetite would really remedy the problem. 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 Graham. Agree with history, exam findings, assessment and plan of care as outlined by Dr. Graham. In brief, Ms. Burgos is a 79 year old female with history of stage IV lung cancer and pelvic abscess admitted for neutropenic fever, found to have pancolitis and acute UTI. Today, she reports she is feeling better. Feels that her appetite has increased a little bit, although it is still low. VS, labs and nursing notes reviewed. She is a chronically ill appearing female. Lungs with good breath sounds, no wheezes or rales. Abdomen soft non-tender. 1. neutropenic pancolitis. s/p Neupogen in the ED on admission. Continue with zosyn. C. ciff negative. Stool cultures so far are negative. Ostomy output + occult blood. Appreciate GI input. 2. Acute UTI. E. coli. Continue with zosyn. 3. Neutropenia and pancytopenia. s/p Neupogen at admission. neutropenic precautions. Pancytopenia secondary to acute illness vs medication side effect from cipro and flagyl? Appreciate heme-onc input. 4. pelvic abscess. grew out pseudomonas from last admission. Stopped cipro and flagyl as zosyn will cover this for now. 5. Electrolyte disturbance. Monitor and replete. Likely due to poor PO intake (see below). 6. severe protein calorie malnutrition. increased appetite now that she is on zosyn. Can consider appetite stimulate. Appreciate co director input as well. Dispo: pending clinical improvement. Subjective Feeling better this morning. States that she felt ill the day after discharge, felt feverish and generally weak. Denies any constipation with colostomy, diarrhea, chills, shortness of breath, chest pain, chest pressure, vomiting, abdominal pain. Some nausea last night; did not improve with zofran. Review of Systems Constitutional: no fever, no chills, no body aches and no fatigue Respiratory: no cough and no dyspnea Cardiovascular: no chest pain, no dyspnea and no edema Gastrointestinal: + nausea; no abdominal pain, no vomiting, no constipation and no diarrhea/loose stools Genitourinary: no dysuria and no urinary frequency Physical Exam Constitutional: + ill appearing, + thin and cooperative; no acute distress Neck: normal visual inspection Respiratory: normal respiratory effort and able to speak in complete sentences; no respiratory distress, no labored breathing, no retractions, no cough and no audible wheezes Auscultation: lungs clear to auscultation bilaterally; no crackles, no rales, no rhonchi and no wheezes Cardiovascular: Rate/Rhythm: regular rate and regular rhythm Heart Sounds: normal S1 and normal S2; no gallop, no murmur and no cardiac rub Vessels: posterior tibial pulses present Extremities: no pedal edema and no edema Gastrointestinal (Abdomen): Inspection/Auscultation: abdomen normal to inspection and normal bowel sounds; abdomen not distended Percussion/Palpation: abdomen soft; abdomen nontender, no guarding, abdomen not rigid and no abdominal mass colostomy patent in LLQ, no overlying erythema or irritation Results & Data Results & Data ([facility]) Vital Signs (Past 12 Hours) Vital Signs Temp Pulse Pulse Resp BP Pulse Ox 03/15/20 07:28 36.6 C 74 18 119/59 L 93 03/14/20 23:29 76 03/14/20 22:27 36.8 C 78 18 110/61 92 Laboratory Results WBC 4.84 K/uL (4.8-10.8) 03/15/20 05:03 RBC 2.73 M/uL (4.2-5.4) L 03/15/20 05:03 Hgb 8.0 g/dL (12.0-16.0) L 03/15/20 05:03 Hct 23.9 % (37-47) L 03/15/20 05:03 MCV 87.5 fL (80-100) 03/15/20 05:03 MCH 29.3 pg (25-34) 03/15/20 05:03 MCHC 33.5 g/dL (32-36) 03/15/20 05:03 RDW Std Deviation 62.1 fL (36.4-46.3) H 03/15/20 05:03 RDW Coeff of Raymundo 19.3 % (11.5-14.5) H 03/15/20 05:03 Plt Count 25 K/uL (130-400) L* 03/15/20 05:03 MPV 10.3 fL (7.4-10.4) 03/15/20 05:03 Immature Gran % (Auto) 0.8 % 03/15/20 05:03 Neut % (Auto) 84.4 % 03/15/20 05:03 Lymph % (Auto) 6.6 % 03/15/20 05:03 [place] % (Auto) 6.8 % 03/15/20 05:03 Eos % (Auto) 1.4 % 03/15/20 05:03 Baso % (Auto) 0.0 % 03/15/20 05:03 Immature Gran # (Auto) 0.04 K/uL (0.00-0.02) H 03/15/20 05:03 Neut # (Auto) 4.08 K/uL (1.4-6.5) 03/15/20 05:03 Lymph # (Auto) 0.32 K/uL (1.2-3.4) L 03/15/20 05:03 [place] # (Auto) 0.33 K/uL (0.11-0.59) 03/15/20 05:03 Eos # (Auto) 0.07 K/uL (0-0.5) 03/15/20 05:03 Baso # (Auto) 0.00 K/uL (0-0.2) 03/15/20 05:03 Neutrophils % (Manual) 47.0 % 03/12/20 19:37 Band Neutrophils % 0.0 % 03/12/20 19:37 Lymphocytes % (Manual) 36.0 % 03/12/20 19:37 Prolymphocyte % 0.0 % 03/12/20 19:37 Reactive Lymphs % (Man) 0.0 % 03/12/20 19:37 Monocytes % (Manual) 8.0 % 03/12/20 19:37 Eosinophils % (Manual) 9.0 % 03/12/20 19:37 Plasma Cell % (Manual) 0.0 % 03/12/20 19:37 Neutrophils # (Manual) 0.27 K/uL (1.4-6.5) L 03/12/20 19:37 Total Absolute Neuts 0.27 K/uL (1.4-6.5) L* 03/12/20 19:37 Lymphocytes # (Manual) 0.21 K/uL (1.2-3.4) L 03/12/20 19:37 Total Abs Lymphocytes 0.21 K/uL (1.2-3.4) L 03/12/20 19:37 Monocytes # (Manual) 0.05 K/uL (0.11-0.59) L 03/12/20 19:37 Eosinophils # (Manual) 0.05 K/uL (0-0.5) 03/12/20 19:37 Large Granular Lymphs 0.0 % 03/12/20 19:37 Dohle Bodies 1+ 03/15/20 05:03 Platelet Estimate SIGNIFIC DECREASED (Normal) 03/15/20 05:03 Anisocytosis Present 03/12/20 19:37 Macrocytosis Present 03/13/20 10:02 Tear Drop Cells 1+ 03/14/20 05:00 Ovalocytes 1+ 03/14/20 05:00 PT 10.9 Seconds (9.0-12.0) 03/12/20 19:37 INR 1.0 (0.9-1.1) 03/12/20 19:37 APTT 33.9 Seconds (21.0-31.0) H 03/12/20 19:37 PTT Ratio 1.2 03/12/20 19:37 Fibrinogen 422 mg/dl (184-400) H 03/12/20 23:53 D-Dimer 13945 ug/L FEU (0-500) H* 03/12/20 23:53 Sodium 137 mmol/L (136-145) 03/15/20 05:03 Potassium 2.8 mmol/L (3.5-5.1) L 03/15/20 05:03 Chloride 108 mmol/L (98-107) H 03/15/20 05:03 Carbon Dioxide 25 mmol/L (21-32) 03/15/20 05:03 Anion Gap 4.0 (3-11) 03/15/20 05:03 BUN 5 mg/dl (7-18) L 03/15/20 05:03 Creatinine 0.29 mg/dl (0.6-1.2) L 03/15/20 05:03 Est Cr Clr Drug Dosing 130.5 ml/min 03/15/20 05:03 Est GFR ( Amer) 129.4 03/15/20 05:03 Est GFR (Non-Af Amer) 111.7 03/15/20 05:03 BUN/Creatinine Ratio 16.5 (10-20) 03/15/20 05:03 Glucose 90 mg/dl (70-99) 03/15/20 05:03 Lactate 0.8 mmol/L (0.4-2.0) 03/12/20 19:37 Calcium 7.7 mg/dl (8.5-10.1) L 03/15/20 05:03 Phosphorus 2.4 mg/dl (2.5-4.9) L 03/15/20 05:03 Magnesium 1.6 mg/dl (1.8-2.4) L 03/15/20 05:03 Total Bilirubin 0.3 mg/dl (0.2-1) 03/15/20 05:03 AST 14 U/L (15-37) L 03/15/20 05:03 ALT < 6 U/L (12-78) L 03/15/20 05:03 Alkaline Phosphatase 59 U/L (45-117) 03/15/20 05:03 Troponin I < 0.015 ng/ml (0-0.045) 03/12/20 19:37 Total Protein 5.2 gm/dl (6.4-8.2) L 03/15/20 05:03 Albumin 1.6 gm/dl (3.4-5.0) L 03/15/20 05:03 Globulin 3.6 gm/dl (2.5-4.0) 03/15/20 05:03 Albumin/Globulin Ratio 0.4 (0.9-2) L 03/15/20 05:03 Procalcitonin 0.54 ng/ml (0-0.5) H 03/12/20 19:37 Urine Color Dark Yellow 03/12/20 20:35 Urine Appearance Turbid (Clear) A 03/12/20 20:35 Urine pH 5.5 (4.5-7.5) 03/12/20 20:35 Ur Specific [place] 1.019 (1.000-1.030) 03/12/20 20:35 Urine Protein 1+ (Negative) H 03/12/20 20:35 Urine Glucose (UA) Negative (Negative) 03/12/20 20:35 Urine Ketones Negative (Negative) 03/12/20 20:35 Urine Blood 2+ (Negative) H 03/12/20 20:35 Urine Nitrite Negative (Negative) 03/12/20 20:35 Urine Bilirubin Negative (Negative) 03/12/20 20:35 Urine Urobilinogen Negative (Negative) 03/12/20 20:35 Ur Leukocyte Esterase 3+ (Negative) H 03/12/20 20:35 Urine WBC (Auto) >30 /hpf (0-5) H 03/12/20 20:35 Urine RBC (Auto) >30 /hpf (0-4) H 03/12/20 20:35 U Hyaline Cast (Auto) 1-5 /lpf (0-5) 03/12/20 20:35 U Epithel Cells (Auto) 10-20 /lpf (0-5) H 03/12/20 20:35 Urine Bacteria (Auto) 1+ (Negative) H 03/12/20 20:35 Urine Yeast Present (None Prsent) A 03/12/20 20:35 Stool Occult Bld Scrn Positive (Negative) A 03/15/20 Unknown Stl C. diff Tox B Gene Negative Cdiff Gene (Neg) 03/15/20 Unknown Blood Type O Positive 03/12/20 23:42 Antibody Screen NEGATIVE 03/12/20 23:42 Crossmatch See Detail 03/12/20 23:42 Resident Activity Tracking Resident Involvement: Resident Care Provided Care Provided: Adult Hospital Medicine (1) Adenocarcinoma of lung, stage 4 Laterality: unspecified laterality Qualified Code(s): C34.90 - Malignant neoplasm of unspecified part of unspecified bronchus or lung (2) Pathological fracture of left hip Encounter type: sequela Pathology associated with fracture: neoplastic disease Qualified Code(s): M84.552S - Pathological fracture in neoplastic disease, left femur, sequela
--- NOTE | 2020-03-15 10:32 | Gastroenterology Progress Note ---
Date of Service March 15, 2020 Assessment & Plan (1) Pancolitis: Concern for neutropenic colits. CT concerning for a pancolitis. -Obtain C diff & stool culture prior to any further recommendations. -Supportive care per primary team. Thank you for allowing us to participate in the care of this patient. If you should have any questions or concerns, do not hesitate to contact us at [phone] or [phone]. Admission and Anticipated Discharge Date Admission Date: March 12, 2020 Supervising Physician Co-Signing Physician Notes Agree with ANA LILIA Davis as above Abd: Soft, NT, ND, Ostomy draining brown semi-solid stool Stool studies ordered She is feeling better today Continue supportive care No plans for endoscopic workup Subjective Patient is a 79 yo female with neutropenic colitis. She was seen in on-call coverage yesterday by Dr. Olmos of [facility] who recommended stool studies. These have not yet been obtained. Aydee reports she is feeling better than yesterday. She reports 5 loose stools in the past 24 hours but believes that she is improving overall noting that the stool is becoming more formed. She reports one episode of abdominal cramping prior to having a bowel movement last night. She denies blood in the stool. She offers no new complaints. Her WBC count is 4,840 today. K is 2.8. H/H 8/23.9. Review of Systems Constitutional: no fever and no chills Respiratory: no cough Cardiovascular: no chest pain Gastrointestinal: + abdominal pain (improved) and + diarrhea/loose stools; no blood in stools Physical Exam Constitutional: WD/WN, vitals as above Respiratory: normal respiratory effort, lungs clear to auscultation Cardiovascular: RRR, no murmur, no edema Gastrointestinal (Abdomen): normal bowel sounds, soft, nontender, no hepatosplenomegaly Skin: no rashes, warm and dry Psychiatric: A+Ox3, euthymic affect Results & Data Results & Data ([facility]) Vital Signs (Past 12 Hours) Vital Signs Temp Pulse Pulse Resp BP Pulse Ox 03/15/20 07:28 36.6 C 74 18 119/59 L 93 03/14/20 23:29 76 PG Care Time/CCT Total # of Minutes Spent Total Time Spent with Patient: Total time spent is greater than 50% in coordination of care (as documented) at patient's floor/unit and/or counseling patient: Coding Level of Care Code 52087 Subseq Hosp Care Lvl 2 Diagnoses Pancolitis K51.00
--- NOTE | 2020-03-15 18:45 | Consultation Report ---
DATE OF CONSULTATION: 03/15/2020 REASON FOR CONSULTATION: Pancytopenia. CHIEF COMPLAINT: Abdominal pain and fever. HISTORY OF PRESENT ILLNESS: This patient has required chemotherapy with pembrolizumab, carboplatin and pemetrexed for a metastatic adenocarcinoma of the lung. Cycle #3 of this chemotherapy was administered on 03/04. At that time her CBC included a hemoglobin of 9.6, a white blood cell count of 14,510, and a platelet count of 238,000. She required hospitalization on 03/14 because of a temperature elevation and cytopenias. The CT scan of the abdomen showed evidence of colitis. Antibiotic therapy was started. Stool guaiacs were positive. Her admission CBC included a hemoglobin of 5.7, a white blood cell count of 1160, and a platelet count of 38,000. Today, the hemoglobin is 8.0, the white blood cell count is 4840, the absolute neutrophil count is 4080, and the platelet count is 25,000. No evidence of a consumption coagulopathy has been identified. She has recently received radiotherapy to the hip. PAST MEDICAL HISTORY: She has a history of bronchitis, an adrenal cortical adenoma, esophageal dyskinesia, gastritis, hyperlipidemia, hypothyroidism, and osteoarthritis. She has required cataract surgery and hip replacement surgery. She has had back pain that has been treated with a discectomy, and she has required surgical repair of a rotator cuff tear. SOCIAL HISTORY: She is a cigarette smoker. She denies the use of alcohol and illicit drugs. She does not have HIV risk factors. FAMILY HISTORY: Her mother of ovarian cancer. She knows of no additional unusual family history of neoplastic diseases or hematologic derangements. REVIEW OF SYSTEMS: GENERAL: Weight loss and decreased activity in association with chemotherapy. EYES: No visual impairment. No unusual eye redness. EAR, NOSE AND THROAT: No epistaxis, no gum bleeding, no sore throat. CHEST: Persistent productive cough, dyspnea on strenuous exertion. CARDIOVASCULAR: No anginal chest pain, no palpitations, no syncope. GASTROINTESTINAL: Intermittent abdominal pain with diarrhea. No dyspepsia. SKIN: No rash, no unusual bruising. NEUROLOGICAL: Gait intact. No focal areas of weakness or abnormal sensation. LYMPHATIC/HEMATOLOGIC: No lymphadenopathy. No petechiae. MUSCULOSKELETAL: No joint effusion, no muscle tenderness. PSYCHIATRIC: Oriented in 3 spheres. Memory intact. PHYSICAL EXAMINATION: GENERAL: Well-developed, thin female in no acute distress, looking her stated age. EYES: No conjunctivitis. No scleral icterus. NOSE: No mucosal inflammation, no unusual discharge. MOUTH: Mucous membranes moist. No gingival ulceration. NECK: Neck veins not distended. Thyroid not palpably enlarged. CHEST: Resonant to percussion. Expiration slightly prolonged on auscultation, scattered rhonchi. No rales. HEART: Rhythm regular. No murmur, gallop or friction rub. ABDOMEN: Diffuse abdominal tenderness. No palpable masses. No palpable organomegaly. MUSCULOSKELETAL: Muscle mass symmetrical. No joint effusion. NEUROLOGIC: Cranial nerves intact. Deep tendon reflexes symmetrical. PSYCHIATRIC: Oriented in 3 spheres. Memory intact. Affect appropriate. IMPRESSION: Cytopenias secondary to treatment effect and colitis. FORMULATION: The patient's cytopenias are almost certainly a consequence of her colitis and her recent treatment for her cancer. Her granulocyte count has recovered. Her platelets are somewhat lower than they were on admission. Platelet transfusion will be needed if her platelet count falls to less than 10,000 or if there is further evidence of bleeding with a platelet count of less than 50,000. Her stools have been guaiac positive in the recent past, so it can be assumed that gastrointestinal blood loss has contributed to her anemia. It can be anticipated that her blood counts will improve as the interval between her chemotherapy and blood sampling becomes longer and as her infection is brought under control. Further red blood cell administration may be required. MTDD
[2020-03-15] MEDS: LORazepam 0.5 MG TAB PO PRN (21:12)
[2020-03-16] MEDS: NSS + 20MEQ KCL 20 MEQ/1,000 ML BAG IV SCH ×2 (02:20→14:42)
[2020-03-16] MEDS: LEVOTHYROXINE SODIUM 100 MCG TABLET PO SCH (05:03)
[2020-03-16] MEDS: PIPERACILLIN/TAZOBACTAM 3.375 GM in DEXTROSE 5% 100 ML IV SCH ×3 (05:06→21:24)
[2020-03-16 06:38] LABS: Hematocrit (blood only) 23.9 % (37-47); Hemoglobin 7.9 g/dL (12.0-16.0); Mean Corpuscular Hemoglobin 29.6 pg (25-34); Mean Corpuscular Hgb Conc 33.1 g/dL (32-36); Mean Corpuscular Volume 89.5 fL (80-100); Mean Platelet Volume 10.4 fL (7.4-10.4); Platelet Count 32 K/uL (130-400); RDW Coefficient of Variation 18.8 % (11.5-14.5); RDW Standard Deviation 62.1 fL (36.4-46.3); Red Blood Count 2.67 M/uL (4.2-5.4); White Blood Count 3.97 K/uL (4.8-10.8)
[2020-03-16 07:13] LABS: Albumin Globulin Ratio 0.4 (0.9-2); Albumin Level 1.5 gm/dl (3.4-5.0); BUN Creatinine Ratio 6.3 (10-20); Bilirubin,Total 0.3 mg/dl (0.2-1); Calcium 7.5 mg/dl (8.5-10.1); Creatinine Clr Calc Pharmacy 124.5 ml/min; Est GFR (Non-African American) 110.4; Globulin 3.6 gm/dl (2.5-4.0); Magnesium 1.7 mg/dl (1.8-2.4); Phosphorus 2.3 mg/dl (2.5-4.9); Potassium 3.3 mmol/L (3.5-5.1); Total Protein 5.1 gm/dl (6.4-8.2)
[2020-03-16 07:21] LABS: Anisocytosis Present; Echinocytes 1+; Eosinophils # (auto) 0.15 K/uL (0-0.5); Eosinophils % (auto) 3.8 %; Immature Granulocytes # (auto) 0.03 K/uL (0.00-0.02); Immature Granulocytes % (auto) 0.8 %; Lymphocytes # (auto) 0.39 K/uL (1.2-3.4); Lymphocytes % (auto) 9.8 %; Monocytes # (auto) 0.38 K/uL (0.11-0.59); Monocytes % (auto) 9.6 %; Neutrophils # (auto) 3.02 K/uL (1.4-6.5)
[2020-03-16] MEDS ORDERED: POTASSIUM PHOS 3 MMOL/1 ML INFUSION IV STA (07:42)
[2020-03-16] MEDS ORDERED: POTASSIUM PHOSPHATE 21 MMOL in SODIUM CHLORIDE 0.9% 500 ML IV ONE (08:00)
[2020-03-16] MEDS: MAGNESIUM SULFATE / D5W 1 GM/100 ML BAG IV SCH ×2 (08:36→10:44)
[2020-03-16] MEDS: PANTOprazole 40 MG TAB PO SCH (08:36)
[2020-03-16] MEDS: MAGNESIUM OXIDE 400 MG TAB PO SCH ×2 (08:36→21:24)
[2020-03-16] MEDS: ASPIRIN 81 MG ECTAB PO SCH (08:36)
[2020-03-16] MEDS: POTASSIUM CHLORIDE PWD 20 MEQ PACK PO SCH ×2 (08:36→21:23)
[2020-03-16] MEDS: POT PHOSPHATE MONOBASIC W/ SOD TAB PO SCH (08:36)
[2020-03-16] MEDS: CITALOPRAM 40 MG TAB PO SCH (08:36)
[2020-03-16] MEDS: FOLIC ACID 1 MG TAB PO SCH (08:37)
[2020-03-16] MEDS: FILGRASTIM 300 MCG/ML VIAL SQ SCH (09:24)
--- NOTE | 2020-03-16 13:03 | Hospitalist Consultation ---
Date of Consultation March 16, 2020 Assessment & Plan (1) Pancolitis: 79-year-old female with stage IV metastatic bronchogenic carcinoma and pelvic abscesses admitted for neutropenic fever after recent discharge from hospital on 03/10. (1) Pancolitis infectious vs. inflammatory? - symptomatically this fits best with the culprit for her current symptom complex. - did improve on zosyn - continue for now. - GI input regarding neutropenic enteritis appreciated. - CT abd/pelv showing "Moderate wall thickening throughout the colon is compatible with a nonspecific pancolitis. Air-fluid levels throughout nondilated large and small bowel suggests enteritis/diarrheal illness." - Unsure if true infectious etiology in setting of no fevers during hospital stay, unreliable WBC count, - HIstorically patient has done very well on IV antibiotics and rapidly declined when flipped to PO. Given that she has port access, she has the option of continuing Zosyn treatment at home and slowly transitioning to PO with close follow up by PCP and home nursing. (2) Neutropenia: - neutropenic fever - concerning for her overall prognosis, given that she's been ill repeatedly and now with neutropenic fever - ddx seems to be the pancolitis picture on CT (which would fit with her sx last night) or UTI - fortunately clinically improving. continue zosyn - Evaluated by Heme/Onc: started on 300 mcg Neupogen daily (3) Pancytopenia: - See above - worrisome that she's not only neutropenic but pancytopenic (and hasn't had chemo in quite a while given run of acute illnesses) - received one dose of Neupogen on admission - WBC did improve, anemia improved after 2 units PRBC, plt worse. - see above re: Heme/onc (4) Acute UTI: - Urine culture growing E coli sensitive to ceftriaxone. Pt has questionable UTI sx; covered with Zosyn. Of note, E Coli resistant to Ciprofloxacin, levofloxacin, amp/sulbactam (5) Hypomagnesemia: related to malnutrition; repleted as needed (6) Acute hypokalemia: secondary to malnutrition; continue to replace as needed (7) Pelvic abscess: - previously managed on cipro and flagyl. - given neutropenic fever while on these; concern for resistance and may need to switch to other antibiotic (see above for resistance patterns of UTI. Prev. grew pseudomonas in culture of pelvic abscess) - she has repeatedly done well on IV Zosyn but appears to decompensate/become symptomatic on oral regimens. - transition to PO vs. continue outpatient IV Zosyn with port site? (8) History of colostomy: - functioning well. required manual dilation last week for stenosis; was for f/u in [place] for surgical revision - so if bowel obstruction occurs would first a ssume ostomy stenosis and consult surgery, if doesn't occur, then outpt f/u (9) Anasarca: - related to severe protein calorie malnutrition. encourage PO intake (10) Malnutrition: - severe protein calorie - see above, consider appetite stimulant, but concerning thing has been that she's been ill so much / so often that her [id number] courses of illness precludes eating and utilizes metabolic resources - so not sure increasing appetite would really remedy the problem. 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 Graham. Agree with history, exam findings, assessment and plan of care as outlined by Dr. Graham. In brief, Ms. Burgos is a 79 year old female with history of stage IV lung cancer and pelvic abscess admitted for neutropenic fever, found to have pancol itis and acute UTI. Today, she reports she is feeling better. Energy level is increasing. She is trying to eat more. Does have Boost at the bedside, but doesn't like the way it tastes--very chalky. VS, labs and nursing notes reviewed. She is a chronically ill appearing female. Color is better today. Lungs with good breath sounds, no wheezes or rales. Abdomen soft non-tender. 1. neutropenic pancolitis. s/p Neupogen in the ED on admission. Continue with zosyn. C. ciff negative. Stool cultures so far are negative. Ostomy output + occult blood. Appreciate GI input. 2. Acute UTI. E. coli. Continue with zosyn. 3. Neutropenia and pancytopenia. Pancytopenia secondary to acute illness vs medication side effect from cipro and flagyl? s/p Neupogen at admission, consulted with heme today. Will continue with daily neupogen 300mcg. neutropenic precautions. Appreciate heme-onc recommendations. 4. pelvic abscess. grew out pseudomonas from last admission. Stopped cipro and flagyl as zosyn will cover this for now. 5. Electrolyte disturbance. Monitor and replete. Likely due to poor PO intake (see below). 6. severe protein calorie malnutrition. Appetite is still low, but improving a bit. Discussed supplement options for home. Appreciate expander input as well. Dispo: Discussed sending home with IV abx as she has a port that is functioning well and has done home iV abx in the past. Would be treating both colitis, urinary tract infection and pelvic abscess with zosyn. Thinking at a minimum, may need a total of 10 days of abx to cover colitis. History of Present Illness Attending Physician: Irma House DO Allergies Allergy/AdvReac Type Severity Reaction Status Date / Time nickel Allergy Intermediate Rash Verified 03/12/20 21:12 venlafaxine AdvReac Intermediate Hypertensio Verified 03/12/20 21:12 n,Headache clarithromycin AdvReac Mild Nausea/Vomi Verified 03/12/20 21:12 ting codeine AdvReac Mild UPSET Verified 03/12/20 21:12 STOMACH hydrocodone AdvReac Mild Nausea/Vomi Verified 03/12/20 21:12 ting metronidazole [From Flagyl] AdvReac Mild Gastrointestinal Verified 03/12/20 21:12 Upset Home Medications Home Medications Medication Instructions Recorded Confirmed Type folic acid 1 mg PO DAILY 08/04/19 03/12/20 History pantoprazole [Protonix] 40 mg PO QAM 08/30/19 03/12/20 History levothyroxine 100 mcg tablet 100 mcg PO QAM #90 tab 09/12/19 03/12/20 Rx aspirin [Aspir-81] 81 mg PO QAM 09/20/19 03/12/20 History citalopram 40 mg tablet 40 mg PO QAM #90 tab 01/09/20 03/12/20 Rx magnesium oxide 400 mg PO BID #20 tab 02/29/20 03/12/20 Rx torsemide 10 mg PO Q2D PRN 03/06/20 03/12/20 History ciprofloxacin HCl 500 mg PO BID 14 Days #28 tab 03/11/20 03/12/20 Rx fluconazole 100 mg PO Q3D 30 Days #20 tab 03/11/20 03/12/20 Rx oxycodone 5 mg PO Q6H PRN 03/12/20 03/12/20 History potassium chloride 10 meq PO QAM 03/12/20 03/12/20 History prochlorperazine maleate 5 mg PO TID PRN 03/12/20 03/12/20 History [Compazine] sod phos di, mono-K phos mono 1 tab PO DAILY 03/12/20 03/12/20 History [Virt-Phos 250 Neutral] Patient History Medical History (Updated 03/14/20 @ 18:03 by Armani Domínguez DO) Adenocarcinoma, lung Adrenal cortical adenoma (Acute) Anasarca Anxiety Arthritis Biceps tendonitis Cataract Depression (Acute) Esophageal dyskinesia Essential hypertriglyceridemia (Acute) Fatigue Gastritis Gastroesophageal reflux disease (Acute) History of bronchitis History of diverticulitis (Resolved) Hyperlipidemia Hypothyroidism (Acute) Intermittent hydrarthrosis of elbow Irritable bowel syndrome (Acute) Lung cancer NEW DX Metastatic bone cancer radiation treatments completed 08/25/19. Olecranon bursitis Osteoarthritis Osteopenia (Acute) Pneumonia hx Sialoadenitis Surgical History History of cataract surgery RT/LEFT History of colonoscopy Dr. Veronica 12/2011 History of dilatation and curettage History of discectomy CERVICAL (GOOD ROM) History of repair of rotator cuff RT History of tooth extraction S/P section X 1 S/P hip replacement left. 07/02/2019. SAB with MAC. no issues. Family History Family/Other Family history of diabetes mellitus Brother Family hx of colon cancer Mother , age 66 Diabetes Cancer ovarian Coronary heart disease had acute OR which led to her Sister Cancer Family/Other Breast cancer Father , age 49 Suicide Alcoholism Social History Preferred Language: [place] Communication Ability: Effective Visual Impairment: No Limitations Hearing Ability: Normal Electronic Masking System Operator Required: No Beliefs That Will Affect Care: None marital status: / Current Living Situation: Family Current Living Situation Comment: Lives with grandson current occupational status: retired current occupation: worked at [employer] other: 1 daughter Feels Safe at Home: Yes Smoking Status: Current every day smoker Tobacco Type: cigarettes ; Age Started Using Tobacco: 21 ; packs per day: 0.5 ; Cigarettes Per Day: 6 ; Second Hand Exposure: No ; Hx Alcohol Use: No Hx Substance Use: No Childhood Exposure to Second-Hand Smoke: Yes (both parents) caffeine: Yes Dental Care, Regularly: No Seatbelt Use: always Review of Systems Constitutional: no fever, no chills, no body aches and no fatigue Respiratory: no cough and no dyspnea Cardiovascular: no chest pain, no dyspnea and no edema Gastrointestinal: no abdominal pain, no nausea, no vomiting, no constipation and no diarrhea/loose stools Genitourinary: no dysuria Physical Exam Constitutional: cooperative; no acute distress and not ill appearing Neck: normal visual inspection Respiratory: normal respiratory effort and able to speak in complete sentences; no respiratory distress, no labored breathing, no retractions, no cough and no audible wheezes Auscultation: lungs clear to auscultation bilaterally; no crackles, no rales, no rhonchi and no wheezes Cardiovascular: Rate/Rhythm: regular rate and regular rhythm Heart Sounds: normal S1 and normal S2; no gallop, no murmur and no cardiac rub Vessels: posterior tibial pulses present Extremities: no pedal edema and no edema Gastrointestinal (Abdomen): Inspection/Auscultation: abdomen normal to inspection and normal bowel sounds; abdomen not distended Percussion/Palpation: abdomen soft; abdomen nontender, no guarding, abdomen not rigid and no abdominal mass Colostomy intact without overlying erythema or irritation Results & Data Results & Data ([facility]) Vital Signs (Past 12 Hours) Vital Signs Temp Pulse Resp BP Pulse Ox 03/16/20 11:25 36.7 C 76 18 127/70 94 03/16/20 07:23 36.8 C 74 18 120/64 96 03/16/20 05:00 37.3 C 78 17 130/68 93 Laboratory Results WBC 3.97 K/uL (4.8-10.8) L 03/16/20 06:18 RBC 2.67 M/uL (4.2-5.4) L 03/16/20 06:18 Hgb 7.9 g/dL (12.0-16.0) L 03/16/20 06:18 Hct 23.9 % (37-47) L 03/16/20 06:18 MCV 89.5 fL (80-100) 03/16/20 06:18 MCH 29.6 pg (25-34) 03/16/20 06:18 MCHC 33.1 g/dL (32-36) 03/16/20 06:18 RDW Std Deviation 62.1 fL (36.4-46.3) H 03/16/20 06:18 RDW Coeff of Raymundo 18.8 % (11.5-14.5) H 03/16/20 06:18 Plt Count 32 K/uL (130-400) L 03/16/20 06:18 MPV 10.4 fL (7.4-10.4) 03/16/20 06:18 Immature Gran % (Auto) 0.8 % 03/16/20 06:18 Neut % (Auto) 76.0 % 03/16/20 06:18 Lymph % (Auto) 9.8 % 03/16/20 06:18 Camp % (Auto) 9.6 % 03/16/20 06:18 Eos % (Auto) 3.8 % 03/16/20 06:18 Baso % (Auto) 0.0 % 03/16/20 06:18 Immature Gran # (Auto) 0.03 K/uL (0.00-0.02) H 03/16/20 06:18 Neut # (Auto) 3.02 K/uL (1.4-6.5) 03/16/20 06:18 Lymph # (Auto) 0.39 K/uL (1.2-3.4) L 03/16/20 06:18 Camp # (Auto) 0.38 K/uL (0.11-0.59) 03/16/20 06:18 Eos # (Auto) 0.15 K/uL (0-0.5) 03/16/20 06:18 Baso # (Auto) 0.00 K/uL (0-0.2) 03/16/20 06:18 Neutrophils % (Manual) 47.0 % 03/12/20 19:37 Band Neutrophils % 0.0 % 03/12/20 19:37 Lymphocytes % (Manual) 36.0 % 03/12/20 19:37 Prolymphocyte % 0.0 % 03/12/20 19:37 Reactive Lymphs % (Man) 0.0 % 03/12/20 19:37 Monocytes % (Manual) 8.0 % 03/12/20 19:37 Eosinophils % (Manual) 9.0 % 03/12/20 19:37 Plasma Cell % (Manual) 0.0 % 03/12/20 19:37 Neutrophils # (Manual) 0.27 K/uL (1.4-6.5) L 03/12/20 19:37 Total Absolute Neuts 0.27 K/uL (1.4-6.5) L* 03/12/20 19:37 Lymphocytes # (Manual) 0.21 K/uL (1.2-3.4) L 03/12/20 19:37 Total Abs Lymphocytes 0.21 K/uL (1.2-3.4) L 03/12/20 19:37 Monocytes # (Manual) 0.05 K/uL (0.11-0.59) L 03/12/20 19:37 Eosinophils # (Manual) 0.05 K/uL (0-0.5) 03/12/20 19:37 Large Granular Lymphs 0.0 % 03/12/20 19:37 Dohle Bodies 1+ 03/15/20 05:03 Platelet Estimate SIGNIFIC DECREASED (Normal) 03/15/20 05:03 Anisocytosis Present 03/16/20 06:18 Macrocytosis Present 03/13/20 10:02 Tear Drop Cells 1+ 03/14/20 05:00 Ovalocytes 1+ 06/14/20 05:00 Echinocytes 1+ 03/16/20 06:18 PT 10.9 Seconds (9.0-12.0) 03/12/20 19:37 INR 1.0 (0.9-1.1) 03/12/20 19:37 APTT 33.9 Seconds (21.0-31.0) H 03/12/20 19:37 PTT Ratio 1.2 03/12/20 19:37 Fibrinogen 422 mg/dl (184-400) H 03/12/20 23:53 D-Dimer 16427 ug/L FEU (0-500) H* 03/12/20 23:53 Sodium 138 mmol/L (136-145) 03/16/20 06:18 Potassium 3.3 mmol/L (3.5-5.1) L D 03/16/20 06:18 Chloride 107 mmol/L (98-107) 03/16/20 06:18 Carbon Dioxide 26 mmol/L (21-32) 03/16/20 06:18 Anion Gap 5.0 (3-11) 03/16/20 06:18 BUN 2 mg/dl (7-18) L 03/16/20 06:18 Creatinine 0.30 mg/dl (0.6-1.2) L 03/16/20 06:18 Est Cr Clr Drug Dosing 124.5 ml/min 03/16/20 06:18 Est GFR ( Amer) 128.0 03/16/20 06:18 Est GFR (Non-Af Amer) 110.4 03/16/20 06:18 BUN/Creatinine Ratio 6.3 (10-20) L 03/16/20 06:18 Glucose 83 mg/dl (70-99) 03/16/20 06:18 Lactate 0.8 mmol/L (0.4-2.0) 03/12/20 19:37 Calcium 7.5 mg/dl (8.5-10.1) L 03/16/20 06:18 Phosphorus 2.3 mg/dl (2.5-4.9) L 03/16/20 06:18 Magnesium 1.7 mg/dl (1.8-2.4) L 03/16/20 06:18 Total Bilirubin 0.3 mg/dl (0.2-1) 03/16/20 06:18 AST 14 U/L (15-37) L 03/16/20 06:18 ALT 6 U/L (12-78) L 03/16/20 06:18 Alkaline Phosphatase 61 U/L (45-117) 03/16/20 06:18 Troponin I < 0.015 ng/ml (0-0.045) 03/12/20 19:37 Total Protein 5.1 gm/dl (6.4-8.2) L 03/16/20 06:18 Albumin 1.5 gm/dl (3.4-5.0) L 03/16/20 06:18 Globulin 3.6 gm/dl (2.5-4.0) 03/16/20 06:18 Albumin/Globulin Ratio 0.4 (0.9-2) L 03/16/20 06:18 Procalcitonin 0.54 ng/ml (0-0.5) H 03/12/20 19:37 Urine Color Dark Yellow 03/12/20 20:35 Urine Appearance Turbid (Clear) A 03/12/20 20:35 Urine pH 5.5 (4.5-7.5) 03/12/20 20:35 Ur Specific [place] 1.019 (1.000-1.030) 03/12/20 20:35 Urine Protein 1+ (Negative) H 03/12/20 20:35 Urine Glucose (UA) Negative (Negative) 03/12/20 20:35 Urine Ketones Negative (Negative) 03/12/20 20:35 Urine Blood 2+ (Negative) H 03/12/20 20:35 Urine Nitrite Negative (Negative) 03/12/20 20:35 Urine Bilirubin Negative (Negative) 03/12/20 20:35 Urine Urobilinogen Negative (Negative) 03/12/20 20:35 Ur Leukocyte Esterase 3+ (Negative) H 03/12/20 20:35 Urine WBC (Auto) >30 /hpf (0-5) H 03/12/20 20:35 Urine RBC (Auto) >30 /hpf (0-4) H 03/12/20 20:35 U Hyaline Cast (Auto) 1-5 /lpf (0-5) 03/12/20 20:35 U Epithel Cells (Auto) 10-20 /lpf (0-5) H 03/12/20 20:35 Urine Bacteria (Auto) 1+ (Negative) H 03/12/20 20:35 Urine Yeast Present (None Prsent) A 03/12/20 20:35 Stool Occult Bld Scrn Positive (Negative) A 03/15/20 Unknown Stl C. diff Tox B Gene Negative Cdiff Gene (Neg) 03/15/20 Unknown Blood Type O Positive 03/12/20 23:42 Antibody Screen NEGATIVE 03/12/20 23:42 Crossmatch See Detail 03/12/20 23:42 Resident Activity Tracking Resident Involvement: Resident Care Provided Care Provided: Adult Hospital Medicine (1) Adenocarcinoma of lung, stage 4 Laterality: unspecified laterality Qualified Code(s): C34.90 - Malignant neoplasm of unspecified part of unspecified bronchus or lung (2) Pathological fracture of left hip Encounter type: sequela Pathology associated with fracture: neoplastic disease Qualified Code(s): M84.552S - Pathological fracture in neoplastic disease, left femur, sequela
[2020-03-16] MEDS: LORazepam 0.5 MG TAB PO PRN (21:24)
[2020-03-17] MEDS: NSS + 20MEQ KCL 20 MEQ/1,000 ML BAG IV SCH ×2 (02:39→15:59)
[2020-03-17] MEDS: PIPERACILLIN/TAZOBACTAM 3.375 GM in DEXTROSE 5% 100 ML IV SCH ×3 (05:14→18:42)
[2020-03-17] MEDS: LEVOTHYROXINE SODIUM 100 MCG TABLET PO SCH (05:15)
[2020-03-17 06:22] LABS: Alanine Aminotransferase < 6 U/L (12-78); Albumin Level 1.6 gm/dl (3.4-5.0); Aspartate Aminotransferase 14 U/L (15-37); Blood Urea Nitrogen 2 mg/dl (7-18); Calcium 7.6 mg/dl (8.5-10.1); Carbon Dioxide 27 mmol/L (21-32); Chloride 107 mmol/L (98-107); Creatinine Clr Calc Pharmacy 121.8 ml/min; Est GFR (African American) 125.3; Est GFR (Non-African American) 108.1; Glucose 82 mg/dl (70-99); Hematocrit (blood only) 24.3 % (37-47); Hemoglobin 7.9 g/dL (12.0-16.0); Magnesium 1.6 mg/dl (1.8-2.4); Mean Corpuscular Hemoglobin 28.5 pg (25-34); Mean Corpuscular Hgb Conc 32.5 g/dL (32-36); Mean Corpuscular Volume 87.7 fL (80-100); Platelet Count 42 K/uL (130-400); Potassium 3.4 mmol/L (3.5-5.1); Red Blood Count 2.77 M/uL (4.2-5.4); Sodium 137 mmol/L (136-145); White Blood Count 6.21 K/uL (4.8-10.8)
[2020-03-17 06:24] LABS: Albumin Globulin Ratio 0.5 (0.9-2); Alkaline Phosphatase 68 U/L (45-117); Anisocytosis Present; Bilirubin,Total 0.2 mg/dl (0.2-1); Echinocytes 1+; Eosinophils # (auto) 0.24 K/uL (0-0.5); Eosinophils % (auto) 3.9 %; Globulin 3.4 gm/dl (2.5-4.0); Immature Granulocytes # (auto) 0.39 K/uL (0.00-0.02); Immature Granulocytes % (auto) 6.3 %; Lymphocytes % (auto) 8.1 %; Monocytes # (auto) 0.57 K/uL (0.11-0.59); Monocytes % (auto) 9.2 %; Neutrophils # (auto) 4.51 K/uL (1.4-6.5); Neutrophils % (auto) 72.5 %; Phosphorus 2.1 mg/dl (2.5-4.9); Spherocytes 1+
[2020-03-17] MEDS ORDERED: POTASSIUM PHOS 3 MMOL/1 ML INFUSION IV STA (07:18)
[2020-03-17] MEDS: PANTOprazole 40 MG TAB PO SCH (07:52)
[2020-03-17] MEDS: POTASSIUM CHLORIDE PWD 20 MEQ PACK PO SCH (07:52)
[2020-03-17] MEDS: FILGRASTIM 300 MCG/ML VIAL SQ SCH (07:52)
[2020-03-17] MEDS: FOLIC ACID 1 MG TAB PO SCH (07:53)
[2020-03-17] MEDS: MAGNESIUM OXIDE 400 MG TAB PO SCH (07:53)
[2020-03-17] MEDS: CITALOPRAM 40 MG TAB PO SCH (07:53)
[2020-03-17] MEDS: ASPIRIN 81 MG ECTAB PO SCH (07:53)
[2020-03-17] MEDS: POT PHOSPHATE MONOBASIC W/ SOD TAB PO SCH (07:53)
[2020-03-17] MEDS ORDERED: POTASSIUM PHOSPHATE 21 MMOL in SODIUM CHLORIDE 0.9% 500 ML IV ONE (08:00)
[2020-03-17] MEDS: MAGNESIUM SULFATE / D5W 1 GM/100 ML BAG IV SCH ×2 (08:09→10:11)
--- NOTE | 2020-03-17 09:54 | Discharge Summary ---
Date of Service March 17, 2020 Admission HPI Per Admitting Provider 79 yo fm with stage iv lung cancer, copd, chf sigmoid ostomy, admitted thru the ER on 03/12/20 with abdominal pain. Imaging showing colitis in the colon, found to be neutropenic. Given neupogen yesterday. Diarrhea still present- mostly non bloody. No other complaints. Admission Exam Per Admitting Provider Physical Exam: Thin female in nad Eyes: PERRL, conjunctivae normal, anicteric sclerae Respiratory: no respiratory distress, no labored breathing and no retractions Gastrointestinal (Abdomen): normal bowel sounds, soft, nontender, no hepatosplenomegaly Neurologic: PERRL, EOMI, accommodation nl, no face palsy, no dysarthria Principal Diagnosis Neutropenic Fever, Pancolitis Discharge Exam Constitutional: cooperative; no acute distress and not ill appearing Neck: normal visual inspection Respiratory: normal respiratory effort and able to speak in complete sentences; no respiratory distress, no labored breathing, no retractions, no cough and no audible wheezes Auscultation: lungs clear to auscultation bilaterally; no crackles, no rales, no rhonchi and no wheezes Cardiovascular: Rate/Rhythm: regular rate and regular rhythm Heart Sounds: normal S1 and normal S2; no gallop, no murmur and no cardiac rub Vessels: posterior tibial pulses present Extremities: no pedal edema and no edema Gastrointestinal (Abdomen): Inspection/Auscultation: abdomen normal to inspection and normal bowel sounds; abdomen not distended Percussion/Palpation: abdomen soft; abdomen nontender, no guarding, abdomen not rigid and no abdominal mass Colostomy intact without overlying erythema or irritation Discharge Data Allergies Allergy/AdvReac Type Severity Reaction Status Date / Time nickel Allergy Intermediate Rash Verified 03/12/20 21:12 venlafaxine AdvReac Intermediate Hypertensio Verified 03/12/20 21:12 n,Headache clarithromycin AdvReac Mild Nausea/Vomi Verified 03/12/20 21:12 ting codeine AdvReac Mild UPSET Verified 03/12/20 21:12 STOMACH hydrocodone AdvReac Mild Nausea/Vomi Verified 03/12/20 21:12 ting metronidazole [From Flagyl] AdvReac Mild Gastrointestinal Verified 03/12/20 21:12 Upset Consultations 03/12/20 21:39 ED Decision to Admit Stat 03/13/20 00:28 Consult Case Management - Discharge Planning Routine 03/13/20 10:57 Consult Gastroenterology Routine 03/15/20 13:46 Consult Oncology Routine Ordered Studies 03/12/20 19:21 CT abd pelvis IV con only Stat CT angio chest PE protocol Stat CT head/brain wo con Stat Hospital Course (1) Pancolitis: 79-year-old female with stage IV metastatic bronchogenic carcinoma and pelvic abscesses admitted for neutropenic fever after recent discharge from hospital on 03/10, found to have pancolitis. (1) Pancolitis infectious vs. inflammatory: CT abd/pelv showing "Moderate wall thickening throughout the colon is compatible with a nonspecific pancolitis. Air-fluid levels throughout nondilated large and small bowel suggests enteritis/diarrheal illness." Unsure if true infectious etiology in setting of no fevers during hospital stay, unreliable WBC count, however did improve on zosyn symptomatically. HIstorically patient has done very well on IV antibiotics and rapidly declined when flipped to PO. Given that she has port access, she has the option of continuing Zosyn treatment at home and slowly transitioning to PO with close follow up by PCP and home nursing. Of note, urine culture grew E. Coli sensitive to ceftriaxone but resistant to ciprofloxacin, levofloxacin, ampicillin/sulbactam. Unsure if patient's abdominal infection would also follow same resistance pattern, in which case very few antibiotics are available for coverage of gram negative, anaerobic and pseudomonal coverage. Keflex plus clindamycin would be an option for short term coverage without pseudomonas inclusion. Discharged home after receiving 5 days of Zosyn, to get 5 more days of continuous IV Zosyn infusion at home with home health nursing. (2) Neutropenia: received 3 days of Neupogen 300 mcg in the hospital to raise ANC. ANC on discharge >4,000. Evaluated by Heme/Onc service in hospital. (3) Malnutrition: severe protein calorie. consider appetite stimulant, but concerning thing has been that she's been ill so much / so often that her [id number] courses of illness precludes eating and utilizes metabolic resources - so not sure increasing appetite would really remedy the problem. Required daily replenishing of her potassium, magnesium and phospate. Discussed with her adding a protein shake and multivitamin to diet to increase protein and vitamin intake. All other medical conditions managed per home regimen. 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: (11) History of colostomy: (12) Port-A-Cath in place: (13) Adenocarcinoma of lung, stage 4: (14) Pathological fracture of left hip: (15) Chronic kidney disease, stage 3a: (16) Severe protein-calorie malnutrition: Total Time Total Time Spent Total Time Spent (In Minutes): Discharge Plan Discharge Items Patient Disposition: Home - Self-Care Reason For Visit: NEUTROPENIA, WEAKNESS Discharge Diagnosis: neutropenic fever, pancolitis Activity: Resume your previous activity Non-emergency contact: Primary Care Provider and Oncologist Call non-emergency contact if: you have any medication questions, your symptoms worsen and your temperature is above 101 Follow-up/Referrals: Zion Bartholomew MD [Primary Care Provider] - Diet: Regular Addtl Attending Provider Instructions: You were evaluated in the hospital for having a fever while neutropenic (having low white blood cell counts). A CT scan of your abdomen showed diffuse inflammation of your bowel wall, likely secondary to infection. You improved with initiation of IV antibiotics, and were also evaluated by the Hematology/Oncology team while in the hospital. Given the severity of your cancer and low blood counts, you were started on a new injection medication to help support your white blood cell counts. We also discussed going home on IV antibiotics given that you have previously declined when switched to an oral medication regimen. While nursing will be able to come by to help administer the medication, you will also need to access your port on your own to administer the medication. You will need to discuss with your PCP your options of switching to oral antibiotics that are in a different class than you were previously on. As we discussed, your electrolytes and general strength are lower and weaker due to your poor dietary intake and poor health reserve. Consider using a protein powder supplement in addition to multivitamin supplements to keep your levels up and give you more energy. Ensure is a brand alternative to Boost and may taste better. Most grocery stores and supplement stores carry a variety of these powders that you can mix with milk or ice cream to make into a shake. New Medications: - Zosyn 3.375gm continuous infusion once per day Pending Studies at Discharge: No Stand-Alone Forms: [facility] [id number], Smoking Cessation Medications and DC Order Prescriptions: New multivitamin Capsule 1 cap PO DAILY Qty: 30 RF: 0 Continued levothyroxine [Synthroid] 100 mcg tablet 100 mcg PO QAM Qty: 90 RF: 3 citalopram [Celexa] 40 mg tablet 40 mg PO QAM Qty: 90 RF: 3 folic acid 1 mg tablet 1 mg PO DAILY RF: 0 pantoprazole [Protonix] 40 mg tablet,delayed release (DR/EC) 40 mg PO QAM RF: 0 aspirin [Aspir-81] 81 mg Tablet,Delayed Release (Dr/Ec) 81 mg PO QAM RF: 0 magnesium oxide 400 mg (241.3 mg magnesium) tablet 400 mg PO BID Qty: 20 RF: 0 torsemide 10 mg tablet 10 mg PO Q2D PRN (Reason: Swelling) RF: 0 fluconazole 100 mg tablet 100 mg PO Q3D 30 Days Qty: 20 RF: 0 potassium chloride 10 mEq tablet extended release 10 meq PO QAM RF: 0 oxycodone 5 mg tablet 5 mg PO Q6H PRN (Reason: Pain) RF: 0 prochlorperazine maleate [Compazine] 5 mg tablet 5 mg PO TID PRN (Reason: Nausea And Vomiting) RF: 0 Virt-Phos 250 Neutral 250 mg tablet 1 tab PO DAILY RF: 0 Discontinued ciprofloxacin HCl 500 mg tablet 500 mg PO BID 14 Days Qty: 28 RF: 0 Discharge Orders: Discharge Order (Routine); Ordered 03/17/20 Ordered By: Maria Antonia Graham Admission Data Admit Date/Time: 03/12/20 23:07 Attending Provider: Irma House Admit Provider: Fernando Jennings Primary Care Provider: Zion Bartholomew Other Providers: Jaya Chapa ; Balta Kennedy ; Maria Antonia Graham ; Shawn Tinajero ; E[facility] Other Interventions: Discharge Summary Assessment (RN) Last Done: 03/17/20 16:01 Supervising Physician Co-Signing Physician Notes Patient seen and examined with PGY-1 Dr. Graham. Agree with history, exam findings, assessment and plan of care as outlined by Dr. Graham. In brief, Ms. Burgos is a 79 year old female with history of stage IV lung cancer and pelvic abscess admitted for neutropenic fever, found to have pancolitis and acute UTI. Today, she reports she is feeling better. Energy level is increasing. Eager to be discharge home to do antibiotics at home. Has had home nursing and IV antibiotics in the past. VS, labs and nursing notes reviewed. She is a chronically ill appearing female. Color is good today. Lungs with good breath sounds, no wheezes or rales. Abdomen soft non-tender. 1. neutropenic pancolitis. s/p Neupogen in the ED on admission. Continue with zosyn. C. ciff negative. Stool cultures so far are negative. Ostomy output + occult blood. Appreciate GI input. 2. Acute UTI. E. coli. Continue with zosyn. 3. Neutropenia and pancytopenia. Pancytopenia secondary to acute illness vs medication side effect from cipro and flagyl? s/p Neupogen at admission. Stop neupogen as ANC >800. Appreciate heme-onc recommendations. 4. pelvic abscess. grew out pseudomonas from last admission. Stopped cipro and flagyl as zosyn will cover this for now. 5. Electrolyte disturbance. Monitor and replete. Likely due to poor PO intake (see below). Appreciate nutrition recommendations. Will start multivitamin on discharge. 6. severe protein calorie malnutrition. Appetite is still low, but improving a bit. Discussed supplement options for home. Appreciate nutrition input as well. Dispo: Discharge home early this evening after last dose of zosyn. I personally spent 45 minutes discharge planning for this patient. Resident Activity Tracking Resident Involvement: Resident Care Provided Care Provided: Adult Hospital Medicine
== END 2020-03-17 19:17 | disposition home or self-care (01) | DRG 385 ==
LOC: ED 18:15 → SUATTDRO 23:07 → 2W 23:07

== ENCOUNTER 2020-03-30 09:13 | Inpatient (IN) ==
[2020-03-30] MEDS ORDERED: KETOROLAC TROMETHAMINE 15 MG/ML VIAL IV STA (09:40)
[2020-03-30] MEDS ORDERED: MoRPHine SULFATE 4 MG/ML 1 ML CARP\\VIAL IV PRN ×2 (09:40→13:41)
[2020-03-30] MEDS ORDERED: SODIUM CHLORIDE 0.9% 500 ML IV SCH (09:45)
--- NOTE | 2020-03-30 10:03 | Emergency Department Note ---
ED Visit Note This patient was seen in concert with Dr. Vasquez. We discussed and agreed upon the history, physical, assessment and plan. . Resident Activity Tracking Resident Involvement: Resident Care Provided Care Provided: Adult ED
--- NOTE | 2020-03-30 10:06 | Emergency Department Note ---
Impression & Plan Diffuse abdominal pain, SBO (small bowel obstruction), Vomiting, Hypomagnesemia ED Provider Note NAME: DAVID RODRIGUEZ AGE: 79 SEX: F : 1940 ARRIVES VIA: Walk-In INFORMANT: [Patient] ED PROVIDER(S): [Jeffry Vasquez MD] CHIEF COMPLAINT: Abdominal pain HISTORY OF PRESENT ILLNESS: The patient is a 79-year-old female presents with constant abdominal pain that began last night. She has had about 12 hours or so of symptoms. Patient states the pain is now a 10/10. She believes the pain is related to the fact that her ostomy is producing less stool. She is concerned about obstruction. The patient states that this morning, she began having nausea and she is now vomiting. Her abdominal pain is located in the area of her ostomy. No pain radiation. There has been no cough or congestion or fever. No chest pain or shortness of breath. She has had issues similar to this in the past for which she required a dilation of her ostomy site. REVIEW OF SYSTEMS: See HPI for pertinent positives and negatives. A total of ten systems were reviewed and were otherwise negative. PMHx/PSHx: See Below SOCIAL HISTORY: See Below. PHYSICAL EXAM: GENERAL: Patient is in moderate distress, actively vomiting. HEENT: No acute trauma, normocephalic atraumatic, mucous membranes moist, no nasal congestion, no scleral icterus. NECK: No stridor, no adenopathy, no meningismus, trachea is midline. LUNGS: Clear to auscultation bilaterally but diminished bilaterally, no wheeze, no rhonchi, breath sounds equal. HEART: Without murmurs gallops or rubs, mildly tachycardic, regular rhythm. ABDOMEN: Soft, diffusely moderately tender, bowel sounds positive, no hernias, ostomy with a small amount of stool noted in the bag. EXTREMITIES: No cyanosis, she does have mild bilateral pedal edema, edema is slightly worse than the left, there is bilateral chronic skin change, full range of motion of all the joints without pain or difficulty, no signs for acute trauma. NEUROLOGIC: Oriented x 3, no acute motor or sensory deficits, no focal weakness. SKIN: No rash, no jaundice, no diaphoresis. DIFFERENTIAL DIAGNOSIS: Appendicitis, ovarian cyst, ovarian torsion, infections, diverticulitis, UTI, obstruction, mesenteric ischemia, aortic pathology, inflammatory bowel disease, renal colic, PUD, pancreatitis, biliary pathology, hernia, volvulus, constipation, as well as other pathologies. EMERGENCY DEPARTMENT COURSE/PROCEDURES: ECG: Indication was abdominal pain. The EKG shows a normal sinus rhythm with a rate of 82. The QTc is 467. There is no ST elevation, no PVCs. Continuous Cardiac Monitoring: An order was placed for continuous cardiac monitoring. The monitor shows a rate of 66 with normal sinus rhythm. MEDICAL DECISION MAKING: There is a moderate leukocytosis at 17,000, this could be consistent with infection or potentially just her vomiting. She is anemic but her hemoglobin value is better today than it was with her last testing. She has a normal platelet count. Magnesium was low at 1.5. No kidney failure. No worrisome liver enzyme elevation. No evidence for pancreatitis. EKG shows a sinus rhythm, no acute ischemia. Abdominal and pelvis CT does show a small bowel obstruction. No evidence for free air or abscess. The patient was vomiting when I was in the room. She had her access port cannulated. She received IV saline, IV Phenergan and IV Zofran. She received IV magnesium for her lower magnesium value. She received IV Toradol for pain. She eventually had an NG tube placed to low intermittent suction. With the above treatment, the patient is feeling improved. She seems more comfortable. I did speak with general surgery. The patient is to be admitted medically as there is no acute surgical intervention required at this time. I spoke to the patient, I talked with case management. The on-call hospitalist has been consulted. Past Med/Surg History Medical History Adenocarcinoma, lung Adrenal cortical adenoma (Acute) Anasarca Anxiety Arthritis Biceps tendonitis Cataract Depression (Acute) Esophageal dyskinesia Essential hypertriglyceridemia (Acute) Fatigue Gastritis Gastroesophageal reflux disease (Acute) History of bronchitis History of diverticulitis (Resolved) Hyperlipidemia Hypothyroidism (Acute) Intermittent hydrarthrosis of elbow Irritable bowel syndrome (Acute) Lung cancer NEW DX Metastatic bone cancer radiation treatments completed 08/25/19. Olecranon bursitis Osteoarthritis Osteopenia (Acute) Pneumonia hx Sialoadenitis Surgical History History of cataract surgery RT/LEFT History of colonoscopy Dr. Veronica 12/2011 History of dilatation and curettage History of discectomy CERVICAL (GOOD ROM) History of repair of rotator cuff RT History of tooth extraction S/P section X 1 S/P hip replacement left. 07/02/2019. SAB with MAC. no issues. Family History Family/Other Family history of diabetes mellitus Brother Family hx of colon cancer Mother , age 66 Diabetes Cancer ovarian Coronary heart disease had acute DE which led to her Sister Cancer Family/Other Breast cancer Father , age 49 Suicide Alcoholism Social History Preferred Language: Bhutanese Communication Ability: Effective Visual Impairment: No Limitations Hearing Ability: Normal Staff Research Scientist Required: No Beliefs That Will Affect Care: None marital status: / Current Living Situation: Family Current Living Situation Comment: Lives with grandson current occupational status: retired current occupation: worked at [employer] ([employer]) Other Information That Helps Us Care for You: No other: 1 daughter Feels Safe at Home: Yes Safety Concerns: Afraid for Self Smoking Status: Current every day smoker Tobacco Type: cigarettes ; Age Started Using Tobacco: 21 ; packs per day: 0.5 ; Cigarettes Per Day: 6 ; Second Hand Exposure: No ; Hx Alcohol Use: No Hx Substance Use: No Childhood Exposure to Second-Hand Smoke: Yes (both parents) caffeine: Yes Dental Care, Regularly: No Seatbelt Use: always Allergies Allergies Allergy/AdvReac Type Severity Reaction Status Date / Time nickel Allergy Intermediate Rash Verified 03/30/20 09:45 venlafaxine AdvReac Intermediate Hypertensio Verified 03/30/20 09:45 n,Headache clarithromycin AdvReac Mild Nausea/Vomi Verified 03/30/20 09:45 ting codeine AdvReac Mild UPSET Verified 03/30/20 09:45 STOMACH hydrocodone AdvReac Mild Nausea/Vomi Verified 03/30/20 09:45 ting metronidazole [From Flagyl] AdvReac Mild Gastrointestinal Verified 03/30/20 09:45 Upset Home Meds Home Medications Medication Instructions Recorded Confirmed folic acid 1 mg PO QAM 08/04/19 03/30/20 pantoprazole [Protonix] 40 mg PO QAM 08/30/19 03/30/20 aspirin [Aspir-81] 81 mg PO QAM 09/20/19 03/30/20 torsemide 10 mg PO Q2D PRN 03/06/20 03/30/20 oxycodone 5 mg PO Q6H PRN 03/12/20 03/30/20 prochlorperazine maleate 5 mg PO TID PRN 03/12/20 03/30/20 [Compazine] multivitamin 1 cap PO QAM 03/30/20 03/30/20 potassium chloride 10 meq PO BID 03/30/20 03/30/20 Previous Rx's Medication Instructions Recorded levothyroxine 100 mcg tablet 100 mcg PO QAM #90 tab 09/12/19 citalopram 40 mg tablet 40 mg PO QAM #90 tab 01/09/20 magnesium oxide 400 mg PO BID #20 tab 02/29/20 fluconazole 100 mg PO Q3D 30 Days #20 tab 03/11/20 Results & Data (ED) Vital Signs Vital Signs - 24 hr 03/30/20 09:17 03/30/20 10:00 03/30/20 10:07 Temperature 36.4 C L Temperature Source Oral Pulse Rate 103 H 126 H Pulse Rate from SpO2 Sensor 83 Pulse Rhythm Regular Pulse Strength Normal Respiratory Rate 20 13 20 Respiratory Effort / Characteristics Non-Labored Spontaneous Respiratory Depth Normal Respiratory Pattern Regular Blood Pressure 121/75 153/73 H Blood Pressure Mean 90 109 Blood Pressure Position Sitting Pulse Oximetry 98 94 95 Oxygen Delivery Method Room Air Room Air Sepsis Recent Fever Within 48 Hours No Sepsis Action Taken by Nursing No Action Required 03/30/20 10:08 03/30/20 10:30 03/30/20 10:31 Temperature Temperature Source Pulse Rate 80 73 74 Pulse Rate from SpO2 Sensor 79 73 74 Pulse Rhythm Pulse Strength Respiratory Rate 20 18 19 Respiratory Effort / Characteristics Respiratory Depth Respiratory Pattern Blood Pressure 148/67 H Blood Pressure Mean 106 Blood Pressure Position Pulse Oximetry 95 95 95 Oxygen Delivery Method Sepsis Recent Fever Within 48 Hours Sepsis Action Taken by Nursing 03/30/20 11:00 03/30/20 11:02 03/30/20 11:03 Temperature Temperature Source Pulse Rate 74 75 73 Pulse Rate from SpO2 Sensor Pulse Rhythm Pulse Strength Respiratory Rate 20 24 19 Respiratory Effort / Characteristics Respiratory Depth Respiratory Pattern Blood Pressure 123/54 L Blood Pressure Mean 79 Blood Pressure Position Pulse Oximetry 96 Oxygen Delivery Method Room Air Sepsis Recent Fever Within 48 Hours Sepsis Action Taken by Nursing 03/30/20 11:30 03/30/20 11:31 Temperature Temperature Source Pulse Rate 74 74 Pulse Rate from SpO2 Sensor Pulse Rhythm Pulse Strength Respiratory Rate 17 17 Respiratory Effort / Characteristics Respiratory Depth Respiratory Pattern Blood Pressure 111/56 L Blood Pressure Mean 71 Blood Pressure Position Pulse Oximetry Oxygen Delivery Method Sepsis Recent Fever Within 48 Hours Sepsis Action Taken by Long-Term Medications Current Medication List: was personally reviewed by me Laboratory Data Attestation: I reviewed the patient's lab results. Result diagrams: 03/30/20 10:05 03/30/20 10:05 Lab Results 03/30/20 03/30/20 Range/Units 10:05 10:05 WBC 17.39 H (4.8-10.8) K/uL RBC 3.50 L (4.2-5.4) M/uL Hgb 10.4 L (12.0-16.0) g/dL Hct 32.7 L (37-47) % MCV 93.4 (80-100) fL MCH 29.7 (25-34) pg MCHC 31.8 L (32-36) g/dL RDW Std Deviation 72.0 H (36.4-46.3) fL RDW Coeff of Raymundo 21.5 H (11.5-14.5) % Plt Count 347 (130-400) K/uL MPV 8.6 (7.4-10.4) fL Immature Gran % (Auto) 0.7 % Neut % (Auto) 89.5 % Lymph % (Auto) 2.4 % [place] % (Auto) 6.9 % Eos % (Auto) 0.3 % Baso % (Auto) 0.2 % Neut # (Auto) 15.56 H (1.4-6.5) K/uL Lymph # (Auto) 0.42 L (1.2-3.4) K/uL [place] # (Auto) 1.20 H (0.11-0.59) K/uL Eos # (Auto) 0.05 (0-0.5) K/uL Baso # (Auto) 0.04 (0-0.2) K/uL Immature Gran # (Auto) 0.12 H (0.00-0.02) K/uL Anisocytosis Present Spherocytes 1+ Schistocytes 1+ Sodium 137 (136-145) mmol/L Potassium 3.5 (3.5-5.1) mmol/L Chloride 104 (98-107) mmol/L Carbon Dioxide 27 (21-32) mmol/L Anion Gap 6.0 (3-11) BUN 13 (7-18) mg/dl Creatinine 0.51 L (0.6-1.2) mg/dl Est Cr Clr Drug Dosing 68.5 ml/min Est GFR ( Amer) 107.5 Est GFR (Non-Af Amer) 92.8 BUN/Creatinine Ratio 24.9 H (10-20) Glucose 88 (70-99) mg/dl Calcium 9.0 (8.5-10.1) mg/dl Magnesium 1.5 L (1.8-2.4) mg/dl Total Bilirubin 0.2 (0.2-1) mg/dl AST 12 L (15-37) U/L ALT 7 L (12-78) U/L Alkaline Phosphatase 86 (45-117) U/L Total Protein 6.7 (6.4-8.2) gm/dl Albumin 2.1 L (3.4-5.0) gm/dl Globulin 4.6 H (2.5-4.0) gm/dl Albumin/Globulin Ratio 0.5 L (0.9-2) Lipase 74 (73-393) U/L Administered Medications Enoxaparin Sodium (Lovenox) 40 mg SQ DAILY@1400 JOSE E Stop: 04/29/20 14:29 Last Admin: 03/30/20 14:29 Dose: 40 mg Documented by: [id number] Potassium Chloride/Sodium Chloride (Normal Saline W/20 Meq Kcl) 20 meq in 1,000 mls @ 100 mls/hr IV .Q10H JOSE E Stop: 04/29/20 14:29 Last Admin: 03/30/20 14:26 Dose: 100 mls/hr Documented by: [id number] Discontinued Medications Sodium Chloride (Nss) 500 mls @ 999 mls/hr IV .Q31M JOSE E Stop: 03/30/20 10:15 Last Infusion: 03/30/20 10:49 Dose: 0 mls/hr Documented by: [id number] Admin: 03/30/20 10:11 Dose: 999 mls/hr Documented by: [id number] Promethazine HCl 6.25 mg/ (Sodium Chloride) 50.25 mls @ 201 mls/hr IV NOW STA Stop: 03/30/20 10:29 Last Admin: 03/30/20 11:03 Dose: Not Given Documented by: [id number] Magnesium Sulfate/Dextrose (Magnesium Sulfate / D5w) 1 gm in 100 mls @ 100 mls/hr IV Q1H JOSE E Stop: 03/30/20 12:41 Last Infusion: 03/30/20 13:53 Dose: 0 mls/hr Documented by: [id number] Admin: 03/30/20 12:05 Dose: 100 mls/hr Documented by: [id number] Infusion: 03/30/20 12:03 Dose: 0 mls/hr Documented by: [id number] Admin: 03/30/20 11:03 Dose: 100 mls/hr Documented by: [id number] Piperacillin Sod/Tazobactam (Sod 3.375 gm/ Dextrose) 115 mls @ 230 mls/hr IV ONE ONE; Protocol Stop: 03/30/20 14:59 Last Infusion: 03/30/20 14:59 Dose: 0 mls/hr Documented by: [id number] Admin: 03/30/20 14:26 Dose: 230 mls/hr Documented by: [id number] Ioversol (Optiray 320 100ml) 94 ml IV ONCE PRN PRN Reason: Interaction Checking Stop: 04/03/20 10:48 Last Admin: 03/30/20 10:50 Dose: 94 ml Documented by: [id number] Ketorolac Tromethamine (Toradol) 15 mg IV NOW STA Stop: 03/30/20 09:41 Last Admin: 03/30/20 10:11 Dose: 15 mg Documented by: [id number] Morphine Sulfate (Morphine Sulfate) 4 mg IV Q15M PRN PRN Reason: Pain Stop: 04/13/20 09:39 Last Admin: 03/30/20 10:11 Dose: 4 mg Documented by: [id number] Ondansetron HCl (Zofran) 4 mg IV NOW STA Stop: 03/30/20 10:16 Last Admin: 03/30/20 11:10 Dose: 4 mg Documented by: [id number] Promethazine HCl (Phenergan) Confirm Administered Dose 6.25 mg IV .STK-MED ONE Stop: 03/30/20 10:58 Last Admin: 03/30/20 11:03 Dose: 6.25 mg Documented by: [id number] Imaging Data Radiologist's Impression: XR KUB/Abdomen 1 view CLINICAL HISTORY: ngt placement tube position COMPARISON STUDY: 02/24/2020 FINDINGS: Contrast within the urinary tracts. Mild nonobstructive ileus. Nasogastric tube placed in the gastric fundus. IMPRESSION: Nasogastric tube placed in the gastric fundus. CT OF THE ABDOMEN AND PELVIS WITH CONTRAST CLINICAL HISTORY: Possible obstruction. Metastatic lung cancer. COMPARISON STUDY: CT of the abdomen and pelvis March 12, 2020. TECHNIQUE: Following IV administration of 94 mL of Optiray-320, axial images of the abdomen and pelvis were obtained from the lung bases to the proximal femurs. Images were reviewed in the axial, sagittal, and coronal planes. IV contrast was administered without complication. Automated exposure control was utilized for the study. A dose lowering technique was utilized adhering to the principles of ALARA. Oral contrast was administered. CT DOSE: 250.56 mGy.cm FINDINGS: Imaged portions of the lower chest demonstrate a small left pleural effusion. No pneumatosis, free air or portal venous gas is present. A small amount of ascites within the abdomen and pelvis is noted. No suspicious hepatic lesions are present. A 1.9 cm left adrenal nodule is unchanged from earlier exams. This is benign. The spleen, right adrenal gland and pancreas are unremarkable. There is no biliary or pancreatic ductal dilatation. There are gallstones within the gallbladder without evidence for acute cholecystitis. Apparent wall thickening of the distal stomach is probably due to underdistention. Mild left hydronephrosis is noted. There is mild right collecting system dilatation. Interval development of mild dilatation of the proximal small bowel is noted with transition point within the central abdomen on axial image 191 of 401. Wall thickening of multiple small bowel loops is again noted. This was shown on prior CT of March 12, 2020. Evaluation of the pelvis is compromised by streak artifact from a left hip arthroplasty. A diverting left lower quadrant colostomy is noted. Multiple gas and fluid containing pelvic collections are again noted. These were shown on prior exams. These favor abscesses. These include a 3.5 cm left anterior pelvic fluid collection and a 4.5 x 3.3 cm central pelvic fluid collection. A right presacral fluid collection measures 3.2 cm. Diffuse infiltration within the pelvis is noted. There is mesenteric edema. Pathologic fracture of the left acetabulum is again noted. This is unchanged. No additional metastasis within the left pubic bone is noted. The skeletal metastases are unchanged in appearance. Colonic diverticulosis is noted. Sigmoid wall thickening is noted. This was shown on prior examination. IMPRESSION: 1. Interval development of mild dilatation of the proximal small bowel without transition point within the central abdomen. Decompressed distal small bowel. This is consistent with a small bowel obstruction. Small amount of ascites. Me senteric infiltration. 2. Persistent wall thickening of multiple small bowel loops as shown on prior examination. This represents a nonspecific enteritis. 3. Interval development of mild left hydronephrosis and mild right collecting system dilatation. 4. Multiple fluid and gas containing pelvic fluid collections which were shown on prior exams. These favor abscesses. Persistent sigmoid colon wall thickening. 5. No significant change in several skeletal metastases since CT of March 12, 2020. Blood Pressure Blood Pressure Findings: Elevated blood pressure Blood Pressure Disposition: further management by hospitalist Discharge Plan Visit Data *Final* Discharge Date/Time: 03/30/20 13:19 Chief Complaint: Nausea Stated Complaint: NAUSEA,PAIN,COLOSTOMY ISSUES ED Provider: Jeffry Vsaquez ED Midlevel Provider: Elicia Paul Discharge Problem: Diffuse abdominal pain, SBO (small bowel obstruction), Vomiting, Hypomagnesemia Patient Disposition: Admitted As Inpatient Condition: Fair Discharge Instructions Interventions: ED Discharge Assessment Last Done: 03/30/20 13:19 Discharge Problem: Vomiting Qualifiers: Vomiting type: unspecified Vomiting Intractability: non-intractable Nausea presence: with nausea Qualified Code(s): R11.2 - Nausea with vomiting, unspecified
[2020-03-30] MEDS ORDERED: PROMETHAZINE HCL 6.25 MG in SODIUM CHLORIDE 0.9% 50 ML IV STA (10:15)
[2020-03-30] MEDS ORDERED: ONDANSETRON INJ 2 MG/ML 2 ML VIAL IV STA (10:15)
[2020-03-30 10:17] LABS: Basophils # (auto) 0.04 K/uL (0-0.2); Basophils % (auto) 0.2 %; Eosinophils # (auto) 0.05 K/uL (0-0.5); Eosinophils % (auto) 0.3 %; Hematocrit (blood only) 32.7 % (37-47); Hemoglobin 10.4 g/dL (12.0-16.0); Immature Granulocytes # (auto) 0.12 K/uL (0.00-0.02); Immature Granulocytes % (auto) 0.7 %; Lymphocytes # (auto) 0.42 K/uL (1.2-3.4); Lymphocytes % (auto) 2.4 %; Mean Corpuscular Hemoglobin 29.7 pg (25-34); Mean Corpuscular Hgb Conc 31.8 g/dL (32-36); Mean Corpuscular Volume 93.4 fL (80-100); Mean Platelet Volume 8.6 fL (7.4-10.4); Monocytes % (auto) 6.9 %; Neutrophils # (auto) 15.56 K/uL (1.4-6.5); Neutrophils % (auto) 89.5 %; Platelet Count 347 K/uL (130-400); RDW Coefficient of Variation 21.5 % (11.5-14.5); White Blood Count 17.39 K/uL (4.8-10.8)
[2020-03-30 10:34] LABS: Albumin Level 2.1 gm/dl (3.4-5.0); BUN Creatinine Ratio 24.9 (10-20); Creatinine Clr Calc Pharmacy 68.5 ml/min; Est GFR (African American) 107.5; Est GFR (Non-African American) 92.8; Magnesium 1.5 mg/dl (1.8-2.4); Potassium 3.5 mmol/L (3.5-5.1)
[2020-03-30 10:37] LABS: Albumin Globulin Ratio 0.5 (0.9-2); Bilirubin,Total 0.2 mg/dl (0.2-1); Globulin 4.6 gm/dl (2.5-4.0); Total Protein 6.7 gm/dl (6.4-8.2)
[2020-03-30 10:41] LABS: Anisocytosis Present; Schistocytes 1+; Spherocytes 1+
[2020-03-30] MEDS ORDERED: IOVERSOL 100ml IV PRN (10:49)
[2020-03-30] MEDS ORDERED: PROMETHAZINE 6.25 MG/50.25 ML NSS IV ONE (10:57)
[2020-03-30] MEDS: MAGNESIUM SULFATE / D5W 1 GM/100 ML BAG IV SCH ×3 (11:03→12:06)
--- NOTE | 2020-03-30 11:18 | CT Scan Report ---
CT OF THE ABDOMEN AND PELVIS WITH CONTRAST CLINICAL HISTORY: Possible obstruction. Metastatic lung cancer. COMPARISON STUDY: CT of the abdomen and pelvis March 12, 2020. TECHNIQUE: Following IV administration of 94 mL of Optiray-320, axial images of the abdomen and pelvi s were obtained from the lung bases to the proximal femurs. Images were reviewed in the axial, sagitt al, and coronal planes. IV contrast was administered without complication. Automated exposure contro l was utilized for the study. A dose lowering technique was utilized adhering to the principles of A NIKOLAI. Oral contrast was administered. CT DOSE: 250.56 mGy.cm FINDINGS: Imaged portions of the lower chest demonstrate a small left pleural effusion. No pneumatosi s, free air or portal venous gas is present. A small amount of ascites within the abdomen and pelvis is noted. No suspicious hepatic lesions are present. A 1.9 cm left adrenal nodule is unchanged from e arlier exams. This is benign. The spleen, right adrenal gland and pancreas are unremarkable. There is no biliary or pancreatic ductal dilatation. There are gallstones within the gallbladder without evid ence for acute cholecystitis. Apparent wall thickening of the distal stomach is probably due to under distention. Mild left hydronephrosis is noted. There is mild right collecting system dilatation. Inte rval development of mild dilatation of the proximal small bowel is noted with transition point within the central abdomen on axial image 191 of 401. Wall thickening of multiple small bowel loops is agai n noted. This was shown on prior CT of March 12, 2020. Evaluation of the pelvis is compromised by stre ak artifact from a left hip arthroplasty. A diverting left lower quadrant colostomy is noted. Multipl e gas and fluid containing pelvic collections are again noted. These were shown on prior exams. These favor abscesses. These include a 3.5 cm left anterior pelvic fluid collection and a 4.5 x 3.3 cm rigoberto tral pelvic fluid collection. A right presacral fluid collection measures 3.2 cm. Diffuse infiltratio n within the pelvis is noted. There is mesenteric edema. Pathologic fracture of the left acetabulum i s again noted. This is unchanged. No additional metastasis within the left pubic bone is noted. The s keletal metastases are unchanged in appearance. Colonic diverticulosis is noted. Sigmoid wall thicken ing is noted. This was shown on prior examination. IMPRESSION: 1. Interval development of mild dilatation of the proximal small bowel without transition point withi n the central abdomen. Decompressed distal small bowel. This is consistent with a small bowel obstruc tion. Small amount of ascites. Mesenteric infiltration. 2. Persistent wall thickening of multiple small bowel loops as shown on prior examination. This repre sents a nonspecific enteritis. 3. Interval development of mild left hydronephrosis and mild right collecting system dilatation. 4. Multiple fluid and gas containing pelvic fluid collections which were shown on prior exams. These favor abscesses. Persistent sigmoid colon wall thickening. 5. No significant change in several skeletal metastases since CT of March 12, 2020. ACT 112: Negative or not required by law. Electronically signed by: Александр Garay M.D. 03/30/2020 11:17 AM
--- NOTE | 2020-03-30 11:43 | History & Physical Report ---
Date of Service March 30, 2020 Assessment & Plan (1) SBO (small bowel obstruction): Patient's presence of small bowel obstruction seen on CT scan with a previous history of metastatic lung cancer and intra-abdominal abscesses with recent discharge from a colitis felt to possibly be diverticulitis. Patient was discharged on 17 March with 5 additional days of intravenous Zosyn therapy. Patient presents with vomiting and imaging signs consistent with a small bowel obstruction NG tube was placed and surgical consultation is undertaken. In the past however given the complexity of her previous abdominal issues if surgery would be to are required she would likely need transfer to a tertiary center. However the patient states she would not be interested in transfer to a tertiary center at any cost however she still wishes to be a full code while here in our facility despite her metastatic cancer. (2) Adenocarcinoma of lung, stage 4: Stage IV cancer of the lung with metastasis continuing to undergo chemotherapeutic treatment via Dr. Judd at the [facility] center most recently having a neutropenic issue earlier in March requiring Neupogen administration. Reportedly for next round of chemotherapy March 31. Patient says that she thinks her cancer treatment is going okay and she still wishes to be a full code (3) Hypomagnesemia: Her hypomagnesemia will be repleted in the ER (4) Hydroureteronephrosis: Patient is evidence of hydronephrosis seen on imaging but no worse than previous (5) Hypertension: Typically only takes torsemide for hypertension and also peripheral edema however this is on hold (6) Anemia: Patient has anemia of chronic disease associated with cancer chemotherapy her hemoglobin is 10 she is in the range that needs any consideration of transfusion (7) COPD (chronic obstructive pulmonary disease): Patient is COPD listed as room past medical history currently not on any active inhalers (8) Chronic kidney disease, stage 3a: Care must be taken with her n.p.o. status to hydrate appropriately (9) DVT prophylaxis: DVT prevention will be Lovenox History of Present Illness Primary Care Provider: Zion Bartholomew MD 79-F discharged from our facility March 17 after about of colitis and neutropenia secondary to chemotherapy for stage IV lung cancer. During that course the patient was given antibiotics and treated conservatively. He was found to have intra-abdominal abscesses which were not accessible by CT drainage and surgical management was geared toward more conservative care given her metastatic disease. The patient presents with constant abdominal pain just to the right of her colostomy that began last night. Patient states the pain is now a 10/10 and crampy. She believes the pain is related to the fact that her ostomy is producing less stool. She previously had her colostomy dialated is concerned about obstruction. The patient states that this morning, she began having nausea and she is now vomiting. CT scan of her abdomen suggests small bowel obstruction, she has persistent intra abdominal abscesses and evidence of metastatic disease There has been no cough or congestion or fever. No chest pain or shortness of breath. Allergies Allergy/AdvReac Type Severity Reaction Status Date / Time nickel Allergy Intermediate Rash Verified 03/30/20 09:45 venlafaxine AdvReac Intermediate Hypertensio Verified 03/30/20 09:45 n,Headache clarithromycin AdvReac Mild Nausea/Vomi Verified 03/30/20 09:45 ting codeine AdvReac Mild UPSET Verified 03/30/20 09:45 STOMACH hydrocodone AdvReac Mild Nausea/Vomi Verified 03/30/20 09:45 ting metronidazole [From Flagyl] AdvReac Mild Gastrointestinal Verified 03/30/20 09:45 Upset Home Medications Home Medications Medication Instructions Recorded Confirmed Type folic acid 1 mg PO QAM 08/04/19 03/30/20 History pantoprazole [Protonix] 40 mg PO QAM 08/30/19 03/30/20 History levothyroxine 100 mcg tablet 100 mcg PO QAM #90 tab 09/12/19 03/30/20 Rx aspirin [Aspir-81] 81 mg PO QAM 09/20/19 03/30/20 History citalopram 40 mg tablet 40 mg PO QAM #90 tab 01/09/20 03/30/20 Rx magnesium oxide 400 mg PO BID #20 tab 02/29/20 03/30/20 Rx torsemide 10 mg PO Q2D PRN 03/06/20 03/30/20 History fluconazole 100 mg PO Q3D 30 Days #20 tab 03/11/20 03/30/20 Rx oxycodone 5 mg PO Q6H PRN 03/12/20 03/30/20 History prochlorperazine maleate 5 mg PO TID PRN 03/12/20 03/30/20 History [Compazine] multivitamin 1 cap PO QAM 03/30/20 03/30/20 History potassium chloride 10 meq PO BID 03/30/20 03/30/20 History Past Med/Surg History Social History Preferred Language: Finnish Communication Ability: Effective Visual Impairment: No Limitations Hearing Ability: Normal 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 Required: No Beliefs That Will Affect Care: None marital status: / Current Living Situation: Family Current Living Situation Comment: Lives with grandson current occupational status: retired current occupation: worked at [employer] ([place]) other: 1 daughter Feels Safe at Home: Yes Smoking Status: Never smoker Tobacco Type: cigarettes ; Age Started Using Tobacco: 21 ; packs per day: 0.5 ; Cigarettes Per Day: 6 ; Second Hand Exposure: No ; Hx Alcohol Use: No Hx Substance Use: No Childhood Exposure to Second-Hand Smoke: Yes (both parents) caffeine: Yes Dental Care, Regularly: No Seatbelt Use: always Review of Systems Review of Systems: Moderate distress and fatigue no headache, blurry or double vision no speech or swallowing issues no chest pain, pressure or palpitations no shortness of breath, cough or wheezes Central to right-sided abdominal pain, with associated nausea and vomiting, she is still having colostomy output no dysuria, hematuria or frequency no focal joint pain or swelling no back pain, CVA tenderness or radicular pain no bruising, bleeding or rashes no focal signs of weakness or numbness or altered sensation no complaints or anxiety or depression. Physical Exam Physical Exam: The patient appeared chronically ill and very thin almost cachectic Vital signs as documented. Head exam is normocephalic atraumatic no scleral icterus Neck is without JVD, thyromegaly, or carotid bruits. Lungs are diminished at the bases no focal loss of breath sounds Cardiac exam, Rhythm is regular.. No murmurs, rubs or gallops. Abdominal exam reveals hypoactive bowel sounds, soft tenderness just to the midline medial to the left-sided ostomy Extremities are 1+ edematous and both show signs of chronic venous stasis, pedal pulses are normal. Neurologic exam is alert and oriented, no focal loss of strength or sensation Psychologically is with concerned with depression Results & Data Results & Data ([facility]) Vital Signs (Past 12 Hours) CT abd/pelvis 03/30 IMPRESSION: 1. Interval development of mild dilatation of the proximal small bowel without transition point within the central abdomen. Decompressed distal small bowel. This is consistent with a small bowel obstruction. Small amount of ascites. Mesenteric infiltration. 2. Persistent wall thickening of multiple small bowel loops as shown on prior examination. This represents a nonspecific enteritis. 3. Interval development of mild left hydronephrosis and mild right collecting system dilatation. 4. Multiple fluid and gas containing pelvic fluid collections which were shown on prior exams. These favor abscesses. Persistent sigmoid colon wall thickening. 5. No significant change in several skeletal metastases since CT of March 12, 2020. Vital Signs Temp Pulse Resp BP Pulse Ox 03/30/20 11:02 75 24 123/54 L 96 03/30/20 11:00 74 20 03/30/20 10:31 74 19 95 03/30/20 10:30 73 18 148/67 H 95 03/30/20 10:08 80 20 95 03/30/20 10:07 126 H 20 95 03/30/20 10:00 13 153/73 H 94 03/30/20 09:17 97.5 F L 103 H 20 121/75 98 PG Care Time/CCT Total # of Minutes Spent Total Time Spent with Patient: Total time spent is greater than 50% in coordination of care (as documented) at patient's floor/unit and/or counseling patient: Coding Level of Care Code 81309 Initial Inpt Care Lvl 3 Diagnoses SBO (small bowel obstruction) K56.609 Adenocarcinoma of lung, stage 4 C34.90 Laterality: unspecified laterality Hypomagnesemia E83.42 Hydroureteronephrosis N13.30 Hypertension I10 Hypertension type: essential hypertension Anemia D63.0 Anemia type: other cause Other causes of anemia: chronic disease, neoplastic COPD (chronic obstructive pulmonary disease) J44.9 COPD type: unspecified COPD Chronic kidney disease, stage 3a N18.3 DVT prophylaxis Z29.9 (1) Adenocarcinoma of lung, stage 4 Laterality: unspecified laterality Qualified Code(s): C34.90 - Malignant neoplasm of unspecified part of unspecified bronchus or lung (2) Anemia Anemia type: other cause Other causes of anemia: chronic disease, neoplastic Qualified Code(s): D63.0 - Anemia in neoplastic disease (3) COPD (chronic obstructive pulmonary disease) COPD type: unspecified COPD Qualified Code(s): J44.9 - Chronic obstructive pulmonary disease, unspecified (4) Hypertension Hypertension type: essential hypertension Qualified Code(s): I10 - Essential (primary) hypertension
--- NOTE | 2020-03-30 11:49 | Electrocardiogram Report ---
Test Reason : Blood Pressure : / mmHG Vent. Rate : 082 BPM Atrial Rate : 082 BPM P-R Int : 130 ms QRS Dur : 082 ms QT Int : 400 ms P-R-T Axes : 074 038 074 degrees QTc Int : 467 ms Normal sinus rhythm Low voltage QRS Borderline ECG When compared with ECG of 12-MAR-2020 20:03, Nonspecific T wave abnormality, improved in Anterior leads Criteria for Septal infarct no longer present Confirmed by Pj Ruiz ([id number]) on 03/30/2020 11:48:51 AM Referred By: REFERRED SELF Confirmed By:Pj Ruiz
--- NOTE | 2020-03-30 12:04 | Surgery Consultation ---
Date of Consultation March 30, 2020 Assessment & Plan (1) SBO (small bowel obstruction): This is a 79yF with a PMH of metastatic lung cancer and sigmoid colectomy and end ostomy performed in October at [facility] for diverticulitis who presents to the [facility] ED on 03/30/20 with complaints of abdominal pain, nausea/vomiting. Workup in the ED revealed findings concerning for small bowel obstruction. CT also showed her chronic pelvic abscesses. WBC 17 today. Patient currently has some stool in ostomy, however there has been concern for stenosis of her stoma. She is anxious about having stoma digitized at this time able secondary to discomfort. Her colorectal surgeon's office has not yet reached out to her regarding an appointment for follow-up since her most recent discharge. Patient was asked if she would consider transfer of care should she require surgery or revision of her ostomy, however at this time she is currently refusing. At this time we will recommend a trial of conservative measures. Appreciate medicine admit and management of patient. - NGT was placed, currently no output. KUB is ordered to evaluate placement - Would consider resuming abx for chronic pelvic abscesses and elevated WBC to 17 - Will discuss with [facility] surgery considering resumption of patient care - May need to revisit possible transfer with patient pending her progress - Please call with any questions/concerns History of Present Illness History of Present Illness This is a 79yF with a PMH of metastatic lung cancer and sigmoid colectomy and end ostomy performed in October 2019 at [facility] for diverticulitis who presents to the [facility] ED on 03/30/20 with complaints of abdominal pain, nausea/vomiting. Patient reports the pain started yesterday night, was sharp in character, rating the pain a 10/10. Pain mostly located in mid abdomen and around ostomy site. She subsequently developed nausea/vomiting and came to the ED for further evaluation. In the ED patient underwent a CT a/p that revealed findings consistent with a small bowel obstruction, along with chronic pelvic abscesses. WBC 17, patient afebrile. She did vomit in the ED, brown in appearance. Patient reports her last meal was yesterday evening consisting of steak, green beans, and noodles. She states her ostomy is working, but is slower than normal. She reports that this episode feels somewhat different than her most recent episode of SBO. Which of note-- the patient was admitted earlier this month and required digital dilation of her stoma, due to concern for stoma stenosis causing her symptoms[facility] and recommended patient follow up with her colorectal surgeon upon discharge, however patient reports that the colorectal surgeon's office has not attempted to contact her to set up an appointment. She denies digitally dilating her stoma at home. Since arrival patient reports some improvement in her symptoms. Allergies Allergy/AdvReac Type Severity Reaction Status Date / Time nickel Allergy Intermediate Rash Verified 03/30/20 09:45 venlafaxine AdvReac Intermediate Hypertensio Verified 03/30/20 09:45 n,Headache clarithromycin AdvReac Mild Nausea/Vomi Verified 03/30/20 09:45 ting codeine AdvReac Mild UPSET Verified 03/30/20 09:45 STOMACH hydrocodone AdvReac Mild Nausea/Vomi Verified 03/30/20 09:45 ting metronidazole [From Flagyl] AdvReac Mild Gastrointestinal Verified 03/30/20 09:45 Upset Home Medications Home Medications Medication Instructions Recorded Confirmed Type folic acid 1 mg PO QAM 08/04/19 03/30/20 History pantoprazole [Protonix] 40 mg PO QAM 08/30/19 03/30/20 History levothyroxine 100 mcg tablet 100 mcg PO QAM #90 tab 09/12/19 03/30/20 Rx aspirin [Aspir-81] 81 mg PO QAM 09/20/19 03/30/20 History citalopram 40 mg tablet 40 mg PO QAM #90 tab 01/09/20 03/30/20 Rx magnesium oxide 400 mg PO BID #20 tab 02/29/20 03/30/20 Rx torsemide 10 mg PO Q2D PRN 03/06/20 03/30/20 History fluconazole 100 mg PO Q3D 30 Days #20 tab 03/11/20 03/30/20 Rx oxycodone 5 mg PO Q6H PRN 03/12/20 03/30/20 History prochlorperazine maleate 5 mg PO TID PRN 03/12/20 03/30/20 History [Compazine] multivitamin 1 cap PO QAM 03/30/20 03/30/20 History potassium chloride 10 meq PO BID 03/30/20 03/30/20 History Patient History Medical History Adenocarcinoma, lung Adrenal cortical adenoma (Acute) Anasarca Anxiety Arthritis Biceps tendonitis Cataract Depression (Acute) Esophageal dyskinesia Essential hypertriglyceridemia (Acute) Fatigue Gastritis Gastroesophageal reflux disease (Acute) History of bronchitis History of diverticulitis (Resolved) Hyperlipidemia Hypothyroidism (Acute) Intermittent hydrarthrosis of elbow Irritable bowel syndrome (Acute) Lung cancer NEW DX Metastatic bone cancer radiation treatments completed 08/25/19. Olecranon bursitis Osteoarthritis Osteopenia (Acute) Pneumonia hx Sialoadenitis Surgical History History of cataract surgery RT/LEFT History of colonoscopy Dr. Veronica 12/2011 History of dilatation and curettage History of discectomy CERVICAL (GOOD ROM) History of repair of rotator cuff RT History of tooth extraction S/P section X 1 S/P hip replacement left. 07/02/2019. SAB with MAC. no issues. Family History Family/Other Family history of diabetes mellitus Brother Family hx of colon cancer Mother , age 66 Diabetes Cancer ovarian Coronary heart disease had acute [place] which led to her Sister Cancer Family/Other Breast cancer Father , age 49 Suicide Alcoholism Social History Preferred Language: Korean Communication Ability: Effective Visual Impairment: No Limitations Hearing Ability: Normal [employer] Clerk Required: No Beliefs That Will Affect Care: None marital status: / Current Living Situation: Family Current Living Situation Comment: Lives with grandson current occupational status: retired current occupation: worked at [employer] ([employer] [place]) other: 1 daughter Feels Safe at Home: Yes Smoking Status: Never smoker Tobacco Type: cigarettes ; Age Started Using Tobacco: 21 ; packs per day: 0.5 ; Cigarettes Per Day: 6 ; Second Hand Exposure: No ; Hx Alcohol Use: No Hx Substance Use: No Childhood Exposure to Second-Hand Smoke: Yes (both parents) caffeine: Yes Dental Care, Regularly: No Seatbelt Use: always Review of Systems Constitutional: no fever and no chills Respiratory: no dyspnea Cardiovascular: no chest pain Gastrointestinal: + abdominal pain (mid abdomen and macarena-stoma), + bloating, + nausea and + vomiting Physical Exam Physical Exam: awake/alert Respiratory: no respiratory distress Gastrointestinal (Abdomen): Inspection/Auscultation: + abdomen distended (moderate) and + abdominal surgical scar (abdominal scar healing well ) Percussion/Palpation: + abdomen tender (ttp in central abdomen and macarena-ostomy) and abdomen soft + ostomy in left sided abdomen with + brown thick stool Results & Data Vital Signs (Past 12 Hours) Vital Signs Temp Pulse Resp BP Pulse Ox 03/30/20 11:02 75 24 123/54 L 96 03/30/20 11:00 74 20 03/30/20 10:31 74 19 95 03/30/20 10:30 73 18 148/67 H 95 03/30/20 10:08 80 20 95 03/30/20 10:07 126 H 20 95 03/30/20 10:00 13 153/73 H 94 03/30/20 09:17 36.4 C L 103 H 20 121/[address] OF THE ABDOMEN AND PELVIS WITH CONTRAST CLINICAL HISTORY: Possible obstruction. Metastatic lung cancer. COMPARISON STUDY: CT of the abdomen and pelvis March 12, 2020. TECHNIQUE: Following IV administration of 94 mL of Optiray-320, axial images of the abdomen and pelvis were obtained from the lung bases to the proximal femurs. Images were reviewed in the axial, sagittal, and coronal planes. IV contrast was administered without complication. Automated exposure control was utilized for the study. A dose lowering technique was utilized adhering to the principles of ALARA. Oral contrast was administered. CT DOSE: 250.56 mGy.cm FINDINGS: Imaged portions of the lower chest demonstrate a small left pleural effusion. No pneumatosis, free air or portal venous gas is present. A small amount of ascites within the abdomen and pelvis is noted. No suspicious hepatic lesions are present. A 1.9 cm left adrenal nodule is unchanged from earlier exams. This is benign. The spleen, right adrenal gland and pancreas are unremarkable. There is no biliary or pancreatic ductal dilatation. There are gallstones within the gallbladder without evidence for acute cholecystitis. Apparent wall thickening of the distal stomach is probably due to underdistention. Mild left hydronephrosis is noted. There is mild right collecting system dilatation. Interval development of mild dilatation of the proximal small bowel is noted with transition point within the central abdomen on axial image 191 of 401. Wall thickening of multiple small bowel loops is again noted. This was shown on prior CT of March 12, 2020. Evaluation of the pelvis is compromised by streak artifact from a left hip arthroplasty. A diverting left lower quadrant colostomy is noted. Multiple gas and fluid containing pelvic collections are again noted. These were shown on prior exams. These favor abscesses. These include a 3.5 cm left anterior pelvic fluid collection and a 4.5 x 3.3 cm central pelvic fluid collection. A right presacral fluid collection measures 3.2 cm. Diffuse infiltration within the pelvis is noted. There is mesenteric edema. Pathologic fracture of the left acetabulum is again noted. This is unchanged. No additional metastasis within the left pubic bone is noted. The skeletal metastases are unchanged in appearance. Colonic diverticulosis is noted. Sigmoid wall thickening is noted. This was shown on prior examination. IMPRESSION: 1. Interval development of mild dilatation of the proximal small bowel without transition point within the central abdomen. Decompressed distal small bowel. This is consistent with a small bowel obstruction. Small amount of ascites. Mesenteric infiltration. 2. Persistent wall thickening of multiple small bowel loops as shown on prior examination. This represents a nonspecific enteritis. 3. Interval development of mild left hydronephrosis and mild right collecting system dilatation. 4. Multiple fluid and gas containing pelvic fluid collections which were shown on prior exams. These favor abscesses. Persistent sigmoid colon wall thickening. 5. No significant change in several skeletal metastases since CT of March 12, 2020. ACT 112: Negative or not required by law. Electronically signed by: Александр Garay M.D. 03/30/2020 11:17 AM PG Care Time/CCT Total # of Minutes Spent Total Time Spent with Patient: Total time spent is greater than 50% in coordination of care (as documented) at patient's floor/unit and/or counseling patient: Coding Level of Care Code 56806 Initial Inpt Care Lvl 1 Diagnoses SBO (small bowel obstruction) K56.609
--- NOTE | 2020-03-30 12:53 | XRay Report ---
XR KUB/Abdomen 1 view CLINICAL HISTORY: ngt placement tube position COMPARISON STUDY: 02/24/2020 FINDINGS: Contrast within the urinary tracts. Mild nonobstructive ileus. Nasogastric tube placed in t he gastric fundus. IMPRESSION: Nasogastric tube placed in the gastric fundus. ACT 112: Negative or not required by law. The above report was generated using voice recognition software. It may contain grammatical, syntax or spelling errors. Electronically signed by: Dawson Dowell M.D. 03/30/2020 12:52 PM
[2020-03-30] MEDS ORDERED: PIPERACILL/TAZOBAC CONSULT ACTIVE PRN (13:41)
[2020-03-30] MEDS ORDERED: LORazepam 0.5 MG/1 ML VIAL IV PRN (13:41)
[2020-03-30] MEDS ORDERED: PROMETHAZINE HCL 12.5 MG in SODIUM CHLORIDE 0.9% 50 ML IV PRN (13:41)
[2020-03-30] MEDS: NSS + 20MEQ KCL 20 MEQ/1,000 ML BAG IV SCH (14:26)
[2020-03-30] MEDS ORDERED: ENOXAPARIN INJ 40 MG/0.4 ML SYR SQ SCH (14:30)
[2020-03-30] MEDS ORDERED: PIPERACILLIN/TAZOBACTAM 3.375 GM in DEXTROSE 5% 100 ML IV ONE (14:30)
[2020-03-30] MEDS: MoRPHine SULFATE 2 MG/ML CARP IV PRN ×2 (16:25→20:59)
[2020-03-30 17:23] LABS: Appearance Urine Clear (Clear); Bilirubin Urine Negative (Negative); Blood Urine Negative (Negative); Color Urine Yellow; Glucose Urine UA Negative (Negative); Ketones Urine Negative (Negative); Leukocyte Esterase Urine Negative (Negative); Nitrite Urine Negative (Negative); Protein Urine Negative (Negative); Specific Gravity Urine > 1.045 (1.000-1.030); Urobilinogen Urine Negative (Negative)
[2020-03-30] MEDS: PIPERACILLIN/TAZOBACTAM 3.375 GM in DEXTROSE 5% 100 ML IV SCH (19:46)
[2020-03-30] MEDS: ONDANSETRON INJ 2 MG/ML 2 ML VIAL IV PRN (21:55)
[2020-03-31] MEDS: NSS + 20MEQ KCL 20 MEQ/1,000 ML BAG IV SCH ×2 (00:38→10:59)
[2020-03-31] MEDS ORDERED: HEPARIN 100 UNIT/ML 5ML FLUSH FLUSH PRN (00:42)
[2020-03-31] MEDS: PIPERACILLIN/TAZOBACTAM 3.375 GM in DEXTROSE 5% 100 ML IV SCH (03:46)
[2020-03-31] MEDS: MoRPHine SULFATE 2 MG/ML CARP IV PRN ×3 (04:07→12:24)
[2020-03-31 07:01] LABS: BUN Creatinine Ratio 27.8 (10-20); Calcium 8.5 mg/dl (8.5-10.1); Creatinine Clr Calc Pharmacy 64.7 ml/min; Est GFR (African American) 105.5; Magnesium 1.8 mg/dl (1.8-2.4); Potassium 3.8 mmol/L (3.5-5.1)
--- NOTE | 2020-03-31 07:50 | Surgery Progress Note ---
Date of Service March 31, 2020 Assessment & Plan (1) Diffuse abdominal pain: Although there is output from the ostomy the orifice is narrow. This will probably need surgical intervention. I contacted Dr. Yasmeen Pena from the colorectal surgeons in [place] and she will accept the patient. Subjective She continues to have pain Small amount in colostomy bag NGT had 90 cc out overnight Physical Exam Gastrointestinal (Abdomen): Inspection/Auscultation: + abdomen distended Percussion/Palpation: + abdomen tender; no abdominal mass Ostomy orifice small and would not admit the tip of my finger Results & Data Vital Signs (Past 12 Hours) Vital Signs Temp Pulse Resp BP Pulse Ox 03/30/20 23:13 94 03/30/20 23:11 36.9 C 78 20 122/64 82 L Laboratory Results 03/31/20 03/30/20 03/30/20 Range/Units 05:19 16:34 16:30 WBC (4.8-10.8) K/uL RBC (4.2-5.4) M/uL Hgb (12.0-16.0) g/dL Hct (37-47) % MCV (80-100) fL MCH (25-34) pg MCHC (32-36) g/dL RDW Std Deviation (36.4-46.3) fL RDW Coeff of Raymundo (11.5-14.5) % Plt Count (130-400) K/uL MPV (7.4-10.4) fL Immature Gran % (Auto) % Neut % (Auto) % Lymph % (Auto) % Dubois % (Auto) % Eos % (Auto) % Baso % (Auto) % Neut # (Auto) (1.4-6.5) K/uL Lymph # (Auto) (1.2-3.4) K/uL Dubois # (Auto) (0.11-0.59) K/uL Eos # (Auto) (0-0.5) K/uL Baso # (Auto) (0-0.2) K/uL Immature Gran # (Auto) (0.00-0.02) K/uL Anisocytosis Spherocytes Schistocytes Sodium 139 (136-145) mmol/L Potassium 3.8 (3.5-5.1) mmol/L Chloride 108 H (98-107) mmol/L Carbon Dioxide 26 (21-32) mmol/L Anion Gap 5.0 (3-11) BUN 15 (7-18) mg/dl Creatinine 0.54 L (0.6-1.2) mg/dl Est Cr Clr Drug Dosing 64.7 ml/min Est GFR ( Amer) 105.5 Est GFR (Non-Af Amer) 91.0 BUN/Creatinine Ratio 27.8 H (10-20) Glucose 105 H (70-99) mg/dl POC Glucose 95 (70-99) mg/dl Calcium 8.5 (8.5-10.1) mg/dl Magnesium 1.8 (1.8-2.4) mg/dl Total Bilirubin (0.2-1) mg/dl AST (15-37) U/L ALT (12-78) U/L Alkaline Phosphatase (45-117) U/L Total Protein (6.4-8.2) gm/dl Albumin (3.4-5.0) gm/dl Globulin (2.5-4.0) gm/dl Albumin/Globulin Ratio (0.9-2) Lipase (73-393) U/L Urine Color Yellow Urine Appearance Clear (Clear) Urine pH 5.0 (4.5-7.5) Ur Specific [place] > 1.045 H (1.000-1.030) Urine Protein Negative (Negative) Urine Glucose (UA) Negative (Negative) Urine Ketones Negative (Negative) Urine Blood Negative (Negative) Urine Nitrite Negative (Negative) Urine Bilirubin Negative (Negative) Urine Urobilinogen Negative (Negative) Ur Leukocyte Esterase Negative (Negative) 03/30/20 03/30/20 Range/Units 10:05 10:05 WBC 17.39 H (4.8-10.8) K/uL RBC 3.50 L (4.2-5.4) M/uL Hgb 10.4 L (12.0-16.0) g/dL Hct 32.7 L (37-47) % MCV 93.4 (80-100) fL MCH 29.7 (25-34) pg MCHC 31.8 L (32-36) g/dL RDW Std Deviation 72.0 H (36.4-46.3) fL RDW Coeff of Raymundo 21.5 H (11.5-14.5) % Plt Count 347 (130-400) K/uL MPV 8.6 (7.4-10.4) fL Immature Gran % (Auto) 0.7 % Neut % (Auto) 89.5 % Lymph % (Auto) 2.4 % Dubois % (Auto) 6.9 % Eos % (Auto) 0.3 % Baso % (Auto) 0.2 % Neut # (Auto) 15.56 H (1.4-6.5) K/uL Lymph # (Auto) 0.42 L (1.2-3.4) K/uL Dubois # (Auto) 1.20 H (0.11-0.59) K/uL Eos # (Auto) 0.05 (0-0.5) K/uL Baso # (Auto) 0.04 (0-0.2) K/uL Immature Gran # (Auto) 0.12 H (0.00-0.02) K/uL Anisocytosis Present Spherocytes 1+ Schistocytes 1+ Sodium 137 (136-145) mmol/L Potassium 3.5 (3.5-5.1) mmol/L Chloride 104 (98-107) mmol/L Carbon Dioxide 27 (21-32) mmol/L Anion Gap 6.0 (3-11) BUN 13 (7-18) mg/dl Creatinine 0.51 L (0.6-1.2) mg/dl Est Cr Clr Drug Dosing 68.5 ml/min Est GFR ( Amer) 107.5 Est GFR (Non-Af Amer) 92.8 BUN/Creatinine Ratio 24.9 H (10-20) Glucose 88 (70-99) mg/dl POC Glucose (70-99) mg/dl Calcium 9.0 (8.5-10.1) mg/dl Magnesium 1.5 L (1.8-2.4) mg/dl Total Bilirubin 0.2 (0.2-1) mg/dl AST 12 L (15-37) U/L ALT 7 L (12-78) U/L Alkaline Phosphatase 86 (45-117) U/L Total Protein 6.7 (6.4-8.2) gm/dl Albumin 2.1 L (3.4-5.0) gm/dl Globulin 4.6 H (2.5-4.0) gm/dl Albumin/Globulin Ratio 0.5 L (0.9-2) Lipase 74 (73-393) U/L Urine Color Urine Appearance (Clear) Urine pH (4.5-7.5) Ur Specific [place] (1.000-1.030) Urine Protein (Negative) Urine Glucose (UA) (Negative) Urine Ketones (Negative) Urine Blood (Negative) Urine Nitrite (Negative) Urine Bilirubin (Negative) Urine Urobilinogen (Negative) Ur Leukocyte Esterase (Negative)
[2020-03-31] MEDS: ONDANSETRON INJ 2 MG/ML 2 ML VIAL IV PRN (07:59)
--- NOTE | 2020-03-31 09:06 | Discharge Summary ---
Date of Service March 31, 2020 Admission HPI Per Admitting Provider 79-F discharged from our facility March 17 after about of colitis and neutropenia secondary to chemotherapy for stage IV lung cancer. During that course the patient was given antibiotics and treated conservatively. He was found to have intra-abdominal abscesses which were not accessible by CT drainage and surgical management was geared toward more conservative care given her metastatic disease. The patient presents with constant abdominal pain just to the right of her colostomy that began last night. Patient states the pain is now a 10/10 and crampy. She believes the pain is related to the fact that her ostomy is producing less stool. She previously had her colostomy dialated is concerned about obstruction. The patient states that this morning, she began having nausea and she is now vomiting. CT scan of her abdomen suggests small bowel obstruction, she has persistent intra abdominal abscesses and evidence of metastatic disease There has been no cough or congestion or fever. No chest pain or shortness of breath. Principal Diagnosis Small Bowel Obstruction Discharge Exam Constitutional + ill appearing and + thin Eyes PERRL, conjunctivae normal, anicteric sclerae Neck normal visual inspection Respiratory normal respiratory effort, lungs clear to auscultation Cardiovascular Rate/Rhythm: regular rate and regular rhythm Heart Sounds: normal S1 and normal S2; no gallop, no murmur and no cardiac rub Extremities: no pedal edema Gastrointestinal (Abdomen) Inspection/Auscultation: abdomen not distended Percussion/Palpation: + abdomen tender (to light touch over whole abdomen) and + guarding ostomy site over LLQ minimal output, narrow appearing orifice Skin + turgor decreased Psychiatric A+Ox3, euthymic affect Discharge Data Allergies Allergy/AdvReac Type Severity Reaction Status Date / Time nickel Allergy Intermediate Rash Verified 03/30/20 09:45 venlafaxine AdvReac Intermediate Hypertensio Verified 03/30/20 09:45 n,Headache clarithromycin AdvReac Mild Nausea/Vomi Verified 03/30/20 09:45 ting codeine AdvReac Mild UPSET Verified 03/30/20 09:45 STOMACH hydrocodone AdvReac Mild Nausea/Vomi Verified 03/30/20 09:45 ting metronidazole [From Flagyl] AdvReac Mild Gastrointestinal Verified 03/30/20 09:45 Upset Consultations 03/30/20 11:34 ED Decision to Admit Stat 03/30/20 13:41 Consult General Surgery Stat 07/01/20 07:51 Consult Oncology Routine 03/31/20 09:00 Burn CD for patient Routine Ordered Studies 03/30/20 10:16 CT abd pelvis IV con only Stat Hospital Course (1) SBO (small bowel obstruction): 79-year-old female with stage IV metastatic bronchogenic carcinoma and pelvic abscesses admitted for neutropenic fever after recent discharge from hospital on 03/10, found to have pancolitis - presented with pain just right to her ostomy site with CT done in ER showing SBO Small Bowel Obstruction: Moderate to severe protein calorie malnutrition - CT abdomen/pelvis demonstrated: Interval development of mild dilatation of the proximal small bowel without transition point within the central abdomen. De compressed distal small bowel. This is consistent with a small bowel obstruction. Multiple fluid and gas containing pelvic fluid collections which were shown on prior exams. These favor abscesses. Persistent sigmoid colon wall thickening. - with history of previous bowel resection in October 2019 at [facility] called; accepted by Dr. Garza of colorectal surge ry to be place in Med/Surg - ACLS transportation arranged - will maintain IV fluids NSS w/ 20meq of KCl at 100mls/hr - NG tube in place, suction not available on transportation - IV Zofran as needed during transportation - NPO (2) Diffuse abdominal pain: Total Time Total Time Spent Total Time Spent (In Minutes): 30 Discharge Plan Discharge Items Patient Disposition: Transfer Acute Care Hospital Reason For Visit: SMALL BOWEL OBSTRUCTION Discharge Diagnosis: Small bowel obstruction Condition on Discharge: Fair Activity: Per Instructions section Non-emergency contact: Primary Care Provider, Surgeon, Senior Java Developer and Oncologist Call non-emergency contact if: you have any medication questions, your symptoms worsen and you have a fever Follow-up/Referrals: Zion Bartholomew MD [Primary Care Provider] - Diet: Nothing by Mouth Addtl Attending Provider Instructions: You were seen and admitted for concern of increased abdominal pain in the setting of previously having had abdominal surgery. During this time, it was noted that you have a small bowel obstruction and that your ostomy site was narrowed. After discussing this with our surgeon, it was deemed that it would be better for your care if you were transferred to [facility] where you previously had your surgery for your continued care. Pending Studies at Discharge: No Stand-Alone Forms: [facility] Skilled Items Patient informed of condition?: Yes DNR: No Discharge Level of Care: Other Communicable Disease: No Discharge Prognosis: Stable Lines: Peripheral IV Urinary Catheter: No Medications and DC Order Prescriptions: Continued levothyroxine [Synthroid] 100 mcg tablet 100 mcg PO QAM Qty: 90 RF: 3 citalopram [Celexa] 40 mg tablet 40 mg PO QAM Qty: 90 RF: 3 folic acid 1 mg tablet 1 mg PO QAM RF: 0 pantoprazole [Protonix] 40 mg tablet,delayed release (DR/EC) 40 mg PO QAM RF: 0 potassium chloride 20 mEq packet 10 meq PO BID RF: 0 multivitamin Capsule 1 cap PO QAM RF: 0 aspirin [Aspir-81] 81 mg Tablet,Delayed Release (Dr/Ec) 81 mg PO QAM RF: 0 magnesium oxide 400 mg (241.3 mg magnesium) tablet 400 mg PO BID Qty: 20 RF: 0 torsemide 10 mg tablet 10 mg PO Q2D PRN (Reason: Swelling) RF: 0 fluconazole 100 mg tablet 100 mg PO Q3D 30 Days Qty: 20 RF: 0 oxycodone 5 mg tablet 5 mg PO Q6H PRN (Reason: Pain) RF: 0 prochlorperazine maleate [Compazine] 5 mg tablet 5 mg PO TID PRN (Reason: Nausea And Vomiting) RF: 0 Discharge Orders: Discharge Order (Routine); Ordered 03/31/20 Ordered By: Hudson Herzog Admission Data Admit Date/Time: 03/30/20 12:00 Attending Provider: Laly Chinchilla Admit Provider: Pollo Moeller Primary Care Provider: Zion Bartholomew Other Providers: Pollo Moeller ; Bryson Lew Other Interventions: Discharge Summary Assessment (RN) Last Done: 03/31/20 11:55 DC Date/Time DO NOT enter until pt leaves facility: 03/31/20 13:02 Supervising Physician Co-Signing Physician Notes Resident Physician Supervision Note: I independently interviewed and examined the patient and verified the thorpe history and physical, reviewed labs and image studies, discussed the case with the resident Dr. Herzog and agree with the findings and care plan. Resident Activity Tracking Resident Involvement: Resident Care Provided Care Provided: Adult Hospital Medicine
== END 2020-03-31 13:02 | disposition short-term general hospital (02) | DRG 388 ==
LOC: ED 09:13 → SUATTDRO 12:00 → 3W 12:00

== ENCOUNTER 2020-08-09 11:54 | Inpatient (IN) ==
--- NOTE | 2020-08-09 12:39 | Emergency Department Note ---
History of Present Illness General Chief complaint: Cough Stated complaint: COUGH Time Seen by Provider: 08/09/20 12:18 Source: patient and family History of Present Illness This patient comes in with cough and illness since . She has a history of COPD as well as lung cancer that has metastasized. She is followed by the heme-onc clinic. Her last chemo was about 2 weeks ago. She did receive IV fluids last week for GI symptoms which have improved. She has an ostomy has normal output. She is had no fever. When she coughs has been yellow she says this feels like her typical bronchitis. She is a smoker. No chest pain or shortness of breath no lower extremity pain or swelling. No focal numbness or weakness. No change in taste or smell. No known exposure to coronavirus. She lives with her grandson. Home Medications Home Medications Medication Instructions Recorded Confirmed Type folic acid 1 mg PO QAM 08/04/19 08/09/20 History pantoprazole [Protonix] 40 mg PO QAM 08/30/19 08/09/20 History levothyroxine 100 mcg tablet 100 mcg PO QAM #90 tab 09/12/19 08/09/20 Rx citalopram 40 mg tablet 40 mg PO QAM #90 tab 01/09/20 08/09/20 Rx magnesium oxide 400 mg PO BID #20 tab 02/29/20 08/09/20 Rx prochlorperazine maleate 5 mg PO TID PRN 03/12/20 08/09/20 History [Compazine] multivitamin 1 cap PO QAM 03/30/20 08/09/20 History potassium chloride 10 meq PO BID 03/30/20 08/09/20 History lorazepam 0.5 mg tablet 0.5 mg PO Q12H PRN #60 tab 07/05/20 08/09/20 Rx oxycodone 5 mg tablet 5 mg PO Q6H PRN #120 tab 08/05/20 08/09/20 Rx amoxicillin-pot clavulanate 1 tab PO BID #20 tab 08/09/20 Rx [Augmentin] aspirin [Aspirin Low-Strength] 81 mg PO DAILY 08/09/20 08/09/20 History benzonatate [Tessalon Perles] 100 mg PO TID PRN #20 cap 08/09/20 Rx fluconazole [Diflucan] 200 mg PO Q72H PRN #5 tab 08/09/20 Rx Allergies Allergy/AdvReac Type Severity Reaction Status Date / Time nickel Allergy Intermediate Rash Verified 08/09/20 14:19 venlafaxine AdvReac Intermediate Hypertensio Verified 08/09/20 14:19 n,Headache clarithromycin AdvReac Mild Nausea/Vomi Verified 08/09/20 14:19 ting codeine AdvReac Mild UPSET Verified 08/09/20 14:19 STOMACH hydrocodone AdvReac Mild Nausea/Vomi Verified 08/09/20 14:19 ting metronidazole [From Flagyl] AdvReac Mild Gastrointestinal Verified 08/09/20 14:19 Upset Past Med/Surg History Medical History (Updated 08/09/20 @ 19:15 by Nikunj Mayer MD) Adenocarcinoma, lung Adrenal cortical adenoma Anasarca Anxiety Arthritis Biceps tendonitis Cataract Depression Esophageal dyskinesia Essential hypertriglyceridemia Fatigue Gastritis Gastroesophageal reflux disease History of bronchitis History of diverticulitis Hyperlipidemia Hypothyroidism Intermittent hydrarthrosis of elbow Irritable bowel syndrome Lung cancer NEW DX Metastatic bone cancer radiation treatments completed 08/25/19. Olecranon bursitis Osteoarthritis Osteopenia Pneumonia hx Sialoadenitis Surgical History History of cataract surgery RT/LEFT History of colonoscopy Dr. Veronica 12/2011 History of dilatation and curettage History of discectomy CERVICAL (GOOD ROM) History of repair of rotator cuff RT History of tooth extraction S/P section X 1 S/P hip replacement left. 07/02/2019. SAB with MAC. no issues. Family History Family/Other Family history of diabetes mellitus Brother Family hx of colon cancer Mother , age 66 Diabetes Cancer ovarian Coronary heart disease had acute [place] which led to her Sister Cancer Family/Other Breast cancer Father , age 49 Suicide Alcoholism Social History Smoking Status: Current every day smoker Tobacco Type: Cigarettes Age Started Using Tobacco: 21; packs per day: 0.5; Second Hand Exposure: No; Hx Alcohol Use: No Hx Substance Use: No Preferred Language: Amharic Communication Ability: Effective Visual Impairment: No Limitations Hearing Ability: Normal Matcher Operator Required: No Beliefs That Will Affect Care: None marital status: / Current Living Situation: Family Current Living Situation Comment: Lives with grandson current occupational status: retired current occupation: worked at [employer] ([employer]) other: 1 daughter Feels Safe at Home: Yes Childhood Exposure to Second-Hand Smoke: Yes (both parents) caffeine: Yes Dental Care, Regularly: No Seatbelt Use: always Assistive Devices: None Review of Systems A total of 10 systems reviewed and were otherwise negative Physical Exam Vital Signs Vital Signs - 24 hr 08/09/20 11:56 08/09/20 12:33 08/09/20 13:00 Temperature 36.8 C Temperature Source Oral Pulse Rate 85 75 Pulse Rate from SpO2 Sensor 75 Pulse Rhythm Regular Pulse Strength Normal Respiratory Rate 20 20 Respiratory Effort / Characteristics Non-Labored Spontaneous Respiratory Depth Normal Respiratory Pattern Regular Blood Pressure 121/66 100/53 L Blood Pressure Mean 84 59 Pulse Oximetry 96 97 Oxygen Delivery Method Room Air Room Air Sepsis Recent Fever Within 48 Hours No Sepsis New/Unexplained Change in Mental Status N/A Sepsis Action Taken by Nursing No Action Required 08/09/20 13:06 08/09/20 13:30 08/09/20 14:00 Temperature Temperature Source Pulse Rate 78 71 70 Pulse Rate from SpO2 Sensor 78 70 69 Pulse Rhythm Pulse Strength Respiratory Rate 21 22 25 H Respiratory Effort / Characteristics Respiratory Depth Respiratory Pattern Blood Pressure 108/53 L 107/56 L Blood Pressure Mean 76 74 Pulse Oximetry 96 96 Oxygen Delivery Method Sepsis Recent Fever Within 48 Hours Sepsis New/Unexplained Change in Mental Status Sepsis Action Taken by Nursing 08/09/20 14:30 08/09/20 15:00 08/09/20 15:30 Temperature Temperature Source Pulse Rate 72 71 73 Pulse Rate from SpO2 Sensor 73 71 73 Pulse Rhythm Pulse Strength Respiratory Rate 19 16 25 H Respiratory Effort / Characteristics Respiratory Depth Respiratory Pattern Blood Pressure 104/54 L 115/55 L 107/49 L Blood Pressure Mean 62 64 61 Pulse Oximetry 98 97 96 Oxygen Delivery Method Sepsis Recent Fever Within 48 Hours Sepsis New/Unexplained Change in Mental Status Sepsis Action Taken by Nursing 08/09/20 16:09 08/09/20 16:30 08/09/20 17:00 Temperature Temperature Source Pulse Rate 81 74 Pulse Rate from SpO2 Sensor 75 Pulse Rhythm Pulse Strength Respiratory Rate 21 20 27 H Respiratory Effort / Characteristics Respiratory Depth Respiratory Pattern Blood Pressure 91/49 L Blood Pressure Mean 55 Pulse Oximetry 95 Oxygen Delivery Method Sepsis Recent Fever Within 48 Hours Sepsis New/Unexplained Change in Mental Status Sepsis Action Taken by Nursing 08/09/20 17:30 08/09/20 18:00 08/09/20 18:30 Temperature Temperature Source Pulse Rate 77 80 74 Pulse Rate from SpO2 Sensor 77 79 75 Pulse Rhythm Pulse Strength Respiratory Rate 25 H 22 23 Respiratory Effort / Characteristics Respiratory Depth Respiratory Pattern Blood Pressure 103/50 L 100/55 L 94/48 L Blood Pressure Mean 65 63 64 Pulse Oximetry 93 95 94 Oxygen Delivery Method Sepsis Recent Fever Within 48 Hours Sepsis New/Unexplained Change in Mental Status Sepsis Action Taken by Nursing 08/09/20 19:00 Temperature Temperature Source Pulse Rate 75 Pulse Rate from SpO2 Sensor 75 Pulse Rhythm Pulse Strength Respiratory Rate 20 Respiratory Effort / Characteristics Respiratory Depth Respiratory Pattern Blood Pressure 105/51 L Blood Pressure Mean 60 Pulse Oximetry Oxygen Delivery Method Sepsis Recent Fever Within 48 Hours Sepsis New/Unexplained Change in Mental Status Sepsis Action Taken by Nursing General: Well developed well nourished older female who appears wearing a mask and in no acute distress, breathing comfortably on room air. Normal speech. Occasional dry cough. HEENT: Normal cephalic atraumatic. Pupils are equal round and reactive to light. Extraocular movements are intact. Oropharynx is pink with moist mucous membranes. No swelling of the mouth lips or tongue. Neck: Supple with a midline trachea. No meningeal signs or stiffness, no JVD or bruits. No Stridor. Chest: Clear to auscultation bilaterally. No wheezes or rhonchi. No increased work of breathing. Heart: Regular rate and rhythm without murmurs or gallops. Abdomen: Soft nontender, nondistended without rebound guarding or rigidity. She has an ostomy bag in the left abdomen. It is full of liquid stool without blood. There is a small opening which is a fistula medial to this that has no current drainage or redness or tenderness. Extremities: No cyanosis clubbing or edema. No calf tenderness or assymetry Spine/Back. Non tender to palpation. No CVA tenderness Skin: Good turgor without rashes. Neurologic exam: Cranial nerves two through 12 are intact. Motor and sensation are intact and symmetrical throughout. Course Administered Medications Discontinued Medications Amoxicillin/Clavulanate Potassium (Amoxicillin/Clavulanate 875 Mg Tab) 1 tab PO NOW ONE Stop: 08/09/20 14:32 Last Admin: 08/09/20 15:21 Dose: Not Given Documented by: [id number] Magnesium Sulfate/Dextrose (Magnesium Sulfate / D5w) 1 gm in 100 mls @ 100 mls/hr IV NOW STA Stop: 08/09/20 14:58 Last Infusion: 08/09/20 15:42 Dose: 0 mls/hr Documented by: [id number] Admin: 08/09/20 14:42 Dose: 100 mls/hr Documented by: [id number] Ceftazidime 1,000 mg/ Dextrose 50 mls @ 100 mls/hr IV ONE STA Stop: 08/09/20 15:44 Last Infusion: 08/09/20 17:22 Dose: 0 mls/hr Documented by: [id number] Admin: 08/09/20 16:52 Dose: 100 mls/hr Documented by: [id number] Medical Decision Making Differential Diagnosis Bronchitis, pneumonia, Covid, cancer related complication, COPD, sepsis, dehydration, cardiac disease, PE, electrolyte or metabolic abnormality Medical Records Attestation: I reviewed the patient's medical records. Home Medications Current Medication List: was personally reviewed by me Laboratory Data Attestation: I reviewed the patient's lab results. Result diagrams: 08/09/20 12:55 08/09/20 12:55 Lab Results 08/09/20 08/09/20 08/09/20 Range/Units 12:55 12:55 12:55 WBC 13.07 H (4.8-10.8) K/uL RBC 3.06 L (4.2-5.4) M/uL Hgb 8.6 L (12.0-16.0) g/dL Hct 27.3 L (37-47) % MCV 89.2 (80-100) fL MCH 28.1 (25-34) pg MCHC 31.5 L (32-36) g/dL RDW Std Deviation 53.2 H (36.4-46.3) fL RDW Coeff of Raymundo 16.4 H (11.5-14.5) % Plt Count 190 (130-400) K/uL MPV 9.4 (7.4-10.4) fL Immature Gran % (Auto) 0.9 % Neut % (Auto) 84.7 % Lymph % (Auto) 6.1 % [place] % (Auto) 6.5 % Eos % (Auto) 1.7 % Baso % (Auto) 0.1 % Neut # (Auto) 11.07 H (1.4-6.5) K/uL Lymph # (Auto) 0.80 L (1.2-3.4) K/uL [place] # (Auto) 0.85 H (0.11-0.59) K/uL Eos # (Auto) 0.22 (0-0.5) K/uL Baso # (Auto) 0.01 (0-0.2) K/uL Immature Gran # (Auto) 0.12 H (0.00-0.02) K/uL PT 11.4 (9.0-12.0) Seconds INR 1.1 (0.9-1.1) APTT 32.5 H (21.0-31.0) Seconds PTT Ratio 1.2 Sodium 138 (136-145) mmol/L Potassium 3.6 (3.5-5.1) mmol/L Chloride 106 (98-107) mmol/L Carbon Dioxide 28 (21-32) mmol/L Anion Gap 4.0 (3-11) BUN 11 (7-18) mg/dl Creatinine 0.61 (0.6-1.2) mg/dl Est Cr Clr Drug Dosing 53.9 ml/min Est GFR ( Amer) 100.6 Est GFR (Non-Af Amer) 86.8 BUN/Creatinine Ratio 18.5 (10-20) Glucose 79 (70-99) mg/dl Lactate (0.4-2.0) mmol/L Calcium 8.2 L (8.5-10.1) mg/dl Magnesium 1.4 L (1.8-2.4) mg/dl Total Bilirubin 0.2 (0.2-1) mg/dl AST 12 L (15-37) U/L ALT < 6 L (12-78) U/L Alkaline Phosphatase 109 (45-117) U/L Total Protein 6.5 (6.4-8.2) gm/dl Albumin 2.0 L (3.4-5.0) gm/dl Globulin 4.5 H (2.5-4.0) gm/dl Albumin/Globulin Ratio 0.4 L (0.9-2) Procalcitonin (0-0.5) ng/ml COVID-19 Eval Order COVID-19 PCR (Negative) 08/09/20 08/09/20 08/09/20 Range/Units 12:55 13:00 13:00 WBC (4.8-10.8) K/uL RBC (4.2-5.4) M/uL Hgb (12.0-16.0) g/dL Hct (37-47) % MCV (80-100) fL MCH (25-34) pg MCHC (32-36) g/dL RDW Std Deviation (36.4-46.3) fL RDW Coeff of Raymundo (11.5-14.5) % Plt Count (130-400) K/uL MPV (7.4-10.4) fL Immature Gran % (Auto) % Neut % (Auto) % Lymph % (Auto) % [place] % (Auto) % Eos % (Auto) % Baso % (Auto) % Neut # (Auto) (1.4-6.5) K/uL Lymph # (Auto) (1.2-3.4) K/uL [place] # (Auto) (0.11-0.59) K/uL Eos # (Auto) (0-0.5) K/uL Baso # (Auto) (0-0.2) K/uL Immature Gran # (Auto) (0.00-0.02) K/uL PT (9.0-12.0) Seconds INR (0.9-1.1) APTT (21.0-31.0) Seconds PTT Ratio Sodium (136-145) mmol/L Potassium (3.5-5.1) mmol/L Chloride (98-107) mmol/L Carbon Dioxide (21-32) mmol/L Anion Gap (3-11) BUN (7-18) mg/dl Creatinine (0.6-1.2) mg/dl Est Cr Clr Drug Dosing ml/min Est GFR ( Amer) Est GFR (Non-Af Amer) BUN/Creatinine Ratio (10-20) Glucose (70-99) mg/dl Lactate (0.4-2.0) mmol/L Calcium (8.5-10.1) mg/dl Magnesium (1.8-2.4) mg/dl Total Bilirubin (0.2-1) mg/dl AST (15-37) U/L ALT (12-78) U/L Alkaline Phosphatase (45-117) U/L Total Protein (6.4-8.2) gm/dl Albumin (3.4-5.0) gm/dl Globulin (2.5-4.0) gm/dl Albumin/Globulin Ratio (0.9-2) Procalcitonin 0.24 (0-0.5) ng/ml COVID-19 Eval Order Covid19 Done at [facility] COVID-19 PCR NEGATIVE (Negative) 08/09/20 Range/Units 13:50 WBC (4.8-10.8) K/uL RBC (4.2-5.4) M/uL Hgb (12.0-16.0) g/dL Hct (37-47) % MCV (80-100) fL MCH (25-34) pg MCHC (32-36) g/dL RDW Std Deviation (36.4-46.3) fL RDW Coeff of Raymundo (11.5-14.5) % Plt Count (130-400) K/uL MPV (7.4-10.4) fL Immature Gran % (Auto) % Neut % (Auto) % Lymph % (Auto) % [place] % (Auto) % Eos % (Auto) % Baso % (Auto) % Neut # (Auto) (1.4-6.5) K/uL Lymph # (Auto) (1.2-3.4) K/uL [place] # (Auto) (0.11-0.59) K/uL Eos # (Auto) (0-0.5) K/uL Baso # (Auto) (0-0.2) K/uL Immature Gran # (Auto) (0.00-0.02) K/uL PT (9.0-12.0) Seconds INR (0.9-1.1) APTT (21.0-31.0) Seconds PTT Ratio Sodium (136-145) mmol/L Potassium (3.5-5.1) mmol/L Chloride (98-107) mmol/L Carbon Dioxide (21-32) mmol/L Anion Gap (3-11) BUN (7-18) mg/dl Creatinine (0.6-1.2) mg/dl Est Cr Clr Drug Dosing ml/min Est GFR ( Amer) Est GFR (Non-Af Amer) BUN/Creatinine Ratio (10-20) Glucose (70-99) mg/dl Lactate 0.9 (0.4-2.0) mmol/L Calcium (8.5-10.1) mg/dl Magnesium (1.8-2.4) mg/dl Total Bilirubin (0.2-1) mg/dl AST (15-37) U/L ALT (12-78) U/L Alkaline Phosphatase (45-117) U/L Total Protein (6.4-8.2) gm/dl Albumin (3.4-5.0) gm/dl Globulin (2.5-4.0) gm/dl Albumin/Globulin Ratio (0.9-2) Procalcitonin (0-0.5) ng/ml COVID-19 Eval Order COVID-19 PCR (Negative) Imaging Data Attestation: I personally reviewed and interpreted this imaging study as follows: My Impression: Chest x-raythere is some increased haziness in the left base possibly pneumonia versus scarring. No pneumothorax Radiologist's Impression: SINGLE VIEW CHEST CLINICAL HISTORY: Sepsis. FINDINGS: An AP, portable, upright chest radiograph is compared to chest x-ray and chest CT dated 03/12/2020. A left subclavian central venous infusion port is unchanged in position. The heart is top normal in size noting atherosclerotic calcification of the thoracic aorta. The pulmonary vasculature is noncongested. Advanced emphysema and chronic interstitial thickening is similar to previous. There are patchy airspace opacities at the left lung base. No pneumothorax is seen. The skeletal structures are osteopenic. The bony thorax is grossly intact. Surgical clips are seen in the right lower neck. IMPRESSION: 1. Advanced emphysema. 2. There are airspace opacities at the left lung base. This could represent scarring/atelectasis versus a mild infectious/inflammatory pneumonitis. Clinical correlation will be required. ECG Data Attestation: I personally reviewed and interpreted this ECG as follows: Indication: + SOB/dyspnea Rate (beats per minute): 75 Rhythm: + normal sinus ECG Intervals/blocks: + Normal QRS, + Normal QT and + Normal WA ECG Rudy: + Normal ECG ST segments: + Normal ST segments ECG Findings: no PACs and no PVCs Comparison ECG Date: from (03/30/30) Change: no significant change MDM Narrative This patient comes in as described above she has had a cough for several days. She feels tired and has a very complicated medical history. She does not believe she is exposed to coronavirus although it certainly on the differential. IV access was established a full sepsis work-up was obtained obtained. She was placed on respiratory isolation Covid testing was performed as well. EKG was obtained. She is on a port which was accessed. EKG was unremarkable. Chest x- ray shows some haziness in the left base which could be scarring versus infiltrate. Given her cough, I will put her on antibiotics. Her lactic acid is not elevated. Her white count is mildly elevated but she tends to be elevated and she is on Neupogen. Hemoglobin is also low in the 8 range but not transfusion range at this point. She has had no blood loss noted. Her Covid testing was negative. Her magnesium was also low here and she was given 1 g of IV magnesium to treat this. The patient wanted to go home however her oncology PA called me and said she was concerned that her most recent wound culture from her nonhealing wound next to her stoma grew out Pseudomonas and she was having increasingly hard time treating with p.o. antibiotics. I discussed this with our pharmacist as well and the only antibiotic we could come up with that would cover both this and possible pneumonia with Fortaz which is IV given everything she has going on I do think it is better to admit her initially she is reluctant to be admitted but she did ultimately agree to as did her daughter and she was admitted for IV antibiotics and further treatment and evaluation. Continuous cardiac monitoring: An order was placed in the EMR for continuous cardiac monitoring Impression & Plan Pneumonia, Hypomagnesemia, Lung cancer, Cough, COVID-19 virus antibody negative, Wound infection Discharge Plan Visit Data Chief Complaint: Cough Stated Complaint: COUGH ED Provider: Nikunj Mayer Discharge Problem: Pneumonia, Hypomagnesemia, Lung cancer, Cough, COVID-19 virus antibody negative, Wound infection Discharge Instructions Activity Restrictions/Additional Instructions: Rest. Drink plenty of fluids. Use Augmentin 875 mg twice a day for 10 days May use Tessalon pearles if needed for cough May also use the Diflucan if needed for thrush Return to the ER if: Shortness of breath, worsening symptoms, fever or chills, any new problems or concerns Forms Stand Alone Forms: Ellen Turner [employer] Prescriptions Prescriptions: New amoxicillin-pot clavulanate [Augmentin] 875-125 mg tablet 1 tab PO BID Qty: 20 RF: 0 benzonatate [Tessalon Perles] 100 mg capsule 100 mg PO TID PRN (Reason: cough) Qty: 20 RF: 0 fluconazole [Diflucan] 200 mg tablet 200 mg PO Q72H PRN (Reason: thrush) Qty: 5 RF: 0 No Action levothyroxine [Synthroid] 100 mcg tablet 100 mcg PO QAM Qty: 90 RF: 3 citalopram [Celexa] 40 mg tablet 40 mg PO QAM Qty: 90 RF: 3 lorazepam 0.5 mg tablet 0.5 mg PO Q12H PRN (Reason: anxiety) Qty: 60 RF: 0 oxycodone 5 mg tablet 5 mg PO Q6H PRN (Reason: Pain) Qty: 120 RF: 0 folic acid 1 mg tablet 1 mg PO QAM RF: 0 pantoprazole [Protonix] 40 mg tablet,delayed release (DR/EC) 40 mg PO QAM RF: 0 potassium chloride 20 mEq packet 10 meq PO BID RF: 0 multivitamin Capsule 1 cap PO QAM RF: 0 aspirin [Aspirin Low-Strength] 81 mg Tablet,Delayed Release (Dr/Ec) 81 mg PO DAILY RF: 0 magnesium oxide 400 mg (241.3 mg magnesium) tablet 400 mg PO BID Qty: 20 RF: 0 prochlorperazine maleate [Compazine] 5 mg tablet 5 mg PO TID PRN (Reason: Nausea And Vomiting) RF: 0 Referrals Referrals: Zion Bartholomew MD [Primary Care Provider] - Discharge Problem: Pneumonia Qualifiers: Pneumonia type: due to unspecified organism Laterality: left Lung location: lower lobe of lung Qualified Code(s): J18.9 - Pneumonia, unspecified organism Lung cancer Qualifiers: Laterality: unspecified laterality Lung location: unspecified part of lung Qualified Code(s): C34.90 - Malignant neoplasm of unspecified part of unspecified bronchus or lung
--- NOTE | 2020-08-09 13:19 | XRay Report ---
SINGLE VIEW CHEST CLINICAL HISTORY: Sepsis. FINDINGS: An AP, portable, upright chest radiograph is compared to chest x-ray and chest CT dated 03/01. A left subclavian central venous infusion port is unchanged in position. The heart is top nor mal in size noting atherosclerotic calcification of the thoracic aorta. The pulmonary vasculature is noncongested. Advanced emphysema and chronic interstitial thickening is similar to previous. There ar e patchy airspace opacities at the left lung base. No pneumothorax is seen. The skeletal structures a re osteopenic. The bony thorax is grossly intact. Surgical clips are seen in the right lower neck. IMPRESSION: 1. Advanced emphysema. 2. There are airspace opacities at the left lung base. This could represent scarring/atelectasis vers us a mild infectious/inflammatory pneumonitis. Clinical correlation will be required. ACT 112: Negative or not required by law. Electronically signed by: Jeffry Sotomayor M.D. 08/09/2020 1:17 PM
[2020-08-09 13:26] LABS: Basophils # (auto) 0.01 K/uL (0-0.2); Basophils % (auto) 0.1 %; Eosinophils # (auto) 0.22 K/uL (0-0.5); Eosinophils % (auto) 1.7 %; Hematocrit (blood only) 27.3 % (37-47); Hemoglobin 8.6 g/dL (12.0-16.0); Immature Granulocytes # (auto) 0.12 K/uL (0.00-0.02); Immature Granulocytes % (auto) 0.9 %; Lymphocytes % (auto) 6.1 %; Mean Corpuscular Hemoglobin 28.1 pg (25-34); Mean Corpuscular Hgb Conc 31.5 g/dL (32-36); Mean Corpuscular Volume 89.2 fL (80-100); Mean Platelet Volume 9.4 fL (7.4-10.4); Monocytes # (auto) 0.85 K/uL (0.11-0.59); Monocytes % (auto) 6.5 %; Neutrophils # (auto) 11.07 K/uL (1.4-6.5); Neutrophils % (auto) 84.7 %; Platelet Count 190 K/uL (130-400); RDW Coefficient of Variation 16.4 % (11.5-14.5); RDW Standard Deviation 53.2 fL (36.4-46.3); Red Blood Count 3.06 M/uL (4.2-5.4); White Blood Count 13.07 K/uL (4.8-10.8)
[2020-08-09 13:39] LABS: INR 1.1 (0.9-1.1); Partial Thromboplastin Ratio 1.2; Partial Thromboplastin Time 32.5 Seconds (21.0-31.0); Prothrombin Time 11.4 Seconds (9.0-12.0)
[2020-08-09 13:52] LABS: Alanine Aminotransferase < 6 U/L (12-78); Aspartate Aminotransferase 12 U/L (15-37); BUN Creatinine Ratio 18.5 (10-20); Blood Urea Nitrogen 11 mg/dl (7-18); Calcium 8.2 mg/dl (8.5-10.1); Carbon Dioxide 28 mmol/L (21-32); Chloride 106 mmol/L (98-107); Creatinine Clr Calc Pharmacy 53.9 ml/min; Est GFR (African American) 100.6; Est GFR (Non-African American) 86.8; Glucose 79 mg/dl (70-99); Magnesium 1.4 mg/dl (1.8-2.4); Potassium 3.6 mmol/L (3.5-5.1); Sodium 138 mmol/L (136-145)
[2020-08-09 13:55] LABS: Albumin Globulin Ratio 0.4 (0.9-2); Alkaline Phosphatase 109 U/L (45-117); Bilirubin,Total 0.2 mg/dl (0.2-1); Globulin 4.5 gm/dl (2.5-4.0); Total Protein 6.5 gm/dl (6.4-8.2)
[2020-08-09] MEDS ORDERED: MAGNESIUM SULFATE / D5W 1 GM/100 ML BAG IV STA (13:59)
[2020-08-09] MEDS ORDERED: AMOXICILLIN/CLAVULANATE 875 MG TAB PO ONE (14:31)
--- NOTE | 2020-08-09 14:36 | Electrocardiogram Report ---
Test Reason : Blood Pressure : / mmHG Vent. Rate : 075 BPM Atrial Rate : 075 BPM P-R Int : 122 ms QRS Dur : 084 ms QT Int : 402 ms P-R-T Axes : 071 011 079 degrees QTc Int : 448 ms Normal sinus rhythm Low voltage QRS Borderline ECG When compared with ECG of 30-MAR-2020 09:47, No significant change was found Confirmed by Johnny Alejandro ([id number]) on 08/09/2020 2:36:15 PM Referred By: REFERRED SELF Confirmed By:Johnny Alejandro
--- NOTE | 2020-08-09 17:46 | History & Physical Report ---
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 Managed outpatient by wound care clinic. Immunosuppressed on chemotherapy. Most recently on ciprofloxacin. Discussed with ER provider and PA at [facility] and requested inaptient admission to treat this in addition to cough as now only sensitive to IV antibiotics. Follow up blood cultures Consult wound care nurse (4) Hypomagnesemia: Mg level 1.4. Mg sulphate 1g IV given in ER. Will repeat with am labs. (5) Anemia: Appears to be out of proportion to platelet and WBC therefore difficult to explain with chemotherapy alone. Will get transferrin saturation levels with AM labs. (6) Cigarette nicotine dependence: Declines nicotine replacement products (7) Adenocarcinoma of lung, stage 4: Metastatic lung cancer. Ongoing chemotherapy (pembrolizumab/Pemetrexed maintenance therapy for this. Last taken 2 weeks prior. (8) Hypothyroidism: TSH WNL in Jul. Continue levothyroxine 100mcg PO daily (9) DVT prophylaxis: Lovenox 30mg SQ daily Admission and Anticipated Discharge Date Admission Date: 08/09/2020 History of Present Illness Chief Complaint: Cough, abdominal wall drainage. Primary Care Provider: Zion Bartholomew MD Aydee Burgos is a 80 year old female with metastatic lung cancer, intra- abdominal abscesses and small bowel obstruction requiring colostomy who presents to the ER with cough. She reports this has been going on for the last two days and progressively getting worse. No sore throat, sinus pain, GERD/heartburn, or post nasal drip. Productive cough with yellow sputum. No hemoptysis. She was unable to get much sleep last night because of the severity of her coughing and has associated generalized fatigue. No chest pain outside of coughing. She continues to smoke 5 cigarettes/day but reports she does not usually have a cough and this is unusual for her. Denies any significant shortness of breath. No change in taste or smell or COVID-19 exposure. She has emphysematous appearing lungs on imaging although no formal diagnosis of COPD with pulmonary function testing and does not have recurrent COPD exacerbations and does not take any regular or rescue inhalers usually. She does report some mild wheezing. In the ER she was tested for SARS-COV-2 which was subsequently negative. CXR mildly concerning for PNA. Initial plan given no hypoxia or neutropenia was for discharge from the ER however [facility] she has also been having ongoing fistula drainage from an abdominal wound which is being managed by the wound care clinic. Prior cultures have grown pseudomonas sensitive to ciprofloxacin and she was been on a prolonged course of this. However her most recent culture from 08/04 grew group B strep and pseudomonas with resistance to cipro therefore advised for inpatient admission to treat both this and pneumonia. Allergies Allergy/AdvReac Type Severity Reaction Status Date / Time nickel Allergy Intermediate Rash Verified 08/09/20 14:19 venlafaxine AdvReac Intermediate Hypertensio Verified 08/09/20 14:19 n,Headache clarithromycin AdvReac Mild Nausea/Vomi Verified 08/09/20 14:19 ting codeine AdvReac Mild UPSET Verified 08/09/20 14:19 STOMACH hydrocodone AdvReac Mild Nausea/Vomi Verified 08/09/20 14:19 ting metronidazole [From Flagyl] AdvReac Mild Gastrointestinal Verified 08/09/20 14:19 Upset Home Medications Home Medications Medication Instructions Recorded Confirmed Type folic acid 1 mg PO QAM 08/04/19 08/09/20 History pantoprazole [Protonix] 40 mg PO QAM 08/30/19 08/09/20 History levothyroxine 100 mcg tablet 100 mcg PO QAM #90 tab 09/12/19 08/09/20 Rx citalopram 40 mg tablet 40 mg PO QAM #90 tab 01/09/20 08/09/20 Rx magnesium oxide 400 mg PO BID #20 tab 02/29/20 08/09/20 Rx prochlorperazine maleate 5 mg PO TID PRN 03/12/20 08/09/20 History [Compazine] multivitamin 1 cap PO QAM 03/30/20 08/09/20 History potassium chloride 10 meq PO BID 03/30/20 08/09/20 History lorazepam 0.5 mg tablet 0.5 mg PO Q12H PRN #60 tab 07/05/20 08/09/20 Rx oxycodone 5 mg tablet 5 mg PO Q6H PRN #120 tab 08/05/20 08/09/20 Rx amoxicillin-pot clavulanate 1 tab PO BID #20 tab 08/09/20 Rx [Augmentin] aspirin [Aspirin Low-Strength] 81 mg PO DAILY 08/09/20 08/09/20 History benzonatate [Tessalon Perles] 100 mg PO TID PRN #20 cap 08/09/20 Rx fluconazole [Diflucan] 200 mg PO Q72H PRN #5 tab 08/09/20 Rx Past Med/Surg History Medical History (Updated 08/10/20 @ 07:10 by Jayy Madrid MD) Adenocarcinoma, lung Adrenal cortical adenoma Anasarca Anxiety Arthritis Biceps tendonitis Cataract Depression Esophageal dyskinesia Essential hypertriglyceridemia Fatigue Gastritis Gastroesophageal reflux disease History of bronchitis History of diverticulitis Hyperlipidemia Hypothyroidism Intermittent hydrarthrosis of elbow Irritable bowel syndrome Lung cancer NEW DX Metastatic bone cancer radiation treatments completed 08/25/19. Olecranon bursitis Osteoarthritis Osteopenia Pneumonia hx Sialoadenitis Surgical History History of cataract surgery RT/LEFT History of colonoscopy Dr. Veronica 12/2011 History of dilatation and curettage History of discectomy CERVICAL (GOOD ROM) History of repair of rotator cuff RT History of tooth extraction S/P section X 1 S/P hip replacement left. 07/02/2019. SAB with MAC. no issues. Family History Family/Other Family history of diabetes mellitus Brother Family hx of colon cancer Mother , age 66 Diabetes Cancer ovarian Coronary heart disease had acute AL which led to her Sister Cancer Family/Other Breast cancer Father , age 49 Suicide Alcoholism Social History Smoking Status: Current some day smoker Tobacco Type: Cigarettes Age Started Using Tobacco: 21; packs per day: 0.5; Cigarettes Per Day: 5; Second Hand Exposure: No; Hx Alcohol Use: No Hx Substance Use: Yes Last Used Substance: Hours (ago) Last Used Substance Other:: 9 am 08/09/20 Preferred Language: [place] Island[place] Communication Ability: Effective Visual Impairment: No Limitations Hearing Ability: Normal 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 [employer] Packing Required: No Beliefs That Will Affect Care: None marital status: / Current Living Situation: Alone and Family Current Living Situation Comment: lives with grandson current occupational status: retired current occupation: worked at [employer]) Other Information That Helps Us Care for You: No other: 1 daughter Feels Safe at Home: Yes Safety Concerns: Feels Safe At This Time Childhood Exposure to Second-Hand Smoke: Yes (both parents) caffeine: Yes Dental Care, Regularly: No Seatbelt Use: always Assistive Devices: None Assistive Devices Comment: readers Review of Systems Review of Systems: All systems reviewed & are unremarkable except as noted in HPI & below Physical Exam Constitutional: well developed and + frail appearing; + not well nourished and no acute distress Eyes: + anicteric sclerae; normal pupil size Neck: trachea midline, no thyromegaly Respiratory: + uses accessory muscles, + cough and able to speak in complete sentences; no respiratory distress, no labored breathing and no retractions Auscultation: + crackles (Left lateral base), + rhonchi (b/l anteriorly upper airway sounds) and + wheezes (mild expiratory anteriorly initially but cleared on sitting up) Cardiovascular: Rate/Rhythm: regular rate and regular rhythm Heart Sounds: no murmur Extremities: normal capillary refill; no calf tenderness and no pedal edema Gastrointestinal (Abdomen): Inspection/Auscultation: normal bowel sounds; abdomen not distended Percussion/Palpation: abdomen soft; abdomen nontender, no guarding and abdomen not rigid anterior abdominal draining fistula without surrounding cellulitis - patient refused probe. Appears wet in skin fold formed to the right of colostomy bag Colostomy bag with well formed stool Musculoskeletal: no cyanosis or clubbing, extremities motor strength 5/5 Skin: no rashes, warm and dry (no areas of cellulitis, fistula draining pus as above) Neurologic: moves all extremities and awake; not confused Psychiatric: A+Ox3, euthymic affect Results & Data Results & Data ([facility]) Vital Signs (Past 12 Hours) Vital Signs Temp Pulse Resp BP Pulse Ox 08/09/20 17:30 77 25 H 103/50 L 93 08/09/20 17:00 74 27 H 91/49 L 95 08/09/20 16:30 81 20 08/09/20 16:09 21 08/09/20 15:30 73 25 H 107/49 L 96 08/09/20 15:00 71 16 115/55 L 97 08/09/20 14:30 72 19 104/54 L 98 08/09/20 14:00 70 25 H 107/56 L 96 08/09/20 13:30 71 22 108/53 L 96 08/09/20 13:06 78 21 08/09/20 13:00 75 20 100/53 L 97 08/09/20 11:56 36.8 C 85 20 121/66 96 ECG Indication: other Rate (beats per minute): 75 Rhythm: normal sinus Findings: no acute ischemic change Comparison ECG Date: from (March 30, 2020) Change: no significant change Code Status & VTE Plan Code Status DNR/DNI as discussed with the patient and her POA (daughter) VTE Prophylaxis Plan VTE Prophylaxis will be ordered: Yes PG Care Time/CCT Total # of Minutes Spent Total Time Spent with Patient: Total time spent is greater than 50% in coordination of care (as documented) at patient's floor/unit and/or counseling patient: Coding Level of Care Code 09697 Initial Inpt Care Lvl 3 Diagnoses Pneumonia J18.9 Laterality: left Lung location: lower lobe of lung Pneumonia type: due to unspecified organism Cough R05 Wound infection T14.8XXA; L08.9 Hypomagnesemia E83.42 Anemia D64.9 Cigarette nicotine dependence F17.210 Substance use status: uncomplicated Adenocarcinoma of lung, stage 4 C34.90 Laterality: unspecified laterality Hypothyroidism E03.9 Hypothyroidism type: acquired DVT prophylaxis Z29.9 (1) Adenocarcinoma of lung, stage 4 Laterality: unspecified laterality Qualified Code(s): C34.90 - Malignant neoplasm of unspecified part of unspecified bronchus or lung (2) Hypothyroidism Hypothyroidism type: acquired Qualified Code(s): E03.9 - Hypothyroidism, unspecified (3) Cigarette nicotine dependence Substance use status: uncomplicated Qualified Code(s): F17.210 - Nicotine dependence, cigarettes, uncomplicated (4) Pneumonia Laterality: left Lung location: lower lobe of lung Pneumonia type: due to unspecified organism Qualified Code(s): J18.9 - Pneumonia, unspecified organism
[2020-08-09 19:20] LABS: Appearance Urine Cloudy (Clear); Bacteria Urine Automated 4+ (Negative); Bilirubin Urine Negative (Negative); Blood Urine Negative (Negative); Cast Urine Automated 0 /lpf (0-5); Color Urine Yellow; Glucose Urine UA Negative (Negative); Ketones Urine Negative (Negative); Leukocyte Esterase Urine 2+ (Negative); Nitrite Urine Positive (Negative); Protein Urine Trace (Negative); RBC Urine Automated 0-4 /hpf (0-4); Specific Gravity Urine 1.018 (1.000-1.030); Urobilinogen Urine Negative (Negative); WBC Urine Automated >30 /hpf (0-5); pH Urine 5.5 (4.5-7.5)
[2020-08-09] MEDS ORDERED: PROCHLORPERAZINE MALEATE 5 MG TAB PO PRN (19:50)
[2020-08-09] MEDS ORDERED: ALBUT/IPRATROP 3MG/0.5MG NEB 3 ML VIAL NEB SCH (19:50)
[2020-08-09] MEDS ORDERED: ALUMINUM/MAGNESIUM SUSP 30 ML UDC PO PRN (19:50)
[2020-08-09] MEDS ORDERED: ACETAMINOPHEN 325 MG TAB PO PRN (19:50)
[2020-08-09] MEDS ORDERED: oxyCODONE HCL IR 5 MG TAB (IMMEDIATE RELEASE) PO PRN (19:58)
[2020-08-09] MEDS ORDERED: AZITHROMYCIN 500 MG in DEXTROSE 5% 250 ML IV ONE (20:00)
[2020-08-09] MEDS ORDERED: PNEUMOCOCCAL POLYSACCHARIDES 25 MCG/0.5 ML VIAL/SYR IM ONE (20:03)
[2020-08-09] MEDS ORDERED: PNEUMOCOCCAL ADMINISTRATION CHARGE ONE (20:03)
[2020-08-09] MEDS: ONDANSETRON INJ 2 MG/ML 2 ML VIAL IV PRN (20:29)
[2020-08-09] MEDS ORDERED: Nursing to Pharmacy Communication SCH ×2 (20:30→22:15)
[2020-08-09] MEDS ORDERED: HYDROcodone/HOMATROPINE SYRUP 5MG/1.5MG 5ML UDP PO PRN (20:38)
[2020-08-09] MEDS: ALBUTEROL HFA 8 GM INHALER INH SCH (20:59)
[2020-08-09] MEDS: IPRATROPIUM BROMIDE HFA INHALER INH SCH (21:00)
[2020-08-09] MEDS: ENOXAPARIN INJ 30 MG/0.3 ML SYR SQ SCH (21:45)
[2020-08-09] MEDS: POTASSIUM CHLORIDE 10 MEQ TABCR PO SCH (21:46)
[2020-08-09] MEDS: guaiFENesin 600 MG TABCR PO SCH (21:46)
[2020-08-09] MEDS: LORazepam 0.5 MG TAB PO PRN (21:46)
[2020-08-09] MEDS: MAGNESIUM OXIDE 400 MG TAB PO SCH (21:47)
[2020-08-09] MEDS ORDERED: COUGH DROP (SUGAR FREE) LOZ 24 LOZ/1 BOX BUCCAL PRN (22:10)
[2020-08-10] MEDS: LEVOTHYROXINE SODIUM 100 MCG TABLET PO SCH (06:14)
[2020-08-10] MEDS ORDERED: ALBUTEROL HFA 8 GM INHALER INH SCH (07:00)
[2020-08-10] MEDS ORDERED: IPRATROPIUM BROMIDE HFA INHALER INH SCH (07:00)
[2020-08-10 08:51] LABS: Eosinophils # (auto) 0.31 K/uL (0-0.5); Eosinophils % (auto) 2.8 %; Hematocrit (blood only) 28.1 % (37-47); Hemoglobin 8.8 g/dL (12.0-16.0); Immature Granulocytes # (auto) 0.12 K/uL (0.00-0.02); Immature Granulocytes % (auto) 1.1 %; Lymphocytes # (auto) 0.67 K/uL (1.2-3.4); Mean Corpuscular Hemoglobin 27.9 pg (25-34); Mean Corpuscular Hgb Conc 31.3 g/dL (32-36); Mean Corpuscular Volume 89.2 fL (80-100); Monocytes # (auto) 0.65 K/uL (0.11-0.59); Monocytes % (auto) 5.8 %; Neutrophils # (auto) 9.38 K/uL (1.4-6.5); Neutrophils % (auto) 84.3 %; Platelet Count 202 K/uL (130-400); RDW Coefficient of Variation 16.5 % (11.5-14.5); RDW Standard Deviation 52.7 fL (36.4-46.3); Red Blood Count 3.15 M/uL (4.2-5.4); White Blood Count 11.13 K/uL (4.8-10.8)
[2020-08-10] MEDS: guaiFENesin 600 MG TABCR PO SCH ×2 (09:10→20:57)
[2020-08-10] MEDS: PANTOprazole 40 MG TAB PO SCH (09:10)
[2020-08-10] MEDS: POTASSIUM CHLORIDE 10 MEQ TABCR PO SCH ×2 (09:11→20:57)
[2020-08-10] MEDS: FOLIC ACID 1 MG TAB PO SCH (09:11)
[2020-08-10] MEDS: MAGNESIUM OXIDE 400 MG TAB PO SCH ×2 (09:11→20:57)
[2020-08-10] MEDS: MULTIVITAMIN TAB PO SCH (09:11)
[2020-08-10] MEDS: ASPIRIN 81 MG ECTAB PO SCH (09:12)
[2020-08-10] MEDS: CITALOPRAM 40 MG TAB PO SCH (09:12)
[2020-08-10 09:24] LABS: Albumin Level 1.9 gm/dl (3.4-5.0); BUN Creatinine Ratio 18.2 (10-20); Blood Urea Nitrogen 11 mg/dl (7-18); Calcium 8.3 mg/dl (8.5-10.1); Carbon Dioxide 28 mmol/L (21-32); Chloride 106 mmol/L (98-107); Creatinine Clr Calc Pharmacy 54.2 ml/min; Est GFR (African American) 101.2; Est GFR (Non-African American) 87.3; Glucose 83 mg/dl (70-99); Magnesium 1.6 mg/dl (1.8-2.4); Potassium 3.7 mmol/L (3.5-5.1); Sodium 138 mmol/L (136-145)
[2020-08-10 09:28] LABS: Alanine Aminotransferase < 6 U/L (12-78); Albumin Globulin Ratio 0.4 (0.9-2); Alkaline Phosphatase 99 U/L (45-117); Aspartate Aminotransferase 13 U/L (15-37); Bilirubin,Total 0.1 mg/dl (0.2-1); Globulin 4.3 gm/dl (2.5-4.0); Iron 15 mcg/dl (35-150); Total Protein 6.2 gm/dl (6.4-8.2); Transferrin 101 mg/dl (200-360); Transferrin Percent Saturation 11 % (15-50)
[2020-08-10] MEDS: IPRATROPIUM BROMIDE HFA INHALER INH SCH ×3 (11:04→17:30)
[2020-08-10] MEDS: ALBUTEROL HFA 8 GM INHALER INH SCH ×3 (11:04→17:30)
--- NOTE | 2020-08-10 13:36 | Hospitalist Progress Note ---
Date of Service August 10, 2020 Assessment & Plan (1) Pneumonia: - Immunosuppressed on chemotherapy - recent cough x1 week, CXR showing left lung base opacity - CBC 11.13 with neutrophilic dominance and L shift - MRSA nare and COVID negative - continue Ceftazidime 2g q8h - follow sputum culture - trend CBC in the AM (2) Acute UTI: - cloudy urine, increased frequency, flank pain x1 week - UA cloudy and positive for nitrite, 2+ LE, >30WBC, 4+ bacteria; UCx positive for GNB - continue abx as above - follow urine culture (3) Wound infection: - 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 Managed outpatient by wound care clinic. - Immunosuppressed on chemotherapy - continue abx as above - Follow up blood cultures - Consult wound care nurse (4) Cough: - with h/o COPD - continue Azithromycin 500 mg IV Q24H in addition to Ceftazidime for atypical coverage and anti-inflammatory properties - Incentive spirometry - Duonebs PRN (5) Hypomagnesemia: - Mg 1.4.; Mg sulphate 1g IV given in ER --> Mg 1.6 - continue Magnesium 400 mg PO BID (6) Anemia: - normocytic - baseline Hgb ~8-10 - suspect 2/2 chronic disease - trend CBC (7) Cigarette nicotine dependence: - Declines nicotine replacement products (8) Adenocarcinoma of lung, stage 4: - Metastatic lung cancer. - Ongoing chemotherapy (pembrolizumab/Pemetrexed maintenance therapy for this. - Last taken 2 weeks prior. (9) Hypothyroidism: - TSH WNL in Jul. - Continue levothyroxine 100mcg PO daily FEN/GI: regular DVT Prophylaxis: Lovenox Code Status: DNR/DNI Disposition: med/surg Admission and Anticipated Discharge Date Admission Date: August 09, 2020 Supervising Physician Co-Signing Physician Notes I personally examined the patient and verified all thorpe points of history and exam, discussed case, and agree with decision making with Dr Epps. feeling better overall. coughing w looser mucous. belly feels Ok. urinary sx improving. vitals noted nad heent nc at mmm breathing unlabored no accessory muscles good effort but diffuse wheeze/rhonchi throughout skin no rashes no pallor or icterus abd w multiple drain bags no tracking erythema no crepitis no tendnerness neuro no focal deficits CAP, abdominal wall pseudmonal colonization, UTI - fortaz. zithromax to assist in recovery of COPD exac portion of breathing - incited by pneumonia. seems to be improving. otherwise as above Subjective NAEO. Central cath flushing well, abdominal fistula draining yellow-like fluid with bandages changed earlier this AM. Reports that she had increasing cough for one week as well as cloudy urine, increased urinary frequency, flank pain for one week. Denies pain around her fistula. Denies fever/chills, chest pain/palpi tations, shortness of breath, N/V. Review of Systems Review of Systems: pertinent positives and negatives mentioned in HPI Physical Exam Constitutional: + thin and + cachectic; no acute distress Respiratory: normal respiratory effort and + cough; no labored breathing Auscultation: + diminished lung sounds (in left lower base) course breath sounds bilaterally Cardiovascular: RRR, no murmur, no edema Gastrointestinal (Abdomen): Inspection/Auscultation: abdomen not distended Percussion/Palpation: + abdomen tender (minimally tender at site of fistula) fistula with overlying dressing c/d/i with no tracking, colostomy bag intact Results & Data Results & Data ([facility]) Vital Signs (Past 12 Hours) Vital Signs Temp Pulse Resp BP Pulse Ox 08/10/20 11:06 76 18 94 08/10/20 07:32 36.8 C 77 18 112/64 94 Resident Activity Tracking Resident Involvement: Resident Care Provided Care Provided: Adult Hospital Medicine (1) Adenocarcinoma of lung, stage 4 Laterality: unspecified laterality Qualified Code(s): C34.90 - Malignant neoplasm of unspecified part of unspecified bronchus or lung (2) Hypothyroidism Hypothyroidism type: acquired Qualified Code(s): E03.9 - Hypothyroidism, unspecified (3) Cigarette nicotine dependence Substance use status: uncomplicated Qualified Code(s): F17.210 - Nicotine dependence, cigarettes, uncomplicated (4) Pneumonia Laterality: left Lung location: lower lobe of lung Pneumonia type: due to unspecified organism Qualified Code(s): J18.9 - Pneumonia, unspecified organism
[2020-08-10] MEDS ORDERED: IPRATROPIUM BROMIDE HFA INHALER INH PRN (16:47)
[2020-08-10] MEDS ORDERED: ALBUTEROL HFA 8 GM INHALER INH PRN (16:47)
[2020-08-10] MEDS ORDERED: AZITHROMYCIN 500 MG in DEXTROSE 5% 250 ML IV SCH (20:00)
--- NOTE | 2020-08-10 20:20 | Billing Data ---
Date of Service August 10, 2020 Coding Level of Care Code 79702 Subseq Hosp Care Lvl 3
[2020-08-10] MEDS: ONDANSETRON INJ 2 MG/ML 2 ML VIAL IV PRN (20:55)
[2020-08-10] MEDS: ENOXAPARIN INJ 30 MG/0.3 ML SYR SQ SCH (20:58)
[2020-08-10] MEDS: LORazepam 0.5 MG TAB PO PRN (21:02)
[2020-08-11] MEDS: LEVOTHYROXINE SODIUM 100 MCG TABLET PO SCH (05:57)
[2020-08-11 06:51] LABS: Basophils # (auto) 0.01 K/uL (0-0.2); Basophils % (auto) 0.1 %; Eosinophils # (auto) 0.33 K/uL (0-0.5); Eosinophils % (auto) 2.8 %; Hemoglobin 8.7 g/dL (12.0-16.0); Immature Granulocytes # (auto) 0.09 K/uL (0.00-0.02); Immature Granulocytes % (auto) 0.8 %; Lymphocytes # (auto) 0.85 K/uL (1.2-3.4); Lymphocytes % (auto) 7.1 %; Mean Corpuscular Hemoglobin 27.9 pg (25-34); Mean Corpuscular Hgb Conc 31.1 g/dL (32-36); Mean Corpuscular Volume 89.7 fL (80-100); Mean Platelet Volume 9.4 fL (7.4-10.4); Monocytes # (auto) 0.97 K/uL (0.11-0.59); Monocytes % (auto) 8.1 %; Neutrophils # (auto) 9.67 K/uL (1.4-6.5); Neutrophils % (auto) 81.1 %; Platelet Count 255 K/uL (130-400); RDW Coefficient of Variation 16.4 % (11.5-14.5); RDW Standard Deviation 52.7 fL (36.4-46.3); Red Blood Count 3.12 M/uL (4.2-5.4); White Blood Count 11.92 K/uL (4.8-10.8)
[2020-08-11 07:12] LABS: BUN Creatinine Ratio 17.7 (10-20); Calcium 8.4 mg/dl (8.5-10.1); Creatinine Clr Calc Pharmacy 48.5 ml/min; Est GFR (African American) 97.6; Est GFR (Non-African American) 84.2; Magnesium 1.7 mg/dl (1.8-2.4); Potassium 3.7 mmol/L (3.5-5.1)
[2020-08-11] MEDS: MAGNESIUM OXIDE 400 MG TAB PO SCH ×2 (07:36→20:26)
[2020-08-11] MEDS: ASPIRIN 81 MG ECTAB PO SCH (07:36)
[2020-08-11] MEDS: guaiFENesin 600 MG TABCR PO SCH ×2 (07:37→20:26)
[2020-08-11] MEDS: CITALOPRAM 40 MG TAB PO SCH (07:37)
[2020-08-11] MEDS: PANTOprazole 40 MG TAB PO SCH (07:37)
[2020-08-11] MEDS: MULTIVITAMIN TAB PO SCH (07:37)
[2020-08-11] MEDS: FOLIC ACID 1 MG TAB PO SCH (07:38)
[2020-08-11] MEDS: POTASSIUM CHLORIDE 10 MEQ TABCR PO SCH ×2 (07:38→20:26)
[2020-08-11] MEDS: AZITHROMYCIN 250 MG TAB PO SCH (13:11)
--- NOTE | 2020-08-11 16:06 | Hospitalist Progress Note ---
Date of Service August 11, 2020 Assessment & Plan (1) Acute UTI: - cloudy urine, increased frequency, flank pain x1 week - UA cloudy and positive for nitrite, 2+ LE, >30WBC, 4+ bacteria; UCx positive for E. 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 Managed outpatient by wound care clinic. - Immunosuppressed on chemotherapy - no tracking/surrounding erythema/tenderness, do not suspect active infection - continue abx as above, can transition to PO coverage without Pseudomonas coverage tomorrow - monitor clinically for evidence of cellulitis (4) Cough: - with h/o COPD - continue Azithromycin in addition to Ceftazidime for atypical coverage and anti-inflammatory properties - Incentive spirometry - Duonebs PRN (5) Hypomagnesemia: - Mg 1.4.; Mg sulphate 1g IV given in ER --> Mg 1.6 - continue Magnesium 400 mg PO BID (6) Anemia: - normocytic - baseline Hgb ~8-10 - suspect 2/2 chronic disease - trend CBC (7) Cigarette nicotine dependence: - Declines nicotine replacement products (8) Adenocarcinoma of lung, stage 4: - Metastatic lung cancer. - Ongoing chemotherapy (pembrolizumab/Pemetrexed maintenance therapy for this. - Last taken 2 weeks prior. (9) Hypothyroidism: - TSH WNL in Jul. - Continue levothyroxine 100mcg PO daily FEN/GI: regular DVT Prophylaxis: Lovenox Code Status: DNR/DNI Disposition: med/surg, tentative discharge tomorrow if medically stable Admission and Anticipated Discharge Date Admission Date: August 09, 2020 Supervising Physician Co-Signing Physician Notes I personally examined the patient and verified all thorpe points of history and exam, discussed case, and agree with decision making with Dr Epps. continues to feel better breathing improving urinary sx improving vitals noted nad heent nc at mmm breathing unlabored no accessory muscles good effort skin no rashes no pallor or icterus neuro no focal deficits CAP, abdominal wall pseudmonal colonization, UTI - fortaz. continue zithromax to assist in recovery of COPD exac portion of breathing - incited by pneumonia. seems to be improving. otherwise as above. hopefully home tomorrow Subjective NAEO. Central cath flushing well, abdominal fistula draining yellow-like fluid with bandages changed earlier this AM. Reports feeling improved overall this morning with - more looseness in mucus with cough and less dysuria. Denies pain around her fistula. Denies fever/chills, chest pain/palpitations, shortness of breath, N/V. Review of Systems Review of Systems: pertinent positives and negatives mentioned in HPI Physical Exam Constitutional: + thin and + cachectic; no acute distress Respiratory: normal respiratory effort and + cough; no labored breathing Auscultation: + diminished lung sounds (in left lower base) course breath sounds throughout Cardiovascular: RRR, no murmur, no edema Gastrointestinal (Abdomen): Inspection/Auscultation: abdomen not distended Percussion/Palpation: + abdomen tender (minimally tender at site of fistula) fistula with overlying dressing c/d/i with no tracking/crepitus/surrounding erythema, colostomy bag intact Results & Data Results & Data ([facility]) Vital Signs (Past 12 Hours) Vital Signs Temp Pulse Resp BP Pulse Ox 08/11/20 07:03 36.9 C 71 16 110/58 L 93 Resident Activity Tracking Resident Involvement: Resident Care Provided Care Provided: Adult Hospital Medicine (1) Adenocarcinoma of lung, stage 4 Laterality: unspecified laterality Qualified Code(s): C34.90 - Malignant neoplasm of unspecified part of unspecified bronchus or lung (2) Hypothyroidism Hypothyroidism type: acquired Qualified Code(s): E03.9 - Hypothyroidism, unspecified (3) Cigarette nicotine dependence Substance use status: uncomplicated Qualified Code(s): F17.210 - Nicotine dependence, cigarettes, uncomplicated (4) Pneumonia Laterality: left Lung location: lower lobe of lung Pneumonia type: due to unspecified organism Qualified Code(s): J18.9 - Pneumonia, unspecified organism
[2020-08-11] MEDS: ONDANSETRON INJ 2 MG/ML 2 ML VIAL IV PRN (17:11)
--- NOTE | 2020-08-11 20:02 | Billing Data ---
Date of Service August 11, 2020 Coding Level of Care Code 28830 Subseq Hosp Care Lvl 2
[2020-08-11] MEDS: ENOXAPARIN INJ 30 MG/0.3 ML SYR SQ SCH (20:27)
[2020-08-11] MEDS: LORazepam 0.5 MG TAB PO PRN (20:29)
[2020-08-12 06:31] LABS: Basophils # (auto) 0.02 K/uL (0-0.2); Basophils % (auto) 0.1 %; Eosinophils # (auto) 0.45 K/uL (0-0.5); Eosinophils % (auto) 3.2 %; Hematocrit (blood only) 29.3 % (37-47); Immature Granulocytes # (auto) 0.13 K/uL (0.00-0.02); Immature Granulocytes % (auto) 0.9 %; Lymphocytes # (auto) 0.91 K/uL (1.2-3.4); Lymphocytes % (auto) 6.4 %; Mean Corpuscular Hemoglobin 27.7 pg (25-34); Mean Corpuscular Hgb Conc 30.7 g/dL (32-36); Mean Corpuscular Volume 90.2 fL (80-100); Mean Platelet Volume 8.9 fL (7.4-10.4); Monocytes # (auto) 0.94 K/uL (0.11-0.59); Monocytes % (auto) 6.6 %; Neutrophils # (auto) 11.75 K/uL (1.4-6.5); Neutrophils % (auto) 82.8 %; Platelet Count 279 K/uL (130-400); RDW Coefficient of Variation 16.6 % (11.5-14.5); RDW Standard Deviation 53.6 fL (36.4-46.3); Red Blood Count 3.25 M/uL (4.2-5.4)
[2020-08-12] MEDS: LEVOTHYROXINE SODIUM 100 MCG TABLET PO SCH (06:43)
[2020-08-12 07:02] LABS: BUN Creatinine Ratio 19.9 (10-20); Calcium 8.4 mg/dl (8.5-10.1); Creatinine Clr Calc Pharmacy 47.1 ml/min; Est GFR (African American) 96.6; Est GFR (Non-African American) 83.4; Magnesium 1.7 mg/dl (1.8-2.4)
[2020-08-12] MEDS: MULTIVITAMIN TAB PO SCH (09:50)
[2020-08-12] MEDS: FOLIC ACID 1 MG TAB PO SCH (09:50)
[2020-08-12] MEDS: AZITHROMYCIN 250 MG TAB PO SCH (09:50)
[2020-08-12] MEDS: ASPIRIN 81 MG ECTAB PO SCH (09:50)
[2020-08-12] MEDS: CITALOPRAM 40 MG TAB PO SCH (09:50)
[2020-08-12] MEDS: MAGNESIUM OXIDE 400 MG TAB PO SCH (09:50)
[2020-08-12] MEDS: PANTOprazole 40 MG TAB PO SCH (09:51)
[2020-08-12] MEDS: guaiFENesin 600 MG TABCR PO SCH (09:51)
[2020-08-12] MEDS: POTASSIUM CHLORIDE 10 MEQ TABCR PO SCH (09:51)
--- NOTE | 2020-08-12 12:47 | Discharge Summary ---
Date of Service August 12, 2020 Admission HPI Per Admitting Provider Aydee Burgos is a 80 year old female with metastatic lung cancer, intra- abdominal abscesses and small bowel obstruction requiring colostomy who presents to the ER with cough. She reports this has been going on for the last two days and progressively getting worse. No sore throat, sinus pain, GERD/heartburn, or post nasal drip. Productive cough with yellow sputum. No hemoptysis. She was unable to get much sleep last night because of the severity of her coughing and has associated generalized fatigue. No chest pain outside of coughing. She continues to smoke 5 cigarettes/day but reports she does not usually have a cough and this is unusual for her. Denies any significant shortness of breath. No change in taste or smell or COVID-19 exposure. She has emphysematous appearing lungs on imaging although no formal diagnosis of COPD with pulmonary function testing and does not have recurrent COPD exacerbations and does not take any regular or rescue inhalers usually. She does report some mild wheezing. In the ER she was tested for SARS-COV-2 which was subsequently negative. CXR mildly concerning for PNA. Initial plan given no hypoxia or neutropenia was for discharge from the ER however on discussion with [facility] she has also been having ongoing fistula drainage from an abdominal wound which is being managed by the wound care clinic. Prior cultures have grown pseudomonas sensitive to ciprofloxacin and she was been on a prolonged course of this. However her most recent culture from 08/04 grew group B strep and pseudomonas with resistance to cipro therefore advised for inpatient admission to treat both this and pneumonia. Admission Exam Per Admitting Provider Constitutional: well developed and + frail appearing; + not well nourished and no acute distress Eyes: + anicteric sclerae; normal pupil size Neck: trachea midline, no thyromegaly Respiratory: + uses accessory muscles, + cough and able to speak in complete sentences; no respiratory distress, no labored breathing and no retractions Auscultation: + crackles (Left lateral base), + rhonchi (b/l anteriorly upper airway sounds) and + wheezes (mild expiratory anteriorly initially but cleared on sitting up) Cardiovascular: Rate/Rhythm: regular rate and regular rhythm Heart Sounds: no murmur Extremities: normal capillary refill; no calf tenderness and no pedal edema Gastrointestinal (Abdomen): Inspection/Auscultation: normal bowel sounds; abdomen not distended Percussion/Palpation: abdomen soft; abdomen nontender, no guarding and abdomen not rigid anterior abdominal draining fistula without surrounding cellulitis - patient refused probe. Appears wet in skin fold formed to the right of colostomy bag Colostomy bag with well formed stool Musculoskeletal: no cyanosis or clubbing, extremities motor strength 5/5 Skin: no rashes, warm and dry (no areas of cellulitis, fistula draining pus as above) Neurologic: moves all extremities and awake; not confused Psychiatric: A+Ox3, euthymic affect Principal Diagnosis Urinary Tract Infection Pneumonia Discharge Exam Constitutional + thin and + cachectic; no acute distress Respiratory normal respiratory effort and + cough (mild productive); no labored breathing Auscultation: + crackles (expiratory crackles left lung base) Cardiovascular RRR, no murmur, no edema Gastrointestinal (Abdomen) Inspection/Auscultation: abdomen not distended Percussion/Palpation: + abdomen tender (minimally tender at site of fistula) Discharge Data Allergies Allergy/AdvReac Type Severity Reaction Status Date / Time nickel Allergy Intermediate Rash Verified 08/09/20 14:19 venlafaxine AdvReac Intermediate Hypertensio Verified 08/09/20 14:19 n,Headache clarithromycin AdvReac Mild Nausea/Vomi Verified 08/09/20 14:19 ting codeine AdvReac Mild UPSET Verified 08/09/20 14:19 STOMACH hydrocodone AdvReac Mild Nausea/Vomi Verified 08/09/20 14:19 ting metronidazole [From Flagyl] AdvReac Mild Gastrointestinal Verified 08/09/20 14:19 Upset Consultations 08/09/20 15:17 ED Decision to Admit Stat Hospital Course (1) Acute UTI: - cloudy urine, increased frequency, flank pain x1 week - UA cloudy and positive for nitrite, 2+ LE, >30WBC, 4+ bacteria; UCx positive for E. coli - resistant to cipro/levo but sensitive to 3rd and 4th generation cephalosporins - blood cx negative after 48 hours - WBC initially down to 11.92 (08/11), then up to 14.2 (08/12) - patient otherwise appears improved and has recent h/o Neupogen with chemotherapy; do not suspect this correlates with persistent active infection - transition Ceftazidime IV to Cefdinir 300mg PO BID x7 days on discharge (total of 10 days) - recommend close PCP follow up to monitor clinical status and CBC (2) Pneumonia: - Immunosuppressed on chemotherapy - recent cough x1 week, CXR showing left lung base opacity - CBC 11.13 with neutrophilic dominance and L shift - MRSA nare and COVID negative - transition to PO Cefdinir as above - continue Azithromycin 250mg PO x3 days after discharge (3) Wound infection: - 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 Managed outpatient by wound care clinic. - Immunosuppressed on chemotherapy - no tracking/surrounding erythema/tenderness, do not suspect active infection - continue abx as above - continue home health - wound care - after discharge (4) Cough: - with h/o COPD - continue Azithromycin for atypical coverage and anti-inflammatory properties, as mentioned above (5) Hypomagnesemia: - Mg 1.4.; Mg sulphate 1g IV given in ER --> Mg 1.6 - continue Magnesium 400 mg PO BID (6) Anemia: - normocytic - baseline Hgb ~8-10 - suspect 2/2 chronic disease - trend CBC (7) Cigarette nicotine dependence: - Declines nicotine replacement products (8) Adenocarcinoma of lung, stage 4: - Metastatic lung cancer. - Ongoing chemotherapy (pembrolizumab/Pemetrexed maintenance therapy for this. - Last taken 2 weeks prior. (9) Hypothyroidism: - TSH WNL in Jul. - Continue levothyroxine 100mcg PO daily Total Time Total Time Spent Total Time Spent (In Minutes): <30 minutes Total Time Includes: Examination of the Patient, Discharge Planning and Medication Reconciliation Discharge Plan Discharge Items Patient Disposition: Home - Home Health Services Reason For Visit: ACUTE BRONCHITIS/PNEUMONIA, PSEUDOMONAS INFECTION Discharge Diagnosis: Urinary Tract Infection Pneumonia Activity: Per Instructions section Non-emergency contact: Primary Care Provider and Oncologist Call non-emergency contact if: you have any medication questions, your symptoms worsen and you have a fever Follow-up/Referrals: Zion Bartholomew MD [Primary Care Provider] - 08/19/20 3:30 pm Diet: Regular Addtl Attending Provider Instructions: You were admitted to [facility] on 08/09/2020 for urinary symptoms. Given your symptoms, elevated white blood cell count (infectious marker) on labs, and chest X-ray findings your were diagnosed with Pneumonia. You were also found to have a urinary tract infection based on your symptoms and urine culture. You were started on an IV antibiotic called Ceftazidime that covered for both sources of infection, as well as your possible fistula infection. You were also started on Azithromycin for your cough and pneumonia. You did well on these medications; your productive cough became looser, your lung exam was improved, and your urinary symptoms improved. You will be discharged in improved, stable condition on 08/12/2020. You should continue taking Azithromycin once daily for 3 more days. Your IV antibiotic will be changed to an oral antibiotic called Cefdinir; you should to take this twice daily for 7 days. You should continue to take all of your other home medications as prescribed and you should follow up closely with your PCP and oncologist for further blood tests and to check in on your symptoms. Pending Studies at Discharge: No Stand-Alone Forms: My [facility] Quick Hang, Smoking Cessation Medications and DC Order Prescriptions: New benzonatate [Tessalon Perles] 100 mg capsule 100 mg PO TID PRN (Reason: cough) Qty: 20 RF: 0 fluconazole [Diflucan] 200 mg tablet 200 mg PO Q72H PRN (Reason: thrush) Qty: 5 RF: 0 azithromycin 250 mg tablet 250 mg PO DAILY 3 Days Qty: 3 RF: 0 cefdinir 300 mg capsule 300 mg PO BID 7 Days Qty: 14 RF: 0 Continued levothyroxine [Synthroid] 100 mcg tablet 100 mcg PO QAM Qty: 90 RF: 3 citalopram [Celexa] 40 mg tablet 40 mg PO QAM Qty: 90 RF: 3 lorazepam 0.5 mg tablet 0.5 mg PO Q12H PRN (Reason: anxiety) Qty: 60 RF: 0 oxycodone 5 mg tablet 5 mg PO Q6H PRN (Reason: Pain) Qty: 120 RF: 0 folic acid 1 mg tablet 1 mg PO QAM RF: 0 pantoprazole [Protonix] 40 mg tablet,delayed release (DR/EC) 40 mg PO QAM RF: 0 potassium chloride 20 mEq packet 10 meq PO BID RF: 0 multivitamin Capsule 1 cap PO QAM RF: 0 aspirin 81 mg Tablet,Delayed Release (Dr/Ec) 81 mg PO DAILY RF: 0 magnesium oxide 400 mg (241.3 mg magnesium) tablet 400 mg PO BID Qty: 20 RF: 0 prochlorperazine maleate [Compazine] 5 mg tablet 5 mg PO TID PRN (Reason: Nausea And Vomiting) RF: 0 Discharge Orders: Discharge Order (Routine); Ordered 08/12/20 Ordered By: Mariusz Epps Admission Data Admit Date/Time: 08/09/20 18:25 Attending Provider: Armani Domínguez Admit Provider: Jayy Madrid Primary Care Provider: Zion Bartholomew Other Providers: Jayy Madrid ; [place] Other Interventions: Discharge Summary Assessment (RN) Last Done: 08/12/20 11:44 Supervising Physician Co-Signing Physician Notes I personally examined the patient and verified all thorpe points of history and exam, discussed case, and agree with decision making with Dr Epps. feels good and wants to go home vitals noted nad heent nc at mmm breathing unlabored no accessory muscles good effort skin no rashes no pallor or icterus neuro no focal deficits CAP, abdominal wall pseudmonal colonization, UTI - fortaz inpt. since no cellulitis of abdominal wall and risk from quinolone outweighs benefit of what may just be colonization - local wound care for abdomen, cefdinir for urine, cefdinir/zithromax for lungs Resident Activity Tracking Resident Involvement: Resident Care Provided Care Provided: Adult Hospital Medicine
--- NOTE | 2020-08-12 19:53 | Billing Data ---
Date of Service August 12, 2020 Coding Level of Care Code D/C Day Management <30 mins
== END 2020-08-12 13:45 | disposition home health service (06) | DRG 194 ==
LOC: ED 11:54 → 3W 18:25 → SUATTDRO 18:25 → 3W 19:39

== ENCOUNTER 2020-11-14 02:51 | Observation (INO) ==
[2020-11-14] MEDS ORDERED: SODIUM CHLORIDE 0.9% 1000ML 500 ML IV ONE (02:59)
[2020-11-14] MEDS ORDERED: fentaNYL citrate 100 MCG/2 ML VIAL IV STA (02:59)
[2020-11-14] MEDS ORDERED: ONDANSETRON INJ 2 MG/ML 2 ML VIAL IV STA (02:59)
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
[2020-11-14 03:44] LABS: Hematocrit (blood only) 41.2 % (37-47); Hemoglobin 13.5 g/dL (12.0-16.0); Mean Corpuscular Hemoglobin 30.1 pg (25-34); Mean Corpuscular Hgb Conc 32.8 g/dL (32-36); Mean Platelet Volume 8.7 fL (7.4-10.4); Platelet Count 375 K/uL (130-400); RDW Coefficient of Variation 18.3 % (11.5-14.5); RDW Standard Deviation 61.2 fL (36.4-46.3); Red Blood Count 4.48 M/uL (4.2-5.4)
[2020-11-14] MEDS ORDERED: HYDROmorphone INJ 1 MG/ML SYRINGE IV STA (03:53)
[2020-11-14 03:55] LABS: Prothrombin Time 9.7 Seconds (9.0-12.0)
[2020-11-14 03:59] LABS: Alanine Aminotransferase 13 U/L (12-78); Aspartate Aminotransferase 10 U/L (15-37); BUN Creatinine Ratio 23.9 (10-20); Bilirubin Direct < 0.1 mg/dl (0-0.2); Blood Urea Nitrogen 21 mg/dl (7-18); Carbon Dioxide 31 mmol/L (21-32); Chloride 99 mmol/L (98-107); Creatinine Clr Calc Pharmacy 42.3 ml/min; Est GFR (Non-African American) 63.8; Glucose 143 mg/dl (70-99); Lipase 100 U/L (73-393); Magnesium 1.8 mg/dl (1.8-2.4); Potassium 3.8 mmol/L (3.5-5.1); Sodium 136 mmol/L (136-145)
[2020-11-14] MEDS ORDERED: VANCOMYCIN HCL 1,000 MG in SODIUM CHLORIDE 0.9% 500 ML IV ONE (04:00)
[2020-11-14] MEDS ORDERED: PIPERACILLIN/TAZOBACTAM 4.5 GM/120 ML BAG IV ONE (04:00)
[2020-11-14] MEDS ORDERED: VANCOMYCIN CONSULT ACTIVE PRN (04:00)
[2020-11-14] MEDS ORDERED: PIPERACILL/TAZOBAC CONSULT ACTIVE PRN ×2 (04:00→06:11)
[2020-11-14 04:01] LABS: Basophils # (auto) 0.02 K/uL (0-0.2); Basophils % (auto) 0.1 %; Eosinophils # (auto) 0.04 K/uL (0-0.5); Eosinophils % (auto) 0.1 %; Immature Granulocytes # (auto) 0.17 K/uL (0.00-0.02); Immature Granulocytes % (auto) 0.6 %; Lymphocytes # (auto) 1.85 K/uL (1.2-3.4); Lymphocytes % (auto) 6.2 %; Monocytes # (auto) 0.46 K/uL (0.11-0.59); Monocytes % (auto) 1.5 %; Neutrophils # (auto) 27.26 K/uL (1.4-6.5); Neutrophils % (auto) 91.5 %
[2020-11-14 04:04] LABS: Alkaline Phosphatase 117 U/L (45-117); Bilirubin,Total 0.2 mg/dl (0.2-1); Total Protein 7.8 gm/dl (6.4-8.2); Troponin I < 0.015 ng/ml (0-0.045)
[2020-11-14] MEDS ORDERED: SODIUM CHLORIDE 0.9% 1000ML 1,000 ML IV ONE (04:11)
--- NOTE | 2020-11-14 04:36 | Surgery Consultation ---
Date of Consultation November 14, 2020 Assessment & Plan (1) SBO (small bowel obstruction): Due to the patient's small bowel obstruction she will be admitted to the hospital. We will proceed in the following manner. An NG tube is been placed which we will continue to low continuous suction for gastric decompression Broad-spectrum antibiotics the form of Zosyn will be initiated We will hydrate her with IV fluids Due to the draining fistula we will attempt to place an ostomy bag to better control the drainage The patient was seen and examined in the emergency room with Dr. Liam Whalen who did not feel urgent surgical intervention was warranted. We will follow along with the above measures with additional recommendations to follow based on her clinical course as it unfolds Supervising Physician Co-Signing Physician Notes As per Stephan Au physician certified registered dental assistant Patient is alert coherent oropharyngeal area moist NG tube in place The abdomen tight with multiple scars colostomy bag full of stool in the lower midline incision there is stool coming from the incision that according to the patient has been there for a long time indicating a fistulous track and stating that she had a hard time trying to control this X-rays consistent with bowel obstruction Patient has a hostile abdomen inoperable recommended NG placement as she has nonoperative management palliative care consult This was discussed with the ER physician and medical service History of Present Illness Reason for Consultation: Small bowel obstruction History of Present Illness This is a 80-year-old female with a very complicated medical history. She has a history of stage IV lung cancer. She also has a history of small bowel obstruction in the past along with colostomy and colostomy revision as well as drainage of pelvic abscesses. Patient noted she was in her usual state of health yesterday morning but then later in the morning and throughout the day she had abdominal pain that persisted. In addition she noted nausea and vomiting. She notes that she does have a left lower quadrant colostomy which has been having a normal amount of output. She denies any fever shakes or chills. As her pain persisted throughout the day and became somewhat worse she presented to the emergency department. Patient's previous records were reviewed and she was seen at [facility] in August 2019 at which time she was noted have a pelvic abscess requiring transfer to [facility]. She ultimately underwent an abdominal washout in October 2019 for that problem. She is also seen at [facility] for small bowel obstruction in January 2020 that the patient reports was treated successfully without operative intervention. 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 She is also noted to have small bowel obstruction. Labs were performed her white blood cell count was noted to be 29.8. Her hemoglobin and hematocrit were normal. Her platelet count was noted to be normal. Electrolytes revealed her sodium, potassium, and magnesium were all within normal range. Lactic acid level was checked which was not elevated and her creatinine was noted to be within normal range. A Covid test has been performed and is pending. Allergies Allergy/AdvReac Type Severity Reaction Status Date / Time nickel Allergy Intermediate Rash Verified 11/14/20 03:26 venlafaxine AdvReac Intermediate Hypertensio Verified 11/14/20 03:26 n,Headache clarithromycin AdvReac Mild Nausea/Vomi Verified 11/14/20 03:26 ting codeine AdvReac Mild UPSET Verified 11/14/20 03:26 STOMACH hydrocodone AdvReac Mild Nausea/Vomi Verified 11/14/20 03:26 ting metronidazole [From Flagyl] AdvReac Mild Gastrointestinal Verified 11/14/20 03:26 Upset Home Medications Medication Instructions Recorded Confirmed Type folic acid 1 mg PO QAM 08/04/19 11/14/20 History citalopram 40 mg tablet 40 mg PO QAM #90 tab 01/09/20 11/14/20 Rx magnesium oxide 400 mg PO BID #20 tab 02/29/20 11/14/20 Rx prochlorperazine maleate 5 mg PO TID PRN 03/12/20 11/14/20 History [Compazine] oxycodone 5 mg tablet 5 mg PO Q6H PRN #120 tab 08/05/20 11/14/20 Rx aspirin 81 mg PO DAILY 08/09/20 11/14/20 History fluconazole [Diflucan] 200 mg PO Q72H PRN #5 tab 08/09/20 11/14/20 Rx benzonatate 100 mg capsule 100 mg PO TID PRN #60 cap 09/01/20 11/14/20 Rx levothyroxine 100 mcg tablet 100 mcg PO QAM #90 tab 09/03/20 11/14/20 Rx lorazepam 0.5 mg tablet 0.5 mg PO Q12H PRN #60 tab 10/11/20 11/14/20 Rx pantoprazole 40 mg tablet,delayed 40 mg PO QAM #90 tab 11/05/20 11/14/20 Rx release cefepime 2 gram/50 mL in dextrose 2 g IV Q12H 10 Days #20 ea 11/10/20 11/14/20 Rx 5 % intravenous piggyback Patient History Medical History Adenocarcinoma, lung Adrenal cortical adenoma Anasarca Anxiety Arthritis Biceps tendonitis Cataract COVID-19 virus antibody negative Depression Esophageal dyskinesia Essential hypertriglyceridemia Fatigue Gastritis Gastroesophageal reflux disease History of bronchitis History of diverticulitis Hyperlipidemia Hypothyroidism Intermittent hydrarthrosis of elbow Irritable bowel syndrome Lung cancer NEW DX Metastatic bone cancer radiation treatments completed 08/25/19. Olecranon bursitis Osteoarthritis Osteopenia Pneumonia hx Sialoadenitis Surgical History History of cataract surgery RT/LEFT History of colonoscopy Dr. Veronica 12/2011 History of dilatation and curettage History of discectomy CERVICAL (GOOD ROM) History of repair of rotator cuff RT History of tooth extraction S/P section X 1 S/P hip replacement left. 07/02/2019. SAB with MAC. no issues. Family History Family/Other Family history of diabetes mellitus Brother Family hx of colon cancer Mother , age 66 Diabetes Cancer ovarian Coronary heart disease had acute [place] which led to her Sister Cancer Family/Other Breast cancer Father , age 49 Suicide Alcoholism Social History Smoking Status: Current every day smoker Tobacco Type: Cigarettes Age Started Using Tobacco: 21; packs per day: 0.5; Cigarettes Per Day: 5; Second Hand Exposure: No; Hx Alcohol Use: No Hx Substance Use: Yes Last Used Substance: Hours (ago) Last Used Substance Other:: 9 am 08/09/20 Preferred Language: Macedonian Communication Ability: Effective Visual Impairment: No Limitations Hearing Ability: Normal Media Executive Required: No Beliefs That Will Affect Care: None marital status: / Current Living Situation: Alone and Family Current Living Situation Comment: lives with grandson current occupational status: retired current occupation: worked at [employer] ([employer]) other: 1 daughter Feels Safe at Home: Yes Childhood Exposure to Second-Hand Smoke: Yes (both parents) caffeine: Yes Dental Care, Regularly: No Seatbelt Use: always Assistive Devices: None and Walker Review of Systems Constitutional: no fever and no chills Eyes: no diplopia Ear, Nose, Mouth, Throat: no ear pain Respiratory: no cough and no dyspnea Cardiovascular: no chest pain Gastrointestinal: + abdominal pain, + nausea and + vomiting Genitourinary: no dysuria Musculoskeletal: no back pain Integumentary: no rash Neurologic: no localized weakness Physical Exam Constitutional: + thin; no acute distress Eyes: no conjunctival abnormality ENMT: Ears: no hearing impairment Neck: trachea midline Respiratory: normal respiratory effort; no respiratory distress and no labored breathing Cardiovascular: Rate/Rhythm: regular rate and regular rhythm Gastrointestinal (Abdomen): Patient's abdomen does not appear overly distended. She has a colostomy noted in the left lower quadrant. Adjacent to the right of the colostomy is a fistula draining feculent material. The abdomen is tender to palpation in a generalized fashion. Musculoskeletal: No calf tenderness Skin: no rashes, warm and dry Neurologic: moves all extremities Psychiatric: A+Ox3, euthymic affect Results & Data ([facility]) Vital Signs (Past 12 Hours) Vital Signs Temp Pulse Resp BP Pulse Ox 11/14/20 02:55 36.3 C L 73 24 171/76 H 96 PG Care Time/CCT Total # of Minutes Spent Total Time Spent with Patient: Total time spent is greater than 50% in coordination of care (as documented) at patient's floor/unit and/or counseling patient: Coding Level of Care Code 90689 Inpt Consult Level 5 Diagnoses SBO (small bowel obstruction) K56.609
--- NOTE | 2020-11-14 04:53 | History & Physical Report ---
Date of Service November 14, 2020 Assessment & Plan (1) SBO (small bowel obstruction): Patient with history of SBO, has LLQ colostomy in place with peristomal hernia. NGT placed in ER with symptom improvement. Patient seen by General Surgery in ER -Admit to medical with telemetry -Appreciate General Surgery input -Keep NPO -NGT to LIWS -IVF and electrolyte repletion -Zofran PRN nausea -Morphine PRN pain Present on Admission?: Yes (2) Lung cancer: Stage IV adenocarcinoma. Patient follows with Oncology -Outpatient care as scheduled Present on Admission?: Yes (3) Fistula: Longstanding cutaneous fistula with copious purulent drainage. Patient with history of Pseudomonas in the past -Zosyn 4.5gm IV q 8 hours -Ostomy/Wound consultation - ?placing bag over draining fistula for management of drainage Present on Admission?: Yes (4) Hypomagnesemia: Stable -Continue PO Magnesium supplementation Present on Admission?: Yes (5) GERD (gastroesophageal reflux disease): Chronic. Stable -Continue Protonix 40mg po daily Present on Admission?: Yes (6) Chronic kidney disease, stage 3a: Chronic. Stable -Continue to monitor -Avoid nephrotoxic agents Present on Admission?: Yes (7) Hypothyroidism: Chronic -Continue Synthroid Present on Admission?: Yes (8) Depression: Chronic. -Continue Celexa -Ativan PRN F/E/N - LR x 2 liters, monitor electroltyes, NPO for now Ppx - Lovenox Code - Full Dispo - Admit to medical Present on Admission?: Yes History of Present Illness Chief Complaint: nausea and vomiting Primary Care Provider: Zion Bartholomew MD Aydee Burgos is a 80yo female with metastatic adenocarcinoma of the lung, prior SBO s/p colostomy placement, pelvic abscesses and longstanding cutaneous fistula. She presents today with one day of nausea with multiple episodes of non-bloody/non-bilious vomiting, abdominal pain and distention that started acutely yesterday. She states colostomy output has been fine - no diarrhea. She has had chills but denies fevers, chest pain, cough, SOB. No additional complaints at this time. ER Course: Vancomycin, Zosyn, NSS, Dilaudid, Fentanyl Allergies Allergy/AdvReac Type Severity Reaction Status Date / Time nickel Allergy Intermediate Rash Verified 11/14/20 03:26 venlafaxine AdvReac Intermediate Hypertensio Verified 11/14/20 03:26 n,Headache clarithromycin AdvReac Mild Nausea/Vomi Verified 11/14/20 03:26 ting codeine AdvReac Mild UPSET Verified 11/14/20 03:26 STOMACH hydrocodone AdvReac Mild Nausea/Vomi Verified 11/14/20 03:26 ting metronidazole [From Flagyl] AdvReac Mild Gastrointestinal Verified 11/14/20 03:26 Upset Home Medications Medication Instructions Recorded Confirmed Type folic acid 1 mg PO QAM 08/04/19 11/14/20 History citalopram 40 mg tablet 40 mg PO QAM #90 tab 01/09/20 11/14/20 Rx magnesium oxide 400 mg PO BID #20 tab 02/29/20 11/14/20 Rx prochlorperazine maleate 5 mg PO TID PRN 03/12/20 11/14/20 History [Compazine] oxycodone 5 mg tablet 5 mg PO Q6H PRN #120 tab 08/05/20 11/14/20 Rx aspirin 81 mg PO DAILY 08/09/20 11/14/20 History fluconazole [Diflucan] 200 mg PO Q72H PRN #5 tab 08/09/20 11/14/20 Rx benzonatate 100 mg capsule 100 mg PO TID PRN #60 cap 09/01/20 11/14/20 Rx levothyroxine 100 mcg tablet 100 mcg PO QAM #90 tab 09/03/20 11/14/20 Rx lorazepam 0.5 mg tablet 0.5 mg PO Q12H PRN #60 tab 10/11/20 11/14/20 Rx pantoprazole 40 mg tablet,delayed 40 mg PO QAM #90 tab 11/05/20 11/14/20 Rx release cefepime 2 gram/50 mL in dextrose 2 g IV Q12H 10 Days #20 ea 11/10/20 11/14/20 Rx 5 % intravenous piggyback Past Med/Surg History Medical History Adenocarcinoma, lung Adrenal cortical adenoma Anasarca Anxiety Arthritis Biceps tendonitis Cataract COVID-19 virus antibody negative Depression Esophageal dyskinesia Essential hypertriglyceridemia Fatigue Gastritis Gastroesophageal reflux disease History of bronchitis History of diverticulitis Hyperlipidemia Hypothyroidism Intermittent hydrarthrosis of elbow Irritable bowel syndrome Lung cancer NEW DX Metastatic bone cancer radiation treatments completed 08/25/19. Olecranon bursitis Osteoarthritis Osteopenia Pneumonia hx Sialoadenitis Surgical History History of cataract surgery RT/LEFT History of colonoscopy Dr. Veronica 12/2011 History of dilatation and curettage History of discectomy CERVICAL (GOOD ROM) History of repair of rotator cuff RT History of tooth extraction S/P section X 1 S/P hip replacement left. 07/02/2019. SAB with MAC. no issues. Family History Family/Other Family history of diabetes mellitus Brother Family hx of colon cancer Mother , age 66 Diabetes Cancer ovarian Coronary heart disease had acute [place] which led to her Sister Cancer Family/Other Breast cancer Father , age 49 Suicide Alcoholism Social History Smoking Status: Current every day smoker Tobacco Type: Cigarettes Age Started Using Tobacco: 21; packs per day: 0.5; Cigarettes Per Day: 5; Second Hand Exposure: No; Hx Alcohol Use: No Hx Substance Use: Yes Last Used Substance: Hours (ago) Last Used Substance Other:: 9 am 08/09/20 Preferred Language: Danish Communication Ability: Effective Visual Impairment: No Limitations Hearing Ability: Normal Registered Nurse Step Down Required: No Beliefs That Will Affect Care: None marital status: / Current Living Situation: Alone and Family Current Living Situation Comment: lives with grandson current occupational status: retired current occupation: worked at [employer] other: 1 daughter Feels Safe at Home: Yes Childhood Exposure to Second-Hand Smoke: Yes (both parents) caffeine: Yes Dental Care, Regularly: No Seatbelt Use: always Assistive Devices: None and Walker Review of Systems Review of Systems: All systems reviewed & are unremarkable except as noted in HPI & below Physical Exam Physical Exam: General: cachectic, frail, chronically ill in appearance Skin: warm, dry, no rashes or lesions HEENT: NC/AT, PERRL, EOMI, anicteric sclera, conjunctiva without injection, external ear normal to inspection and nontender, nares patent, dry mucus membranes, dentition intact, no oropharyngeal lesions, neck supple, trachea midline, no LAD, no thyromegaly, no JVD Heart: +S1/S2, regular, no m/r/g, left chest port in place, nontender Lungs: equal air entry bilaterally, no rales/rhonchi/wheezes Abd: diminished bowel sounds, soft, diffusely tender with voluntary guarding, colostomy in LLQ with stool present, parastomal hernia noted on imaging, cutaneous fistula in RLQ with copious purulent drainage Ext: warm, 2+ pulses in UE/LE bilaterally, no clubbing/cyanosis or edema Neuro: nonfocal, patient AA&O x 4, speech intact, no facial droop, moving all extremities on command with equal strength 5/5 Results & Data Results & Data ([facility]) Vital Signs (Past 12 Hours) Vital Signs Temp Pulse Resp BP Pulse Ox 11/14/20 02:55 36.3 C L 73 24 171/76 H 96 Laboratory Results Lab Results 11/14/20 11/14/20 11/14/20 Range/Units 03:16 03:16 03:16 WBC 29.80 H (4.8-10.8) K/uL RBC 4.48 (4.2-5.4) M/uL Hgb 13.5 (12.0-16.0) g/dL Hct 41.2 (37-47) % MCV 92.0 (80-100) fL MCH 30.1 (25-34) pg MCHC 32.8 (32-36) g/dL RDW Std Deviation 61.2 H (36.4-46.3) fL RDW Coeff of Raymundo 18.3 H (11.5-14.5) % Plt Count 375 (130-400) K/uL MPV 8.7 (7.4-10.4) fL Immature Gran % (Auto) 0.6 % Neut % (Auto) 91.5 % Lymph % (Auto) 6.2 % Roane % (Auto) 1.5 % Eos % (Auto) 0.1 % Baso % (Auto) 0.1 % Neut # (Auto) 27.26 H (1.4-6.5) K/uL Lymph # (Auto) 1.85 (1.2-3.4) K/uL Roane # (Auto) 0.46 (0.11-0.59) K/uL Eos # (Auto) 0.04 (0-0.5) K/uL Baso # (Auto) 0.02 (0-0.2) K/uL Immature Gran # (Auto) 0.17 H (0.00-0.02) K/uL PT 9.7 (9.0-12.0) Seconds INR 1.0 (0.9-1.1) Sodium 136 (136-145) mmol/L Potassium 3.8 (3.5-5.1) mmol/L Chloride 99 (98-107) mmol/L Carbon Dioxide 31 (21-32) mmol/L Anion Gap 6.0 (3-11) BUN 21 H (7-18) mg/dl Creatinine 0.87 (0.6-1.2) mg/dl Est Cr Clr Drug Dosing 42.3 ml/min Est GFR ( Amer) 74.0 Est GFR (Non-Af Amer) 63.8 BUN/Creatinine Ratio 23.9 H (10-20) Glucose 143 H (70-99) mg/dl Lactate (0.4-2.0) mmol/L Calcium 9.0 (8.5-10.1) mg/dl Magnesium 1.8 (1.8-2.4) mg/dl Total Bilirubin 0.2 (0.2-1) mg/dl Direct Bilirubin < 0.1 (0-0.2) mg/dl AST 10 L (15-37) U/L ALT 13 (12-78) U/L Alkaline Phosphatase 117 (45-117) U/L Troponin I < 0.015 (0-0.045) ng/ml Total Protein 7.8 (6.4-8.2) gm/dl Albumin 3.0 L (3.4-5.0) gm/dl Lipase 100 (73-393) U/L COVID-19 Eval Order 11/14/20 11/14/20 Range/Units 04:10 04:17 WBC (4.8-10.8) K/uL RBC (4.2-5.4) M/uL Hgb (12.0-16.0) g/dL Hct (37-47) % MCV (80-100) fL MCH (25-34) pg MCHC (32-36) g/dL RDW Std Deviation (36.4-46.3) fL RDW Coeff of Raymundo (11.5-14.5) % Plt Count (130-400) K/uL MPV (7.4-10.4) fL Immature Gran % (Auto) % Neut % (Auto) % Lymph % (Auto) % Roane % (Auto) % Eos % (Auto) % Baso % (Auto) % Neut # (Auto) (1.4-6.5) K/uL Lymph # (Auto) (1.2-3.4) K/uL Roane # (Auto) (0.11-0.59) K/uL Eos # (Auto) (0-0.5) K/uL Baso # (Auto) (0-0.2) K/uL Immature Gran # (Auto) (0.00-0.02) K/uL PT (9.0-12.0) Seconds INR (0.9-1.1) Sodium (136-145) mmol/L Potassium (3.5-5.1) mmol/L Chloride (98-107) mmol/L Carbon Dioxide (21-32) mmol/L Anion Gap (3-11) BUN (7-18) mg/dl Creatinine (0.6-1.2) mg/dl Est Cr Clr Drug Dosing ml/min Est GFR ( Amer) Est GFR (Non-Af Amer) BUN/Creatinine Ratio (10-20) Glucose (70-99) mg/dl Lactate 1.8 (0.4-2.0) mmol/L Calcium (8.5-10.1) mg/dl Magnesium (1.8-2.4) mg/dl Total Bilirubin (0.2-1) mg/dl Direct Bilirubin (0-0.2) mg/dl AST (15-37) U/L ALT (12-78) U/L Alkaline Phosphatase (45-117) U/L Troponin I (0-0.045) ng/ml Total Protein (6.4-8.2) gm/dl Albumin (3.4-5.0) gm/dl Lipase (73-393) U/L COVID-19 Eval [facility] Abdomen: Diffusely dilated and fluid-filled small bowel with multiple air fluid levels and decompressed distal small bowel. Findings consistent with SBO. LLQ colostomy. 8 cm peristomal hernia containing mesenteric fat, flid and fecalized loop of small bowel which could be the source of small bowel obstruct ion. Colonic diverticulosis. Code Status & VTE Plan VTE Prophylaxis Plan VTE Prophylaxis will be ordered: Yes PG Care Time/CCT Total # of Minutes Spent Total Time Spent with Patient: Total time spent is greater than 50% in coordination of care (as documented) at patient's floor/unit and/or counseling patient: Coding Level of Care Code 67401 Initial Inpt Care Lvl 3 Diagnoses SBO (small bowel obstruction) K56.609 Lung cancer C34.90 Laterality: unspecified laterality Lung location: unspecified part of lung Fistula L98.8 Hypomagnesemia E83.42 GERD (gastroesophageal reflux disease) K21.9 Esophagitis presence: without esophagitis Chronic kidney disease, stage 3a N18.3 Hypothyroidism E03.9 Hypothyroidism type: acquired Depression F32.9 Depression Type: major depressive disorder Major depression recurrence: unspecified whether recurrent Active/Remission status: remission status unspecified (1) Lung cancer Laterality: unspecified laterality Lung location: unspecified part of lung Qualified Code(s): C34.90 - Malignant neoplasm of unspecified part of unspecified bronchus or lung (2) GERD (gastroesophageal reflux disease) Esophagitis presence: without esophagitis Qualified Code(s): K21.9 - Gastro- esophageal reflux disease without esophagitis (3) Hypothyroidism Hypothyroidism type: acquired Qualified Code(s): E03.9 - Hypothyroidism, unspecified (4) Depression Depression Type: major depressive disorder Major depression recurrence: unspecified whether recurrent Active/Remission status: remission status unspecified Qualified Code(s): F32.9 - Major depressive disorder, single episode, unspecified
[2020-11-14] MEDS ORDERED: oxyCODONE HCL IR 5 MG TAB (IMMEDIATE RELEASE) PO PRN (06:11)
[2020-11-14] MEDS ORDERED: ONDANSETRON INJ 2 MG/ML 2 ML VIAL IV PRN (06:11)
[2020-11-14] MEDS ORDERED: LORazepam 0.5 MG TAB PO PRN (06:11)
[2020-11-14] MEDS ORDERED: PROCHLORPERAZINE MALEATE 5 MG TAB PO PRN (06:11)
[2020-11-14] MEDS ORDERED: BENZONATATE 100 MG CAPSULE PO PRN (06:11)
[2020-11-14] MEDS: SODIUM CHLORIDE 0.9% 1000ML 1,000 ML IV SCH ×2 (06:44→17:13)
[2020-11-14] MEDS: LEVOTHYROXINE SODIUM 100 MCG TABLET PO SCH (06:45)
--- NOTE | 2020-11-14 07:01 | CT Scan Report ---
CT SCAN OF THE ABDOMEN AND PELVIS WITHOUT CONTRAST CLINICAL HISTORY: Diffuse abdominal pain and vomiting. History of small bowel obstruction. Non-small cell lung carcinoma. COMPARISON STUDY: CT scan dated 03/30/2020 TECHNIQUE: CT scan of the abdomen and pelvis was performed from the lung bases to the proximal femurs . Images are reviewed in the axial, sagittal, and coronal planes. IV contrast was not administered fo r this examination. A dose lowering technique was utilized adhering to the principles of ALARA. CT DOSE: 264.21 mGy.cm FINDINGS: Lower chest: There are coronary artery calcifications. There is a trace pericardial effusion. There i s minor dependent atelectasis. Underlying pulmonary emphysema is suspected. Liver: The unenhanced liver is normal in size, contour, and attenuation. There is no intrahepatic nas iary ductal dilatation. Gallbladder: Unremarkable. Spleen: Normal in size and attenuation. Pancreas: Unremarkable. Adrenal glands: There is a stable 17 mm left adrenal gland nodule Kidneys: There is a 16mm right renal cyst. There is mild left-sided hydronephrosis and hydroureter. Bowel: There is a left lower quadrant colostomy with a parastomal hernia. There is a high-grade small bowel obstruction possibly due to the hernia. Peritoneum: There is no intraperitoneal free air or abdominal ascites. Vasculature: The abdominal aorta is normal in course and caliber. Adenopathy: There is no upper abdominal adenopathy. There is abnormal soft tissue within the region o f the pelvic sidewalls. This could represent adenopathy although it is not well delineated. Pelvic viscera: Evaluation the pelvis is limited given the lack of intravenous and oral contrast and artifact from a total left hip arthroplasty. There is presacral soft tissue thickening. There is incr eased soft tissue within the left pelvic sidewall. There are matted bowel loops within the pelvis. A pelvic mass/adenopathy must be considered. There are calcified uterine fibroids. Skeletal structures: There are nonspecific areas of skeletal sclerosis within the pelvis. IMPRESSION: 1. High-grade small bowel obstruction, possibly secondary to the interval development of a left lower quadrant parastomal colostomy hernia 2. Stable 17 mm left adrenal nodule 3. Left-sided hydronephrosis and hydroureter 4. Limited evaluation the pelvis given the lack of oral and intravenous contrast. There is increased pelvic soft tissue with presacral thickening. There is increased soft tissue within the left pelvic s idewall. Adenopathy/neoplasm must be considered. ACT 112: Negative or not required by law. Electronically signed by: Patrick Shields M.D. 11/14/2020 7:00 AM
--- NOTE | 2020-11-14 07:32 | XRay Report ---
XR chest 1V portable CLINICAL HISTORY: chest pain/vomiting COMPARISON STUDY: 10/14/2020 FINDINGS: The patient is hyperinflated. The chest has an emphysematous configuration. The heart is no rmal in size. There is no failure. There is no focal pulmonary consolidation. There are no pleural ef fusions. There is no free intraperitoneal air. There is a left-sided A-Port catheter.[ IMPRESSION: Emphysema. No acute findings. ACT 112: Negative or not required by law. Electronically signed by: Patrick Shields M.D. 11/14/2020 7:30 AM
[2020-11-14] MEDS: ENOXAPARIN INJ 30 MG/0.3 ML SYR SQ SCH (10:16)
[2020-11-14] MEDS: MAGNESIUM OXIDE 400 MG TAB PO SCH ×2 (10:17→20:52)
[2020-11-14] MEDS: CITALOPRAM 40 MG TAB PO SCH (10:17)
[2020-11-14] MEDS: PANTOprazole 40 MG TAB PO SCH (10:17)
[2020-11-14] MEDS: ASPIRIN 81 MG ECTAB PO SCH (10:17)
[2020-11-14] MEDS: FOLIC ACID 1 MG TAB PO SCH (10:17)
[2020-11-14] MEDS: PIPERACILLIN/TAZOBACTAM 3.375 GM in DEXTROSE 5% 100 ML IV SCH ×2 (10:18→17:14)
--- NOTE | 2020-11-14 11:58 | Hospitalist Progress Note ---
Date of Service November 14, 2020 Assessment & Plan (1) Small bowel obstruction: Aydee is a very pleasant 80-year-old female with a notable past medical history of metastatic adenocarcinoma of the lung, prior small bowel obstruction status post colostomy placement, and chronic pelvic abscesses seen on CT (s/p abdominal washout 10/2019), and longstanding cutaneous fistulas who presented to [facility] on November 13 for evaluation of one day of abdominal pain, nausea, and vomiting, subsequently found to have evidence of a small bowel obstruction on her CT-Abd/Pelvis. She is currently undergoing NG decompression and is being followed by surgery. No urgent surgical intervention required at this time. Patient is hemodynamically stable. Small Bowel Obstruction Current small bowel obstruction likely secondary to the large left lower quadra nt parastomal colostomy hernia appreciated on examination and CT-Abd/Pelvis s/p sigmoid colectomy and end ostomy placement in 10/2019 at [facility] SBO in January 2020 treated here with good resolution, not requiring surgical intervention General surgery consulted, appreciate insight and recommendations: Remain n.p.o. Continue NG tube with low intermittent suction Continue IV fluids and electrolyte repletion as needed No need for urgent surgical intervention at this time Continue Zofran as needed for nausea Continue morphine as needed for pain Cutaneous fistula - with previous cultures demonstrating Pseudomonas growth and MSSA in 08/2020-10/2020 Patient has a longstanding history of this cutaneous fistula with purulent drainage General surgery following: attempt to place bag over fistula to control drainage Continue Zosyn IV Ostomy and wound care consultation placed for further management while here Blood cultures pending Metastatic adenocarcinoma of the lung Patient follows with oncology in the outpatient setting (Dr. Sweeney) Continue outpatient follow-up following discharge GERD Chronic, stable Continue Protonix while here CKD stage III Continue to monitor while here, avoid nephrotoxic agents Chronic hypothyroidism Continue levothyroxine Major depressive disorder Social support while here Continue home Celexa Dispo: MedSurg with telemetry FEN/GI: Maintain n.p.o. IVF as needed. PPx: Lovenox Code: Full code (2) Hypomagnesemia: (3) Lung cancer: (4) Fistula: (5) Hydroureteronephrosis: (6) Adenocarcinoma of lung, stage 4: (7) Bone metastasis: (8) Depression: (9) Gastroesophageal reflux disease: Admission and Anticipated Discharge Date Admission Date: November 14, 2020 Supervising Physician Co-Signing Physician Notes Resident Physician Supervision Note: I independently interviewed and examined the patient and verified the thorpe history and physical, reviewed labs and image studies, discussed the case with the resident Dr. Solis and agree with the findings and care plan. Subjective No acute events overnight. Patient seen at the bedside this morning, who reports feeling "much improved" compared to earlier in the morning. She says that her pain is nearly nonexistent at this time. She denies any nausea. Denies any shortness of breath or chest pain. Just prior to my arrival, she did have her colostomy bag emptied, which was nearly full. She did endorse passing gas last night, but none throughout this morning. She denies pain elsewhere. No other concerns this morning. Her admitting history and consultations were reviewed with her. No additions or changes at this time. Review of Systems Review of Systems: As per HPI. Physical Exam Constitutional: Frail-appearing 80-year-old female who is sitting at the edge of her hospital bed, intermittently standing up throughout our conversation. She is fully alert and oriented. She smiles intermittently throughout her conversation. No acute distress. Respiratory: Good respiratory effort with symmetric expansion of the chest. Lungs are clear to auscultation bilaterally without crackles or wheezes. Cardiovascular: Normal rate and regular rhythm. S1 and S2 are present without murmurs rubs or gallops. No peripheral edema in the lower extremities bilaterally. Gastrointestinal (Abdomen): Hypoactive bowel sounds appreciated this morning. On visual examination of the abdomen, there is a large parastomal hernia on the left side of her abdomen. The colostomy bag is in place and draining normal- appearing bowel contents. The hernia is mildly tender to palpation, without rebound or guarding. Her right sided quadrants are mildly distended to palpation and are firm. There is some tenderness to palpation, no guarding here either. No suprapubic tenderness. Fistula with recently replaced dressing, that is clean, dry, and intact. The fistula was not visualized during this examination Results & Data Results & Data ([facility]) Vital Signs (Past 12 Hours) Vital Signs Temp Pulse Pulse Resp BP BP Pulse Ox 11/14/20 11:14 36.7 C 80 18 106/61 92 11/14/20 08:00 87 11/14/20 07:26 36.6 C 79 18 113/64 98 11/14/20 06:25 36.6 C 94 H 18 122/68 97 11/14/20 05:40 87 18 120/56 L 100 11/14/20 05:00 81 20 128/61 100 11/14/20 04:30 97 H 20 141/76 H 94 11/14/20 04:00 73 20 184/83 H 98 11/14/20 03:38 72 14 184/82 H 97 11/14/20 02:55 36.3 C L 73 24 171/76 H 96 Resident Activity Tracking Resident Involvement: Resident Care Provided Care Provided: [facility] Medicine (1) Adenocarcinoma of lung, stage 4 Laterality: unspecified laterality Qualified Code(s): C34.90 - Malignant neoplasm of unspecified part of unspecified bronchus or lung (2) Depression Active/Remission status: remission status unspecified Depression Type: major depressive disorder Major depression recurrence: unspecified whether recurrent Qualified Code(s): F32.9 - Major depressive disorder, single episode, unspecified (3) Lung cancer Laterality: unspecified laterality Lung location: unspecified part of lung Qualified Code(s): C34.90 - Malignant neoplasm of unspecified part of unspeci fied bronchus or lung (4) Gastroesophageal reflux disease Esophagitis presence: esophagitis presence not specified Qualified Code(s): K21.9 - Gastro-esophageal reflux disease without esophagitis
[2020-11-14 15:52] LABS: Appearance Urine Clear (Clear); Bilirubin Urine Negative (Negative); Blood Urine Negative (Negative); Color Urine Yellow; Glucose Urine UA Negative (Negative); Ketones Urine Negative (Negative); Leukocyte Esterase Urine Negative (Negative); Nitrite Urine Negative (Negative); Protein Urine Negative (Negative); Urobilinogen Urine Negative (Negative)
[2020-11-14] MEDS: MoRPHine SULFATE 2 MG/ML CARP IV PRN (21:03)
[2020-11-15] MEDS: PIPERACILLIN/TAZOBACTAM 3.375 GM in DEXTROSE 5% 100 ML IV SCH ×3 (01:48→18:03)
--- NOTE | 2020-11-15 05:33 | Electrocardiogram Report ---
Test Reason : Blood Pressure : / mmHG Vent. Rate : 060 BPM Atrial Rate : 060 BPM P-R Int : 122 ms QRS Dur : 084 ms QT Int : 430 ms P-R-T Axes : 073 -48 071 degrees QTc Int : 430 ms Sinus rhythm with Premature atrial complexes Left anterior fascicular block Abnormal ECG When compared with ECG of 14-OCT-2020 15:21, Left anterior fascicular block is now Present Criteria for Septal infarct are no longer Present Confirmed by Jarrod Sheldon ([id number]) on 11/15/2020 5:33:36 AM Referred By: REFERRED SELF Confirmed By:Jarrod Sheldon
[2020-11-15] MEDS: HEPARIN 100 UNIT/ML 5ML FLUSH FLUSH PRN ×2 (05:39→22:46)
[2020-11-15] MEDS: LEVOTHYROXINE SODIUM 100 MCG TABLET PO SCH (05:40)
[2020-11-15 06:30] LABS: BUN Creatinine Ratio 19.4 (10-20); C Reactive Protein 9.89 mg/dl (0-0.29); Calcium 8.5 mg/dl (8.5-10.1); Creatinine Clr Calc Pharmacy 59.4 ml/min; Est GFR (African American) 99.6; Est GFR (Non-African American) 85.9; Potassium 3.3 mmol/L (3.5-5.1)
[2020-11-15 06:41] LABS: Basophils # (auto) 0.02 K/uL (0-0.2); Basophils % (auto) 0.2 %; Eosinophils # (auto) 0.29 K/uL (0-0.5); Eosinophils % (auto) 2.3 %; Hematocrit (blood only) 34.4 % (37-47); Hemoglobin 10.9 g/dL (12.0-16.0); Immature Granulocytes # (auto) 0.05 K/uL (0.00-0.02); Immature Granulocytes % (auto) 0.4 %; Lymphocytes # (auto) 0.76 K/uL (1.2-3.4); Mean Corpuscular Hemoglobin 29.5 pg (25-34); Mean Corpuscular Hgb Conc 31.7 g/dL (32-36); Monocytes # (auto) 0.79 K/uL (0.11-0.59); Monocytes % (auto) 6.3 %; Neutrophils # (auto) 10.69 K/uL (1.4-6.5); Neutrophils % (auto) 84.8 %; Platelet Count 247 K/uL (130-400); RDW Coefficient of Variation 18.6 % (11.5-14.5); RDW Standard Deviation 63.2 fL (36.4-46.3)
--- NOTE | 2020-11-15 08:16 | Hospitalist Progress Note ---
Date of Service November 15, 2020 Assessment & Plan (1) Small bowel obstruction: Aydee is a very pleasant 80-year-old female with a notable past medical history of metastatic adenocarcinoma of the lung, prior small bowel obstruction status post colostomy placement, and chronic pelvic abscesses seen on CT (s/p abdominal washout 10/2019), and longstanding cutaneous fistulas who presented to [facility] on November 13 for evaluation of one day of abdominal pain, nausea, and vomiting, subsequently found to have evidence of a small bowel obstruction on her CT-Abd/Pelvis. She is currently undergoing NG decompression and is being followed by surgery. No urgent surgical intervention required at this time. Patient is hemodynamically stable. #Small Bowel Obstruction Pt is s/p sigmoid colectomy and end ostomy placement in 10/2019 at [facility]. SBO in 2019 treated here with good resolution, not requiring surgical intervention. 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 KUB on 11/15 redemonstrated small bowel obstruction, ostomy has good output, patient reports feeling improvement. General surgery consulted, appreciate insight and recommendations: D/C NG Advance diet to low fiber No need for urgent surgical intervention at this time Continue IV fluids and electrolyte repletion as needed -Continue Zosyn Continue Zofran as needed for nausea Continue morphine as needed for pain #Cutaneous fistula - with previous cultures demonstrating Pseudomonas growth and MSSA in 08/2020-10/2020 Patient has a longstanding history of this cutaneous fistula with purulent drainage General surgery following: attempt to place bag over fistula to control drainage Continue Zosyn IV Ostomy and wound care consultation placed for further management while here Blood cultures NGTD #Metastatic adenocarcinoma of the lung Patient follows with oncology in the outpatient setting (Dr. Sweeney) Continue outpatient follow-up following discharge #GERD Chronic, stable Continue Protonix while here #CKD stage III Continue to monitor while here, avoid nephrotoxic agents #Chronic hypothyroidism Continue levothyroxine #Major depressive disorder Social support while here Continue home Celexa FENa:Low Fiber Diet Code Status:Full code DVT PPX:Lovenox PT/OT:Not indicated at present Dispo:MedSurg with telemetry Abiodun Hollis MD PGY 2, FCM This chart was completed utilizing AOBi[employer] recognition software. Grammatical errors, random word insertions, pronoun errors, and in complete sentences are an occasional consequence of the system. Any questions or concerns about the content, text, or information contained within the body of this dictation should be addressed directly to the physician for clarification Admission and Anticipated Discharge Date Admission Date: November 14, 2020 Supervising Physician Co-Signing Physician Notes I personally examined the patient and verified all thorpe points of history and exam, discussed case, and agree with decision making with Dr Hollis. Main complaint now is mid/low back pain. Fairly intense worse with movement. Otherwise her bowels are working better she feels hungry. Would like to eat. Vitals noted, in general she is awake and alert pleasant no distress. HEENT normocephalic atraumatic mucous membranes moist. Abdomen is soft may be mildly distended mildly tender around parastomal hernia, but it is soft no guarding no rigidity. Left sided lumbar paraspinals and lower thoracic paraspinals are high in tone, tender, decreased range of motiondirect myofascialsoft tissue texture improved some, pain did not seem to change much, patient tolerated well. Small bowel obstructionseems to be hernia related, but is improving. Advance diet. Given septic appearance on presentation, agree with antibiotics in her situation. Fortunately no overt perforation however. Continue current care oth erwise. Back painappears to be very biomechanical. OMT attempted as above although did not seem to have a whole lot of improvementwe will continue to follow. Given that it appears musculoskeletal in nature, topical diclofenaclater at patient request for muscle relaxant Valium ordered. Otherwise as above Subjective Patient lying in bed this morning in no acute distress. Reports doing well overnight, no acute events. Patient reports she is feeling much better this morning, requesting her NG tube be removed, reporting large volume of output via her ostomy. Patient reports feeling hungry, voiding on her own, slept overnight. All questions were answered, acute concerns related to DC of NG tube. Physical Exam Physical Exam: General: Lying in bed with NG tube in place HEENT: Normocephalic atraumatic Neck: Normal to visual inspection Cardiac: Regular rate and rhythm I did not appreciate significant murmurs rubs or gallops, normal S1, normal S2, negative pedal edema, negative calf tenderness Respiratory: Clear to auscultation bilaterally with symmetrical chest expansion I did not appreciate any significant wheezes, rales, rhonchi, no increased work of breathing GI: Soft, nontender, nondistended, ostomy clean dry and intact, output present MSK: Moves all extremities Neuro: Alert and oriented x4 Psych: Calm and cooperative with the interview Results & Data Results & Data ([facility]) Vital Signs (Past 12 Hours) Vital Signs Temp Pulse Pulse Resp BP Pulse Ox 11/15/20 08:14 37.0 C 72 18 155/70 H 92 11/15/20 07:20 69 11/14/20 23:32 37.0 C 77 20 118/67 92 11/14/20 23:00 71 Laboratory Results 11/15/20 11/15/20 11/14/20 Range/Units 05:34 05:34 15:35 WBC 12.60 H (4.8-10.8) K/uL RBC 3.70 L (4.2-5.4) M/uL Hgb 10.9 L (12.0-16.0) g/dL Hct 34.4 L (37-47) % MCV 93.0 (80-100) fL MCH 29.5 (25-34) pg MCHC 31.7 L (32-36) g/dL RDW Std Deviation 63.2 H (36.4-46.3) fL RDW Coeff of Raymundo 18.6 H (11.5-14.5) % Plt Count 247 (130-400) K/uL MPV 9.0 (7.4-10.4) fL Immature Gran % (Auto) 0.4 % Neut % (Auto) 84.8 % Lymph % (Auto) 6.0 % Mora % (Auto) 6.3 % Eos % (Auto) 2.3 % Baso % (Auto) 0.2 % Neut # (Auto) 10.69 H (1.4-6.5) K/uL Lymph # (Auto) 0.76 L (1.2-3.4) K/uL Mora # (Auto) 0.79 H (0.11-0.59) K/uL Eos # (Auto) 0.29 (0-0.5) K/uL Baso # (Auto) 0.02 (0-0.2) K/uL Immature Gran # (Auto) 0.05 H (0.00-0.02) K/uL Sodium 139 (136-145) mmol/L Potassium 3.3 L (3.5-5.1) mmol/L Chloride 104 (98-107) mmol/L Carbon Dioxide 30 (21-32) mmol/L Anion Gap 4.0 (3-11) BUN 12 (7-18) mg/dl Creatinine 0.63 (0.6-1.2) mg/dl Est Cr Clr Drug Dosing 59.4 ml/min Est GFR ( Amer) 99.6 Est GFR (Non-Af Amer) 85.9 BUN/Creatinine Ratio 19.4 (10-20) Glucose 75 (70-99) mg/dl Calcium 8.5 (8.5-10.1) mg/dl C-Reactive Protein 9.89 H (0-0.29) mg/dl Urine Color Yellow Urine Appearance Clear (Clear) Urine pH 6.0 (4.5-7.5) Ur Specific Shelby 1.010 (1.000-1.030) Urine Protein Negative (Negative) Urine Glucose (UA) Negative (Negative) Urine Ketones Negative (Negative) Urine Blood Negative (Negative) Urine Nitrite Negative (Negative) Urine Bilirubin Negative (Negative) Urine Urobilinogen Negative (Negative) Ur Leukocyte Esterase Negative (Negative) Medications Administered Current Inpatient Medications Aspirin (Aspirin 81 Mg Ectab) 81 mg PO DAILY [facility] Stop: 12/14/20 08:59 Last Admin: 11/15/20 09:22 Dose: Not Given Documented by: Benzonatate (Benzonatate 100 Mg Capsule) 100 mg PO TID PRN PRN Reason: cough Stop: 12/14/20 06:10 Citalopram Hydrobromide (Citalopram 40 Mg Tab) 40 mg PO QAM [facility] Stop: 12/14/20 08:59 Last Admin: 11/15/20 12:07 Dose: 40 mg Documented by: Diclofenac Sodium (Diclofenac Sod 1% Gel 100 Gm Tube) 2 gm EXT QID [facility] Stop: 12/15/20 12:59 Last Admin: 11/15/20 14:36 Dose: 2 gm Documented by: Enoxaparin Sodium (Enoxaparin Inj 30 Mg/0.3 Ml Syr) 30 mg SQ Q24H [facility] Stop: 12/14/20 07:59 Last Admin: 11/15/20 09:20 Dose: 30 mg Documented by: Fluconazole (Fluconazole 200 Mg/5 Ml Udp) 200 mg PO [facility]; Protocol Stop: 11/25/20 10:44 Last Admin: 11/15/20 12:00 Dose: 200 mg Documented by: Folic Acid (Folic Acid 1 Mg Tab) [facility] Stop: 12/14/20 08:59 Last Admin: 11/15/20 12:07 Dose: 1 mg Documented by: Heparin Sodium (Porcine) (Heparin 100 Unit/Ml 5ml Flush) 5 ml FLUSH PRN PRN PRN Reason: Flush Stop: 12/15/20 01:23 Last Admin: 11/15/20 05:39 Dose: 5 ml Documented by: Piperacillin Sod/Tazobactam (Sod 3.375 gm/ Dextrose) 115 mls @ 28.75 mls/hr IV Q8H [facility]; Protocol Stop: 11/24/20 09:59 Last Infusion: 11/15/20 14:36 Dose: Infused Documented by: Levothyroxine Sodium (Levothyroxine Sodium 100 Mcg Tablet) [facility] Stop: 12/14/20 06:44 Last Admin: 11/15/20 05:40 Dose: 100 mcg Documented by: Lorazepam (Lorazepam 0.5 Mg Tab) 0.5 mg PO Q12H PRN PRN Reason: anxiety Stop: 12/14/20 06:10 Magnesium Oxide (Magnesium Oxide 400 Mg Tab) 400 mg PO BID [facility] Stop: 12/14/20 08:59 Last Admin: 11/15/20 12:07 Dose: 400 mg Documented by: Miscellaneous Information (Piperacill/Tazobac Consult Active) 1 ea N/A UD PRN PRN Reason: Consult Stop: 12/14/20 06:10 Morphine Sulfate (Morphine Sulfate 2 Mg/Ml Carp) 1 mg IV Q2H PRN PRN Reason: Pain Stop: 11/28/20 06:10 Last Admin: 11/14/20 21:03 Dose: 1 mg Documented by: Ondansetron HCl (Ondansetron Inj 2 Mg/Ml 2 Ml Vial) 4 mg IV Q6H PRN PRN Reason: Nausea Stop: 12/14/20 06:10 Oxycodone HCl (Oxycodone Hcl Ir 5 Mg Tab (Immediate Release)) 5 mg PO Q6H PRN PRN Reason: Pain Stop: 11/28/20 06:34 Last Admin: 11/15/20 12:05 Dose: 5 mg Documented by: Pantoprazole Sodium (Pantoprazole 40 Mg Tab) 40 mg PO QAM [facility] Stop: 12/14/20 08:59 Last Admin: 11/15/20 12:06 Dose: 40 mg Documented by: Prochlorperazine (Prochlorperazine Maleate 5 Mg Tab) 5 mg PO TID PRN PRN Reason: Nausea And Vomiting Stop: 12/14/20 06:10 Resident Activity Tracking Resident Involvement: Resident Care Provided Care Provided: Adult Hospital Medicine
[2020-11-15] MEDS: ENOXAPARIN INJ 30 MG/0.3 ML SYR SQ SCH (09:20)
[2020-11-15] MEDS: POTASSIUM CHLORIDE / WTR 10 MEQ/100 ML PLCT IV SCH ×3 (09:20→13:09)
[2020-11-15] MEDS: CITALOPRAM 40 MG TAB PO SCH ×2 (09:22→12:07)
[2020-11-15] MEDS: PANTOprazole 40 MG TAB PO SCH ×2 (09:22→12:06)
[2020-11-15] MEDS: ASPIRIN 81 MG ECTAB PO SCH (09:22)
[2020-11-15] MEDS: FOLIC ACID 1 MG TAB PO SCH ×2 (09:22→12:07)
[2020-11-15] MEDS: MAGNESIUM OXIDE 400 MG TAB PO SCH ×3 (09:22→20:22)
--- NOTE | 2020-11-15 10:48 | Surgery Progress Note ---
Date of Service November 15, 2020 Assessment & Plan (1) Small bowel obstruction: improved NG output minimal and removed at her request will check KUB before resuming diet Admission and Anticipated Discharge Date Admission Date: November 14, 2020 Subjective feels much better, increasing colostomy output, less fistula drainage Physical Exam Gastrointestinal (Abdomen): Inspection/Auscultation: abdomen not distended Percussion/Palpation: abdomen soft; abdomen nontender NG 100 cc overnight Results & Data ([facility]) Vital Signs (Past 12 Hours) Vital Signs Temp Pulse Pulse Resp BP Pulse Ox 11/15/20 08:14 37.0 C 72 18 155/70 H 92 11/15/20 07:20 69 11/14/20 23:32 37.0 C 77 20 118/67 92 11/14/20 23:00 71 PG Care Time/CCT Total # of Minutes Spent Total Time Spent with Patient: Total time spent is greater than 50% in coordination of care (as documented) at patient's floor/unit and/or counseling patient: Coding Level of Care Code 01522 Subseq Hosp Care Lvl 1 Diagnoses Small bowel obstruction K56.609
--- NOTE | 2020-11-15 11:55 | XRay Report ---
KUB HISTORY: Follow-up. Small bowel obstruction. COMPARISON: KUB 03/30/2020. Abdomen and pelvis CT 11/14/2020. FINDINGS: Left lower quadrant ostomy is again noted. Dilated gas and fluid-filled loops of small alex l are again noted consistent with the patient's history of a small bowel obstruction. There is a left hip hemiarthroplasty. No renal calculi. No ureteral calculi. No pneumoperitoneum or pneumatosis. IMPRESSION: Dilated gas and fluid-filled loops of small bowel are similar to the prior CT and are consistent with a small bowel obstruction. ACT 112: Negative or not required by law. Electronically signed by: Bao Alcala M.D. 11/15/2020 11:53 AM
[2020-11-15] MEDS: FLUCONAZOLE 200 MG/5 ML UDP PO SCH (12:00)
[2020-11-15] MEDS: oxyCODONE HCL IR 5 MG TAB (IMMEDIATE RELEASE) PO PRN ×2 (12:05→20:57)
[2020-11-15] MEDS: DICLOFENAC SOD 1% GEL 100 GM TUBE EXT SCH ×3 (14:36→20:22)
[2020-11-15] MEDS ORDERED: diazePAM 5 MG TABLET PO ONE (17:56)
--- NOTE | 2020-11-15 18:26 | Billing Data ---
Date of Service November 15, 2020 Coding Level of Care Code 95967 Subseq Hosp Care Lvl 3
[2020-11-15] MEDS: MoRPHine SULFATE 2 MG/ML CARP IV PRN (20:18)
[2020-11-16] MEDS: PIPERACILLIN/TAZOBACTAM 3.375 GM in DEXTROSE 5% 100 ML IV SCH ×3 (02:29→18:03)
[2020-11-16] MEDS: LEVOTHYROXINE SODIUM 100 MCG TABLET PO SCH (05:25)
[2020-11-16 05:54] LABS: Basophils # (auto) 0.01 K/uL (0-0.2); Basophils % (auto) 0.1 %; Eosinophils # (auto) 0.27 K/uL (0-0.5); Eosinophils % (auto) 2.3 %; Hematocrit (blood only) 35.2 % (37-47); Hemoglobin 11.4 g/dL (12.0-16.0); Immature Granulocytes # (auto) 0.05 K/uL (0.00-0.02); Immature Granulocytes % (auto) 0.4 %; Lymphocytes # (auto) 0.92 K/uL (1.2-3.4); Lymphocytes % (auto) 7.9 %; Mean Corpuscular Hemoglobin 29.5 pg (25-34); Mean Corpuscular Hgb Conc 32.4 g/dL (32-36); Mean Corpuscular Volume 91.2 fL (80-100); Mean Platelet Volume 8.5 fL (7.4-10.4); Monocytes # (auto) 0.88 K/uL (0.11-0.59); Monocytes % (auto) 7.6 %; Neutrophils # (auto) 9.52 K/uL (1.4-6.5); Neutrophils % (auto) 81.7 %; Platelet Count 225 K/uL (130-400); RDW Standard Deviation 59.9 fL (36.4-46.3); Red Blood Count 3.86 M/uL (4.2-5.4); White Blood Count 11.65 K/uL (4.8-10.8)
[2020-11-16 06:21] LABS: BUN Creatinine Ratio 16.4 (10-20); Calcium 8.5 mg/dl (8.5-10.1); Creatinine Clr Calc Pharmacy 45.5 ml/min; Est GFR (African American) 81.8; Est GFR (Non-African American) 70.6; Potassium 3.5 mmol/L (3.5-5.1)
--- NOTE | 2020-11-16 07:55 | Surgery Progress Note ---
Date of Service November 16, 2020 Assessment & Plan (1) Small bowel obstruction: Patient has not put out anything from ostomy since yesterday evening Diet was backed down to NPO with sips If ostomy starts functioning okay to advance to liquids as tolerates Encourage ongoing ambulation NGT replace if develops nausea/vomiting No plans for surgical intervention from our standpoint at this time Admission and Anticipated Discharge Date Admission Date: November 14, 2020 Subjective Patient states she is not doing as well this AM as she was the day prior. Says her ostomy is not putting out since yesterday evening and she believes the stoma is not protruding as much as it had been. She was tolerating a diet yesterday without issues. She states she feels some mild nausea this AM, but that she still feels hungry. Physical Exam Physical Exam: awake/alert Respiratory: normal respiratory effort Gastrointestinal (Abdomen): Inspection/Auscultation: abdomen not distended Percussion/Palpation: + abdomen tender (some ttp around ostomy site) and abdomen soft ostomy pink and viable; no stool in bag some liquid output noted in fistula bag Results & Data ([facility]) Vital Signs (Past 12 Hours) Vital Signs Temp Pulse Pulse Pulse Resp BP Pulse Ox 11/16/20 07:46 36.6 C 63 18 123/69 93 11/16/20 07:21 65 11/16/20 04:04 37.5 C 74 20 114/65 92 11/16/20 03:46 72 11/15/20 23:02 37.7 C H 78 18 116/70 92 11/15/20 23:00 80 Pulse Ox 11/16/20 07:46 11/16/20 07:21 11/16/20 04:04 11/16/20 03:46 90 11/15/20 23:02 11/15/20 23:00 PG Care Time/CCT Total # of Minutes Spent Total Time Spent with Patient: Total time spent is greater than 50% in coordination of care (as documented) at patient's floor/unit and/or counseling patient: Coding Level of Care Code 16889 Subseq Hosp Care Lvl 1 Diagnoses Small bowel obstruction K56.609
--- NOTE | 2020-11-16 08:31 | Hospitalist Progress Note ---
Date of Service November 16, 2020 Assessment & Plan (1) Small bowel obstruction: Aydee is a very pleasant 80-year-old female with a notable past medical history of metastatic adenocarcinoma of the lung, prior small bowel obstruction status post colostomy placement, and chronic pelvic abscesses seen on CT (s/p abdominal washout 10/2019), and longstanding cutaneous fistulas who presented to [facility] on November 13 for evaluation of one day of abdominal pain, nausea, and vomiting, subsequently found to have evidence of a small bowel obstruction on her CT-Abd/Pelvis. She is currently undergoing NG decompression and is being followed by surgery. No urgent surgical intervention required at this time. Patient is hemodynamically stable. #Small Bowel Obstruction Pt is s/p sigmoid colectomy and end ostomy placement in 10/2019 [place] [facility]. SBO in 2019 treated here with good resolution, not requiring surgical intervention. 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 KUB on 11/15 redemonstrated small bowel obstruction, ostomy has good output, patient reports feeling improvement. General surgery consulted, appreciate insight and recommendations: No output overnight Diet backed off to n.p.o. No need for urgent surgical intervention at this time Replace NG tube if nausea and vomiting develop -Continue Zosyn Continue Zofran as needed for nausea Continue morphine as needed for pain #Cutaneous fistula - with previous cultures demonstrating Pseudomonas growth and MSSA in 08/2020-10/2020 Patient has a longstanding history of this cutaneous fistula with purulent drainage General surgery following: attempt to place bag over fistula to control drainage Continue Zosyn IV Ostomy and wound care consultation placed for further management while here Blood cultures NGTD #Metastatic adenocarcinoma of the lung Patient follows with oncology in the outpatient setting (Dr. Sweeney) Continue outpatient follow-up following discharge #GERD Chronic, stable Continue Protonix while here #CKD stage III Continue to monitor while here, avoid nephrotoxic agents #Chronic hypothyroidism Continue levothyroxine #Major depressive disorder Social support while here Continue home Celexa FENa:Low Fiber Diet Code Status:Full code DVT PPX:Lovenox PT/OT:Not indicated at present Dispo:MedSurg with telemetry Abiodun Hollis MD PGY 2, FCM This chart was completed utilizing dragon dictation voice recognition software. Grammatical errors, random word insertions, pronoun errors, and in complete sentences are an occasional consequence of the system. Any questions or concerns about the content, text, or information contained within the body of this dictation should be addressed directly to the physician for clarification Admission and Anticipated Discharge Date Admission Date: November 14, 2020 Supervising Physician Co-Signing Physician Notes I personally examined the patient and verified all thorpe points of history and exam, discussed case, and agree with decision making with Dr Hollis. worried about stoma - appears smaller to her and not as protruding as before. little to no output. however, far less tender and she does feel hungry. Vitals noted, in general she is awake and alert pleasant no distress. HEENT normocephalic atraumatic mucous membranes moist. Abdomen soft nd minimal tenderness around stoma. no guarding no rebound. Small bowel obstructionseems to be hernia related. today somewhat mixed picture - low output and stoma appears smaller to her - but also more benign exam and feels hungry. will cautiously re-advance diet and follow. Given septic appearance on presentation, agree with antibiotics in her situation. Fortunately no overt perforation however. Continue current care otherwise. Back painappears to be very biomechanical. OMT, voltaren gel, valium yesterday - no complaints of this today. Otherwise as above Subjective Patient resting in bed this morning comfortably no acute distress. Patient reports overnight very significant concern about the size of her stoma in relation to her ability to have a bowel movement. Given the complicated nature of the patient's background, she was made n.p.o. overnight. Unfortunately patient did not have significant output overnight, surgery evaluated her this morning recommending de-escalation of diet, advance as tolerated. Otherwise patient reports voiding, tolerating her diet with the exception of foot, and sleeping overnight all questions were answered, acute concerns related to her stoma. Physical Exam Physical Exam: General: Lying in bed with NG tube in place HEENT: Normocephalic atraumatic Neck: Normal to visual inspection Cardiac: Regular rate and rhythm I did not appreciate significant murmurs rubs or gallops, normal S1, normal S2, negative pedal edema, negative calf tenderness Respiratory: Clear to auscultation bilaterally with symmetrical chest expansion I did not appreciate any significant wheezes, rales, rhonchi, no increased work of breathing GI: Soft, nontender, nondistended, ostomy clean dry and intact, no signs of pus or infection MSK: Moves all extremities Neuro: Alert and oriented x4 Psych: Calm and cooperative with the interview Results & Data Results & Data ([facility]) Vital Signs (Past 12 Hours) Vital Signs Temp Pulse Pulse Pulse Resp BP Pulse Ox 11/16/20 07:46 36.6 C 63 18 123/69 93 11/16/20 07:21 65 11/16/20 04:04 37.5 C 74 20 114/65 92 11/16/20 03:46 72 11/15/20 23:02 37.7 C H 78 18 116/70 92 11/15/20 23:00 80 Pulse Ox 11/16/20 07:46 11/16/20 07:21 11/16/20 04:04 11/16/20 03:46 90 11/15/20 23:02 11/15/20 23:00 Laboratory Results 11/16/20 11/16/20 Range/Units 05:37 05:37 WBC 11.65 H (4.8-10.8) K/uL RBC 3.86 L (4.2-5.4) M/uL Hgb 11.4 L (12.0-16.0) g/dL Hct 35.2 L (37-47) % MCV 91.2 (80-100) fL MCH 29.5 (25-34) pg MCHC 32.4 (32-36) g/dL RDW Std Deviation 59.9 H (36.4-46.3) fL RDW Coeff of Raymundo 18.0 H (11.5-14.5) % Plt Count 225 (130-400) K/uL MPV 8.5 (7.4-10.4) fL Immature Gran % (Auto) 0.4 % Neut % (Auto) 81.7 % Lymph % (Auto) 7.9 % Maverick % (Auto) 7.6 % Eos % (Auto) 2.3 % Baso % (Auto) 0.1 % Neut # (Auto) 9.52 H (1.4-6.5) K/uL Lymph # (Auto) 0.92 L (1.2-3.4) K/uL Maverick # (Auto) 0.88 H (0.11-0.59) K/uL Eos # (Auto) 0.27 (0-0.5) K/uL Baso # (Auto) 0.01 (0-0.2) K/uL Immature Gran # (Auto) 0.05 H (0.00-0.02) K/uL Sodium 138 (136-145) mmol/L Potassium 3.5 (3.5-5.1) mmol/L Chloride 102 (98-107) mmol/L Carbon Dioxide 31 (21-32) mmol/L Anion Gap 5.0 (3-11) BUN 13 (7-18) mg/dl Creatinine 0.80 (0.6-1.2) mg/dl Est Cr Clr Drug Dosing 45.5 ml/min Est GFR ( Amer) 81.8 Est GFR (Non-Af Amer) 70.6 BUN/Creatinine Ratio 16.4 (10-20) Glucose 93 (70-99) mg/dl Calcium 8.5 (8.5-10.1) mg/dl Medications Administered Current Inpatient Medications Aspirin (Aspirin 81 Mg Ectab) 81 mg PO DAILY [facility] Stop: 12/14/20 08:59 Last Admin: 11/15/20 09:22 Dose: Not Given Documented by: Benzonatate (Benzonatate 100 Mg Capsule) 100 mg PO TID PRN PRN Reason: cough Stop: 12/14/20 06:10 Citalopram Hydrobromide (Citalopram 40 Mg Tab) 40 mg PO [facility] Stop: 12/14/20 08:59 Last Admin: 11/15/20 12:07 Dose: 40 mg Documented by: Diazepam (Diazepam 5 Mg Tablet) 5 mg PO BID PRN PRN Reason: back spasms Stop: 12/15/20 17:55 Diclofenac Sodium (Diclofenac Sod 1% Gel 100 Gm Tube) 2 gm EXT QID [facility] Stop: 12/15/20 12:59 Last Admin: 11/15/20 20:22 Dose: Not Given Documented by: Enoxaparin Sodium (Enoxaparin Inj 30 Mg/0.3 Ml Syr) 30 mg SQ Q24H [facility] Stop: 12/14/20 07:59 Last Admin: 11/15/20 09:20 Dose: 30 mg Documented by: Fluconazole (Fluconazole 200 Mg/5 Ml Udp) 200 mg PO [facility]; Protocol Stop: 11/25/20 10:44 Last Admin: 11/15/20 12:00 Dose: 200 mg Documented by: Folic Acid (Folic Acid 1 Mg Tab) 1 mg PO QAM [facility] Stop: 12/14/20 08:59 Last Admin: 11/15/20 12:07 Dose: 1 mg Documented by: Heparin Sodium (Porcine) (Heparin 100 Unit/Ml 5ml Flush) 5 ml FLUSH PRN PRN PRN Reason: Flush Stop: 12/15/20 01:23 Last Admin: 11/15/20 22:46 Dose: 5 ml Documented by: Piperacillin Sod/Tazobactam (Sod 3.375 gm/ Dextrose) 115 mls @ 28.75 mls/hr IV Q8H [facility]; Protocol Stop: 11/24/20 09:59 Last Admin: 11/16/20 02:29 Dose: 28.8 mls/hr Documented by: Levothyroxine Sodium (Levothyroxine Sodium 100 Mcg Tablet) 100 mcg PO DAILYBB [facility] Stop: 12/14/20 06:44 Last Admin: 11/16/20 05:25 Dose: 100 mcg Documented by: Lorazepam (Lorazepam 0.5 Mg Tab) 0.5 mg PO Q12H PRN PRN Reason: anxiety Stop: 12/14/20 06:10 Magnesium Oxide (Magnesium Oxide 400 Mg Tab) 400 mg PO BID [facility] Stop: 12/14/20 08:59 Last Admin: 11/15/20 20:22 Dose: 400 mg Documented by: Miscellaneous Information (Piperacill/Tazobac Consult Active) 1 ea N/A UD PRN PRN Reason: Consult Stop: 12/14/20 06:10 Morphine Sulfate (Morphine Sulfate 2 Mg/Ml Carp) 1 mg IV Q2H PRN PRN Reason: Pain Stop: 11/28/20 06:10 Last Admin: 11/15/20 20:18 Dose: 1 mg Documented by: Ondansetron HCl (Ondansetron Inj 2 Mg/Ml 2 Ml Vial) 4 mg IV Q6H PRN PRN Reason: Nausea Stop: 12/14/20 06:10 Oxycodone HCl (Oxycodone Hcl Ir 5 Mg Tab (Immediate Release)) 5 mg PO Q6H PRN PRN Reason: Pain Stop: 11/28/20 06:34 Last Admin: 11/15/20 20:57 Dose: 5 mg Documented by: Pantoprazole Sodium (Pantoprazole 40 Mg Tab) [facility] [place]: 12/14/20 08:59 Last Admin: 11/15/20 12:06 Dose: 40 mg Documented by: Prochlorperazine (Prochlorperazine Maleate 5 Mg Tab) 5 mg PO TID PRN PRN Reason: Nausea And Vomiting Stop: 12/14/20 06:10 Resident Activity Tracking Resident Involvement: Resident Care Provided Care Provided: Adult Hospital Medicine
[2020-11-16] MEDS: PANTOprazole 40 MG TAB PO SCH (10:14)
[2020-11-16] MEDS: ASPIRIN 81 MG ECTAB PO SCH (10:15)
[2020-11-16] MEDS: MAGNESIUM OXIDE 400 MG TAB PO SCH ×2 (10:16→21:01)
[2020-11-16] MEDS: CITALOPRAM 40 MG TAB PO SCH (10:16)
[2020-11-16] MEDS: DICLOFENAC SOD 1% GEL 100 GM TUBE EXT SCH ×4 (10:16→21:01)
[2020-11-16] MEDS: FOLIC ACID 1 MG TAB PO SCH (10:16)
[2020-11-16] MEDS: ENOXAPARIN INJ 30 MG/0.3 ML SYR SQ SCH ×2 (10:17→10:23)
[2020-11-16] MEDS: oxyCODONE HCL IR 5 MG TAB (IMMEDIATE RELEASE) PO PRN ×2 (10:22→16:27)
--- NOTE | 2020-11-16 12:54 | Billing Data ---
Date of Service November 16, 2020 Coding Level of Care Code 05773 Initial Inpt Care Lvl 3
[2020-11-16] MEDS: diazePAM 5 MG TABLET PO PRN (21:01)
[2020-11-16] MEDS: HEPARIN 100 UNIT/ML 5ML FLUSH FLUSH PRN (21:42)
[2020-11-17] MEDS: PIPERACILLIN/TAZOBACTAM 3.375 GM in DEXTROSE 5% 100 ML IV SCH ×2 (02:00→09:34)
[2020-11-17] MEDS: oxyCODONE HCL IR 5 MG TAB (IMMEDIATE RELEASE) PO PRN (02:52)
[2020-11-17] MEDS: HEPARIN 100 UNIT/ML 5ML FLUSH FLUSH PRN ×2 (05:03→13:46)
[2020-11-17] MEDS: diazePAM 5 MG TABLET PO PRN ×2 (05:29→13:52)
[2020-11-17] MEDS: LEVOTHYROXINE SODIUM 100 MCG TABLET PO SCH (05:34)
[2020-11-17 05:52] LABS: Basophils # (auto) 0.02 K/uL (0-0.2); Basophils % (auto) 0.2 %; Eosinophils # (auto) 0.32 K/uL (0-0.5); Eosinophils % (auto) 2.7 %; Hematocrit (blood only) 35.1 % (37-47); Hemoglobin 11.3 g/dL (12.0-16.0); Immature Granulocytes # (auto) 0.03 K/uL (0.00-0.02); Immature Granulocytes % (auto) 0.3 %; Lymphocytes # (auto) 0.91 K/uL (1.2-3.4); Lymphocytes % (auto) 7.6 %; Mean Corpuscular Hemoglobin 29.6 pg (25-34); Mean Corpuscular Hgb Conc 32.2 g/dL (32-36); Mean Corpuscular Volume 91.9 fL (80-100); Mean Platelet Volume 8.6 fL (7.4-10.4); Monocytes # (auto) 0.95 K/uL (0.11-0.59); Neutrophils # (auto) 9.69 K/uL (1.4-6.5); Neutrophils % (auto) 81.2 %; Platelet Count 225 K/uL (130-400); RDW Standard Deviation 60.5 fL (36.4-46.3); Red Blood Count 3.82 M/uL (4.2-5.4); White Blood Count 11.92 K/uL (4.8-10.8)
[2020-11-17 06:23] LABS: BUN Creatinine Ratio 16.6 (10-20); Calcium 8.6 mg/dl (8.5-10.1); Creatinine Clr Calc Pharmacy 43.4 ml/min; Est GFR (African American) 77.2; Est GFR (Non-African American) 66.6; Potassium 3.4 mmol/L (3.5-5.1)
--- NOTE | 2020-11-17 06:56 | Surgery Progress Note ---
Date of Service November 17, 2020 Assessment & Plan (1) Small bowel obstruction: At this point the patient is on a diet I have no intentions of operating on this patient now or in the future since the patient has a hostile abdomen Apparently she was told that there was a surgeon in [place] that wanted to operate on her and fix the fistula etc. at this point if she wants to consider that further she should be transferred there or be evaluated there as an outpatient If she tolerates a diet and pain free colostomy is working he can be discharged Present on Admission?: Yes Admission and Anticipated Discharge Date Admission Date: November 14, 2020 Subjective Feels fine no nausea colostomy bag is working main discomfort she has is her back Physical Exam Physical Exam: Resting comfortable in bed The abdomen softer still has drainage from suprapubic a fistulous track colostomy bag with some contents Results & Data ([facility]) Vital Signs (Past 12 Hours) Vital Signs Temp Pulse Pulse Resp BP BP Pulse Ox 11/17/20 03:00 36.9 C 88 20 123/66 93 11/17/20 02:14 81 11/16/20 23:00 36.7 C 81 20 119/67 91 11/16/20 20:21 36.6 C 72 18 115/70 92 PG Care Time/CCT Total # of Minutes Spent Total Time Spent with Patient: Total time spent is greater than 50% in coordination of care (as documented) at patient's floor/unit and/or counseling patient: Coding Level of Care Code 08145 Subseq Hosp Care Lvl 3 Diagnoses Small bowel obstruction K56.609
[2020-11-17] MEDS: MAGNESIUM OXIDE 400 MG TAB PO SCH (08:51)
[2020-11-17] MEDS: PANTOprazole 40 MG TAB PO SCH (08:51)
[2020-11-17] MEDS: ASPIRIN 81 MG ECTAB PO SCH (08:51)
[2020-11-17] MEDS: FLUCONAZOLE 200 MG/5 ML UDP PO SCH (08:51)
[2020-11-17] MEDS: CITALOPRAM 40 MG TAB PO SCH (08:51)
[2020-11-17] MEDS: DICLOFENAC SOD 1% GEL 100 GM TUBE EXT SCH ×2 (08:51→13:44)
[2020-11-17] MEDS: ENOXAPARIN INJ 30 MG/0.3 ML SYR SQ SCH ×2 (08:52→09:00)
[2020-11-17] MEDS: FOLIC ACID 1 MG TAB PO SCH (08:52)
[2020-11-17] MEDS: POTASSIUM CHLORIDE CRTAB 20 MEQ TABCR PO SCH ×3 (09:34→13:43)
--- NOTE | 2020-11-17 10:15 | Discharge Summary ---
Date of Service November 17, 2020 Admission HPI Per Admitting Provider Aydee Burgos is a 80yo female with metastatic adenocarcinoma of the lung, prior SBO s/p colostomy placement, pelvic abscesses and longstanding cutaneous fistula. She presents today with one day of nausea with multiple episodes of non-bloody/non-bilious vomiting, abdominal pain and distention that started acutely yesterday. She states colostomy output has been fine - no diarrhea. She has had chills but denies fevers, chest pain, cough, SOB. No additional complaints at this time. ER Course: Vancomycin, Zosyn, NSS, Dilaudid, Fentanyl Admission Exam Per Admitting Provider General: cachectic, frail, chronically ill in appearance Skin: warm, dry, no rashes or lesions HEENT: NC/AT, PERRL, EOMI, anicteric sclera, conjunctiva without injection, external ear normal to inspection and nontender, nares patent, dry mucus membranes, dentition intact, no oropharyngeal lesions, neck supple, trachea midline, no LAD, no thyromegaly, no JVD Heart: +S1/S2, regular, no m/r/g, left chest port in place, nontender Lungs: equal air entry bilaterally, no rales/rhonchi/wheezes Abd: diminished bowel sounds, soft, diffusely tender with voluntary guarding, colostomy in LLQ with stool present, parastomal hernia noted on imaging, cutaneous fistula in RLQ with copious purulent drainage Ext: warm, 2+ pulses in UE/LE bilaterally, no clubbing/cyanosis or edema Neuro: nonfocal, patient AA&O x 4, speech intact, no facial droop, moving all extremities on command with equal strength 5/5 Principal Diagnosis Small bowel obstruction complicated in the setting of a parastomal colostomy complicated by cutaneous fistula previous cultures demonstrating Pseudomonas and MSSA, metastatic adenocarcinoma of the lung, CKD stage III Discharge Exam General: Lying in bed with NG tube in place HEENT: Normocephalic atraumatic Neck: Normal to visual inspection Cardiac: Regular rate and rhythm I did not appreciate significant murmurs rubs or gallops, normal S1, normal S2, negative pedal edema, negative calf tenderness Respiratory: Clear to auscultation bilaterally with symmetrical chest expansion I did not appreciate any significant wheezes, rales, rhonchi, no increased work of breathing GI: Soft, nontender, nondistended, ostomy clean dry and intact, no signs of pus or infection MSK: Moves all extremities Neuro: Alert and oriented x4 Psych: Calm and cooperative with the interview Discharge Data Allergies Allergy/AdvReac Type Severity Reaction Status Date / Time nickel Allergy Intermediate Rash Verified 11/14/20 03:26 venlafaxine AdvReac Intermediate Hypertensio Verified 11/14/20 03:26 n,Headache clarithromycin AdvReac Mild Nausea/Vomi Verified 11/14/20 03:26 ting codeine AdvReac Mild UPSET Verified 11/14/20 03:26 STOMACH hydrocodone AdvReac Mild Nausea/Vomi Verified 11/14/20 03:26 ting metronidazole [From Flagyl] AdvReac Mild Gastrointestinal Verified 11/14/20 03:26 Upset Consultations 11/14/20 06:11 Consult General Surgery Routine Ordered Studies 11/14/20 02:59 CT abd pelvis wo con Urgent Hospital Course (1) Small bowel obstruction: Aydee is a very pleasant 80-year-old female with a notable past medical history of metastatic adenocarcinoma of the lung, prior small bowel obstruction status post colostomy placement, and chronic pelvic abscesses seen on CT (s/p abdominal washout 10/2019), and longstanding cutaneous fistulas who presented to [facility] on November 13 for evaluation of one day of abdominal pain, nausea, and vomiting, subsequently found to have evidence of a small bowel obstruction on her CT-Abd/Pelvis. She is currently undergoing NG decompression and is being followed by surgery. No urgent surgical intervention required at this time. Patient is hemodynamically stable. #Small Bowel Obstruction Pt is s/p sigmoid colectomy and end ostomy placement in 10/2019 at [facility] [place] [facility]. SBO in January 2020 treated here with good resolution, not requiring surgical intervention. 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 KUB on 11/15 redemonstrated small bowel obstruction, ostomy has good output, patient reports feeling improvement. General surgery was consulted recommending medical management. 11/16 experience decreased ostomy output and increasing pain, was monitored with supportive care overnight and improved by 11/17. On 11/17 she reported she was pain-free, tolerating her diet, her ostomy output and free from the symptoms from which she presented Advance diet slowly as tolerated, focus on low fiber soft foods -To consider follow-up with outpatient surgeons at [place] #Cutaneous fistula - with previous cultures demonstrating Pseudomonas growth and MSSA in 08/2020-10/2020 Patient has a longstanding history of this cutaneous fistula with purulent drainage recently prescribed cefepime. Ostomy and wound care provided care during her hospitalization Blood cultures NGTD -Continue/complete previously prescribed cefepime regimen on discharge #Metastatic adenocarcinoma of the lung Patient follows with oncology in the outpatient setting (Dr. Sweeney) Continue outpatient follow-up following discharge #GERD Chronic, stable Continued Protonix #CKD stage III Daily BMPs were excessive #Chronic hypothyroidism Continued levothyroxine #Major depressive disorder Social support while here Continued home Celexa #DVT prophylaxis Given patient's current active cancer, multiple medical comorbidities outpatient provider to consider risk versus benefit of chronic anticoagulation to prophylax against thromboembolism. FENa:Low Fiber Diet advance as tolerated Code Status:Full code DVT PPX:Lovenox DC'd on discharge PT/OT:Not indicated at present Dispo:home Abiodun Hollis MD PGY 2, FCM This chart was completed utilizing be2 voice recognition software. Grammatical errors, random word insertions, pronoun errors, and in complete sentences are an occasional consequence of the system. Any questions or concerns about the content, text, or information contained within the body of this dictation should be addressed directly to the physician for clarification Total Time Total Time Spent Total Time Spent (In Minutes): <30 Discharge Plan Discharge Items Patient Disposition: Home - Self-Care Reason For Visit: SBO, NAUSEA/VOMITING Discharge Diagnosis: Small bowel obstruction complicated in the setting of a parastomal colostomy complicated by cutaneous fistula previous cultures demonstrating Pseudomonas and MSSA, metastatic adenocarcinoma of the lung, CKD stage III Activity: Resume your previous activity Non-emergency contact: Primary Care Provider and Oncologist Call non-emergency contact if: you have any medication questions and your temperature is above 101.5 Follow-up/Referrals: Zion Bartholomew MD [Primary Care Provider] - 11/23/20 3:45 pm Diet: Low Fiber Addtl Attending Provider Instructions: Care instructions: You were admitted to [facility] for treatment of small bowel obstruction. Patient presented with recent history of lower abdominal pain and poor ostomy output subsequently diagnosed with a small bowel obstruction. This consulted recommending with NG tube decompression and IV antibiotics. The patient improved overnight and NG decompression was discontinued. The following evening the patient experienced another episode of poor ostomy output, she was monitored for a day, with improvement in her symptoms. On the day of discharge she reported being pain-free from an abdominal standpoint, having adequate ostomy output, tolerating her diet, and no longer experiencing the symptoms for which she presented. -Please continue previously prescribed cefepime regimen on discharge -Please use caution while advancing her diet, as starting a soft low fiber foods and slowly advancing as tolerated. A discharge summary will be sent to your primary care physician to ensure continuity of care. Please bring this discharge summary with you to your next office appointment so that your provider can review it at that time. Follow-up appointments: - Keep all your follow-up appointments as already scheduled. If you cannot make an appointment, notify your provider. - Please call to request a follow-up appointment with your primary care physician within one week of discharge. Please let us know if you are unable to obtain an appointment Follow-up labs: - Please go to a lab nearest you and obtain the requested lab work. Please have this completed at least 3 hours before your doctor's appointment (or the day before your appointment if possible). Medications: - Your medication list has been reviewed and reconciled upon discharge to ensure accuracy and continuity of care. - You are provided with a list of all your current medications at this time. Please review this list closely and make note of any changes. - Please take all of your medications exactly as prescribed. - Tell your primary care provider if you cannot afford your medications. - Call your primary care provider if you are having any side effects or any other problems. - Call your primary care provider before taking any over the counter medications or supplements, including herbals and vitamins, because some of these may interact with your current medications and/or make your symptoms worse. Symptoms: Please call your primary care provider for symptoms including, but not limited to: fevers (temperatures greater than 100.4), chills, intractable nausea or vomiting, diarrhea, rash, shortness of breath, bleeding, pain, or if you experience any worsening of the symptoms that brought you to the hospital. For EMERGENCY and VERY SERIOUS health-related issues, such as chest pain, shortness of breath, or sudden onset of the symptoms that brought you to the hospital, you may need to call 911 or go directly to the Emergency Room It has been our privilege to take care of you during your hospital stay. And Above All Else Feel Better! Best Wishes, Abiodun Hollis MD PGY2 Resident, Family & Community Medicine [facility] FCM Residency at [facility] - [address], [address] MC: [address], [place] [address] Pending Studies at Discharge: No Stand-Alone Forms: My [facility], Smoking Cessation Medications and DC Order Prescriptions: Continued citalopram [Celexa] 40 mg tablet 40 mg PO QAM Qty: 90 RF: 3 oxycodone 5 mg tablet 5 mg PO Q6H PRN (Reason: Pain) Qty: 120 RF: 0 levothyroxine [Synthroid] 100 mcg tablet 100 mcg PO QAM Qty: 90 RF: 3 lorazepam 0.5 mg tablet 0.5 mg PO Q12H PRN (Reason: anxiety) Qty: 60 RF: 0 pantoprazole [Protonix] 40 mg tablet,delayed release (DR/EC) 40 mg PO QAM Qty: 90 RF: 3 cefepime in dextrose 5 % 2 gram/50 mL piggyback 2 g IV Q12H 10 Days Qty: 20 RF: 0 benzonatate [Tessalon Perles] 100 mg capsule 100 mg PO TID PRN (Reason: cough) Qty: 60 RF: 0 folic acid 1 mg tablet 1 mg PO QAM RF: 0 aspirin 81 mg Tablet,Delayed Release (Dr/Ec) 81 mg PO DAILY RF: 0 fluconazole [Diflucan] 200 mg tablet 200 mg PO Q72H PRN (Reason: thrush) Qty: 5 RF: 0 magnesium oxide 400 mg (241.3 mg magnesium) tablet 400 mg PO BID Qty: 20 RF: 0 prochlorperazine maleate [Compazine] 5 mg tablet 5 mg PO TID PRN (Reason: Nausea And Vomiting) RF: 0 Discharge Orders: Discharge Order (Routine); Ordered 11/17/20 Ordered By: Abiodun Hollis Admission Data Admit Date/Time: 11/14/20 04:52 Attending Provider: Armani Domínguez Admit Provider: Emily Hollis Primary Care Provider: Zion Bartholomew Other Providers: Justin Patel ; Emily Hollis ; Laly Chinchilla ; [place] Other Interventions: Discharge Summary Assessment (RN) Last Done: 11/17/20 11:39 Supervising Physician Co-Signing Physician Notes I personally examined the patient and verified all thorpe points of history and exam, discussed case, and agree with decision making with Dr Hollis. Feeling better eating okay and ostomy having throughput. No significant abdominal pain. Vitals noted, in general she is awake and alert pleasant no distress. HEENT normocephalic atraumatic mucous membranes moist. Abdomen soft not really any significant tenderness around stoma. no guarding no rebound. Small bowel obstructionseems to be hernia related. Definitely improved. Safe to go home. We discussed the risks and benefits of surgical evaluation at [facility] versus ongoing watchful waiting and management of her bowel obstructions conservatively when they occur. Back painappears to have been biomechanical. Seems to have improvedno complaints of this for several days. Otherwise as above, stable for home Resident Activity Tracking Resident Involvement: Resident Care Provided Care Provided: Adult Hospital Medicine
--- NOTE | 2020-11-17 12:51 | Billing Data ---
Date of Service November 17, 2020 Coding Level of Care Code D/C Day Management <30 mins
== END 2020-11-17 14:01 | disposition home or self-care (01) ==
LOC: ED 02:51 → 2N 04:52 → SUATTDRO 04:52 → INTOOBSV 04:52 → 2N 05:57

== ENCOUNTER 2020-12-24 13:21 | Observation (INO) ==
[2020-12-24] MEDS ORDERED: ONDANSETRON INJ 2 MG/ML 2 ML VIAL ONE (14:49)
[2020-12-24 14:59] LABS: Basophils # (auto) 0.03 K/uL (0-0.2); Basophils % (auto) 0.2 %; Eosinophils # (auto) 0.16 K/uL (0-0.5); Eosinophils % (auto) 1.2 %; Hematocrit (blood only) 32.6 % (37-47); Hemoglobin 10.2 g/dL (12.0-16.0); Immature Granulocytes % (auto) 1.5 %; Lymphocytes # (auto) 0.76 K/uL (1.2-3.4); Lymphocytes % (auto) 5.7 %; Mean Corpuscular Hgb Conc 31.3 g/dL (32-36); Mean Corpuscular Volume 95.9 fL (80-100); Mean Platelet Volume 8.5 fL (7.4-10.4); Monocytes # (auto) 1.23 K/uL (0.11-0.59); Monocytes % (auto) 9.2 %; Neutrophils # (auto) 10.98 K/uL (1.4-6.5); Neutrophils % (auto) 82.2 %; Platelet Count 175 K/uL (130-400); RDW Coefficient of Variation 18.7 % (11.5-14.5); RDW Standard Deviation 65.2 fL (36.4-46.3); White Blood Count 13.36 K/uL (4.8-10.8)
[2020-12-24 15:18] LABS: Albumin Level 1.8 gm/dl (3.4-5.0); BUN Creatinine Ratio 33.6 (10-20); Calcium 6.4 mg/dl (8.5-10.1); Creatinine Clr Calc Pharmacy 93.5 ml/min; Est GFR (African American) 114.7; Potassium 2.7 mmol/L (3.5-5.1)
[2020-12-24 15:21] LABS: Albumin Globulin Ratio 0.7 (0.9-2); Bilirubin,Total 0.3 mg/dl (0.2-1); Globulin 2.7 gm/dl (2.5-4.0); Total Protein 4.5 gm/dl (6.4-8.2)
[2020-12-24] MEDS ORDERED: MoRPHine SULFATE 4 MG/ML 1 ML CARP\\VIAL IV STA (15:52)
--- NOTE | 2020-12-24 15:52 | Emergency Department Note ---
History of Present Illness General Chief complaint: Dehydration Stated complaint: DEHYDRATED/LOWER LEFT SIDE PAIN Time Seen by Provider: 12/24/20 15:35 Source: patient History of Present Illness Provider complaint: Left lower abdominal pain Onset (ago): year(s) Location: abdomen and left Radiation: non-radiation Pain Consistency: + intermittent Maximum Pain Intensity: 8 Quality: + other (Unable to describe) Relieved By: + none Associated symptoms: + headaches, + nausea/vomiting (Nausea no vomiting) and + shortness of breath (Chronic shortness of breath from COPD/lung cancer); no chest pain, no cough and no fever/chills This is a 80-year-old female with metastatic lung cancer presenting with left lower quadrant abdominal pain. Patient states that she has had pain in that area for over a year and a half. The patient had metastases to her pelvic bone and underwent radiation treatment. She had suffered a radiation injury to her colon and had to have partial colectomy with colostomy. 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 She has had pain in that area for a year and a half but she states the pain is worse over the past 2 days. She denies any associated diarrhea or bloody output from her colostomy. She states the colostomy output is about the same as it usually is. She has some nausea without vomiting. She cannot describe the type of pain. She states it is not cramping or aching or sharp. She also states that she felt short of breath this morning but she has chronic shortness of breath and is on as needed oxygen. She does have a history of COPD and lung cancer. She also states that feels uncomfortable when she urinates. She denies any cough or cold symptoms or chest pain. Home Medications Medication Instructions Recorded Confirmed Type folic acid 1 mg PO QAM 08/04/19 12/24/20 History citalopram 40 mg tablet 40 mg PO QAM #90 tab 01/09/20 12/24/20 Rx magnesium oxide 400 mg PO BID #20 tab 02/29/20 12/24/20 Rx prochlorperazine maleate 5 mg PO TID PRN 03/12/20 12/24/20 History [Compazine] aspirin 81 mg PO DAILY 08/09/20 12/24/20 History fluconazole [Diflucan] 200 mg PO Q72H PRN #5 tab 08/09/20 12/24/20 Rx benzonatate 100 mg capsule 100 mg PO TID PRN #60 cap 09/01/20 12/24/20 Rx levothyroxine 100 mcg tablet 100 mcg PO QAM #90 tab 09/03/20 12/24/20 Rx pantoprazole 40 mg tablet,delayed 40 mg PO QAM #90 tab 11/05/20 12/24/20 Rx release lorazepam 0.5 mg tablet 0.5 mg PO Q12H PRN #60 tab 11/25/20 12/24/20 Rx oxycodone 5 mg tablet 5 mg PO Q6H PRN #120 tab 11/25/20 12/24/20 Rx diazepam 5 mg tablet See Rx Instructions PO .COMPLEX 11/26/20 12/24/20 Rx PRN #20 tab cefepime 2 gram/50 mL in dextrose 2 g IV Q12H 10 Days #20 ea 12/20/20 12/24/20 Rx 5 % intravenous piggyback prednisone 10 mg PO DAILY 12/24/20 12/24/20 History Allergies Allergy/AdvReac Type Severity Reaction Status Date / Time nickel Allergy Intermediate Rash Verified 12/24/20 15:29 venlafaxine AdvReac Intermediate Hypertensio Verified 12/24/20 15:29 n,Headache clarithromycin AdvReac Mild Nausea/Vomi Verified 12/24/20 15:29 ting codeine AdvReac Mild UPSET Verified 12/24/20 15:29 STOMACH hydrocodone AdvReac Mild Nausea/Vomi Verified 12/24/20 15:29 ting metronidazole [From Flagyl] AdvReac Mild Gastrointestinal Verified 12/24/20 15: 29 Upset Past Med/Surg History Medical History (Updated 12/24/20 @ 21:37 by Pollo Ely MD) Adenocarcinoma, lung Adrenal cortical adenoma Anasarca Anxiety Arthritis Biceps tendonitis Cataract COVID-19 virus antibody negative Depression Esophageal dyskinesia Essential hypertriglyceridemia Fatigue Gastritis Gastroesophageal reflux disease History of bronchitis History of diverticulitis Hyperlipidemia Hypomagnesemia Hypothyroidism Intermittent hydrarthrosis of elbow Irritable bowel syndrome Lung cancer NEW DX Metastatic bone cancer radiation treatments completed 08/25/19. Olecranon bursitis Osteoarthritis Osteopenia Pneumonia hx SBO (small bowel obstruction) Sialoadenitis Small bowel obstruction Surgical History History of cataract surgery RT/LEFT History of colonoscopy Dr. Veronica 12/2011 History of dilatation and curettage History of discectomy CERVICAL (GOOD ROM) History of repair of rotator cuff RT History of tooth extraction S/P section X 1 S/P hip replacement left. 07/02/2019. SAB with MAC. no issues. Family History Family/Other Family history of diabetes mellitus Brother Family hx of colon cancer Mother , age 66 Diabetes Cancer ovarian Coronary heart disease had acute NM which led to her Sister Cancer Family/Other Breast cancer Father , age 49 Suicide Alcoholism Social History Smoking Status: Current every day smoker Tobacco Type: Cigarettes Age Started Using Tobacco: 21; packs per day: 0.5; Cigarettes Per Day: 5; Second Hand Exposure: No; Hx Alcohol Use: No Hx Substance Use: No Preferred Language: Persian Communication Ability: Effective Visual Impairment: No Limitations Hearing Ability: Normal 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 and A total of 10 systems reviewed and were otherwise negative Physical Exam Vital Signs Vital Signs - 24 hr 12/24/20 13:36 12/24/20 14:52 12/24/20 15:14 Temperature 36.2 C L Temperature Source Skin Pulse Rate 96 H 83 Pulse Rate [Left Finger] 88 Pulse Rate from SpO2 Sensor 83 Respiratory Rate 18 22 15 Respiratory Effort / Characteristics Non-Labored Spontaneous Respiratory Depth Normal Blood Pressure 109/68 Blood Pressure [Left Arm] 99/58 L Blood Pressure Mean 81 Blood Pressure Mean [Left Arm] 71 Blood Pressure Position Sitting Blood Pressure Position [Left Arm] Sitting Pulse Oximetry 92 98 91 Oxygen Delivery Method Room Air Room Air Oxygen Flow Rate Sepsis Recent Fever Within 48 Hours No Sepsis New/Unexplained Change in Mental Status N/A Sepsis Action Taken by Nursing No Action Required 12/24/20 15:30 12/24/20 16:00 12/24/20 16:17 Temperature Temperature Source Pulse Rate 79 81 79 Pulse Rate [Left Finger] Pulse Rate from SpO2 Sensor 81 81 79 Respiratory Rate 15 18 21 Respiratory Effort / Characteristics Respiratory Depth Blood Pressure 134/72 Blood Pressure [Left Arm] Blood Pressure Mean 92 Blood Pressure Mean [Left Arm] Blood Pressure Position Blood Pressure Position [Left Arm] Pulse Oximetry 92 92 93 Oxygen Delivery Method Oxygen Flow Rate Sepsis Recent Fever Within 48 Hours Sepsis New/Unexplained Change in Mental Status Sepsis Action Taken by Nursing 12/24/20 16:30 12/24/20 16:31 12/24/20 16:39 Temperature Temperature Source Pulse Rate 78 79 Pulse Rate [Left Finger] Pulse Rate from SpO2 Sensor 78 77 Respiratory Rate 17 14 Respiratory Effort / Characteristics Respiratory Depth Blood Pressure 102/62 Blood Pressure [Left Arm] Blood Pressure Mean 75 Blood Pressure Mean [Left Arm] Blood Pressure Position Blood Pressure Position [Left Arm] Pulse Oximetry 94 Oxygen Delivery Method Oxygen Flow Rate Sepsis Recent Fever Within 48 Hours Sepsis New/Unexplained Change in Mental Status Sepsis Action Taken by Nursing 12/24/20 17:00 12/24/20 17:01 12/24/20 17:30 Temperature Temperature Source Pulse Rate 71 69 75 Pulse Rate [Left Finger] Pulse Rate from SpO2 Sensor 71 70 75 Respiratory Rate 17 16 20 Respiratory Effort / Characteristics Respiratory Depth Blood Pressure 123/56 L 107/56 L Blood Pressure [Left Arm] Blood Pressure Mean 78 73 Blood Pressure Mean [Left Arm] Blood Pressure Position Blood Pressure Position [Left Arm] Pulse Oximetry 95 94 92 Oxygen Delivery Method Oxygen Flow Rate Sepsis Recent Fever Within 48 Hours Sepsis New/Unexplained Change in Mental Status Sepsis Action Taken by Nursing 12/24/20 17:34 12/24/20 18:00 12/24/20 18:18 Temperature Temperature Source Pulse Rate 84 76 Pulse Rate [Left Finger] Pulse Rate from SpO2 Sensor 82 Respiratory Rate 24 19 Respiratory Effort / Characteristics Respiratory Depth Blood Pressure 107/56 L 115/56 L Blood Pressure [Left Arm] Blood Pressure Mean 73 75 Blood Pressure Mean [Left Arm] Blood Pressure Position Blood Pressure Position [Left Arm] Pulse Oximetry Oxygen Delivery Method Oxygen Flow Rate Sepsis Recent Fever Within 48 Hours Sepsis New/Unexplained Change in Mental Status Sepsis Action Taken by Nursing 12/24/20 18:19 12/24/20 18:30 12/24/20 18:31 Temperature Temperature Source Pulse Rate 73 74 76 Pulse Rate [Left Finger] Pulse Rate from SpO2 Sensor 75 75 76 Respiratory Rate 20 20 20 Respiratory Effort / Characteristics Respiratory Depth Blood Pressure 112/58 L 111/53 L Blood Pressure [Left Arm] Blood Pressure Mean 76 72 Blood Pressure Mean [Left Arm] Blood Pressure Position Blood Pressure Position [Left Arm] Pulse Oximetry 94 90 90 Oxygen Delivery Method Oxygen Flow Rate Sepsis Recent Fever Within 48 Hours Sepsis New/Unexplained Change in Mental Status Sepsis Action Taken by Nursing 12/24/20 19:00 12/24/20 20:30 12/24/20 21:00 Temperature Temperature Source Pulse Rate 78 73 71 Pulse Rate [Left Finger] Pulse Rate from SpO2 Sensor Respiratory Rate 20 16 20 Respiratory Effort / Characteristics Respiratory Depth Blood Pressure 107/58 L 112/50 L 106/63 Blood Pressure [Left Arm] Blood Pressure Mean 74 70 77 Blood Pressure Mean [Left Arm] Blood Pressure Position Blood Pressure Position [Left Arm] Pulse Oximetry 91 92 97 Oxygen Delivery Method Room Air Nasal Cannula Oxygen Flow Rate 2 Sepsis Recent Fever Within 48 Hours Sepsis New/Unexplained Change in Mental Status Sepsis Action Taken by Nursing Constitutional: Vital signs reviewed. Eyes: Pupils are equal round reactive to light. Conjunctiva are noninjected. ENT: Pharynx is clear without erythema or exudate. Mucous membranes are dry. Neck supple without meningeal signs. Respiratory: Clear to auscultation bilaterally. Breath sounds are equal nas aterally. Cardiovascular: Regular rate and rhythm. No rubs or gallops. GI: Soft, nondistended with left mid abdominal tenderness. Colostomy with loose brown output without blood. Fistula in the infraumbilical region. No purulent drainage or surrounding erythema. No foul smell. Bowel sounds are present. Musculoskeletal: No peripheral edema. No lower extremity tenderness. Chronic venous stasis discoloration to both legs. Integumentary: No cyanosis. or jaundice. Neurological: The patient is awake and alert. No focal deficits. Psychiatric: Normal affect. Not anxious appearing. Course Administered Medications Sodium Chloride (Nss) 500 mls @ 125 mls/hr IV .Q4H JOSE E Stop: 01/23/21 15:59 Last Admin: 12/24/20 20:51 Dose: 125 mls/hr Documented by: [id number] Infusion: 12/24/20 20:43 Dose: 0 mls/hr Documented by: [id number] Admin: 12/24/20 16:43 Dose: 125 mls/hr Documented by: [id number] Discontinued Medications Potassium Chloride (K Jamie / Wtr) 10 meq in 100 mls @ 100 mls/hr IV Q1H JOSE E Stop: 12/24/20 17:59 Last Infusion: 12/24/20 20:18 Dose: 0 mls/hr Documented by: [id number] Admin: 12/24/20 19:18 Dose: 100 mls/hr Documented by: [id number] Infusion: 12/24/20 17:46 Dose: 0 mls/hr Documented by: [id number] Admin: 12/24/20 16:43 Dose: 100 mls/hr Documented by: [id number] Magnesium Sulfate/Dextrose (Magnesium Sulfate / D5w) 1 gm in 100 mls @ 100 mls/hr IV Q1H JOSE E Stop: 12/24/20 21:23 Last Admin: 12/24/20 20:52 Dose: 100 mls/hr Documented by: [id number] Infusion: 12/24/20 20:51 Dose: 0 mls/hr Documented by: [id number] Admin: 12/24/20 19:50 Dose: 100 mls/hr Documented by: [id number] Cefepime HCl (Maxipime) 2,000 mg in 20 mls @ 5 mls/min IV NOW STA; Protocol Stop: 12/24/20 19:26 Last Admin: 12/24/20 19:50 Dose: 5 mls/min Documented by: [id number] Ioversol (Ioversol 100ml) 93 ml IV ONCE ONE Stop: 12/24/20 18:11 Last Admin: 12/24/20 18:11 Dose: 93 ml Documented by: [id number] Morphine Sulfate (Morphine Sulfate 4 Mg/Ml 1 Ml Carp\Vial) 4 mg IV NOW STA Stop: 12/24/20 15:53 Last Admin: 12/24/20 16:43 Dose: 4 mg Documented by: [id number] Ondansetron HCl (Ondansetron Inj 2 Mg/Ml 2 Ml Vial) Confirm Administered Dose 4 mg .ROUTE .STK-MED ONE Stop: 12/24/20 14:50 Last Admin: 12/24/20 14:54 Dose: 4 mg Documented by: [id number] Critical Care Time Critical Care Time: Yes Total Critical Care Time: 40 I have personally spent approximately 40 minutes of critical care time in the direct management of this patient. This includes bedside care, interpretation of diagnostic studies, and testing, discussion with consultants, patient, and family members, and other required patient management activities. These minutes are in excess of all separately billable procedures. Medical Decision Making Differential Diagnosis Colitis, diverticulitis, adhesions, partial bowel obstruction, UTI, fistula Medical Records Attestation: I reviewed the patient's medical records. I did perform a limited focused review of portions of the patient's old chart on the electronic medical record. The patient was seen by her primary care provider several days ago and arrangements are being made for treatment of her fistula with outpatient antibiotics IV. Home Medications Current Medication List: was personally reviewed by me Laboratory Data Attestation: I reviewed the patient's lab results. Result diagrams: 12/24/20 14:46 12/24/20 14:46 Lab Results 12/24/20 12/24/20 12/24/20 Range/Units 14:46 14:46 17:44 WBC 13.36 H (4.8-10.8) K/uL RBC 3.40 L (4.2-5.4) M/uL Hgb 10.2 L (12.0-16.0) g/dL Hct 32.6 L (37-47) % MCV 95.9 (80-100) fL MCH 30.0 (25-34) pg MCHC 31.3 L (32-36) g/dL RDW Std Deviation 65.2 H (36.4-46.3) fL RDW Coeff of Raymundo 18.7 H (11.5-14.5) % Plt Count 175 (130-400) K/uL MPV 8.5 (7.4-10.4) fL Immature Gran % (Auto) 1.5 % Neut % (Auto) 82.2 % Lymph % (Auto) 5.7 % [place] % (Auto) 9.2 % Eos % (Auto) 1.2 % Baso % (Auto) 0.2 % Neut # (Auto) 10.98 H (1.4-6.5) K/uL Lymph # (Auto) 0.76 L (1.2-3.4) K/uL [place] # (Auto) 1.23 H (0.11-0.59) K/uL Eos # (Auto) 0.16 (0-0.5) K/uL Baso # (Auto) 0.03 (0-0.2) K/uL Immature Gran # (Auto) 0.20 H (0.00-0.02) K/uL Sodium 142 (136-145) mmol/L Potassium 2.7 L (3.5-5.1) mmol/L Chloride 114 H (98-107) mmol/L Carbon Dioxide 23 (21-32) mmol/L Anion Gap 4.0 (3-11) BUN 14 (7-18) mg/dl Creatinine 0.41 L (0.6-1.2) mg/dl Est Cr Clr Drug Dosing 93.5 ml/min Est GFR ( Amer) 114.7 Est GFR (Non-Af Amer) 99.0 BUN/Creatinine Ratio 33.6 H (10-20) Glucose 71 (70-99) mg/dl Calcium 6.4 L (8.5-10.1) mg/dl Magnesium 1.1 L (1.8-2.4) mg/dl Total Bilirubin 0.3 (0.2-1) mg/dl AST 7 L (15-37) U/L ALT 9 L (12-78) U/L Alkaline Phosphatase 68 (45-117) U/L Troponin I 0.086 H* (0-0.045) ng/ml Total Protein 4.5 L (6.4-8.2) gm/dl Albumin 1.8 L (3.4-5.0) gm/dl Globulin 2.7 (2.5-4.0) gm/dl Albumin/Globulin Ratio 0.7 L (0.9-2) Urine Color Yellow Urine Appearance Clear (Clear) Urine pH 5.5 (4.5-7.5) Ur Specific [place] 1.008 (1.000-1.030) Urine Protein Negative (Negative) Urine Glucose (UA) Negative (Negative) Urine Ketones Negative (Negative) Urine Blood Trace H (Negative) Urine Nitrite Negative (Negative) Urine Bilirubin Negative (Negative) Urine Urobilinogen Negative (Negative) Ur Leukocyte Esterase Negative (Negative) Urine WBC (Auto) 1-5 (0-5) /hpf Urine RBC (Auto) 0-4 (0-4) /hpf U Hyaline Cast (Auto) 1-5 (0-5) /lpf U Epithel Cells (Auto) 10-20 H (0-5) /lpf Urine Bacteria (Auto) Negative (Negative) COVID-19 Eval Order SARS-CoV-2 (PCR) (Negative) Influenza Type A (PCR) (Neg) Influenza Type B (PCR) (Neg) RSV (RT-PCR) (Neg) 12/24/20 12/24/20 Range/Units 20:12 20:12 WBC (4.8-10.8) K/uL RBC (4.2-5.4) M/uL Hgb (12.0-16.0) g/dL Hct (37-47) % MCV (80-100) fL MCH (25-34) pg MCHC (32-36) g/dL RDW Std Deviation (36.4-46.3) fL RDW Coeff of Raymundo (11.5-14.5) % Plt Count (130-400) K/uL MPV (7.4-10.4) fL Immature Gran % (Auto) % Neut % (Auto) % Lymph % (Auto) % [place] % (Auto) % Eos % (Auto) % Baso % (Auto) % Neut # (Auto) (1.4-6.5) K/uL Lymph # (Auto) (1.2-3.4) K/uL [place] # (Auto) (0.11-0.59) K/uL Eos # (Auto) (0-0.5) K/uL Baso # (Auto) (0-0.2) K/uL Immature Gran # (Auto) (0.00-0.02) K/uL Sodium (136-145) mmol/L Potassium (3.5-5.1) mmol/L Chloride (98-107) mmol/L Carbon Dioxide (21-32) mmol/L Anion Gap (3-11) BUN (7-18) mg/dl Creatinine (0.6-1.2) mg/dl Est Cr Clr Drug Dosing ml/min Est GFR ( Amer) Est GFR (Non-Af Amer) BUN/Creatinine Ratio (10-20) Glucose (70-99) mg/dl Calcium (8.5-10.1) mg/dl Magnesium (1.8-2.4) mg/dl Total Bilirubin (0.2-1) mg/dl AST (15-37) U/L ALT (12-78) U/L Alkaline Phosphatase (45-117) U/L Troponin I (0-0.045) ng/ml Total Protein (6.4-8.2) gm/dl Albumin (3.4-5.0) gm/dl Globulin (2.5-4.0) gm/dl Albumin/Globulin Ratio (0.9-2) Urine Color Urine Appearance (Clear) Urine pH (4.5-7.5) Ur Specific [place] (1.000-1.030) Urine Protein (Negative) Urine Glucose (UA) (Negative) Urine Ketones (Negative) Urine Blood (Negative) Urine Nitrite (Negative) Urine Bilirubin (Negative) Urine Urobilinogen (Negative) Ur Leukocyte Esterase (Negative) Urine WBC (Auto) (0-5) /hpf Urine RBC (Auto) (0-4) /hpf U Hyaline Cast (Auto) (0-5) /lpf U Epithel Cells (Auto) (0-5) /lpf Urine Bacteria (Auto) (Negative) COVID-19 Eval Order CovFluRsv at [facility] SARS-CoV-2 (PCR) NEGATIVE (Negative) Influenza Type A (PCR) Negative (Neg) Influenza Type B (PCR) Negative (Neg) RSV (RT-PCR) Negative (Neg) Imaging Data Radiologist's Impression: ABDOMEN AND PELVIS CT WITH IV AND ORAL CONTRAST CT DOSE: 425.92 mGycm HISTORY: Acute left lower quadrant abdominal pain LLQ pain h/o fistula/ractal mass/cyst TECHNIQUE: Multiaxial CT images of the abdomen and pelvis were performed following the IV administration of 93 cc of Optiray 320 and oral contrast. A dose lowering technique was utilized adhering to the principles of ALARA. COMPARISON STUDY: CT abdomen and pelvis 11/14/2020 and 03/30/2020, PET CT 07/28/2020 FINDINGS: Trace pericardial effusion. Coronary artery calcifications. No new pulmonary nodules identified. There is no pneumatosis or pneumoperitoneum identified. Spleen measures the upper limits of normal at 12.5 cm. Unremarkable pancreas and right adrenal gland. Unchanged 1.7 cm left adrenal gland nodule. Unremarkable gallbladder and liver. Patency of the hepatic and portal veins. Numerous cysts of the bilateral kidneys measure up to 1.9 cm on the right. Mild right and moderate left hydroureteronephrosis has progressed from comparison. The distal ureters are suboptimally visualized. No obstructing ureteral calculi identified. Mild bladder wall thickening. Suboptimal evaluation of the pelvis s econdary to artifact from the left hip total joint arthroplasty. Fibroid uterus is suggested. Calcified plaque the abdominal aorta. Left lower quadrant colostomy with parastomal hernia redemonstrated. Enteric fat and nonobstructed loops of small bowel. No bowel obstruction. There is chronic presacral soft tissue thickening and heterogeneous enhancement with chronic air and fluid-filled collections. There is a peripherally enhancing air and fluid- filled tract extending from the left hemipelvis towards the umbilicus measuring up to 1.8 cm transversely. There is additional peripherally enhancing fluid- filled tract within the right hemipelvis on image 269. Unremarkable soft tissues. Skeletal metastasis includes an sclerotic lesion of the left pubic bone on image 317 which demonstrates mildly increased sclerosis. IMPRESSION: 1. Left lower quadrant colostomy with moderate sized parastomal hernia containing mesenteric fat and nonobstructed small bowel. 2. No bowel obstruction or pneumoperitoneum. 3. Chronic presacral soft tissue thickening with chronic pelvic fluid collection suggestive of abscesses with right and left lower quadrant sinus tracts versus fistulas as above, largest of which extends towards the umbilicus compatible with a cutaneous fistula versus sinus tract. 4. Progressive bilateral hydroureteronephrosis, left greater than right is likely secondary to the aforementioned soft tissue thickening of the pelvis. 5. Skeletal metastasis redemonstrated. ACT 112: Negative or not required by law. The above report was generated using voice recognition software. It may contain grammatical, syntax or spelling errors. Electronically signed by: Thierno Brown M.D. 12/24/2020 6:58 PM Dictated: 12/24/201829 Transcribed: 12/24/201829 XR chest 1V portable HISTORY: 80 years-old Female sob acute shortness of breath COMPARISON: Chest radiograph 11/14/2020 TECHNIQUE: Portable AP view of the chest FINDINGS: Cardiomediastinal and hilar silhouettes are unchanged. Calcified plaque the thoracic aorta. Left subclavian Karajz-m-Fgwa catheter is unchanged. Emphysema with chronic interstitial coarsening. Right hemidiaphragmatic elevation with mild right lung base opacities. Surgical clips project over the neck. Degenerative changes of the shoulders and spine. IMPRESSION: 1. Mild right lung base opacities suggest atelectasis. Pneumonitis could appear similarly. 2. Emphysema with chronic interstitial coarsening. ACT 112: Negative or not required by law. The above report was generated using voice recognition software. It may contain grammatical, syntax or spelling errors. Electronically signed by: Thierno Brown M.D. 12/24/2020 9:29 PM Dictated: 12/24/202127 Transcribed: 12/24/202127 ECG Data Attestation: I personally reviewed and interpreted this ECG as follows: Indication: + SOB/dyspnea Rate (beats per minute): 73 Rhythm: + normal sinus ECG Concepcion: + Left axis deviation ECG ST segments: no ST elevation ECG Findings: no PVCs MDM Narrative I did evaluate the patient as noted above. The patient is presenting with chronic left lower abdominal pain which has been worsening over the past 2 weeks. She is tender on examination. She does have a fistula and she is on cefepime currently for this. She complains of some shortness of breath but this is chronic. IV access was established. I did place an order for continuous cardiac monitoring. The monitor showed normal sinus rhythm at a rate of 75 bpm. I did order and personally review the patient's 12-lead EKG as described above. She has no acute ischemic changes on twelve-lead EKG. I did order and personally reviewed the images of the patient's chest x-ray as described above. She appears to have some atelectasis and changes consistent with emphysema. I did order a urine analysis. She does not have an infection. I did order and review the patient's blood work as noted in the electronic medical record. Her white blood cell count is elevated at 13,000. She has hemoglobin of 10.2. Platelet count is within normal limits. Electrolytes demonstrate hypomagnesemia and hypokalemia. Her kidney function is preserved. Creatinine is 0.41. Troponin is slightly elevated 0.086. The patient denies having any chest discomfort. She does have chronic shortness of breath from COPD and lung ca ncer. I did order a CT of the abdomen and pelvis. I did review the images myself as well as the radiology report as described above. She has what appears to be chronic findings on her CT scan. She has chronic abscesses and fistula. She did have a CT of the chest as well as the abdomen and pelvis on December 10 at [facility]. CT of the chest shows pulmonary emphysema. CT of the abdomen showed a large multiloculated cystic and solid structure inseparable from the rectum measuring 9.1 x 12 cm not changed from prior exam. I did discuss the test results with the patient. She was treated with IV KCl as well as IV magnesium. She was also given IV morphine and Zofran for pain. She was given cefepime 2 g IV. I did discuss the case with the hospitalist and case packer. Covid screening is negative. Impression & Plan Intra-abdominal abscess, Hypomagnesemia, Anemia, Acute hypokalemia, Elevated troponin I level, Hypocalcemia, Lung cancer metastatic to bone, Abdominal wall fistula Discharge Plan Visit Data Chief Complaint: Dehydration Stated Complaint: DEHYDRATED/LOWER LEFT SIDE PAIN ED Provider: Pollo Ely Discharge Problem: Intra-abdominal abscess, Hypomagnesemia, Anemia, Acute hypokalemia, Elevated troponin I level, Hypocalcemia, Lung cancer metastatic to bone, Abdominal wall fistula Patient Disposition: Being Evaluated by Hospitalist Forms Stand Alone Forms: [facility] PayRange Prescriptions Prescriptions: No Action citalopram [Celexa] 40 mg tablet 40 mg PO QAM Qty: 90 RF: 3 levothyroxine [Synthroid] 100 mcg tablet 100 mcg PO QAM Qty: 90 RF: 3 pantoprazole [Protonix] 40 mg tablet,delayed release (DR/EC) 40 mg PO QAM Qty: 90 RF: 3 lorazepam 0.5 mg tablet 0.5 mg PO Q12H PRN (Reason: anxiety) Qty: 60 RF: 0 Hold Instructions: valium at night oxycodone 5 mg tablet 5 mg PO Q6H PRN (Reason: Pain) Qty: 120 RF: 0 benzonatate [Tessalon Perles] 100 mg capsule 100 mg PO TID PRN (Reason: cough) Qty: 60 RF: 0 cefepime in dextrose 5 % 2 gram/50 mL piggyback 2 g IV Q12H 10 Days Qty: 20 RF: 0 diazepam [Valium] 5 mg tablet See Rx Instructions PO .COMPLEX PRN (Reason: anxiety) Qty: 20 RF: 0 folic acid 1 mg tablet 1 mg PO QAM RF: 0 aspirin 81 mg Tablet,Delayed Release (Dr/Ec) 81 mg PO DAILY RF: 0 fluconazole [Diflucan] 200 mg tablet 200 mg PO Q72H PRN (Reason: thrush) Qty: 5 RF: 0 magnesium oxide 400 mg (241.3 mg magnesium) tablet 400 mg PO BID Qty: 20 RF: 0 prochlorperazine maleate [Compazine] 5 mg tablet 5 mg PO TID PRN (Reason: Nausea And Vomiting) RF: 0 prednisone 20 mg tablet 10 mg PO DAILY RF: 0 Referrals Referrals: Zion Bartholomew MD [Primary Care Provider] -
[2020-12-24 15:59] LABS: Magnesium 1.1 mg/dl (1.8-2.4)
[2020-12-24 16:16] LABS: Troponin I 0.086 ng/ml (0-0.045)
[2020-12-24] MEDS: SODIUM CHLORIDE 0.9% 500 ML IV SCH ×2 (16:43→20:51)
[2020-12-24] MEDS: POTASSIUM CHLORIDE / WTR 10 MEQ/100 ML PLCT IV SCH ×2 (16:43→19:18)
[2020-12-24 17:57] LABS: Appearance Urine Clear (Clear); Bacteria Urine Automated Negative (Negative); Bilirubin Urine Negative (Negative); Blood Urine Trace (Negative); Color Urine Yellow; Glucose Urine UA Negative (Negative); Ketones Urine Negative (Negative); Leukocyte Esterase Urine Negative (Negative); Nitrite Urine Negative (Negative); Protein Urine Negative (Negative); RBC Urine Automated 0-4 /hpf (0-4); Specific Gravity Urine 1.008 (1.000-1.030); Urobilinogen Urine Negative (Negative); pH Urine 5.5 (4.5-7.5)
[2020-12-24] MEDS ORDERED: OPTIRAY 320 100ml IV ONE (18:10)
--- NOTE | 2020-12-24 19:00 | CT Scan Report ---
ABDOMEN AND PELVIS CT WITH IV AND ORAL CONTRAST CT DOSE: 425.92 mGycm HISTORY: Acute left lower quadrant abdominal pain LLQ pain h/o fistula/ractal mass/cyst TECHNIQUE: Multiaxial CT images of the abdomen and pelvis were performed following the IV administrat ion of 93 cc of Optiray 320 and oral contrast. A dose lowering technique was utilized adhering to e principles of ALARA. COMPARISON STUDY: CT abdomen and pelvis 11/14/2020 and 03/30/2020, PET CT 07/28/2020 FINDINGS: Trace pericardial effusion. Coronary artery calcifications. No new pulmonary nodules identi fied. There is no pneumatosis or pneumoperitoneum identified. Spleen measures the upper limits of nor mal at 12.5 cm. Unremarkable pancreas and right adrenal gland. Unchanged 1.7 cm left adrenal gland no dule. Unremarkable gallbladder and liver. Patency of the hepatic and portal veins. Numerous cysts of the bilateral kidneys measure up to 1.9 cm on the right. Mild right and moderate le ft hydroureteronephrosis has progressed from comparison. The distal ureters are suboptimally visualiz ed. No obstructing ureteral calculi identified. Mild bladder wall thickening. Suboptimal evaluation o f the pelvis secondary to artifact from the left hip total joint arthroplasty. Fibroid uterus is sugg ested. Calcified plaque the abdominal aorta. Left lower quadrant colostomy with parastomal hernia redemonstrated. Enteric fat and nonobstructed lo ops of small bowel. No bowel obstruction. There is chronic presacral soft tissue thickening and heter ogeneous enhancement with chronic air and fluid-filled collections. There is a peripherally enhancing air and fluid-filled tract extending from the left hemipelvis towards the umbilicus measuring up to 1.8 cm transversely. There is additional peripherally enhancing fluid-filled tract within the right h emipelvis on image 269. Unremarkable soft tissues. Skeletal metastasis includes an sclerotic lesion o f the left pubic bone on image 317 which demonstrates mildly increased sclerosis. IMPRESSION: 1. Left lower quadrant colostomy with moderate sized parastomal hernia containing mesenteric fat and nonobstructed small bowel. 2. No bowel obstruction or pneumoperitoneum. 3. Chronic presacral soft tissue thickening with chronic pelvic fluid collection suggestive of absces ses with right and left lower quadrant sinus tracts versus fistulas as above, largest of which extend s towards the umbilicus compatible with a cutaneous fistula versus sinus tract. 4. Progressive bilateral hydroureteronephrosis, left greater than right is likely secondary to the af orementioned soft tissue thickening of the pelvis. 5. Skeletal metastasis redemonstrated. ACT 112: Negative or not required by law. The above report was generated using voice recognition software. It may contain grammatical, syntax o r spelling errors. Electronically signed by: Thierno Brown M.D. 12/24/2020 6:58 PM
[2020-12-24] MEDS ORDERED: CEFEPIME 2,000 MG/20 ML VIAL IV STA (19:23)
[2020-12-24] MEDS: MAGNESIUM SULFATE / D5W 1 GM/100 ML BAG IV SCH ×3 (19:50→23:47)
[2020-12-24 21:08] LABS: Influenza A virus by PCR Negative (Neg); Influenza B virus by PCR Negative (Neg); RSV by PCR Negative (Neg); SARS CoV2 RNA(COVID-19) InHosp NEGATIVE (Negative)
--- NOTE | 2020-12-24 21:31 | XRay Report ---
XR chest 1V portable HISTORY: 80 years-old Female sob acute shortness of breath COMPARISON: Chest radiograph 11/14/2020 TECHNIQUE: Portable AP view of the chest FINDINGS: Cardiomediastinal and hilar silhouettes are unchanged. Calcified plaque the thoracic aorta. Left subc lavian Byipga-d-Unwf catheter is unchanged. Emphysema with chronic interstitial coarsening. Right hem idiaphragmatic elevation with mild right lung base opacities. Surgical clips project over the neck. D egenerative changes of the shoulders and spine. IMPRESSION: 1. Mild right lung base opacities suggest atelectasis. Pneumonitis could appear similarly. 2. Emphysema with chronic interstitial coarsening. ACT 112: Negative or not required by law. The above report was generated using voice recognition software. It may contain grammatical, syntax o r spelling errors. Electronically signed by: Thierno Brown M.D. 12/24/2020 9:29 PM
--- NOTE | 2020-12-24 21:50 | History & Physical Report ---
Date of Service December 24, 2020 Assessment & Plan (1) Intra-abdominal abscess: Intra-abdominal abscess/abdominal wall fistula/enterocutaneous fistula- Has grown Pseudomonas previously, which appeared to respond to more than one occasion to cefepime IV. Placed on daptomycin IV, cefepime IV and synergy gentamicin IV. Follow wound culture and sensitivity Present on Admission?: Yes (2) Enterocutaneous fistula: See above Present on Admission?: Yes (3) Abdominal wall fistula: See above Present on Admission?: Yes (4) Elevated troponin I level: The patient will be admitted to telemetry for serial cardiac enzymes, serial EKG's, cardiac rhythm monitoring and a 2-D echocardiogram with Dopplers. Likely type II UT, supply demand mismatch Present on Admission?: Yes (5) Acute hypokalemia: Potassium 2.7 upon admission, will be replaced with K riders and IV fluids. Recheck laboratories in a.m. Present on Admission?: Yes (6) Hypomagnesemia: Replace both orally and IV Recheck in a.m. Present on Admission?: Yes (7) GERD (gastroesophageal reflux disease): Continue pantoprazole Present on Admission?: Yes (8) Thrush: Fluconazole p.o. every 3 days per her protocol Present on Admission?: Yes (9) Adrenal cortical adenoma: Adrenocortical adenoma/chronic prednisone use- Hold oral prednisone Placed on intermediate stress dose hydrocortisone 50 mg IV every 8 hours, monitoring thrush and abdominal wall fistula. Present on Admission?: Yes (10) Chronic use of steroids: History of Present Illness Chief Complaint: The patient presents to the emergency department with complaint of worsening left lower quadrant pain, associated at the site of her ileostomy and chronically draining enterocutaneous fistula known to grow Pseudomonas, for which she was recently restarted on cefepime 2 g IV every 12 hours in the outpatient setting Primary Care Provider: Zion Bartholomew MD The patient is a 80-year-old female with a past medical history including intra- abdominal abscess, chronic draining enterocutaneous abdominal wall fistula, 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 Patient was presents with symptoms as noted above, with decreased oral intake over the past 24 to 48 hours Allergies Allergy/AdvReac Type Severity Reaction Status Date / Time nickel Allergy Intermediate Rash Verified 12/24/20 15:29 venlafaxine AdvReac Intermediate Hypertensio Verified 12/24/20 15:29 n,Headache clarithromycin AdvReac Mild Nausea/Vomi Verified 12/24/20 15:29 ting codeine AdvReac Mild UPSET Verified 12/24/20 15:29 STOMACH hydrocodone AdvReac Mild Nausea/Vomi Verified 12/24/20 15:29 ting metronidazole [From Flagyl] AdvReac Mild Gastrointestinal Verified 12/24/20 15:29 Upset Home Medications Medication Instructions Recorded Confirmed Type folic acid 1 mg PO QAM 08/04/19 12/24/20 History citalopram 40 mg tablet 40 mg PO QAM #90 tab 01/09/20 12/24/20 Rx magnesium oxide 400 mg PO BID #20 tab 02/29/20 12/24/20 Rx prochlorperazine maleate 5 mg PO TID PRN 03/12/20 12/24/20 History [Compazine] aspirin 81 mg PO DAILY 08/09/20 12/24/20 History fluconazole [Diflucan] 200 mg PO Q72H PRN #5 tab 08/09/20 12/24/20 Rx benzonatate 100 mg capsule 100 mg PO TID PRN #60 cap 09/01/20 12/24/20 Rx levothyroxine 100 mcg tablet 100 mcg PO QAM #90 tab 09/03/20 12/24/20 Rx pantoprazole 40 mg tablet,delayed 40 mg PO QAM #90 tab 11/05/20 12/24/20 Rx release lorazepam 0.5 mg tablet 0.5 mg PO Q12H PRN #60 tab 11/25/20 12/24/20 Rx oxycodone 5 mg tablet 5 mg PO Q6H PRN #120 tab 11/25/20 12/24/20 Rx diazepam 5 mg tablet See Rx Instructions PO .COMPLEX 11/26/20 12/24/20 Rx PRN #20 tab cefepime 2 gram/50 mL in dextrose 2 g IV Q12H 10 Days #20 ea 12/20/20 12/24/20 Rx 5 % intravenous piggyback prednisone 10 mg PO DAILY 12/24/20 12/24/20 History Past Med/Surg History Medical History (Updated 12/25/20 @ 05:00 by Fernando Jennings MD) Adenocarcinoma, lung Adrenal cortical adenoma Anasarca Anxiety Arthritis Biceps tendonitis Cataract COVID-19 virus antibody negative Depression Esophageal dyskinesia Essential hypertriglyceridemia Fatigue Gastritis Gastroesophageal reflux disease History of bronchitis History of diverticulitis Hyperlipidemia Hypomagnesemia Hypothyroidism Intermittent hydrarthrosis of elbow Irritable bowel syndrome Lung cancer NEW DX Metastatic bone cancer radiation treatments completed 08/25/19. Olecranon bursitis Osteoarthritis Osteopenia Pneumonia hx SBO (small bowel obstruction) Sialoadenitis Small bowel obstruction Surgical History History of cataract surgery RT/LEFT History of colonoscopy Dr. Veronica 12/2011 History of dilatation and curettage History of discectomy CERVICAL (GOOD ROM) History of repair of rotator cuff RT History of tooth extraction S/P section X 1 S/P hip replacement left. 07/02/2019. SAB with MAC. no issues. Family History Family/Other Family history of diabetes mellitus Brother Family hx of colon cancer Mother , age 66 Diabetes Cancer ovarian Coronary heart disease had acute UT which led to her Sister Cancer Family/Other Breast cancer Father , age 49 Suicide Alcoholism Social History Smoking Status: Current every day smoker Tobacco Type: Cigarettes Age Started Using Tobacco: 21; packs per day: 0.5; Cigarettes Per Day: 2; Second Hand Exposure: No; Hx Alcohol Use: Yes Alcohol type: wine Hx Substance Use: Yes Last Used Substance: Hours (ago) Last Used Substance Other:: 12/23/20 Substance Use Type Other:: medicinal Preferred Language: Faroese Communication Ability: Effective Visual Impairment: No Limitations Hearing Ability: Normal [employer] Required: No Beliefs That Will Affect Care: None marital status: / Current Living Situation: Family Current Living Situation Comment: grandson lives with her current occupational status: retired current occupation: worked at [employer] Other Information That Helps Us Care for You: No other: 1 daughter Feels Safe at Home: Yes Safety Concerns: Feels Safe At This Time Childhood Exposure to Second-Hand Smoke: Yes (both parents) caffeine: Yes Dental Care, Regularly: No Seatbelt Use: always Assistive Devices: Oxygen - at Night Assistive Devices Comment: oxygen PRN for SOB Review of Systems Review of Systems: The patient denies chest pain, palpitations, shortness of breath, dyspnea on exertion, cough, sore throat, fevers, chills, sweats, vomiting, blood in urine or stool, dysuria, urinary frequency or urgency, lightheadedness, dizziness, headache, memory loss, loss of consciousness, rash, abnormal bruising or bleeding, focal weakness, numbness or tingling in arms or legs, generalized arthralgias or myalgias, neck pain, or night sweats. The review of systems is otherwise negative other than for that already noted above, and at least 10 systems have been reviewed. Physical Exam Physical Exam: The patient is awake, alert and oriented 3, looks emaciated, normocephalic and atraumatic, lying in bed and in no acute distress. HEENT--PERRL, EOMI, mucous membranes and oropharynx dry. Neck--supple. No JVD. No bruits. Thyroid normal, trachea midline, no adenopathy. Heart--normal S1 and S2. No murmurs, rubs or gallops. Lungs--clear bilaterally, no respiratory distress, no accessory muscle use. Abdomen--normal bowel sounds and soft. Nontender. Nondistended Extremities--no cyanosis or clubbing. No edema. Dermatologic--skin is dry Neurologic--cranial nerves II through XII grossly intact. Rheumatologic--limited exam Psychiatric--normal affect. Results & Data Results & Data ([facility]) Vital Signs (Past 12 Hours) Vital Signs Temp Pulse Pulse Resp BP BP Pulse Ox 12/24/20 21:00 71 20 106/63 97 12/24/20 20:30 73 16 112/50 L 92 12/24/20 19:00 78 20 107/58 L 91 12/24/20 18:31 76 20 90 12/24/20 18:30 74 20 111/53 L 90 12/24/20 18:19 73 20 112/58 L 94 12/24/20 18:18 76 19 12/24/20 18:00 84 24 115/56 L 12/24/20 17:34 107/56 L 03/26/21 17:30 75 20 107/56 L 92 12/24/20 17:01 69 16 94 12/24/20 17:00 71 17 123/56 L 95 12/24/20 16:39 79 14 94 12/24/20 16:31 102/62 12/24/20 16:30 78 17 12/24/20 16:17 79 21 134/72 93 12/24/20 16:00 81 18 92 12/24/20 15:30 79 15 92 12/24/20 15:14 83 15 91 12/24/20 14:52 88 22 99/58 L 98 12/24/20 13:36 97.2 F L 96 H 18 109/68 92 Laboratory Results Laboratory Results WBC 13.36 K/uL (4.8-10.8) H 12/24/20 14:46 RBC 3.40 M/uL (4.2-5.4) L 12/24/20 14:46 Hgb 10.2 g/dL (12.0-16.0) L 12/24/20 14:46 Hct 32.6 % (37-47) L 12/24/20 14:46 MCV 95.9 fL (80-100) 12/24/20 14:46 MCH 30.0 pg (25-34) 12/24/20 14:46 MCHC 31.3 g/dL (32-36) L 12/24/20 14:46 RDW Std Deviation 65.2 fL (36.4-46.3) H 12/24/20 14:46 RDW Coeff of Raymundo 18.7 % (11.5-14.5) H 12/24/20 14:46 Plt Count 175 K/uL (130-400) 12/24/20 14:46 MPV 8.5 fL (7.4-10.4) 12/24/20 14:46 Immature Gran % (Auto) 1.5 % 12/24/20 14:46 Neut % (Auto) 82.2 % 12/24/20 14:46 Lymph % (Auto) 5.7 % 12/24/20 14:46 Hale % (Auto) 9.2 % 12/24/20 14:46 Eos % (Auto) 1.2 % 12/24/20 14:46 Baso % (Auto) 0.2 % 12/24/20 14:46 Neut # (Auto) 10.98 K/uL (1.4-6.5) H 12/24/20 14:46 Lymph # (Auto) 0.76 K/uL (1.2-3.4) L 12/24/20 14:46 Hale # (Auto) 1.23 K/uL (0.11-0.59) H 12/24/20 14:46 Eos # (Auto) 0.16 K/uL (0-0.5) 12/24/20 14:46 Baso # (Auto) 0.03 K/uL (0-0.2) 12/24/20 14:46 Immature Gran # (Auto) 0.20 K/uL (0.00-0.02) H 12/24/20 14:46 Sodium 142 mmol/L (136-145) 12/24/20 14:46 Potassium 2.7 mmol/L (3.5-5.1) L 12/24/20 14:46 Chloride 114 mmol/L (98-107) H 12/24/20 14:46 Carbon Dioxide 23 mmol/L (21-32) 12/24/20 14:46 Anion Gap 4.0 (3-11) 12/24/20 14:46 BUN 14 mg/dl (7-18) 12/24/20 14:46 Creatinine 0.41 mg/dl (0.6-1.2) L 12/24/20 14:46 Est Cr Clr Drug Dosing 93.5 ml/min 12/24/20 14:46 Est GFR ( Amer) 114.7 12/24/20 14:46 Est GFR (Non-Af Amer) 99.0 12/24/20 14:46 BUN/Creatinine Ratio 33.6 (10-20) H 12/24/20 14:46 Glucose 71 mg/dl (70-99) 12/24/20 14:46 Calcium 6.4 mg/dl (8.5-10.1) L 12/24/20 14:46 Magnesium 1.1 mg/dl (1.8-2.4) L 12/24/20 14:46 Total Bilirubin 0.3 mg/dl (0.2-1) 12/24/20 14:46 AST 7 U/L (15-37) L 12/24/20 14:46 ALT 9 U/L (12-78) L 12/24/20 14:46 Alkaline Phosphatase 68 U/L (45-117) 12/24/20 14:46 Troponin I 0.086 ng/ml (0-0.045) H* 12/24/20 14:46 Total Protein 4.5 gm/dl (6.4-8.2) L 12/24/20 14:46 Albumin 1.8 gm/dl (3.4-5.0) L 12/24/20 14:46 Globulin 2.7 gm/dl (2.5-4.0) 12/24/20 14:46 Albumin/Globulin Ratio 0.7 (0.9-2) L 12/24/20 14:46 Urine Color Yellow 12/24/20 17:44 Urine Appearance Clear (Clear) 12/24/20 17:44 Urine pH 5.5 (4.5-7.5) 12/24/20 17:44 Ur Specific Felton 1.008 (1.000-1.030) 12/24/20 17:44 Urine Protein Negative (Negative) 12/24/20 17:44 Urine Glucose (UA) Negative (Negative) 12/24/20 17:44 Urine Ketones Negative (Negative) 12/24/20 17:44 Urine Blood Trace (Negative) H 12/24/20 17:44 Urine Nitrite Negative (Negative) 12/24/20 17:44 Urine Bilirubin Negative (Negative) 12/24/20 17:44 Urine Urobilinogen Negative (Negative) 12/24/20 17:44 Ur Leukocyte Esterase Negative (Negative) 12/24/20 17:44 Urine WBC (Auto) 1-5 /hpf (0-5) 12/24/20 17:44 Urine RBC (Auto) 0-4 /hpf (0-4) 12/24/20 17:44 U Hyaline Cast (Auto) 1-5 /lpf (0-5) 12/24/20 17:44 U Epithel Cells (Auto) 10-20 /lpf (0-5) H 12/24/20 17:44 Urine Bacteria (Auto) Negative (Negative) 12/24/20 17:44 COVID-19 Eval Order [facility]Rsv at [facility] 12/24/20 20:12 SARS-CoV-2 (PCR) NEGATIVE (Negative) 12/24/20 20:12 Influenza Type A (PCR) Negative (Neg) 12/24/20 20:12 Influenza Type B (PCR) Negative (Neg) 12/24/20 20:12 RSV (RT-PCR) Negative (Neg) 12/24/20 20:12 Diagnostic Findings [facility], [phone] XRay Report Patient: DAVID RODRIGUEZ Date: 12/24/20MR#: [id number]: [address] ID:[id number]: Date: 1940[facility] [place] [id number]: 80Location: EDSex: FRoom/Bed:Att Phy:Diagnosis: DEHYDRATED/LOWER LEFT SIDE PAINPri Phy: Zion Bartholomew MDService Date: 12/24/20Fam Phy:Interpreting Phy: Chandler BrownAdmit Phy: Ordering Phy: Pollo Ely MD cc: ~ XR chest 1V portable HISTORY: 80 years-old Female sob acute shortness of breath COMPARISON: Chest radiograph 11/14/2020 TECHNIQUE: Portable AP view of the chest FINDINGS: Cardiomediastinal and hilar silhouettes are unchanged. Calcified plaque the thoracic aorta. Left subclavian Gaezbh-f-Uvhg catheter is unchanged. Emphysema with chronic interstitial coarsening. Right hemidiaphragmatic elevation with mild right lung base opacities. Surgical clips project over the neck. Degenerative changes of the shoulders and spine. IMPRESSION: 1. Mild right lung base opacities suggest atelectasis. Pneumonitis could appear similarly. 2. Emphysema with chronic interstitial coarsening. ACT 112: Negative or not required by law. The above report was generated using voice recognition software. It may contain grammatical, syntax or spelling errors. Electronically signed by: Thierno Brown M.D. 12/24/2020 9:29 PM Dictated: 12/24/202127Transcribed: 12/24/202127 [facility], [phone] CT Scan Report Patient: DAVID RODRIGUEZ Date: 12/24/20MR#: [id number]: [address] [facility] ID:[id number]: Date: 1940[facility] Zip: [place] [id number]: 80Location: EDSex: FRoom/Bed:Att Phy:Diagnosis: DEHYDRATED/LOWER LEFT SIDE PAINPri Phy: Williamsyeda Zion MDService Date: 12/24/20Fam Phy:Interpreting Phy: Chandler BrownAdmmonica Phy: Ordering Phy: Pollo Ely MD cc: ~ ABDOMEN AND PELVIS CT WITH IV AND ORAL CONTRAST CT DOSE: 425.92 mGycm HISTORY: Acute left lower quadrant abdominal pain LLQ pain h/o fistula/ractal mass/cyst TECHNIQUE: Multiaxial CT images of the abdomen and pelvis were performed following the IV administration of 93 cc of Optiray 320 and oral contrast. A dose lowering technique was utilized adhering to the principles of ALARA. COMPARISON STUDY: CT abdomen and pelvis 11/14/2020 and 03/30/2020, PET CT 07/28/2020 FINDINGS: Trace pericardial effusion. Coronary artery calcifications. No new pulmonary nodules identified. There is no pneumatosis or pneumoperitoneum identified. Spleen measures the upper limits of normal at 12.5 cm. Unremarkable pancreas and right adrenal gland. Unchanged 1.7 cm left adrenal gland nodule. Unremarkable gallbladder and liver. Patency of the hepatic and portal veins. Numerous cysts of the bilateral kidneys measure up to 1.9 cm on the right. Mild right and moderate left hydroureteronephrosis has progressed from comparison. The distal ureters are suboptimally visualized. No obstructing ureteral calculi identified. Mild bladder wall thickening. Suboptimal evaluation of the pelvis secondary to artifact from the left hip total joint arthroplasty. Fibroid uterus is suggested. Calcified plaque the abdominal aorta. Left lower quadrant colostomy with parastomal hernia redemonstrated. Enteric fat and nonobstructed loops of small bowel. No bowel obstruction. There is chronic presacral soft tissue thickening and heterogeneous enhancement with chronic air and fluid-filled collections. There is a peripherally enhancing air and fluid- filled tract extending from the left hemipelvis towards the umbilicus measuring up to 1.8 cm transversely. There is additional peripherally enhancing fluid- filled tract within the right hemipelvis on image 269. Unremarkable soft tissues. Skeletal metastasis includes an sclerotic lesion of the left pubic bone on image 317 which demonstrates mildly increased sclerosis. IMPRESSION: 1. Left lower quadrant colostomy with moderate sized parastomal hernia containing mesenteric fat and nonobstructed small bowel. 2. No bowel obstruction or pneumoperitoneum. 3. Chronic presacral soft tissue thickening with chronic pelvic fluid collection suggestive of abscesses with right and left lower quadrant sinus tracts versus fistulas as above, largest of which extends towards the umbilicus compatible with a cutaneous fistula versus sinus tract. 4. Progressive bilateral hydroureteronephrosis, left greater than right is likely secondary to the aforementioned soft tissue thickening of the pelvis. 5. Skeletal metastasis redemonstrated. ACT 112: Negative or not required by law. The above report was generated using voice recognition software. It may contain grammatical, syntax or spelling errors. Electronically signed by: Thierno Brown M.D. 12/24/2020 6:58 PM Dictated: 12/24/201829Transcribed: 12/24/201829 Code Status & VTE Plan Code Status Full code VTE Prophylaxis Plan VTE Prophylaxis will be ordered: Yes PG Care Time/CCT Total # of Minutes Spent Total Time Spent with Patient: Total time spent is greater than 50% in coordination of care (as documented) at patient's floor/unit and/or counseling patient: Coding Level of Care Code 14953 Initial Inpt Care Lvl 3 Diagnoses Intra-abdominal abscess K65.1 Enterocutaneous fistula K63.2 Abdominal wall fistula K63.2 Elevated troponin I level R77.8 Acute hypokalemia E87.6 Hypomagnesemia E83.42 GERD (gastroesophageal reflux disease) K21.9 Esophagitis presence: without esophagitis Thrush B37.0 Adrenal cortical adenoma D35.00 Chronic use of steroids (1) GERD (gastroesophageal reflux disease) Esophagitis presence: without esophagitis Qualified Code(s): K21.9 - Gastro- esophageal reflux disease without esophagitis
[2020-12-24] MEDS ORDERED: ACETAMINOPHEN 325 MG TAB PO PRN (23:18)
[2020-12-24] MEDS ORDERED: DEXTROSE IV SCH (23:18)
[2020-12-24] MEDS ORDERED: BENZONATATE 100 MG CAPSULE PO PRN (23:18)
[2020-12-24] MEDS ORDERED: HYDROCORTISONE SOD SUCCINATE 100 MG/2 ML VIAL IV SCH (23:18)
[2020-12-24] MEDS ORDERED: GENTAMICIN CONSULT ACTIVE PRN (23:18)
[2020-12-24] MEDS ORDERED: diazePAM 5 MG TABLET PO PRN (23:18)
[2020-12-24] MEDS ORDERED: CEFEPIME IV SCH (23:18)
[2020-12-24] MEDS ORDERED: PROCHLORPERAZINE MALEATE 5 MG TAB PO PRN (23:18)
[2020-12-24] MEDS ORDERED: FLUCONAZOLE 100 MG TAB PO PRN (23:18)
[2020-12-24] MEDS: MAGNESIUM OXIDE 400 MG TAB PO SCH (23:47)
[2020-12-24] MEDS: D5NSS + 20MEQ KCL 20 MEQ/1,000 ML BAG IV SCH (23:47)
[2020-12-24] MEDS: LORazepam 0.5 MG TAB PO PRN (23:58)
[2020-12-25] MEDS ORDERED: DEXTROSE 5% IV ONE (00:30)
[2020-12-25] MEDS ORDERED: GENTAMICIN SULFATE IV ONE (00:30)
[2020-12-25] MEDS: DAPTOmycin 225 MG in SYRINGE 0 ML IV SCH ×2 (01:38→23:35)
[2020-12-25] MEDS: HYDROCORTISONE SOD 50 MG in SYRINGE 0 ML IV SCH ×4 (01:39→23:35)
[2020-12-25] MEDS: MAGNESIUM SULFATE / D5W 1 GM/100 ML BAG IV SCH (01:51)
[2020-12-25 06:10] LABS: Basophils # (auto) 0.02 K/uL (0-0.2); Basophils % (auto) 0.2 %; Eosinophils # (auto) 0.14 K/uL (0-0.5); Eosinophils % (auto) 1.2 %; Hematocrit (blood only) 36.1 % (37-47); Hemoglobin 11.7 g/dL (12.0-16.0); Immature Granulocytes # (auto) 0.12 K/uL (0.00-0.02); Lymphocytes # (auto) 0.35 K/uL (1.2-3.4); Mean Corpuscular Hemoglobin 30.4 pg (25-34); Mean Corpuscular Hgb Conc 32.4 g/dL (32-36); Mean Corpuscular Volume 93.8 fL (80-100); Mean Platelet Volume 8.6 fL (7.4-10.4); Monocytes # (auto) 0.46 K/uL (0.11-0.59); Monocytes % (auto) 3.9 %; Neutrophils % (auto) 90.7 %; Platelet Count 209 K/uL (130-400); RDW Coefficient of Variation 18.1 % (11.5-14.5); RDW Standard Deviation 61.9 fL (36.4-46.3); Red Blood Count 3.85 M/uL (4.2-5.4); White Blood Count 11.79 K/uL (4.8-10.8)
[2020-12-25] MEDS: LEVOTHYROXINE SODIUM 100 MCG TABLET PO SCH (06:20)
[2020-12-25] MEDS: ENOXAPARIN INJ 30 MG/0.3 ML SYR SQ SCH (06:20)
[2020-12-25 06:41] LABS: Albumin Level 2.3 gm/dl (3.4-5.0); BUN Creatinine Ratio 19.8 (10-20); Calcium 8.2 mg/dl (8.5-10.1); Creatinine Clr Calc Pharmacy 55.6 ml/min; Est GFR (African American) 96.6; Est GFR (Non-African American) 83.4
[2020-12-25 06:45] LABS: Albumin Globulin Ratio 0.6 (0.9-2); Bilirubin,Total 0.3 mg/dl (0.2-1); Globulin 3.9 gm/dl (2.5-4.0); Total Protein 6.2 gm/dl (6.4-8.2); Troponin I 0.022 ng/ml (0-0.045)
[2020-12-25] MEDS ORDERED: HEPARIN 100 UNIT/ML 5ML FLUSH FLUSH PRN (06:47)
[2020-12-25] MEDS ORDERED: CEFEPIME 2,000 MG in SYRINGE 0 ML IV SCH (08:00)
[2020-12-25] MEDS: MAGNESIUM OXIDE 400 MG TAB PO SCH ×2 (08:33→19:42)
[2020-12-25] MEDS: FOLIC ACID 1 MG TAB PO SCH (08:33)
[2020-12-25] MEDS: CITALOPRAM 40 MG TAB PO SCH (08:33)
[2020-12-25] MEDS: ASPIRIN 81 MG ECTAB PO SCH (08:33)
[2020-12-25] MEDS: PANTOprazole 40 MG TAB PO SCH (08:33)
[2020-12-25] MEDS: D5NSS + 20MEQ KCL 20 MEQ/1,000 ML BAG IV SCH ×2 (10:26→19:41)
[2020-12-25] MEDS ORDERED: MEROPENEM CONSULT ACITVE PRN (10:33)
[2020-12-25] MEDS: MEROPENEM 500 MG in SYRINGE 0 ML IV SCH ×3 (12:40→21:31)
--- NOTE | 2020-12-25 13:15 | Electrocardiogram Report ---
Test Reason : Blood Pressure : / mmHG Vent. Rate : 073 BPM Atrial Rate : 073 BPM P-R Int : 118 ms QRS Dur : 084 ms QT Int : 398 ms P-R-T Axes : 068 -64 072 degrees QTc Int : 438 ms Poor data quality, interpretation may be adversely affected Normal sinus rhythm Left axis deviation Possible Inferior infarct (cited on or before 14-NOV-2020) Abnormal ECG When compared with ECG of 14-NOV-2020 02:58, Premature atrial complexes are no longer Present Confirmed by Chirag Carranza ([id number]) on 12/25/2020 1:15:07 PM Referred By: REFERRED SELF Confirmed By:Chirag Carranza
[2020-12-25] MEDS: ONDANSETRON INJ 2 MG/ML 2 ML VIAL IV PRN (18:10)
[2020-12-25] MEDS: oxyCODONE HCL IR 5 MG TAB (IMMEDIATE RELEASE) PO PRN (18:10)
--- NOTE | 2020-12-25 18:16 | Hospitalist Progress Note ---
Date of Service December 25, 2020 Assessment & Plan (1) Intra-abdominal abscess: Intra-abdominal abscess/abdominal wall fistula/enterocutaneous fistula- Has grown Pseudomonas previously, which appeared to respond to more than one occasion to cefepime IV. After discussion with pharmacy change antibiotics to meropenem and daptomycin. 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 Likely type II TN, supply demand mismatch No new concerns on review reduction and troponin I to 0.18 (5) Acute hypokalemia: Potassium 2.7 upon admission, will be replaced with K riders and IV fluids. Recheck laboratories in a.m. Recheck was normal of 4.0 (6) Hypomagnesemia: Replace both orally and IV Recheck in a.m. (7) GERD (gastroesophageal reflux disease): Continue pantoprazole (8) Thrush: Fluconazole p.o. 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 (10) Chronic use of steroids: Admission and Anticipated Discharge Date Admission Date: December 24, 2020 Subjective Patient is in good spirits Slept through the evening. No new abdominal pain nausea vomiting No fevers chills No chest pain dyspnea or palpitations Review of Systems Review of Systems: All systems reviewed & are unremarkable except as noted in Subjective Physical Exam Physical Exam: Constitutional: WD/WN, vitals as above Psychiatric: AA Ox3, euthymic affect Eyes: PERRL, conjunctivae normal, anicteric sclerae Respiratory: Effort normal, CTA B/L CV: RRR, no murmur, no edema Abdomen: normal bowel sounds, soft, nontender, Neurologic:grossly intact Results & Data Results & Data ([facility]) Vital Signs (Past 12 Hours) Vital Signs Temp Pulse Resp BP Pulse Ox 12/25/20 15:00 36.5 C 70 16 106/60 96 12/25/20 07:28 36.7 C 70 16 108/63 96 Laboratory Results Laboratory Results - last 24 hr 12/24/20 12/24/20 12/25/20 20:12 20:12 05:45 WBC 11.79 H RBC 3.85 L Hgb 11.7 L Hct 36.1 L MCV 93.8 MCH 30.4 MCHC 32.4 RDW Std Deviation 61.9 H RDW Coeff of Raymundo 18.1 H Plt Count 209 MPV 8.6 Immature Gran % (Auto) 1.0 Neut % (Auto) 90.7 Lymph % (Auto) 3.0 [place] % (Auto) 3.9 Eos % (Auto) 1.2 Baso % (Auto) 0.2 Neut # (Auto) 10.70 H Lymph # (Auto) 0.35 L [place] # (Auto) 0.46 Eos # (Auto) 0.14 Baso # (Auto) 0.02 Immature Gran # (Auto) 0.12 H Sodium Potassium Chloride Carbon Dioxide Anion Gap BUN Creatinine Est Cr Clr Drug Dosing Est GFR ( Amer) Est GFR (Non-Af Amer) BUN/Creatinine Ratio Glucose Calcium Total Bilirubin AST ALT Alkaline Phosphatase Troponin I Total Protein Albumin Globulin Albumin/Globulin Ratio COVID-19 Eval Order CovFluRsv at [facility] SARS-CoV-2 (PCR) NEGATIVE Influenza Type A (PCR) Negative Influenza Type B (PCR) Negative RSV (RT-PCR) Negative 12/25/20 12/25/20 05:45 12:51 WBC RBC Hgb Hct MCV MCH MCHC RDW Std Deviation RDW Coeff of Raymundo Plt Count MPV Immature Gran % (Auto) Neut % (Auto) Lymph % (Auto) [place] % (Auto) Eos % (Auto) Baso % (Auto) Neut # (Auto) Lymph # (Auto) [place] # (Auto) Eos # (Auto) Baso # (Auto) Immature Gran # (Auto) Sodium 136 Potassium 4.0 D Chloride 104 Carbon Dioxide 30 Anion Gap 2.0 L BUN 14 Creatinine 0.69 Est Cr Clr Drug Dosing 55.6 Est GFR ( Amer) 96.6 Est GFR (Non-Af Amer) 83.4 BUN/Creatinine Ratio 19.8 Glucose 147 H Calcium 8.2 L D Total Bilirubin 0.3 AST 7 L ALT 11 L Alkaline Phosphatase 95 Troponin I 0.022 0.018 Total Protein 6.2 L D Albumin 2.3 L Globulin 3.9 Albumin/Globulin Ratio 0.6 L COVID-19 Eval Order SARS-CoV-2 (PCR) Influenza Type A (PCR) Influenza Type B (PCR) RSV (RT-PCR) PG Care Time/CCT Total # of Minutes Spent Total Time Spent with Patient: Total time spent is greater than 50% in coordination of care (as documented) at patient's floor/unit and/or counseling patient: Coding Level of Care Code 26970 Subseq Hosp Care Lvl 2 Diagnoses Intra-abdominal abscess K65.1 Enterocutaneous fistula K63.2 Abdominal wall fistula K63.2 Elevated troponin I level R77.8 Acute hypokalemia E87.6 Hypomagnesemia E83.42 GERD (gastroesophageal reflux disease) K21.9 Esophagitis presence: without esophagitis Thrush B37.0 Adrenal cortical adenoma D35.00 Chronic use of steroids (1) GERD (gastroesophageal reflux disease) Esophagitis presence: without esophagitis Qualified Code(s): K21.9 - Gastro- esophageal reflux disease without esophagitis
[2020-12-25] MEDS: LORazepam 0.5 MG TAB PO PRN (21:39)
[2020-12-26] MEDS: D5NSS + 20MEQ KCL 20 MEQ/1,000 ML BAG IV SCH ×2 (04:17→15:27)
[2020-12-26] MEDS: MEROPENEM 500 MG in SYRINGE 0 ML IV SCH ×4 (04:17→21:41)
[2020-12-26] MEDS: LEVOTHYROXINE SODIUM 100 MCG TABLET PO SCH (05:12)
[2020-12-26] MEDS: ENOXAPARIN INJ 30 MG/0.3 ML SYR SQ SCH (05:12)
[2020-12-26 05:36] LABS: Basophils # (auto) 0.01 K/uL (0-0.2); Basophils % (auto) 0.1 %; Eosinophils # (auto) 0.01 K/uL (0-0.5); Eosinophils % (auto) 0.1 %; Hematocrit (blood only) 32.7 % (37-47); Hemoglobin 10.6 g/dL (12.0-16.0); Immature Granulocytes # (auto) 0.06 K/uL (0.00-0.02); Immature Granulocytes % (auto) 0.7 %; Lymphocytes # (auto) 0.42 K/uL (1.2-3.4); Lymphocytes % (auto) 4.7 %; Mean Corpuscular Hemoglobin 30.4 pg (25-34); Mean Corpuscular Hgb Conc 32.4 g/dL (32-36); Mean Corpuscular Volume 93.7 fL (80-100); Monocytes % (auto) 6.7 %; Neutrophils # (auto) 7.81 K/uL (1.4-6.5); Neutrophils % (auto) 87.7 %; Platelet Count 174 K/uL (130-400); RDW Coefficient of Variation 17.5 % (11.5-14.5); RDW Standard Deviation 60.5 fL (36.4-46.3); Red Blood Count 3.49 M/uL (4.2-5.4); White Blood Count 8.91 K/uL (4.8-10.8)
[2020-12-26 06:06] LABS: Albumin Level 2.1 gm/dl (3.4-5.0); BUN Creatinine Ratio 23.7 (10-20); Blood Urea Nitrogen 16 mg/dl (7-18); Calcium 7.9 mg/dl (8.5-10.1); Carbon Dioxide 29 mmol/L (21-32); Chloride 109 mmol/L (98-107); Creatinine Clr Calc Pharmacy 56.4 ml/min; Est GFR (African American) 97.1; Est GFR (Non-African American) 83.8; Glucose 168 mg/dl (70-99); Sodium 139 mmol/L (136-145)
[2020-12-26 06:11] LABS: Alanine Aminotransferase 11 U/L (12-78); Albumin Globulin Ratio 0.6 (0.9-2); Alkaline Phosphatase 89 U/L (45-117); Aspartate Aminotransferase 7 U/L (15-37); Bilirubin,Total 0.2 mg/dl (0.2-1); Globulin 3.7 gm/dl (2.5-4.0); Total Protein 5.8 gm/dl (6.4-8.2); Troponin I < 0.015 ng/ml (0-0.045)
[2020-12-26] MEDS: HYDROCORTISONE SOD 50 MG in SYRINGE 0 ML IV SCH ×2 (08:59→15:28)
[2020-12-26] MEDS: CITALOPRAM 40 MG TAB PO SCH (08:59)
[2020-12-26] MEDS: FOLIC ACID 1 MG TAB PO SCH (08:59)
[2020-12-26] MEDS: ASPIRIN 81 MG ECTAB PO SCH (08:59)
[2020-12-26] MEDS: PANTOprazole 40 MG TAB PO SCH (08:59)
[2020-12-26] MEDS: MAGNESIUM OXIDE 400 MG TAB PO SCH ×2 (08:59→20:28)
[2020-12-26] MEDS: HYDROmorphone INJ 0.5 MG/0.5 ML SYR IV PRN ×3 (11:54→21:40)
--- NOTE | 2020-12-26 19:57 | Hospitalist Progress Note ---
Date of Service December 26, 2020 Assessment & Plan (1) Intra-abdominal abscess: Intra-abdominal abscess/abdominal wall fistula/enterocutaneous fistula- Has grown Pseudomonas previously, which appeared to respond to more than one occasion to cefepime IV. She notes she was on cefepime up to admissionand notes that she is feeling better on meropenem. Continue this, work for setting this up for home. Does not want transfer for surgery, tried to work this into a little bit of a goals of care type discussion, but she seem to prefer to stay very surface level that she does not want transfer for surgical evaluation but still does want a follow- up with surgery as an outpatient. 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 (7) GERD (gastroesophageal reflux disease): Continue pantoprazole (8) Thrush: Fluconazole p.o. every 3 days per her protocol (9) Adrenal cortical adenoma: Trop stress dose steroids back to regular p.o. prednisone (10) Chronic use of steroids: (11) DVT prophylaxis: SCDs (12) Discharge planning issues: Really wants to go home, but seems to need ongoing pseudomonal coverage, and failed cefepime as an outpatient, case management setting up meropenem for home, hopefully home tomorrow. Admission and Anticipated Discharge Date Admission Date: December 24, 2020 Subjective feeling better still w pain and discharge but really wants to go home. doesn't want transfer for surgery, does have outpt surgery follow up soon, but again on directed questioning does not want me to pursue transfer for surgery considerations Review of Systems Review of Systems: All systems reviewed & are unremarkable except as noted in HPI & below Physical Exam Physical Exam: General awake alert pleasant no distress. HEENT normocephalic atraumatic mucous membranes moist. Breathing unlabored no accessory muscle use good effort. Abdomen soft fistula with singleton exudative drainage that is blood- tinged, no guarding no rebound no rigidity, ostomy with good stool output Results & Data Results & Data ([facility]) Vital Signs (Past 12 Hours) Vital Signs Temp Pulse Resp BP Pulse Ox 12/26/20 16:14 98.1 F 57 L 16 139/67 96 PG Care Time/CCT Total # of Minutes Spent Total Time Spent with Patient: Total time spent is greater than 50% in coordination of care (as documented) at patient's floor/unit and/or counseling patient: Coding Level of Care Code 11702 Subseq Hosp Care Lvl 3 Diagnoses Intra-abdominal abscess K65.1 Enterocutaneous fistula K63.2 Abdominal wall fistula K63.2 Elevated troponin I level R77.8 Acute hypokalemia E87.6 Hypomagnesemia E83.42 GERD (gastroesophageal reflux disease) K21.9 Esophagitis presence: without esophagitis Thrush B37.0 Adrenal cortical adenoma D35.00 Chronic use of steroids DVT prophylaxis Z29.9 Discharge planning issues Z02.9 (1) GERD (gastroesophageal reflux disease) Esophagitis presence: without esophagitis Qualified Code(s): K21.9 - Gastro- esophageal reflux disease without esophagitis
[2020-12-26] MEDS: DAPTOmycin 225 MG in SYRINGE 0 ML IV SCH (23:23)
[2020-12-27] MEDS: D5NSS + 20MEQ KCL 20 MEQ/1,000 ML BAG IV SCH ×2 (00:19→10:41)
[2020-12-27] MEDS: oxyCODONE HCL IR 5 MG TAB (IMMEDIATE RELEASE) PO PRN ×2 (02:27→08:17)
[2020-12-27] MEDS: MEROPENEM 500 MG in SYRINGE 0 ML IV SCH ×3 (04:21→15:16)
[2020-12-27] MEDS: LEVOTHYROXINE SODIUM 100 MCG TABLET PO SCH (05:07)
[2020-12-27] MEDS: ENOXAPARIN INJ 30 MG/0.3 ML SYR SQ SCH (05:07)
[2020-12-27] MEDS: ONDANSETRON INJ 2 MG/ML 2 ML VIAL IV PRN (05:09)
[2020-12-27 06:11] LABS: Basophils # (auto) 0.02 K/uL (0-0.2); Basophils % (auto) 0.2 %; Eosinophils % (auto) 1.1 %; Hematocrit (blood only) 32.6 % (37-47); Hemoglobin 10.4 g/dL (12.0-16.0); Immature Granulocytes # (auto) 0.08 K/uL (0.00-0.02); Immature Granulocytes % (auto) 0.8 %; Lymphocytes # (auto) 1.06 K/uL (1.2-3.4); Lymphocytes % (auto) 11.3 %; Mean Corpuscular Hemoglobin 30.4 pg (25-34); Mean Corpuscular Hgb Conc 31.9 g/dL (32-36); Mean Corpuscular Volume 95.3 fL (80-100); Mean Platelet Volume 8.9 fL (7.4-10.4); Monocytes # (auto) 1.04 K/uL (0.11-0.59); Neutrophils # (auto) 7.12 K/uL (1.4-6.5); Neutrophils % (auto) 75.6 %; Platelet Count 189 K/uL (130-400); RDW Coefficient of Variation 17.7 % (11.5-14.5); RDW Standard Deviation 61.3 fL (36.4-46.3); Red Blood Count 3.42 M/uL (4.2-5.4); White Blood Count 9.42 K/uL (4.8-10.8)
[2020-12-27 06:44] LABS: Albumin Level 2.2 gm/dl (3.4-5.0); BUN Creatinine Ratio 16.3 (10-20); Calcium 8.6 mg/dl (8.5-10.1); Creatinine Clr Calc Pharmacy 68.5 ml/min; Est GFR (African American) 103.5; Est GFR (Non-African American) 89.3; Potassium 3.4 mmol/L (3.5-5.1)
[2020-12-27 06:47] LABS: Albumin Globulin Ratio 0.6 (0.9-2); Bilirubin,Total 0.1 mg/dl (0.2-1); Globulin 3.4 gm/dl (2.5-4.0); Total Protein 5.6 gm/dl (6.4-8.2)
[2020-12-27] MEDS: FOLIC ACID 1 MG TAB PO SCH (08:17)
[2020-12-27] MEDS: CITALOPRAM 40 MG TAB PO SCH (08:17)
[2020-12-27] MEDS: MAGNESIUM OXIDE 400 MG TAB PO SCH (08:17)
[2020-12-27] MEDS: ASPIRIN 81 MG ECTAB PO SCH (08:17)
[2020-12-27] MEDS: PANTOprazole 40 MG TAB PO SCH (08:17)
[2020-12-27] MEDS ORDERED: predniSONE 10 MG TABLET PO SCH (09:00)
[2020-12-27] MEDS ORDERED: POTASSIUM CHLORIDE CRTAB 20 MEQ TABCR PO ONE (09:30)
--- NOTE | 2020-12-27 21:03 | Discharge Summary ---
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 Patient was presents with symptoms as noted above, with decreased oral intake over the past 24 to 48 hours Principal Diagnosis Abdominal infection Discharge Exam General she is awake and alert pleasant no distress. HEENT normocephalic atraumatic mucous membranes moist. Breathing unlabored no accessory muscle use good effort. Skin shows no rashes no pallor or icterus. Neuro shows no focal deficits. Abdomen soft nondistended nontender no masses organomegaly. Discharge Data Allergies Allergy/AdvReac Type Severity Reaction Status Date / Time nickel Allergy Intermediate Rash Verified 12/24/20 15:29 venlafaxine AdvReac Intermediate Hypertensio Verified 12/24/20 15:29 n,Headache clarithromycin AdvReac Mild Nausea/Vomi Verified 12/24/20 15:29 ting codeine AdvReac Mild UPSET Verified 12/24/20 15:29 STOMACH hydrocodone AdvReac Mild Nausea/Vomi Verified 12/24/20 15:29 ting metronidazole [From Flagyl] AdvReac Mild Gastrointestinal Verified 12/24/20 15:29 Upset Consultations 12/24/20 19:23 ED Decision to Admit Stat Ordered Studies 12/24/20 15:56 CT abd pelvis oral and IV con Stat Hospital Course (1) Intra-abdominal abscess: Intra-abdominal abscess/abdominal wall fistula/enterocutaneous fistula- Has grown Pseudomonas previously, which appeared to respond to more than one occasion to cefepime IV. She notes she was on cefepime up to admissionand notes that she is feeling better on meropenem. Continue this, and to finish out a course of meropenem at home. Does not want transfer for surgery, tried to work this into a little bit of a goals of care type discussion, but she seem to prefer to stay very surface level that she does not want transfer for surgical evaluation but still does want a follow-up with surgery as an outpatient. 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 (7) GERD (gastroesophageal reflux disease): Continue pantoprazole (8) Thrush: Fluconazole p.o. every 3 days per her protocol (9) Adrenal cortical adenoma: Trop stress dose steroids back to regular p.o. prednisone (10) Chronic use of steroids: (11) DVT prophylaxis: SCDs (12) Discharge planning issues: Meropenem set up for home. Discharge, outpatient follow-up with PCP and surgery. Total Time Total Time Spent Total Time Spent (In Minutes): <30 Discharge Plan Discharge Items Patient Disposition: Home - Home Health Services Reason For Visit: REURRENT FISTULA INFECTION Discharge Diagnosis: abdominal infection Activity: Resume your previous activity Non-emergency contact: Primary Care Provider and Surgeon Call non-emergency contact if: you have any medication questions and your symptoms worsen Follow-up/Referrals: Zion Bartholomew MD [Primary Care Provider] - 01/04/21 11:00 am Diet: Regular Addtl Attending Provider Instructions: abdominal infection -for now, we'll continue to "splint" the situation with antibiotics. since you were on the cefepime when things worsened, but started to get better after a switch to meropenem, we'll finish out a course of treatment wtih the meropenem this time. because we want to be able to keep options open for you, i wouldn't write off cefepime forever as a "won't work anymore' as much as calling it a "didn't work this time" - the reason for that is our weapons against pseudomonas are fairly limited, so we want to be able to treat you with as many options as possible, rather than running into a narrower and narrower choice of options because of "closed doors" -as we've been discussing, this unfortunately is not a problem that looks like we'll be able to "fix" it - as much as just splint it. the surgeons in [place] would be there to weigh in on how much a surgical approach might help vs cause more harm, and if they really feel like they could get you a lot of benefit, then it would be reasonable to proceed. that said, if they don't think they could help much, or if it sounds more "iffy," it is important to remember that you have done amazingly well with this cancer journey for a really long time, and it's totally OK to just continue to "put out fires" as they come up (especially if something like a course of antibiotics helps) even if it doesn't have the ability to truly "fix" the situation please disregard the odd way the meropenem comes up on your computer med list - the actual prescription was sent yesterday and things are arranged, i just wanted to make it clear on your med list for follow up visits that we treated this with meropenem and you were off the cefepime; adding a course of IV medications to the med list is sometimes tricky to make it "look right"( Pending Studies at Discharge: No Stand-Alone Forms: My [facility] Medications and DC Order Prescriptions: New meropenem 500 mg Recon Soln 500 mg Not Applicable UD PRN (Reason: infection) Qty: 1 RF: 0 Continued citalopram [Celexa] 40 mg tablet 40 mg PO QAM Qty: 90 RF: 3 levothyroxine [Synthroid] 100 mcg tablet 100 mcg PO QAM Qty: 90 RF: 3 pantoprazole [Protonix] 40 mg tablet,delayed release (DR/EC) 40 mg PO QAM Qty: 90 RF: 3 lorazepam 0.5 mg tablet 0.5 mg PO Q12H PRN (Reason: anxiety) Qty: 60 RF: 0 Hold Instructions: valium at night oxycodone 5 mg tablet 5 mg PO Q6H PRN (Reason: Pain) Qty: 120 RF: 0 benzonatate [Tessalon Perles] 100 mg capsule 100 mg PO TID PRN (Reason: cough) Qty: 60 RF: 0 diazepam [Valium] 5 mg tablet See Rx Instructions PO .COMPLEX PRN (Reason: anxiety) Qty: 20 RF: 0 folic acid 1 mg tablet 1 mg PO QAM RF: 0 aspirin 81 mg Tablet,Delayed Release (Dr/Ec) 81 mg PO DAILY RF: 0 fluconazole [Diflucan] 200 mg tablet 200 mg PO Q72H PRN (Reason: thrush) Qty: 5 RF: 0 magnesium oxide 400 mg (241.3 mg magnesium) tablet 400 mg PO BID Qty: 20 RF: 0 prochlorperazine maleate [Compazine] 5 mg tablet 5 mg PO TID PRN (Reason: Nausea And Vomiting) RF: 0 prednisone 20 mg tablet 10 mg PO DAILY RF: 0 Discontinued cefepime in dextrose 5 % 2 gram/50 mL piggyback 2 g IV Q12H 10 Days Qty: 20 RF: 0 Discharge Orders: Discharge Order (Routine); Ordered 12/27/20 Ordered By: Armani Ritter/Other Patient Handouts: Meropenem injection Admission Data Admit Date/Time: 12/24/20 21:48 Attending Provider: Armani Domínguez Admit Provider: Fernando Jennings Primary Care Provider: Zion Bartholomew Other Providers: Fernando Jennings ; [facility] ; Nikunj Muller ; Kerry Ferrer Other Interventions: Discharge Summary Assessment (RN) Last Done: 12/27/20 13:42 Coding Level of Care Code D/C Day Management <30 mins Diagnoses Intra-abdominal abscess K65.1 Enterocutaneous fistula K63.2 Abdominal wall fistula K63.2 Elevated troponin I level R77.8 Acute hypokalemia E87.6 Hypomagnesemia E83.42 GERD (gastroesophageal reflux disease) K21.9 Esophagitis presence: without esophagitis Thrush B37.0 Adrenal cortical adenoma D35.00 Chronic use of steroids DVT prophylaxis Z29.9 Discharge planning issues Z02.9
== END 2020-12-27 16:03 | disposition home health service (06) | DRG 372 ==
LOC: ED 13:21 → 3N 21:48 → INTOOBSV 21:48 → SUATTDRO 21:48 → 3N 22:53

== ENCOUNTER 2021-02-04 14:57 | Inpatient (IN) ==
[2021-02-04 15:48] LABS: Basophils # (auto) 0.05 K/uL (0-0.2); Basophils % (auto) 0.4 %; Eosinophils # (auto) 0.14 K/uL (0-0.5); Eosinophils % (auto) 1.1 %; Hematocrit (blood only) 24.7 % (37-47); Hemoglobin 7.7 g/dL (12.0-16.0); Immature Granulocytes # (auto) 0.09 K/uL (0.00-0.02); Immature Granulocytes % (auto) 0.7 %; Lymphocytes # (auto) 0.81 K/uL (1.2-3.4); Lymphocytes % (auto) 6.3 %; Mean Corpuscular Hemoglobin 30.2 pg (25-34); Mean Corpuscular Hgb Conc 31.2 g/dL (32-36); Mean Corpuscular Volume 96.9 fL (80-100); Mean Platelet Volume 9.2 fL (7.4-10.4); Monocytes # (auto) 1.66 K/uL (0.11-0.59); Monocytes % (auto) 12.9 %; Neutrophils # (auto) 10.16 K/uL (1.4-6.5); Neutrophils % (auto) 78.6 %; Platelet Count 335 K/uL (130-400); RDW Coefficient of Variation 14.9 % (11.5-14.5); RDW Standard Deviation 52.4 fL (36.4-46.3); Red Blood Count 2.55 M/uL (4.2-5.4); White Blood Count 12.91 K/uL (4.8-10.8)
[2021-02-04 16:01] LABS: Albumin Globulin Ratio 0.3 (0.9-2); Albumin Level 1.4 gm/dl (3.4-5.0); BUN Creatinine Ratio 14.6 (10-20); Bilirubin,Total 0.2 mg/dl (0.2-1); Calcium 8.3 mg/dl (8.5-10.1); Creatinine Clr Calc Pharmacy 34.6 ml/min; Est GFR (African American) 55.1; Est GFR (Non-African American) 47.5; Potassium 3.1 mmol/L (3.5-5.1); Total Protein 5.4 gm/dl (6.4-8.2)
[2021-02-04] MEDS ORDERED: SODIUM CHLORIDE 0.9% 1000ML 500 ML IV ONE (16:12)
[2021-02-04] MEDS ORDERED: POTASSIUM CHLORIDE / WTR 10 MEQ/100 ML PLCT IV ONE (16:21)
--- NOTE | 2021-02-04 16:26 | Emergency Department Note ---
Impression & Plan Hypotension, Hypomagnesemia, Hypokalemia, Altered mental status, Elevated troponin, Abdominal abscess, Compression fracture, DVT (deep venous thrombosis) ED Provider Note NAME: DAVID RODRIGUEZ AGE: 80 SEX: F : 1940 ARRIVES VIA: Ambulance INFORMANT: [Patient] ED PROVIDER(S): [Jeffry Vasquez MD] CHIEF COMPLAINT: Lethargy HISTORY OF PRESENT ILLNESS: The patient is a 80-year-old female who presents with a declining mental state. She has had increasing lethargy for the last 8 days since being discharged from [facility] in [place]. At [facility], she underwent abdominal surgery. She has a GREGG drain in place. She has ney in place. The patient is currently on IV meropenem and IV vancomycin at home. The patient's become weaker and weaker to the point where she can no longer make it to the bathroom. Her left leg has begun to swell and is now weeping. She is always tired. She is complaining of severe mid back pain from what the daughter believes are compression fractures. She has known compression fractures and there is concerned that there could be some mets to the spine. 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 The patient has not had a fever. There has been no vomiting although she has no appetite. Her colostomy is draining as it should. There is some seepage from the lower portion of her abdominal wound but it has been clear. No urinary complaints. No known Covid exposures. The patient apparently does have a lower potassium and, she is going to require IV potassium replacement as she cannot tolerate the oral intake. Her doctors office sent the patient here for care. REVIEW OF SYSTEMS: See HPI for pertinent positives and negatives. A total of ten systems were reviewed and were otherwise negative. PMHx/PSHx: See Below SOCIAL HISTORY: See Below. PHYSICAL EXAM: GENERAL: Patient is in no acute distress. HEENT: No acute trauma, normocephalic atraumatic, mucous membranes moist, no nasal congestion, no scleral icterus. NECK: No stridor, no adenopathy, no meningismus, trachea is midline. LUNGS: Scattered wheezing, diminished breath sounds, no respiratory distress, no crackles. HEART: Without murmurs gallops or rubs, regular rate and rhythm. ABDOMEN: Soft, mildly diffusely tender. There is a midline abdominal incision with ney in place. There is some clear drainage from the lower portion of the wound. A GREGG drain is in position. There is a left-sided colostomy with stool in the bag. EXTREMITIES: No cyanosis. The left leg is edematous. There is some seepage of fluid from the lower portion of the leg. There is some warmth to this leg when compared to the right. Some slight erythema to the left leg around the bandage was noted. NEUROLOGIC: Somnolent, no acute motor or sensory deficits, no focal weakness. SKIN: No rash, no jaundice, no diaphoresis. DIFFERENTIAL DIAGNOSIS: Infection, dehydration, metabolic abnormality, hypo/hyperglycemia, medication reaction, DVT, liver or renal failure, electrolyte disturbance, anemia, hypoxia, cardiac sources, intracerebral event, toxicologic issues, stroke, TIA, as well as other pathologies. EMERGENCY DEPARTMENT COURSE/PROCEDURES: ECG: Indication was weakness. The ECG shows a normal sinus rhythm with low voltage. The rate is 82. There is no PVC, the QTc is 544. There is some T wave inversion anteriorly. Compared to an ECG from 24 December 2020, significant changes have occurred. Continuous Cardiac Monitoring: An order was placed for continuous cardiac monitoring. The monitor shows a rate of 86 with normal sinus rhythm. Critical Care Note: I have personally spent 67 minutes of critical care time in the direct management of this patient. This includes bedside care, interpret ation of diagnostic studies, and testing, discussion with consultants, patient, and family members, and other required patient management activities. This 67 minutes is in excess of all separately billable procedures. MEDICAL DECISION MAKING: There is a mild leukocytosis, the patient has a history of the same findings. There is a low hemoglobin. The patient has been anemic before and, just underwent abdominal surgery. There is a normal platelet count. No coag ulopathy. Potassium is low at 3.1. Magnesium is low at 1.2. No kidney failure. Troponin was elevated at 1.29, consistent with cardiac strain/injury. ECG showed a sinus rhythm with some T wave changes in the anterior leads. These EKG findings were new. No worrisome liver enzyme elevation. Urinalysis did not show obvious infection, ketones were seen. Ammonia level was not elevated. Lactic acid level was not elevated. Covid and influenza testing was negative. Brain CT showed no acute bleed or mass-effect. Chest CT and abdominal CT scans were performed. There was no pneumonia. The patient did have multiple intra- abdominal abscesses consistent with her known history. There is no bowel obstruction. CT scans of the thoracic and lumbar spine were performed, compression fractures were seen, no mention of metastatic lesions. Chest x-ray showed some basilar atelectasis, there was no pneumothorax or CHF. Left leg ultrasound does show a nonocclusive DVT. On exam, the patient was quite somnolent. She did not have any real abdominal discomfort. She was somewhat hypotensive. She was not febrile. The patient received IV Tylenol for pain. She was given IV magnesium, two doses were given IV. She was given IV potassium and IV saline. The patient does not want transfer back to [facility] in [place]. As per her daughter, the patient does not want aggressive measures. The daughter is fairly certain that there is no future abdominal surgery planned. They do not want to do anymore surgical work. Patient is in need of a hospital stay. She requires hydration, electrolyte correction and pain control. Further cardiac work-up is indicated. She will likely need anticoagulation given the DVT findings. I spoke to case management, I did talk to the on-call hospitalist. The patient will be hospitalized at this facility. Past Med/Surg History Medical History (Updated 02/04/21 @ 21:30 by Jeffry Vasquez MD) Adenocarcinoma, lung Adrenal cortical adenoma Anasarca Anxiety Arthritis Biceps tendonitis Cataract COVID-19 virus antibody negative Depression Esophageal dyskinesia Essential hypertriglyceridemia Fatigue Gastritis Gastroesophageal reflux disease History of bronchitis History of diverticulitis Hyperlipidemia Hypomagnesemia Hypothyroidism Intermittent hydrarthrosis of elbow Irritable bowel syndrome Lung cancer NEW DX Metastatic bone cancer radiation treatments completed 08/25/19. Olecranon bursitis Osteoarthritis Osteopenia Pneumonia hx SBO (small bowel obstruction) Sialoadenitis Small bowel obstruction Surgical History History of cataract surgery RT/LEFT History of colonoscopy Dr. Veronica 12/2011 History of dilatation and curettage History of discectomy CERVICAL (GOOD ROM) History of repair of rotator cuff RT History of tooth extraction S/P section X 1 S/P hip replacement left. 07/02/2019. SAB with MAC. no issues. Family History Family/Other Family history of diabetes mellitus Brother Family hx of colon cancer Mother , age 66 Diabetes Cancer ovarian Coronary heart disease had acute LA which led to her Sister Cancer Family/Other Breast cancer Father , age 49 Suicide Alcoholism Social History Smoking Status: Former smoker Tobacco Type: Cigarettes Age Started Using Tobacco: 21; packs per day: 0.5; Cigarettes Per Day: 10; Second Hand Exposure: No; Hx Alcohol Use: Yes Alcohol type: wine Hx Substance Use: Yes Last Used Substance: Hours (ago) Last Used Substance Other:: 12/23/20 Substance Use Type Other:: medicinal Preferred Language: Armenian Communication Ability: Effective Visual Impairment: No Limitations Hearing Ability: Normal Rose Grader Required: No Beliefs That Will Affect Care: None marital status: / Current Living Situation: Family Current Living Situation Comment: grandson lives with her current occupational status: retired current occupation: worked at [employer]) other: 1 daughter Feels Safe at Home: Yes Childhood Exposure to Second-Hand Smoke: Yes (both parents) caffeine: Yes Dental Care, Regularly: No Seatbelt Use: always Assistive Devices: Glasses Allergies Allergies Allergy/AdvReac Type Severity Reaction Status Date / Time nickel Allergy Intermediate Rash Verified 02/04/21 16:11 venlafaxine AdvReac Intermediate Hypertensio Verified 02/04/21 16:11 n,Headache clarithromycin AdvReac Mild Nausea/Vomi Verified 02/04/21 16:11 ting codeine AdvReac Mild UPSET Verified 02/04/21 16:11 STOMACH hydrocodone AdvReac Mild Nausea/Vomi Verified 02/04/21 16:11 ting metronidazole [From Flagyl] AdvReac Mild Gastrointestinal Verified 02/04/21 16:11 Upset Home Meds Home Medications Medication Instructions Recorded Confirmed folic acid 1 mg PO QAM 08/04/19 02/04/21 prochlorperazine maleate 5 mg PO TID PRN 03/12/20 02/04/21 [Compazine] aspirin 81 mg PO DAILY 08/09/20 02/04/21 prednisone 10 mg PO DAILY 12/24/20 02/04/21 oxycodone 5 mg PO DIRECTED PRN 02/04/21 02/04/21 vancomycin 0 mg IV DIRECTED 02/04/21 02/04/21 Previous Rx's Medication Instructions Recorded citalopram 40 mg tablet 40 mg PO QAM #90 tab 01/09/20 magnesium oxide 400 mg PO BID #20 tab 02/29/20 benzonatate 100 mg capsule 100 mg PO TID PRN #60 cap 09/01/20 levothyroxine 100 mcg tablet 100 mcg PO QAM #90 tab 09/03/20 pantoprazole 40 mg tablet,delayed 40 mg PO QAM #90 tab 11/05/20 release lorazepam 0.5 mg tablet 0.5 mg PO Q12H PRN #60 tab 11/25/20 fluconazole 200 mg tablet 200 mg PO Q72H PRN #5 tab 12/29/20 ondansetron HCl 8 mg tablet 8 mg PO Q12H #60 tab 12/29/20 potassium chloride 10 mEq 20 meq PO BID #180 tab 12/29/20 tablet,extended release diazepam 5 mg tablet See Rx Instructions PO .COMPLEX 01/31/21 PRN #30 tab calcitonin (salmon) 200 1 spray INTRANASAL (ALT) DAILY 02/04/21 unit/actuation nasal spray #3.7 ml hydromorphone 2 mg tablet 2 mg PO Q6H #28 tab 02/04/21 torsemide 10 mg tablet 10 mg PO .QOD PRN #20 tab 02/04/21 Results & Data (ED) Vital Signs Vital Signs - 24 hr 02/04/21 15:06 02/04/21 15:10 02/04/21 16:11 Temperature 36.6 C Temperature Source Oral Pulse Rate 80 86 81 Pulse Rate from SpO2 Sensor 80 81 Pulse Rhythm Regular Pulse Strength Normal Respiratory Rate 18 20 18 Respiratory Effort / Characteristics Non-Labored Spontaneous Respiratory Depth Normal Respiratory Pattern Regular Blood Pressure 103/57 L 103/57 L 105/53 L Blood Pressure Mean 72 72 70 Blood Pressure Position Sitting Pulse Oximetry 97 97 99 Oxygen Delivery Method Room Air Oxygen Flow Rate Sepsis Recent Fever Within 48 Hours No Sepsis New/Unexplained Change in Mental Status No Sepsis Action Taken by Nursing No Action Required 02/04/21 16:30 02/04/21 17:31 02/04/21 18:30 Temperature Temperature Source Pulse Rate 81 82 82 Pulse Rate from SpO2 Sensor 80 82 82 Pulse Rhythm Pulse Strength Respiratory Rate 17 20 17 Respiratory Effort / Characteristics Respiratory Depth Respiratory Pattern Blood Pressure 92/56 L 97/52 L 86/50 L Blood Pressure Mean 68 67 62 Blood Pressure Position Pulse Oximetry 100 100 98 Oxygen Delivery Method Oxygen Flow Rate Sepsis Recent Fever Within 48 Hours Sepsis New/Unexplained Change in Mental Status Sepsis Action Taken by Nursing 02/04/21 18:31 02/04/21 19:00 02/04/21 19:30 Temperature Temperature Source Pulse Rate 69 77 76 Pulse Rate from SpO2 Sensor 80 77 76 Pulse Rhythm Pulse Strength Respiratory Rate 16 20 15 Respiratory Effort / Characteristics Respiratory Depth Respiratory Pattern Blood Pressure 103/55 L 90/51 L Blood Pressure Mean 71 64 Blood Pressure Position Pulse Oximetry 97 97 99 Oxygen Delivery Method Nasal Cannula Nasal Cannula Oxygen Flow Rate 3 3 Sepsis Recent Fever Within 48 Hours Sepsis New/Unexplained Change in Mental Status Sepsis Action Taken by Nursing 02/04/21 20:00 02/04/21 20:30 02/04/21 20:31 Temperature Temperature Source Pulse Rate 75 73 73 Pulse Rate from SpO2 Sensor 76 73 73 Pulse Rhythm Pulse Strength Respiratory Rate 18 15 4 L Respiratory Effort / Characteristics Respiratory Depth Respiratory Pattern Blood Pressure 97/56 L 91/55 L Blood Pressure Mean 69 67 Blood Pressure Position Pulse Oximetry 99 100 100 Oxygen Delivery Method Nasal Cannula Nasal Cannula Oxygen Flow Rate 3 3 Sepsis Recent Fever Within 48 Hours Sepsis New/Unexplained Change in Mental Status Sepsis Action Taken by Nursing 02/04/21 20:40 02/04/21 20:50 Temperature Temperature Source Pulse Rate 74 73 Pulse Rate from SpO2 Sensor 74 73 Pulse Rhythm Pulse Strength Respiratory Rate 19 14 Respiratory Effort / Characteristics Respiratory Depth Respiratory Pattern Blood Pressure Blood Pressure Mean Blood Pressure Position Pulse Oximetry 100 100 Oxygen Delivery Method Oxygen Flow Rate Sepsis Recent Fever Within 48 Hours Sepsis New/Unexplained Change in Mental Status Sepsis Action Taken by Longterm Medications Current Medication List: was personally reviewed by me Laboratory Data Attestation: I reviewed the patient's lab results. Result diagrams: 02/04/21 15:05 02/04/21 15:05 Lab Results 02/04/21 02/04/21 02/04/21 Range/Units 15:05 15:05 15:05 WBC 12.91 H (4.8-10.8) K/uL RBC 2.55 L (4.2-5.4) M/uL Hgb 7.7 L (12.0-16.0) g/dL Hct 24.7 L (37-47) % MCV 96.9 (80-100) fL MCH 30.2 (25-34) pg MCHC 31.2 L (32-36) g/dL RDW Std Deviation 52.4 H (36.4-46.3) fL RDW Coeff of Raymundo 14.9 H (11.5-14.5) % Plt Count 335 (130-400) K/uL MPV 9.2 (7.4-10.4) fL Immature Gran % (Auto) 0.7 % Neut % (Auto) 78.6 % Lymph % (Auto) 6.3 % [place] % (Auto) 12.9 % Eos % (Auto) 1.1 % Baso % (Auto) 0.4 % Neut # (Auto) 10.16 H (1.4-6.5) K/uL Lymph # (Auto) 0.81 L (1.2-3.4) K/uL [place] # (Auto) 1.66 H (0.11-0.59) K/uL Eos # (Auto) 0.14 (0-0.5) K/uL Baso # (Auto) 0.05 (0-0.2) K/uL Immature Gran # (Auto) 0.09 H (0.00-0.02) K/uL Polychromasia 1+ PT (9.0-12.0) Seconds INR (0.9-1.1) APTT (21.0-31.0) Seconds PTT Ratio Sodium 136 (136-145) mmol/L Potassium 3.1 L (3.5-5.1) mmol/L Chloride 96 L (98-107) mmol/L Carbon Dioxide 35 H (21-32) mmol/L Anion Gap 5.0 (3-11) BUN 16 D (7-18) mg/dl Creatinine 1.11 D (0.6-1.2) mg/dl Est Cr Clr Drug Dosing 34.6 ml/min Est GFR ( Amer) 55.1 Est GFR (Non-Af Amer) 47.5 BUN/Creatinine Ratio 14.6 (10-20) Glucose 96 (70-99) mg/dl Lactate (0.4-2.0) mmol/L Calcium 8.3 L (8.5-10.1) mg/dl Magnesium 1.2 L (1.8-2.4) mg/dl Total Bilirubin 0.2 (0.2-1) mg/dl AST 32 (15-37) U/L ALT 7 L (12-78) U/L Alkaline Phosphatase 91 (45-117) U/L Ammonia (11-32) umol/L Troponin I 1.290 H* (0-0.045) ng/ml Total Protein 5.4 L (6.4-8.2) gm/dl Albumin 1.4 L (3.4-5.0) gm/dl Globulin 4.0 (2.5-4.0) gm/dl Albumin/Globulin Ratio 0.3 L (0.9-2) Urine Color Urine Appearance (Clear) Urine pH (4.5-7.5) Ur Specific [place] (1.000-1.030) Urine Protein (Negative) Urine Glucose (UA) (Negative) Urine Ketones (Negative) Urine Blood (Negative) Urine Nitrite (Negative) Urine Bilirubin (Negative) Urine Urobilinogen (Negative) Ur Leukocyte Esterase (Negative) COVID-19 Eval Order SARS-CoV-2 (PCR) (Negative) Influenza Type A (PCR) (Neg) Influenza Type B (PCR) (Neg) RSV (RT-PCR) (Neg) 02/04/21 02/04/21 02/04/21 Range/Units 17:02 17:02 17:02 WBC (4.8-10.8) K/uL RBC (4.2-5.4) M/uL Hgb (12.0-16.0) g/dL Hct (37-47) % MCV (80-100) fL MCH (25-34) pg MCHC (32-36) g/dL RDW Std Deviation (36.4-46.3) fL RDW Coeff of Raymundo (11.5-14.5) % Plt Count (130-400) K/uL MPV (7.4-10.4) fL Immature Gran % (Auto) % Neut % (Auto) % Lymph % (Auto) % [place] % (Auto) % Eos % (Auto) % Baso % (Auto) % Neut # (Auto) (1.4-6.5) K/uL Lymph # (Auto) (1.2-3.4) K/uL [place] # (Auto) (0.11-0.59) K/uL Eos # (Auto) (0-0.5) K/uL Baso # (Auto) (0-0.2) K/uL Immature Gran # (Auto) (0.00-0.02) K/uL Polychromasia PT 10.4 (9.0-12.0) Seconds INR 1.0 (0.9-1.1) APTT 27.9 (21.0-31.0) Seconds PTT Ratio 1.1 Sodium (136-145) mmol/L Potassium (3.5-5.1) mmol/L Chloride (98-107) mmol/L Carbon Dioxide (21-32) mmol/L Anion Gap (3-11) BUN (7-18) mg/dl Creatinine (0.6-1.2) mg/dl Est Cr Clr Drug Dosing ml/min Est GFR ( Amer) Est GFR (Non-Af Amer) BUN/Creatinine Ratio (10-20) Glucose (70-99) mg/dl Lactate 1.1 (0.4-2.0) mmol/L Calcium (8.5-10.1) mg/dl Magnesium (1.8-2.4) mg/dl Total Bilirubin (0.2-1) mg/dl AST (15-37) U/L ALT (12-78) U/L Alkaline Phosphatase (45-117) U/L Ammonia 18.4 (11-32) umol/L Troponin I (0-0.045) ng/ml Total Protein (6.4-8.2) gm/dl Albumin (3.4-5.0) gm/dl Globulin (2.5-4.0) gm/dl Albumin/Globulin Ratio (0.9-2) Urine Color Urine Appearance (Clear) Urine pH (4.5-7.5) Ur Specific [place] (1.000-1.030) Urine Protein (Negative) Urine Glucose (UA) (Negative) Urine Ketones (Negative) Urine Blood (Negative) Urine Nitrite (Negative) Urine Bilirubin (Negative) Urine Urobilinogen (Negative) Ur Leukocyte Esterase (Negative) COVID-19 Eval Order SARS-CoV-2 (PCR) (Negative) Influenza Type A (PCR) (Neg) Influenza Type B (PCR) (Neg) RSV (RT-PCR) (Neg) 02/04/21 02/04/21 02/04/21 Range/Units 17:07 17:07 20:27 WBC (4.8-10.8) K/uL RBC (4.2-5.4) M/uL Hgb (12.0-16.0) g/dL Hct (37-47) % MCV (80-100) fL MCH (25-34) pg MCHC (32-36) g/dL RDW Std Deviation (36.4-46.3) fL RDW Coeff of Raymundo (11.5-14.5) % Plt Count (130-400) K/uL MPV (7.4-10.4) fL Immature Gran % (Auto) % Neut % (Auto) % Lymph % (Auto) % [place] % (Auto) % Eos % (Auto) % Baso % (Auto) % Neut # (Auto) (1.4-6.5) K/uL Lymph # (Auto) (1.2-3.4) K/uL [place] # (Auto) (0.11-0.59) K/uL Eos # (Auto) (0-0.5) K/uL Baso # (Auto) (0-0.2) K/uL Immature Gran # (Auto) (0.00-0.02) K/uL Polychromasia PT (9.0-12.0) Seconds INR (0.9-1.1) APTT (21.0-31.0) Seconds PTT Ratio Sodium (136-145) mmol/L Potassium (3.5-5.1) mmol/L Chloride (98-107) mmol/L Carbon Dioxide (21-32) mmol/L Anion Gap (3-11) BUN (7-18) mg/dl Creatinine (0.6-1.2) mg/dl Est Cr Clr Drug Dosing ml/min Est GFR ( Amer) Est GFR (Non-Af Amer) BUN/Creatinine Ratio (10-20) Glucose (70-99) mg/dl Lactate (0.4-2.0) mmol/L Calcium (8.5-10.1) mg/dl Magnesium (1.8-2.4) mg/dl Total Bilirubin (0.2-1) mg/dl AST (15-37) U/L ALT (12-78) U/L Alkaline Phosphatase (45-117) U/L Ammonia (11-32) umol/L Troponin I (0-0.045) ng/ml Total Protein (6.4-8.2) gm/dl Albumin (3.4-5.0) gm/dl Globulin (2.5-4.0) gm/dl Albumin/Globulin Ratio (0.9-2) Urine Color Dark Yellow Urine Appearance Turbid A (Clear) Urine pH 5.5 (4.5-7.5) Ur Specific [place] 1.036 H (1.000-1.030) Urine Protein 2+ H (Negative) Urine Glucose (UA) Negative (Negative) Urine Ketones 1+ H (Negative) Urine Blood Negative (Negative) Urine Nitrite Negative (Negative) Urine Bilirubin 1+ H (Negative) Urine Urobilinogen Negative (Negative) Ur Leukocyte Esterase Trace H (Negative) COVID-19 Eval Order [facility]sv at [facility] SARS-CoV-2 (PCR) NEGATIVE (Negative) Influenza Type A (PCR) Negative (Neg) Influenza Type B (PCR) Negative (Neg) RSV (RT-PCR) Negative (Neg) Administered Medications Discontinued Medications Sodium Chloride (Nss 1000ml) 500 mls @ 999 mls/hr IV .Q31M ONE Stop: 02/04/21 16:42 Last Infusion: 02/04/21 19:37 Dose: 0 mls/hr Documented by: [id number] Admin: 02/04/21 18:35 Dose: 999 mls/hr Documented by: [id number] Potassium Chloride (K Jamie / Wtr) 10 meq in 100 mls @ 100 mls/hr IV ONE ONE Stop: 02/04/21 17:20 Last Infusion: 02/04/21 19:36 Dose: 100 mls/hr Documented by: [id number] Admin: 02/04/21 18:35 Dose: 100 mls/hr Documented by: [id number] Magnesium Sulfate/Dextrose (Magnesium Sulfate / D5w) 1 gm in 100 mls @ 100 mls/hr IV NOW STA Stop: 02/04/21 18:50 Last Infusion: 02/04/21 19:36 Dose: 100 mls/hr Documented by: [id number] Admin: 02/04/21 18:35 Dose: 100 mls/hr Documented by: [id number] Magnesium Sulfate/Dextrose (Magnesium Sulfate / D5w) 1 gm in 100 mls @ 100 mls/hr IV NOW STA Stop: 02/04/21 18:51 Last Infusion: 02/04/21 20:45 Dose: 0 mls/hr Documented by: [id number] Admin: 02/04/21 19:35 Dose: 100 mls/hr Documented by: [id number] Acetaminophen (Ofirmev) 1,000 mg in 100 mls @ 400 mls/hr IV NOW STA Stop: 02/04/21 18:51 Last Infusion: 02/04/21 19:39 Dose: 0 mls/hr Documented by: [id number] Admin: 02/04/21 19:13 Dose: 400 mls/hr Documented by: [id number] Ioversol (Optiray 300 100ml) 89 ml IV ONCE ONE Stop: 02/04/21 17:51 Last Admin: 02/04/21 17:50 Dose: 89 ml Documented by: [id number] Imaging Data Radiologist's Impression: Chest X-Ray 02/04/21 16:12 SINGLE VIEW CHEST CLINICAL HISTORY: Dyspnea. FINDINGS: An AP, portable, upright chest radiograph is compared to chest x-ray d ated 02/04/2021 and correlated with chest CT dated 03/12/2020. The examination is degraded by portable technique and patient rotation. A left subclavian central venous infusion port is unchanged in position. The heart is top normal in size noting atherosclerotic calcification of the thoracic aorta. The pulmonary vasculature is noncongested. Advanced emphysema and chronic interstitial thickening are similar to previous. There is a small left pleural effusion with left basilar consolidation. Scarring/atelectasis is noted at the right lung base. No pneumothorax is seen. The skeletal structures are osteopenic. The bony thorax is grossly intact. Surgical clips are seen in the right lower neck. IMPRESSION: 1. Cardiomegaly and advanced emphysema. 2. There is airspace consolidation at the left lung base with a small left pleural effusion. Correlate clinically for evidence of pneumonia/aspiration pneumonitis. Radiographic follow-up to resolution is recommended. ACT 112: Negative or not required by law. Electronically signed by: Jeffry Sotomayor M.D. 02/04/2021 4:44 PM Abdomen/Pelvis CT 02/04/21 16:17 CT SCAN OF THE CHEST, ABDOMEN, AND PELVIS WITH IV CONTRAST; CT SCAN OF THE THORACIC SPINE WITHOUT IV CONTRAST; CT SCAN OF THE LUMBAR SPINE WITHOUT IV CONTRAST CLINICAL HISTORY: Lethargy. Lung cancer. Thoracic and lumbar back pain. COMPARISON STUDY: Chest CT dated 03/12/2020. Abdominal CT dated 01/15/2021. PET/CT dated 07/28/2020. TECHNIQUE: Following the IV administration of 89 of Optiray 300, CT scan of the chest, abdomen, and pelvis was performed from the thoracic inlet to the proximal femora. Images are reviewed in the axial, sagittal, and coronal planes. IV c ontrast was administered without complication. Additionally, unenhanced CT scan of the thoracic spine is performed from the lower cervical spine to the upper lumbar spine and unenhanced CT scan of lumbar spine is performed from the lower thoracic spine to the sacrum. The thoracic and lumbar spinal CT scans are reviewed in the axial, sagittal, and coronal planes. IV contrast was not administered specifically for the spinal CTs. A dose lowering technique was utilized adhering to the principles of ALARA. The examination is degraded by motion artifact, as well as by streak artifact from the arms which could not be elevated above the chest or abdomen. CT DOSE: 1200.32 mGy.cm FINDINGS: CHEST: Thyroid: Imaged portions of the thyroid gland are normal in size and attenuation. Thoracic aorta: There is atherosclerotic calcification of the thoracic aorta, which is normal in caliber and demonstrates standard 3-vessel arch anatomy. No dissection is seen. There is at least moderate stenosis of the proximal left subclavian artery. Pulmonary vasculature: The pulmonary trunk is normal in caliber. There are no filling defects identified in the central pulmonary vessels to indicate pulmonary embolus. Note that this examination was not protocoled for evaluation of the pulmonary arteries. Heart: A left subclavian central venous infusion port is in place. The heart is normal in size noting trace pericardial effusion. The coronary arteries are densely calcified. Lungs and pleural spaces: Emphysematous change is noted. The trachea and central airways are clear. There are trace pleural effusions with bibasilar scarring/atelectasis. There is no airspace consolidation typical for pneumonia or pneumothorax. Is only minimal residual right perihilar nodularity at the site of the previously treated mass lesion. This measures up to 1.4 cm as seen on image #179. No new pulmonary lesion is identified. Mediastinum: There is no mediastinal lymphadenopathy. Noy: Clear. Axillae: There is no axillary lymphadenopathy. Bony thorax: The skeletal structures are osteopenic. See below for dedicated assessment of the thoracic spine. No lytic or blastic lesions are identified. THORACIC SPINE: There is a superior endplate compression deformity of T10 with [id number] loss of height. This is new from recent prior examinations. There are minimal superior endplate compression deformities in the mid to upper thoracic region. The transverse and spinous processes are intact. The disc spaces are preserved. There is no evidence of large disc herniation or high-grade central canal stenosis by CT. The paraspinous soft tissues are normal in appearance. Soft tissues: There is body wall edema. ABDOMEN AND PELVIS: Liver: The contrast-enhanced liver is normal in size, contour, and attenuation. There is no intrahepatic biliary ductal dilatation. The hepatic veins and portal veins are patent. Gallbladder: Unremarkable. Spleen: Normal in size and attenuation. There are calcified splenic granulomas. Pancreas: Mildly atrophic and grossly unremarkable. Adrenal glands: A 2 cm left adrenal nodule is unchanged from prior studies. The right adrenal gland is normal in appearance. Kidneys: The contrast enhanced kidneys demonstrate mild cortical atrophy. There is mild left-sided hydroureteronephrosis. No hydronephrosis is seen on the right. The kidneys enhance symmetrically. Small renal cysts measure up to 2 cm. Additional subcentimeter cortical hypodensities also likely represent cysts but are too small for definitive characterization. Abdominal vasculature: The abdominal aorta is normal in course and caliber noting advanced atherosclerotic calcification. Bowel: There is postoperative change of distal colonic resection with left lower quadrant colostomy. No bowel obstruction is seen. A rectal stump is noted in the pelvis. The appendix is not identified and reported surgically absent. Peritoneum: No intraperitoneal free air is identified. Midline skin clips are noted. There is a 4.7 x 6.2 x 1.8 cm fluid collection identified within the subcutaneous fat surrounding the ostomy, best seen on axial image #225. A surgical drain is present in the left pelvis from a ventral pelvic approach. There are multiple loculated fluid collections identified throughout the pelvis. The largest is located along the left pelvic sidewall seen on image #314. This measures 4.4 x 3.9 x 3.0 cm. A collection in the right presacral region measures 3.5 x 6.7 x 2.5 cm as seen on image #295. A serpiginous collection the right ventral pelvis on image #302 measures approximately 4 x 1 cm. Lymphadenopathy: None. Pelvic viscera: Evaluation of the pelvis is degraded by streak artifact from a left hip arthroplasty. The bladder wall is circumferentially thickened is pericystic inflammation. There are calcified uterine fibroids. Skeletal structures: The skeletal structures are osteopenic. See below for dedicated assessment of the lumbar spine. No lytic or blastic lesions are seen. A left hip arthroplasty is in place. The bony pelvis and proximal femora appear intact. LUMBAR SPINE: There are compression deformities of L1, L2, L3, and L4. There is mild/moderate loss of height at L1 with mild loss of height at L2 and L3. Minimal loss of height is seen at L4. The L1 compression deformity is new from 01/15/2021 and likely acute to subacute. Interval superior endplate compression deformity of L4 is also new from previous. The L2 and L3 compression deformities are unchanged. The transverse and spinous processes are intact. There is no evidence of spondylolysis. There is moderate to advanced disc space narrowing at L5 5 to S1. The remaining disc spaces appear maintained. There is no evidence of large disc herniation or high-grade stenosis by CT. There is fatty atrophy of the paraspinous musculature. IMPRESSION: 1. Emphysema. 2. There are trace pleural effusions with bibasilar scarring/atelectasis. No airspace consolidation is seen typical for pneumonia. 3. There is only minimal residual nodularity/scarring in the right perihilar region at the site of the previously characterized mass lesion. 4. There is postoperative change of distal colon resection with left lower quadrant colostomy. 5. There is no bowel obstruction. 6. There is a loculated fluid collection within the subcutaneous fat around the ostomy site. This could represent seroma versus abscess and clinical correlation will be required. 7. A surgical drain is present in the left pelvis. 8. There are numerous loculated fluid collections in the pelvis as detailed above typical for abscesses. 9. There are compression deformities of T10, L1, and L4 as detailed above. These are new from recent prior studies and likely acute to subacute. Correlate for point tenderness. 10. Additional thoracolumbar compression deformities are chronic. 11. An indeterminant left adrenal nodule is similar to prior studies. 12. The bladder wall appears thickened and there is pericystic inflammation. Correlate clinically and with urinalysis for evidence of cystitis. 13. There is body wall edema. 14. Mild left hydronephrosis is likely related to the inflammatory process in the left pelvis. 15. Additional findings as above. ACT 112: Negative or not required by law. Electronically signed by: Jeffry Sotomayor M.D. 02/04/2021 7:[address] 02/04/21 16:17 CT SCAN OF THE CHEST, ABDOMEN, AND PELVIS WITH IV CONTRAST; CT SCAN OF THE THORACIC SPINE WITHOUT IV CONTRAST; CT SCAN OF THE LUMBAR SPINE WITHOUT IV CONTRAST CLINICAL HISTORY: Lethargy. Lung cancer. Thoracic and lumbar back pain. COMPARISON STUDY: Chest CT dated 03/12/2020. Abdominal CT dated 01/15/2021. PET/CT dated 07/28/2020. TECHNIQUE: Following the IV administration of 89 of Optiray 300, CT scan of the chest, abdomen, and pelvis was performed from the thoracic inlet to the proximal femora. Images are reviewed in the axial, sagittal, and coronal planes. IV co ntrast was administered without complication. Additionally, unenhanced CT scan of the thoracic spine is performed from the lower cervical spine to the upper lumbar spine and unenhanced CT scan of lumbar spine is performed from the lower thoracic spine to the sacrum. The thoracic and lumbar spinal CT scans are reviewed in the axial, sagittal, and coronal planes. IV contrast was not administered specifically for the spinal CTs. A dose lowering technique was utilized adhering to the principles of ALARA. The examination is degraded by motion artifact, as well as by streak artifact from the arms which could not be elevated above the chest or abdomen. CT DOSE: 1200.32 mGy.cm FINDINGS: CHEST: Thyroid: Imaged portions of the thyroid gland are normal in size and attenuation. Thoracic aorta: There is atherosclerotic calcification of the thoracic aorta, which is normal in caliber and demonstrates standard 3-vessel arch anatomy. No dissection is seen. There is at least moderate stenosis of the proximal left subclavian artery. Pulmonary vasculature: The pulmonary trunk is normal in caliber. There are no filling defects identified in the central pulmonary vessels to indicate pulmonary embolus. Note that this examination was not protocoled for evaluation of the pulmonary arteries. Heart: A left subclavian central venous infusion port is in place. The heart is normal in size noting trace pericardial effusion. The coronary arteries are densely calcified. Lungs and pleural spaces: Emphysematous change is noted. The trachea and central airways are clear. There are trace pleural effusions with bibasilar scarring/atelectasis. There is no airspace consolidation typical for pneumonia o r pneumothorax. Is only minimal residual right perihilar nodularity at the site of the previously treated mass lesion. This measures up to 1.4 cm as seen on image #179. No new pulmonary lesion is identified. Mediastinum: There is no mediastinal lymphadenopathy. Noy: Clear. Axillae: There is no axillary lymphadenopathy. Bony thorax: The skeletal structures are osteopenic. See below for dedicated assessment of the thoracic spine. No lytic or blastic lesions are identified. THORACIC SPINE: There is a superior endplate compression deformity of T10 with [id number] loss of height. This is new from recent prior examinations. There are minimal superior endplate compression deformities in the mid to upper thoracic region. The transverse and spinous processes are intact. The disc spaces are preserved. There is no evidence of large disc herniation or high- grade central canal stenosis by CT. The paraspinous soft tissues are normal in appearance. Soft tissues: There is body wall edema. ABDOMEN AND PELVIS: Liver: The contrast-enhanced liver is normal in size, contour, and attenuation. There is no intrahepatic biliary ductal dilatation. The hepatic veins and portal veins are patent. Gallbladder: Unremarkable. Spleen: Normal in size and attenuation. There are calcified splenic granulomas. Pancreas: Mildly atrophic and grossly unremarkable. Adrenal glands: A 2 cm left adrenal nodule is unchanged from prior studies. The right adrenal gland is normal in appearance. Kidneys: The contrast enhanced kidneys demonstrate mild cortical atrophy. There is mild left-sided hydroureteronephrosis. No hydronephrosis is seen on the right. The kidneys enhance symmetrically. Small renal cysts measure up to 2 cm. Additional subcentimeter cortical hypodensities also likely represent cysts but are too small for definitive characterization. Abdominal vasculature: The abdominal aorta is normal in course and caliber noting advanced atherosclerotic calcification. Bowel: There is postoperative change of distal colonic resection with left lower quadrant colostomy. No bowel obstruction is seen. A rectal stump is noted in the pelvis. The appendix is not identified and reported surgically absent. Peritoneum: No intraperitoneal free air is identified. Midline skin clips are noted. There is a 4.7 x 6.2 x 1.8 cm fluid collection identified within the subcutaneous fat surrounding the ostomy, best seen on axial image #225. A surgical drain is present in the left pelvis from a ventral pelvic approach. There are multiple loculated fluid collections identified throughout the pelvis. The largest is located along the left pelvic sidewall seen on image #314. This measures 4.4 x 3.9 x 3.0 cm. A collection in the right presacral region measures 3.5 x 6.7 x 2.5 cm as seen on image #295. A serpiginous collection the right ventral pelvis on image #302 measures approximately 4 x 1 cm. Lymphadenopathy: None. Pelvic viscera: Evaluation of the pelvis is degraded by streak artifact from a left hip arthroplasty. The bladder wall is circumferentially thickened is pericystic inflammation. There are calcified uterine fibroids. Skeletal structures: The skeletal structures are osteopenic. See below for dedicated assessment of the lumbar spine. No lytic or blastic lesions are seen. A left hip arthroplasty is in place. The bony pelvis and proximal femora appear intact. LUMBAR SPINE: There are compression deformities of L1, L2, L3, and L4. There is mild/moderate loss of height at L1 with mild loss of height at L2 and L3. Minimal loss of height is seen at L4. The L1 compression deformity is new from 01/15/2021 and likely acute to subacute. Interval superior endplate compression deformity of L4 is also new from previous. The L2 and L3 compression deformities are unchanged. The transverse and spinous processes are intact. There is no evidence of spondylolysis. There is moderate to advanced disc space narrowing at L5 5 to S1. The remaining disc spaces appear maintained. There is no evidence of large disc herniation or high-grade stenosis by CT. There is fatty atrophy of the paraspinous musculature. IMPRESSION: 1. Emphysema. 2. There are trace pleural effusions with bibasilar scarring/atelectasis. No airspace consolidation is seen typical for pneumonia. 3. There is only minimal residual nodularity/scarring in the right perihilar region at the site of the previously characterized mass lesion. 4. There is postoperative change of distal colon resection with left lower quadrant colostomy. 5. There is no bowel obstruction. 6. There is a loculated fluid collection within the subcutaneous fat around the ostomy site. This could represent seroma versus abscess and clinical correlation will be required. 7. A surgical drain is present in the left pelvis. 8. There are numerous loculated fluid collections in the pelvis as detailed above typical for abscesses. 9. There are compression deformities of T10, L1, and L4 as detailed above. These are new from recent prior studies and likely acute to subacute. Correlate for point tenderness. 10. Additional thoracolumbar compression deformities are chronic. 11. An indeterminant left adrenal nodule is similar to prior studies. 12. The bladder wall appears thickened and there is pericystic inflammation. Correlate clinically and with urinalysis for evidence of cystitis. 13. There is body wall edema. 14. Mild left hydronephrosis is likely related to the inflammatory process in the left pelvis. 15. Additional findings as above. ACT 112: Negative or not required by law. Electronically signed by: Jeffry Sotomayor M.D. 02/04/2021 7:[address] 02/04/21 16:17 CT SCAN OF THE CHEST, ABDOMEN, AND PELVIS WITH IV CONTRAST; CT SCAN OF THE THORACIC SPINE WITHOUT IV CONTRAST; CT SCAN OF THE LUMBAR SPINE WITHOUT IV CONTRAST CLINICAL HISTORY: Lethargy. Lung cancer. Thoracic and lumbar back pain. COMPARISON STUDY: Chest CT dated 03/12/2020. Abdominal CT dated 01/15/2021. PET/CT dated 07/28/2020. TECHNIQUE: Following the IV administration of 89 of Optiray 300, CT scan of the chest, abdomen, and pelvis was performed from the thoracic inlet to the proximal femora. Images are reviewed in the axial, sagittal, and coronal planes. IV c ontrast was administered without complication. Additionally, unenhanced CT scan of the thoracic spine is performed from the lower cervical spine to the upper lumbar spine and unenhanced CT scan of lumbar spine is performed from the lower thoracic spine to the sacrum. The thoracic and lumbar spinal CT scans are reviewed in the axial, sagittal, and coronal planes. IV contrast was not administered specifically for the spinal CTs. A dose lowering technique was utilized adhering to the principles of ALARA. The examination is degraded by motion artifact, as well as by streak artifact from the arms which could not be elevated above the chest or abdomen. CT DOSE: 1200.32 mGy.cm FINDINGS: CHEST: Thyroid: Imaged portions of the thyroid gland are normal in size and attenuation. Thoracic aorta: There is atherosclerotic calcification of the thoracic aorta, which is normal in caliber and demonstrates standard 3-vessel arch anatomy. No dissection is seen. There is at least moderate stenosis of the proximal left subclavian artery. Pulmonary vasculature: The pulmonary trunk is normal in caliber. There are no filling defects identified in the central pulmonary vessels to indicate pulmonary embolus. Note that this examination was not protocoled for evaluation of the pulmonary arteries. Heart: A left subclavian central venous infusion port is in place. The heart is normal in size noting trace pericardial effusion. The coronary arteries are densely calcified. Lungs and pleural spaces: Emphysematous change is noted. The trachea and central airways are clear. There are trace pleural effusions with bibasilar scarring/atelectasis. There is no airspace consolidation typical for pneumonia or pneumothorax. Is only minimal residual right perihilar nodularity at the site of the previously treated mass lesion. This measures up to 1.4 cm as seen on image #179. No new pulmonary lesion is identified. Mediastinum: There is no mediastinal lymphadenopathy. Noy: Clear. Axillae: There is no axillary lymphadenopathy. Bony thorax: The skeletal structures are osteopenic. See below for dedicated assessment of the thoracic spine. No lytic or blastic lesions are identified. THORACIC SPINE: There is a superior endplate compression deformity of T10 with [id number] loss of height. This is new from recent prior examinations. There are minimal superior endplate compression deformities in the mid to upper thoracic region. The transverse and spinous processes are intact. The disc spaces are preserved. There is no evidence of large disc herniation or high-grade central canal stenosis by CT. The paraspinous soft tissues are normal in appearance. Soft tissues: There is body wall edema. ABDOMEN AND PELVIS: Liver: The contrast-enhanced liver is normal in size, contour, and attenuation. There is no intrahepatic biliary ductal dilatation. The hepatic veins and portal veins are patent. Gallbladder: Unremarkable. Spleen: Normal in size and attenuation. There are calcified splenic granulomas. Pancreas: Mildly atrophic and grossly unremarkable. Adrenal glands: A 2 cm left adrenal nodule is unchanged from prior studies. The right adrenal gland is normal in appearance. Kidneys: The contrast enhanced kidneys demonstrate mild cortical atrophy. There is mild left-sided hydroureteronephrosis. No hydronephrosis is seen on the right. The kidneys enhance symmetrically. Small renal cysts measure up to 2 cm. Additional subcentimeter cortical hypodensities also likely represent cysts but are too small for definitive characterization. Abdominal vasculature: The abdominal aorta is normal in course and caliber noting advanced atherosclerotic calcification. Bowel: There is postoperative change of distal colonic resection with left lower quadrant colostomy. No bowel obstruction is seen. A rectal stump is noted in the pelvis. The appendix is not identified and reported surgically absent. Peritoneum: No intraperitoneal free air is identified. Midline skin clips are noted. There is a 4.7 x 6.2 x 1.8 cm fluid collection identified within the subcutaneous fat surrounding the ostomy, best seen on axial image #225. A surgical drain is present in the left pelvis from a ventral pelvic approach. There are multiple loculated fluid collections identified throughout the pelvis. The largest is located along the left pelvic sidewall seen on image #314. This measures 4.4 x 3.9 x 3.0 cm. A collection in the right presacral region measures 3.5 x 6.7 x 2.5 cm as seen on image #295. A serpiginous collection the right ventral pelvis on image #302 measures approximately 4 x 1 cm. Lymphadenopathy: None. Pelvic viscera: Evaluation of the pelvis is degraded by streak artifact from a left hip arthroplasty. The bladder wall is circumferentially thickened is pericystic inflammation. There are calcified uterine fibroids. Skeletal structures: The skeletal structures are osteopenic. See below for dedicated assessment of the lumbar spine. No lytic or blastic lesions are seen. A left hip arthroplasty is in place. The bony pelvis and proximal femora appear intact. LUMBAR SPINE: There are compression deformities of L1, L2, L3, and L4. There is mild/moderate loss of height at L1 with mild loss of height at L2 and L3. Minimal loss of height is seen at L4. The L1 compression deformity is new from 01/15/2021 and likely acute to subacute. Interval superior endplate compression deformity of L4 is also new from previous. The L2 and L3 compression deformities are unchanged. The transverse and spinous processes are intact. There is no evidence of spondylolysis. There is moderate to advanced disc space narrowing at L5 5 to S1. The remaining disc spaces appear maintained. There is no evidence of large disc herniation or high-grade stenosis by CT. There is fatty atrophy of the paraspinous musculature. IMPRESSION: 1. Emphysema. 2. There are trace pleural effusions with bibasilar scarring/atelectasis. No airspace consolidation is seen typical for pneumonia. 3. There is only minimal residual nodularity/scarring in the right perihilar region at the site of the previously characterized mass lesion. 4. There is postoperative change of distal colon resection with left lower quadrant colostomy. 5. There is no bowel obstruction. 6. There is a loculated fluid collection within the subcutaneous fat around the ostomy site. This could represent seroma versus abscess and clinical correlation will be required. 7. A surgical drain is present in the left pelvis. 8. There are numerous loculated fluid collections in the pelvis as detailed above typical for abscesses. 9. There are compression deformities of T10, L1, and L4 as detailed above. These are new from recent prior studies and likely acute to subacute. Correlate for point tenderness. 10. Additional thoracolumbar compression deformities are chronic. 11. An indeterminant left adrenal nodule is similar to prior studies. 12. The bladder wall appears thickened and there is pericystic inflammation. Correlate clinically and with urinalysis for evidence of cystitis. 13. There is body wall edema. 14. Mild left hydronephrosis is likely related to the inflammatory process in the left pelvis. 15. Additional findings as above. ACT 112: Negative or not required by law. Electronically signed by: Jeffry Sotomayor M.D. 02/04/2021 7:[address] 02/04/21 16:27 CT SCAN OF THE CHEST, ABDOMEN, AND PELVIS WITH IV CONTRAST; CT SCAN OF THE THORACIC SPINE WITHOUT IV CONTRAST; CT SCAN OF THE LUMBAR SPINE WITHOUT IV CONT RAST CLINICAL HISTORY: Lethargy. Lung cancer. Thoracic and lumbar back pain. COMPARISON STUDY: Chest CT dated 03/12/2020. Abdominal CT dated 01/15/2021. PET/CT dated 07/28/2020. TECHNIQUE: Following the IV administration of 89 of Optiray 300, CT scan of the chest, abdomen, and pelvis was performed from the thoracic inlet to the proximal femora. Images are reviewed in the axial, sagittal, and coronal planes. IV contrast was administered without complication. Additionally, unenhanced CT scan of the thoracic spine is performed from the lower cervical spine to the upper lumbar spine and unenhanced CT scan of lumbar spine is performed from the lower thoracic spine to the sacrum. The thoracic and lumbar spinal CT scans are reviewed in the axial, sagittal, and coronal planes. IV contrast was not administered specifically for the spinal CTs. A dose lowering technique was utilized adhering to the principles of ALARA. The examination is degraded by motion artifact, as well as by streak artifact from the arms which could not be elevated above the chest or abdomen. CT DOSE: 1200.32 mGy.cm FINDINGS: CHEST: Thyroid: Imaged portions of the thyroid gland are normal in size and attenuation. Thoracic aorta: There is atherosclerotic calcification of the thoracic aorta, which is normal in caliber and demonstrates standard 3-vessel arch anatomy. No dissection is seen. There is at least moderate stenosis of the proximal left subclavian artery. Pulmonary vasculature: The pulmonary trunk is normal in caliber. There are no filling defects identified in the central pulmonary vessels to indicate pulmonary embolus. Note that this examination was not protocoled for evaluation of the pulmonary arteries. Heart: A left subclavian central venous infusion port is in place. The heart is normal in size noting trace pericardial effusion. The coronary arteries are densely calcified. Lungs and pleural spaces: Emphysematous change is noted. The trachea and central airways are clear. There are trace pleural effusions with bibasilar scarring/atelectasis. There is no airspace consolidation typical for pneumonia or pneumothorax. Is only minimal residual right perihilar nodularity at the site of the previously treated mass lesion. This measures up to 1.4 cm as seen on image #179. No new pulmonary lesion is identified. Mediastinum: There is no mediastinal lymphadenopathy. Noy: Clear. Axillae: There is no axillary lymphadenopathy. Bony thorax: The skeletal structures are osteopenic. See below for dedicated assessment of the thoracic spine. No lytic or blastic lesions are identified. THORACIC SPINE: There is a superior endplate compression deformity of T10 with [id number] loss of height. This is new from recent prior examinations. There are minimal superior endplate compression deformities in the mid to upper thoracic region. The transverse and spinous processes are intact. The disc spaces are preserved. There is no evidence of large disc herniation or high- grade central canal stenosis by CT. The paraspinous soft tissues are normal in appearance. Soft tissues: There is body wall edema. ABDOMEN AND PELVIS: Liver: The contrast-enhanced liver is normal in size, contour, and attenuation. There is no intrahepatic biliary ductal dilatation. The hepatic veins and portal veins are patent. Gallbladder: Unremarkable. Spleen: Normal in size and attenuation. There are calcified splenic granulomas. Pancreas: Mildly atrophic and grossly unremarkable. Adrenal glands: A 2 cm left adrenal nodule is unchanged from prior studies. The right adrenal gland is normal in appearance. Kidneys: The contrast enhanced kidneys demonstrate mild cortical atrophy. There is mild left-sided hydroureteronephrosis. No hydronephrosis is seen on the right. The kidneys enhance symmetrically. Small renal cysts measure up to 2 cm. Additional subcentimeter cortical hypodensities also likely represent cysts but are too small for definitive characterization. Abdominal vasculature: The abdominal aorta is normal in course and caliber noting advanced atherosclerotic calcification. Bowel: There is postoperative change of distal colonic resection with left lower quadrant colostomy. No bowel obstruction is seen. A rectal stump is noted in the pelvis. The appendix is not identified and reported surgically absent. Peritoneum: No intraperitoneal free air is identified. Midline skin clips are noted. There is a 4.7 x 6.2 x 1.8 cm fluid collection identified within the subcutaneous fat surrounding the ostomy, best seen on axial image #225. A surgical drain is present in the left pelvis from a ventral pelvic approach. There are multiple loculated fluid collections identified throughout the pelvis. The largest is located along the left pelvic sidewall seen on image #314. This measures 4.4 x 3.9 x 3.0 cm. A collection in the right presacral region measures 3.5 x 6.7 x 2.5 cm as seen on image #295. A serpiginous collection the right ventral pelvis on image #302 measures approximately 4 x 1 cm. Lymphadenopathy: None. Pelvic viscera: Evaluation of the pelvis is degraded by streak artifact from a left hip arthroplasty. The bladder wall is circumferentially thickened is pericystic inflammation. There are calcified uterine fibroids. Skeletal structures: The skeletal structures are osteopenic. See below for dedi cated assessment of the lumbar spine. No lytic or blastic lesions are seen. A left hip arthroplasty is in place. The bony pelvis and proximal femora appear intact. LUMBAR SPINE: There are compression deformities of L1, L2, L3, and L4. There is mild/moderate loss of height at L1 with mild loss of height at L2 and L3. Minimal loss of height is seen at L4. The L1 compression deformity is new from 01/15/2021 and likely acute to subacute. Interval superior endplate compression deformity of L4 is also new from previous. The L2 and L3 compression deformities are unchanged. The transverse and spinous processes are intact. There is no evidence of spondylolysis. There is moderate to advanced disc space narrowing at L5 5 to S1. The remaining disc spaces appear maintained. There is no evidence of large disc herniation or high-grade stenosis by CT. There is fatty atrophy of the paraspinous musculature. IMPRESSION: 1. Emphysema. 2. There are trace pleural effusions with bibasilar scarring/atelectasis. No airspace consolidation is seen typical for pneumonia. 3. There is only minimal residual nodularity/scarring in the right perihilar region at the site of the previously characterized mass lesion. 4. There is postoperative change of distal colon resection with left lower quadrant colostomy. 5. There is no bowel obstruction. 6. There is a loculated fluid collection within the subcutaneous fat around the ostomy site. This could represent seroma versus abscess and clinical correlation will be required. 7. A surgical drain is present in the left pelvis. 8. There are numerous loculated fluid collections in the pelvis as detailed above typical for abscesses. 9. There are compression deformities of T10, L1, and L4 as detailed above. These are new from recent prior studies and likely acute to subacute. Correlate for point tenderness. 10. Additional thoracolumbar compression deformities are chronic. 11. An indeterminant left adrenal nodule is similar to prior studies. 12. The bladder wall appears thickened and there is pericystic inflammation. Correlate clinically and with urinalysis for evidence of cystitis. 13. There is body wall edema. 14. Mild left hydronephrosis is likely related to the inflammatory process in the left pelvis. 15. Additional findings as above. ACT 112: Negative or not required by law. Electronically signed by: Jeffry Sotomayor M.D. 02/04/2021 7:18 PM Venous Doppler Study 02/04/21 16:30 ULTRASOUND LEFT LOWER EXTREMITY VENOUS CLINICAL HISTORY: Left leg swelling. COMPARISON STUDY: Bilateral lower extremity venous ultrasound dated 03/02/2020. TECHNIQUE: Real-time, grayscale, and color Doppler sonography of the deep veins of the left lower extremity was performed from the inguinal crease to the calf. Compression and augmentation were utilized. FINDINGS: There is nonocclusive thrombus identified within 1 of paired left popliteal veins. The common femoral and superficial femoral veins are patent and normally compressible. The greater saphenous vein and the profunda femoris vein at the junction with the common femoral vein are clear. The visualized calf veins are patent. Soft tissue edema is noted in the calf. IMPRESSION: There is nonocclusive deep venous thrombosis identified within 1 of paired left popliteal veins ACT 112: Negative or not required by law. Electronically signed by: Jeffry Sotomayor M.D. 02/04/2021 6:[address] 02/04/21 16:36 CT SCAN OF THE BRAIN WITHOUT IV CONTRAST CLINICAL HISTORY: Lethargy. COMPARISON STUDY: CT of the brain dated 03/12/2020. TECHNIQUE: Unenhanced axial CT scan of the brain is performed from the vertex to the skull base. A dose lowering technique was utilized adhering to the principles of ALARA. FINDINGS: Brain parenchyma: There are age-related involutional changes noting mild subcortical and periventricular microangiopathic change. There is no hemorrhage, mass effect, or evidence of acute territorial ischemia by CT criteria. Orozco- white matter differentiation is preserved. No extra-axial fluid collection is seen. Ventricles, sulci, cisterns: Prominent secondary to involutional change. Intracranial vasculature: There is atherosclerotic calcification of the cavernous carotid and vertebral arteries. Calvarium: Unremarkable. Sinuses and mastoids: The visualized paranasal sinuses are clear. The mastoid air cells are well pneumatized. Orbits: The bony orbits are grossly intact. There are bilateral ocular lens implants. IMPRESSION: There is no hemorrhage, mass effect, or evidence of acute territorial ischemia by CT criteria. ACT 112: Negative or not required by law. Electronically signed by: Jeffry Sotomayor M.D. 02/04/2021 6:26 PM Discharge Plan Visit Data Chief Complaint: Lethargic Stated Complaint: LETHARGIC ED Provider: Jeffry Vasquez Discharge Problem: Hypotension, Hypomagnesemia, Hypokalemia, Altered mental status, Elevated troponin, Abdominal abscess, Compression fracture, DVT (deep venous thrombosis) Patient Disposition: Admitted As Inpatient Condition: Serious Forms Stand Alone Forms: [employer] Prescriptions Prescriptions: No Action citalopram [Celexa] 40 mg tablet 40 mg PO QAM Qty: 90 RF: 3 levothyroxine [Synthroid] 100 mcg tablet 100 mcg PO QAM Qty: 90 RF: 3 pantoprazole [Protonix] 40 mg tablet,delayed release (DR/EC) 40 mg PO QAM Qty: 90 RF: 3 lorazepam 0.5 mg tablet 0.5 mg PO Q12H PRN (Reason: anxiety) Qty: 60 RF: 0 Hold Instructions: valium at night fluconazole [Diflucan] 200 mg tablet 200 mg PO Q72H PRN (Reason: thrush) Qty: 5 RF: 0 ondansetron HCl 8 mg tablet 8 mg PO Q12H Qty: 60 RF: 1 potassium chloride 10 mEq tablet extended release 20 meq PO BID Qty: 180 RF: 2 diazepam [Valium] 5 mg tablet See Rx Instructions PO .COMPLEX PRN (Reason: anxiety) Qty: 30 RF: 0 hydromorphone [Dilaudid] 2 mg tablet 2 mg PO Q6H Qty: 28 RF: 0 benzonatate [Tessalon Perles] 100 mg capsule 100 mg PO TID PRN (Reason: cough) Qty: 60 RF: 0 torsemide 10 mg tablet 10 mg PO .QOD PRN (Reason: swelling) Qty: 20 RF: 0 calcitonin (salmon) 200 unit/actuation spray,non-aerosol 1 spray intranasal (ALT) DAILY Qty: 3.7 RF: 2 folic acid 1 mg tablet 1 mg PO QAM RF: 0 aspirin 81 mg Tablet,Delayed Release (Dr/Ec) 81 mg PO DAILY RF: 0 magnesium oxide 400 mg (241.3 mg magnesium) tablet 400 mg PO BID Qty: 20 RF: 0 prochlorperazine maleate [Compazine] 5 mg tablet 5 mg PO TID PRN (Reason: Nausea And Vomiting) RF: 0 prednisone 20 mg tablet 10 mg PO DAILY RF: 0 oxycodone 5 mg tablet 5 mg PO DIRECTED PRN (Reason: Pain) RF: 0 vancomycin 250 mg Recon Soln 0 mg IV DIRECTED RF: 0 Referrals Referrals: Zion Bartholomew MD [Primary Care Provider] - Discharge Problem: Hypotension Qualifiers: Hypotension type: unspecified hypotension type Qualified Code(s): I95.9 - Hypotension, unspecified Altered mental status Qualifiers: Altered mental status type: somnolence Qualified Code(s): R40.0 - Somnolence DVT (deep venous thrombosis) Qualifiers: DVT location: lower extremity Affected thrombotic vein of extremity: unspecified vein of extremity Chronicity: acute Laterality: left Qualified Code(s): I82.402 - Acute embolism and thrombosis of unspecified deep veins of left lower extremity
[2021-02-04 16:32] LABS: Polychromasia 1+
--- NOTE | 2021-02-04 16:46 | XRay Report ---
SINGLE VIEW CHEST CLINICAL HISTORY: Dyspnea. FINDINGS: An AP, portable, upright chest radiograph is compared to chest x-ray dated 02/04/2021 and cor related with chest CT dated 03/12/2020. The examination is degraded by portable technique and patient rotation. A left subclavian central venous infusion port is unchanged in position. The heart is top normal in size noting atherosclerotic calcification of the thoracic aorta. The pulmonary vasculature is noncongested. Advanced emphysema and chronic interstitial thickening are similar to previous. Ther e is a small left pleural effusion with left basilar consolidation. Scarring/atelectasis is noted at the right lung base. No pneumothorax is seen. The skeletal structures are osteopenic. The bony thorax is grossly intact. Surgical clips are seen in the right lower neck. IMPRESSION: 1. Cardiomegaly and advanced emphysema. 2. There is airspace consolidation at the left lung base with a small left pleural effusion. Correlat e clinically for evidence of pneumonia/aspiration pneumonitis. Radiographic follow-up to resolution i s recommended. ACT 112: Negative or not required by law. Electronically signed by: Jeffry Sotomayor M.D. 02/04/2021 4:44 PM
[2021-02-04 17:33] LABS: Magnesium 1.2 mg/dl (1.8-2.4); Troponin I 1.29 ng/ml (0-0.045)
[2021-02-04 17:42] LABS: Partial Thromboplastin Ratio 1.1; Partial Thromboplastin Time 27.9 Seconds (21.0-31.0); Prothrombin Time 10.4 Seconds (9.0-12.0)
[2021-02-04] MEDS ORDERED: OPTIRAY 300 100mL IV ONE (17:50)
[2021-02-04] MEDS ORDERED: MAGNESIUM SULFATE / D5W 1 GM/100 ML BAG IV STA ×2 (17:51→17:52)
[2021-02-04 18:08] LABS: Influenza A virus by PCR Negative (Neg); Influenza B virus by PCR Negative (Neg); RSV by PCR Negative (Neg); SARS CoV2 RNA(COVID-19) InHosp NEGATIVE (Negative)
--- NOTE | 2021-02-04 18:27 | CT Scan Report ---
CT SCAN OF THE BRAIN WITHOUT IV CONTRAST CLINICAL HISTORY: Lethargy. COMPARISON STUDY: CT of the brain dated 03/12/2020. TECHNIQUE: Unenhanced axial CT scan of the brain is performed from the vertex to the skull base. A do se lowering technique was utilized adhering to the principles of ALARA. FINDINGS: Brain parenchyma: There are age-related involutional changes noting mild subcortical and periventric ular microangiopathic change. There is no hemorrhage, mass effect, or evidence of acute territorial i schemia by CT criteria. Orozco-white matter differentiation is preserved. No extra-axial fluid collecti on is seen. Ventricles, sulci, cisterns: Prominent secondary to involutional change. Intracranial vasculature: There is atherosclerotic calcification of the cavernous carotid and vertebr al arteries. Calvarium: Unremarkable. Sinuses and mastoids: The visualized paranasal sinuses are clear. The mastoid air cells are well pneu matized. Orbits: The bony orbits are grossly intact. There are bilateral ocular lens implants. IMPRESSION: There is no hemorrhage, mass effect, or evidence of acute territorial ischemia by CT haven pan. ACT 112: Negative or not required by law. Electronically signed by: Jeffry Sotomayor M.D. 02/04/2021 6:26 PM
--- NOTE | 2021-02-04 18:29 | Ultrasound Report ---
ULTRASOUND LEFT LOWER EXTREMITY VENOUS CLINICAL HISTORY: Left leg swelling. COMPARISON STUDY: Bilateral lower extremity venous ultrasound dated 03/02/2020. TECHNIQUE: Real-time, grayscale, and color Doppler sonography of the deep veins of the left lower ext remity was performed from the inguinal crease to the calf. Compression and augmentation were utilized . FINDINGS: There is nonocclusive thrombus identified within 1 of paired left popliteal veins. The comm on femoral and superficial femoral veins are patent and normally compressible. The greater saphenous vein and the profunda femoris vein at the junction with the common femoral vein are clear. The visual ized calf veins are patent. Soft tissue edema is noted in the calf. IMPRESSION: There is nonocclusive deep venous thrombosis identified within 1 of paired left popliteal veins ACT 112: Negative or not required by law. Electronically signed by: Jeffry Sotomayor M.D. 02/04/2021 6:28 PM
[2021-02-04] MEDS ORDERED: ACETAMINOPHEN 1,000 MG/100 ML VIAL IV STA (18:37)
--- NOTE | 2021-02-04 19:19 | CT Scan Report ---
CT SCAN OF THE CHEST, ABDOMEN, AND PELVIS WITH IV CONTRAST; CT SCAN OF THE THORACIC SPINE WITHOUT IV CONTRAST; CT SCAN OF THE LUMBAR SPINE WITHOUT IV CONTRAST CLINICAL HISTORY: Lethargy. Lung cancer. Thoracic and lumbar back pain. COMPARISON STUDY: Chest CT dated 03/12/2020. Abdominal CT dated 01/15/2021. PET/CT dated 07/28/2020. TECHNIQUE: Following the IV administration of 89 of Optiray 300, CT scan of the chest, abdomen, and p george was performed from the thoracic inlet to the proximal femora. Images are reviewed in the axial, sagittal, and coronal planes. IV contrast was administered without complication. Additionally, unen hanced CT scan of the thoracic spine is performed from the lower cervical spine to the upper lumbar s pine and unenhanced CT scan of lumbar spine is performed from the lower thoracic spine to the sacrum. The thoracic and lumbar spinal CT scans are reviewed in the axial, sagittal, and coronal planes. IV contrast was not administered specifically for the spinal CTs. A dose lowering technique was utilized adhering to the principles of ALARA. The examination is degraded by motion artifact, as well as by s treak artifact from the arms which could not be elevated above the chest or abdomen. CT DOSE: 1200.32 mGy.cm FINDINGS: CHEST: Thyroid: Imaged portions of the thyroid gland are normal in size and attenuation. Thoracic aorta: There is atherosclerotic calcification of the thoracic aorta, which is normal in [place] and demonstrates standard 3-vessel arch anatomy. No dissection is seen. There is at least moderat e stenosis of the proximal left subclavian artery. Pulmonary vasculature: The pulmonary trunk is normal in caliber. There are no filling defects identif ied in the central pulmonary vessels to indicate pulmonary embolus. Note that this examination was no t protocoled for evaluation of the pulmonary arteries. Heart: A left subclavian central venous infusion port is in place. The heart is normal in size noting trace pericardial effusion. The coronary arteries are densely calcified. Lungs and pleural spaces: Emphysematous change is noted. The trachea and central airways are clear. T here are trace pleural effusions with bibasilar scarring/atelectasis. There is no airspace consolidat ion typical for pneumonia or pneumothorax. Is only minimal residual right perihilar nodularity at the site of the previously treated mass lesion. This measures up to 1.4 cm as seen on image #179. No new pulmonary lesion is identified. Mediastinum: There is no mediastinal lymphadenopathy. Noy: Clear. Axillae: There is no axillary lymphadenopathy. Bony thorax: The skeletal structures are osteopenic. See below for dedicated assessment of the thorac ic spine. No lytic or blastic lesions are identified. THORACIC SPINE: There is a superior endplate compression deformity of T10 with [id number] loss of height. This is new from recent prior examinations. There are minimal superior endplate compressio n deformities in the mid to upper thoracic region. The transverse and spinous processes are intact. T he disc spaces are preserved. There is no evidence of large disc herniation or high-grade central can al stenosis by CT. The paraspinous soft tissues are normal in appearance. Soft tissues: There is body wall edema. ABDOMEN AND PELVIS: Liver: The contrast-enhanced liver is normal in size, contour, and attenuation. There is no intrahepa tic biliary ductal dilatation. The hepatic veins and portal veins are patent. Gallbladder: Unremarkable. Spleen: Normal in size and attenuation. There are calcified splenic granulomas. Pancreas: Mildly atrophic and grossly unremarkable. Adrenal glands: A 2 cm left adrenal nodule is unchanged from prior studies. The right adrenal gland i s normal in appearance. Kidneys: The contrast enhanced kidneys demonstrate mild cortical atrophy. There is mild left-sided hy droureteronephrosis. No hydronephrosis is seen on the right. The kidneys enhance symmetrically. Small renal cysts measure up to 2 cm. Additional subcentimeter cortical hypodensities also likely represen t cysts but are too small for definitive characterization. Abdominal vasculature: The abdominal aorta is normal in course and caliber noting advanced atheroscle rotic calcification. Bowel: There is postoperative change of distal colonic resection with left lower quadrant colostomy. No bowel obstruction is seen. A rectal stump is noted in the pelvis. The appendix is not identified and reported surgically absent. Peritoneum: No intraperitoneal free air is identified. Midline skin clips are noted. There is a 4.7 x 6.2 x 1.8 cm fluid collection identified within the subcutaneous fat surrounding the ostomy, best se en on axial image #225. A surgical drain is present in the left pelvis from a ventral pelvic approach . There are multiple loculated fluid collections identified throughout the pelvis. The largest is loc ated along the left pelvic sidewall seen on image #314. This measures 4.4 x 3.9 x 3.0 cm. A collectio n in the right presacral region measures 3.5 x 6.7 x 2.5 cm as seen on image #295. A serpiginous almaz ection the right ventral pelvis on image #302 measures approximately 4 x 1 cm. Lymphadenopathy: None. Pelvic viscera: Evaluation of the pelvis is degraded by streak artifact from a left hip arthroplasty. The bladder wall is circumferentially thickened is pericystic inflammation. There are calcified uter ine fibroids. Skeletal structures: The skeletal structures are osteopenic. See below for dedicated assessment of th e lumbar spine. No lytic or blastic lesions are seen. A left hip arthroplasty is in place. The bony p george and proximal femora appear intact. LUMBAR SPINE: There are compression deformities of L1, L2, L3, and L4. There is mild/moderate loss of height at L1 with mild loss of height at L2 and L3. Minimal loss of height is seen at L4. The L1 com pression deformity is new from 01/15/2021 and likely acute to subacute. Interval superior endplate com pression deformity of L4 is also new from previous. The L2 and L3 compression deformities are unchang ed. The transverse and spinous processes are intact. There is no evidence of spondylolysis. There is moderate to advanced disc space narrowing at L5 5 to S1. The remaining disc spaces appear maintained. There is no evidence of large disc herniation or high-grade stenosis by CT. There is fatty atrophy o f the paraspinous musculature. IMPRESSION: 1. Emphysema. 2. There are trace pleural effusions with bibasilar scarring/atelectasis. No airspace consolidation i s seen typical for pneumonia. 3. There is only minimal residual nodularity/scarring in the right perihilar region at the site of th e previously characterized mass lesion. 4. There is postoperative change of distal colon resection with left lower quadrant colostomy. 5. There is no bowel obstruction. 6. There is a loculated fluid collection within the subcutaneous fat around the ostomy site. This cou ld represent seroma versus abscess and clinical correlation will be required. 7. A surgical drain is present in the left pelvis. 8. There are numerous loculated fluid collections in the pelvis as detailed above typical for abscess es. 9. There are compression deformities of T10, L1, and L4 as detailed above. These are new from recent prior studies and likely acute to subacute. Correlate for point tenderness. 10. Additional thoracolumbar compression deformities are chronic. 11. An indeterminant left adrenal nodule is similar to prior studies. 12. The bladder wall appears thickened and there is pericystic inflammation. Correlate clinically and with urinalysis for evidence of cystitis. 13. There is body wall edema. 14. Mild left hydronephrosis is likely related to the inflammatory process in the left pelvis. 15. Additional findings as above. ACT 112: Negative or not required by law. Electronically signed by: Jeffry Sotomayor M.D. 02/04/2021 7:18 PM
[2021-02-04 20:58] LABS: Appearance Urine Turbid (Clear); Bacteria Urine Automated Negative (Negative); Blood Urine Negative (Negative); Color Urine Dark Yellow; Epithelial Cell Urine Auto >30 /lpf (0-5); Glucose Urine UA Negative (Negative); Ketones Urine 1+ (Negative); Leukocyte Esterase Urine Trace (Negative); Nitrite Urine Negative (Negative); Protein Urine 2+ (Negative); RBC Urine Automated 0-4 /hpf (0-4); Specific Gravity Urine 1.036 (1.000-1.030); Urobilinogen Urine Negative (Negative); WBC Urine Automated >30 /hpf (0-5); pH Urine 5.5 (4.5-7.5)
[2021-02-04 21:02] LABS: Bilirubin Urine 1+ (Negative)
[2021-02-04 21:36] LABS: Amorphous Sediment Urine Present (None Prsent)
[2021-02-04] MEDS ORDERED: Heparin IV Adult Wt-Based Low-Dose *NO* Bolus Protocol IV STA (22:20)
[2021-02-04] MEDS ORDERED: HEPARIN 25000 UNIT/500 ML D5W IV ONE (22:36)
[2021-02-04] MEDS ORDERED: HYDROmorphone INJ 1 MG/ML SYRINGE IV PRN (23:33)
[2021-02-04] MEDS ORDERED: ONDANSETRON INJ 2 MG/ML 2 ML VIAL IV PRN (23:33)
[2021-02-04] MEDS ORDERED: MEROPENEM CONSULT ACITVE PRN (23:33)
[2021-02-04] MEDS ORDERED: SODIUM CHLORIDE 0.9% 250 ML IV PRN (23:33)
[2021-02-04] MEDS: HEPARIN SODIUM/DEXTROSE 25,000 UNITS/500 ML BAG IV SCH (23:49)
[2021-02-05 00:07] LABS: Base Excess VBG 5.7 mEq/L; Oxygen Saturation VBG 70.9 %; pH VBG 7.34 (7.36-7.41)
[2021-02-05 00:25] LABS: Phosphorus 3.4 mg/dl (2.5-4.9); Thyroid Stimulating Hormone 5.68 uIu/ml (0.300-4.500); Troponin I 0.745 ng/ml (0-0.045)
[2021-02-05 00:43] LABS: T4 Free Thyroxine 1.4 ng/dl (0.8-1.6)
[2021-02-05] MEDS ORDERED: VANCOMYCIN CONSULT ACTIVE PRN (01:08)
--- NOTE | 2021-02-05 02:25 | History & Physical Report ---
Date of Service February 04, 2021 Assessment & Plan (1) Altered mental status: Somnolence. ?Medication effects from opiates -Frequent orientation -Follow cultures -Correction of metabolic derangements as below Present on Admission?: Yes (2) Hypomagnesemia: Mg=1.2 -Repletion with Magnesium x 4 gm -Repeat level in AM Present on Admission?: Yes (3) Hypokalemia: K=3.1 -Repletion with K-riders -Repeat chemistry in AM Present on Admission?: Yes (4) Elevated troponin: Patient denies chest pain -Telemetry monitoring -Trend troponin -Check 2D echo in AM -Continue ASA Present on Admission?: Yes (5) Abdominal abscess: S/p surgical drainage at [facility] -Request records -Continue Meropenem and Vancomycin as recommended -Follow cultures -Wound/Ostomy consultation appreciated -Per daughter there will be no further surgeries in the future Present on Admission?: Yes (6) Compression fracture: Patient with significant back pain secondary to compression fractures -Palliative care consultation appreciated -Consider Ortho consultation - daughter mentioned possible kyphoplasty -Dilaudid as needed for pain control Present on Admission?: Yes (7) DVT (deep venous thrombosis): LLE popliteal DVT. Provoked - recent surgery - patient at high risk due to underlying malignancy -Heparin gtt - low dose, no bolus -Discussed with [facility] Surgery international specialist prior to initiation -Monitor GREGG output for bleeding Present on Admission?: Yes (8) Chronic use of steroids: Patient on Prednisone -Solumedrol 10mg daily IV -Low threshold for stress dosing should patient become hypotensive Present on Admission?: Yes (9) Anemia: Hgb=7.7 which is lower than prior values. Possibly contributing to patient's fatigue -Transfuse 1u PRBCs -Monitor CBC Present on Admission?: Yes (10) Lung cancer metastatic to bone: Patient is to see oncology this coming week to discuss next steps in care. No immediate concerns -Monitor -Consider repeat PET-CT to assess extent of bony metastases Present on Admission?: Yes (11) GERD (gastroesophageal reflux disease): Chronic -Continue Pepcid Present on Admission?: Yes (12) COPD (chronic obstructive pulmonary disease): Chronic. Patient with wheezing -Albuterol as needed (13) Depression: Chronic -Continue Celexa 40mg po daily F/E/N - Heplock, Electrolyte repletion as above, NPO for now, ADAT as mental status improves, Folic Acid IV, try to reduce pill burden given patient's level of somnolence Ppx - Heparin gtt as above for DVT Code - DNR/DNI per discussion with daughter Dispo - Admit to medical/tele POC - Fabian Bajwa = [phone] Present on Admission?: Yes Admission and Anticipated Discharge Date Admission Date: February 04, 2021 History of Present Illness Chief Complaint: Back pain Primary Care Provider: Zion Bartholomew MD Aydee Burgos is a 80yo female with multiple medical problems - 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 She has longstanding issues with pelvic abscesses requiring drainage, enterocutaneous fistula, bowel obstructions and colitis as well as chronic abdominal wound infection with Pseudomonas. She underwent sigmoid colostomy and appendectomy in October 2019 with revision in March 2020. Most recently she has been having issues with back pain secondary to vertebral compression fractures. Patient was recently hospitalized at [facility] for recurrent intra-abdominal abscesses. She had a partial proctectomy, adhesiolysis, drainage of intra-abdominal abscesses, small bowel resection and repair of parastomal hernia performed on 01/21/[address] Pena. The surgery went well with no complications. She was discharged to home with services and receives IV antibiotics- Vancomycin and Meropenem. Patient began having worsening back pain after the surgery. She has seen her PCP for this issue as well on 02/04/21 - had an x-ray that showed mild degenerative changes and osteopenia. She had several CTs which suggested compression deformity at L2, L3 as well as T12. Her pain from this issue has become debilitating. She has not been able to ambulate or get out of bed. She has been taking Valium for this issue but has been sleepy - unable to take her medications or PO. Her Valium has since been changed to Oxycodone then to PO Dilaudid. Daughter is concerned that she has not been taking her medications, eating or drinking for several days. Today her daughter states that osmel was more tired than she has ever been - she was unable to take her medications which prompted them to come to the ER. Allergies Allergy/AdvReac Type Severity Reaction Status Date / Time nickel Allergy Intermediate Rash Verified 02/04/21 16:11 venlafaxine AdvReac Intermediate Hypertensio Verified 02/04/21 16:11 n,Headache clarithromycin AdvReac Mild Nausea/Vomi Verified 02/04/21 16:11 ting codeine AdvReac Mild UPSET Verified 02/04/21 16:11 STOMACH hydrocodone AdvReac Mild Nausea/Vomi Verified 02/04/21 16:11 ting metronidazole [From Flagyl] AdvReac Mild Gastrointestinal Verified 02/04/21 16:11 Upset Home Medications Medication Instructions Recorded Confirmed Type folic acid 1 mg PO QAM 08/04/19 02/04/21 History citalopram 40 mg tablet 40 mg PO QAM #90 tab 01/09/20 02/04/21 Rx magnesium oxide 400 mg PO BID #20 tab 02/29/20 02/04/21 Rx prochlorperazine maleate 5 mg PO TID PRN 03/12/20 02/04/21 History [Compazine] aspirin 81 mg PO DAILY 08/09/20 02/04/21 History benzonatate 100 mg capsule 100 mg PO TID PRN #60 cap 09/01/20 02/04/21 Rx levothyroxine 100 mcg tablet 100 mcg PO QAM #90 tab 09/03/20 02/04/21 Rx pantoprazole 40 mg tablet,delayed 40 mg PO QAM #90 tab 11/05/20 02/04/21 Rx release lorazepam 0.5 mg tablet 0.5 mg PO Q12H PRN #60 tab 11/25/20 02/04/21 Rx prednisone 10 mg PO DAILY 12/24/20 02/04/21 History fluconazole 200 mg tablet 200 mg PO Q72H PRN #5 tab 12/29/20 02/04/21 Rx ondansetron HCl 8 mg tablet 8 mg PO Q12H #60 tab 12/29/20 02/04/21 Rx potassium chloride 10 mEq 20 meq PO BID #180 tab 12/29/20 02/04/21 Rx tablet,extended release diazepam 5 mg tablet See Rx Instructions PO .COMPLEX 01/31/21 02/04/21 Rx PRN #30 tab calcitonin (salmon) 200 1 spray INTRANASAL (ALT) DAILY 02/04/21 02/04/21 Rx unit/actuation nasal spray #3.7 ml hydromorphone 2 mg tablet 2 mg PO Q6H #28 tab 02/04/21 02/04/21 Rx oxycodone 5 mg PO DIRECTED PRN 02/04/21 02/04/21 History torsemide 10 mg tablet 10 mg PO .QOD PRN #20 tab 02/04/21 02/04/21 Rx vancomycin 0 mg IV DIRECTED 02/04/21 02/04/21 History Past Med/Surg History Medical History Adenocarcinoma, lung Adrenal cortical adenoma Anasarca Anxiety Arthritis Biceps tendonitis Cataract COVID-19 virus antibody negative Depression Esophageal dyskinesia Essential hypertriglyceridemia Fatigue Gastritis Gastroesophageal reflux disease History of bronchitis History of diverticulitis Hyperlipidemia Hypomagnesemia Hypothyroidism Intermittent hydrarthrosis of elbow Irritable bowel syndrome Lung cancer NEW DX Metastatic bone cancer radiation treatments completed 08/25/19. Olecranon bursitis Osteoarthritis Osteopenia Pneumonia hx SBO (small bowel obstruction) Sialoadenitis Small bowel obstruction Surgical History History of cataract surgery RT/LEFT History of colonoscopy Dr. Veronica 12/2011 History of dilatation and curettage History of discectomy CERVICAL (GOOD ROM) History of repair of rotator cuff RT History of tooth extraction S/P section X 1 S/P hip replacement left. 07/02/2019. SAB with MAC. no issues. Family History Family/Other Family history of diabetes mellitus Brother Family hx of colon cancer Mother , age 66 Diabetes Cancer ovarian Coronary heart disease had acute HI which led to her Sister Cancer Family/Other Breast cancer Father , age 49 Suicide Alcoholism Social History Smoking Status: Current every day smoker Tobacco Type: Cigarettes Age Started Using Tobacco: 21; packs per day: 0.5; Cigarettes Per Day: 10; Second Hand Exposure: No; Do You Dip or Chew Tobacco: No; Tobacco Cessation Education Requested by Patient: No Hx Alcohol Use: Yes Alcohol type: wine Hx Substance Use: Yes Last Used Substance: Unknown Last Used Substance Other:: 12/23/20 Substance Use Type Other:: medical Preferred Language: Slovak Communication Ability: Effective Visual Impairment: No Limitations Hearing Ability: Normal Manager Nursing Home Required: No Beliefs That Will Affect Care: None marital status: / Current Living Situation: Family Current Living Situation Comment: lives with grandson current occupational status: retired current occupation: worked at [employer] ([employer]) other: 1 daughter Feels Safe at Home: Yes Safety Concerns: Feels Safe At This Time Childhood Exposure to Second-Hand Smoke: Yes (both parents) caffeine: Yes Dental Care, Regularly: No Seatbelt Use: always Assistive Devices: Oxygen - Continuous Review of Systems Review of Systems: Unobtainable due to cognitive status Physical Exam Physical Exam: General: ill appearing female patient resting comfortably, NAD, oriented to self and hospital HEENT: NC/AT, PERRL, anicteric sclera, conjunctiva without injection, external ear normal to inspection and nontender, nares patent, dry mucus membranes, dentition intact, no oropharyngeal lesions, neck supple, trachea midline, no LAD, no thyromegaly, no JVD Heart: +S1/S2, regular, no m/r/g Lungs: equal air entry bilaterally, scattered wheezes throughout Abd: +BS diminished, dressings and binder in place - ney assessed - small area of dehiscence with drainage at caudal end of surgical wound, GREGG drain in place with small amount of purulent drainage, ostomy in place with green output Ext: warm, 2+ pulses in UE/LE bilaterally, no clubbing/cyanosis, +pitting LE edema Neuro: nonfocal, patient somnolent, speech intact, no facial droop, moving all extremities on command with equal strength 5/5 Results & Data Results & Data ([facility]) Vital Signs (Past 12 Hours) Vital Signs Temp Pulse Pulse Resp BP BP Pulse Ox 02/05/21 02:14 35.1 C L 62 18 100/57 L 02/05/21 02:02 34.7 C L 62 16 106/67 02/05/21 00:28 37.4 C 65 20 103/59 L 100 02/04/21 22:30 69 16 94/49 L 100 02/04/21 22:00 71 14 95/46 L 100 02/04/21 21:30 72 12 99/56 L 100 02/04/21 21:05 70 14 90/51 L 99 05/07/21 20:50 73 14 100 02/04/21 20:40 74 19 100 02/04/21 20:31 73 4 L 100 02/04/21 20:30 73 15 91/55 L 100 02/04/21 20:00 75 18 97/56 L 99 02/04/21 19:30 76 15 90/51 L 99 02/04/21 19:00 77 20 103/55 L 97 02/04/21 18:31 69 16 97 02/04/21 18:30 82 17 86/50 L 98 02/04/21 17:31 82 20 97/52 L 100 02/04/21 16:30 81 17 92/56 L 100 02/04/21 16:11 81 18 105/53 L 99 02/04/21 15:10 36.6 C 86 20 103/57 L 97 02/04/21 15:06 80 18 103/57 L 97 Laboratory Results Lab Results 02/04/21 02/04/21 02/04/21 Range/Units 15:05 15:05 15:05 WBC 12.91 H (4.8-10.8) K/uL RBC 2.55 L (4.2-5.4) M/uL Hgb 7.7 L (12.0-16.0) g/dL Hct 24.7 L (37-47) % MCV 96.9 (80-100) fL MCH 30.2 (25-34) pg MCHC 31.2 L (32-36) g/dL RDW Std Deviation 52.4 H (36.4-46.3) fL RDW Coeff of Raymundo 14.9 H (11.5-14.5) % Plt Count 335 (130-400) K/uL MPV 9.2 (7.4-10.4) fL Immature Gran % (Auto) 0.7 % Neut % (Auto) 78.6 % Lymph % (Auto) 6.3 % [place] % (Auto) 12.9 % Eos % (Auto) 1.1 % Baso % (Auto) 0.4 % Neut # (Auto) 10.16 H (1.4-6.5) K/uL Lymph # (Auto) 0.81 L (1.2-3.4) K/uL [place] # (Auto) 1.66 H (0.11-0.59) K/uL Eos # (Auto) 0.14 (0-0.5) K/uL Baso # (Auto) 0.05 (0-0.2) K/uL Immature Gran # (Auto) 0.09 H (0.00-0.02) K/uL Polychromasia 1+ PT (9.0-12.0) Seconds INR (0.9-1.1) APTT (21.0-31.0) Seconds PTT Ratio VBG pH (7.36-7.41) VBG pCO2 (38-50) mmHg VBG pO2 mmHg VBG HCO3 mmol/L VBG O2 Saturation % VBG Base Excess mEq/L Barometric Pressure mm/Hg Sodium 136 (136-145) mmol/L Potassium 3.1 L (3.5-5.1) mmol/L Chloride 96 L (98-107) mmol/L Carbon Dioxide 35 H (21-32) mmol/L Anion Gap 5.0 (3-11) BUN 16 D (7-18) mg/dl Creatinine 1.11 D (0.6-1.2) mg/dl Est Cr Clr Drug Dosing 34.6 ml/min Est GFR ( Amer) 55.1 Est GFR (Non-Af Amer) 47.5 BUN/Creatinine Ratio 14.6 (10-20) Glucose 96 (70-99) mg/dl POC Glucose (70-99) mg/dl Lactate (0.4-2.0) mmol/L Calcium 8.3 L (8.5-10.1) mg/dl Phosphorus (2.5-4.9) mg/dl Magnesium 1.2 L (1.8-2.4) mg/dl Total Bilirubin 0.2 (0.2-1) mg/dl AST 32 (15-37) U/L ALT 7 L (12-78) U/L Alkaline Phosphatase 91 (45-117) U/L Ammonia (11-32) umol/L Troponin I 1.290 H* (0-0.045) ng/ml Total Protein 5.4 L (6.4-8.2) gm/dl Albumin 1.4 L (3.4-5.0) gm/dl Globulin 4.0 (2.5-4.0) gm/dl Albumin/Globulin Ratio 0.3 L (0.9-2) TSH (0.300-4.500) uIu/ml Free T4 (0.8-1.6) ng/dl Urine Color Urine Appearance (Clear) Urine pH (4.5-7.5) Ur Specific Encampment (1.000-1.030) Urine Protein (Negative) Urine Glucose (UA) (Negative) Urine Ketones (Negative) Urine Blood (Negative) Urine Nitrite (Negative) Urine Bilirubin (Negative) Urine Urobilinogen (Negative) Ur Leukocyte Esterase (Negative) Urine WBC (Auto) (0-5) /hpf Urine RBC (Auto) (0-4) /hpf U Hyaline Cast (Auto) (0-5) /lpf U Epithel Cells (Auto) (0-5) /lpf Urine Bacteria (Auto) (Negative) Amorphous Sediment (None Prsent) Granular Casts (0) /lpf WBC Casts (0) /lpf Urine Yeast COVID-19 Eval Order SARS-CoV-2 (PCR) (Negative) Influenza Type A (PCR) (Neg) Influenza Type B (PCR) (Neg) RSV (RT-PCR) (Neg) Blood Type Antibody Screen Crossmatch 02/04/21 02/04/21 02/04/21 Range/Units 17:02 17:02 17:02 WBC (4.8-10.8) K/uL RBC (4.2-5.4) M/uL Hgb (12.0-16.0) g/dL Hct (37-47) % MCV (80-100) fL MCH (25-34) pg MCHC (32-36) g/dL RDW Std Deviation (36.4-46.3) fL RDW Coeff of Raymundo (11.5-14.5) % Plt Count (130-400) K/uL MPV (7.4-10.4) fL Immature Gran % (Auto) % Neut % (Auto) % Lymph % (Auto) % [place] % (Auto) % Eos % (Auto) % Baso % (Auto) % Neut # (Auto) (1.4-6.5) K/uL Lymph # (Auto) (1.2-3.4) K/uL [place] # (Auto) (0.11-0.59) K/uL Eos # (Auto) (0-0.5) K/uL Baso # (Auto) (0-0.2) K/uL Immature Gran # (Auto) (0.00-0.02) K/uL Polychromasia PT 10.4 (9.0-12.0) Seconds INR 1.0 (0.9-1.1) APTT 27.9 (21.0-31.0) Seconds PTT Ratio 1.1 VBG pH (7.36-7.41) VBG pCO2 (38-50) mmHg VBG pO2 mmHg VBG HCO3 mmol/L VBG O2 Saturation % VBG Base Excess mEq/L Barometric Pressure mm/Hg Sodium (136-145) mmol/L Potassium (3.5-5.1) mmol/L Chloride (98-107) mmol/L Carbon Dioxide (21-32) mmol/L Anion Gap (3-11) BUN (7-18) mg/dl Creatinine (0.6-1.2) mg/dl Est Cr Clr Drug Dosing ml/min Est GFR ( Amer) Est GFR (Non-Af Amer) BUN/Creatinine Ratio (10-20) Glucose (70-99) mg/dl POC Glucose (70-99) mg/dl Lactate 1.1 (0.4-2.0) mmol/L Calcium (8.5-10.1) mg/dl Phosphorus (2.5-4.9) mg/dl Magnesium (1.8-2.4) mg/dl Total Bilirubin (0.2-1) mg/dl AST (15-37) U/L ALT (12-78) U/L Alkaline Phosphatase (45-117) U/L Ammonia 18.4 (11-32) umol/L Troponin I (0-0.045) ng/ml Total Protein (6.4-8.2) gm/dl Albumin (3.4-5.0) gm/dl Globulin (2.5-4.0) gm/dl Albumin/Globulin Ratio (0.9-2) TSH (0.300-4.500) uIu/ml Free T4 (0.8-1.6) ng/dl Urine Color Urine Appearance (Clear) Urine pH (4.5-7.5) Ur Specific Encampment (1.000-1.030) Urine Protein (Negative) Urine Glucose (UA) (Negative) Urine Ketones (Negative) Urine Blood (Negative) Urine Nitrite (Negative) Urine Bilirubin (Negative) Urine Urobilinogen (Negative) Ur Leukocyte Esterase (Negative) Urine WBC (Auto) (0-5) /hpf Urine RBC (Auto) (0-4) /hpf U Hyaline Cast (Auto) (0-5) /lpf U Epithel Cells (Auto) (0-5) /lpf Urine Bacteria (Auto) (Negative) Amorphous Sediment (None Prsent) Granular Casts (0) /lpf WBC Casts (0) /lpf Urine Yeast COVID-19 Eval Order SARS-CoV-2 (PCR) (Negative) Influenza Type A (PCR) (Neg) Influenza Type B (PCR) (Neg) RSV (RT-PCR) (Neg) Blood Type Antibody Screen Crossmatch 02/04/21 02/04/21 02/04/21 Range/Units 17:07 17:07 20:27 WBC (4.8-10.8) K/uL RBC (4.2-5.4) M/uL Hgb (12.0-16.0) g/dL Hct (37-47) % MCV (80-100) fL MCH (25-34) pg MCHC (32-36) g/dL RDW Std Deviation (36.4-46.3) fL RDW Coeff of Raymundo (11.5-14.5) % Plt Count (130-400) K/uL MPV (7.4-10.4) fL Immature Gran % (Auto) % Neut % (Auto) % Lymph % (Auto) % [place] % (Auto) % Eos % (Auto) % Baso % (Auto) % Neut # (Auto) (1.4-6.5) K/uL Lymph # (Auto) (1.2-3.4) K/uL [place] # (Auto) (0.11-0.59) K/uL Eos # (Auto) (0-0.5) K/uL Baso # (Auto) (0-0.2) K/uL Immature Gran # (Auto) (0.00-0.02) K/uL Polychromasia PT (9.0-12.0) Seconds INR (0.9-1.1) APTT (21.0-31.0) Seconds PTT Ratio VBG pH (7.36-7.41) VBG pCO2 (38-50) mmHg VBG pO2 mmHg VBG HCO3 mmol/L VBG O2 Saturation % VBG Base Excess mEq/L Barometric Pressure mm/Hg Sodium (136-145) mmol/L Potassium (3.5-5.1) mmol/L Chloride (98-107) mmol/L Carbon Dioxide (21-32) mmol/L Anion Gap (3-11) BUN (7-18) mg/dl Creatinine (0.6-1.2) mg/dl Est Cr Clr Drug Dosing ml/min Est GFR ( Amer) Est GFR (Non-Af Amer) BUN/Creatinine Ratio (10-20) Glucose (70-99) mg/dl POC Glucose (70-99) mg/dl Lactate (0.4-2.0) mmol/L Calcium (8.5-10.1) mg/dl Phosphorus (2.5-4.9) mg/dl Magnesium (1.8-2.4) mg/dl Total Bilirubin (0.2-1) mg/dl AST (15-37) U/L ALT (12-78) U/L Alkaline Phosphatase (45-117) U/L Ammonia (11-32) umol/L Troponin I (0-0.045) ng/ml Total Protein (6.4-8.2) gm/dl Albumin (3.4-5.0) gm/dl Globulin (2.5-4.0) gm/dl Albumin/Globulin Ratio (0.9-2) TSH (0.300-4.500) uIu/ml Free T4 (0.8-1.6) ng/dl Urine Color Dark Yellow Urine Appearance Turbid A (Clear) Urine pH 5.5 (4.5-7.5) Ur Specific Encampment 1.036 H (1.000-1.030) Urine Protein 2+ H (Negative) Urine Glucose (UA) Negative (Negative) Urine Ketones 1+ H (Negative) Urine Blood Negative (Negative) Urine Nitrite Negative (Negative) Urine Bilirubin 1+ H (Negative) Urine Urobilinogen Negative (Negative) Ur Leukocyte Esterase Trace H (Negative) Urine WBC (Auto) >30 H (0-5) /hpf Urine RBC (Auto) 0-4 (0-4) /hpf U Hyaline Cast (Auto) 10-30 H (0-5) /lpf U Epithel Cells (Auto) >30 H (0-5) /lpf Urine Bacteria (Auto) Negative (Negative) Amorphous Sediment Present A (None Prsent) Granular Casts 10-20 H (0) /lpf WBC Casts 1-5 H (0) /lpf Urine Yeast Not Reportable COVID-19 Eval Order CovFluRsv at [facility] SARS-CoV-2 (PCR) NEGATIVE (Negative) Influenza Type A (PCR) Negative (Neg) Influenza Type B (PCR) Negative (Neg) RSV (RT-PCR) Negative (Neg) Blood Type Antibody Screen Crossmatch 02/04/21 02/04/21 02/04/21 Range/Units 23:44 23:44 23:44 WBC (4.8-10.8) K/uL RBC (4.2-5.4) M/uL Hgb (12.0-16.0) g/dL Hct (37-47) % MCV (80-100) fL MCH (25-34) pg MCHC (32-36) g/dL RDW Std Deviation (36.4-46.3) fL RDW Coeff of Raymundo (11.5-14.5) % Plt Count (130-400) K/uL MPV (7.4-10.4) fL Immature Gran % (Auto) % Neut % (Auto) % Lymph % (Auto) % [place] % (Auto) % Eos % (Auto) % Baso % (Auto) % Neut # (Auto) (1.4-6.5) K/uL Lymph # (Auto) (1.2-3.4) K/uL [place] # (Auto) (0.11-0.59) K/uL Eos # (Auto) (0-0.5) K/uL Baso # (Auto) (0-0.2) K/uL Immature Gran # (Auto) (0.00-0.02) K/uL Polychromasia PT (9.0-12.0) Seconds INR (0.9-1.1) APTT (21.0-31.0) Seconds PTT Ratio VBG pH 7.34 L (7.36-7.41) VBG pCO2 61 H (38-50) mmHg VBG pO2 40 mmHg VBG HCO3 32 mmol/L VBG O2 Saturation 70.9 % VBG Base Excess 5.7 mEq/L Barometric Pressure 729.2 mm/Hg Sodium (136-145) mmol/L Potassium (3.5-5.1) mmol/L Chloride (98-107) mmol/L Carbon Dioxide (21-32) mmol/L Anion Gap (3-11) BUN (7-18) mg/dl Creatinine (0.6-1.2) mg/dl Est Cr Clr Drug Dosing ml/min Est GFR ( Amer) Est GFR (Non-Af Amer) BUN/Creatinine Ratio (10-20) Glucose (70-99) mg/dl POC Glucose (70-99) mg/dl Lactate (0.4-2.0) mmol/L Calcium (8.5-10.1) mg/dl Phosphorus 3.4 (2.5-4.9) mg/dl Magnesium (1.8-2.4) mg/dl Total Bilirubin (0.2-1) mg/dl AST (15-37) U/L ALT (12-78) U/L Alkaline Phosphatase (45-117) U/L Ammonia (11-32) umol/L Troponin I 0.745 H* (0-0.045) ng/ml Total Protein (6.4-8.2) gm/dl Albumin (3.4-5.0) gm/dl Globulin (2.5-4.0) gm/dl Albumin/Globulin Ratio (0.9-2) TSH 5.680 H (0.300-4.500) uIu/ml Free T4 1.40 (0.8-1.6) ng/dl Urine Color Urine Appearance (Clear) Urine pH (4.5-7.5) Ur Specific Encampment (1.000-1.030) Urine Protein (Negative) Urine Glucose (UA) (Negative) Urine Ketones (Negative) Urine Blood (Negative) Urine Nitrite (Negative) Urine Bilirubin (Negative) Urine Urobilinogen (Negative) Ur Leukocyte Esterase (Negative) Urine WBC (Auto) (0-5) /hpf Urine RBC (Auto) (0-4) /hpf U Hyaline Cast (Auto) (0-5) /lpf U Epithel Cells (Auto) (0-5) /lpf Urine Bacteria (Auto) (Negative) Amorphous Sediment (None Prsent) Granular Casts (0) /lpf WBC Casts (0) /lpf Urine Yeast COVID-19 Eval Order SARS-CoV-2 (PCR) (Negative) Influenza Type A (PCR) (Neg) Influenza Type B (PCR) (Neg) RSV (RT-PCR) (Neg) Blood Type O Positive Antibody Screen NEGATIVE Crossmatch See Detail 02/05/21 Range/Units 01:23 WBC (4.8-10.8) K/uL RBC (4.2-5.4) M/uL Hgb (12.0-16.0) g/dL Hct (37-47) % MCV (80-100) fL MCH (25-34) pg MCHC (32-36) g/dL RDW Std Deviation (36.4-46.3) fL RDW Coeff of Raymundo (11.5-14.5) % Plt Count (130-400) K/uL MPV (7.4-10.4) fL Immature Gran % (Auto) % Neut % (Auto) % Lymph % (Auto) % [place] % (Auto) % Eos % (Auto) % Baso % (Auto) % Neut # (Auto) (1.4-6.5) K/uL Lymph # (Auto) (1.2-3.4) K/uL [place] # (Auto) (0.11-0.59) K/uL Eos # (Auto) (0-0.5) K/uL Baso # (Auto) (0-0.2) K/uL Immature Gran # (Auto) (0.00-0.02) K/uL Polychromasia PT (9.0-12.0) Seconds INR (0.9-1.1) APTT (21.0-31.0) Seconds PTT Ratio VBG pH (7.36-7.41) VBG pCO2 (38-50) mmHg VBG pO2 mmHg VBG HCO3 mmol/L VBG O2 Saturation % VBG Base Excess mEq/L Barometric Pressure mm/Hg Sodium (136-145) mmol/L Potassium (3.5-5.1) mmol/L Chloride (98-107) mmol/L Carbon Dioxide (21-32) mmol/L Anion Gap (3-11) BUN (7-18) mg/dl Creatinine (0.6-1.2) mg/dl Est Cr Clr Drug Dosing ml/min Est GFR ( Amer) Est GFR (Non-Af Amer) BUN/Creatinine Ratio (10-20) Glucose (70-99) mg/dl POC Glucose 100 H (70-99) mg/dl Lactate (0.4-2.0) mmol/L Calcium (8.5-10.1) mg/dl Phosphorus (2.5-4.9) mg/dl Magnesium (1.8-2.4) mg/dl Total Bilirubin (0.2-1) mg/dl AST (15-37) U/L ALT (12-78) U/L Alkaline Phosphatase (45-117) U/L Ammonia (11-32) umol/L Troponin I (0-0.045) ng/ml Total Protein (6.4-8.2) gm/dl Albumin (3.4-5.0) gm/dl Globulin (2.5-4.0) gm/dl Albumin/Globulin Ratio (0.9-2) TSH (0.300-4.500) uIu/ml Free T4 (0.8-1.6) ng/dl Urine Color Urine Appearance (Clear) Urine pH (4.5-7.5) Ur Specific [place]camp[place] (1.000-1.030) Urine Protein (Negative) Urine Glucose (UA) (Negative) Urine Ketones (Negative) Urine Blood (Negative) Urine Nitrite (Negative) Urine Bilirubin (Negative) Urine Urobilinogen (Negative) Ur Leukocyte Esterase (Negative) Urine WBC (Auto) (0-5) /hpf Urine RBC (Auto) (0-4) /hpf U Hyaline Cast (Auto) (0-5) /lpf U Epithel Cells (Auto) (0-5) /lpf Urine Bacteria (Auto) (Negative) Amorphous Sediment (None Prsent) Granular Casts (0) /lpf WBC Casts (0) /lpf Urine Yeast COVID-19 Eval Order SARS-CoV-2 (PCR) (Negative) Influenza Type A (PCR) (Neg) Influenza Type B (PCR) (Neg) RSV (RT-PCR) (Neg) Blood Type Antibody Screen Crossmatch Diagnostic Findings SINGLE VIEW CHEST CLINICAL HISTORY: Dyspnea. FINDINGS: An AP, portable, upright chest radiograph is compared to chest x-ray dated 02/04/2021 and correlated with chest CT dated 03/12/2020. The examination is degraded by portable technique and patient rotation. A left subclavian central venous infusion port is unchanged in position. The heart is top normal in size noting atherosclerotic calcification of the thoracic aorta. The pulmonary vasculature is noncongested. Advanced emphysema and chronic interstitial thickening are similar to previous. There is a small left pleural effusion with left basilar consolidation. Scarring/atelectasis is noted at the right lung base. No pneumothorax is seen. The skeletal structures are osteopenic. The bony thorax is grossly intact. Surgical clips are seen in the right lower neck. IMPRESSION: 1. Cardiomegaly and advanced emphysema. 2. There is airspace consolidation at the left lung base with a small left pleural effusion. Correlate clinically for evidence of pneumonia/aspiration pneumonitis. Radiographic follow-up to resolution is recommended. ACT 112: Negative or not required by law. T SCAN OF THE CHEST, ABDOMEN, AND PELVIS WITH IV CONTRAST; CT SCAN OF THE THORACIC SPINE WITHOUT IV CONTRAST; CT SCAN OF THE LUMBAR SPINE WITHOUT IV CONTRAST CLINICAL HISTORY: Lethargy. Lung cancer. Thoracic and lumbar back pain. COMPARISON STUDY: Chest CT dated 03/12/2020. Abdominal CT dated 01/15/2021. PET/CT dated 07/28/2020. TECHNIQUE: Following the IV administration of 89 of Optiray 300, CT scan of the chest, abdomen, and pelvis was performed from the thoracic inlet to the proximal femora. Images are reviewed in the axial, sagittal, and coronal planes. IV contrast was administered without complication. Additionally, unenhanced CT scan of the thoracic spine is performed from the lower cervical spine to the upper lumbar spine and unenhanced CT scan of lumbar spine is performed from the lower thoracic spine to the sacrum. The thoracic and lumbar spinal CT scans are reviewed in the axial, sagittal, and coronal planes. IV contrast was not administered specifically for the spinal CTs. A dose lowering technique was utilized adhering to the principles of ALARA. The examination is degraded by motion artifact, as well as by streak artifact from the arms which could not be elevated above the chest or abdomen. CT DOSE: 1200.32 mGy.cm FINDINGS: CHEST: Thyroid: Imaged portions of the thyroid gland are normal in size and attenuation. Thoracic aorta: There is atherosclerotic calcification of the thoracic aorta, which is normal in caliber and demonstrates standard 3-vessel arch anatomy. No dissection is seen. There is at least moderate stenosis of the proximal left subclavian artery. Pulmonary vasculature: The pulmonary trunk is normal in caliber. There are no filling defects identified in the central pulmonary vessels to indicate pulmonary embolus. Note that this examination was not protocoled for evaluation of the pulmonary arteries. Heart: A left subclavian central venous infusion port is in place. The heart is normal in size noting trace pericardial effusion. The coronary arteries are densely calcified. Lungs and pleural spaces: Emphysematous change is noted. The trachea and central airways are clear. There are trace pleural effusions with bibasilar scarring/atelectasis. There is no airspace consolidation typical for pneumonia or pneumothorax. Is only minimal residual right perihilar nodularity at the site of the previously treated mass lesion. This measures up to 1.4 cm as seen on image #179. No new pulmonary lesion is identified. Mediastinum: There is no mediastinal lymphadenopathy. Noy: Clear. Axillae: There is no axillary lymphadenopathy. Bony thorax: The skeletal structures are osteopenic. See below for dedicated assessment of the thoracic spine. No lytic or blastic lesions are identified. THORACIC SPINE: There is a superior endplate compression deformity of T10 with [id number] loss of height. This is new from recent prior examinations. There are minimal superior endplate compression deformities in the mid to upper thoracic region. The transverse and spinous processes are intact. The disc spaces are preserved. There is no evidence of large disc herniation or high- grade central canal stenosis by CT. The paraspinous soft tissues are normal in appearance. Soft tissues: There is body wall edema. ABDOMEN AND PELVIS: Liver: The contrast-enhanced liver is normal in size, contour, and attenuation. There is no intrahepatic biliary ductal dilatation. The hepatic veins and portal veins are patent. Gallbladder: Unremarkable. Spleen: Normal in size and attenuation. There are calcified splenic granulomas. Pancreas: Mildly atrophic and grossly unremarkable. Adrenal glands: A 2 cm left adrenal nodule is unchanged from prior studies. The right adrenal gland is normal in appearance. Kidneys: The contrast enhanced kidneys demonstrate mild cortical atrophy. There is mild left-sided hydroureteronephrosis. No hydronephrosis is seen on the right. The kidneys enhance symmetrically. Small renal cysts measure up to 2 cm. Additional subcentimeter cortical hypodensities also likely represent cysts but are too small for definitive characterization. Abdominal vasculature: The abdominal aorta is normal in course and caliber noting advanced atherosclerotic calcification. Bowel: There is postoperative change of distal colonic resection with left lower quadrant colostomy. No bowel obstruction is seen. A rectal stump is noted in the pelvis. The appendix is not identified and reported surgically absent. Peritoneum: No intraperitoneal free air is identified. Midline skin clips are noted. There is a 4.7 x 6.2 x 1.8 cm fluid collection identified within the subcutaneous fat surrounding the ostomy, best seen on axial image #225. A surgical drain is present in the left pelvis from a ventral pelvic approach. There are multiple loculated fluid collections identified throughout the pelvis. The largest is located along the left pelvic sidewall seen on image #314. This measures 4.4 x 3.9 x 3.0 cm. A collection in the right presacral region measures 3.5 x 6.7 x 2.5 cm as seen on image #295. A serpiginous collection the right ventral pelvis on image #302 measures approximately 4 x 1 cm. Lymphadenopathy: None. Pelvic viscera: Evaluation of the pelvis is degraded by streak artifact from a left hip arthroplasty. The bladder wall is circumferentially thickened is pericystic inflammation. There are calcified uterine fibroids. Skeletal structures: The skeletal structures are osteopenic. See below for dedicated assessment of the lumbar spine. No lytic or blastic lesions are seen. A left hip arthroplasty is in place. The bony pelvis and proximal femora appear intact. LUMBAR SPINE: There are compression deformities of L1, L2, L3, and L4. There is mild/moderate loss of height at L1 with mild loss of height at L2 and L3. Minimal loss of height is seen at L4. The L1 compression deformity is new from 01/15/2021 and likely acute to subacute. Interval superior endplate compression deformity of L4 is also new from previous. The L2 and L3 compression deformities are unchanged. The transverse and spinous processes are intact. There is no evidence of spondylolysis. There is moderate to advanced disc space narrowing at L5 5 to S1. The remaining disc spaces appear maintained. There is no evidence of large disc herniation or high-grade stenosis by CT. There is fatty atrophy of the paraspinous musculature. IMPRESSION: 1. Emphysema. 2. There are trace pleural effusions with bibasilar scarring/atelectasis. No airspace consolidation is seen typical for pneumonia. 3. There is only minimal residual nodularity/scarring in the right perihilar region at the site of the previously characterized mass lesion. 4. There is postoperative change of distal colon resection with left lower quadrant colostomy. 5. There is no bowel obstruction. 6. There is a loculated fluid collection within the subcutaneous fat around the ostomy site. This could represent seroma versus abscess and clinical correlation will be required. 7. A surgical drain is present in the left pelvis. 8. There are numerous loculated fluid collections in the pelvis as detailed above typical for abscesses. 9. There are compression deformities of T10, L1, and L4 as detailed above. These are new from recent prior studies and likely acute to subacute. Correlate for point tenderness. 10. Additional thoracolumbar compression deformities are chronic. 11. An indeterminant left adrenal nodule is similar to prior studies. 12. The bladder wall appears thickened and there is pericystic inflammation. Correlate clinically and with urinalysis for evidence of cystitis. 13. There is body wall edema. 14. Mild left hydronephrosis is likely related to the inflammatory process in the left pelvis. 15. Additional findings as above. ACT 112: Negative or not required by law. Electronically signed by: Jeffry Sotomayor M.D. 02/04/2021 7:18 PM Dictated: 02/04/[id number]: 02/04/211914 == LTRASOUND LEFT LOWER EXTREMITY VENOUS CLINICAL HISTORY: Left leg swelling. COMPARISON STUDY: Bilateral lower extremity venous ultrasound dated 03/02/2020. TECHNIQUE: Real-time, grayscale, and color Doppler sonography of the deep veins of the left lower extremity was performed from the inguinal crease to the calf. Compression and augmentation were utilized. FINDINGS: There is nonocclusive thrombus identified within 1 of paired left popliteal veins. The common femoral and superficial femoral veins are patent and normally compressible. The greater saphenous vein and the profunda femoris vein at the junction with the common femoral vein are clear. The visualized calf veins are patent. Soft tissue edema is noted in the calf. IMPRESSION: There is nonocclusive deep venous thrombosis identified within 1 of paired left popliteal veins ACT 112: Negative or not required by law. Electronically signed by: Jeffry Sotomayor M.D. 02/04/2021 6:28 PM Dictated: 02/04/211825Transcribed: 02/04/211825 T SCAN OF THE BRAIN WITHOUT IV CONTRAST CLINICAL HISTORY: Lethargy. COMPARISON STUDY: CT of the brain dated 03/12/2020. TECHNIQUE: Unenhanced axial CT scan of the brain is performed from the vertex to the skull base. A dose lowering technique was utilized adhering to the principles of ALARA. FINDINGS: Brain parenchyma: There are age-related involutional changes noting mild subcortical and periventricular microangiopathic change. There is no hemorrhage, mass effect, or evidence of acute territorial ischemia by CT criteria. Orozco- white matter differentiation is preserved. No extra-axial fluid collection is seen. Ventricles, sulci, cisterns: Prominent secondary to involutional change. Intracranial vasculature: There is atherosclerotic calcification of the cavernous carotid and vertebral arteries. Calvarium: Unremarkable. Sinuses and mastoids: The visualized paranasal sinuses are clear. The mastoid air cells are well pneumatized. Orbits: The bony orbits are grossly intact. There are bilateral ocular lens implants. IMPRESSION: There is no hemorrhage, mass effect, or evidence of acute territorial ischemia by CT criteria. ACT 112: Negative or not required by law. Electronically signed by: Jeffry Sotomayor M.D. 02/04/2021 6:26 PM Dictated: 02/04/211823Transcribed: 02/04/211823 Code Status & VTE Plan VTE Prophylaxis Plan VTE Prophylaxis will be ordered: Yes PG Care Time/CCT Total # of Minutes Spent Total Time Spent with Patient: Total time spent is greater than 50% in coordination of care (as documented) at patient's floor/unit and/or counseling patient: Coding Level of Care Code 03961 Initial Inpt Care Lvl 3 Diagnoses Altered mental status R40.0 Altered mental status type: somnolence Hypomagnesemia E83.42 Hypokalemia E87.6 Elevated troponin R77.8 Abdominal abscess Compression fracture DVT (deep venous thrombosis) I82.402 Affected thrombotic vein of extremity: unspecified vein of extremity Chronicity: acute DVT location: lower extremity Laterality: left Chronic use of steroids Anemia D64.9 Anemia type: unspecified type Lung cancer metastatic to bone C34.90; C79.51 GERD (gastroesophageal reflux disease) K21.9 Esophagitis presence: without esophagitis COPD (chronic obstructive pulmonary disease) J44.9 COPD type: unspecified COPD Depression F32.9 Depression Type: major depressive disorder Major depression recurrence: unspecified whether recurrent Active/Remission status: remission status unspecified (1) Altered mental status Altered mental status type: somnolence Qualified Code(s): R40.0 - Somnolence (2) DVT (deep venous thrombosis) Affected thrombotic vein of extremity: unspecified vein of extremity Chronicity: acute DVT location: lower extremity Laterality: left Qualified Code(s): I82.402 - Acute embolism and thrombosis of unspecified deep veins of left lower extremity (3) Anemia Anemia type: unspecified type Qualified Code(s): D64.9 - Anemia, unspecified (4) GERD (gastroesophageal reflux disease) Esophagitis presence: without esophagitis Qualified Code(s): K21.9 - Gastro- esophageal reflux disease without esophagitis (5) COPD (chronic obstructive pulmonary disease) COPD type: unspecified COPD Qualified Code(s): J44.9 - Chronic obstructive pulmonary disease, unspecified (6) Depression Depression Type: major depressive disorder Major depression recurrence: unspecified whether recurrent Active/Remission status: remission status unspecified Qualified Code(s): F32.9 - Major depressive disorder, single episode, unspecified
[2021-02-05] MEDS ORDERED: ALBUTEROL 0.083% NEBU SOLN 3 ML VIAL INH PRN (03:00)
[2021-02-05] MEDS: POTASSIUM CHLORIDE / WTR 10 MEQ/100 ML PLCT IV SCH ×4 (03:45→06:57)
[2021-02-05] MEDS: MAGNESIUM SULFATE / D5W 1 GM/100 ML BAG IV SCH ×4 (05:50→12:33)
[2021-02-05] MEDS: LEVOTHYROXINE SODIUM 100 MCG TABLET PO SCH ×2 (06:03→06:08)
[2021-02-05] MEDS: MEROPENEM 500 MG in SYRINGE 0 ML IV SCH ×3 (06:04→23:06)
[2021-02-05 07:49] LABS: Partial Thromboplastin Ratio 1.5; Partial Thromboplastin Time 38.6 Seconds (21.0-31.0)
[2021-02-05 08:13] LABS: Creatinine Clr Calc Pharmacy 45.7 ml/min; Est GFR (African American) 77.2; Est GFR (Non-African American) 66.6; Magnesium 2.1 mg/dl (1.8-2.4)
[2021-02-05 08:18] LABS: Troponin I 0.431 ng/ml (0-0.045)
[2021-02-05] MEDS: FAMOTIDINE 20 MG in SYRINGE 3 ML IV SCH (08:39)
[2021-02-05] MEDS: methylPREDNISolone 10 MG in SYRINGE 0 ML IV SCH (08:39)
[2021-02-05] MEDS: FOLIC ACID 1 MG in SYRINGE 9.8 ML IV SCH (08:39)
--- NOTE | 2021-02-05 09:50 | Electrocardiogram Report ---
Test Reason : Blood Pressure : / mmHG Vent. Rate : 082 BPM Atrial Rate : 082 BPM P-R Int : 122 ms QRS Dur : 088 ms QT Int : 466 ms P-R-T Axes : 067 000 -14 degrees QTc Int : 544 ms Poor data quality, interpretation may be adversely affected Normal sinus rhythm Low voltage QRS Septal infarct , age undetermined T wave abnormality, consider anterior ischemia Abnormal ECG When compared with ECG of 24-DEC-2020 16:17, Significant changes have occurred Confirmed by Chirag Carranza ([id number]) on 02/05/2021 9:50:14 AM Referred By: Zion Bartholomew Confirmed By:Chirag Carranza
[2021-02-05] MEDS ORDERED: VANCOMYCIN HCL 750 MG in SODIUM CHLORIDE 0.9% 250 ML IV ONE (10:30)
--- NOTE | 2021-02-05 10:41 | Pharmacy Report ---
Pharmacy Abx Initial Consult - Date of Service February 05, 2021 - Pharmacy Dosing Scope Date of Consult: 02/05/21 Consultation requested by: Dr. Emily Hollis Pharmacy is consulted to initiate VANCOMYCIN/MEROPENEM IV dosing therapy, order appropriate labs and adjust drug dose/frequency. - Subjective The patient is a 80 year old F admitted on 02/04/21 22:10. - Objective Height: 5 ft 3 in Weight: 58.6 kg Vital Signs (Past 12hrs): Vital Signs Temp Pulse Pulse Resp BP BP Pulse Ox 02/05/21 07:22 36.3 C L 74 16 130/74 100 02/05/21 06:19 70 02/05/21 05:23 70 02/05/21 04:30 36.2 C L 66 18 129/80 100 02/05/21 03:30 36.2 C L 63 18 96/60 L 100 02/05/21 03:00 36.0 C L 63 18 107/56 L 100 02/05/21 02:30 35.8 C L 61 18 101/60 100 02/05/21 02:15 35.1 C L 62 18 100/57 L 100 02/05/21 02:14 35.1 C L 62 18 100/57 L 02/05/21 02:02 34.7 C L 62 16 106/67 02/05/21 02:00 34 C L 62 16 106/67 100 02/05/21 00:28 37.4 C 65 20 103/59 L 100 02/04/21 22:30 69 16 94/49 L 100 Lab Results (24hrs): Laboratory Tests (24 Hours) 02/05/21 02/05/21 02/04/21 07:11 07:11 15:05 WBC Neut # (Auto) Creatinine 0.84 1.11 D Est Cr Clr Drug Dosing 45.7 34.6 Random Vancomycin 19.1 02/04/21 15:05 WBC 12.91 H Neut # (Auto) 10.16 H Creatinine Est Cr Clr Drug Dosing Random Vancomycin Micro Results: 02/04/21 20:27 Urine Culture - Pending Urine,Clean Catch 02/04/21 17:02 Aerobic Blood Culture - Pending Blood Anaerobic Blood Culture - Pending 02/04/21 17:02 Aerobic Blood Culture - Pending Blood Anaerobic Blood Culture - Pending - Assessment & Plan Assessment 80 year old F admitted with progressive weakness/lethargy. Currently receiving outpatient treatment for abdominal abscess. Plan Continue Vancomycin and Meropenem for treatment of abdominal abscess. Vancomycin IV * Patient has been receiving Vancomycin through [facility] in [place]. * [facility] as [facility]'s daughter, Aydee. * Patient has been receiving Vancomycin 750mg IV q12h, last dose was 02/04 0900. * Per Leah, she has been on this dose since 02/01/21 and the most recent trough level on 02/03 was 15.4 mcg/mL. * Trough level drawn this am = 19.1 mcg/mL (~22 hours since last dose). * Will give Vancomycin 750mg (~13mg/kg) IV x 1 dose now. Random level ordered for tonight (02/05) at 2100. * If this level is THERAPEUTIC, consider resuming home Vancomycin dose of 750mg IV q12h and cancel random level ordered for 5/9 am. * IF this level is SUPRATHERAPEUTIC, continue with random level ordered for 59 am and dose accordingly at that time. Meropenem IV * Home dose of Meropenem 500mg IV q8h is appropriate to continue. Pharmacy will continue to follow and will adjust dose/frequency as necessary. Thank you.
[2021-02-05] MEDS: CALCITONIN SALMON NA 200 IU/AC 3.7 ML BTL SCH (13:00)
[2021-02-05] MEDS: CITALOPRAM 40 MG TAB PO SCH (13:00)
[2021-02-05] MEDS: ASPIRIN 81 MG ECTAB PO SCH (13:00)
[2021-02-05] MEDS: oxyCODONE HCL IR 5 MG TAB (IMMEDIATE RELEASE) PO PRN (14:39)
--- NOTE | 2021-02-05 15:18 | XCELERA ---
[id number]\[id number]
[2021-02-05 15:21] LABS: Partial Thromboplastin Ratio 1.4; Partial Thromboplastin Time 37.9 Seconds (21.0-31.0)
[2021-02-05] MEDS: FLUCONAZOLE 100 MG TAB PO SCH (15:56)
[2021-02-05] MEDS ORDERED: HEPARIN SOD (PORCINE) 1000 UNIT/ML IV ONE (16:00)
[2021-02-05] MEDS ORDERED: NYSTATIN SUSP 500,000 U/5 ML UDC PO SCH (17:00)
[2021-02-05 18:29] LABS: Hematocrit (blood only) 28.1 % (37-47); Mean Corpuscular Hemoglobin 30.3 pg (25-34); Mean Corpuscular Volume 94.6 fL (80-100); Mean Platelet Volume 8.9 fL (7.4-10.4); Platelet Count 304 K/uL (130-400); RDW Coefficient of Variation 15.1 % (11.5-14.5); RDW Standard Deviation 52.2 fL (36.4-46.3); Red Blood Count 2.97 M/uL (4.2-5.4); White Blood Count 12.41 K/uL (4.8-10.8)
--- NOTE | 2021-02-05 22:31 | Hospitalist Progress Note ---
Date of Service February 05, 2021 Assessment & Plan (1) Altered mental status: Somnolence. May be multi factorial: Medication effects from opiates -Frequent orientation -Follow cultures -Correction of metabolic derangements as below (2) Hypomagnesemia: Mg=1.2 -Repletion with Magnesium x 4 gm -Improved (3) Hypokalemia: K=3.1 -Repletion with K-riders -Repeat chemistry in AM (4) Elevated troponin: Patient denies chest pain -Telemetry monitoring -trop trending down. -echo shows no wall motion abnormalities -Continue ASA (5) Abdominal abscess: S/p surgical drainage at [facility] -Request records -Continue Meropenem and Vancomycin as recommended -Follow cultures -Wound/Ostomy consultation appreciated -Per daughter there will be no further surgeries in the future (6) Compression fracture: Patient with significant back pain secondary to compression fractures -Palliative care consultation appreciated -Consider Ortho consultation - daughter mentioned possible kyphoplasty -Dilaudid as needed for pain control (7) DVT (deep venous thrombosis): LLE popliteal DVT. Provoked - recent surgery - patient at high risk due to underlying malignancy -Heparin gtt - low dose, no bolus -Discussed with [facility] Surgery telephone interviewer prior to initiation -Monitor GREGG output for bleeding (8) Chronic use of steroids: Patient on Prednisone -Solumedrol 10mg daily IV -Low threshold for stress dosing should patient become hypotensive (9) Anemia: Hgb=7.7 which is lower than prior values. Possibly contributing to patient's fatigue -Transfuse 1u PRBCs -cbc has improved will monitor (10) Lung cancer metastatic to bone: Patient is to see oncology this coming week to discuss next steps in care. No immediate concerns -Monitor -Consider repeat PET-CT to assess extent of bony metastases (11) GERD (gastroesophageal reflux disease): Chronic -Continue Pepcid (12) COPD (chronic obstructive pulmonary disease): Chronic. Patient with wheezing -Albuterol as needed (13) Depression: Chronic -Continue Celexa 40mg po daily F/E/N - Heplock, Electrolyte repletion as above, NPO for now, ADAT as mental status improves, Folic Acid IV, try to reduce pill burden given patient's level of somnolence Ppx - Heparin gtt as above for DVT Code - DNR/DNI per discussion with daughter Dispo - Admit to medical/tele POC - Daughter Aydee = [phone] Admission and Anticipated Discharge Date Admission Date: February 04, 2021 Subjective Patient has no new cymptoms. Review of Systems Review of Systems: All systems reviewed & are unremarkable except as noted in HPI & below Physical Exam Physical Exam: General: ifemale patient resting comfortably, NAD, oriented to self and hospital HEENT: NC/AT, PERRL, anicteric sclera, conjunctiva without injection, external ear normal to inspection and nontender, nares patent, dry mucus membranes, dentition intact, no oropharyngeal lesions, neck supple, trachea midline, no LAD, no thyromegaly, no JVD Heart: +S1/S2, regular, no m/r/g Lungs: equal air entry bilaterally, scattered wheezes throughout Abd: +BS diminished, dressings and binder in place - ney assessed - small area of dehiscence with drainage at caudal end of surgical wound, GREGG drain in place with small amount of purulent drainage, ostomy in place Ext: warm, 2+ pulses in UE/LE bilaterally, no clubbing/cyanosis, +pitting LE edema Neuro: nonfocal, patient somnolent, speech intact, no facial droop, moving all extremities on command with equal strength 5/5 Results & Data Results & Data ([facility]) Vital Signs (Past 12 Hours) Vital Signs Temp Pulse Pulse Resp BP Pulse Ox 02/05/21 19:34 37 C 84 16 157/71 H 98 02/05/21 15:31 76 02/05/21 15:26 36.9 C 81 18 144/71 H 98 02/05/21 11:28 36.6 C 76 16 128/76 100 PG Care Time/CCT Total # of Minutes Spent Total Time Spent with Patient: Total time spent is greater than 50% in coordination of care (as documented) at patient's floor/unit and/or counseling patient: Coding Level of Care Code 63037 Subseq Hosp Care Lvl 3 Diagnoses Altered mental status R40.0 Altered mental status type: somnolence Hypomagnesemia E83.42 Hypokalemia E87.6 Elevated troponin R77.8 Abdominal abscess Compression fracture DVT (deep venous thrombosis) I82.402 Affected thrombotic vein of extremity: unspecified vein of extremity Chronicity: acute DVT location: lower extremity Laterality: left Chronic use of steroids Anemia D64.9 Anemia type: unspecified type Lung cancer metastatic to bone C34.90; C79.51 GERD (gastroesophageal reflux disease) K21.9 Esophagitis presence: without esophagitis COPD (chronic obstructive pulmonary disease) J44.9 COPD type: unspecified COPD Depression F32.9 Active/Remission status: remission status unspecified Depression Type: major depressive disorder Major depression recurrence: unspecified whether recurrent (1) DVT (deep venous thrombosis) Affected thrombotic vein of extremity: unspecified vein of extremity Chronicity: acute DVT location: lower extremity Laterality: left Qualified Code(s): I82.402 - Acute embolism and thrombosis of unspecified deep veins of left lower extremity (2) Anemia Anemia type: unspecified type Qualified Code(s): D64.9 - Anemia, unspecified (3) Depression Active/Remission status: remission status unspecified Depression Type: major depressive disorder Major depression recurrence: unspecified whether recurrent Qualified Code(s): F32.9 - Major depressive disorder, single episode, unspecified (4) Altered mental status Altered mental status type: somnolence Qualified Code(s): R40.0 - Somnolence (5) COPD (chronic obstructive pulmonary disease) COPD type: unspecified COPD Qualified Code(s): J44.9 - Chronic obstructive pulmonary disease, unspecified (6) GERD (gastroesophageal reflux disease) Esophagitis presence: without esophagitis Qualified Code(s): K21.9 - Gastro- esophageal reflux disease without esophagitis
[2021-02-05 22:50] LABS: Partial Thromboplastin Ratio 1.7
[2021-02-06] MEDS: HEPARIN SODIUM/DEXTROSE 25,000 UNITS/500 ML BAG IV SCH (05:52)
[2021-02-06] MEDS: MEROPENEM 500 MG in SYRINGE 0 ML IV SCH ×3 (05:54→21:00)
[2021-02-06 06:08] LABS: Partial Thromboplastin Ratio 1.7; Partial Thromboplastin Time 44.5 Seconds (21.0-31.0)
[2021-02-06 06:23] LABS: Creatinine Clr Calc Pharmacy 49.8 ml/min; Est GFR (African American) 85.7
--- NOTE | 2021-02-06 08:07 | Orthopedic Consultation ---
Date of Consultation February 06, 2021 Assessment & Plan (1) Back spasm: At this point the patient has multiple medical issues. There are multiple compression fractures. For further evaluation I would recommend her undergo MRIs of both the thoracic and lumbar spine if medically stable. This would help determine the acuity and healing process of the fractures that she has dealt determine if she is a candidate for a kyphoplasty and biopsy. Again there is significant concern that some of these fractures may be due to metastatic disease as she has a history of lung cancer and breast cancer have previously metastasized to bone. When she is medically able to undergo the studies we will review those and make further recommendations. History of Present Illness Attending Physician: Wily Leyva History of Present Illness Patient is a 80-year-old female who was admitted through the emergency room on 02/04/2021. She has a history segment for lung cancer as well as a recent abdominal surgery for an abscess. She was lethargic and confused and brought to the emergency room and admitted to the medical service. On CT scan it was noted that she had multiple compression fractures with a new T10, L1, and L4 fracture compared to previous studies. Due to her pain we are consulted to determine whether or not she is a surgical candidate for possible kyphoplasty. She was seen this morning bedside in room 282. She had some difficulties answering questions but did state that she had pain in her back itself. She did not complain of any leg symptoms. She denied any numbness or tingling. Allergies Allergy/AdvReac Type Severity Reaction Status Date / Time nickel Allergy Intermediate Rash Verified 02/04/21 16:11 venlafaxine AdvReac Intermediate Hypertensio Verified 02/04/21 16:11 n,Headache clarithromycin AdvReac Mild Nausea/Vomi Verified 02/04/21 16:11 ting codeine AdvReac Mild UPSET Verified 02/04/21 16:11 STOMACH hydrocodone AdvReac Mild Nausea/Vomi Verified 02/04/21 16:11 ting metronidazole [From Flagyl] AdvReac Mild Gastrointestinal Verified 02/04/21 16:11 Upset Home Medications Medication Instructions Recorded Confirmed Type folic acid 1 mg PO QAM 08/04/19 02/04/21 History citalopram 40 mg tablet 40 mg PO QAM #90 tab 01/09/20 02/04/21 Rx magnesium oxide 400 mg PO BID #20 tab 02/29/20 02/04/21 Rx prochlorperazine maleate 5 mg PO TID PRN 03/12/20 02/04/21 History [Compazine] aspirin 81 mg PO DAILY 08/09/20 02/04/21 History benzonatate 100 mg capsule 100 mg PO TID PRN #60 cap 09/01/20 02/04/21 Rx levothyroxine 100 mcg tablet 100 mcg PO QAM #90 tab 09/03/20 02/04/21 Rx pantoprazole 40 mg tablet,delayed 40 mg PO QAM #90 tab 11/05/20 02/04/21 Rx release lorazepam 0.5 mg tablet 0.5 mg PO Q12H PRN #60 tab 11/25/20 02/04/21 Rx prednisone 10 mg PO DAILY 12/24/20 02/04/21 History fluconazole 200 mg tablet 200 mg PO Q72H PRN #5 tab 12/29/20 02/04/21 Rx ondansetron HCl 8 mg tablet 8 mg PO Q12H #60 tab 12/29/20 02/04/21 Rx potassium chloride 10 mEq 20 meq PO BID #180 tab 12/29/20 02/04/21 Rx tablet,extended release diazepam 5 mg tablet See Rx Instructions PO .COMPLEX 01/31/21 02/04/21 Rx PRN #30 tab calcitonin (salmon) 200 1 spray INTRANASAL (ALT) DAILY 02/04/21 02/04/21 Rx unit/actuation nasal spray #3.7 ml hydromorphone 2 mg tablet 2 mg PO Q6H #28 tab 02/04/21 02/04/21 Rx oxycodone 5 mg PO DIRECTED PRN 02/04/21 02/04/21 History torsemide 10 mg tablet 10 mg PO .QOD PRN #20 tab 02/04/21 02/04/21 Rx vancomycin 0 mg IV DIRECTED 02/04/21 02/04/21 History Patient History Medical History Adenocarcinoma, lung Adrenal cortical adenoma Anasarca Anxiety Arthritis Biceps tendonitis Cataract COVID-19 virus antibody negative Depression Esophageal dyskinesia Essential hypertriglyceridemia Fatigue Gastritis Gastroesophageal reflux disease History of bronchitis History of diverticulitis Hyperlipidemia Hypomagnesemia Hypothyroidism Intermittent hydrarthrosis of elbow Irritable bowel syndrome Lung cancer NEW DX Metastatic bone cancer radiation treatments completed 08/25/19. Olecranon bursitis Osteoarthritis Osteopenia Pneumonia hx SBO (small bowel obstruction) Sialoadenitis Small bowel obstruction Surgical History History of cataract surgery RT/LEFT History of colonoscopy Dr. Veronica 12/2011 History of dilatation and curettage History of discectomy CERVICAL (GOOD ROM) History of repair of rotator cuff RT History of tooth extraction S/P section X 1 S/P hip replacement left. 07/02/2019. SAB with MAC. no issues. Status post Patricio procedure Surgery, elective Revision of Meeks for stricture Surgery, elective 01/19/21 Partial proctectomy, takedown of enterocutaneous fistula, partial small bowel resection, repair of parastomal hernia Family History Family/Other Family history of diabetes mellitus Brother Family hx of colon cancer Mother , age 66 Diabetes Cancer ovarian Coronary heart disease had acute VT which led to her Sister Cancer Family/Other Breast cancer Father , age 49 Suicide Alcoholism Social History Smoking Status: Current every day smoker Tobacco Type: Cigarettes Age Started Using Tobacco: 21; packs per day: 0.5; Cigarettes Per Day: 10; Second Hand Exposure: No; Hx Alcohol Use: Yes Alcohol type: wine Hx Substance Use: Yes Last Used Substance: Unknown Last Used Substance Other:: 12/23/20 Substance Use Type Other:: medical Preferred Language: Gu[place] Communication Ability: Effective Visual Impairment: No Limitations Hearing Ability: Normal 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 She knows that she is in the hospital but cannot tell me which 1. She follows commands. She is able to lift her heels off the bed. Dorsiflexion plantarflexion have full strength. She was able to logroll to the side and is nontender to palpation but logrolling did cause tenderness. Sensation was intact to light touch. Her calves were supple nontender. Results & Data ([facility]) Vital Signs (Past 12 Hours) Vital Signs Temp Pulse Pulse Resp BP BP Pulse Ox 02/06/21 07:24 73 02/06/21 07:08 36.4 C L 76 18 168/80 H 99 02/06/21 03:53 36.4 C L 74 18 146/79 H 99 02/06/21 03:28 64 02/05/21 23:00 36.4 C L 69 18 139/[address] scan of the thoracic spine was reviewed. There is a T10 compression fracture with both superior and inferior endplate deformities. No retropulsed fragments are noted. CT scan of lumbar spine is available by report. This revealed new L1 and L4 compression fractures per the report there were old L2 and L3 fractures that were noted on previous study. There is no mention of any retropulsed fragments. There was disc base narrowing and degenerative disc disease at L5-S1.
[2021-02-06] MEDS: ASPIRIN 81 MG ECTAB PO SCH (08:36)
[2021-02-06] MEDS: CITALOPRAM 40 MG TAB PO SCH (08:36)
[2021-02-06] MEDS: CALCITONIN SALMON NA 200 IU/AC 3.7 ML BTL SCH (08:37)
[2021-02-06] MEDS: FAMOTIDINE 20 MG in SYRINGE 3 ML IV SCH (08:37)
[2021-02-06] MEDS: FOLIC ACID 1 MG in SYRINGE 9.8 ML IV SCH (08:37)
[2021-02-06] MEDS: methylPREDNISolone 10 MG in SYRINGE 0 ML IV SCH (08:37)
--- NOTE | 2021-02-06 10:33 | Pharmacy Report ---
Pharmacy Abx Dose Short Note - Date of Service February 06, 2021 - Assessment & Plan Assessment 80 year old F receiving IV Vancomycin and Meropenem for treatment of abdominal abscess Day # 2 of inpatient antimicrobial therapy. * Patient was on Vancomycin 750mg IV q12 and Meropenem 1g IV q8 prior to admission; unclear first date of therapy and unclear duration. Please see Pharmacy note 02/05/21 for more details * Last Vancomycin dose of 750mg IV was given yesterday 02/05 @ 1030 Plan Vancomycin * Random level yesterday on 02/05 @ 2055 was supratherapeutic at 21.5 mg/dL. Repeat random level today 02/06 @ 0542 of 20.1 mg/dL was still slightly supratherapeutic. Very surprised that Vancomycin level did decline more in 9 hours; based on these 2 random levels, calculated Ke = 0.0075/hr, which would suggest a half-life of 92.4 hours, which certainly does not make any sense... Renal function also appears to be improving vs. at time of admission. Unclear why Vancomycin needs appear drastically different vs. home regimen of q12 dosing. Anticipate that Vancomycin should be <20 mg/dL by 1100, so will give another dose at that time. * Give Vancomycin 750mg IV x 1 today 02/06 @ 1100 * Goal trough level for abdominal abscess : 15 to 20 mcg/mL * Trough level ordered for: 02/07/21 @ 1030 to assess whether q24 dosing is appropriate Pharmacy will continue to follow and will adjust dose/frequency as necessary. Thank you.
[2021-02-06] MEDS ORDERED: VANCOMYCIN HCL 750 MG in SODIUM CHLORIDE 0.9% 250 ML IV ONE (11:00)
[2021-02-06] MEDS: oxyCODONE HCL IR 5 MG TAB (IMMEDIATE RELEASE) PO PRN (12:08)
[2021-02-06 12:33] LABS: Basophils # (auto) 0.01 K/uL (0-0.2); Basophils % (auto) 0.1 %; Eosinophils # (auto) 0.02 K/uL (0-0.5); Eosinophils % (auto) 0.2 %; Hematocrit (blood only) 29.3 % (37-47); Hemoglobin 9.3 g/dL (12.0-16.0); Immature Granulocytes # (auto) 0.04 K/uL (0.00-0.02); Immature Granulocytes % (auto) 0.3 %; Lymphocytes # (auto) 0.38 K/uL (1.2-3.4); Lymphocytes % (auto) 3.1 %; Mean Corpuscular Hemoglobin 30.4 pg (25-34); Mean Corpuscular Hgb Conc 31.7 g/dL (32-36); Mean Corpuscular Volume 95.8 fL (80-100); Mean Platelet Volume 8.8 fL (7.4-10.4); Monocytes # (auto) 0.29 K/uL (0.11-0.59); Monocytes % (auto) 2.4 %; Neutrophils # (auto) 11.59 K/uL (1.4-6.5); Neutrophils % (auto) 93.9 %; Platelet Count 292 K/uL (130-400); RDW Coefficient of Variation 14.8 % (11.5-14.5); RDW Standard Deviation 51.1 fL (36.4-46.3); Red Blood Count 3.06 M/uL (4.2-5.4); White Blood Count 12.33 K/uL (4.8-10.8)
[2021-02-06 12:55] LABS: BUN Creatinine Ratio 19.1 (10-20); Calcium 7.8 mg/dl (8.5-10.1); Creatinine Clr Calc Pharmacy 56.4 ml/min; Est GFR (African American) 97.1; Est GFR (Non-African American) 83.8; Magnesium 2.3 mg/dl (1.8-2.4); Potassium 3.9 mmol/L (3.5-5.1)
[2021-02-06 13:08] LABS: Partial Thromboplastin Ratio 1.6; Partial Thromboplastin Time 43.3 Seconds (21.0-31.0)
[2021-02-06 20:26] LABS: Partial Thromboplastin Ratio 1.5; Partial Thromboplastin Time 38.5 Seconds (21.0-31.0)
--- NOTE | 2021-02-06 21:57 | Hospitalist Progress Note ---
Date of Service February 06, 2021 Assessment & Plan (1) Altered mental status: This appears to have resolved. May be multi factorial: Medication effects from opiates -Frequent orientation -Follow cultures -Correction of metabolic derangements as below (2) Hypomagnesemia: Mg=1.2 -Repletion with Magnesium x 4 gm -Improved -will repeat levels in AM. (3) Hypokalemia: K=3.8 -Repletion with K-riders (4) Elevated troponin: Likely demand ischemia. Patient denies chest pain -Telemetry monitoring -trop trending down. -echo shows no wall motion abnormalities -Continue ASA (5) Abdominal abscess: S/p surgical drainage at [facility] -Request records -Continue Meropenem and Vancomycin as recommended -Follow cultures -Wound/Ostomy consultation appreciated -Per daughter there will be no further surgeries in the future (6) Compression fracture: Patient with significant back pain secondary to compression fractures -Palliative care consultation appreciated -Consider Ortho consultation - daughter mentioned possible kyphoplasty -Dilaudid as needed for pain control (7) DVT (deep venous thrombosis): LLE popliteal DVT. 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 Possibly contributing to patient's fatigue -Transfuse 1u PRBCs -cbc has improved will monitor (10) Lung cancer metastatic to bone: Patient is to see oncology this coming week to discuss next steps in care. No immediate concerns -Monitor -Consider repeat PET-CT to assess extent of bony metastases (11) GERD (gastroesophageal reflux disease): Chronic -Continue Pepcid (12) COPD (chronic obstructive pulmonary disease): Chronic. Patient with wheezing -Albuterol as needed (13) Depression: Chronic -Continue Celexa 40mg po daily F/E/N - Heplock, Electrolyte repletion as above, NPO for now, ADAT as mental status improves, Folic Acid IV, try to reduce pill burden given patient's level of somnolence Ppx - Heparin gtt as above for DVT Code - DNR/DNI per discussion with daughter Dispo - Admit to medical/tele POC - Daughter Aydee = [phone] Admission and Anticipated Discharge Date Admission Date: February 04, 2021 Subjective Patient reports her only complain is her back pain. Review of Systems Review of Systems: All systems reviewed & are unremarkable except as noted in HPI & below Physical Exam Physical Exam: General: ifemale patient resting comfortably, NAD, oriented to self and hospital HEENT: NC/AT, PERRL, anicteric sclera, conjunctiva without injection, external ear normal to inspection and nontender, nares patent, dry mucus membranes, dentition intact, no oropharyngeal lesions, neck supple, trachea midline, no LAD, no thyromegaly, no JVD Heart: +S1/S2, regular, no m/r/g Lungs: equal air entry bilaterally, scattered wheezes throughout Abd: +BS diminished, dressings and binder in place - ney assessed - small area of dehiscence with drainage at caudal end of surgical wound, GREGG drain in place with small amount of purulent drainage, ostomy in place Ext: warm, 2+ pulses in UE/LE bilaterally, no clubbing/cyanosis, +pitting LE edema Neuro: nonfocal, patient somnolent, speech intact, no facial droop, moving all extremities on command with equal strength 5/5 Results & Data Results & Data ([facility]) Vital Signs (Past 12 Hours) Vital Signs Temp Pulse Pulse Resp BP BP Pulse Ox 02/06/21 18:39 36.5 C 71 16 162/78 H 99 02/06/21 15:40 36.5 C 69 16 161/75 H 100 02/06/21 14:44 69 02/06/21 11:09 36.6 C 75 16 167/77 H 99 PG Care Time/CCT Total # of Minutes Spent Total Time Spent with Patient: Total time spent is greater than 50% in coordination of care (as documented) at patient's floor/unit and/or counseling patient: Coding Level of Care Code 81317 Subseq Hosp Care Lvl 3 Diagnoses Altered mental status R40.0 Altered mental status type: somnolence Hypomagnesemia E83.42 Hypokalemia E87.6 Elevated troponin R77.8 Abdominal abscess Compression fracture DVT (deep venous thrombosis) I82.402 Affected thrombotic vein of extremity: unspecified vein of extremity Chronicity: acute DVT location: lower extremity Laterality: left Chronic use of steroids Anemia D64.9 Anemia type: unspecified type Lung cancer metastatic to bone C34.90; C79.51 GERD (gastroesophageal reflux disease) K21.9 Esophagitis presence: without esophagitis COPD (chronic obstructive pulmonary disease) J44.9 COPD type: unspecified COPD Depression F32.9 Active/Remission status: remission status unspecified Depression Type: major depressive disorder Major depression recurrence: unspecified whether recurrent (1) DVT (deep venous thrombosis) Affected thrombotic vein of extremity: unspecified vein of extremity Chronicity: acute DVT location: lower extremity Laterality: left Qualified Code(s): I82.402 - Acute embolism and thrombosis of unspecified deep veins of left lower extremity (2) Anemia Anemia type: unspecified type Qualified Code(s): D64.9 - Anemia, unspecified (3) Depression Active/Remission status: remission status unspecified Depression Type: major depressive disorder Major depression recurrence: unspecified whether recurrent Qualified Code(s): F32.9 - Major depressive disorder, single episode, unspecified (4) Altered mental status Altered mental status type: somnolence Qualified Code(s): R40.0 - Somnolence (5) COPD (chronic obstructive pulmonary disease) COPD type: unspecified COPD Qualified Code(s): J44.9 - Chronic obstructive pulmonary disease, unspecified (6) GERD (gastroesophageal reflux disease) Esophagitis presence: without esophagitis Qualified Code(s): K21.9 - Gastro- esophageal reflux disease without esophagitis
[2021-02-07 03:05] LABS: Eosinophils # (auto) 0.02 K/uL (0-0.5); Eosinophils % (auto) 0.2 %; Hematocrit (blood only) 26.4 % (37-47); Hemoglobin 8.5 g/dL (12.0-16.0); Immature Granulocytes # (auto) 0.06 K/uL (0.00-0.02); Immature Granulocytes % (auto) 0.6 %; Lymphocytes # (auto) 0.53 K/uL (1.2-3.4); Lymphocytes % (auto) 5.6 %; Mean Corpuscular Hgb Conc 32.2 g/dL (32-36); Mean Corpuscular Volume 93.3 fL (80-100); Mean Platelet Volume 8.6 fL (7.4-10.4); Monocytes # (auto) 0.86 K/uL (0.11-0.59); Monocytes % (auto) 9.1 %; Neutrophils # (auto) 7.97 K/uL (1.4-6.5); Neutrophils % (auto) 84.5 %; Platelet Count 262 K/uL (130-400); RDW Coefficient of Variation 14.6 % (11.5-14.5); RDW Standard Deviation 49.8 fL (36.4-46.3); Red Blood Count 2.83 M/uL (4.2-5.4); White Blood Count 9.44 K/uL (4.8-10.8)
[2021-02-07 03:22] LABS: BUN Creatinine Ratio 19.8 (10-20); Calcium 7.7 mg/dl (8.5-10.1); Creatinine Clr Calc Pharmacy 54.8 ml/min; Est GFR (African American) 96.2; Potassium 3.8 mmol/L (3.5-5.1)
[2021-02-07 03:25] LABS: Partial Thromboplastin Ratio 2.3
[2021-02-07 03:27] LABS: Partial Thromboplastin Time 59.3 Seconds (21.0-31.0)
[2021-02-07 03:49] LABS: Phosphorus 2.8 mg/dl (2.5-4.9)
[2021-02-07] MEDS: HEPARIN SODIUM/DEXTROSE 25,000 UNITS/500 ML BAG IV SCH (04:23)
[2021-02-07] MEDS: MEROPENEM 500 MG in SYRINGE 0 ML IV SCH ×3 (05:13→17:26)
[2021-02-07] MEDS: LEVOTHYROXINE SODIUM 100 MCG TABLET PO SCH (05:13)
[2021-02-07] MEDS: methylPREDNISolone 10 MG in SYRINGE 0 ML IV SCH (07:58)
[2021-02-07] MEDS: ASPIRIN 81 MG ECTAB PO SCH (07:58)
[2021-02-07] MEDS: FOLIC ACID 1 MG in SYRINGE 9.8 ML IV SCH (07:59)
[2021-02-07] MEDS: FAMOTIDINE 20 MG in SYRINGE 3 ML IV SCH (08:03)
[2021-02-07] MEDS: CALCITONIN SALMON NA 200 IU/AC 3.7 ML BTL SCH (08:03)
[2021-02-07] MEDS: CITALOPRAM 40 MG TAB PO SCH (08:05)
--- NOTE | 2021-02-07 11:51 | Surgery Consultation ---
Date of Consultation February 07, 2021 Assessment & Plan (1) Abdominal abscess: This patient has intra-abdominal fluid collections. A drain is in place. There is purulent material in the drain so it is draining. Her abdominal exam is benign. She has no fever. Her colostomy is functioning. I do not feel that there is any need for surgical intervention at this time. The patient has expressed in the past desire for further surgery considering her metastatic lung carcinoma. Would continue with IV antibiotics. Would leave drain in place. History of Present Illness Reason for Consultation: Status post exploratory laparotomy with partial proctectomy and partial small bowel resection with repair of parastomal hernia Requesting Physician: Wily Leyva Attending Physician: Wily Leyva History of Present Illness I have been asked by Dr. Leyva to see this 80-year-old female who is known to me from previous visits. On 01/19 she underwent an exploratory laparotomy with partial proctectomy for a leak of her rectal stump as well as takedown of a small bowel fistula with partial small bowel resection and repair of a parastomal hernia. She had a drain placed into the pelvis during the procedure. On she underwent a CT scan that showed some collections in the pelvis and left side of the abdomen. There were felt to be draining via the GREGG. She also was noted to have compression fractures. She was discharged to home. She is having pain from her compression fractures that has been difficult to control at home. This required admission. She presently is complaining of no abdominal pain. She is able to eat. There is no redness or drainage from the incision. No ney were removed today. The colostomy is functioning well. She has been afebrile for at least the last 48 hours. There has not been any erythema of her incision. Her mentation is good. She underwent a CT scan of the abdomen here that demonstrated similar findings in similar collections. Allergies Allergy/AdvReac Type Severity Reaction Status Date / Time nickel Allergy Intermediate Rash Verified 02/04/21 16:11 venlafaxine AdvReac Intermediate Hypertensio Verified 02/04/21 16:11 n,Headache clarithromycin AdvReac Mild Nausea/Vomi Verified 02/04/21 16:11 ting codeine AdvReac Mild UPSET Verified 02/04/21 16:11 STOMACH hydrocodone AdvReac Mild Nausea/Vomi Verified 02/04/21 16:11 ting metronidazole [From Flagyl] AdvReac Mild Gastrointestinal Verified 02/04/21 16:11 Upset Home Medications Medication Instructions Recorded Confirmed Type folic acid 1 mg PO QAM 08/04/19 02/04/21 History citalopram 40 mg tablet 40 mg PO QAM #90 tab 01/09/20 02/04/21 Rx magnesium oxide 400 mg PO BID #20 tab 02/29/20 02/04/21 Rx prochlorperazine maleate 5 mg PO TID PRN 03/12/20 02/04/21 History [Compazine] aspirin 81 mg PO DAILY 08/09/20 02/04/21 History benzonatate 100 mg capsule 100 mg PO TID PRN #60 cap 09/01/20 02/04/21 Rx levothyroxine 100 mcg tablet 100 mcg PO QAM #90 tab 09/03/20 02/04/21 Rx pantoprazole 40 mg tablet,delayed 40 mg PO QAM #90 tab 11/05/20 02/04/21 Rx release lorazepam 0.5 mg tablet 0.5 mg PO Q12H PRN #60 tab 11/25/20 02/04/21 Rx prednisone 10 mg PO DAILY 12/24/20 02/04/21 History fluconazole 200 mg tablet 200 mg PO Q72H PRN #5 tab 12/29/20 02/04/21 Rx ondansetron HCl 8 mg tablet 8 mg PO Q12H #60 tab 12/29/20 02/04/21 Rx potassium chloride 10 mEq 20 meq PO BID #180 tab 12/29/20 02/04/21 Rx tablet,extended release diazepam 5 mg tablet See Rx Instructions PO .COMPLEX 01/31/21 02/04/21 Rx PRN #30 tab calcitonin (salmon) 200 1 spray INTRANASAL (ALT) DAILY 02/04/21 02/04/21 Rx unit/actuation nasal spray #3.7 ml hydromorphone 2 mg tablet 2 mg PO Q6H #28 tab 02/04/21 02/04/21 Rx oxycodone 5 mg PO DIRECTED PRN 02/04/21 02/04/21 History torsemide 10 mg tablet 10 mg PO .QOD PRN #20 tab 02/04/21 02/04/21 Rx vancomycin 0 mg IV DIRECTED 02/04/21 02/04/21 History Patient History Medical History Adenocarcinoma, lung Adrenal cortical adenoma Anasarca Anxiety Arthritis Biceps tendonitis Cataract COVID-19 virus antibody negative Depression Esophageal dyskinesia Essential hypertriglyceridemia Fatigue Gastritis Gastroesophageal reflux disease History of bronchitis History of diverticulitis Hyperlipidemia Hypomagnesemia Hypothyroidism Intermittent hydrarthrosis of elbow Irritable bowel syndrome Lung cancer NEW DX Metastatic bone cancer radiation treatments completed 08/25/19. Olecranon bursitis Osteoarthritis Osteopenia Pneumonia hx SBO (small bowel obstruction) Sialoadenitis Small bowel obstruction Surgical History (Updated 02/07/21 @ 12:00 by Dawson Belcher MD) History of cataract surgery RT/LEFT History of colonoscopy Dr. Veronica 12/2011 History of dilatation and curettage History of discectomy CERVICAL (GOOD ROM) History of repair of rotator cuff RT History of tooth extraction S/P section X 1 S/P hip replacement left. 07/02/2019. SAB with MAC. no issues. Status post Patricio procedure Surgery, elective Revision of Meeks for stricture Surgery, elective 01/19/21 Partial proctectomy, takedown of enterocutaneous fistula, partial small bowel resection, repair of parastomal hernia Family History Family/Other Family history of diabetes mellitus Brother Family hx of colon cancer Mother , age 66 Diabetes Cancer ovarian Coronary heart disease had acute OR which led to her Sister Cancer Family/Other Breast cancer Father , age 49 Suicide Alcoholism Social History Smoking Status: Current every day smoker Tobacco Type: Cigarettes Age Started Using Tobacco: 21; packs per day: 0.5; Cigarettes Per Day: 10; Second Hand Exposure: No; Do You Dip or Chew Tobacco: No; Tobacco Cessation Education Requested by Patient: No Hx Alcohol Use: Yes Alcohol type: wine Hx Substance Use: Yes Last Used Substance: Unknown Last Used Substance Other:: 12/23/20 Substance Use Type Other:: medical Preferred Language: Slovak Communication Ability: Effective Visual Impairment: No Limitations Hearing Ability: Normal Is Project Manager Required: No Beliefs That Will Affect Care: None marital status: / Current Living Situation: Family Current Living Situation Comment: lives with grandson current occupational status: retired current occupation: worked at [employer] other: 1 daughter Feels Safe at Home: Yes Safety Concerns: Feels Safe At This Time Childhood Exposure to Second-Hand Smoke: Yes (both parents) caffeine: Yes Dental Care, Regularly: No Seatbelt Use: always Assistive Devices: Glasses and Oxygen - Continuous Physical Exam Constitutional: + acute distress Respiratory: normal respiratory effort, lungs clear to auscultation Cardiovascular: Rate/Rhythm: regular rate and regular rhythm Gastrointestinal (Abdomen): Inspection/Auscultation: + abdominal surgical incision (Well-healed, intact, no erythema) and + hypoactive bowel sounds; abdomen not distended Percussion/Palpation: + abdomen tender (Minimal upper abdominal) and abdomen soft Colostomy in place, appears healthy, draining soft stool. Drain in place with purulent material present. GREGG has less than 20 cc of output per day Results & Data ([facility]) Vital Signs (Past 12 Hours) Vital Signs Temp Pulse Pulse Resp BP Pulse Ox 02/07/21 11:02 36.4 C L 74 16 172/77 H 98 02/07/21 07:15 36.4 C L 55 L 16 171/77 H 100 02/07/21 07:04 70 02/07/21 03:32 36.5 C 70 18 169/80 H 98 Laboratory Results 02/07/21 02/07/21 02/07/21 Range/Units 10:36 02:51 02:51 WBC 9.44 (4.8-10.8) K/uL RBC 2.83 L (4.2-5.4) M/uL Hgb 8.5 L (12.0-16.0) g/dL Hct 26.4 L (37-47) % MCV 93.3 (80-100) fL MCH 30.0 (25-34) pg MCHC 32.2 (32-36) g/dL RDW Std Deviation 49.8 H (36.4-46.3) fL RDW Coeff of Raymundo 14.6 H (11.5-14.5) % Plt Count 262 (130-400) K/uL MPV 8.6 (7.4-10.4) fL Immature Gran % (Auto) 0.6 % Neut % (Auto) 84.5 % Lymph % (Auto) 5.6 % [place] % (Auto) 9.1 % Eos % (Auto) 0.2 % Baso % (Auto) 0.0 % Neut # (Auto) 7.97 H (1.4-6.5) K/uL Lymph # (Auto) 0.53 L (1.2-3.4) K/uL [place] # (Auto) 0.86 H (0.11-0.59) K/uL Eos # (Auto) 0.02 (0-0.5) K/uL Baso # (Auto) 0.00 (0-0.2) K/uL Immature Gran # (Auto) 0.06 H (0.00-0.02) K/uL APTT (21.0-31.0) Seconds PTT Ratio Sodium (136-145) mmol/L Potassium (3.5-5.1) mmol/L Chloride (98-107) mmol/L Carbon Dioxide (21-32) mmol/L Anion Gap (3-11) BUN (7-18) mg/dl Creatinine (0.6-1.2) mg/dl Est Cr Clr Drug Dosing ml/min Est GFR ( Amer) Est GFR (Non-Af Amer) BUN/Creatinine Ratio (10-20) Glucose (70-99) mg/dl Calcium (8.5-10.1) mg/dl Phosphorus (2.5-4.9) mg/dl Magnesium (1.8-2.4) mg/dl Procalcitonin 0.09 (0-0.5) ng/ml Vancomycin Trough 16.7 (See Comment) mcg/ml 02/07/21 02/07/21 02/06/21 Range/Units 02:51 02:51 19:28 WBC (4.8-10.8) K/uL RBC (4.2-5.4) M/uL Hgb (12.0-16.0) g/dL Hct (37-47) % MCV (80-100) fL MCH (25-34) pg MCHC (32-36) g/dL RDW Std Deviation (36.4-46.3) fL RDW Coeff of Raymundo (11.5-14.5) % Plt Count (130-400) K/uL MPV (7.4-10.4) fL Immature Gran % (Auto) % Neut % (Auto) % Lymph % (Auto) % [place] % (Auto) % Eos % (Auto) % Baso % (Auto) % Neut # (Auto) (1.4-6.5) K/uL Lymph # (Auto) (1.2-3.4) K/uL [place] # (Auto) (0.11-0.59) K/uL Eos # (Auto) (0-0.5) K/uL Baso # (Auto) (0-0.2) K/uL Immature Gran # (Auto) (0.00-0.02) K/uL APTT 59.3 H* 38.5 H (21.0-31.0) Seconds PTT Ratio 2.3 1.5 Sodium 139 (136-145) mmol/L Potassium 3.8 (3.5-5.1) mmol/L Chloride 102 (98-107) mmol/L Carbon Dioxide 34 H (21-32) mmol/L Anion Gap 3.0 (3-11) BUN 14 (7-18) mg/dl Creatinine 0.70 (0.6-1.2) mg/dl Est Cr Clr Drug Dosing 54.8 ml/min Est GFR ( Amer) 96.2 Est GFR (Non-Af Amer) 83.0 BUN/Creatinine Ratio 19.8 (10-20) Glucose 115 H (70-99) mg/dl Calcium 7.7 L (8.5-10.1) mg/dl Phosphorus 2.8 (2.5-4.9) mg/dl Magnesium 2.0 (1.8-2.4) mg/dl Procalcitonin (0-0.5) ng/ml Vancomycin Trough (See Comment) mcg/ml 02/06/21 02/06/21 02/06/21 Range/Units 12:21 12:21 12:21 WBC 12.33 H (4.8-10.8) K/uL RBC 3.06 L (4.2-5.4) M/uL Hgb 9.3 L (12.0-16.0) g/dL Hct 29.3 L (37-47) % MCV 95.8 (80-100) fL MCH 30.4 (25-34) pg MCHC 31.7 L (32-36) g/dL RDW Std Deviation 51.1 H (36.4-46.3) fL RDW Coeff of Raymundo 14.8 H (11.5-14.5) % Plt Count 292 (130-400) K/uL MPV 8.8 (7.4-10.4) fL Immature Gran % (Auto) 0.3 % Neut % (Auto) 93.9 % Lymph % (Auto) 3.1 % [place] % (Auto) 2.4 % Eos % (Auto) 0.2 % Baso % (Auto) 0.1 % Neut # (Auto) 11.59 H (1.4-6.5) K/uL Lymph # (Auto) 0.38 L (1.2-3.4) K/uL [place] # (Auto) 0.29 (0.11-0.59) K/uL Eos # (Auto) 0.02 (0-0.5) K/uL Baso # (Auto) 0.01 (0-0.2) K/uL Immature Gran # (Auto) 0.04 H (0.00-0.02) K/uL APTT 43.3 H (21.0-31.0) Seconds PTT Ratio 1.6 Sodium 138 (136-145) mmol/L Potassium 3.9 D (3.5-5.1) mmol/L Chloride 102 (98-107) mmol/L Carbon Dioxide 33 H (21-32) mmol/L Anion Gap 3.0 (3-11) BUN 13 (7-18) mg/dl Creatinine 0.68 (0.6-1.2) mg/dl Est Cr Clr Drug Dosing 56.4 ml/min Est GFR ( Amer) 97.1 Est GFR (Non-Af Amer) 83.8 BUN/Creatinine Ratio 19.1 (10-20) Glucose 117 H (70-99) mg/dl Calcium 7.8 L (8.5-10.1) mg/dl Phosphorus (2.5-4.9) mg/dl Magnesium 2.3 (1.8-2.4) mg/dl Procalcitonin (0-0.5) ng/ml Vancomycin Trough (See Comment) mcg/ml Diagnostic Findings CT SCAN OF THE CHEST, ABDOMEN, AND PELVIS WITH IV CONTRAST; CT SCAN OF THE THORACIC SPINE WITHOUT IV CONTRAST; CT SCAN OF THE LUMBAR SPINE WITHOUT IV CONTRAST CLINICAL HISTORY: Lethargy. Lung cancer. Thoracic and lumbar back pain. COMPARISON STUDY: Chest CT dated 03/12/2020. Abdominal CT dated 01/15/2021. PET/CT dated 07/28/2020. TECHNIQUE: Following the IV administration of 89 of Optiray 300, CT scan of the chest, abdomen, and pelvis was performed from the thoracic inlet to the proximal femora. Images are reviewed in the axial, sagittal, and coronal planes. IV contrast was administered without complication. Additionally, unenhanced CT scan of the thoracic spine is performed from the lower cervical spine to the upper lumbar spine and unenhanced CT scan of lumbar spine is performed from the lower thoracic spine to the sacrum. The thoracic and lumbar spinal CT scans are reviewed in the axial, sagittal, and coronal planes. IV contrast was not administered specifically for the spinal CTs. A dose lowering technique was utilized adhering to the principles of ALARA. The examination is degraded by motion artifact, as well as by streak artifact from the arms which could not be elevated above the chest or abdomen. CT DOSE: 1200.32 mGy.cm FINDINGS: CHEST: Thyroid: Imaged portions of the thyroid gland are normal in size and attenuation. Thoracic aorta: There is atherosclerotic calcification of the thoracic aorta, which is normal in caliber and demonstrates standard 3-vessel arch anatomy. No dissection is seen. There is at least moderate stenosis of the proximal left subclavian artery. Pulmonary vasculature: The pulmonary trunk is normal in caliber. There are no filling defects identified in the central pulmonary vessels to indicate pulmonary embolus. Note that this examination was not protocoled for evaluation of the pulmonary arteries. Heart: A left subclavian central venous infusion port is in place. The heart is normal in size noting trace pericardial effusion. The coronary arteries are densely calcified. Lungs and pleural spaces: Emphysematous change is noted. The trachea and central airways are clear. There are trace pleural effusions with bibasilar scarring/atelectasis. There is no airspace consolidation typical for pneumonia or pneumothorax. Is only minimal residual right perihilar nodularity at the site of the previously treated mass lesion. This measures up to 1.4 cm as seen on image #179. No new pulmonary lesion is identified. Mediastinum: There is no mediastinal lymphadenopathy. [place]: Clear. Axillae: There is no axillary lymphadenopathy. Bony thorax: The skeletal structures are osteopenic. See below for dedicated assessment of the thoracic spine. No lytic or blastic lesions are identified. THORACIC SPINE: There is a superior endplate compression deformity of T10 with [id number] loss of height. This is new from recent prior examinations. There are minimal superior endplate compression deformities in the mid to upper thoracic region. The transverse and spinous processes are intact. The disc spaces are preserved. There is no evidence of large disc herniation or high- grade central canal stenosis by CT. The paraspinous soft tissues are normal in appearance. Soft tissues: There is body wall edema. ABDOMEN AND PELVIS: Liver: The contrast-enhanced liver is normal in size, contour, and attenuation. There is no intrahepatic biliary ductal dilatation. The hepatic veins and portal veins are patent. Gallbladder: Unremarkable. Spleen: Normal in size and attenuation. There are calcified splenic granulomas. Pancreas: Mildly atrophic and grossly unremarkable. Adrenal glands: A 2 cm left adrenal nodule is unchanged from prior studies. The right adrenal gland is normal in appearance. Kidneys: The contrast enhanced kidneys demonstrate mild cortical atrophy. There is mild left-sided hydroureteronephrosis. No hydronephrosis is seen on the right. The kidneys enhance symmetrically. Small renal cysts measure up to 2 cm. Additional subcentimeter cortical hypodensities also likely represent cysts but are too small for definitive characterization. Abdominal vasculature: The abdominal aorta is normal in course and caliber not ing advanced atherosclerotic calcification. Bowel: There is postoperative change of distal colonic resection with left lower quadrant colostomy. No bowel obstruction is seen. A rectal stump is noted in the pelvis. The appendix is not identified and reported surgically absent. Peritoneum: No intraperitoneal free air is identified. Midline skin clips are noted. There is a 4.7 x 6.2 x 1.8 cm fluid collection identified within the subcutaneous fat surrounding the ostomy, best seen on axial image #225. A surgical drain is present in the left pelvis from a ventral pelvic approach. There are multiple loculated fluid collections identified throughout the pelvis. The largest is located along the left pelvic sidewall seen on image #314. This measures 4.4 x 3.9 x 3.0 cm. A collection in the right presacral region measures 3.5 x 6.7 x 2.5 cm as seen on image #295. A serpiginous collection the right ventral pelvis on image #302 measures approximately 4 x 1 cm. Lymphadenopathy: None. Pelvic viscera: Evaluation of the pelvis is degraded by streak artifact from a left hip arthroplasty. The bladder wall is circumferentially thickened is pericystic inflammation. There are calcified uterine fibroids. Skeletal structures: The skeletal structures are osteopenic. See below for dedicated assessment of the lumbar spine. No lytic or blastic lesions are seen. A left hip arthroplasty is in place. The bony pelvis and proximal femora appear intact. LUMBAR SPINE: There are compression deformities of L1, L2, L3, and L4. There is mild/moderate loss of height at L1 with mild loss of height at L2 and L3. Minimal loss of height is seen at L4. The L1 compression deformity is new from 01/15/2021 and likely acute to subacute. Interval superior endplate compression deformity of L4 is also new from previous. The L2 and L3 compression deformities are unchanged. The transverse and spinous processes are intact. There is no evidence of spondylolysis. There is moderate to advanced disc space narrowing at L5 5 to S1. The remaining disc spaces appear maintained. There is no evidence of large disc herniation or high-grade stenosis by CT. There is fatty atrophy of the paraspinous musculature. IMPRESSION: 1. Emphysema. 2. There are trace pleural effusions with bibasilar scarring/atelectasis. No airspace consolidation is seen typical for pneumonia. 3. There is only minimal residual nodularity/scarring in the right perihilar region at the site of the previously characterized mass lesion. 4. There is postoperative change of distal colon resection with left lower quadrant colostomy. 5. There is no bowel obstruction. 6. There is a loculated fluid collection within the subcutaneous fat around the ostomy site. This could represent seroma versus abscess and clinical correlation will be required. 7. A surgical drain is present in the left pelvis. 8. There are numerous loculated fluid collections in the pelvis as detailed above typical for abscesses. 9. There are compression deformities of T10, L1, and L4 as detailed above. These are new from recent prior studies and likely acute to subacute. Correlate for point tenderness. 10. Additional thoracolumbar compression deformities are chronic. 11. An indeterminant left adrenal nodule is similar to prior studies. 12. The bladder wall appears thickened and there is pericystic inflammation. Correlate clinically and with urinalysis for evidence of cystitis. 13. There is body wall edema. 14. Mild left hydronephrosis is likely related to the inflammatory process in the left pelvis. 15. Additional findings as above.
[2021-02-07] MEDS ORDERED: VANCOMYCIN HCL 750 MG in SODIUM CHLORIDE 0.9% 250 ML IV SCH (13:00)
--- NOTE | 2021-02-07 13:01 | Palliative Care Consultation ---
Date of Consultation February 07, 2021 Assessment & Plan (1) Palliative care encounter: (2) Compression fracture: with severe pain. Would add lidocaine patch. Continue oxycodone as needed which she reports is effective for her, but would increase frequency to every four hours as needed. If oxycodone is ineffective, she has IV hydromorphone order, given lethargy and bioequivalent dose, would decrease to 0.5mg as needed. She is also on methylprednisolone and calcitonin which should help to relieve bony pain. I talked with Aydee about how she is coping with her multiple illnesses. She tells me that she tries not to think about it and just keeps pushing forward. I asked her what gives her the strength to do that and she was unsure. She tells me that her dog, Bogdan, brings her arnel and that being able to be at home, get around and be outside would be important indicators of quality in her life. She tells me that she doesn't think about healthcare decisions or the future. She does say that her daughter, Aydee Patrick, is her surrogate decision maker. She has not talked to Aydee about her wishes but feels that she would know what to do. I also spoke to Aydee on the phone. She understands that there is a balance between managing pain and avoiding sedation to the point that Aydee is able to move around and try to get stronger. She has considered the fact that it would be better at some point for the focus of care to be on comfort and pain management rather than disease management but has been wanting Aydee to tell her when that is. Both are agreeable to palliative care following to continue discussion about goals and comfort. (3) Abdominal abscess: (4) Lung cancer metastatic to bone: History of Present Illness Reason for Consultation: goals of care Requesting Physician: Dr. Hollis Attending Physician: Wily Leyva History of Present Illness 80 yo lady with adenocarcinoma of the lung originally diagnosed in June of 2019. She has bone metastases and presented in 2019 with a pathologic hip fracture. She is know to have vertebral fractures at T12, L2 and L3. She has been having severe (12/10) pain in her low back. She is receiving chemotherapy with permetrexed and pembrolizumab and is followed by [facility]. Her last treatment was two weeks ago. She also has a complicated history with chronic abdominal wound and abscess. She had a colostomy in October of 2019 with a revision in March of that year due to small bowel obstruction. She was just discharged from [facility] after surgery on 01/21/21 for lysis of adhesions, abscess drainage, small bowel resection and partial proctectomy. She was admitted to [facility] with lethargy thought to be related to opioid pain medications and is also noted to have a DVT. Per her daughter, her mobility has been extremely limited at home mostly due to pain with movement from vertebral fractures. She was taking oxycodone at home. She tells me that she has pain in her abdomen at this time, having had staple removal earlier this morning. She also has pain in her back that is pretty much constant. It is worse with movement and with medication and rest goes down to 2/10 at best. Allergies Allergy/AdvReac Type Severity Reaction Status Date / Time nickel Allergy Intermediate Rash Verified 02/04/21 16:11 venlafaxine AdvReac Intermediate Hypertensio Verified 02/04/21 16:11 n,Headache clarithromycin AdvReac Mild Nausea/Vomi Verified 02/04/21 16:11 ting codeine AdvReac Mild UPSET Verified 02/04/21 16:11 STOMACH hydrocodone AdvReac Mild Nausea/Vomi Verified 02/04/21 16:11 ting metronidazole [From Flagyl] AdvReac Mild Gastrointestinal Verified 02/04/21 16:11 Upset Home Medications Medication Instructions Recorded Confirmed Type folic acid 1 mg PO QAM 08/04/19 02/04/21 History citalopram 40 mg tablet 40 mg PO QAM #90 tab 01/09/20 02/04/21 Rx magnesium oxide 400 mg PO BID #20 tab 02/29/20 02/04/21 Rx prochlorperazine maleate 5 mg PO TID PRN 03/12/20 02/04/21 History [Compazine] aspirin 81 mg PO DAILY 08/09/20 02/04/21 History benzonatate 100 mg capsule 100 mg PO TID PRN #60 cap 09/01/20 02/04/21 Rx levothyroxine 100 mcg tablet 100 mcg PO QAM #90 tab 09/03/20 02/04/21 Rx pantoprazole 40 mg tablet,delayed 40 mg PO QAM #90 tab 11/05/20 02/04/21 Rx release lorazepam 0.5 mg tablet 0.5 mg PO Q12H PRN #60 tab 11/25/20 02/04/21 Rx prednisone 10 mg PO DAILY 12/24/20 02/04/21 History fluconazole 200 mg tablet 200 mg PO Q72H PRN #5 tab 12/29/20 02/04/21 Rx ondansetron HCl 8 mg tablet 8 mg PO Q12H #60 tab 12/29/20 02/04/21 Rx potassium chloride 10 mEq 20 meq PO BID #180 tab 12/29/20 02/04/21 Rx tablet,extended release diazepam 5 mg tablet See Rx Instructions PO .COMPLEX 01/31/21 02/04/21 Rx PRN #30 tab calcitonin (salmon) 200 1 spray INTRANASAL (ALT) DAILY 02/04/21 02/04/21 Rx unit/actuation nasal spray #3.7 ml hydromorphone 2 mg tablet 2 mg PO Q6H #28 tab 02/04/21 02/04/21 Rx oxycodone 5 mg PO DIRECTED PRN 02/04/21 02/04/21 History torsemide 10 mg tablet 10 mg PO .QOD PRN #20 tab 02/04/21 02/04/21 Rx vancomycin 0 mg IV DIRECTED 02/04/21 02/04/21 History Patient History Medical History Adenocarcinoma, lung Adrenal cortical adenoma Anasarca Anxiety Arthritis Biceps tendonitis Cataract COVID-19 virus antibody negative Depression Esophageal dyskinesia Essential hypertriglyceridemia Fatigue Gastritis Gastroesophageal reflux disease History of bronchitis History of diverticulitis Hyperlipidemia Hypomagnesemia Hypothyroidism Intermittent hydrarthrosis of elbow Irritable bowel syndrome Lung cancer NEW DX Metastatic bone cancer radiation treatments completed 08/25/19. Olecranon bursitis Osteoarthritis Osteopenia Pneumonia hx SBO (small bowel obstruction) Sialoadenitis Small bowel obstruction Surgical History History of cataract surgery RT/LEFT History of colonoscopy Dr. Veronica 12/2011 History of dilatation and curettage History of discectomy CERVICAL (GOOD ROM) History of repair of rotator cuff RT History of tooth extraction S/P section X 1 S/P hip replacement left. 07/02/2019. SAB with MAC. no issues. Status post Patricio procedure Surgery, elective Revision of Meeks for stricture Surgery, elective 01/19/21 Partial proctectomy, takedown of enterocutaneous fistula, partial small bowel resection, repair of parastomal hernia Family History Family/Other Family history of diabetes mellitus Brother Family hx of colon cancer Mother , age 66 Diabetes Cancer ovarian Coronary heart disease had acute AL which led to her Sister Cancer Family/Other Breast cancer Father , age 49 Suicide Alcoholism Social History Smoking Status: Current every day smoker Tobacco Type: Cigarettes Age Started Using Tobacco: 21; packs per day: 0.5; Cigarettes Per Day: 10; Second Hand Exposure: No; Hx Alcohol Use: Yes Alcohol type: wine Hx Substance Use: Yes Last Used Substance: Unknown Last Used Substance Other:: 12/23/20 Substance Use Type Other:: medical Preferred Language: Indonesian Communication Ability: Effective Visual Impairment: No Limitations Hearing Ability: Normal Licensing Registration Examiner Required: No Beliefs That Will Affect Care: None marital status: / Current Living Situation: Family Current Living Situation Comment: lives with grandson current occupational status: retired current occupation: worked at [employer]) other: 1 daughter Feels Safe at Home: Yes Childhood Exposure to Second-Hand Smoke: Yes (both parents) caffeine: Yes Dental Care, Regularly: No Seatbelt Use: always Assistive Devices: Glasses and Oxygen - Continuous Review of Systems Review of Systems: [place] Symptom Assessment Scale Pain 3/3 Dyspnea 0/3 Anxiety 1/3 Fatigue 2/3 Nausea 0/3 Anorexia 0/3 Drowsiness 1/3 Palliative Performance Score 30% Physical Exam Constitutional: + lethargic (but arousable) ENMT: Mouth: oral mucous membranes not dry Respiratory: normal respiratory effort; no labored breathing On O2 Gastrointestinal (Abdomen): midline incision with dressing intact, drain with serous fluid, colostomy with soft brown stool Musculoskeletal: Extremities: extremities normal to inspection Skin: no rashes, warm and dry Neurologic: not confused Results & Data ([facility]) Vital Signs (Past 12 Hours) Vital Signs Temp Pulse Pulse Resp BP Pulse Ox 02/07/21 11:02 97.5 F L 74 16 172/77 H 98 02/07/21 07:15 97.5 F L 55 L 16 171/77 H 100 02/07/21 07:04 70 02/07/21 03:32 97.7 F 70 18 169/80 H 98 PG Care Time/CCT Total # of Minutes Spent Total Time Spent with Patient: Total time spent is greater than 50% in coordination of care (as documented) at patient's floor/unit and/or counseling patient: total time spent 75 minutes with more than 50% of time spent on symptom management, surrogate decision maker, goals of care. Coding Level of Care Code 87251 Inpt Consult Level 4 Diagnoses Palliative care encounter Z51.5 Compression fracture Abdominal abscess Lung cancer metastatic to bone C34.90; C79.51
[2021-02-07] MEDS ORDERED: HYDROmorphone INJ 0.5 MG/0.5 ML SYR IV PRN (13:17)
[2021-02-07] MEDS: LIDOCAINE 5% 1 PATCH TD SCH (14:05)
--- NOTE | 2021-02-07 14:25 | Pharmacy Report ---
Pharmacy Abx Dose Short Note - Date of Service February 07, 2021 - Assessment & Plan Assessment 80 year old F receiving IV Vancomycin and Meropenem for treatment of abdominal abscess Day # 3 of inpatient antimicrobial therapy. * Patient was on Vancomycin 750mg IV q12 and Meropenem 1g IV q8 prior to admission; unclear first date of therapy and unclear duration. Please see Pharmacy note 02/05/21 for more details * Vancomycin level assessed today indicating that q24h dosing is appropriate. Will trial a daily regimen with close monitoring. Plan Vancomycin * "Trough" level of 16.7 mcg/mL is therapeutic * Scheduled vanc 750mg q24h * Goal trough level: ~15mcg/mL pending c/s * Will order a trough at steady state on this regimen Pharmacy will continue to follow and will adjust dose/frequency as necessary. Thank you.
[2021-02-07] MEDS: oxyCODONE HCL IR 5 MG TAB (IMMEDIATE RELEASE) PO PRN (20:20)
--- NOTE | 2021-02-07 22:11 | Hospitalist Progress Note ---
Date of Service February 07, 2021 Assessment & Plan (1) Abdominal abscess: S/p surgical drainage at [facility] -Requested records -Continue Meropenem and Vancomycin as recommended -Follow cultures -Wound/Ostomy consultation appreciated -Per daughter, patient is following up with Dr. Pena as an outpatient. -Had discussion with Dr. Pena regarding her multiple lesions. -Given patient is afebrile and asymptomatic, we may continue antibiotics and treat conservatively. In regards to macarena-ostomy lesion which may be an abscess, she recommended discussing with radiology if lesion could be suctioned. -Patient would need close followup with surgery as an outpatient. -Removed ney but will leave drain. (2) Altered mental status: This appears to have resolved. May be multi factorial: Medication effects from opiates -Frequent orientation -Follow cultures -Correction of metabolic derangements as below (3) Hypomagnesemia: Mg=1.2 -Resolved (4) Hypokalemia: K=3.8 (5) Elevated troponin: Likely demand ischemia. Patient denies chest pain -Telemetry monitoring -trop trending down. -echo shows no wall motion abnormalities -Continue ASA (6) Compression fracture: Patient with significant back pain secondary to compression fractures -Palliative care consultation appreciated -Consider Ortho consultation - daughter mentioned possible kyphoplasty -Dilaudid as needed for pain control -Pain continues to be an issue, patient is not agreeable to having an MRI as she is unable to lay flat for MRI to be completed. appreciate input from palliative care for pain control. (7) DVT (deep venous thrombosis): LLE popliteal DVT. Provoked - recent surgery - patient at high risk due to underlying malignancy -Heparin gtt - low dose, no bolus -Discussed with [facility] Surgery dictaphone typist prior to initiation -Monitor GREGG output for bleeding (8) Chronic use of steroids: Patient on Prednisone -Solumedrol 10mg daily IV -Low threshold for stress dosing should patient become hypotensive (9) Anemia: Hgb=7.7 which is lower than prior values. Possibly contributing to patient's fatigue -Transfuse 1u PRBCs -cbc has improved will monitor (10) Lung cancer metastatic to bone: Patient is to see oncology this coming week to discuss next steps in care. No immediate concerns -Monitor -Consider repeat PET-CT to assess extent of bony metastases (11) GERD (gastroesophageal reflux disease): Chronic -Continue Pepcid (12) COPD (chronic obstructive pulmonary disease): Chronic. Patient with wheezing -Albuterol as needed (13) Depression: Chronic -Continue Celexa 40mg po daily F/E/N - Heplock, Electrolyte repletion as above, NPO for now, ADAT as mental status improves, Folic Acid IV, try to reduce pill burden given patient's level of somnolence Ppx - Heparin gtt as above for DVT Code - DNR/DNI per discussion with daughter Dispo - Admit to medical/tele POC - Daughter Aydee = [phone] Admission and Anticipated Discharge Date Admission Date: February 04, 2021 Subjective Patient reports no new complaints at this time. Review of Systems Review of Systems: All systems reviewed & are unremarkable except as noted in HPI & below Physical Exam Physical Exam: General: ifemale patient resting comfortably, NAD, oriented to self and hospital HEENT: NC/AT, PERRL, anicteric sclera, conjunctiva without injection, external ear normal to inspection and nontender, nares patent, dry mucus membranes, dentition intact, no oropharyngeal lesions, neck supple, trachea midline, no LAD, no thyromegaly, no JVD Heart: +S1/S2, regular, no m/r/g Lungs: equal air entry bilaterally, scattered wheezes throughout Abd: +BS diminished, dressings and binder in place - ney assessed - small area of dehiscence with drainage at caudal end of surgical wound, GREGG drain in place with small amount of purulent drainage, ostomy in place Ext: warm, 2+ pulses in UE/LE bilaterally, no clubbing/cyanosis, +pitting LE edema Neuro: nonfocal, patient somnolent, speech intact, no facial droop, moving all extremities on command with equal strength 5/5 Results & Data Results & Data ([facility]) Vital Signs (Past 12 Hours) Vital Signs Temp Pulse Resp BP BP Pulse Ox 02/07/21 19:38 36.9 C 68 18 170/81 H 100 02/07/21 15:36 37.1 C 66 18 153/67 H 95 02/07/21 11:02 36.4 C L 74 16 172/77 H 98 PG Care Time/CCT Total # of Minutes Spent Total Time Spent with Patient: Total time spent is greater than 50% in coordination of care (as documented) at patient's floor/unit and/or counseling patient: Prolonged Care Time Prolonged Care Time: Yes Total Prolonged Care Time: 65 9:50 to 10:55 Coding Level of Care Code 49432 Subseq Hosp Care Lvl 3 (25 - SIGNIFICANT, SEPARATELY IDENTIFIABLE ) Diagnoses Abdominal abscess Altered mental status R40.0 Altered mental status type: somnolence Hypomagnesemia E83.42 Hypokalemia E87.6 Elevated troponin R77.8 Compression fracture DVT (deep venous thrombosis) I82.402 Affected thrombotic vein of extremity: unspecified vein of extremity Chronicity: acute DVT location: lower extremity Laterality: left Chronic use of steroids Anemia D64.9 Anemia type: unspecified type Lung cancer metastatic to bone C34.90; C79.51 GERD (gastroesophageal reflux disease) K21.9 Esophagitis presence: without esophagitis COPD (chronic obstructive pulmonary disease) J44.9 COPD type: unspecified COPD Depression F32.9 Active/Remission status: remission status unspecified Depression Type: major depressive disorder Major depression recurrence: unspecified whether recurrent Additional Codes Prolonged Care Time - Prolonged Care Time: Yes ([id number]) Time Spent (min) 65 Comment discussion with multiple subspecialists, family and patient. (1) DVT (deep venous thrombosis) Affected thrombotic vein of extremity: unspecified vein of extremity Chronicity: acute DVT location: lower extremity Laterality: left Qualified Code(s): I82.402 - Acute embolism and thrombosis of unspecified deep veins of left lower extremity (2) Anemia Anemia type: unspecified type Qualified Code(s): D64.9 - Anemia, unspecified (3) Depression Active/Remission status: remission status unspecified Depression Type: major depressive disorder Major depression recurrence: unspecified whether recurrent Qualified Code(s): F32.9 - Major depressive disorder, single episode, unspecified (4) Altered mental status Altered mental status type: somnolence Qualified Code(s): R40.0 - Somnolence (5) COPD (chronic obstructive pulmonary disease) COPD type: unspecified COPD Qualified Code(s): J44.9 - Chronic obstructive pulmonary disease, unspecified (6) GERD (gastroesophageal reflux disease) Esophagitis presence: without esophagitis Qualified Code(s): K21.9 - Gastro- esophageal reflux disease without esophagitis
[2021-02-08] MEDS: MEROPENEM 500 MG in SYRINGE 0 ML IV SCH ×2 (00:09→05:53)
[2021-02-08] MEDS: HEPARIN SODIUM/DEXTROSE 25,000 UNITS/500 ML BAG IV SCH (05:53)
[2021-02-08] MEDS: LEVOTHYROXINE SODIUM 100 MCG TABLET PO SCH (05:54)
[2021-02-08] MEDS: oxyCODONE HCL IR 5 MG TAB (IMMEDIATE RELEASE) PO PRN ×2 (06:20→16:31)
[2021-02-08 07:01] LABS: Creatinine Clr Calc Pharmacy 55.6 ml/min; Est GFR (African American) 96.6; Est GFR (Non-African American) 83.4
[2021-02-08 07:15] LABS: Partial Thromboplastin Time 51.3 Seconds (21.0-31.0)
[2021-02-08] MEDS: FOLIC ACID 1 MG in SYRINGE 9.8 ML IV SCH (08:43)
[2021-02-08] MEDS: FAMOTIDINE 20 MG in SYRINGE 3 ML IV SCH (08:43)
[2021-02-08] MEDS: methylPREDNISolone 10 MG in SYRINGE 0 ML IV SCH (08:44)
[2021-02-08] MEDS: CALCITONIN SALMON NA 200 IU/AC 3.7 ML BTL SCH (08:45)
[2021-02-08 09:33] LABS: Basophils # (auto) 0.02 K/uL (0-0.2); Basophils % (auto) 0.2 %; Eosinophils # (auto) 0.04 K/uL (0-0.5); Eosinophils % (auto) 0.4 %; Hematocrit (blood only) 29.9 % (37-47); Hemoglobin 9.4 g/dL (12.0-16.0); Immature Granulocytes # (auto) 0.06 K/uL (0.00-0.02); Immature Granulocytes % (auto) 0.6 %; Lymphocytes # (auto) 0.58 K/uL (1.2-3.4); Lymphocytes % (auto) 6.1 %; Mean Corpuscular Hemoglobin 30.2 pg (25-34); Mean Corpuscular Hgb Conc 31.4 g/dL (32-36); Mean Corpuscular Volume 96.1 fL (80-100); Mean Platelet Volume 9.1 fL (7.4-10.4); Monocytes % (auto) 13.7 %; Neutrophils # (auto) 7.52 K/uL (1.4-6.5); Platelet Count 369 K/uL (130-400); RDW Coefficient of Variation 14.7 % (11.5-14.5); RDW Standard Deviation 50.6 fL (36.4-46.3); Red Blood Count 3.11 M/uL (4.2-5.4); White Blood Count 9.52 K/uL (4.8-10.8)
[2021-02-08] MEDS: ASPIRIN 81 MG ECTAB PO SCH (10:24)
[2021-02-08] MEDS: FLUCONAZOLE 100 MG TAB PO SCH (10:25)
[2021-02-08] MEDS: CITALOPRAM 40 MG TAB PO SCH (10:25)
[2021-02-08] MEDS: LIDOCAINE 5% 1 PATCH TD SCH (10:25)
[2021-02-08] MEDS ORDERED: GLYCOPYRROLATE 0.2 MG/ML VIAL IV PRN (11:04)
[2021-02-08] MEDS ORDERED: LORazepam 0.5 MG/1 ML VIAL IV PRN (11:07)
--- NOTE | 2021-02-08 11:08 | Surgery Progress Note ---
Date of Service February 08, 2021 Assessment & Plan (1) Abdominal abscess: Drain remains in place without evidence of peritonitis Would not recommend surgical intervention at this time and in fact records indicate that the patient is not interested in having surgical intervention. Continue vancomycin. Leave drain in place Admission and Anticipated Discharge Date Admission Date: February 04, 2021 Subjective Sleeping upon my arrival but easily aroused No complaints of abdominal pain No nausea or vomiting Anuel-Hooper drain had 10 cc out yesterday, fluid still appears purulent Physical Exam Gastrointestinal (Abdomen): Inspection/Auscultation: + abdominal surgical inc ision (Well-healed without erythema), + abdominal surgical drain present and + hypoactive bowel sounds Percussion/Palpation: + abdomen tender (Diffuse mild tenderness) and abdomen soft Results & Data ([facility]) Vital Signs (Past 12 Hours) Vital Signs Temp Pulse Pulse Resp BP Pulse Ox 02/08/21 08:00 36.7 C 74 20 168/79 H 100 02/08/21 07:08 71 02/08/21 04:18 36.6 C 72 18 172/79 H 100 02/07/21 23:13 36.5 C 64 18 171/79 H 99 Laboratory Results 02/08/21 02/08/21 02/08/21 Range/Units 05:26 05:26 05:26 WBC 9.52 (4.8-10.8) K/uL RBC 3.11 L (4.2-5.4) M/uL Hgb 9.4 L (12.0-16.0) g/dL Hct 29.9 L (37-47) % MCV 96.1 (80-100) fL MCH 30.2 (25-34) pg MCHC 31.4 L (32-36) g/dL RDW Std Deviation 50.6 H (36.4-46.3) fL RDW Coeff of Raymundo 14.7 H (11.5-14.5) % Plt Count 369 (130-400) K/uL MPV 9.1 (7.4-10.4) fL Immature Gran % (Auto) 0.6 % Neut % (Auto) 79.0 % Lymph % (Auto) 6.1 % [place] % (Auto) 13.7 % Eos % (Auto) 0.4 % Baso % (Auto) 0.2 % Neut # (Auto) 7.52 H (1.4-6.5) K/uL Lymph # (Auto) 0.58 L (1.2-3.4) K/uL [place]anan # (Auto) 1.30 H (0.11-0.59) K/uL Eos # (Auto) 0.04 (0-0.5) K/uL Baso # (Auto) 0.02 (0-0.2) K/uL Immature Gran # (Auto) 0.06 H (0.00-0.02) K/uL APTT 51.3 H* (21.0-31.0) Seconds PTT Ratio 2.0 Sodium 140 (136-145) mmol/L Potassium 3.0 L D (3.5-5.1) mmol/L Chloride 99 (98-107) mmol/L Carbon Dioxide 37 H (21-32) mmol/L Creatinine (0.6-1.2) mg/dl Est Cr Clr Drug Dosing ml/min Est GFR ( Amer) Est GFR (Non-Af Amer) Vancomycin Trough (See Comment) mcg/ml Crossmatch 02/08/21 02/07/21 02/04/21 Range/Units 05:26 10:36 23:44 WBC (4.8-10.8) K/uL RBC (4.2-5.4) M/uL Hgb (12.0-16.0) g/dL Hct (37-47) % MCV (80-100) fL MCH (25-34) pg MCHC (32-36) g/dL RDW Std Deviation (36.4-46.3) fL RDW Coeff of Raymundo (11.5-14.5) % Plt Count (130-400) K/uL MPV (7.4-10.4) fL Immature Gran % (Auto) % Neut % (Auto) % Lymph % (Auto) % [place] % (Auto) % Eos % (Auto) % Baso % (Auto) % Neut # (Auto) (1.4-6.5) K/uL Lymph # (Auto) (1.2-3.4) K/uL [place] # (Auto) (0.11-0.59) K/uL Eos # (Auto) (0-0.5) K/uL Baso # (Auto) (0-0.2) K/uL Immature Gran # (Auto) (0.00-0.02) K/uL APTT (21.0-31.0) Seconds PTT Ratio Sodium (136-145) mmol/L Potassium (3.5-5.1) mmol/L Chloride (98-107) mmol/L Carbon Dioxide (21-32) mmol/L Creatinine 0.69 (0.6-1.2) mg/dl Est Cr Clr Drug Dosing 55.6 ml/min Est GFR ( Amer) 96.6 Est GFR (Non-Af Amer) 83.4 Vancomycin Trough 16.7 (See Comment) mcg/ml Crossmatch See Detail
--- NOTE | 2021-02-08 11:21 | Palliative Care Progress Note ---
Date of Service February 08, 2021 Assessment & Plan (1) Palliative care encounter: I talked with Aydee about my discussion with Aydee yesterday and her concern about making sure that she's doing what Aydee wants. We talked about how she is feeling today and her being tired. She tells me that she's tired of everything that she's been through. She has been saying that she would not want any further surgeries. We talked about shift of focus to comfort and allowing her to peacefully. She indicates that is what she would want. I called Aydee and discussed with her. She has been thinking that this was the best approach but wanted to make sure that it was what Aydee wanted. After our conversation this morning, she supports shift of focus to comfort measures. We discussed stopping antibiotics, testing and other medications that are not contributing to her comfort. She is agreeable to this. She will be coming in today to see Aydee. Dr. Leyva and Surgery notified. (2) Compression fracture: Continue lidocaine patch, she may refuse. Continue current opioids. She appears comfortable at rest. (3) Lung cancer metastatic to bone: (4) Abdominal abscess: (5) DVT (deep venous thrombosis): Admission and Anticipated Discharge Date Admission Date: February 04, 2021 Subjective More lethargic today. Had oxycodone at 0620 this morning. Refused lidocaine patch and breakfast. Says she doesn't need pain medications at this time. Tells me that she's tired. Review of Systems Review of Systems: [place] Symptom Assessment Scale Pain 1/3 Dyspnea 0/3 Nausea 0/3 Fatigue 3/3 Anxiety 0/3 Drowsiness 2/3 Palliative Performance Score 20% Physical Exam Constitutional: + lethargic; no acute distress ENMT: Mouth: + dry oral mucous membranes Respiratory: normal respiratory effort; no labored breathing Gastrointestinal (Abdomen): Midline dressing intact, colostomy, drain intact Musculoskeletal: Extremities: extremities normal to inspection Results & Data ([facility]) Vital Signs (Past 12 Hours) Vital Signs Temp Pulse Pulse Resp BP Pulse Ox 02/08/21 08:00 98.1 F 74 20 168/79 H 100 02/08/21 07:08 71 02/08/21 04:18 97.9 F 72 18 172/79 H 100 02/07/21 23:13 97.7 F 64 18 171/79 H 99 PG Care Time/CCT Total # of Minutes Spent Total Time Spent with Patient: Total time spent is greater than 50% in coordination of care (as documented) at patient's floor/unit and/or counseling patient: total time spent 45 minutes with more than 50% of time spent on goals of care, symptom management, family communication and support Coding Level of Care Code 62984 Subseq Hosp Care Lvl 3 Diagnoses Palliative care encounter Z51.5 Compression fracture Lung cancer metastatic to bone C34.90; C79.51 Abdominal abscess DVT (deep venous thrombosis) I82.402 Affected thrombotic vein of extremity: unspecified vein of extremity Chronicity: acute DVT location: lower extremity Laterality: left (1) DVT (deep venous thrombosis) Affected thrombotic vein of extremity: unspecified vein of extremity Chronicity: acute DVT location: lower extremity Laterality: left Qualified Code(s): I82.402 - Acute embolism and thrombosis of unspecified deep veins of left lower extremity
--- NOTE | 2021-02-08 22:58 | Hospitalist Progress Note ---
Date of Service February 08, 2021 Assessment & Plan (1) Comfort measures only status: Patient elected to be [employer] Daughter is agreeable will stop antibiotics and DVT treatment Plan below was prior to switching to [employer] (2) Abdominal abscess: S/p surgical drainage at [facility] -Requested records -Continue Meropenem and Vancomycin as recommended -Follow cultures -Wound/Ostomy consultation appreciated -Per daughter, patient is following up with Dr. Pena as an outpatient. -Had discussion with Dr. Pena regarding her multiple lesions. -Given patient is afebrile and asymptomatic, we may continue antibiotics and treat conservatively. In regards to macarena-ostomy lesion which may be an abscess, she recommended discussing with radiology if lesion could be suctioned. -Patient would need close followup with surgery as an outpatient. -Removed ney but will leave drain. (3) Altered mental status: This appears to have resolved. May be multi factorial: Medication effects from opiates -Frequent orientation -Follow cultures -Correction of metabolic derangements as below (4) Hypomagnesemia: Mg=1.2 -Resolved (5) Hypokalemia: K=3.8 (6) Elevated troponin: Likely demand ischemia. Patient denies chest pain -Telemetry monitoring -trop trending down. -echo shows no wall motion abnormalities -Continue ASA (7) Compression fracture: Patient with significant back pain secondary to compression fractures -Palliative care consultation appreciated -Consider Ortho consultation - daughter mentioned possible kyphoplasty -Dilaudid as needed for pain control -Pain continues to be an issue, patient is not agreeable to having an MRI as she is unable to lay flat for MRI to be completed. appreciate input from palliative care for pain control. (8) DVT (deep venous thrombosis): LLE popliteal DVT. Provoked - recent surgery - patient at high risk due to underlying malignancy -Heparin gtt - low dose, no bolus -Discussed with [facility] Surgery technology applications teacher prior to initiation -Monitor GREGG output for bleeding (9) Chronic use of steroids: Patient on Prednisone -Solumedrol 10mg daily IV -Low threshold for stress dosing should patient become hypotensive (10) Anemia: Hgb=7.7 which is lower than prior values. Possibly contributing to patient's fatigue -Transfuse 1u PRBCs -cbc has improved will monitor (11) Lung cancer metastatic to bone: Patient is to see oncology this coming week to discuss next steps in care. No immediate concerns -Monitor -Consider repeat PET-CT to assess extent of bony metastases (12) GERD (gastroesophageal reflux disease): Chronic -Continue Pepcid (13) COPD (chronic obstructive pulmonary disease): Chronic. Patient with wheezing -Albuterol as needed (14) Depression: Chronic -Continue Celexa 40mg po daily POC - Daughter Aydee = [phone] Admission and Anticipated Discharge Date Admission Date: February 04, 2021 Subjective Patient is more lethargic, no complaints. Review of Systems Review of Systems: All systems reviewed & are unremarkable except as noted in HPI & below Physical Exam Physical Exam: General: female patient resting comfortably, NAD, oriented to self and hospital HEENT: NC/AT, PERRL, anicteric sclera, conjunctiva without injection, external ear normal to inspection and nontender, nares patent, dry mucus membranes, dentition intact, no oropharyngeal lesions, neck supple, trachea midline, no LAD, no thyromegaly, no JVD Heart: +S1/S2, regular, no m/r/g Lungs: equal air entry bilaterally, scattered wheezes throughout Abd: +BS diminished, dressings and binder in place - ney assessed - small area of dehiscence with drainage at caudal end of surgical wound, GREGG drain in place with small amount of purulent drainage, ostomy in place Ext: warm, 2+ pulses in UE/LE bilaterally, no clubbing/cyanosis, +pitting LE edema Neuro: nonfocal, patient somnolent, Results & Data Results & Data ([facility]) Vital Signs (Past 12 Hours) Vital Signs Temp Pulse Resp BP Pulse Ox 02/08/21 16:23 66 02/08/21 11:20 36.6 C 76 20 147/74 H 99 PG Care Time/CCT Total # of Minutes Spent Total Time Spent with Patient: Total time spent is greater than 50% in coordination of care (as documented) at patient's floor/unit and/or counseling patient: Coding Level of Care Code 81388 Subseq Hosp Care Lvl 2 Diagnoses Comfort measures only status Z51.5 Abdominal abscess Altered mental status R40.0 Altered mental status type: somnolence Hypomagnesemia E83.42 Hypokalemia E87.6 Elevated troponin R77.8 Compression fracture DVT (deep venous thrombosis) I82.402 Affected thrombotic vein of extremity: unspecified vein of extremity Chronicity: acute DVT location: lower extremity Laterality: left Chronic use of steroids Anemia D64.9 Anemia type: unspecified type Lung cancer metastatic to bone C34.90; C79.51 GERD (gastroesophageal reflux disease) K21.9 Esophagitis presence: without esophagitis COPD (chronic obstructive pulmonary disease) J44.9 COPD type: unspecified COPD Depression F32.9 Active/Remission status: remission status unspecified Depression Type: major depressive disorder Major depression recurrence: unspecified whether recurrent Time Spent (min) 25 (1) DVT (deep venous thrombosis) Affected thrombotic vein of extremity: unspecified vein of extremity Chronicity: acute DVT location: lower extremity Laterality: left Qualified Code(s): I82.402 - Acute embolism and thrombosis of unspecified deep veins of left lower extremity (2) Anemia Anemia type: unspecified type Qualified Code(s): D64.9 - Anemia, unspecified (3) Depression Active/Remission status: remission status unspecified Depression Type: major depressive disorder Major depression recurrence: unspecified whether recurrent Qualified Code(s): F32.9 - Major depressive disorder, single episode, unspecified (4) Altered mental status Altered mental status type: somnolence Qualified Code(s): R40.0 - Somnolence (5) COPD (chronic obstructive pulmonary disease) COPD type: unspecified COPD Qualified Code(s): J44.9 - Chronic obstructive pulmonary disease, unspecified (6) GERD (gastroesophageal reflux disease) Esophagitis presence: without esophagitis Qualified Code(s): K21.9 - Gastro- esophageal reflux disease without esophagitis
[2021-02-09] MEDS: methylPREDNISolone 10 MG in SYRINGE 0 ML IV SCH (10:55)
[2021-02-09] MEDS: LIDOCAINE 5% 1 PATCH TD SCH (10:55)
--- NOTE | 2021-02-09 12:54 | Discharge Summary ---
Date of Service February 09, 2021 Admission HPI Per Admitting Provider Aydee Burgos is a 80yo female with multiple medical problems - 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 She has longstanding issues with pelvic abscesses requiring drainage, enterocutaneous fistula, bowel obstructions and colitis as well as chronic abdominal wound infection with Pseudomonas. She underwent sigmoid colostomy and appendectomy in October 2019 with revision in March 2020. Most recently she has been having issues with back pain secondary to vertebral compression fractures. Patient was recently hospitalized at [facility] for recurrent intra-abdominal abscesses. She had a partial proctectomy, adhesiolysis, drainage of intra-abdominal abscesses, small bowel resection and repair of parastomal hernia performed on 01/21/[address] Pena. The surgery went well with no complications. She was discharged to home with services and receives IV antibiotics- Vancomycin and Meropenem. Patient began having worsening back pain after the surgery. She has seen her PCP for this issue as well on 02/04/21 - had an x-ray that showed mild degenerative changes and osteopenia. She had several CTs which suggested compression deformity at L2, L3 as well as T12. Her pain from this issue has become debilitating. She has not been able to ambulate or get out of bed. She has been taking Valium for this issue but has been sleepy - unable to take her medications or PO. Her Valium has since been changed to Oxycodone then to PO Dilaudid. Daughter is concerned that she has not been taking her medications, eating or drinking for several days. Today her daughter states that patisarayn was more tired than she has ever been - she was unable to take her medications which prompted them to come to the ER. Principal Diagnosis Metastatic lung cancer, intra-abdominal abscess, vertebral compression fractures, DVT Discharge Exam Constitutional WD/WN, vitals as above Eyes + anicteric sclerae Neck trachea midline, no thyromegaly Respiratory normal respiratory effort Auscultation: + crackles (bibasilar) Cardiovascular Rate/Rhythm: regular rate and regular rhythm Extremities: + edema (2+ pitting edema right leg) Chest (Breasts) Chest: normal inspection of chest Gastrointestinal (Abdomen) normal bowel sounds, soft, nontender, no hepatosplenomegaly Musculoskeletal Extremities: no cyanosis and no clubbing Skin no rashes, warm and dry Neurologic moves all extremities and awake; no focal motor deficits Psychiatric Orientation: alert, oriented to person and cooperative Affect: + flat affect Genitourinary Ledesma with clear yellow urine Discharge Data Allergies Allergy/AdvReac Type Severity Reaction Status Date / Time nickel Allergy Intermediate Rash Verified 02/04/21 16:11 venlafaxine AdvReac Intermediate Hypertensio Verified 02/04/21 16:11 n,Headache clarithromycin AdvReac Mild Nausea/Vomi Verified 02/04/21 16:11 ting codeine AdvReac Mild UPSET Verified 02/04/21 16:11 STOMACH hydrocodone AdvReac Mild Nausea/Vomi Verified 02/04/21 16:11 ting metronidazole [From Flagyl] AdvReac Mild Gastrointestinal Verified 02/04/21 16:11 Upset Consultations 02/04/21 20:15 ED Decision to Admit Stat 02/04/21 23:33 Consult Palliative Care Routine 02/05/21 15:20 Consult Orthopedic Surgery Routine 02/07/21 08:22 Consult Infectious Diseases Routine 02/07/21 08:32 Consult General Surgery Routine Ordered Studies 02/04/21 16:17 CT abd pelvis IV con only Stat CT lumbar spine w con Stat CT thoracic spine w con Stat 02/04/21 16:27 CT chest diagnostic w con Stat 02/04/21 16:30 US venous doppler LE LT Stat 02/04/21 16:36 CT head/brain wo con Stat Chest X-Ray 02/04/21 16:12 SINGLE VIEW CHEST CLINICAL HISTORY: Dyspnea. FINDINGS: An AP, portable, upright chest radiograph is compared to chest x-ray dated 02/04/2021 and correlated with chest CT dated 03/12/2020. The examination is degraded by portable technique and patient rotation. A left subclavian central venous infusion port is unchanged in position. The heart is top normal in size noting atherosclerotic calcification of the thoracic aorta. The pulmonary vasculature is noncongested. Advanced emphysema and chronic interstitial thickening are similar to previous. There is a small left pleural effusion with left basilar consolidation. Scarring/atelectasis is noted at the right lung base. No pneumothorax is seen. The skeletal structures are osteopenic. The bony thorax is grossly intact. Surgical clips are seen in the right lower neck. IMPRESSION: 1. Cardiomegaly and advanced emphysema. 2. There is airspace consolidation at the left lung base with a small left pleural effusion. Correlate clinically for evidence of pneumonia/aspiration pneumonitis. Radiographic follow-up to resolution is recommended. ACT 112: Negative or not required by law. Electronically signed by: Jeffry Sotomayor M.D. 02/04/2021 4:44 PM Abdomen/Pelvis CT 02/04/21 16:17 CT SCAN OF THE CHEST, ABDOMEN, AND PELVIS WITH IV CONTRAST; CT SCAN OF THE THORACIC SPINE WITHOUT IV CONTRAST; CT SCAN OF THE LUMBAR SPINE WITHOUT IV CONTRAST CLINICAL HISTORY: Lethargy. Lung cancer. Thoracic and lumbar back pain. COMPARISON STUDY: Chest CT dated 03/12/2020. Abdominal CT dated 01/15/2021. PET/CT dated 07/28/2020. TECHNIQUE: Following the IV administration of 89 of Optiray 300, CT scan of the chest, abdomen, and pelvis was performed from the thoracic inlet to the proximal femora. Images are reviewed in the axial, sagittal, and coronal planes. IV contrast was administered without complication. Additionally, unenhanced CT scan of the thoracic spine is performed from the lower cervical spine to the upper lumbar spine and unenhanced CT scan of lumbar spine is performed from the lower thoracic spine to the sacrum. The thoracic and lumbar spinal CT scans are reviewed in the axial, sagittal, and coronal planes. IV contrast was not administered specifically for the spinal CTs. A dose lowering technique was utilized adhering to the principles of ALARA. The examination is degraded by motion artifact, as well as by streak artifact from the arms which could not be elevated above the chest or abdomen. CT DOSE: 1200.32 mGy.cm FINDINGS: CHEST: Thyroid: Imaged portions of the thyroid gland are normal in size and attenuation. Thoracic aorta: There is atherosclerotic calcification of the thoracic aorta, which is normal in caliber and demonstrates standard 3-vessel arch anatomy. No dissection is seen. There is at least moderate stenosis of the proximal left subclavian artery. Pulmonary vasculature: The pulmonary trunk is normal in caliber. There are no filling defects identified in the central pulmonary vessels to indicate pulmonary embolus. Note that this examination was not protocoled for evaluation of the pulmonary arteries. Heart: A left subclavian central venous infusion port is in place. The heart is normal in size noting trace pericardial effusion. The coronary arteries are densely calcified. Lungs and pleural spaces: Emphysematous change is noted. The trachea and central airways are clear. There are trace pleural effusions with bibasilar sc arring/atelectasis. There is no airspace consolidation typical for pneumonia or pneumothorax. Is only minimal residual right perihilar nodularity at the site of the previously treated mass lesion. This measures up to 1.4 cm as seen on image #179. No new pulmonary lesion is identified. Mediastinum: There is no mediastinal lymphadenopathy. Noy: Clear. Axillae: There is no axillary lymphadenopathy. Bony thorax: The skeletal structures are osteopenic. See below for dedicated assessment of the thoracic spine. No lytic or blastic lesions are identified. THORACIC SPINE: There is a superior endplate compression deformity of T10 with [id number] loss of height. This is new from recent prior examinations. There are minimal superior endplate compression deformities in the mid to upper thoracic region. The transverse and spinous processes are intact. The disc spaces are preserved. There is no evidence of large disc herniation or high- grade central canal stenosis by CT. The paraspinous soft tissues are normal in appearance. Soft tissues: There is body wall edema. ABDOMEN AND PELVIS: Liver: The contrast-enhanced liver is normal in size, contour, and attenuation. There is no intrahepatic biliary ductal dilatation. The hepatic veins and portal veins are patent. Gallbladder: Unremarkable. Spleen: Normal in size and attenuation. There are calcified splenic granulomas. Pancreas: Mildly atrophic and grossly unremarkable. Adrenal glands: A 2 cm left adrenal nodule is unchanged from prior studies. The right adrenal gland is normal in appearance. Kidneys: The contrast enhanced kidneys demonstrate mild cortical atrophy. There is mild left-sided hydroureteronephrosis. No hydronephrosis is seen on the right. The kidneys enhance symmetrically. Small renal cysts measure up to 2 cm. Additional subcentimeter cortical hypodensities also likely represent cysts but are too small for definitive characterization. Abdominal vasculature: The abdominal aorta is normal in course and caliber noting advanced atherosclerotic calcification. Bowel: There is postoperative change of distal colonic resection with left lower quadrant colostomy. No bowel obstruction is seen. A rectal stump is noted in the pelvis. The appendix is not identified and reported surgically absent. Peritoneum: No intraperitoneal free air is identified. Midline skin clips are noted. There is a 4.7 x 6.2 x 1.8 cm fluid collection identified within the subcutaneous fat surrounding the ostomy, best seen on axial image #225. A surgical drain is present in the left pelvis from a ventral pelvic approach. There are multiple loculated fluid collections identified throughout the pelvis. The largest is located along the left pelvic sidewall seen on image #314. This measures 4.4 x 3.9 x 3.0 cm. A collection in the right presacral region measures 3.5 x 6.7 x 2.5 cm as seen on image #295. A serpiginous collection the right ventral pelvis on image #302 measures approximately 4 x 1 cm. Lymphadenopathy: None. Pelvic viscera: Evaluation of the pelvis is degraded by streak artifact from a left hip arthroplasty. The bladder wall is circumferentially thickened is pericystic inflammation. There are calcified uterine fibroids. Skeletal structures: The skeletal structures are osteopenic. See below for dedicated assessment of the lumbar spine. No lytic or blastic lesions are seen. A left hip arthroplasty is in place. The bony pelvis and proximal femora appear intact. LUMBAR SPINE: There are compression deformities of L1, L2, L3, and L4. There is mild/moderate loss of height at L1 with mild loss of height at L2 and L3. Minimal loss of height is seen at L4. The L1 compression deformity is new from 01/15/2021 and likely acute to subacute. Interval superior endplate compression deformity of L4 is also new from previous. The L2 and L3 compression deformities are unchanged. The transverse and spinous processes are intact. There is no evidence of spondylolysis. There is moderate to advanced disc space narrowing at L5 5 to S1. The remaining disc spaces appear maintained. There is no evidence of large disc herniation or high-grade stenosis by CT. There is fatty atrophy of the paraspinous musculature. IMPRESSION: 1. Emphysema. 2. There are trace pleural effusions with bibasilar scarring/atelectasis. No airspace consolidation is seen typical for pneumonia. 3. There is only minimal residual nodularity/scarring in the right perihilar region at the site of the previously characterized mass lesion. 4. There is postoperative change of distal colon resection with left lower quadrant colostomy. 5. There is no bowel obstruction. 6. There is a loculated fluid collection within the subcutaneous fat around the ostomy site. This could represent seroma versus abscess and clinical correlation will be required. 7. A surgical drain is present in the left pelvis. 8. There are numerous loculated fluid collections in the pelvis as detailed above typical for abscesses. 9. There are compression deformities of T10, L1, and L4 as detailed above. These are new from recent prior studies and likely acute to subacute. Correlate for point tenderness. 10. Additional thoracolumbar compression deformities are chronic. 11. An indeterminant left adrenal nodule is similar to prior studies. 12. The bladder wall appears thickened and there is pericystic inflammation. Correlate clinically and with urinalysis for evidence of cystitis. 13. There is body wall edema. 14. Mild left hydronephrosis is likely related to the inflammatory process in the left pelvis. 15. Additional findings as above. ACT 112: Negative or not required by law. Electronically signed by: Jeffry Sotomayor M.D. 02/04/2021 7:[address] 02/04/21 16:17 CT SCAN OF THE CHEST, ABDOMEN, AND PELVIS WITH IV CONTRAST; CT SCAN OF THE THORACIC SPINE WITHOUT IV CONTRAST; CT SCAN OF THE LUMBAR SPINE WITHOUT IV CONTRAST CLINICAL HISTORY: Lethargy. Lung cancer. Thoracic and lumbar back pain. COMPARISON STUDY: Chest CT dated 03/12/2020. Abdominal CT dated 01/15/2021. PET/CT dated 07/28/2020. TECHNIQUE: Following the IV administration of 89 of Optiray 300, CT scan of the chest, abdomen, and pelvis was performed from the thoracic inlet to the proximal femora. Images are reviewed in the axial, sagittal, and coronal planes. IV contrast was administered without complication. Additionally, unenhanced CT scan of the thoracic spine is performed from the lower cervical spine to the upper lumbar spine and unenhanced CT scan of lumbar spine is performed from the lower thoracic spine to the sacrum. The thoracic and lumbar spinal CT scans are reviewed in the axial, sagittal, and coronal planes. IV contrast was not administered specifically for the spinal CTs. A dose lowering technique was utilized adhering to the principles of ALARA. The examination is degraded by motion artifact, as well as by streak artifact from the arms which could not be elevated above the chest or abdomen. CT DOSE: 1200.32 mGy.cm FINDINGS: CHEST: Thyroid: Imaged portions of the thyroid gland are normal in size and attenuation. Thoracic aorta: There is atherosclerotic calcification of the thoracic aorta, which is normal in caliber and demonstrates standard 3-vessel arch anatomy. No dissection is seen. There is at least moderate stenosis of the proximal left subclavian artery. Pulmonary vasculature: The pulmonary trunk is normal in caliber. There are no filling defects identified in the central pulmonary vessels to indicate pulmonary embolus. Note that this examination was not protocoled for evaluation of the pulmonary arteries. Heart: A left subclavian central venous infusion port is in place. The heart is normal in size noting trace pericardial effusion. The coronary arteries are densely calcified. Lungs and pleural spaces: Emphysematous change is noted. The trachea and central airways are clear. There are trace pleural effusions with bibasilar scarring/atelectasis. There is no airspace consolidation typical for pneumonia or pneumothorax. Is only minimal residual right perihilar nodularity at the site of the previously treated mass lesion. This measures up to 1.4 cm as seen on image #179. No new pulmonary lesion is identified. Mediastinum: There is no mediastinal lymphadenopathy. Noy: Clear. Axillae: There is no axillary lymphadenopathy. Bony thorax: The skeletal structures are osteopenic. See below for dedicated assessment of the thoracic spine. No lytic or blastic lesions are identified. THORACIC SPINE: There is a superior endplate compression deformity of T10 with [id number] loss of height. This is new from recent prior examinations. There are minimal superior endplate compression deformities in the mid to upper thoracic region. The transverse and spinous processes are intact. The disc spaces are preserved. There is no evidence of large disc herniation or high- grade central canal stenosis by CT. The paraspinous soft tissues are normal in appearance. Soft tissues: There is body wall edema. ABDOMEN AND PELVIS: Liver: The contrast-enhanced liver is normal in size, contour, and attenuation. There is no intrahepatic biliary ductal dilatation. The hepatic veins and portal veins are patent. Gallbladder: Unremarkable. Spleen: Normal in size and attenuation. There are calcified splenic granulomas. Pancreas: Mildly atrophic and grossly unremarkable. Adrenal glands: A 2 cm left adrenal nodule is unchanged from prior studies. The right adrenal gland is normal in appearance. Kidneys: The contrast enhanced kidneys demonstrate mild cortical atrophy. There is mild left-sided hydroureteronephrosis. No hydronephrosis is seen on the right. The kidneys enhance symmetrically. Small renal cysts measure up to 2 cm. Additional subcentimeter cortical hypodensities also likely represent cysts but are too small for definitive characterization. Abdominal vasculature: The abdominal aorta is normal in course and caliber noting advanced atherosclerotic calcification. Bowel: There is postoperative change of distal colonic resection with left lower quadrant colostomy. No bowel obstruction is seen. A rectal stump is noted in the pelvis. The appendix is not identified and reported surgically absent. Peritoneum: No intraperitoneal free air is identified. Midline skin clips are noted. There is a 4.7 x 6.2 x 1.8 cm fluid collection identified within the subcutaneous fat surrounding the ostomy, best seen on axial image #225. A surgical drain is present in the left pelvis from a ventral pelvic approach. There are multiple loculated fluid collections identified throughout the pelvis. The largest is located along the left pelvic sidewall seen on image #314. This measures 4.4 x 3.9 x 3.0 cm. A collection in the right presacral region measures 3.5 x 6.7 x 2.5 cm as seen on image #295. A serpiginous collection the right ventral pelvis on image #302 measures approximately 4 x 1 cm. Lymphadenopathy: None. Pelvic viscera: Evaluation of the pelvis is degraded by streak artifact from a left hip arthroplasty. The bladder wall is circumferentially thickened is pericystic inflammation. There are calcified uterine fibroids. Skeletal structures: The skeletal structures are osteopenic. See below for dedicated assessment of the lumbar spine. No lytic or blastic lesions are seen. A left hip arthroplasty is in place. The bony pelvis and proximal femora appear intact. LUMBAR SPINE: There are compression deformities of L1, L2, L3, and L4. There is mild/moderate loss of height at L1 with mild loss of height at L2 and L3. Minimal loss of height is seen at L4. The L1 compression deformity is new from 01/15/2021 and likely acute to subacute. Interval superior endplate compression deformity of L4 is also new from previous. The L2 and L3 compression deformities are unchanged. The transverse and spinous processes are intact. There is no evidence of spondylolysis. There is moderate to advanced disc space narrowing at L5 5 to S1. The remaining disc spaces appear maintained. There is no evidence of large disc herniation or high-grade stenosis by CT. There is fatty atrophy of the paraspinous musculature. IMPRESSION: 1. Emphysema. 2. There are trace pleural effusions with bibasilar scarring/atelectasis. No airspace consolidation is seen typical for pneumonia. 3. There is only minimal residual nodularity/scarring in the right perihilar region at the site of the previously characterized mass lesion. 4. There is postoperative change of distal colon resection with left lower quadrant colostomy. 5. There is no bowel obstruction. 6. There is a loculated fluid collection within the subcutaneous fat around the ostomy site. This could represent seroma versus abscess and clinical correlation will be required. 7. A surgical drain is present in the left pelvis. 8. There are numerous loculated fluid collections in the pelvis as detailed above typical for abscesses. 9. There are compression deformities of T10, L1, and L4 as detailed above. These are new from recent prior studies and likely acute to subacute. Correlate for point tenderness. 10. Additional thoracolumbar compression deformities are chronic. 11. An indeterminant left adrenal nodule is similar to prior studies. 12. The bladder wall appears thickened and there is pericystic inflammation. Correlate clinically and with urinalysis for evidence of cystitis. 13. There is body wall edema. 14. Mild left hydronephrosis is likely related to the inflammatory process in the left pelvis. 15. Additional findings as above. ACT 112: Negative or not required by law. Electronically signed by: Jeffry Sotomayor M.D. 02/04/2021 7:[address] 02/04/21 16:17 CT SCAN OF THE CHEST, ABDOMEN, AND PELVIS WITH IV CONTRAST; CT SCAN OF THE THORACIC SPINE WITHOUT IV CONTRAST; CT SCAN OF THE LUMBAR SPINE WITHOUT IV CONTRAST CLINICAL HISTORY: Lethargy. Lung cancer. Thoracic and lumbar back pain. COMPARISON STUDY: Chest CT dated 03/12/2020. Abdominal CT dated 01/15/2021. PET/CT dated 07/28/2020. TECHNIQUE: Following the IV administration of 89 of Optiray 300, CT scan of the chest, abdomen, and pelvis was performed from the thoracic inlet to the proximal femora. Images are reviewed in the axial, sagittal, and coronal planes. IV contrast was administered without complication. Additionally, unenhanced CT scan of the thoracic spine is performed from the lower cervical spine to the upper lumbar spine and unenhanced CT scan of lumbar spine is performed from the lower thoracic spine to the sacrum. The thoracic and lumbar spinal CT scans are reviewed in the axial, sagittal, and coronal planes. IV contrast was not administered specifically for the spinal CTs. A dose lowering technique was utilized adhering to the principles of ALARA. The examination is degraded by motion artifact, as well as by streak artifact from the arms which could not be elevated above the chest or abdomen. CT DOSE: 1200.32 mGy.cm FINDINGS: CHEST: Thyroid: Imaged portions of the thyroid gland are normal in size and attenuation. Thoracic aorta: There is atherosclerotic calcification of the thoracic aorta, which is normal in caliber and demonstrates standard 3-vessel arch anatomy. No dissection is seen. There is at least moderate stenosis of the proximal left subclavian artery. Pulmonary vasculature: The pulmonary trunk is normal in caliber. There are no filling defects identified in the central pulmonary vessels to indicate pul monary embolus. Note that this examination was not protocoled for evaluation of the pulmonary arteries. Heart: A left subclavian central venous infusion port is in place. The heart is normal in size noting trace pericardial effusion. The coronary arteries are densely calcified. Lungs and pleural spaces: Emphysematous change is noted. The trachea and central airways are clear. There are trace pleural effusions with bibasilar scarring/atelectasis. There is no airspace consolidation typical for pneumonia or pneumothorax. Is only minimal residual right perihilar nodularity at the site of the previously treated mass lesion. This measures up to 1.4 cm as seen on image #179. No new pulmonary lesion is identified. Mediastinum: There is no mediastinal lymphadenopathy. Noy: Clear. Axillae: There is no axillary lymphadenopathy. Bony thorax: The skeletal structures are osteopenic. See below for dedicated assessment of the thoracic spine. No lytic or blastic lesions are identified. THORACIC SPINE: There is a superior endplate compression deformity of T10 with [id number] loss of height. This is new from recent prior examinations. There are minimal superior endplate compression deformities in the mid to upper thoracic region. The transverse and spinous processes are intact. The disc spaces are preserved. There is no evidence of large disc herniation or high- grade central canal stenosis by CT. The paraspinous soft tissues are normal in appearance. Soft tissues: There is body wall edema. ABDOMEN AND PELVIS: Liver: The contrast-enhanced liver is normal in size, contour, and attenuation. There is no intrahepatic biliary ductal dilatation. The hepatic veins and portal veins are patent. Gallbladder: Unremarkable. Spleen: Normal in size and attenuation. There are calcified splenic granulomas. Pancreas: Mildly atrophic and grossly unremarkable. Adrenal glands: A 2 cm left adrenal nodule is unchanged from prior studies. The right adrenal gland is normal in appearance. Kidneys: The contrast enhanced kidneys demonstrate mild cortical atrophy. There is mild left-sided hydroureteronephrosis. No hydronephrosis is seen on the right. The kidneys enhance symmetrically. Small renal cysts measure up to 2 cm. Additional subcentimeter cortical hypodensities also likely represent cysts but are too small for definitive characterization. Abdominal vasculature: The abdominal aorta is normal in course and caliber noting advanced atherosclerotic calcification. Bowel: There is postoperative change of distal colonic resection with left lower quadrant colostomy. No bowel obstruction is seen. A rectal stump is noted in the pelvis. The appendix is not identified and reported surgically absent. Peritoneum: No intraperitoneal free air is identified. Midline skin clips are noted. There is a 4.7 x 6.2 x 1.8 cm fluid collection identified within the subcutaneous fat surrounding the ostomy, best seen on axial image #225. A surgical drain is present in the left pelvis from a ventral pelvic approach. There are multiple loculated fluid collections identified throughout the pelvis. The largest is located along the left pelvic sidewall seen on image #314. This measures 4.4 x 3.9 x 3.0 cm. A collection in the right presacral region measures 3.5 x 6.7 x 2.5 cm as seen on image #295. A serpiginous collection the right ventral pelvis on image #302 measures approximately 4 x 1 cm. Lymphadenopathy: None. Pelvic viscera: Evaluation of the pelvis is degraded by streak artifact from a left hip arthroplasty. The bladder wall is circumferentially thickened is pericystic inflammation. There are calcified uterine fibroids. Skeletal structures: The skeletal structures are osteopenic. See below for dedicated assessment of the lumbar spine. No lytic or blastic lesions are seen. A left hip arthroplasty is in place. The bony pelvis and proximal femora appear intact. LUMBAR SPINE: There are compression deformities of L1, L2, L3, and L4. There is mild/moderate loss of height at L1 with mild loss of height at L2 and L3. Minimal loss of height is seen at L4. The L1 compression deformity is new from 01/15/2021 and likely acute to subacute. Interval superior endplate compression deformity of L4 is also new from previous. The L2 and L3 compression deformities are unchanged. The transverse and spinous processes are intact. There is no evidence of spondylolysis. There is moderate to advanced disc space narrowing at L5 5 to S1. The remaining disc spaces appear maintained. There is no evidence of large disc herniation or high-grade stenosis by CT. There is fatty atrophy of the paraspinous musculature. IMPRESSION: 1. Emphysema. 2. There are trace pleural effusions with bibasilar scarring/atelectasis. No airspace consolidation is seen typical for pneumonia. 3. There is only minimal residual nodularity/scarring in the right perihilar region at the site of the previously characterized mass lesion. 4. There is postoperative change of distal colon resection with left lower quadrant colostomy. 5. There is no bowel obstruction. 6. There is a loculated fluid collection within the subcutaneous fat around the ostomy site. This could represent seroma versus abscess and clinical correlation will be required. 7. A surgical drain is present in the left pelvis. 8. There are numerous loculated fluid collections in the pelvis as detailed above typical for abscesses. 9. There are compression deformities of T10, L1, and L4 as detailed above. These are new from recent prior studies and likely acute to subacute. Correlate for po int tenderness. 10. Additional thoracolumbar compression deformities are chronic. 11. An indeterminant left adrenal nodule is similar to prior studies. 12. The bladder wall appears thickened and there is pericystic inflammation. Correlate clinically and with urinalysis for evidence of cystitis. 13. There is body wall edema. 14. Mild left hydronephrosis is likely related to the inflammatory process in the left pelvis. 15. Additional findings as above. ACT 112: Negative or not required by law. Electronically signed by: Jeffry Sotomayor M.D. 02/04/2021 7:[address] 02/04/21 16:27 CT SCAN OF THE CHEST, ABDOMEN, AND PELVIS WITH IV CONTRAST; CT SCAN OF THE THORACIC SPINE WITHOUT IV CONTRAST; CT SCAN OF THE LUMBAR SPINE WITHOUT IV CONTRAST CLINICAL HISTORY: Lethargy. Lung cancer. Thoracic and lumbar back pain. COMPARISON STUDY: Chest CT dated 03/12/2020. Abdominal CT dated 01/15/2021. PET/CT dated 07/28/2020. TECHNIQUE: Following the IV administration of 89 of Optiray 300, CT scan of the chest, abdomen, and pelvis was performed from the thoracic inlet to the proximal femora. Images are reviewed in the axial, sagittal, and coronal planes. IV contrast was administered without complication. Additionally, unenhanced CT scan of the thoracic spine is performed from the lower cervical spine to the upper lumbar spine and unenhanced CT scan of lumbar spine is performed from the lower thoracic spine to the sacrum. The thoracic and lumbar spinal CT scans are reviewed in the axial, sagittal, and coronal planes. IV contrast was not ad ministered specifically for the spinal CTs. A dose lowering technique was utilized adhering to the principles of ALARA. The examination is degraded by motion artifact, as well as by streak artifact from the arms which could not be elevated above the chest or abdomen. CT DOSE: 1200.32 mGy.cm FINDINGS: CHEST: Thyroid: Imaged portions of the thyroid gland are normal in size and attenuation. Thoracic aorta: There is atherosclerotic calcification of the thoracic aorta, which is normal in caliber and demonstrates standard 3-vessel arch anatomy. No dissection is seen. There is at least moderate stenosis of the proximal left subclavian artery. Pulmonary vasculature: The pulmonary trunk is normal in caliber. There are no filling defects identified in the central pulmonary vessels to indicate pulmonary embolus. Note that this examination was not protocoled for evaluation of the pulmonary arteries. Heart: A left subclavian central venous infusion port is in place. The heart is normal in size noting trace pericardial effusion. The coronary arteries are densely calcified. Lungs and pleural spaces: Emphysematous change is noted. The trachea and central airways are clear. There are trace pleural effusions with bibasilar scarring/atelectasis. There is no airspace consolidation typical for pneumonia or pneumothorax. Is only minimal residual right perihilar nodularity at the site of the previously treated mass lesion. This measures up to 1.4 cm as seen on image #179. No new pulmonary lesion is identified. Mediastinum: There is no mediastinal lymphadenopathy. Noy: Clear. Axillae: There is no axillary lymphadenopathy. Bony thorax: The skeletal structures are osteopenic. See below for dedicated assessment of the thoracic spine. No lytic or blastic lesions are identified. THORACIC SPINE: There is a superior endplate compression deformity of T10 with [id number] loss of height. This is new from recent prior examinations. There are minimal superior endplate compression deformities in the mid to upper thoracic region. The transverse and spinous processes are intact. The disc spaces are preserved. There is no evidence of large disc herniation or high-grade central canal stenosis by CT. The paraspinous soft tissues are normal in appearance. Soft tissues: There is body wall edema. ABDOMEN AND PELVIS: Liver: The contrast-enhanced liver is normal in size, contour, and attenuation. There is no intrahepatic biliary ductal dilatation. The hepatic veins and portal veins are patent. Gallbladder: Unremarkable. Spleen: Normal in size and attenuation. There are calcified splenic granulomas. Pancreas: Mildly atrophic and grossly unremarkable. Adrenal glands: A 2 cm left adrenal nodule is unchanged from prior studies. The right adrenal gland is normal in appearance. Kidneys: The contrast enhanced kidneys demonstrate mild cortical atrophy. There is mild left-sided hydroureteronephrosis. No hydronephrosis is seen on the right. The kidneys enhance symmetrically. Small renal cysts measure up to 2 cm. Additional subcentimeter cortical hypodensities also likely represent cysts but are too small for definitive characterization. Abdominal vasculature: The abdominal aorta is normal in course and caliber noting advanced atherosclerotic calcification. Bowel: There is postoperative change of distal colonic resection with left lower quadrant colostomy. No bowel obstruction is seen. A rectal stump is noted in the pelvis. The appendix is not identified and reported surgically absent. Peritoneum: No intraperitoneal free air is identified. Midline skin clips are noted. There is a 4.7 x 6.2 x 1.8 cm fluid collection identified within the subcutaneous fat surrounding the ostomy, best seen on axial image #225. A surgical drain is present in the left pelvis from a ventral pelvic approach. There are multiple loculated fluid collections identified throughout the pelvis. The largest is located along the left pelvic sidewall seen on image #314. This measures 4.4 x 3.9 x 3.0 cm. A collection in the right presacral region measures 3.5 x 6.7 x 2.5 cm as seen on image #295. A serpiginous collection the right ventral pelvis on image #302 measures approximately 4 x 1 cm. Lymphadenopathy: None. Pelvic viscera: Evaluation of the pelvis is degraded by streak artifact from a left hip arthroplasty. The bladder wall is circumferentially thickened is pericystic inflammation. There are calcified uterine fibroids. Skeletal structures: The skeletal structures are osteopenic. See below for dedicated assessment of the lumbar spine. No lytic or blastic lesions are seen. A left hip arthroplasty is in place. The bony pelvis and proximal femora appear intact. LUMBAR SPINE: There are compression deformities of L1, L2, L3, and L4. There is mild/moderate loss of height at L1 with mild loss of height at L2 and L3. Minimal loss of height is seen at L4. The L1 compression deformity is new from 01/15/2021 and likely acute to subacute. Interval superior endplate compression deformity of L4 is also new from previous. The L2 and L3 compression deformities are unchanged. The transverse and spinous processes are intact. There is no evidence of spondylolysis. There is moderate to advanced disc space narrowing at L5 5 to S1. The remaining disc spaces appear maintained. There is no evidence of large disc herniation or high-grade stenosis by CT. There is fatty atrophy of the paraspinous musculature. IMPRESSION: 1. Emphysema. 2. There are trace pleural effusions with bibasilar scarring/atelectasis. No airspace consolidation is seen typical for pneumonia. 3. There is only minimal residual nodularity/scarring in the right perihilar region at the site of the previously characterized mass lesion. 4. There is postoperative change of distal colon resection with left lower quadrant colostomy. 5. There is no bowel obstruction. 6. There is a loculated fluid collection within the subcutaneous fat around the ostomy site. This could represent seroma versus abscess and clinical correlation will be required. 7. A surgical drain is present in the left pelvis. 8. There are numerous loculated fluid collections in the pelvis as detailed above typical for abscesses. 9. There are compression deformities of T10, L1, and L4 as detailed above. These are new from recent prior studies and likely acute to subacute. Correlate for point tenderness. 10. Additional thoracolumbar compression deformities are chronic. 11. An indeterminant left adrenal nodule is similar to prior studies. 12. The bladder wall appears thickened and there is pericystic inflammation. Correlate clinically and with urinalysis for evidence of cystitis. 13. There is body wall edema. 14. Mild left hydronephrosis is likely related to the inflammatory process in the left pelvis. 15. Additional findings as above. ACT 112: Negative or not required by law. Electronically signed by: Jeffry Sotomayor M.D. 02/04/2021 7:18 PM Venous Doppler Study 02/04/21 16:30 ULTRASOUND LEFT LOWER EXTREMITY VENOUS CLINICAL HISTORY: Left leg swelling. COMPARISON STUDY: Bilateral lower extremity venous ultrasound dated 03/02/2020. TECHNIQUE: Real-time, grayscale, and color Doppler sonography of the deep veins of the left lower extremity was performed from the inguinal crease to the calf. Compression and augmentation were utilized. FINDINGS: There is nonocclusive thrombus identified within 1 of paired left popliteal veins. The common femoral and superficial femoral veins are patent and normally compressible. The greater saphenous vein and the profunda femoris vein at the junction with the common femoral vein are clear. The visualized calf veins are patent. Soft tissue edema is noted in the calf. IMPRESSION: There is nonocclusive deep venous thrombosis identified within 1 of paired left popliteal veins ACT 112: Negative or not required by law. Electronically signed by: Jeffry Sotomayor M.D. 02/04/2021 6:[address] 02/04/21 16:36 CT SCAN OF THE BRAIN WITHOUT IV CONTRAST CLINICAL HISTORY: Lethargy. COMPARISON STUDY: CT of the brain dated 03/12/2020. TECHNIQUE: Unenhanced axial CT scan of the brain is performed from the vertex to the skull base. A dose lowering technique was utilized adhering to the principles of ALARA. FINDINGS: Brain parenchyma: There are age-related involutional changes noting mild subcortical and periventricular microangiopathic change. There is no hemorrhage, mass effect, or evidence of acute territorial ischemia by CT criteria. Orozco- white matter differentiation is preserved. No extra-axial fluid collection is seen. Ventricles, sulci, cisterns: Prominent secondary to involutional change. Intracranial vasculature: There is atherosclerotic calcification of the cavernous carotid and vertebral arteries. Calvarium: Unremarkable. Sinuses and mastoids: The visualized paranasal sinuses are clear. The mastoid air cells are well pneumatized. Orbits: The bony orbits are grossly intact. There are bilateral ocular lens implants. IMPRESSION: There is no hemorrhage, mass effect, or evidence of acute territorial ischemia by CT criteria. ACT 112: Negative or not required by law. Electronically signed by: Jeffry Sotomayor M.D. 02/04/2021 6:26 PM Hospital Course (1) Comfort measures only status: Patient elected to be [employer] Daughter is agreeable have since stopped antibiotics and DVT treatment home with hospice today (2) Abdominal abscess: S/p surgical drainage at [facility] received Meropenem and Vancomycin as recommended but now stopped for [employer] as above -Removed ney but will leave drain in place for home with hospice (3) Altered mental status: This appears to have resolved. May be multi factorial: Medication effects from opiates lyte derangements (4) Hypomagnesemia: Mg=1.2 -Resolved (5) Hypokalemia: (6) Elevated troponin: Likely demand ischemia. Patient denies chest pain -trop trending down. -echo shows no wall motion abnormalities (7) Compression fracture: Patient with significant back pain secondary to compression fractures -Palliative care consultation appreciated -continue oxycodone prn, lidocaine patch consider switch to po Roxanol once home with hospice (8) DVT (deep venous thrombosis): LLE popliteal DVT. Provoked - recent surgery - patient at high risk due to underlying malignancy -Heparin gtt - low dose, no bolus wa sprovided but then stopped upon transition to [employer] due to risk of bleeding with recent abdominal surgery (9) Chronic use of steroids: Patient on Prednisone-can continue on hospice fo (10) Anemia: Hgb=7.7 which is lower than prior values. Possibly contributing to patient's fatigue -Transfused 1u PRBCs -cbc has improved-no need for further checks (11) Lung cancer metastatic to bone: Patient is to see oncology this coming week to discuss next steps in care. But now transition to home hospice (12) GERD (gastroesophageal reflux disease): Chronic -Continue PPI (13) COPD (chronic obstructive pulmonary disease): Chronic. -Albuterol as needed (14) Depression: Chronic -Continue Celexa 40mg po daily POC - Daughter Aydee = [phone] Dispo-to home with hospice today Total Time Total Time Spent Total Time Spent (In Minutes): 35 min Total Time Includes: Examination of the Patient, Discharge Planning and Medication Reconciliation Discharge Plan Discharge Items Patient Disposition: Hospice - Home Reason For Visit: LETHARGY Discharge Diagnosis: Metastatic lung cancer, intra-abdominal abscesses, vertebral compression fractures with chronic pain Condition on Discharge: Fair Activity: As commented below Lifting: None Bathing: No limitations Exercise/Sports: As tolerated Non-emergency contact: Primary Care Provider Call non-emergency contact if: you have any medication questions, your symptoms worsen, your pain is not controlled and your pain is worsening Follow-up/Referrals: Zion Bartholomew MD [Primary Care Provider] - (No need for follow up appointment as going home with home hospice care.) Diet: Regular Diet Texture: Easy to Chew Addtl Attending Provider Instructions: You are going home with hospice due to multiple chronic medical issues causing you suffering. Your hospice team will assist you with any issues you have from here on out. You will no longer receive antibiotics for your infection but the drain will stay in place in your abdomen. You will not receive blood thinners for your blood clot in the leg due to increased risk of bleeding in your abdomen. You can continue taking oxycodone as needed for back pain and a lidocaine patch was also added. A lot of your other medications were discontinued for comfort as well. Pending Studies at Discharge: No Stand-Alone Forms: [facility] Medications and DC Order Prescriptions: New lidocaine 5 % Adhesive Patch,Medicated 1 patch transdermal QAM Qty: 15 RF: 0 Continued citalopram [Celexa] 40 mg tablet 40 mg PO QAM Qty: 90 RF: 3 levothyroxine [Synthroid] 100 mcg tablet 100 mcg PO QAM Qty: 90 RF: 3 pantoprazole [Protonix] 40 mg tablet,delayed release (DR/EC) 40 mg PO QAM Qty: 90 RF: 3 lorazepam 0.5 mg tablet 0.5 mg PO Q12H PRN (Reason: anxiety) Qty: 60 RF: 0 Hold Instructions: valium at night diazepam [Valium] 5 mg tablet See Rx Instructions PO .COMPLEX PRN (Reason: anxiety) Qty: 30 RF: 0 calcitonin (salmon) 200 unit/actuation spray,non-aerosol 1 spray intranasal (ALT) DAILY Qty: 3.7 RF: 2 aspirin 81 mg Tablet,Delayed Release (Dr/Ec) 81 mg PO DAILY RF: 0 prochlorperazine maleate [Compazine] 5 mg tablet 5 mg PO TID PRN (Reason: Nausea And Vomiting) RF: 0 prednisone 20 mg tablet 10 mg PO DAILY RF: 0 oxycodone 5 mg tablet 5 mg PO DIRECTED PRN (Reason: Pain) RF: 0 Discontinued fluconazole [Diflucan] 200 mg tablet 200 mg PO Q72H PRN (Reason: thrush) Qty: 5 RF: 0 ondansetron HCl 8 mg tablet 8 mg PO Q12H Qty: 60 RF: 1 potassium chloride 10 mEq tablet extended release 20 meq PO BID Qty: 180 RF: 2 hydromorphone [Dilaudid] 2 mg tablet 2 mg PO Q6H Qty: 28 RF: 0 benzonatate [Tessalon Perles] 100 mg capsule 100 mg PO TID PRN (Reason: cough) Qty: 60 RF: 0 torsemide 10 mg tablet 10 mg PO .QOD PRN (Reason: swelling) Qty: 20 RF: 0 folic acid 1 mg tablet 1 mg PO QAM RF: 0 magnesium oxide 400 mg (241.3 mg magnesium) tablet 400 mg PO BID Qty: 20 RF: 0 vancomycin 250 mg Recon Soln 0 mg IV DIRECTED RF: 0 Discharge Orders: Discharge Order (Routine); Ordered 02/09/21 Ordered By: Gabrielle Moon Admission Data Admit Date/Time: 02/04/21 22:10 Attending Provider: Gabrielle Moon Admit Provider: Emily Hollis Primary Care Provider: Zion Bartholomew Other Providers: [place] ; Emily Hollis ; Hiral Guzmán ; Krystian Ozuna ; Suhas Real ; Mandeep Peralta ; Peter Hollis I. ; Isauro Cox II ; Sherrell Her ; Dawson Martell ; Dawson Belcher Coding Level of Care Code D/C Day Management >30 mins Diagnoses Comfort measures only status Z51.5 Abdominal abscess Altered mental status R40.0 Altered mental status type: somnolence Hypomagnesemia E83.42 Hypokalemia E87.6 Elevated troponin R77.8 Compression fracture DVT (deep venous thrombosis) I82.402 Affected thrombotic vein of extremity: unspecified vein of extremity Chronicity: acute DVT location: lower extremity Laterality: left Chronic use of steroids Anemia D64.9 Anemia type: unspecified type Lung cancer metastatic to bone C34.90; C79.51 GERD (gastroesophageal reflux disease) K21.9 Esophagitis presence: without esophagitis COPD (chronic obstructive pulmonary disease) J44.9 COPD type: unspecified COPD Depression F32.9 Depression Type: major depressive disorder Major depression recurrence: unspecified whether recurrent Active/Remission status: remission status unspecified
[2021-02-09] MEDS: oxyCODONE HCL IR 5 MG TAB (IMMEDIATE RELEASE) PO PRN (13:53)
--- NOTE | 2021-02-09 14:02 | Palliative Care Progress Note ---
Date of Service February 09, 2021 Assessment & Plan (1) Palliative care encounter: Plan for discharge this afternoon home with hospice care. RN will give oxycodone prior to discharge for comfort on the ride home. Currently appears comfortable with lidocaine patch and prn oxycodone. (2) Compression fracture: (3) Lung cancer metastatic to bone: (4) Intra-abdominal abscess: Admission and Anticipated Discharge Date Admission Date: February 04, 2021 Subjective Resting comfortably. No prn oxycodone today. Per RN she tolerates routine care with some mild groaning but settles quickly. Review of Systems Review of Systems: Unobtainable due to reduced consciousness [place] Symptom Assessment Scale Pain 0/3 Dyspnea 0/3 Drowsiness 2/3 Palliative Performance Score 20% Physical Exam Constitutional: no acute distress Respiratory: normal respiratory effort; no labored breathing Gastrointestinal (Abdomen): colostomy, drain, midline dressing intact Neurologic: + not awake Genitourinary: monatño catheter Results & Data ([facility]) Vital Signs (Past 12 Hours) Vital Signs Temp Pulse Pulse Resp BP BP Pulse Ox 02/09/21 11:29 97.2 F L 60 14 143/62 H 98 02/09/21 08:09 97.9 F 61 14 166/73 H 96 PG Care Time/CCT Total # of Minutes Spent Total Time Spent with Patient: Total time spent is greater than 50% in coordination of care (as documented) at patient's floor/unit and/or counseling patient: Coding Level of Care Code 32501 Subseq Hosp Care Lvl 2 Diagnoses Palliative care encounter Z51.5 Compression fracture Lung cancer metastatic to bone C34.90; C79.51 Intra-abdominal abscess K65.1
--- NOTE | 2021-02-21 12:09 | Coding Query ---
CODING QUERY To promote full compliance with coding requirements relating to patient care, provider participation is requested in all cases of senior training specialist uncertainty. Please assist us with the question(s) below: Coding Question(s): Vertebral Compression Fractures are documented throughout the record and on Discharge Summary with the Orthopedic Consultation on 02/06 documenting, " Again there is significant concern that some of these fractures may be due to metastatic disease as she has a history of lung cancer and breast cancer have previously metastasized to bone". Please specify below, in your clinical opinion, regarding Vertebral Compression Fractures. ( x ) Vertebral Compression Fractures are likely pathological due to Neoplastic Disease/Cancer ( ) Vertebral Compression Fractures are likely Not pathological and are due to Trauma ( ) Vertebral Compression Fractures are likely not pathological and are Nontraumatic ( ) Vertebral Compression Fractures are likely Other: Please Specify Physician's Response(s): Thank you Yu Amaral Principal Diagnosis: "that condition established after study, to be chiefly responsible for occasioning the admission of the patient to the hospital for care." Co-Existing Principal Diagnosis: "when two or more diagnoses equally meet the criteria for principal diagnosis as determined by the circumstances of admission, diagnostic work up, and/or therapy provided, and the Alphabetic Index, Tabular List, or another coding guideline does not provide sequencing direction, any one of the diagnoses may be sequenced first." "When the physician has documented what appears to be a current diagnosis in the body of the record, but has not included the diagnosis in the final diagnostic statement, the physician should be asked whether the diagnosis should be added." ([facility] 2 QTR90. p3-4) POONAM
--- NOTE | 2021-02-21 12:14 | Coding Query ---
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 Please assist us with the question(s) below: Coding Question(s): Physician's Response(s): DVT is documented with LLE Popliteal DVT and there is documentation, as on Discharge Summary of, "LLE popliteal DVT. Provoked - recent surgery - patient at high risk due to underlying malignancy". Please specify below, regarding LLE DVT. ( ) LLE DVT is likely a postprocedural complication (x ) LLE DVT is likely due to malignancy ( ) LLE DVT is NOT likely postprocedural complication and Not due to Malignancy ( ) LLE DVT is likely Other: Please Specify ( ) LLE DVT is unspecified and not a postprocedural complication Thank you Yu Amaral Principal Diagnosis: "that condition established after study, to be chiefly responsible for occasioning the admission of the patient to the hospital for care." Co-Existing Principal Diagnosis: "when two or more diagnoses equally meet the criteria for principal diagnosis as determined by the circumstances of admission, diagnostic work up, and/or therapy provided, and the Alphabetic Index, Tabular List, or another coding guideline does not provide sequencing direction, any one of the diagnoses may be sequenced first." "When the physician has documented what appears to be a current diagnosis in the body of the record, but has not included the diagnosis in the final diagnostic statement, the physician should be asked whether the diagnosis should be added." ([facility] 2 QTR90. p3-4) POONAM
== END 2021-02-09 18:40 | disposition hospice, home (50) | DRG 542 ==
LOC: ED 14:57 → 2N 21:38 → SUATTDRO 22:10 → 2N 22:10 → 2W 02-08 16:08

== ENCOUNTER 2021-03-04 09:11 | Inpatient (IN) ==
[2021-03-04 10:04] LABS: Basophils # (auto) 0.02 K/uL (0-0.2); Basophils % (auto) 0.3 %; Eosinophils # (auto) 0.08 K/uL (0-0.5); Hematocrit (blood only) 32.6 % (37-47); Hemoglobin 10.2 g/dL (12.0-16.0); Immature Granulocytes # (auto) 0.01 K/uL (0.00-0.02); Immature Granulocytes % (auto) 0.1 %; Lymphocytes # (auto) 0.58 K/uL (1.2-3.4); Lymphocytes % (auto) 7.3 %; Mean Corpuscular Hemoglobin 29.5 pg (25-34); Mean Corpuscular Hgb Conc 31.3 g/dL (32-36); Mean Corpuscular Volume 94.2 fL (80-100); Mean Platelet Volume 9.8 fL (7.4-10.4); Monocytes # (auto) 1.11 K/uL (0.11-0.59); Neutrophils # (auto) 6.11 K/uL (1.4-6.5); Neutrophils % (auto) 77.3 %; Platelet Count 204 K/uL (130-400); RDW Coefficient of Variation 15.7 % (11.5-14.5); RDW Standard Deviation 54.3 fL (36.4-46.3); Red Blood Count 3.46 M/uL (4.2-5.4); White Blood Count 7.91 K/uL (4.8-10.8)
[2021-03-04] MEDS ORDERED: SODIUM CHLORIDE 0.9% 1000ML 500 ML IV ONE (10:05)
[2021-03-04 10:06] LABS: Alanine Aminotransferase < 6 U/L (12-78); Albumin Level 1.7 gm/dl (3.4-5.0); Aspartate Aminotransferase 13 U/L (15-37); BUN Creatinine Ratio 18.9 (10-20); Blood Urea Nitrogen 10 mg/dl (7-18); Calcium 8.3 mg/dl (8.5-10.1); Carbon Dioxide 27 mmol/L (21-32); Chloride 103 mmol/L (98-107); Creatinine Clr Calc Pharmacy 63.9 ml/min; Est GFR (African American) 104.1 ml/min; Est GFR (Non-African American) 89.8 ml/min; Glucose 83 mg/dl (70-99); Lipase 70 U/L (73-393); Potassium 3.5 mmol/L (3.5-5.1); Sodium 137 mmol/L (136-145)
[2021-03-04 10:10] LABS: Albumin Globulin Ratio 0.4 (0.9-2); Alkaline Phosphatase 103 U/L (45-117); Bilirubin,Total 0.2 mg/dl (0.2-1); Globulin 4.4 gm/dl (2.5-4.0); Total Protein 6.1 gm/dl (6.4-8.2); Troponin I < 0.015 ng/ml (0-0.045)
[2021-03-04] MEDS ORDERED: MoRPHine SULFATE 4 MG/ML 1 ML CARP\\VIAL IV STA (10:10)
[2021-03-04] MEDS ORDERED: PROCHLORPERAZINE 1 ML IV ONE (10:10)
[2021-03-04] MEDS ORDERED: OPTIRAY 320 150ml IV ONE (10:41)
--- NOTE | 2021-03-04 11:14 | Emergency Department Note ---
History of Present Illness General Chief complaint: Nausea Stated complaint: AB PAIN, NAUSEA, VOMITING Time Seen by Provider: 03/04/21 09:22 Source: patient Mode of arrival: EMS Limitations: no limitations History of Present Illness Provider complaint: Abdominal pain and back pain Maximum Pain Intensity: 9 This is a 80-year-old female with history of metastatic lung cancer with osseous mets to her back including compression fractures related to these. The patient also had a recent abdominal abscess and the GREGG drain fell out as well as history of DVT. The patient reports diffuse abdominal discomfort but more so in the upper abdomen. Mainly in the midline/supraumbilical. She also reports nausea and vomiting. The symptoms have been ongoing for the past week. She felt she can keep nothing down. She was discharged in early January from the hospital and felt to be a hospice candidate but the patient did not want to go on hospice. She had been getting chemotherapy with IV infusions but her last one was about 6 weeks ago because she has not been feeling well. She reports a temperature of 101 yesterday. She had been taking oxycodone antinausea medication at home that did not seem to help much. Home Medications Medication Instructions Recorded Confirmed Type citalopram 40 mg tablet 40 mg PO QAM #90 tab 01/09/20 03/04/21 Rx aspirin 81 mg PO QAM 08/09/20 03/04/21 History diazepam 5 mg tablet See Rx Instructions PO .COMPLEX 01/31/21 03/04/21 Rx PRN #30 tab folic acid 1 mg tablet 1 mg PO QAM 02/10/21 03/04/21 History magnesium oxide 400 mg PO BID 02/10/21 03/04/21 History potassium chloride 10 mEq See Rx Instructions PO BID 02/10/21 03/04/21 History capsule,extended release torsemide 10 mg tablet 10 mg PO QAM 02/10/21 03/04/21 History fluconazole 200 mg tablet 200 mg PO Q72H PRN #5 tab 02/17/21 03/04/21 Rx metaxalone 800 mg tablet 400 - 800 mg PO TID PRN #30 tab 02/18/21 03/04/21 Rx calcitonin (salmon) 1 spray INTRANASAL (ALT) QDL 03/04/21 03/04/21 History levothyroxine [Synthroid] 100 mcg PO DAILYBB 03/04/21 03/04/21 History rivaroxaban [Xarelto] 20 mg PO HS 03/04/21 03/04/21 History Allergies Allergy/AdvReac Type Severity Reaction Status Date / Time nickel Allergy Intermediate Rash Verified 03/04/21 11:16 venlafaxine AdvReac Intermediate Hypertensio Verified 03/04/21 11:16 n,Headache clarithromycin AdvReac Mild Nausea/Vomi Verified 03/04/21 11:16 ting codeine AdvReac Mild UPSET Verified 03/04/21 11:16 STOMACH hydrocodone AdvReac Mild Nausea/Vomi Verified 03/04/21 11:16 ting metronidazole [From Flagyl] AdvReac Mild Gastrointestinal Verified 03/04/21 11:16 Upset Past Med/Surg History Medical History Abdominal wall fistula Abnormal electrocardiogram Adenocarcinoma, lung Adrenal cortical adenoma Anxiety Arthritis Ascites Biceps tendonitis Breast cancer metastasized to bone Cataract COVID-19 virus antibody negative Depression Diverticulitis Esophageal dyskinesia Essential hypertriglyceridemia Fatigue Gastritis History of bronchitis Hyperlipidemia Hypocalcemia Hypomagnesemia Hypothyroidism Intermittent hydrarthrosis of elbow Irritable bowel syndrome Lung cancer NEW DX Metastatic bone cancer radiation treatments completed 08/25/19. Olecranon bursitis Osteoarthritis Osteopenia Pathological fracture of left hip Pelvic abscess Pneumonia hx SBO (small bowel obstruction) SBO (small bowel obstruction) Sialoadenitis Small bowel obstruction Surgical wound, non healing Wound dehiscence Wound infection Surgical History History of cataract surgery RT/LEFT History of colonoscopy Dr. Veronica 12/2011 History of dilatation and curettage History of discectomy CERVICAL (GOOD ROM) History of repair of rotator cuff RT History of tooth extraction S/P section X 1 S/P hip replacement left. 07/02/2019. SAB with MAC. no issues. Status post Patricio procedure Surgery, elective Revision of Meeks for stricture Surgery, elective 01/19/21 Partial proctectomy, takedown of enterocutaneous fistula, partial small bowel resection, repair of parastomal hernia Family History Family/Other Family history of diabetes mellitus Brother Family hx of colon cancer Mother , age 66 Diabetes Cancer ovarian Coronary heart disease had acute TN which led to her Sister Cancer Family/Other Breast cancer Father , age 49 Suicide Alcoholism Social History Smoking Status: Unknown if ever smoked Tobacco Type: Cigarettes Age Started Using Tobacco: 21; packs per day: 0.5; Cigarettes Per Day: 10; Second Hand Exposure: No; Hx Alcohol Use: Yes Alcohol type: wine Hx Substance Use: Yes Last Used Substance: Unknown Last Used Substance Other:: 12/23/20 Substance Use Type Other:: medical Preferred Language: Serbian Communication Ability: Effective Visual Impairment: No Limitations Hearing Ability: Normal Metal Tube Cutter Required: No Beliefs That Will Affect Care: None marital status: / Current Living Situation: Family Current Living Situation Comment: lives with grandson current occupational status: retired current occupation: worked at [employer] (Subtextual other: 1 daughter Feels Safe at Home: Yes Childhood Exposure to Second-Hand Smoke: Yes (both parents) caffeine: Yes Dental Care, Regularly: No Seatbelt Use: always Assistive Devices: Oxygen - Continuous Review of Systems A total of 10 systems reviewed and were otherwise negative Physical Exam Vital Signs Vital Signs - 24 hr 03/04/21 09:25 03/04/21 09:53 03/04/21 11:24 Temperature 36.8 C Temperature Source Oral Pulse Rate 90 Respiratory Rate 18 24 Blood Pressure 130/77 136/68 Blood Pressure Mean 94 90 Pulse Oximetry 95 94 93 Oxygen Delivery Method Room Air Room Air Sepsis Recent Fever Within 48 Hours No Sepsis New/Unexplained Change in Mental Status No Sepsis Action Taken by Nursing No Action Required CONSTITUTIONAL/VITAL SIGNS: Reviewed / noted above. GENERAL: Non-toxic in appearance. No acute distress. INTEGUMENTARY: Warm, dry, and [place]. HEAD: Normocephalic. EYES: without scleral icterus or trauma. ENT/OROPHARYNX: clear and moist. LYMPHADENOPATHY/NECK: Is supple without lymphadenopathy or meningismus. RESPIRATORY: Lungs clear and equal. CARDIOVASCULAR: Regular rate and rhythm. GI/ABDOMEN: Soft and tender in the mid upper abdomen. No organomegaly or pulsatile mass. No rebound or guarding. Normal bowel sounds. EXTREMITIES: Warm and well perfused. BACK: No CVA tenderness. NEUROLOGICAL: Intact without focal deficits. PSYCHIATRIC: normal affect. MUSCULOSKELETAL: Normally developed with good muscle tone. TRIAGE NURSING DOCUMENTATION REVIEWED. Course Administered Medications Discontinued Medications Sodium Chloride (Nss 1000ml) 500 mls @ 999 mls/hr IV .Q31M ONE Stop: 03/04/21 10:35 Last Admin: 03/04/21 10:16 Dose: 999 mls/hr Documented by: [id number] Prochlorperazine (Compazine) 1 mls @ 1 mls/min IV ONE ONE Stop: 03/04/21 10:11 Last Admin: 03/04/21 10:16 Dose: 1 mls/min Documented by: [id number] Ioversol (Optiray 320 150ml) 100 ml IV ONCE ONE Stop: 03/04/21 10:42 Last Admin: 03/04/21 10:41 Dose: 100 ml Documented by: [id number] Morphine Sulfate (Morphine Sulfate 4 Mg/Ml 1 Ml Carp\Vial) 3 mg IV NOW STA Stop: 03/04/21 10:11 Last Admin: 03/04/21 10:16 Dose: 3 mg Documented by: [id number] Medical Decision Making Laboratory Data Result diagrams: 03/04/21 09:25 03/04/21 09:25 Lab Results 03/04/21 03/04/21 Range/Units 09:25 09:25 WBC 7.91 (4.8-10.8) K/uL RBC 3.46 L (4.2-5.4) M/uL Hgb 10.2 L (12.0-16.0) g/dL Hct 32.6 L (37-47) % MCV 94.2 (80-100) fL MCH 29.5 (25-34) pg MCHC 31.3 L (32-36) g/dL RDW Std Deviation 54.3 H (36.4-46.3) fL RDW Coeff of Raymundo 15.7 H (11.5-14.5) % Plt Count 204 (130-400) K/uL MPV 9.8 (7.4-10.4) fL Immature Gran % (Auto) 0.1 % Neut % (Auto) 77.3 % Lymph % (Auto) 7.3 % Morrill % (Auto) 14.0 % Eos % (Auto) 1.0 % Baso % (Auto) 0.3 % Neut # (Auto) 6.11 (1.4-6.5) K/uL Lymph # (Auto) 0.58 L (1.2-3.4) K/uL Morrill # (Auto) 1.11 H (0.11-0.59) K/uL Eos # (Auto) 0.08 (0-0.5) K/uL Baso # (Auto) 0.02 (0-0.2) K/uL Immature Gran # (Auto) 0.01 (0.00-0.02) K/uL Sodium 137 (136-145) mmol/L Potassium 3.5 (3.5-5.1) mmol/L Chloride 103 (98-107) mmol/L Carbon Dioxide 27 (21-32) mmol/L Anion Gap 7.0 (3-11) BUN 10 (7-18) mg/dl Creatinine 0.55 L (0.6-1.2) mg/dl Est Cr Clr Drug Dosing 63.9 ml/min Est GFR ( Amer) 104.1 ml/min Est GFR (Non-Af Amer) 89.8 ml/min BUN/Creatinine Ratio 18.9 (10-20) Glucose 83 (70-99) mg/dl Calcium 8.3 L (8.5-10.1) mg/dl Total Bilirubin 0.2 (0.2-1) mg/dl AST 13 L (15-37) U/L ALT < 6 L (12-78) U/L Alkaline Phosphatase 103 (45-117) U/L Troponin I < 0.015 (0-0.045) ng/ml Total Protein 6.1 L (6.4-8.2) gm/dl Albumin 1.7 L (3.4-5.0) gm/dl Globulin 4.4 H (2.5-4.0) gm/dl Albumin/Globulin Ratio 0.4 L (0.9-2) Lipase 70 L (73-393) U/L Imaging Data Radiologist's Impression: Abdomen/Pelvis CT 03/04/21 10:[address] WITH IV CONTRAST CT DOSE: 241.96 mGy.cm HISTORY: Generalized abdominal pain - hx of abd abscesses + r/o sbo TECHNIQUE: Multiaxial CT images of the abdomen and pelvis were performed following the use of intravenous contrast. A dose lowering technique was utilized adhering to the principles of ALARA. COMPARISON STUDY: Abdomen and pelvis CT 02/04/2021. FINDINGS: Lung bases: Small to moderate pericardial effusion which is increased in size. Liver: The contrast-enhanced liver is normal in size, contour, and attenuation. There is no intrahepatic biliary ductal dilatation. The hepatic veins and portal veins are patent. Gallbladder: Unremarkable. Spleen: Upper limits of normal for size measuring 12 cm. There are calcified splenic granulomas. Pancreas: Mildly atrophic and grossly unremarkable. Adrenal glands: A 2 cm left adrenal nodule is unchanged from prior studies. The right adrenal gland is normal in appearance. Kidneys: The contrast enhanced kidneys demonstrate mild cortical atrophy. There is mild left-sided hydroureteronephrosis. This remains unchanged. No hydronephrosis is seen on the right. The kidneys enhance symmetrically. Small renal cysts measure up to 2 cm. Additional subcentimeter cortical hypodensities also likely represent cysts but are too small for definitive characterization. Abdominal vasculature: The abdominal aorta is normal in course and caliber noting advanced atherosclerotic calcification. Bowel: There is postoperative change of distal colonic resection with left lower quadrant colostomy. No bowel obstruction is seen. A rectal stump is noted in the pelvis. The appendix is not identified and reported surgically absent. Peritoneum: No intraperitoneal free air is identified. Prior midline incision. Decrease in size with near complete resolution of the peristomal fluid collection/abscess. Multiple peripheral enhancing fluid collections within the deep pelvis and right presacral space are again noted. These demonstrate a mixed response. Some of the fluid collections have slightly decreased in size in a few the fluid collection is slightly increased in size. These likely represent abscesses. Dilated fluid-filled loops of small bowel within the midabdomen with decompressed distal small bowel loops. This is concerning for a developing small bowel obstruction. The transition point is not clearly identified but is likely within the deep pelvis. Lymphadenopathy: None. Pelvic viscera: Evaluation of the pelvis is degraded by streak artifact from a left hip arthroplasty. The bladder wall is circumferentially thickened with pe ricystic inflammation. There are calcified uterine fibroids. Small amount of gas within the bladder lumen. This could be due to prior catheterization or a possible fistula. This is new compared the prior study. Skeletal structures: The skeletal structures are osteopenic A left hip arthroplasty is in place. The bony pelvis and proximal femora appear intact. No significant change within the compression deformities of L1, L2, L3, and L4. There is mild/moderate loss of height at L1 with mild loss of height at L2 and L3. Minimal loss of height is seen at L4. There is fatty atrophy of the paraspinous musculature. IMPRESSION: 1. There again noted multiple small loculated peripherally enhancing fluid collections within the deep pelvis which demonstrate a mixed response compared to the prior study. A few these fluid collections have slightly decreased in size and some of the fluid collections of slightly increased in size. These likely represent abscesses. 2. A few mildly dilated fluid-filled loops of small bowel within the midabdomen with decompressed distal loops of small bowel. This likely represents a developing small bowel obstruction. The transition point is not clearly identified but is likely located within the deep pelvis. 3. Small moderate pericardial effusion which is new from the prior study. 4. There is postoperative change of distal colon resection with left lower quadrant colostomy. 5. Small focus of gas within the bladder lumen which is also new from the prior study. This could be due to prior catheterization or possibly a evolving fistula. 6. Decreased in size in the loculated fluid within the subcutaneous fat at the ostomy site. 7. Mild left hydronephrosis is likely related to the inflammatory process in the left pelvis. 8. Additional findings as above. ACT 112: Negative or not required by law. Electronically signed by: Bao Alcala M.D. 03/04/2021 11:30 AM MDM Narrative Patient presents with chronic back and some new abdominal pain associated with some nausea and vomiting this past week. She has been able to keep her medicine down and the oxycodone has not been helping when it is down. She states that her nausea medicine does not seem to be helping as well. Details listed above. The patient CT scan shows a developing small bowel obstruction. There are also multiple fluid collections/abscesses that have been present previously. She also has a new pericardial effusion. Her blood work did not look that bad. The patient was treated here with some IV morphine and some IV Compazine. This did not improve her symptoms quite a bit. She was also given some IV fluids. Because she is unable to tolerate her home meds including the oxycodone and Zofran because of her nausea vomiting and developing small bowel obstruction, she will require further inpatient evaluation and care and pain management for her chronic metastatic pain issues. Impression & Plan Partial bowel obstruction Discharge Plan Visit Data Chief Complaint: Nausea Stated Complaint: AB PAIN, NAUSEA, VOMITING ED Provider: Dimitri Kamara ED Midlevel Provider: Armani Solis Discharge Problem: Partial bowel obstruction Patient Disposition: Admitted As Inpatient Forms Stand Alone Forms: [facility], Virtual Emergency Department, Important Visit Information Prescriptions Prescriptions: No Action citalopram [Celexa] 40 mg tablet 40 mg PO QAM Qty: 90 RF: 3 diazepam [Valium] 5 mg tablet See Rx Instructions PO .COMPLEX PRN (Reason: anxiety) Qty: 30 RF: 0 potassium chloride 10 mEq capsule, extended release See Rx Instructions PO BID RF: 0 torsemide 10 mg tablet 10 mg PO QAM RF: 0 folic acid 1 mg tablet 1 mg PO QAM RF: 0 magnesium oxide 400 mg magnesium tablet 400 mg PO BID RF: 0 fluconazole [Diflucan] 200 mg tablet 200 mg PO Q72H PRN (Reason: thrush) Qty: 5 RF: 0 metaxalone 800 mg tablet 400 - 800 mg PO TID PRN (Reason: muscle pain) Qty: 30 RF: 0 aspirin 81 mg Tablet,Delayed Release (Dr/Ec) 81 mg PO QAM RF: 0 levothyroxine [Synthroid] 100 mcg tablet 100 mcg PO DAILYBB RF: 0 calcitonin (salmon) 200 unit/actuation spray,non-aerosol 1 spray intranasal (ALT) QDL RF: 0 Xarelto 20 mg tablet 20 mg PO HS RF: 0 Referrals Referrals: Zion Bartholomew MD [Primary Care Provider] - Discharge Problem: Partial bowel obstruction Qualifiers: Intestinal obstruction type: other intestinal obstruction Qualified Code(s): K56.690 - Other partial intestinal obstruction
--- NOTE | 2021-03-04 11:31 | CT Scan Report ---
ABDOMEN AND PELVIS CT WITH IV CONTRAST CT DOSE: 241.96 mGy.cm HISTORY: Generalized abdominal pain - hx of abd abscesses + r/o sbo TECHNIQUE: Multiaxial CT images of the abdomen and pelvis were performed following the use of intrave nous contrast. A dose lowering technique was utilized adhering to the principles of ALARA. COMPARISON STUDY: Abdomen and pelvis CT 02/04/2021. FINDINGS: Lung bases: Small to moderate pericardial effusion which is increased in size. Liver: The contrast-enhanced liver is normal in size, contour, and attenuation. There is no intrahepa tic biliary ductal dilatation. The hepatic veins and portal veins are patent. Gallbladder: Unremarkable. Spleen: Upper limits of normal for size measuring 12 cm. There are calcified splenic granulomas. Pancreas: Mildly atrophic and grossly unremarkable. Adrenal glands: A 2 cm left adrenal nodule is unchanged from prior studies. The right adrenal gland i s normal in appearance. Kidneys: The contrast enhanced kidneys demonstrate mild cortical atrophy. There is mild left-sided hy droureteronephrosis. This remains unchanged. No hydronephrosis is seen on the right. The kidneys enha nce symmetrically. Small renal cysts measure up to 2 cm. Additional subcentimeter cortical hypodensit ies also likely represent cysts but are too small for definitive characterization. Abdominal vasculature: The abdominal aorta is normal in course and caliber noting advanced atheroscle rotic calcification. Bowel: There is postoperative change of distal colonic resection with left lower quadrant colostomy. No bowel obstruction is seen. A rectal stump is noted in the pelvis. The appendix is not identified and reported surgically absent. Peritoneum: No intraperitoneal free air is identified. Prior midline incision. Decrease in size with near complete resolution of the peristomal fluid collection/abscess. Multiple peripheral enhancing fl uid collections within the deep pelvis and right presacral space are again noted. These demonstrate a mixed response. Some of the fluid collections have slightly decreased in size in a few the fluid col lection is slightly increased in size. These likely represent abscesses. Dilated fluid-filled loops o f small bowel within the midabdomen with decompressed distal small bowel loops. This is concerning fo r a developing small bowel obstruction. The transition point is not clearly identified but is likely within the deep pelvis. Lymphadenopathy: None. Pelvic viscera: Evaluation of the pelvis is degraded by streak artifact from a left hip arthroplasty. The bladder wall is circumferentially thickened with pericystic inflammation. There are calcified ut erine fibroids. Small amount of gas within the bladder lumen. This could be due to prior catheterizat ion or a possible fistula. This is new compared the prior study. Skeletal structures: The skeletal structures are osteopenic A left hip arthroplasty is in place. The bony pelvis and proximal femora appear intact. No significant change within the compression deformities of L1, L2, L3, and L4. There is mild/moderat e loss of height at L1 with mild loss of height at L2 and L3. Minimal loss of height is seen at L4. T here is fatty atrophy of the paraspinous musculature. IMPRESSION: 1. There again noted multiple small loculated peripherally enhancing fluid collections within the juan antonio p pelvis which demonstrate a mixed response compared to the prior study. A few these fluid collection s have slightly decreased in size and some of the fluid collections of slightly increased in size. Th momo likely represent abscesses. 2. A few mildly dilated fluid-filled loops of small bowel within the midabdomen with decompressed dis donnie loops of small bowel. This likely represents a developing small bowel obstruction. The transition point is not clearly identified but is likely located within the deep pelvis. 3. Small moderate pericardial effusion which is new from the prior study. 4. There is postoperative change of distal colon resection with left lower quadrant colostomy. 5. Small focus of gas within the bladder lumen which is also new from the prior study. This could be due to prior catheterization or possibly a evolving fistula. 6. Decreased in size in the loculated fluid within the subcutaneous fat at the ostomy site. 7. Mild left hydronephrosis is likely related to the inflammatory process in the left pelvis. 8. Additional findings as above. ACT 112: Negative or not required by law. Electronically signed by: Bao Alcala M.D. 03/04/2021 11:30 AM
--- NOTE | 2021-03-04 11:39 | Electrocardiogram Report ---
Test Reason : Blood Pressure : / mmHG Vent. Rate : 088 BPM Atrial Rate : 088 BPM P-R Int : 122 ms QRS Dur : 078 ms QT Int : 368 ms P-R-T Axes : 060 -59 057 degrees QTc Int : 445 ms Normal sinus rhythm Left axis deviation Abnormal ECG When compared with ECG of 04-FEB-2021 15:13, Criteria for Septal infarct are no longer Present T wave inversion no longer evident in Anterior leads Confirmed by Pj Ruiz ([id number] on 03/04/2021 11:39:11 AM Referred By: REFERRED SELF Confirmed By:Pj Ruiz
[2021-03-04] MEDS ORDERED: PIPERACILL/TAZOBAC CONSULT ACTIVE PRN ×2 (12:30→16:18)
[2021-03-04] MEDS ORDERED: PIPERACILLIN/TAZOBACTAM 3.375 GM in DEXTROSE 5% 100 ML IV SCH (12:30)
[2021-03-04] MEDS ORDERED: TOBRAMYCIN CONSULT ACTIVE PRN (12:30)
[2021-03-04] MEDS ORDERED: PIPERACILLIN/TAZOBACTAM 4.5 GM/120 ML BAG IV STA (12:38)
[2021-03-04] MEDS ORDERED: GENTAMICIN SULFATE 340 MG in DEXTROSE 5% 100 ML IV STA (12:40)
--- NOTE | 2021-03-04 13:05 | History & Physical Report ---
Date of Service March 04, 2021 Assessment & Plan (1) Partial bowel obstruction: As per HPI. Will plae NGT to LIWS, bowel rest, IVF hydration and antiemetics - Follow with [facility] in the morning - General Surgery consulted, appreciate assistance - Hopeful that patient will respond to conservative treatment measures- chart review from past reviews patient and daughter have declined further surgical options. - I have talked with the daughter Aydee in regards to those discussions. As far as the abscess and fluid collection in her abdomen they did not wish to pursue further drainage of these, however if a life-threatening obstruction or perforation were to occur, she would defer to her mother's decision as she is still able to do so. (2) Abdominal abscess: Will place back on Antibiotics- Double coverage with Zosyn and Gentamicin - Both which could be transitioned to outpatient if needed - Follow Gent levels and renal function - Pharmacy consult appreciated (3) Compression fracture: Dilaudid 2.5 mg IV q4 and Valium 2.5 mg IV for pain - chronic use at home monitor for withdraw as well as for pain control (4) DVT (deep venous thrombosis): Will perform bilateral ultrasound to asses for still remaining popliteal DVT - Heparin drip while NPO if clot is still present - Transition per rounding team (5) Thrush: Chronic that gets worse when patient is on antibiotics - Fluconazole 200mg IV daily - Add magic swizzle if patient will be able to perform with NGT in tomorrow (6) Lung cancer metastatic to bone: As above (7) Malnutrition: with abdominal infections and NPO at this time- unable to advance any supplementation - Continue to address if clinical course changes (8) Hyperlipidemia: Stable (9) Hypertension: No acute needs, follow while NPO additional therapy if SBP >180 - torsemide on hold (10) COPD (chronic obstructive pulmonary disease): No acute need, not on oxygen - Albuterol as needed (11) Hypothyroidism: Synthroid 100mcg as outpatient PO - Converted to 50% IV -- 50mcg IV - TSH pending History of Present Illness Primary Care Provider: Zion Bartholomew MD 80 YOF with past medical history of 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 Complicated enterocutaneous fistulas with abscess, bowel obstructions, colitis, and abdominal wall wound infections with Pseudomonas and mild left hydronephrosis. In Oct 2019, the patient underwent a sigmoid colostomy and appendectomy. She had a GREGG drain placed to drain her intra-abdominal fluid collections, which came out a couple of weeks ago. She comes into the ED today for inability to keep her medications down, eat or drink anything for the past 2-3 days. She had a CT scan performed of the abdomen in the EMD that revealed the chronic abscess which have varied in size with some decreasing and some increasing in size, but also revealed a likely developing SBO. Patient was recently admitted in January and was also noted to have a nonocclusive deep venous thrombosis identified within 1 of paired left popliteal veins, where she was placed on a heparin drip and transitioned to Xeralto, she has not been able to take this since Sunday. Patient reports that she started getting increase in her abdominal pain around Sunday, that progressed to nausea on Sunday and on Sunday she vomited and has been unable to eat or drink anything since then. Her pain is right upper midline quadrant that is sharp and tender to palpation. She noticed that on Sunday and her Ostomy output changed to more liquid as well. She denies any fevers or chills since then, and her WBC count is 7. I reviewed the findings of her CT scan regarding her likely progressing bowel obstruction in regards to conservative treatment at this time to include bowel rest, IVF, pain and antiemetics, but to include in her bowel rest would recommend an Nasogastric tube, which the patient would want at this time. Surgery has been consulted and patient will be admitted to PCU for pain control, heparin drip, and conversion of her medications to IV to include her Synthroid. She will be started on double coverage for her Pseudomonas infection regarding her last wound cultures to include Zosyn and Gentamicin. During her hospital admission in January the patient voiced frustration and fatigue of her diagnosis and treatment, and palliative care had a long discussion with her as far as transition to comfort and allow her to pass naturally and peacefully, she originally wanted to proceed, and antibiotics were stopped, labs and testing were discontinued and the patient was discharged with the follow up to Hospice. The patient declined this after discharge, and states "that was a mistake at that time, I am not ready yet". I have talked with the daughter Aydee in regards to those discussions. As far as the abscess and fluid collection in her abdomen they did not wish to pursue further drainage of these, however if a life-threatening obstruction or perforation were to occur, she would defer to her mother's decision as she is still able to do so. They understand that this will not change the terminal outcome of her cancer, but will be up to Aydee for how she wants to continue to proceed through everything. I reviewed the current plan with the patient and the daughter and are amendable to following her progression. Allergies Allergy/AdvReac Type Severity Reaction Status Date / Time nickel Allergy Intermediate Rash Verified 03/04/21 11:16 venlafaxine AdvReac Intermediate Hypertensio Verified 03/04/21 11:16 n,Headache clarithromycin AdvReac Mild Nausea/Vomi Verified 03/04/21 11:16 ting codeine AdvReac Mild UPSET Verified 03/04/21 11:16 STOMACH hydrocodone AdvReac Mild Nausea/Vomi Verified 03/04/21 11:16 ting metronidazole [From Flagyl] AdvReac Mild Gastrointestinal Verified 03/04/21 11:16 Upset Home Medications Medication Instructions Recorded Confirmed Type citalopram 40 mg tablet 40 mg PO QAM #90 tab 01/09/20 03/04/21 Rx aspirin 81 mg PO QAM 08/09/20 03/04/21 History diazepam 5 mg tablet See Rx Instructions PO .COMPLEX 01/31/21 03/04/21 Rx PRN #30 tab folic acid 1 mg tablet 1 mg PO QAM 02/10/21 03/04/21 History magnesium oxide 400 mg PO BID 02/10/21 03/04/21 History potassium chloride 10 mEq See Rx Instructions PO BID 02/10/21 03/04/21 History capsule,extended release torsemide 10 mg tablet 10 mg PO QAM 02/10/21 03/04/21 History fluconazole 200 mg tablet 200 mg PO Q72H PRN #5 tab 02/17/21 03/04/21 Rx metaxalone 800 mg tablet 400 - 800 mg PO TID PRN #30 tab 02/18/21 03/04/21 Rx calcitonin (salmon) 1 spray INTRANASAL (ALT) QDL 03/04/21 03/04/21 History levothyroxine [Synthroid] 100 mcg PO DAILYBB 03/04/21 03/04/21 History rivaroxaban [Xarelto] 20 mg PO HS 03/04/21 03/04/21 History Past Med/Surg History Medical History Abdominal wall fistula Abnormal electrocardiogram Adenocarcinoma, lung Adrenal cortical adenoma Anxiety Arthritis Ascites Biceps tendonitis Breast cancer metastasized to bone Cataract COVID-19 virus antibody negative Depression Diverticulitis Esophageal dyskinesia Essential hypertriglyceridemia Fatigue Gastritis History of bronchitis Hyperlipidemia Hypocalcemia Hypomagnesemia Hypothyroidism Intermittent hydrarthrosis of elbow Irritable bowel syndrome Lung cancer NEW DX Metastatic bone cancer radiation treatments completed 08/25/19. Olecranon bursitis Osteoarthritis Osteopenia Pathological fracture of left hip Pelvic abscess Pneumonia hx SBO (small bowel obstruction) SBO (small bowel obstruction) Sialoadenitis Small bowel obstruction Surgical wound, non healing Wound dehiscence Wound infection Surgical History History of cataract surgery RT/LEFT History of colonoscopy Dr. Veronica 12/2011 History of dilatation and curettage History of discectomy CERVICAL (GOOD ROM) History of repair of rotator cuff RT History of tooth extraction S/P section X 1 S/P hip replacement left. 07/02/2019. SAB with MAC. no issues. Status post Patricio procedure Surgery, elective Revision of [place]ks for stricture Surgery, elective 01/19/21 Partial proctectomy, takedown of enterocutaneous fistula, partial small bowel resection, repair of parastomal hernia Family History Family/Other Family history of diabetes mellitus Brother Family hx of colon cancer Mother , age 66 Diabetes Cancer ovarian Coronary heart disease had acute SD which led to her Sister Cancer Family/Other Breast cancer Father , age 49 Suicide Alcoholism Social History Smoking Status: Unknown if ever smoked Tobacco Type: Cigarettes Age Started Using Tobacco: 21; packs per day: 0.5; Cigarettes Per Day: 10; Second Hand Exposure: No; Hx Alcohol Use: Yes Alcohol type: wine Hx Substance Use: Yes Last Used Substance: Unknown Last Used Substance Other:: 12/23/20 Substance Use Type Other:: medical Preferred Language: Belarusian Communication Ability: Effective Visual Impairment: No Limitations Hearing Ability: Normal Elevating Grader Operator Required: No Beliefs That Will Affect Care: None marital status: / Current Living Situation: Family Current Living Situation Comment: lives with grandson current occupational status: retired current occupation: worked at [employer]) other: 1 daughter Feels Safe at Home: Yes Childhood Exposure to Second-Hand Smoke: Yes (both parents) caffeine: Yes Dental Care, Regularly: No Seatbelt Use: always Assistive Devices: Oxygen - Continuous Review of Systems Review of Systems: REVIEW OF SYSTEMS: Constitutional: No fever, sweats or chills Eyes: No diplopia, no worsening or blurred vision ENT: normal hearing, no trouble swallowing Respiratory: No cough, sputum, dyspnea at rest or on exertion Cardiovascular: No chest pain, tightness or palpitations Abdomen: (+) pain, nausea, vomiting, diarrhea or constipation Musculoskeletal: (+) back joint pain, No calf pain, swelling Neurologic: (+) weakness, numbness/tingling, or balance problems Psychiatric: (+) depression Skin: No rash or itch Physical Exam Physical Exam: PHYSICAL EXAM: General: awake, alert, cachectic, fatigued Head: Normocephalic, atraumatic ENT: PERRL, EOMI, no pharyngeal exudate, mucous membranes moist Neuro: AAO x 3, speech clear and appropriate, strength intact bilaterally 5/5, sensation intact and equal all extremities and dermatomes, no pronator drift Chest: equal rise and fall of the chest, no accessory muscle use, no heaves or thrills, Clear to auscultation, on room air, Cardiac: Regular rate and rhythm, telemetry reviewed, skin warm dry, cap refill <3 seconds, peripheral pules +2 no JVD, no murmur,no edema GI: tender to palpation upper quadrants, soft but tympanic, guarding, dressing covering GREGG wound no errythema or drainage, ostomy pink, draining green liquid stool semi formed : Spontaneously voiding, no pain, no CVA tenderness, Extremities: Normal inspection, no peripheral edema or erythema, calfs nontende r to palpation Psych: fatigued and teary Skin: no rash or erythema Results & Data Results & Data ([facility]) Vital Signs (Past 12 Hours) Vital Signs Temp Pulse Resp BP Pulse Ox 03/04/21 11:24 24 136/68 93 03/04/21 09:53 94 03/04/21 09:25 36.8 C 90 18 130/77 95 Laboratory Results Abnormal lab results 03/04/21 03/04/21 Range/Units 09:25 09:25 RBC 3.46 L (4.2-5.4) M/uL Hgb 10.2 L (12.0-16.0) g/dL Hct 32.6 L (37-47) % MCHC 31.3 L (32-36) g/dL RDW Std Deviation 54.3 H (36.4-46.3) fL RDW Coeff of Raymundo 15.7 H (11.5-14.5) % Lymph # (Auto) 0.58 L (1.2-3.4) K/uL [place] # (Auto) 1.11 H (0.11-0.59) K/uL Creatinine 0.55 L (0.6-1.2) mg/dl Calcium 8.3 L (8.5-10.1) mg/dl AST 13 L (15-37) U/L ALT < 6 L (12-78) U/L Total Protein 6.1 L (6.4-8.2) gm/dl Albumin 1.7 L (3.4-5.0) gm/dl Globulin 4.4 H (2.5-4.0) gm/dl Albumin/Globulin Ratio 0.4 L (0.9-2) Lipase 70 L (73-393) U/L Diagnostic Findings Abdomen/Pelvis CT 03/04/21 10:[address] WITH IV CONTRAST CT DOSE: 241.96 mGy.cm HISTORY: Generalized abdominal pain - hx of abd abscesses + r/o sbo TECHNIQUE: Multiaxial CT images of the abdomen and pelvis were performed following the use of intravenous contrast. A dose lowering technique was utilized adhering to the principles of ALARA. COMPARISON STUDY: Abdomen and pelvis CT 02/04/2021. FINDINGS: Lung bases: Small to moderate pericardial effusion which is increased in size. Liver: The contrast-enhanced liver is normal in size, contour, and attenuation. There is no intrahepatic biliary ductal dilatation. The hepatic veins and portal veins are patent. Gallbladder: Unremarkable. Spleen: Upper limits of normal for size measuring 12 cm. There are calcified splenic granulomas. Pancreas: Mildly atrophic and grossly unremarkable. Adrenal glands: A 2 cm left adrenal nodule is unchanged from prior studies. The right adrenal gland is normal in appearance. Kidneys: The contrast enhanced kidneys demonstrate mild cortical atrophy. There is mild left-sided hydroureteronephrosis. This remains unchanged. No hydronephrosis is seen on the right. The kidneys enhance symmetrically. Small renal cysts measure up to 2 cm. Additional subcentimeter cortical hypodensities also likely represent cysts but are too small for definitive characterization. Abdominal vasculature: The abdominal aorta is normal in course and caliber noting advanced atherosclerotic calcification. Bowel: There is postoperative change of distal colonic resection with left lower quadrant colostomy. No bowel obstruction is seen. A rectal stump is noted in the pelvis. The appendix is not identified and reported surgically absent. Peritoneum: No intraperitoneal free air is identified. Prior midline incision. Decrease in size with near complete resolution of the peristomal fluid collection/abscess. Multiple peripheral enhancing fluid collections within the deep pelvis and right presacral space are again noted. These demonstrate a mixed response. Some of the fluid collections have slightly decreased in size in a few the fluid collection is slightly increased in size. These likely represent abscesses. Dilated fluid-filled loops of small bowel within the midabdomen with decompressed distal small bowel loops. This is concerning for a developing small bowel obstruction. The transition point is not clearly identified but is likely within the deep pelvis. Lymphadenopathy: None. Pelvic viscera: Evaluation of the pelvis is degraded by streak artifact from a left hip arthroplasty. The bladder wall is circumferentially thickened with pericystic inflammation. There are calcified uterine fibroids. Small amount of gas within the bladder lumen. This could be due to prior catheterization or a possible fistula. This is new compared the prior study. Skeletal structures: The skeletal structures are osteopenic A left hip arthroplasty is in place. The bony pelvis and proximal femora appear intact. No significant change within the compression deformities of L1, L2, L3, and L4. There is mild/moderate loss of height at L1 with mild loss of height at L2 and L3. Minimal loss of height is seen at L4. There is fatty atrophy of the paraspinous musculature. IMPRESSION: 1. There again noted multiple small loculated peripherally enhancing fluid collections within the deep pelvis which demonstrate a mixed response compared to the prior study. A few these fluid collections have slightly decreased in size and some of the fluid collections of slightly increased in size. These likely represent abscesses. 2. A few mildly dilated fluid-filled loops of small bowel within the midabdomen with decompressed distal loops of small bowel. This likely represents a developing small bowel obstruction. The transition point is not clearly identified but is likely located within the deep pelvis. 3. Small moderate pericardial effusion which is new from the prior study. 4. There is postoperative change of distal colon resection with left lower quadrant colostomy. 5. Small focus of gas within the bladder lumen which is also new from the prior study. This could be due to prior catheterization or possibly a evolving fistula. 6. Decreased in size in the loculated fluid within the subcutaneous fat at the ostomy site. 7. Mild left hydronephrosis is likely related to the inflammatory process in the left pelvis. 8. Additional findings as above. Electronically signed by: Bao Alcala M.D. 03/04/2021 11:30 AM Medications Administered Discontinued Medications Sodium Chloride (Nss 1000ml) 500 mls @ 999 mls/hr IV .Q31M ONE Stop: 03/04/21 10:35 Last Infusion: 03/04/21 12:07 Dose: 0 mls/hr Documented by: [id number] Admin: 03/04/21 10:16 Dose: 999 mls/hr Documented by: [id number] Prochlorperazine (Compazine) 1 mls @ 1 mls/min IV ONE ONE Stop: 03/04/21 10:11 Last Admin: 03/04/21 10:16 Dose: 1 mls/min Documented by: [id number] Piperacillin Sod/Tazobactam Sod (Zosyn) 4.5 gm in 120 mls @ 240 mls/hr IV NOW STA Stop: 03/04/21 13:07 Last Admin: 03/04/21 13:13 Dose: 240 mls/hr Documented by: [id number] Ioversol (Optiray 320 150ml) 100 ml IV ONCE ONE Stop: 03/04/21 10:42 Last Admin: 03/04/21 10:41 Dose: 100 ml Documented by: [id number] Morphine Sulfate (Morphine Sulfate 4 Mg/Ml 1 Ml Carp\\Vial) 3 mg IV NOW STA Stop: 03/04/21 10:11 Last Admin: 03/04/21 10:16 Dose: 3 mg Documented by: [id number] ECG Additional Comments: Normal sinus rhythm Left axis deviation Abnormal ECG When compared with ECG of 04-FEB-2021 15:13, Criteria for Septal infarct are no longer Present T wave inversion no longer evident in Anterior leads Code Status & VTE Plan Code Status CODE: FULL VTE: SCD's, Heparin Drip VTE Prophylaxis Plan VTE Prophylaxis will be ordered: Yes Supervising Physician Co-Signing Physician Notes Attending addendum: I have physically seen this patient, have supervised the medical residents activities, and agree with the H&P unless as otherwise noted. Assessment and Plan: Partial small bowel obstruction/abdominal abscess- NG tube to low intermittent suction N.p.o. IV fluids Zofran 4 mg IV every 6 hours as needed Famotidine 20 mg IV every 12 hours History of Pseudomonas, therefore double cover with Zosyn IV and gentamicin IV Follow serial laboratories General surgery consulted and saw in the ED Popliteal DVT history- Order lower extremity venous Doppler. If clot still present, will place on heparin drip otherwise will place on heparin subcu for DVT prophylaxis Recurrent thrush- Patient reports gets thrush worsening went on IV antibiotics Placed on fluconazole 10 mg IV daily Remaining orders and notations as noted PG Care Time/CCT Total # of Minutes Spent Total Time Spent with Patient: Total time spent is greater than 50% in coordination of care (as documented) at patient's floor/unit and/or counseling patient: Coding Level of Care Code 45411 Initial Inpt Care Lvl 3 Diagnoses Partial bowel obstruction K56.690 Intestinal obstruction type: other intestinal obstruction Abdominal abscess Compression fracture DVT (deep venous thrombosis) I82.402 Affected thrombotic vein of extremity: unspecified vein of extremity Chronicity: acute DVT location: lower extremity Laterality: left Thrush B37.0 Lung cancer metastatic to bone C34.90; C79.51 Malnutrition E44.0 Malnutrition type: protein-calorie malnutrition Protein-calorie malnutrition severity: moderate Hyperlipidemia E78.1 Hyperlipidemia type: pure hypertriglyceridemia Hypertension I10 Hypertension type: essential hypertension COPD (chronic obstructive pulmonary disease) J44.9 COPD type: unspecified COPD Hypothyroidism E03.9 Hypothyroidism type: acquired (1) Partial bowel obstruction Intestinal obstruction type: other intestinal obstruction Qualified Code(s): K56.690 - Other partial intestinal obstruction (2) DVT (deep venous thrombosis) Affected thrombotic vein of extremity: unspecified vein of extremity Chronicity: acute DVT location: lower extremity Laterality: left Qualified Code(s): I82.402 - Acute embolism and thrombosis of unspecified deep veins of left lower extremity (3) Hyperlipidemia Hyperlipidemia type: pure hypertriglyceridemia Qualified Code(s): E78.1 - Pure hyperglyceridemia (4) Hypothyroidism Hypothyroidism type: acquired Qualified Code(s): E03.9 - Hypothyroidism, unspecified (5) Malnutrition Malnutrition type: protein-calorie malnutrition Protein-calorie malnutrition severity: moderate Qualified Code(s): E44.0 - Moderate protein-calorie malnutrition (6) COPD (chronic obstructive pulmonary disease) COPD type: unspecified COPD Qualified Code(s): J44.9 - Chronic obstructive pulmonary disease, unspecified (7) Hypertension Hypertension type: essential hypertension Qualified Code(s): I10 - Essential (primary) hypertension
[2021-03-04 13:50] LABS: Appearance Urine Turbid (Clear); Bilirubin Urine Negative (Negative); Blood Urine 3+ (Negative); Color Urine Yellow; Epithelial Cell Urine Auto >30 /lpf (0-5); Glucose Urine UA Negative (Negative); Ketones Urine Negative (Negative); Leukocyte Esterase Urine 3+ (Negative); Nitrite Urine Positive (Negative); Protein Urine 2+ (Negative); Specific Gravity Urine > 1.045 (1.000-1.030); Urobilinogen Urine Negative (Negative); WBC Urine Automated >30 /hpf (0-5)
[2021-03-04 14:17] LABS: Bacteria Urine Automated 1+ (Negative)
[2021-03-04] MEDS ORDERED: Heparin IV Adult Wt-Based Low-Dose *NO* Bolus Protocol ONE (14:33)
--- NOTE | 2021-03-04 14:45 | Surgery Consultation ---
Date of Consultation March 04, 2021 Assessment & Plan (1) Partial bowel obstruction: Few loops of mildly dilated bowel. NG tube was placed in ED, not much output yet. Continue bowel rest, IVF. Dr. Patel will be covering the weekend. No plans for any surgical procedures here, could discuss with [facility] [place] if this becomes necessary. Palliative care has been involved in the past as well. History of Present Illness History of Present Illness 80 y/o female with abdominal pain, N/V that came on over several days but peaked last night. Now in ED and being admitted for SBO. Has multiple abdominal surgeries, most recent on 01/19 at [facility] [place] she underwent an exploratory laparotomy with partial proctectomy for a leak of her rectal stump as well as takedown of a small bowel fistula with partial small bowel resection and repair of a parastomal hernia. She has pelvic abscesses, GREGG drain fell out about two weeks ago. She has been having colostomy output but persistent nausea over the past several days. Allergies Allergy/AdvReac Type Severity Reaction Status Date / Time nickel Allergy Intermediate Rash Verified 03/04/21 11:16 venlafaxine AdvReac Intermediate Hypertensio Verified 03/04/21 11:16 n,Headache clarithromycin AdvReac Mild Nausea/Vomi Verified 03/04/21 11:16 ting codeine AdvReac Mild UPSET Verified 03/04/21 11:16 STOMACH hydrocodone AdvReac Mild Nausea/Vomi Verified 03/04/21 11:16 ting metronidazole [From Flagyl] AdvReac Mild Gastrointestinal Verified 03/04/21 11:16 Upset Home Medications Medication Instructions Recorded Confirmed Type citalopram 40 mg tablet 40 mg PO QAM #90 tab 01/09/20 03/04/21 Rx aspirin 81 mg PO QAM 08/09/20 03/04/21 History diazepam 5 mg tablet See Rx Instructions PO .COMPLEX 01/31/21 03/04/21 Rx PRN #30 tab folic acid 1 mg tablet 1 mg PO QAM 02/10/21 03/04/21 History magnesium oxide 400 mg PO BID 02/10/21 03/04/21 History potassium chloride 10 mEq See Rx Instructions PO BID 02/10/21 03/04/21 History capsule,extended release torsemide 10 mg tablet 10 mg PO QAM 02/10/21 03/04/21 History fluconazole 200 mg tablet 200 mg PO Q72H PRN #5 tab 02/17/21 03/04/21 Rx metaxalone 800 mg tablet 400 - 800 mg PO TID PRN #30 tab 02/18/21 03/04/21 Rx calcitonin (salmon) 1 spray INTRANASAL (ALT) QDL 03/04/21 03/04/21 History levothyroxine [Synthroid] 100 mcg PO DAILYBB 03/04/21 03/04/21 History rivaroxaban [Xarelto] 20 mg PO HS 03/04/21 03/04/21 History Patient History Medical History Abdominal wall fistula Abnormal electrocardiogram Adenocarcinoma, lung Adrenal cortical adenoma Anxiety Arthritis Ascites Biceps tendonitis Breast cancer metastasized to bone Cataract COVID-19 virus antibody negative Depression Diverticulitis Esophageal dyskinesia Essential hypertriglyceridemia Fatigue Gastritis History of bronchitis Hyperlipidemia Hypocalcemia Hypomagnesemia Hypothyroidism Intermittent hydrarthrosis of elbow Irritable bowel syndrome Lung cancer NEW DX Metastatic bone cancer radiation treatments completed 08/25/19. Olecranon bursitis Osteoarthritis Osteopenia Pathological fracture of left hip Pelvic abscess Pneumonia hx SBO (small bowel obstruction) SBO (small bowel obstruction) Sialoadenitis Small bowel obstruction Surgical wound, non healing Wound dehiscence Wound infection Surgical History History of cataract surgery RT/LEFT History of colonoscopy Dr. Veronica 12/2011 History of dilatation and curettage History of discectomy CERVICAL (GOOD ROM) History of repair of rotator cuff RT History of tooth extraction S/P section X 1 S/P hip replacement left. 07/02/2019. SAB with MAC. no issues. Status post Patricio procedure Surgery, elective Revision of Meeks for stricture Surgery, elective 01/19/21 Partial proctectomy, takedown of enterocutaneous fistula, partial small bowel resection, repair of parastomal hernia Family History Family/Other Family history of diabetes mellitus Brother Family hx of colon cancer Mother , age 66 Diabetes Cancer ovarian Coronary heart disease had acute OR which led to her Sister Cancer Family/Other Breast cancer Father , age 49 Suicide Alcoholism Social History Smoking Status: Current every day smoker Tobacco Type: Cigarettes Age Started Using Tobacco: 21; packs per day: 0.5; Cigarettes Per Day: 10; Second Hand Exposure: No; Do You Dip or Chew Tobacco: No; Tobacco Cessation Education Requested by Patient: No Hx Alcohol Use: Yes Alcohol type: wine Hx Substance Use: Yes Last Used Substance: Unknown Last Used Substance Other:: 12/23/20 Substance Use Type Other:: medical Preferred Language: Albanian Communication Ability: Effective Visual Impairment: No Limitations Hearing Ability: Normal Cylinder Batcher Required: No Beliefs That Will Affect Care: None marital status: / Current Living Situation: Family Current Living Situation Comment: lives with grandson current occupational status: retired current occupation: worked at [employer] other: 1 daughter Feels Safe at Home: Yes Safety Concerns: Feels Safe At This Time Childhood Exposure to Second-Hand Smoke: Yes (both parents) caffeine: Yes Dental Care, Regularly: No Seatbelt Use: always Assistive Devices: Oxygen - Continuous Review of Systems Constitutional: + chills and + anorexia; no fever Gastrointestinal: + abdominal pain, + nausea and + vomiting Physical Exam Constitutional: + underweight Respiratory: normal respiratory effort Cardiovascular: Rate/Rhythm: + tachycardic Gastrointestinal (Abdomen): Inspection/Auscultation: + abdominal surgical incision (well healed); abdomen not distended Percussion/Palpation: + abdomen tender and abdomen soft colostomy has output Results & Data ([facility]) Vital Signs (Past 12 Hours) Vital Signs Temp Pulse Resp BP Pulse Ox 03/04/21 13:31 100 H 21 159/84 H 96 03/04/21 13:00 91 H 17 134/81 03/04/21 12:30 88 16 153/70 H 03/04/21 12:00 89 17 136/69 92 03/04/21 11:24 24 136/68 93 03/04/21 09:53 94 03/04/21 09:25 36.8 C 90 18 130/77 95 PG Care Time/CCT Total # of Minutes Spent Total Time Spent with Patient: Total time spent is greater than 50% in coordination of care (as documented) at patient's floor/unit and/or counseling patient: Coding Level of Care Code 57519 Initial Inpt Care Lvl 1 Diagnoses Partial bowel obstruction K56.690 Intestinal obstruction type: other intestinal obstruction (1) Partial bowel obstruction Intestinal obstruction type: other intestinal obstruction Qualified Code(s): K56.690 - Other partial intestinal obstruction
--- NOTE | 2021-03-04 15:08 | Pharmacy Report ---
Pharmacy Abx Initial Consult - Date of Service March 04, 2021 - Pharmacy Dosing Scope Date of Consult: 03/04 Consultation requested by: Dr. Borges Pharmacy is consulted to initiate gentamicin IV dosing therapy, order appropriate labs and adjust drug dose/frequency. - Subjective The patient is a 80 year old F admitted on . - Objective Height: 5 ft 3 in Weight: 48 kg Vital Signs (Past 12hrs): Vital Signs Temp Pulse Resp BP Pulse Ox 03/04/21 13:31 100 H 21 159/84 H 96 03/04/21 13:00 91 H 17 134/81 03/04/21 12:30 88 16 153/70 H 03/04/21 12:00 89 17 136/69 92 03/04/21 11:24 24 136/68 93 03/04/21 09:53 94 03/04/21 09:25 36.8 C 90 18 130/77 95 Lab Results (24hrs): Laboratory Tests (24 Hours) 03/04/21 03/04/21 09:25 09:25 WBC 7.91 Neut # (Auto) 6.11 Creatinine 0.55 L Est Cr Clr Drug Dosing 63.9 Micro Results: 03/04/21 13:30 Urine Culture - Pending Urine,Clean Catch - Risk Factors for Resistance * Hospitalization for 48 hours or more within the past 90 days * Immunocompromised (chronic steroid therapy, chemotherapy, immunomodulators) * 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 Past medical history significant for metastatic adenocarcinoma with metastases to bone, complex GI history with enterocutaneous fistulas w/ abscess, hx bowel obstructions, colitis, and chronic abdominal wound infection s/p GREGG drain placement and multiple abdominal surgeries (most recent in December @ [facility]). Abdominal abscess wound cultures recently growing a MDR pseudomonas sensitive to aminoglycosides. Double coverage for pseudomonas with gentamicin was elected in light of this. Renal function stable, pt afebrile currently. Urine culture pending. Surgery consulted. Plan Gentamicin * Patient meets criteria for extended-interval aminoglycoside dosing per the [place] nomogram * Dose: 340 mg (7 mg/kg) X 1 * Random level ordered for 6-14 hours after the start of the infusion to determine appropriate dosing interval Pharmacy will continue to follow and will adjust dose/frequency as necessary. Thank you.
[2021-03-04] MEDS: D5W AND LACTATED RINGERS 1,000 ML IV SCH (15:49)
[2021-03-04] MEDS: HEPARIN SODIUM/DEXTROSE 25,000 UNITS/500 ML BAG IV SCH (15:49)
--- NOTE | 2021-03-04 15:54 | Ultrasound Report ---
ULTRASOUND BILATERAL LOWER EXTREMITY VENOUS CLINICAL HISTORY: Follow-up venous thrombosis COMPARISON STUDY: Left lower extremity venous ultrasound dated 02/04/2021. Bilateral lower extremity ve nous ultrasound dated 03/02/2020 TECHNIQUE: Real-time, grayscale, and color Doppler sonography of the deep veins of the right and left lower extremity was performed from the inguinal crease to the calf. Compression and augmentation wer e utilized. FINDINGS: Right lower extremity: There is no sonographic evidence of deep venous thrombosis in the right lower extremity. The common femoral, superficial femoral, and popliteal veins are patent and normally compr essible. The greater saphenous vein and the profunda femoris vein at the junction with the common fem oral vein are clear. The visualized calf veins are patent. Left lower extremity: There is occlusive deep venous thrombosis within one of the duplicated left pop liteal veins. The common femoral and superficial femoral veins are patent and normally compressible. The greater saphenous vein and the profunda femoris vein at the junction with the common femoral vein are clear. The visualized calf veins are patent. IMPRESSION: 1. There is occlusive deep venous thrombosis seen within one of the duplicated left popliteal veins. This was nonocclusive on 02/04/2021. 2. The remaining deep veins of the left lower extremity are clear. 3. There is no sonographic evidence of deep venous thrombosis in the right lower extremity. ACT 112: Negative or not required by law. Electronically signed by: Jeffry Sotomayor M.D. 03/04/2021 3:52 PM
[2021-03-04] MEDS ORDERED: GENTAMICIN CONSULT ACTIVE PRN (16:18)
--- NOTE | 2021-03-04 16:26 | XRay Report ---
KUB HISTORY: NG tube placement. COMPARISON: KUB 11/15/2020. FINDINGS: The nasogastric tube terminates in the proximal stomach. The fenestrated line is located at the gastroesophageal junction. This should be advanced by approximately 5 to 10 cm. There is a left subclavian Port-A-Cath which terminates in the SVC. There is mild diffuse interstitial thickening wit hin the visualized lungs. No renal calculi. No ureteral calculi. No pneumoperitoneum or pneumatosis. IMPRESSION: The nasogastric tube terminates in the proximal stomach. The fenestrated line is located at the gastr oesophageal junction. This should be advanced by approximately 5 to 10 cm. ACT 112: Negative or not required by law. Electronically signed by: Bao Alcala M.D. 03/04/2021 4:24 PM
--- NOTE | 2021-03-04 17:59 | Billing Data ---
Date of Service March 04, 2021 Coding Level of Care Code 89655 Initial Inpt Care Lvl 3
[2021-03-04] MEDS ORDERED: HEPARIN SODIUM/DEXTROSE 25,000 UNITS/500 ML BAG IV SCH (18:03)
[2021-03-04] MEDS ORDERED: ALBUTEROL HFA 8 GM INHALER INH PRN (18:03)
[2021-03-04] MEDS ORDERED: ONDANSETRON INJ 2 MG/ML 2 ML VIAL IV STA (18:18)
--- NOTE | 2021-03-04 18:26 | XRay Report ---
XR KUB/Abdomen 1 view CLINICAL HISTORY: ng placement COMPARISON STUDY: November 15, 2020 FINDINGS: Multiple nondilated gas filled loops of bowel are seen within abdomen. Fenestrated side port and tip of the gastric tube is seen below level of the left hemidiaphragm. Contrast opacified structure within left hemiabdomen most likely representing dilated left renal pelv is and left ureter. Severe vascular calcifications are seen. Osseous structures are diffusely demineralized. Prosthetic left hip joint is seen. IMPRESSION: 1. Tip of fenestrated side port of the gastric tube are seen below level hemidiaphragm. 2. Opacified, possibly dilated left renal pelvis and left ureter. Please correlate above-mentioned f indings with results of CT of abdomen and pelvis performed on March 04, 2021 at 10:49 hours. ACT 112: Negative or not required by law. The above report was generated using voice recognition software. It may contain grammatical, syntax o r spelling errors. Electronically signed by: Mary Jo Elnea DO 03/04/2021 6:24 PM
[2021-03-04] MEDS: HYDROmorphone INJ 0.5 MG/0.5 ML SYR IV PRN ×2 (19:38→23:29)
[2021-03-04] MEDS: FLUCONAZOLE 200 MG/100 ML BAG IV SCH (19:39)
[2021-03-04] MEDS: PIPERACILLIN/TAZOBACTAM 4.5 GM in DEXTROSE 5% 100 ML IV SCH (19:40)
[2021-03-04 22:56] LABS: Partial Thromboplastin Ratio 1.6; Partial Thromboplastin Time 42.4 Seconds (21.0-31.0)
[2021-03-05] MEDS: PIPERACILLIN/TAZOBACTAM 4.5 GM in DEXTROSE 5% 100 ML IV SCH ×3 (03:29→18:01)
[2021-03-05] MEDS: D5W AND LACTATED RINGERS 1,000 ML IV SCH ×2 (03:29→22:00)
[2021-03-05] MEDS: HYDROmorphone INJ 0.5 MG/0.5 ML SYR IV PRN ×5 (03:37→21:59)
[2021-03-05 05:43] LABS: Mean Corpuscular Hgb Conc 31.8 g/dL (32-36); Mean Platelet Volume 9.8 fL (7.4-10.4); Platelet Count 194 K/uL (130-400)
[2021-03-05 05:53] LABS: Partial Thromboplastin Ratio 1.5; Partial Thromboplastin Time 40.4 Seconds (21.0-31.0)
[2021-03-05 06:17] LABS: BUN Creatinine Ratio 13.1 (10-20); Calcium 7.8 mg/dl (8.5-10.1); Creatinine Clr Calc Pharmacy 52.7 ml/min; Est GFR (African American) 97.6 ml/min; Est GFR (Non-African American) 84.2 ml/min
[2021-03-05 06:30] LABS: Basophils # (auto) 0.01 K/uL (0-0.2); Basophils % (auto) 0.2 %; Eosinophils # (auto) 0.34 K/uL (0-0.5); Eosinophils % (auto) 5.2 %; Hematocrit (blood only) 30.8 % (37-47); Hemoglobin 9.8 g/dL (12.0-16.0); Immature Granulocytes # (auto) 0.02 K/uL (0.00-0.02); Immature Granulocytes % (auto) 0.3 %; Lymphocytes # (auto) 0.57 K/uL (1.2-3.4); Lymphocytes % (auto) 8.8 %; Mean Corpuscular Hemoglobin 29.7 pg (25-34); Mean Corpuscular Volume 93.3 fL (80-100); Monocytes % (auto) 16.9 %; Neutrophils # (auto) 4.47 K/uL (1.4-6.5); Neutrophils % (auto) 68.6 %; RDW Coefficient of Variation 15.6 % (11.5-14.5); RDW Standard Deviation 53.2 fL (36.4-46.3); White Blood Count 6.51 K/uL (4.8-10.8)
[2021-03-05 07:49] LABS: Magnesium 1.1 mg/dl (1.8-2.4); Potassium 2.8 mmol/L (3.5-5.1)
--- NOTE | 2021-03-05 08:14 | Pharmacy Report ---
Pharmacy Abx Dose Progress Nt - Date of Service March 05, 2021 - Pharmacy Dosing Scope The patient is currently receiving the following antimicrobial agents per Pharmacy consult: gentamicin and zosyn 4.5gm IV q8h - Objective Vital Signs (Past 12hrs): Vital Signs Temp Pulse Pulse Resp BP Pulse Ox 03/05/21 07:28 36.5 C 80 16 133/69 93 03/05/21 04:00 36.8 C 81 16 136/76 95 03/04/21 23:37 75 03/04/21 23:14 36.9 C 79 18 138/71 94 Lab Results (24hrs): Laboratory Tests (24 Hours) 03/05/21 03/05/21 03/05/21 05:15 05:15 05:15 WBC 6.51 Neut # (Auto) 4.47 Creatinine 0.67 Est Cr Clr Drug Dosing 52.7 Procalcitonin < 0.05 Random Gentamicin 03/04/21 03/04/21 03/04/21 22:15 09:25 09:25 WBC 7.91 Neut # (Auto) 6.11 Creatinine 0.55 L Est Cr Clr Drug Dosing 63.9 Procalcitonin Random Gentamicin 6.40 Micro Results: 03/04/21 13:30 Urine Culture - Pending Urine,Clean Catch - Risk Factors for Resistance * Hospitalization for 48 hours or more within the past 90 days * History of infection with a multidrug-resistant organism * Antimicrobial use within the last 90 days - Assessment & Plan Assessment 80 year old F initiated on gentamicin and zosyn therapy for coverage of intra- abdominal abscesses. Renal function stable, pt afebrile, PCT <0.05. Urine culture pending. Pt received gentamicin 7mg/kg IV X 1 as she met criteria for extended interval dosing per the [place] Nomogram. Random level obtain yesterday evening and was ~8.5hr level. Day # 2 of antimicrobial therapy Plan Piperacillin/tazobactam * Continue 4.5 g IV extended infusion every 8 hours for CrCl greater than 20 mL/min Gentamicin * Patient meets criteria for extended-interval aminoglycoside dosing per the [place] nomogram * Random level of 6.4mcg/ml drawn ~8.5 hours after start of infusion indicates a dosing interval of every 36 hours. * Initiate 340 mg (7 mg/kg) every 36 hours. * Will obtain random level within 5 days or sooner if renal function changes Pharmacy will continue to follow and will adjust dose/frequency as necessary. Thank you.
[2021-03-05] MEDS: MAGNESIUM SULFATE / D5W 1 GM/100 ML BAG IV SCH ×3 (10:36→14:37)
[2021-03-05] MEDS: POTASSIUM CHLORIDE / WTR 10 MEQ/100 ML PLCT IV SCH ×6 (10:36→16:18)
[2021-03-05] MEDS: CALCITONIN SALMON NA 200 IU/AC 3.7 ML BTL SCH (11:59)
[2021-03-05 12:22] LABS: Partial Thromboplastin Ratio 1.9
[2021-03-05 12:55] LABS: Partial Thromboplastin Time 50.6 Seconds (21.0-31.0)
--- NOTE | 2021-03-05 13:41 | Surgery Progress Note ---
Date of Service March 05, 2021 Assessment & Plan (1) Partial bowel obstruction: Patient with minimal NGT output. + ostomy functioning Will d/c NGT and start on sips/ice Continue on IV abx. WBC 6.5 Potassium repletion for K 2.8 Pt seen and examined with Dr. Patel Admission and Anticipated Discharge Date Admission Date: March 04, 2021 Supervising Physician Co-Signing Physician Notes ok to remove ng tube and start liquids Subjective Patient says she is thirsty. Offering no other complaints. Physical Exam Physical Exam: awake Constitutional: no acute distress Gastrointestinal (Abdomen): Inspection/Auscultation: abdomen not distended Percussion/Palpation: abdomen soft NGT with clear drainage + ostomy output Results & Data ([facility]) Vital Signs (Past 12 Hours) Vital Signs Temp Pulse Pulse Resp BP Pulse Ox Pulse Ox 03/05/21 11:12 36.4 C L 77 17 126/70 93 03/05/21 09:40 95 03/05/21 08:00 76 03/05/21 07:28 36.5 C 80 16 133/69 93 03/05/21 04:00 36.8 C 81 16 136/76 95 PG Care Time/CCT Total # of Minutes Spent Total Time Spent with Patient: Total time spent is greater than 50% in coordination of care (as documented) at patient's floor/unit and/or counseling patient: Coding Level of Care Code 67645 Subseq Hosp Care Lvl 1 Diagnoses Partial bowel obstruction K56.690 Intestinal obstruction type: other intestinal obstruction (1) Partial bowel obstruction Intestinal obstruction type: other intestinal obstruction Qualified Code(s): K56.690 - Other partial intestinal obstruction
[2021-03-05] MEDS: ONDANSETRON INJ 2 MG/ML 2 ML VIAL IV PRN ×2 (17:18→23:17)
[2021-03-05] MEDS: FLUCONAZOLE 200 MG/100 ML BAG IV SCH (18:00)
--- NOTE | 2021-03-05 18:05 | Hospitalist Progress Note ---
Date of Service March 05, 2021 Assessment & Plan (1) Partial bowel obstruction: Likely secondary to adhesions and intrapelvic abscesses Now much improved and NG tube has been removed KUB improved Surgery following-advance diet to clear liquids Continue IVF hydration and antiemetics - Follow with KUB in the morning - Hopeful that patient will respond to conservative treatment measures- chart review from past reviews patient and daughter have declined further surgical options. -Discussions were had with the daughter Aydee in regards to previous palliative care/hospice. As far as the abscess and fluid collection in her abdomen they did not wish to pursue further drainage of these, however if a life-threatening obstruction or perforation were to occur, she would defer to her mother's decision as she is still able to do so. (2) Abdominal abscess: Continue double coverage with Zosyn and Gentamicin for history of Pseudomonas - Both which could be transitioned to outpatient if needed - Follow Gent levels and renal function - Pharmacy consult appreciated (3) Compression fracture: Dilaudid 2.5 mg IV q4 and Valium 2.5 mg IV for pain - chronic use at home monitor for withdraw as well as for pain control (4) DVT (deep venous thrombosis): - bilateral ultrasound confirms left occlusive DVT in the left popliteal vein-was previously nonocclusive -Continue Heparin drip while NPO and transition back to Xarelto when able to take p.o. (5) Thrush: Chronic that gets worse when patient is on antibiotics-has some on her tongue today -Continue fluconazole 200mg IV daily (6) Lung cancer metastatic to bone: No further chemotherapy planned as she obviously could not tolerate that with ongoing infection (7) Malnutrition: with abdominal infections and NPO at this time- unable to advance any supplementation - Continue to address if clinical course changes (8) Hyperlipidemia: Stable (9) Hypertension: No acute needs, follow while NPO additional therapy if SBP >180 - torsemide on hold (10) COPD (chronic obstructive pulmonary disease): No acute need, not on oxygen - Albuterol as needed (11) Hypothyroidism: Synthroid 100mcg as outpatient PO - Converted to 50% IV -- 50mcg IV - TSH here is normal at 0.8 (12) Anemia: Hemoglobin 9.8 fairly stable from previous, likely of chronic disease Follow CBC (13) Hypokalemia: Potassium low at 2.8 Replaced with 6 0 mEq of potassium chloride IV Replace magnesium (14) Hypomagnesemia: Severely low, likely secondary to poor p.o. intake Replace with 3 g of IV magnesium sulfate Disposition-continued stay in PCU Admission and Anticipated Discharge Date Admission Date: March 04, 2021 Subjective Patient having some nausea with having clear liquids but no abdominal pain. No vomiting. No chest pain or shortness of breath. Her daughters ask about her pericardial effusion on CT scan. Telemetry with normal sinus rhythm with rates in the 70s, 2-second burst of atrial tachycardia Review of Systems Review of Systems: All systems reviewed & are unremarkable except as noted in HPI & below Physical Exam Constitutional: + thin and + frail appearing Eyes: + anicteric sclerae ENMT: Mouth: + tongue abnormality (White exudate) Neck: trachea midline, no thyromegaly Respiratory: normal respiratory effort, lungs clear to auscultation Cardiovascular: RRR, no murmur, no edema Chest (Breasts): Chest: normal inspection of chest Gastrointestinal (Abdomen): Inspection/Auscultation: + abdomen abnormal to inspection (Colostomy bag in place with gas and orange stool) Percussion/Palpation: abdomen soft; abdomen nontender and no guarding Musculoskeletal: Extremities: extremities normal to inspection; no cyanosis and no clubbing Skin: no rashes, warm and dry Neurologic: moves all extremities and awake; no focal motor deficits Psychiatric: A+Ox3, euthymic affect Lymphatic: no lymphedema Results & Data Results & Data ([facility]) Vital Signs (Past 12 Hours) Vital Signs Temp Pulse Pulse Resp BP Pulse Ox Pulse Ox 03/05/21 15:04 36.4 C L 77 17 108/64 94 03/05/21 11:12 36.4 C L 77 17 126/70 93 03/05/21 09:40 95 03/05/21 08:00 76 03/05/21 07:28 36.5 C 80 16 133/69 93 PG Care Time/CCT Total # of Minutes Spent Total Time Spent with Patient: Total time spent is greater than 50% in coordination of care (as documented) at patient's floor/unit and/or counseling patient: Coding Level of Care Code 34229 Subseq Hosp Care Lvl 3 Diagnoses Partial bowel obstruction K56.690 Intestinal obstruction type: other intestinal obstruction Abdominal abscess Compression fracture DVT (deep venous thrombosis) I82.402 Affected thrombotic vein of extremity: unspecified vein of extremity Chronicity: acute DVT location: lower extremity Laterality: left Thrush B37.0 Lung cancer metastatic to bone C34.90; C79.51 Malnutrition E44.0 Malnutrition type: protein-calorie malnutrition Protein-calorie malnutrition severity: moderate Hyperlipidemia E78.1 Hyperlipidemia type: pure hypertriglyceridemia Hypertension I10 Hypertension type: essential hypertension COPD (chronic obstructive pulmonary disease) J44.9 COPD type: unspecified COPD Hypothyroidism E03.9 Hypothyroidism type: acquired Anemia D64.9 Anemia type: unspecified type Hypokalemia E87.6 Hypomagnesemia E83.42 (1) Partial bowel obstruction Intestinal obstruction type: other intestinal obstruction Qualified Code(s): K56.690 - Other partial intestinal obstruction (2) DVT (deep venous thrombosis) Affected thrombotic vein of extremity: unspecified vein of extremity Chronicity: acute DVT location: lower extremity Laterality: left Qualified Code(s): I82.402 - Acute embolism and thrombosis of unspecified deep veins of left lower extremity (3) Hyperlipidemia Hyperlipidemia type: pure hypertriglyceridemia Qualified Code(s): E78.1 - Pure hyperglyceridemia (4) Hypothyroidism Hypothyroidism type: acquired Qualified Code(s): E03.9 - Hypothyroidism, unspecified (5) Malnutrition Malnutrition type: protein-calorie malnutrition Protein-calorie malnutrition severity: moderate Qualified Code(s): E44.0 - Moderate protein-calorie malnutrition (6) COPD (chronic obstructive pulmonary disease) COPD type: unspecified COPD Qualified Code(s): J44.9 - Chronic obstructive pulmonary disease, unspecified (7) Hypertension Hypertension type: essential hypertension Qualified Code(s): I10 - Essential (primary) hypertension (8) Anemia Anemia type: unspecified type Qualified Code(s): D64.9 - Anemia, unspecified
--- NOTE | 2021-03-05 18:48 | XRay Report ---
KUB HISTORY: Small bowel obstruction. Follow-up. COMPARISON: KUB 03/04/2021. FINDINGS: The nasogastric tube is been removed. No dilated loops of bowel identified to suggest an ob struction. Left lower quadrant ostomy site is again noted. There is a left hip hemiarthroplasty. Vasc ular calcifications are noted. No renal calculi. No ureteral calculi. No pneumoperitoneum or pneumat osis. IMPRESSION: Interval improvement/resolution of the dilated loops of small bowel compared to the prior study. ACT 112: Negative or not required by law. Electronically signed by: Bao Alcala M.D. 03/05/2021 6:47 PM
[2021-03-05] MEDS: HEPARIN SODIUM/DEXTROSE 25,000 UNITS/500 ML BAG IV SCH (22:00)
[2021-03-06] MEDS ORDERED: PROMETHAZINE HCL 12.5 MG in SODIUM CHLORIDE 0.9% 50 ML IV STA ×2 (01:59→20:57)
[2021-03-06] MEDS ORDERED: GENTAMICIN SULFATE 340 MG in DEXTROSE 5% 100 ML IV SCH (02:00)
[2021-03-06] MEDS: PIPERACILLIN/TAZOBACTAM 4.5 GM in DEXTROSE 5% 100 ML IV SCH (02:33)
[2021-03-06] MEDS: HYDROmorphone INJ 0.5 MG/0.5 ML SYR IV PRN ×3 (06:00→17:23)
[2021-03-06 06:16] LABS: Basophils # (auto) 0.02 K/uL (0-0.2); Basophils % (auto) 0.4 %; Eosinophils # (auto) 0.87 K/uL (0-0.5); Eosinophils % (auto) 19.1 %; Hematocrit (blood only) 30.7 % (37-47); Hemoglobin 9.5 g/dL (12.0-16.0); Immature Granulocytes # (auto) 0.01 K/uL (0.00-0.02); Immature Granulocytes % (auto) 0.2 %; Lymphocytes # (auto) 0.55 K/uL (1.2-3.4); Lymphocytes % (auto) 12.1 %; Mean Corpuscular Hemoglobin 28.6 pg (25-34); Mean Corpuscular Hgb Conc 30.9 g/dL (32-36); Mean Corpuscular Volume 92.5 fL (80-100); Mean Platelet Volume 9.2 fL (7.4-10.4); Monocytes # (auto) 0.61 K/uL (0.11-0.59); Monocytes % (auto) 13.4 %; Neutrophils # (auto) 2.49 K/uL (1.4-6.5); Neutrophils % (auto) 54.8 %; Nucleated RBC # (auto) 0.04 K/uL (0-0); Nucleated RBC % (auto) 0.9 %; Platelet Count 149 K/uL (130-400); RDW Coefficient of Variation 15.5 % (11.5-14.5); RDW Standard Deviation 53.1 fL (36.4-46.3); Red Blood Count 3.32 M/uL (4.2-5.4); White Blood Count 4.55 K/uL (4.8-10.8)
[2021-03-06 06:38] LABS: Partial Thromboplastin Ratio 2.5
[2021-03-06 06:41] LABS: Partial Thromboplastin Time 65.7 Seconds (21.0-31.0)
[2021-03-06 06:51] LABS: Calcium 7.3 mg/dl (8.5-10.1); Creatinine Clr Calc Pharmacy 59.6 ml/min; Est GFR (African American) 100.6 ml/min; Est GFR (Non-African American) 86.8 ml/min; Magnesium 1.8 mg/dl (1.8-2.4); Phosphorus 2.4 mg/dl (2.5-4.9); Potassium 3.2 mmol/L (3.5-5.1)
[2021-03-06] MEDS ORDERED: POTASSIUM PHOS 3 MMOL/1 ML INFUSION IV STA (07:53)
[2021-03-06] MEDS ORDERED: POTASSIUM PHOSPHATE 21 MMOL in SODIUM CHLORIDE 0.9% 500 ML IV ONE (08:30)
[2021-03-06] MEDS ORDERED: MAGNESIUM SULFATE / D5W 1 GM/100 ML BAG IV ONE (08:30)
[2021-03-06] MEDS: ONDANSETRON INJ 2 MG/ML 2 ML VIAL IV PRN ×2 (08:35→16:24)
[2021-03-06] MEDS ORDERED: LEVOTHYROXINE SODIUM 50 MCG in SYRINGE 0 ML IV SCH (09:00)
--- NOTE | 2021-03-06 09:04 | XCELERA ---
[id number]
--- NOTE | 2021-03-06 09:07 | Surgery Progress Note ---
Date of Service March 06, 2021 Assessment & Plan (1) Partial bowel obstruction: improved can have full liquids K+ 3.[address] Patel Admission and Anticipated Discharge Date Admission Date: March 04, 2021 Supervising Physician Co-Signing Physician Notes Tolerated liquid diet well colostomy working well advance diet Subjective tolerating clears, having output from stoma Physical Exam Gastrointestinal (Abdomen): Percussion/Palpation: abdomen soft Results & Data ([facility]) Vital Signs (Past 12 Hours) Vital Signs Temp Pulse Pulse Resp BP Pulse Ox Pulse Ox 03/06/21 08:44 93 03/06/21 08:40 62 03/06/21 08:10 36.7 C 79 18 135/64 93 03/06/21 03:00 36.9 C 71 16 107/52 L 93 03/05/21 23:42 36.7 C 75 16 113/67 95 03/05/21 23:29 79 PG Care Time/CCT Total # of Minutes Spent Total Time Spent with Patient: Total time spent is greater than 50% in coordination of care (as documented) at patient's floor/unit and/or counseling patient: Coding Level of Care Code 45787 Subseq Hosp Care Lvl 1 Diagnoses Partial bowel obstruction K56.690 Intestinal obstruction type: other intestinal obstruction (1) Partial bowel obstruction Intestinal obstruction type: other intestinal obstruction Qualified Code(s): K56.690 - Other partial intestinal obstruction
--- NOTE | 2021-03-06 09:48 | XRay Report ---
KUB CLINICAL HISTORY: f/o SBO COMPARISON STUDY: CT of the abdomen and pelvis March 04, 2021. KUB March 05, 2021. FINDINGS: Left lower quadrant ostomy is noted. Left hip arthroplasty is partially imaged. A loop of m ildly dilated small bowel within left abdomen measures 3.5 cm in caliber. There is gas within the col on. IMPRESSION: Single loop of mildly dilated small bowel within the left mid abdomen. Although not high ly suggestive, a partial small bowel obstruction cannot be excluded. ACT 112: Negative or not required by law. Electronically signed by: Александр Garay M.D. 03/06/2021 9:46 AM
[2021-03-06] MEDS: CALCITONIN SALMON NA 200 IU/AC 3.7 ML BTL SCH (11:42)
--- NOTE | 2021-03-06 14:28 | Palliative Care Consultation ---
Date of Consultation March 06, 2021 Assessment & Plan (1) Back pain: Currently controlled with IV hydromorphone. We discussed plan for controlling her pain after discharge. She does not feel that oxycodone was effective. Would consider po hydromorphone for discharge. Monitor IV use for conversion to po regimen. (2) Palliative care encounter: I spoke with Aydee about what her understanding is of her illness. She understands that she is approaching her dying time. She says that she is not ready to . When I asked her to talk about that further, she tells me that she wants be able to spend time with her family. She denies fear of dying and believes that she will just fall asleep and that will be the end. She does worry about her family after she is gone. When I asked her what she would want her dying time to look like, she told me that she would want to be a home, comfortable, with her family around her. We talked about the discrepancy between what she is describing and code status as full code. We discussed the likelihood that if she needed resuscitation, the likelihood of an outcome that would allow her to be at home peacefully with her family was nearly zero. This would not necessarily mean that she would not continue medical treatment but would only apply for cardiopulmonary arrest. We talked about her understanding that she is approaching her dying time and what she would want that time to be like. She is uncertain about how she would like to proceed and wants to talk with her daughter Aydee, before making a decision. Aydee has been very supportive of Aydee's decisions. I asked her if she would like me to call Aydee and she told me that she would prefer to talk with her first. Palliative care will follow. (3) Lung cancer metastatic to bone: (4) Partial bowel obstruction: Intestinal obstruction type: other intestinal obstruction Qualified Code(s): K56.690 - Other partial intestinal obstruction History of Present Illness Reason for Consultation: goals of care Requesting Physician: KAYY Lopez Attending Physician: Gabrielle Moon MD History of Present Illness 80 yo lady with adenocarcinoma of the lung originally diagnosed in June of 2019. She has bone metastases and presented in 2019 with a pathologic hip fracture. She is know to have multiple lumbar vertebral fractures. She has been having pain in her back that is severe at times. She had been taking oxycodone at home but feels that it wasn't working. She is getting IV hydromorphone her which she feels is more effective. She had been receiving chemotherapy with permetrexed and pembrolizumab and was followed by [facility]. On last admission, she had indicated that she wanted to pursue a comfort directed approach and was discharged home on hospice. She subsequently revoked hospice at home, deciding that she was not ready for that. She also has a complicated history with chronic abdominal wound and abscess. She had a colostomy in October of 2019 with a revision in March of that year due to small bowel obstruction. She was discharged from [facility] [place] after surgery on 01/21/21 for ly sis of adhesions, abscess drainage, small bowel resection and partial proctectomy. She was admitted to [facility] with persistent nausea and poor po intake and found to have partial bowel obstruction which has been improving with conservative treatment. She does report having an appetite and is eating a clear liquid diet. She denies abdominal pain or nausea at this time but does have some low back pain at rest. Allergies Allergy/AdvReac Type Severity Reaction Status Date / Time nickel Allergy Intermediate Rash Verified 03/04/21 11:16 venlafaxine AdvReac Intermediate Hypertensio Verified 03/04/21 11:16 n,Headache clarithromycin AdvReac Mild Nausea/Vomi Verified 03/04/21 11:16 ting codeine AdvReac Mild UPSET Verified 03/04/21 11:16 STOMACH hydrocodone AdvReac Mild Nausea/Vomi Verified 03/04/21 11:16 ting metronidazole [From Flagyl] AdvReac Mild Gastrointestinal Verified 03/04/21 11:16 Upset Home Medications Medication Instructions Recorded Confirmed Type citalopram 40 mg tablet 40 mg PO QAM #90 tab 01/09/20 03/04/21 Rx aspirin 81 mg PO QAM 08/09/20 03/04/21 History diazepam 5 mg tablet See Rx Instructions PO .COMPLEX 01/31/21 03/04/21 Rx PRN #30 tab folic acid 1 mg tablet 1 mg PO QAM 02/10/21 03/04/21 History magnesium oxide 400 mg PO BID 02/10/21 03/04/21 History potassium chloride 10 mEq See Rx Instructions PO BID 02/10/21 03/04/21 History capsule,extended release torsemide 10 mg tablet 10 mg PO QAM 02/10/21 03/04/21 History fluconazole 200 mg tablet 200 mg PO Q72H PRN #5 tab 02/17/21 03/04/21 Rx metaxalone 800 mg tablet 400 - 800 mg PO TID PRN #30 tab 02/18/21 03/04/21 Rx calcitonin (salmon) 1 spray INTRANASAL (ALT) QDL 03/04/21 03/04/21 History levothyroxine [Synthroid] 100 mcg PO DAILYBB 03/04/21 03/04/21 History rivaroxaban [Xarelto] 20 mg PO HS 03/04/21 03/04/21 History Patient History Medical History Abdominal wall fistula Abnormal electrocardiogram Adenocarcinoma, lung Adrenal cortical adenoma Anxiety Arthritis Ascites Biceps tendonitis Breast cancer metastasized to bone Cataract COVID-19 virus antibody negative Depression Diverticulitis Esophageal dyskinesia Essential hypertriglyceridemia Fatigue Gastritis History of bronchitis Hyperlipidemia Hypocalcemia Hypomagnesemia Hypothyroidism Intermittent hydrarthrosis of elbow Irritable bowel syndrome Lung cancer NEW DX Metastatic bone cancer radiation treatments completed 08/25/19. Olecranon bursitis Osteoarthritis Osteopenia Pathological fracture of left hip Pelvic abscess Pneumonia hx SBO (small bowel obstruction) SBO (small bowel obstruction) Sialoadenitis Small bowel obstruction Surgical wound, non healing Wound dehiscence Wound infection Surgical History History of cataract surgery RT/LEFT History of colonoscopy Dr. Veronica 12/2011 History of dilatation and curettage History of discectomy CERVICAL (GOOD ROM) History of repair of rotator cuff RT History of tooth extraction S/P section X 1 S/P hip replacement left. 07/02/2019. SAB with MAC. no issues. Status post Patricio procedure Surgery, elective Revision of [place] for stricture Surgery, elective 01/19/21 Partial proctectomy, takedown of enterocutaneous fistula, partial small bowel resection, repair of parastomal hernia Family History Family/Other Family history of diabetes mellitus Brother Family hx of colon cancer Mother , age 66 Diabetes Cancer ovarian Coronary heart disease had acute [place] which led to her Sister Cancer Family/Other Breast cancer Father , age 49 Suicide Alcoholism Social History Smoking Status: Current every day smoker Tobacco Type: Cigarettes Age Started Using Tobacco: 21; packs per day: 0.5; Cigarettes Per Day: 10; Second Hand Exposure: No; Do You Dip or Chew Tobacco: No; Tobacco Cessation Education Requested by Patient: No Hx Alcohol Use: Yes Alcohol type: wine Hx Substance Use: Yes Last Used Substance: Unknown Last Used Substance Other:: 12/23/20 Substance Use Type Other:: medical Preferred Language: Paraguayan Communication Ability: Effective Visual Impairment: No Limitations Hearing Ability: Normal Multifocal Button Grinder Required: No Beliefs That Will Affect Care: None marital status: / Current Living Situation: Family Current Living Situation Comment: lives with grandson current occupational status: retired current occupation: worked at [employer] other: 1 daughter Feels Safe at Home: Yes Safety Concerns: Feels Safe At This Time Childhood Exposure to Second-Hand Smoke: Yes (both parents) caffeine: Yes Dental Care, Regularly: No Seatbelt Use: always Assistive Devices: Walker Review of Systems Review of Systems: [place] Symptom Assessment Score Pain 1/3 Dyspnea 0/3 Nausea 0/3 Anxiety 1/3 Fatigue 2/3 Drowsiness 0/3 Palliative Performance Score 30% Physical Exam Constitutional: + ill appearing; no acute distress Respiratory: normal respiratory effort; no labored breathing Musculoskeletal: Extremities: extremities normal to inspection Skin: warm and dry Neurologic: awake; not confused Results & Data ([facility]) Vital Signs (Past 12 Hours) Vital Signs Temp Pulse Pulse Resp BP Pulse Ox Pulse Ox 03/06/21 12:10 98.1 F 68 18 138/77 94 03/06/21 08:44 93 03/06/21 08:40 62 03/06/21 08:10 98.1 F 79 18 135/64 93 03/06/21 03:00 98.4 F 71 16 107/52 L 93 PG Care Time/CCT Total # of Minutes Spent Total Time Spent with Patient: Total time spent is greater than 50% in coordination of care (as documented) at patient's floor/unit and/or counseling patient: total time spent 65 minutes with more than 50% of time spent on symptom management, CPR, code status, goals of care. Coding Level of Care Code 51314 Inpt Consult Level 3 Diagnoses Back pain M54.9 Palliative care encounter Z51.5 Lung cancer metastatic to bone C34.90; C79.51 Partial bowel obstruction K56.690 Intestinal obstruction type: other intestinal obstruction
[2021-03-06] MEDS: D5W AND LACTATED RINGERS 1,000 ML IV SCH (14:49)
[2021-03-06] MEDS ORDERED: diazePAM 5 MG TABLET PO PRN (15:17)
--- NOTE | 2021-03-06 15:21 | Hospitalist Progress Note ---
Date of Service March 06, 2021 Assessment & Plan (1) Partial bowel obstruction: Likely secondary to adhesions and intrapelvic abscesses Now much improved and NG tube has been removed, is tolerating full liquids KUB improved but still with 1 mild dilated loop of bowel Had some nausea which may be related to IV Dilaudid use-advised to cut down on IV Dilaudid Surgery following-advanced diet to full liquids on 03/06 Continue IVF hydration but decrease rate to 50 mL/h and continue antiemetics as needed - Follow with KUB in the morning - Hopeful that patient will respond to conservative treatment measures- chart review from past reviews patient and daughter have declined further surgical options. -Discussions were had with the daughter Aydee in regards to previous palliative care/hospice. As far as the abscess and fluid collection in her abdomen they did not wish to pursue further drainage of these, however if a life-threatening obstruction or perforation were to occur, she would defer to her mother's decision as she is still able to do so. (2) Abdominal abscess: Initially started on Zosyn as broad coverage for pelvic abscesses and Gentamicin for history of Pseudomonas, however will revert back to Avycaz which is what she has been on at home-this will cover for previous Pseudomonas and the Pseudomonas growing in her urine -Start Avycaz 2.5 g IV every 8 hours and will continue for at least 3 more weeks to make a total of 6 weeks treatment as she still has pelvic abscesses present on CT scan -Will need repeat imaging in a few weeks and should follow-up with surgery as an outpatient (3) Compression fracture: Encouraged her to stop using IV Dilaudid and instead will revert back to home dosing -Start oxycodone 10 mg p.o. 3 times daily scheduled and use IV Dilaudid only as needed breakthrough pain -Restart home Skelaxin as a muscle relaxer which really helps her as well (4) DVT (deep venous thrombosis): - bilateral ultrasound confirms left occlusive DVT in the left popliteal vein-was previously nonocclusive -Continue Heparin drip which was started while she was n.p.o. with partial small bowel obstruction and transition back to Xarelto when able to take regular diet- perhaps on Sunday Will need total of 3 months of anticoagulation at treatment dose, but given metastatic cancer, should remain on prophylactic daily dose of Xarelto (5) Thrush: Chronic that gets worse when patient is on antibiotics-has some on her tongue -Continue fluconazole 200mg IV daily while inpatient (6) Lung cancer metastatic to bone: No further chemotherapy planned as she obviously could not tolerate that with ongoing infection (7) Malnutrition: With severe protein calorie malnutrition With 18 pound weight loss in the last 1.5 months, moderate loss of muscle mass in the clavicle bone region, pressure injury on the sacrum With abdominal infections frequently and small bowel obstructions, has had poor p.o. intake over the last few months Dietary consult appreciated-recommends advancing diet as tolerated to low fiber and now that on full liquids, can take CBE twice daily and add on a chewable multivitamin (8) Hypertension: No acute needs - torsemide on hold (9) COPD (chronic obstructive pulmonary disease): No acute need, not on oxygen - Albuterol as needed (10) Hypothyroidism: Synthroid 100mcg as outpatient PO - TSH here is normal at 0.8 Discontinue IV levothyroxine as she is now taking p.o. and restart home p.o. levothyroxine (11) Anemia: Hemoglobin 9.5 and fairly stable from previous, likely of chronic disease Follow CBC (12) Hypokalemia: Potassium low again today but improved from previous Replace again with IV and p.o. potassium chloride Replace magnesium (13) Hypomagnesemia: Severely low upon admission and now improved after replaced Follow magnesium level in the morning Disposition-continued stay but can downgrade to medical floor Palliative care consultation appreciated, however after that consultation, I had a lengthy discussion with the patient and her daughter. Patient definitely wants to be a DNR/DNI, but wants to continue treatment otherwise as above with IV antibiotics, trial of limited interventions and trial of artificial feeds and hydration if needed. We filled out a POLST form together and I gave them the original copy to take home. She is not ready to enroll in hospice yet but will let us know when she is. She understands that her overall condition has a guarded prognosis, but feels her quality of life is okay at this time. (14) UTI (urinary tract infection): Admission and Anticipated Discharge Date Admission Date: March 04, 2021 Subjective Patient reports feeling much better today. She had quite a bit of nausea through the night but that is now resolved after receiving a dose of promethazine last night. She is also been taking IV Dilaudid fairly frequently for her back pain and this may be making her nauseated. She is tolerating a full liquids diet when I saw her. She has output from her ostomy bag. Her daughter reports that at home for pain, the patient has done well with oxycodone 10 mg at 6 AM, noon, and 6 PM. She even had better pain control with adding Skelaxin as a muscle relaxer. Her daughter is at the bedside. We had a lengthy discussion about goals of care and CODE STATUS. The patient is adamant that she be changed to a DNR/DNI which is what she reports she is always wanted. Apparently there was a miscommunication in the past between her and the palliative care physician which we have since resolved. She does however want to continue with IV antibiotics, limited interventions, also focus on pain control for her spine pain, and she would be interested in a trial of artificial feeds and fluids if needed in the future. The patient at this point still wants to continue returning to the hospital for care if needed but not if she is critically ill and requiring ICU stay or intubation. We filled out a POLST form together with her daughter in agreement with decisions. Telemetry with sinus bradycardia normal sinus rhythm with rates in the 50s to 70s. Review of Systems Review of Systems: All systems reviewed & are unremarkable except as noted in HPI & below She was having dysuria upon admission which is now improved. Physical Exam Constitutional: + thin and + frail appearing Eyes: + anicteric sclerae ENMT: Mouth: + tongue abnormality (White exudate) Neck: trachea midline, no thyromegaly Respiratory: normal respiratory effort, lungs clear to auscultation (With a few scattered rhonchi) Cardiovascular: RRR, no murmur, no edema Chest (Breasts): Chest: normal inspection of chest Gastrointestinal (Abdomen): Inspection/Auscultation: + abdomen abnormal to inspection (Colostomy bag in place with gas and orange stool) Percuss ion/Palpation: abdomen soft; abdomen nontender and no guarding Musculoskeletal: Extremities: extremities normal to inspection; no cyanosis and no clubbing Skin: no rashes, warm and dry Neurologic: moves all extremities and awake; no focal motor deficits Psychiatric: A+Ox3, euthymic affect Lymphatic: no lymphedema Results & Data Results & Data ([facility]) Vital Signs (Past 12 Hours) Vital Signs Temp Pulse Pulse Resp BP BP Pulse Ox 03/06/21 15:19 36.5 C 74 18 136/72 96 03/06/21 12:10 36.7 C 68 18 138/77 94 03/06/21 08:44 03/06/21 08:40 62 03/06/21 08:10 36.7 C 79 18 135/64 93 Pulse Ox 03/06/21 15:19 03/06/21 12:10 03/06/21 08:44 93 03/06/21 08:40 03/06/21 08:10 Laboratory Results 03/06/21 03/06/21 03/06/21 Range/Units 06:01 06:01 06:01 WBC 4.55 L (4.8-10.8) K/uL RBC 3.32 L (4.2-5.4) M/uL Hgb 9.5 L (12.0-16.0) g/dL Hct 30.7 L (37-47) % MCV 92.5 (80-100) fL MCH 28.6 (25-34) pg MCHC 30.9 L (32-36) g/dL RDW Std Deviation 53.1 H (36.4-46.3) fL RDW Coeff of Raymundo 15.5 H (11.5-14.5) % Plt Count 149 (130-400) K/uL MPV 9.2 (7.4-10.4) fL Immature Gran % (Auto) 0.2 % Neut % (Auto) 54.8 % Lymph % (Auto) 12.1 % [place] % (Auto) 13.4 % Eos % (Auto) 19.1 % Baso % (Auto) 0.4 % Neut # (Auto) 2.49 (1.4-6.5) K/uL Lymph # (Auto) 0.55 L (1.2-3.4) K/uL [place] # (Auto) 0.61 H (0.11-0.59) K/uL Eos # (Auto) 0.87 H (0-0.5) K/uL Baso # (Auto) 0.02 (0-0.2) K/uL Immature Gran # (Auto) 0.01 (0.00-0.02) K/uL Absolute Nucleated RBC 0.04 H (0-0) K/uL Nucleated RBC % (auto) 0.9 % APTT 65.7 H* (21.0-31.0) Seconds PTT Ratio 2.5 Sodium 134 L (136-145) mmol/L Potassium 3.2 L (3.5-5.1) mmol/L Chloride 102 (98-107) mmol/L Carbon Dioxide 26 (21-32) mmol/L Anion Gap 6.0 (3-11) BUN 6 L (7-18) mg/dl Creatinine 0.61 (0.6-1.2) mg/dl Est Cr Clr Drug Dosing 59.6 ml/min Est GFR ( Amer) 100.6 ml/min Est GFR (Non-Af Amer) 86.8 ml/min BUN/Creatinine Ratio 10.0 (10-20) Glucose 82 (70-99) mg/dl Calcium 7.3 L (8.5-10.1) mg/dl Phosphorus 2.4 L (2.5-4.9) mg/dl Magnesium 1.8 (1.8-2.4) mg/dl PG Care Time/CCT Total # of Minutes Spent Total Time Spent with Patient: Total time spent is greater than 50% in coordination of care (as documented) at patient's floor/unit and/or counseling patient: Coding Level of Care Code 79872 Subseq Hosp Care Lvl 3 Diagnoses Partial bowel obstruction K56.690 Intestinal obstruction type: other intestinal obstruction Abdominal abscess Compression fracture DVT (deep venous thrombosis) I82.402 Affected thrombotic vein of extremity: unspecified vein of extremity Chronicity: acute DVT location: lower extremity Laterality: left Thrush B37.0 Lung cancer metastatic to bone C34.90; C79.51 Malnutrition E44.0 Malnutrition type: protein-calorie malnutrition Protein-calorie malnutrition severity: moderate Hypertension I10 Hypertension type: essential hypertension COPD (chronic obstructive pulmonary disease) J44.9 COPD type: unspecified COPD Hypothyroidism E03.9 Hypothyroidism type: acquired Anemia D64.9 Anemia type: unspecified type Hypokalemia E87.6 Hypomagnesemia E83.42 UTI (urinary tract infection) N39.0 (1) Partial bowel obstruction Intestinal obstruction type: other intestinal obstruction Qualified Code(s): K56.690 - Other partial intestinal obstruction (2) DVT (deep venous thrombosis) Affected thrombotic vein of extremity: unspecified vein of extremity Chronicity: acute DVT location: lower extremity Laterality: left Qualified Code(s): I82.402 - Acute embolism and thrombosis of unspecified deep veins of left lower extremity (3) Anemia Anemia type: unspecified type Qualified Code(s): D64.9 - Anemia, unspecified (4) Hypothyroidism Hypothyroidism type: acquired Qualified Code(s): E03.9 - Hypothyroidism, unspecified (5) Malnutrition Malnutrition type: protein-calorie malnutrition Protein-calorie malnutrition severity: moderate Qualified Code(s): E44.0 - Moderate protein-calorie malnutrition (6) COPD (chronic obstructive pulmonary disease) COPD type: unspecified COPD Qualified Code(s): J44.9 - Chronic obstructive pulmonary disease, unspecified (7) Hypertension Hypertension type: essential hypertension Qualified Code(s): I10 - Essential (primary) hypertension
[2021-03-06] MEDS ORDERED: CITALOPRAM 20 MG TAB PO SCH (15:30)
[2021-03-06] MEDS: oxyCODONE HCL IR 5 MG TAB (IMMEDIATE RELEASE) PO SCH ×2 (18:33→20:45)
[2021-03-06] MEDS: MAGNESIUM OXIDE 400 MG TAB PO SCH (20:46)
[2021-03-06] MEDS: POTASSIUM CHLORIDE 10 MEQ TABCR PO SCH (20:47)
[2021-03-06] MEDS: HEPARIN SODIUM/DEXTROSE 25,000 UNITS/500 ML BAG IV SCH (21:02)
[2021-03-06] MEDS: FLUCONAZOLE 200 MG/100 ML BAG IV SCH (21:32)
[2021-03-07] MEDS: D5W AND LACTATED RINGERS 1,000 ML IV SCH (02:35)
[2021-03-07] MEDS: METAXALONE 800 MG TABLET PO PRN ×2 (04:31→08:50)
[2021-03-07] MEDS: HEPARIN 100 UNIT/ML 5ML FLUSH FLUSH PRN ×2 (05:56→06:04)
[2021-03-07] MEDS: oxyCODONE HCL IR 5 MG TAB (IMMEDIATE RELEASE) PO SCH ×3 (06:00→18:08)
[2021-03-07] MEDS: LEVOTHYROXINE SODIUM 100 MCG TABLET PO SCH (06:00)
[2021-03-07] MEDS: ONDANSETRON INJ 2 MG/ML 2 ML VIAL IV PRN ×2 (06:04→19:40)
[2021-03-07 06:34] LABS: Basophils # (auto) 0.02 K/uL (0-0.2); Basophils % (auto) 0.5 %; Eosinophils # (auto) 0.63 K/uL (0-0.5); Eosinophils % (auto) 14.8 %; Hematocrit (blood only) 29.6 % (37-47); Hemoglobin 9.4 g/dL (12.0-16.0); Immature Granulocytes # (auto) 0.01 K/uL (0.00-0.02); Immature Granulocytes % (auto) 0.2 %; Lymphocytes # (auto) 0.46 K/uL (1.2-3.4); Lymphocytes % (auto) 10.8 %; Mean Corpuscular Hgb Conc 31.8 g/dL (32-36); Mean Corpuscular Volume 91.4 fL (80-100); Mean Platelet Volume 9.4 fL (7.4-10.4); Monocytes # (auto) 0.61 K/uL (0.11-0.59); Monocytes % (auto) 14.4 %; Neutrophils # (auto) 2.52 K/uL (1.4-6.5); Neutrophils % (auto) 59.3 %; Platelet Count 151 K/uL (130-400); RDW Coefficient of Variation 15.4 % (11.5-14.5); RDW Standard Deviation 52.3 fL (36.4-46.3); Red Blood Count 3.24 M/uL (4.2-5.4); White Blood Count 4.25 K/uL (4.8-10.8)
[2021-03-07 06:54] LABS: Partial Thromboplastin Ratio 3.1
[2021-03-07 07:14] LABS: Calcium 7.6 mg/dl (8.5-10.1); Est GFR (African American) 106.1 ml/min; Est GFR (Non-African American) 91.5 ml/min; Magnesium 1.5 mg/dl (1.8-2.4); Potassium 3.3 mmol/L (3.5-5.1)
[2021-03-07 07:41] LABS: Partial Thromboplastin Time 80.9 Seconds (21.0-31.0)
--- NOTE | 2021-03-07 08:30 | Surgery Progress Note ---
Date of Service March 07, 2021 Assessment & Plan (1) Partial bowel obstruction: continue liquids, advance as tolerated slowly to low fiber Admission and Anticipated Discharge Date Admission Date: March 04, 2021 Subjective some back pain, nausea last night, did not eat dinner Physical Exam Gastrointestinal (Abdomen): Inspection/Auscultation: + abdomen distended (slightly) Percussion/Palpation: abdomen soft has ostomy output Results & Data ([facility]) Vital Signs (Past 12 Hours) Vital Signs Temp Pulse Resp BP Pulse Ox Pulse Ox 03/07/21 06:57 36.8 C 70 16 145/69 H 96 03/06/21 23:28 36.9 C 64 16 133/72 95 03/06/21 20:45 93 PG Care Time/CCT Total # of Minutes Spent Total Time Spent with Patient: Total time spent is greater than 50% in coordination of care (as documented) at patient's floor/unit and/or counseling patient: Coding Level of Care Code 81764 Subseq Hosp Care Lvl 1 Diagnoses Partial bowel obstruction K56.690 Intestinal obstruction type: other intestinal obstruction (1) Partial bowel obstruction Intestinal obstruction type: other intestinal obstruction Qualified Code(s): K56.690 - Other partial intestinal obstruction
[2021-03-07] MEDS: HYDROmorphone INJ 0.5 MG/0.5 ML SYR IV PRN (08:48)
[2021-03-07] MEDS: MULTIVITAMIN CHEWABLE TAB PO SCH ×2 (08:49→09:28)
[2021-03-07] MEDS: POTASSIUM CHLORIDE 10 MEQ TABCR PO SCH (08:50)
[2021-03-07] MEDS: MAGNESIUM OXIDE 400 MG TAB PO SCH ×2 (08:50→21:36)
[2021-03-07] MEDS: ASPIRIN 81 MG ECTAB PO SCH ×2 (08:51→09:27)
[2021-03-07] MEDS: FOLIC ACID 1 MG TAB PO SCH (08:51)
[2021-03-07] MEDS ORDERED: POTASSIUM CHLORIDE CRTAB 20 MEQ TABCR PO ONE (09:15)
[2021-03-07] MEDS ORDERED: MAGNESIUM SULFATE / D5W 1 GM/100 ML BAG IV ONE (09:30)
--- NOTE | 2021-03-07 10:23 | XRay Report ---
KUB HISTORY: f/u partial small bowel obstruction. COMPARISON: KUB 03/06/2021. FINDINGS: Dilated gas-filled loops of small bowel are again noted within the abdomen demonstrating fl uid levels. These have progressed in the interval. These measure up to 3.8 cm in diameter, presumably measuring 3.5 cm. This favors a bowel obstruction. Small of gas and fluid again noted within the col on. There is a left lower quadrant ostomy site. No renal calculi. No ureteral calculi. No pneumoperi toneum or pneumatosis. IMPRESSION: Progressive dilated gas and fluid-filled loops of small bowel within the abdomen. This likely represe nts a small bowel obstruction. ACT 112: Negative or not required by law. Electronically signed by: Bao Alcala M.D. 03/07/2021 10:21 AM
[2021-03-07] MEDS: CALCITONIN SALMON NA 200 IU/AC 3.7 ML BTL SCH (10:59)
[2021-03-07] MEDS: HEPARIN SODIUM/DEXTROSE 25,000 UNITS/500 ML BAG IV SCH (11:04)
--- NOTE | 2021-03-07 11:23 | Hospitalist Progress Note ---
Date of Service March 07, 2021 Assessment & Plan (1) Partial bowel obstruction: Likely secondary to adhesions and intrapelvic abscesses Now much improved and NG tube has been removed, is tolerating full liquids Had some nausea which may be related to IV Dilaudid use-advised to cut down on IV Dilaudid Surgery following-advanced diet to full liquids on 03/06 Discontinue further IV fluids -Appreciate ongoing surgery management advancing diet (2) Abdominal abscess: Initially started on Zosyn as broad coverage for pelvic abscesses and Gentamicin for history of Pseudomonas, however will revert back to Avycaz which is what she has been on at home-this will cover for previous Pseudomonas and the Pseudomonas growing in her urine -Continue Avycaz 2.5 g IV every 8 hours and will continue for at least 3 more weeks to make a total of 6 weeks treatment as she still has pelvic abscesses present on CT scan -Will need repeat imaging in a few weeks and should follow-up with surgery as an outpatient (3) Compression fracture: Encouraged her to stop using IV Dilaudid and instead will revert back to home dosing -Start oxycodone 10 mg p.o. 3 times daily scheduled and use IV Dilaudid only as needed breakthrough pain -Continue home Skelaxin as a muscle relaxer which really helps her as well (4) DVT (deep venous thrombosis): - bilateral ultrasound confirms left occlusive DVT in the left popliteal vein-was previously nonocclusive - Once consistently improving with diet will start PO anticoagulation (5) Thrush: Chronic that gets worse when patient is on antibiotics-has some on her tongue -Continue fluconazole 200mg IV daily while inpatient, switch to PO once able to tolerate PO meds (6) Lung cancer metastatic to bone: No further chemotherapy planned as she obviously could not tolerate that with ongoing infection (7) Malnutrition: With severe protein calorie malnutrition With 18 pound weight loss in the last 1.5 months, moderate loss of muscle mass in the clavicle bone region, pressure injury on the sacrum With abdominal infections frequently and small bowel obstructions, has had poor p.o. intake over the last few months Dietary consult appreciated-recommends advancing diet as tolerated to low fiber and now that on full liquids, can take CBE twice daily and add on a chewable multivitamin (8) Hypertension: No acute needs - torsemide on hold (9) COPD (chronic obstructive pulmonary disease): No acute need, not on oxygen - Albuterol as needed (10) Hypothyroidism: Synthroid 100mcg as outpatient PO - TSH here is normal at 0.8 Continue levothyroxine 100 mcg p.o. daily (11) Anemia: Hemoglobin 9.5 and fairly stable from previous, likely of chronic disease Follow CBC (12) Hypokalemia: Monitor and replace as necessary (13) Hypomagnesemia: Mg 1.5. Mg sulphate 1g IV today. Continue PO supplementation. Monitor periodically. Admission and Anticipated Discharge Date Admission Date: March 04, 2021 Subjective Patient reports pain is both controlled and not controlled. Which she wishes to stick to oxycodone but also wishes to switch to hydromorphone. Given confusion regarding her pain and muscle relaxant regimen will plan on discussing with her daughter when she visits as communication has been an issue when changes are made just with the patient as she later feels she has been pressured into making decision. Surgery advancing diet today, appears to be tolerating without nausea, vomiting or abdominal pain. Results & Data Results & Data ([facility]) Vital Signs (Past 12 Hours) Vital Signs Temp Pulse Resp BP Pulse Ox 03/07/21 06:57 36.8 C 70 16 145/69 H 96 03/06/21 23:28 36.9 C 64 16 133/72 95 PG Care Time/CCT Total # of Minutes Spent Total Time Spent with Patient: Total time spent is greater than 50% in coordination of care (as documented) at patient's floor/unit and/or counseling patient: Coding Level of Care Code 67839 Subseq Hosp Care Lvl 2 Diagnoses Partial bowel obstruction K56.690 Intestinal obstruction type: other intestinal obstruction Abdominal abscess Compression fracture DVT (deep venous thrombosis) I82.402 Affected thrombotic vein of extremity: unspecified vein of extremity Chronicity: acute DVT location: lower extremity Laterality: left Thrush B37.0 Lung cancer metastatic to bone C34.90; C79.51 Malnutrition E44.0 Malnutrition type: protein-calorie malnutrition Protein-calorie malnutrition severity: moderate Hypertension I10 Hypertension type: essential hypertension COPD (chronic obstructive pulmonary disease) J44.9 COPD type: unspecified COPD Hypothyroidism E03.9 Hypothyroidism type: acquired Anemia D64.9 Anemia type: unspecified type Hypokalemia E87.6 Hypomagnesemia E83.42 (1) Partial bowel obstruction Intestinal obstruction type: other intestinal obstruction Qualified Code(s): K56.690 - Other partial intestinal obstruction (2) DVT (deep venous thrombosis) Affected thrombotic vein of extremity: unspecified vein of extremity Chronicity: acute DVT location: lower extremity Laterality: left Qualified Code(s): I82.402 - Acute embolism and thrombosis of unspecified deep veins of left lower extremity (3) Anemia Anemia type: unspecified type Qualified Code(s): D64.9 - Anemia, unspecified (4) Hypothyroidism Hypothyroidism type: acquired Qualified Code(s): E03.9 - Hypothyroidism, unspecified (5) Malnutrition Malnutrition type: protein-calorie malnutrition Protein-calorie malnutrition severity: moderate Qualified Code(s): E44.0 - Moderate protein-calorie malnutrition (6) COPD (chronic obstructive pulmonary disease) COPD type: unspecified COPD Qualified Code(s): J44.9 - Chronic obstructive pulmonary disease, unspecified (7) Hypertension Hypertension type: essential hypertension Qualified Code(s): I10 - Essential (primary) hypertension
[2021-03-07 15:01] LABS: Partial Thromboplastin Ratio 2.5
[2021-03-07 15:03] LABS: Partial Thromboplastin Time 65.8 Seconds (21.0-31.0)
[2021-03-07] MEDS: FLUCONAZOLE 200 MG/100 ML BAG IV SCH (18:11)
[2021-03-07] MEDS ORDERED: PROMETHAZINE HCL 25 MG in SODIUM CHLORIDE 0.9% 50 ML IV STA (22:35)
[2021-03-08] MEDS: oxyCODONE HCL IR 5 MG TAB (IMMEDIATE RELEASE) PO SCH ×3 (05:42→17:38)
[2021-03-08] MEDS: ONDANSETRON INJ 2 MG/ML 2 ML VIAL IV PRN ×2 (05:42→20:31)
[2021-03-08] MEDS: LEVOTHYROXINE SODIUM 100 MCG TABLET PO SCH (05:42)
[2021-03-08] MEDS: HEPARIN 100 UNIT/ML 5ML FLUSH FLUSH PRN ×2 (05:55→20:37)
[2021-03-08] MEDS: METAXALONE 800 MG TABLET PO PRN (08:33)
[2021-03-08] MEDS: FOLIC ACID 1 MG TAB PO SCH (08:33)
[2021-03-08] MEDS: MULTIVITAMIN CHEWABLE TAB PO SCH (08:33)
[2021-03-08] MEDS: ASPIRIN 81 MG ECTAB PO SCH (08:33)
[2021-03-08] MEDS: POTASSIUM CHLORIDE CRTAB 20 MEQ TABCR PO SCH (08:34)
[2021-03-08] MEDS: MAGNESIUM OXIDE 400 MG TAB PO SCH ×2 (08:34→20:31)
[2021-03-08 08:46] LABS: Partial Thromboplastin Ratio 2.5
[2021-03-08 09:21] LABS: Partial Thromboplastin Time 64.7 Seconds (21.0-31.0)
--- NOTE | 2021-03-08 09:38 | Surgery Progress Note ---
Date of Service March 08, 2021 Assessment & Plan (1) Partial bowel obstruction: Patient with emesis yesterday evening, still with some nausea this AM. continue prn anti-emetics Agree with backing diet back to clears for now until symptoms improve Ostomy still with + stool contents in bag Admission and Anticipated Discharge Date Admission Date: March 04, 2021 Subjective Patient reports having an episode of emesis yesterday evening. Today she says she is feeling tired and mildly nauseated. Her ostomy is still functioning. She reports some right lower abdominal pain. Physical Exam Physical Exam: awake Respiratory: normal respiratory effort Gastrointestinal (Abdomen): Inspection/Auscultation: + abdomen distended (slightly, abd less soft than previous) Percussion/Palpation: + abdomen tender (some discomfort to palpation in the RLQ) + stool in ostomy bag Results & Data ([facility]) Vital Signs (Past 12 Hours) Vital Signs Temp Pulse Resp BP Pulse Ox 03/08/21 07:07 37.4 C 92 H 17 155/80 H 92 03/07/21 23:25 37.0 C 78 16 160/80 H 93 PG Care Time/CCT Total # of Minutes Spent Total Time Spent with Patient: Total time spent is greater than 50% in coordination of care (as documented) at patient's floor/unit and/or counseling patient: Coding Level of Care Code 44516 Subseq Hosp Care Lvl 1 Diagnoses Partial bowel obstruction K56.690 Intestinal obstruction type: other intestinal obstruction (1) Partial bowel obstruction Intestinal obstruction type: other intestinal obstruction Qualified Code(s): K56.690 - Other partial intestinal obstruction
--- NOTE | 2021-03-08 10:19 | Palliative Care Progress Note ---
Date of Service March 08, 2021 Assessment & Plan (1) Back pain: Currently controlled with IV hydromorphone; has only taken one dose of this in 24 hours. We discussed plan for controlling her pain after discharge. She does not feel that oxycodone was effective. Would consider po hydromorphone for discharge which she receives PO TID and is tolerating. (2) Palliative care encounter: She was on the phone with her daughter, Aydee, and she brought up that they would like to return home with hospice services. We discussed the logistics of this and that this transition does indicate that she would be discontinuing her IV antibiotics. Both Aydee and Aydee are in agreement with this and was confirmed with case management. Reiterated that should her symptoms worsen or increased concern arise regarding her comfort level, hospice is available 24 hours for telephone consult and in person as necessary and determined by hospice. The family will be able to rotate shifts and be present 24/. They have equipment already at home and do not require additional equipment. Discharge to home with hospice hopefully today or in the next few days. Please contact Palliative Medicine for any additional questions. (3) Lung cancer metastatic to bone: (4) Partial bowel obstruction: (5) Nausea: Pt main complaint is her nausea. She feels she can not keep anything down and just doesn't want to even drink anything anymore. She does have IV Zofran PRN ordered, as plan is for her to return home with Hospice, will order scheduled Zofran 4mg PO Q6 hours. Admission and Anticipated Discharge Date Admission Date: March 04, 2021 Subjective Pt main complaint is her nausea. She feels she can not keep anything down and just doesn't want to even drink anything anymore. She was on the phone with her daughter, Aydee, and she brought up that they would like to return home with hospice services. See A/P for further details Review of Systems Review of Systems: [place] Symptom Assessment Score Pain 1/3 Dyspnea 0/3 Nausea 2/3 Anxiety 1/3 Fatigue 2/3 Drowsiness 0/3 Palliative Performance Score 30% Physical Exam Constitutional: + ill appearing; no acute distress Respiratory: normal respiratory effort; no labored breathing Gastrointestinal (Abdomen): Percussion/Palpation: + abdomen tender (left side) Musculoskeletal: Extremities: extremities normal to inspection Neurologic: awake; not confused Results & Data ([facility]) Vital Signs (Past 12 Hours) Vital Signs Temp Pulse Resp BP Pulse Ox 03/08/21 07:07 37.4 C 92 H 17 155/80 H 92 03/07/21 23:25 37.0 C 78 16 160/80 H 93 PG Care Time/CCT Total # of Minutes Spent Total Time Spent with Patient: Total time spent is greater than 50% in coordination of care (as documented) at patient's floor/unit and/or counseling patient: 45 minutes with > 50% of that time spent assessing the patient, discussing goals of care with patient and family, providing symptom management needs, and collaborating with IDT Coding Level of Care Code 86647 Prolonged Care (int'l) Diagnoses Back pain M54.9 Palliative care encounter Z51.5 Lung cancer metastatic to bone C34.90; C79.51 Partial bowel obstruction K56.690 Intestinal obstruction type: other intestinal obstruction Nausea R11.0 Time Spent (min) 45 (1) Partial bowel obstruction Intestinal obstruction type: other intestinal obstruction Qualified Code(s): K56.690 - Other partial intestinal obstruction
[2021-03-08] MEDS: ONDANSETRON 4 MG OD TAB PO SCH ×3 (11:16→23:18)
[2021-03-08] MEDS: CALCITONIN SALMON NA 200 IU/AC 3.7 ML BTL SCH (11:17)
[2021-03-08] MEDS: HEPARIN SODIUM/DEXTROSE 25,000 UNITS/500 ML BAG IV SCH (17:38)
--- NOTE | 2021-03-08 20:18 | Hospitalist Progress Note ---
Date of Service March 08, 2021 Assessment & Plan (1) Partial bowel obstruction: Likely secondary to adhesions and intrapelvic abscesses Now much improved and NG tube has been removed, is tolerating full liquids Discontinue further IV fluids -Appreciate ongoing surgery management back to clears today (2) Abdominal abscess: Initially started on Zosyn as broad coverage for pelvic abscesses and Gentamicin for history of Pseudomonas, however will revert back to Avycaz which is what she has been on at home-this will cover for previous Pseudomonas and the Pseudomonas growing in her urine -Continue Avycaz 2.5 g IV every 8 hours and will continue for at least 3 more weeks to make a total of 6 weeks treatment as she still has pelvic abscesses present on CT scan -Continue antibiotics during inpatient stay but will d/c on discharge (3) Compression fracture: Encouraged her to stop using IV Dilaudid and instead will revert back to home dosing -Continue oxycodone 10 mg p.o. 3 times daily scheduled and use IV Dilaudid only as needed breakthrough pain -Continue home Skelaxin as a muscle relaxer which really helps her as well (4) DVT (deep venous thrombosis): - bilateral ultrasound confirms left occlusive DVT in the left popliteal vein-was previously nonocclusive - Once consistently improving with diet will start PO anticoagulation (5) Thrush: Chronic that gets worse when patient is on antibiotics-has some on her tongue -Continue fluconazole 200mg PO (6) Lung cancer metastatic to bone: No further chemotherapy planned as she obviously could not tolerate that with ongoing infection (7) Malnutrition: With severe protein calorie malnutrition With 18 pound weight loss in the last 1.5 months, moderate loss of muscle mass in the clavicle bone region, pressure injury on the sacrum With abdominal infections frequently and small bowel obstructions, has had poor p.o. intake over the last few months Dietary consult appreciated-recommends advancing diet as tolerated to low fiber and now that on full liquids, can take CBE twice daily and add on a chewable multivitamin (8) Hypertension: No acute needs - torsemide on hold (9) COPD (chronic obstructive pulmonary disease): No acute need, not on oxygen - Albuterol as needed (10) Hypothyroidism: Synthroid 100mcg as outpatient PO - TSH here is normal at 0.8 Continue levothyroxine 100 mcg p.o. daily (11) Anemia: Hemoglobin 9.5 and fairly stable from previous, likely of chronic disease Follow CBC (12) Hypokalemia: (13) Hypomagnesemia: Admission and Anticipated Discharge Date Admission Date: March 04, 2021 Subjective Patient resting quietly. Appears to be in no distress at current time. Plan is for patient to go to home on comfort care measures on per palliative ca re note. Review of Systems Review of Systems: All systems reviewed & are unremarkable except as noted in HPI & below Physical Exam Constitutional: + thin and + frail appearing Eyes: + anicteric sclerae Neck: trachea midline, no thyromegaly Respiratory: normal respiratory effort; no respiratory distress Chest (Breasts): Chest: normal inspection of chest Gastrointestinal (Abdomen): Inspection/Auscultation: + abdomen distended; + abdomen abnormal to inspection (Colostomy bag with stool present) Percussion/Palpation: abdomen soft; abdomen nontender and no guarding Musculoskeletal: Extremities: extremities normal to inspection; no cyanosis and no clubbing Skin: no rashes, warm and dry Neurologic: moves all extremities and awake; no focal motor deficits Psychiatric: A+Ox3, euthymic affect Lymphatic: no lymphedema Results & Data Results & Data ([facility]) Vital Signs (Past 12 Hours) Vital Signs Temp Pulse Resp BP Pulse Ox 03/08/21 15:05 37.3 C 90 18 153/80 H 92 PG Care Time/CCT Total # of Minutes Spent Total Time Spent with Patient: Total time spent is greater than 50% in coordination of care (as documented) at patient's floor/unit and/or counseling patient: Coding Level of Care Code 02296 Subseq Hosp Care Lvl 1 Diagnoses Partial bowel obstruction K56.690 Intestinal obstruction type: other intestinal obstruction Abdominal abscess Compression fracture DVT (deep venous thrombosis) I82.402 Affected thrombotic vein of extremity: unspecified vein of extremity Chronicity: acute DVT location: lower extremity Laterality: left Thrush B37.0 Lung cancer metastatic to bone C34.90; C79.51 Malnutrition E44.0 Malnutrition type: protein-calorie malnutrition Protein-calorie malnutrition severity: moderate Hypertension I10 Hypertension type: essential hypertension COPD (chronic obstructive pulmonary disease) J44.9 COPD type: unspecified COPD Hypothyroidism E03.9 Hypothyroidism type: acquired Anemia D64.9 Anemia type: unspecified type Hypokalemia E87.6 Hypomagnesemia E83.42 (1) Partial bowel obstruction Intestinal obstruction type: other intestinal obstruction Qualified Code(s): K56.690 - Other partial intestinal obstruction (2) DVT (deep venous thrombosis) Affected thrombotic vein of extremity: unspecified vein of extremity Chronicity: acute DVT location: lower extremity Laterality: left Qualified Co de(s): I82.402 - Acute embolism and thrombosis of unspecified deep veins of left lower extremity (3) Anemia Anemia type: unspecified type Qualified Code(s): D64.9 - Anemia, unspecified (4) Hypothyroidism Hypothyroidism type: acquired Qualified Code(s): E03.9 - Hypothyroidism, unspecified (5) Malnutrition Malnutrition type: protein-calorie malnutrition Protein-calorie malnutrition severity: moderate Qualified Code(s): E44.0 - Moderate protein-calorie malnutrition (6) COPD (chronic obstructive pulmonary disease) COPD type: unspecified COPD Qualified Code(s): J44.9 - Chronic obstructive pulmonary disease, unspecified (7) Hypertension Hypertension type: essential hypertension Qualified Code(s): I10 - Essential (primary) hypertension
[2021-03-08] MEDS: FLUCONAZOLE 100 MG TAB PO SCH (20:31)
[2021-03-09] MEDS: ONDANSETRON INJ 2 MG/ML 2 ML VIAL IV PRN ×2 (02:59→20:01)
[2021-03-09] MEDS: HEPARIN 100 UNIT/ML 5ML FLUSH FLUSH PRN ×3 (02:59→22:03)
[2021-03-09] MEDS: LEVOTHYROXINE SODIUM 100 MCG TABLET PO SCH (05:32)
[2021-03-09] MEDS: ONDANSETRON 4 MG OD TAB PO SCH ×4 (05:32→23:55)
[2021-03-09] MEDS: oxyCODONE HCL IR 5 MG TAB (IMMEDIATE RELEASE) PO SCH ×3 (05:33→18:02)
[2021-03-09 08:55] LABS: Partial Thromboplastin Ratio > 5.3
[2021-03-09 08:59] LABS: Partial Thromboplastin Time > 139.0 Seconds (21.0-31.0)
[2021-03-09] MEDS: ASPIRIN 81 MG ECTAB PO SCH (09:14)
[2021-03-09] MEDS: MULTIVITAMIN CHEWABLE TAB PO SCH ×2 (09:14→09:15)
[2021-03-09] MEDS: MAGNESIUM OXIDE 400 MG TAB PO SCH ×2 (09:15→20:14)
[2021-03-09] MEDS: FOLIC ACID 1 MG TAB PO SCH (09:15)
[2021-03-09] MEDS: POTASSIUM CHLORIDE CRTAB 20 MEQ TABCR PO SCH (09:15)
[2021-03-09] MEDS: CALCITONIN SALMON NA 200 IU/AC 3.7 ML BTL SCH (11:07)
--- NOTE | 2021-03-09 11:07 | Surgery Progress Note ---
Date of Service March 09, 2021 Assessment & Plan (1) Partial bowel obstruction: Patient with ongoing nausea, but no further emesis Diet has been advanced as tolerated + ostomy function Patient plans to return home tomorrow on hospice We will sign off, please call with any questions/concerns Admission and Anticipated Discharge Date Admission Date: March 04, 2021 Subjective The patient reports some lingering nausea today. She denies any emesis. Says she was able to tolerate some breakfast this AM, some toast and cream of wheat without issue. Denies any abdominal pain at rest. Physical Exam Physical Exam: awake/alert Constitutional: no acute distress Gastrointestinal (Abdomen): Percussion/Palpation: + abdomen tender (in the RLQ) and abdomen soft + ostomy output Results & Data ([facility]) Vital Signs (Past 12 Hours) Vital Signs Temp Pulse Resp BP Pulse Ox 03/09/21 07:21 36.8 C 73 16 153/72 H 91 03/08/21 23:17 37.2 C PG Care Time/CCT Total # of Minutes Spent Total Time Spent with Patient: Total time spent is greater than 50% in coordination of care (as documented) at patient's floor/unit and/or counseling patient: Coding Level of Care Code 24650 Subseq Hosp Care Lvl 1 Diagnoses Partial bowel obstruction K56.690 Intestinal obstruction type: other intestinal obstruction (1) Partial bowel obstruction Intestinal obstruction type: other intestinal obstruction Qualified Code(s): K56.690 - Other partial intestinal obstruction
--- NOTE | 2021-03-09 18:56 | Hospitalist Progress Note ---
Date of Service March 09, 2021 Assessment & Plan (1) Goals of care, counseling/discussion: Planning on going home on hospice care tomorrow. (2) Partial bowel obstruction: Likely secondary to adhesions and intrapelvic abscesses Continued nausea but no vomiting - continue low fiber diet (3) Abdominal abscess: Initially started on Zosyn as broad coverage for pelvic abscesses and Gentamicin for history of Pseudomonas, however will revert back to Avycaz which is what she has been on at home-this will cover for previous Pseudomonas and the Pseudomonas growing in her urine -Continue Avycaz 2.5 g IV every 8 hours and will continue for at least 3 more weeks to make a total of 6 weeks treatment as she still has pelvic abscesses present on CT scan -Continue antibiotics during inpatient stay per patient wishes but will d/c on discharge (4) Compression fracture: Encouraged her to stop using IV Dilaudid and instead will revert back to home dosing -Continue oxycodone 10 mg p.o. 3 times daily scheduled and use IV Dilaudid only as needed breakthrough pain -Continue home Skelaxin as a muscle relaxer which really helps her as well (5) DVT (deep venous thrombosis): - bilateral ultrasound confirms left occlusive DVT in the left popliteal vein-was previously nonocclusive - Start Eliquis tonight (6) Thrush: Chronic that gets worse when patient is on antibiotics-has some on her tongue -Continue fluconazole 200mg PO (7) Lung cancer metastatic to bone: No further chemotherapy planned as going home on hospice (8) Malnutrition: With severe protein calorie malnutrition With 18 pound weight loss in the last 1.5 months, moderate loss of muscle mass in the clavicle bone region, pressure injury on the sacrum With abdominal infections frequently and small bowel obstructions, has had poor p.o. intake over the last few months (9) Hypertension: No acute needs - torsemide on hold (10) COPD (chronic obstructive pulmonary disease): No acute need, not on oxygen - Albuterol as needed (11) Hypothyroidism: Synthroid 100mcg as outpatient PO - TSH here is normal at 0.8 Continue levothyroxine 100 mcg p.o. daily (12) Anemia: Hemoglobin 9.5 and fairly stable from previous, likely of chronic disease Follow CBC (13) Hypokalemia: Monitor and replace as necessary (14) Hypomagnesemia: Will stop monitoring this as she plans to go home on hospice Admission and Anticipated Discharge Date Admission Date: March 04, 2021 Subjective Continued nausea, no vomiting. No abdominal pain. Continued output. PTT level high this morning. Patient wishes to continue antibiotics for now but will be discontinued on discharge on hospice. Discussed with palliative care and Eliquis could be continued therefore will switch her heparin over to Eliquis for DVT. Attempted to contact daughter but did not picking supervisor on number on EHR. Review of Systems Review of Systems: All systems reviewed & are unremarkable except as noted in HPI & below Physical Exam Constitutional: + thin and + frail appearing Eyes: + anicteric sclerae Respiratory: normal respiratory effort; no respiratory distress Chest (Breasts): Chest: normal inspection of chest Gastrointestinal (Abdomen): Inspection/Auscultation: + abdomen distended; + abdomen abnormal to inspection (Colostomy bag with stool present) Percussion/Palpation: abdomen soft; abdomen nontender and no guarding Musculoskeletal: Extremities: + cyanosis Skin: no rashes, warm and dry Neurologic: moves all extremities and awake; no focal motor deficits Psychiatric: A+Ox3, euthymic affect Lymphatic: no lymphedema Results & Data Results & Data ([facility]) Vital Signs (Past 12 Hours) Vital Signs Temp Pulse Resp BP Pulse Ox 03/09/21 16:21 36.7 C 72 18 154/80 H 94 03/09/21 07:21 36.8 C 73 16 153/72 H 91 PG Care Time/CCT Total # of Minutes Spent Total Time Spent with Patient: Total time spent is greater than 50% in coordination of care (as documented) at patient's floor/unit and/or counseling patient: Coding Level of Care Code 51181 Subseq Hosp Care Lvl 1 Diagnoses Goals of care, counseling/discussion Z71.89 Partial bowel obstruction K56.690 Intestinal obstruction type: other intestinal obstruction Abdominal abscess Compression fracture DVT (deep venous thrombosis) I82.402 Affected thrombotic vein of extremity: unspecified vein of extremity Chronicity: acute DVT location: lower extremity Laterality: left Thrush B37.0 Lung cancer metastatic to bone C34.90; C79.51 Malnutrition E44.0 Malnutrition type: protein-calorie malnutrition Protein-calorie malnutrition severity: moderate Hypertension I10 Hypertension type: essential hypertension COPD (chronic obstructive pulmonary disease) J44.9 COPD type: unspecified COPD Hypothyroidism E03.9 Hypothyroidism type: acquired Anemia D64.9 Anemia type: unspecified type Hypokalemia E87.6 Hypomagnesemia E83.42 (1) Partial bowel obstruction Intestinal obstruction type: other intestinal obstruction Qualified Code(s): K56.690 - Other partial intestinal obstruction (2) DVT (deep venous thrombosis) Affected thrombotic vein of extremity: unspecified vein of extremity Chronicity: acute DVT location: lower extremity Laterality: left Qualified Code(s): I82.402 - Acute embolism and thrombosis of unspecified deep veins of left lower extremity (3) Anemia Anemia type: unspecified type Qualified Code(s): D64.9 - Anemia, unspecified (4) Hypothyroidism Hypothyroidism type: acquired Qualified Code(s): E03.9 - Hypothyroidism, unspecified (5) Malnutrition Malnutrition type: protein-calorie malnutrition Protein-calorie malnutrition severity: moderate Qualified Code(s): E44.0 - Moderate protein-calorie malnutrition (6) COPD (chronic obstructive pulmonary disease) COPD type: unspecified COPD Qualified Code(s): J44.9 - Chronic obstructive pulmonary disease, unspecified (7) Hypertension Hypertension type: essential hypertension Qualified Code(s): I10 - Essential (primary) hypertension
[2021-03-09] MEDS: APIXABAN 5 MG TABLET PO SCH (20:07)
[2021-03-09] MEDS: FLUCONAZOLE 100 MG TAB PO SCH (20:13)
[2021-03-09] MEDS ORDERED: PROMETHAZINE HCL 25 MG in SODIUM CHLORIDE 0.9% 50 ML IV STA (21:08)
[2021-03-10] MEDS: ONDANSETRON INJ 2 MG/ML 2 ML VIAL IV PRN (04:04)
[2021-03-10] MEDS: HYDROmorphone INJ 0.5 MG/0.5 ML SYR IV PRN (04:09)
[2021-03-10] MEDS: LEVOTHYROXINE SODIUM 100 MCG TABLET PO SCH (05:30)
[2021-03-10] MEDS: ONDANSETRON 4 MG OD TAB PO SCH ×2 (05:30→10:38)
[2021-03-10] MEDS: oxyCODONE HCL IR 5 MG TAB (IMMEDIATE RELEASE) PO SCH ×2 (05:30→11:15)
[2021-03-10] MEDS: HEPARIN 100 UNIT/ML 5ML FLUSH FLUSH PRN (05:54)
[2021-03-10] MEDS: MAGNESIUM OXIDE 400 MG TAB PO SCH (08:15)
[2021-03-10] MEDS: APIXABAN 5 MG TABLET PO SCH (08:16)
[2021-03-10] MEDS: FOLIC ACID 1 MG TAB PO SCH (08:16)
[2021-03-10] MEDS: ASPIRIN 81 MG ECTAB PO SCH (08:16)
[2021-03-10] MEDS: POTASSIUM CHLORIDE CRTAB 20 MEQ TABCR PO SCH (08:16)
[2021-03-10] MEDS: CALCITONIN SALMON NA 200 IU/AC 3.7 ML BTL SCH (10:38)
--- NOTE | 2021-03-10 11:14 | Palliative Care Progress Note ---
Date of Service March 10, 2021 Assessment & Plan (1) Back pain: (2) Palliative care encounter: Patient feeling ready to go home. She has utilized Dilaudid 0.5 mg IV Q 6 PRN and has Oxy IR 10 mg PO TID. Will DC Dilaudid as IV use not an option at home. [facility] to meet patient at home, which has been communicated. Please contact Palliative Medicine for any additional questions. (3) Lung cancer metastatic to bone: (4) Partial bowel obstruction: (5) Nausea: Pt main complaint is her nausea. She feels she can not keep anything down and just doesn't want to even drink anything anymore. Tolerating Zofran 4 mg PO Q6 PRN. Admission and Anticipated Discharge Date Admission Date: March 04, 2021 Subjective Continued nausea, patient eager to get home. Hospice nurse meeting family at home for symptom management. See A/P for further information. Review of Systems Review of Systems: [place] Symptom Assessment Score Pain 1/3 Dyspnea 0/3 Nausea 2/3 Anxiety 1/3 Fatigue 2/3 Drowsiness 0/3 Palliative Performance Score 30% Physical Exam Constitutional: + ill appearing; no acute distress Respiratory: normal respiratory effort; no labored breathing Gastrointestinal (Abdomen): Percussion/Palpation: + abdomen tender (left side) Musculoskeletal: Extremities: extremities normal to inspection Neurologic: awake; not confused Results & Data ([facility]) Vital Signs (Past 12 Hours) Vital Signs Temp Pulse Resp BP BP Pulse Ox 03/10/21 10:31 36.8 C 88 20 163/79 H 155/80 H 92 03/10/21 07:49 36.8 C 88 20 163/79 H 92 PG Care Time/CCT Total # of Minutes Spent Total Time Spent with Patient: Total time spent is greater than 50% in coordination of care (as documented) at patient's floor/unit and/or counseling patient:25 mintues with > 50% of that time spent assessing the patient, evaluating symptom management, and collaborating with IDT Coding Level of Care Code 75982 Subseq Hosp Care Lvl 2 Diagnoses Back pain M54.9 Palliative care encounter Z51.5 Lung cancer metastatic to bone C34.90; C79.51 Partial bowel obstruction K56.690 Intestinal obstruction type: other intestinal obstruction Nausea R11.0 Time Spent (min) 25 (1) Partial bowel obstruction Intestinal obstruction type: other intestinal obstruction Qualified Code(s): K56.690 - Other partial intestinal obstruction
--- NOTE | 2021-03-10 12:08 | Discharge Summary ---
Date of Service March 10, 2021 Admission HPI Per Admitting Provider 80 YOF with past medical history of 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 Complicated enterocutaneous fistulas with abscess, bowel obstructions, colitis, and abdominal wall wound infections with Pseudomonas and mild left hydronephrosis. In Oct 2019, the patient underwent a sigmoid colostomy and appendectomy. She had a GREGG drain placed to drain her intra-abdominal fluid collections, which came out a couple of weeks ago. She comes into the ED today for inability to keep her medications down, eat or drink anything for the past 2-3 days. She had a CT scan performed of the abdomen in the EMD that revealed the chronic abscess which have varied in size with some decreasing and some increasing in size, but also revealed a likely developing SBO. Patient was recently admitted in January and was also noted to have a nonocclusive deep venous thrombosis identified within 1 of paired left pop liteal veins, where she was placed on a heparin drip and transitioned to Xeralto, she has not been able to take this since Sunday. Patient reports that she started getting increase in her abdominal pain around Sunday, that progressed to nausea on Sunday and on Sunday she vomited and has been unable to eat or drink anything since then. Her pain is right upper midline quadrant that is sharp and tender to palpation. She noticed that on Sunday and her Ostomy output changed to more liquid as well. She denies any fevers or chills since then, and her WBC count is 7. I reviewed the findings of her CT scan regarding her likely progressing bowel obstruction in regards to conservative treatment at this time to include bowel rest, IVF, pain and antiemetics, but to include in her bowel rest would recommend an Nasogastric tube, which the patient would want at this time. Surgery has been consulted and patient will be admitted to PCU for pain control, heparin drip, and conversion of her medications to IV to include her Synthroid. She will be started on double coverage for her Pseudomonas infection regarding her last wound cultures to include Zosyn and Gentamicin. During her hospital admission in January the patient voiced frustration and fatigue of her diagnosis and treatment, and palliative care had a long discussion with her as far as transition to comfort and allow her to pass naturally and peacefully, she originally wanted to proceed, and antibiotics were stopped, labs and testing were discontinued and the patient was discharged with the follow up to Hospice. The patient declined this after discharge, and states "that was a mistake at that time, I am not ready yet". I have talked with the daughter Aydee in regards to those discussions. As far as the abscess and fluid collection in her abdomen they did not wish to pursue further drainage of these, however if a life-threatening obstruction or perforation were to occur, she would defer to her mother's decision as she is still able to do so. They understand that this will not change the terminal outcome of her cancer, but will be up to Aydee for how she wants to continue to proceed through everything. I reviewed the current plan with the patient and the daughter and are amendable to following her progression. Admission Exam Per Admitting Provider General: awake, alert, cachectic, fatigued Head: Normocephalic, atraumatic ENT: PERRL, EOMI, no pharyngeal exudate, mucous membranes moist Neuro: AAO x 3, speech clear and appropriate, strength intact bilaterally 5/5, sensation intact and equal all extremities and dermatomes, no pronator drift Chest: equal rise and fall of the chest, no accessory muscle use, no heaves or thrills, Clear to auscultation, on room air, Cardiac: Regular rate and rhythm, telemetry reviewed, skin warm dry, cap refill <3 seconds, peripheral pules +2 no JVD, no murmur,no edema GI: tender to palpation upper quadrants, soft but tympanic, guarding, dressing covering GREGG wound no errythema or drainage, ostomy pink, draining green liquid stool semi formed : Spontaneously voiding, no pain, no CVA tenderness, Extremities: Normal inspection, no peripheral edema or erythema, calfs nontender to palpation Psych: fatigued and teary Skin: no rash or erythema Principal Diagnosis Small bowel obstruction Discharge Exam Constitutional + thin and + frail appearing Eyes + anicteric sclerae Respiratory normal respiratory effort; no respiratory distress Gastrointestinal (Abdomen) Inspection/Auscultation: + abdomen distended; + abdomen abnormal to inspection (Colostomy bag with stool present) Percussion/Palpation: abdomen soft; abdomen nontender and no guarding Musculoskeletal Extremities: + cyanosis Skin no rashes, warm and dry Neurologic moves all extremities and awake; no focal motor deficits Psychiatric A+Ox3, euthymic affect Lymphatic no lymphedema Discharge Data Allergies Allergy/AdvReac Type Severity Reaction Status Date / Time nickel Allergy Intermediate Rash Verified 03/04/21 11:16 venlafaxine AdvReac Intermediate Hypertensio Verified 03/04/21 11:16 n,Headache clarithromycin AdvReac Mild Nausea/Vomi Verified 03/04/21 11:16 ting codeine AdvReac Mild UPSET Verified 03/04/21 11:16 STOMACH hydrocodone AdvReac Mild Nausea/Vomi Verified 03/04/21 11:16 ting metronidazole [From Flagyl] AdvReac Mild Gastrointestinal Verified 03/04/21 11:16 Upset Consultations 03/04/21 11:46 ED Decision to Admit Stat 03/04/21 12:48 Consult General Surgery Routine 03/04/21 18:03 Consult Palliative Care Routine Ordered Studies 03/04/21 10:01 CT abd pelvis IV con only Stat IMPRESSION: 1. There again noted multiple small loculated peripherally enhancing fluid collections within the deep pelvis which demonstrate a mixed response compared to the prior study. A few these fluid collections have slightly decreased in size and some of the fluid collections of slightly increased in size. These likely represent abscesses. 2. A few mildly dilated fluid-filled loops of small bowel within the midabdomen with decompressed distal loops of small bowel. This likely represents a developing small bowel obstruction. The transition point is not clearly identified but is likely located within the deep pelvis. 3. Small moderate pericardial effusion which is new from the prior study. 4. There is postoperative change of distal colon resection with left lower quadrant colostomy. 5. Small focus of gas within the bladder lumen which is also new from the prior study. This could be due to prior catheterization or possibly a evolving fistula. 6. Decreased in size in the loculated fluid within the subcutaneous fat at the ostomy site. 7. Mild left hydronephrosis is likely related to the inflammatory process in the left pelvis. 8. Additional findings as above. 03/04/21 12:17 US venous doppler LE BI Routine IMPRESSION: 1. There is occlusive deep venous thrombosis seen within one of the duplicated left popliteal veins. This was nonocclusive on 02/04/2021. 2. The remaining deep veins of the left lower extremity are clear. 3. There is no sonographic evidence of deep venous thrombosis in the right lower extremity. Hospital Course (1) Goals of care, counseling/discussion: Aydee Burgos is a 80 year old female with metastatic lung adenocarcinoma admitted at [facility] from March 04-2020 due to abdominal pain, nausea and vomiting. She was diagnosed with a small bowel obstruction on CT treated conservatively due to metastatic lung adenocarcinoma with pelvic abscess. Subsequent improved although she has ongoing nausea. She is now tolerating a low fiber diet. Of note US venous doppler was also performed during her stay which showed her deep vein thromboses have enlarged while taking Xarelto therefore this treated with intravenous heparin during her admission and switched to Eliquis on discharge. Due to low normal blood pressure her torsemide has been discontinued. On discussion with palliative care she wished to be discharged home on hospice care due to ongoing poorly controlled symptoms and which to concentrate on treating her symptoms. She understands this involves coming off her antibiotics for her pelvic abscesses. (2) Partial bowel obstruction: (3) Abdominal abscess: (4) Compression fracture: (5) DVT (deep venous thrombosis): (6) Thrush: (7) Lung cancer metastatic to bone: (8) Malnutrition: (9) Hypertension: (10) COPD (chronic obstructive pulmonary disease): (11) Hypothyroidism: (12) Anemia: (13) Hypokalemia: (14) Hypomagnesemia: Total Time Total Time Spent Total Time Spent (In Minutes): 20 Total Time Includes: Examination of the Patient, Discharge Planning, Medication Reconciliation and Communication With Other Providers Discharge Plan Discharge Items Patient Disposition: Hospice - Home Reason For Visit: SBO Discharge Diagnosis: Small bowel obstruction Activity: Resume your previous activity Non-emergency contact: Primary Care Provider Call non-emergency contact if: you have any medication questions and your symptoms worsen Follow-up/Referrals: Zion Bartholomew MD [Primary Care Provider] - Diet: Low Fiber Addtl Attending Provider Instructions: You were admitted at [facility] from March 04 to 2020 due to abdominal pain, nausea and vomiting. You were diagnosed with a small bowel obstruction which was treated conservatively due to metastatic lung edie ocarcinoma with pelvic abscess and improved now you are tolerating a low fiber diet. DVT enlarged while taking Xarelto therefore this treated with intravenous heparin during your admission and switched to Eliquis on discharge. On discussion with palliative care you wished to be discharged to hospice care and this has been arranged at home on discharge for ongoing management. Recommend taking ondansetron regularly for ongoing nause. Kind regards, Dr Jayy Madrid Pending Studies at Discharge: No Stand-Alone Forms: [facility] Medications and DC Order Prescriptions: New ondansetron 4 mg tablet,disintegrating 4 mg PO QID Qty: 120 RF: 0 Eliquis 5 mg (74 tabs) tablets,dose pack See Rx Instructions .ROUTE .COMPLEX Qty: 74 RF: 0 Continued diazepam [Valium] 5 mg tablet See Rx Instructions PO .COMPLEX PRN (Reason: anxiety) Qty: 30 RF: 0 potassium chloride 10 mEq capsule, extended release See Rx Instructions PO BID RF: 0 folic acid 1 mg tablet 1 mg PO QAM RF: 0 magnesium oxide 400 mg magnesium tablet 400 mg PO BID RF: 0 fluconazole [Diflucan] 200 mg tablet 200 mg PO Q72H PRN (Reason: thrush) Qty: 5 RF: 0 metaxalone 800 mg tablet 400 - 800 mg PO TID PRN (Reason: muscle pain) Qty: 30 RF: 0 aspirin 81 mg Tablet,Delayed Release (Dr/Ec) 81 mg PO QAM RF: 0 levothyroxine [Synthroid] 100 mcg tablet 100 mcg PO DAILYBB RF: 0 calcitonin (salmon) 200 unit/actuation spray,non-aerosol 1 spray intranasal (ALT) QDL RF: 0 oxycodone 5 mg tablet 10 mg PO TID PRN (Reason: Pain) RF: 0 Discontinued torsemide 10 mg tablet 10 mg PO QAM RF: 0 Xarelto 20 mg tablet 20 mg PO HS RF: 0 Discharge Orders: Discharge Order (Routine); Ordered 03/10/21 Ordered By: Jayy Madrid Admission Data Admit Date/Time: 03/04/21 12:55 Attending Provider: Jayy Madrid Admit Provider: Willy Borges Primary Care Provider: Zion Bartholomew Other Providers: Justin Patel ; Hiral Guzmán Other Interventions: Discharge Summary Assessment (RN) Last Done: 03/10/21 10:31 Coding Level of Care Code D/C Day Management <30 mins Diagnoses Goals of care, counseling/discussion Z71.89 Partial bowel obstruction K56.690 Intestinal obstruction type: other intestinal obstruction Abdominal abscess Compression fracture DVT (deep venous thrombosis) I82.402 Affected thrombotic vein of extremity: unspecified vein of extremity Chronicity: acute DVT location: lower extremity Laterality: left Thrush B37.0 Lung cancer metastatic to bone C34.90; C79.51 Malnutrition E44.0 Malnutrition type: protein-calorie malnutrition Protein-calorie malnutrition severity: moderate Hypertension I10 Hypertension type: essential hypertension COPD (chronic obstructive pulmonary disease) J44.9 COPD type: unspecified COPD Hypothyroidism E03.9 Hypothyroidism type: acquired Anemia D64.9 Anemia type: unspecified type Hypokalemia E87.6 Hypomagnesemia E83.42
--- NOTE | 2021-03-18 08:41 | Coding Query ---
PRESSURE ULCER DOCUMENTATION To promote full compliance with coding requirements relating to patient care, physician participation is requested in all cases of tool and die engineer uncertainty. Please assist us with the question(s) below: Please specify the known or suspected type by placing an "X" within the parenthesis (x). A pressure ulcer of the Sacrum was documented beginning on Progress Note 03/06/21. If possible, please check the box that provides the specific stage of the pressure ulcer ( x) Stage I ( ) Stage II ( ) Stage III ( ) Stage IV ( ) Unstageable ( ) Unable to determine Was the pressure ulcer present on admission? Please check the appropriate box for the pressure ulcer: ( x) Present on admission ( ) Not present on admission ( ) Unable to be clinically determined Thank you Yu LEVIN
--- NOTE | 2021-03-18 08:55 | Coding Query ---
CODING QUERY To promote full compliance with coding requirements relating to patient care, provider participation is requested in all cases of director river restoration uncertainty. Please assist us with the question(s) below: Coding Question(s): There is documentation in the record and on Discharge Summary of Partial Bowel Obstruction likely secondary to adhesiona and intrapelvic abscesses with documentation in the Admission HPI of, "She had a CT scan performed of the abdomen in the EMD that revealed the chronic abscess which have varied in size with some decreasing and some increasing in size, but also revealed a likely developing SBO", and documentation in the Hospital Course under Abdominal Abscess of, "Initially started on Zosyn as broad coverage for pelvic abscesses and Gentamicin for history of Pseudomonas, however will revert back to Avycaz which is what she has been on at home-this will cover for previous Pseudomonas and the Pseudomonas growing in her urine -Continue Avycaz 2.5 g IV every 8 hours and will continue for at least 3 more weeks to make a total of 6 weeks treatment as she still has pelvic abscesses present on CT scan". Please specify below, in your clinical opinion, regarding the Pelvic Abscesses. ( ) Acute Pelvic Abscesses (X) Chronic Pelvic Abscesses ( ) Other Pelvic Abscesses. Please Specify ( ) Other Abscess, Please Specify Physician's Response(s): Thank you Yu Amaral Principal Diagnosis: "that condition established after study, to be chiefly responsible for occasioning the admission of the patient to the hospital for care." Co-Existing Principal Diagnosis: "when two or more diagnoses equally meet the criteria for principal diagnosis as determined by the circumstances of admission, diagnostic work up, and/or therapy provided, and the Alphabetic Index, Tabular List, or another coding guideline does not provide sequencing direction, any one of the diagnoses may be sequenced first." "When the physician has documented what appears to be a current diagnosis in the body of the record, but has not included the diagnosis in the final diagnostic statement, the physician should be asked whether the diagnosis should be added." (Source Coding Clinic 2 QTR90. p3-4) MTDD
== END 2021-03-10 11:38 | disposition hospice, home (50) | DRG 757 ==
LOC: ED 09:11 → SUATTDRO 12:55 → 2S 12:55 → 3W 03-06 15:47

== ENCOUNTER 2021-11-08 09:14 | Inpatient (IN) ==
[2021-11-08] MEDS ORDERED: MoRPHine SULFATE 2 MG/ML CARP IV STA (10:54)
[2021-11-08] MEDS ORDERED: SODIUM CHLORIDE 0.9% 1000ML 1,000 ML IV SCH (11:00)
[2021-11-08 11:57] LABS: Albumin Globulin Ratio 0.8 (0.9-2); Albumin Level 2.8 gm/dl (3.4-5.0); BUN Creatinine Ratio 18.8 (10-20); Bilirubin,Total 0.2 mg/dl (0.2-1.0); Calcium 8.6 mg/dl (8.5-10.1); Creatinine Clr Calc Pharmacy 46.2 ml/min; Est GFR (Non-African American) 82.8 ml/min; Globulin 3.7 gm/dl (2.5-4.0); Potassium 4.1 mmol/L (3.5-5.1); Total Protein 6.5 gm/dl (6.0-8.3)
--- NOTE | 2021-11-08 12:05 | XRay Report ---
XR hip RT 2V w pelvis CLINICAL HISTORY: fall, pain COMPARISON: CT of the abdomen and pelvis March 04, 2021. FINDINGS: Note is made of an acute comminuted moderately displaced intertrochanteric fracture of the right femur. Fracture is angulated. Left hip arthroplasty is noted. No additional acute fractures ar e identified. Sacroiliac joints and symphysis pubis are intact. IMPRESSION: Acute moderately displaced comminuted intertrochanteric fracture of the right femur. ACT 112: Negative or not required by law. Electronically signed by: Александр Garay M.D. 11/08/2021 12:04 PM
--- NOTE | 2021-11-08 12:07 | XRay Report ---
XR chest 1V portable CLINICAL HISTORY: weakness COMPARISON STUDY: Chest radiograph and chest CT February 04, 2021. FINDINGS: Left subclavian [id number] is in place. There are right neck surgical clips. Cardiac siz e is normal. No pneumothorax or pleural effusion is noted. There is emphysema. Interstitial thickenin g is unchanged. This is likely chronic. Mild bibasilar opacities are present. IMPRESSION: 1. Mild bibasilar opacities which favor atelectasis. 2. Emphysema. ACT 112: Negative or not required by law. Electronically signed by: Александр Garay M.D. 11/08/2021 12:06 PM
--- NOTE | 2021-11-08 12:17 | XRay Report ---
RIGHT SHOULDER 3 VIEWS HISTORY: Right shoulder pain. fall, pain COMPARISON: None. FINDINGS: There is no fracture or dislocation. Soft tissues are unremarkable. The right clavicle is i ntact. The bones are osteopenic. Stable 7 mm lucent lesion within the right humeral neck. IMPRESSION: No fracture or dislocation within the right shoulder. ACT 112: Negative or not required by law. Electronically signed by: Bao Alcala M.D. 11/08/2021 12:16 PM
[2021-11-08 12:28] LABS: Basophils # (auto) 0.03 K/uL (0-0.2); Basophils % (auto) 0.2 %; Eosinophils % (auto) 1.2 %; Hematocrit (blood only) 33.7 % (37-47); Hemoglobin 9.6 g/dL (12.0-16.0); Immature Granulocytes # (auto) 0.08 K/uL (0.00-0.02); Immature Granulocytes % (auto) 0.5 %; Lymphocytes # (auto) 0.88 K/uL (1.2-3.4); Lymphocytes % (auto) 5.3 %; Mean Corpuscular Hgb Conc 28.5 g/dL (32-36); Mean Corpuscular Volume 91.3 fL (80-100); Mean Platelet Volume 8.4 fL (7.4-10.4); Monocytes # (auto) 0.36 K/uL (0.11-0.59); Monocytes % (auto) 2.2 %; Neutrophils # (auto) 15.18 K/uL (1.4-6.5); Neutrophils % (auto) 90.6 %; Platelet Count 278 K/uL (130-400); RDW Coefficient of Variation 17.2 % (11.5-14.5); RDW Standard Deviation 57.4 fL (36.4-46.3); Red Blood Count 3.69 M/uL (4.2-5.4); White Blood Count 16.73 K/uL (4.8-10.8)
[2021-11-08] MEDS ORDERED: MoRPHine SULFATE 2 MG/ML CARP IV PRN (13:24)
--- NOTE | 2021-11-08 13:53 | Emergency Department Note ---
History of Present Illness General Chief complaint: Fall Stated complaint: FALL, HIP PAIN & SHOULDER PAIN Time Seen by Provider: 11/08/21 09:51 History of Present Illness Maximum Pain Intensity: 9 81-year-old female presents to the ED after a fall. The patient states that she tripped and fell on her right side. She is complaining of right hip and right shoulder pain. Denies striking her head or loss of consciousness. Denies any other complaints. Her pain is worse with movement. Home Medications Medication Instructions Recorded Confirmed Type apixaban 5 mg tablet (Eliquis) 5 mg PO BID #180 tab 04/07/21 11/08/21 Rx levothyroxine 100 mcg tablet 100 mcg PO DAILYBB #90 tab 10/27/21 11/08/21 Rx (Synthroid) alprazolam 0.5 mg disintegrating 0.5 mg PO Q4H PRN 11/08/21 11/08/21 History tablet haloperidol 5 mg tablet 2.5 mg PO Q4H PRN 11/08/21 11/08/21 History hyoscyamine sulfate 0.125 mg 0.125 mg SUBLINGUAL Q6H PRN 11/08/21 11/08/21 History sublingual tablet morphine concentrate 100 mg/5 mL 15 mg SUBLINGUAL Q4H PRN 11/08/21 11/08/21 History (20 mg/mL) oral solution pantoprazole 40 mg tablet,delayed 40 mg PO QAM 11/08/21 11/08/21 History release phenazopyridine 100 mg tablet 100 mg PO BID 11/08/21 11/08/21 History trazodone 100 mg tablet 150 mg PO HS 11/08/21 11/08/21 History zolpidem 5 mg tablet 5 mg PO HS 11/08/21 11/08/21 History Allergies Allergy/AdvReac Type Severity Reaction Status Date / Time nickel Allergy Intermediate Rash Verified 11/08/21 10:52 venlafaxine AdvReac Intermediate Hypertensio Verified 11/08/21 10:52 n,Headache clarithromycin AdvReac Mild Nausea/Vomi Verified 11/08/21 10:52 ting codeine AdvReac Mild UPSET Verified 11/08/21 10:52 STOMACH hydrocodone AdvReac Mild Nausea/Vomi Verified 11/08/21 10:52 ting metronidazole [From Flagyl] AdvReac Mild Gastrointestinal Verified 11/08/21 10:52 Upset Past Med/Surg History Medical History Abdominal wall fistula Abnormal electrocardiogram Adenocarcinoma, lung Adrenal cortical adenoma Anxiety Arthritis Ascites Biceps tendonitis Breast cancer metastasized to bone Cataract COVID-19 virus antibody negative Depression Diverticulitis Esophageal dyskinesia Essential hypertriglyceridemia Fatigue Gastritis History of bronchitis Hyperlipidemia Hypocalcemia Hypomagnesemia Hypothyroidism Intermittent hydrarthrosis of elbow Irritable bowel syndrome Lung cancer NEW DX Metastatic bone cancer radiation treatments completed 08/25/19. Nausea Olecranon bursitis Osteoarthritis Osteopenia Pathological fracture of left hip Pelvic abscess Pneumonia hx SBO (small bowel obstruction) SBO (small bowel obstruction) Sialoadenitis Small bowel obstruction Surgical wound, non healing Wound dehiscence Wound infection Surgical History History of cataract surgery RT/LEFT History of colonoscopy Dr. Veronica 12/2011 History of dilatation and curettage History of discectomy CERVICAL (GOOD ROM) History of repair of rotator cuff RT History of tooth extraction S/P section X 1 S/P hip replacement left. 07/02/2019. SAB with MAC. no issues. Status post Patricio procedure Surgery, elective Revision of [place] for stricture Surgery, elective 01/19/21 Partial proctectomy, takedown of enterocutaneous fistula, partial small bowel resection, repair of parastomal hernia Family History Family/Other Family history of diabetes mellitus Brother Family hx of colon cancer Mother , age 66 Diabetes Cancer ovarian Coronary heart disease had acute UT which led to her Sister Cancer Family/Other Breast cancer Father , age 49 Suicide Alcoholism Social History Smoking Status: Current every day smoker Tobacco Type: Cigarettes Age Started Using Tobacco: 21; packs per day: 0.5; Cigarettes Per Day: 10; Second Hand Exposure: No; Hx Alcohol Use: Yes Alcohol type: wine Hx Substance Use: Yes Last Used Substance: Unknown Last Used Substance Other:: 12/23/20 Substance Use Type Other:: medical Preferred Language: [place] Communication Ability: Effective Visual Impairment: No Limitations Hearing Ability: Normal [place] Diver Required: No Beliefs That Will Affect Care: None marital status: / Current Living Situation: Family Current Living Situation Comment: lives with grandson current occupational status: retired current occupation: worked at [employer] other: 1 daughter Feels Safe at Home: Yes Childhood Exposure to Second-Hand Smoke: Yes (both parents) caffeine: Yes Dental Care, Regularly: No Seatbelt Use: always Assistive Devices: Wheelchair Review of Systems A total of 10 systems reviewed and were otherwise negative Physical Exam Vital Signs Vital Signs - 24 hr 11/08/21 09:23 11/08/21 09:54 11/08/21 13:00 Temperature 36.9 C Temperature Source Oral Pulse Rate 125 H Pulse Rate [Finger] 121 H 127 H Pulse Rhythm Regular Pulse Rhythm [Finger] Regular Regular Pulse Strength Normal Pulse Strength [Finger] Normal Normal Respiratory Rate 20 20 18 Respiratory Effort / Characteristics Non-Labored Spontaneous Non-Labored Respiratory Depth Normal Normal Normal Respiratory Pattern Regular Regular Blood Pressure 99/50 L Blood Pressure [Left Arm] 101/53 L 106/50 L Blood Pressure Mean 66 Blood Pressure Mean [Left Arm] 69 68 Blood Pressure Position Lying Blood Pressure Position [Left Arm] Sitting Sitting Pulse Oximetry 92 96 96 Oxygen Delivery Method Nasal Cannula Nasal Cannula Oxygen Flow Rate 2 2.5 Sepsis Recent Fever Within 48 Hours No Sepsis New/Unexplained Change in Mental Status N/A Sepsis Action Taken by Nursing No Action Required CONSTITUTIONAL/VITAL SIGNS: Reviewed / noted above. GENERAL: Non-toxic in appearance. INTEGUMENTARY: Warm, dry, and [place]. HEAD: Normocephalic. EYES: without scleral icterus or trauma. ENT/OROPHARYNX: clear and moist. LYMPHADENOPATHY/NECK: Is supple without lymphadenopathy or meningismus. RESPIRATORY: Clear to auscultation bilaterally. No increased work of breathing. CARDIOVASCULAR: Regular rate and rhythm. GI/ABDOMEN: Soft and nontender. No organomegaly or pulsatile mass. EXTREMITIES: Warm and well perfused. There is a shortening and external rotation of the right hip with tenderness of the hip to palpation. There are some mild discomfort in the right shoulder but full range of motion and no deformity. BACK: No CVA tenderness. NEUROLOGICAL: Intact without focal deficits. PSYCHIATRIC: normal affect. MUSCULOSKELETAL: Normally developed with good muscle tone. TRIAGE NURSING DOCUMENTATION REVIEWED. Course Administered Medications Discontinued Medications Sodium Chloride (Nss 1000ml) 1,000 mls @ 999 mls/hr IV .Q1H1M JOSE E Stop: 11/08/21 12:00 Last Infusion: 11/08/21 12:23 Dose: 999 mls/hr Documented by: [id number] Admin: 11/08/21 11:22 Dose: 999 mls/hr Documented by: [id number] Morphine Sulfate (Morphine Sulfate 2 Mg/Ml Carp) 2 mg IV NOW STA Stop: 11/08/21 10:55 Last Admin: 11/08/21 11:20 Dose: 2 mg Documented by: [id number] Medical Decision Making Differential Diagnosis Differential includes close head injury, intracranial bleed, facial trauma, cervical spine trauma, chest and thoracic trauma, abdominal and intra-abdominal trauma, spine neurologic trauma, extremity trauma. Medical Records Attestation: I reviewed the patient's medical records. Home Medications Current Medication List: was personally reviewed by me Laboratory Data Attestation: I reviewed the patient's lab results. Result diagrams: 11/08/21 11:20 11/08/21 11:20 Lab Results 11/08/21 11/08/21 11/08/21 Range/Units 11:20 11:20 11:20 WBC 16.73 H (4.8-10.8) K/uL RBC 3.69 L (4.2-5.4) M/uL Hgb 9.6 L (12.0-16.0) g/dL Hct 33.7 L (37-47) % MCV 91.3 (80-100) fL MCH 26.0 (25-34) pg MCHC 28.5 L (32-36) g/dL RDW Std Deviation 57.4 H (36.4-46.3) fL RDW Coeff of Raymundo 17.2 H (11.5-14.5) % Plt Count 278 (130-400) K/uL MPV 8.4 (7.4-10.4) fL Immature Gran % (Auto) 0.5 % Neut % (Auto) 90.6 % Lymph % (Auto) 5.3 % Kemper % (Auto) 2.2 % Eos % (Auto) 1.2 % Baso % (Auto) 0.2 % Neut # (Auto) 15.18 H (1.4-6.5) K/uL Lymph # (Auto) 0.88 L (1.2-3.4) K/uL Kemper # (Auto) 0.36 (0.11-0.59) K/uL Eos # (Auto) 0.20 (0-0.5) K/uL Baso # (Auto) 0.03 (0-0.2) K/uL Immature Gran # (Auto) 0.08 H (0.00-0.02) K/uL Sodium 139 (136-145) mmol/L Potassium 4.1 (3.5-5.1) mmol/L Chloride 103 (98-107) mmol/L Carbon Dioxide 32 (21-32) mmol/L Anion Gap 4 (3-11) BUN 13 (6-23) mg/dl Creatinine 0.69 (0.6-1.2) mg/dl Est Cr Clr Drug Dosing 46.2 ml/min Est GFR ( Amer) 96.0 ml/min Est GFR (Non-Af Amer) 82.8 ml/min BUN/Creatinine Ratio 18.8 (10-20) Glucose 91 (70-99(Fasting)) mg/dl Calcium 8.6 (8.5-10.1) mg/dl Total Bilirubin 0.2 (0.2-1.0) mg/dl AST 12 L (13-39) U/L ALT 8 (7-52) U/L Alkaline Phosphatase 79 (34-104) U/L Total Creatine Kinase 22 L (26-192) U/L Total Protein 6.5 (6.0-8.3) gm/dl Albumin 2.8 L (3.4-5.0) gm/dl Globulin 3.7 (2.5-4.0) gm/dl Albumin/Globulin Ratio 0.8 L (0.9-2) TSH 1.432 (0.300-4.500) uIu/ml SARS-CoV-2, RNA, NAAT (NEGATIVE) 11/08/21 Range/Units 11:25 WBC (4.8-10.8) K/uL RBC (4.2-5.4) M/uL Hgb (12.0-16.0) g/dL Hct (37-47) % MCV (80-100) fL MCH (25-34) pg MCHC (32-36) g/dL RDW Std Deviation (36.4-46.3) fL RDW Coeff of Raymundo (11.5-14.5) % Plt Count (130-400) K/uL MPV (7.4-10.4) fL Immature Gran % (Auto) % Neut % (Auto) % Lymph % (Auto) % Kemper % (Auto) % Eos % (Auto) % Baso % (Auto) % Neut # (Auto) (1.4-6.5) K/uL Lymph # (Auto) (1.2-3.4) K/uL Kemper # (Auto) (0.11-0.59) K/uL Eos # (Auto) (0-0.5) K/uL Baso # (Auto) (0-0.2) K/uL Immature Gran # (Auto) (0.00-0.02) K/uL Sodium (136-145) mmol/L Potassium (3.5-5.1) mmol/L Chloride (98-107) mmol/L Carbon Dioxide (21-32) mmol/L Anion Gap (3-11) BUN (6-23) mg/dl Creatinine (0.6-1.2) mg/dl Est Cr Clr Drug Dosing ml/min Est GFR ( Amer) ml/min Est GFR (Non-Af Amer) ml/min BUN/Creatinine Ratio (10-20) Glucose (70-99(Fasting)) mg/dl Calcium (8.5-10.1) mg/dl Total Bilirubin (0.2-1.0) mg/dl AST (13-39) U/L ALT (7-52) U/L Alkaline Phosphatase (34-104) U/L Total Creatine Kinase (26-192) U/L Total Protein (6.0-8.3) gm/dl Albumin (3.4-5.0) gm/dl Globulin (2.5-4.0) gm/dl Albumin/Globulin Ratio (0.9-2) TSH (0.300-4.500) uIu/ml SARS-CoV-2, RNA, NAAT NEGATIVE (NEGATIVE) Imaging Data Radiologist's Impression: Hip/Pelvis X-Ray 11/08/21 09:55 XR hip RT 2V w pelvis CLINICAL HISTORY: fall, pain COMPARISON: CT of the abdomen and pelvis March 04, 2021. FINDINGS: Note is made of an acute comminuted moderately displaced intertrochanteric fracture of the right femur. Fracture is angulated. Left hip arthroplasty is noted. No additional acute fractures are identified. Sacroiliac joints and symphysis pubis are intact. IMPRESSION: Acute moderately displaced comminuted intertrochanteric fracture of the right femur. ACT 112: Negative or not required by law. Electronically signed by: Александр Garay M.D. 11/08/2021 12:04 PM Shoulder X-Ray 11/08/21 09:55 RIGHT SHOULDER 3 VIEWS HISTORY: Right shoulder pain. fall, pain COMPARISON: None. FINDINGS: There is no fracture or dislocation. Soft tissues are unremarkable. The right clavicle is intact. The bones are osteopenic. Stable 7 mm lucent lesion within the right humeral neck. IMPRESSION: No fracture or dislocation within the right shoulder. ACT 112: Negative or not required by law. Electronically signed by: Bao Alcala M.D. 11/08/2021 12:16 PM Chest X-Ray 11/08/21 10:56 XR chest 1V portable CLINICAL HISTORY: weakness COMPARISON STUDY: Chest radiograph and chest CT February 04, 2021. FINDINGS: Left subclavian [id number] is in place. There are right neck surgical clips. Cardiac size is normal. No pneumothorax or pleural effusion is noted. There is emphysema. Interstitial thickening is unchanged. This is likely chronic. Mild bibasilar opacities are present. IMPRESSION: 1. Mild bibasilar opacities which favor atelectasis. 2. Emphysema. ACT 112: Negative or not required by law. Electronically signed by: Александр Garay M.D. 11/08/2021 12:06 PM ECG Data Additional Comments: Twelve-lead EKG: Per my interpretation shows a sinus tachycardia rate of 125. No ST elevation. No PVCs. Normal QTC. 81-year-old female presents with right hip fracture after trip and fall at home. MDM Narrative 81-year-old female presents with right hip fracture after fall. X-ray of the right shoulder and chest x-ray did not show acute process. EKG shows sinus tachycardia rate 125. White blood cell count was 16. Chemistry panel was unremarkable. Covid test was negative. Patient does have metastatic lung cancer. She is a hospice patient. The hospitalist will see the patient for fu rther inpatient evaluation and care. Impression & Plan Closed right hip fracture, Fall Discharge Plan Visit Data Chief Complaint: Fall Stated Complaint: FALL, HIP PAIN & SHOULDER PAIN ED Provider: Dimitri Kamara Discharge Problem: Closed right hip fracture, Fall Patient Disposition: Being Evaluated by Hospitalist Forms Stand Alone Forms: [facility] Prescriptions Prescriptions: No Action Eliquis 5 mg tablet 5 mg PO BID Qty: 180 RF: 3 levothyroxine [Synthroid] 100 mcg tablet 100 mcg PO DAILYBB Qty: 90 RF: 0 haloperidol 5 mg tablet 2.5 mg PO Q4H PRN (Reason: nausea/agitation) RF: 0 morphine concentrate 100 mg/5 mL (20 mg/mL) solution 15 mg sublingual Q4H PRN (Reason: Pain) RF: 0 trazodone 100 mg tablet 150 mg PO HS RF: 0 phenazopyridine 100 mg tablet 100 mg PO BID RF: 0 pantoprazole 40 mg tablet,delayed release (DR/EC) 40 mg PO QAM RF: 0 hyoscyamine sulfate 0.125 mg tablet, sublingual 0.125 mg sublingual Q6H PRN (Reason: excess secretions) RF: 0 zolpidem 5 mg tablet 5 mg PO HS RF: 0 alprazolam 0.5 mg tablet,disintegrating 0.5 mg PO Q4H PRN (Reason: Anxiety) RF: 0 Referrals Referrals: Zion Bartholomew MD [Primary Care Provider] -
--- NOTE | 2021-11-08 14:11 | History & Physical Report ---
Date of Service November 08, 2021 Assessment & Plan (1) Pathological fracture, hip, unspecified, initial encounter for fracture: Plan: Right. Either osteoporotic, or very well could be pathologic from bone mets from her metastatic cancer. [place] [facility] who will operate tomorrow. NPO after MN tonight. Hold Eliquis -- last dose was evening of 11/07/21. Pain control -- tylenol 1gm TID scheduled; morphine IV prn. Dexamethasone for #2 will help to some degree with pain/inflammation as well. Gentle fluids x 1 liter overnight. Cardiopulmonary risk is obviously very high due to advanced lung disease, stage 4 cancer, DVT/PE risk, etc -- but surgical repair is for palliative purposes to relieve pain and suffering, with goal of getting her home once again with hospice at the conclusion of this stay. (2) COPD with exacerbation: Plan: Dexamethasone 6mg IV daily. Doxycycline 100mg IV BID. Scheduled combivent QID. Hycodan prn. Mucinex BID. NC O2. (3) Stage 4 lung cancer: Plan: On hospice at home with her daughter since 2020. Goal is to return home with hospice post-discharge if at all possible. 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 Would recommend placing ostomy bag over the site. Daughter reports changing the dressings 3-4x's each day. Even with dressings in place stool leaks all over the abdominal wall. Ostomy bag will collect this a bit better. (5) Tachycardia: Plan: Suspect 2nd to pain, advanced lung disease, etc. PE is theoretically possible but she has been on full-strength anticoagulation at home with Eliquis. She has h/o pericardial effusion - likely malignant - this could be present and certainly worse than previous. Would not pursue work-up such as CTA chest, echo, etc. (6) Hematuria: Plan: Reported by pt's daughter. Would not pursue work-up given hospice status. Patient will have montaño during this stay. (7) Abdominal abscess: Plan: Patient with prior h/o numerous intra-abdominal abscesses. CTs from spring 2020 showed such. Was receiving antibiotics for them during that time, then ultimately d/c due to transitioning to hospice. Has had intermittent fevers for weeks/months per daughter - low-grade - could be fevers from these abscesses, or her cancer, or other. Simply treat any abdominal pain with pain meds. Would not pursue work-up. (8) History of DVT (deep vein thrombosis): Plan: holding eliquis for #1 above. resume post-op when acceptable with orthopedics. 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 continue ostomy care. (10) Cigarette smoker: Plan: Nicoderm patch 14mg/day. (11) Chronic kidney disease, stage 3a: (12) Severe protein-calorie malnutrition: Plan: 2nd to stage 4 cancer. (13) Hypothyroidism: Plan: cont synthroid. TSH today wnl. (14) Depression: Plan: cont home meds including sleep aids. (15) DVT prophylaxis: Plan: post-op resume her home Eliquis Plan: care was briefly discussed with on-call orthopedics, Dr Nikunj Oshea admit to orthopedic floor daughter updated at bedside during the admission process History of Present Illness Chief Complaint: fall, right hip pain Primary Care Provider: Zion Bartholomew MD Unfortunate 81yo female with chronic hypoxic respiratory failure 2nd to COPD and lung cancer, ongoing tobacco dependence, stage 4 lung ca, intra-abdominal abscesses, enterocutaneous fistula, colostomy status, and current hospice status who presents from home after suffering a fall this am in her living room. Patient has been on hospice since spring 2020 and over the last few weeks she has had no major changes in her overall health. This am, while walking to her couch, she simply tripped/fell/lost her footing and landed on the ground. Her right shoulder and right hip bore the brunt of the impact. She had immediate pain in these 2 locations and was unable to get up off the floor. She is not sure if she hit her head. Preceding the fall she denies any dizziness, lightheadedness, chest pain or other cardiopulmonary symptoms. In addition, for the past 24 hours, she has had worsening cough above her usual baseline. She feels mildly more short of breath than baseline. She is wheezing. Denies any fever yesterday/today, but does get intermittent fevers to about 100 degrees 1-2x's a week. They have attributed these to her intra-abdominal abscesses. These fevers are chronic. Denies any sick contacts. The hospice nurses who come to her home are masked at all times. Finally, both she and her daughter confirm they wish to proceed with ORIF of the right hip fracture for pain control/palliative purposes, and their goal is for her to return home with hospice if at all possible. She has been using liquid morphine prn for abdominal pain, and uses it at bedtime scheduled. Allergies Allergy/AdvReac Type Severity Reaction Status Date / Time nickel Allergy Intermediate Rash Verified 11/08/21 10:52 venlafaxine AdvReac Intermediate Hypertensio Verified 11/08/21 10:52 n,Headache clarithromycin AdvReac Mild Nausea/Vomi Verified 11/08/21 10:52 ting codeine AdvReac Mild UPSET Verified 11/08/21 10:52 STOMACH hydrocodone AdvReac Mild Nausea/Vomi Verified 11/08/21 10:52 ting metronidazole [From Flagyl] AdvReac Mild Gastrointestinal Verified 11/08/21 10:52 Upset Home Medications Medication Instructions Recorded Confirmed Type apixaban 5 mg tablet (Eliquis) 5 mg PO BID #180 tab 04/07/21 11/08/21 Rx levothyroxine 100 mcg tablet 100 mcg PO DAILYBB #90 tab 10/27/21 11/08/21 Rx (Synthroid) alprazolam 0.5 mg disintegrating 0.5 mg PO Q4H PRN 11/08/21 11/08/21 History tablet haloperidol 5 mg tablet 2.5 mg PO Q4H PRN 11/08/21 11/08/21 History hyoscyamine sulfate 0.125 mg 0.125 mg SUBLINGUAL Q6H PRN 11/08/21 11/08/21 History sublingual tablet morphine concentrate 100 mg/5 mL 15 mg SUBLINGUAL Q4H PRN 11/08/21 11/08/21 History (20 mg/mL) oral solution pantoprazole 40 mg tablet,delayed 40 mg PO QAM 11/08/21 11/08/21 History release phenazopyridine 100 mg tablet 100 mg PO BID 11/08/21 11/08/21 History trazodone 100 mg tablet 150 mg PO HS 11/08/21 11/08/21 History zolpidem 5 mg tablet 5 mg PO HS 11/08/21 11/08/21 History Past Med/Surg History Medical History Abdominal wall fistula Abnormal electrocardiogram Adenocarcinoma, lung Adrenal cortical adenoma Anxiety Arthritis Ascites Biceps tendonitis Breast cancer metastasized to bone Cataract Depression Diverticulitis Esophageal dyskinesia Essential hypertriglyceridemia Fatigue Gastritis History of bronchitis Hyperlipidemia Hypocalcemia Hypomagnesemia Hypothyroidism Intermittent hydrarthrosis of elbow Irritable bowel syndrome Lung cancer stage 4 Metastatic bone cancer radiation treatments completed 08/25/19. Nausea Olecranon bursitis Osteoarthritis Osteopenia Pathological fracture of left hip Pelvic abscess Pneumonia hx Sialoadenitis Small bowel obstruction Surgical wound, non healing Wound dehiscence Wound infection Surgical History History of cataract surgery RT/LEFT History of colonoscopy Dr. Veronica 12/2011 History of dilatation and curettage History of discectomy CERVICAL (GOOD ROM) History of repair of rotator cuff RT History of tooth extraction S/P section X 1 S/P hip replacement left. 07/02/2019. SAB with MAC. no issues. Status post Patricio procedure Surgery, elective Revision of Meeks for stricture Surgery, elective 01/19/21 Partial proctectomy, takedown of enterocutaneous fistula, partial small bowel resection, repair of parastomal hernia Family History Family/Other Family history of diabetes mellitus Brother Family hx of colon cancer Mother , age 66 Diabetes Cancer ovarian Coronary heart disease had acute [place] which led to her Sister Cancer Family/Other Breast cancer Father , age 49 Suicide Alcoholism Social History Smoking Status: Current every day smoker Tobacco Type: Cigarettes Age Started Using Tobacco: 21; packs per day: 0.5; Cigarettes Per Day: 10; Second Hand Exposure: Yes; Do You Dip or Chew Tobacco: No; Tobacco Cessation Education Requested by Patient: No Hx Alcohol Use: No Hx Substance Use: Yes Last Used Substance: Unknown Last Used Substance Other:: 12/23/20 Substance Use Type Other:: medical Preferred Language: Arabic Communication Ability: Effective Visual Impairment: No Limitations Hearing Ability: Normal Jig Borer Required: No Beliefs That Will Affect Care: None marital status: / Current Living Situation: Family Current Living Situation Comment: lives with daughter current occupational status: retired current occupation: worked at [employer] ([employer] How many Children do You have: 1 Other Information That Helps Us Care for You: No other: 1 daughter Feels Safe at Home: Yes Safety Concerns: Feels Safe At This Time Childhood Exposure to Second-Hand Smoke: Yes (both parents) caffeine: Yes Dental Care, Regularly: No Seatbelt Use: always Assistive Devices: None Review of Systems Review of Systems: gen - no fevers/chills last 24 hours; occasional low-grade fever as mentioned in HPI; weight loss - slow, over time; eating ok per daughter eyes - no visual change today HENT - no loss of taste/smell; no dysphagia; no sore throat or nasal congestion neck - denies posterior neck pain from the fall CV - no chest pain pulm - cough, congestion, wheezing, dyspnea above her baseline last 24 hours GI - intermittent abdominal pain requiring morphine elixir at home; no vomiting; normal stool output via ostomy; constant drainage from her enterocutaneous fistula - intermittent gross hematuria, occasional dysuria musculo - severe right hip pain; right shoulder pain; right upper chest wall pain psych - denies depression skin - no rash endo - denies diabetes neuro - denies headache Physical Exam Physical Exam: gen - very frail appearing, thin/cachectic, no acute distress eyes - PERRL mouth - MMM neck - no JVD; no pain to palpation over cervical spine posteriorly heart - tachy, s1 s2, no murmur lungs - b/l wheezes, no rales chest - mild tenderness to right upper chest near the clavicle, no deformity; port - left upper chest - clean abd - soft, NT, ND, BS+, colostomy bag Left abdomen with brown stool; fistula tract/opening lower abdomen in the midline with brown drainage ext - no edema, pulses 1+ b/l skin - no rash; no bruises musculo - right leg is externally rotated and shortened 2nd hip fracture; right shoulder - passive ROM leads to no pain/tenderness psych - a/o x 3 lymph - no cervical lymph nodes Results & Data Results & Data ([facility]) Vital Signs (Past 12 Hours) Vital Signs Temp Pulse Pulse Resp BP BP Pulse Ox 11/08/21 13:00 127 H 18 106/50 L 96 11/08/21 09:54 121 H 20 101/53 L 96 11/08/21 09:23 36.9 C 125 H 20 99/50 L 92 Laboratory Results Laboratory Results - last 24 hr 11/08/21 11/08/21 11/08/21 11:20 11:20 11:20 WBC 16.73 H RBC 3.69 L Hgb 9.6 L Hct 33.7 L MCV 91.3 MCH 26.0 MCHC 28.5 L RDW Std Deviation 57.4 H RDW Coeff of Raymundo 17.2 H Plt Count 278 MPV 8.4 Immature Gran % (Auto) 0.5 Neut % (Auto) 90.6 Lymph % (Auto) 5.3 [place] % (Auto) 2.2 Eos % (Auto) 1.2 Baso % (Auto) 0.2 Neut # (Auto) 15.18 H Lymph # (Auto) 0.88 L [place] # (Auto) 0.36 Eos # (Auto) 0.20 Baso # (Auto) 0.03 Immature Gran # (Auto) 0.08 H PT INR APTT PTT Ratio Sodium 139 Potassium 4.1 Chloride 103 Carbon Dioxide 32 Anion Gap 4 BUN 13 Creatinine 0.69 Est Cr Clr Drug Dosing 46.2 Est GFR ( Amer) 96.0 Est GFR (Non-Af Amer) 82.8 BUN/Creatinine Ratio 18.8 Glucose 91 Calcium 8.6 Total Bilirubin 0.2 AST 12 L ALT 8 Alkaline Phosphatase 79 Total Creatine Kinase 22 L Total Protein 6.5 Albumin 2.8 L Globulin 3.7 Albumin/Globulin Ratio 0.8 L TSH 1.432 SARS-CoV-2, RNA, NAAT Blood Type Antibody Screen 11/08/21 11/08/21 11/08/21 11:25 13:56 13:56 WBC RBC Hgb Hct MCV MCH MCHC RDW Std Deviation RDW Coeff of Raymundo Plt Count MPV Immature Gran % (Auto) Neut % (Auto) Lymph % (Auto) [place] % (Auto) Eos % (Auto) Baso % (Auto) Neut # (Auto) Lymph # (Auto) [place] # (Auto) Eos # (Auto) Baso # (Auto) Immature Gran # (Auto) PT 10.3 INR 1.0 APTT 29.6 PTT Ratio 1.1 Sodium Potassium Chloride Carbon Dioxide Anion Gap BUN Creatinine Est Cr Clr Drug Dosing Est GFR ( Amer) Est GFR (Non-Af Amer) BUN/Creatinine Ratio Glucose Calcium Total Bilirubin AST ALT Alkaline Phosphatase Total Creatine Kinase Total Protein Albumin Globulin Albumin/Globulin Ratio TSH SARS-CoV-2, RNA, NAAT NEGATIVE Blood Type Pending Antibody Screen Pending Diagnostic Findings Hip/Pelvis X-Ray 11/08/21 09:55 XR hip RT 2V w pelvis CLINICAL HISTORY: fall, pain COMPARISON: CT of the abdomen and pelvis March 04, 2021. FINDINGS: Note is made of an acute comminuted moderately displaced intertrochanteric fracture of the right femur. Fracture is angulated. Left hip arthroplasty is noted. No additional acute fractures are identified. Sacroiliac joints and symphysis pubis are intact. IMPRESSION: Acute moderately displaced comminuted intertrochanteric fracture of the right femur. ACT 112: Negative or not required by law. Electronically signed by: Александр Garay M.D. 11/08/2021 12:04 PM Shoulder X-Ray 11/08/21 09:55 RIGHT SHOULDER 3 VIEWS HISTORY: Right shoulder pain. fall, pain COMPARISON: None. FINDINGS: There is no fracture or dislocation. Soft tissues are unremarkable. The right clavicle is intact. The bones are osteopenic. Stable 7 mm lucent lesion within the right humeral neck. IMPRESSION: No fracture or dislocation within the right shoulder. ACT 112: Negative or not required by law. Electronically signed by: Bao Alcala M.D. 11/08/2021 12:16 PM Chest X-Ray 11/08/21 10:56 XR chest 1V portable CLINICAL HISTORY: weakness COMPARISON STUDY: Chest radiograph and chest CT February 04, 2021. FINDINGS: Left subclavian [id number] is in place. There are right neck surgical clips. Cardiac size is normal. No pneumothorax or pleural effusion is noted. There is emphysema. Interstitial thickening is unchanged. This is likely chronic. Mild bibasilar opacities are present. IMPRESSION: 1. Mild bibasilar opacities which favor atelectasis. 2. Emphysema. ACT 112: Negative or not required by law. Electronically signed by: Александр Garay M.D. 11/08/2021 12:06 PM EKG - my reading - sinus tach, anterior Q waves, no acute ST changes Code Status & VTE Plan Code Status DNR/DNI PG Care Time/CCT Total # of Minutes Spent Total Time Spent with Patient: Total time spent is greater than 50% in coordination of care (as documented) at patient's floor/unit and/or counseling patient: Coding Level of Care Code 05291 Initial Inpt Care Lvl 3 Diagnoses Pathological fracture, hip, unspecified, initial encounter for fracture M84.459A COPD with exacerbation J44.1 Stage 4 lung cancer C34.90 Abdominal wall fistula K63.2 Tachycardia R00.0 Hematuria R31.9 Abdominal abscess History of DVT (deep vein thrombosis) Z86.718 Colostomy status Z93.3 Cigarette smoker F17.210 Chronic kidney disease, stage 3a N18.3 Severe protein-calorie malnutrition E43 Hypothyroidism E03.9 Hypothyroidism type: acquired Depression F32.9 Active/Remission status: remission status unspecified Depression Type: major depressive disorder Major depression recurrence: unspecified whether recurrent DVT prophylaxis Z29.9 (1) Depression Active/Remission status: remission status unspecified Depression Type: major depressive disorder Major depression recurrence: unspecified whether recurrent Qualified Code(s): F32.9 - Major depressive disorder, single episode, unspecified (2) Hypothyroidism Hypothyroidism type: acquired Qualified Code(s): E03.9 - Hypothyroidism, unspecified
[2021-11-08 14:18] LABS: Partial Thromboplastin Ratio 1.1; Partial Thromboplastin Time 29.6 Seconds (21.0-31.0); Prothrombin Time 10.3 Seconds (9.0-12.0)
[2021-11-08 14:59] LABS: Appearance Urine Turbid (Clear); Bacteria Urine Automated 4+ (Negative); Bilirubin Urine Negative (Negative); Blood Urine 3+ (Negative); Color Urine Dark Yellow; Epithelial Cell Urine Auto >30 /lpf (0-5); Glucose Urine UA Negative (Negative); Ketones Urine Negative (Negative); Leukocyte Esterase Urine 3+ (Negative); Nitrite Urine Positive (Negative); Protein Urine 1+ (Negative); Specific Gravity Urine 1.013 (1.000-1.030); Urobilinogen Urine Negative (Negative); WBC Urine Automated >30 /hpf (0-5)
[2021-11-08 15:23] LABS: Cast Urine Automated >30 /lpf (0-5); RBC Urine Automated >30 /hpf (0-4)
[2021-11-08] MEDS: LIDOCAINE 5% 1 PATCH TD SCH (15:36)
--- NOTE | 2021-11-08 16:08 | CT Scan Report ---
CT head/brain wo con CLINICAL HISTORY: fall, ?head injury Technique: Contiguous axial CT images of the head were acquired from the base of the skull to the eugenio rubin without intravenous contrast administration. Images were viewed in brain, subdural and [facility]. Automated dose lowering techniques and/or adjustment according to patient size were utilized for this exam. Comparison: Comparison is made to CT head 02/04/2021 Findings: The ventricles, basal cisterns, and cerebral sulci are normal. There is no acute intracranial hemorrh age or evidence of acute territorial infarction. Neither mass effect, shift of the midline structures , nor abnormal extra-axial fluid collections are shown. Imaged portions of the paranasal sinuses and mastoid air cells are clear. The orbits appear normal. There are no acute fractures of the calvaria or scalp swelling. Impression: No acute intracranial hemorrhage, skull fractures, or scalp swelling. ACT 112: Negative or not required by law. Electronically signed by: Shawn Coronado M.D. 11/08/2021 4:07 PM
[2021-11-08] MEDS ORDERED: MAGNESIUM HYDROXIDE SUSP 30 ML UDC PO PRN (16:56)
[2021-11-08] MEDS ORDERED: bisacodyL 10 MG SUPP PR PRN (16:56)
[2021-11-08] MEDS ORDERED: NALOXONE HCL 0.4 MG/1 ML VIAL/CARP IV PRN (16:56)
[2021-11-08] MEDS ORDERED: IPRATROPIUM BROMIDE/ALBUTEROL respimat INH INH SCH (17:00)
[2021-11-08] MEDS ORDERED: haloperidoL 5 MG TAB PO PRN (17:01)
[2021-11-08] MEDS: D5W AND NSS 1,000 ML IV SCH (17:33)
[2021-11-08] MEDS: MoRPHine SULFATE 2 MG/ML CARP IV PRN ×2 (17:34→19:45)
[2021-11-08] MEDS: NICOTINE 14 MG/24 HR PATCH TD SCH (18:00)
[2021-11-08] MEDS: dexAMETHasone 6 MG in SYRINGE 0 ML IV SCH (18:01)
[2021-11-08] MEDS: DOXYCYCLINE HYCLATE 100 MG in DEXTROSE 5% 100 ML IV SCH (18:01)
[2021-11-08] MEDS: ALBUTEROL HFA 8 GM INHALER INH SCH ×2 (18:19→19:01)
[2021-11-08] MEDS: IPRATROPIUM BROMIDE HFA INHALER INH SCH ×2 (18:20→19:01)
[2021-11-08] MEDS: ACETAMINOPHEN 500 MG TAB PO SCH (22:16)
[2021-11-08] MEDS: ZOLPIDEM TARTRATE 5 MG TAB PO SCH (22:16)
[2021-11-08] MEDS: guaiFENesin 600 MG TABCR PO SCH (22:17)
[2021-11-08] MEDS: traZODone HCL 50 MG TAB PO SCH (22:18)
[2021-11-08] MEDS: DOCUSATE SODIUM/SENNA 50/8.6MG TAB PO SCH (22:19)
[2021-11-08] MEDS: PHENAZOPYRIDINE HCL 100 MG TAB PO SCH (22:19)
[2021-11-08] MEDS: MoRPHine SULFATE 5 MG/0.25 ML UDP SL SCH (22:24)
[2021-11-09] MEDS: MoRPHine SULFATE 2 MG/ML CARP IV PRN ×2 (04:50→07:22)
[2021-11-09] MEDS: DOXYCYCLINE HYCLATE 100 MG in DEXTROSE 5% 100 ML IV SCH ×2 (05:01→22:43)
[2021-11-09] MEDS ORDERED: ALBUT/IPRATROP 3MG/0.5MG NEB 3 ML VIAL NEB STA ×2 (05:10→18:43)
[2021-11-09] MEDS: LEVOTHYROXINE SODIUM 100 MCG TABLET PO SCH (05:54)
[2021-11-09] MEDS ORDERED: TRANEXAMIC ACID / 0.7% NACL 1,000 MG/100 ML BAG IV SCH ×2 (06:00→06:30)
[2021-11-09] MEDS ORDERED: ceFAZolin 2000MG 2,000 MG/15 ML SYR IV SCH (06:00)
--- NOTE | 2021-11-09 06:50 | Electrocardiogram Report ---
Test Reason : Blood Pressure : / mmHG Vent. Rate : 125 BPM Atrial Rate : 125 BPM P-R Int : 150 ms QRS Dur : 068 ms QT Int : 304 ms P-R-T Axes : 077 -59 062 degrees QTc Int : 438 ms Sinus tachycardia Left axis deviation Low voltage QRS Poor R wave progression, consider anterior CA vs. lead placement vs. LVH Cannot rule out Inferior infarct Abnormal ECG When compared with ECG of 04-MAR-2021 10:10, Minimal criteria for Anterior infarct are now Present Confirmed by Jarrod Sheldon ([id number]) on 11/09/2021 6:50:00 AM Referred By: REFERRED SELF Confirmed By:Jarrod Sheldon
[2021-11-09] MEDS: ALBUTEROL HFA 8 GM INHALER INH SCH ×4 (07:31→21:22)
[2021-11-09] MEDS: IPRATROPIUM BROMIDE HFA INHALER INH SCH ×4 (07:31→21:22)
[2021-11-09] MEDS: NICOTINE 14 MG/24 HR PATCH TD SCH (08:17)
[2021-11-09] MEDS: PANTOprazole 40 MG TAB PO SCH (08:18)
[2021-11-09] MEDS: PHENAZOPYRIDINE HCL 100 MG TAB PO SCH ×2 (08:18→21:16)
[2021-11-09] MEDS: ALPRAZolam 0.5 MG TABLET PO PRN (08:18)
[2021-11-09] MEDS: dexAMETHasone 6 MG in SYRINGE 0 ML IV SCH (08:19)
[2021-11-09] MEDS: guaiFENesin 600 MG TABCR PO SCH ×2 (08:19→21:18)
[2021-11-09] MEDS: ACETAMINOPHEN 500 MG TAB PO SCH ×3 (08:19→21:16)
--- NOTE | 2021-11-09 08:46 | Anesthesiology Consultation ---
Date of Service November 09, 2021 Assessment & Plan (1) Encounter for pre-operative examination: Chart Review Chart Review: Acceptable Risk for Surgery and Patient NOT seen in Pre Admission Testing Consults Requested none History Height/Weight Height: 5 ft 3.5 in Weight: 53.524 kg Allergies Allergy/AdvReac Type Severity Reaction Status Date / Time nickel Allergy Intermediate Rash Verified 11/08/21 10:52 venlafaxine AdvReac Intermediate Hypertensio Verified 11/08/21 10:52 n,Headache clarithromycin AdvReac Mild Nausea/Vomi Verified 11/08/21 10:52 ting codeine AdvReac Mild UPSET Verified 11/08/21 10:52 STOMACH hydrocodone AdvReac Mild Nausea/Vomi Verified 11/08/21 10:52 ting metronidazole [From Flagyl] AdvReac Mild Gastrointestinal Verified 11/08/21 10:52 Upset Medications Home Medications Medication Instructions Recorded Confirmed Last Taken apixaban 5 mg tablet (Eliquis) 5 mg PO BID #180 tab 04/07/21 11/08/21 11/07/21 levothyroxine 100 mcg tablet 100 mcg PO DAILYBB #90 tab 10/27/21 11/08/21 11/07/21 (Synthroid) alprazolam 0.5 mg disintegrating 0.5 mg PO Q4H PRN 11/08/21 11/08/21 11/07/21 18:00 tablet haloperidol 5 mg tablet 2.5 mg PO Q4H PRN 11/08/21 11/08/21 11/07/21 hyoscyamine sulfate 0.125 mg 0.125 mg SUBLINGUAL Q6H PRN 11/08/21 11/08/21 11/08/21 09:00 sublingual tablet morphine concentrate 100 mg/5 mL 15 mg SUBLINGUAL Q4H PRN 11/08/21 11/08/21 11/08/21 09:00 (20 mg/mL) oral solution pantoprazole 40 mg tablet,delayed 40 mg PO QAM 11/08/21 11/08/21 11/07/21 release phenazopyridine 100 mg tablet 100 mg PO BID 11/08/21 11/08/21 11/07/21 trazodone 100 mg tablet 150 mg PO HS 11/08/21 11/08/21 11/07/21 zolpidem 5 mg tablet 5 mg PO HS 11/08/21 11/08/21 11/07/21 Active Medications Generic Name Dose Route Start Last Admin Trade Name Pedro Luis PRN Reason Stop Dose Admin Acetaminophen 1,000 mg 11/08/21 21:00 11/09/21 08:19 Acetaminophen 500 Mg Tab PO 12/08/21 20:59 1,000 mg TID JOSE E Administration Albuterol 1 puffs 11/08/21 16:56 11/09/21 07:31 Albuterol Hfa 8 Gm Inhaler INH 12/08/21 16:55 1 puffs QIDR JOSE E Administration Alprazolam 0.5 mg 11/08/21 17:01 11/09/21 08:18 Alprazolam 0.5 Mg Tablet PO 12/08/21 17:00 0.5 mg Q4H PRN Administration Anxiety Guaifenesin 600 mg 11/08/21 21:00 11/09/21 08:19 Guaifenesin 600 Mg Tabcr PO 12/08/21 20:59 600 mg Q12 JOSE E Administration Dextrose/Sodium Chloride 1,000 mls @ 50 mls/hr 11/08/21 16:56 11/08/21 17:33 D5w And Nss IV 11/10/21 08:55 50 mls/hr .Q20H JOSE E Administration Dexamethasone 6 mg/ Syringe 1.5 mls @ 1 mls/min 11/08/21 18:00 11/09/21 08:19 IV 12/08/21 17:59 1 mls/min DAILY JOSE E Administration Doxycycline Hyclate 100 mg/ 110 mls @ 50 mls/hr 11/08/21 18:00 11/09/21 05:01 Dextrose IV 11/13/21 17:59 50 mls/hr Q12H JOSE E Administration Ipratropium Loraine 1 puffs 11/08/21 16:56 11/09/21 07:31 Ipratropium Loraine Hfa Inhaler INH 12/08/21 16:55 1 puffs QIDR JOSE E Administration Levothyroxine Sodium 100 mcg 11/09/21 06:30 11/09/21 05:54 Levothyroxine Sodium 100 Mcg Tablet PO 12/09/21 06:29 100 mcg DAILYBB JOSE E Administration Lidocaine 2 patch 11/08/21 14:15 11/08/21 15:36 Lidocaine 5% 1 Patch TD 12/08/21 14:14 2 patch DAILY JOSE E Administration Miscellaneous 1 ea 11/08/21 23:00 11/08/21 23:51 Remove Lidoderm Patch N/A 12/08/21 22:59 1 ea DAILY@2100 JOSE E Administration Miscellaneous 1 ea 11/09/21 08:59 11/09/21 07:25 Remove Nicoderm Patch N/A 12/09/21 08:58 1 ea DAILY@0859 JOSE E Administration Morphine Sulfate 15 mg 11/08/21 21:00 11/08/21 22:24 Morphine Sulfate 5 Mg/0.25 Ml Udp SL 11/22/21 20:59 15 mg HS JOSE E Administration Morphine Sulfate 2 mg 11/08/21 16:56 11/09/21 07:22 Morphine Sulfate 2 Mg/Ml Carp IV 11/22/21 16:55 2 mg Q2H PRN Administration Pain Nicotine 14 mg 11/08/21 16:56 11/09/21 08:17 Nicotine 14 Mg/24 Hr Patch TD 12/08/21 16:55 14 mg QAM JOSE E Administration Pantoprazole Sodium 40 mg 11/09/21 09:00 11/09/21 08:18 Pantoprazole 40 Mg Tab PO 12/09/21 08:59 Not Given QAM JOSE E Phenazopyridine HCl 100 mg 11/08/21 21:00 11/09/21 08:18 Phenazopyridine Hcl 100 Mg Tab PO 12/08/21 20:59 100 mg BID JOSE E Administration Senna/Docusate Sodium 2 tab 11/08/21 21:00 11/08/21 22:19 Docusate Sodium/Senna 50/8.6mg Tab PO 12/08/21 20:59 2 tab HS JOSE E Administration Trazodone HCl 150 mg 11/08/21 21:00 11/08/21 22:18 Trazodone Hcl 50 Mg Tab PO 12/08/21 20:59 150 mg HS JOSE E Administration Zolpidem Tartrate 5 mg 11/08/21 21:00 11/08/21 22:16 Zolpidem Tartrate 5 Mg Tab PO 12/08/21 20:59 5 mg HS JOSE E Administration NPO Date Last Intake of Fluids: 11/09/21 Time Last Intake of Fluids: 00:00 Date Last Intake of Solids: 11/08/21 Past Medical History Medical History Abdominal wall fistula Abnormal electrocardiogram Adenocarcinoma, lung Adrenal cortical adenoma Anxiety Arthritis Ascites Biceps tendonitis Breast cancer metastasized to bone Cataract Depression Diverticulitis Esophageal dyskinesia Essential hypertriglyceridemia Fatigue Gastritis History of bronchitis Hyperlipidemia Hypocalcemia Hypomagnesemia Hypothyroidism Intermittent hydrarthrosis of elbow Irritable bowel syndrome Lung cancer stage 4 Metastatic bone cancer radiation treatments completed 08/25/19. Nausea Olecranon bursitis Osteoarthritis Osteopenia Pathological fracture of left hip Pelvic abscess Pneumonia hx Sialoadenitis Small bowel obstruction Surgical wound, non healing Wound dehiscence Wound infection Past Family History Family History Family/Other Family history of diabetes mellitus Brother Family hx of colon cancer Mother , age 66 Diabetes Cancer ovarian Coronary heart disease had acute [place] which led to her Sister Cancer Family/Other Breast cancer Father , age 49 Suicide Alcoholism Past Surgical History Surgical History History of cataract surgery RT/LEFT History of colonoscopy Dr. Veronica 12/2011 History of dilatation and curettage History of discectomy CERVICAL (GOOD ROM) History of repair of rotator cuff RT History of tooth extraction S/P section X 1 S/P hip replacement left. 07/02/2019. SAB with MAC. no issues. Status post Patricio procedure Surgery, elective Revision of [place]eeks for stricture Surgery, elective 01/19/21 Partial proctectomy, takedown of enterocutaneous fistula, partial small bowel resection, repair of parastomal hernia Social History Smoking Status: Current every day smoker tobacco type: cigarettes Smoking cigarettes per day: 10 Do You Dip or Chew Tobacco: No Hx Alcohol Use: No Alcohol type: wine alcohol intake frequency: 0-2 drinks per day Hx Substance Use: Yes substance use type: marijuana Substance Use Type Other:: medical Last Used Substance: Unknown Last Used Substance Other:: 12/23/20 Physical Exam Vital Signs Last Vital Signs Temp 98.1 F 11/09/21 07:00 Pulse 94 H 11/09/21 07:30 Resp 20 11/09/21 07:30 BP 101/59 L 11/09/21 07:00 Pulse Ox 92 11/09/21 07:30 Testing Laboratory Results 11/08/21 11:20 11/08/21 11:20 PT 10.3 Seconds (9.0-12.0) 11/08/21 13:56 INR 1.0 (0.9-1.1) 11/08/21 13:56 APTT 29.6 Seconds (21.0-31.0) 11/08/21 13:56 Urine Color Dark Yellow 11/08/21 14:30 Urine Appearance Turbid (Clear) A 11/08/21 14:30 Urine pH 5.0 (4.5-7.5) 11/08/21 14:30 Ur Specific [place] 1.013 (1.000-1.030) 11/08/21 14:30 Urine Protein 1+ (Negative) H 11/08/21 14:30 Urine Glucose (UA) Negative (Negative) 11/08/21 14:30 Urine Ketones Negative (Negative) 11/08/21 14:30 Urine Nitrite Positive (Negative) A 11/08/21 14:30 Ur Leukocyte Esterase 3+ (Negative) H 11/08/21 14:30 Urine WBC (Auto) >30 /hpf (0-5) H 11/08/21 14:30 Urine RBC (Auto) >30 /hpf (0-4) H 11/08/21 14:30 U Hyaline Cast (Auto) >30 /lpf (0-5) H 11/08/21 14:30 U Epithel Cells (Auto) >30 /lpf (0-5) H 11/08/21 14:30 Urine Bacteria (Auto) 4+ (Negative) H 11/08/21 14:30 Blood Type O Positive 11/08/21 13:56 Antibody Screen NEGATIVE 11/08/21 13:56 Electrocardiogram Date: 11/08/21 Findings: + NSR @ left axis deviation Chest X-Ray Date: 11/08/21 Findings: + atelectasis Echocardiogram Date: 03/06/21 EF: 55-60 LV Function: normal
[2021-11-09] MEDS ORDERED: BUPIVACAINE 0.5 % 5 MG/1 ML PF 10ML VIAL ONE (08:50)
--- NOTE | 2021-11-09 09:00 | Orthopedic Consultation ---
Date of Service November 09, 2021 Assessment & Plan (1) Closed right hip fracture: She is npo. She was educated on this fracture and treatment options. She would like to proceed with surgical fixation of the fracture. Procedure was explained including risks, benefits, alternatives. Consent was obtained. We will plan on doing a IM nail of the right hip/femur today. Continue npo and pain control. History of Present Illness Reason for Consultation: . Requesting Physician: . Attending Physician: Gabrielle Moon MD .Aydee is a 81 year old patient, with stage 4 lung cancer and copd among multiple other medical problems, admitted with a right intertroch hip fracture. She sustained a fall at home yesterday injuring her hip. Xrays show a displaced intertroch fx. She does have some right shoulder pain as well. She has had previous shoulder surgery. Denies any hip pain prior to her fall. She had a left hip hemiarthroplasty about 3 years ago. Allergies Allergy/AdvReac Type Severity Reaction Status Date / Time nickel Allergy Intermediate Rash Verified 11/08/21 10:52 venlafaxine AdvReac Intermediate Hypertensio Verified 11/08/21 10:52 n,Headache clarithromycin AdvReac Mild Nausea/Vomi Verified 11/08/21 10:52 ting codeine AdvReac Mild UPSET Verified 11/08/21 10:52 STOMACH hydrocodone AdvReac Mild Nausea/Vomi Verified 11/08/21 10:52 ting metronidazole [From Flagyl] AdvReac Mild Gastrointestinal Verified 11/08/21 10:52 Upset Home Medications Medication Instructions Recorded Confirmed Type apixaban 5 mg tablet (Eliquis) 5 mg PO BID #180 tab 04/07/21 11/08/21 Rx levothyroxine 100 mcg tablet 100 mcg PO DAILYBB #90 tab 10/27/21 11/08/21 Rx (Synthroid) alprazolam 0.5 mg disintegrating 0.5 mg PO Q4H PRN 11/08/21 11/08/21 History tablet haloperidol 5 mg tablet 2.5 mg PO Q4H PRN 11/08/21 11/08/21 History hyoscyamine sulfate 0.125 mg 0.125 mg SUBLINGUAL Q6H PRN 11/08/21 11/08/21 History sublingual tablet morphine concentrate 100 mg/5 mL 15 mg SUBLINGUAL Q4H PRN 11/08/21 11/08/21 History (20 mg/mL) oral solution pantoprazole 40 mg tablet,delayed 40 mg PO QAM 11/08/21 11/08/21 History release phenazopyridine 100 mg tablet 100 mg PO BID 11/08/21 11/08/21 History trazodone 100 mg tablet 150 mg PO HS 11/08/21 11/08/21 History zolpidem 5 mg tablet 5 mg PO HS 11/08/21 11/08/21 History Past Med/Surg History Medical History Abdominal wall fistula Abnormal electrocardiogram Adenocarcinoma, lung Adrenal cortical adenoma Anxiety Arthritis Ascites Biceps tendonitis Breast cancer metastasized to bone Cataract Depression Diverticulitis Esophageal dyskinesia Essential hypertriglyceridemia Fatigue Gastritis History of bronchitis Hyperlipidemia Hypocalcemia Hypomagnesemia Hypothyroidism Intermittent hydrarthrosis of elbow Irritable bowel syndrome Lung cancer stage 4 Metastatic bone cancer radiation treatments completed 08/25/19. Nausea Olecranon bursitis Osteoarthritis Osteopenia Pathological fracture of left hip Pelvic abscess Pneumonia hx Sialoadenitis Small bowel obstruction Surgical wound, non healing Wound dehiscence Wound infection Surgical History History of cataract surgery RT/LEFT History of colonoscopy Dr. Veronica 12/2011 History of dilatation and curettage History of discectomy CERVICAL (GOOD ROM) History of repair of rotator cuff RT History of tooth extraction S/P section X 1 S/P hip replacement left. 07/02/2019. SAB with MAC. no issues. Status post Patricio procedure Surgery, elective Revision of [place] for stricture Surgery, elective 01/19/21 Partial proctectomy, takedown of enterocutaneous fistula, partial small bowel resection, repair of parastomal hernia Family History Family/Other Family history of diabetes mellitus Brother Family hx of colon cancer Mother , age 66 Diabetes Cancer ovarian Coronary heart disease had acute [place] which led to her Sister Cancer Family/Other Breast cancer Father , age 49 Suicide Alcoholism Social History Smoking Status: Current every day smoker Tobacco Type: Cigarettes Age Started Using Tobacco: 21; packs per day: 0.5; Cigarettes Per Day: 10; Second Hand Exposure: Yes; Do You Dip or Chew Tobacco: No; Tobacco Cessation Education Requested by Patient: No Hx Alcohol Use: No Hx Substance Use: Yes Last Used Substance: Unknown Last Used Substance Other:: 12/23/20 Substance Use Type Other:: medical Preferred Language: Fijian Communication Ability: Effective Visual Impairment: No Limitations Hearing Ability: Normal Consumer Product Advisor Required: No Beliefs That Will Affect Care: None marital status: / Current Living Situation: Family Current Living Situation Comment: lives with daughter current occupational status: retired current occupation: worked at [employer] How many Children do You have: 1 Other Information That Helps Us Care for You: No other: 1 daughter Feels Safe at Home: Yes Safety Concerns: Feels Safe At This Time Childhood Exposure to Second-Hand Smoke: Yes (both parents) caffeine: Yes Dental Care, Regularly: No Seatbelt Use: always Assistive Devices: None Review of Systems All systems reviewed & are unremarkable except as noted in HPI & below. Physical Exam . alert and oriented. NAD. She is coughing and sounds congested. Right arm: she can raise her arm overhead and has good shoulder, elbow, wrist rom. She is able to actively lift her left leg off the bed. Right leg is shortened and externally rotated. NVI. Able to DF/PF appropriately. Skin intact. Results & Data Results & Data Laboratory Results . Diagnostic Findings .Shoulder xrays show a lucent lesion in the proximal humerus. No fracture or dislocation hip and pelvis xrays show a displaced right intertroch fx. PG Care Time/CCT Total # of Minutes Spent Total Time Spent with Patient: Total time spent is greater than 50% in coordination of care (as documented) at patient's floor/unit and/or counseling patient: Coding Level of Care Code 95100 Inpt Consult Level 4 Diagnoses Closed right hip fracture S72.001A Encounter type: initial encounter (1) Closed right hip fracture Encounter type: initial encounter Qualified Code(s): S72.001A - Fracture of unspecified part of neck of right femur, initial encounter for closed fracture
[2021-11-09] MEDS: LIDOCAINE 5% 1 PATCH TD SCH (09:07)
[2021-11-09 09:35] LABS: Basophils # (auto) 0.01 K/uL (0-0.2); Basophils % (auto) 0.1 %; Hematocrit (blood only) 26.6 % (37-47); Hemoglobin 7.8 g/dL (12.0-16.0); Immature Granulocytes # (auto) 0.03 K/uL (0.00-0.02); Immature Granulocytes % (auto) 0.4 %; Lymphocytes # (auto) 0.28 K/uL (1.2-3.4); Mean Corpuscular Hemoglobin 25.7 pg (25-34); Mean Corpuscular Hgb Conc 29.3 g/dL (32-36); Mean Corpuscular Volume 87.8 fL (80-100); Mean Platelet Volume 7.9 fL (7.4-10.4); Monocytes # (auto) 0.67 K/uL (0.11-0.59); Monocytes % (auto) 9.6 %; Neutrophils # (auto) 6.02 K/uL (1.4-6.5); Neutrophils % (auto) 85.9 %; Platelet Count 166 K/uL (130-400); RDW Coefficient of Variation 16.9 % (11.5-14.5); RDW Standard Deviation 54.4 fL (36.4-46.3); Red Blood Count 3.03 M/uL (4.2-5.4); White Blood Count 7.01 K/uL (4.8-10.8)
[2021-11-09 09:59] LABS: BUN Creatinine Ratio 22.8 (10-20); Calcium 8.1 mg/dl (8.5-10.1); Creatinine Clr Calc Pharmacy 67.6 ml/min; Est GFR (African American) 102.2 ml/min; Est GFR (Non-African American) 88.2 ml/min; Magnesium 1.2 mg/dl (1.7-2.4); Potassium 3.7 mmol/L (3.5-5.1)
[2021-11-09 10:08] LABS: ALC (manual) 0.37 K/uL (1.2-3.4); ANC (manual) 6.45 K/uL (1.4-6.5); Lymphocytes # (manual) 0.37 K/uL (1.2-3.4); Lymphocytes % (manual) 5.3 %; Monocytes # (manual) 0.19 K/uL (0.11-0.59); Monocytes % (manual) 2.7 %; Neutrophils # (manual) 6.45 K/uL (1.4-6.5); RBC Morphology Unremarkable
--- NOTE | 2021-11-09 10:32 | Hospitalist Progress Note ---
Date of Service November 09, 2021 Assessment & Plan (1) Pathological fracture, hip, unspecified, initial encounter for fracture: Plan: Right. Either osteoporotic, or very well could be pathologic from bone mets from her metastatic cancer. Spoke with [facility] who will operate today with Dr Bunny SAHA after NICOLE phillips -- currently NPO for IM nail of the right hip/femur today Hold Eliquis -- last dose was evening of 11/07/21. Pain control -- tylenol 1gm TID scheduled; morphine IV prn. -> discussed with patient and ordered 1mg Dilaudid prn as morphine not as effective per patient Dexamethasone 6mg IV daily for #2 will help to some degree with pain/inf lammation as well. Gentle fluids overnight --> D5Ns @ 50cc/hr ordered Cefazolin pre-op abx Cardiopulmonary risk is obviously very high due to advanced lung disease, stage 4 cancer, DVT/PE risk, etc -- but surgical repair is for palliative purposes to relieve pain and suffering, with goal of getting her home once again with hospice at the conclusion of this stay. Discussed with clinical coordinator, and ok for daughter to visit prior to surgery, resume usual visitation tomorrow Does not have any urinary symptoms and would not like to broadened abx coverage for gram negative bacilli on current UA --> Plans for d/c on hospice. Has all equipment at home, hospice 2x/week and family support (2) COPD with exacerbation: Plan: Dexamethasone 6mg IV daily. --> consider switching to prednisone in AM when able to take PO Doxycycline 100mg IV BID. Scheduled combivent QID. Hycodan prn. Mucinex BID. NC O2 -- on O2 chronically 2L Decreased wheezing today/less sob but still present --> stable on her usual amount of oxygen Still without productive cough Continue above (3) Stage 4 lung cancer: Plan: On hospice at home with her daughter since 2020. Goal is to return home with hospice post-discharge if at all possible. 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 Would recommend placing ostomy bag over the site. Ostomy bag will collect this a bit better.----> Wound RN unable to place ostomy. Dressing changed today. Daughter reports changing the dressings 3-4x's each day. Even with dressings in place stool leaks all over the abdominal wall. --> Continue wound care /dressings at d/c for comfort (5) Tachycardia: Plan: Suspect 2nd to pain, advanced lung disease, etc. PE is theoretically possible but she has been on full-strength anticoagulation at home with Eliquis. She has h/o pericardial effusion - likely malignant - this could be present and certainly worse than previous. Would not pursue work-up such as CTA chest, echo, etc. Rate 80s on examination, some anxiety about procedure as well --> as above, goal for comfort/fixing hip given increased discomfort but hopeful for d/c home hospice again once tx #1 (6) Hematuria: Plan: Reported by pt's daughter. Would not pursue work-up given hospice status. Patient will have montaño during this stay. --> continues with some blood in montaño bag but also getting Pyridium --> again, no work-up (7) Abdominal abscess: Plan: Patient with prior h/o numerous intra-abdominal abscesses. CTs from spring 2020 showed such. Was receiving antibiotics for them during that time, then ultimately d/c due to transitioning to hospice. Has had intermittent fevers for weeks/months per daughter - low-grade - could be fevers from these abscesses, or her cancer, or other. Simply treat any abdominal pain with pain meds. Would not pursue work-up. (8) History of DVT (deep vein thrombosis): Plan: holding eliquis for #1 above. resume post-op when acceptable with orthopedics. 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 continue ostomy care. (10) Cigarette smoker: Plan: Nicoderm patch 14mg/day. encouraged cessation, but in light of above patient states she is continuing this at d/c as they provide her comfort (11) Chronic kidney disease, stage 3a: Plan: Cr stable renally dose meds when able/avoid nephrotoxins (12) Severe protein-calorie malnutrition: Plan: 2nd to stage 4 cancer. (13) Hypothyroidism: Plan: cont synthroid. TSH today wnl. (14) Depression: Plan: cont home meds including sleep aids. (15) DVT prophylaxis: Plan: post-op resume her home Eliquis Plan: updated daughter on plan NPO for OR today for IM nailing eventual goal to return home back on hospice dilaudid added for pain -- consider reaching out to hospice for medication change at d/c Admission and Anticipated Discharge Date Admission Date: November 08, 2021 Supervising Physician Co-Signing Physician Notes FREDA Supervision Note: I did not personally see or examine the patient today, but I verified all thorpe points of FREDA Winn's assessment and plan with the following exceptions/additions: None Subjective patient evaluated this morning the roxanol taken at night, not as effective as Dilaudid in past. will give 1mg x 1 now, then prn. Asked RN to alert if needing more frequently. seen by wound care this morning, dressing changed. unable to place ostomy due to location/size and re-enforced with optifoam. Pain chroninc to abd, no increase. Pain primarily to her right hip with any movements. Continues to deny urinary symptoms and montaoñ in place draining concentrated red/orange urine. Discussed abx changes and patient does voice she would not like the abx at discharge and we will continue current course as is. Abx and steroids started on admission for COPD exacerbation.Still with cough but not coughing anything up. Mucinex when able to take PO. After leaving patient asked about daughter visiting prior to surgery. Will check with clinical coordinator. Cleared for visitation prior to surgery today, then resume usual visitation schedule for tomorrow unless has acute decompensation/worsening status. Review of Systems Review of Systems: All systems reviewed & are unremarkable except as noted in HPI & below Physical Exam Physical Exam: general - chronically ill, frail appearing female sitting up in bed, no acute distress noted eyes- anicteric, pupils equal and reactive ent- mmm neck- trachea midline, without deviation, no JVD appreicated resp- bilateral wheezing (decreased), diminished in the bases, on 2L O2 (chronically on supplemental O2), +cough, no sputum production chest- port to L chest, covered, c/d/i no erythema or tenderness to palpation cardio- RRR, no m/r/g, no edema gi- +BS, soft, nontender, ostomy with liquid brown stool output, dressing c/d/i to fistula tract/opening RLQ abdomen (prior reported brown drainage) msk- R leg shortened and externally rotated, calves non-tender to palpation, pulses palpable 1+ b/l LE, cap refill <3 seconds psych- alert, oriented x 3, cooperative Results & Data Results & Data ([facility]) Vital Signs (Past 12 Hours) Vital Signs Temp Pulse Pulse Resp BP Pulse Ox 11/09/21 07:30 94 H 20 92 11/09/21 07:00 36.7 C 83 18 101/59 L 92 11/09/21 05:21 89 22 95 11/09/21 03:43 36.5 C 88 20 101/61 93 11/09/21 00:16 98 H 103/64 11/08/21 22:32 36.6 C 94 H 20 95 Laboratory Results 11/09/21 11/09/21 11/08/21 Range/Units 09:23 09:23 14:30 WBC 7.01 (4.8-10.8) K/uL RBC 3.03 L (4.2-5.4) M/uL Hgb 7.8 L (12.0-16.0) g/dL Hct 26.6 L (37-47) % MCV 87.8 (80-100) fL MCH 25.7 (25-34) pg MCHC 29.3 L (32-36) g/dL RDW Std Deviation 54.4 H (36.4-46.3) fL RDW Coeff of Raymundo 16.9 H (11.5-14.5) % Plt Count 166 (130-400) K/uL MPV 7.9 (7.4-10.4) fL Immature Gran % (Auto) 0.4 % Neut % (Auto) 85.9 % Lymph % (Auto) 4.0 % Waller % (Auto) 9.6 % Eos % (Auto) 0.0 % Baso % (Auto) 0.1 % Neut # (Auto) 6.02 (1.4-6.5) K/uL Lymph # (Auto) 0.28 L (1.2-3.4) K/uL Waller # (Auto) 0.67 H (0.11-0.59) K/uL Eos # (Auto) 0.00 (0-0.5) K/uL Baso # (Auto) 0.01 (0-0.2) K/uL Immature Gran # (Auto) 0.03 H (0.00-0.02) K/uL Neutrophils % (Manual) 92.0 % Lymphocytes % (Manual) 5.3 % Monocytes % (Manual) 2.7 % Neutrophils # (Manual) 6.45 (1.4-6.5) K/uL Total Absolute Neuts 6.45 (1.4-6.5) K/uL Lymphocytes # (Manual) 0.37 L (1.2-3.4) K/uL Total Abs Lymphocytes 0.37 L (1.2-3.4) K/uL Monocytes # (Manual) 0.19 (0.11-0.59) K/uL RBC Morphology Unremarkable PT (9.0-12.0) Seconds INR (0.9-1.1) APTT (21.0-31.0) Seconds PTT Ratio Sodium 134 L (136-145) mmol/L Potassium 3.7 (3.5-5.1) mmol/L Chloride 102 (98-107) mmol/L Carbon Dioxide 30 (21-32) mmol/L Anion Gap 2 L (3-11) BUN 13 (6-23) mg/dl Creatinine 0.57 L (0.6-1.2) mg/dl Est Cr Clr Drug Dosing 67.6 ml/min Est GFR ( Amer) 102.2 ml/min Est GFR (Non-Af Amer) 88.2 ml/min BUN/Creatinine Ratio 22.8 H (10-20) Glucose 116 H (70-99(Fasting)) mg/dl Calcium 8.1 L (8.5-10.1) mg/dl Magnesium 1.2 L (1.7-2.4) mg/dl Urine Color Dark Yellow Urine Appearance Turbid A (Clear) Urine pH 5.0 (4.5-7.5) Ur Specific [place] 1.013 (1.000-1.030) Urine Protein 1+ H (Negative) Urine Glucose (UA) Negative (Negative) Urine Ketones Negative (Negative) Urine Blood 3+ H (Negative) Urine Nitrite Positive A (Negative) Urine Bilirubin Negative (Negative) Urine Urobilinogen Negative (Negative) Ur Leukocyte Esterase 3+ H (Negative) Urine WBC (Auto) >30 H (0-5) /hpf Urine RBC (Auto) >30 H (0-4) /hpf U Hyaline Cast (Auto) >30 H (0-5) /lpf U Epithel Cells (Auto) >30 H (0-5) /lpf Urine Bacteria (Auto) 4+ H (Negative) Urine Yeast Not Reportable Blood Type Antibody Screen 11/08/21 11/08/21 Range/Units 13:56 13:56 WBC (4.8-10.8) K/uL RBC (4.2-5.4) M/uL Hgb (12.0-16.0) g/dL Hct (37-47) % MCV (80-100) fL MCH (25-34) pg MCHC (32-36) g/dL RDW Std Deviation (36.4-46.3) fL RDW Coeff of Raymundo (11.5-14.5) % Plt Count (130-400) K/uL MPV (7.4-10.4) fL Immature Gran % (Auto) % Neut % (Auto) % Lymph % (Auto) % Waller % (Auto) % Eos % (Auto) % Baso % (Auto) % Neut # (Auto) (1.4-6.5) K/uL Lymph # (Auto) (1.2-3.4) K/uL Waller # (Auto) (0.11-0.59) K/uL Eos # (Auto) (0-0.5) K/uL Baso # (Auto) (0-0.2) K/uL Immature Gran # (Auto) (0.00-0.02) K/uL Neutrophils % (Manual) % Lymphocytes % (Manual) % Monocytes % (Manual) % Neutrophils # (Manual) (1.4-6.5) K/uL Total Absolute Neuts (1.4-6.5) K/uL Lymphocytes # (Manual) (1.2-3.4) K/uL Total Abs Lymphocytes (1.2-3.4) K/uL Monocytes # (Manual) (0.11-0.59) K/uL RBC Morphology PT 10.3 (9.0-12.0) Seconds INR 1.0 (0.9-1.1) APTT 29.6 (21.0-31.0) Seconds PTT Ratio 1.1 Sodium (136-145) mmol/L Potassium (3.5-5.1) mmol/L Chloride (98-107) mmol/L Carbon Dioxide (21-32) mmol/L Anion Gap (3-11) BUN (6-23) mg/dl Creatinine (0.6-1.2) mg/dl Est Cr Clr Drug Dosing ml/min Est GFR ( Amer) ml/min Est GFR (Non-Af Amer) ml/min BUN/Creatinine Ratio (10-20) Glucose (70-99(Fasting)) mg/dl Calcium (8.5-10.1) mg/dl Magnesium (1.7-2.4) mg/dl Urine Color Urine Appearance (Clear) Urine pH (4.5-7.5) Ur Specific [place] (1.000-1.030) Urine Protein (Negative) Urine Glucose (UA) (Negative) Urine Ketones (Negative) Urine Blood (Negative) Urine Nitrite (Negative) Urine Bilirubin (Negative) Urine Urobilinogen (Negative) Ur Leukocyte Esterase (Negative) Urine WBC (Auto) (0-5) /hpf Urine RBC (Auto) (0-4) /hpf U Hyaline Cast (Auto) (0-5) /lpf U Epithel Cells (Auto) (0-5) /lpf Urine Bacteria (Auto) (Negative) Urine Yeast Blood Type O Positive Antibody Screen NEGATIVE Diagnostic Findings Head CT 11/08/21 13:59 CT head/brain wo con CLINICAL HISTORY: fall, ?head injury Technique: Contiguous axial CT images of the head were acquired from the base of the skull to the vertex without intravenous contrast administration. Images were viewed in brain, subdural and bone windows. Automated dose lowering techniques and/or adjustment according to patient size were utilized for this exam. Comparison: Comparison is made to CT head 02/04/2021 Findings: The ventricles, basal cisterns, and cerebral sulci are normal. There is no acute intracranial hemorrhage or evidence of acute territorial infarction. Neither mass effect, shift of the midline structures, nor abnormal extra-axial fluid collections are shown. Imaged portions of the paranasal sinuses and mastoid air cells are clear. The orbits appear normal. There are no acute fractures of the calvaria or scalp swelling. Impression: No acute intracranial hemorrhage, skull fractures, or scalp swelling. ACT 112: Negative or not required by law. Electronically signed by: Shawn Coronado M.D. 11/08/2021 4:07 PM PG Care Time/CCT Total # of Minutes Spent Total Time Spent with Patient: Total time spent is greater than 50% in coordination of care (as documented) at patient's floor/unit and/or counseling patient: Coding Level of Care Code 31878 Subseq Hosp Care Lvl 3 Diagnoses Pathological fracture, hip, unspecified, initial encounter for fracture M84.459A COPD with exacerbation J44.1 Stage 4 lung cancer C34.90 Abdominal wall fistula K63.2 Tachycardia R00.0 Hematuria R31.9 Abdominal abscess History of DVT (deep vein thrombosis) Z86.718 Colostomy status Z93.3 Cigarette smoker F17.210 Chronic kidney disease, stage 3a N18.3 Severe protein-calorie malnutrition E43 Hypothyroidism E03.9 Hypothyroidism type: acquired Depression F32.9 Active/Remission status: remission status unspecified Depression Type: major depressive disorder Major depression recurrence: unspecified whether recurrent DVT prophylaxis Z29.9 (1) Depression Active/Remission status: remission status unspecified Depression Type: major depressive disorder Major depression recurrence: unspecified whether recurrent Qualified Code(s): F32.9 - Major depressive disorder, single episode, unspecified (2) Hypothyroidism Hypothyroidism type: acquired Qualified Code(s): E03.9 - Hypothyroidism, unspecified
[2021-11-09] MEDS: HYDROmorphone INJ 1 MG/ML SYRINGE IV PRN ×3 (11:11→22:44)
[2021-11-09] MEDS: D5W AND NSS 1,000 ML IV SCH (12:16)
[2021-11-09] MEDS ORDERED: FLUCONAZOLE 50 MG TAB PO ONE (13:57)
[2021-11-09] MEDS ORDERED: SODIUM CHLORIDE 0.9% 250 ML IV PRN ×2 (15:03→16:28)
[2021-11-09] MEDS ORDERED: LIDOCAINE 2% 2 ML VIAL/AMP(20MG/ML) INFIL ONE (15:42)
[2021-11-09] MEDS ORDERED: ONDANSETRON INJ 2 MG/ML 2 ML VIAL ONE (15:42)
[2021-11-09] MEDS ORDERED: DEXAMETHASONE SOD INJ 4 MG/ML VIAL ONE (15:42)
[2021-11-09] MEDS ORDERED: ROCURONIUM BROMIDE 10 MG/ML 5 ML VIAL IV ONE (15:42)
[2021-11-09] MEDS ORDERED: PROPOFOL IV EMULSION 10 MG/ML 20 ML VIAL IV ONE (15:42)
[2021-11-09] MEDS ORDERED: fentaNYL citrate 100 MCG/2 ML VIAL ONE (16:14)
[2021-11-09] MEDS ORDERED: ALBUT/IPRATROP 3MG/0.5MG NEB 3 ML VIAL ONE ×2 (16:23→18:44)
[2021-11-09] MEDS ORDERED: BUPIVACAINE 0.5 % 5 MG/1 ML MPF 30ML VIAL ONE (16:35)
[2021-11-09] MEDS ORDERED: EPINEPHrine INJ 1 MG/ML AMP ONE (16:35)
[2021-11-09] MEDS ORDERED: LABETALOL HCL IV 5 MG/ML 20ML IV PRN (16:36)
[2021-11-09] MEDS ORDERED: ePHEDrine sulfate 50 MG/ML AMP IV PRN (16:36)
[2021-11-09] MEDS ORDERED: PHENYLEPHRINE 100MCG/ML 5ML SYR IV PRN (16:36)
[2021-11-09] MEDS ORDERED: ATROPINE SULFATE 0.1 MG/ML 10ML SYR IV PRN (16:36)
[2021-11-09] MEDS ORDERED: ONDANSETRON INJ 2 MG/ML 2 ML VIAL IV PRN (16:36)
[2021-11-09] MEDS ORDERED: HYDROmorphone INJ 1 MG/ML SYRINGE IV PRN (16:36)
[2021-11-09 17:17] LABS: Iron < 10 mcg/dl (35-150); Unsaturated Iron Binding Cap 121 mcg/dl (155-355)
[2021-11-09 17:32] LABS: Ferritin 1212.2 ng/ml (8-388)
--- NOTE | 2021-11-09 18:05 | Operative Report ---
Post Operative Report Pre & Post Diagnosis Operation Date: 11/09/21 09:40 Pre-Op Diagnosis: Closed right intertrochanteric/subtrochanteric hip fracture Post-Op Diagnosis: Closed right intertrochanteric/subtrochanteric hip fracture I identified the patient and participated in the time-out.: Yes Procedure Operation Date: 11/09/21 09:40 Actual Procedures p Intramedullary nailing of right hip femur fracture - Douglas Hollis MD Surgeon Douglas Hollis MD Horse Groomer Crescencio Welch PA-C Estimated Blood Loss 50 Findings Consistent with Post-Op Diagnosis Specimens None Anesthesia Type General Complications none Disposition Accompanied Patient To Recovery: No Indications Patient is 81-year-old female with multiple medical comorbidities including stage IV lung cancer on hospice care. She sustained a fall yesterday. She had acute onset of hip pain. She is unable to ambulate. She was brought to emergency room x-rays of the right intertrochanteric/subtrochanteric hip fracture. Treatment options were explained and she elected to proceed with surgical management for pain control issues. Description of Procedure Operative implants consisted of: 1. Synthes right 340 mm x 11 mm long trochanteric nail. 2. 85 mm helical blade. 3. 42 mm distal interlocking screw. The patient was taken the operating, identified, placed on the operating table supine position protectors were properly padded IV antibiotics tried by anesthesia team. General anesthetic was implemented by anesthesia team. The patient then placed on the fracture table. The right leg was placed in boot traction the left leg was placed in a well leg mcdonnell. I applied some longitudinal traction to the right leg and internally rotated the foot so the kneecap pointed the ceiling. We made some adjustments to try to maximize the reduction. The right hip was then scrubbed with Hibiclens, prepped with ChloraPrep and draped in usual sterile fashion. A curvilinear incision was made just proximal to the tip of the trochanter. Sharp dissection was got through subcutaneous is down to the gluteal fascia. The gluteal fascia was incised longitudinally in line with skin incision. A guidewire was then placed just lateral to the tip of the trochanter and in line with the IM canal both the AP and lateral planes. This admit the advanced down the IM canal. This was verified fluoroscopically. This is overreamed with a 17 mm reamer. At this guidewire switch for a ball-tipped guidewire which place was placed down the IM canal. Nail length was measured and a 340 mm nail was selected. I then overreamed the guidewire to 12.5 mm reamer. A 340 mm x 11mm right long trochanteric nail was then placed over the guidewire and tapped in position. The lateral aiming arm was placed and advanced to the lateral aspect of the femur. Stab incision was made and it was advanced to the lateral femur. A guidewire was placed in central aspect of the femoral head neck in both AP and lateral planes. This is advanced under fluoroscopy. This was then measured and an 85 mm helical blade was selected. The cortical step drill was used to breach the cortex and a triple reamer was set at 85 and overreamed the guidewire. An 85 mm helical blade was placed and tapped in position. The proximal setscrew was tightened. The proximal aiming arm was removed and some final x-rays were obtained. Attention then drawn toward distal fixation. Traction was released. Perfect andreafski technique was used to place a distal interlocking screw in the dynamic hole. Stab incision was made. The drill was used to create the hole and a 5.0 x 42 mm distal interlocking screw was placed. This was verified by x-ray. Some final x-rays were obtained. Attention drawn toward closing. All wounds were irrigated with copious amounts of normal saline. I did repair the gluteal fascia with 0 Vicryl suture running fashion for subcutaneous tissues with all wounds were then closed with 2 Dexon suture in a buried interrupted fas hion skin was closed skin ney. Leg was then cleaned and dried a sterile dressing was Xeroform, 4 x 4's, ABD pad, foam tape was applied. The patient then taken off the fracture table and transferred to the recovery room after being brought out of general anesthesia. Patient tolerated the procedure well and there were no complications. Crescencio Welch, my physician residential real estate assistant, was present for the entire procedure. His assistance was required for proper patient positioning, prepping and draping, surgical exposure, perform the technical details the operation, placement of the hardware, closure of the wound, placement of sterile bandage. I attest to the content of the Intraoperative Record and any orders documented therein. Any exceptions are noted below.
[2021-11-09] MEDS: fentaNYL citrate 100 MCG/2 ML VIAL IV PRN ×3 (18:33→19:11)
[2021-11-09] MEDS: MAGNESIUM SULFATE / D5W 1 GM/100 ML BAG IV SCH ×3 (18:35→23:36)
--- NOTE | 2021-11-09 18:57 | Fluoroscopy Report ---
FL hip RT 2-3V CLINICAL HISTORY: Right hip intramedullary nail.Right hip fracture. COMPARISON STUDY: Right hip 11/08/2021. FLUOROSCOPY TIME: 1 minute and 34 seconds. FINDINGS: 4 fluoroscopic spot images of the right femur demonstrate an intramedullary jose with an int erlocking femoral neck pin traversing the intertrochanteric fracture. Alignment is near-anatomic. The hardware appears intact. IMPRESSION: Fluoroscopic assistance provided for internal fixation of a right femoral intertrochanter ic fracture. ACT 112: Negative or not required by law. Electronically signed by: Bao Alcala M.D. 11/09/2021 6:55 PM
--- NOTE | 2021-11-09 20:50 | Anesthesiology Progress Note ---
Date of Service November 09, 2021 Anesthesia Post Procedure Vital Signs Vital Signs: Temp Pulse Pulse Pulse Resp BP BP 11/09/21 20:31 36.3 C L 106 H 20 105/63 11/09/21 20:00 36.6 C 94 H 16 108/63 11/09/21 19:30 36.1 C L 98 H 15 114/44 L 11/09/21 19:20 36.1 C L 98 H 14 110/55 L 11/09/21 19:10 95 H 18 128/61 11/09/21 19:00 89 22 118/56 L 11/09/21 18:50 95 H 17 126/66 11/09/21 18:40 87 14 131/66 11/09/21 18:30 90 16 128/60 11/09/21 18:20 105 H 19 123/57 L 11/09/21 18:12 36.1 C L 98 H 19 127/58 L 11/09/21 14:49 76 18 11/09/21 10:59 78 20 11/09/21 07:30 94 H 20 11/09/21 07:00 36.7 C 83 18 101/59 L 11/09/21 05:21 89 22 11/09/21 03:43 36.5 C 88 20 101/61 11/09/21 00:16 98 H 103/64 11/08/21 22:32 36.6 C 94 H 20 Pulse Ox 11/09/21 20:31 94 11/09/21 20:00 93 11/09/21 19:30 95 11/09/21 19:20 93 11/09/21 19:10 93 11/09/21 19:00 96 11/09/21 18:50 96 11/09/21 18:40 98 11/09/21 18:30 95 11/09/21 18:20 95 11/09/21 18:12 97 11/09/21 14:49 91 11/09/21 10:59 94 11/09/21 07:30 92 11/09/21 07:00 92 11/09/21 05:21 95 11/09/21 03:43 93 11/09/21 00:16 11/08/21 22:32 95 Pain Intensity Right Hip: Pain Intensity: 3 Right Shoulder: Pain Intensity: 3 Transfer of Care Handoff Completed per policy Notes Mental Status: alert / awake / arousable Patient Amnestic to Procedure: Yes Nausea / Vomiting: adequately controlled Pain: adequately controlled Airway Patency, RR, SpO2: stable & adequate BP & HR: stable & adequate Hydration State: stable & adequate Anesthetic Complications: no major complications apparent and Pt Satisfied with anesthetic care Notes: The patient was awake and comfortable. She has poor pulmonary function at baseline. She was given a Duoneb both pre and postoperatively. Her SpO2 was in the 94 on 3 L oxygen. She will have continuous pulse oximetry overnight.
[2021-11-09] MEDS: SODIUM CHLORIDE 0.9% 1000ML 1,000 ML IV SCH (21:11)
[2021-11-09] MEDS: MoRPHine SULFATE 5 MG/0.25 ML UDP SL SCH (21:12)
[2021-11-09] MEDS: ZOLPIDEM TARTRATE 5 MG TAB PO SCH (21:16)
[2021-11-09] MEDS: traZODone HCL 50 MG TAB PO SCH (21:17)
[2021-11-09] MEDS: DOCUSATE SODIUM/SENNA 50/8.6MG TAB PO SCH (21:18)
--- NOTE | 2021-11-09 22:06 | Electrocardiogram Report ---
Test Reason : Blood Pressure : / mmHG Vent. Rate : 116 BPM Atrial Rate : 116 BPM P-R Int : 126 ms QRS Dur : 066 ms QT Int : 318 ms P-R-T Axes : 058 -73 041 degrees QTc Int : 442 ms Sinus tachycardia Left axis deviation Low voltage QRS Possible Inferior infarct , age undetermined Cannot rule out Anteroseptal infarct (cited on or before 14-OCT-2020) Abnormal ECG When compared with ECG of 08-NOV-2021 09:25, Questionable change in initial forces of Septal leads Confirmed by Jarrod Sheldon ([id number]) on 11/09/2021 10:06:06 PM Referred By: REFERRED SELF Confirmed By:Jarrod Sheldon
[2021-11-10] MEDS: ALPRAZolam 0.5 MG TABLET PO PRN ×4 (01:10→20:27)
[2021-11-10] MEDS: MAGNESIUM SULFATE / D5W 1 GM/100 ML BAG IV SCH (01:58)
[2021-11-10] MEDS: HYDROmorphone INJ 1 MG/ML SYRINGE IV PRN ×5 (02:14→19:24)
[2021-11-10] MEDS: LEVOTHYROXINE SODIUM 100 MCG TABLET PO SCH (06:45)
[2021-11-10] MEDS: ALBUTEROL HFA 8 GM INHALER INH SCH ×4 (07:18→19:56)
[2021-11-10] MEDS: IPRATROPIUM BROMIDE HFA INHALER INH SCH ×4 (07:18→19:55)
[2021-11-10 07:34] LABS: BUN Creatinine Ratio 23.2 (10-20); Calcium 7.8 mg/dl (8.5-10.1); Creatinine Clr Calc Pharmacy 68.8 ml/min; Est GFR (African American) 102.8 ml/min; Est GFR (Non-African American) 88.7 ml/min; Magnesium 2.2 mg/dl (1.7-2.4); Potassium 4.1 mmol/L (3.5-5.1)
[2021-11-10 07:49] LABS: Basophils # (auto) 0.01 K/uL (0-0.2); Basophils % (auto) 0.1 %; Hematocrit (blood only) 29.6 % (37-47); Hemoglobin 8.9 g/dL (12.0-16.0); Immature Granulocytes # (auto) 0.04 K/uL (0.00-0.02); Immature Granulocytes % (auto) 0.4 %; Lymphocytes # (auto) 0.46 K/uL (1.2-3.4); Lymphocytes % (auto) 4.2 %; Mean Corpuscular Hemoglobin 26.5 pg (25-34); Mean Corpuscular Hgb Conc 30.1 g/dL (32-36); Mean Corpuscular Volume 88.1 fL (80-100); Mean Platelet Volume 8.4 fL (7.4-10.4); Monocytes # (auto) 0.77 K/uL (0.11-0.59); Monocytes % (auto) 7.1 %; Neutrophils # (auto) 9.58 K/uL (1.4-6.5); Neutrophils % (auto) 88.2 %; Platelet Count 224 K/uL (130-400); RDW Coefficient of Variation 16.6 % (11.5-14.5); RDW Standard Deviation 54.3 fL (36.4-46.3); Red Blood Count 3.36 M/uL (4.2-5.4); White Blood Count 10.86 K/uL (4.8-10.8)
--- NOTE | 2021-11-10 08:20 | Hospitalist Progress Note ---
Date of Service November 10, 2021 Assessment & Plan (1) Pathological fracture, hip, unspecified, initial encounter for fracture: Plan: Right. Either osteoporotic, or very well could be pathologic from bone mets from her metastatic cancer. Vit D low 12.9 - 50,000 ergocalciferol to be given weekly POD #1 s/p Intramedullary nailing of right hip femur fracture - Douglas Hollis MD. EBL 50cc s/p 1 u PRBC for hgb 7.8 2, repeat stable 8.9, also some dilutional from IVF but also iron deficiency on chronic disease and will give dose of venofer today as well Pain control -- tylenol TID scheduled, roxanol at night as taking APPLIANCE FIXER, and ordered dilaudid 1mg Q3H prn for breakthrough pain which seems to be effective. --> Can consider d/c on this given palliative/hospice however patient is interested in some rehab if recommended when PT/OT eval today and did discuss that would revoke current hospice (already revoked given surgery) but they may be able to get some rehab and then transition back to palliative --> hospice moving forward --> Will await formal eval and CM aware to monitor DVT Proph --> SCDs, TERRY beatty, ortho resumed eliquis 11/10 but at 2.5mg BID for next 48-72 hours then can back to regular 5mg BID dosing WBAT RLL D/c IVF this morning as eating/drinking no issue and would want to prevent volume overload Dexamethasone 6mg IV daily (day 3) for #2 to help with pain/inflammation as well Does not have any urinary symptoms and would not like to broadened abx coverage for gram negative bacilli on current UA --> klebsiella oxytoca on urine cx final --> resistant to cefazolin (was on pre-op for abx) but is on doxycyline for COPD exacerbation which likely not to cover --> will start Levaquin 500mg daily and then can d/c the Doxy for COPD exacerbation for dual coverage Cardiopulmonary risk is obviously very high due to advanced lung disease, stage 4 cancer, DVT/PE risk, etc -- but surgical repair is for palliative purposes to relieve pain and suffering, with goal of getting her home once again (has all equipment at home/hospice 2x/week and family support) but this would change if she decides she wants to pursue rehab if recommended CM to follow (2) COPD with exacerbation: Plan: Dexamethasone 6mg IV daily. --> switch to prednisone 60mg PO in AM, taper at d/c Doxycycline 100mg IV BID (day 2) --> switched to Levaquin for urinary coverage as well as above Scheduled combivent QID. NC O2 -- on O2 chronically 2L, on 3L but Spo2 96% and asked RN to wean to see if able to decrease Still without productive cough Mucinex BID -- increase to 1200mg BID Hycodan prn -- asked to give dose x 1 now Continue above, monitor (3) Stage 4 lung cancer: Plan: On hospice at home with her daughter since 2020. 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 Would recommend placing ostomy bag over the site. Ostomy bag will collect this a bit better.----> Wound RN unable to place ostomy. Dressing changed today. Daughter reports changing the dressings 3-4x's each day. Even with dressings in place stool leaks all over the abdominal wall -- had been doing well all yesterday, some drainage today 11/10 and asked RN to change dressing --> Continue wound care /dressings at d/c for comfort (5) Tachycardia: Plan: Suspect 2nd to pain, advanced lung disease, etc. PE is theoretically possible but she has been on full-strength anticoagulation at home with Eliquis --> now on 1/2 dose per ortho. if needed, increase back to 5mg BID sooner, is obv at high risk given underlying malignancy She has h/o pericardial effusion - likely malignant - this could be present and certainly worse than previous. Would not pursue work-up such as CTA chest, echo, etc. Rate 60-80s on examination --> as above, goal for comfort/fixing hip given increased discomfort but hopeful for d/c home hospice again once tx #1 (6) Hematuria: Plan: Reported by pt's daughter. Would not pursue work-up given hospice status. Patient will have montaño during this stay. --> continues with some blood in montaño bag but also getting Pyridium -- urine cx with klebsiella oxytoca but continued to deny any symptoms/lower abd discomfort --> again, no work-up consider tx urine cx given continued hematuria/but without symptoms. will monitor for now, hgb stable but did need 1 u PRBC 11/09 as above, hgb stable on repeat --> macrobid 100mg BID started 11/10 (7) Abdominal abscess: Plan: Patient with prior h/o numerous intra-abdominal abscesses. CTs from spring 2020 showed such. Was receiving antibiotics for them during that time, then ultimately d/c due to transitioning to hospice. Has had intermittent fevers for weeks/months per daughter - low-grade - could be fevers from these abscesses, or her cancer, or other. Simply treat any abdominal pain with pain meds. Would not pursue work-up. 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 continue ostomy care. (10) Cigarette smoker: Plan: Nicoderm patch 14mg/day. encouraged cessation, but in light of above patient states she is continuing this at d/c as they provide her comfort (11) Chronic kidney disease, stage 3a: Plan: Cr stable renally dose meds when able/avoid nephrotoxins (12) Severe protein-calorie malnutrition: Plan: 2nd to stage 4 cancer. (13) Hypothyroidism: Plan: cont synthroid. TSH wnl. (14) Depression: Plan: cont home meds including sleep aids. (15) DVT prophylaxis: Plan: post-op resume her home Eliquis -- 2.5mg BID for 48-72hour per ortho, then increase back to 5mg BID 11/11 Plan: PT/OT consults pending -- patient wanting to consider rehab. CM following. If rehab, likely w/ insurance [facility] bed this week Admission and Anticipated Discharge Date Admission Date: November 08, 2021 Supervising Physician Co-Signing Physician Notes PA Supervision Note: I did not personally see or examine the patient today, but I verified all thorpe points of FREDA Winn's assessment and plan with the following exceptions/additions: None Subjective patient evaluated this morning doing alright, pain to her hip. ate 100% of breakfast this morning still with cough, non productive. discussed discontinuing her IVF, currently on 3L NC and on 2L at home. Pain controlled with dilaudid. She is agreeable to some rehab if recommended with understanding hospice would be revoked but would be likely able to transition back from palliative to hospice at d/c pending progress. She continues to deny urinary symptoms and would like to have montaño remain in place for now. Discussed can pull closer to d/c. Still not interested in any change in antibiotics for prior resistant species. Has not yet worked with therapy but anxious to see how it goes. Stated good relief to R shoulder and would like one for her lateral left ankle to see if effective. Would also be able to order voltaren gel if ineffective if she would like. No fever, chills, chest pain. Still with cough, mucinex not helping to clear anything and discussed will review dose and possible increase if needed. Dressing to R abdomen saturated this morning and will have RN come in to change dressing. Ostomy with adequate output. Questions/concerns addressed at this time. Review of Systems Review of Systems: All systems reviewed & are unremarkable except as noted in HPI & below Physical Exam Physical Exam: general - chronically ill/frail appearing female sitting up in bed, no acute distress noted eyes- anicteric, pupils equal and reactive ent- mmm neck- trachea midline, without deviation, no JVD appreciated resp- bilateral wheezing (decreased), diminished in the bases/coarse breath sounds posterior das, on 3l nc O2 (chronically on 2L supplemental O2) sPo2 96% (asked Rn to wean), +cough, no sputum production chest- port to L chest, covered, c/d/i no erythema or tenderness to palpation cardio- RRR, no m/r/g, no edema gi- +BS, soft, nontender, ostomy with liquid brown stool output, dressing with brown drainage noted/saturated gauze msk- RLE with dressing c/d/i, tender to palpation along dressing appropriately, no evidence of hematoma, some mild edema, NVI, pulses diminished but palpable, calves non-tender to palpation (except some slight tenderness to palpation lateral aspect distal LLE). lidocaine patch to R shoulder gu- montaño with blood tinged urine draining psych- alert, oriented x 3, cooperative Results & Data Results & Data ([place]) Vital Signs (Past 12 Hours) Vital Signs Temp Pulse Pulse Resp BP BP Pulse Ox 11/10/21 07:23 36.4 C L 71 18 100/63 96 11/10/21 07:20 75 18 95 11/10/21 06:42 98/59 L 96 11/10/21 02:11 36.6 C 75 16 111/68 97 11/09/21 22:54 36.5 C 84 20 100/60 95 11/09/21 22:18 36.6 C 96 H 22 116/63 94 11/09/21 21:09 112/64 11/09/21 21:02 36.6 C 105 H 22 97/56 L 94 11/09/21 20:31 36.3 C L 106 H 20 105/63 94 Laboratory Results 11/10/21 11/10/21 11/10/21 Range/Units 06:27 06:27 06:27 WBC 10.86 H (4.8-10.8) K/uL RBC 3.36 L (4.2-5.4) M/uL Hgb 8.9 L (12.0-16.0) g/dL Hct 29.6 L (37-47) % MCV 88.1 (80-100) fL MCH 26.5 (25-34) pg MCHC 30.1 L (32-36) g/dL RDW Std Deviation 54.3 H (36.4-46.3) fL RDW Coeff of Raymundo 16.6 H (11.5-14.5) % Plt Count 224 (130-400) K/uL MPV 8.4 (7.4-10.4) fL Immature Gran % (Auto) 0.4 % Neut % (Auto) 88.2 % Lymph % (Auto) 4.2 % [place] % (Auto) 7.1 % Eos % (Auto) 0.0 % Baso % (Auto) 0.1 % Neut # (Auto) 9.58 H (1.4-6.5) K/uL Lymph # (Auto) 0.46 L (1.2-3.4) K/uL [place] # (Auto) 0.77 H (0.11-0.59) K/uL Eos # (Auto) 0.00 (0-0.5) K/uL Baso # (Auto) 0.01 (0-0.2) K/uL Immature Gran # (Auto) 0.04 H (0.00-0.02) K/uL Neutrophils % (Manual) % Lymphocytes % (Manual) % Monocytes % (Manual) % Neutrophils # (Manual) (1.4-6.5) K/uL Total Absolute Neuts (1.4-6.5) K/uL Lymphocytes # (Manual) (1.2-3.4) K/uL Total Abs Lymphocytes (1.2-3.4) K/uL Monocytes # (Manual) (0.11-0.59) K/uL RBC Morphology Sodium 135 L (136-145) mmol/L Potassium 4.1 (3.5-5.1) mmol/L Chloride 104 (98-107) mmol/L Carbon Dioxide 30 (21-32) mmol/L Anion Gap 1 L (3-11) BUN 13 (6-23) mg/dl Creatinine 0.56 L (0.6-1.2) mg/dl Est Cr Clr Drug Dosing 68.8 ml/min Est GFR ( Amer) 102.8 ml/min Est GFR (Non-Af Amer) 88.7 ml/min BUN/Creatinine Ratio 23.2 H (10-20) Glucose 110 H (70-99(Fasting)) mg/dl POC Glucose (70-99) mg/dl Calcium 7.8 L (8.5-10.1) mg/dl Magnesium 2.2 (1.7-2.4) mg/dl Iron (35-150) mcg/dl TIBC Unsaturated IBC (155-355) mcg/dl Transferrin % Sat Ferritin (8-388) ng/ml 25-OH Vitamin D Total 12.9 L (30-100) ng/ml Blood Type Antibody Screen Crossmatch 11/09/21 11/09/21 11/09/21 Range/Units 15:19 09:23 09:23 WBC (4.8-10.8) K/uL RBC (4.2-5.4) M/uL Hgb (12.0-16.0) g/dL Hct (37-47) % MCV (80-100) fL MCH (25-34) pg MCHC (32-36) g/dL RDW Std Deviation (36.4-46.3) fL RDW Coeff of Raymundo (11.5-14.5) % Plt Count (130-400) K/uL MPV (7.4-10.4) fL Immature Gran % (Auto) % Neut % (Auto) % Lymph % (Auto) % [place] % (Auto) % Eos % (Auto) % Baso % (Auto) % Neut # (Auto) (1.4-6.5) K/uL Lymph # (Auto) (1.2-3.4) K/uL [place] # (Auto) (0.11-0.59) K/uL Eos # (Auto) (0-0.5) K/uL Baso # (Auto) (0-0.2) K/uL Immature Gran # (Auto) (0.00-0.02) K/uL Neutrophils % (Manual) % Lymphocytes % (Manual) % Monocytes % (Manual) % Neutrophils # (Manual) (1.4-6.5) K/uL Total Absolute Neuts (1.4-6.5) K/uL Lymphocytes # (Manual) (1.2-3.4) K/uL Total Abs Lymphocytes (1.2-3.4) K/uL Monocytes # (Manual) (0.11-0.59) K/uL RBC Morphology Sodium 134 L (136-145) mmol/L Potassium 3.7 (3.5-5.1) mmol/L Chloride 102 (98-107) mmol/L Carbon Dioxide 30 (21-32) mmol/L Anion Gap 2 L (3-11) BUN 13 (6-23) mg/dl Creatinine 0.57 L (0.6-1.2) mg/dl Est Cr Clr Drug Dosing 67.6 ml/min Est GFR ( Amer) 102.2 ml/min Est GFR (Non-Af Amer) 88.2 ml/min BUN/Creatinine Ratio 22.8 H (10-20) Glucose 116 H (70-99(Fasting)) mg/dl POC Glucose 131 H (70-99) mg/dl Calcium 8.1 L (8.5-10.1) mg/dl Magnesium 1.2 L (1.7-2.4) mg/dl Iron < 10 L (35-150) mcg/dl TIBC TNP Unsaturated IBC 121 L (155-355) mcg/dl Transferrin % Sat TNP Ferritin 1212.2 H (8-388) ng/ml 25-OH Vitamin D Total (30-100) ng/ml Blood Type Antibody Screen Crossmatch 11/09/21 11/08/21 Range/Units 09:23 13:56 WBC 7.01 (4.8-10.8) K/uL RBC 3.03 L (4.2-5.4) M/uL Hgb 7.8 L (12.0-16.0) g/dL Hct 26.6 L (37-47) % MCV 87.8 (80-100) fL MCH 25.7 (25-34) pg MCHC 29.3 L (32-36) g/dL RDW Std Deviation 54.4 H (36.4-46.3) fL RDW Coeff of Raymundo 16.9 H (11.5-14.5) % Plt Count 166 (130-400) K/uL MPV 7.9 (7.4-10.4) fL Immature Gran % (Auto) 0.4 % Neut % (Auto) 85.9 % Lymph % (Auto) 4.0 % [place] % (Auto) 9.6 % Eos % (Auto) 0.0 % Baso % (Auto) 0.1 % Neut # (Auto) 6.02 (1.4-6.5) K/uL Lymph # (Auto) 0.28 L (1.2-3.4) K/uL [place] # (Auto) 0.67 H (0.11-0.59) K/uL Eos # (Auto) 0.00 (0-0.5) K/uL Baso # (Auto) 0.01 (0-0.2) K/uL Immature Gran # (Auto) 0.03 H (0.00-0.02) K/uL Neutrophils % (Manual) 92.0 % Lymphocytes % (Manual) 5.3 % Monocytes % (Manual) 2.7 % Neutrophils # (Manual) 6.45 (1.4-6.5) K/uL Total Absolute Neuts 6.45 (1.4-6.5) K/uL Lymphocytes # (Manual) 0.37 L (1.2-3.4) K/uL Total Abs Lymphocytes 0.37 L (1.2-3.4) K/uL Monocytes # (Manual) 0.19 (0.11-0.59) K/uL RBC Morphology Unremarkable Sodium (136-145) mmol/L Potassium (3.5-5.1) mmol/L Chloride (98-107) mmol/L Carbon Dioxide (21-32) mmol/L Anion Gap (3-11) BUN (6-23) mg/dl Creatinine (0.6-1.2) mg/dl Est Cr Clr Drug Dosing ml/min Est GFR ( Amer) ml/min Est GFR (Non-Af Amer) ml/min BUN/Creatinine Ratio (10-20) Glucose (70-99(Fasting)) mg/dl POC Glucose (70-99) mg/dl Calcium (8.5-10.1) mg/dl Magnesium (1.7-2.4) mg/dl Iron (35-150) mcg/dl TIBC Unsaturated IBC (155-355) mcg/dl Transferrin % Sat Ferritin (8-388) ng/ml 25-OH Vitamin D Total (30-100) ng/ml Blood Type O Positive Antibody Screen NEGATIVE Crossmatch See Detail PG Care Time/CCT Total # of Minutes Spent Total Time Spent with Patient: Total time spent is greater than 50% in coordination of care (as documented) at patient's floor/unit and/or counseling patient: Coding Level of Care Code 86864 Subseq Hosp Care Lvl 3 Diagnoses Pathological fracture, hip, unspecified, initial encounter for fracture M84.459A COPD with exacerbation J44.1 Stage 4 lung cancer C34.90 Abdominal wall fistula K63.2 Tachycardia R00.0 Hematuria R31.9 Abdominal abscess History of DVT (deep vein thrombosis) Z86.718 Colostomy status Z93.3 Cigarette smoker F17.210 Chronic kidney disease, stage 3a N18.3 Severe protein-calorie malnutrition E43 Hypothyroidism E03.9 Hypothyroidism type: acquired Depression F32.9 Active/Remission status: remission status unspecified Depression Type: major depressive disorder Major depression recurrence: unspecified whether recurrent DVT prophylaxis Z29.9 (1) Depression Active/Remission status: remission status unspecified Depression Type: major depressive disorder Major depression recurrence: unspecified whether recurrent Qualified Code(s): F32.9 - Major depressive disorder, single episode, unspecified (2) Hypothyroidism Hypothyroidism type: acquired Qualified Code(s): E03.9 - Hypothyroidism, unspecified
--- NOTE | 2021-11-10 08:26 | Progress Notes ---
DATE OF SERVICE: 11/10/2021. SUBJECTIVE: A 81-year-old white female postoperative day 1 from IM nailing of a right intertrochante hilary/subtrochanteric fracture. She is doing well this morning. She says the pain is much improved. No new complaints. OBJECTIVE: VITAL SIGNS: Temperature 36.6. Vital signs are stable. GENERAL: Shows a pleasant, cachectic elderly female. She is lying in bed and looks pretty comfortab le. She is using her incentive spirometry. EXTREMITIES: Examination of the right leg reveals the leg to be well aligned. Dressing is clean, dr y and intact. Her thigh is soft and supple. She is neurologically intact. LABORATORY DATA: Labs are pending this morning. ASSESSMENT: A 81-year-old white female with multiple medical comorbidities, currently on hospice car e for metastatic lung cancer, now postoperative day 1 from IM nailing of a right intertrochanteric fr acture. She is doing pretty well. She looks pretty much back to baseline. PLAN: 1. DVT prophylaxis includes thigh-high TEDs, SCDs and back on her anticoagulation starting 24 hours postop. We prefer to use a prophylactic dose for the first 48 hours to 72 hours after surgery, then back to regular dose. 2. PT/OT. She can weight bear as tolerated, right leg. 3. Pain control, doing okay with current pain regimen. 4. Medical management as per the medicine service. 5. Disposition: She is orthopedically okay for discharge any time medically stable. I need to see her back at 2-3 weeks from her surgery date. Any orthopedic questions can be directed to me at [phone]. Job ID: [id number]
[2021-11-10] MEDS: LIDOCAINE 5% 1 PATCH TD SCH ×2 (08:39→13:41)
[2021-11-10] MEDS: NICOTINE 14 MG/24 HR PATCH TD SCH (08:39)
[2021-11-10] MEDS: dexAMETHasone 6 MG in SYRINGE 0 ML IV SCH (08:39)
[2021-11-10] MEDS: PANTOprazole 40 MG TAB PO SCH ×2 (08:40→08:45)
[2021-11-10] MEDS: guaiFENesin 600 MG TABCR PO SCH ×2 (08:40→20:26)
[2021-11-10] MEDS: ACETAMINOPHEN 500 MG TAB PO SCH ×3 (08:40→20:26)
[2021-11-10] MEDS: PHENAZOPYRIDINE HCL 100 MG TAB PO SCH ×2 (08:40→20:26)
[2021-11-10] MEDS: DOXYCYCLINE HYCLATE 100 MG in DEXTROSE 5% 100 ML IV SCH (09:53)
[2021-11-10] MEDS: SODIUM CHLORIDE 0.9% 1000ML 1,000 ML IV SCH (09:53)
[2021-11-10] MEDS: HYDROcodone/HOMATROPINE SYRUP 5MG/1.5MG 5ML UDP PO PRN ×2 (12:02→18:07)
[2021-11-10] MEDS: HEPARIN 100 UNIT/ML 5ML FLUSH FLUSH PRN ×3 (12:03→19:24)
[2021-11-10] MEDS: ERGOCALCIFEROL 50,000 UNITS 1250 MCG CAP PO SCH (16:20)
[2021-11-10] MEDS: levoFLOXacin 500 MG TAB PO SCH (16:20)
[2021-11-10] MEDS: APIXABAN 2.5 MG TAB PO SCH (18:07)
[2021-11-10] MEDS: MoRPHine SULFATE 5 MG/0.25 ML UDP SL SCH (20:26)
[2021-11-10] MEDS: traZODone HCL 50 MG TAB PO SCH (20:26)
[2021-11-10] MEDS: DOCUSATE SODIUM/SENNA 50/8.6MG TAB PO SCH (20:26)
[2021-11-10] MEDS: ZOLPIDEM TARTRATE 5 MG TAB PO SCH (20:27)
[2021-11-10] MEDS ORDERED: NITROFURANTOIN MONOHYDRATE 100 MG CAP PO SCH (21:00)
[2021-11-11] MEDS: HYDROmorphone INJ 1 MG/ML SYRINGE IV PRN ×6 (03:48→19:52)
[2021-11-11] MEDS: HEPARIN 100 UNIT/ML 5ML FLUSH FLUSH PRN ×5 (03:49→19:52)
[2021-11-11] MEDS: ALPRAZolam 0.5 MG TABLET PO PRN (03:49)
[2021-11-11] MEDS: LEVOTHYROXINE SODIUM 100 MCG TABLET PO SCH (06:25)
[2021-11-11 06:38] LABS: Hematocrit (blood only) 31.2 % (37-47); Hemoglobin 9.3 g/dL (12.0-16.0); Immature Granulocytes # (auto) 0.03 K/uL (0.00-0.02); Immature Granulocytes % (auto) 0.4 %; Lymphocytes % (auto) 7.8 %; Mean Corpuscular Hgb Conc 29.8 g/dL (32-36); Mean Corpuscular Volume 90.4 fL (80-100); Mean Platelet Volume 8.4 fL (7.4-10.4); Monocytes # (auto) 0.74 K/uL (0.11-0.59); Monocytes % (auto) 9.6 %; Neutrophils % (auto) 82.2 %; Platelet Count 211 K/uL (130-400); RDW Coefficient of Variation 16.6 % (11.5-14.5); RDW Standard Deviation 55.2 fL (36.4-46.3); Red Blood Count 3.45 M/uL (4.2-5.4); White Blood Count 7.67 K/uL (4.8-10.8)
[2021-11-11 07:00] LABS: BUN Creatinine Ratio 25.4 (10-20); Calcium 8.2 mg/dl (8.5-10.1); Creatinine Clr Calc Pharmacy 65.3 ml/min; Est GFR (Non-African American) 87.2 ml/min; Magnesium 1.6 mg/dl (1.7-2.4); Potassium 4.8 mmol/L (3.5-5.1)
[2021-11-11] MEDS: ALBUTEROL HFA 8 GM INHALER INH SCH (07:30)
[2021-11-11] MEDS: IPRATROPIUM BROMIDE HFA INHALER INH SCH (07:30)
--- NOTE | 2021-11-11 07:53 | Progress Notes ---
DATE OF SERVICE: 11/11/2021. SUBJECTIVE: A 81-year-old white female postoperative day 2 from IM nailing of a right intertrochante hilary fracture. She is doing reasonably well. Some pain, but controlled. No new complaints today. I solated right leg pain. OBJECTIVE: VITAL SIGNS: Temperature 36.6. Vital signs are stable. PHYSICAL EXAMINATION: GENERAL: Shows a cachectic elderly female. Lying in bed. She looks to be reasonably comfortable. EXTREMITIES: Examination of the right leg reveals the leg to be well aligned. Dressing is clean, dr y and intact. She can dorsiflex and plantarflex her foot appropriately. She is neurologically intac t. LABORATORY DATA: Hemoglobin 9.3. Hematocrit 31.2. Electrolytes are stable. ASSESSMENT: A 81-year-old white female with multiple medical comorbidities with end-stage lung disea se. Postoperative day 2 from intramedullary nailing of a right intertrochanteric fracture. She is d oing reasonably well orthopedically. PLAN: 1. DVT prophylaxis includes thigh-high TEDs, SCDs and back on her anticoagulation. 2. PT/OT. She can weight bear as tolerated in the right leg. 3. Pain control, doing okay with current pain regimen. 4. Disposition: She is orthopedically okay for discharge any time. I need to see her back 2-3 week s out from surgery date. She is fully weightbearing as tolerated in the right leg. Any orthopedic q uestions can be directed to me at [phone]. Job ID: [id number]
--- NOTE | 2021-11-11 08:00 | Hospitalist Progress Note ---
Date of Service November 11, 2021 Assessment & Plan (1) Pathological fracture, hip, unspecified, initial encounter for fracture: Plan: Right. Either osteoporotic, or very well could be pathologic from bone mets from her metastatic cancer. Vit D low 12.9 - 50,000 ergocalciferol to be given weekly POD #2 s/p Intramedullary nailing of right hip femur fracture - Douglas Hollis MD. EBL 50cc s/p 1 u PRBC for hgb 7.8 11/09, repeat stable 8.9, also some dilutional from IVF but also iron deficiency on chronic disease and will give dose of venofer today as well --> Hgb 9.3 WBAT RLL DVT Proph --> SCDs, TERRY beatty, ortho resumed Eliquis 11/10 but at 2.5mg BID for next 48-72 hours then can back to regular 5mg BID dosing in AM 11/12 Pain control * Tylenol TID scheduled * Roxanol at night as taking DISTILLER, and ordered Dilaudid 1mg Q3H prn for breakthrough pain which seems to be effective but she noted possible need for increased frequency and changed to Q2H * Dexamethasone 6mg IV daily x3 days, then changed t prednisone 60mg daily Abx switched from Doxy for COPD exacerbation to Levaquin 11/10 which will also cover for urine cx (although denied symptoms, did have hematuria which seems to be clearing with current treatment) and would complete additional 5 days Anxiety -- regarding palliative/hospice and end of life --> Xanax ordered scheduled as had been taking regularly at home 0.25mg dose Lengthy discussion with patient/daughter this evening --> if able to transfer with her daughter and daughter comfortable, plans for d/c on hospice tomorrow if anxiety/pain controlled with above measures --> Alerted CM, as daughter requesting litter van for transport CM to follow (2) COPD with exacerbation: Plan: Dexamethasone 6mg IV daily. 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 Would recommend placing ostomy bag over the site. Ostomy bag will collect this a bit better.----> Wound RN unable to place ostomy. Dressing changed today. Daughter reports changing the dressings 3-4x's each day. Even with dressings in place stool leaks all over the abdominal wall -- had been doing well all yesterday, some drainage today 11/10 and asked RN to change dressing and had increased drainage 11/11 which daughter states happens at home --> Continue wound care /dressings at d/c for comfort (5) Tachycardia: Plan: Suspect 2nd to pain, advanced lung disease, etc. PE is theoretically possible but she has been on full-strength anticoagulation at home with Eliquis --> now on 1/2 dose per ortho. if needed, increase back to 5mg BID sooner, is obv at high risk given underlying malignancy She has h/o pericardial effusion - likely malignant - this could be present and certainly worse than previous. Would not pursue work-up such as CTA chest, echo, etc. Rate 60-70s on examination today --> as above, goal for comfort/fixing hip given increased discomfort but hopeful for d/c home hospice again once tx #1 (6) Hematuria: Plan: Reported by pt's daughter. Would not pursue work-up given hospice status. Patient will have montaño during this stay. --> continues with some blood in montaño bag but also getting Pyridium -- urine cx with klebsiella oxytoca but continued to deny any symptoms/lower abd discomfort --> again, no work-up but with switch to levaquin as above, improvement in color of urine/clearing in tubing d/c montaño in AM (7) Abdominal abscess: Plan: Patient with prior h/o numerous intra-abdominal abscesses. CTs from spring 2020 showed such. Was receiving antibiotics for them during that time, then ultimately d/c due to transitioning to hospice. Has had intermittent fevers for weeks/months per daughter - low-grade - could be fevers from these abscesses, or her cancer, or other. Simply treat any abdominal pain with pain meds. Would not pursue work-up. 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 continue ostomy care. (10) Cigarette smoker: Plan: Nicoderm patch 14mg/day. encouraged cessation, but in light of above patient states she is continuing this at d/c as they provide her comfort (11) Chronic kidney disease, stage 3a: Plan: Cr stable renally dose meds when able/avoid nephrotoxins (12) Severe protein-calorie malnutrition: Plan: 2nd to stage 4 cancer. (13) Hypothyroidism: Plan: cont synthroid. TSH wnl. (14) Depression: Plan: cont home meds including sleep aids. (15) DVT prophylaxis: Plan: post-op resume her home Eliquis -- 2.5mg BID for 48-72hour per ortho, then increase back to 5mg BID 11/11 Plan: hopeful dc tomorrow with liter van back on hospice as above. CM alerted of need for liter van at d/c Admission and Anticipated Discharge Date Admission Date: November 08, 2021 Supervising Physician Co-Signing Physician Notes PA Supervision Note: I did not personally see or examine the patient today, but I verified all thorpe points of FREDA Winn's assessment and plan with the following exceptions/additions: None Subjective patient evaluated this morning, doing alright. stood up with PT. Pain present but controlled with exception of frequency, discussed can increase to Q2H as needed. Does have component of anxiety -- during discussion this evening with daughter at bedside, patient taking xanax fairly regularly around the clock and does not feel like bothering nursing staff to ask for such or for much of anything as she is worried about someone getting upset with her. Reassured we are here to help. Lengthy conversation with daughter and patient at bedside this evening regarding wishes. She would very much like her mother to come home (patient also in agreement) btu wanted to make sure she is comfortable with transfers first. RN to be alerted when patient wants to get up to see how this goes, but if possible can hopeful discharge back on hospice tomorrow. Discussed can order medications as needed until able to resume care and will alert CM of such plans. Daughter requests if able to d/c home will need liter van to get her home. Discussed montaño for comfort, patient states she would like to keep overnight tonight but agrees with pulling prior to discharge as she "needs to get up to get moving" and we agreed that is more than reasonable. Will also change xanax to scheduled and to alert of any uncontrolled anxiety or pain to ensure adequate coverage for discharge to home. Review of Systems Review of Systems: All systems reviewed & are unremarkable except as noted in HPI & below Physical Exam Physical Exam: general - chronically ill/frail appearing female sitting up in bed, no acute distress noted eyes- anicteric, pupils equal and reactive ent- mmm neck- trachea midline, without deviation, no JVD appreciated resp- + cough, diminshed in bases with coarse breath sounds posterior lung das, on 2L NC chest- port to L chest, covered, c/d/i no erythema or tenderness to palpation cardio- RRR, no m/r/g, no edema gi- +BS, soft, nontender, ostomy with liquid brown stool output, dressing with brown drainage noted/saturated gauze msk- RLE with dressing c/d/i, tender to palpation along dressing appropriately, no evidence of hematoma, some mild edema, NVI, pulses diminished but palpable, calves non-tender to palpation (except some slight tenderness to palpation lateral aspect distal LLE). lidocaine patch to R shoulder gu- montaño with orange urine (company marker yellow in tubing) psych- alert, oriented x 3, forgetfulness at times, easily re-oriented cooperative Results & Data Results & Data ([facility]) Vital Signs (Past 12 Hours) Vital Signs Temp Pulse Pulse Resp BP BP Pulse Ox 11/11/21 07:37 36.6 C 69 18 103/65 94 11/11/21 07:32 68 18 97 11/10/21 22:15 36.5 C 60 18 131/68 96 11/10/21 19:57 70 20 92 Laboratory Results 11/11/21 11/11/21 Range/Units 06:15 06:15 WBC 7.67 (4.8-10.8) K/uL RBC 3.45 L (4.2-5.4) M/uL Hgb 9.3 L (12.0-16.0) g/dL Hct 31.2 L (37-47) % MCV 90.4 (80-100) fL MCH 27.0 (25-34) pg MCHC 29.8 L (32-36) g/dL RDW Std Deviation 55.2 H (36.4-46.3) fL RDW Coeff of Raymundo 16.6 H (11.5-14.5) % Plt Count 211 (130-400) K/uL MPV 8.4 (7.4-10.4) fL Immature Gran % (Auto) 0.4 % Neut % (Auto) 82.2 % Lymph % (Auto) 7.8 % [place] % (Auto) 9.6 % Eos % (Auto) 0.0 % Baso % (Auto) 0.0 % Neut # (Auto) 6.30 (1.4-6.5) K/uL Lymph # (Auto) 0.60 L (1.2-3.4) K/uL [place] # (Auto) 0.74 H (0.11-0.59) K/uL Eos # (Auto) 0.00 (0-0.5) K/uL Baso # (Auto) 0.00 (0-0.2) K/uL Immature Gran # (Auto) 0.03 H (0.00-0.02) K/uL Sodium 134 L (136-145) mmol/L Potassium 4.8 (3.5-5.1) mmol/L Chloride 102 (98-107) mmol/L Carbon Dioxide 34 H (21-32) mmol/L Anion Gap -2 L (3-11) BUN 15 (6-23) mg/dl Creatinine 0.59 L (0.6-1.2) mg/dl Est Cr Clr Drug Dosing 65.3 ml/min Est GFR ( Amer) 101.0 ml/min Est GFR (Non-Af Amer) 87.2 ml/min BUN/Creatinine Ratio 25.4 H (10-20) Glucose 88 (70-99(Fasting)) mg/dl Calcium 8.2 L (8.5-10.1) mg/dl Magnesium 1.6 L (1.7-2.4) mg/dl PG Care Time/CCT Total # of Minutes Spent Total Time Spent with Patient: Total time spent is greater than 50% in coordination of care (as documented) at patient's floor/unit and/or counseling patient: Prolonged Care Time Prolonged Care Time: Yes 45 additional minutes spent for multiple trips to bedside and lengthy discussion with family at bedside this evening regarding wishes/planning for discharge and desire to continue hospice Coding Level of Care Code 37669 Subseq Hosp Care Lvl 3 Diagnoses Pathological fracture, hip, unspecified, initial encounter for fracture M84. 459A COPD with exacerbation J44.1 Stage 4 lung cancer C34.90 Abdominal wall fistula K63.2 Tachycardia R00.0 Hematuria R31.9 Abdominal abscess History of DVT (deep vein thrombosis) Z86.718 Colostomy status Z93.3 Cigarette smoker F17.210 Chronic kidney disease, stage 3a N18.3 Severe protein-calorie malnutrition E43 Hypothyroidism E03.9 Hypothyroidism type: acquired Depression F32.9 Active/Remission status: remission status unspecified Depression Type: major depressive disorder Major depression recurrence: unspecified whether recurrent DVT prophylaxis Z29.9 Additional Codes Prolonged Care Time - Prolonged Care Time: Yes ([id number]) (1) Depression Active/Remission status: remission status unspecified Depression Type: major depressive disorder Major depression recurrence: unspecified whether recurrent Qualified Code(s): F32.9 - Major depressive disorder, single episode, unspecified (2) Hypothyroidism Hypothyroidism type: acquired Qualified Code(s): E03.9 - Hypothyroidism, unspecified
[2021-11-11] MEDS: predniSONE 20 MG TAB PO SCH (08:22)
[2021-11-11] MEDS: PHENAZOPYRIDINE HCL 100 MG TAB PO SCH ×2 (08:22→21:22)
[2021-11-11] MEDS: PANTOprazole 40 MG TAB PO SCH (08:23)
[2021-11-11] MEDS: levoFLOXacin 500 MG TAB PO SCH (08:23)
[2021-11-11] MEDS: APIXABAN 2.5 MG TAB PO SCH ×2 (08:23→21:17)
[2021-11-11] MEDS: ACETAMINOPHEN 500 MG TAB PO SCH ×3 (08:23→21:14)
[2021-11-11] MEDS: guaiFENesin 600 MG TABCR PO SCH ×2 (08:23→21:19)
[2021-11-11] MEDS: NICOTINE 14 MG/24 HR PATCH TD SCH (08:24)
[2021-11-11] MEDS: LIDOCAINE 5% 1 PATCH TD SCH ×2 (08:25→09:58)
[2021-11-11] MEDS ORDERED: IRON SUCROSE 200 MG in 0.9 % SODIUM CHLORIDE 100 ML IV ONE (10:00)
[2021-11-11] MEDS: COUGH DROP (SUGAR FREE) LOZ 24 LOZ/1 BOX BUCCAL PRN ×2 (10:16→21:51)
[2021-11-11] MEDS ORDERED: IPRATROPIUM BROMIDE HFA INHALER INH PRN (10:28)
[2021-11-11] MEDS: MAGNESIUM SULFATE / D5W 1 GM/100 ML BAG IV SCH ×2 (11:08→13:10)
[2021-11-11] MEDS: HYDROcodone/HOMATROPINE SYRUP 5MG/1.5MG 5ML UDP PO PRN ×2 (13:33→21:46)
[2021-11-11] MEDS ORDERED: MAGNESIUM HYDROXIDE SUSP 30 ML UDC PO ONE (16:28)
[2021-11-11] MEDS: ALPRAZolam 0.5 MG TABLET PO SCH ×2 (17:08→19:56)
[2021-11-11] MEDS: POLYETHYLENE (MIRALAX) 17 GM PACK PO SCH (18:13)
[2021-11-11] MEDS: DOCUSATE SODIUM/SENNA 50/8.6MG TAB PO SCH (21:18)
[2021-11-11] MEDS: traZODone HCL 50 MG TAB PO SCH (21:24)
[2021-11-11] MEDS: ZOLPIDEM TARTRATE 5 MG TAB PO SCH (21:42)
[2021-11-11] MEDS: MoRPHine SULFATE 10 MG/0.5 ML UDP SL SCH (21:43)
[2021-11-11] MEDS: MoRPHine SULFATE 5 MG/0.25 ML UDP SL SCH (21:44)
[2021-11-12] MEDS: POLYETHYLENE (MIRALAX) 17 GM PACK PO SCH ×4 (00:08→17:21)
[2021-11-12] MEDS: ALPRAZolam 0.5 MG TABLET PO SCH ×6 (00:08→21:06)
[2021-11-12] MEDS: HYDROmorphone INJ 1 MG/ML SYRINGE IV PRN ×6 (00:14→16:08)
[2021-11-12] MEDS: HEPARIN 100 UNIT/ML 5ML FLUSH FLUSH PRN ×3 (00:15→16:09)
[2021-11-12] MEDS: LEVOTHYROXINE SODIUM 100 MCG TABLET PO SCH (05:38)
[2021-11-12] MEDS: HYDROcodone/HOMATROPINE SYRUP 5MG/1.5MG 5ML UDP PO PRN ×2 (06:22→16:23)
[2021-11-12 06:59] LABS: Hematocrit (blood only) 33.3 % (37-47); Hemoglobin 9.9 g/dL (12.0-16.0); Immature Granulocytes # (auto) 0.02 K/uL (0.00-0.02); Immature Granulocytes % (auto) 0.2 %; Lymphocytes # (auto) 0.92 K/uL (1.2-3.4); Lymphocytes % (auto) 10.6 %; Mean Corpuscular Hemoglobin 26.3 pg (25-34); Mean Corpuscular Hgb Conc 29.7 g/dL (32-36); Mean Corpuscular Volume 88.6 fL (80-100); Mean Platelet Volume 8.3 fL (7.4-10.4); Monocytes # (auto) 0.91 K/uL (0.11-0.59); Monocytes % (auto) 10.5 %; Neutrophils # (auto) 6.85 K/uL (1.4-6.5); Neutrophils % (auto) 78.7 %; Platelet Count 228 K/uL (130-400); RDW Coefficient of Variation 16.4 % (11.5-14.5); RDW Standard Deviation 53.8 fL (36.4-46.3); Red Blood Count 3.76 M/uL (4.2-5.4)
[2021-11-12 07:22] LABS: BUN Creatinine Ratio 22.4 (10-20); Calcium 8.4 mg/dl (8.5-10.1); Creatinine Clr Calc Pharmacy 66.5 ml/min; Est GFR (African American) 101.6 ml/min; Est GFR (Non-African American) 87.7 ml/min; Magnesium 1.5 mg/dl (1.7-2.4); Potassium 3.9 mmol/L (3.5-5.1)
--- NOTE | 2021-11-12 07:55 | Discharge Summary ---
Date of Service November 12, 2021 Admission HPI Per Admitting Provider Unfortunate 81yo female with chronic hypoxic respiratory failure 2nd to COPD and lung cancer, ongoing tobacco dependence, stage 4 lung ca, intra-abdominal abscesses, enterocutaneous fistula, colostomy status, and current hospice status who presents from home after suffering a fall this am in her living room. Patient has been on hospice since spring 2020 and over the last few weeks she has had no major changes in her overall health. This am, while walking to her couch, she simply tripped/fell/lost her footing and landed on the ground. Her right shoulder and right hip bore the brunt of the impact. She had immediate pain in these 2 locations and was unable to get up off the floor. She is not sure if she hit her head. Preceding the fall she denies any dizziness, lightheadedness, chest pain or other cardiopulmonary symptoms. In addition, for the past 24 hours, she has had worsening cough above her usual baseline. She feels mildly more short of breath than baseline. She is wheezing. Denies any fever yesterday/today, but does get intermittent fevers to about 100 degrees 1-2x's a week. They have attributed these to her intra-abdominal abscesses. These fevers are chronic. Denies any sick contacts. The hospice nurses who come to her home are masked at all times. Finally, both she and her daughter confirm they wish to proceed with ORIF of the right hip fracture for pain control/palliative purposes, and their goal is for her to return home with hospice if at all possible. She has been using liquid morphine prn for abdominal pain, and uses it at bedtime scheduled. Admission Exam Per Admitting Provider gen - very frail appearing, thin/cachectic, no acute distress eyes - PERRL mouth - MMM neck - no JVD; no pain to palpation over cervical spine posteriorly heart - tachy, s1 s2, no murmur lungs - b/l wheezes, no rales chest - mild tenderness to right upper chest near the clavicle, no deformity; port - left upper chest - clean abd - soft, NT, ND, BS+, colostomy bag Left abdomen with brown stool; fistula tract/opening lower abdomen in the midline with brown drainage ext - no edema, pulses 1+ b/l skin - no rash; no bruises musculo - right leg is externally rotated and shortened 2nd hip fracture; right shoulder - passive ROM leads to no pain/tenderness psych - a/o x 3 lymph - no cervical lymph nodes Principal Diagnosis Hip Fracture, UTI, COPD Exacerbation Discharge Data Allergies Allergy/AdvReac Type Severity Reaction Status Date / Time nickel Allergy Intermediate Rash Verified 11/08/21 10:52 venlafaxine AdvReac Intermediate Hypertensio Verified 11/08/21 10:52 n,Headache clarithromycin AdvReac Mild Nausea/Vomi Verified 11/08/21 10:52 ting codeine AdvReac Mild UPSET Verified 11/08/21 10:52 STOMACH hydrocodone AdvReac Mild Nausea/Vomi Verified 11/08/21 10:52 ting metronidazole [From Flagyl] AdvReac Mild Gastrointestinal Verified 11/08/21 10:52 Upset Consultations 11/08/21 13:31 ED Decision to Admit Stat 11/08/21 16:56 Consult Orthopedic Surgery Routine Procedures Performed Operation Date: 11/09/21 09:40 Actual Procedures p Intramedullary nailing of right hip femur fracture - Douglas Hollis MD Ordered Studies 11/08/21 13:59 CT head/brain wo con Routine 11/09/21 FL hip RT 2-3V Routine Discharge Plan Discharge Items Reason For Visit: RIGHT HIP FRACTURE, COPD EXACERBATION Discharge Diagnosis: IM Nail of Right HIp Fracture Weightbearing: Full weightbearing Follow-up/Referrals: Zion Bartholomew MD [Primary Care Provider] - Douglas Hollis MD [Physician] - (Orthopedic follow-up 2-3 weeks from surgery date.) Addtl Attending Provider Instructions: May fully weightbear as tolerated on right leg. Medications and DC Order Prescriptions: No Action Eliquis 5 mg tablet 5 mg PO BID Qty: 180 RF: 3 levothyroxine [Synthroid] 100 mcg tablet 100 mcg PO DAILYBB Qty: 90 RF: 0 haloperidol 5 mg tablet 2.5 mg PO Q4H PRN (Reason: nausea/agitation) RF: 0 morphine concentrate 100 mg/5 mL (20 mg/mL) solution 15 mg sublingual Q4H PRN (Reason: Pain) RF: 0 trazodone 100 mg tablet 150 mg PO HS RF: 0 phenazopyridine 100 mg tablet 100 mg PO BID RF: 0 pantoprazole 40 mg tablet,delayed release (DR/EC) 40 mg PO QAM RF: 0 hyoscyamine sulfate 0.125 mg tablet, sublingual 0.125 mg sublingual Q6H PRN (Reason: excess secretions) RF: 0 zolpidem 5 mg tablet 5 mg PO HS RF: 0 alprazolam 0.5 mg tablet,disintegrating 0.5 mg PO Q4H PRN (Reason: Anxiety) RF: 0 Admission Data Admit Date/Time: 11/08/21 14:08 Attending Provider: Pollo Moeller Admit Provider: Jayy Ash Primary Care Provider: Zion Bartholomew Other Providers: [facility] ; Jayy Ash ; Nikunj Oshea Coding
[2021-11-12] MEDS ORDERED: IRON SUCROSE 200 MG in 0.9 % SODIUM CHLORIDE 100 ML IV ONE (09:00)
[2021-11-12] MEDS: guaiFENesin 600 MG TABCR PO SCH ×2 (09:31→21:01)
[2021-11-12] MEDS: APIXABAN 5 MG TABLET PO SCH ×2 (09:31→21:01)
[2021-11-12] MEDS: predniSONE 20 MG TAB PO SCH (09:31)
[2021-11-12] MEDS: PANTOprazole 40 MG TAB PO SCH (09:47)
[2021-11-12] MEDS: ACETAMINOPHEN 500 MG TAB PO SCH ×3 (09:47→20:59)
[2021-11-12] MEDS: levoFLOXacin 500 MG TAB PO SCH (09:47)
[2021-11-12] MEDS: PHENAZOPYRIDINE HCL 100 MG TAB PO SCH ×2 (09:47→21:02)
[2021-11-12] MEDS: NICOTINE 14 MG/24 HR PATCH TD SCH (09:48)
[2021-11-12] MEDS: LIDOCAINE 5% 1 PATCH TD SCH ×2 (09:48→09:53)
[2021-11-12] MEDS: MAGNESIUM SULFATE / D5W 1 GM/100 ML BAG IV SCH ×3 (10:17→14:19)
[2021-11-12] MEDS ORDERED: FUROSEMIDE INJ 20 MG/2 ML VIAL IV ONE (10:24)
[2021-11-12] MEDS ORDERED: ALBUT/IPRATROP 3MG/0.5MG NEB 3 ML VIAL NEB STA (10:31)
--- NOTE | 2021-11-12 10:33 | Hospitalist Progress Note ---
Date of Service November 12, 2021 Assessment & Plan (1) Pathological fracture, hip, unspecified, initial encounter for fracture: Plan: Right.sided Either osteoporotic, or very well could be pathologic from bone mets from her metastatic cancer. Vit D low 12.9 - 50,000 ergocalciferol to be given weekly POD #4 s/p Intramedullary nailing of right hip femur fracture - Douglas Hollis MD. EBL 50cc s/p 1 u PRBC for hgb 7.8 11/09, repeat stable 8.9, also some dilutional from IVF but also iron deficiency on chronic disease --> Hgb 9.9 s/p 2 doses Venofer 11/12 WBAT RLL DVT Proph --> SCDs, TERRY beatty, ortho resumed Eliquis 11/10 but at 2.5mg BID for 48hrs, now back to 5mg BID AM 11/12 Pain control * Tylenol TID scheduled * Roxanol at night as taking WELDER 2ND SHIFT, and ordered Dilaudid 1mg Q3H prn for breakthrough pain which seems to be effective but she noted possible need for increased frequency and changed to Q2H * Dexamethasone 6mg IV daily x3 days, then changed to prednisone 60mg daily (could continue decadron 6mg and will change to such) Abx switched from Doxy for COPD exacerbation to Levaquin 11/10 which will also cover for urine cx (although denied symptoms, did have hematuria which seems to be clearing with current treatment) and would complete additional 5 days Anxiety -- regarding palliative/hospice and end of life --> Xanax ordered scheduled as had been taking regularly at home. Additional prn Increased SOB/respiratory distress this morning with SpO2 in 80s despite 6L NC --> Mag 1.5, ordered 3gm IV --> Duoneb x 1 now --> Lasix 20mg IV x 1 now Improvement in resp status/work of breathing this afternoon --> discussed with daughter at bedside and patient wanting to focus on comfort. Is ok if this mean end of life may come sooner. Will attempt to get home sunday if possible, otherwise considering GIP (unable to come in over weekend) Discussed with clinical coordinator and ok for visitation, 2 at a time, given current status (2) COPD with exacerbation: Plan: Dexamethasone 6mg IV daily. --> switched to prednisone 60mg PO 11/11, complete 5 days or continuous for likely oswald disease as well --> changed back to decadron PO for AM, can continue at d/c Doxy switched to Levaquin 11/10 as above for urinary coverage as well Mucinex BID, increased to 1200mg BID Hycodan prn --> given dose today with improvement and can send at d/c if requested schedule Xanax as taking at home as above Up to 6L NC with SpO2 90% Combivent QID -- per RT request, changed to PRN --> Will schedule XOPENEX, Mag 1.5 --> 3gm IV now Lasix 20mg IV x 1 Improvement this afternoon (3) Stage 4 lung cancer: Plan: On hospice at home with her daughter since 2020. 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 Would recommend placing ostomy bag over the site. Ostomy bag will collect this a bit better.----> Wound RN unable to place ostomy. Dressing changed today. Daughter reports changing the dressings 3-4x's each day. Even with dressings in place stool leaks all over the abdominal wall -- had been doing well all yesterday, some drainage today 11/10 and asked RN to change dressing and had increased drainage 11/11 which daughter states happens at home --> Continue wound care /dressings at d/c for comfort (5) Tachycardia: Plan: Suspect 2nd to pain, advanced lung disease, etc. PE is theoretically possible but she has been on full-strength anticoagulation at home with Eliquis --> now on 1/2 dose per ortho. if needed, increase back to 5mg BID sooner, is obv at high risk given underlying malignancy She has h/o pericardial effusion - likely malignant - this could be present and certainly worse than previous. Would not pursue work-up such as CTA chest, echo, etc. --> as above, goal for comfort/fixing hip given increased discomfort but hopeful for d/c home hospice again once tx #1 increased HR 2nd to respiratory distress as above --> Patient not wanting to pursue further work-up HR low 100s this afternoon Monitor (6) Hematuria: Plan: Reported by pt's daughter. Would not pursue work-up given hospice status. Patient will have montaño during this stay. --> continues with some blood in montaño bag but also getting Pyridium -- urine cx with klebsiella oxytoca but continued to deny any symptoms/lower abd discomfort --> again, no work-up but with switch to levaquin as above, improvement in color of urine/clearing in tubing but still orange from pyridium (7) Abdominal abscess: Plan: Patient with prior h/o numerous intra-abdominal abscesses. CTs from spring 2020 showed such. Was receiving antibiotics for them during that time, then ultimately d/c due to transitioning to hospice. Has had intermittent fevers for weeks/months per daughter - low-grade - could be fevers from these abscesses, or her cancer, or other. Simply treat any abdominal pain with pain meds. Would not pursue work-up. 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 continue ostomy care. (10) Cigarette smoker: Plan: Nicoderm patch 14mg/day. encouraged cessation, but in light of above patient states she is continuing this at d/c as they provide her comfort (11) Chronic kidney disease, stage 3a: Plan: Cr stable renally dose meds when able/avoid nephrotoxins (12) Severe protein-calorie malnutrition: Plan: 2nd to stage 4 cancer. (13) Hypothyroidism: Plan: cont synthroid. TSH wnl. (14) Depression: Plan: cont home meds including sleep aids. (15) DVT prophylaxis: Plan: post-op resume her home Eliquis -- 2.5mg BID for 48-72hour per ortho, then increase back to 5mg BID 11/12 Plan: moving to comfort measures more frequent xanax in addition to her scheduled dose Dilaudid available PO and IV if needed for breakthrough Admission and Anticipated Discharge Date Admission Date: November 08, 2021 Subjective patient evaluated this morning increased work of breathing and SpO2 decreased to 80s and O2 upped to 5L. Currently with non-productive cough. Has not gotten further breathing treatment since changing to prn yesterday and asked RT to come up to administer dose. Mag also low and discussed could be worsening current issue as well as volume overload and will give dose of lasix x 1 now. No fever, chills, chest pain. Appetitie fair, less than day prior. Updated daughter on plan that if mag replacement/breathing treatment and lasix effective at getting patient back to baseline will attempt d/c back to home later today. Patient and daughter wanting to continue montaño catheter for now. --> Per RN, breathing treatment improved shortness of breath/respiratory distress this morning, mag infusing --> later patient stating to supervising provider she would like to pass today. Discussed will continue inpatient status and will come back later to discuss with daughter and patient regarding inpatient stay/possible GIP pending condition. --> Daughter/patient discussion this evening, wanting to focus on comfort and realize that electrolyte replacement/escalation in antibiotics likely only stop- gap. Wanting to focus on comfort. Will have additional pain medication/air hunger and extra as needed xanax for now. If able, can attempt home on sunday but if not will consider changing to GIP. CM following. Review of Systems Review of Systems: All systems reviewed & are unremarkable except as noted in HPI & below Physical Exam Physical Exam: general - chronically ill/frail appearing female sitting up in bed, moderate respiratory distress/tachypneic, cough, on 6L NC eyes- anicteric, pupils equal and reactive ent- mmm neck- trachea midline, without deviation, + JVD resp- + cough, diminished in bases with coarse breath sounds, tachypnea, accessory muscle use chest- port to L chest, covered, c/d/i no erythema or tenderness to palpation cardio- RRR, no m/r/g, no edema gi- +BS, soft, nontender, ostomy with liquid brown stool output, dressing with brown drainage noted/saturated gauze msk- RLE with dressing c/d/i, tender to palpation along dressing appropriately, no evidence of hematoma, some mild edema, NVI, pulses diminished but palpable, calves non-tender to palpation (except some slight tenderness to palpation lateral aspect distal LLE). lidocaine patch to R shoulder gu- montaño with orange urine draining psych- alert, oriented x 3, forgetfulness at times, easily re-oriented, cooperative Results & Data Results & Data ([facility]) Vital Signs (Past 12 Hours) Vital Signs Temp Pulse Resp BP Pulse Ox 11/12/21 10:15 36.8 C 101 H 18 147/76 H 86 L 11/12/21 09:16 36.9 C 119 H 18 117/75 86 L Laboratory Results 11/12/21 11/12/21 Range/Units 06:40 06:40 WBC 8.70 (4.8-10.8) K/uL RBC 3.76 L (4.2-5.4) M/uL Hgb 9.9 L (12.0-16.0) g/dL Hct 33.3 L (37-47) % MCV 88.6 (80-100) fL MCH 26.3 (25-34) pg MCHC 29.7 L (32-36) g/dL RDW Std Deviation 53.8 H (36.4-46.3) fL RDW Coeff of Raymundo 16.4 H (11.5-14.5) % Plt Count 228 (130-400) K/uL MPV 8.3 (7.4-10.4) fL Immature Gran % (Auto) 0.2 % Neut % (Auto) 78.7 % Lymph % (Auto) 10.6 % Kings % (Auto) 10.5 % Eos % (Auto) 0.0 % Baso % (Auto) 0.0 % Neut # (Auto) 6.85 H (1.4-6.5) K/uL Lymph # (Auto) 0.92 L (1.2-3.4) K/uL Kings # (Auto) 0.91 H (0.11-0.59) K/uL Eos # (Auto) 0.00 (0-0.5) K/uL Baso # (Auto) 0.00 (0-0.2) K/uL Immature Gran # (Auto) 0.02 (0.00-0.02) K/uL Sodium 134 L (136-145) mmol/L Potassium 3.9 (3.5-5.1) mmol/L Chloride 97 L (98-107) mmol/L Carbon Dioxide 34 H (21-32) mmol/L Anion Gap 3 (3-11) BUN 13 (6-23) mg/dl Creatinine 0.58 L (0.6-1.2) mg/dl Est Cr Clr Drug Dosing 66.5 ml/min Est GFR ( Amer) 101.6 ml/min Est GFR (Non-Af Amer) 87.7 ml/min BUN/Creatinine Ratio 22.4 H (10-20) Glucose 84 (70-99(Fasting)) mg/dl Calcium 8.4 L (8.5-10.1) mg/dl Magnesium 1.5 L (1.7-2.4) mg/dl PG Care Time/CCT Total # of Minutes Spent Total Time Spent with Patient: Total time spent is greater than 50% in coordination of care (as documented) at patient's floor/unit and/or counseling patient: Coding Level of Care Code 65738 Subseq Hosp Care Lvl 3 Diagnoses Pathological fracture, hip, unspecified, initial encounter for fracture M84.459A COPD with exacerbation J44.1 Stage 4 lung cancer C34.90 Abdominal wall fistula K63.2 Tachycardia R00.0 Hematuria R31.9 Abdominal abscess History of DVT (deep vein thrombosis) Z86.718 Colostomy status Z93.3 Cigarette smoker F17.210 Chronic kidney disease, stage 3a N18.3 Severe protein-calorie malnutrition E43 Hypothyroidism E03.9 Hypothyroidism type: acquired Depression F32.9 Active/Remission status: remission status unspecified Depression Type: major depressive disorder Major depression recurrence: unspecified whether recurrent DVT prophylaxis Z29.9 (1) Depression Active/Remission status: remission status unspecified Depression Type: major depressive disorder Major depression recurrence: unspecified whether recurrent Qualified Code(s): F32.9 - Major depressive disorder, single episode, unspecified (2) Hypothyroidism Hypothyroidism type: acquired Qualified Code(s): E03.9 - Hypothyroidism, unspecified
[2021-11-12] MEDS ORDERED: ALBUT/IPRATROP 3MG/0.5MG NEB 3 ML VIAL ONE (10:38)
[2021-11-12] MEDS ORDERED: LORazepam 0.25 MG/0.5 ML VIAL IV PRN (16:01)
[2021-11-12] MEDS ORDERED: ALPRAZolam 0.5 MG TABLET PO PRN (16:53)
[2021-11-12] MEDS: IPRATROPIUM BROMIDE HFA INHALER INH SCH ×2 (17:56→20:06)
[2021-11-12] MEDS: DOCUSATE SODIUM/SENNA 50/8.6MG TAB PO SCH (21:01)
[2021-11-12] MEDS: traZODone HCL 50 MG TAB PO SCH (21:02)
[2021-11-12] MEDS: ZOLPIDEM TARTRATE 5 MG TAB PO SCH (21:05)
[2021-11-12] MEDS: MoRPHine SULFATE 5 MG/0.25 ML UDP SL SCH (21:06)
[2021-11-12] MEDS: MoRPHine SULFATE 10 MG/0.5 ML UDP SL SCH (21:07)
[2021-11-13] MEDS: POLYETHYLENE (MIRALAX) 17 GM PACK PO SCH ×4 (00:08→17:39)
[2021-11-13] MEDS: ALPRAZolam 0.5 MG TABLET PO SCH ×6 (00:11→20:22)
[2021-11-13] MEDS: LEVOTHYROXINE SODIUM 100 MCG TABLET PO SCH (05:42)
[2021-11-13] MEDS: IPRATROPIUM BROMIDE HFA INHALER INH SCH ×4 (07:20→19:47)
--- NOTE | 2021-11-13 08:06 | Hospitalist Progress Note ---
Date of Service November 13, 2021 Assessment & Plan (1) Pathological fracture, hip, unspecified, initial encounter for fracture: Plan: Right.sided Either osteoporotic, or very well could be pathologic from bone mets from her metastatic cancer. Vit D low 12.9 - 50,000 ergocalciferol started POD #4 s/p Intramedullary nailing of right hip femur fracture - Douglas Hollis MD. EBL 50cc s/p 1 u PRBC for hgb 7.8 11/09, repeat stable 8.9, also some dilutional from IVF but also iron deficiency on chronic disease --> Hgb 10.7 s/p 2 doses Venofer 11/12 WBAT RLL DVT Proph --> SCDs, TERRY beatty, ortho resumed Eliquis 11/10 but at 2.5mg BID for 48hrs, now back to 5mg BID AM 11/12 Pain control * Tylenol TID scheduled * Roxanol at night as taking TACK COVERER, and ordered Dilaudid 1mg Q3H prn for breakthrough pain which seems to be effective but she noted possible need for increased frequency and changed to Q2H * Dexamethasone 6mg IV daily x3 days, then changed to prednisone 60mg daily and changed back to decadron 6mg daily 11/13 -- can continue at d/c as this has improved baseline pain and suspect patient with bony mets given below Abx switched from Doxy for COPD exacerbation to Levaquin 11/10, to also cover for urine (although denied symptoms, did have hematuria which seems to be clearing with current treatment) and would complete course with such Anxiety -- regarding palliative/hospice and end of life --> Xanax ordered scheduled as had been taking regularly at home. Additional prn Increased SOB/respiratory distress AM 11/12, increased O2 up to 6L NC with SpO2 mid80s --> Mag 1.5, ordered 3gm IV --> Duoneb x 1 now --> Lasix 20mg IV x 1 now Improvement in resp status/work of breathing in afternoon --> discussed with daughter at bedside and patient wanting to focus on comfort. Is ok if this mean end of life may come sooner. Will replace mag/control symptoms in hopes to get patient home on Sunday if possible but otherwise need to consider GIP Discussed with clinical coordinator and ok for visitation, 2 at a time, given current status 11/13 --> Decreased respiratory distress, not tachypneic. Down to 3L NC and lungs sound much better after mag replacement/nebs, changing xopenex to scheduled, and dose of lasix on 11/12 --> Mag 1.6 today with K 3.2 --> Will replace today to prevent further episode of respiratory distress given patient expressing wishes to see if able to make it happen to get her home with hospice tomorrow with family. Stable at this time but does have prn xanax in addition to scheduled dosing as she was taking at home and dilaudid available both PO/IV (although reported less pain as well) if she becomes in distress with decompensation that would require more aggressive intervention If needing GIP, hospice can eval starting tomorrow as they were unable to have evaluation over the weekend and symptoms currently controlled. (2) COPD with exacerbation: Plan: Dexamethasone 6mg IV daily. --> switched to prednisone 60mg PO 11/11, complete 5 days or continuous for likely oswald disease as well --> changed back to Decadron PO for AM, can continue at d/c Doxy switched to Levaquin 11/10 as above for urinary coverage as well Mucinex BID 1200mg BID, Hycodan prn scheduled Xanax as taking at home as above SCHEDULED XOPENEX to prevent tachycardia as rates elevated and again after Duoneb 11/12 but improved and 70-90s today Mag/lasix/neb 11/12 with improvement and about back to baseline. Mag 1.6 on AM labs and will order replacement in hopes of getting home tomorrow as above Currently 93% on 3L and lungs sound MUCH IMPROVED compared to 11/12 Titrate O2 as needed to maintain sat/for comfort (3) Stage 4 lung cancer: Plan: On hospice at home with her daughter since 2020. 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 Would recommend placing ostomy bag over the site. Ostomy bag will collect this a bit better.----> Wound RN unable to place ostomy. Dressing changed today. Daughter reports changing the dressings 3-4x's each day. Even with dressings in place stool leaks all over the abdominal wall -- had been doing well all yesterday, some drainage today 11/10 and asked RN to change dressing and had increased drainage 11/11 which daughter states happens at home Increased draining again 11/12, 11/13 and continued dressing changed. Wound care at d/c for comfort (5) Tachycardia: Plan: Suspect 2nd to pain, advanced lung disease, etc. PE is theoretically possible but she has been on full-strength anticoagulation at home with Eliquis --> now on 1/2 dose per ortho. if needed, increase back to 5mg BID sooner, is obv at high risk given underlying malignancy She has h/o pericardial effusion - likely malignant - this could be present and certainly worse than previous. Would not pursue work-up such as CTA chest, echo, etc. --> as above, goal for comfort/fixing hip given increased discomfort but hopeful for d/c home hospice again once tx #1 increased HR 2nd to respiratory distress as above, now improved with medications --> Patient not wanting to pursue further work-up (6) Hematuria: Plan: Reported by pt's daughter. Would not pursue work-up given hospice status. Patient will have montaño during this stay. --> continues with some blood in montaño bag but also getting Pyridium -- urine cx with klebsiella oxytoca but continued to deny any symptoms/lower abd discomfort --> again, no work-up but with switch to levaquin as above, improvement in color of urine/clearing in tubing but still orange from pyridium (7) Abdominal abscess: Plan: Patient with prior h/o numerous intra-abdominal abscesses. CTs from spring 2020 showed such. Was receiving antibiotics for them during that time, then ultimately d/c due to transitioning to hospice. Has had intermittent fevers for weeks/months per daughter - low-grade - could be fevers from these abscesses, or her cancer, or other. Simply treat any abdominal pain with pain meds. Would not pursue work-up. 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 continue ostomy care. (10) Cigarette smoker: Plan: Nicoderm patch 14mg/day. encouraged cessation, but in light of above patient states she is continuing this at d/c as they provide her comfort (11) Chronic kidney disease, stage 3a: Plan: Cr stable renally dose meds when able/avoid nephrotoxins (12) Severe protein-calorie malnutrition: Plan: 2nd to stage 4 cancer. (13) Hypothyroidism: Plan: cont synthroid. TSH wnl. (14) Depression: Plan: cont home meds including sleep aids. (15) DVT prophylaxis: Plan: post-op resume her home Eliquis -- 2.5mg BID for 48-72hour per ortho, then increase back to 5mg BID 11/12 Plan: moving to comfort measures, hopefully can get her home tomorrow with hospice back on board Xanax/Dilaudid available (both scheduled and prn) Mag/K replacement in hopes to get her home tomorrow Admission and Anticipated Discharge Date Admission Date: November 08, 2021 Subjective patient evaluated this morning feeling much better than day before work of breathing improved and O2 demands down family to visit later wishes are still to return home tomorrow on hospice if at all possible improvement of appetite pain much better today as well, still wants to keep montaño at discharge discussed if O2 needs stable/pain controlled will attempt to arrange for home w [facility] hospice as those were ultimate wishes but she does note understanding if this is unable to occur No fever (reported feeling cold), no chest pain, decreased SOB, no abd pain. Nausea this morning but improved with zofran. Questions/concerns addressed at this time. Review of Systems Review of Systems: All systems reviewed & are unremarkable except as noted in HPI & below Physical Exam Physical Exam: general - chronically ill/frail appearing female sitting up in bed, no acute distress, watching TV eyes- pupils equal, reactive ent- slgihtly dry mmm neck- trachea midline, without deviation, + JVD resp- + cough (less), diminished in bases with coarse breath sounds (MUCH IMPROvED), no further diffuse wheezing, not tachypneic, currently down to 3L NC chest- port to L chest, covered, c/d/i no erythema or tenderness to palpation cardio- RRR, no m/r/g gi- +BS, soft, nontender, ostomy with liquid brown stool output, dressing with brown/yellow drainage noted/saturated gauze msk- RLE with dressing c/d/i, tender to palpation along dressing appropriately to more distal aspect of dressing, no evidence of hematoma, some mild edema, NVI, pulses diminished but palpable, calves non-tender to palpation. lidocaine patch to R shoulder gu- montaño with orange urine draining psych- alert, oriented x 3, forgetfulness at times, easily re-oriented, cooperative Results & Data Results & Data ([facility]) Vital Signs (Past 12 Hours) Vital Signs Temp Pulse Pulse Resp BP Pulse Ox Pulse Ox 11/13/21 07:21 91 H 16 95 11/13/21 07:19 36.5 C 91 H 14 115/69 95 11/13/21 04:41 95 11/12/21 21:17 36.4 C L 86 16 131/73 94 11/12/21 21:00 94 11/12/21 20:07 104 H 20 93 Laboratory Results 11/13/21 11/13/21 Range/Units 08:46 08:46 WBC 8.25 (4.8-10.8) K/uL RBC 3.99 L (4.2-5.4) M/uL Hgb 10.7 L (12.0-16.0) g/dL Hct 35.1 L (37-47) % MCV 88.0 (80-100) fL MCH 26.8 (25-34) pg MCHC 30.5 L (32-36) g/dL RDW Std Deviation 52.8 H (36.4-46.3) fL RDW Coeff of Raymundo 16.5 H (11.5-14.5) % Plt Count 233 (130-400) K/uL MPV 8.5 (7.4-10.4) fL Sodium 134 L (136-145) mmol/L Potassium 3.2 L (3.5-5.1) mmol/L Chloride 95 L (98-107) mmol/L Carbon Dioxide 37 H (21-32) mmol/L Anion Gap 2 L (3-11) BUN 12 (6-23) mg/dl Creatinine 0.55 L (0.6-1.2) mg/dl Est Cr Clr Drug Dosing 70.1 ml/min Est GFR ( Amer) 103.4 ml/min Est GFR (Non-Af Amer) 89.2 ml/min BUN/Creatinine Ratio 21.8 H (10-20) Glucose 105 H (70-99(Fasting)) mg/dl Calcium 8.4 L (8.5-10.1) mg/dl Magnesium 1.6 L (1.7-2.4) mg/dl PG Care Time/CCT Total # of Minutes Spent Total Time Spent with Patient: Total time spent is greater than 50% in coordination of care (as documented) at patient's floor/unit and/or counseling patient: Coding Level of Care Code 71636 Subseq Hosp Care Lvl 3 Diagnoses Pathological fracture, hip, unspecified, initial encounter for fracture M84.459A COPD with exacerbation J44.1 Stage 4 lung cancer C34.90 Abdominal wall fistula K63.2 Tachycardia R00.0 Hematuria R31.9 Abdominal abscess History of DVT (deep vein thrombosis) Z86.718 Colostomy status Z93.3 Cigarette smoker F17.210 Chronic kidney disease, stage 3a N18.3 Severe protein-calorie malnutrition E43 Hypothyroidism E03.9 Hypothyroidism type: acquired Depression F32.9 Active/Remission status: remission status unspecified Depression Type: major depressive disorder Major depression recurrence: unspecified whether recurrent DVT prophylaxis Z29.9 (1) Depression Active/Remission status: remission status unspecified Depression Type: major depressive disorder Major depression recurrence: unspecified whether recurrent Qualified Code(s): F32.9 - Major depressive disorder, single episode, unspecified (2) Hypothyroidism Hypothyroidism type: acquired Qualified Code(s): E03.9 - Hypothyroidism, unspecified
[2021-11-13] MEDS: HEPARIN 100 UNIT/ML 5ML FLUSH FLUSH PRN ×5 (08:49→19:25)
[2021-11-13 09:08] LABS: Hematocrit (blood only) 35.1 % (37-47); Hemoglobin 10.7 g/dL (12.0-16.0); Mean Corpuscular Hemoglobin 26.8 pg (25-34); Mean Corpuscular Hgb Conc 30.5 g/dL (32-36); Mean Platelet Volume 8.5 fL (7.4-10.4); Platelet Count 233 K/uL (130-400); RDW Coefficient of Variation 16.5 % (11.5-14.5); RDW Standard Deviation 52.8 fL (36.4-46.3); Red Blood Count 3.99 M/uL (4.2-5.4); White Blood Count 8.25 K/uL (4.8-10.8)
[2021-11-13 09:27] LABS: BUN Creatinine Ratio 21.8 (10-20); Calcium 8.4 mg/dl (8.5-10.1); Creatinine Clr Calc Pharmacy 70.1 ml/min; Est GFR (African American) 103.4 ml/min; Est GFR (Non-African American) 89.2 ml/min; Magnesium 1.6 mg/dl (1.7-2.4); Potassium 3.2 mmol/L (3.5-5.1)
[2021-11-13] MEDS: ONDANSETRON INJ 2 MG/ML 2 ML VIAL IV PRN (10:00)
[2021-11-13] MEDS: NICOTINE 14 MG/24 HR PATCH TD SCH (10:04)
[2021-11-13] MEDS: LIDOCAINE 5% 1 PATCH TD SCH ×2 (10:05)
[2021-11-13] MEDS: ACETAMINOPHEN 500 MG TAB PO SCH ×3 (10:15→20:10)
[2021-11-13] MEDS: dexAMETHasone 4 MG TAB PO SCH (10:15)
[2021-11-13] MEDS: PHENAZOPYRIDINE HCL 100 MG TAB PO SCH ×2 (10:15→20:13)
[2021-11-13] MEDS: PANTOprazole 40 MG TAB PO SCH (10:16)
[2021-11-13] MEDS: guaiFENesin 600 MG TABCR PO SCH ×2 (10:16→20:13)
[2021-11-13] MEDS: levoFLOXacin 500 MG TAB PO SCH (10:16)
[2021-11-13] MEDS: APIXABAN 5 MG TABLET PO SCH ×2 (10:16→20:11)
[2021-11-13] MEDS: HYDROmorphone INJ 1 MG/ML SYRINGE IV PRN ×4 (11:50→19:24)
[2021-11-13] MEDS ORDERED: POTASSIUM CHLORIDE CRTAB 20 MEQ TABCR PO STA (12:27)
[2021-11-13] MEDS: MAGNESIUM SULFATE / D5W 1 GM/100 ML BAG IV SCH ×2 (13:27→15:42)
[2021-11-13] MEDS: DOCUSATE SODIUM/SENNA 50/8.6MG TAB PO SCH (20:12)
[2021-11-13] MEDS: traZODone HCL 50 MG TAB PO SCH (20:14)
[2021-11-13] MEDS: MoRPHine SULFATE 10 MG/0.5 ML UDP SL SCH (20:21)
[2021-11-13] MEDS: MoRPHine SULFATE 5 MG/0.25 ML UDP SL SCH (20:22)
[2021-11-13] MEDS: ZOLPIDEM TARTRATE 5 MG TAB PO SCH (20:22)
[2021-11-14] MEDS: POLYETHYLENE (MIRALAX) 17 GM PACK PO SCH ×5 (00:30→21:33)
[2021-11-14] MEDS: HYDROmorphone INJ 1 MG/ML SYRINGE IV PRN ×7 (00:31→18:28)
[2021-11-14] MEDS: HEPARIN 100 UNIT/ML 5ML FLUSH FLUSH PRN ×7 (00:31→18:29)
[2021-11-14] MEDS: ALPRAZolam 0.5 MG TABLET PO SCH ×6 (00:31→21:27)
[2021-11-14] MEDS: LEVOTHYROXINE SODIUM 100 MCG TABLET PO SCH (05:37)
[2021-11-14] MEDS: ALBUTEROL HFA 8 GM INHALER INH PRN ×4 (07:45→19:44)
[2021-11-14] MEDS: IPRATROPIUM BROMIDE HFA INHALER INH SCH ×4 (07:45→19:44)
[2021-11-14] MEDS: LIDOCAINE 5% 1 PATCH TD SCH ×2 (07:59→08:03)
[2021-11-14] MEDS: NICOTINE 14 MG/24 HR PATCH TD SCH (08:01)
[2021-11-14] MEDS: PHENAZOPYRIDINE HCL 100 MG TAB PO SCH ×2 (08:02→20:22)
[2021-11-14] MEDS: guaiFENesin 600 MG TABCR PO SCH ×2 (08:02→21:28)
[2021-11-14] MEDS: PANTOprazole 40 MG TAB PO SCH (08:43)
[2021-11-14] MEDS: ACETAMINOPHEN 500 MG TAB PO SCH ×3 (08:43→20:21)
[2021-11-14] MEDS: dexAMETHasone 4 MG TAB PO SCH (08:43)
[2021-11-14] MEDS: APIXABAN 5 MG TABLET PO SCH ×2 (08:44→21:32)
[2021-11-14] MEDS: levoFLOXacin 500 MG TAB PO SCH (08:44)
[2021-11-14] MEDS ORDERED: FUROSEMIDE INJ 20 MG/2 ML VIAL IV ONE (12:21)
[2021-11-14] MEDS: COUGH DROP (SUGAR FREE) LOZ 24 LOZ/1 BOX BUCCAL PRN (14:54)
--- NOTE | 2021-11-14 17:07 | Hospitalist Progress Note ---
Date of Service November 14, 2021 Assessment & Plan (1) Pathological fracture, hip, unspecified, initial encounter for fracture: Plan: - Right sided; Either osteoporotic, or very well could be pathologic from bone mets from her metastatic cancer. - Vit D low 12.9 - 50,000 ergocalciferol started - S/P Intramedullary nailing of right hip femur fracture on 11/09 - Douglas Hollis MD. - S/P 1 unit PRBC on 11/09 --> Hgb 10.7 currently with IV Venfor given - WBAT RLL - Continue pain control - Tylenol, Roxanol, Diluadid; Continue Dexamethasone 6 mg daily -- Taking a lot of IV coverage and may need to try orals to assist with home transition - may be better served with more Roxanol and not just at night? (2) COPD with exacerbation: Plan: - Initially treated with IV steroids - continue Decadron for respiratory and seems to help control pain likely from bony mets - Has had atypical coverage; convert Levaquin to Augmentin more for urinary coverage - Mucinex BID; Cough suppressant PRN - Continue Albuterol PRN; Atrovent QID - Had worsening respiratory distress on 11/12 requiring supplemental O2 placement which has improved however mostly complaining of cough but this is very weak; sounds like this mucous in upper airways she can't adequately cough out -- JOSE E Xanax to help with anxiety; Give additional dose of Lasix x 1 - Titrate O2 as needed to maintain sat/for comfort (3) Stage 4 lung cancer: Plan: - On hospice at home with her daughter since 2020 - Goal is to return home with hospice post-discharge (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 Ostomy bag will collect this a bit better.----> Wound RN unable to place ostomy. Dressing changed today. - Daughter reports changing the dressings 3-4x's each day. - Even with dressings in place stool leaks all over the abdominal wall (5) Tachycardia: Plan: - Currently resolved - Suspect 2nd to pain, advanced lung disease, anxiety etc. - PE is theoretically possible but she has been on full-strength anticoagulation at home with Eliquis -- She has h/o pericardial effusion - likely malignant - this could be present and certainly worse than previous. -- Would not pursue work-up such as CTA chest, echo, etc. --> as above, goal for comfort/fixing hip given increased discomfort but hopeful for d/c home hospice again --> Patient not wanting to pursue further work-up (6) Hematuria: Plan: - Reported by pt's daughter. -- Would not pursue work-up given hospice status. - Patient will have montaño during this stay can continue on D/C given hospice -- Is on Pyridium so may be misleading on urine color -- Abx for UTI - will cover with Augmentin until 11/17 - Cx with klebsiella oxytoca (7) Abdominal abscess: Plan: - Patient with prior h/o numerous intra-abdominal abscesses. -- CTs from spring 2020 showed such. - Was receiving antibiotics for them during that time, then ultimately d/c due to transitioning to hospice. - Has had intermittent fevers for weeks/months per daughter - low-grade - could be fevers from these abscesses, or her cancer, or other. - Simply treat any abdominal pain with pain meds. - Would not pursue work-up. (8) History of DVT (deep vein thrombosis): Plan: - Continue Eliquis (9) Cigarette smoker: Plan: - Nicoderm patch 14mg/day. - Encouraged cessation, but in light of above patient states she is continuing this at d/c as they provides her comfort -- WILL HAVE TO BE MINDFUL WITH SUPPLEMENTAL O2 AND SMOKING (10) Chronic kidney disease, stage 3a: Plan: - STABLE - Renally dose meds when able/avoid nephrotoxins (11) Severe protein-calorie malnutrition: Plan: - NOTED - 2/2 stage 4 cancer (12) Hypothyroidism: Plan: - TSH WNL - Cont Synthroid (13) Depression: Plan: - Cont home meds including sleep aids. (14) DVT prophylaxis: Plan: - Eliquis Plan: - Moving to comfort measures - plan to transition back to hospice - patient expressing some anxiety in that regards and will work on improving cough and comfort prior to transition home Admission and Anticipated Discharge Date Admission Date: November 08, 2021 Subjective No acute events overnight. Continues to utilize IV pain medication. Reports having pain but mostly concerned about her cough. She has a weak cough and sounds like she has upper airway sputum just can't expel. However looks comfortable. Remains on RA and no respiratory distress noted. Reports anxiety about leaving the hospital. Review of Systems Review of Systems: All systems reviewed & are unremarkable except as noted in Subjective Physical Exam Physical Exam: PHYSICAL EXAM General Appearance: frail elderly woman in NAD who is A&O x 3 HEENT: Head is normocephalic/atraumatic; Hearing grossly intact Neck: Supple; Trachea midline Heart: RRR with no M/G/R Lungs: CTA in all lung das bilaterally; Respirations unlabored; Neg accessory muscle use Abdomen: Soft, non-tender, non-distended; Positive BS x 4 quadrants; + ostomy Extremities: Neg cyanosis or edema Neurological: Speech clear; Gross motor/sensory function intact; Neg focal neurologic deficits Psychiatric: Appropriate mood/affect; intermittent eye contact Skin: Normal Color; Warm/Dry Results & Data Results & Data ([facility]) Vital Signs (Past 12 Hours) Vital Signs Temp Pulse Resp BP Pulse Ox 11/14/21 15:05 73 18 96 11/14/21 15:00 36.7 C 73 18 108/67 95 11/14/21 10:59 87 18 93 11/14/21 07:46 99 H 20 91 11/14/21 07:20 36.6 C 90 16 119/67 93 PG Care Time/CCT Total # of Minutes Spent Total Time Spent with Patient: Total time spent is greater than 50% in coordination of care (as documented) at patient's floor/unit and/or counseling patient: Coding Level of Care Code 89772 Subseq Hosp Care Lvl 3 Diagnoses Pathological fracture, hip, unspecified, initial encounter for fracture M84.459A COPD with exacerbation J44.1 Stage 4 lung cancer C34.90 Abdominal wall fistula K63.2 Tachycardia R00.0 Hematuria R31.9 Abdominal abscess History of DVT (deep vein thrombosis) Z86.718 Cigarette smoker F17.210 Chronic kidney disease, stage 3a N18.3 Severe protein-calorie malnutrition E43 Hypothyroidism E03.9 Hypothyroidism type: acquired Depression F32.9 Depression Type: major depressive disorder Major depression recurrence: unspecified whether recurrent Active/Remission status: remission status unspecified DVT prophylaxis Z29.9 (1) Hypothyroidism Hypothyroidism type: acquired Qualified Code(s): E03.9 - Hypothyroidism, unspecified (2) Depression Depression Type: major depressive disorder Major depression recurrence: unspecified whether recurrent Active/Remission status: remission status unspecified Qualified Code(s): F32.9 - Major depressive disorder, single episode, unspecified
[2021-11-14] MEDS: traZODone HCL 50 MG TAB PO SCH (20:21)
[2021-11-14] MEDS: MoRPHine SULFATE 5 MG/0.25 ML UDP SL SCH (20:23)
[2021-11-14] MEDS: DOCUSATE SODIUM/SENNA 50/8.6MG TAB PO SCH (20:23)
[2021-11-14] MEDS: ZOLPIDEM TARTRATE 5 MG TAB PO SCH (20:23)
[2021-11-14] MEDS: MoRPHine SULFATE 10 MG/0.5 ML UDP SL SCH (20:23)
[2021-11-15] MEDS: ALPRAZolam 0.5 MG TABLET PO SCH ×6 (03:40→19:48)
[2021-11-15] MEDS: POLYETHYLENE (MIRALAX) 17 GM PACK PO SCH ×4 (04:35→23:18)
[2021-11-15] MEDS: LEVOTHYROXINE SODIUM 100 MCG TABLET PO SCH (04:35)
[2021-11-15] MEDS: IPRATROPIUM BROMIDE HFA INHALER INH SCH ×4 (07:48→19:51)
[2021-11-15] MEDS: ALBUTEROL HFA 8 GM INHALER INH PRN ×3 (07:48→19:51)
[2021-11-15] MEDS: HYDROmorphone INJ 1 MG/ML SYRINGE IV PRN (08:03)
[2021-11-15] MEDS: HEPARIN 100 UNIT/ML 5ML FLUSH FLUSH PRN (08:04)
[2021-11-15] MEDS: ACETAMINOPHEN 500 MG TAB PO SCH ×3 (08:11→20:51)
[2021-11-15] MEDS: PANTOprazole 40 MG TAB PO SCH (08:12)
[2021-11-15] MEDS: guaiFENesin 600 MG TABCR PO SCH ×2 (08:12→20:52)
[2021-11-15] MEDS: dexAMETHasone 4 MG TAB PO SCH (08:13)
[2021-11-15] MEDS: APIXABAN 5 MG TABLET PO SCH ×2 (08:13→20:52)
[2021-11-15] MEDS: PHENAZOPYRIDINE HCL 100 MG TAB PO SCH ×2 (08:15→20:52)
[2021-11-15] MEDS: NICOTINE 14 MG/24 HR PATCH TD SCH (08:15)
[2021-11-15] MEDS: LIDOCAINE 5% 1 PATCH TD SCH ×2 (08:16)
[2021-11-15] MEDS: AMOXICILLIN/CLAVULANATE 875 MG TAB PO SCH ×2 (08:42→16:21)
[2021-11-15] MEDS ORDERED: POTASSIUM CHLORIDE CRTAB 20 MEQ TABCR PO STA (09:34)
[2021-11-15] MEDS ORDERED: FUROSEMIDE INJ 20 MG/2 ML VIAL IV ONE (09:34)
[2021-11-15] MEDS: HYDROmorphone HCL 2 MG TAB PO PRN ×2 (10:26→12:36)
[2021-11-15] MEDS: MoRPHine SULFATE 10 MG/0.5 ML UDP PO PRN ×2 (13:47→16:21)
--- NOTE | 2021-11-15 18:32 | Hospitalist Progress Note ---
Date of Service November 15, 2021 Assessment & Plan (1) Pathological fracture, hip, unspecified, initial encounter for fracture: Plan: - Right sided; Either osteoporotic, or very well could be pathologic from bone mets from her metastatic cancer. -- Reviewed PET scan from 2019 - no noted metastasis to bones at that time but could have progressed - Vit D low 12.9 - 50,000 ergocalciferol started - S/P Intramedullary nailing of right hip femur fracture on 11/09 - Douglas Hollis MD. - S/P 1 unit PRBC on 11/09 --> Hgb 10.7 currently with IV Venfor given - WBAT RLL - Continue pain control - Tylenol, Roxanol; Continue Dexamethasone 6 mg daily -- Taking a lot of IV coverage -- Seems to do well with Roxanol without sedation. Will continue JOSE E Roxanol at night at Q2H for breakthrough pain. So far had 2 doses which have been > 2 hrs apart so far -- She reports chronic pain has been an issue and discussed Methadone vs DIRECTOR OF VOCATIONAL GUIDANCE pump. Pt and daughter are going to think about these options and likely transition to them in-house. As she is hoping to get a bit more mobile would favor Methadone over DIRECTOR OF VOCATIONAL GUID[employer] pump - Is interested in working on some gentle movements - maybe up to chair - will discuss with PT/OT to see if they can see her and work with her a bit to help mo bility (2) COPD with exacerbation: Plan: - Initially treated with IV steroids - continue Decadron for respiratory and seems to help control pain which if there is bony mets this could assist - Has had atypical coverage; convert Levaquin to Augmentin more for urinary coverage - Mucinex BID; Cough suppressant PRN - Continue Albuterol PRN; Atrovent QID - Had worsening respiratory distress on 11/12 requiring supplemental O2 placement which has improved however mostly complaining of cough but this is very weak; sounds like this mucous in upper airways she can't adequately cough out -- JOSE E Xanax to help with anxiety (increased to 1 mg) - daughter states she has been on the 0.5 mg dose for a very long time; Give additional dose of Lasix x 1 - Titrate O2 as needed to maintain sat/for comfort (3) Stage 4 lung cancer: Plan: - On hospice at home with her daughter since 2020 - Goal is to return home with hospice post-discharge (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 Ostomy bag will collect this a bit better.----> Wound RN unable to place ostomy. Dressing changed today. - Daughter reports changing the dressings 3-4x's each day. - Even with dressings in place stool leaks all over the abdominal wall (5) Tachycardia: Plan: - Currently resolved - Suspect 2nd to pain, advanced lung disease, anxiety etc. - PE is theoretically possible but she has been on full-strength anticoagulation at home with Eliquis -- She has h/o pericardial effusion - likely malignant - this could be present and certainly worse than previous. -- Would not pursue work-up such as CTA chest, echo, etc. --> as above, goal for comfort/fixing hip given increased discomfort but hopeful for d/c home hospice again --> Patient not wanting to pursue further work-up (6) Hematuria: Plan: - Reported by pt's daughter. -- Would not pursue work-up given hospice status. - Patient will have montaño during this stay can continue on D/C given hospice -- Is on Pyridium so may be misleading on urine color -- Abx for UTI - will cover with Augmentin until 11/17 - Cx with klebsiella oxytoca (7) Abdominal abscess: Plan: - Patient with prior h/o numerous intra-abdominal abscesses. -- CTs from spring 2020 showed such. - Was receiving antibiotics for them during that time, then ultimately d/c due to transitioning to hospice. - Has had intermittent fevers for weeks/months per daughter - low-grade - could be fevers from these abscesses, or her cancer, or other. - Simply treat any abdominal pain with pain meds. - Would not pursue work-up. (8) History of DVT (deep vein thrombosis): Plan: - Continue Eliquis (9) Cigarette smoker: Plan: - Nicoderm patch 14mg/day. - Encouraged cessation, but in light of above patient states she is continuing this at d/c as they provides her comfort -- WILL HAVE TO BE MINDFUL WITH SUPPLEMENTAL O2 AND SMOKING (10) Chronic kidney disease, stage 3a: Plan: - STABLE - Renally dose meds when able/avoid nephrotoxins (11) Severe protein-calorie malnutrition: Plan: - NOTED - 2/2 stage 4 cancer (12) Hypothyroidism: Plan: - TSH WNL - Cont Synthroid (13) Depression: Plan: - Cont home meds including sleep aids. (14) DVT prophylaxis: Plan: - Eliquis Plan: - Moving to comfort measures - plan to transition back to hospice - patient expressing some anxiety in that regards and will work on improving cough and comfort prior to transition home - Updated daughter at bedside - await decision for Methadone vs [employer] Admission and Anticipated Discharge Date Admission Date: November 08, 2021 Subjective No acute events overnight. Reports cough/breathing is a bit better today. But pain still a challenge to control. Seems the Roxanol is helping some over po Dilaudid. Discussed starting Methadone vs [employer]OR OF VOCATIONAL GUID[employer] pump with patient and daughter. Patient would also like to try some simple exercises or sitting up more which we can talk with PT about. Review of Systems Review of Systems: All systems reviewed & are unremarkable except as noted in Subjective Physical Exam Physical Exam: PHYSICAL EXAM General Appearance: frail elderly woman in NAD who is A&O x 3 HEENT: Head is normocephalic/atraumatic; Hearing grossly intact Neck: Supple; Trachea midline Heart: RRR with no M/G/R Lungs: CTA in all lung das bilaterally; Respirations unlabored; Neg accessory muscle use Abdomen: Soft, non-tender, non-distended; Positive BS x 4 quadrants; + ostomy Extremities: Neg cyanosis or edema Neurological: Speech clear; Gross motor/sensory function intact; Neg focal neurologic deficits Psychiatric: Appropriate mood/affect; intermittent eye contact Skin: Normal Color; Warm/Dry Results & Data Results & Data ([facility]) Vital Signs (Past 12 Hours) Vital Signs Temp Pulse Pulse Resp BP Pulse Ox Pulse Ox 11/15/21 15:35 94 H 20 95 11/15/21 11:13 93 H 20 95 11/15/21 10:52 92 11/15/21 07:48 119 H 24 92 11/15/21 07:17 36.5 C 99 H 20 121/74 96 PG Care Time/CCT Total # of Minutes Spent Total Time Spent with Patient: Total time spent is greater than 50% in coordination of care (as documented) at patient's floor/unit and/or counseling patient: Coding Level of Care Code 00821 Subseq Hosp Care Lvl 3 Diagnoses Pathological fracture, hip, unspecified, initial encounter for fracture M84.459A COPD with exacerbation J44.1 Stage 4 lung cancer C34.90 Abdominal wall fistula K63.2 Tachycardia R00.0 Hematuria R31.9 Abdominal abscess History of DVT (deep vein thrombosis) Z86.718 Cigarette smoker F17.210 Chronic kidney disease, stage 3a N18.3 Severe protein-calorie malnutrition E43 Hypothyroidism E03.9 Hypothyroidism type: acquired Depression F32.9 Active/Remission status: remission status unspecified Depression Type: major depressive disorder Major depression recurrence: unspecified whether recurrent DVT prophylaxis Z29.9 (1) Depression Active/Remission status: remission status unspecified Depression Type: major depressive disorder Major depression recurrence: unspecified whether recurrent Qualified Code(s): F32.9 - Major depressive disorder, single episode, unspecified (2) Hypothyroidism Hypothyroidism type: acquired Qualified Code(s): E03.9 - Hypothyroidism, unspecified
[2021-11-15] MEDS: DOCUSATE SODIUM/SENNA 50/8.6MG TAB PO SCH (19:49)
[2021-11-15] MEDS: MoRPHine SULFATE 10 MG/0.5 ML UDP SL SCH (20:49)
[2021-11-15] MEDS: traZODone HCL 50 MG TAB PO SCH (20:50)
[2021-11-15] MEDS: MoRPHine SULFATE 5 MG/0.25 ML UDP SL SCH (20:50)
[2021-11-15] MEDS: ZOLPIDEM TARTRATE 5 MG TAB PO SCH (20:51)
--- NOTE | 2021-11-15 21:20 | Progress Notes ---
DATE OF SERVICE: 11/15/2021. SUBJECTIVE: A 81-year-old white female with multiple medical comorbidities, on hospice care. Now 6 days out from IM nailing of a right intertrochanteric fracture. She has done reasonably well. Some pain, but getting around okay. Seems to get better daily. No other complaints. OBJECTIVE: VITAL SIGNS: Temperature is 36.5. Vital signs stable. PHYSICAL EXAMINATION: GENERAL: A thin, cachectic elderly female patient lying in bed, looks pretty comfortable. EXTREMITIES: Examination of the right hip reveals the dressing to be clean, dry and intact. She can do a straight leg raise. Leg lengths are equal. Minor pain with hip motion. LABORATORY DATA: No new labs. ASSESSMENT: A 81-year-old white female on hospice care for her multiple medical issues including met astatic lung cancer. She is now 6 days out from intramedullary nailing of a right intertrochanteric fracture, doing reasonably well. PLAN: From the orthopedic standpoint, she can weight bear as tolerated. DVT prophylaxis includes th igh-high TEDs, SCDs and back on her Eliquis. Routine wound care. I am going to sign off for now. A ct orthopedic questions can be directed to me at [phone]. I need to see her back 2 to 3 weeks o ut from surgery date. Job ID: [id number]
[2021-11-16] MEDS: ALPRAZolam 0.5 MG TABLET PO SCH ×6 (03:35→22:34)
[2021-11-16] MEDS: LEVOTHYROXINE SODIUM 100 MCG TABLET PO SCH (03:37)
[2021-11-16] MEDS: MoRPHine SULFATE 10 MG/0.5 ML UDP PO PRN ×4 (03:37→12:47)
[2021-11-16] MEDS: POLYETHYLENE (MIRALAX) 17 GM PACK PO SCH ×3 (03:37→18:05)
[2021-11-16] MEDS: ALBUTEROL HFA 8 GM INHALER INH PRN ×2 (07:34→11:09)
[2021-11-16] MEDS: IPRATROPIUM BROMIDE HFA INHALER INH SCH ×4 (07:35→20:03)
[2021-11-16] MEDS: PANTOprazole 40 MG TAB PO SCH (09:15)
[2021-11-16] MEDS: NICOTINE 14 MG/24 HR PATCH TD SCH (09:15)
[2021-11-16] MEDS: LIDOCAINE 5% 1 PATCH TD SCH ×2 (09:16→09:18)
[2021-11-16] MEDS: APIXABAN 5 MG TABLET PO SCH (09:17)
[2021-11-16] MEDS: guaiFENesin 600 MG TABCR PO SCH (09:17)
[2021-11-16] MEDS: ACETAMINOPHEN 500 MG TAB PO SCH ×2 (09:17→14:17)
[2021-11-16] MEDS: dexAMETHasone 4 MG TAB PO SCH (09:18)
[2021-11-16] MEDS: PHENAZOPYRIDINE HCL 100 MG TAB PO SCH (09:19)
[2021-11-16] MEDS: AMOXICILLIN/CLAVULANATE 875 MG TAB PO SCH ×2 (09:19→16:30)
--- NOTE | 2021-11-16 12:49 | Hospitalist Progress Note ---
Date of Service November 16, 2021 Assessment & Plan (1) Pathological fracture, hip, unspecified, initial encounter for fracture: Plan: - Right sided; Either osteoporotic, or very well could be pathologic from bone mets from her metastatic cancer. -- Reviewed PET scan from 2019 - no noted metastasis to bones at that time but could have progressed - Vit D low 12.9 - 50,000 ergocalciferol started - S/P Intramedullary nailing of right hip femur fracture on 11/09 - Douglas Hollis MD. - S/P 1 unit PRBC on 11/09 --> Hgb 10.7 currently with IV Venfor given - WBAT RLL - Continue pain control - Tylenol, Roxanol; Continue Dexamethasone 6 mg daily -- Taking a lot of IV coverage when ordered -- Seems to do well with Roxanol without sedation. Will continue JOSE E Roxanol at night at Q2H for breakthrough pain. So far had 2 doses which have been > 2 hrs apart so far -- She reports chronic pain has been an issue and discussed Methadone vs CORPORATE DEVELOPMENT ANALYST pump. Pt and daughter are going to think about these options and likely transition to them in-house. As she is hoping to get a bit more mobile would favor Methadone over CORPORATE DEVELOPMENT ANALYST pump - Is interested in working on some gentle movements - maybe up to chair - will discuss with PT/OT to see if they can see her and work with her a bit to help mobility (2) COPD with exacerbation: Plan: - Initially treated with IV steroids - continue Decadron for respiratory and seems to help control pain which if there is bony mets this could assist - Has had atypical coverage; convert Levaquin to Augmentin more for urinary coverage - Mucinex BID; Cough suppressant PRN - Continue Albuterol PRN; Atrovent QID - Had worsening respiratory distress on 11/12 requiring supplemental O2 placement which has improved however mostly complaining of cough but this is very weak; sounds like this mucous in upper airways she can't adequately cough out -- JOSE E Xanax to help with anxiety (increased to 1 mg) - daughter states she has been on the 0.5 mg dose for a very long time; Give additional dose of Lasix x 1 - Titrate O2 as needed to maintain sat/for comfort - Will add Claritin to see if this helps dry up the mucous a bit more (3) Stage 4 lung cancer: Plan: - On hospice at home with her daughter since 2020 - Goal is to return home with hospice post-discharge (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 Ostomy bag will collect this a bit better.----> Wound RN unable to place ostomy. Dressing changed today. - Daughter reports changing the dressings 3-4x's each day. - Even with dressings in place stool leaks all over the abdominal wall (5) Tachycardia: Plan: - Currently resolved - Suspect 2nd to pain, advanced lung disease, anxiety etc. - PE is theoretically possible but she has been on full-strength anticoagulation at home with Eliquis -- She has h/o pericardial effusion - likely malignant - this could be present and certainly worse than previous. -- Would not pursue work-up such as CTA chest, echo, etc. --> as above, goal for comfort/fixing hip given increased discomfort but hopeful for d/c home hospice again --> Patient not wanting to pursue further work-up (6) Hematuria: Plan: - Reported by pt's daughter. -- Would not pursue work-up given hospice status. - Patient will have montaño during this stay can continue on D/C given hospice -- Is on Pyridium so may be misleading on urine color -- Abx for UTI - will cover with Augmentin until 11/17 - Cx with klebsiella oxytoca (7) Abdominal abscess: Plan: - Patient with prior h/o numerous intra-abdominal abscesses. -- CTs from spring 2020 showed such. - Was receiving antibiotics for them during that time, then ultimately d/c due to transitioning to hospice. - Has had intermittent fevers for weeks/months per daughter - low-grade - could be fevers from these abscesses, or her cancer, or other. - Simply treat any abdominal pain with pain meds. - Would not pursue work-up. (8) History of DVT (deep vein thrombosis): Plan: - Continue Eliquis (9) Cigarette smoker: Plan: - Nicoderm patch 14mg/day. - Encouraged cessation, but in light of above patient states she is continuing this at d/c as they provides her comfort -- WILL HAVE TO BE MINDFUL WITH SUPPLEMENTAL O2 AND SMOKING (10) Chronic kidney disease, stage 3a: Plan: - STABLE - Renally dose meds when able/avoid nephrotoxins (11) Severe protein-calorie malnutrition: Plan: - NOTED - 2/2 stage 4 cancer (12) Hypothyroidism: Plan: - TSH WNL - Cont Synthroid (13) Depression: Plan: - Cont home meds including sleep aids. (14) DVT prophylaxis: Plan: - Eliquis Plan: - Moving to comfort measures - plan to transition back to hospice - patient expr essing some anxiety in that regards and will work on improving cough and comfort prior to transition home - Updated daughter at bedside - await decision for Methadone vs CORPORATE DEVELOPMENT ANALYST Admission and Anticipated Discharge Date Admission Date: November 08, 2021 Subjective No acute events overnight. States her pain is improving and is not needing the Roxanol as frequently as she needed the IV Dilaudid. Reports the cough is getting better but still waking her up at night because it gets thick. She reports she worked with therapy a bit today and it was nice to move however did have hip pain. She is more interactive and making better eye contact today. Reports less anxiety. Review of Systems Review of Systems: All systems reviewed & are unremarkable except as noted in Subjective Physical Exam Physical Exam: PHYSICAL EXAM General Appearance: frail elderly woman in [facility] who is A&O x 3 HEENT: Head is normocephalic/atraumatic; Hearing grossly intact Neck: Supple; Trachea midline Heart: RRR with no M/G/R Lungs: CTA in all lung das bilaterally; Respirations unlabored; Neg accessory muscle use Abdomen: Soft, non-tender, non-distended; Positive BS x 4 quadrants; + ostomy Extremities: Neg cyanosis or edema Neurological: Speech clear; Gross motor/sensory function intact; Neg focal neurologic deficits Psychiatric: Appropriate mood/affect; improved eye contact Skin: Normal Color; Warm/Dry Results & Data Results & Data ([facility]) Vital Signs (Past 12 Hours) Vital Signs Temp Pulse Pulse Resp BP Pulse Ox 11/16/21 11:11 101 H 18 93 11/16/21 10:27 36.7 C 92 H 118/70 99 11/16/21 07:35 107 H 18 92 11/16/21 07:28 36.3 C L 102 H 16 102/71 94 PG Care Time/CCT Total # of Minutes Spent Total Time Spent with Patient: Total time spent is greater than 50% in coordination of care (as documented) at patient's floor/unit and/or counseling patient: Coding Level of Care Code 06658 Subseq Hosp Care Lvl 3 Diagnoses Pathological fracture, hip, unspecified, initial encounter for fracture M84.459A COPD with exacerbation J44.1 Stage 4 lung cancer C34.90 Abdominal wall fistula K63.2 Tachycardia R00.0 Hematuria R31.9 Abdominal abscess History of DVT (deep vein thrombosis) Z86.718 Cigarette smoker F17.210 Chronic kidney disease, stage 3a N18.3 Severe protein-calorie malnutrition E43 Hypothyroidism E03.9 Hypothyroidism type: acquired Depression F32.9 Depression Type: major depressive disorder Major depression recurrence: unspecified whether recurrent Active/Remission status: remission status unspecified DVT prophylaxis Z29.9 (1) Hypothyroidism Hypothyroidism type: acquired Qualified Code(s): E03.9 - Hypothyroidism, unspecified (2) Depression Depression Type: major depressive disorder Major depression recurrence: unspecified whether recurrent Active/Remission status: remission status unspecified Qualified Code(s): F32.9 - Major depressive disorder, single episode, unspecified
[2021-11-16] MEDS: LORATADINE 10 MG TAB PO SCH (14:17)
[2021-11-17] MEDS: ACETAMINOPHEN 500 MG TAB PO SCH ×4 (03:24→20:21)
[2021-11-17] MEDS: DOCUSATE SODIUM/SENNA 50/8.6MG TAB PO SCH ×2 (03:24→20:21)
[2021-11-17] MEDS: guaiFENesin 600 MG TABCR PO SCH ×3 (03:24→20:21)
[2021-11-17] MEDS: MoRPHine SULFATE 5 MG/0.25 ML UDP SL SCH ×2 (03:24→20:30)
[2021-11-17] MEDS: MoRPHine SULFATE 10 MG/0.5 ML UDP SL SCH ×2 (03:24→20:30)
[2021-11-17] MEDS: APIXABAN 5 MG TABLET PO SCH ×3 (03:24→20:22)
[2021-11-17] MEDS: ZOLPIDEM TARTRATE 5 MG TAB PO SCH ×2 (03:25→20:30)
[2021-11-17] MEDS: POLYETHYLENE (MIRALAX) 17 GM PACK PO SCH ×5 (03:25→18:09)
[2021-11-17] MEDS: PHENAZOPYRIDINE HCL 100 MG TAB PO SCH ×3 (03:25→20:22)
[2021-11-17] MEDS: traZODone HCL 50 MG TAB PO SCH ×2 (03:25→20:22)
[2021-11-17] MEDS: ALPRAZolam 0.5 MG TABLET PO SCH ×6 (03:25→20:31)
[2021-11-17] MEDS: MoRPHine SULFATE 10 MG/0.5 ML UDP PO PRN ×6 (03:28→18:08)
[2021-11-17] MEDS: LEVOTHYROXINE SODIUM 100 MCG TABLET PO SCH (03:29)
[2021-11-17 06:40] LABS: Hematocrit (blood only) 34.1 % (37-47); Hemoglobin 10.5 g/dL (12.0-16.0); Mean Corpuscular Hgb Conc 30.8 g/dL (32-36); Mean Corpuscular Volume 87.7 fL (80-100); Mean Platelet Volume 8.7 fL (7.4-10.4); Platelet Count 299 K/uL (130-400); RDW Coefficient of Variation 17.4 % (11.5-14.5); RDW Standard Deviation 55.6 fL (36.4-46.3); Red Blood Count 3.89 M/uL (4.2-5.4); White Blood Count 16.57 K/uL (4.8-10.8)
[2021-11-17] MEDS: ALBUTEROL HFA 8 GM INHALER INH PRN ×4 (07:19→19:29)
[2021-11-17] MEDS: IPRATROPIUM BROMIDE HFA INHALER INH SCH ×4 (07:19→19:27)
[2021-11-17 08:04] LABS: BUN Creatinine Ratio 34.5 (10-20); Calcium 8.5 mg/dl (8.5-10.1); Creatinine Clr Calc Pharmacy 70.1 ml/min; Est GFR (African American) 103.4 ml/min; Est GFR (Non-African American) 89.2 ml/min; Potassium 3.9 mmol/L (3.5-5.1)
[2021-11-17] MEDS: PANTOprazole 40 MG TAB PO SCH (08:08)
[2021-11-17] MEDS: NICOTINE 14 MG/24 HR PATCH TD SCH (08:08)
[2021-11-17] MEDS: AMOXICILLIN/CLAVULANATE 875 MG TAB PO SCH (08:08)
[2021-11-17] MEDS: dexAMETHasone 4 MG TAB PO SCH (08:09)
[2021-11-17] MEDS: LORATADINE 10 MG TAB PO SCH (08:09)
[2021-11-17] MEDS: LIDOCAINE 5% 1 PATCH TD SCH ×2 (08:11)
--- NOTE | 2021-11-17 10:34 | Hospitalist Progress Note ---
Date of Service November 17, 2021 Assessment & Plan (1) Pathological fracture, hip, unspecified, initial encounter for fracture: Plan: - Right sided; Either osteoporotic, or very well could be pathologic from bone mets from her metastatic cancer. -- Reviewed PET scan from 2019 - no noted metastasis to bones at that time but could have progressed - Vit D low 12.9 - 50,000 ergocalciferol started - S/P Intramedullary nailing of right hip femur fracture on 11/09 - oDuglas Hollis MD -- will need F/U 2-3 weeks from surgery - S/P 1 unit PRBC on 11/09 --> Hgb 10.7 currently with IV Venofer given - WBAT RLL - Continue pain control - Tylenol, Roxanol; Continue Dexamethasone 6 mg daily -- Was taking a lot of IV coverage when ordered -- Seems to do well with Roxanol without sedation. Will continue JOSE E Roxanol at night at Q2H for breakthrough pain -- She reports chronic pain has been an issue and discussed Methadone vs CAR CHANGER pump. Pt and daughter are going to think about these options and likely transition to them in-house. As she is hoping to get a bit more mobile would favor Methadone over CAR CHANGER pump - Is interested in working on some gentle movements - maybe up to chair - PT/OT working with her - Does have an acute leukocytosis however physically improving and feeling better - suspect this is in the setting of Decadron and will monitor (2) COPD with exacerbation: Plan: - Initially treated with IV steroids - continue Decadron for respiratory and seems to help control pain which if there is bony mets this could assist - Has had atypical coverage; convert Levaquin to Augmentin more for urinary coverage -- treatment complete - Mucinex BID; Cough suppressant PRN - Continue Albuterol PRN; Atrovent QID - Had worsening respiratory distress on 11/12 requiring supplemental O2 placement which has improved however mostly complaining of cough but this is very weak; sounds like this mucous in upper airways she can't adequately cough out -- JOSE E Xanax to help with anxiety (increased to 1 mg) - daughter states she has been on the 0.5 mg dose for a very long time; Give additional dose of Lasix x 1 - Titrate O2 as needed to maintain sat/for comfort - Added Claritin to see if this helps dry up the mucous a bit more (3) Stage 4 lung cancer: Plan: - On hospice at home with her daughter since 2020 - Goal is to return home with hospice post-discharge (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 Ostomy bag will collect this a bit better.----> Wound RN unable to place ostomy. Dressing changed today. - Daughter reports changing the dressings 3-4x's each day. - Even with dressings in place stool leaks all over the abdominal wall (5) Tachycardia: Plan: - Currently resolved - Suspect 2nd to pain, advanced lung disease, anxiety etc. - PE is theoretically possible but she has been on full-strength anticoagulation at home with Eliquis -- She has h/o pericardial effusion - likely malignant - this could be present and certainly worse than previous. -- Would not pursue work-up such as CTA chest, echo, etc. --> as above, goal for comfort/fixing hip given increased discomfort but hopeful for d/c home hospice again --> Patient not wanting to pursue further work-up (6) Hematuria: Plan: - Reported by pt's daughter. -- Would not pursue work-up given hospice status. - Patient will have montaño during this stay can continue on D/C given hospice -- Is on Pyridium so may be misleading on urine color -- Abx for UTI - covered with Augmentin until 11/17 - Cx with klebsiella oxytoca (7) Abdominal abscess: Plan: - Patient with prior h/o numerous intra-abdominal abscesses. -- CTs from spring 2020 showed such. - Was receiving antibiotics for them during that time, then ultimately d/c due to transitioning to hospice. - Has had intermittent fevers for weeks/months per daughter - low-grade - could be fevers from these abscesses, or her cancer, or other. - Simply treat any abdominal pain with pain meds. - Would not pursue work-up. (8) History of DVT (deep vein thrombosis): Plan: - Continue Eliquis (9) Cigarette smoker: Plan: - Nicoderm patch 14mg/day. - Encouraged cessation, but in light of above patient states she is continuing this at d/c as they provides her comfort -- WILL HAVE TO BE MINDFUL WITH SUPPLEMENTAL O2 AND SMOKING (10) Chronic kidney disease, stage 3a: Plan: - STABLE - Renally dose meds when able/avoid nephrotoxins (11) Severe protein-calorie malnutrition: Plan: - NOTED - 2/2 stage 4 cancer (12) Hypothyroidism: Plan: - TSH WNL - Cont Synthroid (13) Depression: Plan: - Cont home meds including sleep aids. (14) DVT prophylaxis: Plan: - Eliquis Plan: - Moving to comfort measures - plan to transition back to hospice - patient expressing some anxiety in that regards and will work on improving cough and comfort prior to transition home - Updated daughter - await decision for Methadone vs CAR CHANGER Admission and Anticipated Discharge Date Admission Date: November 08, 2021 Subjective No acute events overnight. Patient continues to report improving pain control and improving control of anxiety. Still has not decided how she would want to move forward with pain control. She is actually able to participate more with therapy and was up out of bed. She continues with a cough but seems to have more strength with the cough but still not producing sputum but reports it feels less suffocating. She is tolerating a diet. Verbalizes no new complaints. Review of Systems Review of Systems: All systems reviewed & are unremarkable except as noted in Subjective Physical Exam Physical Exam: PHYSICAL EXAM General Appearance: frail elderly woman in NAD who is A&O x 3 HEENT: Head is normocephalic/atraumatic; Hearing grossly intact Neck: Supple; Trachea midline Heart: RRR with no M/G/R Lungs: CTA in all lung das bilaterally; Respirations unlabored; Neg accessory muscle use Abdomen: Soft, non-tender, non-distended; Positive BS x 4 quadrants; + ostomy Extremities: Neg cyanosis or edema Neurological: Speech clear; Gross motor/sensory function intact; Neg focal neurologic deficits Psychiatric: Appropriate mood/affect; improved eye contact Skin: Normal Color; Warm/Dry Results & Data Results & Data ([facility]) Vital Signs (Past 12 Hours) Vital Signs Temp Pulse Resp BP Pulse Ox 11/17/21 07:58 36.7 C 97 H 16 107/68 94 11/17/21 07:22 91 H 18 93 PG Care Time/CCT Total # of Minutes Spent Total Time Spent with Patient: Total time spent is greater than 50% in coordination of care (as documented) at patient's floor/unit and/or counseling patient: Coding Level of Care Code 46956 Subseq Hosp Care Lvl 2 Diagnoses Pathological fracture, hip, unspecified, initial encounter for fracture M84.459A COPD with exacerbation J44.1 Stage 4 lung cancer C34.90 Abdominal wall fistula K63.2 Tachycardia R00.0 Hematuria R31.9 Abdominal abscess History of DVT (deep vein thrombosis) Z86.718 Cigarette smoker F17.210 Chronic kidney disease, stage 3a N18.3 Severe protein-calorie malnutrition E43 Hypothyroidism E03.9 Hypothyroidism type: acquired Depression F32.9 Depression Type: major depressive disorder Major depression recurrence: unspecified whether recurrent Active/Remission status: remission status unspecified DVT prophylaxis Z29.9 (1) Hypothyroidism Hypothyroidism type: acquired Qualified Code(s): E03.9 - Hypothyroidism, unspecified (2) Depression Depression Type: major depressive disorder Major depression recurrence: unspecified whether recurrent Active/Remission status: remission status unspecified Qualified Code(s): F32.9 - Major depressive disorder, single episode, unspecified
[2021-11-17] MEDS: ERGOCALCIFEROL 50,000 UNITS 1250 MCG CAP PO SCH (16:07)
[2021-11-18] MEDS: POLYETHYLENE (MIRALAX) 17 GM PACK PO SCH (00:43)
[2021-11-18] MEDS: ALPRAZolam 0.5 MG TABLET PO SCH ×6 (00:43→19:08)
[2021-11-18] MEDS: MoRPHine SULFATE 10 MG/0.5 ML UDP PO PRN ×6 (00:43→14:24)
[2021-11-18] MEDS: LEVOTHYROXINE SODIUM 100 MCG TABLET PO SCH (05:45)
[2021-11-18] MEDS: ONDANSETRON INJ 2 MG/ML 2 ML VIAL IV PRN ×2 (07:23→14:59)
[2021-11-18] MEDS: HEPARIN 100 UNIT/ML 5ML FLUSH FLUSH PRN ×2 (07:23→14:59)
[2021-11-18] MEDS: IPRATROPIUM BROMIDE HFA INHALER INH SCH ×4 (07:34→19:35)
[2021-11-18] MEDS: APIXABAN 5 MG TABLET PO SCH (08:12)
[2021-11-18] MEDS: PHENAZOPYRIDINE HCL 100 MG TAB PO SCH ×2 (08:12→21:30)
[2021-11-18] MEDS: ACETAMINOPHEN 500 MG TAB PO SCH ×3 (08:13→21:30)
[2021-11-18] MEDS: LORATADINE 10 MG TAB PO SCH (08:13)
[2021-11-18] MEDS: guaiFENesin 600 MG TABCR PO SCH ×2 (08:13→21:30)
[2021-11-18] MEDS: dexAMETHasone 4 MG TAB PO SCH (08:14)
[2021-11-18] MEDS: LIDOCAINE 5% 1 PATCH TD SCH ×2 (08:15)
[2021-11-18] MEDS: NICOTINE 14 MG/24 HR PATCH TD SCH (08:15)
[2021-11-18] MEDS: PANTOprazole 40 MG TAB PO SCH (08:16)
[2021-11-18] MEDS ORDERED: POLYETHYLENE (MIRALAX) 17 GM PACK PO PRN (11:20)
[2021-11-18] MEDS ORDERED: PROCHLORPERAZINE 5 MG in SYRINGE 4 ML IV ONE (11:30)
--- NOTE | 2021-11-18 15:01 | XRay Report ---
KUB CLINICAL HISTORY: Generalized abdominal pain. Nausea and vomiting. FINDINGS: 2 AP, portable, supine abdominal radiographs are compared to study dated 03/07/2021 and corre lated with abdominal CT dated 03/04/2021. An ostomy projects over the left lower quadrant. There is mar ked gaseous distention of the stomach. The bowel loops are otherwise normal as visualized. No evidenc e of intraperitoneal free air is seen on these supine images. There is advanced atherosclerotic calci fication of the abdominal aorta and iliac arteries. Phleboliths are noted in the pelvis. The lung bas es are clear as imaged. The tip of a central venous infusion port catheter is noted. The skeletal str uctures are osteopenic and appear intact. There is lumbosacral spondylosis. Postoperative change is s een in both hips. IMPRESSION: 1. There is marked gaseous distention of the stomach. 2. The bowel loops are normal as visualized. 3. Additional findings as above. Electronically signed by: Jeffry Sotomayor M.D. 11/18/2021 2:59 PM
[2021-11-18] MEDS ORDERED: PROMETHAZINE HCL 12.5 MG in SODIUM CHLORIDE 0.9% 50 ML IV STA (16:01)
[2021-11-18] MEDS ORDERED: PROMETHAZINE HCL 12.5 MG in SODIUM CHLORIDE 0.9% 50 ML IV PRN (16:02)
[2021-11-18] MEDS ORDERED: STAT IV Infusion **Titration per Protocol STA (16:11)
[2021-11-18] MEDS ORDERED: MoRPHine SULFATE 10 MG/ML CARP/VIAL IV STA (16:12)
[2021-11-18] MEDS: MoRPHine SULF/NSS 250 MG/250 ML BTL IV SCH (17:17)
--- NOTE | 2021-11-18 19:18 | Hospitalist Progress Note ---
Date of Service November 18, 2021 Assessment & Plan (1) Nausea: Plan: - Started having nausea and vomiting (brown emesis) and worsening abdominal pain. Agreed to KUB which shows distended stomach but no small bowel dilation to suggest SBO. Is getting output from ostomy - Uncertain of etiology - maybe from medications vs her H/O abdominal abscess? vs anxiety - Did not want to pursue further imaging and states she just wants to be comfortable. Both patient and daughter agree they would rather be more sedated if that means no more discomfort - Had a long conversation and ultimately started a morphine gtt and Phenergan for nausea. Did discuss NGT for comfort however patient was adamant to not do this. On recheck after drip and Phenergan she is reporting improvement in symptoms - Titrate gtt for comfort - Can continue to do gentle PT/OT if patient willing - if ultimately declines can stop this. Otherwise taking more of a comfort measures approach (2) Pathological fracture, hip, unspecified, initial encounter for fracture: Plan: - Right sided; Either osteoporotic, or very well could be pathologic from bone mets from her metastatic cancer. -- Reviewed PET scan from 2019 - no noted metastasis to bones at that time but could have progressed - Vit D low 12.9 - 50,000 ergocalciferol started - S/P Intramedullary nailing of right hip femur fracture on 11/09 - Douglas Hollis MD -- will need F/U 2-3 weeks from surgery - S/P 1 unit PRBC on 11/09 --> Hgb 10.7 currently with IV Venofer given - WBAT RLL - Continue pain control - Tylenol, Roxanol; Continue Dexamethasone 6 mg daily -- Morphine gtt as above - Is interested in working on some gentle movements - maybe up to chair - PT/OT working with her - Does have an acute leukocytosis - suspect this is in the setting of Decadron but given the vomiting maybe more? She does not want to pursue further workup (3) COPD with exacerbation: Plan: - Initially treated with IV steroids - continue Decadron for respiratory and seems to help control pain which if there is bony mets this could assist - Has had atypical coverage; convert Levaquin to Augmentin more for urinary coverage -- treatment complete - Mucinex BID; Cough suppressant PRN - Continue Albuterol PRN; Atrovent QID - Had worsening respiratory distress on 11/12 requiring supplemental O2 placement which has improved however mostly complaining of cough but this is very weak; sounds like this mucous in upper airways she can't adequately cough out -- JOSE E Xanax to help with anxiety (increased to 1 mg) - daughter states she has been on the 0.5 mg dose for a very long time; Give additional dose of Lasix x 1 - Titrate O2 as needed to maintain sat/for comfort - Added Claritin to see if this helps dry up the mucous a bit more (4) Stage 4 lung cancer: Plan: - On hospice at home with her daughter since 2020 - Goal is to return home with hospice post-discharge (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 Ostomy bag will collect this a bit better.----> Wound RN unable to place ostomy. Dressing changed today. - Daughter reports changing the dressings 3-4x's each day. - Even with dressings in place stool leaks all over the abdominal wall (6) Tachycardia: Plan: - Currently resolved - Suspect 2nd to pain, advanced lung disease, anxiety etc. - PE is theoretically possible but she has been on full-strength anticoagulation at home with Eliquis -- She has h/o pericardial effusion - likely malignant - this could be present and certainly worse than previous. -- Would not pursue work-up such as CTA chest, echo, etc. --> as above, goal for comfort/fixing hip given increased discomfort but hopeful for d/c home hospice again --> Patient not wanting to pursue further work-up (7) Hematuria: Plan: - Reported by pt's daughter. -- Would not pursue work-up given hospice status. - Patient will have montaño during this stay can continue on D/C given hospice -- Is on Pyridium so may be misleading on urine color -- Abx for UTI - covered with Augmentin until 11/17 - Cx with klebsiella oxytoca (8) Abdominal abscess: Plan: - Patient with prior h/o numerous intra-abdominal abscesses. -- CTs from spring 2020 showed such. - Was receiving antibiotics for them during that time, then ultimately d/c due to transitioning to hospice. - Has had intermittent fevers for weeks/months per daughter - low-grade - could be fevers from these abscesses, or her cancer, or other. - Simply treat any abdominal pain with pain meds. - Would not pursue work-up. (9) History of DVT (deep vein thrombosis): Plan: - Hold Eliquis for now given emesis/brown colored (10) Cigarette smoker: Plan: - Nicoderm patch 14mg/day. - Encouraged cessation, but in light of above patient states she is continuing this at d/c as they provides her comfort -- WILL HAVE TO BE MINDFUL WITH SUPPLEMENTAL O2 AND SMOKING (11) Chronic kidney disease, stage 3a: Plan: - STABLE - Renally dose meds when able/avoid nephrotoxins (12) Severe protein-calorie malnutrition: Plan: - NOTED - 2/2 stage 4 cancer (13) Hypothyroidism: Plan: - TSH WNL - Cont Synthroid (14) Depression: Plan: - Cont home meds including sleep aids. (15) DVT prophylaxis: Plan: - Eliquis Plan: - Moving to comfort measures - plan to transition back to hospice - however uncertain given the vomiting and now with morphine gtt. Possible transition to GIP? Admission and Anticipated Discharge Date Admission Date: November 08, 2021 Subjective Patient with ongoing emesis today with worsening abdominal pain. Emesis is brown. Had a long conversation with daughter and patient. Patient agreed to KUB but did not want further work-up. Ultimately wanted to start a morphine gtt to get better pain control. Phenergen and morphine gtt seems to be helping a lot. Patient states she just wants to sleep and wants to be comfortable. Both the patient and daughter agree they would prefer to be more sleepy if that means her pain is doing better. Review of Systems Review of Systems: All systems reviewed & are unremarkable except as noted in Subjective Physical Exam Physical Exam: PHYSICAL EXAM General Appearance: frail elderly woman in NAD who is A&O x 3 HEENT: Head is normocephalic/atraumatic; Hearing grossly intact Neck: Supple; Trachea midline Heart: RRR with no M/G/R Lungs: CTA in all lung das bilaterally; Respirations unlabored; Neg accessory muscle use Abdomen: Mildly distended in epigastric region and a bit firm however did soften after bout of emesis; Positive BS x 4 quadrants; + ostomy Extremities: Neg cyanosis or edema Neurological: Speech clear; Gross motor/sensory function intact; Neg focal neurologic deficits Psychiatric: Appropriate mood/affect; improved eye contact Skin: Normal Color; Warm/Dry Results & Data Results & Data ([facility]) Vital Signs (Past 12 Hours) Vital Signs Temp Pulse Pulse Resp BP Pulse Ox 11/18/21 15:48 36.5 C 95 H 20 119/79 94 11/18/21 14:53 94 H 23 95 11/18/21 10:36 107 H 20 94 11/18/21 07:36 102 H 24 95 11/18/21 07:24 36.7 C 105 H 18 122/79 95 PG Care Time/CCT Total # of Minutes Spent Total Time Spent with Patient: Total time spent is greater than 50% in coordination of care (as documented) at patient's floor/unit and/or counseling patient: Coding Level of Care Code 60930 Subseq Hosp Care Lvl 3 Diagnoses Pathological fracture, hip, unspecified, initial encounter for fracture M84.4 59A COPD with exacerbation J44.1 Stage 4 lung cancer C34.90 Abdominal wall fistula K63.2 Tachycardia R00.0 Hematuria R31.9 Abdominal abscess History of DVT (deep vein thrombosis) Z86.718 Cigarette smoker F17.210 Chronic kidney disease, stage 3a N18.3 Severe protein-calorie malnutrition E43 Hypothyroidism E03.9 Hypothyroidism type: acquired Depression F32.9 Depression Type: major depressive disorder Major depression recurrence: unspecified whether recurrent Active/Remission status: remission status unspecified DVT prophylaxis Z29.9 Nausea R11.0 (1) Hypothyroidism Hypothyroidism type: acquired Qualified Code(s): E03.9 - Hypothyroidism, unspecified (2) Depression Depression Type: major depressive disorder Major depression recurrence: unspecified whether recurrent Active/Remission status: remission status unspecified Qualified Code(s): F32.9 - Major depressive disorder, single episode, unspecified
[2021-11-18] MEDS ORDERED: PROMETHAZINE HCL 12.5 MG in SODIUM CHLORIDE 0.9% 50 ML IV ONE (21:00)
[2021-11-18] MEDS: DOCUSATE SODIUM/SENNA 50/8.6MG TAB PO SCH (21:30)
[2021-11-18] MEDS: ZOLPIDEM TARTRATE 5 MG TAB PO SCH (21:30)
[2021-11-18] MEDS: traZODone HCL 50 MG TAB PO SCH (21:30)
[2021-11-19] MEDS: ALPRAZolam 0.5 MG TABLET PO SCH ×3 (00:51→08:16)
[2021-11-19] MEDS: LEVOTHYROXINE SODIUM 100 MCG TABLET PO SCH (06:22)
[2021-11-19] MEDS: IPRATROPIUM BROMIDE HFA INHALER INH SCH ×2 (07:41→11:04)
[2021-11-19] MEDS: ACETAMINOPHEN 500 MG TAB PO SCH (08:16)
[2021-11-19] MEDS: dexAMETHasone 4 MG TAB PO SCH (08:16)
[2021-11-19] MEDS: PANTOprazole 40 MG TAB PO SCH (08:17)
[2021-11-19] MEDS: guaiFENesin 600 MG TABCR PO SCH ×2 (08:17→21:55)
[2021-11-19] MEDS: NICOTINE 14 MG/24 HR PATCH TD SCH (08:17)
[2021-11-19] MEDS: PHENAZOPYRIDINE HCL 100 MG TAB PO SCH ×2 (08:17→21:55)
[2021-11-19] MEDS: LORATADINE 10 MG TAB PO SCH (08:17)
[2021-11-19] MEDS: LIDOCAINE 5% 1 PATCH TD SCH ×2 (08:17)
--- NOTE | 2021-11-19 08:22 | Progress Notes ---
DATE OF SERVICE: 11/19/2021. SUBJECTIVE: A 81-year-old white female, now 10 days out from right IM nailing of an intertrochanteri c fracture. Her hip is doing fine. She has got multiple other medical comorbidities and is on hospi ce care. OBJECTIVE: VITAL SIGNS: Temperature is 36.6. Vital signs are stable. Intermittently tachycardic. PHYSICAL EXAMINATION: GENERAL: Shows a cachectic elderly female. She is lying in bed. EXTREMITIES: Examination of the right hip reveals the leg to be well aligned. Dressing is clean, dr y and intact. She can do a straight leg raise. She is neurologically intact. ASSESSMENT: A 81-year-old white female with multiple medical comorbidities, on hospice care, 10 days out from intramedullary nailing of an intertrochanteric fracture. Her hip is doing fine. PLAN: At this point, we will continue supportive care. Routine wound care. She can weight bear as tolerated. I need to see her back in 2 to 3 weeks out from surgery date. Any orthopedic questions c an be directed to me at [phone]. Job ID: [id number]
[2021-11-19] MEDS: PROMETHAZINE HCL 12.5 MG in SODIUM CHLORIDE 0.9% 50 ML IV SCH ×4 (10:40→22:17)
[2021-11-19] MEDS ORDERED: MoRPHine SULFATE 10 MG/ML CARP/VIAL IV STA (10:48)
[2021-11-19] MEDS: LORazepam 1 MG/2 ML VIAL IV SCH ×4 (11:06→23:43)
--- NOTE | 2021-11-19 11:39 | Hospitalist Progress Note ---
Date of Service November 19, 2021 Assessment & Plan (1) Nausea: Plan: - Started having nausea and vomiting (brown emesis) and worsening abdominal pain on 11/18. Agreed to KUB which shows distended stomach but no small bowel dilation to suggest SBO. Was getting output from ostomy but will monitor if this continues - Uncertain of etiology - maybe from medications vs her H/O abdominal abscess? vs anxiety vs obstructing? - She did not want to pursue further imaging and states she just wants to be comfortable. Both patient and daughter agree they would rather be more sedated if that means no more discomfort - Had a long conversation and ultimately started a morphine gtt and will titrate up for comfort; JOSE E IV Phenergan and JOSE E IV Ativan; Morphine IV PRN for breakthrough distress/pain. Did discuss NGT for comfort however patient was adamant to not do this - Can continue to do gentle PT/OT if patient willing - if ultimately declines can stop this. Otherwise taking more of a comfort measures approach (2) Pathological fracture, hip, unspecified, initial encounter for fracture: Plan: - Right sided; Either osteoporotic, or very well could be pathologic from bone mets from her metastatic cancer. -- Reviewed PET scan from 2019 - no noted metastasis to bones at that time but could have progressed - Vit D low 12.9 - 50,000 ergocalciferol started but will hold as unable to take orals - S/P Intramedullary nailing of right hip femur fracture on 11/09 - Douglas Hollis MD -- will need F/U 2-3 weeks from surgery (pending ultimate outcome with current symptoms/presentation) - S/P 1 unit PRBC on 11/09 - WBAT RLL - Continue pain control -- Morphine as above - Is interested in working on some gentle movements - however now with more nausea/vomiting and unlikely to do much with therapy at this point - Does have an acute leukocytosis - suspect this is in the setting of Decadron but given the vomiting maybe more? She does not want to pursue further workup (3) COPD with exacerbation: Plan: - Initially treated with IV steroids - continue Decadron for respiratory and seems to help control pain which if there is bony mets this could assist - Has had atypical coverage; convert Levaquin to Augmentin more for urinary coverage -- treatment complete - Mucinex BID; Cough suppressant PRN - Continue Albuterol PRN; Atrovent QID - Had worsening respiratory distress on 11/12 requiring supplemental O2 placement which has improved however mostly complaining of cough but this is very weak; sounds like this mucous in upper airways she can't adequately cough out -- JOSE E Xanax to help with anxiety (increased to 1 mg) - daughter states she has been on the 0.5 mg dose for a very long time; Give additional dose of Lasix x 1 - Titrate O2 as needed to maintain sat/for comfort - Added Claritin to see if this helps dry up the mucous a bit more (4) Stage 4 lung cancer: Plan: - On hospice at home with her daughter since 2020 - Goal is to return home with hospice post-discharge however is not stable for transport at this time (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 Ostomy bag will collect this a bit better.----> Wound RN unable to place ostomy. Dressing changed today. - Daughter reports changing the dressings 3-4x's each day. - Even with dressings in place stool leaks all over the abdominal wall (6) Tachycardia: Plan: - Currently resolved - Suspect 2nd to pain, advanced lung disease, anxiety etc. - PE is theoretically possible but she has been on full-strength anticoagulation at home with Eliquis -- holding currently though -- She has h/o pericardial effusion - likely malignant - this could be present and certainly worse than previous. -- Would not pursue work-up such as CTA chest, echo, etc. --> as above, goal for comfort/fixing hip given increased discomfort but hopeful for d/c home hospice again --> Patient not wanting to pursue further work-up (7) Hematuria: Plan: - Reported by pt's daughter. -- Would not pursue work-up given hospice status. - Patient will have montaño during this stay can continue on D/C given hospice -- Is on Pyridium so may be misleading on urine color -- Abx for UTI - covered with Augmentin until 11/17 - Cx with klebsiella oxytoca (8) Abdominal abscess: Plan: - Patient with prior h/o numerous intra-abdominal abscesses. -- CTs from spring 2020 showed such. - Was receiving antibiotics for them during that time, then ultimately d/c due to transitioning to hospice. - Has had intermittent fevers for weeks/months per daughter - low-grade - could be fevers from these abscesses, or her cancer, or other. - Simply treat any abdominal pain with pain meds. - Would not pursue work-up. (9) History of DVT (deep vein thrombosis): Plan: - Hold Eliquis for now given emesis/brown colored (10) Cigarette smoker: Plan: - Nicoderm patch 14mg/day. - Encouraged cessation, but in light of above patient states she is continuing this at d/c as they provides her comfort -- WILL HAVE TO BE MINDFUL WITH SUPPLEMENTAL O2 AND SMOKING (11) Chronic kidney disease, stage 3a: Plan: - STABLE - Renally dose meds when able/avoid nephrotoxins (12) Severe protein-calorie malnutrition: Plan: - NOTED - 2/2 stage 4 cancer (13) Hypothyroidism: Plan: - TSH WNL - Cont Synthroid (14) Depression: Plan: - Cont home meds including sleep aids. (15) DVT prophylaxis: Plan: - Eliquis (on hold) Plan: - Focus on comfort - plan to transition back to hospice - however uncertain given the vomiting and now with morphine gtt. Possible transition to [facility] as currently not stable for transport? Admission and Anticipated Discharge Date Admission Date: November 08, 2021 Subjective Continues to have emesis and abdominal pain. Morphine gtt is increasing with breakthrough pain medication added. JOSE E Phenergan and JOSE E Ativan IV as unable to take orals. Review of Systems Review of Systems: All systems reviewed & are unremarkable except as noted in Subjective Physical Exam Physical Exam: PHYSICAL EXAM General Appearance: frail elderly woman in distress due to vomiting who is A&O x 3 HEENT: Head is normocephalic/atraumatic; Hearing grossly intact Neck: Supple; Trachea midline Heart: RRR with no M/G/R Lungs: CTA in all lung das bilaterally; Respirations unlabored; Neg accessory muscle use Abdomen: Mildly distended in epigastric region and a bit firm however did soften after bout of emesis; Positive BS x 4 quadrants; + ostomy Extremities: Neg cyanosis or edema Neurological: Speech clear; Gross motor/sensory function intact; Neg focal neurologic deficits Psychiatric: Appropriate mood/affect; improved eye contact Skin: Normal Color; Warm/Dry Results & Data Results & Data ([facility]) Vital Signs (Past 12 Hours) Vital Signs Temp Pulse Resp BP Pulse Ox 11/19/21 08:04 36.6 C 123 H 16 120/79 93 11/19/21 07:43 120 H 20 93 PG Care Time/CCT Total # of Minutes Spent Total Time Spent with Patient: Total time spent is greater than 50% in coordination of care (as documented) at patient's floor/unit and/or counseling patient: Coding Level of Care Code 93669 Subseq Hosp Care Lvl 3 Diagnoses Nausea R11.0 Pathological fracture, hip, unspecified, initial encounter for fracture M84.459A COPD with exacerbation J44.1 Stage 4 lung cancer C34.90 Abdominal wall fistula K63.2 Tachycardia R00.0 Hematuria R31.9 Abdominal abscess History of DVT (deep vein thrombosis) Z86.718 Cigarette smoker F17.210 Chronic kidney disease, stage 3a N18.3 Severe protein-calorie malnutrition E43 Hypothyroidism E03.9 Hypothyroidism type: acquired Depression F32.9 Depression Type: major depressive disorder Major depression recurrence: unspecified whether recurrent Active/Remission status: remission status unspecified DVT prophylaxis Z29.9 (1) Hypothyroidism Hypothyroidism type: acquired Qualified Code(s): E03.9 - Hypothyroidism, unspecified (2) Depression Depression Type: major depressive disorder Major depression recurrence: unspecified whether recurrent Active/Remission status: remission status unspecified Qualified Code(s): F32.9 - Major depressive disorder, single episode, unspecified
[2021-11-19] MEDS ORDERED: IPRATROPIUM BROMIDE HFA INHALER INH PRN (14:05)
[2021-11-19] MEDS: traZODone HCL 50 MG TAB PO SCH (21:55)
[2021-11-19] MEDS: ZOLPIDEM TARTRATE 5 MG TAB PO SCH (21:55)
[2021-11-19] MEDS: DOCUSATE SODIUM/SENNA 50/8.6MG TAB PO SCH (21:55)
[2021-11-20] MEDS: PROMETHAZINE HCL 12.5 MG in SODIUM CHLORIDE 0.9% 50 ML IV SCH ×6 (03:26→20:05)
[2021-11-20] MEDS: LORazepam 1 MG/2 ML VIAL IV SCH ×2 (03:26→07:10)
[2021-11-20] MEDS: LEVOTHYROXINE SODIUM 100 MCG TABLET PO SCH (06:31)
[2021-11-20] MEDS: LIDOCAINE 5% 1 PATCH TD SCH ×2 (07:42→07:43)
[2021-11-20] MEDS: guaiFENesin 600 MG TABCR PO SCH (07:42)
[2021-11-20] MEDS: dexAMETHasone 4 MG TAB PO SCH (07:42)
[2021-11-20] MEDS: NICOTINE 14 MG/24 HR PATCH TD SCH (07:43)
[2021-11-20] MEDS: LORATADINE 10 MG TAB PO SCH (07:43)
[2021-11-20] MEDS: PHENAZOPYRIDINE HCL 100 MG TAB PO SCH (07:43)
[2021-11-20] MEDS: PANTOprazole 40 MG TAB PO SCH (07:43)
[2021-11-20] MEDS ORDERED: LORazepam 1 MG/2 ML VIAL IV PRN (08:59)
--- NOTE | 2021-11-20 09:07 | Hospitalist Progress Note ---
Date of Service November 20, 2021 Assessment & Plan (1) Comfort measures only status: Plan: - Patient began having nausea/vomiting on 11/18. KUB showed a distended stomach but no SBO; patient did not want further workup for this and request to be made comfortable and would like to get rest - She continued to have emesis yesterday of a brown liquid consistency and continued with worsening abdominal pain but responded well to JOSE E Phenergan and ongoing Morphine gtt with bolus Morphine - Continue Morphine gtt and titrate Q15M for comfort; Phenergan Q6H JOSE E but can hold if no signs of vomiting; PRN IV Ativan; PRN IV Morphine boluses - Scopolamine patch; can add Atropine gtts if needed - Discussed with daughter on 11/19 and she understands that patient may pass in the coming days. As we are not sure of the true etiology of the vomiting but suspect she is actively dying. Currently she is not stable for transition out of the hospital. Patient and daughter discussed this and both are in agreement they want her to be comfortable even if that means she is more sedated - Discussed NGT if uncontrolled vomiting however patient was adamant to not utilize this - Suspect patient may have only days and discussed this with her daughter. Patient is [employer] at this time - Daughter is handling this situation as good as to be expected. She just wants her mom to be at peace. (2) Nausea: Plan: - See above (3) Pathological fracture, hip, unspecified, initial encounter for fracture: Plan: - Right sided; Either osteoporotic, or very well could be pathologic from bone mets from her metastatic cancer. -- Reviewed PET scan from 2019 - no noted metastasis to bones at that time but could have progressed - Vit D low 12.9 - not taking much orals - S/P Intramedullary nailing of right hip femur fracture on 11/09 - Douglas Hollis MD -- will need F/U 2-3 weeks from surgery however suspect patient may pass in days - S/P 1 unit PRBC on 11/09 - WBAT RLL - Continue pain control -- Morphine as above - Does have an acute leukocytosis - suspect this is in the setting of Decadron but given the vomiting maybe more? 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 - Daughter reports changing the dressings 3-4x's each day. - Even with dressings in place stool leaks all over the abdominal wall (7) Tachycardia: Plan: - Suspect 2nd to pain, advanced lung disease, anxiet, actively dying etc. - PE is theoretically possible but she has been on full-strength anticoagulation at home with Eliquis -- holding currently though -- She has h/o pericardial effusion - likely malignant - this could be present and certainly worse than previous. -- Would not pursue work-up such as CTA chest, echo, etc. --> Patient not wanting to pursue further work-up (8) Hematuria: Plan: - Reported by pt's daughter. -- Would not pursue work-up given hospice status. - Patient will have montaño during this stay can continue on D/C given hospice -- Is on Pyridium so may be misleading on urine color -- Abx for UTI - covered with Augmentin until 11/17 - Cx with klebsiella oxytoca (9) Abdominal abscess: Plan: - Patient with prior h/o numerous intra-abdominal abscesses. -- CTs from spring 2020 showed such. - Was receiving antibiotics for them during that time, then ultimately d/c due to transitioned to hospice. - Has had intermittent fevers for weeks/months per daughter - low-grade - could be fevers from these abscesses, or her cancer, or other. - Simply treat any abdominal pain with pain meds. - Would not pursue work-up. (10) History of DVT (deep vein thrombosis): Plan: - Hold Eliquis for now given emesis/brown colored;not taking orals (11) Cigarette smoker: Plan: - Nicoderm patch 14mg/day. (12) Chronic kidney disease, stage 3a: Plan: - STABLE; no further lab draws (13) Severe protein-calorie malnutrition: Plan: - NOTED - 2/2 stage 4 cancer (14) Hypothyroidism: Plan: - TSH WNL - Cont Synthroid if able to take orals (15) Depression: Plan: - Cont home meds including sleep aids if able to take (16) DVT prophylaxis: Plan: - Eliquis (on hold); Comfort Plan: - [employer]; Updated daughter on 11/19 and will call today if not at bedside. Patient is not stable for transport from hospital at this time Admission and Anticipated Discharge Date Admission Date: November 08, 2021 Subjective No acute events overnight. Has been more obtunded today. Will open her eyes to verbal stimuli and intermittent nod to yes/no questions. She has not had further vomiting as of this time. She appears comfortable. Review of Systems Review of Systems: Unobtainable due to cognitive status Physical Exam Physical Exam: PHYSICAL EXAM General Appearance: frail elderly woman in NAD to is largely obtunded but will open eyes to verbal cues and intermittently nod head to yes/no questions HEENT: Head is normocephalic/atraumatic; Hearing grossly intact Neck: Supple; Trachea midline Heart: Regulary rhythm; tachycardic Lungs: CTA in all lung das bilaterally; Respirations unlabored; Neg accessory muscle use Abdomen: Mildly distended in epigastric region but softer compared to previous exams; Positive BS x 4 quadrants; + ostomy Extremities: Neg cyanosis or edema Neurological: Speech clear; Gross motor/sensory function intact; Neg focal neurologic deficits Psychiatric: Predominantly obtunded Skin: Normal Color; Warm/Dry Results & Data Results & Data ([facility]) Vital Signs (Past 12 Hours) Vital Signs Temp Pulse Resp BP Pulse Ox 11/19/21 23:47 36.5 C 115 H 14 104/70 93 PG Care Time/CCT Total # of Minutes Spent Total Time Spent with Patient: Total time spent is greater than 50% in coordination of care (as documented) at patient's floor/unit and/or counseling patient: Coding Level of Care Code 07356 Subseq Hosp Care Lvl 3 Diagnoses Nausea R11.0 Pathological fracture, hip, unspecified, initial encounter for fracture M84.459A COPD with exacerbation J44.1 Stage 4 lung cancer C34.90 Abdominal wall fistula K63.2 Tachycardia R00.0 Hematuria R31.9 Abdominal abscess History of DVT (deep vein thrombosis) Z86.718 Cigarette smoker F17.210 Chronic kidney disease, stage 3a N18.3 Severe protein-calorie malnutrition E43 Hypothyroidism E03.9 Hypothyroidism type: acquired Depression F32.9 Depression Type: major depressive disorder Major depression recurrence: unspecified whether recurrent Active/Remission status: remission status unspecified DVT prophylaxis Z29.9 Comfort measures only status Z51.5 (1) Hypothyroidism Hypothyroidism type: acquired Qualified Code(s): E03.9 - Hypothyroidism, unspecified (2) Depression Depression Type: major depressive disorder Major depression recurrence: unspecified whether recurrent Active/Remission status: remission status unspecified Qualified Code(s): F32.9 - Major depressive disorder, single episode, unspecified
[2021-11-20] MEDS: SCOPOLAMINE 1 MG TDSY TD SCH (10:23)
[2021-11-20] MEDS: CHECK SCOPOLAMINE PATCH PLACEMENT SCH (16:53)
[2021-11-20] MEDS: MoRPHine SULFATE 4 MG/ML 1 ML CARP\\VIAL IV PRN (20:05)
[2021-11-21] MEDS: PROMETHAZINE HCL 12.5 MG in SODIUM CHLORIDE 0.9% 50 ML IV SCH ×6 (00:48→21:55)
[2021-11-21] MEDS: CHECK SCOPOLAMINE PATCH PLACEMENT SCH ×3 (00:49→15:38)
--- NOTE | 2021-11-21 07:53 | Hospitalist Progress Note ---
Date of Service November 21, 2021 Assessment & Plan (1) Comfort measures only status: Plan: - Patient began having nausea/vomiting on 11/18. KUB showed a distended stomach but no SBO; patient did not want further workup for this and request to be made comfortable and would like to get rest - She continued to have emesis 11/19 of a brown liquid consistency and continued with worsening abdominal pain but responded well to JUN Phenergan and ongoing Morphine gtt with bolus Morphine Continue Morphine gtt and titrate Q15M for comfort; Phenergan Q6H JUN but can hold if no signs of vomiting; PRN IV Ativan; PRN IV Morphine boluses No further vomiting with scheduled phernergan and scopalamine patch (noted allergy to hydrocodone with n/v) Patient REFUSING NGT if uncontrolled vomiting to occur. Atropine gtt if needed but will give dose of glycopyrrolate x1 for secretions Ativan prn -- had been taking xanax very regularly and suspect anxiety a large component of end of life/symptoms --> Changed to scheduled Q4H dosing, additional to be available if needed Updated daughter and sister at bedside this afternoon 11/21 --> Will give decadron 6mg IVP for oswald pain, extra 1mg ativan x 1 now as making scheduled, glycopryolate x 1 for secretions Having tingling/repeat symptoms of hypomag -- 1gm iv x 1 for symptoms but discussed this is likely a bandaid. 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 (2) Nausea: Plan: See above continued nausea but no further emesis over past 24 hrs and continued jun phenergan (3) Pathological fracture, hip, unspecified, initial encounter for fracture: Plan: - Right sided; Either osteoporotic, or very well could be pathologic from bone mets from her metastatic cancer. -- Reviewed PET scan from 2019 - no noted metastasis to bones at that time but could have progressed - Vit D low 12.9 - not taking much orals - S/P Intramedullary nailing of right hip femur fracture on 11/09 - Douglas Hollis MD -- will need F/U 2-3 weeks from surgery however suspect patient may pass in days - S/P 1 unit PRBC on 11/09 - WBAT RLL - Continue pain control -- Morphine as above - Does have an acute leukocytosis - suspect this is in the setting of Decadron but given the vomiting maybe more? 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 - Daughter reports changing the dressings 3-4x's each day. - Even with dressings in place stool leaks all over the abdominal wall (7) Tachycardia: Plan: - Suspect 2nd to pain, advanced lung disease, anxiet, actively dying etc. - PE is theoretically possible but she has been on full-strength anticoagulation at home with Eliquis -- holding currently though -- She has h/o pericardial effusion - likely malignant - this could be present and certainly worse than previous. -- Would not pursue work-up such as CTA chest, echo, etc. --> Patient not wanting to pursue further work-up (8) Hematuria: Plan: - Reported by pt's daughter. -- Would not pursue work-up given hospice status. - Patient will have montaño during this stay can continue on D/C given hospice -- Is on Pyridium so may be misleading on urine color -- Abx for UTI - covered with Augmentin until 11/17 - Cx with klebsiella oxytoca (9) Abdominal abscess: Plan: - Patient with prior h/o numerous intra-abdominal abscesses. -- CTs from spring 2020 showed such. - Was receiving antibiotics for them during that time, then ultimately d/c due to transitioned to hospice. - Has had intermittent fevers for weeks/months per daughter - low-grade - could be fevers from these abscesses, or her cancer, or other. - Simply treat any abdominal pain with pain meds. - Would not pursue work-up. (10) History of DVT (deep vein thrombosis): Plan: - Hold Eliquis for now given emesis/brown colored;not taking orals --> Discussed with patient/family at bedside 11/21 regarding risk of holding/hypercoag state/afib and risk for DVT/PE --> They would like ot continue to hold off on taking this medication and understand increased risk (11) Cigarette smoker: Plan: - Nicoderm patch 14mg/day. 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 No vomiting at this time. Discussed could increased phenergan if needed -- she does not feel this is necessary at this time. Discussed decadron for oswald pain as she has not gotten this -- she would like to avoid such discussed anxiety -- she would like something now. noted during discussion Ms Burgos not sure if she can make it home/and would not like to pursue options to get her there at this point and would rather remain inpatient with visitation provided as she believes would be too stressful for herself and family at home despite daughter willing to take home. Given permission to call daughter milvia for update. Again visited with patient/family this afternoon' Got dose of ativan, discussed making this scheduled --all in agreement. patient now with tingling in hands/feet. discussed eliquis on hold but oculd be from low mag as similar symptoms. can give dose 1gm now but agreed this is only stop gap. now agreeable to decadron IVP and will schedule 6mg dose x 1 now and monitor response. Also with increased secretions and anxiety and will have RN give dose of glycopyrrolate and additional 1mg ativan for anxiety. Would like to try some crackers -- ok for food as comfort. Patient wishing to remain inpatient and no goals to return home at this time. Focusing on symptom control. Review of Systems Review of Systems: All systems reviewed & are unremarkable except as noted in HPI & below Physical Exam Physical Exam: general - chronically ill/frail appearing female sitting up in bed, no acute distress, anxious appearing eyes- pupils equal, reactive ent- mm dry neck- trachea midline, without deviation, + JVD resp- diminished in bases with coarse breath sounds, no further diffuse wheezing, not tachypneic, currently on 4L NC chest- port to L chest, covered, c/d/i no erythema or tenderness to palpation cardio- RRR, no m/r/g gi- +BS, soft, nontender, ostomy with liquid brown stool output, dressing to RLQ c/d/i (recently changed by RN with brown drainage to dressing/saturated) msk- RLE with dressing c/d/i, tender to palpation along dressing appropriately to more distal aspect of dressing, no evidence of hematoma, some mild edema, NVI, pulses diminished but palpable, calves non-tender to palpation. lidocaine patch to R shoulder gu- montaño with purulant drainage in tubing/yellow cloudy urine in montaño bag psych- alert, oriented x 3, forgetfulness at times, easily re-oriented, cooperative,+anxious appearing Results & Data Results & Data ([facility]) Vital Signs (Past 12 Hours) Vital Signs Temp Pulse Resp BP Pulse Ox Pulse Ox 11/21/21 05:16 95 11/20/21 20:09 36.6 C 86 14 93/56 L 95 11/20/21 20:05 95 95 PG Care Time/CCT Total # of Minutes Spent Total Time Spent with Patient: Total time spent is greater than 50% in coordination of care (as documented) at patient's floor/unit and/or counseling patient: Coding Level of Care Code 84664 Subseq Hosp Care Lvl 3 Diagnoses Comfort measures only status Z51.5 Nausea R11.0 Pathological fracture, hip, unspecified, initial encounter for fracture M84.459A COPD with exacerbation J44.1 Stage 4 lung cancer C34.90 Abdominal wall fistula K63.2 Tachycardia R00.0 Hematuria R31.9 Abdominal abscess History of DVT (deep vein thrombosis) Z86.718 Cigarette smoker F17.210 Chronic kidney disease, stage 3a N18.3 Severe protein-calorie malnutrition E43 Hypothyroidism E03.9 Hypothyroidism type: acquired Depression F32.9 Active/Remission status: remission status unspecified Depression Type: major depressive disorder Major depression recurrence: unspecified whether recurrent DVT prophylaxis Z29.9 (1) Depression Active/Remission status: remission status unspecified Depression Type: major depressive disorder Major depression recurrence: unspecified whether recurrent Qualified Code(s): F32.9 - Major depressive disorder, single episode, unspecified (2) Hypothyroidism Hypothyroidism type: acquired Qualified Code(s): E03.9 - Hypothyroidism, unspecified
[2021-11-21] MEDS: LIDOCAINE 5% 1 PATCH TD SCH ×2 (08:10→08:22)
[2021-11-21] MEDS: NICOTINE 14 MG/24 HR PATCH TD SCH (08:22)
[2021-11-21] MEDS: MoRPHine SULFATE 4 MG/ML 1 ML CARP\\VIAL IV PRN (10:36)
[2021-11-21] MEDS ORDERED: LORazepam 1 MG IV PRN (10:43)
[2021-11-21] MEDS: ALBUTEROL HFA 8 GM INHALER INH PRN (11:42)
[2021-11-21] MEDS ORDERED: LORazepam 2 MG/1 ML VIAL IV STA (14:41)
[2021-11-21] MEDS ORDERED: GLYCOPYRROLATE 0.2 MG/ML VIAL IV PRN (14:42)
[2021-11-21] MEDS ORDERED: MAGNESIUM SULFATE / D5W 1 GM/100 ML BAG IV ONE (15:00)
[2021-11-21] MEDS ORDERED: dexAMETHasone 6 MG in SYRINGE 0 ML IV ONE (15:00)
[2021-11-21] MEDS: LORazepam 2 MG/1 ML VIAL IV SCH ×3 (15:37→22:58)
[2021-11-22] MEDS: CHECK SCOPOLAMINE PATCH PLACEMENT SCH ×4 (02:06→23:59)
[2021-11-22] MEDS: LORazepam 2 MG/1 ML VIAL IV SCH ×6 (02:06→20:49)
[2021-11-22] MEDS: PROMETHAZINE HCL 12.5 MG in SODIUM CHLORIDE 0.9% 50 ML IV SCH ×6 (02:09→20:53)
--- NOTE | 2021-11-22 07:30 | Hospitalist Progress Note ---
Date of Service November 22, 2021 Assessment & Plan (1) Comfort measures only status: Plan: - Patient began having nausea/vomiting on 11/18. KUB showed a distended stomach but no SBO; patient did not want further workup for this and request to be made comfortable and would like to get rest - She continued to have emesis 11/19 of a brown liquid consistency and continued with worsening abdominal pain but responded well to JUN Phenergan and ongoing Morphine gtt with bolus Morphine Continue Morphine gtt and titrate Q15M for comfort; Phenergan Q6H JUN but can hold if no signs of vomiting; PRN IV Ativan; PRN IV Morphine boluses No further vomiting with scheduled phernergan and scopalamine patch (noted allergy to hydrocodone with n/v) Patient REFUSING NGT if uncontrolled vomiting to occur. Atropine gtt if needed but will give dose of glycopyrrolate x1 for secretions Ativan prn -- had been taking xanax very regularly and suspect anxiety a large component of end of life/symptoms --> Changed to scheduled Q4H dosing, additional to be available if needed Updated daughter and sister at bedside afternoon 11/21 --> Given decadron 6mg IVP for oswald pain 11/21, extra 1mg ativan x 1 now as making scheduled, glycopyrrolate x 1 for secretions --> Had tingling/repeat symptoms of hypomagnesemia -- 1gm iv x 1 for symptoms but discussed this is likely a bandaid. No evidence for DVT at this time but is no longer continued on the eliquis and is a HIGH risk for hypercoag/clotting 11/22 --> improvement in comfort with decadron and scheduled ativan and will continue with such drinking sips/not much appetite. possible thrush and will order PO nystatin Expect patient may past in next week given above and progressive decline however patient is MUCH more comfortable and less anxious today. 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 Updated daughter and sister at bedside this afternoon (2) Nausea: Plan: See above continued nausea but no further emesis over past 24 hrs and continued jun phenergan NO FURTHER NAUSEA REPORTED, NO FURTHER VOMITING (3) Pathological fracture, hip, unspecified, initial encounter for fracture: Plan: - Right sided; Either osteoporotic, or very well could be pathologic from bone mets from her metastatic cancer. -- Reviewed PET scan from 2019 - no noted metastasis to bones at that time but could have progressed - Vit D low 12.9 - not taking much orals - S/P Intramedullary nailing of right hip femur fracture on 11/09 - Douglas Hollis MD -- will need F/U 2-3 weeks from surgery however suspect patient may pass in days - S/P 1 unit PRBC on 11/09 - WBAT RLL - Continue pain control -- Morphine as above - Does have an acute leukocytosis - suspect this is in the setting of Decadron but given the vomiting maybe more? 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 - Daughter reports changing the dressings 3-4x's each day. - Even with dressings in place stool leaks all over the abdominal wall (7) Tachycardia: Plan: - Suspect 2nd to pain, advanced lung disease, anxiet, actively dying etc. - PE is theoretically possible but she has been on full-strength anticoagulation at home with Eliquis -- holding currently though -- She has h/o pericardial effusion - likely malignant - this could be present and certainly worse than previous. -- Would not pursue work-up such as CTA chest, echo, etc. --> Patient not wanting to pursue further work-up Rates better controlled with adequate pain/anxiety control as above (8) Hematuria: Plan: - Reported by pt's daughter. -- Would not pursue work-up given hospice status. - Patient will have montaño during this stay can continue on D/C given hospice -- Is on Pyridium so may be misleading on urine color -- Abx for UTI - covered with Augmentin until 11/17 - Cx with klebsiella oxytoca no further hematuria however does have purulant drainage noted (9) Abdominal abscess: Plan: - Patient with prior h/o numerous intra-abdominal abscesses. -- CTs from spring 2020 showed such. - Was receiving antibiotics for them during that time, then ultimately d/c due to transitioned to hospice. - Has had intermittent fevers for weeks/months per daughter - low-grade - could be fevers from these abscesses, or her cancer, or other. - Simply treat any abdominal pain with pain meds. - Would not pursue work-up. (10) History of DVT (deep vein thrombosis): Plan: - Hold Eliquis for now given emesis/brown colored;not taking orals --> Discussed with patient/family at bedside 11/21 regarding risk of holding/hypercoag state/afib and risk for DVT/PE --> They would like ot continue to hold off on taking this medication and understand increased risk (11) Cigarette smoker: Plan: - Nicoderm patch 14mg/day. 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 Stated crackers didn't go well no increased work of breathing or reports of shortness of breath denies abdominal pain as well -- ostomy with liquid output and dressing to RLQ c/d/i. No fever, chills, chest pain reported. Discussed updating daughter -- she would like Aydee stoner.' Will give another dose of decadron for pain control as seems to be most effective. Planned continued inpatient stay, updated daughter. Will visit again this afternoon to ensure symptoms remain controlled. Review of Systems Review of Systems: All systems reviewed & are unremarkable except as noted in HPI & below Physical Exam Physical Exam: general - chronically ill/frail appearing female sitting up in bed, no acute distress eyes- pupils equal, reactive ent- mm dry, possible thrush neck- trachea midline, without deviation, + JVD resp- diminished in bases with coarse breath sounds, no further diffuse wheezing, not tachypneic, currently on 2L NC chest- port to L chest, covered, c/d/i no erythema or tenderness to palpation cardio- RRR, no m/r/g gi- +BS, soft, nontender, ostomy with liquid brown stool output, dressing to RLQ c/d/i msk- RLE with dressing c/d/i, tender to palpation along dressing appropriately to more distal aspect of dressing, no evidence of hematoma, some mild edema, NVI, pulses diminished but palpable, calves non-tender to palpation. lidocaine patch to R shoulder gu- montaño with purulent drainage in tubing/yellow cloudy urine in montaño bag psych- alert, oriented to person/place, not time, pleasant confusion/easily re- oriented Results & Data Results & Data ([facility]) Vital Signs (Past 12 Hours) Vital Signs Pulse Ox 11/21/ 22:50 96 PG Care Time/CCT Total # of Minutes Spent Total Time Spent with Patient: Total time spent is greater than 50% in coordination of care (as documented) at patient's floor/unit and/or counseling patient: Coding Level of Care Code 11887 Subseq Hosp Care Lvl 3 Diagnoses Comfort measures only status Z51.5 Nausea R11.0 Pathological fracture, hip, unspecified, initial encounter for fracture M84.459A COPD with exacerbation J44.1 Stage 4 lung cancer C34.90 Abdominal wall fistula K63.2 Tachycardia R00.0 Hematuria R31.9 Abdominal abscess History of DVT (deep vein thrombosis) Z86.718 Cigarette smoker F17.210 Chronic kidney disease, stage 3a N18.3 Severe protein-calorie malnutrition E43 Hypothyroidism E03.9 Hypothyroidism type: acquired Depression F32.9 Active/Remission status: remission status unspecified Depression Type: major depressive disorder Major depression recurrence: unspecified whether recurrent DVT prophylaxis Z29.9 (1) Depression Active/Remission status: remission status unspecified Depression Type: major depressive disorder Major depression recurrence: unspecified whether recurrent Qualified Code(s): F32.9 - Major depressive disorder, single episode, unspecified (2) Hypothyroidism Hypothyroidism type: acquired Qualified Code(s): E03.9 - Hypothyroidism, unspecified
[2021-11-22] MEDS: LIDOCAINE 5% 1 PATCH TD SCH ×2 (08:15→08:16)
[2021-11-22] MEDS: NICOTINE 14 MG/24 HR PATCH TD SCH (08:16)
[2021-11-22] MEDS ORDERED: dexAMETHasone 6 MG in SYRINGE 0 ML IV ONE (10:45)
[2021-11-22] MEDS: MoRPHine SULF/NSS 250 MG/250 ML BTL IV SCH (11:09)
[2021-11-22] MEDS: NYSTATIN SUSP 500,000 U/5 ML UDC PO SCH ×2 (17:35→20:37)
[2021-11-22] MEDS ORDERED: FIRST - Mouthwash BLM 119 ML PO PRN (18:16)
[2021-11-22] MEDS ORDERED: FIRST - Mouthwash BLM 5 ML UDP PO ONE (18:16)
[2021-11-22] MEDS: MoRPHine SULFATE 4 MG/ML 1 ML CARP\\VIAL IV PRN (20:51)
[2021-11-23] MEDS: PROMETHAZINE HCL 12.5 MG in SODIUM CHLORIDE 0.9% 50 ML IV SCH ×2 (01:12→06:25)
--- NOTE | 2021-11-23 08:22 | Hospitalist Progress Note ---
Date of Service November 23, 2021 Assessment & Plan (1) Comfort measures only status: Plan: - Patient began having nausea/vomiting on 11/18. KUB showed a distended stomach but no SBO; patient did not want further workup for this and request to be made comfortable and would like to get rest - She continued to have emesis 11/19 of a brown liquid consistency and continued with worsening abdominal pain but responded well to JUN Phenergan and ongoing Morphine gtt with bolus Morphine Continue Morphine gtt and titrate Q15M for comfort; Phenergan Q6H JUN but can hold if no signs of vomiting; PRN IV Ativan; PRN IV Morphine boluses No further vomiting with scheduled phernergan and scopalamine patch (noted allergy to hydrocodone with n/v) Patient REFUSING NGT if uncontrolled vomiting to occur. Atropine gtt if needed but will give dose of glycopyrrolate x1 for secretions Ativan prn -- had been taking xanax very regularly and suspect anxiety a large component of end of life/symptoms --> Changed to scheduled Q4H dosing, additional to be available if needed Updated daughter and sister at bedside afternoon 11/21 --> Given decadron 6mg IVP for oswald pain 11/21, extra 1mg ativan x 1 now as making scheduled, glycopyrrolate x 1 for secretions --> Had tingling/repeat symptoms of hypomagnesemia -- 1gm iv x 1 for symptoms but discussed this is likely a bandaid. No evidence for DVT at this time but is no longer continued on the eliquis and is a HIGH risk for hypercoag/clotting 11/22 --> improvement in comfort with decadron and scheduled ativan and will continue with such drinking sips/not much appetite. possible thrush and will order PO nystatin 11/23--> EAtING MUCH MORE --> asked for second tray for breakfast. Montaño still concentrated/cloudy but not as dark. Stated no pain, +anxiety but managing with scheduled, but WHILE AWAKE, ativan dosing Continue decadron for pain control Expect patient may past in next week given above and progressive decline however patient is MUCH more comfortable and less anxious over past [address] [employer], suspect days left given progression towards comfort. Updated daughter and sister at bedside 11/22 (2) Nausea: Plan: See above continued nausea but no further emesis over past 24 hrs and continued jun phenergan NO FURTHER NAUSEA REPORTED (does endorse occasisonal), NO FURTHER VOMITING --> changing phenergan to prn for now but if develops worsening symptoms will change back to scheduled. Consider PO if able but had not been taking much po in days past (3) Pathological fracture, hip, unspecified, initial encounter for fracture: Plan: - Right sided; Either osteoporotic, or very well could be pathologic from bone mets from her metastatic cancer. -- Reviewed PET scan from 2019 - no noted metastasis to bones at that time but could have progressed - Vit D low 12.9 - not taking much orals - S/P Intramedullary nailing of right hip femur fracture on 11/09 - Douglas Hollis MD -- will need F/U 2-3 weeks from surgery however suspect patient may pass in days - S/P 1 unit PRBC on 11/09 - WBAT RLL - Continue pain control -- Morphine as above - Does have an acute leukocytosis - suspect this is in the setting of Decadron but given the vomiting maybe more? She does not want to pursue further workup DECADRON DAILY for PAIN --> ADDITIONAL 6mg AM 11/22 and will continue 4mg IV daily for now to decrease anxiety symptoms and hopefully will keep pain level controlled as well (4) COPD with exacerbation: Plan: - Initially treated with IV steroids and Decadron but now not taking much orally - O2 for comfort - Has had atypical coverage; convert Levaquin to Augmentin more for urinary coverage -- treatment complete - Can use supportive medications if able to take orals - otherwise morphine/ativan (5) Stage 4 lung cancer: Plan: - On hospice at home with her daughter since 2020 (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 - Daughter reports changing the dressings 3-4x's each day. - Even with dressings in place stool leaks all over the abdominal wall (7) Tachycardia: Plan: - Suspect 2nd to pain, advanced lung disease, anxiet, actively dying etc. - PE is theoretically possible but she has been on full-strength anticoagulation at home with Eliquis -- holding currently though -- She has h/o pericardial effusion - likely malignant - this could be present and certainly worse than previous. -- Would not pursue work-up such as CTA chest, echo, etc. --> Patient not wanting to pursue further work-up Rates better controlled with adequate pain/anxiety control as above (8) Hematuria: Plan: - Reported by pt's daughter. -- Would not pursue work-up given hospice status. - Patient will have montaño during this stay can continue on D/C given hospice -- Is on Pyridium so may be misleading on urine color -- Abx for UTI - covered with Augmentin until 11/17 - Cx with klebsiella oxytoca no further hematuria however does have purulant drainage noted (9) Abdominal abscess: Plan: - Patient with prior h/o numerous intra-abdominal abscesses. -- CTs from spring 2020 showed such. - Was receiving antibiotics for them during that time, then ultimately d/c due to transitioned to hospice. - Has had intermittent fevers for weeks/months per daughter - low-grade - could be fevers from these abscesses, or her cancer, or other. - Simply treat any abdominal pain with pain meds. - Would not pursue work-up. (10) History of DVT (deep vein thrombosis): Plan: - Hold Eliquis for now given emesis/brown colored;not taking orals --> Discussed with patient/family at bedside 11/21 regarding risk of holding/hypercoag state/afib and risk for DVT/PE --> They would like ot continue to hold off on taking this medication and understand increased risk (11) Cigarette smoker: Plan: - Nicoderm patch 14mg/day. (12) Chronic kidney disease, stage 3a: Plan: - STABLE; no further lab draws (13) Severe protein-calorie malnutrition: Plan: - NOTED - 2/ stage 4 cancer (14) Hypothyroidism: Plan: - TSH WNL - Cont Synthroid if able to take orals (15) Depression: Plan: - Cont home meds including sleep aids if able to take (16) DVT prophylaxis: Plan: - Eliquis (on hold); Comfort --> NOT RESUMING Plan: - [employer]; Updated daughter on 11/21 with patient's sister also at bedside, again 11/22 and will attempt to stop up again at bedside this evening for continued support/monitoring of symptom control Patient is not stable for transport from hospital at this time and likely will remain inpatient Admission and Anticipated Discharge Date Admission Date: November 08, 2021 Subjective patient evaluated this morning pain controlled asked for second breakfast tray actually -- discussed likely improvement of appetite from the decadron. Drainage to fistula, dressing changed this morning and will continue to monitor. got some nystatin oral yesterday for possible thrush -- did not think helpful and the taste was bad. Discussed trying dose of magic mouthwash to see if effective but denied to bad of soreness today. Got dose of ativan and endorses some anxiety but seems much more comfortable. montaño draining cloudy/concentrated yellow urine, less darkened/josey color than day prior. Enjoyed visit with daughter/sister yesterday. Sadness when talking about her brother who from [employer]. Emotional support provided. no fever, chills, chest pain. Baseline SOb/not worse and breathing reported to be stable. Questions/concerns addressed at this time. Review of Systems Review of Systems: All systems reviewed & are unremarkable except as noted in HPI & below Physical Exam Physical Exam: general - chronically ill/frail appearing female sitting up in bed, no acute distress watching TV eyes- pupils equal, reactive ent- mm dry (improved) neck- trachea midline, without deviation, + JVD resp- diminished in bases with coarse breath sounds, +scattered crackles, occasional wheezing, on 4L NC chest- port to L chest, covered, c/d/i no erythema or tenderness to palpation cardio- RRR, no m/r/g, NO CALF EDEMA/PAIN WITH PALPATION gi- +BS, soft, nontender, ostomy with liquid brown stool output, dressing to RLQ c/d/i msk- RLE with dressing c/d/i, tender to palpation along dressing appropriately to more distal aspect of dressing, no evidence of hematoma, some mild edema, NVI, pulses diminished but palpable, calves non-tender to palpation. lidocaine patch to R shoulder gu- montaño with purulent drainage in tubing/yellow cloudy urine in montaño bag psych- alert, oriented to person/place, not time, pleasant confusion/easily re- oriented Results & Data Results & Data ([facility]) Vital Signs (Past 12 Hours) Vital Signs Temp Pulse Resp BP BP Pulse Ox Pulse Ox 11/23/21 07:41 36.6 C 119/60 11/23/21 06:10 99 02/22/22 20:40 99 11/22/21 20:32 36.7 C 56 L 14 115/54 L 99 PG Care Time/CCT Total # of Minutes Spent Total Time Spent with Patient: Total time spent is greater than 50% in coordination of care (as documented) at patient's floor/unit and/or counseling patient: Coding Level of Care Code 62130 Subseq Hosp Care Lvl 2 Diagnoses Comfort measures only status Z51.5 Nausea R11.0 Pathological fracture, hip, unspecified, initial encounter for fracture M84.459A COPD with exacerbation J44.1 Stage 4 lung cancer C34.90 Abdominal wall fistula K63.2 Tachycardia R00.0 Hematuria R31.9 Abdominal abscess History of DVT (deep vein thrombosis) Z86.718 Cigarette smoker F17.210 Chronic kidney disease, stage 3a N18.3 Severe protein-calorie malnutrition E43 Hypothyroidism E03.9 Hypothyroidism type: acquired Depression F32.9 Depression Type: major depressive disorder Major depression recurrence: unspecified whether recurrent Active/Remission status: remission status unspecified DVT prophylaxis Z29.9 (1) Hypothyroidism Hypothyroidism type: acquired Qualified Code(s): E03.9 - Hypothyroidism, unspecified (2) Depression Depression Type: major depressive disorder Major depression recurrence: unspecified whether recurrent Active/Remission status: remission status unspecified Qualified Code(s): F32.9 - Major depressive disorder, single episode, unspecified
[2021-11-23] MEDS: LORazepam 2 MG/1 ML VIAL IV SCH ×4 (09:05→21:11)
[2021-11-23] MEDS: CHECK SCOPOLAMINE PATCH PLACEMENT SCH ×2 (09:06→15:35)
[2021-11-23] MEDS: LIDOCAINE 5% 1 PATCH TD SCH ×2 (09:07)
[2021-11-23] MEDS: SCOPOLAMINE 1 MG TDSY TD SCH (09:08)
[2021-11-23] MEDS: NYSTATIN SUSP 500,000 U/5 ML UDC PO SCH ×4 (09:08→21:17)
[2021-11-23] MEDS: NICOTINE 14 MG/24 HR PATCH TD SCH (09:10)
[2021-11-23] MEDS: dexAMETHasone 4 MG in SYRINGE 0 ML IV SCH (09:50)
[2021-11-23] MEDS: PROMETHAZINE HCL 12.5 MG in SODIUM CHLORIDE 0.9% 50 ML IV PRN ×3 (09:50→21:31)
[2021-11-23] MEDS: MoRPHine SULF/NSS 250 MG/250 ML BTL IV SCH (15:16)
[2021-11-23] MEDS ORDERED: FIRST - Mouthwash BLM 119 ML PO PRN (16:07)
--- NOTE | 2021-11-23 21:13 | Progress Notes ---
DATE OF SERVICE: 11/23/2021. SUBJECTIVE: A 81-year-old female now 2 weeks out from IM nailing of a right intertrochanteric fractu re. Her hip is doing pretty well. Really not having much pain. She is on hospice care. OBJECTIVE: VITAL SIGNS: Temperature 37.0. Vital signs are stable. PHYSICAL EXAMINATION: GENERAL: Shows a pleasant, cachectic elderly female. She is lying in bed. Looks reasonably comfort able. EXTREMITIES: Examination of the right hip and leg reveals the leg to be well aligned. Her incisions are clean, dry, and intact. There is no drainage. Leg alignment looks good. She can dorsiflex and plantarflex her foot appropriately. Mild pain with hip motion. LABORATORY DATA: No new labs. ASSESSMENT: A 81-year-old white female now 2 weeks out from intramedullary nailing of a right intert rochanteric fracture, on hospice care. Her hip is doing well. She has got multiple other medical is sues, which are being managed. PLAN: 1. DVT prophylaxis includes thigh-high TEDs, SCDs and back on her previous anticoagulation. 2. PT/OT. She can weight bear as tolerated. 3. Pain control, seems to be doing okay with current pain regimen. 4. Medical management as per the medicine service. 5. Suture care, wound care. We will take her ney out tomorrow. 6. Disposition: She is orthopedically okay for discharge any time. I need to see her back in about 6 weeks out from surgery date now. Any orthopedic questions can be directed to me at [phone]. Job ID: [id number]
[2021-11-24] MEDS: CHECK SCOPOLAMINE PATCH PLACEMENT SCH ×3 (01:04→15:55)
[2021-11-24] MEDS: LORazepam 2 MG/1 ML VIAL IV PRN ×2 (01:26→05:43)
--- NOTE | 2021-11-24 08:09 | Hospitalist Progress Note ---
Date of Service November 24, 2021 Assessment & Plan (1) Comfort measures only status: Plan: Patient began having nausea/vomiting on 11/18. KUB showed a distended stomach but no SBO; patient did not want further workup for this and request to be made comfortable and would like to get rest She continued to have emesis 11/19 of a brown liquid consistency and continued with worsening abdominal pain but responded well to JUN Phenergan and ongoing Morphine gtt with bolus Morphine Nausea * Phenergan scheduled initially but no further n/v and tolerating advancement of food * --> had cream of wheat this morning (asked for 2 breakfast 11/23) and wanting mashed potatoes and gravy this evening. * Diet changed * Phenergan changed to prn and no issues * Scopalamine patch continued Pain control * Morphine gtt continues, titrate prn comfort * Had been on decadron prior week for likely oswald pain, no pain reported. * --> After this was stopped patient with significant increase in pain level and was started back on decadron 6mg IV daily x 3 days, decreased to 4mg IV daily to prevent increased anxiety and continues to be effective Anxiety -- major factor. * MUCH IMPROVED AND STABLE --> CONTINUED scheduled dosing while awake and prn needed if not on schedule for breakthrough Atropine gtt if needed. Given glycopyrrolate x 1 for secretions earlier in the week Not continuing on eliquis given prior discussions with patient and daughter -- felt if she develops a clot/PE and passed that would be ok with patient Continue comfort measures, diet as tolerated Continued to update daughter daily -- again at bedside this afternoon 11/24. Initially felt continued decline and likely pass this week, but patient does seem to be stable over the past several days but does not feel she would like to be at home at this time and we will continue inpatient comfort measures. Could be rally before decline Does have intermittent confusion but overall pretty with it (2) Nausea: Plan: See above continued nausea but no further emesis over past 24 hrs and continued jun phenergan NO FURTHER NAUSEA REPORTED (does endorse occasisonal), NO FURTHER VOMITING --> changing phenergan to prn for now but if develops worsening symptoms will change back to scheduled. Consider PO if able but had not been taking much po in days past --> INCREASED INTAKE --> CONSIDER PO PHENERGAN TOMORROW (3) Pathological fracture, hip, unspecified, initial encounter for fracture: Plan: - Right sided; Either osteoporotic, or very well could be pathologic from bone mets from her metastatic cancer. -- Reviewed PET scan from 2019 - no noted metastasis to bones at that time but could have progressed - Vit D low 12.9 - not taking much orals - S/P Intramedullary nailing of right hip femur fracture on 11/09 - Douglas Hollis MD -- will need F/U 2-3 weeks from surgery however suspect patient may pass in days - S/P 1 unit PRBC on 11/09 - WBAT RLL - Continue pain control -- Morphine as above - Does have an acute leukocytosis - suspect this is in the setting of Decadron but given the vomiting maybe more? She does not want to pursue further workup DECADRON DAILY for PAIN --> ADDITIONAL 6mg AM 11/22 and will continue 4mg IV daily for now to decrease anxiety symptoms and hopefully will keep pain level controlled as well (4) COPD with exacerbation: Plan: - Initially treated with IV steroids and Decadron but now not taking much orally - O2 for comfort - Has had atypical coverage; convert Levaquin to Augmentin more for urinary coverage -- treatment complete - Can use supportive medications if able to take orals - otherwise morphine/ativan Stable on nasal cannula -- O2 as needed for comfort/sob symptoms (5) Stage 4 lung cancer: Plan: - On hospice at home with her daughter since 2020 (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 - Daughter reports changing the dressings 3-4x's each day. - Even with dressings in place stool leaks all over the abdominal wall (7) Tachycardia: Plan: - Suspect 2nd to pain, advanced lung disease, anxiet, actively dying etc. - PE is theoretically possible but she has been on full-strength anticoagulation at home with Eliquis -- holding currently though -- She has h/o pericardial effusion - likely malignant - this could be present and certainly worse than previous. -- Would not pursue work-up such as CTA chest, echo, etc. --> Patient not wanting to pursue further work-up Rates better controlled with adequate pain/anxiety control as above (8) Hematuria: Plan: - Reported by pt's daughter. -- Would not pursue work-up given hospice status. - Patient will have montaño during this stay can continue on D/C given hospice -- Is on Pyridium so may be misleading on urine color -- Abx for UTI - covered with Augmentin until 11/17 - Cx with klebsiella oxytoca no further hematuria however does have purulant drainage noted in montaño (9) Abdominal abscess: Plan: - Patient with prior h/o numerous intra-abdominal abscesses. -- CTs from spring 2020 showed such. - Was receiving antibiotics for them during that time, then ultimately d/c due to transitioned to hospice. - Has had intermittent fevers for weeks/months per daughter - low-grade - could be fevers from these abscesses, or her cancer, or other. - Simply treat any abdominal pain with pain meds. - Would not pursue work-up. (10) History of DVT (deep vein thrombosis): Plan: - Hold Eliquis for now given emesis/brown colored;not taking orals --> Discussed with patient/family at bedside 11/21 regarding risk of holding/hypercoag state/afib and risk for DVT/PE --> They would like ot continue to hold off on taking this medication and understand increased risk again, continued to not continue the eliquis (11) Cigarette smoker: Plan: - Nicoderm patch 14mg/day. 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 Plan: [employer]; Continued daily updates to family/support provided did pass away last year, and her brother last month from COVID, so this has been especially challenging Pending course over next couple of days if not improvement before the end/decline, could consider going home (daughter ok with this) but patient does not feel like she would be ok at home and would like to remain inpatient Admission and Anticipated Discharge Date Admission Date: November 08, 2021 Supervising Physician Co-Signing Physician Notes Attending Attestation - Chart reviewed in detail, care plan d/w FREDA Winn. I agree with the thorpe components of her documentation. Jayy Ash MD Subjective patient evaluated around lunch doing well, pain controlled as well as anxiety no nausea reported and wanted cream of wheat this morning, provided. States went well. Currently resting in bed at this time, no acute distress or concerns to patient. Updated daughter Aydee by phone this morning and provided reassurance. Will continue comfort measures only. Stopped by in afternoon to check on patient. Reports NO pain, minimal anxiety but controlled currently. Still hungry and wondering when she can have more food -- discussed no limits, asked what she would like -- going to try mashed potatoes with gravy, fish tomorrow if they have it. Review of Systems Review of Systems: All systems reviewed & are unremarkable except as noted in HPI & below Physical Exam Physical Exam: general - chronically ill/frail appearing female sitting up in bed, visiting with daughter at bedside Mouth- dry mm (slightly improved from days prior) Neck- trachea midline, +JVD Resp: diminished, coarse breath sounds, scattered crackles, 99% on NC CV: regular rate/rhythm (60bpm), no m/r/g, no calf edema or pain with palpation, mottling of LE GI: +BS, ostomy with liquid output, RLQ fistula with continued draining MSK: RLE dressing c/d/i, minimally tender, no hematoma, NVI, pulses diminished but palpable, calves non-tender : montaño with cloudy yellow urine draining with some purulent material in tubing Psych: alert to person/place, knows she is in the hospital, intermittent confusion at times depending on when she has gotten her medications Results & Data Results & Data ([facility]) Vital Signs (Past 12 Hours) Vital Signs Temp Pulse Resp BP BP Pulse Ox 11/24/21 07:37 36.4 C L 69 17 138/72 100 11/24/21 01:29 36.5 C 60 20 150/75 H 99 PG Care Time/CCT Total # of Minutes Spent Total Time Spent with Patient: Total time spent is greater than 50% in coordination of care (as documented) at patient's floor/unit and/or counseling patient: Prolonged Care Time Prolonged Care Time: Yes 30 additional minutes spent at bedside to ensure patients symptoms well controlled and to update family regularly Coding Level of Care Code 14602 Subseq Hosp Care Lvl 2 (25 - SIGNIFICANT, SEPARATELY IDENTIFIABLE ) Diagnoses Comfort measures only status Z51.5 Nausea R11.0 Pathological fracture, hip, unspecified, initial encounter for fracture M84.459A COPD with exacerbation J44.1 Stage 4 lung cancer C34.90 Abdominal wall fistula K63.2 Tachycardia R00.0 Hematuria R31.9 Abdominal abscess History of DVT (deep vein thrombosis) Z86.718 Cigarette smoker F17.210 Chronic kidney disease, stage 3a N18.3 Severe protein-calorie malnutrition E43 Hypothyroidism E03.9 Hypothyroidism type: acquired Depression F32.9 Active/Remission status: remission status unspecified Depression Type: major depressive disorder Major depression recurrence: unspecified whether recurrent DVT prophylaxis Z29.9 Additional Codes Prolonged Care Time - Prolonged Care Time: Yes ([id number]) (1) Depression Active/Remission status: remission status unspecified Depression Type: major depressive disorder Major depression recurrence: unspecified whether recurrent Qualified Code(s): F32.9 - Major depressive disorder, single episode, unspecified (2) Hypothyroidism Hypothyroidism type: acquired Qualified Code(s): E03.9 - Hypothyroidism, un specified
[2021-11-24] MEDS: LORazepam 2 MG/1 ML VIAL IV SCH ×4 (08:51→20:01)
[2021-11-24] MEDS: LIDOCAINE 5% 1 PATCH TD SCH ×2 (08:53→08:55)
[2021-11-24] MEDS: NICOTINE 14 MG/24 HR PATCH TD SCH (08:55)
[2021-11-24] MEDS: NYSTATIN SUSP 500,000 U/5 ML UDC PO SCH ×4 (08:56→20:06)
[2021-11-24] MEDS: dexAMETHasone 4 MG in SYRINGE 0 ML IV SCH (09:00)
[2021-11-25] MEDS: CHECK SCOPOLAMINE PATCH PLACEMENT SCH ×3 (00:56→17:53)
--- NOTE | 2021-11-25 07:51 | Progress Notes ---
DATE OF SERVICE: 11/25/2021. SUBJECTIVE: A 81-year-old white female on hospice care, now 16 days out from IM nailing of a right i ntertrochanteric fracture. She is doing well. Really not much leg pain. OBJECTIVE: VITAL SIGNS: Temperature 36.7. Vital signs are stable. EXTREMITIES: Physical examination of the right hip and leg reveals leg lengths are equal. The incis ions are clean, dry, and intact. She can do a straight leg raise. Minimal pain with hip motion. Sh e is neurologically intact. ASSESSMENT: A 81-year-old white female on hospice care, now 2-1/2 weeks out from IM nailing of an in tertrochanteric fracture. Orthopedically, she is doing well. PLAN: 1. DVT prophylaxis including thigh-high TEDs, SCDs and back on her anticoagulation. She is back on normal strength Eliquis. 2. PT/OT. She can weight bear as tolerated on the right lower extremity. 3. Wound care. We will remove her ney today. 4. Medical management per the medicine service. 5. Disposition: She is orthopedically okay for discharge any time. I now need to see her until abo ut a month from now or about 6 weeks out from her surgery date. Any orthopedic questions can be dire cted to me at [phone]. Job ID: [id number]
--- NOTE | 2021-11-25 07:56 | Hospitalist Progress Note ---
Date of Service November 25, 2021 Assessment & Plan (1) Comfort measures only status: Plan: Patient began having nausea/vomiting on 11/18. KUB showed a distended stomach but no SBO; patient did not want further workup for this and request to be made comfortable and would like to get rest She continued to have emesis 11/19 of a brown liquid consistency and continued with worsening abdominal pain but responded well to JOSE E Phenergan and ongoing Morphine gtt with bolus Morphine Nausea * Phenergan scheduled initially but no further n/v and tolerating advancement of food * --> had cream of wheat this morning (asked for 2 breakfast 11/23) and wanting mashed potatoes and gravy this evening. * Diet changed * Phenergan changed to prn and no issues * Scopalamine patch continued Pain control * Morphine gtt continues, titrate prn comfort * Had been on decadron prior week for likely oswald pain, no pain reported. * --> After this was stopped patient with significant increase in pain level and was started back on decadron 6mg IV daily x 3 days, decreased to 4mg IV daily to prevent increased anxiety and continues to be effective Anxiety -- major factor. * MUCH IMPROVED AND STABLE --> CONTINUED scheduled dosing while awake and prn needed if not on schedule for breakthrough Atropine gtt if needed. Given glycopyrrolate x 1 for secretions earlier in the week Not continuing on eliquis given prior discussions with patient and daughter -- felt if she develops a clot/PE and passed that would be ok with patient Continue comfort measures, diet as tolerated Continued to update daughter daily -- again at bedside this afternoon 11/24. Initially felt continued decline and likely pass this week, but patient does seem to be stable over the past several days but does not feel she would like to be at home at this time and we will continue inpatient comfort measures. Could be rally before decline Does have intermittent confusion but overall pretty with it 11/25 --> Morphine gtt (currently at 4ml/hr), ativan SCHWA (4 doses 11/24, 2 doses prn) Tolerating diet. NO FURTHER NAUSEA (no further phenergan given since 11/23) --> DID HAVE SOME AFTER BREAKFAST, RESOLVED WITH PHENERGAN If remains stable (2) Nausea: Plan: See above continued nausea but no further emesis over past 24 hrs and continued [facility] phenergan Nausea x 1 11/25 (hasn't used since 11/23), --> Resolved w/ phenergan x 1 which is now prn PO option ordered in case able to take, otherwise IV prn (3) Pathological fracture, hip, unspecified, initial encounter for fracture: Plan: - Right sided; Either osteoporotic, or very well could be pathologic from bone mets from her metastatic cancer. -- Reviewed PET scan from 2019 - no noted metastasis to bones at that time but could have progressed - Vit D low 12.9 - not taking much orals - S/P Intramedullary nailing of right hip femur fracture on 11/09 - Douglas Hollis MD -- will need F/U 2-3 weeks from surgery however suspect patient may pass in days - S/P 1 unit PRBC on 11/09 - WBAT RLL - Continue pain control -- Morphine as above - Does have an acute leukocytosis - suspect this is in the setting of Decadron but given the vomiting maybe more? She does not want to pursue further workup DECADRON DAILY for PAIN --> ADDITIONAL 6mg AM 11/22 Continue 4mg IV daily for now to decrease anxiety symptoms and hopefully will keep pain level controlled as well -- well controlled (4) COPD with exacerbation: Plan: - Initially treated with IV steroids and Decadron but now not taking much orally - O2 for comfort - Has had atypical coverage; convert Levaquin to Augmentin more for urinary coverage -- treatment complete - Can use supportive medications if able to take orals - otherwise morphine/ativan Stable on nasal cannula -- O2 as needed for comfort/sob symptoms (5) Stage 4 lung cancer: Plan: - On hospice at home with her daughter since 2020 (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 - Daughter reports changing the dressings 3-4x's each day. - Even with dressings in place stool leaks all over the abdominal wall (7) Tachycardia: Plan: - Suspect 2nd to pain, advanced lung disease, anxiet, actively dying etc. - PE is theoretically possible but she has been on full-strength anticoagulation at home with Eliquis -- holding currently though -- She has h/o pericardial effusion - likely malignant - this could be present and certainly worse than previous. -- Would not pursue work-up such as CTA chest, echo, etc. --> Patient not wanting to pursue further work-up Rates better controlled with adequate pain/anxiety control as above (8) Hematuria: Plan: - Reported by pt's daughter. -- Would not pursue work-up given hospice status. - Patient will have montaño during this stay can continue on D/C given hospice -- Is on Pyridium so may be misleading on urine color -- Abx for UTI - covered with Augmentin until 11/17 - Cx with klebsiella oxytoca no further hematuria however does have purulant drainage noted in montaño (9) Abdominal abscess: Plan: - Patient with prior h/o numerous intra-abdominal abscesses. -- CTs from spring 2020 showed such. - Was receiving antibiotics for them during that time, then ultimately d/c due to transitioned to hospice. - Has had intermittent fevers for weeks/months per daughter - low-grade - could be fevers from these abscesses, or her cancer, or other. - Simply treat any abdominal pain with pain meds. - Would not pursue work-up. (10) History of DVT (deep vein thrombosis): Plan: - Hold Eliquis for now given emesis/brown colored;not taking orals --> Discussed with patient/family at bedside 11/21 regarding risk of holding/hypercoag state/afib and risk for DVT/PE --> They would like ot continue to hold off on taking this medication and understand increased risk again, continued to not continue the eliquis (11) Cigarette smoker: Plan: - Nicoderm patch 14mg/day. 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 I agree with the thorpe components of her documentation. Continue comfort measures including morphine drip, ativan IV, steroids IV, etc. Jayy Ash MD Subjective patient evaluated around lunch time. ate breakfast. some mild nausea, denied any at current time but did just get some phenergan (hasn't used since 11/23). Denies pain, anxiety controlled. Wondering when Aydee will be visiting -- discussed this afternoon likely as roads bad. Remains stable currently. She would like to rest at this time Question/concerns addressed Review of Systems Review of Systems: All systems reviewed & are unremarkable except as noted in HPI & below Physical Exam Physical Exam: general - chronically ill/frail appearing female laying in bed Mouth- dry mm (slightly improved from days prior) Neck- trachea midline, +JVD Resp: diminished, coarse breath sounds, scattered crackles, 99% on NC CV: regular rate/rhythm (58bpm), no m/r/g, no calf edema or pain with palpation, mottling of LE bilaterally GI: +BS, +ostomy functioning and intact, RLQ fistula with yellowish drainage to dressing MSK: RLE dressing c/d/i (ney to be removed today), non-tender, no hematoma, NVI, pulses diminished but palpable, calves non-tender : montaño with cloudy yellow urine draining with some purulent material in tubing Psych: alert to person/place, in hospital, intermittent confusion but easily re- oriented, pleasant and cooperative Results & Data Results & Data ([facility]) Vital Signs (Past 12 Hours) Vital Signs Temp Pulse Pulse Resp BP Pulse Ox 11/25/21 07:45 36.7 C 54 L 16 123/66 98 11/25/21 00:49 36.7 C 68 18 148/76 H 99 PG Care Time/CCT Total # of Minutes Spent Total Time Spent with Patient: Total time spent is greater than 50% in coordination of care (as documented) at patient's floor/unit and/or counseling patient: Coding Level of Care Code 19418 Subseq Hosp Care Lvl 2 Diagnoses Comfort measures only status Z51.5 Nausea R11.0 Pathological fracture, hip, unspecified, initial encounter for fracture M84.459A COPD with exacerbation J44.1 Stage 4 lung cancer C34.90 Abdominal wall fistula K63.2 Tachycardia R00.0 Hematuria R31.9 Abdominal abscess History of DVT (deep vein thrombosis) Z86.718 Cigarette smoker F17.210 Chronic kidney disease, stage 3a N18.3 Severe protein-calorie malnutrition E43 Hypothyroidism E03.9 Hypothyroidism type: acquired Depression F32.9 Active/Remission status: remission status unspecified Depression Type: major depressive disorder Major depression recurrence: unspecified whether recurrent DVT prophylaxis Z29.9 (1) Depression Active/Remission status: remission status unspecified Depression Type: major depressive disorder Major depression recurrence: unspecified whether recurrent Qualified Code(s): F32.9 - Major depressive disorder, single episode, unspecified (2) Hypothyroidism Hypothyroidism type: acquired Qualified Code(s): E03.9 - Hypothyroidism, unspecified
[2021-11-25] MEDS ORDERED: PROMETHAZINE HCL 12.5 MG/10 ML UDP PO PRN (08:01)
[2021-11-25] MEDS: LIDOCAINE 5% 1 PATCH TD SCH ×2 (08:19→08:21)
[2021-11-25] MEDS: NICOTINE 14 MG/24 HR PATCH TD SCH (08:19)
[2021-11-25] MEDS: dexAMETHasone 4 MG in SYRINGE 0 ML IV SCH (08:20)
[2021-11-25] MEDS: LORazepam 2 MG/1 ML VIAL IV SCH ×4 (08:20→21:00)
[2021-11-25] MEDS: NYSTATIN SUSP 500,000 U/5 ML UDC PO SCH ×4 (08:21→20:56)
[2021-11-25] MEDS: PROMETHAZINE HCL 12.5 MG in SODIUM CHLORIDE 0.9% 50 ML IV PRN (11:01)
[2021-11-25] MEDS: MoRPHine SULF/NSS 250 MG/250 ML BTL IV SCH (14:08)
[2021-11-26] MEDS: CHECK SCOPOLAMINE PATCH PLACEMENT SCH ×4 (00:31→23:56)
[2021-11-26] MEDS: LORazepam 2 MG/1 ML VIAL IV PRN (05:12)
[2021-11-26] MEDS: MoRPHine SULF/NSS 250 MG/250 ML BTL IV SCH (07:28)
[2021-11-26] MEDS: LIDOCAINE 5% 1 PATCH TD SCH ×2 (07:29→08:22)
[2021-11-26] MEDS: NICOTINE 14 MG/24 HR PATCH TD SCH (08:22)
[2021-11-26] MEDS: LORazepam 2 MG/1 ML VIAL IV SCH ×4 (08:22→20:42)
[2021-11-26] MEDS: dexAMETHasone 4 MG in SYRINGE 0 ML IV SCH (08:22)
[2021-11-26] MEDS: NYSTATIN SUSP 500,000 U/5 ML UDC PO SCH ×4 (08:24→20:46)
[2021-11-26] MEDS: SCOPOLAMINE 1 MG TDSY TD SCH (08:36)
--- NOTE | 2021-11-26 09:23 | Hospitalist Progress Note ---
Date of Service November 26, 2021 Assessment & Plan (1) Comfort measures only status: Plan: Patient began having nausea/vomiting on 11/18. KUB showed a distended stomach but no SBO; patient did not want further workup for this and request to be made comfortable and would like to get rest She continued to have emesis 11/19 of a brown liquid consistency and continued with worsening abdominal pain but responded well to JUN Phenergan and ongoing Morphine gtt with bolus Morphine Nausea * Phenergan scheduled initially but no further n/v and tolerating advancement of food * --> had cream of wheat this morning (asked for 2 breakfast 11/23) and wanting mashed potatoes and gravy this evening. * Diet changed * Phenergan changed to prn and no issues * Scopalamine patch continued Pain control * Morphine gtt continues, titrate prn comfort * Had been on decadron prior week for likely oswald pain, no pain reported. * --> After this was stopped patient with significant increase in pain level and was started back on decadron 6mg IV daily x 3 days, decreased to 4mg IV daily to prevent increased anxiety and continues to be effective Anxiety -- major factor. * MUCH IMPROVED AND STABLE --> CONTINUED scheduled dosing while awake and prn needed if not on schedule for breakthrough Atropine gtt if needed. Given glycopyrrolate x 1 for secretions earlier in the week Not continuing on eliquis given prior discussions with patient and daughter -- felt if she develops a clot/PE and passed that would be ok with patient Continue comfort measures, diet as tolerated Continued to update daughter daily -- again at bedside this afternoon 11/24. Initially felt continued decline and likely pass this week, but patient does seem to be stable over the past several days but does not feel she would like to be at home at this time and we will continue inpatient comfort measures. Could be rally before decline Does have intermittent confusion but overall pretty with it 11/25 --> Morphine gtt (currently at 4ml/hr), ativan SCHWA (4 doses 11/24, 2 doses prn) Tolerating diet. NO FURTHER NAUSEA (no further phenergan given since 11/23) --> DID HAVE SOME AFTER BREAKFAST, RESOLVED WITH PHENERGAN 11/26 Morphine increased to 5ml/hr. Continued current dose Ativan/Decadron. Continued improvement of appetite. Does have increased drainage from her LLQ fistula but suspect from increased intake Phenergan on 11/25 but none today and denied nausea at this time Continued monitoring through weekend but if symptoms controlled and not rally before decline to discuss about wishes to return home if they would like. Wound seen 11/25, stage II sacral decub present on admission, also confirmed with daughter. --> Consider charcoal dressings, they are looking into such (2) Nausea: Plan: See above continued nausea but no further emesis over past 24 hrs and continued jun phenergan Nausea x 1 11/25 (hasn't used since 11/23), --> Resolved w/ phenergan x 1 11/25 and no further reported PO option ordered in case able to take, otherwise IV prn (3) Pathological fracture, hip, unspecified, initial encounter for fracture: Plan: - Right sided; Either osteoporotic, or very well could be pathologic from bone mets from her metastatic cancer. -- Reviewed PET scan from 2019 - no noted metastasis to bones at that time but could have progressed - Vit D low 12.9 - not taking much orals - S/P Intramedullary nailing of right hip femur fracture on 11/09 - Douglas Hollis MD -- will need F/U 2-3 weeks from surgery however suspect patient may pass in days - S/P 1 unit PRBC on 11/09 - WBAT RLL - Continue pain control -- Morphine as above - Does have an acute leukocytosis - suspect this is in the setting of Decadron but given the vomiting maybe more? She does not want to pursue further workup DECADRON DAILY for PAIN --> ADDITIONAL 6mg AM 11/22 Continue 4mg IV daily for now to decrease anxiety symptoms and hopefully will keep pain level controlled as well -- well controlled (4) COPD with exacerbation: Plan: - Initially treated with IV steroids and Decadron but now not taking much orally - O2 for comfort - Has had atypical coverage; convert Levaquin to Augmentin more for urinary coverage -- treatment complete - Can use supportive medications if able to take orals - otherwise morphine/ativan Stable on nasal cannula -- O2 as needed for comfort/sob symptoms (5) Stage 4 lung cancer: Plan: - On hospice at home with her daughter since 2020 (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 - Daughter reports changing the dressings 3-4x's each day. - Even with dressings in place stool leaks all over the abdominal wall (7) Tachycardia: Plan: - Suspect 2nd to pain, advanced lung disease, anxiet, actively dying etc. - PE is theoretically possible but she has been on full-strength anticoagulation at home with Eliquis -- holding currently though -- She has h/o pericardial effusion - likely malignant - this could be present and certainly worse than previous. -- Would not pursue work-up such as CTA chest, echo, etc. --> Patient not wanting to pursue further work-up Rates better controlled with adequate pain/anxiety control as above (8) Hematuria: Plan: - Reported by pt's daughter. -- Would not pursue work-up given hospice status. - Patient will have montaño during this stay can continue on D/C given hospice -- Is on Pyridium so may be misleading on urine color -- Abx for UTI - covered with Augmentin until 11/17 - Cx with klebsiella oxytoca no further hematuria however does have purulant drainage noted in montaño (9) Abdominal abscess: Plan: - Patient with prior h/o numerous intra-abdominal abscesses. -- CTs from spring 2020 showed such. - Was receiving antibiotics for them during that time, then ultimately d/c due to transitioned to hospice. - Has had intermittent fevers for weeks/months per daughter - low-grade - could be fevers from these abscesses, or her cancer, or other. - Simply treat any abdominal pain with pain meds. - Would not pursue work-up. (10) History of DVT (deep vein thrombosis): Plan: - Hold Eliquis for now given emesis/brown colored;not taking orals --> Discussed with patient/family at bedside 11/21 regarding risk of holding/hypercoag state/afib and risk for DVT/PE --> They would like ot continue to hold off on taking this medication and understand increased risk again, continued to not continue the eliquis (11) Cigarette smoker: Plan: - Nicoderm patch 14mg/day. 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 did pass away last year, and her brother last month from COVID, so this has been especially challenging Pending course over next couple of days if not improvement before the end/decline, could consider going home (daughter ok with this) but patient does not feel like she would be ok at home and would like to remain inpatient Admission and Anticipated Discharge Date Admission Date: November 08, 2021 Subjective eval this morning pain improved with increase in morphine, none reported currently anxiety controlled continued improved appetite, loved the soup but not a fan of the chicken and would like more soup. call placed to kitchen to request more daughter visited last night, good visit discussed continued monitoring through the weekend and re-eval for safety home next week if she wants to consider this. Review of Systems Review of Systems: All systems reviewed & are unremarkable except as noted in HPI & below Physical Exam Physical Exam: general - chronically ill/frail appearing female laying in bed, eating lunch, NAD Mouth- improvement of dry mm Neck- trachea midline, no JVF Resp: diminished, coarse breath sounds, scattered faint crackles, 99% on NC, no wheezing CV: regular rate/rhythm (62bpm), no m/r/g, no calf edema or pain with palpation, mottling of LE bilaterally GI: +BS, +ostomy functioning and intact, RLQ fistula with copious yellow/brown output MSK: RLE incision looks good, no drainage. NVI, pulses palpable, calves non- tender or edematous, b/l LE in waffle boots : cloudy yellow urine draining Skin: b/l heel wounds, +sacral decubitus ulcer stage II : montaño with cloudy yellow urine draining with some purulent material in tubing Psych: alert to person/place, in hospital, intermittent confusion but easily re-oriented, pleasant and cooperative, stares at TV frequently Results & Data Results & Data ([facility]) Vital Signs (Past 12 Hours) Vital Signs Temp Pulse Pulse Resp BP Pulse Ox 11/26/21 07:41 36.6 C 64 16 132/68 98 11/25/21 23:34 36.6 C 57 L 16 131/70 93 PG Care Time/CCT Total # of Minutes Spent Total Time Spent with Patient: Total time spent is greater than 50% in coordination of care (as documented) at patient's floor/unit and/or counseling patient: Coding Level of Care Code 09762 Subseq Hosp Care Lvl 2 Diagnoses Comfort measures only status Z51.5 Nausea R11.0 Pathological fracture, hip, unspecified, initial encounter for fracture M84.459A COPD with exacerbation J44.1 Stage 4 lung cancer C34.90 Abdominal wall fistula K63.2 Tachycardia R00.0 Hematuria R31.9 Abdominal abscess History of DVT (deep vein thrombosis) Z86.718 Cigarette smoker F17.210 Chronic kidney disease, stage 3a N18.3 Severe protein-calorie malnutrition E43 Hypothyroidism E03.9 Hypothyroidism type: acquired Depression F32.9 Depression Type: major depressive disorder Major depression recurrence: unspecified whether recurrent Active/Remission status: remission status unspecified DVT prophylaxis Z29.9 (1) Hypothyroidism Hypothyroidism type: acquired Qualified Code(s): E03.9 - Hypothyroidism, u nspecified (2) Depression Depression Type: major depressive disorder Major depression recurrence: unspecified whether recurrent Active/Remission status: remission status unspecified Qualified Code(s): F32.9 - Major depressive disorder, single episode, unspecified
--- NOTE | 2021-11-26 10:42 | Progress Notes ---
DATE OF SERVICE: 11/26/2021. SUBJECTIVE: A 81-year-old white female on hospice care, now 2-1/2 weeks out from IM nailing of a rig ht intertrochanteric fracture. Her right leg continues to do pretty well. She has got multiple othe r medical issues. No real complaints with respect to her right hip. OBJECTIVE: VITAL SIGNS: Temperature 36.6. Vital signs are stable. PHYSICAL EXAMINATION: GENERAL: Shows a pleasant, cachectic elderly female. Lying in bed, looks pretty comfortable. EXTREMITIES: Examination of the right hip and leg reveals leg lengths are equal. The incisions are all clean, dry and intact and well healed. The ney are out. She is neurologically intact. ASSESSMENT: A 81-year-old white female on hospice care, now 2-1/2 weeks out from intramedullary nail ing of a right intertrochanteric fracture. Orthopedically, she is doing well. She is on supportive care. PLAN: At this point, her nye are removed. She can fully weightbear as tolerated. I do not need to see her back for about a month. Any orthopedic questions can be directed to me at [phone]. We are going to sign off for now. Job ID: [id number]
[2021-11-27] MEDS ORDERED: POLYETHYLENE (MIRALAX) 17 GM PACK ONE (05:41)
[2021-11-27] MEDS: POLYETHYLENE (MIRALAX) 17 GM PACK PO SCH (05:44)
--- NOTE | 2021-11-27 08:17 | Hospitalist Progress Note ---
Date of Service November 27, 2021 Assessment & Plan (1) Comfort measures only status: Plan: Patient began having nausea/vomiting on 11/18. KUB showed a distended stomach but no SBO; patient did not want further workup for this and request to be made comfortable and would like to get rest She continued to have emesis 11/19 of a brown liquid consistency and continued with worsening abdominal pain but responded well to JUN Phenergan and ongoing Morphine gtt with bolus Morphine Nausea * Phenergan scheduled initially but no further n/v and tolerating advancement of food * --> had cream of wheat this morning (asked for 2 breakfast 11/23) and wanting mashed potatoes and gravy this evening. * Diet changed * Phenergan changed to prn and no issues * Scopalamine patch continued Pain control * Morphine gtt continues, titrate prn comfort * Had been on decadron prior week for likely oswald pain, no pain reported. * --> After this was stopped patient with significant increase in pain level and was started back on decadron 6mg IV daily x 3 days, decreased to 4mg IV daily to prevent increased anxiety and continues to be effective Anxiety -- major factor. * MUCH IMPROVED AND STABLE --> CONTINUED scheduled dosing while awake and prn needed if not on schedule for breakthrough Atropine gtt if needed. Given glycopyrrolate x 1 for secretions earlier in the week Not continuing on eliquis given prior discussions with patient and daughter -- felt if she develops a clot/PE and passed that would be ok with patient Continue comfort measures, diet as tolerated Continued to update daughter daily -- again at bedside this afternoon 11/24. Initially felt continued decline and likely pass this week, but patient does seem to be stable over the past several days but does not feel she would like to be at home at this time and we will continue inpatient comfort measures. Could be rally before decline Does have intermittent confusion but overall pretty with it 11/25 --> Morphine gtt (currently at 4ml/hr), Ativan SCHWA (4 doses 11/24, 2 doses prn) Tolerating diet. NO FURTHER NAUSEA (no further Phenergan given since 11/23) --> DID HAVE SOME AFTER BREAKFAST, RESOLVED WITH PHENERGAN 11/26 Morphine increased to 5ml/hr. Continued current dose Ativan/Decadron. Continued improvement of appetite. Does have increased drainage from her LLQ fistula but suspect from increased intake Phenergan on 11/25 but none today and denied nausea at this time Continued monitoring through weekend but if symptoms controlled and not rally before decline to discuss about wishes to return home if they would like. Wound seen 11/25, stage II sacral decub present on admission, also confirmed with daughter. --> Consider charcoal dressings, they are looking into such 11/27 --> Met with patient and daughter at bedside per patient request last evening. Stating symptoms controlled on current regimen. 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 Alerted CM last evening. Will need re-eval/intake by hospice on Sunday as everything already previously returned. Daughter on board with plan, aware of inability to enroll over weekend and hopefully will get Mrs Burgos home on Sunday/Sunday as soon as possible when able to be arranged On morphine gtt Ativan scheduled while awake, prn if needed Would continue Decadron 4mg daily for pain (decreased from 6mg previously for increased anxiety symptoms and anxiety seems to be much more controlled but morphine did need increased to 5/hr) Phenergan x 1 today -- continue at discharge CM to assist with arranging for tomorrow if possible. If arrangements in place can discharge back home with family support/hospice services (2) Nausea: Plan: See above continued nausea but no further emesis over past 24 hrs and continued jun phenergan Nausea x 1 11/25 (hasn't used since 11/23), --> Resolved w/ phenergan x 1 11/25 PO option ordered in case able to take, otherwise IV prn (3) Pathological fracture, hip, unspecified, initial encounter for fracture: Plan: - Right sided; Either osteoporotic, or very well could be pathologic from bone mets from her metastatic cancer. -- Reviewed PET scan from 2019 - no noted metastasis to bones at that time but could have progressed - Vit D low 12.9 - not taking much orals - S/P Intramedullary nailing of right hip femur fracture on 11/09 - Douglas Hollis MD -- will need F/U 2-3 weeks from surgery however suspect patient may pass in days - S/P 1 unit PRBC on 11/09 - WBAT RLL - Continue pain control -- Morphine as above - Does have an acute leukocytosis - suspect this is in the setting of Decadron but given the vomiting maybe more? She does not want to pursue further workup DECADRON DAILY for PAIN --> ADDITIONAL 6mg AM 11/22 Continue 4mg IV daily for now to decrease anxiety symptoms and hopefully will keep pain level controlled as well -- well controlled (4) COPD with exacerbation: Plan: - Initially treated with IV steroids and Decadron but now not taking much orally - O2 for comfort - Has had atypical coverage; convert Levaquin to Augmentin more for urinary coverage -- treatment complete - Can use supportive medications if able to take orals - otherwise morphine/ativan Stable on nasal cannula -- O2 as needed for comfort/sob symptoms (5) Stage 4 lung cancer: Plan: - On hospice at home with her daughter since 2020 (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 - Daughter reports changing the dressings 3-4x's each day. - Even with dressings in place stool leaks all over the abdominal wall (7) Tachycardia: Plan: - Suspect 2nd to pain, advanced lung disease, anxiet, actively dying etc. - PE is theoretically possible but she has been on full-strength anticoagulation at home with Eliquis -- holding currently though -- She has h/o pericardial effusion - likely malignant - this could be present and certainly worse than previous. -- Would not pursue work-up such as CTA chest, echo, etc. --> Patient not wanting to pursue further work-up Rates better controlled with adequate pain/anxiety control as above (8) Hematuria: Plan: - Reported by pt's daughter. -- Would not pursue work-up given hospice status. - Patient will have montaño during this stay can continue on D/C given hospice -- Is on Pyridium so may be misleading on urine color -- Abx for UTI - covered with Augmentin until 11/17 - Cx with klebsiella oxytoca no further hematuria however does have purulant drainage noted in montaño (9) Abdominal abscess: Plan: - Patient with prior h/o numerous intra-abdominal abscesses. -- CTs from spring 2020 showed such. - Was receiving antibiotics for them during that time, then ultimately d/c due to transitioned to hospice. - Has had intermittent fevers for weeks/months per daughter - low-grade - could be fevers from these abscesses, or her cancer, or other. - Simply treat any abdominal pain with pain meds. - Would not pursue work-up. (10) History of DVT (deep vein thrombosis): Plan: - Hold Eliquis for now given emesis/brown colored;not taking orals --> Discussed with patient/family at bedside 11/21 regarding risk of holding/hypercoag state/afib and risk for DVT/PE --> They would like ot continue to hold off on taking this medication and understand increased risk again, continued to not continue the eliquis (11) Cigarette smoker: Plan: - Nicoderm patch 14mg/day. 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 but if patient wants to resume at discharge she can. 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 Cm following Admission and Anticipated Discharge Date Admission Date: November 08, 2021 Subjective patient evaluated this afternoon sitting up in bed, eating chicken and mashed potatoes with gravy. smiling, states pain controlled. Had some mild nausea this morning relieved with dose of phenergan. Per nursing, does not really want to get up out of bed or be positioned at this time. Fistula with continued drainage, changed once today. Ostomy with pastier output, getting some miralax/stool softener. No fever/chills/chest pain. Breathing stable and unlabored. Hopefully able to arrange for hospice tomorrow and discharge home as soon as arranged. Will continue morphine MARKET SUPERINTENDENT as previoulsy hospice said they were able to accommodate, phenergan prn, and ativan scheduled while awake and prn at discharge along with continued PO decadron for oswald pain. Review of Systems Review of Systems: All systems reviewed & are unremarkable except as noted in HPI & below Physical Exam Physical Exam: general - chronically ill/frail appearing female laying in bed, eating lunch, NAD Mouth- mmm Neck- trachea midline, no JVF Resp: diminished, coarse breath sounds, scattered faint crackles, 99% on NC, no wheezing CV: regular rate/rhythm (60bpm), no m/r/g, no calf edema or pain with palpation, mottling of LE bilaterally GI: +BS, +ostomy functioning and intact, RLQ fistula with copious yellow/brown output MSK: RLE incision looks good, no drainage. NVI, pulses palpable, calves non- tender or edematous, b/l LE in waffle boots : cloudy yellow urine draining Skin: b/l heel wounds in waffle boots, +sacral decubitus ulcer stage II with venus in place : montaño with cloudy yellow urine Psych: alert to person/place, in hospital, intermittent confusion but easily re- oriented, pleasant and cooperative Results & Data Results & Data ([facility]) Vital Signs (Past 12 Hours) Vital Signs Temp Pulse Pulse Resp BP Pulse Ox 11/27/21 07:49 36.8 C 65 16 131/70 98 11/26/21 23:23 36.5 C 59 L 16 145/68 H 98 PG Care Time/CCT Total # of Minutes Spent Total Time Spent with Patient: Total time spent is greater than 50% in coordination of care (as documented) at patient's floor/unit and/or counseling patient: Coding Level of Care Code 17925 Subseq Hosp Care Lvl 2 Diagnoses Comfort measures only status Z51.5 Nausea R11.0 Pathological fracture, hip, unspecified, initial encounter for fracture M84.459A COPD with exacerbation J44.1 Stage 4 lung cancer C34.90 Abdominal wall fistula K63.2 Tachycardia R00.0 Hematuria R31.9 Abdominal abscess History of DVT (deep vein thrombosis) Z86.718 Cigarette smoker F17.210 Chronic kidney disease, stage 3a N18.3 Severe protein-calorie malnutrition E43 Hypothyroidism E03.9 Hypothyroidism type: acquired Depression F32.9 Active/Remission status: remission status unspecified Depression Type: major depressive disorder Major depression recurrence: unspecified whether recurrent DVT prophylaxis Z29.9 (1) Depression Active/Remission status: remission status unspecified Depression Type: major depressive disorder Major depression recurrence: unspecified whether recurrent Qualified Code(s): F32.9 - Major depressive disorder, single episode, unspecified (2) Hypothyroidism Hypothyroidism type: acquired Qualified Code(s): E03.9 - Hypothyroidism, unspecified
[2021-11-27] MEDS: CHECK SCOPOLAMINE PATCH PLACEMENT SCH ×3 (08:35→23:54)
[2021-11-27] MEDS: LORazepam 2 MG/1 ML VIAL IV SCH ×4 (09:16→20:31)
[2021-11-27] MEDS: LIDOCAINE 5% 1 PATCH TD SCH ×2 (09:33→09:34)
[2021-11-27] MEDS: NYSTATIN SUSP 500,000 U/5 ML UDC PO SCH ×4 (09:35→20:31)
[2021-11-27] MEDS: NICOTINE 14 MG/24 HR PATCH TD SCH (09:35)
[2021-11-27] MEDS: dexAMETHasone 4 MG in SYRINGE 0 ML IV SCH (09:42)
[2021-11-27] MEDS: DOCUSATE SODIUM/SENNA 50/8.6MG TAB PO SCH ×2 (10:02→20:31)
[2021-11-27] MEDS: MoRPHine SULF/NSS 250 MG/250 ML BTL IV SCH ×2 (18:23→18:41)
[2021-11-27] MEDS ORDERED: Nursing to Pharmacy Communication SCH (20:00)
[2021-11-27] MEDS: traZODone HCL 50 MG TAB PO SCH (20:30)
[2021-11-28] MEDS: MoRPHine SULFATE 4 MG/ML 1 ML CARP\\VIAL IV PRN (01:01)
[2021-11-28] MEDS: LORazepam 2 MG/1 ML VIAL IV PRN (04:30)
[2021-11-28] MEDS: CHECK SCOPOLAMINE PATCH PLACEMENT SCH ×2 (07:35→17:16)
[2021-11-28] MEDS: POLYETHYLENE (MIRALAX) 17 GM PACK PO SCH (07:35)
[2021-11-28] MEDS: LORazepam 2 MG/1 ML VIAL IV SCH ×4 (07:37→20:12)
[2021-11-28] MEDS: DOCUSATE SODIUM/SENNA 50/8.6MG TAB PO SCH ×2 (07:38→20:13)
[2021-11-28] MEDS: dexAMETHasone 4 MG in SYRINGE 0 ML IV SCH (07:38)
[2021-11-28] MEDS: LIDOCAINE 5% 1 PATCH TD SCH ×2 (07:40)
[2021-11-28] MEDS: NYSTATIN SUSP 500,000 U/5 ML UDC PO SCH ×4 (07:41→20:13)
[2021-11-28] MEDS: NICOTINE 14 MG/24 HR PATCH TD SCH (07:41)
--- NOTE | 2021-11-28 11:41 | Hospitalist Progress Note ---
Date of Service November 28, 2021 Assessment & Plan (1) Comfort measures only status: Plan: Patient began having nausea/vomiting on 11/18. KUB showed a distended stomach but no SBO; patient did not want further workup for this and request to be made comfortable and would like to get rest She continued to have emesis 11/19 of a brown liquid consistency and continued with worsening abdominal pain but responded well to JUN Phenergan and ongoing Morphine gtt with bolus Morphine Nausea * Phenergan scheduled currently and could consider continuing on D/C in oral form vs PRN dosing * Now tolerating a diet * Scopalamine patch continued Pain control * Morphine gtt continues, titrate PRN comfort -- Currently at 5 mg; Ativan IV Q4HWA * Continue Decadron 4 mg IV daily and can continue on DC Atropine gtt if needed. Given glycopyrrolate x 1 for secretions earlier in the week -- secretions seem to be doing better Not continuing on Eliquis given prior discussions with patient and daughter -- felt if she develops a clot/PE and passed that would be ok with patient Continue comfort measures, diet as tolerated (2) Nausea: Plan: See above continued nausea but no further emesis over past 24 hrs and continued jun phenergan (3) Pathological fracture, hip, unspecified, initial encounter for fracture: Plan: - Right sided; Either osteoporotic, or very well could be pathologic from bone mets from her metastatic cancer. 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 - Daughter reports changing the dressings 3-4x's each day. - Even with dressings in place stool leaks all over the abdominal wall (7) Tachycardia: Plan: - IMPROVED - Suspect 2nd to pain, advanced lung disease, anxiety, etc. - PE is theoretically possible but she has been on full-strength anticoagulation at home with Eliquis -- holding currently though -- She has h/o pericardial effusion - likely malignant - this could be present and certainly worse than previous. -- Would not pursue work-up such as CTA chest, echo, etc. --> Patient not wanting to pursue further work-up Rates better controlled with adequate pain/anxiety control as above (8) Hematuria: Plan: - Reported by pt's daughter. -- Would not pursue work-up given hospice status. - Patient will have montaño during this stay can continue on D/C given hospice -- Abx for UTI - covered with Augmentin until 11/17 - Cx with klebsiella oxytoca - No further hematuria however does have purulent drainage noted in montaño (9) Abdominal abscess: Plan: - Patient with prior h/o numerous intra-abdominal abscesses. -- CTs from spring 2020 showed such. - Was receiving antibiotics for them during that time, then ultimately d/c due to transitioned to hospice. - Has had intermittent fevers for weeks/months per daughter - low-grade - could be fevers from these abscesses, or her cancer, or other. - Simply treat any abdominal pain with pain meds. - Would not pursue work-up. (10) History of DVT (deep vein thrombosis): Plan: --> Discussed with patient/family at bedside 11/21 regarding risk of holding/hypercoag state/afib and risk for DVT/PE --> They would like to continue to hold off on taking this medication and understand increased risk - Eliquis will be D/C'd (11) Cigarette smoker: Plan: - Nicoderm patch 14mg/day. 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 Discussed with case management who is working this. Patient is currently stable to safely transfer to home once hospice arranged. Admission and Anticipated Discharge Date Admission Date: November 08, 2021 Subjective No acute events overnight. Reports she had some mild nausea but no vomiting. P ain is controlled with the morphine gtt. She reports her anxiety is doing better. She is looking forward to being able to return home on hospice services. Review of Systems Review of Systems: All systems reviewed & are unremarkable except as noted in Subjective Physical Exam Physical Exam: PHYSICAL EXAM General Appearance: frail elderly woman in [facility] who is alert and oriented HEENT: Head is normocephalic/atraumatic; Hearing grossly intact Neck: Supple; Trachea midline Heart: Regular rhythm; tachycardic Lungs: CTA in all lung das bilaterally; Respirations unlabored; Neg accessory muscle use Abdomen: Positive BS x 4 quadrants; + ostomy Extremities: Neg cyanosis or edema Neurological: Speech clear Psychiatric: Mood appropriate Skin: Normal Color; Warm/Dry Results & Data Results & Data ([facility]) Vital Signs (Past 12 Hours) Vital Signs Temp Pulse Resp BP Pulse Ox 11/28/21 07:50 36.6 C 78 16 105/59 L 98 PG Care Time/CCT Total # of Minutes Spent Total Time Spent with Patient: Total time spent is greater than 50% in coordination of care (as documented) at patient's floor/unit and/or counseling patient: Coding Level of Care Code 45908 Subseq Hosp Care Lvl 3 Diagnoses Comfort measures only status Z51.5 Nausea R11.0 Pathological fracture, hip, unspecified, initial encounter for fracture M84.459A COPD with exacerbation J44.1 Stage 4 lung cancer C34.90 Abdominal wall fistula K63.2 Tachycardia R00.0 Hematuria R31.9 Abdominal abscess History of DVT (deep vein thrombosis) Z86.718 Cigarette smoker F17.210 Chronic kidney disease, stage 3a N18.3 Severe protein-calorie malnutrition E43 Hypothyroidism E03.9 Hypothyroidism type: acquired Depression F32.9 Depression Type: major depressive disorder Major depression recurrence: unspecified whether recurrent Active/Remission status: remission status unspecified DVT prophylaxis Z29.9 (1) Hypothyroidism Hypothyroidism type: acquired Qualified Code(s): E03.9 - Hypothyroidism, unspecified (2) Depression Depression Type: major depressive disorder Major depression recurrence: unspecified whether recurrent Active/Remission status: remission status unspecified Qualified Code(s): F32.9 - Major depressive disorder, single episode, unspecified
[2021-11-28] MEDS: traZODone HCL 50 MG TAB PO SCH (20:14)
[2021-11-29] MEDS ORDERED: PROMETHAZINE HCL 12.5 MG/10 ML UDP PO SCH
[2021-11-29] MEDS ORDERED: LORazepam 1 MG TAB SL SCH ×2
[2021-11-29] MEDS ORDERED: LIDOCAINE 5% 1 PATCH TD SCH ×2
[2021-11-29] MEDS: CHECK SCOPOLAMINE PATCH PLACEMENT SCH ×2 (00:03→08:17)
[2021-11-29] MEDS: NICOTINE 14 MG/24 HR PATCH TD SCH (08:13)
[2021-11-29] MEDS: SCOPOLAMINE 1 MG TDSY TD SCH (08:15)
[2021-11-29] MEDS: POLYETHYLENE (MIRALAX) 17 GM PACK PO SCH ×2 (08:17→08:23)
[2021-11-29] MEDS: DOCUSATE SODIUM/SENNA 50/8.6MG TAB PO SCH (08:18)
[2021-11-29] MEDS: LIDOCAINE 5% 1 PATCH TD SCH ×2 (08:19)
[2021-11-29] MEDS: NYSTATIN SUSP 500,000 U/5 ML UDC PO SCH ×2 (08:19→12:31)
[2021-11-29] MEDS: dexAMETHasone 4 MG in SYRINGE 0 ML IV SCH (08:20)
[2021-11-29] MEDS: LORazepam 2 MG/1 ML VIAL IV SCH ×2 (08:28→12:31)
[2021-11-29] MEDS: MoRPHine SULFATE 4 MG/ML 1 ML CARP\\VIAL IV PRN (14:00)
--- NOTE | 2021-11-29 16:50 | Discharge Summary ---
Date of Service November 29, 2021 Admission HPI Per Admitting Provider Unfortunate 81yo female with chronic hypoxic respiratory failure 2nd to COPD and lung cancer, ongoing tobacco dependence, stage 4 lung ca, intra-abdominal abscesses, enterocutaneous fistula, colostomy status, and current hospice status who presents from home after suffering a fall this am in her living room. Patient has been on hospice since spring 2020 and over the last few weeks she has had no major changes in her overall health. This am, while walking to her couch, she simply tripped/fell/lost her footing and landed on the ground. Her right shoulder and right hip bore the brunt of the impact. She had immediate pain in these 2 locations and was unable to get up off the floor. She is not sure if she hit her head. Preceding the fall she denies any dizziness, lightheadedness, chest pain or other cardiopulmonary symptoms. In addition, for the past 24 hours, she has had worsening cough above her usual baseline. She feels mildly more short of breath than baseline. She is wheezing. Denies any fever yesterday/today, but does get intermittent fevers to about 100 degrees 1-2x's a week. They have attributed these to her intra-abdominal abscesses. These fevers are chronic. Denies any sick contacts. The hospice nurses who come to her home are masked at all times. Finally, both she and her daughter confirm they wish to proceed with ORIF of the right hip fracture for pain control/palliative purposes, and their goal is for her to return home with hospice if at all possible. She has been using liquid morphine prn for abdominal pain, and uses it at bedtime scheduled. Principal Diagnosis Right Hip Fracture; Nausea/Vomiting; Stage 4 Lung CA; Comfort Measures/Hospice Discharge Exam PHYSICAL EXAM General Appearance: frail elderly woman in NAD who is alert and oriented HEENT: Head is normocephalic/atraumatic; Hearing grossly intact Neck: Supple; Trachea midline Heart: Regular rhythm; tachycardic Lungs: CTA in all lung das bilaterally; Respirations unlabored; Neg accessory muscle use Abdomen: Positive BS x 4 quadrants; + ostomy Extremities: Neg cyanosis or edema Neurological: Speech clear Psychiatric: Mood appropriate Skin: Normal Color; Warm/Dry Discharge Data Allergies Allergy/AdvReac Type Severity Reaction Status Date / Time nickel Allergy Intermediate Rash Verified 11/08/21 10:52 venlafaxine AdvReac Intermediate Hypertensio Verified 11/08/21 10:52 n,Headache clarithromycin AdvReac Mild Nausea/Vomi Verified 11/08/21 10:52 ting codeine AdvReac Mild UPSET Verified 11/08/21 10:52 STOMACH hydrocodone AdvReac Mild Nausea/Vomi Verified 11/08/21 10:52 ting metronidazole [From Flagyl] AdvReac Mild Gastrointestinal Verified 11/08/21 10:52 Upset Consultations 11/08/21 13:31 ED Decision to Admit Stat 11/08/21 16:56 Consult Orthopedic Surgery Routine Procedures Performed Operation Date: 11/09/21 09:40 Actual Procedures p Intramedullary nailing of right hip femur fracture - Douglas Hollsi MD Ordered Studies Hip/Pelvis X-Ray 11/08/21 09:55 XR hip RT 2V w pelvis CLINICAL HISTORY: fall, pain COMPARISON: CT of the abdomen and pelvis March 04, 2021. FINDINGS: Note is made of an acute comminuted moderately displaced intertrochanteric fracture of the right femur. Fracture is angulated. Left hip arthroplasty is noted. No additional acute fractures are identified. Sacroiliac joints and symphysis pubis are intact. IMPRESSION: Acute moderately displaced comminuted intertrochanteric fracture of the right femur. ACT 112: Negative or not required by law. Electronically signed by: Александр Garay M.D. 11/08/2021 12:04 PM Shoulder X-Ray 11/08/21 09:55 RIGHT SHOULDER 3 VIEWS HISTORY: Right shoulder pain. fall, pain COMPARISON: None. FINDINGS: There is no fracture or dislocation. Soft tissues are unremarkable. The right clavicle is intact. The bones are osteopenic. Stable 7 mm lucent lesion within the right humeral neck. IMPRESSION: No fracture or dislocation within the right shoulder. ACT 112: Negative or not required by law. Electronically signed by: Bao Alcala M.D. 11/08/2021 12:16 PM Chest X-Ray 11/08/21 10:56 XR chest 1V portable CLINICAL HISTORY: weakness COMPARISON STUDY: Chest radiograph and chest CT February 04, 2021. FINDINGS: Left subclavian [id number] is in place. There are right neck surgical clips. Cardiac size is normal. No pneumothorax or pleural effusion is noted. There is emphysema. Interstitial thickening is unchanged. This is likely chronic. Mild bibasilar opacities are present. IMPRESSION: 1. Mild bibasilar opacities which favor atelectasis. 2. Emphysema. ACT 112: Negative or not required by law. Electronically signed by: Александр Garay M.D. 11/08/2021 12:[address] 11/08/21 13:59 CT head/brain wo con CLINICAL HISTORY: fall, ?head injury Technique: Contiguous axial CT images of the head were acquired from the base of the skull to the vertex without intravenous contrast administration. Images were viewed in brain, subdural and bone windows. Automated dose lowering techniques and/or adjustment according to patient size were utilized for this exam. Comparison: Comparison is made to CT head 02/04/2021 Findings: The ventricles, basal cisterns, and cerebral sulci are normal. There is no acute intracranial hemorrhage or evidence of acute territorial infarction. Neither mass effect, shift of the midline structures, nor abnormal extra-axial fluid collections are shown. Imaged portions of the paranasal sinuses and mastoid air cells are clear. The orbits appear normal. There are no acute fractures of the calvaria or scalp swelling. Impression: No acute intracranial hemorrhage, skull fractures, or scalp swelling. ACT 112: Negative or not required by law. Electronically signed by: Shawn Coronado M.D. 11/08/2021 4:07 PM Hip X-Ray 11/09/21 00:00 FL hip RT 2-3V CLINICAL HISTORY: Right hip intramedullary nail.Right hip fracture. COMPARISON STUDY: Right hip 11/08/2021. FLUOROSCOPY TIME: 1 minute and 34 seconds. FINDINGS: 4 fluoroscopic spot images of the right femur demonstrate an intramedullary jose with an interlocking femoral neck pin traversing the intertrochanteric fracture. Alignment is near-anatomic. The hardware appears intact. IMPRESSION: Fluoroscopic assistance provided for internal fixation of a right femoral intertrochanteric fracture. ACT 112: Negative or not required by law. Electronically signed by: Bao Alcala M.D. 11/09/2021 6:55 PM KUB X-Ray 11/18/21 11:14 KUB CLINICAL HISTORY: Generalized abdominal pain. Nausea and vomiting. FINDINGS: 2 AP, portable, supine abdominal radiographs are compared to study dated 03/07/2021 and correlated with abdominal CT dated 03/04/2021. An ostomy projects over the left lower quadrant. There is marked gaseous distention of the stomach. The bowel loops are otherwise normal as visualized. No evidence of intraperitoneal free air is seen on these supine images. There is advanced atherosclerotic calcification of the abdominal aorta and iliac arteries. Phleboliths are noted in the pelvis. The lung bases are clear as imaged. The tip of a central venous infusion port catheter is noted. The skeletal structures are osteopenic and appear intact. There is lumbosacral spondylosis. Postoperative change is seen in both hips. IMPRESSION: 1. There is marked gaseous distention of the stomach. 2. The bowel loops are normal as visualized. 3. Additional findings as above. Electronically signed by: Jeffry Sotomayor M.D. 11/18/2021 2:59 PM Hospital Course (1) Comfort measures only status: Plan to return home on hospice services. Had a few days of significant pain and vomiting and thought was going to pass away at the hospital. However, this improved and her symptoms stabilized. Patient ultimately wanted to return home on hospice Plan is to continue morphine gtt with bolus dosing as needed and titration to support comfort Continue JOSE E Ativan as anxiety seems to be significant for her and can titrate as needed Decadron IV daily to assist with bone pain (seems to do better with IV dosing) - Both Decadron and morphine gtt was sent on paper Rx to hospice agency so not on EMR med rec Ativan drops, Scopolamine, Lidocaine sent to pharmacy - not available until 11/30 so home pack from hospital pharmacy given Not continuing on Eliquis given prior discussions with patient and daughter -- felt if she develops a clot/PE and passed that would be ok with patient Continue comfort measures, diet as tolerated (2) Nausea: See above; Chronic nausea but no vomiting in days and has quite the appetite lately (3) Pathological fracture, hip, unspecified, initial encounter for fracture: - Right sided; Either osteoporotic, or very well could be pathologic from bone mets from her metastatic cancer. -- Reviewed PET scan from 2019 - no noted metastasis to bones at that time but could have progressed - Vit D low 12.9 - not taking much orals and fci benefit not there so stopped supplementatin - S/P Intramedullary nailing of right hip femur fracture on 11/09 - Douglas Hollis MD -- will need F/U 6 weeks from surgery (if she even wants to given comfort approach) - S/P 1 unit PRBC on 11/09 - WBAT RLL - Continue pain control -- Morphine as above (4) COPD with exacerbation: - Resolved; O2 for comfort - Has had atypical coverage; convert Levaquin to Augmentin more for urinary coverage -- treatment complete - Can use supportive medications if able to take orals - otherwise morphine/ativan (5) Stage 4 lung cancer: - On hospice at home with her daughter since 2020 (6) Abdominal wall fistula: - Enterocutaneous fistula; 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 - Even with dressings in place stool leaks all over the abdominal wall (7) Tachycardia: - IMPROVED - Suspect 2nd to pain, advanced lung disease, anxiety, etc. - PE is theoretically possible but she has been on full-strength anticoagulation at home with Eliquis -- holding currently though -- She has h/o pericardial effusion - likely malignant - this could be present and certainly worse than previous. -- Would not pursue work-up such as CTA chest, echo, etc. --> Patient not wanting to pursue further work-up Rates better controlled with adequate pain/anxiety control as above (8) Hematuria: - Reported by pt's daughter. -- Would not pursue work-up given hospice status. - Patient will have montaño during this stay can continue on D/C given hospice -- Abx for UTI - covered with Augmentin until 11/17 - Cx with klebsiella oxytoca (9) Abdominal abscess: - Patient with prior h/o numerous intra-abdominal abscesses. -- CTs from spring 2020 showed such. - Was receiving antibiotics for them during that time, then ultimately d/c due to transitioned to hospice. - Has had intermittent fevers for weeks/months per daughter - low-grade - could be fevers from these abscesses, or her cancer, or other. - Simply treat any abdominal pain with pain meds. - Would not pursue work-up. (10) History of DVT (deep vein thrombosis): --> Discussed with patient/family at bedside 11/21 regarding risk of holding/hypercoag state/afib and risk for DVT/PE --> They would like to continue to hold off on taking this medication and understand increased risk - Eliquis will be D/C'd (11) Cigarette smoker: - Nicoderm patch 14mg/day in house but if she wants to smoke she can continue as she says this helps her anxiety and ultimately can't worsen anything at this point minus just being a lung irritation...just as long as not on supplemental O2 (12) Chronic kidney disease, stage 3a: - STABLE on last draw; no further lab draws (13) Severe protein-calorie malnutrition: - NOTED - 2/2 stage 4 cancer (14) Hypothyroidism: - TSH WNL - Cont Synthroid if able to take orals (15) Depression: - Cont home meds including sleep aids if able to take (16) DVT prophylaxis: - Eliquis (on hold); Comfort --> NOT RESUMING GASTROENTEROLOGY MANAGER Total Time Total Time Spent Total Time Spent (In Minutes): Spent greater than 30 minutes preparing patient for discharge. This includes discussion with patient/family, assessment, intervention, medication reconc iliation, and coordination of care. Discharge Plan Discharge Items Patient Disposition: Hospice - Home Reason For Visit: RIGHT HIP FRACTURE, COPD EXACERBATION Discharge Diagnosis: IM Nail of Right HIp Fracture Activity: As commented below Weightbearing: Full weightbearing Weightbearing Comment: as tolerated with assistance Non-emergency contact: Primary Care Provider and Surgeon Call non-emergency contact if: you have any medication questions, your symptoms worsen and your pain is concerning for you Follow-up/Referrals: Zion Bartholomew MD [Primary Care Provider] - Douglas Hollis MD [Physician] - (Orthopedic follow-up 6 weeks from surgery date.) Diet: Heart Healthy Addtl Attending Provider Instructions: You have been hospitalized for a hip fracture which was surgically repaired. You may remain weight bearing as tolerated and per orthopedics, should have follow up in 6 weeks from surgery if you want. Comfort: - You were started on a morphine drip/pump that hospice will continue at home -- Currently you are getting Morpine 5 mg every hour as a continuous infusion -- It will be set up that you can have an additional 0.5 mg every 15 minutes as needed for worsening pain that you can hit a button for -- This can be adjusted as needed by the hospice agency - You will continue on Decadron 4 mg IV daily to help with bone pain - You will have a prescription for nausea medicine. We have been able to change this to just as needed and you are doing well. If you feel like the nausea is worsening you can start taking this regularly to prevent vomiting - We will also continue the Scopolamine patch to see if this helps keep your mucous and secretions under control - We will also give a prescription for Ativan drops to help with anxiety. This can be converted back to IV dosing if this does not seem to help at home and can be discussed with the hospice agency Some of the medications sent to your pharmacy that the hospice agency does not medicinal plant picker are not available until tomorrow. Therefore, we will be sending you home with some medications that will be labeled to use until your pharmacy has those medications. Home Medications: - As previously discussed the Eliquis (blood thinner) can be stopped. It has been a pleasure being a part of the medical team providing for you while you have been in the hospital and I wish you the best and that we have been able to focus on quality/comfort during this time. Take care. Addtl Restaurant Assistant Provider Instructions: May fully weightbear as tolerated on right leg. Pending Studies at Discharge: No Stand-Alone Forms: My [facility] Medications and DC Order Prescriptions: New promethazine 6.25 mg/5 mL Syrup 6.25 mg PO Q6H PRN (Reason: nausea and vomiting) 30 Days Qty: 473 RF: 0 lorazepam 2 mg/mL concentrate 1 mg PO Q4H 14 Days Qty: 42 RF: 0 lidocaine 5 % Adhesive Patch,Medicated 2 patch transdermal DAILY 14 Days Qty: 28 RF: 0 scopolamine base [Transderm-Scop] 1 mg over 3 days Patch 3 Day 1 mg transdermal Q72H 14 Days Qty: 5 RF: 0 sennosides-docusate sodium [Senokot-S] 8.6-50 mg Tablet 2 tab PO AMHS 14 Days Qty: 28 RF: 0 Continued levothyroxine [Synthroid] 100 mcg tablet 100 mcg PO DAILYBB Qty: 90 RF: 0 haloperidol 5 mg tablet 2.5 mg PO Q4H PRN (Reason: nausea/agitation) RF: 0 trazodone 100 mg tablet 150 mg PO HS RF: 0 phenazopyridine 100 mg tablet 100 mg PO BID RF: 0 pantoprazole 40 mg tablet,delayed release (DR/EC) 40 mg PO QAM RF: 0 hyoscyamine sulfate 0.125 mg tablet, sublingual 0.125 mg sublingual Q6H PRN (Reason: excess secretions) RF: 0 zolpidem 5 mg tablet 5 mg PO HS RF: 0 Discontinued Eliquis 5 mg tablet 5 mg PO BID Qty: 180 RF: 3 morphine concentrate 100 mg/5 mL (20 mg/mL) solution 15 mg sublingual Q4H PRN (Reason: Pain) RF: 0 alprazolam 0.5 mg tablet,disintegrating 0.5 mg PO Q4H PRN (Reason: Anxiety) RF: 0 Discharge Orders: Discharge Order (Routine); Ordered 11/29/21 Ordered By: Mercy Mancilla Admission Data Admit Date/Time: 11/08/21 14:08 Attending Provider: Wily Leyva Admit Provider: Jayy Ash Primary Care Provider: Zion Bartholomew Other Providers: [facility] ; Jayy Ash ; Nikunj Oshea Other Interventions: Discharge Summary Assessment (RN) Last Done: 11/29/21 11:56 Supervising Physician Co-Signing Physician Notes During face to face encounter, obtained summary of hospital stay, subjective findings, ane performed a physical examination. I discussed case and discharge planning with SHERRY Mancilla, and patient. I reviewed above note and agree with it. Patient will be discharged on on home hospice. Will continue to focus on comfort. Coding Level of Care Code D/C DAY MANAGEMENT >30 MINS Diagnoses Comfort measures only status Z51.5 Nausea R11.0 Pathological fracture, hip, unspecified, initial encounter for fracture M84.459A COPD with exacerbation J44.1 Stage 4 lung cancer C34.90 Abdominal wall fistula K63.2 Tachycardia R00.0 Hematuria R31.9 Abdominal abscess History of DVT (deep vein thrombosis) Z86.718 Cigarette smoker F17.210 Chronic kidney disease, stage 3a N18.3 Severe protein-calorie malnutrition E43 Hypothyroidism E03.9 Hypothyroidism type: acquired Depression F32.9 Active/Remission status: remission status unspecified Depression Type: major depressive disorder Major depression recurrence: unspecified whether recurrent DVT prophylaxis Z29.9
== END 2021-11-29 14:20 | disposition hospice, home (50) | DRG 480 ==
LOC: ED 09:14 → 3E 14:08 → SUATTDRO 14:08 → 3E 16:13